=== PATIENT | female | born 1975 | race Caucasian/White ===

== ENCOUNTER → 2018-08-15 15:11 | Outpatient (CLI) | payer BC, SELFPAY | PROVIDERS: Visit Provider Obstetrics & Gynecology | DX: Z12.4 Encounter for screening for malignant neoplasm of cervix (principal) | CPT/HCPCS: 88175; G0145 ==

== ENCOUNTER → 2019-03-04 | Outpatient (CLI) | payer OTHER, SELFPAY | END | disposition home or self-care (01) | LOC: WOBLAB 11:20 | PROVIDERS: Visit Provider Obstetrics & Gynecology | DX: N75.1 Abscess of Bartholin's gland (principal) | CPT/HCPCS: 87070; 87075; 87077; 87186; 87205 ==

== ENCOUNTER → 2019-10-11 | Outpatient (CLI) | payer BC, SELFPAY ==
[2019-10-11 17:23] LABS: Thyroid Stim Hormone (TSH) 1.99 uIU/mL (0.358-3.74)
[2019-10-15 16:52] LABS: HPV Reflexed? NOT INDICATED
== END | disposition home or self-care (01) ==
LOC: LABSPEC 11:29
PROVIDERS: Visit Provider Obstetrics & Gynecology
DX: N92.6 Irregular menstruation, unspecified (principal); Z12.4 Encounter for screening for malignant neoplasm of cervix
CPT/HCPCS: 36415; 84443; 88175; G0145

== ENCOUNTER 2019-12-05 11:19 | Emergency (ER) | payer BC, SELFPAY ==
[2019-12-05 11:20] VITALS: BP 134/67; PULSE 115; RESP 22; TEMP 37.8; O2SAT 97; BMI 20.7
--- NOTE | 2019-12-05 11:43 | ED.DCSUM_ITS ---
- ER Visit Summary Date of Service: 12/05/19 Chief Complaint: Cough, fever and body aches History of Present Illness: The patient is a 44 F no significant past medical history other than C-sections and prior pneumonia. She states yesterday morning she started having fever, nonproductive cough and body aches. She had nausea and vomiting x1 today. Denies diarrhea. No abdominal pain. No dysuria. She has no obvious known exposure her son is a rickshaw driver has transported COVID-19 positive patients. Physical Examination: Middle-aged female. No acute distress. Vital signs stable she does have a low-grade temperature 100.1. She did take antipyretic prior to arrival. She looks like she does not feel well she does not look septic or toxic. HEENT exam unremarkable. Moist with membranes. Posterior pharynx normal. Neck nontender no meningismus. No lymphadenopathy. Lungs cl ear to auscultation bilaterally. No rales, rhonchi or wheezing. Dry cough. Heart tachycardic rate about 110 no murmur. Abdomen soft nontender normal bowel sounds no peritoneal signs. Extremities she moves all 4. She is neurovascular intact. Calves are nontender without edema. No rashes. Back nontender. Neurologically she is awake alert with no focal motor deficits. Test Results: Chest x-ray portable 1 view read by myself and the radiologist shows a right upper lobe pneumonia. Emergency Department Course and Treatment: History and exam are consistent with a respiratory tract infection. Differential would include influenza, viral syndrome or COVID-19. Also pneumonia is in the differential some obtaining a chest x-ray. Discussed x-ray results with patient she is doing well at 12:20 PM. She is comfortable being discharged to home. I did call the [facility] and they are deferring any copious testing which I think is reasonable now that her chest x-ray is consistent with a pneumonia. She will be started on Levaquin and be treated for 5 days. Treatment Plan: Levaquin daily. Alternate Tylenol Motrin for fever. Plenty of fluids and rest. Follow-up if not improving or return emergency department if feeling much worse. Disposition: discharge Impression: Acute fever and cough secondary to right upper lobe pneumonia This note was generated with [employer] dictation software. It may contain incorrect words, spelling, and punctuation that were not noted in review of the chart prior to signing ED Disposition - Plan for ED Patient: Referrals: Yarelis Fitzpatrick DO [Primary Care Provider] -
--- NOTE | 2019-12-05 11:45 | RAD_ITS ---
STUDY: X-RAY CHEST REASON FOR EXAM: Female, 44 years old. FEVER, COUGH, FATIGUE, BODY ACHES X24 HOURS TECHNIQUE: Single AP portable view of the chest. COMPARISON: None. FINDINGS: Ill-defined airspace opacity is seen in the right upper lobe suggesting pneumonia. There is no demonstrated pleural abnormality. Normal size heart. Normal mediastinum and shay. Normal visualized pulmonary arteries. Normal visualized aortic arch and descending thoracic aorta. Normal visualized thoracic spine. Normal visualized ribs, clavicles, and shoulders. There is no demonstrated abnormality of the visualized soft tissue structures of the upper abdomen. RAD/Chest 1 View (Portable) IMPRESSION: Right upper lobe pneumonia. Electronically Signed: Les Lynch, at 12:06 EDT Tel , Service support ,
[2019-12-05 12:03] VITALS: BP 134/67; PULSE 115; RESP 22; TEMP 37.8; O2SAT 97
--- NOTE | 2019-12-05 12:24 | ED.DEP ---
ED Disposition - Plan for ED Patient: Disposition: Home or Assisted Living Instructions: ED PNEUMONITIS Adult Prescriptions: Levofloxacin [Levaquin] 750 mg PO DAILY #4 tab Prescription Printed Referrals: Yarelis Fitzpatrick DO [Primary Care Provider] - 1 Week if not improving Additional Instructions: Plenty of fluids and rest. Alternate Tylenol Motrin for fever or body aches. Levaquin daily for a total of 5 days you were given your first dose here so he can start that tomorrow. Follow-up with your doctor if not improving return to the emergency department if you feel much worse.
[2019-12-05] MEDS: levoFLOXacin 750 MG Tablet PO (12:40)
--- NOTE | 2019-12-05 12:44 | NURSING ---
DR XIAO PAGED
== END 2019-12-05 12:45 | disposition home or self-care (01) ==
LOC: ED 12:39
PROVIDERS: Emergency Provider Emergency Medicine; PCP Internal Medicine
DX: J18.9 Pneumonia, unspecified organism (principal)
CPT/HCPCS: 71045; 87804; 99282

== ENCOUNTER → 2019-12-23 14:11 | Outpatient (CLI) | payer BC, SELFPAY ==
[2019-12-05 11:20] VITALS: BMI 20.7
--- NOTE | 2019-12-23 14:13 | CT_ITS ---
STUDY: CT CHEST WITH CONTRAST REASON FOR EXAM: Female, 44 years old. IMMUNODEFICIENCY -- PNEUMONIA X3 WKS AGO -- NEG COVED TEST RADIATION DOSAGE (If Supplied By Facility): CTDIvol = ( 9.97 ) mGy, DLP = ( 5.67 ) mGycm TECHNIQUE: Transaxial imaging was performed following intravenous administration of IV 100mL Isovue-300. Multiplanar coronal and sagittal images were reformatted. Individualized dose optimization techniques were used for this CT. COMPARISON: Comparison is made with prior study dated February 25, 2013 and prior radiograph dated December 05, 2019. FINDINGS: Infiltration in the posterior segment of the right upper lobe. This has progressed as compared to prior CT scan. Mild increased markings in the posterior aspect of the left upper lobe. There is a noncalcified 6.8 mm nodule in the medial portion of the left upper lobe. There is also evidence of a 5.3 mm nodule in the superior segment of the right upper lobe as seen on axial image #35. This also exhibit increased markings with areas of confluence in the anterior aspect of the right middle lobe. This has progressed as compared to prior study. 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 This is unchanged. There is no demonstrated pleural abnormality. Normal heart and pericardium. Normal mediastinum. Normal hilar regions. Normal enhanced pulmonary arteries. Normal aorta arch and descending thoracic aorta. Normal osseous structures. There is no demonstrated abnormality of the visualized upper abdomen. CT/Chest WITH Contrast IMPRESSION: Interval increase in infiltration in the right upper lobe as described. Stable examination otherwise. Electronically Signed: Luis Rossi, at 15:15 EDT , Service support ,
== END ==
PROVIDERS: PCP Internal Medicine; Referring Provider Nurse Practitioner; Visit Provider Nurse Practitioner
DX: D84.9 Immunodeficiency, unspecified (principal)
CPT/HCPCS: 71260; Q9967

== ENCOUNTER 2020-09-12 09:57 | Emergency (ER) | payer BC, SELFPAY ==
[2020-09-12 10:00] VITALS: BP 156/95; PULSE 106; RESP 17; TEMP 38.5; O2SAT 96; BMI 22.9
--- NOTE | 2020-09-12 10:17 | RAD_ITS ---
STUDY: X-RAY CHEST REASON FOR EXAM: Female, 45 years old. Cough and fever. Body aches. COVID 19 infection June. TECHNIQUE: Single AP portable view of the chest. COMPARISON: Chest, 12/05/2019. FINDINGS: The lungs are well-expanded. There is persistent scarring in the right lung apex unchanged from prior study. There is no new infiltrate or mass. There is no demonstrated pleural abnormality. Normal size heart. Normal mediastinum and shay. Normal visualized pulmonary arteries. Normal visualized aortic arch and descending thoracic aorta. The thoracic spine is obscured by the mediastinum. Normal visualized ribs, clavicles, and shoulders. There is no demonstrated abnormality of the visualized soft tissue structures of the upper abdomen. RAD/Chest 1 View (Portable) IMPRESSION: Stable scarring in the right lung apex. There is no acute cardiopulmonary disease. Electronically Signed: David Loyola DO at 11:24 EST Tel [phone], Service support ,
--- NOTE | 2020-09-12 10:20 | ED.DCSUM_ITS ---
- ER Visit Summary Date of Service: 09/12/20 Chief Complaint: Fever, cough and body aches. History of Present Illness: The patient is a 45 F past medical history of episodes of pneumonia in the past and prior pleural effusion from pneumonia. They states since she has had a fever as high as 103 with diffuse body aches. Cough of green sputum. Mild nausea. No diarrhea no dysuria. She actually states she had very limited symptomatic Covid in June. She went to an urgent care had a cough and was told she tested Covid positive. She denies any abdominal pain. She has chest pain with coughing. She has no history of DVT or PE. She has had no recent travel, surgery or immobilization. No leg pain or swelling. No hemoptysis. Physical Examination: Middle-aged female vital signs stable she does have a temperature 101.3. Pulse ox 96% on room air no signs of hypoxia. H EENT exam unremarkable. Neck nontender no lymphadenopathy. Lungs dry cough but no rales, rhonchi or wheezing. Equal symmetrical. Heart tachycardic rate about 110 no murmur. Abdomen soft nontender normal bowel sounds no peritoneal signs. Patient moving all 4 extremities. Calves nontender without edema or cords. Neurologically she is awake alert with no focal motor deficits. Back nontender. Skin is unremarkable. Test Results: X-ray portable 1 view interpreted by myself shows right upper lung scar tissue but I do believe there may be a right upper lobe infiltrate also. It does appear to be some unchanged from prior chest x-ray. Normal cardiac silhouette mediastinum. Radiologist also read the film he believes is scar tissue. However the patient does have a fever and a cough and symptoms consistent with pneumonia so clinically I do think this is pneumonia. CBC shows an elevated white count of 25,000 hemoglobin 14 no bands chemistries normal normal creatinine and gap. Influenza test was negative. COVID-19 was negative also. That was the rapid antigen. Repeat exam patient is feeling better after IV fluids and IV Toradol. Repeat exam at 12:15 PM she is resting more comfortably. She had I discussed all of her test results and had previously gone over the x-ray with her she also feels she has pneumonia and she has had numerous times in the past. She will be started on Levaquin in the emergency department p.o. and she is comfortable being discharged home. Her vital signs are stable and she is nonhypoxic. Emergency Department Course and Treatment: Middle-aged female with symptoms most likely consistent with pneumonia or bronchitis. She will be retested for Covid and also influenza. She will receive IV fluids and Toradol for fever and body aches. Treatment Plan: For outpatient pneumonia with Levaquin daily. Tylenol and Motrin. Plenty of fluids and rest. Follow-up if not improving. Return if feeling worse for possible admission. Disposition: Discharge Impression: Acute fever and body aches secondary to right upper lobe pneumonia Leukocytosis This note was generated with [employer] dictation software. It may contain incorrect words, spelling, and punctuation that were not noted in review of the chart prior to signing ED Disposition - Plan for ED Patient: Referrals: Yarelis Fitzpatrick DO [Primary Care Provider] -
[2020-09-12] MEDS: Ketorolac 30 MG/ML Syringe IV (10:47)
[2020-09-12] MEDS: 0.9% Normal Saline 1,000 ML 1000 ML IV (10:47)
[2020-09-12 10:48] VITALS: BP 162/83; PULSE 106; RESP 28
[2020-09-12 11:06] LABS: Absolute Lymphocyte Count 1.33 X10^3/uL (0.83-4.51); Basophil# 0.06 X10^3/uL; Basophil% 0.2 % (0-1); Eosinophil# 1.79 X10^3/uL; Eosinophils% 7.1 % (0-5); Hematocrit 42.6 % (37-47); Hemoglobin 14.1 g/dL (12.0-15.0); Lymphocyte # 1.33 X10^3/ul (4.0); Lymphocyte % 5.2 % (19-41); Mean Corp Hgb Conc 33.1 g/dL (32-36); Mean Corpuscular Hgb 27.4 pg (27.0-32.0); Mean Corpuscular Volume 82.9 fL (81-99); Mean Platelet Vol. 9.9 fl (6.2-12.0); Monocyte# 2.01 X10^3/uL; Monocyte% 7.9 % (0-10); NRBC Flagged by Analyzer 0 % (0-5); Neutrophil % 78.9 % (47-70); POSITIVE DIFFERENTIAL YES; POSITIVE MORPHOLOGY YES; Platelet Count 358 K/mm3 (150-450); RBC Distribution Width CV 13.8 % (11.6-14.6); RBC Distribution Width SD 41.9 fl (35.1-43.9); Red Blood Count 5.14 M/mm3 (4.2-5.4); White Blood Count 25.4 K/mm3 (4.4-11.0)
[2020-09-12 11:20] LABS: Anion Gap 9 (5-15); BUN 11 mg/dL (7-18); BUN/Creat Ratio 14.7 RATIO (10-20); Chloride 101 mmol/L (98-107); Creatinine, Serum 0.75 mg/dL (0.55-1.02); Differential Indicated SCAN CRITERIA MET; EST Glomerular Filtration Rate 89 mL/min (>60); Est Glom Filt Rate - Afr Amer 107 mL/min (>60); Estimated Creatinine Clearance 86.81 ml/min; Glucose 86 mg/dL (74-106); Potassium 3.8 mmol/L (3.5-5.1); Sodium Level 136 mmol/L (136-145)
[2020-09-12 11:31] LABS: Differential Comment SCANNED
[2020-09-12 12:13] VITALS: BP 144/80; PULSE 101; RESP 26
--- NOTE | 2020-09-12 12:21 | ED.DEP ---
ED Disposition - Plan for ED Patient: Disposition: Home or Assisted Living Instructions: ED Pneumonia (Adult) Prescriptions: Levofloxacin [Levaquin] 750 mg PO DAILY #6 tab Prescription Printed Referrals: Yarelis Fitzpatrick DO [Primary Care Provider] - 3-5 Days Additional Instructions: Plenty of fluids and rest. Tylenol and Motrin for fever and body aches. Follow-up your primary care physician next 3 to 5 days to ensure you are improving. Return emergency department if you are feeling a lot worse. The antibiotic Levaquin once a day till finished.
[2020-09-12] MEDS: levoFLOXacin 750 MG Tablet PO (12:31)
[2020-09-12 12:32] VITALS: BP 144/81; PULSE 96; RESP 24; O2SAT 92
== END 2020-09-12 12:36 | disposition home or self-care (01) ==
PROVIDERS: Emergency Provider Emergency Medicine; PCP Internal Medicine
DX: J18.9 Pneumonia, unspecified organism (principal); D72.829 Elevated white blood cell count, unspecified; Z87.01 Personal history of pneumonia (recurrent); Z79.899 Other long term (current) drug therapy
CPT/HCPCS: 71045; 80048; 85025; 87426; 87804; 96361; 96374; 99285; J7030

== ENCOUNTER → 2021-03-31 09:35 | Outpatient (CLI) | payer BC, SELFPAY ==
--- NOTE | 2021-03-30 16:30 | BI_ITS ---
MAMMOGRAPHY - BILATERAL SCREENING REASON FOR EXAM: Female, 45 years old. Routine annual screening examination. PERTINENT HISTORY: Non-contributory. TECHNIQUE: Digital bilateral breast pierce (3D mammographic acquisition) in the CC and MLO projections. 2-D mediolateral oblique (MLO) and craniocaudad (CC) views of both breasts were obtained. An exaggerated craniocaudad view of the right breast was obtained as well. CAD: Full Field Digital Mammography with Computer Added Detection was performed. COMPARISON: Comparison is made with prior study dated 01/05/2017 and 12/18/2014. FINDINGS: Breast Composition: The breasts are extremely dense, which lowers the sensitivity of mammography. There is a 2.9 cm x 2.5 cm well-defined nodular density in the the lateral axillary region of the right breast. Correlation with ultrasound is recommended. No other significant abnormalities are identified. BI/SCRN MAMM (CAD)W/PIERCE BILAT IMPRESSION: 2.5 cm x 2.9 cm well-defined nodular density in the axillary region of the right breast as described. Correlation with ultrasound is recommended. ASSESSMENT CATEGORY: BIRADS Category 0: Incomplete. Need additional imaging evaluation. A letter regarding these results will be sent to the patient by the facility within 30 days. Approximately 10% of breast cancers are not detected by mammography. A normal mammogram should not delay biopsy of a clinically suspicious abnormality. [id number] Electronically Signed: Luis Rossi MD at 8:20 EDT , Service support ,
== END ==
PROVIDERS: PCP Internal Medicine; Referring Provider Obstetrics & Gynecology; Visit Provider Obstetrics & Gynecology
DX: Z12.31 Encounter for screening mammogram for malignant neoplasm of breast (principal)
CPT/HCPCS: 77063; 77067

== ENCOUNTER → 2021-04-01 09:05 | Outpatient (CLI) | payer BC, SELFPAY ==
--- NOTE | 2021-04-01 09:08 | US_ITS ---
STUDY: ULTRASOUND BREAST - RIGHT REASON FOR EXAM: Female, 45 years old. Abnormal screening mammogram. TECHNIQUE: Axial and longitudinal images of the RIGHT breast were performed with a high resolution ultrasound transducer. # OF IMAGES: 23 COMPARISON: Comparison is made with prior mammogram dated 03/30/2021. FINDINGS: RIGHT Breast: The mammographic abnormality corresponds to a 2.4 cm x 2.5 cm x 1.7 cm cyst at the 9 to 10 o''clock position of the breast. This is at 6 cm from the nipple. US/Breast Limited Unilateral IMPRESSION: The mammographic abnormality corresponds to 2.4 cm x 2.5 cm x 1.7 cm cyst. ASSESSMENT CATEGORY: BIRADS Category 2: Benign. A letter regarding these results will be sent to the patient by the facility within 30 days. Electronically Signed: Luis Rossi MD at 9:40 EDT , Service support ,
== END ==
PROVIDERS: PCP Internal Medicine; Referring Provider Obstetrics & Gynecology; Visit Provider Obstetrics & Gynecology
DX: N63.10 Unspecified lump in the right breast, unspecified quadrant (principal)
CPT/HCPCS: 76642

== ENCOUNTER → 2022-04-08 | Outpatient (CLI) | payer OTHER, SELFPAY ==
--- NOTE | 2022-04-08 08:22 | BI_ITS ---
MAMMOGRAPHY - BILATERAL SCREENING REASON FOR EXAM: Female, 46 years old. Routine annual screening examination. PERTINENT HISTORY: Non-contributory. TECHNIQUE: Digital bilateral breast pierce (3D mammographic acquisition) in the CC and MLO projections. 2-D mediolateral oblique (MLO) and craniocaudad (CC) views of both breasts were obtained. CAD: Full Field Digital Mammography with Computer Added Detection was performed. COMPARISON: Comparison is made with prior study of 03/30/2021 and 01/05/2017. FINDINGS: Breast Composition: The breasts are extremely dense, which lowers the sensitivity of mammography. The previously seen nodular density in the axillary region of the right breast has decreased in size. It presently measures 1.8 cm x 1.9 cm. Prior ultrasound demonstrated this to be a cyst. No other significant abnormalities are identified. BI/SCRN MAMM (CAD)W/PIERCE BILAT IMPRESSION: Interval decrease in size of the nodular density in the axillary region of the right breast. Yearly follow-up mammogram recommended. (A) ASSESSMENT CATEGORY: BIRADS Category 2: Benign. A letter regarding these results will be sent to the patient by the facility within 30 days. Approximately 10% of breast cancers are not detected by mammography. A normal mammogram should not delay biopsy of a clinically suspicious abnormality. [id number] Electronically Signed: Luis Rossi MD at 9:29 EDT ,
== END | disposition home or self-care (01) ==
PROVIDERS: PCP Internal Medicine; Visit Provider Obstetrics & Gynecology
DX: Z12.31 Encounter for screening mammogram for malignant neoplasm of breast (principal)
CPT/HCPCS: 77063; 77067

== ENCOUNTER → 2022-04-26 | Outpatient (CLI) | payer OTHER, SELFPAY ==
--- NOTE | 2022-04-26 17:50 | RAD_ITS ---
STUDY: X-RAY CHEST REASON FOR EXAM: Female, 46 years old patient with asthmatic bronchitis. TECHNIQUE: PA and lateral views of the chest. COMPARISON: Chest radiograph dated 09/12/2020. FINDINGS: The lungs are hyperexpanded. There is prominence of bronchovascular markings. There is patchy left basilar groundglass attenuation and may represent pneumonia. There is no demonstrated pleural abnormality. Normal size heart. Normal mediastinum and shay. Normal visualized pulmonary arteries. Normal visualized aortic arch and descending thoracic aorta. There is demineralization of the osseous structures. Normal visualized ribs, clavicles, and shoulders. There is no demonstrated abnormality of the visualized soft tissue structures of the upper abdomen. RAD/Chest PA and Lateral IMPRESSION: Left basilar airspace disease suggests possible pneumonia. Electronically Signed: Mónica Werner MD at 4:43 EDT ,
== END | disposition home or self-care (01) ==
LOC: RAD 17:46
PROVIDERS: PCP Internal Medicine; Referring Provider Nurse Practitioner Family; Visit Provider Nurse Practitioner Family
DX: J45.909 Unspecified asthma, uncomplicated (principal)
CPT/HCPCS: 71046

== ENCOUNTER 2022-11-06 22:00 | Emergency (ER) | payer OTHER, SELFPAY ==
[2022-11-06 22:01] VITALS: BP 194/94; PULSE 93; RESP 16; TEMP 36.6; O2SAT 99; BMI 23.3
[2022-11-06 22:34] LABS: Bacteria 0 SEEN /hpf (None Seen); Mucous, Urine 0 SEEN /hpf (<or=2+); White Blood Cells 0 SEEN /hpf (0-5)
[2022-11-06 22:36] LABS: Absolute Lymphocyte Count 3.22 X10^3/uL (0.83-4.51); Absolute Neutrophil Count 8.5 X10^3/uL (2.0-7.7); Basophil# 0.06 X10^3/uL; Basophil% 0.5 % (0-1); Hematocrit 43.7 % (37-47); Hemoglobin 13.9 g/dL (12.0-15.0); Lymphocyte # 3.22 X10^3/ul (0.83-4.51); Lymphocyte % 25.4 % (19-41); Mean Corp Hgb Conc 31.8 g/dL (32-36); Mean Corpuscular Hgb 26.5 pg (27.0-32.0); Mean Corpuscular Volume 83.4 fL (81-99); Mean Platelet Vol. 9.2 fl (6.2-12.0); Monocyte# 0.86 X10^3/uL; Monocyte% 6.8 % (0-10); NRBC Flagged by Analyzer 0 % (0-5); Neutrophil # 8.48 X10^3/uL (2.7-7.7); Neutrophil % 66.8 % (47-70); Platelet Count 502 K/mm3 (150-450); RBC Distribution Width CV 14.6 % (11.6-14.6); Red Blood Count 5.24 M/mm3 (4.2-5.4); White Blood Count 12.7 K/mm3 (4.4-11.0)
[2022-11-06 22:42] LABS: Color, Urine Yellow (Yellow); Glucose, Dipstick 50 mg/dl (Normal); Ketone-Dipstick Negative (Negative); Leukocyte Esterase-Dipstick Negative /ul (Negative); Nitrite-Dipstick Negative (Negative); Occult Blood-Urine 10 /ul (Negative); Protein-Dipstick 30 mg/dl (Negative); Urine Bilirubin Dipstick Negative (Negative); Urine Clarity Sl. Cloudy (Clear); Urine Urobilinogen 1 mg/dl (Normal); Urine pH 6.5 (5.0 - 8.0)
[2022-11-06 22:44] LABS: Amorphous Sediment 1+ URATE; Red Blood Cells-Urine 0-5 SEEN /hpf (0-5); Squamous Epithelial Cells - UA 0-5 SEEN /hpf (5-10)
[2022-11-06 22:46] LABS: Internal QC Validated? YES +Cl - CLEAR BKGD; Pregnancy, Serum, hCG Quali. NEGATIVE Negative
[2022-11-06 22:49] LABS: Anion Gap 8 (5-15); BUN 11 mg/dL (7-18); BUN/Creat Ratio 14.5 RATIO (10-20); Calcium,Total 9.6 mg/dL (8.5-10.1); Chloride 107 mmol/L (98-107); Creatinine, Serum 0.76 mg/dL (0.55-1.02); EST Glomerular Filtration Rate 86 mL/min (>60); Est Glom Filt Rate - Afr Amer 104 mL/min (>60); Estimated Creatinine Clearance 83.82 ml/min; Glucose 177 mg/dL (74-106); Potassium 3.6 mmol/L (3.5-5.1); Sodium Level 142 mmol/L (136-145)
--- NOTE | 2022-11-06 23:07 | ED.VIS.GI ---
HPI HPI - GI History of Present Illness Chief Complaint: Abd Pain Narrative Narrative: Patient presenting with left-sided flank and abdominal pain but also states the right side is hurting. She states that it appears to radiate into both hips and down her legs. This started acutely at 1300. She is having difficulty finding a position of comfort. She has not had a fever. She denies any urinary complaints. She states he has a history of kidney stone when she was 16 has not had one since. No constipation or diarrhea. No vaginal complaints. PFSH PFSH Home Medications doxycycline hyclate 100 mg tablet 100 mg PO DAILY 11/06/22 [History Last Taken Unknown] ondansetron 4 mg disintegrating tablet 4 mg PO Q8H PRN PRN Nausea #14 tabs 11/07/22 [Rx Last Taken Unknown] oxycodone-acetaminophen 5 mg-325 mg tablet (Percocet) 1 tab PO Q6H PRN pain 3 days #12 tabs 11/07/22 [Rx Last Taken Unknown] Allergy/AdvReac Type Severity Reaction Status Date / Time No Known Allergies Allergy Verified 11/06/22 22:02 Social History Smoking Status: Never smoker ROS ROS ED Review of Systems ROS Unobtainable: Denies due to encephalopathy Constitutional Constitutional ED: Denies chills or fever(s) ENT ENT ED: Denies rhinorrhea or sore throat Cardiovascular Cardiovascular: Denies palpitations or racing heartbeat Respiratory/Chest Respiratory/Chest: Denies cough or dyspnea Gastrointestinal Gastrointestinal: Reports abdominal pain; Denies diarrhea or melena Genitourinary Genitourinary ED: Denies dysuria Musculoskeletal Musculoskeletal: Reports back pain; Denies arthralgias Integumentary Denies abscess Neurologic Neurologic: Denies headache(s) or paresthesias Psychiatric Psychiatric: Denies anxiety EXAM Physical Exam Const Vital Signs: 11/06/22 22:01 11/07/22 00:00 Temperature 97.8 F Temperature Source Temporal Pulse Rate 93 83 Respiratory Rate 16 16 Blood Pressure 194/94 H 171/88 H Blood Pressure Mean 127 115 Pulse Ox 99 97 Oxygen Delivery Method Room Air Room Air Positive well nourished General Appearance ED: NAD; Negative for pallor HEENT Reports moist mucous membranes normocephalic Eyes PERRL Resp normal respiratory effort Cardio regular rate and regular rhythm GI Palpation: tender LLQ Back/Spine General Back: CVA tenderness left Neuro CN's II-XII intact bilaterally Sensorium / Orientation: alert Motor Exam: strength 5/5 throughout Psych mental status grossly normal Skin General Skin Exam: Negative for jaundice or pallor MDM MDM MDM Narrative Medical decision making narrative: Patient presenting with abdominal pain she states is left greater than right. She has mild CVA tenderness on the left. There is some left lower quadrant tenderness to palpation. This is acute in onset. Differential diagnosis includes kidney stone, ureteral calculi, diverticulitis, colitis, ovarian torsion. Patient medicated with morphine, Zofran, Toradol and her pain did improve. She states it still about a 6 or 7 but it is very tolerable at this point. She is lying comfortably in the bed. CBC obtained to assess white blood cell count, hemoglobin, differential. BMP to assess renal function electrolytes. Serum hCG to assess for . Urinalysis for occult blood and infection. CBC shows a slight elevated white blood cell count at 12.7. Hemoglobin is stable. No left shift. White blood cell count is likely reactive. BMP shows normal renal function electrolytes. Glucose elevated at 177 without anion gap. Urinalysis negative for infection this does show 10 occult blood. At this point I believe the patient had a kidney stone the way she was moving around the room and pacing. CT of the abdomen pelvis with out contrast was obtained and it shows a 2 mm distal ureteral calculi without obstruction. No hydronephrosis. There is no evidence of diverticulitis. The patient 0.5 mg of Dilaudid she still states she was in pain. I did inform her that we do not have urology on-call today and could not get her pain under control we would need to transfer her. She states that even though her pain is still there she believes it is manageable as long as she has pain medication at home. She will be given Percocet and Zofran to go home from the hospital via meds to beds. Return precautions were discussed. Impression: 1. Left ureteral calculi 2. Left flank pain 3. Hematuria Lab Data Labs: Laboratory Results - last 24 hr 11/06/22 11/06/22 11/06/22 22:24 22:24 22:24 WBC 12.7 H RBC 5.24 Hgb 13.9 Hct 43.7 MCV 83.4 MCH 26.5 L MCHC 31.8 L RDW Std Deviation 44.0 H RDW Coeff of Mendy 14.6 Plt Count 502 H MPV 9.2 Immature Gran % (Auto) 0.500 Neut % (Auto) 66.8 Lymph % (Auto) 25.4 [place] % (Auto) 6.8 Eos % (Auto) 0.0 Baso % (Auto) 0.5 Absolute Neuts (auto) 8.5 H Absolute Lymphs (auto) 3.22 Nucleated RBC % 0 Sodium 142 Potassium 3.6 Chloride 107 Carbon Dioxide 27.0 Anion Gap 8 BUN 11 Creatinine 0.76 Estim Creat Clear Calc 83.82 Est GFR (MDRD) Af Amer 104 Est GFR (MDRD) Non-Af 86 BUN/Creatinine Ratio 14.5 Glucose 177 H Calcium 9.6 Serum , Qual NEGATIVE Urine Color Urine Clarity Urine pH Ur Specific [place] Urine Protein Urine Glucose (UA) Urine Ketones Urine Occult Blood Urine Nitrite Urine Bilirubin Urine Urobilinogen Ur Leukocyte Esterase Urine RBC Urine WBC Ur Squamous Epith Cells Amorphous Sediment Urine Bacteria Urine Mucus 11/06/22 22:27 WBC RBC Hgb Hct MCV MCH MCHC RDW Std Deviation RDW Coeff of Mendy Plt Count MPV Immature Gran % (Auto) Neut % (Auto) Lymph % (Auto) [place] % (Auto) Eos % (Auto) Baso % (Auto) Absolute Neuts (auto) Absolute Lymphs (auto) Nucleated RBC % Sodium Potassium Chloride Carbon Dioxide Anion Gap BUN Creatinine Estim Creat Clear Calc Est GFR (MDRD) Af Amer Est GFR (MDRD) Non-Af BUN/Creatinine Ratio Glucose Calcium Serum , Qual Urine Color Yellow Urine Clarity Sl. Cloudy Urine pH 6.5 Ur Specific [place] 1.020 Urine Protein 30 H Urine Glucose (UA) 50 H Urine Ketones Negative Urine Occult Blood 10 H Urine Nitrite Negative Urine Bilirubin Negative Urine Urobilinogen 1 H Ur Leukocyte Esterase Negative Urine RBC 0-5 SEEN Urine WBC 0 SEEN Ur Squamous Epith Cells 0-5 SEEN Amorphous Sediment 1+ URATE Urine Bacteria 0 SEEN Urine Mucus 0 SEEN Radiography Diagnostic Testing: Clinical Impression(s) from Imaging Studies Abdomen/Pelvis CT 11/06/22 23:09 IMPRESSION: 2 mm rounded calcification projected along the course of the mid to distal left ureter, without hydronephrosis or perirenal stranding; this small calcification could represent a nonobstructing ureteral stone, in the appropriate clinical setting, or possibly a calcified phlebolith. Small hiatal hernia. Normal appendix. No findings of small bowel obstruction or diverticulitis. Electronically Signed: Rao Carter MD at 0:01 EDT , Discharge Plan Triage Chief Complaint: Abd Pain ED Provider: Adelfo Solis Dx/Rx/DC Orders Instructions: ED Kidney Stone w/ Colic Prescriptions: New oxycodone-acetaminophen [Percocet] 5-325 mg tablet 1 tab PO Q6H PRN (Reason: pain) 3 Days Qty: 12 0RF ondansetron 4 mg tablet,disintegrating 4 mg PO Q8H PRN PRN (Reason: Nausea) Qty: 14 0RF No Action doxycycline hyclate 100 mg Tablet 100 mg PO DAILY Primary Care Provider: Yarelis Fitzpatrick Referrals: Elisabeth Patricia MD [Med Staff - Active Staff] - As soon as possible Yarelis Fitzpatrick DO [Primary Care Provider] - Disposition Disposition: Home, Self Care
--- NOTE | 2022-11-06 23:09 | CT_ITS ---
EXAM: CT ABDOMEN AND PELVIS WITHOUT INTRAVENOUS CONTRAST CLINICAL INDICATION: left flank pain TECHNIQUE: Helically acquired images were obtained of the abdomen and pelvis without intravenous contrast. This CT exam was performed using one or more of the following dose reduction techniques: automated exposure control, adjustment of the mA and/or kV according to patient size, and/or use of iterative reconstruction technique. This report was created using [employer] report generation technology. RADIATION DOSE: Total DLP: 369.52 mGy-cm. COMPARISON: Chest CT of 12/23/2019. FINDINGS: LOWER THORAX: Minimal bronchiectasis within the posterior lateral aspect of the left lower lobe. No acute basilar pulmonary infiltrates or pleural effusions. No coronary artery calcification is visualized. No significant pericardial effusion. Small hiatal hernia. ABDOMEN: LIVER: Elongated right hepatic lobe measuring 19.7 cm in cephalocaudal dimension. No focal hepatic abnormality. GALLBLADDER AND BILE DUCTS: Unremarkable. No calcified gallstones. No gallbladder distention or wall edema. No intra- or extrahepatic biliary ductal dilation. PANCREAS: Unremarkable. No focal cystic mass. SPLEEN: Unremarkable. Normal size without focal cystic or solid mass. ADRENALS: Unremarkable. No nodules. KIDNEYS AND URETERS: On images 121 and 122 of series 2, a 2 mm rounded calcification is projected along the course of the mid to distal left ureter, without associated proximal ureteral dilatation. Additional calcified phleboliths are noted within the pelvis. The kidneys are normal in size and shape. No hydronephrosis, renal calculi or perirenal stranding. STOMACH AND BOWEL: Unremarkable. No stomach or bowel distention. No focal inflammatory change. PELVIS: APPENDIX: No evidence of acute appendicitis. BLADDER: Partially distended urinary bladder is unremarkable. REPRODUCTIVE: Uterus is mildly prominent. Multiple metallic densities are seen in the right adnexa consistent with previous tubal ligation. No metallic densities are seen in the left adnexa. No adnexal mass. ABDOMEN and PELVIS: INTRAPERITONEAL SPACE: Unremarkable. No ascites or other fluid collection. No free air. BONES/JOINTS: Unremarkable. No suspicious lytic or blastic abnormality. No acute osseous abnormality. SOFT TISSUES: Small fat-filled umbilical hernia. VASCULATURE: Minimally calcific abdominal aorta which is normal in caliber. No AAA. LYMPH NODES: Scattered tiny nonspecific mesenteric lymph nodes are present. No adenopathy. CT/Abdomen/Pelvis without Cont IMPRESSION: 2 mm rounded calcification projected along the course of the mid to distal left ureter, without hydronephrosis or perirenal stranding; this small calcification could represent a nonobstructing ureteral stone, in the appropriate clinical setting, or possibly a calcified phlebolith. Small hiatal hernia. Normal appendix. No findings of small bowel obstruction or diverticulitis. Electronically Signed: Rao Carter MD at 0:01 EDT ,
[2022-11-06] MEDS: Morphine 4 MG/ML Syringe IV (23:11)
[2022-11-06] MEDS: Ketorolac 15 MG/ML Vial IV (23:11)
[2022-11-06] MEDS: Ondansetron 4 MG/2 ML Vial IV (23:11)
[2022-11-07] VITALS: BP 171/88; PULSE 83; RESP 16; O2SAT 97
[2022-11-07] MEDS: HYDROmorphone 0.5 MG/0.5 ML SYRINGE IV (00:42)
[2022-11-07 00:57] VITALS: BP 168/88; PULSE 88; RESP 16; TEMP 36.9
== END 2022-11-07 01:32 | disposition home or self-care (01) ==
PROVIDERS: Emergency Provider Student in an Organized Health Care Education/Training Program; PCP Internal Medicine; Visit Provider Student in an Organized Health Care Education/Training Program
DX: N20.1 Calculus of ureter (principal)
CPT/HCPCS: 74176; 80048; 81001; 84703; 85025; 96374; 96375; 99283; A4216; J2405

== ENCOUNTER → 2023-01-02 | Outpatient (CLI) | payer OTHER, SELFPAY ==
--- NOTE | 2023-01-02 17:46 | CT_ITS ---
INDICATION: Cough. EXAMINATION: CT CHEST WITH CONTRAST - CT Chest W/ Contrast Injection TECHNIQUE: Helically acquired images were obtained of the chest following IV contrast. A radiation dose optimization technique was used for this scan. IV Contrast dosage and agent: 100 mL [id number] COMPARISON: December 23, 2019., February 25, 2013 FINDINGS: LUNGS, PLEURA AND LARGE AIRWAYS: Mild diffuse peribronchial thickening with lateral left lower lobe endobronchial mucus or debris. Mild bilateral apical: Peripheral upper lobe scarring. Medial right middle lobe atelectasis or scarring. No other consolidation. No effusion. No pneumothorax. THYROID: No thyroid lesions within the study [id number]. HEART AND PERICARDIUM: Heart size is normal. No pericardial effusion. No densely calcified coronary atherosclerosis. VESSELS: Thoracic aorta is not dilated. No aortic dissection. No obvious central pulmonary embolism although this study was not performed with the pulmonary embolism protocol. MEDIASTINUM AND DONIS: There are a few scattered inferior mediastinal lymph nodes adjacent to the distal esophagus. No other mediastinal adenopathy. Few bilateral subcentimeter short axis hilar lymph nodes are present. Esophagus is unremarkable. Small hiatal hernia.. UPPER ABDOMEN: No acute pathology. BONES: No suspicious lytic or blastic abnormality. CT/Chest WITH Contrast IMPRESSION: Bilateral apical and upper lobe peripheral linear atelectasis or scarring. Chronic basilar bronchiectasis with new peribronchial thickening compatible with acute bronchitis/bronchiolitis. Mild associated endobronchial mucus or debris in the lateral left lower lung. No evidence of consolidative pneumonia. Small reactive inferior mediastinal and bilateral hilar lymph nodes. Small hiatal hernia. Electronically Signed: Ugo Oakes MD at 4:28 EDT ,
== END | disposition home or self-care (01) ==
PROVIDERS: PCP Internal Medicine; Referring Provider Internal Medicine; Visit Provider Internal Medicine
DX: R05.3 Chronic cough (principal)
CPT/HCPCS: 71260; Q9967

== ENCOUNTER → 2023-01-24 | Outpatient (CLI) | payer OTHER, SELFPAY | END | disposition home or self-care (01) | LOC: LABSPEC 09:28 | PROVIDERS: PCP Internal Medicine; Referring Provider Internal Medicine Critical Care Medicine; Visit Provider Internal Medicine Critical Care Medicine | DX: J47.9 Bronchiectasis, uncomplicated (principal) | CPT/HCPCS: 87070; 87205 ==

== ENCOUNTER 2023-03-13 22:33 | Emergency (ER) | payer OTHER, SELFPAY ==
[2023-03-13 22:34] VITALS: BP 162/84; PULSE 84; RESP 26; TEMP 36.5; BMI 21.4
--- NOTE | 2023-03-13 22:47 | CT_ITS ---
EXAM: CT ABDOMEN AND PELVIS WITHOUT INTRAVENOUS CONTRAST CLINICAL INDICATION: Kidney Stone -- Postmenopausal TECHNIQUE: Helically acquired images were obtained of the abdomen and pelvis without intravenous contrast. This CT exam was performed using one or more of the following dose reduction techniques: automated exposure control, adjustment of the mA and/or kV according to patient size, and/or use of iterative reconstruction technique. RADIATION DOSE: CTDIvol = 6.25 mGy, DLP = 291.79 mGy-cm COMPARISON: 01/06/2023. FINDINGS: LOWER THORAX: Moderate hiatal hernia. Lung bases are clear. No cardiomegaly. No significant pericardial effusion. ABDOMEN: LIVER: Unremarkable. Homogeneous. GALLBLADDER AND BILE DUCTS: Unremarkable. No calcified gallstones. No gallbladder distention or wall edema. No intra- or extrahepatic biliary ductal dilation. PANCREAS: Unremarkable. No focal cystic mass. SPLEEN: Unremarkable. Normal size without focal cystic or solid mass. ADRENALS: Unremarkable. No nodules. KIDNEYS AND URETERS: Unremarkable. Normal renal size and position. No hydronephrosis. STOMACH AND BOWEL: Unremarkable. No stomach or bowel distention. No focal inflammatory change. PELVIS: APPENDIX: Normal appendix. BLADDER: Unremarkable. REPRODUCTIVE: Surgical clips in the right adnexa unchanged. ABDOMEN and PELVIS: INTRAPERITONEAL SPACE: Unremarkable. No ascites or other fluid collection. No free air. BONES/JOINTS: Unremarkable. No suspicious lytic or blastic abnormality. SOFT TISSUES: Unremarkable. No discrete abdominal or pelvic wall hernia. VASCULATURE: Calcifications in the pelvis likely represent phleboliths. Abdominal aorta is non-dilated. LYMPH NODES: Unremarkable. No enlarged lymph nodes. CT/Abdomen/Pelvis without Cont IMPRESSION: 1. No acute abdominal pelvic abnormality. 2. Moderate hiatal hernia. Electronically Signed: Santos Caro MD at 23:38 EDT ,
[2023-03-13] MEDS: Ketorolac 15 MG/ML Vial IV (23:02)
[2023-03-13] MEDS: 0.9% Normal Saline 1,000 ML 250 ML IV (23:02)
[2023-03-13 23:17] LABS: Anion Gap 6 (5-15); BUN 11 mg/dL (7-18); Calcium,Total 9.2 mg/dL (8.5-10.1); Chloride 108 mmol/L (98-107); Creatinine, Serum 0.85 mg/dL (0.55-1.02); EST Glomerular Filtration Rate 76 mL/min (>60); Est Glom Filt Rate - Afr Amer 91 mL/min (>60); Estimated Creatinine Clearance 74.95 ml/min; Glucose 117 mg/dL (74-106); Potassium 3.7 mmol/L (3.5-5.1); Sodium Level 140 mmol/L (136-145)
--- NOTE | 2023-03-13 23:30 | EDS_ITS ---
HPI History of Present Illness Chief Complaint: Flank Pain Detail of Chief Complaint: Prompt onset of flank pain with urgency Informant: patient Onset/Context/Timing Onset: Today (1699) Context: Sudden Onset Timing: Continuous and Waxes and wanes Quality: Pain Location: Low left Current Severity: Severe Maximum Severity: Severe Worsened by: Nothing Relieved by: Nothing Associated Symptoms Associated Symptoms: Urgency Narrative Narrative: Patient is a 47-year-old woman who was seen earlier this year for nonobstructing left ureteral stone mid ureter. Size was 2 mm. No other abnormalities noted on the scan. She presents with abrupt onset of flank pain with urgency. She cannot find a position of comfort. She does report nausea. Denies vomiting diarrhea. She denies dysuria or hematuria. She denies fever or chills. There is no history of trauma. She states this feels like prior kidney stone. She has had 2 prior kidney stones. Prior similar symptoms: Yes Recent Illness/Hospitalization: No PFSH PFSH Medical History (Updated 03/14/23 @ 00:[address] Mike Mai MD) Immune deficiency disorder Home Medications albuterol sulfate 90 mcg/actuation aerosol inhaler 2 puff inhalation Q6H PRN 01/24/23 [History Last Taken Unknown] levofloxacin 500 mg tablet 500 mg PO DAILY x14 days 01/24/23 [History Last Taken Unknown] hydrocodone-acetaminophen 5-325mg 5mg-325mg 1 tab PO Q6H PRN PRN Pain 3 days #10 TABLETS 03/14/23 [Rx Last Taken Unknown] Allergy/AdvReac Type Severity Reaction Status Date / Time No Known Allergies Allergy Verified 03/13/23 22:38 Social History (Updated 03/13/23 @ 23:[address] Mike Mai MD) household members: spouse Smoking Status: Never smoker substance use type: does not use ROS ROS ED Constitutional Constitutional ED: Denies chills, fever(s), subjective, sweats or weight loss Cardiovascular Cardiovascular: Denies chest pain or palpitations Respiratory/Chest Respiratory/Chest: Denies cough, dyspnea or dyspnea on exertion Gastrointestinal Gastrointestinal: Reports nausea; Denies abdominal pain, diarrhea or vomiting Genitourinary Genitourinary ED: Reports urinary frequency and other Details: Postmenopausal ; Denies dysuria or hematuria Musculoskeletal Musculoskeletal: Reports back pain; Denies arthralgias or myalgias Integumentary Denies rash Neurologic Neurologic: Denies headache(s) or paresthesias Psychiatric Psychiatric: Denies anxiety or depression Endocrine Endocrinology: Denies cold intolerance or heat intolerance Hematologic/Lymphatic Hematologic/Lymphatic: Reports systems reviewed and no addt'l complaints, except as documented EXAM Physical Exam Const Vital Signs: 03/13/23 22:34 03/13/23 22:34 Temperature 97.7 F L 97.7 F L Temperature Source Temporal Temporal Pulse Rate 84 84 Respiratory Rate 26 H 26 H Blood Pressure 162/84 H 162/84 H Blood Pressure Mean 110 110 Positive well nourished and well developed Constitutional Narrative: Patient is in obvious discomfort pacing the room. General Appearance ED: well developed; Negative for cyanotic or diaphoretic HEENT Reports moist mucous membranes HEENT Narrative: Head is atraumatic normocephalic. Ears normal. Eyes PERRL and EOMs intact bilaterally General Eye ED: Negative for pale conjunctiva or scleral icterus Neck no lymphadenopathy, supple and no JVD Resp normal respiratory effort and clear to auscultation bilaterally Cardio regular rate, regular rhythm, S1 normal heart sound, S2 normal heart sound and no murmurs GI normal to inspection, nondistended, normoactive bowel sounds, non-tender, non- distended and no masses; Negative for hepatosplenomegaly Back/Spine no CVA tenderness Cervical Spine: cervical spine tenderness Thoracic Spine / Upper Back: thoracic spinal tenderness Lumbar Spine / Lower Back: lumbar spinal tenderness Extremity normal to inspection Neuro oriented x3, CN's II-XII intact bilaterally and no sensory deficits noted Sensorium / Orientation: alert Psych mental status grossly normal Skin no rashes or lesions noted and skin turgor normal MDM MDM MDM Narrative Medical decision making narrative: Prior history of renal and ureteral stone with abrupt onset of pain urgency and unable to find position of comfort suspect patient has obstructing ureteral stone. CT was obtained. UA was obtained to rule out infection. CBC and electrolyte panel was obtained. [place] panel was obtained to assess renal function since she is 47 years of age. CBC to assess white count differential. Especially in light of her having history of immunoglobulin deficiency. Lab Data Attestation: I reviewed the patient's lab results. Lab results narrative: White count and differential is unremarkable. There is a lymphocytosis. Electrolyte panel is remarkable for glucose of 117 with a normal CO2 anion gap. UA is negative. Labs: Laboratory Results - last 24 hr 03/13/23 03/13/23 23:00 23:45 WBC 10.4 RBC 5.22 Hgb 14.1 Hct 43.0 MCV 82.4 MCH 27.0 MCHC 32.8 RDW Std Deviation 41.5 RDW Coeff of Mendy 13.9 Plt Count 394 MPV 10.0 Immature Gran % (Auto) 0.900 Neut % (Auto) 45.9 L Lymph % (Auto) 43.5 H Chaves % (Auto) 8.0 Eos % (Auto) 1.0 Baso % (Auto) 0.7 Absolute Neuts (auto) 4.8 Absolute Lymphs (auto) 4.52 H Nucleated RBC % 0 Sodium 140 Potassium 3.7 Chloride 108 H Carbon Dioxide 26.0 Anion Gap 6 BUN 11 Creatinine 0.85 Estim Creat Clear Calc 74.95 Est GFR (MDRD) Af Amer 91 Est GFR (MDRD) Non-Af 76 BUN/Creatinine Ratio 13.0 Glucose 117 H Calcium 9.2 Urine Color Straw Urine Clarity Clear Urine pH 8.0 Ur Specific [place] 1.010 Urine Protein Negative Urine Glucose (UA) Normal Urine Ketones Negative Urine Occult Blood Negative Urine Nitrite Negative Urine Bilirubin Negative Urine Urobilinogen Normal Ur Leukocyte Esterase 100 H Urine RBC 0 SEEN Urine WBC 0-5 SEEN Ur Squamous Epith Cells 0-5 SEEN Urine Bacteria 0 SEEN Urine Mucus 0 SEEN Radiography Diagnostic Testing: Clinical Impression(s) from Imaging Studies Abdomen/Pelvis CT 03/13/23 22:47 IMPRESSION: 1. No acute abdominal pelvic abnormality. 2. Moderate hiatal hernia. Electronically Signed: Santos Caro MD at 23:38 EDT , Treatment and Re-Evaluation :: Was informed the cause of her pain is unknown. She does have a hiatal hernia. Discharge Plan Triage Chief Complaint: Flank Pain ED Provider: Mike Mai Dx/Rx/DC Orders Clinical Impression: Bilateral flank pain, Immunoglobulin deficiency, Hiatal hernia Instructions: ED Flank Pain, Uncertain Cause, ED Hiatal Hernia Prescriptions: New hydrocodone-acetaminophen [hydrocodone-acetaminophen] 5-325 mg tablet 1 tab PO Q6H PRN PRN (Reason: Pain) 3 Days Qty: 10 0RF No Action levofloxacin 500 mg tablet 500 mg PO DAILY albuterol sulfate 90 mcg/actuation HFA aerosol inhaler 2 puff inhalation Q6H PRN Primary Care Provider: Yarelis Fitzpatrick Referrals: Elisabeth Patricia MD [Med Staff - Active Staff] - 1-2 Days if not improving Yarelis Fitzpatrick DO [Primary Care Provider] - Disposition Disposition: Home, Self Care
[2023-03-13 23:36] LABS: Absolute Lymphocyte Count 4.52 X10^3/uL (0.83-4.51); Absolute Neutrophil Count 4.8 X10^3/uL (2.0-7.7); Basophil# 0.07 X10^3/uL; Basophil% 0.7 % (0-1); Hemoglobin 14.1 g/dL (12.0-15.0); Lymphocyte # 4.52 X10^3/ul (0.83-4.51); Lymphocyte % 43.5 % (19-41); Mean Corp Hgb Conc 32.8 g/dL (32-36); Mean Corpuscular Volume 82.4 fL (81-99); Monocyte# 0.83 X10^3/uL; NRBC Flagged by Analyzer 0 % (0-5); Neutrophil # 4.79 X10^3/uL (2.7-7.7); Neutrophil % 45.9 % (47-70); Platelet Count 394 K/mm3 (150-450); RBC Distribution Width CV 13.9 % (11.6-14.6); RBC Distribution Width SD 41.5 fl (35.1-43.9); Red Blood Count 5.22 M/mm3 (4.2-5.4); White Blood Count 10.4 K/mm3 (4.4-11.0)
[2023-03-13 23:50] LABS: Bacteria 0 SEEN /hpf (None Seen); Color, Urine Straw (Yellow); Glucose, Dipstick Normal (Normal); Ketone-Dipstick Negative (Negative); Leukocyte Esterase-Dipstick 100 /ul (Negative); Mucous, Urine 0 SEEN /hpf (<or=2+); Nitrite-Dipstick Negative (Negative); Occult Blood-Urine Negative /ul (Negative); Protein-Dipstick Negative (Negative); Red Blood Cells-Urine 0 SEEN /hpf (0-5); Urine Bilirubin Dipstick Negative (Negative); Urine Clarity Clear (Clear); Urine Urobilinogen Normal (Normal)
[2023-03-14 00:06] LABS: Squamous Epithelial Cells - UA 0-5 SEEN /hpf (5-10); White Blood Cells 0-5 SEEN /hpf (0-5)
[2023-03-14 00:23] VITALS: RESP 16
== END 2023-03-14 00:45 | disposition home or self-care (01) ==
PROVIDERS: Emergency Provider Emergency Medicine; PCP Internal Medicine; Visit Provider Emergency Medicine
DX: R10.9 Unspecified abdominal pain (principal); D80.3 Selective deficiency of immunoglobulin G [IgG] subclasses; K44.9 Diaphragmatic hernia without obstruction or gangrene
CPT/HCPCS: 74176; 80048; 81001; 85025; 96361; 96374; 99282; J7030; A4216

== ENCOUNTER → 2023-07-14 | Outpatient (CLI) | payer OTHER, SELFPAY ==
--- NOTE | 2023-07-17 08:11 | PFTCOMP ---
COMPLETE PULMONARY FUNCTION TEST INTERPRETATION Brief HPI: Patient is a 48-year-old female, currently under the care of Dr. Meeks, who presents to [facility] for complete pulmonary function tests secondary to diagnosis of bronchiectasis. Respiratory therapist reports good effort and reproducible results. Interpretation: Forced expiration spirometry shows a mild large airways obstructive ventilatory defect with an FEV1 of 78% predicted. There is no significant bronchodilator response by strict ATS criteria. Spirograms are of good quality and plateau slowly, indicating slowly emptying areas of the lungs. The respiratory flow volume loop shows decreased expiratory flow rates at all lung volumes consistent with airway obstruction. Lung volumes by body plethysmography show a normal total lung capacity at 4.98 L, 101% predicted. All other lung volumes are within normal limits. Diffusion capacity by carbon monoxide is normal at 109% predicted. The airway resistance is normal. No previous pulmonary function tests were available for review. Impression: Irreversible mild large airways obstructive ventilatory defect with preserved lung volumes and diffusion capacity
== END | disposition home or self-care (01) ==
PROVIDERS: PCP Internal Medicine; Referring Provider Internal Medicine Critical Care Medicine; Visit Provider Internal Medicine Critical Care Medicine
DX: J47.9 Bronchiectasis, uncomplicated (principal)
CPT/HCPCS: 94060; 94726; 94729

== ENCOUNTER 2023-08-17 12:20 | Outpatient (CLI) | payer OTHER, SELFPAY ==
--- OUTSIDE RECORDS SUMMARY | 2023-08-17 12:41 | XMS RPT_ITS | CCD ---
Author Name Unknown Address [address] [place] [address] Organization [facility] Care Team Providers Care Tractor Technician Name Role Phone Yarelis Xiao Unavailable Chris Villeda Unavailable Eliseo Corral Unavailable Gravius, Haydee Unavailable Unavailable Lissett Tolbert Unavailable Unavailable Slarb, Kiesha Unavailable Unavailable Unavailable Unavailable Civíctora Lu Unavailable Erasmo Huynh Unavailable Unavailable Blanca Morrow Unavailable Unavailable Yarelis Xiao DO Unavailable Dr. Eliseo Corral Unavailable Erasmo Huynh LPN Unavailable Unavailable Lissett Tolbert RN Unavailable Unavailable Blanca Morrow LPN Unavailable Unavailable Ciesabraham ORTIZ, Lu Unavailable Slarb EMBEDDED SOFTWARE MANAGER, Kiesha Unavailable Unavailable Unavailable Unavailable Gravenedelia MCEGE, Haydee Unavailable Unavailable Yarelis Xiao DO Primary Care Provider Yarelis Xiao DO Unavailable Yaa Calderon MA Unavailable Unavailable Andi SIERRA, Pam Pastor Unavailable Sylvia EMBEDDED SOFTWARE MANAGER, Ingrid Unavailable Unavailable [place] EVERARDO, Kayela Unavailable Unavailable Xochilt MCGEE, Lyubov Unavailable Unavailable Yarelis Xiao DO Primary Care Provider Fast DO, Heydi A Unavailable Dylon Vazquez MD Unavailable Yarelis Xiao DO Attending Unavailable Yarelis Xiao DO Consulting Unavailable Glynn Barillas Unavailable Giovani HENSONPatience Unavailable Unavailable No calender inspector, Md Primary Care Provider Domitila vailable DYLON VAZQUEZ Attending Unavailable REFERRED, SELF Referring Unavailable NO PRIMARY CAREMD Primary Care Unavailable WHITE DYLON Attending Unavailable NATSAHA DYLON Referring Unavailable NO PRIMARY CAREMD Primary Care Unavailable WHITE DYLON Attending Unavailable WHITE DYLON Referring Unavailable NO PRIMARY CAREMD Primary Care Unavailable WHITE DYLON Attending Unavailable YARELIS XIAO Referring Unavailable NO PRIMARY CARE, Primary Care Unavailable Medications Current Medications Medication Drug Class(es) Dates Sig (Normalized) Sig (Original) azelastine hydrochloride 0.137 mg/actuat metered dose nasal spray (1 source) Histamine-1 Receptor Antagonist Start: 02-09-2023 azelastine (ASTELIN) 0.1 % nasal spray 1-2 Sprays by Each Nare route 2 times daily 30 mL 11 02/09/2023 Active azithromycin 250 mg oral tablet (20 sources) Macrolide Antimicrobial Start: 02-09-2023 End: 02-14-2023 take 2 tablets by mouth every twenty-four hours, then take 1 tablet by mouth every twenty-four hours azithromycin (ZITHROMAX) 250 MG tablet Take 2 Tablets (500 mg) by mouth every 24 hours for 1 day, THEN 1 Tablet (250 mg) every 24 hours for 4 days. 6 Tablet 0 02/09/2023 02/14/2023 Active Completed/Discontinued Medications Medication Drug Class(es) Dates Sig (Normalized) Sig (Original) acetaminophen 500 mg / HYDROcodone bitartrate 5 mg oral tablet (20 sources) Opioid Agonist VICODIN, 5-500MG (Oral Tablet) 1 tab PRN for 0 days Refills: 0 Ordered: 30-Apr-2010 MANUEL Voss LPN Inactive Comments: given by dentist Problems Active Problems Problem Classification Problem Date Documented Da te Episodic/Chronic Acute bronchitis (20 sources) Acute bronchitis; Translations: [Bronchitis, acute] Resolved: 02-04-2009 05-26-2015 Episodic Administrative/social admission (20 sources) Patient encounter status; Translations: [School physical exam] Resolved: 02-04-2009 07-10-2015 Episodic Allergic reactions (20 sources) Urticaria, unspecified; Translations: [Urticaria] Resolved: 10-15-2021 02-04-2013 Episodic Past or Other Problems Problem Classification Problem Date Documented Da te Episodic/Chronic Pneumonia (except that caused by tuberculosis or sexually transmitted disease) (20 sources) Pneumonia (except that caused by tuberculosis or sexually transmitted disease) Unclassified (20 sources) Abnormal Lung Sounds/Rales (786.7) Unclassified (20 sources) SCHOOL PHYSICAL (V70.5) Unclassified (20 sources) Deliveries (Parity); Translations: [Deliveries (Parity)] 01-10-2020 Results Test Name Value Interpretation Reference Range Facil ity Vital Signs Date Time Vital Sign Value Performing Clinician Faci lity 01-05-2023 09:46-0400 Body height 167.64 cm Patience Matute MA [facility]; [facility] Work Phone: 01-05-2023 09:46-0400 Body mass index (BMI) [Ratio] 21.63 kg/m2 Patience Matute MA [facility]; [facility] Work Phone: 01-05-2023 09:46-0400 Body surface area Derived from formula 1.69 m2 Patience Matute MA [facility]; [facility] Work Phone: 01-05-2023 09:46-0400 Body weight 60.78 kg Patience Matute MA [facility]; [facility] Work Phone: 12-30-2022 11:59-0400 Body height 167.64 cm Lyubov Lemon CMA [facility]; [facility] Work Phone: Encounters Encounter Date Encounter Type Care Provider Facility Start: 07-07-2023 End: 07-08-2023 ambulatory [facility] Start: 02-13-2023 End: 02-14-2023 ambulatory [facility] Start: 02-13-2023 End: 02-13-2023 Subsequent hospital visit by physician Dylon Vazquez MD Work Phone: [facility] Procedures Date Procedure Procedure Detail Performing Clinician Start: 02-13-2023 HIV 1&2 AG AND AB SCREEN Dylon Mclain Work Phone: Start: 02-13-2023 IMMUNOGLOBULIN A,G,M,E Dylon Vazquez MD Work Phone: Start: 01-24-2023 End: 01-24-2023 Pulmonary Visit Report Procedure Note: See Note; NOTES: [facility] [address] [place] [address] OFFICE VISIT Date of Service: 01/24/23 MR#: [id number] Acct: [id number] Name: OFE GIMENEZ Rep #: [id number] : 1975 Provider: Dr. Rakesh Meeks DO Age/Sex: 47/F [facility] Status: Signed Assessment and Plan Assessment and Plan (1) Bronchiectasis: Status: Acute Plan: The patient presented today for the evaluation of a CT chest which demonstrated bilateral bronchiectasis and apical scarring. The patient has a history of frequent hospitalizations for pneumonia. 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 This may certainly predispose the patient to recurrent pulmonary infections. In light of the patient's bronchiectasis and green sputum production, concern would be for underlying Pseudomonas. However, the patient has never had any sputum culture results in our system. Accordingly, we will plan to obtain a sputum sample and send for culture today. The patient was instructed to continue her currently prescribed Levaquin x14 days. I would like to see her back in follow-up after she has been evaluated by the rehabilitation clerk. The patient may require a prolonged antibiotic treatment course, if she is truly identified as having Pseudomonas on culture, given the refractory nature of her symptoms. In the interim, we will also plan to obtain baseline PFTs. (2) Immunoglobulin deficiency: Status: Acute Plan: Agree with referral to immunology as ordered by PCP. Orders: Orders Culture, Sputum Today J47.9 - Bronchiectasis, uncomplicated Pulmonary Function Test (Comp) Today J47.9 - Bronchiectasis, uncomplicated Plan Details Follow Up: 4 Weeks HPI Abnormal CXR/CT Current symptoms: Denies lymphadenopathy HPI Comments Details: The patient is a 47-year-old female who presents to the clinic today in referral for the evaluation of pulmonary nodules. 22 pages of outside medical records were reviewed at today's office visit. The patient reported that as a child she was diagnosed with frequent pneumonias and upper respiratory infections. She has a history of frequent hospitalizations with pneumonia. She stated that since August 2022 she has been on and off of antibiotics quite frequently. Each time her antibiotic treatment course completes she develops fevers and a productive cough within days. The patient just recently completed a treatment course of Levaquin. She felt well for approximately 3 to 4 days and then developed subjective fevers and a productive cough once again. She has noted the sputum to be tenacious and green in appearance. The patient also has an apparent history of immunoglobulin deficiency, for which she was just recently referred to Dr. Vazquez of immunology in [place]. She is currently scheduled to see the aforementioned provider on February 09. The patient is a lifelong non-smoker, but did have some secondhand smoke exposure growing up as a child. 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 She has never completed pulmonary function studies previously. However, she is currently prescribed albuterol, which she does report provides some transient symptom relief of her cough. In response to her relapse in symptoms, her PCP restarted her on Levaquin yesterday. Recent CT chest with contrast from mid December 2022 demonstrated bilateral upper lobe scarring with chronic bibasilar bronchiectasis. Intake Vital Signs 11/06/22 22:01 01/24/23 06:02 Height 5 ft 6 in 5 ft 6 in Weight: 133 lb BMI 21.4 BP 144/88 H Blood Pressure Location Rt brachial Position Sitting Respiration 18 Pulse 107 H Pulse Source Monitor Temp 98.2 F Temperature Source Temporal Artery Pulse Oximetry (%) 96 Oxygen Delivery Method room air Intake Visit Reasons: Abnormal CT scan [employer] Flake Miller Required: No DME Vendor: n/a Accompanied by: Self Is patient in pain?: No Allergies No Known Allergies Allergy (Verified 01/24/23 06:46) Medications albuterol sulfate 90 mcg/actuation aerosol inhaler 2 puff inhalation Q6H PRN 01/24/23 [History Confirmed 01/24/23] levofloxacin 500 mg tablet 500 mg PO DAILY x14 days 01/24/23 [History Confirmed 01/24/23] PFSH Social History Smoking Status: Never smoker Review of Systems Resp Respiratory: Yes as per HPI Exam Const Constitutional: Positive conversant, cooperative, in no acute respiratory distress, well developed, well nourished and good hygiene Head Head: Yes normocephalic and Yes atraumatic Eyes Eye: Positive clear conjunctiva; Negative nystagmus or scleral abnormality Ears Ear: Positive hearing normal and external ears normal Nose Nose: Yes external nose normal Mouth Mouth: Positive oral mucosae normal Neck Neck: Positive normal visual inspection and trachea midline; Negative lymphadenopathy Chest Wall Chest: Positive symmetric chest movement Normal AP diameter. Resp lung sounds: Positive good air exchange; Negative wheezes, rhonchi or rales Cardio Cardiac: Positive regular rate, regular rhythm, S1 normal and S2 normal; Negative murmur, rub or gallop GI GI: Positive normal bowel sounds Soft without distention Genitourinary: Positive deferred Musc Musculoskeletal: Positive steady gait Skin Pulmonary Skin Exam: Positive intact; Negative lesion, rash, ulcers or dermal atrophy Extremities Extremities: No clubbing, No cyanosis and No edema Neuro Neurologic: Yes no focal neuro deficits, Yes conversant and Yes cooperative Lymph Lymphatic: No lymphadenopathy Psych Appearance: Positive grossly normal Mental Status: Positive mental status grossly normal Mood: Positive congruent mood Affect: Positive normal affect Coding Level of Care Code Off vis,new,level 4 Diagnoses Bronchiectasis J47.9 Immunoglobulin deficiency D80.9 01/24/23 0733 <Electronically signed by Rakesh Meeks DO> Date Rakesh Meeks DO Cosigner Signature: Date (if applicable) CC: Yarelis Xiao DO Work Phone: Start: 01-02-2023 End: 01-03-2023 Chest WITH Contrast Procedure Note: See Note; NOTES: [facility] Imaging Services [address] [place] [address] Chest WITH Contrast MR#: [id number] Acct: [id number] Name: OFE GIMENEZ Rep #: [id number] : 1975 F 47 From: Ugo Oakes MD PCP: Dr. Yarelis Xiao DO Status: REG CLI Study: Chest WITH Contrast Date of Exam: 01/02/23 Exam# [id number] Ordering Dr: Heydi Meier DO INDICATION: Cough. EXAMINATION: CT CHEST WITH CONTRAST - CT Chest W/ Contrast Injection TECHNIQUE: Helically acquired images were obtained of the chest following IV contrast. A radiation dose optimization technique was used for this scan. IV Contrast dosage and agent: 100 mL Isovue-300 COMPARISON: December 23, 2019., February 25, 2013 FINDINGS: LUNGS, PLEURA AND LARGE AIRWAYS: Mild diffuse peribronchial thickening with lateral left lower lobe endobronchial mucus or debris. Mild bilateral apical: Peripheral upper lobe scarring. Medial right middle lobe atelectasis or scarring. No other consolidation. No effusion. No pneumothorax. THYROID: No thyroid lesions within the study [id number]. HEART AND PERICARDIUM: Heart size is normal. No pericardial effusion. No densely calcified coronary atherosclerosis. VESSELS: Thoracic aorta is not dilated. No aortic dissection. No obvious central pulmonary embolism although this study was not performed with the pulmonary embolism protocol. MEDIASTINUM AND SHAY: There are a few scattered inferior mediastinal lymph nodes adjacent to the distal esophagus. No other mediastinal adenopathy. Few bilateral subcentimeter short axis hilar lymph nodes are present. Esophagus is unremarkable. Small hiatal hernia.. UPPER ABDOMEN: No acute pathology. BONES: No suspicious lytic or blastic abnormality. CT/Chest WITH Contrast IMPRESSION: Bilateral apical and upper lobe peripheral linear atelectasis or scarring. Chronic basilar bronchiectasis with new peribronchial thickening compatible with acute bronchitis/bronchiolitis. Mild associated endobronchial mucus or debris in the lateral left lower lung. No evidence of consolidative pneumonia. Small reactive inferior mediastinal and bilateral hilar lymph nodes. Small hiatal hernia. Electronically Signed: Ugo Oakes MD at 4:28 EDT , CC: Dr. Heydi Meier DO; Dr. Yarelis Xiao DO Lockstitch Back Maker: Signed Heydi Meier DO Work Phone: Start: 12-16-2022 End: 12-17-2022 Chest PA and Lateral Procedure Note: See Note; NOTES: [facility] [address] [place] [address] Chest PA and Lateral MR#: [id number] Acct: [id number] Name: OFE GIMENEZ Rep #: [id number] : 1975 F 47 From: Yissel Caldwell MD PCP: Dr. Yarelis Xiao DO Status: DEP AMB Study: Chest PA and Lateral Date of Exam: 12/16/22 Exam# [id number] Ordering Dr: Heydi Meier DO We are attempting to reach an attending provider to discuss findings. An addendum with communication details will be sent when the communication is complete. STUDY: X-RAY CHEST REASON FOR EXAM: Female, 47 years old. LEFT LOWER LOBE PNEUMONIA -- STAT CALL WET READ TECHNIQUE: PA and lateral views of the chest. COMPARISON: April 26, 2022 chest x-ray December 23, 2019 CT chest. FINDINGS: There is a worsening linear patchy density within the left lingula suggesting probable continued bronchiectasis with superimposed inflammatory change within the left lingula. There is persistent scarring and patchy density within the right greater than left apex with areas of emphysematous change. There are a few stable subtle smudgy nodular densities within the left apex. There is no demonstrated pleural abnormality. Normal size heart. Normal mediastinum and shay. Normal visualized pulmonary arteries. There is atherosclerotic calcification of the aortic arch with tortuosity. There are diffuse degenerative changes of the visualized thoracic spine. Normal visualized ribs, clavicles, and shoulders. There is no demonstrated abnormality of the visualized soft tissue structures of the upper abdomen. RAD/Chest PA and Lateral IMPRESSION: There is persistent slightly worsened bronchiectasis with probable peribronchial inflammatory change possible mucous plugging in the lingula. There is chronic appearing inflammatory change in the lung apices. Electronically Signed: Yissel Caldwell MD at 12:36 EDT , CC: Dr. Heydi Meier DO; Dr. Yarelis Xiao DO Lockstitch Back Maker: Signed Heydi Meier DO Work Phone: Start: 11-06-2022 End: 11-07-2022 Abdomen/Pelvis without Cont Procedure Note: See Note; NOTES: [facility] Imaging Services [address] [place] [id number] Abdomen/Pelvis without Cont MR#: [id number] Acct: [id number] Name: OFE GIMENEZ Rep #: [id number] : 1975 F 47 From: Rao pinedo MD PCP: Dr. Yarelis Xiao DO Status: REG ER Study: Abdomen/Pelvis without Cont Date of Exam: 10/19 05/13 Exam# [id number] Ordering Dr: Adelfo Solis DO EXAM: CT ABDOMEN AND PELVIS WITHOUT INTRAVENOUS CONTRAST CLINICAL INDICATION: left flank pain TECHNIQUE: Helically acquired images were obtained of the abdomen and pelvis without intravenous contrast. This CT exam was performed using one or more of the following dose reduction techniques: automated exposure control, adjustment of the mA and/or kV according to patient size, and/or use of iterative reconstruction technique. This report was created using Sh[employer] report generation technology. RADIATION DOSE: Total DLP: 369.52 mGy-cm. COMPARISON: Chest CT of 12/23/2019. FINDINGS: LOWER THORAX: Minimal bronchiectasis within the posterior lateral aspect of the left lower lobe. No acute basilar pulmonary infiltrates or pleural effusions. No coronary artery calcification is visualized. No significant pericardial effusion. Small hiatal hernia. ABDOMEN: LIVER: Elongated right hepatic lobe measuring 19.7 cm in cephalocaudal dimension. No focal hepatic abnormality. GALLBLADDER AND BILE DUCTS: Unremarkable. No calcified gallstones. No gallbladder distention or wall edema. No intra- or extrahepatic biliary ductal dilation. PANCREAS: Unremarkable. No focal cystic mass. SPLEEN: Unremarkable. Normal size without focal cystic or solid mass. ADRENALS: Unremarkable. No nodules. KIDNEYS AND URETERS: On images 121 and 122 of series 2, a 2 mm rounded calcification is projected along the course of the mid to distal left ureter, without associated proximal ureteral dilatation. Additional calcified phleboliths are noted within the pelvis. The kidneys are normal in size and shape. No hydronephrosis, renal calculi or perirenal stranding. STOMACH AND BOWEL: Unremarkable. No stomach or bowel distention. No focal inflammatory change. PELVIS: APPENDIX: No evidence of acute appendicitis. BLADDER: Partially distended urinary bladder is unremarkable. REPRODUCTIVE: Uterus is mildly prominent. Multiple metallic densities are seen in the right adnexa consistent with previous tubal ligation. No metallic densities are seen in the left adnexa. No adnexal mass. ABDOMEN and PELVIS: INTRAPERITONEAL SPACE: Unremarkable. No ascites or other fluid collection. No free air. BONES/JOINTS: Unremarkable. No suspicious lytic or blastic abnormality. No acute osseous abnormality. SOFT TISSUES: Small fat-filled umbilical hernia. VASCULATURE: Minimally calcific abdominal aorta which is normal in caliber. No AAA. LYMPH NODES: Scattered tiny nonspecific mesenteric lymph nodes are present. No adenopathy. CT/Abdomen/Pelvis without Cont IMPRESSION: 2 mm rounded calcification projected along the course of the mid to distal left ureter, without hydronephrosis or perirenal stranding; this small calcification could represent a nonobstructing ureteral stone, in the appropriate clinical setting, or possibly a calcified phlebolith. Small hiatal hernia. Normal appendix. No findings of small bowel obstruction or diverticulitis. Electronically Signed: Rao Carter MD at 0:01 EDT , CC: Dr. Adelfo Solis DO; Dr. Yarelis Xiao DO Lockstitch Back Maker: Signed Yarelis Xiao DO Work Phone: Start: 11-06-2022 End: 11-07-2022 Emergency Department Summary Procedure Note: See Note; NOTES: [facility] Medical Records Department [address] [place] [address] Emergency Department Summary 11/06/22 MR#: [id number] Acct: [id number] Name: OFE GIMENEZ Rep #: [id number] : 1975 47 From: Adelfo Solis DO PCP: Dr. Yarelis Xiao, Status:REG ER Location: ED HPI HPI - GI History of Present Illness Chief Complaint: Abd Pain Narrative Narrative: Patient presenting with left-sided flank and abdominal pain but also states the right side is hurting. She states that it appears to radiate into both hips and down her legs. This started acutely at 1300. She is having difficulty finding a position of comfort. She has not had a fever. She denies any urinary complaints. She states he has a history of kidney stone when she was 16 has not had one since. No constipation or diarrhea. No vaginal complaints. PFSH PFSH Home Medications doxycycline hyclate 100 mg tablet 100 mg PO DAILY 11/06/22 [History Last Taken Unknown] ondansetron 4 mg disintegrating tablet 4 mg PO Q8H PRN PRN Nausea #14 tabs 11/07/22 [Rx Last Taken Unknown] oxycodone-acetaminophen 5 mg-325 mg tablet (Percocet) 1 tab PO Q6H PRN pain 3 days #12 tabs 11/07/22 [Rx Last Taken Unknown] Allergy/AdvReac Type Severity Reaction Status Date / Time No Known Allergies Allergy Verified 11/06/22 22:02 Social History Smoking Status: Never smoker ROS ROS ED Review of Systems ROS Unobtainable: Denies due to encephalopathy Constitutional Constitutional ED: Denies chills or fever(s) ENT ENT ED: Denies rhinorrhea or sore throat Cardiovascular Cardiovascular: Denies palpitations or racing heartbeat Respiratory/Chest Respiratory/Chest: Denies cough or dyspnea Gastrointestinal Gastrointestinal: Reports abdominal pain; Denies diarrhea or melena Genitourinary Genitourinary ED: Denies dysuria Musculoskeletal Musculoskeletal: Reports back pain; Denies arthralgias Integumentary Denies abscess Neurologic Neurologic: Denies headache(s) or paresthesias Psychiatric Psychiatric: Denies anxiety EXAM Physical Exam Const Vital Signs: 11/06/22 22:01 11/07/22 00:00 Temperature 97.8 F Temperature Source Temporal Pulse Rate 93 83 Respiratory Rate 16 16 Blood Pressure 194/94 H 171/88 H Blood Pressure Mean 127 115 Pulse Ox 99 97 Oxygen Delivery Method Room Air Room Air Positive well nourished General Appearance ED: NAD; Negative for pallor HEENT Reports moist mucous membranes normocephalic Eyes PERRL Resp normal respiratory effort Cardio regular rate and regular rhythm GI Palpation: tender LLQ Back/Spine General Back: CVA tenderness left Neuro CN's II-XII intact bilaterally Sensorium / Orientation: alert Motor Exam: strength 5/5 throughout Psych mental status grossly normal Skin General Skin Exam: Negative for jaundice or pallor MDM MDM MDM Narrative Medical decision making narrative: Patient presenting with abdominal pain she states is left greater than right. She has mild CVA tenderness on the left. There is some left lower quadrant tenderness to palpation. This is acute in onset. Differential diagnosis includes kidney stone, ureteral calculi, diverticulitis, colitis, ovarian torsion. Patient medicated with morphine, Zofran, Toradol and her pain did improve. She states it still about a 6 or 7 but it is very tolerable at this point. She is lying comfortably in the bed. CBC obtained to assess white blood cell count, hemoglobin, differential. BMP to assess renal function electrolytes. Serum hCG to assess for . Urinalysis for occult blood and infection. CBC shows a slight elevated white blood cell count at 12.7. Hemoglobin is stable. No left shift. White blood cell count is likely reactive. BMP shows normal renal function electrolytes. Glucose elevated at 177 without anion gap. Urinalysis negative for infection this does show 10 occult blood. At this point I believe the patient had a kidney stone the way she was moving around the room and pacing. CT of the abdomen pelvis with out contrast was obtained and it shows a 2 mm distal ureteral calculi without obstruction. No hydronephrosis. There is no evidence of diverticulitis. The patient 0.5 mg of Dilaudid she still states she was in pain. I did inform her that we do not have urology on-call today and could not get her pain under control we would need to transfer her. She states that even though her pain is still there she believes it is manageable as long as she has pain medication at home. She will be given Percocet and Zofran to go home from the hospital via meds to beds. Return precautions were discussed. Impression: 1. Left ureteral calculi 2. Left flank pain 3. Hematuria Lab Data Labs: Laboratory Results - last 24 hr 11/06/22 11/06/22 11/06/22 22:24 22:24 22:24 WBC 12.7 H RBC 5.24 Hgb 13.9 Hct 43.7 MCV 83.4 MCH 26.5 L MCHC 31.8 L RDW Std Deviation 44.0 H RDW Coeff of Mendy 14.6 Plt Count 502 H MPV 9.2 Immature Gran % (Auto) 0.500 Neut % (Auto) 66.8 Lymph % (Auto) 25.4 Schuyler % (Auto) 6.8 Eos % (Auto) 0.0 Baso % (Auto) 0.5 Absolute Neuts (auto) 8.5 H Absolute Lymphs (auto) 3.22 Nucleated RBC % 0 Sodium 142 Potassium 3.6 Chloride 107 Carbon Dioxide 27.0 Anion Gap 8 BUN 11 Creatinine 0.76 Estim Creat Clear Calc 83.82 Est GFR (MDRD) Af Amer 104 Est GFR (MDRD) Non-Af 86 BUN/Creatinine Ratio 14.5 Glucose 177 H Calcium 9.6 Serum , Qual NEGATIVE Urine Color Urine Clarity Urine pH Ur Specific Graham Urine Protein Urine Glucose (UA) Urine Ketones Urine Occult Blood Urine Nitrite Urine Bilirubin Urine Urobilinogen Ur Leukocyte Esterase Urine RBC Urine WBC Ur Squamous Epith Cells Amorphous Sediment Urine Bacteria Urine Mucus 11/06/22 22:27 WBC RBC Hgb Hct MCV MCH MCHC RDW Std Deviation RDW Coeff of Mendy Plt Count MPV Immature Gran % (Auto) Neut % (Auto) Lymph % (Auto) Schuyler % (Auto) Eos % (Auto) Baso % (Auto) Absolute Neuts (auto) Absolute Lymphs (auto) Nucleated RBC % Sodium Potassium Chloride Carbon Dioxide Anion Gap BUN Creatinine Estim Creat Clear Calc Est GFR (MDRD) Af Amer Est GFR (MDRD) Non-Af BUN/Creatinine Ratio Glucose Calcium Serum , Qual Urine Color Yellow Urine Clarity Sl. Cloudy Urine pH 6.5 Ur Specific Graham 1.020 Urine Protein 30 H Urine Glucose (UA) 50 H Urine Ketones Negative Urine Occult Blood 10 H Urine Nitrite Negative Urine Bilirubin Negative Urine Urobilinogen 1 H Ur Leukocyte Esterase Negative Urine RBC 0-5 SEEN Urine WBC 0 SEEN Ur Squamous Epith Cells 0-5 SEEN Amorphous Sediment 1+ URATE Urine Bacteria 0 SEEN Urine Mucus 0 SEEN Radiography Diagnostic Testing: Clinical Impression(s) from Imaging Studies Abdomen/Pelvis CT 11/06/22 23:09 IMPRESSION: 2 mm rounded calcification projected along the course of the mid to distal left ureter, without hydronephrosis or perirenal stranding; this small calcification could represent a nonobstructing ureteral stone, in the appropriate clinical setting, or possibly a calcified phlebolith. Small hiatal hernia. Normal appendix. No findings of small bowel obstruction or diverticulitis. Electronically Signed: Rao Carter MD at 0:01 EDT , Discharge Plan Triage Chief Complaint: Abd Pain ED Provider: Adelfo Solis Dx/Rx/DC Orders Instructions: ED Kidney Stone w/ Colic Prescriptions: New oxycodone-acetaminophen [Percocet] 5-325 mg tablet 1 tab PO Q6H PRN (Reason: pain) 3 Days Qty: 12 0RF ondansetron 4 mg tablet,disintegrating 4 mg PO Q8H PRN PRN (Reason: Nausea) Qty: 14 0RF No Action doxycycline hyclate 100 mg Tablet 100 mg PO DAILY Primary Care Provider: Yarelis Xiao Referrals: Elisabeth Patricia MD [Med Staff - Active Staff] - As soon as possible Yarelis Xiao DO [Primary Care Provider] - Disposition Disposition: Home, Self Care What to do if you have Problems For any increased pain, shortness of breath, bleeding, nausea or vomiting, chest pain, or any unexpected problems, contact your Primary Care Provider. Call [facility] ([phone]) or report to the closest Emergency Room. Call 911 if necessary. 11/07/22 0041 <Electronically signed by Adelfo Solis DO> Cosigner Signature (if applicable): CC: Dr. Yarleis Xiao DO Signed Yarelis Xiao DO Work Phone: Start: 04-26-2022 End: 04-28-2022 Chest PA and Lateral Procedure Note: See Note; NOTES: [facility] Imaging Services [address] [place] [address] Chest PA and Lateral MR#: [id number] Acct: [id number] Name: OFE GIMNEEZ Rep #: [id number] : 1975 F 46 From: Mónica Werner MD PCP: Dr. Yarelis Xiao DO Status: REG CLI Study: Chest PA and Lateral Date of Exam: 04/26/22 Exam# [id number] Ordering Dr: Kimberly Jacobson STUDY: X-RAY CHEST REASON FOR EXAM: Female, 46 years old patient with asthmatic bronchitis. TECHNIQUE: PA and lateral views of the chest. COMPARISON: Chest radiograph dated 09/12/2020. FINDINGS: The lungs are hyperexpanded. There is prominence of bronchovascular markings. There is patchy left basilar groundglass attenuation and may represent pneumonia. There is no demonstrated pleural abnormality. Normal size heart. Normal mediastinum and shay. Normal visualized pulmonary arteries. Normal visualized aortic arch and descending thoracic aorta. There is demineralization of the osseous structures. Normal visualized ribs, clavicles, and shoulders. There is no demonstrated abnormality of the visualized soft tissue structures of the upper abdomen. RAD/Chest PA and Lateral IMPRESSION: Left basilar airspace disease suggests possible pneumonia. Electronically Signed: Mónica Werner MD at 4:43 EDT Reading Location ID and State: [facility] / [place] , Service support , CC: PEARL TECHNICIAN-C Kimberly Jacobson; Dr. Yarelis Xiao DO Lockstitch Back Maker: Signed Yarelis Xiao DO Work Phone: Start: 04-08-2022 End: 04-08-2022 SCRN MAMM (CAD)W/PIERCE BILAT Procedure Note: See Note; NOTES: [facility] Imaging Services [address] [place] [address] SCRN MAMM (CAD)W/PIERCE BILAT MR#: [id number] Acct: [id number] Name: OFE GIMENEZ Rep #: [id number] : 1975 F 46 From: Luis doherty MD PCP: Dr. Yarelis Xiao, DO Status: REG CLI Study: SCRN MAMM (CAD)W/PIERCE BILAT Date of Exam: 03/21 05/12 Exam# [id number] Ordering Dr: Redd Boss MD MAMMOGRAPHY - BILATERAL SCREENING REASON FOR EXAM: Female, 46 years old. Routine annual screening examination. PERTINENT HISTORY: Non-contributory. TECHNIQUE: Digital bilateral breast pierce (3D mammographic acquisition) in the CC and MLO projections. 2-D mediolateral oblique (MLO) and craniocaudad (CC) views of both breasts were obtained. CAD: Full Field Digital Mammography with Computer Added Detection was performed. COMPARISON: Comparison is made with prior study of 03/30/2021 and 01/05/2017. FINDINGS: Breast Composition: The breasts are extremely dense, which lowers the sensitivity of mammography. The previously seen nodular density in the axillary region of the right breast has decreased in size. It presently measures 1.8 cm x 1.9 cm. Prior ultrasound demonstrated this to be a cyst. No other significant abnormalities are identified. BI/SCRN MAMM (CAD)W/PIERCE BILAT IMPRESSION: Interval decrease in size of the nodular density in the axillary region of the right breast. Yearly follow-up mammogram recommended. (A) ASSESSMENT CATEGORY: BIRADS Category 2: Benign. A letter regarding these results will be sent to the patient by the facility within 30 days. Approximately 10% of breast cancers are not detected by mammography. A normal mammogram should not delay biopsy of a clinically suspicious abnormality. [id number] Electronically Signed: Luis Rossi MD at 9:29 EDT , CC: Dr. Redd Boss MD; Dr. Yarelis Xiao DO Lockstitch Back Maker: Signed Yarelis Xiao DO Work Phone: Start: 04-01-2021 End: 04-01-2021 Breast Limited Unilateral Comments: See Note; NOTES: [facility] Imaging Services [address] [place] [address] Breast Limited Unilateral MR#: [id number] Acct: [id number] Name: OFE GIMENEZ Rep #: [id number] : 1975 F 45 From: Luis doherty MD PCP: Dr. Yarelis Xiao DO Status: REG CLI Study: Breast Limited Unilateral Date of Exam: Exam# [id number] Ordering Dr: Redd Boss MD STUDY: ULTRASOUND BREAST - RIGHT REASON FOR EXAM: Female, 45 years old. Abnormal screening mammogram. TECHNIQUE: Axial and longitudinal images of the RIGHT breast were performed with a high resolution ultrasound transducer. # OF IMAGES: 23 COMPARISON: Comparison is made with prior mammogram dated 03/30/2021. FINDINGS: RIGHT Breast: The mammographic abnormality corresponds to a 2.4 cm x 2.5 cm x 1.7 cm cyst at the 9 to 10 o''clock position of the breast. This is at 6 cm from the nipple. US/Breast Limited Unilateral IMPRESSION: The mammographic abnormality corresponds to 2.4 cm x 2.5 cm x 1.7 cm cyst. ASSESSMENT CATEGORY: BIRADS Category 2: Benign. A letter regarding these results will be sent to the patient by the facility within 30 days. Electronically Signed: Luis Rossi MD at 9:40 EDT , Service support , CC: Dr. Redd Boss MD; Dr. Yarelis Xiao DO Lockstitch Back Maker: Signed Yarelis Xiao DO Work Phone: Start: 03-30-2021 End: 03-31-2021 SCRN MAMM (CAD)W/PIERCE BILAT Comments: See Note; NOTES: [facility] Imaging Services [address] [place] [address] SCRN MAMM (CAD)W/PIERCE BILAT MR#: [id number] Acct: [id number] Name: OFE GIMENEZ Rep #: [id number] : 1975 F 45 From: Luis doherty MD PCP: Dr. Yarelis Xiao DO Status: PRE CLI Study: SCRN MAMM (CAD)W/PIERCE BILAT Date of Exam: 03/21 Exam# [id number] Ordering Dr: Redd Boss MD MAMMOGRAPHY - BILATERAL SCREENING REASON FOR EXAM: Female, 45 years old. Routine annual screening examination. PERTINENT HISTORY: Non-contributory. TECHNIQUE: Digital bilateral breast pierce (3D mammographic acquisition) in the CC and MLO projections. 2-D mediolateral oblique (MLO) and craniocaudad (CC) views of both breasts were obtained. An exaggerated craniocaudad view of the right breast was obtained as well. CAD: Full Field Digital Mammography with Computer Added Detection was performed. COMPARISON: Comparison is made with prior study dated 01/05/2017 and 12/18/2014. FINDINGS: Breast Composition: The breasts are extremely dense, which lowers the sensitivity of mammography. There is a 2.9 cm x 2.5 cm well-defined nodular density in the the lateral axillary region of the right breast. Correlation with ultrasound is recommended. No other significant abnormalities are identified. BI/SCRN MAMM (CAD)W/PIERCE BILAT IMPRESSION: 2.5 cm x 2.9 cm well-defined nodular density in the axillary region of the right breast as described. Correlation with ultrasound is recommended. ASSESSMENT CATEGORY: BIRADS Category 0: Incomplete. Need additional imaging evaluation. A letter regarding these results will be sent to the patient by the facility within 30 days. Approximately 10% of breast cancers are not detected by mammography. A normal mammogram should not delay biopsy of a clinically suspicious abnormality. [id number] Electronically Signed: Luis Rossi MD at 8:20 EDT , Service support , CC: Dr. Redd Boss MD; Dr. Yarelis Xiao DO Lockstitch Back Maker: Signed Yarelis Xiao DO Work Phone: Start: 09-12-2020 End: 09-12-2020 Discharge Instruction Comments: See Note; NOTES: [facility] Medical Records Department [address] [place] [address] Discharge Instruction 09/12/20 MR#: [id number] Acct: [id number] Name: OFE GIMENEZ Rep #: [id number] : 1975 45 From: Isac Middleton MD PCP: Dr. Yarelis Xiao DO Status:DEP ER ED Disposition - Plan for ED Patient: Disposition: Home or Assisted Living Instructions: ED Pneumonia (Adult) Prescriptions: Levofloxacin [Levaquin] 750 mg PO DAILY #6 tab Prescription Printed Referrals: Yarelis Xiao DO [Primary Care Provider] - 3-5 Days Additional Instructions: Plenty of fluids and rest. Tylenol and Motrin for fever and body aches. Follow-up your primary care physician next 3 to 5 days to ensure you are improving. Return emergency department if you are feeling a lot worse. The antibiotic Levaquin once a day till finished. What to do if you have Problems For any increased pain, shortness of breath, bleeding, nausea or vomiting, chest pain, or any unexpected problems, contact your Primary Care Provider. Call [facility] ([phone]) or report to the closest Emergency Room. Call 911 if necessary. 09/12/20 1704 <Electronically signed by Iasc Middleton MD> Date Isac Middleton MD Cosigner Signature (If Indicated): Date CC: DO Yarelis Amor Start: 09-12-2020 End: 09-12-2020 Emergency Department Summary Comments: See Note; NOTES: [facility] Medical Records Department [address] [place] [address] Emergency Department Summary 09/12/20 MR#: [id number] Acct: [id number] Name: OFE GIMENEZ Rep #: [id number] : 1975 45 From: Isac Middleton MD PCP: Dr. Yarelis Xiao DO Status:DEP ER - ER Visit Summary Date of Service: 09/12/20 Chief Complaint: Fever, cough and body aches. History of Present Illness: The patient is a 45 F past medical history of episodes of pneumonia in the past and prior pleural effusion from pneumonia. They states since she has had a fever as high as 103 with diffuse body aches. Cough of green sputum. Mild nausea. No diarrhea no dysuria. She actually states she had very limited symptomatic Covid in June. She went to an urgent care had a cough and was told she tested Covid positive. She denies any abdominal pain. She has chest pain with coughing. She has no history of DVT or PE. She has had no recent travel, surgery or immobilization. No leg pain or swelling. No hemoptysis. Physical Examination: Middle-aged female vital signs stable she does have a temperature 101.3. Pulse ox 96% on room air no signs of hypoxia. H EENT exam unremarkable. Neck nontender no lymphadenopathy. Lungs dry cough but no rales, rhonchi or wheezing. Equal symmetrical. Heart tachycardic rate about 110 no murmur. Abdomen soft nontender normal bowel sounds no peritoneal signs. Patient moving all 4 extremities. Calves nontender without edema or cords. Neurologically she is awake alert with no focal motor deficits. Back nontender. Skin is unremarkable. Test Results: X-ray portable 1 view interpreted by myself shows right upper lung scar tissue but I do believe there may be a right upper lobe infiltrate also. It does appear to be some unchanged from prior chest x-ray. Normal cardiac silhouette mediastinum. Radiologist also read the film he believes is scar tissue. However the patient does have a fever and a cough and symptoms consistent with pneumonia so clinically I do think this is pneumonia. CBC shows an elevated white count of 25,000 hemoglobin 14 no bands chemistries normal normal creatinine and gap. Influenza test was negative. COVID-19 was negative also. That was the rapid antigen. Repeat exam patient is feeling better after IV fluids and IV Toradol. Repeat exam at 12:15 PM she is resting more comfortably. She had I discussed all of her test results and had previously gone over the x-ray with her she also feels she has pneumonia and she has had numerous times in the past. She will be started on Levaquin in the emergency department p.o. and she is comfortable being discharged home. Her vital signs are stable and she is nonhypoxic. Emergency Department Course and Treatment: Middle-aged female with symptoms most likely consistent with pneumonia or bronchitis. She will be retested for Covid and also influenza. She will receive IV fluids and Toradol for fever and body aches. Treatment Plan: For outpatient pneumonia with Levaquin daily. Tylenol and Motrin. Plenty of fluids and rest. Follow-up if not improving. Return if feeling worse for possible admission. Disposition: Discharge Impression: Acute fever and body aches secondary to right upper lobe pneumonia Leukocytosis This note was generated with [employer] dictation software. It may contain incorrect words, spelling, and punctuation that were not noted in review of the chart prior to signing ED Disposition - Plan for ED Patient: Referrals: Yarelis Xiao DO [Primary Care Provider] - What to do if you have Problems For any increased pain, shortness of breath, bleeding, nausea or vomiting, chest pain, or any unexpected problems, contact your Primary Care Provider. Call [facility] ([phone]) or report to the closest Emergency Room. Call 911 if necessary. 09/12/20 1704 <Electronically signed by Isac Middleton MD> Date Isac Middleton MD Cosigner Signature (If Indicated): Date CC: DO Yarelis Amor Start: 09-12-2020 End: 09-12-2020 Chest 1 View (Portable) Comments: See Note; NOTES: [facility] Imaging Services [address] [place] [address] Chest 1 View (Portable) MR#: [id number] Acct: [id number] Name: OFE GIMENEZ Rep #: [id number] : 1975 F 45 From: David Loyola DO PCP: Dr. Yarelis Xiao DO Status: PRE ER Study: Chest 1 View (Portable) Date of Exam: 09/12/20 Exam# [id number] Ordering Dr: Isac Middleton MD STUDY: X-RAY CHEST REASON FOR EXAM: Female, 45 years old. Cough and fever. Body aches. COVID 19 infection June. TECHNIQUE: Single AP portable view of the chest. COMPARISON: Chest, 12/05/2019. FINDINGS: The lungs are well-expanded. There is persistent scarring in the right lung apex unchanged from prior study. There is no new infiltrate or mass. There is no demonstrated pleural abnormality. Normal size heart. Normal mediastinum and shay. Normal visualized pulmonary arteries. Normal visualized aortic arch and descending thoracic aorta. The thoracic spine is obscured by the mediastinum. Normal visualized ribs, clavicles, and shoulders. There is no demonstrated abnormality of the visualized soft tissue structures of the upper abdomen. RAD/Chest 1 View (Portable) IMPRESSION: Stable scarring in the right lung apex. There is no acute cardiopulmonary disease. Electronically Signed: David Loyola DO at 11:24 EST Tel [phone], Service support , CC: Dr. Isac Middleton MD; Dr. Yarelis Xiao DO Lockstitch Back Maker: Signed Yarelis Xiao Start: 12-23-2019 End: 12-23-2019 Chest WITH Contrast Comments: See Note; NOTES: [facility] Imaging Services [address] [place] [address] Chest WITH Contrast MR#: [id number] Acct: [id number] Name: OFE GIMENEZ Rep #: [id number] : 1975 F 44 From: Luis doherty MD PCP: Yarelis Xiao DO Status: REG CLI Study: Chest WITH Contrast Date of Exam: 12/23/19 Exam# [id number] Ordering Dr: Katia Desai PEARL TECHNICIAN-Sly STUDY: CT CHEST WITH CONTRAST REASON FOR EXAM: Female, 44 years old. IMMUNODEFICIENCY -- PNEUMONIA X3 WKS AGO -- NEG COVED TEST RADIATION DOSAGE (If Supplied By Facility): CTDIvol = ( 9.97 ) mGy, DLP = ( 5.67 ) mGycm TECHNIQUE: Transaxial imaging was performed following intravenous administration of IV 100mL Isovue-300. Multiplanar coronal and sagittal images were reformatted. Individualized dose optimization techniques were used for this CT. COMPARISON: Comparison is made with prior study dated February 25, 2013 and prior radiograph dated December 05, 2019. FINDINGS: Infiltration in the posterior segment of the right upper lobe. This has progressed as compared to prior CT scan. Mild increased markings in the posterior aspect of the left upper lobe. There is a noncalcified 6.8 mm nodule in the medial portion of the left upper lobe. There is also evidence of a 5.3 mm nodule in the superior segment of the right upper lobe as seen on axial image #35. This also exhibit increased markings with areas of confluence in the anterior aspect of the right middle lobe. This has progressed as compared to prior study. 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 This is unchanged. There is no demonstrated pleural abnormality. Normal heart and pericardium. Normal mediastinum. Normal hilar regions. Normal enhanced pulmonary arteries. Normal aorta arch and descending thoracic aorta. Normal osseous structures. There is no demonstrated abnormality of the visualized upper abdomen. CT/Chest WITH Contrast IMPRESSION: Interval increase in infiltration in the right upper lobe as described. Stable examination otherwise. Electronically Signed: Luis Rossi, at 15:15 EDT , Service support , CC: DARRYN Desai; Yarelis Xiao DO Lockstitch Back Maker: Signed Katia Desai Work Phone: H/O: section Section As juliana Morrow LPN Plan of Treatment Date Care Activity Detail Author Start: 04-21-2023 FLU (Season Ended) FLU (Season Ended) [facility] Start: 01-05-2023 Procedure Education Eprescribed prescriptions (G8553) [facility]; [facility] Work Phone: Start: 01-05-2023 Provider Instructions for Treatment [facility]; [facility] Work Phone: Start: 12-30-2022 Procedure Education Eprescribed prescriptions (G8553) [facility]; [facility] Work Phone: Start: 12-30-2022 Provider Instructions for Treatment Reviewed Lab [facility]; [facility] Work Phone: Start: 12-16-2022 Procedure Education Eprescribed prescriptions (G8553) [facility]; [facility] Work Phone: Start: 12-16-2022 Fluorescent nonnfct agt antb titer ea antibody P-ANCA & C-ANCA (85235) [facility]; [facility] Work Phone: Start: 12-16-2022 Blood count complete auto&auto difrntl wbc CBC W/AUTO DIFF WBC (54809) [facility]; [facility] Work Phone: Start: 12-16-2022 Comprehensive metabolic panel METABOLIC PANEL, COMPREHENSIVE (31789) [facility]; [facility] Work Phone: Start: 12-16-2022 Protein total xcpt refractometry urine UPEP (44414) [facility]; [facility] Work Phone: Start: 12-16-2022 Protein electrophoretic fractj&quantj serum SPEP (20409) [facility]; [facility] Work Phone: Start: 12-16-2022 Assay of gammaglobulin ige Immunoglobulins, Quantitative, IgA,IgE, IgG, IgM (22934) [facility]; [facility] Work Phone: Start: 12-16-2022 Lactate dehydrogenase ldh LDH (LD) (LACTATE DEHYDROGENASE) (53745) [facility]; [facility] Work Phone: Start: 12-16-2022 Blood count reticulocyte automated RETICULOCYTE COUNT (61411) [facility]; [facility] Work Phone: Start: 12-16-2022 Iron binding capacity Iron Binding Capacity (TIBC) (18073) [facility]; [facility] Work Phone: Start: 12-16-2022 Assay of ferritin Ferritin (62957) [facility]; [facility] Work Phone: Start: 12-16-2022 Assay of iron Iron (64884) [facility]; [facility] Work Phone: Start: 12-16-2022 Cyanocobalamin vitamin b-12 Vitamin B-12 (cyanocobalamin) (17911) [facility]; [facility] Work Phone: Start: 12-05-2022 Assay of gammaglobulin ige Immunoglobulins Iga/Ige/Igg/Igm (GAME) (35055) [facility]; [facility] Work Phone: Start: 10-14-2022 Procedure Education Eprescribed prescriptions (G8553) [facility]; [facility] Work Phone: Start: 10-14-2022 Provider Instructions for Treatment Continue Current Prescription(s) [facility]; [facility] Work Phone: Start: 10-07-2022 Procedure Education Eprescribed prescriptions (G8553) [facility]; [facility] Work Phone: Start: 09-12-2022 Procedure Education Eprescribed prescriptions (G8553) [facility]; [facility] Work Phone: Start: 08-21-2022 DEPRESSION ASSESSMENT DEPRESSION ASSESSMENT [facility] Start: 2022 Procedure Education Eprescribed prescriptions (G8553) [facility]; [facility] Work Phone: Start: 04-26-2022 Procedure Education Eprescribed prescriptions (G8553) [facility]; [facility] Work Phone: Start: 04-21-2022 Influenza vaccination [facility] Start: 02-22-2022 Procedure Education Eprescribed prescriptions (G8553) [facility]; [facility] Work Phone: Start: 10-15-2021 Procedure Education Eprescribed prescriptions (G8553) [facility]; [facility] Work Phone: Start: 07-05-2021 Procedure Education Eprescribed prescriptions (G8553) [facility]; [facility] Work Phone: Start: 07-05-2021 Provider Instructions for Treatment Follow up if no improvement or if symptoms worsen [facility]; [facility] Work Phone: Start: 07-02-2021 Procedure Education Eprescribed prescriptions (G8553) [facility] Work Phone: Start: 02-09-2021 Procedure Education Eprescribed prescriptions (G8553) [facility] Work Phone: Start: 02-09-2021 Provider Instructions for Treatment [facility] Work Phone: Start: 01-22-2021 Procedure Education Eprescribed prescriptions (G8553) [facility] Work Phone: Start: 11-25-2020 Iaadiadoo influenza 2019 Novel Coronavirus (COVID-19), MICHELLE ([id number]) [facility] Work Phone: Start: 10-12-2020 Procedure Education Eprescribed prescriptions (G8553) [facility]; [facility] Work Phone: Start: 10-12-2020 Provider Instructions for Treatment *Antibiotic Usage Education - Female [facility]; [facility] Work Phone: Start: 09-14-2020 Procedure Education Eprescribed prescriptions (G8553) [facility]; [facility] Work Phone: Start: 09-14-2020 Provider Instructions for Treatment [facility] Work Phone: Start: 01-10-2020 Procedure Education Eprescribed prescriptions (G8553) [facility] Work Phone: Start: 01-10-2020 Provider Instructions for Treatment Solu Medrol Injection/ Education [facility] Work Phone: Start: 12-30-2019 Assay of gammaglobulin iga igd igg igm each IGA/IGD/IGG/IGM-EACH (73053) [facility] Work Phone: Immunizations Immunization Date Immunization Notes Care Provider Yolette patel 04-29-2013 pneumococcal polysaccharide vaccine, 23 valent Ramon Peterson APRN.LEAN SENSEI Work Phone: [facility] Payers Date Payer Category Payer Unknown 2022 Unknown [id number] 2021 Unknown [id number] 2020 Unknown [id number] 2019 Unknown [employer] PPO [id number] 2019-Present [phone] [id number] [place] [address] PPO [id number] 2008 Unknown [id number] 2006 Unknown [id number] 1973 Unknown [id number] 1973 Unknown [id number] 1973 Unknown [id number] 1973 Unknown [id number] 1973 Unknown [id number] Social History Date Type Detail Facility Caffeine Use Caffeine Use [facility] Work Phone: Clinical Notes 05-14-2021 to 02-09-2023 Ramon Peterson APRN.LEAN SENSEI - 11/06/2022 10:00 AM EDTRamon Peterson APRN.LEAN SENSEI - 01/23/2022 9:03 AM EDT Note Date & Type Note Facility 02-09-2023 Note Ofe is a 47 y.o . female who presents to our office today for evaluation secondary to concerns from her PCP Dr. Yarelis Xiao (see referral in [facility]). Ofe used to be followed by Dr. Tarango ([facility]) for lung nodules and she had been on Pulmicort 0.5mg/2ml twice a day. She also has a previous history of some degree of urticaria and I may have seen her for this years ago in my old office and she goes years without them and she last had these about 3 years ago and these resolved on their own and reportedly the evaluation I did was unremarkable. . Due to cough and other issues, laboratory studies were obtained and a SPEP and UPEP appeared to be okay except for low gamma globulin in the SPEP and she was found to have low iron and she has a history of increased WBC to some degree and platelet count. Also, 12/16/22 IgG-307, IgA<5, IgM-30 and IgE<[address] may have shown possible bronchiectasis and per Dr. Xiao she was to see Dr. Meeks ([facility] in [place]) and she now presents for further evaluation. -Right now, she is on antibiotics and after she is off antibiotics she has issues and she has a issue with bronchitis for a couple of times a year for several years but since August she has increased cough. Pulmicort is used Monday morning and is used as needed and albuterol is used as needed and she has not seen Dr. Tarango for 5 years. She has a PFT scheduled as well with Pulmonology. In the past, she was given Prednisone a year ago for respiratory type symptoms and this was tolerated. Right now, she has 3 Levaquin lio and I advised her to finish these. Environmental Survey/Social History: Lives with spouse and son (age 19). She was 25 years ago. Special Needs: None Preferred Language: Bolivian Pets: Yes: 1 dog. 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 Smoking/Alcohol/Drug Use or Exposure: No, never smoked. Recreational Activities/Sports: No Review of Systems/Past Medical History: Constitutional: denies fever, chills, weight loss. Eyes: denies vision changes, color blindness. Ears, nose throat and mouth: see narrative above. Nasal symptoms at time and she has drainage and congestion at times. She does not take allergy medication (Cetirizine). Respiratory: has cough at baseline/ see above narrative. Gastrointestinal: denies diarrhea, constipation, emesis. Genitourinary: denies dysuria or urine odor. Skin/integumentary: denies nail changes or other rash. Neurologic: denies seizures, weakness or speech problems. Hematologic/lymphatic: denies pallor. Allergic/Immunologic: see narrative above. No history of eczema. *Regarding bee stings, no issues (She has been stung) No past medical history on file. 2 C-sections. She most likely may be menopausal (no menses for 3 years). No past surgical history on file. Current Outpatient Medications Medication Sig Dispense Refill levoFLOXacin (LEVAQUIN) 500 MG tablet Cyanocobalamin (VITAMIN B 12 PO) Take by mouth No current facility-administered medications for this visit. No family history on file. Allergies: NKDA. PE: Nursing note and Vital signs reviewed. BP 138/82 Comment: manually taken Pulse 72 Ht 167.6 cm Wt 59 kg BMI 20.98 kg/m Constitutional: She was awake, alert and in no apparent distress. She had some cough. Conjunctivae: clear. Nasal mucosa: mildly atrophic Nasal turbinates: mildly enlarged. No polyps visualized. Tympanic membranes: clear. Throat: clear. She did not have cervical adenopathy. Lungs: clear to auscultation bilaterally. Cardio: regular rate and rhythm. Musculoskeletal: good upper extremity strength bilaterally. Neuro: oriented to time and place, good interaction. Skin: upper extremities clear at this visit. *Due to her [facility] order spirometry at [facility], I held off on spirometry at this visit. *At this time, food and environmental allergen testing does not appear to be indicated and she agreed. Rober Gimenez is a 47yo WF with a several year history of Chronic, idiopathic/spontaneous urticaria and none for 3 years and a history of Pulmonary nodules and used to see Dr. Perdomo ([facility]) but had not seen him for 5 years. She was also found to have possible bronchiectasis on chest CT and was seen by Dr. Meeks ([facility] in [place]) and is due to undergo spirometry at [facility]. She has used Pulmicort 0.5mg in the past and she was found on 12/16/22 IgG-307, IgA<5, IgM-30 and IgE<2. Most likely her low IgG is contributing to her bronchiectasis and most likely she is a candidate for Hizentra and the dosing for Hizentra is 100mg/kg per week and this comes 4g/20ml so a good dose for her could be 8g/week. At this time, I think further laboratory studies are indicated and I discussed this with her. The benefits, side effects of the treatment and treatment alternatives were discussed. P (more content not included)... [facility] 11-06-2022 History of Present illness Narrative Subjective HPI HPI Ofe Gimenez is a 47 year old female who presents today for CC of cough, congestion, bilat eye redness/drainage. This started 1 week ago. Has tried atb eye drops and otc medication for relief. Symptoms are worsened by nothing. Risk factors sick exposures at work/childcare. Hx of asthma. .Patient presents with: Chest Congestion: Cough, ST x7 days Conjunctivitis bilateral x7 days PAST MEDICAL HISTORY Diagnosis Date Environmental allergies Pneumonia hospitalized x2 PAST SURGICAL HISTORY Procedure Laterality Date SECTION HX 12/10/1995 SECTION HX 04/09/2003 ALLERGIES Patient has no known allergies. MEDICATIONS ipratropium-albuterol (DUONEB) 0.5 mg-3 mg(2.5 mg base)/3 mL nebu Inhale 3 mL as instructed every 4 hours as needed for wheezing/shortness of breath. doxycycline monohydrate 100 mg tablet Take 1 tablet by mouth twice daily for 7 days. predniSONE (DELTASONE) 20 mg tablet Take 2 tablets by mouth once daily for 5 days. ciprofloxacin HCl (CILOXAN) 0.3 % ophthalmic solution Use 1 Drop in both eyes four times daily for 7 days. famotidine (PEPCID ORAL) Take 1 tablet by mouth twice daily. albuterol sulfate (PROAIR RESPICLICK) 90 mcg/actuation aepb Inhale 2 Puffs as instructed every 4 hours as needed (wheezing/shortness of breath). Cetirizine (ZYRTEC) 10 mg cap Take 1 tablet by mouth daily at bedtime. FAMILY HISTORY Problem Relation Age of Onset Hypertension Mother Diabetes Mother Thyroid Mother Heart Mother Heart Attack Father Social History Tobacco Use Smoking status: Never Smokeless tobacco: Never Vaping Use Vaping Use: Never used Review of Systems Constitutional: Negative for chills and fever. HENT: Positive for congestion and sore throat. Negative for ear discharge, ear pain and nosebleeds. Eyes: Positive for discharge and redness. Negative for blurred vision, double vision, photophobia and pain. Respiratory: Positive for cough and sputum production. Negative for shortness of breath and wheezing. Musculoskeletal: Negative for neck pain. Skin: Negative for itching and rash. Neurological: Negative for headaches. Objective Blood pressure 142/92, pulse 107, temperature 37.4 C (99.3 F), resp. rate 18, weight 65 kg (143 lb 6.4 oz), last menstrual period 12/21/2015, SpO2 96 %. Physical Exam Constitutional: General: She is not in acute distress. Appearance: She is not toxic-appearing or diaphoretic. HENT: Head: Normocephalic and atraumatic. Right Ear: Hearing, tympanic membrane, ear canal and external ear normal. Left Ear: Hearing, tympanic membrane, ear canal and external ear normal. Nose: Nose normal. Mouth/Throat: Pharynx: Uvula midline. No pharyngeal swelling, oropharyngeal exudate, posterior oropharyngeal erythema or uvula swelling. Eyes: General: Lids are normal. No scleral icterus. Right eye: No discharge. Left eye: No discharge. Conjunctiva/sclera: Right eye: Right conjunctiva is injected. Left eye: Left conjunctiva is injected. Pupils: Pupils are equal, round, and reactive to light. Neck: Trachea: Trachea normal. Cardiovascular: Rate and Rhythm: Normal rate and regular rhythm. Heart sounds: Normal heart sounds. Pulmonary: Effort: Pulmonary effort is normal. Breath sounds: Rhonchi (scattereb bilat) present. No decreased breath sounds, wheezing or rales. Musculoskeletal: Cervical back: Normal range of motion and neck supple. Lymphadenopathy: Cervical: No cervical adenopathy. Right cervical: No superficial cervical adenopathy. Left cervical: No superficial cervical adenopathy. Skin: Findings: No rash. Neurological: Mental Status: She is alert and oriented to person, place, and time. ASSESSMENT/PLAN: 1. Sinobronchitis - ICD9: 473.9, 490, ICD10: J32.9, J40 (primary diagnosis) No xray at time of exam. - Will begin treatment with as per antibiotic as written, see orders - Supportive care with plenty of fluids, rest, and analgesia prn. - Follow up in 3-5 days if symptoms persist or worsen. -If you experience chest pain/shortness of breath go to ER - DOXYCYCLINE MONOHYDRATE 100 MG TABLET - PREDNISONE 20 MG TABLET 2. Bacterial conjunctivitis - ICD9: 372.39, 041.9, ICD10: H10.9 Bacterial - see medication orders - course and contagiousness issues discussed, including hand washing. - Instructed to call if high fever, development of periorbital redness or swelling, eye pain, visual changes, concerns or if symptoms persist. - CIPROFLOXACIN 0.3 % EYE DROPS 3. History of asthma - ICD9: V12.69, ICD10: Z87.09 Order steroid -If you experience chest pain/shortness of breath go to ER Continue inhaler use. - PREDNISONE 20 MG TABLET Ramon Peterson APRN.ANGEL documented in this encounter [facility] 01-23-2022 Note HNO ID: [id number] Author: Ramon Peterson APRN.ANGEL Service: ? Author Type: Nurse Practitioner Type: Progress Notes Filed: 01/23/2022 10:11 AM Note Text: Subjective HPI HPI Ofe Gimenez is a 46 year old female who presents today for CC of cough, st. This started cough, st. Has tried 1.5 weeks ago/worsening past few days/feverish. Symptoms are worsened by nothing. Risk factors hx of asthma like illness. Past day both eyes red/crusty. nonsmoker. .Patient presents with: Cough: cough, ST, and irritated eyes x 1.5 weeks PAST MEDICAL HISTORY Diagnosis Date - Environmental allergies - Pneumonia hospitalized x2 PAST SURGICAL HISTORY Procedure Laterality Date - SECTION HX 12/10/1995 - SECTION HX 04/09/2003 ALLERGIES Patient has no known allergies. MEDICATIONS ipratropium-albuterol (DUONEB) 0.5 mg-3 mg(2.5 mg base)/3 mL nebu Inhale 3 mL as instructed every 4 hours as needed for wheezing/shortness of breath. famotidine (PEPCID ORAL) Take 1 tablet by mouth twice daily. albuterol sulfate (PROAIR RESPICLICK) 90 mcg/actuation aepb Inhale 2 Puffs as instructed every 4 hours as needed (wheezing/shortness of breath). Cetirizine (ZYRTEC) 10 mg cap Take 1 tablet by mouth daily at bedtime. FAMILY HISTORY Problem Relation Age of Onset - Hypertension Mother - Diabetes Mother - Thyroid Mother - Heart Mother - Heart Attack Father Social History Tobacco Use - Smoking status: Never Smoker - Smokeless tobacco: Never Used Vaping Use - Vaping Use: Never used Substance Use Topics - Alcohol use: Not on file - Drug use: Not on file Review of Systems Constitutional: Positive for chills, fever and malaise/fatigue. HENT: Positive for congestion and sore throat. Negative for ear pain and nosebleeds. Respiratory: Positive for cough and sputum production. Negative for shortness of breath and wheezing. Cardiovascular: Negative for chest pain. Musculoskeletal: Negative for neck pain. Skin: Negative for itching and rash. Objective Blood pressure 146/88, pulse 89, temperature 37.4 ?C (99.4 ?F), temperature source Tympanic, resp. rate 18, weight 62.3 kg (137 lb 6.4 oz), last menstrual period 12/21/2015, SpO2 97 %. Physical Exam Constitutional: General: She is not in acute distress. Appearance: She is not toxic-appearing or diaphoretic. HENT: Head: Normocephalic and atraumatic. Right Ear: Hearing, tympanic membrane and external ear normal. Left Ear: Hearing, tympanic membrane, ear canal and external ear normal. Nose: No mucosal edema. Mouth/Throat: Pharynx: Uvula midline. Eyes: General: Right eye: No discharge. Left eye: No discharge. Conjunctiva/sclera: Right eye: Right conjunctiva is injected. Left eye: Left conjunctiva is injected. Cardiovascular: Rate and Rhythm: Normal rate and regular rhythm. Heart sounds: Normal heart sounds, S1 normal and S2 normal. Pulmonary: Effort: Pulmonary effort is normal. Breath sounds: Normal breath sounds. Comments: Harsh/loose cough during visit. Lymphadenopathy: Cervical: Right cervical: No superficial cervical adenopathy. Left cervical: No superficial cervical adenopathy. Comments: No cervical lymphadenopathy bilaterally Neurological: Mental Status: She is alert and oriented to person, place, and time. Gait: Gait is intact. ASSESSMENT/PLAN: 1. Lower resp. tract infection - ICD9: 519.8, ICD10: J22 (primary diagnosis) No xray at time of exam. - DOXYCYCLINE MONOHYDRATE 100 MG TABLET - PREDNISONE 20 MG TABLET - POLYMYXIN B SULFATE 10,000 UNIT-TRIMETHOPRIM 1 MG/ML EYE DROPS 2. Conjunctivitis of both eyes, unspecified conjunctivitis type - ICD9: 372.30, ICD10: H10.9 - see medication orders - course and contagiousness issues discussed, including hand washing. - Instructed to call if high fever, development of periorbital redness or swelling, eye pain, visual changes, concerns or if symptoms persist. Agrees to plan Declines brittny Peterson APRN.[facility] 01-23-2022 History of Present illness Narrative Subjective HPI HPI Ofe Gimenez is a 46 year old female who presents today for CC of cough, st. This started cough, st. Has tried 1.5 weeks ago/worsening past few days/feverish. Symptoms are worsened by nothing. Risk factors hx of asthma like illness. Past day both eyes red/crusty. nonsmoker. .Patient presents with: Cough: cough, ST, and irritated eyes x 1.5 weeks PAST MEDICAL HISTORY Diagnosis Date Environmental allergies Pneumonia hospitalized x2 PAST SURGICAL HISTORY Procedure Laterality Date SECTION HX 12/10/1995 SECTION HX 04/09/2003 ALLERGIES Patient has no known allergies. MEDICATIONS ipratropium-albuterol (DUONEB) 0.5 mg-3 mg(2.5 mg base)/3 mL nebu Inhale 3 mL as instructed every 4 hours as needed for wheezing/shortness of breath. famotidine (PEPCID ORAL) Take 1 tablet by mouth twice daily. albuterol sulfate (PROAIR RESPICLICK) 90 mcg/actuation aepb Inhale 2 Puffs as instructed every 4 hours as needed (wheezing/shortness of breath). Cetirizine (ZYRTEC) 10 mg cap Take 1 tablet by mouth daily at bedtime. FAMILY HISTORY Problem Relation Age of Onset Hypertension Mother Diabetes Mother Thyroid Mother Heart Mother Heart Attack Father Social History Tobacco Use Smoking status: Never Smoker Smokeless tobacco: Never Used Vaping Use Vaping Use: Never used Substance Use Topics Alcohol use: Not on file Drug use: Not on file Review of Systems Constitutional: Positive for chills, fever and malaise/fatigue. HENT: Positive for congestion and sore throat. Negative for ear pain and nosebleeds. Respiratory: Positive for cough and sputum production. Negative for shortness of breath and wheezing. Cardiovascular: Negative for chest pain. Musculoskeletal: Negative for neck pain. Skin: Negative for itching and rash. Objective Blood pressure 146/88, pulse 89, temperature 37.4 C (99.4 F), temperature source Tympanic, resp. rate 18, weight 62.3 kg (137 lb 6.4 oz), last menstrual period 12/21/2015, SpO2 97 %. Physical Exam Constitutional: General: She is not in acute distress. Appearance: She is not toxic-appearing or diaphoretic. HENT: Head: Normocephalic and atraumatic. Right Ear: Hearing, tympanic membrane and external ear normal. Left Ear: Hearing, tympanic membrane, ear canal and external ear normal. Nose: No mucosal edema. Mouth/Throat: Pharynx: Uvula midline. Eyes: General: Right eye: No discharge. Left eye: No discharge. Conjunctiva/sclera: Right eye: Right conjunctiva is injected. Left eye: Left conjunctiva is injected. Cardiovascular: Rate and Rhythm: Normal rate and regular rhythm. Heart sounds: Normal heart sounds, S1 normal and S2 normal. Pulmonary: Effort: Pulmonary effort is normal. Breath sounds: Normal breath sounds. Comments: Harsh/loose cough during visit. Lymphadenopathy: Cervical: Right cervical: No superficial cervical adenopathy. Left cervical: No superficial cervical adenopathy. Comments: No cervical lymphadenopathy bilaterally Neurological: Mental Status: She is alert and oriented to person, place, and time. Gait: Gait is intact. ASSESSMENT/PLAN: 1. Lower resp. tract infection - ICD9: 519.8, ICD10: J22 (primary diagnosis) No xray at time of exam. - DOXYCYCLINE MONOHYDRATE 100 MG TABLET - PREDNISONE 20 MG TABLET - POLYMYXIN B SULFATE 10,000 UNIT-TRIMETHOPRIM 1 MG/ML EYE DROPS 2. Conjunctivitis of both eyes, unspecified conjunctivitis type - ICD9: 372.30, ICD10: H10.9 - see medication orders - course and contagiousness issues discussed, including hand washing. - Instructed to call if high fever, development of periorbital redness or swelling, eye pain, visual changes, concerns or if symptoms persist. Agrees to plan Declines avs Ramon Peterson APRN.ANGEL documented in this encounter [facility] 08-28-2021 Note HNO ID: [id number] Author: Melva Reyna APRN.CNP Service: ? Author Type: Nurse Practitioner Type: Progress Notes Filed: 08/28/2021 9:16 AM Note Text: Subjective HPI HPI Ofe Gimenez is a 46 year old female who presents today for CC of cough, congestion, wheezing, red eyes and drainage. She states she is also wheezing Symptoms include: Fever (?100.4F): No or Chills: No Cough: Yes Shortness of breath: No or Difficulty breathing: No Fatigue: No Muscle aches: No Headache: Yes New loss of smell or taste: No Sore throat: No Nasal congestion: Yes or Rhinorrhea: Yes Nausea: No or Vomiting: No Diarrhea: No OTC meds/remedies that patient has tried: old prescription for conjunctivitis. High risk category assessment No high risk factors Exposures: Sick contacts? No Family or close contacts with confirmed/probable COVID-19 in last 14 days? No BP 142/82 Pulse 86 Temp 36.8 ?C (98.3 ?F) (Tympanic) Resp 18 Wt 66.5 kg (146 lb 9.6 oz) [facility] 12/21/2015 SpO2 98% BMI 24.21 kg/m? Social History Tobacco Use - Smoking status: Never Smoker - Smokeless tobacco: Never Used Vaping Use - Vaping Use: Never used Substance Use Topics - Alcohol use: Not on file - Drug use: Not on file PAST MEDICAL HISTORY Diagnosis Date - Environmental allergies - Pneumonia hospitalized x2 I have confirmed and edited as necessary, the [facility] Review of Systems Constitutional: Positive for malaise/fatigue. Negative for chills and fever. HENT: Positive for congestion and sinus pain. Negative for ear pain and sore throat. Eyes: Positive for discharge and redness. Respiratory: Positive for cough and wheezing. Negative for sputum production and shortness of breath. Cardiovascular: Negative for chest pain. Gastrointestinal: Negative for abdominal pain, diarrhea, nausea and vomiting. Musculoskeletal: Negative for myalgias. Neurological: Positive for headaches. Objective Physical Exam Vitals and nursing note reviewed. HENT: Head: Normocephalic and atraumatic. Right Ear: Tympanic membrane, ear canal and external ear normal. Left Ear: Tympanic membrane, ear canal and external ear normal. Nose: Mucosal edema, congestion and rhinorrhea present. Right Sinus: Maxillary sinus tenderness present. No frontal sinus tenderness. Left Sinus: Maxillary sinus tenderness present. No frontal sinus tenderness. Mouth/Throat: Mouth: Mucous membranes are moist. Pharynx: Uvula midline. Posterior oropharyngeal erythema present. No oropharyngeal exudate or uvula swelling. Eyes: General: Lids are normal. Vision grossly intact. Right eye: Discharge (clear) present. Left eye: Discharge (clear) present. Extraocular Movements: Extraocular movements intact. Conjunctiva/sclera: Right eye: Right conjunctiva is injected. Left eye: Left conjunctiva is injected. Pupils: Pupils are equal, round, and reactive to light. Funduscopic exam: Right eye: Red reflex present. Left eye: Red reflex present. Cardiovascular: Rate and Rhythm: Normal rate and regular rhythm. Heart sounds: Normal heart sounds. Pulmonary: Effort: Pulmonary effort is normal. Breath sounds: Examination of the right-lower field reveals wheezing. Examination of the left-lower field reveals wheezing. Wheezing present. Lymphadenopathy: Head: Right side of head: No submental, submandibular or tonsillar adenopathy. Left side of head: No submental, submandibular or tonsillar adenopathy. Cervical: No cervical adenopathy. Skin: General: Skin is warm and dry. Neurological: Mental Status: She is alert. Psychiatric: Mood and Affect: Affect normal. ASSESSMENT/PLAN: 1. Wheezing - ICD9: 786.07, ICD10: R06.2 (primary diagnosis) Nebulizer treatments as ordered 2. Viral illness - ICD9: 079.99, ICD10: B34.9 - Discussed viral etiology and rationale for treatment. - Symptomatic treatment with prn analgesia - Supportive care with fluids and rest 3. Suspected COVID-19 virus infection - ICD9: V01.79, ICD10: Z20.822 Home isolation Testing ordered Comfort measures discussed - see patient instructions. When to seek higher level of care Notified in 24-48 hours with results, available on [employer] - COVID WITH FLUA+B, ROUTINE 4. Acute conjunctivitis of both eyes, unspecified acute conjunctivitis type - ICD9: 372.00, ICD10: H10.33 Viral - see medication orders - course and contagiousness issues discussed, including hand washing. - Instructed to call if high fever, development of periorbital redness or swelling, eye pain, visual changes, concerns or if symptoms persist. Diagnosis and treatment plan were discussed and questions were answered to the patient's satisfaction. Pt acknowledged understanding of concepts and follow up plan. Specific signs and symptoms that would indicate the need for higher level of care were discussed in detail warranting prompt ER evaluation. Melva Reyna APRN.[facility] 08-11-2021 Note HNO ID: [id number] Author: RT Samuel(R) Service: ? Author Type: Technologist Type: Progress Notes Filed: 08/11/2021 7:04 PM Note Text: Radiology Service Progress Note PATIENT NAME: fOe Gimenez DATE OF SERVICE: August 11, 2021 TIME: 6:58 PM PATIENT IDENTITY VERIFICATION COMPLETED USING TWO (2) IDENTIFIERS: Name and Date of confirmed by patient verbally. FALL SCREENING: Has the patient had 2 falls in the last year or 1 fall with injury or currently using an Ambulatory Assistive Device (Walker, Cane, Wheelchair, Crutches, etc.)? No PATIENT GENDER DATA: Female. status: : No status: NO. PATIENT RELEVANT IMPLANT DATA REVIEWED: Not Applicable RADIOLOGY DEPARTMENT: General X-ray: Exam(s) Completed: Chest X-Ray PERIPHERAL IV DATA: Not applicable SIGNED BY: RT Samuel(R) August 11, 2021 6:58 PM [facility] 08-11-2021 Note HNO ID: [id number] Author: Lilia Walker APRN.[facility] Service: ? Author Type: Nurse Practitioner Type: Progress Notes Filed: 08/11/2021 6:57 PM Note Text: CC: Patient presents with: URI: x 4-5 days HPI: Ofe Gimenez is a 46 year old female who presents to the office with complaint of respiratory symptoms, chest congestion, cough, productive and fever for 5 days. Symptoms are worsening Associated symptoms includes fever and cough. Denies wheezing, dyspnea, fatigue, nausea, vomiting and diarrhea. Treatments tried include nothing so far. with no relief of symptoms. Sick contacts: unknown. History of asthma, frequent episodes of bronchitis, chronic bronchitis, bronchiectasis or COPD: No Smoker: No Seasonal/environmental allergies: No The ROS is otherwise negative. The patient's pmh, medications, allergies, and past visits are reviewed. PHYSICAL EXAM: BP 130/76 Pulse 87 Temp 36.7 ?C (98.1 ?F) (Left Tympanic) Resp 16 Wt 65.4 kg (144 lb 3.2 oz) LMP 12/21/2015 SpO2 97% BMI 23.81 kg/m? General appearance: alert, cooperative, pleasant, in no acute distress Head: Normocephalic Eyes: EOM's intact, conjunctiva pink and moist, no icterus, sclera white, non-injected Heart: Negative. RRR without obvious murmur, gallop, or rubs. No ectopy. Lungs: clear to auscultation, without rales or wheeze, good air exchange PAST MEDICAL HISTORY Diagnosis Date - Environmental allergies - Pneumonia hospitalized x2 PAST SURGICAL HISTORY Procedure Laterality Date - SECTION HX 12/10/1995 - SECTION HX 04/09/2003 ALLERGIES Patient has no known allergies. MEDICATIONS ipratropium-albuterol (DUONEB) 0.5 mg-3 mg(2.5 mg base)/3 mL nebu Inhale 3 mL as instructed every 4 hours as needed for wheezing/shortness of breath. doxycycline monohydrate 100 mg tablet Take 1 tablet by mouth twice daily for 10 days. predniSONE (DELTASONE) 10 mg tablet Take 4 tabs daily for 3 days, then 2 tabs daily for 3 days, then 1 tab daily for 3 days with food. famotidine (PEPCID ORAL) Take 1 tablet by mouth twice daily. albuterol sulfate (PROAIR RESPICLICK) 90 mcg/actuation aepb Inhale 2 Puffs as instructed every 4 hours as needed (wheezing/shortness of breath). Cetirizine (ZYRTEC) 10 mg cap Take 1 tablet by mouth daily at bedtime. FAMILY HISTORY Problem Relation Age of Onset - Hypertension Mother - Diabetes Mother - Thyroid Mother - Heart Mother - Heart Attack Father Social History Tobacco Use - Smoking status: Never Smoker - Smokeless tobacco: Never Used Vaping Use - Vaping Use: Never used Substance Use Topics - Alcohol use: Not on file - Drug use: Not on file ASSESSMENT/PLAN: 1. Cough - ICD9: 786.2, ICD10: R05.9 - XR CHEST 2V FRONTAL/LAT - COVID WITH FLUA+B, ROUTINE Xray will be read and patient will be called with results. Prescription instructions reviewed with patient as applicable. Doxycycline bid for 10 days and a steroid taper for 9 days. Potential red flag symptoms discussed with the patient. Reviewed appropriate action plan to take if red flag symptoms occur. Patient agreeable to treatment plan. Lilia Walker APRN.[facility] 05-14-2021 Note HNO ID: [id number] Author: Camille Hurt PA-C Service: ? Author Type: Physician Tax Representative Type: Progress Notes Filed: 05/15/2021 9:13 AM Note Text: Subjective HPI HPI Ofe Gimenez is a 45 year old female who presents today for CC of chest congestion, cough, runny nose x 1 week, but symptoms seem to have been progressive in the past1 . States her primary concern today is pneumonia, as she has had it several times in the past year. She states that she is carrying on fine, but she does feel a little short of breath when laying down at night. 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 Has had low grade fever in the past 48 hours, with Tmax 100.1. Symptoms include: Fever (?100.4F): Yes or Chills: No Cough: Yes Shortness of breath: Yes or Difficulty breathing: Yes Fatigue: Yes Muscle aches: Yes Headache: No New loss of smell or taste: No Sore throat: No Nasal congestion: Yes or Rhinorrhea: Yes Nausea: No or Vomiting: No Diarrhea: No OTC meds/remedies that patient has tried: acetaminophen. High risk category assessment Chronic lung disease Exposures: Sick contacts? No Family or close contacts with confirmed/probable COVID-19 in last 14 days? No Social History Tobacco Use - Smoking status: Never Smoker - Smokeless tobacco: Never Used Vaping Use - Vaping Use: Never used Substance Use Topics - Alcohol use: Not on file - Drug use: Not on file PAST MEDICAL HISTORY Diagnosis Date - Environmental allergies - Pneumonia hospitalized x2 I have confirmed and edited as necessary, the [facility] Review of Systems Constitutional: Positive for fever and malaise/fatigue. Negative for chills. HENT: Positive for congestion. Negative for ear pain and sore throat. Respiratory: Positive for cough and wheezing. Negative for sputum production and shortness of breath. Cardiovascular: Negative for chest pain. Gastrointestinal: Negative for diarrhea. Musculoskeletal: Positive for myalgias. Neurological: Negative for headaches. Weakness: Objective BP 160/92 Pulse 92 Temp 37.6 ?C (99.7 ?F) Resp 16 Wt 63.9 kg (140 lb 12.8 oz) LMP 12/21/2015 SpO2 98% BMI 23.25 kg/m? Physical Exam HENT: Head: Normocephalic. Right Ear: Tympanic membrane, ear canal and external ear normal. No drainage. No middle ear effusion. Tympanic membrane is not perforated, erythematous, retracted or bulging. Left Ear: Ear canal normal. No drainage. No middle ear effusion. Tympanic membrane is not perforated, erythematous, retracted or bulging. Nose: No rhinorrhea. Right Sinus: No maxillary sinus tenderness or frontal sinus tenderness. Left Sinus: No maxillary sinus tenderness or frontal sinus tenderness. Mouth/Throat: Pharynx: Uvula midline. No oropharyngeal exudate or posterior oropharyngeal erythema. Tonsils: No tonsillar abscesses. Eyes: General: Lids are normal. Conjunctiva/sclera: Conjunctivae normal. Cardiovascular: Rate and Rhythm: Normal rate and regular rhythm. Heart sounds: S1 normal and S2 normal. No friction rub. Pulmonary: Effort: Pulmonary effort is normal. Breath sounds: Wheezing (Mildy wheezing noted in bilateral apices and bases) present. No rhonchi or rales. Comments: Wet cough noted throughout duration of exam Lymphadenopathy: Head: Right side of head: No submental, submandibular, tonsillar, preauricular, posterior auricular or occipital adenopathy. Left side of head: No submental, submandibular, tonsillar, preauricular, posterior auricular or occipital adenopathy. Cervical: Right cervical: No superficial or posterior cervical adenopathy. Left cervical: No superficial or posterior cervical adenopathy. Neurological: Mental Status: She is oriented to person, place, and time. ASSESSMENT/PLAN: 1. LRTI (lower respiratory tract infection) - ICD9: 519.8, ICD10: J22 XR currently unavailable, per pt request will go ahead and empirically tx for pneumonia given her extensive history - tx w/ Doxy per above - 2019 CORONAVIRUS - DOXYCYCLINE HYCLATE 100 MG TABLET - IPRATROPIUM 0.5 MG-ALBUTEROL 3 MG (2.5 MG BASE)/3 ML NEBULIZATION SOLN Covid testing ordered; Results will be released to [facility] in 24-48 hours Discussed quarantine, social distancing, hand washing/proper hygiene. Rest, fluids, OTC medications discussed -Reviewed red flags (ie chest pain, shortness of breath) with patient and when to seek care sooner. Camille Hurt PA-C [facility] Sinobronchitis- Primary Unspecified sinusitis (chronic) Bacterial conjunctivitis Other conjunctivitis History of asthma Personal history of other diseases of respiratory system [facility] Recurrent infections Unspecified infectious and parasitic diseases Low serum IgG for age [facility] Name Dates Details How to Access Health Informa tion Online using Patient Portal and [employer] Apps Indication:Nonsmoker Start:22-Jan-2021 Instruction Type:Patient Education Patient Instructions Indication:Nonsmoker Start:22-Jan-2021 Instruction Type:Provider Instructions for Treatment Patient Instructions Indication:Nonsmoker Start:12-Oct-2020 Instruction Type:Provider Instructions for Treatment How to Access Health Informa tion Online using Patient Portal and [employer] Apps Indication:Nonsmoker Start:12-Oct-2020 Instruction Type:Patient Education Patient Instructions Indication:BMI 21.0-21.9, adult Start:14-Sep-2020 Instruction Type:Provider Instructions for Treatment How to Access Health Informa tion Online using Patient Portal and [employer] Apps Indication:BMI 21.0-21.9, adult Start:14-Sep-2020 Instruction Type:Patient Education How to access health informa tion online Indication:Nonsmoker Start:10-Jan-2020 Instruction Type:Patient Education How to access health informa tion online - Detail Indication:Nonsmoker Start:10-Jan-2020 Instruction Type:Patient Education Patient Instructions Indication:Nonsmoker Start:10-Jan-2020 Instruction Type:Provider Instructions for Treatment How to access health informa tion online Indication:BMI 20.0-20.9, adult Start:16-Dec-2019 Instruction Type:Patient Education How to access health informa tion online - Detail Indication:BMI 20.0-20.9, adult Start:16-Dec-2019 Instruction Type:Patient Education Patient Instructions Indication:Nonsmoker Start:16-Dec-2019 Instruction Type:Provider Instructions for Treatment How to access health informa tion online Indication:Nonsmoker Start:11-Dec-2019 Instruction Type:Patient Education How to access health informa tion online - Detail Indication:Nonsmoker Start:11-Dec-2019 Instruction Type:Patient Education Patient Instructions Indication:Nonsmoker Start:11-Dec-2019 Instruction Type:Provider Instructions for Treatment Patient Instructions Indication:Unspecified bacterial pneumonia Start:04-Feb-2013 Instruction Type:Provider Instructions for Treatment [facility] Work Phone: Instructions* Name Dates Details How to Access Health Informa tion Online using Patient Portal and 3rd [employer] Apps Indication:Nonsmoker Start:22-Jan-2021 Instruction Type:Patient Education Patient Instructions Indication:Nonsmoker Start:22-Jan-2021 Instruction Type:Provider Instructions for Treatment Patient Instructions Indication:Nonsmoker Start:12-Oct-2020 Instruction Type:Provider Instructions for Treatment How to Access Health Informa tion Online using Patient Portal and [employer] Apps Indication:Nonsmoker Start:12-Oct-2020 Instruction Type:Patient Education Patient Instructions Indication:BMI 21.0-21.9, adult Start:14-Sep-2020 Instruction Type:Provider Instructions for Treatment How to Access Health Informa tion Online using Patient Portal and [employer]rd [employer] Apps Indication:BMI 21.0-21.9, adult Start:14-Sep-2020 Instruction Type:Patient Education How to access health informa tion online Indication:Nonsmoker Start:10-Jan-2020 Instruction Type:Patient Education How to access health informa tion online - Detail Indication:Nonsmoker Start:10-Jan-2020 Instruction Type:Patient Education Patient Instructions Indication:Nonsmoker Start:10-Jan-2020 Instruction Type:Provider Instructions for Treatment How to access health informa tion online Indication:BMI 20.0-20.9, adult Start:16-Dec-2019 Instruction Type:Patient Education How to access health informa tion online - Detail Indication:BMI 20.0-20.9, adult Start:16-Dec-2019 Instruction Type:Patient Education Patient Instructions Indication:Nonsmoker Start:16-Dec-2019 Instruction Type:Provider Instructions for Treatment How to access health informa tion online Indication:Nonsmoker Start:11-Dec-2019 Instruction Type:Patient Education How to access health informa tion online - Detail Indication:Nonsmoker Start:11-Dec-2019 Instruction Type:Patient Education Patient Instructions Indication:Nonsmoker Start:11-Dec-2019 Instruction Type:Provider Instructions for Treatment Patient Instructions Indication:Unspecified bacterial pneumonia Start:04-Feb-2013 Instruction Type:Provider Instructions for Treatment [facility] Work Phone: Instructions* Name Dates Details Patient Instructions Indication:Nonsmoker Start:05-Jul-2021 Instruction Type:Provider Instructions for Treatment How to Access Health Informa tion Online using Patient Portal and [employer]rd [employer] Apps Indication:Nonsmoker Start:05-Jul-2021 Instruction Type:Patient Education Patient Instructions Indication:Nonsmoker Start:02-Jul-2021 Instruction Type:Provider Instructions for Treatment How to Access Health Informa tion Online using Patient Portal and [employer]rd [employer] Apps Indication:Nonsmoker Start:02-Jul-2021 Instruction Type:Patient Education Patient Instructions Indication:Nonsmoker Start:09-Feb-2021 Instruction Type:Provider Instructions for Treatment How to Access Health Informa tion Online using Patient Portal and [employer]rd [employer] Apps Indication:Nonsmoker Start:09-Feb-2021 Instruction Type:Patient Education How to Access Health Informa tion Online using Patient Portal and [employer]rd [employer] Apps Indication:Nonsmoker Start:22-Jan-2021 Instruction Type:Patient Education Patient Instructions Indication:Nonsmoker Start:22-Jan-2021 Instruction Type:Provider Instructions for Treatment Patient Instructions Indication:Nonsmoker Start:12-Oct-2020 Instruction Type:Provider Instructions for Treatment How to Access Health Informa tion Online using Patient Portal and [employer]rd [employer] Apps Indication:Nonsmoker Start:12-Oct-2020 Instruction Type:Patient Education Patient Instructions Indication:BMI 21.0-21.9, adult Start:14-Sep-2020 Instruction Type:Provider Instructions for Treatment How to Access Health Informa tion Online using Patient Portal and [employer]rd [employer] Apps Indication:BMI 21.0-21.9, adult Start:14-Sep-2020 Instruction Type:Patient Education How to access health informa tion online Indication:Nonsmoker Start:10-Jan-2020 Instruction Type:Patient Education How to access health informa tion online - Detail Indication:Nonsmoker Start:10-Jan-2020 Instruction Type:Patient Education Patient Instructions Indication:Nonsmoker Start:10-Jan-2020 Instruction Type:Provider Instructions for Treatment How to access health informa tion online Indication:BMI 20.0-20.9, adult Start:16-Dec-2019 Instruction Type:Patient Education How to access health informa tion online - Detail Indication:BMI 20.0-20.9, adult Start:16-Dec-2019 Instruction Type:Patient Education Patient Instructions Indication:Nonsmoker Start:16-Dec-2019 Instruction Type:Provider Instructions for Treatment How to access health informa tion online Indication:Nonsmoker Start:11-Dec-2019 Instruction Type:Patient Education How to access health informa tion online - Detail Indication:Nonsmoker Start:11-Dec-2019 Instruction Type:Patient Education Patient Instructions Indication:Nonsmoker Start:11-Dec-2019 Instruction Type:Provider Instructions for Treatment Patient Instructions Indication:Unspecified bacterial pneumonia Start:04-Feb-2013 Instruction Type:Provider Instructions for Treatment [facility]; [facility] Work Phone: Instructions* Name Dates Details Patient Instructions Indication:Nonsmoker Start:15-Oct-2021 Instruction Type:Provider Instructions for Treatment How to Access Health Informa tion Online using Patient Portal and [employer]rd [employer] Apps Indication:Nonsmoker Start:15-Oct-2021 Instruction Type:Patient Education Patient Instructions Indication:Nonsmoker Start:05-Jul-2021 Instruction Type:Provider Instructions for Treatment How to Access Health Informa tion Online using Patient Portal and [employer]rd [employer] Apps Indication:Nonsmoker Start:05-Jul-2021 Instruction Type:Patient Education Patient Instructions Indication:Nonsmoker Start:02-Jul-2021 Instruction Type:Provider Instructions for Treatment How to Access Health Informa tion Online using Patient Portal and [employer]rd [employer] Apps Indication:Nonsmoker Start:02-Jul-2021 Instruction Type:Patient Education Patient Instructions Indication:Nonsmoker Start:09-Feb-2021 Instruction Type:Provider Instructions for Treatment How to Access Health Informa tion Online using Patient Portal and [employer]rd [employer] Apps Indication:Nonsmoker Start:09-Feb-2021 Instruction Type:Patient Education How to Access Health Informa tion Online using Patient Portal and [employer]rd [employer] Apps Indication:Nonsmoker Start:22-Jan-2021 Instruction Type:Patient Education Patient Instructions Indication:Nonsmoker Start:22-Jan-2021 Instruction Type:Provider Instructions for Treatment Patient Instructions Indication:Nonsmoker Start:12-Oct-2020 Instruction Type:Provider Instructions for Treatment How to Access Health Informa tion Online using Patient Portal and [employer]rd [employer] Apps Indication:Nonsmoker Start:12-Oct-2020 Instruction Type:Patient Education Patient Instructions Indication:BMI 21.0-21.9, adult Start:14-Sep-2020 Instruction Type:Provider Instructions for Treatment How to Access Health Informa tion Online using Patient Portal and [employer]rd [employer] Apps Indication:BMI 21.0-21.9, adult Start:14-Sep-2020 Instruction Type:Patient Education How to access health informa tion online Indication:Nonsmoker Start:10-Jan-2020 Instruction Type:Patient Education How to access health informa tion online - Detail Indication:Nonsmoker Start:10-Jan-2020 Instruction Type:Patient Education Patient Instructions Indication:Nonsmoker Start:10-Jan-2020 Instruction Type:Provider Instructions for Treatment How to access health informa tion online Indication:BMI 20.0-20.9, adult Start:16-Dec-2019 Instruction Type:Patient Education How to access health informa tion online - Detail Indication:BMI 20.0-20.9, adult Start:16-Dec-2019 Instruction Type:Patient Education Patient Instructions Indication:Nonsmoker Start:16-Dec-2019 Instruction Type:Provider Instructions for Treatment How to access health informa tion online Indication:Nonsmoker Start:11-Dec-2019 Instruction Type:Patient Education How to access health informa tion online - Detail Indication:Nonsmoker Start:11-Dec-2019 Instruction Type:Patient Education Patient Instructions Indication:Nonsmoker Start:11-Dec-2019 Instruction Type:Provider Instructions for Treatment Patient Instructions Indication:Unspecified bacterial pneumonia Start:04-Feb-2013 Instruction Type:Provider Instructions for Treatment [facility]; [facility] Work Phone: Instructions* Name Dates Details Patient Instructions Indication:Nonsmoker Start:22-Feb-2022 Instruction Type:Provider Instructions for Treatment How to Access Health Informa tion Online using Patient Portal and [employer]rd [employer] Apps Indication:Nonsmoker Start:22-Feb-2022 Instruction Type:Patient Education Patient Instructions Indication:Nonsmoker Start:15-Oct-2021 Instruction Type:Provider Instructions for Treatment How to Access Health Informa tion Online using Patient Portal and [employer]rd [employer] Apps Indication:Nonsmoker Start:15-Oct-2021 Instruction Type:Patient Education Patient Instructions Indication:Nonsmoker Start:05-Jul-2021 Instruction Type:Provider Instructions for Treatment How to Access Health Informa tion Online using Patient Portal and [employer]rd [employer] Apps Indication:Nonsmoker Start:05-Jul-2021 Instruction Type:Patient Education Patient Instructions Indication:Nonsmoker Start:02-Jul-2021 Instruction Type:Provider Instructions for Treatment How to Access Health Informa tion Online using Patient Portal and [employer]rd [employer] Apps Indication:Nonsmoker Start:02-Jul-2021 Instruction Type:Patient Education Patient Instructions Indication:Nonsmoker Start:09-Feb-2021 Instruction Type:Provider Instructions for Treatment How to Access Health Informa tion Online using Patient Portal and [employer]rd [employer] Apps Indication:Nonsmoker Start:09-Feb-2021 Instruction Type:Patient Education How to Access Health Informa tion Online using Patient Portal and [employer] Apps Indication:Nonsmoker Start:22-Jan-2021 Instruction Type:Patient Education Patient Instructions Indication:Nonsmoker Start:22-Jan-2021 Instruction Type:Provider Instructions for Treatment Patient Instructions Indication:Nonsmoker Start:12-Oct-2020 Instruction Type:Provider Instructions for Treatment How to Access Health Informa tion Online using Patient Portal and [employer]rd [employer] Apps Indication:Nonsmoker Start:12-Oct-2020 Instruction Type:Patient Education Patient Instructions Indication:BMI 21.0-21.9, adult Start:14-Sep-2020 Instruction Type:Provider Instructions for Treatment How to Access Health Informa tion Online using Patient Portal and [employer]rd [employer] Apps Indication:BMI 21.0-21.9, adult Start:14-Sep-2020 Instruction Type:Patient Education How to access health informa tion online Indication:Nonsmoker Start:10-Jan-2020 Instruction Type:Patient Education How to access health informa tion online - Detail Indication:Nonsmoker Start:10-Jan-2020 Instruction Type:Patient Education Patient Instructions Indication:Nonsmoker Start:10-Jan-2020 Instruction Type:Provider Instructions for Treatment How to access health informa tion online Indication:BMI 20.0-20.9, adult Start:16-Dec-2019 Instruction Type:Patient Education How to access health informa tion online - Detail Indication:BMI 20.0-20.9, adult Start:16-Dec-2019 Instruction Type:Patient Education Patient Instructions Indication:Nonsmoker Start:16-Dec-2019 Instruction Type:Provider Instructions for Treatment How to access health informa tion online Indication:Nonsmoker Start:11-Dec-2019 Instruction Type:Patient Education How to access health informa tion online - Detail Indication:Nonsmoker Start:11-Dec-2019 Instruction Type:Patient Education Patient Instructions Indication:Nonsmoker Start:11-Dec-2019 Instruction Type:Provider Instructions for Treatment Patient Instructions Indication:Unspecified bacterial pneumonia Start:04-Feb-2013 Instruction Type:Provider Instructions for Treatment [facility]; [facility] Work Phone: Instructions* Name Dates Details Patient Instructions Indication:Nonsmoker Start:22-Feb-2022 Instruction Type:Provider Instructions for Treatment How to Access Health Informa tion Online using Patient Portal and [employer] Apps Indication:Nonsmoker Start:22-Feb-2022 Instruction Type:Patient Education Patient Instructions Indication:Nonsmoker Start:15-Oct-2021 Instruction Type:Provider Instructions for Treatment How to Access Health Informa tion Online using Patient Portal and [employer]rd [employer] Apps Indication:Nonsmoker Start:15-Oct-2021 Instruction Type:Patient Education Patient Instructions Indication:Nonsmoker Start:05-Jul-2021 Instruction Type:Provider Instructions for Treatment How to Access Health Informa tion Online using Patient Portal and [employer]rd [employer] Apps Indication:Nonsmoker Start:05-Jul-2021 Instruction Type:Patient Education Patient Instructions Indication:Nonsmoker Start:02-Jul-2021 Instruction Type:Provider Instructions for Treatment How to Access Health Informa tion Online using Patient Portal and [employer]rd [employer] Apps Indication:Nonsmoker Start:02-Jul-2021 Instruction Type:Patient Education Patient Instructions Indication:Nonsmoker Start:09-Feb-2021 Instruction Type:Provider Instructions for Treatment How to Access Health Informa tion Online using Patient Portal and [employer]rd [employer] Apps Indication:Nonsmoker Start:09-Feb-2021 Instruction Type:Patient Education How to Access Health Informa tion Online using Patient Portal and [employer]rd [employer] Apps Indication:Nonsmoker Start:22-Jan-2021 Instruction Type:Patient Education Patient Instructions Indication:Nonsmoker Start:22-Jan-2021 Instruction Type:Provider Instructions for Treatment Patient Instructions Indication:Nonsmoker Start:12-Oct-2020 Instruction Type:Provider Instructions for Treatment How to Access Health Informa tion Online using Patient Portal and [employer] Apps Indication:Nonsmoker Start:12-Oct-2020 Instruction Type:Patient Education Patient Instructions Indication:BMI 21.0-21.9, adult Start:14-Sep-2020 Instruction Type:Provider Instructions for Treatment How to Access Health Informa tion Online using Patient Portal and [employer]rd [employer] Apps Indication:BMI 21.0-21.9, adult Start:14-Sep-2020 Instruction Type:Patient Education How to access health informa tion online Indication:Nonsmoker Start:10-Jan-2020 Instruction Type:Patient Education How to access health informa tion online - Detail Indication:Nonsmoker Start:10-Jan-2020 Instruction Type:Patient Education Patient Instructions Indication:Nonsmoker Start:10-Jan-2020 Instruction Type:Provider Instructions for Treatment How to access health informa tion online Indication:BMI 20.0-20.9, adult Start:16-Dec-2019 Instruction Type:Patient Education How to access health informa tion online - Detail Indication:BMI 20.0-20.9, adult Start:16-Dec-2019 Instruction Type:Patient Education Patient Instructions Indication:Nonsmoker Start:16-Dec-2019 Instruction Type:Provider Instructions for Treatment How to access health informa tion online Indication:Nonsmoker Start:11-Dec-2019 Instruction Type:Patient Education How to access health informa tion online - Detail Indication:Nonsmoker Start:11-Dec-2019 Instruction Type:Patient Education Patient Instructions Indication:Nonsmoker Start:11-Dec-2019 Instruction Type:Provider Instructions for Treatment Patient Instructions Indication:Unspecified bacterial pneumonia Start:04-Feb-2013 Instruction Type:Provider Instructions for Treatment [facility]; [facility] Work Phone: Instructions* Name Dates Details Patient Instructions Indication:BMI 23.0-23.9, adult Start:10-Jun-2022 Instruction Type:Provider Instructions for Treatment How to Access Health Informa tion Online using Patient Portal and [employer]rd [employer] Apps Indication:BMI 23.0-23.9, adult Start:10-Jun-2022 Instruction Type:Patient Education Patient Instructions Indication:Nonsmoker Start:26-Apr-2022 Instruction Type:Provider Instructions for Treatment How to Access Health Informa tion Online using Patient Portal and [employer] Apps Indication:Nonsmoker Start:26-Apr-2022 Instruction Type:Patient Education Patient Instructions Indication:Nonsmoker Start:22-Feb-2022 Instruction Type:Provider Instructions for Treatment How to Access Health Informa tion Online using Patient Portal and [employer] Apps Indication:Nonsmoker Start:22-Feb-2022 Instruction Type:Patient Education Patient Instructions Indication:Nonsmoker Start:15-Oct-2021 Instruction Type:Provider Instructions for Treatment How to Access Health Informa tion Online using Patient Portal and [employer] Apps Indication:Nonsmoker Start:15-Oct-2021 Instruction Type:Patient Education Patient Instructions Indication:Nonsmoker Start:05-Jul-2021 Instruction Type:Provider Instructions for Treatment How to Access Health Informa tion Online using Patient Portal and [employer] Apps Indication:Nonsmoker Start:05-Jul-2021 Instruction Type:Patient Education Patient Instructions Indication:Nonsmoker Start:02-Jul-2021 Instruction Type:Provider Instructions for Treatment How to Access Health Informa tion Online using Patient Portal and [employer] Apps Indication:Nonsmoker Start:02-Jul-2021 Instruction Type:Patient Education Patient Instructions Indication:Nonsmoker Start:09-Feb-2021 Instruction Type:Provider Instructions for Treatment How to Access Health Informa tion Online using Patient Portal and [employer] Apps Indication:Nonsmoker Start:09-Feb-2021 Instruction Type:Patient Education How to Access Health Informa tion Online using Patient Portal and [employer] Apps Indication:Nonsmoker Start:22-Jan-2021 Instruction Type:Patient Education Patient Instructions Indication:Nonsmoker Start:22-Jan-2021 Instruction Type:Provider Instructions for Treatment Patient Instructions Indication:Nonsmoker Start:12-Oct-2020 Instruction Type:Provider Instructions for Treatment How to Access Health Informa tion Online using Patient Portal and [employer] Apps Indication:Nonsmoker Start:12-Oct-2020 Instruction Type:Patient Education Patient Instructions Indication:BMI 21.0-21.9, adult Start:14-Sep-2020 Instruction Type:Provider Instructions for Treatment How to Access Health Informa tion Online using Patient Portal and [employer] Apps Indication:BMI 21.0-21.9, adult Start:14-Sep-2020 Instruction Type:Patient Education How to access health informa tion online Indication:Nonsmoker Start:10-Jan-2020 Instruction Type:Patient Education How to access health informa tion online - Detail Indication:Nonsmoker Start:10-Jan-2020 Instruction Type:Patient Education Patient Instructions Indication:Nonsmoker Start:10-Jan-2020 Instruction Type:Provider Instructions for Treatment How to access health informa tion online Indication:BMI 20.0-20.9, adult Start:16-Dec-2019 Instruction Type:Patient Education How to access health informa tion online - Detail Indication:BMI 20.0-20.9, adult Start:16-Dec-2019 Instruction Type:Patient Education Patient Instructions Indication:Nonsmoker Start:16-Dec-2019 Instruction Type:Provider Instructions for Treatment How to access health informa tion online Indication:Nonsmoker Start:11-Dec-2019 Instruction Type:Patient Education How to access health informa tion online - Detail Indication:Nonsmoker Start:11-Dec-2019 Instruction Type:Patient Education Patient Instructions Indication:Nonsmoker Start:11-Dec-2019 Instruction Type:Provider Instructions for Treatment Patient Instructions Indication:Unspecified bacterial pneumonia Start:04-Feb-2013 Instruction Type:Provider Instructions for Treatment [facility]; [facility] Work Phone: Instructions* Name Dates Details Patient Instructions Indication:BMI 23.0-23.9, adult Start:10-Jun-2022 Instruction Type:Provider Instructions for Treatment How to Access Health Informa tion Online using Patient Portal and [employer] Apps Indication:BMI 23.0-23.9, adult Start:10-Jun-2022 Instruction Type:Patient Education Patient Instructions Indication:Nonsmoker Start:26-Apr-2022 Instruction Type:Provider Instructions for Treatment How to Access Health Informa tion Online using Patient Portal and [employer] Apps Indication:Nonsmoker Start:26-Apr-2022 Instruction Type:Patient Education Patient Instructions Indication:Nonsmoker Start:22-Feb-2022 Instruction Type:Provider Instructions for Treatment How to Access Health Informa tion Online using Patient Portal and [employer] Apps Indication:Nonsmoker Start:22-Feb-2022 Instruction Type:Patient Education Patient Instructions Indication:Nonsmoker Start:15-Oct-2021 Instruction Type:Provider Instructions for Treatment How to Access Health Informa tion Online using Patient Portal and [employer] Apps Indication:Nonsmoker Start:15-Oct-2021 Instruction Type:Patient Education Patient Instructions Indication:Nonsmoker Start:05-Jul-2021 Instruction Type:Provider Instructions for Treatment How to Access Health Informa tion Online using Patient Portal and [employer] Apps Indication:Nonsmoker Start:05-Jul-2021 Instruction Type:Patient Education Patient Instructions Indication:Nonsmoker Start:02-Jul-2021 Instruction Type:Provider Instructions for Treatment How to Access Health Informa tion Online using Patient Portal and [employer] Apps Indication:Nonsmoker Start:02-Jul-2021 Instruction Type:Patient Education Patient Instructions Indication:Nonsmoker Start:09-Feb-2021 Instruction Type:Provider Instructions for Treatment How to Access Health Informa tion Online using Patient Portal and [employer] Apps Indication:Nonsmoker Start:09-Feb-2021 Instruction Type:Patient Education How to Access Health Informa tion Online using Patient Portal and [employer] Apps Indication:Nonsmoker Start:22-Jan-2021 Instruction Type:Patient Education Patient Instructions Indication:Nonsmoker Start:22-Jan-2021 Instruction Type:Provider Instructions for Treatment Patient Instructions Indication:Nonsmoker Start:12-Oct-2020 Instruction Type:Provider Instructions for Treatment How to Access Health Informa tion Online using Patient Portal and [employer] Apps Indication:Nonsmoker Start:12-Oct-2020 Instruction Type:Patient Education Patient Instructions Indication:BMI 21.0-21.9, adult Start:14-Sep-2020 Instruction Type:Provider Instructions for Treatment How to Access Health Informa tion Online using Patient Portal and [employer] Apps Indication:BMI 21.0-21.9, adult Start:14-Sep-2020 Instruction Type:Patient Education How to access health informa tion online Indication:Nonsmoker Start:10-Jan-2020 Instruction Type:Patient Education How to access health informa tion online - Detail Indication:Nonsmoker Start:10-Jan-2020 Instruction Type:Patient Education Patient Instructions Indication:Nonsmoker Start:10-Jan-2020 Instruction Type:Provider Instructions for Treatment How to access health informa tion online Indication:BMI 20.0-20.9, adult Start:16-Dec-2019 Instruction Type:Patient Education How to access health informa tion online - Detail Indication:BMI 20.0-20.9, adult Start:16-Dec-2019 Instruction Type:Patient Education Patient Instructions Indication:Nonsmoker Start:16-Dec-2019 Instruction Type:Provider Instructions for Treatment How to access health informa tion online Indication:Nonsmoker Start:11-Dec-2019 Instruction Type:Patient Education How to access health informa tion online - Detail Indication:Nonsmoker Start:11-Dec-2019 Instruction Type:Patient Education Patient Instructions Indication:Nonsmoker Start:11-Dec-2019 Instruction Type:Provider Instructions for Treatment Patient Instructions Indication:Unspecified bacterial pneumonia Start:04-Feb-2013 Instruction Type:Provider Instructions for Treatment [facility]; [facility] Work Phone: Instructions* Name Dates Details Patient Instructions Indication:BMI 23.0-23.9, adult Start:10-Jun-2022 Instruction Type:Provider Instructions for Treatment How to Access Health Informa tion Online using Patient Portal and [employer] Apps Indication:BMI 23.0-23.9, adult Start:10-Jun-2022 Instruction Type:Patient Education Patient Instructions Indication:Nonsmoker Start:26-Apr-2022 Instruction Type:Provider Instructions for Treatment How to Access Health Informa tion Online using Patient Portal and [employer] Apps Indication:Nonsmoker Start:26-Apr-2022 Instruction Type:Patient Education Patient Instructions Indication:Nonsmoker Start:22-Feb-2022 Instruction Type:Provider Instructions for Treatment How to Access Health Informa tion Online using Patient Portal and [employer] Apps Indication:Nonsmoker Start:22-Feb-2022 Instruction Type:Patient Education Patient Instructions Indication:Nonsmoker Start:15-Oct-2021 Instruction Type:Provider Instructions for Treatment How to Access Health Informa tion Online using Patient Portal and [employer] Apps Indication:Nonsmoker Start:15-Oct-2021 Instruction Type:Patient Education Patient Instructions Indication:Nonsmoker Start:05-Jul-2021 Instruction Type:Provider Instructions for Treatment How to Access Health Informa tion Online using Patient Portal and [employer] Apps Indication:Nonsmoker Start:05-Jul-2021 Instruction Type:Patient Education Patient Instructions Indication:Nonsmoker Start:02-Jul-2021 Instruction Type:Provider Instructions for Treatment How to Access Health Informa tion Online using Patient Portal and [employer] Apps Indication:Nonsmoker Start:02-Jul-2021 Instruction Type:Patient Education Patient Instructions Indication:Nonsmoker Start:09-Feb-2021 Instruction Type:Provider Instructions for Treatment How to Access Health Informa tion Online using Patient Portal and [employer] Apps Indication:Nonsmoker Start:09-Feb-2021 Instruction Type:Patient Education How to Access Health Informa tion Online using Patient Portal and [employer] Apps Indication:Nonsmoker Start:22-Jan-2021 Instruction Type:Patient Education Patient Instructions Indication:Nonsmoker Start:22-Jan-2021 Instruction Type:Provider Instructions for Treatment Patient Instructions Indication:Nonsmoker Start:12-Oct-2020 Instruction Type:Provider Instructions for Treatment How to Access Health Informa tion Online using Patient Portal and [employer] Apps Indication:Nonsmoker Start:12-Oct-2020 Instruction Type:Patient Education Patient Instructions Indication:BMI 21.0-21.9, adult Start:14-Sep-2020 Instruction Type:Provider Instructions for Treatment How to Access Health Informa tion Online using Patient Portal and [employer] Apps Indication:BMI 21.0-21.9, adult Start:14-Sep-2020 Instruction Type:Patient Education How to access health informa tion online Indication:Nonsmoker Start:10-Jan-2020 Instruction Type:Patient Education How to access health informa tion online - Detail Indication:Nonsmoker Start:10-Jan-2020 Instruction Type:Patient Education Patient Instructions Indication:Nonsmoker Start:10-Jan-2020 Instruction Type:Provider Instructions for Treatment How to access health informa tion online Indication:BMI 20.0-20.9, adult Start:16-Dec-2019 Instruction Type:Patient Education How to access health informa tion online - Detail Indication:BMI 20.0-20.9, adult Start:16-Dec-2019 Instruction Type:Patient Education Patient Instructions Indication:Nonsmoker Start:16-Dec-2019 Instruction Type:Provider Instructions for Treatment How to access health informa tion online Indication:Nonsmoker Start:11-Dec-2019 Instruction Type:Patient Education How to access health informa tion online - Detail Indication:Nonsmoker Start:11-Dec-2019 Instruction Type:Patient Education Patient Instructions Indication:Nonsmoker Start:11-Dec-2019 Instruction Type:Provider Instructions for Treatment Patient Instructions Indication:Unspecified bacterial pneumonia Start:04-Feb-2013 Instruction Type:Provider Instructions for Treatment [facility]; [facility] Work Phone: Instructions* Name Dates Details Patient Instructions Indication:BMI 23.0-23.9, adult Start:10-Jun-2022 Instruction Type:Provider Instructions for Treatment How to Access Health Informa tion Online using Patient Portal and [employer] Apps Indication:BMI 23.0-23.9, adult Start:10-Jun-2022 Instruction Type:Patient Education Patient Instructions Indication:Nonsmoker Start:26-Apr-2022 Instruction Type:Provider Instructions for Treatment How to Access Health Informa tion Online using Patient Portal and [employer] Apps Indication:Nonsmoker Start:26-Apr-2022 Instruction Type:Patient Education Patient Instructions Indication:Nonsmoker Start:22-Feb-2022 Instruction Type:Provider Instructions for Treatment How to Access Health Informa tion Online using Patient Portal and [employer] Apps Indication:Nonsmoker Start:22-Feb-2022 Instruction Type:Patient Education Patient Instructions Indication:Nonsmoker Start:15-Oct-2021 Instruction Type:Provider Instructions for Treatment How to Access Health Informa tion Online using Patient Portal and [employer] Apps Indication:Nonsmoker Start:15-Oct-2021 Instruction Type:Patient Education Patient Instructions Indication:Nonsmoker Start:05-Jul-2021 Instruction Type:Provider Instructions for Treatment How to Access Health Informa tion Online using Patient Portal and [employer] Apps Indication:Nonsmoker Start:05-Jul-2021 Instruction Type:Patient Education Patient Instructions Indication:Nonsmoker Start:02-Jul-2021 Instruction Type:Provider Instructions for Treatment How to Access Health Informa tion Online using Patient Portal and [employer] Apps Indication:Nonsmoker Start:02-Jul-2021 Instruction Type:Patient Education Patient Instructions Indication:Nonsmoker Start:09-Feb-2021 Instruction Type:Provider Instructions for Treatment How to Access Health Informa tion Online using Patient Portal and [employer] Apps Indication:Nonsmoker Start:09-Feb-2021 Instruction Type:Patient Education How to Access Health Informa tion Online using Patient Portal and [employer] Apps Indication:Nonsmoker Start:22-Jan-2021 Instruction Type:Patient Education Patient Instructions Indication:Nonsmoker Start:22-Jan-2021 Instruction Type:Provider Instructions for Treatment Patient Instructions Indication:Nonsmoker Start:12-Oct-2020 Instruction Type:Provider Instructions for Treatment How to Access Health Informa tion Online using Patient Portal and [employer] Apps Indication:Nonsmoker Start:12-Oct-2020 Instruction Type:Patient Education Patient Instructions Indication:BMI 21.0-21.9, adult Start:14-Sep-2020 Instruction Type:Provider Instructions for Treatment How to Access Health Informa tion Online using Patient Portal and [employer] Apps Indication:BMI 21.0-21.9, adult Start:14-Sep-2020 Instruction Type:Patient Education How to access health informa tion online Indication:Nonsmoker Start:10-Jan-2020 Instruction Type:Patient Education How to access health informa tion online - Detail Indication:Nonsmoker Start:10-Jan-2020 Instruction Type:Patient Education Patient Instructions Indication:Nonsmoker Start:10-Jan-2020 Instruction Type:Provider Instructions for Treatment How to access health informa tion online Indication:BMI 20.0-20.9, adult Start:16-Dec-2019 Instruction Type:Patient Education How to access health informa tion online - Detail Indication:BMI 20.0-20.9, adult Start:16-Dec-2019 Instruction Type:Patient Education Patient Instructions Indication:Nonsmoker Start:16-Dec-2019 Instruction Type:Provider Instructions for Treatment How to access health informa tion online Indication:Nonsmoker Start:11-Dec-2019 Instruction Type:Patient Education How to access health informa tion online - Detail Indication:Nonsmoker Start:11-Dec-2019 Instruction Type:Patient Education Patient Instructions Indication:Nonsmoker Start:11-Dec-2019 Instruction Type:Provider Instructions for Treatment Patient Instructions Indication:Unspecified bacterial pneumonia Start:04-Feb-2013 Instruction Type:Provider Instructions for Treatment [facility]; [facility] Work Phone: Instructions* Name Dates Details Patient Instructions Indication:BMI 23.0-23.9, adult Start:10-Jun-2022 Instruction Type:Provider Instructions for Treatment How to Access Health Informa tion Online using Patient Portal and [employer] Apps Indication:BMI 23.0-23.9, adult Start:10-Jun-2022 Instruction Type:Patient Education Patient Instructions Indication:Nonsmoker Start:26-Apr-2022 Instruction Type:Provider Instructions for Treatment How to Access Health Informa tion Online using Patient Portal and [employer] Apps Indication:Nonsmoker Start:26-Apr-2022 Instruction Type:Patient Education Patient Instructions Indication:Nonsmoker Start:22-Feb-2022 Instruction Type:Provider Instructions for Treatment How to Access Health Informa tion Online using Patient Portal and [employer] Apps Indication:Nonsmoker Start:22-Feb-2022 Instruction Type:Patient Education Patient Instructions Indication:Nonsmoker Start:15-Oct-2021 Instruction Type:Provider Instructions for Treatment How to Access Health Informa tion Online using Patient Portal and [employer] Apps Indication:Nonsmoker Start:15-Oct-2021 Instruction Type:Patient Education Patient Instructions Indication:Nonsmoker Start:05-Jul-2021 Instruction Type:Provider Instructions for Treatment How to Access Health Informa tion Online using Patient Portal and [employer] Apps Indication:Nonsmoker Start:05-Jul-2021 Instruction Type:Patient Education Patient Instructions Indication:Nonsmoker Start:02-Jul-2021 Instruction Type:Provider Instructions for Treatment How to Access Health Informa tion Online using Patient Portal and [employer] Apps Indication:Nonsmoker Start:02-Jul-2021 Instruction Type:Patient Education Patient Instructions Indication:Nonsmoker Start:09-Feb-2021 Instruction Type:Provider Instructions for Treatment How to Access Health Informa tion Online using Patient Portal and [employer] Apps Indication:Nonsmoker Start:09-Feb-2021 Instruction Type:Patient Education How to Access Health Informa tion Online using Patient Portal and [employer] Apps Indication:Nonsmoker Start:22-Jan-2021 Instruction Type:Patient Education Patient Instructions Indication:Nonsmoker Start:22-Jan-2021 Instruction Type:Provider Instructions for Treatment Patient Instructions Indication:Nonsmoker Start:12-Oct-2020 Instruction Type:Provider Instructions for Treatment How to Access Health Informa tion Online using Patient Portal and [employer] Apps Indication:Nonsmoker Start:12-Oct-2020 Instruction Type:Patient Education Patient Instructions Indication:BMI 21.0-21.9, adult Start:14-Sep-2020 Instruction Type:Provider Instructions for Treatment How to Access Health Informa tion Online using Patient Portal and [employer] Apps Indication:BMI 21.0-21.9, adult Start:14-Sep-2020 Instruction Type:Patient Education How to access health informa tion online Indication:Nonsmoker Start:10-Jan-2020 Instruction Type:Patient Education How to access health informa tion online - Detail Indication:Nonsmoker Start:10-Jan-2020 Instruction Type:Patient Education Patient Instructions Indication:Nonsmoker Start:10-Jan-2020 Instruction Type:Provider Instructions for Treatment How to access health informa tion online Indication:BMI 20.0-20.9, adult Start:16-Dec-2019 Instruction Type:Patient Education How to access health informa tion online - Detail Indication:BMI 20.0-20.9, adult Start:16-Dec-2019 Instruction Type:Patient Education Patient Instructions Indication:Nonsmoker Start:16-Dec-2019 Instruction Type:Provider Instructions for Treatment How to access health informa tion online Indication:Nonsmoker Start:11-Dec-2019 Instruction Type:Patient Education How to access health informa tion online - Detail Indication:Nonsmoker Start:11-Dec-2019 Instruction Type:Patient Education Patient Instructions Indication:Nonsmoker Start:11-Dec-2019 Instruction Type:Provider Instructions for Treatment Patient Instructions Indication:Unspecified bacterial pneumonia Start:04-Feb-2013 Instruction Type:Provider Instructions for Treatment [facility]; [facility] Work Phone: Instructions* Name Dates Details Patient Instructions Indication:Nonsmoker Start:12-Sep-2022 Instruction Type:Provider Instructions for Treatment How to Access Health Informa tion Online using Patient Portal and [employer] Apps Indication:Nonsmoker Start:12-Sep-2022 Instruction Type:Patient Education Patient Instructions Indication:BMI 23.0-23.9, adult Start:10-Jun-2022 Instruction Type:Provider Instructions for Treatment How to Access Health Informa tion Online using Patient Portal and [employer] Indication:BMI 23.0-23.9, adult Start:10-Jun-2022 Instruction Type:Patient Education Patient Instructions Indication:Nonsmoker Start:26-Apr-2022 Instruction Type:Provider Instructions for Treatment How to Access Health Informa tion Online using Patient Portal and [employer] Apps Indication:Nonsmoker Start:26-Apr-2022 Instruction Type:Patient Education Patient Instructions Indication:Nonsmoker Start:22-Feb-2022 Instruction Type:Provider Instructions for Treatment How to Access Health Informa tion Online using Patient Portal and [employer] Apps Indication:Nonsmoker Start:22-Feb-2022 Instruction Type:Patient Education Patient Instructions Indication:Nonsmoker Start:15-Oct-2021 Instruction Type:Provider Instructions for Treatment How to Access Health Informa tion Online using Patient Portal and [employer] Apps Indication:Nonsmoker Start:15-Oct-2021 Instruction Type:Patient Education Patient Instructions Indication:Nonsmoker Start:05-Jul-2021 Instruction Type:Provider Instructions for Treatment How to Access Health Informa tion Online using Patient Portal and [employer] Apps Indication:Nonsmoker Start:05-Jul-2021 Instruction Type:Patient Education Patient Instructions Indication:Nonsmoker Start:02-Jul-2021 Instruction Type:Provider Instructions for Treatment How to Access Health Informa tion Online using Patient Portal and [employer] Apps Indication:Nonsmoker Start:02-Jul-2021 Instruction Type:Patient Education Patient Instructions Indication:Nonsmoker Start:09-Feb-2021 Instruction Type:Provider Instructions for Treatment How to Access Health Informa tion Online using Patient Portal and [employer] Apps Indication:Nonsmoker Start:09-Feb-2021 Instruction Type:Patient Education How to Access Health Informa tion Online using Patient Portal and [employer] Apps Indication:Nonsmoker Start:22-Jan-2021 Instruction Type:Patient Education Patient Instructions Indication:Nonsmoker Start:22-Jan-2021 Instruction Type:Provider Instructions for Treatment Patient Instructions Indication:Nonsmoker Start:12-Oct-2020 Instruction Type:Provider Instructions for Treatment How to Access Health Informa tion Online using Patient Portal and [employer] Apps Indication:Nonsmoker Start:12-Oct-2020 Instruction Type:Patient Education Patient Instructions Indication:BMI 21.0-21.9, adult Start:14-Sep-2020 Instruction Type:Provider Instructions for Treatment How to Access Health Informa tion Online using Patient Portal and [employer] Apps Indication:BMI 21.0-21.9, adult Start:14-Sep-2020 Instruction Type:Patient Education How to access health informa tion online Indication:Nonsmoker Start:10-Jan-2020 Instruction Type:Patient Education How to access health informa tion online - Detail Indication:Nonsmoker Start:10-Jan-2020 Instruction Type:Patient Education Patient Instructions Indication:Nonsmoker Start:10-Jan-2020 Instruction Type:Provider Instructions for Treatment How to access health informa tion online Indication:BMI 20.0-20.9, adult Start:16-Dec-2019 Instruction Type:Patient Education How to access health informa tion online - Detail Indication:BMI 20.0-20.9, adult Start:16-Dec-2019 Instruction Type:Patient Education Patient Instructions Indication:Nonsmoker Start:16-Dec-2019 Instruction Type:Provider Instructions for Treatment How to access health informa tion online Indication:Nonsmoker Start:11-Dec-2019 Instruction Type:Patient Education How to access health informa tion online - Detail Indication:Nonsmoker Start:11-Dec-2019 Instruction Type:Patient Education Patient Instructions Indication:Nonsmoker Start:11-Dec-2019 Instruction Type:Provider Instructions for Treatment Patient Instructions Indication:Unspecified bacterial pneumonia Start:04-Feb-2013 Instruction Type:Provider Instructions for Treatment [facility]; [facility] Work Phone: Instructions* Name Dates Details Patient Instructions Indication:Nonsmoker Start:12-Sep-2022 Instruction Type:Provider Instructions for Treatment How to Access Health Informa tion Online using Patient Portal and [employer] Apps Indication:Nonsmoker Start:12-Sep-2022 Instruction Type:Patient Education Patient Instructions Indication:BMI 23.0-23.9, adult Start:10-Jun-2022 Instruction Type:Provider Instructions for Treatment How to Access Health Informa tion Online using Patient Portal and [employer] Apps Indication:BMI 23.0-23.9, adult Start:10-Jun-2022 Instruction Type:Patient Education Patient Instructions Indication:Nonsmoker Start:26-Apr-2022 Instruction Type:Provider Instructions for Treatment How to Access Health Informa tion Online using Patient Portal and [employer] Apps Indication:Nonsmoker Start:26-Apr-2022 Instruction Type:Patient Education Patient Instructions Indication:Nonsmoker Start:22-Feb-2022 Instruction Type:Provider Instructions for Treatment How to Access Health Informa tion Online using Patient Portal and [employer] Apps Indication:Nonsmoker Start:22-Feb-2022 Instruction Type:Patient Education Patient Instructions Indication:Nonsmoker Start:15-Oct-2021 Instruction Type:Provider Instructions for Treatment How to Access Health Informa tion Online using Patient Portal and [employer] Apps Indication:Nonsmoker Start:15-Oct-2021 Instruction Type:Patient Education Patient Instructions Indication:Nonsmoker Start:05-Jul-2021 Instruction Type:Provider Instructions for Treatment How to Access Health Informa tion Online using Patient Portal and [employer] Apps Indication:Nonsmoker Start:05-Jul-2021 Instruction Type:Patient Education Patient Instructions Indication:Nonsmoker Start:02-Jul-2021 Instruction Type:Provider Instructions for Treatment How to Access Health Informa tion Online using Patient Portal and [employer] Apps Indication:Nonsmoker Start:02-Jul-2021 Instruction Type:Patient Education Patient Instructions Indication:Nonsmoker Start:09-Feb-2021 Instruction Type:Provider Instructions for Treatment How to Access Health Informa tion Online using Patient Portal and [employer] Apps Indication:Nonsmoker Start:09-Feb-2021 Instruction Type:Patient Education How to Access Health Informa tion Online using Patient Portal and [employer] Apps Indication:Nonsmoker Start:22-Jan-2021 Instruction Type:Patient Education Patient Instructions Indication:Nonsmoker Start:22-Jan-2021 Instruction Type:Provider Instructions for Treatment Patient Instructions Indication:Nonsmoker Start:12-Oct-2020 Instruction Type:Provider Instructions for Treatment How to Access Health Informa tion Online using Patient Portal and [employer] Apps Indication:Nonsmoker Start:12-Oct-2020 Instruction Type:Patient Education Patient Instructions Indication:BMI 21.0-21.9, adult Start:14-Sep-2020 Instruction Type:Provider Instructions for Treatment How to Access Health Informa tion Online using Patient Portal and [employer] Apps Indication:BMI 21.0-21.9, adult Start:14-Sep-2020 Instruction Type:Patient Education How to access health informa tion online Indication:Nonsmoker Start:10-Jan-2020 Instruction Type:Patient Education How to access health informa tion online - Detail Indication:Nonsmoker Start:10-Jan-2020 Instruction Type:Patient Education Patient Instructions Indication:Nonsmoker Start:10-Jan-2020 Instruction Type:Provider Instructions for Treatment How to access health informa tion online Indication:BMI 20.0-20.9, adult Start:16-Dec-2019 Instruction Type:Patient Education How to access health informa tion online - Detail Indication:BMI 20.0-20.9, adult Start:16-Dec-2019 Instruction Type:Patient Education Patient Instructions Indication:Nonsmoker Start:16-Dec-2019 Instruction Type:Provider Instructions for Treatment How to access health informa tion online Indication:Nonsmoker Start:11-Dec-2019 Instruction Type:Patient Education How to access health informa tion online - Detail Indication:Nonsmoker Start:11-Dec-2019 Instruction Type:Patient Education Patient Instructions Indication:Nonsmoker Start:11-Dec-2019 Instruction Type:Provider Instructions for Treatment Patient Instructions Indication:Unspecified bacterial pneumonia Start:04-Feb-2013 Instruction Type:Provider Instructions for Treatment [facility]; [facility] Work Phone: Instructions* Name Dates Details Patient Instructions Indication:Nonsmoker Start:12-Sep-2022 Instruction Type:Provider Instructions for Treatment How to Access Health Informa tion Online using Patient Portal and [employer] Apps Indication:Nonsmoker Start:12-Sep-2022 Instruction Type:Patient Education Patient Instructions Indication:BMI 23.0-23.9, adult Start:10-Jun-2022 Instruction Type:Provider Instructions for Treatment How to Access Health Informa tion Online using Patient Portal and [employer] Apps Indication:BMI 23.0-23.9, adult Start:10-Jun-2022 Instruction Type:Patient Education Patient Instructions Indication:Nonsmoker Start:26-Apr-2022 Instruction Type:Provider Instructions for Treatment How to Access Health Informa tion Online using Patient Portal and [employer] Apps Indication:Nonsmoker Start:26-Apr-2022 Instruction Type:Patient Education Patient Instructions Indication:Nonsmoker Start:22-Feb-2022 Instruction Type:Provider Instructions for Treatment How to Access Health Informa tion Online using Patient Portal and [employer] Apps Indication:Nonsmoker Start:22-Feb-2022 Instruction Type:Patient Education Patient Instructions Indication:Nonsmoker Start:15-Oct-2021 Instruction Type:Provider Instructions for Treatment How to Access Health Informa tion Online using Patient Portal and [employer] Apps Indication:Nonsmoker Start:15-Oct-2021 Instruction Type:Patient Education Patient Instructions Indication:Nonsmoker Start:05-Jul-2021 Instruction Type:Provider Instructions for Treatment How to Access Health Informa tion Online using Patient Portal and [employer] Apps Indication:Nonsmoker Start:05-Jul-2021 Instruction Type:Patient Education Patient Instructions Indication:Nonsmoker Start:02-Jul-2021 Instruction Type:Provider Instructions for Treatment How to Access Health Informa tion Online using Patient Portal and [employer] Apps Indication:Nonsmoker Start:02-Jul-2021 Instruction Type:Patient Education Patient Instructions Indication:Nonsmoker Start:09-Feb-2021 Instruction Type:Provider Instructions for Treatment How to Access Health Informa tion Online using Patient Portal and [employer] Apps Indication:Nonsmoker Start:09-Feb-2021 Instruction Type:Patient Education How to Access Health Informa tion Online using Patient Portal and [employer] Apps Indication:Nonsmoker Start:22-Jan-2021 Instruction Type:Patient Education Patient Instructions Indication:Nonsmoker Start:22-Jan-2021 Instruction Type:Provider Instructions for Treatment Patient Instructions Indication:Nonsmoker Start:12-Oct-2020 Instruction Type:Provider Instructions for Treatment How to Access Health Informa tion Online using Patient Portal and [employer] Apps Indication:Nonsmoker Start:12-Oct-2020 Instruction Type:Patient Education Patient Instructions Indication:BMI 21.0-21.9, adult Start:14-Sep-2020 Instruction Type:Provider Instructions for Treatment How to Access Health Informa tion Online using Patient Portal and [employer] Apps Indication:BMI 21.0-21.9, adult Start:14-Sep-2020 Instruction Type:Patient Education How to access health informa tion online Indication:Nonsmoker Start:10-Jan-2020 Instruction Type:Patient Education How to access health informa tion online - Detail Indication:Nonsmoker Start:10-Jan-2020 Instruction Type:Patient Education Patient Instructions Indication:Nonsmoker Start:10-Jan-2020 Instruction Type:Provider Instructions for Treatment How to access health informa tion online Indication:BMI 20.0-20.9, adult Start:16-Dec-2019 Instruction Type:Patient Education How to access health informa tion online - Detail Indication:BMI 20.0-20.9, adult Start:16-Dec-2019 Instruction Type:Patient Education Patient Instructions Indication:Nonsmoker Start:16-Dec-2019 Instruction Type:Provider Instructions for Treatment How to access health informa tion online Indication:Nonsmoker Start:11-Dec-2019 Instruction Type:Patient Education How to access health informa tion online - Detail Indication:Nonsmoker Start:11-Dec-2019 Instruction Type:Patient Education Patient Instructions Indication:Nonsmoker Start:11-Dec-2019 Instruction Type:Provider Instructions for Treatment Patient Instructions Indication:Unspecified bacterial pneumonia Start:04-Feb-2013 Instruction Type:Provider Instructions for Treatment [facility]; [facility] Work Phone: Instructions* Name Dates Details Patient Instructions Indication:BMI 23.0-23.9, adult Start:07-Oct-2022 Instruction Type:Provider Instructions for Treatment How to Access Health Informa tion Online using Patient Portal and [employer] Apps Indication:BMI 23.0-23.9, adult Start:07-Oct-2022 Instruction Type:Patient Education Patient Instructions Indication:Nonsmoker Start:12-Sep-2022 Instruction Type:Provider Instructions for Treatment How to Access Health Informa tion Online using Patient Portal and [employer] Apps Indication:Nonsmoker Start:12-Sep-2022 Instruction Type:Patient Education Patient Instructions Indication:BMI 23.0-23.9, adult Start:10-Jun-2022 Instruction Type:Provider Instructions for Treatment How to Access Health Informa tion Online using Patient Portal and [employer] Apps Indication:BMI 23.0-23.9, adult Start:10-Jun-2022 Instruction Type:Patient Education Patient Instructions Indication:Nonsmoker Start:26-Apr-2022 Instruction Type:Provider Instructions for Treatment How to Access Health Informa tion Online using Patient Portal and [employer] Apps Indication:Nonsmoker Start:26-Apr-2022 Instruction Type:Patient Education Patient Instructions Indication:Nonsmoker Start:22-Feb-2022 Instruction Type:Provider Instructions for Treatment How to Access Health Informa tion Online using Patient Portal and [employer] Apps Indication:Nonsmoker Start:22-Feb-2022 Instruction Type:Patient Education Patient Instructions Indication:Nonsmoker Start:15-Oct-2021 Instruction Type:Provider Instructions for Treatment How to Access Health Informa tion Online using Patient Portal and [employer] Apps Indication:Nonsmoker Start:15-Oct-2021 Instruction Type:Patient Education Patient Instructions Indication:Nonsmoker Start:05-Jul-2021 Instruction Type:Provider Instructions for Treatment How to Access Health Informa tion Online using Patient Portal and [employer]rd [employer] Apps Indication:Nonsmoker Start:05-Jul-2021 Instruction Type:Patient Education Patient Instructions Indication:Nonsmoker Start:02-Jul-2021 Instruction Type:Provider Instructions for Treatment How to Access Health Informa tion Online using Patient Portal and [employer] Apps Indication:Nonsmoker Start:02-Jul-2021 Instruction Type:Patient Education Patient Instructions Indication:Nonsmoker Start:09-Feb-2021 Instruction Type:Provider Instructions for Treatment How to Access Health Informa tion Online using Patient Portal and [employer] Apps Indication:Nonsmoker Start:09-Feb-2021 Instruction Type:Patient Education How to Access Health Informa tion Online using Patient Portal and [employer] Apps Indication:Nonsmoker Start:22-Jan-2021 Instruction Type:Patient Education Patient Instructions Indication:Nonsmoker Start:22-Jan-2021 Instruction Type:Provider Instructions for Treatment Patient Instructions Indication:Nonsmoker Start:12-Oct-2020 Instruction Type:Provider Instructions for Treatment How to Access Health Informa tion Online using Patient Portal and [employer] Apps Indication:Nonsmoker Start:12-Oct-2020 Instruction Type:Patient Education Patient Instructions Indication:BMI 21.0-21.9, adult Start:14-Sep-2020 Instruction Type:Provider Instructions for Treatment How to Access Health Informa tion Online using Patient Portal and [employer] Apps Indication:BMI 21.0-21.9, adult Start:14-Sep-2020 Instruction Type:Patient Education How to access health informa tion online Indication:Nonsmoker Start:10-Jan-2020 Instruction Type:Patient Education How to access health informa tion online - Detail Indication:Nonsmoker Start:10-Jan-2020 Instruction Type:Patient Education Patient Instructions Indication:Nonsmoker Start:10-Jan-2020 Instruction Type:Provider Instructions for Treatment How to access health informa tion online Indication:BMI 20.0-20.9, adult Start:16-Dec-2019 Instruction Type:Patient Education How to access health informa tion online - Detail Indication:BMI 20.0-20.9, adult Start:16-Dec-2019 Instruction Type:Patient Education Patient Instructions Indication:Nonsmoker Start:16-Dec-2019 Instruction Type:Provider Instructions for Treatment How to access health informa tion online Indication:Nonsmoker Start:11-Dec-2019 Instruction Type:Patient Education How to access health informa tion online - Detail Indication:Nonsmoker Start:11-Dec-2019 Instruction Type:Patient Education Patient Instructions Indication:Nonsmoker Start:11-Dec-2019 Instruction Type:Provider Instructions for Treatment Patient Instructions Indication:Unspecified bacterial pneumonia Start:04-Feb-2013 Instruction Type:Provider Instructions for Treatment [facility]; [facility] Work Phone: Instructions* Name Dates Details Patient Instructions Indication:BMI 23.0-23.9, adult Start:07-Oct-2022 Instruction Type:Provider Instructions for Treatment How to Access Health Informa tion Online using Patient Portal and [employer]rd [employer] Apps Indication:BMI 23.0-23.9, adult Start:07-Oct-2022 Instruction Type:Patient Education Patient Instructions Indication:Nonsmoker Start:12-Sep-2022 Instruction Type:Provider Instructions for Treatment How to Access Health Informa tion Online using Patient Portal and [employer] Apps Indication:Nonsmoker Start:12-Sep-2022 Instruction Type:Patient Education Patient Instructions Indication:BMI 23.0-23.9, adult Start:10-Jun-2022 Instruction Type:Provider Instructions for Treatment How to Access Health Informa tion Online using Patient Portal and [employer] Apps Indication:BMI 23.0-23.9, adult Start:10-Jun-2022 Instruction Type:Patient Education Patient Instructions Indication:Nonsmoker Start:26-Apr-2022 Instruction Type:Provider Instructions for Treatment How to Access Health Informa tion Online using Patient Portal and [employer] Apps Indication:Nonsmoker Start:26-Apr-2022 Instruction Type:Patient Education Patient Instructions Indication:Nonsmoker Start:22-Feb-2022 Instruction Type:Provider Instructions for Treatment How to Access Health Informa tion Online using Patient Portal and [employer] Apps Indication:Nonsmoker Start:22-Feb-2022 Instruction Type:Patient Education Patient Instructions Indication:Nonsmoker Start:15-Oct-2021 Instruction Type:Provider Instructions for Treatment How to Access Health Informa tion Online using Patient Portal and [employer] Apps Indication:Nonsmoker Start:15-Oct-2021 Instruction Type:Patient Education Patient Instructions Indication:Nonsmoker Start:05-Jul-2021 Instruction Type:Provider Instructions for Treatment How to Access Health Informa tion Online using Patient Portal and [employer] Apps Indication:Nonsmoker Start:05-Jul-2021 Instruction Type:Patient Education Patient Instructions Indication:Nonsmoker Start:02-Jul-2021 Instruction Type:Provider Instructions for Treatment How to Access Health Informa tion Online using Patient Portal and [employer] Apps Indication:Nonsmoker Start:02-Jul-2021 Instruction Type:Patient Education Patient Instructions Indication:Nonsmoker Start:09-Feb-2021 Instruction Type:Provider Instructions for Treatment How to Access Health Informa tion Online using Patient Portal and [employer] Apps Indication:Nonsmoker Start:09-Feb-2021 Instruction Type:Patient Education How to Access Health Informa tion Online using Patient Portal and [employer] Apps Indication:Nonsmoker Start:22-Jan-2021 Instruction Type:Patient Education Patient Instructions Indication:Nonsmoker Start:22-Jan-2021 Instruction Type:Provider Instructions for Treatment Patient Instructions Indication:Nonsmoker Start:12-Oct-2020 Instruction Type:Provider Instructions for Treatment How to Access Health Informa tion Online using Patient Portal and [employer] Apps Indication:Nonsmoker Start:12-Oct-2020 Instruction Type:Patient Education Patient Instructions Indication:BMI 21.0-21.9, adult Start:14-Sep-2020 Instruction Type:Provider Instructions for Treatment How to Access Health Informa tion Online using Patient Portal and [employer] Apps Indication:BMI 21.0-21.9, adult Start:14-Sep-2020 Instruction Type:Patient Education How to access health informa tion online Indication:Nonsmoker Start:10-Jan-2020 Instruction Type:Patient Education How to access health informa tion online - Detail Indication:Nonsmoker Start:10-Jan-2020 Instruction Type:Patient Education Patient Instructions Indication:Nonsmoker Start:10-Jan-2020 Instruction Type:Provider Instructions for Treatment How to access health informa tion online Indication:BMI 20.0-20.9, adult Start:16-Dec-2019 Instruction Type:Patient Education How to access health informa tion online - Detail Indication:BMI 20.0-20.9, adult Start:16-Dec-2019 Instruction Type:Patient Education Patient Instructions Indication:Nonsmoker Start:16-Dec-2019 Instruction Type:Provider Instructions for Treatment How to access health informa tion online Indication:Nonsmoker Start:11-Dec-2019 Instruction Type:Patient Education How to access health informa tion online - Detail Indication:Nonsmoker Start:11-Dec-2019 Instruction Type:Patient Education Patient Instructions Indication:Nonsmoker Start:11-Dec-2019 Instruction Type:Provider Instructions for Treatment Patient Instructions Indication:Unspecified bacterial pneumonia Start:04-Feb-2013 Instruction Type:Provider Instructions for Treatment [facility]; [facility] Work Phone: Instructions* Name Dates Details Patient Instructions Indication:Abnormal lung sounds Start:14-Oct-2022 Instruction Type:Provider Instructions for Treatment How to Access Health Informa tion Online using Patient Portal and [employer] Apps Indication:Abnormal lung sounds Start:14-Oct-2022 Instruction Type:Patient Education Patient Instructions Indication:BMI 23.0-23.9, adult Start:07-Oct-2022 Instruction Type:Provider Instructions for Treatment How to Access Health Informa tion Online using Patient Portal and [employer] Apps Indication:BMI 23.0-23.9, adult Start:07-Oct-2022 Instruction Type:Patient Education Patient Instructions Indication:Nonsmoker Start:12-Sep-2022 Instruction Type:Provider Instructions for Treatment How to Access Health Informa tion Online using Patient Portal and [employer] Apps Indication:Nonsmoker Start:12-Sep-2022 Instruction Type:Patient Education Patient Instructions Indication:BMI 23.0-23.9, adult Start:10-Jun-2022 Instruction Type:Provider Instructions for Treatment How to Access Health Informa tion Online using Patient Portal and [employer] Apps Indication:BMI 23.0-23.9, adult Start:10-Jun-2022 Instruction Type:Patient Education Patient Instructions Indication:Nonsmoker Start:26-Apr-2022 Instruction Type:Provider Instructions for Treatment How to Access Health Informa tion Online using Patient Portal and [employer] Apps Indication:Nonsmoker Start:26-Apr-2022 Instruction Type:Patient Education Patient Instructions Indication:Nonsmoker Start:22-Feb-2022 Instruction Type:Provider Instructions for Treatment How to Access Health Informa tion Online using Patient Portal and [employer] Apps Indication:Nonsmoker Start:22-Feb-2022 Instruction Type:Patient Education Patient Instructions Indication:Nonsmoker Start:15-Oct-2021 Instruction Type:Provider Instructions for Treatment How to Access Health Informa tion Online using Patient Portal and [employer]rd [employer] Apps Indication:Nonsmoker Start:15-Oct-2021 Instruction Type:Patient Education Patient Instructions Indication:Nonsmoker Start:05-Jul-2021 Instruction Type:Provider Instructions for Treatment How to Access Health Informa tion Online using Patient Portal and [employer]rd [employer] Apps Indication:Nonsmoker Start:05-Jul-2021 Instruction Type:Patient Education Patient Instructions Indication:Nonsmoker Start:02-Jul-2021 Instruction Type:Provider Instructions for Treatment How to Access Health Informa tion Online using Patient Portal and [employer]rd [employer] Apps Indication:Nonsmoker Start:02-Jul-2021 Instruction Type:Patient Education Patient Instructions Indication:Nonsmoker Start:09-Feb-2021 Instruction Type:Provider Instructions for Treatment How to Access Health Informa tion Online using Patient Portal and [employer]rd [employer] Apps Indication:Nonsmoker Start:09-Feb-2021 Instruction Type:Patient Education How to Access Health Informa tion Online using Patient Portal and [employer]rd [employer] Apps Indication:Nonsmoker Start:22-Jan-2021 Instruction Type:Patient Education Patient Instructions Indication:Nonsmoker Start:22-Jan-2021 Instruction Type:Provider Instructions for Treatment Patient Instructions Indication:Nonsmoker Start:12-Oct-2020 Instruction Type:Provider Instructions for Treatment How to Access Health Informa tion Online using Patient Portal and [employer] Apps Indication:Nonsmoker Start:12-Oct-2020 Instruction Type:Patient Education Patient Instructions Indication:BMI 21.0-21.9, adult Start:14-Sep-2020 Instruction Type:Provider Instructions for Treatment How to Access Health Informa tion Online using Patient Portal and [employer]rd [employer] Apps Indication:BMI 21.0-21.9, adult Start:14-Sep-2020 Instruction Type:Patient Education How to access health informa tion online Indication:Nonsmoker Start:10-Jan-2020 Instruction Type:Patient Education How to access health informa tion online - Detail Indication:Nonsmoker Start:10-Jan-2020 Instruction Type:Patient Education Patient Instructions Indication:Nonsmoker Start:10-Jan-2020 Instruction Type:Provider Instructions for Treatment How to access health informa tion online Indication:BMI 20.0-20.9, adult Start:16-Dec-2019 Instruction Type:Patient Education How to access health informa tion online - Detail Indication:BMI 20.0-20.9, adult Start:16-Dec-2019 Instruction Type:Patient Education Patient Instructions Indication:Nonsmoker Start:16-Dec-2019 Instruction Type:Provider Instructions for Treatment How to access health informa tion online Indication:Nonsmoker Start:11-Dec-2019 Instruction Type:Patient Education How to access health informa tion online - Detail Indication:Nonsmoker Start:11-Dec-2019 Instruction Type:Patient Education Patient Instructions Indication:Nonsmoker Start:11-Dec-2019 Instruction Type:Provider Instructions for Treatment Patient Instructions Indication:Unspecified bacterial pneumonia Start:04-Feb-2013 Instruction Type:Provider Instructions for Treatment [facility]; [facility] Work Phone: Instructions* Name Dates Details Patient Instructions Indication:Abnormal lung sounds Start:14-Oct-2022 Instruction Type:Provider Instructions for Treatment How to Access Health Informa tion Online using Patient Portal and [employer] Apps Indication:Abnormal lung sounds Start:14-Oct-2022 Instruction Type:Patient Education Patient Instructions Indication:BMI 23.0-23.9, adult Start:07-Oct-2022 Instruction Type:Provider Instructions for Treatment How to Access Health Informa tion Online using Patient Portal and [employer] Apps Indication:BMI 23.0-23.9, adult Start:07-Oct-2022 Instruction Type:Patient Education Patient Instructions Indication:Nonsmoker Start:12-Sep-2022 Instruction Type:Provider Instructions for Treatment How to Access Health Informa tion Online using Patient Portal and [employer] Apps Indication:Nonsmoker Start:12-Sep-2022 Instruction Type:Patient Education Patient Instructions Indication:BMI 23.0-23.9, adult Start:10-Jun-2022 Instruction Type:Provider Instructions for Treatment How to Access Health Informa tion Online using Patient Portal and [employer] Apps Indication:BMI 23.0-23.9, adult Start:10-Jun-2022 Instruction Type:Patient Education Patient Instructions Indication:Nonsmoker Start:26-Apr-2022 Instruction Type:Provider Instructions for Treatment How to Access Health Informa tion Online using Patient Portal and [employer] Apps Indication:Nonsmoker Start:26-Apr-2022 Instruction Type:Patient Education Patient Instructions Indication:Nonsmoker Start:22-Feb-2022 Instruction Type:Provider Instructions for Treatment How to Access Health Informa tion Online using Patient Portal and [employer] Apps Indication:Nonsmoker Start:22-Feb-2022 Instruction Type:Patient Education Patient Instructions Indication:Nonsmoker Start:15-Oct-2021 Instruction Type:Provider Instructions for Treatment How to Access Health Informa tion Online using Patient Portal and [employer] Apps Indication:Nonsmoker Start:15-Oct-2021 Instruction Type:Patient Education Patient Instructions Indication:Nonsmoker Start:05-Jul-2021 Instruction Type:Provider Instructions for Treatment How to Access Health Informa tion Online using Patient Portal and [employer] Apps Indication:Nonsmoker Start:05-Jul-2021 Instruction Type:Patient Education Patient Instructions Indication:Nonsmoker Start:02-Jul-2021 Instruction Type:Provider Instructions for Treatment How to Access Health Informa tion Online using Patient Portal and [employer] Apps Indication:Nonsmoker Start:02-Jul-2021 Instruction Type:Patient Education Patient Instructions Indication:Nonsmoker Start:09-Feb-2021 Instruction Type:Provider Instructions for Treatment How to Access Health Informa tion Online using Patient Portal and [employer] Apps Indication:Nonsmoker Start:09-Feb-2021 Instruction Type:Patient Education How to Access Health Informa tion Online using Patient Portal and [employer] Apps Indication:Nonsmoker Start:22-Jan-2021 Instruction Type:Patient Education Patient Instructions Indication:Nonsmoker Start:22-Jan-2021 Instruction Type:Provider Instructions for Treatment Patient Instructions Indication:Nonsmoker Start:12-Oct-2020 Instruction Type:Provider Instructions for Treatment How to Access Health Informa tion Online using Patient Portal and [employer] Apps Indication:Nonsmoker Start:12-Oct-2020 Instruction Type:Patient Education Patient Instructions Indication:BMI 21.0-21.9, adult Start:14-Sep-2020 Instruction Type:Provider Instructions for Treatment How to Access Health Informa tion Online using Patient Portal and [employer] Apps Indication:BMI 21.0-21.9, adult Start:14-Sep-2020 Instruction Type:Patient Education How to access health informa tion online Indication:Nonsmoker Start:10-Jan-2020 Instruction Type:Patient Education How to access health informa tion online - Detail Indication:Nonsmoker Start:10-Jan-2020 Instruction Type:Patient Education Patient Instructions Indication:Nonsmoker Start:10-Jan-2020 Instruction Type:Provider Instructions for Treatment How to access health informa tion online Indication:BMI 20.0-20.9, adult Start:16-Dec-2019 Instruction Type:Patient Education How to access health informa tion online - Detail Indication:BMI 20.0-20.9, adult Start:16-Dec-2019 Instruction Type:Patient Education Patient Instructions Indication:Nonsmoker Start:16-Dec-2019 Instruction Type:Provider Instructions for Treatment How to access health informa tion online Indication:Nonsmoker Start:11-Dec-2019 Instruction Type:Patient Education How to access health informa tion online - Detail Indication:Nonsmoker Start:11-Dec-2019 Instruction Type:Patient Education Patient Instructions Indication:Nonsmoker Start:11-Dec-2019 Instruction Type:Provider Instructions for Treatment Patient Instructions Indication:Unspecified bacterial pneumonia Start:04-Feb-2013 Instruction Type:Provider Instructions for Treatment [facility]; [facility] Work Phone: Instructions* Name Dates Details Patient Instructions Indication:Abnormal lung sounds Start:14-Oct-2022 Instruction Type:Provider Instructions for Treatment How to Access Health Informa tion Online using Patient Portal and [employer] Apps Indication:Abnormal lung sounds Start:14-Oct-2022 Instruction Type:Patient Education Patient Instructions Indication:BMI 23.0-23.9, adult Start:07-Oct-2022 Instruction Type:Provider Instructions for Treatment How to Access Health Informa tion Online using Patient Portal and [employer] Apps Indication:BMI 23.0-23.9, adult Start:07-Oct-2022 Instruction Type:Patient Education Patient Instructions Indication:Nonsmoker Start:12-Sep-2022 Instruction Type:Provider Instructions for Treatment How to Access Health Informa tion Online using Patient Portal and [employer] Apps Indication:Nonsmoker Start:12-Sep-2022 Instruction Type:Patient Education Patient Instructions Indication:BMI 23.0-23.9, adult Start:10-Jun-2022 Instruction Type:Provider Instructions for Treatment How to Access Health Informa tion Online using Patient Portal and [employer] Apps Indication:BMI 23.0-23.9, adult Start:10-Jun-2022 Instruction Type:Patient Education Patient Instructions Indication:Nonsmoker Start:26-Apr-2022 Instruction Type:Provider Instructions for Treatment How to Access Health Informa tion Online using Patient Portal and [employer] Apps Indication:Nonsmoker Start:26-Apr-2022 Instruction Type:Patient Education Patient Instructions Indication:Nonsmoker Start:22-Feb-2022 Instruction Type:Provider Instructions for Treatment How to Access Health Informa tion Online using Patient Portal and [employer] Apps Indication:Nonsmoker Start:22-Feb-2022 Instruction Type:Patient Education Patient Instructions Indication:Nonsmoker Start:15-Oct-2021 Instruction Type:Provider Instructions for Treatment How to Access Health Informa tion Online using Patient Portal and [employer] Apps Indication:Nonsmoker Start:15-Oct-2021 Instruction Type:Patient Education Patient Instructions Indication:Nonsmoker Start:05-Jul-2021 Instruction Type:Provider Instructions for Treatment How to Access Health Informa tion Online using Patient Portal and [employer] Apps Indication:Nonsmoker Start:05-Jul-2021 Instruction Type:Patient Education Patient Instructions Indication:Nonsmoker Start:02-Jul-2021 Instruction Type:Provider Instructions for Treatment How to Access Health Informa tion Online using Patient Portal and [employer] Apps Indication:Nonsmoker Start:02-Jul-2021 Instruction Type:Patient Education Patient Instructions Indication:Nonsmoker Start:09-Feb-2021 Instruction Type:Provider Instructions for Treatment How to Access Health Informa tion Online using Patient Portal and [employer] Apps Indication:Nonsmoker Start:09-Feb-2021 Instruction Type:Patient Education How to Access Health Informa tion Online using Patient Portal and [employer] Apps Indication:Nonsmoker Start:22-Jan-2021 Instruction Type:Patient Education Patient Instructions Indication:Nonsmoker Start:22-Jan-2021 Instruction Type:Provider Instructions for Treatment Patient Instructions Indication:Nonsmoker Start:12-Oct-2020 Instruction Type:Provider Instructions for Treatment How to Access Health Informa tion Online using Patient Portal and [employer] Apps Indication:Nonsmoker Start:12-Oct-2020 Instruction Type:Patient Education Patient Instructions Indication:BMI 21.0-21.9, adult Start:14-Sep-2020 Instruction Type:Provider Instructions for Treatment How to Access Health Informa tion Online using Patient Portal and [employer] Apps Indication:BMI 21.0-21.9, adult Start:14-Sep-2020 Instruction Type:Patient Education How to access health informa tion online Indication:Nonsmoker Start:10-Jan-2020 Instruction Type:Patient Education How to access health informa tion online - Detail Indication:Nonsmoker Start:10-Jan-2020 Instruction Type:Patient Education Patient Instructions Indication:Nonsmoker Start:10-Jan-2020 Instruction Type:Provider Instructions for Treatment How to access health informa tion online Indication:BMI 20.0-20.9, adult Start:16-Dec-2019 Instruction Type:Patient Education How to access health informa tion online - Detail Indication:BMI 20.0-20.9, adult Start:16-Dec-2019 Instruction Type:Patient Education Patient Instructions Indication:Nonsmoker Start:16-Dec-2019 Instruction Type:Provider Instructions for Treatment How to access health informa tion online Indication:Nonsmoker Start:11-Dec-2019 Instruction Type:Patient Education How to access health informa tion online - Detail Indication:Nonsmoker Start:11-Dec-2019 Instruction Type:Patient Education Patient Instructions Indication:Nonsmoker Start:11-Dec-2019 Instruction Type:Provider Instructions for Treatment Patient Instructions Indication:Unspecified bacterial pneumonia Start:04-Feb-2013 Instruction Type:Provider Instructions for Treatment [facility]; [facility] Work Phone: Instructions* Name Dates Details Patient Instructions Indication:Nonsmoker Start:16-Dec-2022 Instruction Type:Provider Instructions for Treatment How to Access Health Informa tion Online using Patient Portal and [employer] Apps Indication:Nonsmoker Start:16-Dec-2022 Instruction Type:Patient Education Patient Instructions Indication:Abnormal lung sounds Start:14-Oct-2022 Instruction Type:Provider Instructions for Treatment How to Access Health Informa tion Online using Patient Portal and [employer] Apps Indication:Abnormal lung sounds Start:14-Oct-2022 Instruction Type:Patient Education Patient Instructions Indication:BMI 23.0-23.9, adult Start:07-Oct-2022 Instruction Type:Provider Instructions for Treatment How to Access Health Informa tion Online using Patient Portal and [employer] Apps Indication:BMI 23.0-23.9, adult Start:07-Oct-2022 Instruction Type:Patient Education Patient Instructions Indication:Nonsmoker Start:12-Sep-2022 Instruction Type:Provider Instructions for Treatment How to Access Health Informa tion Online using Patient Portal and [employer] Apps Indication:Nonsmoker Start:12-Sep-2022 Instruction Type:Patient Education Patient Instructions Indication:BMI 23.0-23.9, adult Start:10-Jun-2022 Instruction Type:Provider Instructions for Treatment How to Access Health Informa tion Online using Patient Portal and [employer] Apps Indication:BMI 23.0-23.9, adult Start:10-Jun-2022 Instruction Type:Patient Education Patient Instructions Indication:Nonsmoker Start:26-Apr-2022 Instruction Type:Provider Instructions for Treatment How to Access Health Informa tion Online using Patient Portal and [employer] Apps Indication:Nonsmoker Start:26-Apr-2022 Instruction Type:Patient Education Patient Instructions Indication:Nonsmoker Start:22-Feb-2022 Instruction Type:Provider Instructions for Treatment How to Access Health Informa tion Online using Patient Portal and [employer] Apps Indication:Nonsmoker Start:22-Feb-2022 Instruction Type:Patient Education Patient Instructions Indication:Nonsmoker Start:15-Oct-2021 Instruction Type:Provider Instructions for Treatment How to Access Health Informa tion Online using Patient Portal and [employer] Apps Indication:Nonsmoker Start:15-Oct-2021 Instruction Type:Patient Education Patient Instructions Indication:Nonsmoker Start:05-Jul-2021 Instruction Type:Provider Instructions for Treatment How to Access Health Informa tion Online using Patient Portal and [employer] Apps Indication:Nonsmoker Start:05-Jul-2021 Instruction Type:Patient Education Patient Instructions Indication:Nonsmoker Start:02-Jul-2021 Instruction Type:Provider Instructions for Treatment How to Access Health Informa tion Online using Patient Portal and [employer] Apps Indication:Nonsmoker Start:02-Jul-2021 Instruction Type:Patient Education Patient Instructions Indication:Nonsmoker Start:09-Feb-2021 Instruction Type:Provider Instructions for Treatment How to Access Health Informa tion Online using Patient Portal and [employer] Apps Indication:Nonsmoker Start:09-Feb-2021 Instruction Type:Patient Education How to Access Health Informa tion Online using Patient Portal and [employer] Apps Indication:Nonsmoker Start:22-Jan-2021 Instruction Type:Patient Education Patient Instructions Indication:Nonsmoker Start:22-Jan-2021 Instruction Type:Provider Instructions for Treatment Patient Instructions Indication:Nonsmoker Start:12-Oct-2020 Instruction Type:Provider Instructions for Treatment How to Access Health Informa tion Online using Patient Portal and [employer] Apps Indication:Nonsmoker Start:12-Oct-2020 Instruction Type:Patient Education Patient Instructions Indication:BMI 21.0-21.9, adult Start:14-Sep-2020 Instruction Type:Provider Instructions for Treatment How to Access Health Informa tion Online using Patient Portal and [employer] Apps Indication:BMI 21.0-21.9, adult Start:14-Sep-2020 Instruction Type:Patient Education How to access health informa tion online Indication:Nonsmoker Start:10-Jan-2020 Instruction Type:Patient Education How to access health informa tion online - Detail Indication:Nonsmoker Start:10-Jan-2020 Instruction Type:Patient Education Patient Instructions Indication:Nonsmoker Start:10-Jan-2020 Instruction Type:Provider Instructions for Treatment How to access health informa tion online Indication:BMI 20.0-20.9, adult Start:16-Dec-2019 Instruction Type:Patient Education How to access health informa tion online - Detail Indication:BMI 20.0-20.9, adult Start:16-Dec-2019 Instruction Type:Patient Education Patient Instructions Indication:Nonsmoker Start:16-Dec-2019 Instruction Type:Provider Instructions for Treatment How to access health informa tion online Indication:Nonsmoker Start:11-Dec-2019 Instruction Type:Patient Education How to access health informa tion online - Detail Indication:Nonsmoker Start:11-Dec-2019 Instruction Type:Patient Education Patient Instructions Indication:Nonsmoker Start:11-Dec-2019 Instruction Type:Provider Instructions for Treatment Patient Instructions Indication:Unspecified bacterial pneumonia Start:04-Feb-2013 Instruction Type:Provider Instructions for Treatment [facility]; [facility] Work Phone: Instructions* Name Dates Details Patient Instructions Indication:Nonsmoker Start:16-Dec-2022 Instruction Type:Provider Instructions for Treatment How to Access Health Informa tion Online using Patient Portal and [employer] Apps Indication:Nonsmoker Start:16-Dec-2022 Instruction Type:Patient Education Patient Instructions Indication:Abnormal lung sounds Start:14-Oct-2022 Instruction Type:Provider Instructions for Treatment How to Access Health Informa tion Online using Patient Portal and [employer] Apps Indication:Abnormal lung sounds Start:14-Oct-2022 Instruction Type:Patient Education Patient Instructions Indication:BMI 23.0-23.9, adult Start:07-Oct-2022 Instruction Type:Provider Instructions for Treatment How to Access Health Informa tion Online using Patient Portal and [employer] Apps Indication:BMI 23.0-23.9, adult Start:07-Oct-2022 Instruction Type:Patient Education Patient Instructions Indication:Nonsmoker Start:12-Sep-2022 Instruction Type:Provider Instructions for Treatment How to Access Health Informa tion Online using Patient Portal and [employer] Apps Indication:Nonsmoker Start:12-Sep-2022 Instruction Type:Patient Education Patient Instructions Indication:BMI 23.0-23.9, adult Start:10-Jun-2022 Instruction Type:Provider Instructions for Treatment How to Access Health Informa tion Online using Patient Portal and [employer] Apps Indication:BMI 23.0-23.9, adult Start:10-Jun-2022 Instruction Type:Patient Education Patient Instructions Indication:Nonsmoker Start:26-Apr-2022 Instruction Type:Provider Instructions for Treatment How to Access Health Informa tion Online using Patient Portal and [employer] Apps Indication:Nonsmoker Start:26-Apr-2022 Instruction Type:Patient Education Patient Instructions Indication:Nonsmoker Start:22-Feb-2022 Instruction Type:Provider Instructions for Treatment How to Access Health Informa tion Online using Patient Portal and [employer] Apps Indication:Nonsmoker Start:22-Feb-2022 Instruction Type:Patient Education Patient Instructions Indication:Nonsmoker Start:15-Oct-2021 Instruction Type:Provider Instructions for Treatment How to Access Health Informa tion Online using Patient Portal and [employer] Apps Indication:Nonsmoker Start:15-Oct-2021 Instruction Type:Patient Education Patient Instructions Indication:Nonsmoker Start:05-Jul-2021 Instruction Type:Provider Instructions for Treatment How to Access Health Informa tion Online using Patient Portal and [employer] Apps Indication:Nonsmoker Start:05-Jul-2021 Instruction Type:Patient Education Patient Instructions Indication:Nonsmoker Start:02-Jul-2021 Instruction Type:Provider Instructions for Treatment How to Access Health Informa tion Online using Patient Portal and [employer] Apps Indication:Nonsmoker Start:02-Jul-2021 Instruction Type:Patient Education Patient Instructions Indication:Nonsmoker Start:09-Feb-2021 Instruction Type:Provider Instructions for Treatment How to Access Health Informa tion Online using Patient Portal and [employer] Apps Indication:Nonsmoker Start:09-Feb-2021 Instruction Type:Patient Education How to Access Health Informa tion Online using Patient Portal and [employer] Apps Indication:Nonsmoker Start:22-Jan-2021 Instruction Type:Patient Education Patient Instructions Indication:Nonsmoker Start:22-Jan-2021 Instruction Type:Provider Instructions for Treatment Patient Instructions Indication:Nonsmoker Start:12-Oct-2020 Instruction Type:Provider Instructions for Treatment How to Access Health Informa tion Online using Patient Portal and [employer] Apps Indication:Nonsmoker Start:12-Oct-2020 Instruction Type:Patient Education Patient Instructions Indication:BMI 21.0-21.9, adult Start:14-Sep-2020 Instruction Type:Provider Instructions for Treatment How to Access Health Informa tion Online using Patient Portal and [employer] Apps Indication:BMI 21.0-21.9, adult Start:14-Sep-2020 Instruction Type:Patient Education How to access health informa tion online Indication:Nonsmoker Start:10-Jan-2020 Instruction Type:Patient Education How to access health informa tion online - Detail Indication:Nonsmoker Start:10-Jan-2020 Instruction Type:Patient Education Patient Instructions Indication:Nonsmoker Start:10-Jan-2020 Instruction Type:Provider Instructions for Treatment How to access health informa tion online Indication:BMI 20.0-20.9, adult Start:16-Dec-2019 Instruction Type:Patient Education How to access health informa tion online - Detail Indication:BMI 20.0-20.9, adult Start:16-Dec-2019 Instruction Type:Patient Education Patient Instructions Indication:Nonsmoker Start:16-Dec-2019 Instruction Type:Provider Instructions for Treatment How to access health informa tion online Indication:Nonsmoker Start:11-Dec-2019 Instruction Type:Patient Education How to access health informa tion online - Detail Indication:Nonsmoker Start:11-Dec-2019 Instruction Type:Patient Education Patient Instructions Indication:Nonsmoker Start:11-Dec-2019 Instruction Type:Provider Instructions for Treatment Patient Instructions Indication:Unspecified bacterial pneumonia Start:04-Feb-2013 Instruction Type:Provider Instructions for Treatment [facility]; [facility] Work Phone: Instructions* Name Dates Details Patient Instructions Indication:Nonsmoker Start:16-Dec-2022 Instruction Type:Provider Instructions for Treatment How to Access Health Informa tion Online using Patient Portal and [employer] Apps Indication:Nonsmoker Start:16-Dec-2022 Instruction Type:Patient Education Patient Instructions Indication:Abnormal lung sounds Start:14-Oct-2022 Instruction Type:Provider Instructions for Treatment How to Access Health Informa tion Online using Patient Portal and [employer] Indication:Abnormal lung sounds Start:14-Oct-2022 Instruction Type:Patient Education Patient Instructions Indication:BMI 23.0-23.9, adult Start:07-Oct-2022 Instruction Type:Provider Instructions for Treatment How to Access Health Informa tion Online using Patient Portal and [employer] Indication:BMI 23.0-23.9, adult Start:07-Oct-2022 Instruction Type:Patient Education Patient Instructions Indication:Nonsmoker Start:12-Sep-2022 Instruction Type:Provider Instructions for Treatment How to Access Health Informa tion Online using Patient Portal and [employer] Indication:Nonsmoker Start:12-Sep-2022 Instruction Type:Patient Education Patient Instructions Indication:BMI 23.0-23.9, adult Start:10-Jun-2022 Instruction Type:Provider Instructions for Treatment How to Access Health Informa tion Online using Patient Portal and [employer] Apps Indication:BMI 23.0-23.9, adult Start:10-Jun-2022 Instruction Type:Patient Education Patient Instructions Indication:Nonsmoker Start:26-Apr-2022 Instruction Type:Provider Instructions for Treatment How to Access Health Informa tion Online using Patient Portal and [employer] Apps Indication:Nonsmoker Start:26-Apr-2022 Instruction Type:Patient Education Patient Instructions Indication:Nonsmoker Start:22-Feb-2022 Instruction Type:Provider Instructions for Treatment How to Access Health Informa tion Online using Patient Portal and [employer] Apps Indication:Nonsmoker Start:22-Feb-2022 Instruction Type:Patient Education Patient Instructions Indication:Nonsmoker Start:15-Oct-2021 Instruction Type:Provider Instructions for Treatment How to Access Health Informa tion Online using Patient Portal and [employer] Indication:Nonsmoker Start:15-Oct-2021 Instruction Type:Patient Education Patient Instructions Indication:Nonsmoker Start:05-Jul-2021 Instruction Type:Provider Instructions for Treatment How to Access Health Informa tion Online using Patient Portal and [employer] Indication:Nonsmoker Start:05-Jul-2021 Instruction Type:Patient Education Patient Instructions Indication:Nonsmoker Start:02-Jul-2021 Instruction Type:Provider Instructions for Treatment How to Access Health Informa tion Online using Patient Portal and [employer] Indication:Nonsmoker Start:02-Jul-2021 Instruction Type:Patient Education Patient Instructions Indication:Nonsmoker Start:09-Feb-2021 Instruction Type:Provider Instructions for Treatment How to Access Health Informa tion Online using Patient Portal and [employer] Indication:Nonsmoker Start:09-Feb-2021 Instruction Type:Patient Education How to Access Health Informa tion Online using Patient Portal and [employer] Apps Indication:Nonsmoker Start:22-Jan-2021 Instruction Type:Patient Education Patient Instructions Indication:Nonsmoker Start:22-Jan-2021 Instruction Type:Provider Instructions for Treatment Patient Instructions Indication:Nonsmoker Start:12-Oct-2020 Instruction Type:Provider Instructions for Treatment How to Access Health Informa tion Online using Patient Portal and [employer] Apps Indication:Nonsmoker Start:12-Oct-2020 Instruction Type:Patient Education Patient Instructions Indication:BMI 21.0-21.9, adult Start:14-Sep-2020 Instruction Type:Provider Instructions for Treatment How to Access Health Informa tion Online using Patient Portal and [employer] Apps Indication:BMI 21.0-21.9, adult Start:14-Sep-2020 Instruction Type:Patient Education How to access health informa tion online Indication:Nonsmoker Start:10-Jan-2020 Instruction Type:Patient Education How to access health informa tion online - Detail Indication:Nonsmoker Start:10-Jan-2020 Instruction Type:Patient Education Patient Instructions Indication:Nonsmoker Start:10-Jan-2020 Instruction Type:Provider Instructions for Treatment How to access health informa tion online Indication:BMI 20.0-20.9, adult Start:16-Dec-2019 Instruction Type:Patient Education How to access health informa tion online - Detail Indication:BMI 20.0-20.9, adult Start:16-Dec-2019 Instruction Type:Patient Education Patient Instructions Indication:Nonsmoker Start:16-Dec-2019 Instruction Type:Provider Instructions for Treatment How to access health informa tion online Indication:Nonsmoker Start:11-Dec-2019 Instruction Type:Patient Education How to access health informa tion online - Detail Indication:Nonsmoker Start:11-Dec-2019 Instruction Type:Patient Education Patient Instructions Indication:Nonsmoker Start:11-Dec-2019 Instruction Type:Provider Instructions for Treatment Patient Instructions Indication:Unspecified bacterial pneumonia Start:04-Feb-2013 Instruction Type:Provider Instructions for Treatment [facility]; [facility] Work Phone: Instructions* Name Dates Details Patient Instructions Indication:Recurrent infections Start:30-Dec-2022 Instruction Type:Provider Instructions for Treatment How to Access Health Informa tion Online using Patient Portal and [employer] Apps Indication:Recurrent infections Start:30-Dec-2022 Instruction Type:Patient Education Patient Instructions Indication:Nonsmoker Start:16-Dec-2022 Instruction Type:Provider Instructions for Treatment How to Access Health Informa tion Online using Patient Portal and [employer] Apps Indication:Nonsmoker Start:16-Dec-2022 Instruction Type:Patient Education Patient Instructions Indication:Abnormal lung sounds Start:14-Oct-2022 Instruction Type:Provider Instructions for Treatment How to Access Health Informa tion Online using Patient Portal and [employer] Apps Indication:Abnormal lung sounds Start:14-Oct-2022 Instruction Type:Patient Education Patient Instructions Indication:BMI 23.0-23.9, adult Start:07-Oct-2022 Instruction Type:Provider Instructions for Treatment How to Access Health Informa tion Online using Patient Portal and [employer] Indication:BMI 23.0-23.9, adult Start:07-Oct-2022 Instruction Type:Patient Education Patient Instructions Indication:Nonsmoker Start:12-Sep-2022 Instruction Type:Provider Instructions for Treatment How to Access Health Informa tion Online using Patient Portal and [employer] Apps Indication:Nonsmoker Start:12-Sep-2022 Instruction Type:Patient Education Patient Instructions Indication:BMI 23.0-23.9, adult Start:10-Jun-2022 Instruction Type:Provider Instructions for Treatment How to Access Health Informa tion Online using Patient Portal and [employer] Indication:BMI 23.0-23.9, adult Start:10-Jun-2022 Instruction Type:Patient Education Patient Instructions Indication:Nonsmoker Start:26-Apr-2022 Instruction Type:Provider Instructions for Treatment How to Access Health Informa tion Online using Patient Portal and [employer] Apps Indication:Nonsmoker Start:26-Apr-2022 Instruction Type:Patient Education Patient Instructions Indication:Nonsmoker Start:22-Feb-2022 Instruction Type:Provider Instructions for Treatment How to Access Health Informa tion Online using Patient Portal and [employer] Indication:Nonsmoker Start:22-Feb-2022 Instruction Type:Patient Education Patient Instructions Indication:Nonsmoker Start:15-Oct-2021 Instruction Type:Provider Instructions for Treatment How to Access Health Informa tion Online using Patient Portal and [employer] Apps Indication:Nonsmoker Start:15-Oct-2021 Instruction Type:Patient Education Patient Instructions Indication:Nonsmoker Start:05-Jul-2021 Instruction Type:Provider Instructions for Treatment How to Access Health Informa tion Online using Patient Portal and [employer] Apps Indication:Nonsmoker Start:05-Jul-2021 Instruction Type:Patient Education Patient Instructions Indication:Nonsmoker Start:02-Jul-2021 Instruction Type:Provider Instructions for Treatment How to Access Health Informa tion Online using Patient Portal and [employer] Apps Indication:Nonsmoker Start:02-Jul-2021 Instruction Type:Patient Education Patient Instructions Indication:Nonsmoker Start:09-Feb-2021 Instruction Type:Provider Instructions for Treatment How to Access Health Informa tion Online using Patient Portal and [employer] Indication:Nonsmoker Start:09-Feb-2021 Instruction Type:Patient Education How to Access Health Informa tion Online using Patient Portal and [employer] Apps Indication:Nonsmoker Start:22-Jan-2021 Instruction Type:Patient Education Patient Instructions Indication:Nonsmoker Start:22-Jan-2021 Instruction Type:Provider Instructions for Treatment Patient Instructions Indication:Nonsmoker Start:12-Oct-2020 Instruction Type:Provider Instructions for Treatment How to Access Health Informa tion Online using Patient Portal and [employer] Apps Indication:Nonsmoker Start:12-Oct-2020 Instruction Type:Patient Education Patient Instructions Indication:BMI 21.0-21.9, adult Start:14-Sep-2020 Instruction Type:Provider Instructions for Treatment How to Access Health Informa tion Online using Patient Portal and [employer] Apps Indication:BMI 21.0-21.9, adult Start:14-Sep-2020 Instruction Type:Patient Education How to access health informa tion online Indication:Nonsmoker Start:10-Jan-2020 Instruction Type:Patient Education How to access health informa tion online - Detail Indication:Nonsmoker Start:10-Jan-2020 Instruction Type:Patient Education Patient Instructions Indication:Nonsmoker Start:10-Jan-2020 Instruction Type:Provider Instructions for Treatment How to access health informa tion online Indication:BMI 20.0-20.9, adult Start:16-Dec-2019 Instruction Type:Patient Education How to access health informa tion online - Detail Indication:BMI 20.0-20.9, adult Start:16-Dec-2019 Instruction Type:Patient Education Patient Instructions Indication:Nonsmoker Start:16-Dec-2019 Instruction Type:Provider Instructions for Treatment How to access health informa tion online Indication:Nonsmoker Start:11-Dec-2019 Instruction Type:Patient Education How to access health informa tion online - Detail Indication:Nonsmoker Start:11-Dec-2019 Instruction Type:Patient Education Patient Instructions Indication:Nonsmoker Start:11-Dec-2019 Instruction Type:Provider Instructions for Treatment Patient Instructions Indication:Unspecified bacterial pneumonia Start:04-Feb-2013 Instruction Type:Provider Instructions for Treatment [facility]; [facility] Work Phone: Instructions* Name Dates Details Patient Instructions Indication:BMI 23.0-23.9, adult Start:05-Jan-2023 Instruction Type:Provider Instructions for Treatment How to Access Health Informa tion Online using Patient Portal and [employer] Apps Indication:BMI 23.0-23.9, adult Start:05-Jan-2023 Instruction Type:Patient Education Patient Instructions Indication:Recurrent infections Start:30-Dec-2022 Instruction Type:Provider Instructions for Treatment How to Access Health Informa tion Online using Patient [employer] and [employer] Apps Indication:Recurrent infections Start:30-Dec-2022 Instruction Type:Patient Education Patient Instructions Indication:Nonsmoker Start:16-Dec-2022 Instruction Type:Provider Instructions for Treatment How to Access Health Informa tion Online using Patient [employer] and [employer] Apps Indication:Nonsmoker Start:16-Dec-2022 Instruction Type:Patient Education Patient Instructions Indication:Abnormal lung sounds Start:14-Oct-2022 Instruction Type:Provider Instructions for Treatment How to Access Health Informa tion Online using Patient Portal and [employer] Indication:Abnormal lung sounds Start:14-Oct-2022 Instruction Type:Patient Education Patient Instructions Indication:BMI 23.0-23.9, adult Start:07-Oct-2022 Instruction Type:Provider Instructions for Treatment How to Access Health Informa tion Online using Patient Portal and [employer] Indication:BMI 23.0-23.9, adult Start:07-Oct-2022 Instruction Type:Patient Education Patient Instructions Indication:Nonsmoker Start:12-Sep-2022 Instruction Type:Provider Instructions for Treatment How to Access Health Informa tion Online using Patient [employer] and [employer] Apps Indication:Nonsmoker Start:12-Sep-2022 Instruction Type:Patient Education Patient Instructions Indication:BMI 23.0-23.9, adult Start:10-Jun-2022 Instruction Type:Provider Instructions for Treatment How to Access Health Informa tion Online using Patient Portal and [employer] Indication:BMI 23.0-23.9, adult Start:10-Jun-2022 Instruction Type:Patient Education Patient Instructions Indication:Nonsmoker Start:26-Apr-2022 Instruction Type:Provider Instructions for Treatment How to Access Health Informa tion Online using Patient Portal and [employer] Indication:Nonsmoker Start:26-Apr-2022 Instruction Type:Patient Education Patient Instructions Indication:Nonsmoker Start:22-Feb-2022 Instruction Type:Provider Instructions for Treatment How to Access Health Informa tion Online using Patient Portal and [employer] Indication:Nonsmoker Start:22-Feb-2022 Instruction Type:Patient Education Patient Instructions Indication:Nonsmoker Start:15-Oct-2021 Instruction Type:Provider Instructions for Treatment How to Access Health Informa tion Online using Patient Portal and [employer] Indication:Nonsmoker Start:15-Oct-2021 Instruction Type:Patient Education Patient Instructions Indication:Nonsmoker Start:05-Jul-2021 Instruction Type:Provider Instructions for Treatment How to Access Health Informa tion Online using Patient Portal and [employer] Indication:Nonsmoker Start:05-Jul-2021 Instruction Type:Patient Education Patient Instructions Indication:Nonsmoker Start:02-Jul-2021 Instruction Type:Provider Instructions for Treatment How to Access Health Informa tion Online using Patient Portal and [employer] Indication:Nonsmoker Start:02-Jul-2021 Instruction Type:Patient Education Patient Instructions Indication:Nonsmoker Start:09-Feb-2021 Instruction Type:Provider Instructions for Treatment How to Access Health Informa tion Online using Patient Portal and [employer] Indication:Nonsmoker Start:09-Feb-2021 Instruction Type:Patient Education How to Access Health Informa tion Online using Patient Portal and [employer] Apps Indication:Nonsmoker Start:22-Jan-2021 Instruction Type:Patient Education Patient Instructions Indication:Nonsmoker Start:22-Jan-2021 Instruction Type:Provider Instructions for Treatment Patient Instructions Indication:Nonsmoker Start:12-Oct-2020 Instruction Type:Provider Instructions for Treatment How to Access Health Informa tion Online using Patient Portal and [employer] Indication:Nonsmoker Start:12-Oct-2020 Instruction Type:Patient Education Patient Instructions Indication:BMI 21.0-21.9, adult Start:14-Sep-2020 Instruction Type:Provider Instructions for Treatment How to Access Health Informa tion Online using Patient Portal and [employer] Indication:BMI 21.0-21.9, adult Start:14-Sep-2020 Instruction Type:Patient Education How to access health informa tion online Indication:Nonsmoker Start:10-Jan-2020 Instruction Type:Patient Education How to access health informa tion online - Detail Indication:Nonsmoker Start:10-Jan-2020 Instruction Type:Patient Education Patient Instructions Indication:Nonsmoker Start:10-Jan-2020 Instruction Type:Provider Instructions for Treatment How to access health informa tion online Indication:BMI 20.0-20.9, adult Start:16-Dec-2019 Instruction Type:Patient Education How to access health informa tion online - Detail Indication:BMI 20.0-20.9, adult Start:16-Dec-2019 Instruction Type:Patient Education Patient Instructions Indication:Nonsmoker Start:16-Dec-2019 Instruction Type:Provider Instructions for Treatment How to access health informa tion online Indication:Nonsmoker Start:11-Dec-2019 Instruction Type:Patient Education How to access health informa tion online - Detail Indication:Nonsmoker Start:11-Dec-2019 Instruction Type:Patient Education Patient Instructions Indication:Nonsmoker Start:11-Dec-2019 Instruction Type:Provider Instructions for Treatment Patient Instructions Indication:Unspecified bacterial pneumonia Start:04-Feb-2013 Instruction Type:Provider Instructions for Treatment [facility]; [facility] Work Phone: Instructions* Name Dates Details Patient Instructions Indication:BMI 23.0-23.9, adult Start:05-Jan-2023 Instruction Type:Provider Instructions for Treatment How to Access Health Informa tion Online using Patient Portal and [employer] Indication:BMI 23.0-23.9, adult Start:05-Jan-2023 Instruction Type:Patient Education Patient Instructions Indication:Recurrent infections Start:30-Dec-2022 Instruction Type:Provider Instructions for Treatment How to Access Health Informa tion Online using Patient Portal and [employer] Indication:Recurrent infections Start:30-Dec-2022 Instruction Type:Patient Education Patient Instructions Indication:Nonsmoker Start:16-Dec-2022 Instruction Type:Provider Instructions for Treatment How to Access Health Informa tion Online using Patient Portal and [employer] Indication:Nonsmoker Start:16-Dec-2022 Instruction Type:Patient Education Patient Instructions Indication:Abnormal lung sounds Start:14-Oct-2022 Instruction Type:Provider Instructions for Treatment How to Access Health Informa tion Online using Patient Portal and [employer] Indication:Abnormal lung sounds Start:14-Oct-2022 Instruction Type:Patient Education Patient Instructions Indication:BMI 23.0-23.9, adult Start:07-Oct-2022 Instruction Type:Provider Instructions for Treatment How to Access Health Informa tion Online using Patient Portal and [employer] Indication:BMI 23.0-23.9, adult Start:07-Oct-2022 Instruction Type:Patient Education Patient Instructions Indication:Nonsmoker Start:12-Sep-2022 Instruction Type:Provider Instructions for Treatment How to Access Health Informa tion Online using Patient Portal and [employer] Indication:Nonsmoker Start:12-Sep-2022 Instruction Type:Patient Education Patient Instructions Indication:BMI 23.0-23.9, adult Start:10-Jun-2022 Instruction Type:Provider Instructions for Treatment How to Access Health Informa tion Online using Patient Portal and [employer] Indication:BMI 23.0-23.9, adult Start:10-Jun-2022 Instruction Type:Patient Education Patient Instructions Indication:Nonsmoker Start:26-Apr-2022 Instruction Type:Provider Instructions for Treatment How to Access Health Informa tion Online using Patient Portal and [employer] Indication:Nonsmoker Start:26-Apr-2022 Instruction Type:Patient Education Patient Instructions Indication:Nonsmoker Start:22-Feb-2022 Instruction Type:Provider Instructions for Treatment How to Access Health Informa tion Online using Patient Portal and [employer] Indication:Nonsmoker Start:22-Feb-2022 Instruction Type:Patient Education Patient Instructions Indication:Nonsmoker Start:15-Oct-2021 Instruction Type:Provider Instructions for Treatment How to Access Health Informa tion Online using Patient Portal and [employer] Indication:Nonsmoker Start:15-Oct-2021 Instruction Type:Patient Education Patient Instructions Indication:Nonsmoker Start:05-Jul-2021 Instruction Type:Provider Instructions for Treatment How to Access Health Informa tion Online using Patient Portal and [employer] Indication:Nonsmoker Start:05-Jul-2021 Instruction Type:Patient Education Patient Instructions Indication:Nonsmoker Start:02-Jul-2021 Instruction Type:Provider Instructions for Treatment How to Access Health Informa tion Online using Patient Portal and [employer] Indication:Nonsmoker Start:02-Jul-2021 Instruction Type:Patient Education Patient Instructions Indication:Nonsmoker Start:09-Feb-2021 Instruction Type:Provider Instructions for Treatment How to Access Health Informa tion Online using Patient Portal and [employer] Indication:Nonsmoker Start:09-Feb-2021 Instruction Type:Patient Education How to Access Health Informa tion Online using Patient Portal and [employer] Indication:Nonsmoker Start:22-Jan-2021 Instruction Type:Patient Education Patient Instructions Indication:Nonsmoker Start:22-Jan-2021 Instruction Type:Provider Instructions for Treatment Patient Instructions Indication:Nonsmoker Start:12-Oct-2020 Instruction Type:Provider Instructions for Treatment How to Access Health Informa tion Online using Patient Portal and [employer] Indication:Nonsmoker Start:12-Oct-2020 Instruction Type:Patient Education Patient Instructions Indication:BMI 21.0-21.9, adult Start:14-Sep-2020 Instruction Type:Provider Instructions for Treatment How to Access Health Informa tion Online using Patient Portal and [employer] Indication:BMI 21.0-21.9, adult Start:14-Sep-2020 Instruction Type:Patient Education How to access health informa tion online Indication:Nonsmoker Start:10-Jan-2020 Instruction Type:Patient Education How to access health informa tion online - Detail Indication:Nonsmoker Start:10-Jan-2020 Instruction Type:Patient Education Patient Instructions Indication:Nonsmoker Start:10-Jan-2020 Instruction Type:Provider Instructions for Treatment How to access health informa tion online Indication:BMI 20.0-20.9, adult Start:16-Dec-2019 Instruction Type:Patient Education How to access health informa tion online - Detail Indication:BMI 20.0-20.9, adult Start:16-Dec-2019 Instruction Type:Patient Education Patient Instructions Indication:Nonsmoker Start:16-Dec-2019 Instruction Type:Provider Instructions for Treatment How to access health informa tion online Indication:Nonsmoker Start:11-Dec-2019 Instruction Type:Patient Education How to access health informa tion online - Detail Indication:Nonsmoker Start:11-Dec-2019 Instruction Type:Patient Education Patient Instructions Indication:Nonsmoker Start:11-Dec-2019 Instruction Type:Provider Instructions for Treatment Patient Instructions Indication:Unspecified bacterial pneumonia Start:04-Feb-2013 Instruction Type:Provider Instructions for Treatment [facility]; [facility] Work Phone: Family History No Family History Records FoundUnknown Family Member Name Dates Details Diabetes Mellitus Type II Comments:Mother Status:Active Hypertension Comments:Mother Status:Active Hypothyroidism Comments:Mother Status:Active Unknown Family Member Name Dates Details Diabetes Mellitus Type II Comments:Mother Status:Active Hypertension Comments:Mother Status:Active Hypothyroidism Comments:Mother Status:Active Unknown Family Member Name Dates Details Diabetes Mellitus Type II Comments:Mother Status:Active Hypertension Comments:Mother Status:Active Hypothyroidism Comments:Mother Status:Active Unknown Family Member Name Dates Details Diabetes Mellitus Type II Comments:Mother Status:Active Hypertension Comments:Mother Status:Active Hypothyroidism Comments:Mother Status:Active Unknown Family Member Name Dates Details Diabetes Mellitus Type II Comments:Mother Status:Active Hypertension Comments:Mother Status:Active Hypothyroidism Comments:Mother Status:Active Unknown Family Member Name Dates Details Diabetes Mellitus Type II Comments:Mother Status:Active Hypertension Comments:Mother Status:Active Hypothyroidism Comments:Mother Status:Active Unknown Family Member Name Dates Details Diabetes Mellitus Type II Comments:Mother Status:Active Hypertension Comments:Mother Status:Active Hypothyroidism Comments:Mother Status:Active Unknown Family Member Name Dates Details Diabetes Mellitus Type II Comments:Mother Status:Active Hypertension Comments:Mother Status:Active Hypothyroidism Comments:Mother Status:Active Unknown Family Member Name Dates Details Diabetes Mellitus Type II Comments:Mother Status:Active Hypertension Comments:Mother Status:Active Hypothyroidism Comments:Mother Status:Active Unknown Family Member Name Dates Details Diabetes Mellitus Type II Comments:Mother Status:Active Hypertension Comments:Mother Status:Active Hypothyroidism Comments:Mother Status:Active Unknown Family Member Name Dates Details Diabetes Mellitus Type II Comments:Mother Status:Active Hypertension Comments:Mother Status:Active Hypothyroidism Comments:Mother Status:Active Unknown Family Member Name Dates Details Diabetes Mellitus Type II Comments:Mother Status:Active Hypertension Comments:Mother Status:Active Hypothyroidism Comments:Mother Status:Active Unknown Family Member Name Dates Details Diabetes Mellitus Type II Comments:Mother Status:Active Hypertension Comments:Mother Status:Active Hypothyroidism Comments:Mother Status:Active Unknown Family Member Name Dates Details Diabetes Mellitus Type II Comments:Mother Status:Active Hypertension Comments:Mother Status:Active Hypothyroidism Comments:Mother Status:Active Unknown Family Member Name Dates Details Diabetes Mellitus Type II Comments:Mother Status:Active Hypertension Comments:Mother Status:Active Hypothyroidism Comments:Mother Status:Active Unknown Family Member Name Dates Details Diabetes Mellitus Type II Comments:Mother Status:Active Hypertension Comments:Mother Status:Active Hypothyroidism Comments:Mother Status:Active Unknown Family Member Name Dates Details Diabetes Mellitus Type II Comments:Mother Status:Active Hypertension Comments:Mother Status:Active Hypothyroidism Comments:Mother Status:Active Unknown Family Member Name Dates Details Diabetes Mellitus Type II Comments:Mother Status:Active Hypertension Comments:Mother Status:Active Hypothyroidism Comments:Mother Status:Active Unknown Family Member Name Dates Details Diabetes Mellitus Type II Comments:Mother Status:Active Hypertension Comments:Mother Status:Active Hypothyroidism Comments:Mother Status:Active Unknown Family Member Name Dates Details Diabetes Mellitus Type II Comments:Mother Status:Active Hypertension Comments:Mother Status:Active Hypothyroidism Comments:Mother Status:Active Unknown Family Member Name Dates Details Diabetes Mellitus Type II Comments:Mother Status:Active Hypertension Comments:Mother Status:Active Hypothyroidism Comments:Mother Status:Active Unknown Family Member Name Dates Details Diabetes Mellitus Type II Comments:Mother Status:Active Hypertension Comments:Mother Status:Active Hypothyroidism Comments:Mother Status:Active Unknown Family Member Name Dates Details Diabetes Mellitus Type II Comments:Mother Status:Active Hypertension Comments:Mother Status:Active Hypothyroidism Comments:Mother Status:Active Unknown Family Member Name Dates Details Diabetes Mellitus Type II Comments:Mother Status:Active Hypertension Comments:Mother Status:Active Hypothyroidism Comments:Mother Status:Active Unknown Family Member Name Dates Details Diabetes Mellitus Type II Comments:Mother Status:Active Hypertension Comments:Mother Status:Active Hypothyroidism Comments:Mother Status:Active Unknown Family Member Name Dates Details Diabetes Mellitus Type II Comments:Mother Status:Active Hypertension Comments:Mother Status:Active Hypothyroidism Comments:Mother Status:Active Unknown Family Member Name Dates Details Diabetes Mellitus Type II Comments:Mother Status:Active Hypertension Comments:Mother Status:Active Hypothyroidism Comments:Mother Status:Active Unknown Family Member Name Dates Details Diabetes Mellitus Type II Comments:Mother Status:Active Hypertension Comments:Mother Status:Active Hypothyroidism Comments:Mother Status:Active Unknown Family Member Name Dates Details Diabetes Mellitus Type II Comments:Mother Status:Active Hypertension Comments:Mother Status:Active Hypothyroidism Comments:Mother Status:Active Unknown Family Member Name Dates Details Diabetes Mellitus Type II Comments:Mother Status:Active Hypertension Comments:Mother Status:Active Hypothyroidism Comments:Mother Status:Active Unknown Family Member Name Dates Details Diabetes Mellitus Type II Comments:Mother Status:Active Hypertension Comments:Mother Status:Active Hypothyroidism Comments:Mother Status:Active Instructions Name Dates Details How to access health informa tion online Indication:Nonsmoker Start:10-Jan-2020 Instruction Type:Patient Education How to access health informa tion online - Detail Indication:Nonsmoker Start:10-Jan-2020 Instruction Type:Patient Education Patient Instructions Indication:Nonsmoker Start:10-Jan-2020 Instruction Type:Provider Instructions for Treatment How to access health informa tion online Indication:BMI 20.0-20.9, adult Start:16-Dec-2019 Instruction Type:Patient Education How to access health informa tion online - Detail Indication:BMI 20.0-20.9, adult Start:16-Dec-2019 Instruction Type:Patient Education Patient Instructions Indication:Nonsmoker Start:16-Dec-2019 Instruction Type:Provider Instructions for Treatment How to access health informa tion online Indication:Nonsmoker Start:11-Dec-2019 Instruction Type:Patient Education How to access health informa tion online - Detail Indication:Nonsmoker Start:11-Dec-2019 Instruction Type:Patient Education Patient Instructions Indication:Nonsmoker Start:11-Dec-2019 Instruction Type:Provider Instructions for Treatment Patient Instructions Indication:Unspecified bacterial pneumonia Start:04-Feb-2013 Instruction Type:Provider Instructions for Treatment Name Dates Details How to access health informa tion online Indication:Nonsmoker Start:10-Jan-2020 Instruction Type:Patient Education How to access health informa tion online - Detail Indication:Nonsmoker Start:10-Jan-2020 Instruction Type:Patient Education Patient Instructions Indication:Nonsmoker Start:10-Jan-2020 Instruction Type:Provider Instructions for Treatment How to access health informa tion online Indication:BMI 20.0-20.9, adult Start:16-Dec-2019 Instruction Type:Patient Education How to access health informa tion online - Detail Indication:BMI 20.0-20.9, adult Start:16-Dec-2019 Instruction Type:Patient Education Patient Instructions Indication:Nonsmoker Start:16-Dec-2019 Instruction Type:Provider Instructions for Treatment How to access health informa tion online Indication:Nonsmoker Start:11-Dec-2019 Instruction Type:Patient Education How to access health informa tion online - Detail Indication:Nonsmoker Start:11-Dec-2019 Instruction Type:Patient Education Patient Instructions Indication:Nonsmoker Start:11-Dec-2019 Instruction Type:Provider Instructions for Treatment Patient Instructions Indication:Unspecified bacterial pneumonia Start:04-Feb-2013 Instruction Type:Provider Instructions for Treatment Name Dates Details How to access health informa tion online Indication:Nonsmoker Start:10-Jan-2020 Instruction Type:Patient Education How to access health informa tion online - Detail Indication:Nonsmoker Start:10-Jan-2020 Instruction Type:Patient Education Patient Instructions Indication:Nonsmoker Start:10-Jan-2020 Instruction Type:Provider Instructions for Treatment How to access health informa tion online Indication:BMI 20.0-20.9, adult Start:16-Dec-2019 Instruction Type:Patient Education How to access health informa tion online - Detail Indication:BMI 20.0-20.9, adult Start:16-Dec-2019 Instruction Type:Patient Education Patient Instructions Indication:Nonsmoker Start:16-Dec-2019 Instruction Type:Provider Instructions for Treatment How to access health informa tion online Indication:Nonsmoker Start:11-Dec-2019 Instruction Type:Patient Education How to access health informa tion online - Detail Indication:Nonsmoker Start:11-Dec-2019 Instruction Type:Patient Education Patient Instructions Indication:Nonsmoker Start:11-Dec-2019 Instruction Type:Provider Instructions for Treatment Patient Instructions Indication:Unspecified bacterial pneumonia Start:04-Feb-2013 Instruction Type:Provider Instructions for Treatment Name Dates Details How to access health informa tion online Indication:Nonsmoker Start:10-Jan-2020 Instruction Type:Patient Education How to access health informa tion online - Detail Indication:Nonsmoker Start:10-Jan-2020 Instruction Type:Patient Education Patient Instructions Indication:Nonsmoker Start:10-Jan-2020 Instruction Type:Provider Instructions for Treatment How to access health informa tion online Indication:BMI 20.0-20.9, adult Start:16-Dec-2019 Instruction Type:Patient Education How to access health informa tion online - Detail Indication:BMI 20.0-20.9, adult Start:16-Dec-2019 Instruction Type:Patient Education Patient Instructions Indication:Nonsmoker Start:16-Dec-2019 Instruction Type:Provider Instructions for Treatment How to access health informa tion online Indication:Nonsmoker Start:11-Dec-2019 Instruction Type:Patient Education How to access health informa tion online - Detail Indication:Nonsmoker Start:11-Dec-2019 Instruction Type:Patient Education Patient Instructions Indication:Nonsmoker Start:11-Dec-2019 Instruction Type:Provider Instructions for Treatment Patient Instructions Indication:Unspecified bacterial pneumonia Start:04-Feb-2013 Instruction Type:Provider Instructions for Treatment Name Dates Details Patient Instructions Indication:Nonsmoker Start:12-Oct-2020 Instruction Type:Provider Instructions for Treatment How to Access Health Informa tion Online using Patient Portal and 3rd [employer] Apps Indication:Nonsmoker Start:12-Oct-2020 Instruction Type:Patient Education Patient Instructions Indication:BMI 21.0-21.9, adult Start:14-Sep-2020 Instruction Type:Provider Instructions for Treatment How to Access Health Informa tion Online using Patient Portal and 3rd [employer] Apps Indication:BMI 21.0-21.9, adult Start:14-Sep-2020 Instruction Type:Patient Education How to access health informa tion online Indication:Nonsmoker Start:10-Jan-2020 Instruction Type:Patient Education How to access health informa tion online - Detail Indication:Nonsmoker Start:10-Jan-2020 Instruction Type:Patient Education Patient Instructions Indication:Nonsmoker Start:10-Jan-2020 Instruction Type:Provider Instructions for Treatment How to access health informa tion online Indication:BMI 20.0-20.9, adult Start:16-Dec-2019 Instruction Type:Patient Education How to access health informa tion online - Detail Indication:BMI 20.0-20.9, adult Start:16-Dec-2019 Instruction Type:Patient Education Patient Instructions Indication:Nonsmoker Start:16-Dec-2019 Instruction Type:Provider Instructions for Treatment How to access health informa tion online Indication:Nonsmoker Start:11-Dec-2019 Instruction Type:Patient Education How to access health informa tion online - Detail Indication:Nonsmoker Start:11-Dec-2019 Instruction Type:Patient Education Patient Instructions Indication:Nonsmoker Start:11-Dec-2019 Instruction Type:Provider Instructions for Treatment Patient Instructions Indication:Unspecified bacterial pneumonia Start:04-Feb-2013 Instruction Type:Provider Instructions for Treatment Name Dates Details Patient Instructions Indication:Nonsmoker Start:12-Oct-2020 Instruction Type:Provider Instructions for Treatment How to Access Health Informa tion Online using Patient Portal and 3rd [employer] Apps Indication:Nonsmoker Start:12-Oct-2020 Instruction Type:Patient Education Patient Instructions Indication:BMI 21.0-21.9, adult Start:14-Sep-2020 Instruction Type:Provider Instructions for Treatment How to Access Health Informa tion Online using Patient Portal and 3rd [employer] Apps Indication:BMI 21.0-21.9, adult Start:14-Sep-2020 Instruction Type:Patient Education How to access health informa tion online Indication:Nonsmoker Start:10-Jan-2020 Instruction Type:Patient Education How to access health informa tion online - Detail Indication:Nonsmoker Start:10-Jan-2020 Instruction Type:Patient Education Patient Instructions Indication:Nonsmoker Start:10-Jan-2020 Instruction Type:Provider Instructions for Treatment How to access health informa tion online Indication:BMI 20.0-20.9, adult Start:16-Dec-2019 Instruction Type:Patient Education How to access health informa tion online - Detail Indication:BMI 20.0-20.9, adult Start:16-Dec-2019 Instruction Type:Patient Education Patient Instructions Indication:Nonsmoker Start:16-Dec-2019 Instruction Type:Provider Instructions for Treatment How to access health informa tion online Indication:Nonsmoker Start:11-Dec-2019 Instruction Type:Patient Education How to access health informa tion online - Detail Indication:Nonsmoker Start:11-Dec-2019 Instruction Type:Patient Education Patient Instructions Indication:Nonsmoker Start:11-Dec-2019 Instruction Type:Provider Instructions for Treatment Patient Instructions Indication:Unspecified bacterial pneumonia Start:04-Feb-2013 Instruction Type:Provider Instructions for Treatment Summary Purpose Advance Directives No Advanced Directives Records FoundNo Advanced Directives Records FoundNo Advanced Directives Records Found Additional Source Comments INFORMATION SOURCE (unrecogn ized section and content) DATE CREATED AUTHOR AUTHOR'S ORGANIZ ATION 01/01/2023 [facility] DATE CREATED AUTHOR AUTHOR'S ORGANIZ ATION 07/15/2023 [facility] Source Comments (unrecognize d section and content) In the event this informatio n is protected by the Federal Confidentiality of Alcohol and Drug Abuse Patient Records regulations: The Federal rules restrict any use of the information to criminally investigate or prosecute any alcohol or drug abuse patient[facility] the event this information is protected by the Federal Confidentiality of Alcohol and Drug Abuse Patient Records regulations: The Federal rules restrict any use of the information to criminally investigate or prosecute any alcohol or drug abuse patient[facility] Reason for Visit (unrecogniz ed section and content) Reason Comments Chest Congestion Cough, ST x7 daysCon junctivitis bilateral x7 days Care Teams (unrecognized sec tion and content) Tractor Technician Relationship Specialty Start Date End Date Amari Yarelis DO Lizbeth PCP - General Internal Medicine 04/29/13 Tractor Technician Relationship Specialty Start Date End Date No Primary Care[place] [address] PCP - General Pediatrics 02/09/23 FOR RECORDS PERTAINING TO PATIENTS WHO ARE OR HAVE BEEN ENROLLED IN A CHEMICAL DEPENDENCY/SUBSTANCEABUSE PROGRAM, SOME INFORMATION MAY BE OMITTED. This clinical summary was aggregated from multiple sources. Caution should be exercised in using it in the provision of clinical care. This summary normalizes information from multiple sources, and as a consequence, information in this document may materially change the coding, format and clinical context of patient data. In addition, data may be omitted in some cases. CLINICAL DECISIONS SHOULD BE BASED ON THE PRIMARY CLINICAL RECORDS. [facility] [employer] [facility]. provides no warranty or guarantee of the accuracy or completeness of information in this document.
== END 2023-08-17 23:59 | disposition home or self-care (01) ==
LOC: PSN 12:21
PROVIDERS: PCP Internal Medicine; Referring Provider Nurse Practitioner Acute Care; Visit Provider Nurse Practitioner Acute Care
DX: J47.9 Bronchiectasis, uncomplicated (principal)
CPT/HCPCS: 94667

== ENCOUNTER → 2024-08-27 | Outpatient (CLI) | payer OTHER, SELFPAY ==
[2024-08-27 12:33] LABS: Erythrocyte Sedimentation Rate 4 mm/hr (0-30)
[2024-08-27 12:35] LABS: Hematocrit 41.9 % (37-47); Hemoglobin 13.9 g/dL (12.0-15.0); Mean Corp Hgb Conc 33.2 g/dL (32-36); Mean Corpuscular Hgb 27.6 pg (27.0-32.0); Mean Corpuscular Volume 83.3 fL (81-99); POSITIVE DIFFERENTIAL YES; POSITIVE MORPHOLOGY YES; Platelet Count 427 K/mm3 (150-450); RBC Distribution Width SD 42.5 fl (35.1-43.9); Red Blood Count 5.03 M/mm3 (4.2-5.4); White Blood Count 20.7 K/mm3 (4.4-11.0)
[2024-08-27 12:46] LABS: ALB/GLOB Ratio 0.8 RATIO (0.9-2.4); AST(SGOT) 74 U/L (15-37); Alanine Aminotransfer ALT/SGPT 82 U/L (13-56); Albumin, Serum 3.4 g/dL (3.2-5.0); Alkaline Phosphatase 131 U/L (45-117); Anion Gap 4 (5-15); BUN 11 mg/dL (7-18); BUN/Creat Ratio 16.1 RATIO (10-20); Calcium,Total 9.1 mg/dL (8.5-10.1); Chloride 104 mmol/L (98-107); Creatinine, Serum 0.68 mg/dL (0.55-1.02); EST Glomerular Filtration Rate 96 mL/min (>60); Est Glom Filt Rate - Afr Amer 117 mL/min (>60); Glucose 129 mg/dL (74-106); Potassium 4.1 mmol/L (3.5-5.1); Protein, Total 7.4 g/dL (6.4-8.2); Sodium Level 136 mmol/L (136-145)
[2024-08-27 13:29] LABS: Differential Indicated MANUAL DIFF
[2024-08-27 13:31] LABS: Lymphocyte 13 % (19-41); Monocyte 3 % (0-10); Neutrophil-Band 1 % (0-5); Neutrophil-Segmented 83 % (47-70); Total Cells Counted 100 (MANUAL DIFF)
[2024-08-27 13:32] LABS: Platelet Estimate ADEQUATE (ADEQ); Reactive Lymphocyte 1+; Red Cell Morphology NORM C+C NORMAL (NORM C&C); Toxic Granulation RARE
[2024-08-27 13:33] LABS: Absolute Lymphocyte Count 2.69 X10^3/uL (0.83-4.51); Absolute Neutrophil Count 17.4 X10^3/uL (2.0-7.7)
== END | disposition home or self-care (01) ==
PROVIDERS: PCP Internal Medicine; Referring Provider Nurse Practitioner Family; Visit Provider Nurse Practitioner Family
DX: J47.9 Bronchiectasis, uncomplicated (principal)
CPT/HCPCS: 80053; 85025; 85652; 86140

== ENCOUNTER → 2024-08-28 | Outpatient (CLI) | payer OTHER, SELFPAY ==
--- NOTE | 2024-08-28 11:14 | CT_ITS ---
HISTORY: Hilar mass, pleural effusion, cxr 08/27 elev. wbc, crp -- STAT. TECHNIQUE: CT of the chest was performed after the intravenous administration of 100 mL Isovue-300. Coronal and sagittal reformatted images. Individualized dose optimization techniques were used for this CT. 801 images. COMPARISON: XR prior day, CT 01/02/2023. FINDINGS: CENTRAL AIRWAYS: Mild dependent fluid in the trachea. LUNGS: Chronic biapical scarring. Soft tissue thickening along the right upper lobe airways with mild bronchiectasis and a 1 x 2.7 cm opacity with volume loss and air bronchograms medially. Adjacent 2.4 x 2.6 cm lobulated mass extending from the medial aspect of the right upper lobe into the anterior mediastinum with mild adjacent mediastinal stranding. 4 mm satellite nodule. Mild right lower lobe atelectasis. New mild left lower lobe groundglass opacities with chronic bronchiectasis and bronchial wall thickening. PLEURA: Mild right pleural effusion. HEART/PERICARDIUM: Heart within normal limits in size. No pericardial effusion. AORTA/VESSELS: No thoracic aortic aneurysm or dissection flap. No large central filling defect identified in the pulmonary arteries. MEDIASTINUM/DONIS: 1.2 x 1.3 cm right paratracheal lymph node. OSSEOUS STRUCTURES: Intact. UPPER ABDOMEN: Mild hiatal hernia. No adrenal mass. CT/Chest WITH Contrast IMPRESSION: 2.6 cm lobulated soft tissue mass in the medial aspect of the right upper lobe with extension into the anterior mediastinum, suspicious for neoplasm. Recommend correlation with PET/CT. Adjacent postobstructive pneumonitis or atelectasis with mild soft tissue thickening and bronchiectasis of the right upper lobe airways. 4 mm right upper lobe satellite nodule. Mild right mediastinal lymphadenopathy. Mild right pleural effusion. Mild left lower lobe groundglass opacities from pneumonitis or atypical pneumonia. Electronically Signed: Kalpana Jessica MD at 12:18 EST ,
== END | disposition home or self-care (01) ==
LOC: CT 11:02
PROVIDERS: PCP Internal Medicine; Referring Provider Nurse Practitioner Family; Visit Provider Nurse Practitioner Family
DX: R91.8 Other nonspecific abnormal finding of lung field (principal)
CPT/HCPCS: 71260; Q9967; A4216

== ENCOUNTER → 2024-09-03 | Outpatient (CLI) | payer OTHER, SELFPAY ==
--- NOTE | 2024-09-03 09:00 | PET_ITS ---
EXAMINATION: FDG-PET/CT ? INDICATIONS: 49-year-old female with a history of pulmonary nodularity presenting for initial evaluation. ? COMPARISON EXAMINATION: CT of the chest 08/28/2024 ? INDEX LESION SIZE SUV INTERPRETATION Right lung-right upper lobe 10.9 mm. 9.8 Fulfills quantitative criteria for viable neoplasm, histopathologic analysis recommended ? TECHNIQUE: Following the intravenous administration of 14.8 mCi of F-18 deoxyglucose via the left hand, multiplanar image acquisitions of the head, neck, chest, abdomen and pelvis to the level of the midthigh, obtained at one-hour post radiopharmaceutical administration contemporaneously interpreted with the current CT of the chest, abdomen and pelvis dated 09/03/2024 via coregistration reveal: ? SERUM GLUCOSE LEVEL:? 64 mg/dL? HEIGHT:?? 66 inches WEIGHT:?? 143 pounds ? FINDINGS: ? HEAD/NECK:? There is no evidence of abnormal increased glucose metabolism in the pharyngeal mucosal space, parapharyngeal space, oropharynx, bilateral-lateral and anterior neck, hypopharynx and distribution of the larynx. ? The visualized portion of the cerebral cortical-subcortical structures demonstrate symmetric and preserved glucose metabolism. ? CHEST: Facilitated FDG concentration is defined in the right upper anteromedial lung zone, right upper lobe generating a calculated standard uptake value of 9.8.? The maximal axial diameter of the metabolic abnormality is 10.9 mm.? ? CT of the chest demonstrates the following anatomic characteristics: ? Atherosclerotic calcification is defined in the thoracic aorta without evidence of dilatation, aneurysm formation.? Additional parenchymal changes noted in the bilateral hemithorax are nonglucose avid.? A hiatal hernia is defined.? Bilateral axillary soft tissue densities are metabolic. ? ABDOMEN/PELVIS:? Normal physiologic distribution of the radiopharmaceutical is identified in the hepatic and splenic parenchyma, both renal units, urinary bladder, and visualized intestinal tract.? Diffuse intestinal tract is identified in all four quadrants of the abdominal-pelvic mesentery. ? CT of the abdomen and pelvis is remarkable for the following: Atherosclerotic calcification is defined in the abdominal aorta without evidence of dilatation, aneurysm formation.? The retained uterus appears anteflexed.? Subcentimeter bilateral inguinal soft tissue densities are ametabolic. ? SKELETAL:? There is no evidence of quantitatively significant enhanced glucose metabolism on meticulous inspection of the appendicular and axial skeletal structures. ? Degenerative changes defined in the thoracic and lumbar spine demonstrate no evidence of increased glucose metabolism. There are no sclerotic, mixed sclerotic-lytic, or primarily lytic changes defined in the axial skeletal structures with evidence of increased FDG uptake. ? PET/PET/CT Tumor Base -Thigh Init IMPRESSION: 1. The increase in FDG concentration manifest in the right upper lung field, right upper lobe, fulfills quantitative criteria for viable neoplasm with single point technique.? Histopathologic analysis is recommended. 2.? No other quantitatively significant hypermetabolic abnormalities are noted. Electronic Signature Umberto Jones D.O. Accurate Quantification of SUVs for this report are calculated using the exclusive [employer] Technology. ([place]. Patent No. [id number] [phone] B2 [phone] [place] patent [phone]). Standardization and correction of the FDG SUV metric via [employer] technology allow for vendor non-specific objective quantitative examination comparison and optimization of the sensitivity and specificity of the FDG PET-CT examination. [email or web address] Electronically Signed: Umberto Jones DO at 21:14 EST ,
== END | disposition home or self-care (01) ==
PROVIDERS: PCP Internal Medicine; Referring Provider Nurse Practitioner Family; Visit Provider Nurse Practitioner Family
DX: R91.8 Other nonspecific abnormal finding of lung field (principal)
CPT/HCPCS: 78815; A9552

== ENCOUNTER → 2024-09-04 | Outpatient (CLI) | payer OTHER, SELFPAY ==
[2024-09-04 16:20] LABS: Absolute Lymphocyte Count 2.99 X10^3/uL (0.83-4.51); Absolute Neutrophil Count 4.1 X10^3/uL (2.0-7.7); Basophil# 0.09 X10^3/uL; Basophil% 1.2 % (0-1); Eosinophil# 0.06 X10^3/uL; Eosinophils% 0.8 % (0-5); Hematocrit 36.8 % (37-47); Hemoglobin 12.4 g/dL (12.0-15.0); Lymphocyte # 2.99 X10^3/ul (0.83-4.51); Lymphocyte % 38.3 % (19-41); Mean Corp Hgb Conc 33.7 g/dL (32-36); Mean Corpuscular Hgb 27.9 pg (27.0-32.0); Mean Corpuscular Volume 82.7 fL (81-99); Monocyte# 0.55 X10^3/uL; NRBC Flagged by Analyzer 0 % (0-5); Neutrophil % 52.4 % (47-70); Platelet Count 513 K/mm3 (150-450); RBC Distribution Width CV 13.6 % (11.6-14.6); RBC Distribution Width SD 40.9 fl (35.1-43.9); RET-HE 31.5 pg (30-35); Red Blood Count 4.45 M/mm3 (4.2-5.4); Reticulocyte Count 0.46 % (0.5-1.5); White Blood Count 7.8 K/mm3 (4.4-11.0)
[2024-09-04 17:01] LABS: AST(SGOT) 17 U/L (15-37); Alanine Aminotransfer ALT/SGPT 22 U/L (13-56); Albumin, Serum 3.6 g/dL (3.2-5.0); Alkaline Phosphatase 106 U/L (45-117); Anion Gap 6 (5-15); BUN 9 mg/dL (7-18); BUN/Creat Ratio 11.1 RATIO (10-20); Bilirubin, Direct < 0.05 mg/dL (0.00-0.30); Calcium,Total 8.8 mg/dL (8.5-10.1); Chloride 105 mmol/L (98-107); Creatinine, Serum 0.81 mg/dL (0.55-1.02); EST Glomerular Filtration Rate 79 mL/min (>60); Est Glom Filt Rate - Afr Amer 96 mL/min (>60); Globulin 3.2 g/dL (2.2-4.2); Glucose 137 mg/dL (74-106); LDH 164 U/L (84-246); Potassium 3.6 mmol/L (3.5-5.1); Protein, Total 6.8 g/dL (6.4-8.2); Sodium Level 140 mmol/L (136-145)
[2024-09-06 08:10] LABS: HCG BETA-SUBUNIT QUANT. 2 mIU/mL (.)
[2024-09-06 12:08] LABS: AFP, Tumor Marker 3.1 ng/mL (0.0-9.2); QNTFERON TB Mitogen Value > 10.00 IU/mL (.); QNTFERON TB Nil Value 0.06 IU/mL (.); QNTFERON TB1+ Ag Value 0.07 IU/mL (.); QNTFERON TB2+ Ag Value 0.06 IU/mL (.); QNTIFERON TB Positive Criteria Negative (Negative)
== END | disposition home or self-care (01) ==
PROVIDERS: PCP Internal Medicine; Referring Provider Nurse Practitioner Family; Visit Provider Internal Medicine
DX: D72.829 Elevated white blood cell count, unspecified (principal); R79.82 Elevated C-reactive protein (CRP); J98.59 Other diseases of mediastinum, not elsewhere classified
CPT/HCPCS: 36415; 80048; 80076; 82105; 83615; 84702; 85025; 85045; 86140; 86480

== ENCOUNTER → 2024-09-27 | Outpatient (CLI) | payer OTHER, SELFPAY | END | disposition home or self-care (01) | PROVIDERS: PCP Internal Medicine; Referring Provider Nurse Practitioner Family; Visit Provider Nurse Practitioner Family | DX: R05.9 Cough, unspecified (principal) | CPT/HCPCS: 87070; 87077; 87186; 87205 ==

== ENCOUNTER → 2024-10-15 | Outpatient (CLI) | payer OTHER, SELFPAY ==
--- NOTE | 2024-10-15 17:44 | CT_ITS ---
PROCEDURE: CHEST WITH CONTRAST REASON FOR EXAM: History of pneumonias. TECHNIQUE: Chest CTA with intravenous contrast and 3D reconstructions. Abdomen and pelvis CT using the same contrast dose. CONTRAST: 97 cc of Isovue-300. COMPARISON: Comparison is made with prior study dated August 28, 2024. FINDINGS: CHEST: Lines and tubes: None. Mediastinum: Stable slightly enlarged right paratracheal lymph node. Heart: Normal heart size. No pericardial effusion. Coronary artery calcification. Thoracic Aorta: No thoracic aortic aneurysm or dissection. Lungs and Airways: Hyperinflation. Stable scarring at the lung apices more prominent in the right upper lobe. Stable bronchiectasis with scarring in the anterior aspect of the right upper lobe along its medial aspect. Persistent soft tissue density most likely representing scarring rather than true mass lesion. This has decreased in size as compared to prior study. Pleura: No pleural effusion. No pneumothorax. Bones: Degenerative changes of the spine. CT/Chest WITH Contrast IMPRESSION: Essentially stable examination. Further follow-up recommended. One or more dose reduction techniques were used (e.g., Automated exposure contr ol, adjustment of the mA and/or kV according to patient size, use of iterative reconstruction technique). Reading Location: [facility]
== END | disposition home or self-care (01) ==
LOC: CT 17:44
PROVIDERS: PCP Internal Medicine; Referring Provider Nurse Practitioner Family; Visit Provider Nurse Practitioner Family
DX: R91.8 Other nonspecific abnormal finding of lung field (principal)
CPT/HCPCS: 71260; Q9967

== ENCOUNTER 2024-11-06 21:17 | Emergency (ER) | payer OTHER, SELFPAY ==
[2024-11-06 21:19] VITALS: BP 171/93; PULSE 114; RESP 18; TEMP 37.6; O2SAT 97; BMI 22.6
--- NOTE | 2024-11-06 21:41 | EKG12_ITS ---
Test Reason : GEN ILL Blood Pressure : */* mmHG Vent. Rate : 100 BPM Atrial Rate : 100 BPM P-R Int : 178 ms QRS Dur : 72 ms QT Int : 326 ms P-R-T Axes : 59 40 63 degrees QTcB Int : 420 ms Normal sinus rhythm Normal ECG When compared with ECG of 09-Oct-2003 04:02, No significant change was found Confirmed by MELONIE SIERRA, GALILEA ([id number]), supervising editor trailer KARLO DIAZ ([id number]) on 11/11/2024 7:33:43 AM Referred By: Yordan Vanegas Confirmed By: GALILEA WILHELM MD
--- NOTE | 2024-11-06 21:42 | EDS_ITS ---
HPI History of Present Illness Chief Complaint: General Illness Informant: patient and spouse/S.O. Narrative Narrative: 49-year-old female presenting to the emergency room with chest pain cough change in sputum and bodyaches. 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 In September of this year she was found to have strep pneumonia infection was started on 10 days of Augmentin and recently completed a course of Levaquin. She has been doing pulmonary toilet. She states that the end of last week when she followed up in the office she was having clear sputum but today has turned green. She notes that she had a sudden onset of bodyaches and has developed a pain in the left lower anterior chest. She states it feels similar to when she had pneumonia on her right upper chest. The patient was found to have a possible mass on chest CT in September and also had a PET scan. It was felt that this mass could possibly be scar tissue complicated with pneumonia. She denies significant rhinorrhea vomiting diarrhea or rash. She has not no history of coronary artery disease or pulmonary embolism. She felt feverish but did not take her temperature. At 1900 hrs. she took Tylenol temperature in triage is 99.6. She does not wear home oxygen. She is a lifelong non-smoker. [facility] Medical History (Updated 11/06/24 @ 23:[address] Yordan Vanegas, DO) Immunoglobulin deficiency Mass of upper lobe of right lung Bronchiectasis Immune deficiency disorder Home Medications ?Medication ?Instructions ?Recorded ?Last Taken ?Type PEP device #1 ea 08/15/23 Unknown Rx immun glob G 4 gram/20 mL (20 8 mg subcut QWEEK Unknown History %)-prol-IgA 0-50 mcg/mL subcutaneous syr (Hizentra) nebulizer kits #1 ea 08/30/24 Unknown Rx levalbuterol HCl 0.63 mg/3 mL 0.63 mg (3 mL) inhalatio n Q12H #90 10/01/24 Unknown Rx solution for nebulization mL cefdinir 300 mg capsule 300 mg PO BID #14 caps 11/06 Unknown Rx doxycycline monohydrate 100 mg 100 mg PO BID #14 CAPSU LES 11/06/24 Unknown Rx capsule Allergy/AdvReac Type Severity Reaction Status Date / Time No Known Allergies Allergy Verified 11/06/24 21:19 Surgical History Hx of section Social History household members: spouse Smoking Status: Never smoker substance use type: does not use ROS ROS ED Constitutional Constitutional ED: Reports chills, fever(s) and subjective; Denies weight loss Eyes Eyes: Denies change in vision or diplopia ENT ENT ED: Denies ear pain, rhinorrhea or sore throat Cardiovascular Cardiovascular: Reports chest pain; Denies orthopnea, palpitations or racing heartbeat Respiratory/Chest Respiratory/Chest: Reports cough and dyspnea; Denies orthopnea Gastrointestinal Gastrointestinal: Denies abdominal pain, diarrhea, nausea or vomiting Genitourinary Genitourinary ED: Denies dysuria, hematuria or urinary frequency Musculoskeletal Musculoskeletal: Reports arthralgias and myalgias Integumentary Denies abscess or rash Neurologic Neurologic: Denies headache(s) or weakness Psychiatric Psychiatric: Denies anxiety, depression, suicidal ideation or suicidal thoughts Endocrine Endocrinology: Denies polydipsia, polyphagia or polyuria Allergic/Immunologic Allergic/Immunologic ED: Denies mouth swelling, tongue swelling or urticaria EXAM Physical Exam Const Vital Signs: 11/06/24 21:19 11/06/24 21:38 11/06/24 22:55 Temperature 99.6 F H 98.5 F Temperature Source Oral Oral Pulse Rate 114 H 100 Respiratory Rate 18 18 Respiratory Effort Normal Respiratory Pattern Normal Blood Pressure 171/93 H 152/80 H Blood Pressure Mean 119 104 Pulse Ox 97 98 Oxygen Delivery Method Room Air Room Air Positive well nourished and well developed General Appearance ED: well developed and NAD HEENT Reports normocephalic, head/scalp atraumatic and moist mucous membranes Eyes PERRL and EOMs intact bilaterally Neck no lymphadenopathy, supple and no JVD Resp normal respiratory effort and clear to auscultation bilaterally Cardio regular rate, regular rhythm and no murmurs Rate: tachycardic GI normal to inspection, nondistended, normoactive bowel sounds and non-tender Palpation: soft Back/Spine no CVA tenderness and normal ROM Extremity normal to inspection General Extremety ED: Negative for edema General Extremity: Negative for edema Neuro oriented x3 and CN's II-XII intact bilaterally Sensorium / Orientation: alert Motor Exam: strength 5/5 throughout Psych mental status grossly normal Mood & Affect: Negative for depressed or tearful Skin no rashes or lesions noted and no wounds MDM MDM MDM Narrative Medical decision making narrative: Differential diagnosis includes acute coronary syndrome pulmonary embolism pneumonia pleural effusion pleurisy viral syndrome (COVID influenza RSV) sepsis. COVID influenza and RSV swab is negative. White count is elevated at 20.2. While seemingly significantly elevated. She has had these high white counts in the past as an outpatient. Most recently though her white count had normalized. CMP is within normal limits. A CTA of the chest was obtained. There appears to be a new infiltrative process in the left lower anterior lung valentino. This is where the patient is having her discomfort. Spoke with the patient and her regarding the above results. We talked about admission versus follow-up. I do think it is reasonable that she follow- up with infectious disease and she states that she was actually told that she should follow-up and was expecting a phone call from them soon. I am going to add on blood cultures Legionella antigen and strep pneumo antigen. Also write an order for her to bring up a sputum specimen. I would like for her to use her PEP device to help bring a good specimen. She is most recently been on Augmentin and Levaquin. I am going to write for her to have cefdinir and doxycycline. Patient is comfortable with return instructions and follow-up. History & Record Review Discussion w/independent historian: Patient and Significant other Additional record(s) reviewed:: Prior outpatient record and Prior labs Lab Data Attestation: I reviewed the patient's lab results. Labs: Laboratory Results - last 24 hr 11/06/24 11/06/24 21:35 22:30 WBC 20.2 H RBC 4.65 Hgb 13.1 Hct 37.9 MCV 81.5 MCH 28.2 MCHC 34.6 RDW Std Deviation 42.3 RDW Coeff of Mendy 14.4 Plt Count 536 H MPV 9.6 Immature Gran % (Auto) 0.500 Neut % (Auto) 77.6 H Lymph % (Auto) 14.8 L Towner % (Auto) 6.4 Eos % (Auto) 0.2 Baso % (Auto) 0.5 Absolute Neuts (auto) 15.7 H Absolute Lymphs (auto) 2.98 Nucleated RBC % 0 Sodium 140 Potassium 3.7 Chloride 104 Carbon Dioxide 23.7 Anion Gap 12 BUN 12 Creatinine 0.77 Estim Creat Clear Calc 80.92 Est GFR (MDRD) Non-Af 94 BUN/Creatinine Ratio 15.6 Glucose 139 H Calcium 9.4 Total Bilirubin 0.24 AST 26 ALT 21 Alkaline Phosphatase 94 Troponin T High Sens 7 Total Protein 6.9 Albumin 4.2 Globulin 2.7 Albumin/Globulin Ratio 1.5 Urine Color Yellow Urine Clarity Clear Urine pH 8.0 Ur Specific [place] 1.010 Urine Protein Negative Urine Glucose (UA) Normal Urine Ketones Negative Urine Occult Blood Negative Urine Nitrite Negative Urine Bilirubin Negative Urine Urobilinogen Normal Ur Leukocyte Esterase Negative Urine RBC 0 SEEN Urine WBC 0-5 SEEN Ur Squamous Epith Cells 0 SEEN Urine Bacteria 0 SEEN Urine Mucus 0 SEEN Radiography Diagnostic Testing: Clinical Impression(s) from Imaging Studies Chest CTA 11/06/24 21:55 IMPRESSION: No evidence of pulmonary embolism. Ground-glass and consolidative opacities left lower lobe and anterior right middle lobe, concerning for multifocal pneumonia. Reading Location: COUNTS INCLUDE 234 BEDS AT THE [facility] EKG Initial EKG: Attestation: I personally reviewed and interpreted this EKG as follows: Comments: Normal sinus rhythm ventricular rate of 100 bpm Discharge Plan Triage Chief Complaint: General Illness ED Provider: Yordan Vanegas Dx/Rx/DC Orders Clinical Impression: Pneumonia, Bronchiectasis, Chest pain, pleuritic Instructions: ED Pneumonia (Adult) Prescriptions: New cefdinir 300 mg capsule 300 mg PO BID Qty: 14 0RF doxycycline monohydrate 100 mg capsule 100 mg PO BID Qty: 14 0RF No Action (DME) PEP device See Rx Instructions .ROUTE .MEDSUPPLY Qty: 1 0RF Rx Instructions: with training Hizentra 4 gram/20 mL (20 %) syringe 8 mg subcut QWEEK (DME) nebulizer kits See Rx Instructions .ROUTE .MEDSUPPLY Qty: 1 11RF Rx Instructions: As directed levalbuterol HCl 0.63 mg/3 mL solution for nebulization 0.63 mg inhalation Q12H Qty: 90 3RF Other Ambulatory Orders: Culture, Sputum (Routine) Timeframe: 1 Day Facility: [facility] - Location: Laboratory Ordered By: Dr. Yordan Vanegas Primary Care Provider: Yarelis Fitzpatrick Referrals: Yarelis Fitzpatrick DO [Primary Care Provider] - Rajat Velázquez MD [Med Staff - Active Staff] - As soon as possible (for infectious disease) Print Language: Cambodian Disposition Disposition: Home, Self Care
[2024-11-06] MEDS: 0.9% Normal Saline (1000mL) 1,000 ML 999 ML IV (21:49)
[2024-11-06] MEDS: Ketorolac 30 MG/ML Syringe IV (21:49)
[2024-11-06 21:51] LABS: Absolute Lymphocyte Count 2.98 X10^3/uL (0.83-4.51); Absolute Neutrophil Count 15.7 X10^3/uL (2.0-7.7); Basophil# 0.11 X10^3/uL; Basophil% 0.5 % (0-1); Eosinophil# 0.05 X10^3/uL; Eosinophils% 0.2 % (0-5); Hematocrit 37.9 % (37-47); Hemoglobin 13.1 g/dL (12.0-15.0); Lymphocyte # 2.98 X10^3/ul (0.83-4.51); Lymphocyte % 14.8 % (19-41); Mean Corp Hgb Conc 34.6 g/dL (32-36); Mean Corpuscular Hgb 28.2 pg (27.0-32.0); Mean Corpuscular Volume 81.5 fL (81-99); Mean Platelet Vol. 9.6 fl (6.2-12.0); Monocyte% 6.4 % (0-10); NRBC Flagged by Analyzer 0 % (0-5); Neutrophil # 15.65 X10^3/uL (2.7-7.7); Neutrophil % 77.6 % (47-70); Platelet Count 536 K/mm3 (150-450); RBC Distribution Width CV 14.4 % (11.6-14.6); RBC Distribution Width SD 42.3 fl (35.1-43.9); Red Blood Count 4.65 M/mm3 (4.2-5.4); White Blood Count 20.2 K/mm3 (4.4-11.0)
--- NOTE | 2024-11-06 21:55 | CT_ITS ---
PROCEDURE: CTA CHEST W/WO CONTRAST 11/06/2024 REASON FOR EXAM: CHEST PAIN PULMONARY EMBOLISM TECHNIQUE: CTA axial imaging of the chest with intravenous contrast. Coronal, Sagittal and 3D with MIP reconstruction series were provided. PATIENT PREPARATION: Per protocol CONTRAST: VOLUME: 100mL Omnipaque 350 gauge IV One or more dose reduction techniques were used (e.g., Automated exposure control, adjustment of the mA and/or kV according to patient size, use of iterative reconstruction technique). COMPARISON: CT chest 10/15/2024 FINDINGS: Hardware: None Lymph nodes: Multiple prominent but nonenlarged by size criteria hilar and mediastinal lymph nodes, which are likely reactive. Heart: No cardiomegaly. Thoracic Aorta: No thoracic aortic aneurysm or dissection. Pulmonary Vessels: No large central pulmonary emboli are identified. Contrast timing is suboptimal for evaluation of more distal branches. Most Proximal Level of Embolus (if embolus present): Lungs and Airways: Central airways are patent without endobronchial lesions. Biapical scarring. Mild emphysema in the upper lobes. Scattered ground-glass and consolidative opacities, for example in the left lower lobe (series 2, image 79); and anterior right middle lobe (image 150). Findings are concerning for pneumonia. Mild bilateral bronchial wall thickening. No pneumothorax. No pleural effusion. Upper Abdomen: Small hiatal hernia. Bones: Bone windows are unremarkable. CT/CTA Chest W/WO Contrast IMPRESSION: No evidence of pulmonary embolism. Ground-glass and consolidative opacities left lower lobe and anterior right mid dle lobe, concerning for multifocal pneumonia. Reading Location: [facility]
[2024-11-06 22:28] LABS: ALB/GLOB Ratio 1.5 RATIO (0.9-2.4); AST(SGOT) 26 U/L (<=31); Alanine Aminotransfer ALT/SGPT 21 U/L (<=34); Albumin, Serum 4.2 g/dL (3.5-5.0); Alkaline Phosphatase 94 U/L (35-104); Anion Gap 12 (5-15); BUN 12 mg/dL (4-19); BUN/Creat Ratio 15.6 RATIO (10-20); Calcium,Total 9.4 mg/dL (7.6-11.0); Carbon Dioxide 23.7 mmol/L (21.0-32.0); Chloride 104 mmol/L (98-108); Creatinine, Serum 0.77 mg/dL (0.70-1.20); EST Glomerular Filtration Rate 94 (>60); Estimated Creatinine Clearance 80.92 ml/min (50-250); Globulin 2.7 g/dL (2.2-4.2); Glucose 139 mg/dL (70-99); Potassium 3.7 mmol/L (3.3-5.1); Protein, Total 6.9 g/dL (5.9-8.4); Sodium Level 140 mmol/L (133-145); Total Bilirubin 0.24 mg/dL (0.00-1.30)
[2024-11-06 22:40] LABS: Bacteria 0 SEEN /hpf (None Seen); Mucous, Urine 0 SEEN /hpf (<or=2+); Squamous Epithelial Cells - UA 0 SEEN /hpf (5-10)
[2024-11-06 22:41] LABS: Color, Urine Yellow (Yellow); Glucose, Dipstick Normal (Normal); Ketone-Dipstick Negative (Negative); Leukocyte Esterase-Dipstick Negative /ul (Negative); Nitrite-Dipstick Negative (Negative); Occult Blood-Urine Negative /ul (Negative); Protein-Dipstick Negative (Negative); Urine Bilirubin Dipstick Negative (Negative); Urine Clarity Clear (Clear); Urine Urobilinogen Normal (Normal)
[2024-11-06 22:55] VITALS: BP 152/80; PULSE 100; RESP 18; TEMP 36.9; O2SAT 98
[2024-11-06 23:00] LABS: Troponin T High Sensitivity 7 ng/L (<=14)
[2024-11-06 23:01] LABS: Red Blood Cells-Urine 0 SEEN /hpf (0-5); White Blood Cells 0-5 SEEN /hpf (0-5)
[2024-11-06] MEDS: Cefdinir 300 MG Capsule PO (23:30)
[2024-11-06 23:37] VITALS: BP 163/89; PULSE 98; RESP 18; TEMP 36.9; O2SAT 97
[2024-11-06] MEDS: Azithromycin 250 MG Tablet 500 MG PO (23:39)
== END 2024-11-06 23:41 | disposition home or self-care (01) ==
PROVIDERS: Emergency Provider Emergency Medicine; PCP Internal Medicine; Referring Provider Emergency Medicine; Visit Provider Emergency Medicine
DX: J18.9 Pneumonia, unspecified organism (principal); J47.9 Bronchiectasis, uncomplicated; R07.89 Other chest pain
CPT/HCPCS: 71275; 80053; 81001; 84484; 85025; 87040; 87070; 87077; 87186; 87205; 87449; 87631; 93005; 96361; 96374; 99284; Q9967; A4216

== ENCOUNTER → 2024-11-25 | Outpatient (CLI) | payer OTHER, SELFPAY | END | disposition home or self-care (01) | LOC: LABSPEC 06:44 | PROVIDERS: PCP Internal Medicine; Referring Provider Emergency Medicine; Visit Provider Emergency Medicine | DX: J18.9 Pneumonia, unspecified organism (principal) | CPT/HCPCS: 87070; 87077; 87186; 87205 ==

== ENCOUNTER 2024-12-08 06:49 | Emergency (ER) | payer OTHER, SELFPAY ==
[2024-12-08 06:50] VITALS: BP 182/99; PULSE 108; RESP 20; TEMP 36.8; O2SAT 97; BMI 22.6
[2024-12-08 06:54] VITALS: BP 165/83; PULSE 108; RESP 20; TEMP 36.8; O2SAT 97
--- NOTE | 2024-12-08 07:00 | EDS_ITS ---
HPI History of Present Illness Chief Complaint: Chest Other Detail of Chief Complaint: Productive cough, wheezing complicated by history of immune globulin defici Informant: patient Onset/Context/Timing Onset: Weeks Context: Sudden Onset Timing: Continuous and Waxes and wanes Quality: Upper respiratory symptoms with productive cough of colored sputum Location: Respiratory Current Severity: Mild Maximum Severity: Moderate Worsened by: Nothing specific Relieved by: Nothing Associated Symptoms Associated Symptoms: Subjective fever with chills Narrative Narrative: Patient is a 49-year-old woman. She has history of IgG immunodeficiency followed by Dr. Vazquez at [facility]. She was prescribed azithromycin. Her fifth dose will be this evening. She states she has had no improvement. She was recently seen by pulmonary. She had a PET scan and subsequent CAT scan. There is a spiculated right upper lobe 2.6 cm mass that was suspicious for malignancy. After reviewing PET scan, taking into consideration her history and consultation with several physicians it was determined this most likely represents scar tissue. Patient states she normally does not have runny nose or congestion when she gets pneumonia. Based on office note by nurse practitioner from pulmonary department patient had obstructive pneumonia recently. She denies history of VTE. She has no risk factors for VTE. She denies leg pain, swelling or discoloration. Patient states there is no one ill at home. She is never smoked. She denies headache, visual, ocular or auditory symptoms. She denies GI symptoms. She has been using her inhaler more frequently with improvement. Prior similar symptoms: Yes Recent Illness/Hospitalization: Yes [facility] Medical History Immunoglobulin deficiency Mass of upper lobe of right lung Bronchiectasis Immune deficiency disorder Home Medications ?Medication ?Instructions ?Recorded ?Last Taken ?Type PEP device #1 ea 08/15/23 Unknown Rx immun glob G 4 gram/20 mL (20 8 mg subcut QWEEK Unknown History %)-prol-IgA 0-50 mcg/mL subcutaneous syr (Hizentra) nebulizer kits #1 ea 08/30/24 Unknown Rx levalbuterol HCl 0.63 mg/3 mL 0.63 mg (3 mL) inhalatio n Q12H #90 10/01/24 Unknown Rx solution for nebulization mL azithromycin 250 mg tablet 250 mg PO DAILY #4 TABLETS 11/06/24 Unknown Rx cefdinir 300 mg capsule 300 mg PO BID #14 caps 11/06 Unknown Rx doxycycline monohydrate 100 mg 100 mg PO BID #14 CAPSU LES 12/08/24 Unknown Rx capsule prednisone 20 mg tablet 60 mg (3 x 20 mg) PO DAILY # 15 12/08/24 Unknown Rx TABLETS Allergy/AdvReac Type Severity Reaction Status Date / Time No Known Allergies Allergy Verified 12/08/24 06:51 Surgical History Hx of section Social History household members: spouse Smoking Status: Never smoker substance use type: does not use ROS ROS ED Constitutional Constitutional ED: Reports chills, fever(s), subjective and sweats; Denies weight loss Eyes Eyes: Denies blurry vision or change in vision ENT ENT ED: Reports rhinorrhea; Denies ear pain or sore throat Cardiovascular Cardiovascular: Denies chest pain, orthopnea, palpitations or paroxysmal nocturnal dyspnea Respiratory/Chest Respiratory/Chest: Reports cough, dyspnea, dyspnea on exertion and sputum; Denies orthopnea or paroxysmal nocturnal dyspnea Gastrointestinal Gastrointestinal: Denies abdominal pain, nausea or vomiting Genitourinary Genitourinary ED: Denies dysuria, hematuria or urinary frequency Musculoskeletal Musculoskeletal: Denies arthralgias or myalgias Integumentary Denies rash Neurologic Neurologic: Reports weakness Endocrine Endocrinology: Denies cold intolerance or heat intolerance Hematologic/Lymphatic Hematologic/Lymphatic: Reports systems reviewed and no addt'l complaints, except as documented Allergic/Immunologic Allergic/Immunologic ED: Denies mouth swelling EXAM Physical Exam Const Vital Signs: 12/08/24 06:50 12/08/24 06:54 12/08/24 07:10 Temperature 98.2 F 98.2 F Temperature Source Oral Oral Pulse Rate 108 H 108 H 108 H Respiratory Rate 20 H 20 H 22 H Respiratory Pattern Tachypnea Blood Pressure 182/99 H 165/83 H Blood Pressure Mean 126 110 Pulse Ox 97 97 Oxygen Delivery Method Room Air 12/08/24 07:15 Temperature Temperature Source Pulse Rate Respiratory Rate Respiratory Pattern Hyperpnea Blood Pressure Blood Pressure Mean Pulse Ox Oxygen Delivery Method Room Air Positive well nourished and well developed Constitutional Narrative: Patient looks ill but nontoxic. Vital signs are marked for an elevated blood pressure, heart rate and respiratory rate. She is not febrile nor she hypoxic. General Appearance ED: well developed; Negative for pallor HEENT HEENT Narrative: Head is atraumatic normocephalic. Ears normal. Nares patent. Eyes PERRL and EOMs intact bilaterally General Eye ED: Negative for pale conjunctiva or scleral icterus Neck no lymphadenopathy, supple and no JVD Resp normal respiratory effort and No clear to auscultation bilaterally Resp Narrative: Patient has bilateral rales and expiratory wheezing greater on the right. There is egophony with question of increased vocal fremitus right lower lobe posteriorly. Expiratory phase is slightly increased. There is no use of accessory muscles. She is tachypneic. Cardio regular rhythm, S1 normal heart sound, S2 normal heart sound and no murmurs Rate: tachycardic GI normal to inspection, nondistended, normoactive bowel sounds, non-tender, non- distended and no masses; Negative for hepatosplenomegaly Extremity normal to inspection General Extremety ED: Negative for edema General Extremity: Negative for edema Neuro oriented x3 and CN's II-XII intact bilaterally Sensorium / Orientation: alert Psych mental status grossly normal Skin no rashes or lesions noted, no wounds and skin turgor normal General Skin Exam: Negative for jaundice or pallor MDM MDM MDM Narrative Medical decision making narrative: Differential diagnosis would include upper respiratory viral infection, obstructive pneumonia, history and physical is not consistent with PE. There is no concern for pneumothorax. History is not consistent with cardiac disease either. Workup included chest x-ray appropriate blood work. Because she did n ot improve in spite of antibiotics rapid antigen for COVID, influenza and RSV was obtained. Especially since she reports that normally she does not have rhinorrhea or congestion when diagnosed with pneumonia. History & Record Review Additional record(s) reviewed:: Prior outpatient record (Pulmonary office visit authored by Ce Morin was reviewed. Office visit was November 01, 2024. 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 The soft tissue mass was located in the right upper lobe and was 2.6 cm. There was ext), Prior ED visit (Patient was seen November 06, 2024 for respiratory symptoms/bronchiectasis.) and Prior labs Lab Data Attestation: I reviewed the patient's lab results. Lab results narrative: White count is elevated. There is no shift. Patient has not been on any prednisone or steroid in the last 3 to 6 months. Labs: Laboratory Results - last 24 hr 12/08/24 12/08/24 06:57 07:24 WBC 17.8 H RBC 4.90 Hgb 13.4 Hct 39.6 MCV 80.8 L MCH 27.3 MCHC 33.8 RDW Std Deviation 45.0 H RDW Coeff of Mendy 15.3 H Plt Count 435 MPV 9.6 Immature Gran % (Auto) 0.500 Neut % (Auto) 69.1 Lymph % (Auto) 21.5 [place] % (Auto) 7.8 Eos % (Auto) 0.7 Baso % (Auto) 0.4 Absolute Neuts (auto) 12.3 H Absolute Lymphs (auto) 3.83 Nucleated RBC % 0 Sodium 140 Potassium 4.2 Chloride 102 Carbon Dioxide 25.5 Anion Gap 12 BUN 9 Creatinine 0.65 L Estim Creat Clear Calc 95.86 Est GFR (MDRD) Non-Af 107 BUN/Creatinine Ratio 14.0 Glucose 113 H Lactic Acid 1.3 Calcium 9.3 Total Bilirubin 0.29 AST 30 ALT 29 Alkaline Phosphatase 145 H Total Protein 7.2 Albumin 4.3 Globulin 2.9 Albumin/Globulin Ratio 1.5 Radiography Chest X-Ray - ED: 2 View, Read by ED Physician (There is atelectasis right upper lobe and fullness right upper lobe near the mediastinum. This is essentially unchanged from prior x-ray and area that was noted on recent CTA. There is no abnormality on the right lower lobe. Clinically she has pneumonia in the right lower lobe.), Unchanged, Heart, Bony Structures and Chronic Changes Diagnostic Testing: Clinical Impression(s) from Imaging Studies Chest X-Ray 12/08/24 07:10 IMPRESSION: COPD type changes. No change since prior examination. No new infiltrate or consolidation is seen. Reading Location: [id number] Treatment and Re-Evaluation :: Patient was reexamined at 0845. She is moving much more air. There is increased rales and rhonchi right lower lobe. There is egophony increased vocal fremitus. Since she is tachycardic slightly tachypneic and clinically she has a pneumonia even though chest x-ray shows no abnormality will change antibiotic to doxycycline and place on burst of prednisone. The rapid antigen for COVID, influenza and RSV were negative. She does have an appointment with her doctor at [facility] tomorrow, Dr. Vazquez she was instructed to discontinue the azithromycin. Discharge Plan Triage Chief Complaint: Chest Other ED Provider: Mike Mai Dx/Rx/DC Orders Clinical Impression: Pneumonia, Acute bronchospasm, Sinus tachycardia seen on property assessment monitor, Immune deficiency disorder, Elevated blood-pressure reading without diagnosis of hypertension Instructions: ED Pneumonia (Adult) Prescriptions: New prednisone 20 mg tablet 60 mg PO DAILY Qty: 15 0RF doxycycline monohydrate 100 mg capsule 100 mg PO BID Qty: 14 0RF No Action (DME) PEP device See Rx Instructions .ROUTE .MEDSUPPLY Qty: 1 0RF Rx Instructions: with training Hizentra 4 gram/20 mL (20 %) syringe 8 mg subcut QWEEK (DME) nebulizer kits See Rx Instructions .ROUTE .MEDSUPPLY Qty: 1 11RF Rx Instructions: As directed cefdinir 300 mg capsule 300 mg PO BID Qty: 14 0RF azithromycin 250 mg tablet 250 mg PO DAILY Qty: 4 0RF levalbuterol HCl 0.63 mg/3 mL solution for nebulization 0.63 mg inhalation Q12H Qty: 90 3RF Primary Care Provider: Yarelis Fitzpatrick Referrals: Yarelis Fitzpatrick, [Primary Care Provider] - 1 Week if not improving Activity Restrictions/Additional Instructions: 1. Discontinue the azithromycin 2. Start the doxycycline once you fill the prescription 3. Take prednisone until gone 4. 2 puffs of your inhaler every 2-4 hours while awake for the next 3 days. Print Language: Afghan Disposition Disposition: Home, Self Care
[2024-12-08 07:10] VITALS: PULSE 108; RESP 22
--- NOTE | 2024-12-08 07:10 | RAD_ITS ---
PROCEDURE: CHEST PA AND LATERAL 12/08/2024 REASON FOR EXAM: PRODUCTIVE COUGH, WHEEZING, EGOPHONYRLL TECHNIQUE: Frontal and lateral views of the chest. COMPARISON: Chest x-ray dated 08/27/2024. FINDINGS: The cardiac silhouette is within normal limits. The lungs are hyperlucent and hyperexpanded due to COPD type changes. No focal consolidation is seen within the lungs. No pneumothorax. Areas of scarring seen within the upper lung zones. RAD/Chest PA and Lateral IMPRESSION: COPD type changes. No change since prior examination. No new infiltrate or co nsolidation is seen. Reading Location: [id number]
[2024-12-08] MEDS: Albuterol 2.5 MG/3 ML VIAL.NEB. INHALATION ×3 (07:12→07:21)
[2024-12-08 07:15] VITALS: O2SAT 97
[2024-12-08 07:15] LABS: Absolute Lymphocyte Count 3.83 X10^3/uL (0.83-4.51); Absolute Neutrophil Count 12.3 X10^3/uL (2.0-7.7); Basophil# 0.08 X10^3/uL; Basophil% 0.4 % (0-1); Eosinophil# 0.12 X10^3/uL; Eosinophils% 0.7 % (0-5); Hematocrit 39.6 % (37-47); Hemoglobin 13.4 g/dL (12.0-15.0); Lymphocyte # 3.83 X10^3/ul (0.83-4.51); Lymphocyte % 21.5 % (19-41); Mean Corp Hgb Conc 33.8 g/dL (32-36); Mean Corpuscular Hgb 27.3 pg (27.0-32.0); Mean Corpuscular Volume 80.8 fL (81-99); Mean Platelet Vol. 9.6 fl (6.2-12.0); Monocyte# 1.39 X10^3/uL; Monocyte% 7.8 % (0-10); NRBC Flagged by Analyzer 0 % (0-5); Neutrophil # 12.29 X10^3/uL (2.7-7.7); Neutrophil % 69.1 % (47-70); Platelet Count 435 K/mm3 (150-450); RBC Distribution Width CV 15.3 % (11.6-14.6); White Blood Count 17.8 K/mm3 (4.4-11.0)
[2024-12-08 07:43] LABS: ALB/GLOB Ratio 1.5 RATIO (0.9-2.4); AST(SGOT) 30 U/L (<=31); Alanine Aminotransfer ALT/SGPT 29 U/L (<=34); Albumin, Serum 4.3 g/dL (3.5-5.0); Alkaline Phosphatase 145 U/L (35-104); Anion Gap 12 (5-15); BUN 9 mg/dL (4-19); Calcium,Total 9.3 mg/dL (7.6-11.0); Carbon Dioxide 25.5 mmol/L (21.0-32.0); Chloride 102 mmol/L (98-108); Creatinine, Serum 0.65 mg/dL (0.70-1.20); EST Glomerular Filtration Rate 107 (>60); Estimated Creatinine Clearance 95.86 ml/min (50-250); Globulin 2.9 g/dL (2.2-4.2); Glucose 113 mg/dL (70-99); Potassium 4.2 mmol/L (3.3-5.1); Protein, Total 7.2 g/dL (5.9-8.4); Sodium Level 140 mmol/L (133-145); Total Bilirubin 0.29 mg/dL (0.00-1.30)
[2024-12-08 08:11] LABS: Lactic Acid 1.3 mmol/L (0.0-2.0)
[2024-12-08 09:17] VITALS: BP 148/96; PULSE 106; RESP 22; TEMP 36.6; O2SAT 97
== END 2024-12-08 09:23 | disposition home or self-care (01) ==
PROVIDERS: Emergency Provider Emergency Medicine; PCP Internal Medicine; Visit Provider Emergency Medicine
DX: J18.9 Pneumonia, unspecified organism (principal); J98.01 Acute bronchospasm; D84.9 Immunodeficiency, unspecified; R03.0 Elevated blood-pressure reading, without diagnosis of hypertension; R00.0 Tachycardia, unspecified
CPT/HCPCS: 71046; 80053; 83605; 85025; 87631; 94640; 99285; A4216

== ENCOUNTER → 2024-12-21 | Outpatient (CLI) | payer OTHER, SELFPAY ==
[2024-12-22 07:08] LABS: Immunoglobulin G 936 mg/dL (586-1602)
== END | disposition home or self-care (01) ==
LOC: LAB 11:33
PROVIDERS: PCP Internal Medicine
DX: B99.9 Unspecified infectious disease (principal); D83.9 Common variable immunodeficiency, unspecified; R76.8 Other specified abnormal immunological findings in serum
CPT/HCPCS: 36415; 82784

== ENCOUNTER → 2025-01-11 | Outpatient (CLI) | payer OTHER, SELFPAY | END | disposition home or self-care (01) | LOC: LAB 08:33 | PROVIDERS: PCP Internal Medicine; Referring Provider Nurse Practitioner Family; Visit Provider Nurse Practitioner Family | DX: J47.9 Bronchiectasis, uncomplicated (principal) | CPT/HCPCS: 87070; 87077; 87205 ==

== ENCOUNTER → 2025-01-30 | Outpatient (CLI) | payer OTHER, SELFPAY ==
--- OUTSIDE RECORDS SUMMARY | 2025-01-30 07:07 | XMS RPT_ITS | CCD ---
Author Organization [facility] ion [facility] Care Team Providers Care Stabilizing Machine Operator Name Role Phone Yarelis Fitzpatrick Unavailable Chris Villeda Unavailable Eliseo Corral Unavailable Gravenedelia, Haydee Unavailable Unavailable Lissett Tolbert Unavailable Unavailable Slarb, Kiesha Unavailable Unavailable Unavailable Unavailable Ciesa, Lu Unavailable Erasmo Huynh Unavailable Unavailable Blanca Morrow Unavailable Unavailable Yarelis Fitzpatrick DO Unavailable Dr. Eliseo Corral Unavailable Erasmo Huynh LPN Unavailable Unavailable Lissett Tolbert RN Unavailable Unavailable Blanca Morrow LPN Unavailable Unavailable Ciesa CHILD CARE SITTER, Lu Unavailable Slarb CONTROL BOARD OPERATOR, Kiesha Unavailable Unavailable Unavailable Unavailable Edu MCGEE, Haydee Unavailable Unavailable Yarelis Fitzpatrick DO Primary Care Provider Yarelis Fitzpatrick DO Unavailable Yaa Calderon MA Unavailable Unavailable Pam Escamilla MD Unavailable Sylvia CONTROL BOARD OPERATOR, Ingrid Unavailable Unavailable Olantapapito MCGEE, Kayela Unavailable Unavailable Xochilt MCGEE Lyubov Unavailable Unavailable Yarelis Fitzpatrick DO Primary Care Provider Fast DO Heydi A Unavailable Dylon Vazquez MD Unavailable Yarelis Fitzpatrick DO Attending Unavailable Yarelis Fitzpatrick DO Consulting Unavailable Dr. Yarelis Fitzpatrick Primary Care Provider Dr. Balta Whipple Attending Provider Dr. Yarelis Fitzpatrick Referring Provider Dr. Rakesh Meeks Attending Provider Luz ElenamadelynGlynn Unavailable Patience Matute MA Unavailable Unavailable No political science instructor, Md Primary Care Provider Domitila vailable Dr. Yarelis Fitzpatrick Primary Care Provider Dr. Rakesh Meeks Referring Provider Dr. Rakesh Meeks Other Provider Dr. Adrien Millard Attending Provider Dr. Yarelis Fitzpatrick Referring Provider [place] POLICY SERVICES REPRESENTATIVE, POLICY SERVICES REPRESENTATIVE-C Yesenia Attending Provider [phone] Yarelis Fitzpatrick DO Primary Care Provider No political science instructor, Md Primary Care Provider Domitila vailable Dr. Yarelis Fitzpatrick DO Primary Care Provider Dr. Balta Whipple MD Attending Provider Kavon POLICY SERVICES REPRESENTATIVE-CKimberly Attending Provider Kavon SNEED-CKimberly Referring Provider Dr. Yarelis Fitzpatrick DO Referring Provider Patience Hopkins Attending Provider Nasima SNEED-CPatience Referring Provider Dr. Yarelis Fitzpatrick DO Attending Provider Kavon POLICY SERVICES REPRESENTATIVE-CKimberly Other Provider Dr. Yordan Vanegas DO Referring Provider [phone]. Yordan Vanegas DO Emergency Provider Dr. Yordan Vanegas DO Attending Provider Dr. Mike Mai MD Emergency Provider DYLON VAZQUEZ Referring Unavailable DYLON VAZQUEZ Attending Unavailable NO PRIMARY CARE, Primary Care Unavailable DYLON VAZQUEZ Attending Unavailable NO PRIMARY CARE, Primary Care Unavailable REFERRED, SELF Referring Unavailable DYLON VAZQUEZ Referring Unavailable DYLON VAZQUEZ Attending Unavailable NO PRIMARY CARE, Primary Care Unavailable DOC, MISC Primary Care Unavailable DYLON VAZQUEZ Attending Unavailable REFERRED, SELF Referring Unavailable Sergei SIERRA, Dr. Mckeon Attending Provider LUIS M VAZQUEZ Attending Provider LUIS M VAZQUEZ Referring Provider Dr. Yarelis Fitzpatrick DO Primary Care Provider Nasima POLICY SERVICES REPRESENTATIVE-CPatience Attending Provider Nasima POLICY SERVICES REPRESENTATIVE-CPatience Referring Provider Dr. Yarelis Fitzpatrick DO Referring Provider [phone] Dr. Rajat Tarango MD, V Other Provider [phone] CELINA GUTIERREZ Referring Unavailable CELINA GUTIERREZ Attending Unavailable Amari, Yarelis Primary Care Unavailable RunataliyaerPatience M Attending Unavailable Rufener, Patience M Referring Unavailable Rajat Tarango V Consulting Unavailable Amari, Yarelis Primary Care Unavailable Amari, Yarelis Primary Care Unavailable Kavon Kimberly Referring Unavailable Pearl Jacobsonyn Attending Unavailable Amari, Yarelis Attending Unavailable Amari, Yarelis Primary Care Unavailable Rufener, Patience M Referring Unavailable Kimberly Jacobson Consulting Unavailable Danielfener, Patience M Referring Unavailable RufenerPatience M Attending Unavailable Amari, Yarelis Primary Care Unavailable RufenerPatience M Attending Unavailable Rufener, Patience M Referring Unavailable Amari, Yarelis Primary Care Unavailable Rufener Patience M Attending Unavailable Rufener, Patience M Referring Unavailable Amari, Yarelis Primary Care Unavailable Amari, Yarelis Referring Unavailable Rufener, Patience M Attending Unavailable Amari, Yarelis Primary Care Unavailable Balta Whipple Attending Unavailable Yordan Vanegas Referring Unavailable Yordan Vanegas Attending Unavailable Amari, Yarelis Primary Care Unavailable Mike Mai Attending Unavailable Amari, Yarelis Primary Care Unavailable Yordan Vanegas Referring Unavailable Yordan Vanegas Attending Unavailable Amari, Yarelis Primary Care Unavailable Yarelis Fitzpatrick Primary Care Unavailable Kimberly Jacobson Referring Unavailable Kimberly Jacobson Attending Unavailable Yarelis Fitzpatrick Referring Unavailable Patience Del Real Attending Unavailable Yarelis Fitzpatrick Primary Care Unavailable Medications Current Medications Medication Drug Class(es) Dates Sig (Normalized) Sig (Original) albuterol 0.833 mg/ml / ipratropium bromide 0.167 mg/ml inhalation solution (4 sources) Anticholinergic, beta2-Adrenergic Agonist Start: 05-14-2021 take 3 mL by inhalation every four hours as needed for wheezing ipratropium-albut aamir (DUONEB) 0.5 mg-3 mg(2.5 mg base)/3 mL nebu Indications: LRTI (lower respiratory tract infection) Inhale 3 mL as instructed every 4 hours as needed for wheezing/shortnes s of breath. 90 mL 2 05/14/2021 Active Comment on above: Inhale 3 mL as instr ucted every 4 hours as needed for wheezing/shortness of breath. azelastine hydrochloride 0.137 mg/actuat metered dose nasal spray (2 sources) Histamine-1 Receptor Antagonist Start: 2024 azelastine (ASTELIN) 0.1 % nasal spray 1-2 Sprays by Each Nare route 2 times daily 30 mL 11 2024 Active Start: 02-09-2023 azelastine ( TELIN) 0.1 % nasal spray 1-2 Sprays by Each Nare route 2 times daily 30 mL 11 02/09/2023 Active azithromycin 250 mg oral tablet (20 sources) Macrolide Antimicrobial Start: 11-06-2024 take 1 tablet by mouth once daily Azithromycin 250 mg tablet Active 250 mg PO DAILY November 06, 2024 12:00am Start: 2024 End: 06-15-2024 take 2 tablets by mouth every twenty-four hours, then take 1 tablet by mouth every twenty-four hours azithromycin (ZITHROMAX) 250 MG tablet Take 2 Tablets (500 mg) by mouth every 24 hours for 1 day, THEN 1 Tablet (250 mg) every 24 hours for 4 days. 6 Tablet 2024 06/15/2024 Active Start: 02-09-2023 End: 02-14-2023 take 2 tablets by mouth every twenty-four hours, then take 1 tablet by mouth every twenty-four hours azithromycin (ZITHROMAX) 250 MG tablet Take 2 Tablets (500 mg) by mouth every 24 hours for 1 day, THEN 1 Tablet (250 mg) every 24 hours for 4 days. 6 Tablet 0 02/09/2023 02/14/2023 Active Start: 09-29-2022 End: 10-07-2022 Zithromax Z-Carlos 250 mg oral tablet 1 (one) Tablet TAD for 0 days Quantity: 1 {Packet} Refills: 0 Ordered: 07-Oct-2022 Akinhyun MCGEELyubov Start : 29-Sep-2022 End : 07-Oct-2022 Inactive Start: 06-14-2022 Zithromax Z-Pa k 250 MG Oral Tablet 1 (one) Tablet TAD for 0 days Quantity: 1 {Packet} Refills: 0 Ordered: 14-Jun-2022 Yarelis Fitzpatrick DO, DO, Kathleen Start : 14-Jun-2022 Active Start: 04-28-2022 End: 05-08-2022 take 1 tablet by mouth once daily Azithromycin 500 MG Oral Tablet 1 (one) Tablet daily for 10 days Quantity: 10 {Tablet} Refills: 0 Ordered: 28-Apr-2022 Ingrid Ward LPN Start : 28-Apr-2022 End : 08-May-2022 Inactive Start: 10-12-2020 End: 01-22-2021 Zithromax Z-Carlos 250 MG Oral Tablet 1 (one) Tablet TAD for 0 days Quantity: 1 {Package} Refills: 0 Ordered: 22-Jan-2021 Haydee Sorensen CMA Start : 12-Oct-2020 End : 22-Jan-2021 Inactive cefdinir 300 mg oral capsule (5 sources) Cephalosporin Antibacterial Start: 11-06-2024 take 1 capsule by mouth twice daily Cefdinir 300 mg capsule Active 300 mg PO TWICE A DAY November 06, 2024 12:00am cetirizine hydrochloride 10 mg oral tablet (6 sources) Histamine-1 Receptor Antagonist Start: 09-12-2020 take 10 mg by mouth at bedtime Cetirizine Active 10 MG PO AT BEDTIME September 12, 2020 1:00am take 1 tablet by deidre th once daily at bedtime Cetirizine (ZYRTEC) 10 mg cap Take 1 tab let by mouth daily at bedtime. Active Comment on above: Take 1 tablet by deidre th daily at bedtime. ciprofloxacin 3 mg/ml ophthalmic solution (1 source) Quinolone Antimicrobial Start: 11-07-19 End: 11-14-19 take 1 drop(s) into the eye(s) four times daily ciprofloxacin HCl (CILOXAN) 0.3 % ophthalmic solution Indications: Bacterial conjunctivitis Use 1 Drop in both eyes four times daily for 7 days. 5 mL 0 11/06/2022 11/13/2022 Active Comment on above: Use 1 Drop in both e yes four times daily for 7 days. doxycycline monohydrate 100 mg oral capsule (19 sources) Tetracycline-class Drug Start: 12-09-19 take 1 capsule by mouth twice daily Doxycycline Monohydrate 100 mg capsule Active 100 mg PO TWICE A DAY December 08, 2024 12:00am Start: 11-06-2022 End: 11-13-2022 take 1 tablet by mouth twice daily doxycycline monohydrate 100 mg tablet Indications: Sinobronchitis Take 1 tablet by mouth twice daily for 7 days. 14 tablet 0 11/06/2022 11/13/2022 Active Start: 11-06-2022 End: 01-24-2023 take 1 tablet by mouth once daily Doxycycline Hyclate 100 mg Tablet Discontinued 100 mg PO DAILY November 06, 2022 12:00am January 24, 2023 6:47am Start: 01-23-2022 End: 01-30-2022 take 1 tablet by mouth twice daily doxycycline monohydrate 100 mg tablet Indications: Lower resp. tract infection Take 1 tablet by mouth twice daily for 7 days. 14 tablet 0 01/23/2022 01/30/2022 Active Start: 08-11-2021 End: 08-21-2021 take 1 tablet by mouth twice daily doxycycline monohydrate 100 mg tablet Take 1 tablet by mouth twice daily for 10 days. 20 tablet 08/11/2021 08/21/2021 Comment on above: Take 1 tablet by deidre th twice daily for 7 days. 20 ml immunoglobulin g, human 200 mg/ml prefilled syringe (10 sources) Human Immunoglobulin G Start: 08-30-2024 Immun Glob G(Igg)-Pro-Iga 0-50 (Hizentra) 4 gram/20 mL (20 %) syringe Active 8 mg SC EVERY WEEK August 30, 2024 1:00am Start: 11-23-2023 immune globuli n, Human, 5gm (GAMMAGARD) 5 GM/50ML SOLN injection Infuse 250 mL (25 g) intravenously every 28 days 250 mL 11/23/2023 Active Start: 09-06-2023 Immune Globuli n, Human, (HIZENTRA) 4 GM/20ML SOLN subcutaneous Inject 40 mL (8 g) into the skin once a week 160 mL 11 09/06/2023 Active Start: 09-04-2023 Immune Globuli n, Human, (HIZENTRA) 4 GM/20ML SOSY Inject 40 mL (8 g) into the skin once a week 160 mL 09/04/2023 Active Start: 02-10-2023 Immune Globuli n, Human, (HIZENTRA) 4 GM/20ML SOSY Inject 40 mL (8 g) into the skin once a week 160 mL 02/10/2023 Active methylPREDNISolone 4 mg oral tablet (1 source) Corticosteroid Start: 12-18-2023 take 1 tablet by mouth once daily methylPREDNISolone (MEDROL, CARLOS,) 4 MG Dose-Carlos (21 EACH) Take 1 Tablet (4 mg) by mouth daily Follow printed directions on package. 21 Each 12/18/2023 Active nebulizer kits (6 sources) Start: 08-30-2024 nebulizer kits Active 0 .ROUTE .MEDSUPPLY August 30, 2024 1:00am As directed PEP device (7 sources) Start: 08-15-2023 PEP device Active 0 .ROUTE .MEDSUPPLY August 15, 2023 1:00am with training Start: 08-15-2023 PEP device Act titus 0 .ROUTE .MEDSUPPLY August 15, 2023 12:00am with training polymyxin b [id number] unt/ml / trimethoprim 1 mg/ml ophthalmic solution (20 sources) Dihydrofolate Reductase Inhibitor Antibacterial, Polymyxin-class Antibacterial Start: 01-23-2022 End: 01-30-2022 take 1 drop(s) into the eye(s) four times daily trimethoprim-polymyxin (POLYTRIM) 10,000 unit- 1 mg/mL ophthalmic solution Indications: Lower resp. tract infection Use 1 Drop in both eyes four times daily for 7 days. 10 mL 0 01/23/2022 01/30/2022 Active Start: 02-09-2021 End: 07-02-2021 Polymyxin B-Trimethoprim 100 00-0.1 UNIT/ML-% Ophthalmic Solution 1 (one) Metric Drop qid for 0 days Quantity: 1 {Bottle} Refills: 0 Ordered: 02-Jul-2021 Yaa Calderon MA Start : 09-Feb-2021 End : 02-Jul-2021 Inactive Comment on above: Use 1 Drop in both e yes four times daily for 7 days. predniSONE 20 mg oral tablet (20 sources) Start: 12-08-2024 take 3 tablets by mouth once daily Prednisone 20 mg tablet Active 60 mg PO DAILY December 08, 2024 12:00am Start: 11-06-2022 End: 11-11-2022 take 2 tablets by mouth once daily predniSONE (DELTASONE) 20 mg tablet Indications: Sinobronchitis , History of asthma Take 2 tablets by mouth once daily for 5 days. 10 tablet 0 11/06/2022 11/11/2022 Active Start: 10-07-2022 End: 12-16-2022 take 1 tablet by mouth at mealtime, then take 1 tablet by mouth at mealtime, then take 0.5 tablet by mouth at mealtime predniSONE 20 mg oral tablet 1 (one) Tablet use as directed for 0 days Quantity: 13 {Tablet} Refills: 0 Ordered: 16-Dec-2022 Kiesha Martinez LPN Start : 07-Oct-2022 End : 16-Dec-2022 Inactive Comments: 2 tablets in am with food x 4days then 1 tablets in am with food x 3 days then 1/2 tablet in am with food x 4days Start: 04-26-2022 End: 2022 predniSONE 10 MG Oral Tablet 1 (one) Tablet as directed for 0 days Quantity: 30 {Tablet} Refills: 0 Ordered: 10-Jun-2022 Erasmo Huynh LPN Start : 26-Apr-2022 End : 10-Jun-2022 Inactive Comments: 40mg PO x3 days, then 30mg x3 days, 20mg x3 days, 10mg x3 days Start: 02-22-2022 predniSONE 10 MG Oral Tablet 1 (one) Tablet 2bid x 3 days, 1 bid x 3 days for 0 days Quantity: 18 {Tablet} Refills: 0 Ordered: 22-Feb-2022 Pam Escamilla MD Start : 22-Feb-2022 Active Comments: with food Start: 01-23-2022 End: 01-28-2022 take 2 tablets by mouth once daily predniSONE (DELTASONE) 20 mg tablet Indications: Lower resp. tract infection Take 2 tablets by mouth once daily for 5 days. 10 tablet 0 01/23/2022 01/28/2022 Active Start: 08-11-2021 End: 08-20-2021 predniSONE (DELTASONE) 10 mg tablet Take 4 tabs daily for 3 days, then 2 tabs daily for 3 days, then 1 tab daily for 3 days with food. 21 tablet 08/11/2021 08/20/2021 Start: 02-09-2021 End: 07-02-2021 predniSONE 10 MG Oral Tablet 1 (one) Tablet 2bid x 3 days, 1 bid x 3 days 1 daily x 3 days for 0 days Quantity: 21 {Tablet} Refills: 0 Ordered: 02-Jul-2021 Yaa Calderon MA Start : 09-Feb-2021 End : 02-Jul-2021 Inactive Comments: with food Start: 02-28-2020 End: 09-14-2020 take 1 tablet by mouth at mealtime, then take 2 tablets by mouth at mealtime, then take 1 tablet by mouth at mealtime, then take 0.5 tablet by mouth at mealtime predniSONE 20 MG Oral Tablet 1 (one) Tablet use as directed for 0 days Quantity: 28 {Tablet} Refills: 0 Ordered: 14-Sep-2020 Kiesha Martinez LPN Start : 28-Feb-2020 End : 14-Sep-2020 Inactive Comments: 3 tablets in am with food x 7 days then 2 tablets in am with food x 7 days then 1 tablet in am with food x 7 days then 1/2 tablet in am with food x 7 days Start: 01-10-2020 End: 09-14-2020 predniSONE 20 MG Oral Tablet 1 (one) tablet uad for 0 days Quantity: 50 {Tablet} Refills: 0 Ordered: 14-Sep-2020 Kiesha Martinez LPN Start : 10-Jan-2020 End : 14-Sep-2020 Inactive Comments: 2-tabs bid for 4days one tab Bid x 6 days, then 1.5 tab Qd x 10daysthen 1 tab qd x 10 days1/2 tab qd for 10 days then stop Comment on above: 3 tablets in am with food x 7 days then 2 tablets in am with food x 7 days then 1 tablet in am with food x 7 days then 1/2 tablet in am with food x 7 days 2-tabs bid for 4days one tab Bid x 6 days, then 1.5 tab Qd x 10daysthen 1 tab qd x 10 days1/2 tab qd for 10 days then stop with food Take 2 tablets by [facility] once daily for 5 days. 40mg PO x3 days, the n 30mg x3 days, 20mg x3 days, 10mg x3 days 2 tablets in am with food x 4days then 1 tablets in am with food x 3 days then 1/2 tablet in am with food x 4days vitamin B12 (2 sources) Vitamin B12 Cyanocobalamin ( VITAMIN B 12 PO) Take by mouth Active Cyanocobalamin ( VITAMIN B 12 PO) Take by mouth 0 Active Completed/Discontinued Medications Medication Drug Class(es) Dates Sig (Normalized) Sig (Original) acetaminophen 325 mg / HYDROcodone bitartrate 5 mg oral tablet (20 sources) Opioid Agonist Start: 03-14-2023 End: 08-15-2023 Hydrocodone-Acetami nophen 5-325 mg tablet Discontinued 1 {tbl} PO EVERY 6 HOURS NEEDED as needed for Pain 10 March 14, 2023 August 15, 2023 3:46pm Start: 03-14-2023 End: 08-15-2023 take 1 tablet by mouth every six hours as needed Hydrocodone-Acetaminophen Discontinued 1 TABLET PO EVERY 6 HOURS NEEDED 10 March 14, 2023 August 15, 2023 2:46pm VICODIN, 5-500MG (Oral Tablet) 1 tab PRN for 0 days Refills: 0 Ordered: 30-Apr-2010 MANUEL Voss LPN Inactive Comments: given by dentist Comment on above: given by dentist acetaminophen 325 mg / oxyCODONE hydrochloride 5 mg oral tablet (10 sources) Opioid Agonist Start: 3 End: 3 Oxycodone-Acetaminop hen (Percocet) 5-325 mg tablet Discontinued 1 {tbl} PO EVERY 6 HOURS as needed for pain 12 3 November 07, 2022 January 24, 2023 6:47am [id number] 200 actuat albuterol 0.09 mg/actuat metered dose inhaler (20 sources) beta2-Adrenergic Agonist Start: take 1 puff(s) by inhalation every six hours Albuterol Sulfate Active 2 PUFF INHALATION EVERY 6 HOURS January 23, 2023 11:00pm Start: 07-04-2022 take 3 mL by inhalat ion every four hours as needed albuterol sulfate 1.25 mg/3 mL inhalation vial for nebulizer 3 (three) Milliliter q4 hr prn for 0 days Quantity: 1 Kit Refills: 0 Ordered: 04-Jul-2022 Kimberly Jacobson CNP Start : 04-Jul-2022 Active Comments: pradeep vizcaino box Start: 06-30-2022 take 1 mL by inhalat ion every four hours as needed Albuterol Sulfate 1.25 MG/3ML Inhalation Nebulization Solution 1 (one) Milliliter q4 hr prn for 0 days Quantity: 1 {Unspecified} Refills: 0 Ordered: 30-Jun-2022 Pam Escamilla MD Start : 30-Jun-2022 Active Comments: pradeep vizcaino box Start: 2022 take 1 mL by inhalat ion every four hours as needed Albuterol Sulfate 1.25 MG/3ML Inhalation Nebulization Solution 1 (one) Milliliter q4 hr prn for 0 days Quantity: 1 {Unspecified} Refills: 0 Ordered: 10-Jun-2022 Yarelis Fitzpatrick DO, DO, Kathleen Start : 10-Jun-2022 Active Comments: johnathane carrillo box Start: 03-17-2022 End: 08-30-2024 Albuterol Sulfate 90 mcg/act uation HFA aerosol inhaler Discontinued 2 NMA INHALATION EVERY 6 HOURS as needed January 24, 2023 12:00am August 30, 2024 11:43am Start: 02-22-2022 take 1-2 puff(s) by inhalation every six hours as needed ProAir HFA 108 (90 Base) MCG/ACT Inhalation Aerosol Solution 1-2 Puff every 6 hours prn wheeze for 0 days Quantity: 1 {Each} Refills: 0 Ordered: 22-Feb-2022 Pam Escamilla MD Start : 22-Feb-2022 Active Start: 08-25-2019 take 2 puff(s) by in halation every four hours as needed for wheezing albuterol sulfate (PROAIR RESPICLICK) 90 mcg/actuation aepb Indications: Viral bronchitis Inhale 2 Puffs as instructed every 4 hours as needed (wheezing/shortness of breath). 1 Inhaler 08/25/2019 Active Start: 02-04-2013 End: 02-27-2013 PROVENTIL HFA, 108 (90 Base)MCG/ACT (Inhalation Aerosol Solution) 2 (two) Aerosol Soln tid prn for 0 days Quantity: 1 {Aerosol_Soln} Refills: 0 Ordered: 27-Feb-2013 Lizbeth Rothman RN Start : 04-Feb-2013 End : 27-Feb-2013 Inactive Start: 02-04-2013 End: 02-27-2013 PROVENTIL HFA, 108 (90 Base)MCG/ACT (Inhalation Aerosol Solution) 2 (two) Aerosol Soln tid prn for 0 days Quantity: 1 {Aerosol_Soln} Refills: 0 Ordered: 27-Feb-2013 Lizbeth Rothman RN Start : 04-Feb-2013 End : 27-Feb-2013 Inactive Comment on above: Inhale 2 Puffs as in structed every 4 hours as needed (wheezing/shortness of breath). dispnse one box amoxicillin 875 mg / clavulanate 125 mg oral tablet (20 sources) Penicillin-class Antibacterial Start: 10-01-2024 End: 10-21-2024 Amoxicillin-Pot Clavulanate 875-125 mg tablet Discontinued 1 {tbl} PO TWICE A DAY October 01, 2024 1:00am October 21, 2024 10:55am Start: 09-12-2022 End: 09-22-2022 take 1 tablet by mouth twice daily amoxicillin-pot clavulanate 875-125 mg oral tablet 1 (one) Tablet twice daily for 10 days Quantity: 20 {Tablet} Refills: 0 Ordered: 12-Sep-2022 Yarelis Fitzpatrick DO, DO, Kathleen Start : 12-Sep-2022 End : 22-Sep-2022 Inactive Start: 01-22-2021 End: 02-01-2021 take 1 tablet by mouth twice daily Amoxicillin-Pot Clavulanate 875-125 MG Oral Tablet 1 (one) Tablet twice daily for 10 days Quantity: 20 {Tablet} Refills: 0 Ordered: 22-Jan-2021 Yarelis Fitzpatrick DO, DO, Kathleen Start : 22-Jan-2021 End : 01-Feb-2021 Inactive Start: 04-30-2010 End: 06-01-2010 take 1 tablet by mouth twice daily AUGMENTIN, 875-125MG (Oral Tablet) 1 (one) Tablet Twice daily for 0 days Quantity: 28 {Tablet} Refills: 0 Ordered: 01-Jun-2010 Start : 30-Apr-2010 End : 01-Jun-2010 Inactive azelaic acid 0.15 mg/mg topical gel (20 sources) Start: 11-30-2007 End: 08-27-2008 FINACEA, 15% (External Gel) apply Gel Twice daily for 0 days Quantity: 15 {Gel} Refills: 1 Ordered: 30-Nov-2007 Lizbeth Rothman RN Start : 30-Nov-2007 End : 27-Aug-2008 Inactive benzonatate 200 mg oral capsule (20 sources) Non-narcotic Antitussive Start: 10-15-2021 End: 04-26-2022 take 1 capsule by mouth three times daily Benzonatate 200 MG Oral Capsule 1 (one) Capsule tid for 0 days Quantity: 30 {Capsule} Refills: 0 Ordered: 26-Apr-2022 Kiesha Martinez LPN Start : 15-Oct-2021 End : 26-Apr-2022 Inactive budesonide 0.25 mg/ml inhalation suspension (20 sources) Corticosteroid Start: 10-04-2022 take 1 mL by inhalation every twelve hours Pulmicort 0.5 mg/2 mL inhalation Ampul For Nebulization 1 (one) Milliliter q12 hours for 0 days Quantity: 1 {Unspecified} Refills: 1 Ordered: 04-Oct-2022 Yarelis Fitzpatrick DO, DO, Kathleen Start : 04-Oct-2022 Active Comments: substitute generic dispense one box Start: 09-12-2022 take 1 mL by inhalat ion every twelve hours Pulmicort 0.5 mg/2 mL inhalation Ampul For Nebulization 1 (one) Milliliter q12 hours for 0 days Quantity: 1 {Unspecified} Refills: 1 Ordered: 12-Sep-2022 Yarelis Fitzpatrick DO, DO, Kathleen Start : 12-Sep-2022 Active Comments: substitute generic dispense one box Start: 07-22-2022 take 1 mL by inhalat ion twice daily Pulmicort 0.5 mg/2 mL inhalation Ampul For Nebulization 1 (one) Milliliter bid for 0 days Quantity: 1 {Unspecified} Refills: 0 Ordered: 22-Jul-2022 Yarelis Fitzpatrick DO, DO, Kathleen Start : 22-Jul-2022 Active Comments: substitute generic dispense one box Start: 07-05-2022 take 1 mL by inhalat ion twice daily Pulmicort 0.5 MG/2ML Inhalation Suspension 1 (one) Milliliter bid for 0 days Quantity: 1 {Unspecified} Refills: 0 Ordered: 05-Jul-2022 Yarelis Fitzpatrick DO, DO, Kathleen Start : 05-Jul-2022 Active Comments: substitute generic dispense one box Start: 2022 take 1 mL by inhalat ion twice daily Pulmicort 0.5 MG/2ML Inhalation Suspension 1 (one) Milliliter bid for 0 days Quantity: 1 {Unspecified} Refills: 0 Ordered: 10-Jun-2022 Yarelis Fitzpatrick DO, DO, Kathleen Start : 10-Jun-2022 Active Comments: substitute generic dispense one box Comment on above: substitute generic d ispense one box 24 hr clarithromycin 500 mg extended release oral tablet (20 sources) Macrolide Antimicrobial Start: 0 End: 0 take 2 tablets by mouth once daily BIAXIN XL PAC, 500MG (Oral Tablet Extended Release 24 Hour) 2 (two) Tablet ER 24HR daily for 14 days Quantity: 28 {Tablet_ER_24HR} Refills: 0 Ordered: 30-Apr-2010 Chachavíctorabraham Katia Start : 01-Dec-2009 End : 15-Dec-2009 Inactive Start: 12-01-2009 End: 12-15-2009 take 2 tablets by mouth once daily BIAXIN XL PAC, 500MG (Oral Tablet Extended Release 24 Hour) 2 (two) Tablet ER 24HR daily for 14 days Quantity: 28 {Tablet_ER_24HR} Refills: 0 Ordered: 30-Apr-2010 Katia Desai CNP Start : 01-Dec-2009 End : 15-Dec-2009 Inactive codeine phosphate 2 mg/ml / guaiFENesin 20 mg/ml oral solution (20 sources) Opioid Agonist Start: 10-02-2009 GUAIATUSSIN AC , 100-10MG/5ML (Oral Syrup) 1 Teaspoon(s) qhs prn for 0 days Quantity: 6 {Ounce(s)} Refills: 0 Ordered: 30-Apr-2010 Bipin RESTREPOMANUEL Start : 02-Oct-2009 Inactive famotidine 20 mg oral tablet (20 sources) Histamine-2 Receptor Antagonist Start: 09-12-2020 End: 07-02-2021 take 1 tablet by mouth twice daily Pepcid 20 MG Oral Tablet 1 Tablet bid for 0 days Quantity: 120 {Tablet} Refills: 2 Ordered: 02-Jul-2021 Yaa Calderon MA Start : 19-Oct-2020 End : 02-Jul-2021 Inactive Start: 07-13-2020 take 2 tablets by mo ut twice daily Pepcid 20 MG Oral Tablet 2 (two) Tablet bid for 0 days Quantity: 120 {Tablet} Refills: 2 Ordered: 13-Jul-2020 Yarelis Fitzpatrick DO, DO, Kathleen Start : 13-Jul-2020 Active Comments: new dose due to not making 40mg tabs anymore Start: 04-20-2020 take 2 tablets by mo ut twice daily Pepcid 20 MG Oral Tablet 2 (two) Tablet bid for 0 days Quantity: 120 {Tablet} Refills: 2 Ordered: 20-Apr-2020 Yarelis Fitzpatrick DO, DO, Kathleen Start : 20-Apr-2020 Active Comments: new dose due to not making 40mg tabs anymore Start: 03-12-2020 take 2 tablets by mo ut twice daily Pepcid 20 MG Oral Tablet 2 (two) Tablet bid for 0 days Quantity: 120 {Tablet} Refills: 2 Ordered: 12-Mar-2020 Yarelis Fitzpatrick DO, DO, Kathleen Start : 12-Mar-2020 Active Comments: new dose due to not making 40mg tabs anymore Start: 01-10-2020 take 1 tablet by deidre th twice daily Pepcid 40 MG Oral Tablet 1 (one) Tablet bid for 0 days Quantity: 60 {Tablet} Refills: 2 Ordered: 10-Jan-2020 Yarelis Fitzpatrick DO, DO, Kathleen Start : 10-Jan-2020 Active take 1 tablet by deidre th twice daily famotidine (PEPCID ORAL) Take 1 tablet by mouth twice daily. Active take 1 tablet by deidre th twice daily famotidine (PEPCID ORAL) Take 1 tablet by mouth twice daily. 0 Active Comment on above: new dose due to not making 40mg tabs anymore Take 1 tablet by deidre th twice daily. ferrous sulfate 325 mg oral tablet (20 sources) take 1 tablet by mouth twice daily Ferrous Sulfate 325 (65 Fe) MG Oral Tablet bid (325 (65 Fe) MG) Active 24 hr fexofenadine hydrochloride 180 mg / pseudoephedrine hydrochloride 240 mg extended release oral tablet (20 sources) alpha-Adrenergic Agonist, Histamine-1 Receptor Antagonist Start: 01-28-20 09 take 180-240 mg by mouth every twenty-four hours MIRANDA-D 24 HOUR, 180-240MG (Oral Tablet Extended Release 24 Hour) 1 (one) Tablet ER 24HR qd for 0 days Refills: 0 Ordered: 30-Apr-2010 MANUEL Voss LPN Start : 27-Jan-2009 Inactive 12 hr guaiFENesin 600 mg extended release oral tablet (20 sources) Start: 08-27-19 End: 01-01-20 09 MUCINEX, 600MG (Oral Tablet Extended Release 12 Hour) 1 (one) Tablet ER 12HR BID for 0 days Refills: 0 Ordered: 27-Aug-2008 Bethany Desai Start : 27-Aug-2008 End : 31-Dec-2008 Discontinued hydrOXYzine hydrochloride 25 mg oral tablet (20 sources) Antihistamine Start: 10-01-19 End: 10-12-19 21 hydrOXYzine HCl 25 MG Oral Tablet 1 (one) Tablet q6-8hrs prn for 0 days Quantity: 60 {Tablet} Refills: 3 Ordered: 12-Oct-2020 Erasmo Huynh LPN Start : 01-Oct-2020 End : 12-Oct-2020 Inactive Comments: for itching Start: 06-22-2020 hydrOXYzine HC l 25 MG Oral Tablet 1 (one) Tablet q6-8hrs prn for 0 days Quantity: 60 {Tablet} Refills: 2 Ordered: 22-Jun-2020 Amari DO, Yarelis Amari DO, Yarelis Start : 22-Jun-2020 Active Comments: for itching Start: 06-15-2020 hydrOXYzine HC l 25 MG Oral Tablet 1 (one) Tablet q6-8hrs prn for 0 days Quantity: 60 {Tablet} Refills: 2 Ordered: 15-Jun-2020 Amari DO, Yarelis Amari DO Yarelis Start : 15-Jun-2020 Active Comments: for itching Start: 05-14-2020 hydrOXYzine HC l 25 MG Oral Tablet 1 (one) Tablet q6-8hrs prn for 0 days Quantity: 30 {Tablet} Refills: 0 Ordered: 14-May-2020 Amari DO, Yarelis Amari DO Yarelis Start : 14-May-2020 Active Comments: for itching Start: 04-15-2020 hydrOXYzine HC l 25 MG Oral Tablet 1 (one) Tablet q6-8hrs prn for 0 days Quantity: 30 {Tablet} Refills: 0 Ordered: 15-Apr-2020 Amari DO, Yarelis Amari DO, Yarelis Start : 15-Apr-2020 Active Comments: for itching Start: 03-23-2020 hydrOXYzine HC l 25 MG Oral Tablet 1 (one) Tablet q6-8hrs prn for 0 days Quantity: 30 {Tablet} Refills: 0 Ordered: 23-Mar-2020 Amari DO, Yarelis Amari DO, Yarelis Start : 23-Mar-2020 Active Comments: for itching Start: 03-04-2020 hydrOXYzine HC l 25 MG Oral Tablet 1 (one) Tablet q6-8hrs prn for 0 days Quantity: 30 {Tablet} Refills: 0 Ordered: 04-Mar-2020 Katia Desai CNP Start : 04-Mar-2020 Active Comments: for itching Comment on above: for itching ibuprofen 200 mg oral tablet (20 sources) Nonsteroidal Anti-inflammatory Drug End: 010 take 1-2 tablets by mouth once as needed IBUPROFEN 200, 200MG (PO Tab) 1-2 tabs PRN for 0 days Refills: 0 Ordered: 30-Apr-2010 MANUEL Voss LPN End : 30-Apr-2010 Discontinued Comments: This order discontinued per [facility]. Comment on above: This order discontin ued per [facility]. ketorolac tromethamine 10 mg oral tablet (7 sources) Nonsteroidal Anti-inflammatory Drug, Cyclooxygenase Inhibitor Start: 023 End: 023 ketorolac 10 mg oral tablet 1 1/2 (one and a half) tablet q 6hrs for pain x 48 hrs for 2 days Quantity: 6 {Tablet} Refills: 0 Ordered: 08-Nov-2022 Xochilt EVERARDOLyubov Start : 08-Nov-2022 End : 10-Nov-2022 Inactive Comments: patient already had toradol IV at hospital Comment on above: patient already had toradol IV at hospital levalbuterol 0.21 mg/ml inhalation solution (20 sources) beta2-Adrenergic Agonist Start: 025 End: take 0.63 mg by inhalation every twelve hours Levalbuterol Hcl 0.63 mg/3 mL solution for nebulization Discontinued 0.63 mg INHALATION Q12H October 01, 2024 8:56am December 20, 2024 9:29am Start: 08-30-2024 End: 08-30-2024 take 0.63 mg by inhalation once Levalbuterol Hcl 0.63 mg/3 mL solution for nebulization Discontinued 0.63 mg INHALATION ONCE August 30, 2024 1:00am August 30, 2024 1:18pm levoFLOXacin 750 mg oral tablet (20 sources) Quinolone Antimicrobial Start: 10-21-2024 End: 10-31-2024 take 1 tablet by mouth every twenty-four hours Levofloxacin 750 mg tablet Discontinued 750 mg PO Q24H 05 30October 21, 2024 1:00am October 30, 2024 12:00am October 31, 2024 12:13am Start: 08-30-2024 End: 10-21-2024 Levofloxacin 500 mg tablet Discontinued 500 mg PO daily August 30, 2024 11:45am October 21, 2024 10:57am finish out 1st course and then begin this for a total of 14 days Start: 01-23-2023 End: 08-15-2023 take 1 tablet by mouth once daily Levofloxacin 500 mg tablet Discontinued 500 mg PO DAILY January 24, 2023 12:00am August 15, 2023 3:46pm Start: 02-22-2022 End: 10-12-2022 take 1 tablet by mouth once daily Levaquin 750 mg oral tablet 1 (one) Tablet daily for 0 days Quantity: 5 {Tablet} Refills: 0 Ordered: 07-Oct-2022 Amari ROBLEDO Yarelis Fitzpatrick DO Yarelis Start : 22-Feb-2022 End : 07-Oct-2022 Discontinued Comments: Discontinued by Medication vendor. Start: 09-12-2020 End: 02-16-2021 take 1 tablet by mouth once daily levoFLOXacin 750 MG Oral Tablet 1 (one) Tablet daily for 7 days Quantity: 7 {Tablet} Refills: 0 Ordered: 09-Feb-2021 Katia Desai Start : 09-Feb-2021 End : 16-Feb-2021 Inactive Start: 10-02-2009 End: 01-05-2023 take 1 tablet by mouth once daily Levaquin 500 mg oral tablet 1 Tablet daily for 10 days Quantity: 10 {Tablet} Refills: 0 Ordered: 07-Oct-2022 Amari ROBLEDO Yarelis Amari DO Yarelis Start : 15-Oct-2021 End : 07-Oct-2022 Discontinued Comments: Discontinued by Medication vendor. Comment on above: Discontinued by [facility] vendor. ondansetron 4 mg disintegrating oral tablet (10 sources) Serotonin-3 Receptor Antagonist Start: 11-08-19 End: 01-25-20 take 1 tablet by mouth every eight hours as needed for nausea Ondansetron 4 mg tablet,disintegrati ng Discontinued 4 mg PO EVERY 8 HOURS NEEDED as needed for Nausea November 07, 2022 12:00am January 24, 2023 6:46am raNITIdine 150 mg oral tablet (20 sources) Histamine-2 Receptor Antagonist Start: 02-05-20 End: 12-24-19 take 1 tablet by mouth once daily Zantac 150 Maximum Strength 150 MG Oral Tablet 1 Tablet qd for 30 days Refills: 0 Ordered: 24-Dec-2019 MANUEL Voss LPN Start : 04-Feb-2013 End : 24-Dec-2019 Inactive tamsulosin hydrochloride 0.4 mg oral capsule (7 sources) alpha-Adrenergic Gagan Start: 03-21-20 23 Flomax 0.4 mg oral capsule 1 (one) capsule at night for 0 days Quantity: 5 {Capsule} Refills: 0 Ordered: 08-Nov-2022 Kiesha Martinez LPN Start : 08-Nov-2022 Active triamcinolone acetonide 0.055 mg/actuat metered dose nasal spray (20 sources) Corticosteroid Start: 04-30-20 10 End: 02-05-20 13 NASACORT AQ, 55MCG/ACT (Nasal Aerosol Solution) 2 (two) Puff(s) daily for 0 days Quantity: 1 {Aerosol_Soln} Refills: 0 Ordered: 04-Feb-2013 Lizbeth Rothman RN Start : 30-Apr-2010 End : 04-Feb-2013 Inactive Start: 04-30-2010 End: 02-04-2013 NASACORT AQ, 55MCG/ACT (Nasa l Aerosol Solution) 2 (two) Puff(s) daily for 0 days Quantity: 1 {Aerosol_Soln} Refills: 0 Ordered: 04-Feb-2013 Lizbeth Rothman RN Start : 30-Apr-2010 End : 04-Feb-2013 Inactive Problems Active Problems Problem Classification Problem Date Documented Date Episodic/Chronic Abdominal hernia (8 sources) Hiatal hernia; Translations: [Diaphragmatic hernia without obstruction or gangrene] 03-22-2023 Episodic Abdominal pain (8 sources) Flank pain; Translations: [Unspecified abdominal pain] 03-22-2023 Episodic Acute bronchitis (20 sources) Acute bronchitis; Translations: [Bronchitis, acute] Resolved: 02-04-2009 05-26-2015 Episodic Administrative/socia l admission (20 sources) Patient encounter status; Translations: [School physical exam] Resolved: 02-04-2009 07-10-2015 Episodic Allergic reactions (20 sources) Urticaria, unspecified; Translations: [Urticaria] Resolved: 10-15-2021 02-04-2013 Episodic Comment on above: Chronic Asthma (20 sources) Asthmatic bronchitis; Translations: [Asthmatic bronchitis] 02-22-2022 Chronic Comment on above: cxr to decipher b/w bronchitis and pna. Calculus of urinary tract (20 sources) Renal colic; Translations: [Unspecified renal colic] 11-07-2022 Episodic Cardiac dysrhythmias (3 sources) ECG: sinus tachycardia; Translations: [Tachycardia, unspecified] 12-08-2024 Episodic Chronic obstructive pulmonary disease and bronchiectasis (20 sources) Bronchiectasis; Translations: [Bronchiectasis, uncomplicated] Onset: 01-14-2025 01-24-2023 Chronic Chronic obstructive pulmonary disease and bronchiectasis (20 sources) Bronchitis; Translations: [Bronchitis] Resolved: 02-04-2013 05-26-2015 Episodic Chronic obstructive pulmonary disease and bronchiectasis (20 sources) Chronic obstructive pulmonary disease and bronchiectasis Coagulation and hemorrhagic disorders (20 sources) Platelet count below reference range; Translations: [Thrombocytopenia] 01-22-2021 Chronic Deficiency and other anemia (20 sources) Iron deficiency anemia; Translations: [Iron deficiency anemia] 01-10-2020 Episodic Comment on above: must likely due to h eavy menses now not frequent. not has scope and no fmx of GI cancer. will do stool cards. check celiacs. no signs and symptoms of gluten allergies. Deficiency and other anemia (20 sources) Anemia; Translations: [Anemia] 01-10-2020 Episodic Deficiency and other anemia (20 sources) Deficiency and other anemia Diseases of white blood cells (1 source) Elevated white blood cell count, unspecified; Translations: [Elevated white blood cell count, unspecified] Onset: 09-26-2024 Chronic Fever of unknown origin (20 sources) Fever with chills; Translations: [Fever and chills] Resolved: 01-22-2021 01-10-2020 Episodic Immunity disorders (20 sources) Immunodeficiency disorder; Translations: [Immunodeficiency] Onset: 07-07-2023 01-10-2020 Chronic Comment on above: romeo Tarango 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 will gwork up again and CT chest discussed with Emelina h/o humoral immune d efic -- saw dr daniels -- see records with w/u 2019-- what came of it seems unclear? has appt with dr ruggiero te Immunizations and screening for infectious disease (20 sources) Contact with and (suspected) exposure to other viral communicable diseases; Translations: [Exposure to SARS virus] Onset: 02-09-2023 01-10-2020 Episodic Inflammation; infection of eye (except that caused by tuberculosis or sexually transmitteddisease) (20 sources) Conjunctivitis; Translations: [Conjunctivitis] Resolved: 10-15-2021 01-22-2021 Episodic Menstrual disorders (20 sources) Disorder of menstruation; Translations: [Abnormal menses] 01-10-2020 Chronic Comment on above: skkpping the heavy. Neoplasms of unspecified nature or uncertain behavior (14 sources) Thrombocytosis; Translations: [Thrombocytosis] 10-12-2020 Chronic Neoplasms of unspecified nature or uncertain behavior (20 sources) Thrombocytosis; Translations: [Neoplasm of uncertain behavior of skin] Resolved: 02-04-2009 07-06-2015 Episodic Comment on above: suspicious for basal cell vs plain telectasia Nutritional deficiencies (6 sources) Cobalamin deficiency; Translations: [Vitamin B12 deficiency] 12-30-2022 Episodic Comment on above: start orals and can come in once a month injection to get boosted Other circulatory disease (20 sources) Abnormal chest sounds; Translations: [Abnormal lung sounds] Resolved: 10-14-2022 01-10-2020 Episodic Other circulatory disease (3 sources) Elevated blood-pressure reading without diagnosis of hypertension; Translations: [Elevated blood-pressure reading, without diagnosis of hypertension] 12-08-2024 Episodic Other connective tissue disease (20 sources) Imaging of thorax abnormal; Translations: [Abnormal chest CT] 01-10-2020 Episodic Comment on above: she had noduel and a bnormal of RULlobe in 2012 seen valentina now see again but has progressed. she has had signs and symptoms with fever and chils and fatigue they treatedher like pneeumonia in ER repeat CT scan similar appearance of CT saw emelina put on breathing treatments every am when start cough script for atb to take right away if increase signs and symptoms. follow up in three months (approximately) with him abn ct chest Other infections; including parasitic (20 sources) Disorder due to infection; Translations: [Recurrent infections] Onset: 02-09-2023 12-16-2022 Episodic Other infections; including parasitic (2 sources) Recurrent infectious disease; Translations: [Unspecified infectious disease] Onset: 02-09-2023 2024 Episodic Other infections; including parasitic (1 source) Unspecified infectious disease; Translations: [Unspecified infectious disease] Onset: 12-25-2024 Episodic Other inflammatory condition of skin (20 sources) Rosacea; Translations: [Rosacea] 01-10-2020 Chronic Other inflammatory condition of skin (20 sources) Itching ; Translations: [Itch] Resolved: 09-14-2020 01-10-2020 Episodic Other inflammatory condition of skin (20 sources) Prurigo simplex ; 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] 02-28-2020 Episodic Other lower respiratory disease (20 sources) Wheezing; Translations: [Wheezing] Resolved: 02-04-2013 07-14-2015 Episodic Other lower respiratory disease (20 sources) Cough; Translations: [Cough] Resolved: 09-12-2022 02-04-2013 Episodic Other lower respiratory disease (20 sources) Dyspnea; Translations: [SOB (shortness of breath)] Resolved: 09-12-2022 10-12-2020 Episodic Other lower respiratory disease (1 source) Lower respiratory tract infection; Translations: [Unspecified acute lower respiratory infection] Episodic Other lower respiratory disease (1 source) H/O: asthma; Translations: [Personal history of other diseases of the respiratory system] Episodic Other lower respiratory disease (12 sources) Persistent cough; Translations: [Persistent cough] Resolved: 12-30-2022 12-16-2022 Episodic Other lower respiratory disease (16 sources) Lung mass; Translations: [Other nonspecific abnormal finding of lung field] 08-30-2024 Episodic Other lower respiratory disease (5 sources) Pleuritic pain; Translations: [Pleurodynia] 11-06-2024 Episodic Other lower respiratory disease (1 source) Other nonspecific abnormal finding of lung field; Translations: [Other nonspecific abnormal finding of lung field] Onset: 10-28-2024 Episodic Other nervous system disorders (20 sources) Paresthesia; Translations: [Paresthesia] Resolved: 09-12-2022 01-10-2020 Episodic Comment on above: Rt arm paresthesia o r pain noted with pneumonia now and as in past had pneumonia 16 yrs ago had transfer to [facility], had lung tapped by Emelina which relieved shoulder pain. Now mild Other screening for suspected conditions (not mental disorders or infectious disease) (20 sources) CT of chest abnormal; Translations: [Abnormal chest CT] 10-12-2020 Chronic Comment on above: she had noduel and a bnormal of RULlobe in 2012 seen valentina now see again but has progressed. she has had signs and symptoms with fever and chils and fatigue they treatedher like pneeumonia in ER repeat CT scan similar appearance of CT saw emelina put on breathing treatments every am when start cough script for atb to take right away if increase signs and symptoms. follow up in three months (approximately) with him abn ct chest encouraged pt to ret urn for regular f/u to Dr. Tarango's office, she thinks it has been well over a year since seen. was to follow up w/pulm but did not go-she will need f/w with the lung nodulesnodule RUL lobe 2013, saw S[facility] but then progressed. s/s with fever and chills and fatigue they treated her like pneumonia in ER repeat CT scan similar appearance of CT saw emelina put on breathing treatments, had script for atb to take right away if increase signs and symptoms. nodule RUL lobe 2013 , saw Siblia but then progressed. s/s with fever and chills and fatigue they treated her like pneumonia in ER repeat CT scan similar appearance of CT saw emelina put on breathing treatments, had script for atb to take right away if increase signs and symptoms. Other screening for suspected conditions (not mental disorders or infectious disease) (14 sources) Platelet count below reference range; Translations: [Thrombocytopenia] 01-10-2020 Episodic Other upper respiratory disease (20 sources) Allergic rhinitis; Translations: [Allergic rhinitis] Resolved: 02-04-2009 02-04-2013 Chronic Other upper respiratory disease (4 sources) Pain in throat Episodic Other upper respiratory disease (3 sources) Acute bronchospasm; Translations: [Acute bronchospasm] 12-08-2024 Episodic Other upper respiratory infections (20 sources) Sinusitis; Translations: [Sinusitis] 01-22-2021 Chronic Other upper respiratory infections (20 sources) Acute sinusitis; Translations: [Acute sinusitis] Resolved: 02-04-2009 02-04-2009 Episodic Otitis media and related conditions (20 sources) Dysfunction of eustachian tube; Translations: [Eustachian tube dysfunction] Resolved: 09-12-2022 05-26-2015 Episodic Pneumonia (except that caused by tuberculosis or sexually transmitted disease) (20 sources) Unspecified bacterial pneumonia; Translations: [Infective pneumonia] Onset: 12-11-2024 Resolved: 12-30-2022 01-10-2020 Episodic Comment on above: Rt upper lobe improved after 5 day s pneumonia, rt upper still with some rt shoulder pain mild RUL Residual codes; unclassified (20 sources) FH: Diabetes mellitus; Translations: [Family history of diabetes mellitus] 01-10-2020 Episodic Residual codes; unclassified (14 sources) H/O: section; Translations: [ Section] 01-10-2020 Episodic Comment on above: Residual codes; unclassified (20 sources) Family history of diabetes mellitus Episodic Residual codes; unclassified (20 sources) Body mass index 20-24 - normal; Translations: [BMI 20.0-20.9, adult] 10-12-2020 Episodic Residual codes; unclassified (20 sources) Non-smoker; Translations: [Nonsmoker] 01-22-2021 Episodic Unclassified (20 sources) Unclassified (20 sources) Body mass index 20-24 - normal; Translations: [BMI 20.0-20.9, adult] 01-10-2020 Unclassified (20 sources) Lesion-Unknown behavior (238.2) Unclassified (20 sources) WHEEZING, NOS (786.09) Unclassified (20 sources) Non-smoker; Translations: [Nonsmoker] 01-10-2020 Unclassified (20 sources) Eustachian tube dysfunction (381.81) Unclassified (20 sources) Chronic papular urticaria Unclassified (20 sources) Hives Unclassified (20 sources) Itch Unclassified (15 sources) Abnormal findings on diagnostic imaging of other specified body structures; Translations: [Abnormal chest CT] 10-12-2020 Comment on above: she had noduel and a bnormal of RULlobe in 2012 seen valentina now see again but has progressed. she has had signs and symptoms with fever and chils and fatigue they treatedher like pneeumonia in ER repeat CT scan similar appearance of CT saw emelina put on breathing treatments every am when start cough script for atb to take right away if increase signs and symptoms. follow up in three months (approximately) with him Unclassified (6 sources) Abnormal menses Unclassified (20 sources) BRONCHITIS, NOT SPECIFIED ACUTE OR CHRONIC (490.) Unclassified (5 sources) for infectious disease Unclassified (1 source) Cough, unspecified; Translations: [Cough, unspecified] Onset: 11-01-2024 Past or Other Problems Problem Classification Problem Date Documented Date Episodic/Chronic Pneumonia (except that caused by tuberculosis or sexually transmitted disease) (20 sources) Pneumonia (except that caused by tuberculosis or sexually transmitted disease) Unclassified (20 sources) Abnormal Lung Sounds/Rales (786.7) Unclassified (20 sources) SCHOOL PHYSICAL (V70.5) Unclassified (20 sources) Deliveries (Parity); Translations: [Deliveries (Parity)] 01-10-2020 Comment on above: 2 Unclassified (20 sources) Exposure to SARS virus Unclassified (20 sources) Leap sx 01-10-2020 Comment on above: 2004 Unclassified (20 sources) Pregnancies (); Translations: [Pregnancies ()] 01-10-2020 Comment on above: 2 Unclassified (20 sources) Abnormal Chest X-Ray (793.99) Unclassified (14 sources) Patient encounter status; Translations: [School physical exam] Resolved: 02-04-2009 07-10-2015 Unclassified (20 sources) Immunodeficiency Unclassified (20 sources) BMI 21.0-21.9, adult Unclassified (6 sources) Bronchitis,Acute (466.0) Unclassified (3 sources) Thrombocytopenia Unclassified (20 sources) Unspecified Diagnosis 04-28-2022 Results Test Name Value Interpretation Reference Range Facility Respiratory Cultureon 2024 RESP Copy of report sent to Infection Control Printer [id number] 01/15/25 0845 DAVID. Microorganism Spec Cult #2 Ampicillin can be used for Beta-Lactamase negative isolates. Microorganism Spec Cult Trimeth/Sulfa, Chloramphenicol, Cefotaxime, Ciprofloxacin, Amoxicillin/Clavulanic Acid, and Oral 2nd/3rd Generation Cephalosporins are effective against both Beta-Lactamase positive and Beta-Lactamase negative isolates. Microorganism Spec Cult Microorganism Spec Cult Streptococcus pneumoniae Amount Growth 2+ Haemophilus influenzae Amount Growth 2+ Beta Lactamase-Reportable Positive Streptococcus pneumoniae: REACTION Cefotaxime Islt CELENA 0.5 S Cefotaxime Islt CELENA 0.5 S cefTRIAXone Islt CELENA 0.5 S cefTRIAXone Islt CELENA 0.5 S Clindamycin Islt CELENA <=0.25 S Erythromycin Islt CELENA >=8 R levoFLOXacin Islt CELENA 0.5 S Moxifloxacin Islt CELENA 0.12 S TMP SMX Islt CELENA <=10 S Vancomycin Islt CELENA 0.5 S Penicillin Islt CELENA 1 R Penicillin Islt CELENA 1 S Penicillin Islt CELENA 1 I Normal [facility] Comment on above: Performed By: #### M 100.2400, M100.1999 #### [facility] [address] [place], [place], [address] Gram Stainon 01-11-2025 GS Acceptable Specimen? Yes (<25 Epithelial cells per/lpf) Gram Stain 2+ Gram negative rods 1+ Gram positive rods 2+ Gram positive cocci 1+ White Blood Cells Rare Epithelial cells Normal [facility] Comment on above: Performed By: #### M 100.2400, M100.1999 #### [facility] [address] [place], [place], [id number] Gram stainOrdered By: NAREN Del Real on 01-11-2025 Microscopic observation Gram stain Nom (Unsp spec) [facility] Immunoglobulin Dilip IMMUNOGLOB G QN 936 mg/dL Normal [id number] [facility] Comment on above: Result Comment: Perf ormed at: [facility] [address], [place] [id number] Oil Dispenser: Ramsey Oleary PhD, Phone: [phone] Performed By: #### L 8530.1300 #### [facility] [address] [place], [place], [id number] Serum or plasma IgG measurem ent (mass/volume)on 12-21-2024 IgG [Mass/Vol] 936 mg/dL [phone] [facility] Comment on above: Performed at: [facility] [id number] [place], [place] [id number] Director: Ramsey Oleary PhD, Phone: [phone] Progress Noteon 12-09-2024 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 female who presents to our office today for a follow up visit. She was last seen on 06/10/24 and before this on 12/18/23 and before this on 07/07/23 and she was seen initially on 02/09/23 for evaluation secondary to concerns from her PCP Dr. Yarelis Fitzpatrick (see referral in [facility]). Ofe used to be followed by Dr. Tarango (Anesthesiology Physician Assistant) for lung nodules and she had been on Pulmicort 0.5mg/2ml twice a day. She also has a previous history of some degree of urticaria and I may have seen her for this several years ago in my old office and she goes years without them and she last had hives in 2019 and these resolved on their own and reportedly the evaluation I did was unremarkable. Due to cough and other issues, laboratory [...] have shown possible bronchiectasis and per Dr. Fitzpatrick she was to see Dr. Meeks (Anesthesiology Physician Assistant in [place]) and she had done this once and she then presented for evaluation 02/09/23. -In the past she was prescribed recurrent courses of antibiotics and after she is off antibiotics she would have a recurrence of issues and she has a history of bronchitis for a couple of times a year for several years but since August 2022 she had increased cough. Pulmicort had been used as needed and albuterol is used as needed and she had not seen Dr. Tarango since 2017. In the past, she was given Prednisone at times for respiratory type symptoms and this was tolerated. -Due to her seeing a Anesthesiology Physician Assistant (Dr. Meeks), I held off on spirometry at her initial visit and food and environmental allergen testing did not appear to be indicated and this was discussed with her. 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 I did have her take Medrol and Azithromycin after her initial visit and then Doxycycline in February 2023 and then she did not need anything until the end of May 2023 and I sent in a Zpack at that time (3 months without antibiotics). I had also suggested Azelastine nasal spray and if the hives returned Cetirizine and Miranda be taken. - I also gave her Doxycycline in the summer of 2022 and she says this did not make her feel good. Azelastine was helpful and tolerated and now she prefers to use this as needed and overall 07/07/23, she felt quite improved and she does realize the high cost of her Hizentra therapy. Then on 12/18/23, since the last visit due to insurance cost issues, she went off Hizentra for a period of time and had increased issues and I sent in a course of Ceftin 11/17/23 and this was helpful and her IgG level was 1030 on 07/07/23. She says her spirometry with her Anesthesiology Physician Assistant was normal and she did not have a bronchodilator response and no inhaler was prescribed and she was given an incentive spirometer at home. She was off infusions for 4 weeks and on 12/18/23, she had been back on for 4 weeks and she slowly improved and I suggested using Azelastine. On 12/18/23, I prescribed Medrol Dosepak and she had been off Pulmicort/Budesondie and Albuterol at that time On 05/13/24, I prescribed Ceftin 500mg for 10 day and on 06/10/24, she presented for a follow up visit and was not using Budesonide and the Medrol was helpful after her 12/18/23 visit and she does not have a Zpack at home. On 06/10/24, her IgG was 1017. *I then received a phone call from her Anesthesiology Physician Assistant's office and see 11/01/24. Received a call from Patience Del Real [facility] Pulmonology [facility] (phone # [phone] and #[phone]). She wanted to discuss Ofe who was found to have a mass in her chest/lung and a PET scan was also done and Ofe has bronchiectasis and grew Strep Pneumoniae in sputum. Ofe has been prescribed a couple of courses of antibiotics this winter and still seems to be having some Pulmonary Respiratory issues and Patience wanted to discuss her with me. Apparently a recent NiOx was okay and spirometry is to be done in the near future. Also, they are going to put Ofe on a Pulmonary regimen including a vest and other measures for the Bronchiectasis and will refer her to Infectious Disease for an evaluation due to the bronchiectasis. Pulmonology wi (more content not included)... Normal [facility] Absolute lymphocyte countOrd ered By: Mikekylie Mai on 12-08-2024 Lymphocytes Auto (Unsp spec) [#/Vol] 3.83 10*3/uL 0.83-4.51 [facility] Absolute neutrophil countOrd ered By: [facility] on 12-08-2024 Neutrophils (Bld) [#/Vol] 12.3 10*3/uL High 2.0-7.7 [facility] Anion gap in Serum or Plasma Ordered By: Mike Mai on 12-08-2024 Anion gap [Moles/Vol] 12 mmol/L - [facility] Automated lymphocyte count a s percentage of total leukocytesOrdered By: [facility] on 12-08-2024 Lymphocytes/100 WBC Auto (Unsp spec) 21.5 % - [facility] BUN/creatinine ratioOrdered By: [facility] on 12-08-2024 Urea nitrogen/Creatinine [Mass ratio] 14.0 mg/mg - [facility] Basophil percentageOrdered B y: Mikekylie Mai on 12-08-2024 Basophils/100 WBC (Bld) 0.4 % 0-1 [facility] Bilirubin, totalOrdered By: [facility] on 12-08-2024 Bilirubin [Mass/Vol] 0.29 mg/dL 0.00-1.30 [facility] CBC W/Diff, Automatedon 11-20 Absolute Lymph 3.83 X10 3/uL Normal 0.83-4.51 [facility] Comment on above: Performed By: #### M 100.2400, M100.1999 #### [facility] Laboratory [address] [place], [address] Absolute Neut 12.3 X10 3/uL High 2.0-7.7 [facility] Comment on above: Performed By: #### M 100.2400, #### [facility] [address] [place], [address] Basophils/100 WBC (Bld) 0.4 % Normal 0-1 [facility] Comment on above: Performed By: #### M 100.2400, #### [facility] [address] [place], [address] Eosinophils/100 WBC (Bld) 0.7 % Normal 0-5 [facility] Comment on above: Performed By: #### M 100.2400, #### [facility] [address] [place], [address] Erythrocyte distribution width (RBC) [Ratio] 15.3 % High 11.6-14.6 [facility] Comment on above: Performed By: #### M 100.2400, #### [facility] [address] [place], [address] Hematocrit (Bld) [Volume fraction] 39.6 % Normal 37-47 [facility] Comment on above: Performed By: #### M 100.2400, #### [facility] [address] [place], [address] Hemoglobin (Bld) [Mass/Vol] 13.4 g/dL Normal 12.0-15.0 [facility] Comment on above: Performed By: #### M 100.2400, #### [facility] [address] [place], [address] IG% 0.500 Normal 0.0-0.9 [facility] Comment on above: Result Comment: IG% - Immature Granulocytes (promyelocytes, myelocytes and metamyelocytes) > 1% indicates that a LEFT SHIFT is Present. Performed By: #### M 100.2400, .1999 #### [facility] [address] [place], [address] Lymphocytes/100 WBC (Bld) 21.5 % Normal 19-41 [facility] Comment on above: Performed By: #### M 100.2400, #### [facility] [address] [place], [address] MCH (RBC) [Entitic mass] 27.3 pg Normal 27.0-32.0 [facility] Comment on above: Performed By: #### M 100.2400, #### [facility] [address] [place], [address] MCHC (RBC) [Mass/Vol] 33.8 g/dL Normal 32-36 [facility] Comment on above: Performed By: #### M 100.2400, #### [facility] [address] [place], [address] MCV (RBC) [Entitic vol] 80.8 fL Low 81-99 [facility] Comment on above: Performed By: #### M 100.2400, #### [facility] [address] [place], [address] Monocytes/100 WBC (Bld) 7.8 % Normal 0-10 [facility] Comment on above: Performed By: #### M 100.2400, #### [facility] [address] [place], [address] Neutrophils/100 WBC (Bld) 69.1 % Normal 47-70 [facility] Comment on above: Performed By: #### M 100.2400, #### [facility] [address] [place], [address] Nucleated RBC (Bld) [#/Vol] 0 10*3/uL Normal 0-5 [facility] Comment on above: Performed By: #### M 100.240, #### [facility] [address] [place], [address] Platelet mean volume (Bld) [Entitic vol] 9.6 fL Normal 6.2-12.0 [facility] Comment on above: Performed By: #### M 100.240, #### [facility] [address] [place], [address] Platelets (Bld) [#/Vol] 435 10*3/uL Normal 150-450 [facility] Comment on above: Performed By: #### M 100240, #### [facility] [address] [place], [address] RBC (Bld) [#/Vol] 4.90 10*6/uL Normal 4.2-5.4 [facility] Comment on above: Performed By: #### M 100.240, #### [facility] [address] [place], [address] RDW SD 45.0 fl High 35.1-43.9 [facility] Comment on above: Performed By: #### M 100.240, #### [facility] [address] [place], [address] WBC (Bld) [#/Vol] 17.8 10*3/uL High 4.4-11.0 [facility] Comment on above: Performed By: #### M 100.240, #### [facility] [address] [place], [address] Carbon dioxide, total [Moles /volume] in Central venous bloodOrdered By: Mike Mai on 12-08-2024 CO2 [Moles/Vol] 25.5 mmol/L 21.0-32.0 [facility] Chest PA and Lateralon 12-08 Chest PA and Lateral [facility] Imaging Services [address] [place], [place] [address] Chest PA and Lateral MR#: [id number] Acct: [id number] Name: OFE GIMENEZ Rep #: [id number] : 1975 F 49 From: Santos Arana i, MD PCP: Dr. Yarelis Fitzpatrick DO Status: PRE ER Study: Chest PA and Lateral Date of Exam: 12/08/24 Exam# [id number] Ordering Dr: Mike Mai MD PROCEDURE: CHEST PA AND LATERAL 12/08/2024 REASON FOR EXAM: PRODUCTIVE COUGH, WHEEZING, EGOPHONYRLL TECHNIQUE: Frontal and lateral views of the chest. COMPARISON: Chest x-ray dated 08/27/2024. FINDINGS: The cardiac silhouette is within normal limits. The lungs are hyperlucent and hyperexpanded due to COPD type changes. No focal consolidation is seen within the lungs. No pneumothorax. Areas of scarring seen within the upper lung zones. RAD/Chest PA and Lateral IMPRESSION: COPD type changes. No change since prior examination. No new infiltrate or consolidation is seen. Reading Location: [id number] CC: Dr. Yarelis Fitzpatrick DO; Dr. Mike Mai MD Doubler Helper: Signed Normal [facility] Chloride assayOrdered By: Magy Mai on 12-08-2024 Chloride [Moles/Vol] 102 mmol/L 98-108 [facility] Comprehensive Metabolic Prof ilon 12-08-2024 Albumin [Mass/Vol] 4.3 g/dL Normal 3.5-5.0 [facility] Comment on above: Performed By: #### M 100.2400, M100.1999 #### [facility] [address] [place], [place], [id number] Albumin/Globulin [Mass ratio] 1.5 {ratio} Normal 0.9-2.4 [facility] Comment on above: Performed By: #### M 100.240, #### [facility] [address] [place], [address] ALK PHOS 145 U/L High 35-104 [facility] Comment on above: Performed By: #### M 100.240, #### [facility] [address] [place], [address] ALT [Catalytic activity/Vol] 29 U/L Normal <=34 [facility] Comment on above: Performed By: #### M 100.240, #### [facility] [address] [place], [address] AST [Catalytic activity/Vol] 30 U/L Normal <=31 [facility] Comment on above: Performed By: #### M .2399, #### [facility] [address] [place], [address] Bilirubin [Mass/Vol] 0.29 mg/dL Normal 0.00-1.30 [facility] Comment on above: Performed By: #### M 100.240, #### [facility] [address] [place], [address] BUN/CRE 14.0 RATIO Normal 10-20 [facility] Comment on above: Performed By: #### M 100.240, #### [facility] [address] [place], [address] Calcium [Mass/Vol] 9.3 mg/dL Normal 7.6-11.0 [facility] Comment on above: Performed By: #### M 100.240, #### [facility] [address] [place], [address] Chloride [Moles/Vol] 102 mmol/L Normal 98-108 [facility] Comment on above: Performed By: #### M 100.2400, #### [facility] [address] [place], [address] CO2 [Moles/Vol] 25.5 mmol/L Normal 21.0-32.0 [facility] Comment on above: Performed By: #### M 100.240, #### [facility] [address] [place], [address] Creatinine [Mass/Vol] 0.65 mg/dL Low 0.70-1.20 [facility] Comment on above: Performed By: #### M 100.240, #### [facility] [address] [place], [address] ECRCL 95.86 ml/min Normal 50-250 [facility] Comment on above: Performed By: #### M 100.240, #### [facility] [address] [place], [address] GAP 12 Normal 5-15 [facility] Comment on above: Performed By: #### M 100.240, #### [facility] [address] [place], [address] GFR/1.73 sq M.predicted among non-blacks MDRD (S/P/Bld) [Vol rate/Area] 107 mL/min/{1.73_m2} Normal >60 [facility] Comment on above: Result Comment: mL/m in/1.73m2 CKD-EPI Creatinine Equation (2020) Performed By: #### M 100.240, #### [facility] [address] [place], [address] Globulin (S) [Mass/Vol] 2.9 g/dL Normal 2.2-4.2 [facility] Comment on above: Performed By: #### M 100.2400, M1 #### [facility] [address] [place], [address] Glucose [Mass/Vol] 113 mg/dL High 70-99 [facility] Comment on above: Performed By: #### M 100.2400, #### [facility] [address] [place], [address] Potassium [Moles/Vol] 4.2 mmol/L Normal 3.3-5.1 [facility] Comment on above: Performed By: #### M 100.2400, #### [facility] [address] [place], [address] Sodium [Moles/Vol] 140 mmol/L Normal 133-145 [facility] Comment on above: Performed By: #### M 100.2400, #### [facility] [address] [place], [address] T PROT 7.2 g/dL Normal 5.9-8.4 [facility] Comment on above: Performed By: #### M 100.2400, #### [facility] [address] [place], [address] Urea nitrogen [Mass/Vol] 9 mg/dL Normal 4-19 [facility] Comment on above: Performed By: #### M 100.2400, #### [facility] [address] [place], [address] Emergency Department Summary on 12-08-2024 Emergency Department Summary [facility] Medical Records Department [address] [place] [address] Emergency Department Summary 12/08/24 MR#: [id number] Acct: [id number] Name: OFE GIMENEZ Rep #: [id number] : 1975 49 From: Mike Mai MD PCP: Dr. Yarelis Fitzpatrick, DO Status:REG ER Location: ED HPI History of Present Illness Chief Complaint: Chest Other Detail of Chief Complaint: Productive cough, wheezing complicated by history of immune globulin defici Informant: patient Onset/Context/Timing Onset: Weeks Context: Sudden Onset Timing: Continuous and Waxes and wanes Quality: Upper respiratory symptoms with productive cough of colored sputum Location: Respiratory Current Severity: Mild Maximum Severity: Moderate Worsened by: Nothing specific Relieved by: Nothing Associated Symptoms Associated Symptoms: Subjective fever with chills Narrative Narrative: Patient is a 49-year-old woman. She has history of IgG immunodeficiency followed by Dr. Vazquez at [facility]. She was prescribed azithromycin. Her fifth dose will be this evening. She states she has had no improvement. She was recently seen by pulmonary. She had a PET scan and subsequent CAT scan. There is a spiculated right upper lobe 2.6 cm mass that was suspicious for malignancy. After reviewing PET scan, taking into consideration her history and consultation with several physicians it was determined this most likely represents scar tissue. Patient states she normally does not have runny nose or congestion when she gets pneumonia. Based on office note by nurse practitioner from pulmonary department patient had obstructive pneumonia recently. She denies history of VTE. She has no risk factors for VTE. She denies leg pain, swelling or discoloration. Patient states there is no one ill at home. She is never smoked. She denies headache, visual, ocular or auditory symptoms. She denies GI symptoms. She has been using her inhaler more frequently with improvement. 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 Bronchiectasis Immune deficiency disorder Home Medications ???Medication ???Instructions ???Recorded ???Last Taken ???Type PEP device #1 ea 08/15/23 Unknown Rx immun glob G 4 gram/20 mL (20 8 mg subcut QWEEK 08/30/24 Unknown History %)-prol-IgA 0-50 mcg/mL subcutaneous syr (Hizentra) nebulizer kits #1 ea 08/30/24 Unknown Rx levalbuterol HCl 0.63 mg/3 mL 0.63 mg (3 mL) inhalation Q12H #90 10/01/24 Unknown Rx solution for nebulization mL azithromycin 250 mg tablet 250 mg PO DAILY #4 TABLETS 5 Unknown Rx cefdinir 300 mg capsule 300 mg PO BID #14 caps 11/06/24 Un known Rx doxycycline monohydrate 100 mg 100 mg PO BID #14 CAPSULES 5 Unknown Rx capsule prednisone 20 mg tablet 60 mg (3 x 20 mg) PO DAILY #15 Unknown Rx TABLETS Allergy/AdvReac Type Severity Reaction Status Date / Time No Known Allergies Allergy Verified 12/08/24 06:51 Surgical History Hx of section Social History household members: spouse Smoking Status: Never smoker substance use type: does not use ROS ROS ED Constitutional Constitutional ED: Reports chills, fever(s), subjective and sweats; Denies weight loss Eyes Eyes: Denies blurry vision or change in vision ENT ENT ED: Reports rhinorrhea; Denies ear pain or sore throat Cardiovascular Cardiovascular: Denies chest pain, orthopnea, palpitations or paroxysmal nocturnal dyspnea Respiratory/Chest Respiratory/Chest: Reports cough, dyspnea, dyspnea on exertion and sputum; Denies orthopnea or paroxysmal nocturnal dyspnea Gastrointestinal Gastrointestinal: Denies abdominal pain, nausea or vomiting Genitourinary Genitourinary ED: Denies dysuria, hematuria or urinary frequency Musculoskeletal Musculoskeletal: Denies arthralgias or myalgias Integumentary Denies rash Neurologic Neurologic: Reports weakness Endocrine Endocrinology: Denies cold intolerance or heat intolerance Hematologic/Lymphatic Hematologic/Lymphatic: Reports systems reviewed and no addt'l complaints, except as documented Allergic/Immunologic Allergic/Immunologic ED: Denies mouth swelling EXAM Physical Exam Const Vital Signs: 12/08/24 06:50 12/08/24 06:54 12/08/24 07:10 Temperature 98.2 F 98.2 F Temperature Source Oral Oral Pulse Rate 108 H 108 H 108 H Respiratory Rate 20 H 20 H 22 H Respiratory Pattern Tachypnea Blood Pressure 182/99 H 165/83 H Blood Pressure Mean 126 110 Pulse Ox 97 97 Oxygen Delivery Method R (more content not included)... Normal [facility] Eosinophil percentageOrdered By: Mike Mai on 12-08-2024 Eosinophils/100 WBC (Bld) 0.7 % 0-5 [facility] Erythrocyte distribution wid th (RBC) [Ratio]Ordered By: Mike Mai on 12-08-2024 Erythrocyte distribution width (RBC) [Entitic vol] 45.0 fL High 35.1-43.9 [facility] Erythrocyte distribution wid th ratioOrdered By: Mike Mai on 12-08-2024 Erythrocyte distribution width (RBC) [Ratio] 15.3 % High 11.6-14.6 [facility] Erythrocyte distribution wid th standard deviationOrdered By: Mike Mai on 12-08-2024 Erythrocyte distribution width (RBC) [Ratio] 45.0 fl High 35.1-43.9 [facility] Estimation of creatinine boby aranceOrdered By: Mike Mai on 12-08-2024 Estimated Creatinine Clearance Calc 95.86 ml/min 50-250 [facility] GFR/1.73 sq M.predicted juan carlos g non-blacks MDRD (S/P/Bld) [Vol rate/Area]Ordered By: Mike Mai on 12-08-2024 Estimated GFR (MDRD) Non-Af Amer 107 >60 [facility] Comment on above: mL/min/1.73m2 CKD-EP I Creatinine Equation (2020) Glomerular filtration rate ( GFR) estimation/1.73 sq m using serum, plasma, or whole bOrdered By: Mike Mai on 12-08-2024 GFR/1.73 sq M.predicted among non-blacks MDRD (S/P/Bld) [Vol rate/Area] 107 mL/min/{1.73_m2} >60 [facility] Comment on above: mL/min/1.73m2 CKD-EP I Creatinine Equation (2020) Hematocrit Auto (Bld) [Volum e fraction]Ordered By: Mike Mai on 12-08-2024 Hematocrit (Bld) [Volume fraction] 39.6 % 37-47 [facility] Hemoglobin measurementOrdere d By: Mike Mai on 12-08-2024 Hemoglobin (Bld) [Mass/Vol] 13.4 g/dL 12.0-15.0 [facility] Immature granulocytes/100 WB C Auto (Bld)Ordered By: Mike Mai on 12-08-2024 Immature granulocytes/100 WBC (Bld) 0.500 % 0.0-0.9 [facility] Comment on above: IG% - Immature Granu locytes (promyelocytes, myelocytes and metamyelocytes) > 1% indicates that a LEFT SHIFT is Present. Influenza virus A and B and SARS-CoV-2 (COVID-19) and Respiratory syncytial virus RNAOrdered By: Mike Mai on 12-08-2024 SARS-CoV-2 (COVID-19) RNA MICHELLE+probe Ql (Unsp spec) [facility] Laboratory - Chemistry and C hemistry - challengeOrdered By: Mikekylie Mai on 12-08-2024 AST [Catalytic activity/Vol] 30 U/L <32 [facility] Lactic Acidon 12-08-2024 Lactate [Moles/Vol] 1.3 mmol/L Normal 0.0-2.0 [facility] Comment on above: Order Comment: Y Performed By: #### M 100.2400, #### [facility] Laboratory [address] [place], [place], [id number] Lactic acid measurementOrder ed By: Mike Mai on 12-08-2024 Lactate [Moles/Vol] 1.3 mmol/L 0.0-2.0 [facility] Lymphocytes Auto (Unsp spec) [#/Vol]Ordered By: Mikekylie Mai on 12-08-2024 Lymphocytes (Bld) [#/Vol] 3.83 10*3/uL 0.83-4.51 [facility] Lymphocytes/100 WBC Auto (Un sp spec)Ordered By: Mikekylie Mai on 12-08-2024 Lymphocytes/100 WBC (Bld) 21.5 % 19-41 [facility] M100.678on 12-08-2024 M100.678 SARS-CoV-2 (COVID 19 ) Negative INFLUENZA A Negative INFLUENZA B Negative RSV PCR Negative Normal [facility] Comment on above: Performed By: #### M 100.2400, M1.1999 #### [facility] [address] [place], [place], [id number] MCV (mean corpuscular volume ) determinationOrdered By: Mike Mai on 12-08-2024 MCV (RBC) [Entitic vol] 80.8 fL Low 81-99 [facility] Mean corpuscular hemoglobin (MCH) determinationOrdered By: Mike Mai on 12-08-2024 MCH (RBC) [Entitic mass] 27.3 pg 27.0-32.0 [facility] Mean corpuscular hemoglobin concentration (MCHC) determinationOrdered By: Mikekylie Mai on 12-08-2024 MCHC (RBC) [Mass/Vol] 33.8 g/dL 32-36 [facility] Mean platelet volume determi nationOrdered By: Mikekylie Mai on 12-08-2024 Platelet mean volume (Bld) [Entitic vol] 9.6 fL 6.2-12.0 [facility] Monocyte percentageOrdered B y: Mikekylie Mai on 12-08-2024 Monocytes/100 WBC (Bld) 7.8 % 0-10 [facility] Neutrophil percentageOrdered By: Mikekylie Huddlestono on 12-08-2024 Neutrophils/100 WBC (Bld) 69.1 % 47-70 [facility] Nucleated red blood cell per centageOrdered By: Mikekylie Mai on 12-08-2024 Nucleated RBC/100 WBC (Bld) [Ratio] 0 % 0-5 [facility] Platelet countOrdered By: kylie Mai on 12-08-2024 Platelets (Bld) [#/Vol] 435 10*3/uL 150-450 [facility] Potassium (Unsp spec) [Mass/ Vol]Ordered By: Mike Mai on 12-08-2024 Potassium [Moles/Vol] 4.2 mmol/L 3.3-5.1 [facility] Potassium measurement (mass/ volume)Ordered By: Mikekylie Mai on 12-08-2024 Potassium (Unsp spec) [Mass/Vol] 4.2 mmol/L 3.3-5.1 [facility] RBC Auto (Bld) [#/Vol]Ordere d By: Mike Mai on 12-08-2024 RBC (Bld) [#/Vol] 4.90 10*6/uL 4.2-5.4 [facility] Serum creatinine measurement (mass/volume)Ordered By: Mike Mai on 12-08-2024 Creatinine [Mass/Vol] 0.65 mg/dL Low 0.70-1.20 [facility] Serum globulin measurementOr dered By: Mike Mai on 12-08-2024 Globulin (S) [Mass/Vol] 2.9 g/dL 2.2-4.2 [facility] Serum glucose measurement (m ass/volume)Ordered By: Mike Mai on 12-08-2024 Glucose [Mass/Vol] 113 mg/dL High 70-99 [facility] Serum or plasma alanine ruby otransferase (ALT) measurementOrdered By: Mike Mai on 12-08-2024 ALT [Catalytic activity/Vol] 29 U/L <35 [facility] Serum or plasma albumin sanford urement (mass/volume)Ordered By: Mike Mai on 12-08-2024 Albumin [Mass/Vol] 4.3 g/dL 3.5-5.0 [facility] Serum or plasma albumin/glob ulin mass ratioOrdered By: Mike Mai on 12-08-2024 Albumin/Globulin [Mass ratio] 1.5 {ratio} 0.9-2.4 [facility] Serum or plasma alkaline neftali sphatase measurementOrdered By: Mike Mai on 12-08-2024 ALP [Catalytic activity/Vol] 145 U/L High 35-104 [facility] Serum or plasma calcium sanford urement (mass/volume)Ordered By: Mike Mai on 12-08-2024 Calcium [Mass/Vol] 9.3 mg/dL 7.6-11.0 [facility] Serum or plasma urea nitroge n measurement (mass/volume)Ordered By: Mike Mai on 12-08-2024 Urea nitrogen [Mass/Vol] 9 mg/dL 4-19 [facility] Sodium levelOrdered By: Mike Mai on 12-08-2024 Sodium [Moles/Vol] 140 mmol/L 133-145 [facility] Total proteinOrdered By: Mike Mai on 12-08-2024 Protein [Mass/Vol] 7.2 g/dL 5.9-8.4 [facility] White blood cell (WBC) count Ordered By: Mike Mai on 12-08-2024 WBC (Bld) [#/Vol] 17.8 10*3/uL High 4.4-11.0 [facility] Respiratory Cultureon 2024 RESPC Streptococcus pneumo niae Amount Growth 3+ Streptococcus pneumoniae: REACTION Cefotaxime Islt CELENA <=0.12 S Cefotaxime Islt CELENA <=0.12 S cefTRIAXone Islt CELENA 0.25 S cefTRIAXone Islt CELENA 0.25 S Clindamycin Islt CELENA >=1 R Erythromycin Islt CELENA >=8 R levoFLOXacin Islt CELENA 1 S Moxifloxacin Islt CELENA 0.12 S TMP SMX Islt CELENA <=10 S Vancomycin Islt CELENA 0.5 S Penicillin Islt CELENA 0.12 R Penicillin Islt CELENA 0.12 S Penicillin Islt CELENA 0.12 I Normal [facility] Comment on above: Performed By: #### M 100.2400, M100.1999 #### [facility] [address] [place], [place], [id number] Gram Stainon 11-25-2024 GS Acceptable Specimen? Yes (<25 Epithelial cells per/lpf) Gram Stain 4+ Gram positive cocci 2+ White Blood Cells 1+ Epithelial cells 4+ Gram positive diplococci 4+ Gram positive rods 1+ Gram negative rods Normal [facility] Comment on above: Performed By: #### M 100.2400, M100.1999 #### [facility] [address] [place], [place], [id number] Gram stainOrdered By: Yordan Vanegas on 11-25-2024 Microscopic observation Gram stain Nom (Unsp spec) [facility] Microbial respiratory cultur eOrdered By: Yordan Vanegas on 11-25-2024 Microorganism identified Cx Nom (Unsp spec) Streptococcus pneumoniae Abnormal [facility] Microorganism identified Cx Nom (Unsp spec)Ordered By: Yordan Vanegas on 11-25-2024 Respiratory Culture Streptococcus pneumoniae Abnormal [facility] Culture, Blood (WB)on 2024 CUB Blood cultures x2, f rom two different sites No growth in 5 days. Normal [facility] Comment on above: Performed By: #### M 200.1000 #### [facility] [address] [place], [address] Respiratory Cultureon 2024 RESPC List Antibiotics to be Started? doxycycline, cefdinir Streptococcus pneumoniae Amount Growth 2+ Streptococcus pneumoniae: REACTION Cefotaxime Islt CELENA <=0.12 S Cefotaxime Islt CELENA <=0.12 S cefTRIAXone Islt CELENA 0.25 S cefTRIAXone Islt CELENA 0.25 S Clindamycin Islt CELENA >=1 R Erythromycin Islt CELENA >=8 R levoFLOXacin Islt CELENA 1 S Moxifloxacin Islt CELENA 0.12 S TMP SMX Islt CELENA <=10 S Vancomycin Islt CELENA 0.5 S Penicillin Islt CELENA 0.12 R Penicillin Islt CELENA 0.12 S Penicillin Islt CELENA 0.12 I [facility] Comment on above: Performed By: #### M 100.2400, M100.1999 #### [facility] [address] [place], [address] Gram Stainon 11-07-2024 List Antibiotics to be Started? doxycycline, cefdinir Acceptable Specimen? Yes (<25 Epithelial cells per/lpf) Gram Stain Rare Gram positive rods 1+ Gram negative diplococci 2+ Gram positive cocci 1+ White Blood Cells No Epithelial cells * This is an amended result. * A prior result that was reported as final has been changed. 11/08/24 0744 by HUE [facility] Comment on above: Performed By: #### M 100.2400, M100.1999 #### [facility] [address] [place], [address] Legionella Antigen Urineon 0 11-07-2024 LEGU URINE, CLEAN CATCH Legionella Antigen result interpretation: L pneumo Ag Ur Ql Negative Presumptive negative for Legionella pneumophila serogroup 1 antigen in urine, suggesting no recent or current infection. Legionella Ag, Urine Negative (See interpretation below) Normal [facility] Comment on above: Performed By: #### M 100.2400, M100.1999 #### [facility] [address] [place], [address] Strep pneumoniae Antig(UR,CS F)on 11-07-2024 STPAG URINE INTERPRETATION Strep pneumoniae Antig(UR,CSF) Strep pneumoniae Antig(UR,CSF) Negative Urine Presumptive negative for pneumococcal pneumonia, suggesting no current or recent pneumococcal infection. Infection due to S pneumoniae cannot be ruled out since the antigen present in the sample may be below the detection limit of the test. Strep pneumo Test Negative URINE (See interpretation below) Normal [facility] Comment on above: Performed By: #### M 100.2408, M100.1999 #### [facility] [address] [place], [place], [id number] 12 Lead EKGon 11-06-2024 12 Lead EKG [facility] Cardiovascular Services [address] [address] 12 Lead EKG 11/06/24 2218 MR#: [id number] Acct: [id number] Name: OFE GIMENEZ Rep #: [id number] : 1975 49 From: Balta Whipple MD Attending Dr: Status: DEP ER Ordering Dr: Yordan Vanegas DO Date: 11/06/24 Location: ED Sex: F C Admitted: Test Reason : GEN ILL Blood Pressure : */* mmHG Vent. Rate : 100 BPM Atrial Rate : 100 BPM P-R Int : 178 ms QRS Dur : 72 ms QT Int : 326 ms P-R-T Axes : 59 40 63 degrees QTcB Int : 420 ms Normal sinus rhythm Normal ECG When compared with ECG of 09-Oct-2003 04:02, No significant change was found Confirmed by BALTA WHIPPLE MD ([id number]), news copy editor KARLO DIAZ ([id number]) on 11/11/2024 7:33:43 AM Referred By: Yordan Vanegas Confirmed By: BALTA WHIPPLE MD 11/11/24732 Date Balta Whipple MD CC: Dr. Yordan Vanegas DO; Dr. Yarelis Fitzpatrick DO Signed Normal [facility] Absolute lymphocyte countOrd ered By: Yordan Vanegas on 11-06-2024 Lymphocytes Auto (Unsp spec) [#/Vol] 2.98 10*3/uL 0.83-4.51 [facility] Absolute neutrophil countOrd ered By: Yordan Vanegas on 11-06-2024 Neutrophils (Bld) [#/Vol] 15.7 10*3/uL High 2.0-7.7 [facility] Anion gap in Serum or Plasma Ordered By: Yordan Vanegas on 11-06-2024 Anion gap [Moles/Vol] 12 mmol/L 5-15 [facility] Automated lymphocyte count a s percentage of total leukocytesOrdered By: Yordan Vanegas on 11-06-2024 Lymphocytes/100 WBC Auto (Unsp spec) 14.8 % Low 19-41 [facility] BUN/creatinine ratioOrdered By: Yordan Vanegas on 11-06-2024 Urea nitrogen/Creatinine [Mass ratio] 15.6 mg/mg 10-20 [facility] Basophil percentageOrdered B y: Yordan Vanegas on 11-06-2024 Basophils/100 WBC (Bld) 0.5 % 0-1 [facility] Bilirubin Test strip Ql (U)O rdered By: Yordan Vanegas on 11-06-2024 Bilirubin Ql (U) Negative Negative [facility] Bilirubin, totalOrdered By: Yordan Vanegas on 11-06-2024 Bilirubin [Mass/Vol] 0.24 mg/dL 0.00-1.30 [facility] Blood cultureOrdered By: Frantz Vanegas on 11-06-2024 Bacteria identified Cx Nom (Bld) No growth in 5 days. [facility] Bacteria identified Cx Nom (Bld) No growth in 5 days. [facility] CBC W/Diff, Automatedon 10-19 Absolute Lymph 2.98 X10 3/uL Normal 0.83-4.51 [facility] Comment on above: Performed By: #### M 100.2400, #### [facility] Laboratory [address] [place], [address] Absolute Neut 15.7 X10 3/uL High 2.0-7.7 [facility] Comment on above: Performed By: #### M 100.240, #### [facility] [address] [place], [address] Basophils/100 WBC (Bld) 0.5 % Normal 0-1 [facility] Comment on above: Performed By: #### M 100.240, #### [facility] [address] [place], [address] Eosinophils/100 WBC (Bld) 0.2 % Normal 0-5 [facility] Comment on above: Performed By: #### M 100.240, #### [facility] [address] [place], [address] Erythrocyte distribution width (RBC) [Ratio] 14.4 % Normal 11.6-14.6 [facility] Comment on above: Performed By: #### M 100.240, #### [facility] [address] [place], [address] Hematocrit (Bld) [Volume fraction] 37.9 % Normal 37-47 [facility] Comment on above: Performed By: #### M 100.2400, #### [facility] [address] [place], [address] Hemoglobin (Bld) [Mass/Vol] 13.1 g/dL Normal 12.0-15.0 [facility] Comment on above: Performed By: #### M 100.2400, #### [facility] [address] [place], [address] IG% 0.500 Normal 0.0-0.9 [facility] Comment on above: Result Comment: IG% - Immature Granulocytes (promyelocytes, myelocytes and metamyelocytes) > 1% indicates that a LEFT SHIFT is Present. Performed By: #### M 100.2400, #### [facility] [address] [place], [address] Lymphocytes/100 WBC (Bld) 14.8 % Low 19-41 [facility] Comment on above: Performed By: #### M 100.2400, #### [facility] [address] [place], [address] MCH (RBC) [Entitic mass] 28.2 pg Normal 27.0-32.0 [facility] Comment on above: Performed By: #### M 100.2400, #### [facility] [address] [place], [address] MCHC (RBC) [Mass/Vol] 34.6 g/dL Normal 32-36 [facility] Comment on above: Performed By: #### M 100.2400, #### [facility] [address] [place], [address] MCV (RBC) [Entitic vol] 81.5 fL Normal 81-99 [facility] Comment on above: Performed By: #### M 100.2400, #### [facility] [address] [place], [address] Monocytes/100 WBC (Bld) 6.4 % Normal 0-10 [facility] Comment on above: Performed By: #### M 100.2400, #### [facility] [address] [place], [address] Neutrophils/100 WBC (Bld) 77.6 % High 47-70 [facility] Comment on above: Performed By: #### M 100.2400, #### [facility] [address] [place], [address] Nucleated RBC (Bld) [#/Vol] 0 10*3/uL Normal 0-5 [facility] Comment on above: Performed By: #### M 100.240, #### [facility] [address] [place], [address] Platelet mean volume (Bld) [Entitic vol] 9.6 fL Normal 6.2-12.0 [facility] Comment on above: Performed By: #### M , #### [facility] [address] [place], [address] Platelets (Bld) [#/Vol] 536 10*3/uL High 150-450 [facility] Comment on above: Performed By: #### M 240, #### [facility] [address] [place], [address] RBC (Bld) [#/Vol] 4.65 10*6/uL Normal 4.2-5.4 [facility] Comment on above: Performed By: #### M .240, #### [facility] [address] [place], [address] RDW SD 42.3 fl Normal 35.1-43.9 [facility] Comment on above: Performed By: #### M 100240, #### [facility] [address] [place], [address] WBC (Bld) [#/Vol] 20.2 10*3/uL High 4.4-11.0 [facility] Comment on above: Performed By: #### M 2400, M100.1999 #### [facility] [address] [place], [address] CTA Chest W/WO Contraston CTA Chest W/WO Contrast [facility] Imaging Services [address] [place] [address] CTA Chest W/WO Contrast MR#: [id number] Acct: [id number] Name: OFE GIMENEZ Rep #: [id number] : 1975 F 49 From: Zaki landeros MD PCP: Dr. Yarelis Fitzpatrick, DO Status: REG ER Study: CTA Chest W/WO Contrast Date of Exam: 11/06/24 Exam# [id number] Ordering Dr: Yordan Vanegas DO PROCEDURE: CTA CHEST W/WO CONTRAST 11/06/2024 REASON FOR EXAM: CHEST PAIN PULMONARY EMBOLISM TECHNIQUE: CTA axial imaging of the chest with intravenous contrast. Coronal, Sagittal and 3D with MIP reconstruction series were provided. PATIENT PREPARATION: Per protocol CONTRAST: VOLUME: 100mL Omnipaque 350 gauge IV One or more dose reduction techniques were used (e.g., Automated exposure control, adjustment of the mA and/or kV according to patient size, use of iterative reconstruction technique). COMPARISON: CT chest 10/15/2024 FINDINGS: Hardware: None Lymph nodes: Multiple prominent but nonenlarged by size criteria hilar and mediastinal lymph nodes, which are likely reactive. Heart: No cardiomegaly. Thoracic Aorta: No thoracic aortic aneurysm or dissection. Pulmonary Vessels: No large central pulmonary emboli are identified. Contrast timing is suboptimal for evaluation of more distal branches. Most Proximal Level of Embolus (if embolus present): Lungs and Airways: Central airways are patent without endobronchial lesions. Biapical scarring. Mild emphysema in the upper lobes. Scattered ground-glass and consolidative opacities, for example in the left lower lobe (series 2, image 79); and anterior right middle lobe (image 150). Findings are concerning for pneumonia. Mild bilateral bronchial wall thickening. No pneumothorax. No pleural effusion. Upper Abdomen: Small hiatal hernia. Bones: Bone windows are unremarkable. CT/CTA Chest W/WO Contrast IMPRESSION: No evidence of pulmonary embolism. Ground-glass and consolidative opacities left lower lobe and anterior right middle lobe, concerning for multifocal pneumonia. Reading Location: [facility] CC: Dr. Yordan Vanegas, DO; Dr. Yarelis Fitzpatrick, DO Doubler Helper: Signed Normal [facility] Carbon dioxide, total [Moles /volume] in Central venous bloodOrdered By: Yordan Vanegas on 11-06-2024 CO2 [Moles/Vol] 23.7 mmol/L 21.0-32.0 [facility] Chloride assayOrdered By: Gregory Vanegas on 11-06-2024 Chloride [Moles/Vol] 104 mmol/L 98-108 [facility] Comprehensive Metabolic Prof ilon 11-06-2024 Albumin [Mass/Vol] 4.2 g/dL Normal 3.5-5.0 [facility] Comment on above: Performed By: #### M 100.240, #### [facility] [address] [place], [address] Albumin/Globulin [Mass ratio] 1.5 {ratio} Normal 0.9-2.4 [facility] Comment on above: Performed By: #### M 100.2400, #### [facility] [address] [place], [address] ALK PHOS 94 U/L Normal 35-104 [facility] Comment on above: Performed By: #### M 100.2400, #### [facility] [address] [place], [address] ALT [Catalytic activity/Vol] 21 U/L Normal <=34 [facility] Comment on above: Performed By: #### M 100.2400, #### [facility] [address] [place], [address] AST [Catalytic activity/Vol] 26 U/L Normal <=31 [facility] Comment on above: Performed By: #### M 100.240, #### [facility] [address] [place], [address] Bilirubin [Mass/Vol] 0.24 mg/dL Normal 0.00-1.30 [facility] Comment on above: Performed By: #### M .240, #### [facility] [address] [place], [address] BUN/CRE 15.6 RATIO Normal 10-20 [facility] Comment on above: Performed By: #### M 100240, #### [facility] [address] [place], [address] Calcium [Mass/Vol] 9.4 mg/dL Normal 7.6-11.0 [facility] Comment on above: Performed By: #### , #### [facility] [address] [place], [address] Chloride [Moles/Vol] 104 mmol/L Normal 98-108 [facility] Comment on above: Performed By: #### M , #### [facility] [address] [place], [address] CO2 [Moles/Vol] 23.7 mmol/L Normal 21.0-32.0 [facility] Comment on above: Performed By: #### M 100.240, #### [facility] [address] [place], [address] Creatinine [Mass/Vol] 0.77 mg/dL Normal 0.70-1.20 [facility] Comment on above: Performed By: #### M 100.240, #### [facility] [address] [place], [address] ECRCL 80.92 ml/min Normal 50-250 [facility] Comment on above: Performed By: #### M 100.2400, #### [facility] [address] [place], [address] GAP 12 Normal 5-15 [facility] Comment on above: Performed By: #### M 100.240, #### [facility] [address] [place], [address] GFR/1.73 sq M.predicted among non-blacks MDRD (S/P/Bld) [Vol rate/Area] 94 mL/min/{1.73_m2} Normal >60 [facility] Comment on above: Result Comment: mL/m in/1.73m2 CKD-EPI Creatinine Equation (2020) Performed By: #### M 100.240, #### [facility] [address] [place], [address] Globulin (S) [Mass/Vol] 2.7 g/dL Normal 2.2-4.2 [facility] Comment on above: Performed By: #### M 100.2399, #### [facility] [address] [place], [address] Glucose [Mass/Vol] 139 mg/dL High 70-99 [facility] Comment on above: Performed By: #### M 100.240, #### [facility] [address] [place], [address] Potassium [Moles/Vol] 3.7 mmol/L Normal 3.3-5.1 [facility] Comment on above: Performed By: #### M 100.2400, #### [facility] [address] [place], [address] Sodium [Moles/Vol] 140 mmol/L Normal 133-145 [facility] Comment on above: Performed By: #### M 100.2400, M100.1999 #### [facility] [address] [place], [address] T PROT 6.9 g/dL Normal 5.9-8.4 [facility] Comment on above: Performed By: #### M 100.2400, M100.1999 #### [facility] [address] [place], [address] Urea nitrogen [Mass/Vol] 12 mg/dL Normal 4-19 [facility] Comment on above: Performed By: #### M 100.2400, M100.1999 #### [facility] [address] [place], [address] Emergency Department Summary on 11-06-2024 Emergency Department Summary [facility] Medical Records Department [address] [place] [address] Emergency Department Summary 11/06/24 MR#: [id number] Acct: [id number] Name: OFE GIMENEZ Rep #: [id number] : 1975 49 From: Yordan Vanegas DO PCP: Dr. Yarelis Fitzpatrick DO Status:REG ER Location: ED ADDENDUM by Dr. Yordan Vanegas DO on 11/06/24 at 2330 Update: After prescriptions were sent plan discussed with patient she is concerned that doxycycline upsets her stomach. Therefore I will change her to azithromycin. 11/06/24 2330 Cosigner Signature (if applicable): cc: Dr. Yarelis Fitzpatrick DO * Signed HPI History of Present Illness Chief Complaint: General Illness Informant: patient and spouse/S.O. Narrative Narrative: 49-year-old female presenting to the emergency room with chest pain cough change in sputum and bodyaches. 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 In September of this year she was found to have strep pneumonia infection was started on 10 days of Augmentin and recently completed a course of Levaquin. She has been doing pulmonary toilet. She states that the end of last week when she followed up in the office she was having clear sputum but today has turned green. She notes that she had a sudden onset of bodyaches and has developed a pain in the left lower anterior chest. She states it feels similar to when she had pneumonia on her right upper chest. The patient was found to have a possible mass on chest CT in September and also had a PET scan. It was felt that this mass could possibly be scar tissue complicated with pneumonia. She denies significant rhinorrhea vomiting diarrhea or rash. She has not no history of coronary artery disease or pulmonary embolism. She felt feverish but did not take her temperature. At 1900 hrs. she took Tylenol temperature in triage is 99.6. She does not wear home oxygen. She is a lifelong non-smoker. [facility] Medical History (Updated 11/06/24 @ 23:[address] Yordan Vanegas DO) Immunoglobulin deficiency Mass of upper lobe of right lung Bronchiectasis Immune deficiency disorder Home Medications ???Medication ???Instructions ???Recorded ???Last Taken ???Type PEP device #1 ea 08/15/23 Unknown Rx immun glob G 4 gram/20 mL (20 8 mg subcut QWEEK 08/30/24 Unknown History %)-prol-IgA 0-50 mcg/mL subcutaneous syr (Hizentra) nebulizer kits #1 ea 08/30/24 Unknown Rx levalbuterol HCl 0.63 mg/3 mL 0.63 mg (3 mL) inhalation Q12H #90 10/01/24 Unknown Rx solution for nebulization mL cefdinir 300 mg capsule 300 mg PO BID #14 caps 11/06/24 Un known Rx doxycycline monohydrate 100 mg 100 mg PO BID #14 CAPSULES 5 Unknown Rx capsule Allergy/AdvReac Type Severity Reaction Status Date / Time No Known Allergies Allergy Verified 11/06/24 21:19 Surgical History Hx of section Social History household members: spouse Smoking Status: Never smoker substance use type: does not use ROS ROS ED Constitutional Constitutional ED: Reports chills, fever(s) and subjective; Denies weight loss Eyes Eyes: Denies change in vision or diplopia ENT ENT ED: Denies ear pain, rhinorrhea or sore throat Cardiovascular Cardiovascular: Reports chest pain; Denies orthopnea, palpitations or racing heartbeat Respiratory/Chest Respiratory/Chest: Reports cough and dyspnea; Denies orthopnea Gastrointestinal Gastrointestinal: Denies abdominal pain, diarrhea, nausea or vomiting Genitourinary Genitourinary ED: Denies dysuria, hematuria or urinary frequency Musculoskeletal Musculoskeletal: Reports arthralgias and myalgias Integumentary Denies abscess or rash Neurologic Neurologic: Denies headache(s) or weakness Psychiatric Psychiatric: Denies anxiety, depression, suicidal ideation or suicidal thoughts Endocrine Endocrinology: Denies polydipsia, polyphagia or polyuria Allergic/Immunologic Allergic/Immunologic ED: Denies mouth swelling, tongue swelling or urticaria EXAM Physical Exam Const Vital Signs: 11/06/24 21:19 11/06/24 21:38 11/06/24 22:55 Temperature 99.6 F H 98.5 F Temperature Source Oral Oral Pulse Rate 114 H 100 Respiratory Rate 18 18 Respiratory Effort Normal Respiratory Pattern Normal Blood Pressure 171/93 H 152/80 H Blood Pressure Mean 119 104 Pulse Ox 97 98 Oxygen Delivery Method Room Air Room Air Positive well nourished and well developed General Appearance ED: well developed and NAD HEENT Reports normocephalic, head/scalp atraumatic and mois (more content not included)... Normal [facility] Eosinophil percentageOrdered By: Yordan Vanegas on 11-06-2024 Eosinophils/100 WBC (Bld) 0.2 % 0-5 [facility] Epithelial cells.squamous LM Ql (Urine sed)Ordered By: Yordan Vanegas on 11-06-2024 Epithelial cells.squamous LM.HPF (Urine sed) [#/Area] 0 /[HPF] 5-10 [facility] Erythrocyte distribution wid th ratioOrdered By: Yordan Vanegas on 11-06-2024 Erythrocyte distribution width (RBC) [Ratio] 14.4 % 11.6-14.6 [facility] Erythrocyte distribution wid th standard deviationOrdered By: Yordan Vanegas on 11-06-2024 Erythrocyte distribution width (RBC) [Entitic vol] 42.3 fL 35.1-43.9 [facility] Erythrocyte distribution width (RBC) [Ratio] 42.3 fl 35.1-43.9 [facility] Estimation of creatinine boby aranceOrdered By: Yordan Vanegas on 11-06-2024 Estimated Creatinine Clearance Calc 80.92 ml/min 50-250 [facility] GFR/1.73 sq M.predicted juan carlos g non-blacks MDRD (S/P/Bld) [Vol rate/Area]Ordered By: Yordan Vanegas on 11-06-2024 Estimated GFR (MDRD) Non-Af Amer 94 >60 [facility] Comment on above: mL/min/1.73m2 CKD-EP I Creatinine Equation (2020) Glomerular filtration rate ( GFR) estimation/1.73 sq m using serum, plasma, or whole bOrdered By: Yordan Vanegas on 11-06-2024 GFR/1.73 sq M.predicted among non-blacks MDRD (S/P/Bld) [Vol rate/Area] 94 mL/min/{1.73_m2} >60 [facility] Comment on above: mL/min/1.73m2 CKD-EP I Creatinine Equation (2020) Glucose Ql (U)Ordered By: Gregory Vanegas on 11-06-2024 Urine Glucose (UA) Normal mg/dl Normal [facility] Gram stainOrdered By: Yordan Vanegas on 11-06-2024 Microscopic observation Gram stain Nom (Unsp spec) [facility] Hematocrit Auto (Bld) [Volum e fraction]Ordered By: Yordan Vanegas on 11-06-2024 Hematocrit (Bld) [Volume fraction] 37.9 % 37-47 [facility] Hemoglobin measurementOrdere d By: Yordan Vanegas on 11-06-2024 Hemoglobin (Bld) [Mass/Vol] 13.1 g/dL 12.0-15.0 [facility] Immature granulocytes/100 WB C Auto (Bld)Ordered By: Yordan Vanegas on 11-06-2024 Immature granulocytes/100 WBC (Bld) 0.500 % 0.0-0.9 [facility] Comment on above: IG% - Immature Granu locytes (promyelocytes, myelocytes and metamyelocytes) > 1% indicates that a LEFT SHIFT is Present. Influenza virus A and B and SARS-CoV-2 (COVID-19) and Respiratory syncytial virus RNAOrdered By: Yordan Vanegas on 11-06-2024 SARS-CoV-2 (COVID-19) RNA MICHELLE+probe Ql (Unsp spec) [facility] Ketones Test strip Ql (U)Ord ered By: Yordan Vanegas on 11-06-2024 Ketones Ql (U) Negative Negative [facility] L. pneumophila Ag Ql (U)Orde red By: Yordan Vanegas on 11-06-2024 Legionella Antigen [facility] [id number] 11-06-2024 Trop T High Sen 7 ng/L Normal <=14 [facility] Comment on above: Performed By: #### L 501.4021 #### [facility] [address] [place], [address] Laboratory - Chemistry and C hemistry - challengeOrdered By: Yordan Vanegas on 11-06-2024 AST [Catalytic activity/Vol] 26 U/L <32 [facility] Lymphocytes Auto (Unsp spec) [#/Vol]Ordered By: Yordan Vanegas on 11-06-2024 Lymphocytes (Bld) [#/Vol] 2.98 10*3/uL 0.83-4.51 [facility] Lymphocytes/100 WBC Auto (Un sp spec)Ordered By: Yordan Vanegas on 11-06-2024 Lymphocytes/100 WBC (Bld) 14.8 % Low 19-41 [facility] M100.678on 11-06-2024 M100.678 Pending SARS-CoV-2 (COVID 19) Negative INFLUENZA A Negative INFLUENZA B Negative RSV PCR Negative Normal [facility] Comment on above: Performed By: #### M 100.678 #### [facility] [address] [place], [address] MCV (mean corpuscular volume ) determinationOrdered By: Yordan Vanegas on 11-06-2024 MCV (RBC) [Entitic vol] 81.5 fL 81-99 [facility] Mean corpuscular hemoglobin (MCH) determinationOrdered By: Yordan Vanegas on 11-06-2024 MCH (RBC) [Entitic mass] 28.2 pg 27.0-32.0 [facility] Mean corpuscular hemoglobin concentration (MCHC) determinationOrdered By: Yordan Vanegas on 11-06-2024 MCHC (RBC) [Mass/Vol] 34.6 g/dL 32-36 [facility] Mean platelet volume determi nationOrdered By: Yordan Vanegas on 11-06-2024 Platelet mean volume (Bld) [Entitic vol] 9.6 fL 6.2-12.0 [facility] Microbial respiratory cultur eOrdered By: Yordan Vanegas on 11-06-2024 Microorganism identified Cx Nom (Unsp spec) Streptococcus pneumoniae Abnormal [facility] Microorganism identified Cx Nom (Unsp spec)Ordered By: Yordan Vanegas on 11-06-2024 Respiratory Culture Streptococcus pneumoniae Abnormal [facility] Microscopic analysis of urin e for red blood cells (RBC)Ordered By: Yordan Vanegas on 11-06-2024 Microscopic analysis of urine for red blood cells (RBC) 0 SEEN /hpf 0-5 [facility] Urine RBC 0 SEEN /hpf 0-5 [facility] Monocyte percentageOrdered B y: Yordan Vanegas on 11-06-2024 Monocytes/100 WBC (Bld) 6.4 % 0-10 [facility] Mucus LM Ql (Urine sed)Order ed By: Yordan Vanegas on 11-06-2024 Mucus Ql (Urine sed) 0 SEEN /hpf [facility] Neutrophil percentageOrdered By: Yordan Vanegas on 11-06-2024 Neutrophils/100 WBC (Bld) 77.6 % High 47-70 [facility] Nitrite Test strip Ql (U)Ord ered By: Yordan Vanegas on 11-06-2024 Nitrite Ql (U) Negative Negative [facility] No Panel InformationOrdered By: Yordan Vanegas on 11-06-2024 Troponin T High Sensitivity 7 ng/L <14 [facility] Nucleated red blood cell per centageOrdered By: Yordan Vanegas on 11-06-2024 Nucleated RBC/100 WBC (Bld) [Ratio] 0 % 0-5 [facility] Platelet countOrdered By: Gregory Vanegas on 11-06-2024 Platelets (Bld) [#/Vol] 536 10*3/uL High 150-450 [facility] Potassium (Unsp spec) [Mass/ Vol]Ordered By: Yordan Vanegas on 11-06-2024 Potassium [Moles/Vol] 3.7 mmol/L 3.3-5.1 [facility] Potassium measurement (mass/ volume)Ordered By: Yordan Vanegas on 11-06-2024 Potassium (Unsp spec) [Mass/Vol] 3.7 mmol/L 3.3-5.1 [facility] Protein Test strip Ql (U)Ord ered By: Yordan Vanegas on 11-06-2024 Protein Ql (U) Negative Negative [facility] RBC Auto (Bld) [#/Vol]Ordere d By: Yordan Vanegas on 11-06-2024 RBC (Bld) [#/Vol] 4.65 10*6/uL 4.2-5.4 [facility] Serum creatinine measurement (mass/volume)Ordered By: Yordan Vanegas on 11-06-2024 Creatinine [Mass/Vol] 0.77 mg/dL 0.70-1.20 [facility] Serum globulin measurementOr dered By: Yordan Vanegas on 11-06-2024 Globulin (S) [Mass/Vol] 2.7 g/dL 2.2-4.2 [facility] Serum glucose measurement (m ass/volume)Ordered By: Yordan Vanegas on 11-06-2024 Glucose [Mass/Vol] 139 mg/dL High 70-99 [facility] Serum or plasma alanine ruby otransferase (ALT) measurementOrdered By: Yordan Vanegas on 11-06-2024 ALT [Catalytic activity/Vol] 21 U/L <35 [facility] Serum or plasma albumin sanford urement (mass/volume)Ordered By: Yordan Vanegas on 11-06-2024 Albumin [Mass/Vol] 4.2 g/dL 3.5-5.0 [facility] Serum or plasma albumin/glob ulin mass ratioOrdered By: Yordan Vanegas on 11-06-2024 Albumin/Globulin [Mass ratio] 1.5 {ratio} 0.9-2.4 [facility] Serum or plasma alkaline neftali sphatase measurementOrdered By: Yordan Vanegas on 11-06-2024 ALP [Catalytic activity/Vol] 94 U/L 35-104 [facility] Serum or plasma calcium sanford urement (mass/volume)Ordered By: Yordan Vanegas on 11-06-2024 Calcium [Mass/Vol] 9.4 mg/dL 7.6-11.0 [facility] Serum or plasma urea nitroge n measurement (mass/volume)Ordered By: Yordan Vanegas on 11-06-2024 Urea nitrogen [Mass/Vol] 12 mg/dL 4-19 [facility] Sodium levelOrdered By: Jeferson Vanegas on 11-06-2024 Sodium [Moles/Vol] 140 mmol/L 133-145 [facility] Squamous epithelial cells de tection in urine sediment by light microscopyOrdered By: Yordan Vanegas on 11-06-2024 Epithelial cells.squamous LM Ql (Urine sed) 0 SEEN /hpf 5-10 [facility] Streptococcus pneumoniae ant igen assayOrdered By: Yordan Vanegas on 11-06-2024 Streptococcus pneumoniae Antigen (M [facility] Total proteinOrdered By: Frantz Vanegas on 11-06-2024 Protein [Mass/Vol] 6.9 g/dL 5.9-8.4 [facility] Urinalysis, Completeon 11-06 RBC 0 SEEN Normal 0-5 [facility] Comment on above: Order Comment: CLEAN CATCH Performed By: #### L 400.0001 #### [facility] [address] [place], [place], [id number] (993) WBC 0-5 SEEN Normal 0-5 [facility] Comment on above: Order Comment: CLEAN CATCH Performed By: #### L 400.0001 #### [facility] [address] [place], [address] BACTERIA 0 SEEN Normal None Seen [facility] Comment on above: Order Comment: CLEAN CATCH Performed By: #### L 400.0001 #### [facility] [address] [place], [address] EPI,SQUAMOUS 0 SEEN Normal 5-10 [facility] Comment on above: Order Comment: CLEAN CATCH Performed By: #### L 400.0001 #### [facility] [address] [place], [address] Mucus Ql (Urine sed) 0 SEEN Normal [facility] Comment on above: Order Comment: CLEAN CATCH Performed By: #### L 400.0001 #### [facility] [address] [place], [address] Urine Legionella pneumophila antigen detectionOrdered By: Yordan Vanegas on 11-06-2024 L. pneumophila Ag Ql (U) [facility] Urine blood detectionOrdered By: Yordan Vanegas on 11-06-2024 Urine Occult Blood Negative Negative [facility] Urine clarityOrdered By: Frantz Vanegas on 11-06-2024 Clarity (U) Clear Clear [facility] Urine color determinationOrd ered By: Yordan Vanegas on 11-06-2024 Color (U) Yellow Yellow [facility] Urine glucose detectionOrder ed By: Yordan Vanegas on 11-06-2024 Glucose Ql (U) Normal mg/dl Normal [facility] Urine leukocyte esterase det ection by dipstickOrdered By: Yordan Vanegas on 11-06-2024 Leukocyte esterase Test strip Ql (U) Negative Negative [facility] Urine pHOrdered By: Yordan carranza on 11-06-2024 pH (U) 8.0 [pH] 5.0 - 8.0 [facility] Urine sediment bacteria coun t by microscopy (number/high power field)Ordered By: Yordan Vanegas on 11-06-2024 Bacteria LM.HPF (Urine sed) [#/Area] 0 /[HPF] None Seen [facility] Urine specific gravity measu rementOrdered By: Yordan Vanegas on 11-06-2024 Specific gravity (U) [Rel density] 1.010 1.002-1.030 [facility] Urine urobilinogen measureme ntOrdered By: Yordan Vanegas on 11-06-2024 Urobilinogen Ql (U) Normal mg/dl Normal [facility] Urobilinogen Ql (U)Ordered B y: Yordan Vanegas on 11-06-2024 Urine Urobilinogen Normal mg/dl Normal [facility] White blood cell (WBC) count Ordered By: Yordan Vanegas on 11-06-2024 WBC (Bld) [#/Vol] 20.2 10*3/uL High 4.4-11.0 [facility] White blood cell countOrdere d By: Yordan Vanegas on 11-06-2024 Urine WBC 0-5 SEEN /hpf 0-5 [facility] White blood cell count 0-5 SEEN /hpf 0-5 [facility] Pulmonary Visit Reporton Pulmonary Visit Report [facility] [address] [place] [address] OFFICE VISIT Date of Service: 11/01/24 MR#: [id number] Acct: [id number] Name: OFE GIMENEZ Rep #: [id number] : 1975 Provider: Patience Del Real NP Age/Sex: 49/F [place] [facility] Status: Signed Assessment and Plan Assessment and Plan (1) Bronchiectasis: Status: Chronic Qualifiers: Bronchiectasis type: uncomplicated Qualified Code(s): J47.9 - Bronchiectasis, uncomplicated Plan: The patient has had multiple bronchiectasis exacerbations since the beginning of this calendar year. I was concerned that the immunoglobulin deficiency was not completely controlled so I called Dr. Vazquez to discuss. Dr. Vazquez reports that he is unable to change her regimen as she is on proper therapy. He is planning to consider use of prednisone. The NIOX is within normal limits today, oral prednisone is not warranted for me to prescribe today. I have recommended repeating the PFT. The patient does have a full pulmonary toilet regimen in place and I have recommended that she continue with nebulized levalbuterol twice daily followed by PEP therapy and use of 1200 mg of guaifenesin OTC twice daily with a full glass of water. I plan to add vest therapy twice daily to this regimen. I also plan to consult ID for consideration of prophylactic antibiotic therapy. The patient also has instruction to repeat the sputum for smear and culture 2 weeks after completing the recent antibiotic. (2) Mass of upper lobe of right lung: Status: Acute Plan: There is a decrease in size when compared to previous study on recent CT imaging. I plan to continue to follow this mass by repeating the CT of the chest in 3 months from last study. This plan was discussed with Dr. Meeks. (3) Immunoglobulin deficiency: Status: Chronic Plan: Complicates exam, plan, care and prognosis. Continue to monitor and continue to follow with specialist. Orders: Orders Chest without Contrast 10 Weeks R91.8 - Other nonspecific abnormal finding of lung field NIOX Today R05.9 - Cough, unspecified PFT Complete - DLCO, Spirometry b/a bronchodilators, lung volumes 12/09/24 J47.9 - Bronchiectasis, uncomplicated Referrals Infectious Disease J47.9 - Bronchiectasis, uncomplicated Plan Details Follow Up: 3 Months (LMR) HPI HPI Comments Details: Patient is a 49-year-old female who presents today to review recent CT imaging. She does have a history of bronchiectasis and pulmonary mass complicated by immunoglobulin deficiency. She is ambulatory and currently on room air. If you recall, CT imaging from August 28, 2024 showed a 2.6 cm lobulated soft tissue mass in the medial aspect of the right upper lobe with extension into the anterior mediastinum suspicious for neoplasm. There was adjacent postobstructive pneumonitis or atelectasis with mild soft tissue thickening and bronchiectasis in the right upper lobe airways. There is a 4 mm right upper lobe satellite nodule. Right mild mediastinal lymph and adenopathy. Mild right pleural effusion. Mild left lower lobe groundglass opacities from pneumonitis or atypical pneumonia. The patient indicates that since starting Levaquin her respiratory symptoms have improved. She continues to be treated by immune specialist for immune deficiency with Hizentra weekly injections. She felt like this did improve her respiratory symptoms initially and that her cough was nonproductive mostly and also reduced. More recently she reports that she has had a constant rattle in my chest since March. She was started on a Z-Carlos in June which helped reduce the congestion. She does have an occasional rattle in the chest. Prior to the Hizentra injections the rattling in the chest was occurring nightly, this has significantly improved. She does still have some triggers that cause a persistent cough. For example, sometimes perfumes, burning candles, or feeling overheated can elicit a persistent dry cough. Her does report that when the patient begins to become ill he notices that her left eye is bloodshot and swollen. On September 27, 2024 a sputum for smear and culture grew Streptococcus pneumoniae and she was started on Augmentin for 10 days. On October 21, 2024 she felt like her respiratory symptoms had worsened so she began Levaquin 500 mg daily for 10 days. She feels like she is normal. She is still coughing but this is her baseline. She reports that her sputum is thick and sticky. She is utilizing lev albuterol nebulized twice daily followed by flutter valve. She has increased her fluid intake. She is also utilizing Mucinex 1200 mg twice daily. She reports that he wheezes present but she denies chest pain and chest tightness. She denies shortness of breath. 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 Normal [facility] Chest WITH Contraston 2024 Chest WITH Contrast [facility] [address] [place] [address] Chest WITH Contrast MR#: [id number] Acct: [id number] Name: OFE GIMENEZ Rep #: [id number] : 1975 F 49 From: Luis doherty MD PCP: Dr. Yarelis Fitzpatrick, DO Status: REG CLI Study: Chest WITH Contrast Date of Exam: 10/15/24 Exam# [id number] Ordering Dr: Kimberly Jacobson POLICY SERVICES REPRESENTATIVE-C PROCEDURE: CHEST WITH CONTRAST REASON FOR EXAM: History of pneumonias. TECHNIQUE: Chest CTA with intravenous contrast and 3D reconstructions. Abdomen and pelvis CT using the same contrast dose. CONTRAST: 97 cc of Isovue-300. COMPARISON: Comparison is made with prior study dated August 28, 2024. FINDINGS: CHEST: Lines and tubes: None. Mediastinum: Stable slightly enlarged right paratracheal lymph node. Heart: Normal heart size. No pericardial effusion. Coronary artery calcification. Thoracic Aorta: No thoracic aortic aneurysm or dissection. Lungs and Airways: Hyperinflation. Stable scarring at the lung apices more prominent in the right upper lobe. Stable bronchiectasis with scarring in the anterior aspect of the right upper lobe along its medial aspect. Persistent soft tissue density most likely representing scarring rather than true mass lesion. This has decreased in size as compared to prior study. Pleura: No pleural effusion. No pneumothorax. Bones: Degenerative changes of the spine. CT/Chest WITH Contrast IMPRESSION: Essentially stable examination. Further follow-up recommended. One or more dose reduction techniques were used (e.g., Automated exposure control, adjustment of the mA and/or kV according to patient size, use of iterative reconstruction technique). Reading Location: [id number] CC: DARRYN Jacobson; Dr. Yarelis Fitzpatrick DO Doubler Helper: Signed Normal [facility] Respiratory Cultureon 2024 RESPC Streptococcus pneumo niae Amount Growth 2+ Streptococcus pneumoniae: REACTION Cefotaxime Islt CELENA 0.25 S Cefotaxime Islt CELENA 0.25 S cefTRIAXone Islt CELENA 0.25 S cefTRIAXone Islt CELENA 0.25 S Clindamycin Islt CELENA <=0.25 S Erythromycin Islt CELENA <=0.12 S levoFLOXacin Islt CELENA 1 S Moxifloxacin Islt CELENA 0.12 S TMP SMX Islt CELENA <=10 S Vancomycin Islt CELENA 0.5 S Penicillin Islt CELENA <=0.06 S Penicillin Islt CELENA <=0.06 S Penicillin Islt CELENA <=0.06 S Normal [facility] Comment on above: Performed By: #### M 100.2400, M1 #### [facility] [address] [place], [place], [id number] Gram Stainon 09-27-2024 GS Acceptable Specimen? Yes (<25 Epithelial cells per/lpf) Gram Stain 2+ Gram positive cocci Rare Gram positive rods 1+ White Blood Cells Normal [facility] Comment on above: Performed By: #### M 100.2400, M1 #### [facility] [address] [place], [place], [id number] Gram stainOrdered By: NAREN Viv aguiar Nasima on 09-27-2024 Microscopic observation Gram stain Nom (Unsp spec) [facility] Microbial respiratory cultur eOrdered By: NAREN Patience Nasima on 09-27-2024 Microorganism identified Cx Nom (Unsp spec) Streptococcus pneumoniae Abnormal [facility] Microorganism identified Cx Nom (Unsp spec)Ordered By: NAREN Patienceankit Del Real on 09-27-2024 Respiratory Culture Streptococcus pneumoniae Abnormal [facility] AFP, Tumor Markeron 09-06-19 25 AFP TUMOR OSVALDO 3.1 ng/mL Normal 0.0-9.2 [facility] Comment on above: Order Comment: POLICY SERVICES REPRESENTATIVE.CHAD UFCHUCKIE ORDERED QTFNALL OTHER LAB POLICY SERVICES REPRESENTATIVE.CGRAHAMN Result Comment: [employer] Electrochemiluminescence Immunoassay (ECLIA) Values obtained with different assay methods or kits cannot be used interchangeably. Results cannot be interpreted as absolute evidence of the presence or absence of malignant disease. This test is not interpretable in females. Performed at: [facility] [id number] Oil Dispenser: Ramsey Oleary PhD, Phone: [phone] Performed By: #### M 100.2400, M100.1999 #### [facility] [address] [place], [place], [address] HCG BETA-SUBUNIT QUANT.on HCG B-SUBUNIT 2 mIU/mL Normal . [facility] Comment on above: Order Comment: DX ME DIASTINAL MASSNP.CHADUFCHUCKIE ORDERED QTFNALL OTHER LAB POLICY SERVICES REPRESENTATIVE.CGRAHAM Result Comment: Fema le (Non-) 0 - 5 (Postmenopausal) 0 - 8 Female () Weeks of Gestation 3 6 - 71 4 10 - 750 5 205 - 2725 6 453 - 57035 7 1922 -357362 8 41101 -612700 9 486544 -736408 10 68483 -585542 12 31060 -324432 14 46658 - 87545 15 82758 - 39810 16 6683 - 68007 17 4330 - 34399 18 0771 - 16976 [employer] ECLIA methodology Performed at: [facility] [id number] Oil Dispenser: Ramsey Oleary PhD, Phone: [phone] Performed By: #### M 100.2400, M1.1999 #### [facility] [address] [place], [address] Quantiferon TB-Gold+on 09-06 QFT MITOGEN KINGA > 10.00 Normal . [facility] Comment on above: Order Comment: POLICY SERVICES REPRESENTATIVE.LR UFENER ORDERED QTFNALL OTHER LAB POLICY SERVICES REPRESENTATIVE.CGRAHAMN Performed By: #### M 100.2400, M1.1999 #### [facility] [address] [place], [address] QFT NIL VALUE 0.06 IU/mL Normal . [facility] Comment on above: Order Comment: POLICY SERVICES REPRESENTATIVE.LR UFENER ORDERED QTFNALL OTHER LAB POLICY SERVICES REPRESENTATIVE.CGRAHAMN Performed By: #### M 100.2400, .1999 #### [facility] [address] [place], [address] QFT TB GOLD+ Comment Normal . [facility] Comment on above: Order Comment: POLICY SERVICES REPRESENTATIVE.LR UFENER ORDERED QTFNALL OTHER LAB POLICY SERVICES REPRESENTATIVE.CGRAHAMN Result Comment: Jesus tiFERON-TB Gold Plus is a qualitative indirect test for M tuberculosis infection (including disease) and is intended for use in conjunction with risk assessment, radiography, and other medical and diagnostic evaluations. The QuantiFERON-TB Gold Plus result is determined by subtracting the Nil value from either TB antigen (Ag) value. The Mitogen tube serves as a control for the test. Performed By: #### M 100.2400, M100.1999 #### [facility] [address] [place], [address] QFT TB POS CRIT Negative Normal Negative [facility] Comment on above: Order Comment: POLICY SERVICES REPRESENTATIVE.LR UFENER ORDERED QTFNALL OTHER LAB POLICY SERVICES REPRESENTATIVE.CGRAHAMN Result Comment: No r esponse to M tuberculosis antigens detected. Infection with M tuberculosis is unlikely, but high risk individuals should be considered for additional testing (ATS/IDSA/CDC Clinical Practice Guidelines, 2017). The reference range is an Antigen minus Nil result of <0.35 IU/mL. The specimen received for QuantiFERON testing was incubated by the ordering institution. Specific procedures outlined in our Directory of Services and in the package insert for the QuantiFERON Gold (In Tube) test must be followed to enable for proper stimulation of cells for the production of interferon gamma. Chemiluminescence immunoassay methodology Performed By: #### M 100.2400, M100.1999 #### [facility] [address] [place], [address] QFT TB1+ AG KINGA 0.07 IU/mL Normal . [facility] Comment on above: Order Comment: POLICY SERVICES REPRESENTATIVE.CHAD COX ORDERED QTFNALL OTHER LAB POLICY SERVICES REPRESENTATIVE.CGRAHAMN Performed By: #### M 100.2400, M100.1999 #### [facility] [address] [place], [address] QFT TB2+ AG KINGA 0.06 IU/mL Normal . [facility] Comment on above: Order Comment: POLICY SERVICES REPRESENTATIVE.CHAD COX ORDERED QTFNALL OTHER LAB POLICY SERVICES REPRESENTATIVE.CGRAHAMN Performed By: #### M 100.2400, M1.1999 #### [facility] [address] [place], [address] Absolute lymphocyte countOrd ered By: NAREN Del Real on 09-04-2024 Lymphocytes Auto (Unsp spec) [#/Vol] 2.99 10*3/uL 0.83-4.51 [facility] Absolute neutrophil countOrd ered By: NAREN Del Real on 09-04-2024 Neutrophils (Bld) [#/Vol] 4.1 10*3/uL 2.0-7.7 [facility] Alpha fetoprotein measuremen t as tumor markerOrdered By: NAREN Del Real on 09-04-2024 Tumor Marker Alpha Fetoprotein 3.1 ng/mL 0.0-9.2 [facility] Comment on above: [employer] El ectrochemiluminescence Immunoassay(ECLIA)Values obtained with different assay methods or kits cannotbe used interchangeably. Results cannot be interpreted asabsolute evidence of the presence or absence of malignantdisease.This test is not interpretable in females.Performed at: [facility] [id number] Director: Ramsey Oleary PhD, Phone: [phone] Automated blood erythrocyte countOrdered By: NAREN Patienceankit Del Real on 09-04-2024 RBC (Bld) [#/Vol] 4.45 10*6/uL Normal 4.2-5.4 [facility] Comment on above: Order Comment: POLICY SERVICES REPRESENTATIVE.CHAD COX ORDERED QTFN ALL OTHER LAB POLICY SERVICES REPRESENTATIVE.CGRAHAM Performed By: #### L 500.2500, L100.0100, L504.2610, L3100.5140, L100.9950, L3300.0700, L501.6710, L500.3400, L3400.8000 #### [facility] [address] [place], [place], [id number] Automated blood hematocrit ( percentage)Ordered By: NAREN Del Real on 09-04-2024 Hematocrit (Bld) [Volume fraction] 36.8 % Low 37-47 [facility] Comment on above: Order Comment: POLICY SERVICES REPRESENTATIVE.CHAD UFENER ORDERED QTFN ALL OTHER LAB POLICY SERVICES REPRESENTATIVE.CGRAHAM Performed By: #### L 500.2500, L100.0100, L504.2610, L3100.5140, L100.9950, L3300.0700, L501.6710, L500.3400, L3400.8000 #### [facility] [address] [place], [place], [address] Automated lymphocyte count a s percentage of total leukocytesOrdered By: NAREN Del Real on 09-04-2024 Lymphocytes/100 WBC (Bld) 38.3 % Normal 19-41 [facility] Comment on above: Order Comment: POLICY SERVICES REPRESENTATIVE.CHAD UFENER ORDERED QTFN ALL OTHER LAB POLICY SERVICES REPRESENTATIVE.CGRAHAM Performed By: #### L 500.2500, L100.0100, L504.2610, L3100.5140, L100.9950, L3300.0700, L501.6710, L500.3400, L3400.8000 #### [facility] [address] [place], [address] Lymphocytes/100 WBC Auto (Unsp spec) 38.3 % 19-41 [facility] Basic Metabolic Profile (BMP )on 09-04-2024 BUN/CRE 11.1 RATIO Normal 10-20 [facility] Comment on above: Order Comment: POLICY SERVICES REPRESENTATIVE.LR UFENER ORDERED QTFNALL OTHER LAB POLICY SERVICES REPRESENTATIVE.CGRAHAM1 Performed By: #### M 100.2400, M100.1999 #### [facility] [address] [place], [address] CA,Total 8.8 mg/dL Normal 8.5-10.1 [facility] Comment on above: Order Comment: POLICY SERVICES REPRESENTATIVE.LR UFENER ORDERED QTFNALL OTHER LAB POLICY SERVICES REPRESENTATIVE.CGRAHAM1 Performed By: #### M 100.2400, M1.1999 #### [facility] [address] [place], [address] EST GFR - AA 96 mL/min Normal >60 [facility] Comment on above: Order Comment: POLICY SERVICES REPRESENTATIVE.LR UFENER ORDERED QTFNALL OTHER LAB POLICY SERVICES REPRESENTATIVE.CGRAHAM1 Result Comment: Afri can Mexican GFR Calc Performed By: #### M 100.2400, M100.1999 #### [facility] [address] [place], [address] GAP 6 Normal 5-15 [facility] Comment on above: Order Comment: POLICY SERVICES REPRESENTATIVE.LR UFENER ORDERED QTFNALL OTHER LAB POLICY SERVICES REPRESENTATIVE.CGRAHAM1 Performed By: #### M 100.2400, M100.1999 #### [facility] [address] [place], [address] Basophil percentageOrdered B y: POLICY SERVICES REPRESENTATIVE Patienceankit Del Real on 09-04-2024 Basophils/100 WBC (Bld) 1.2 % High 0-1 [facility] Comment on above: Order Comment: POLICY SERVICES REPRESENTATIVE.LR UFENER ORDERED QTFN ALL OTHER LAB POLICY SERVICES REPRESENTATIVE.CGRAHAM Performed By: #### L 500.2500, L100.0100, L504.2610, L3100.5140, L100.9950, L3300.0700, L501.6710, L500.3400, L3400.8000 #### [facility] [address] [place], [address] Bilirubin directOrdered By: NAREN Del Real on 09-04-2024 Bilirubin.direct [Mass/Vol] mg/dL 0.00-0.30 [facility] Bilirubin, totalOrdered By: NAREN Del Real on 09-04-2024 Bilirubin [Mass/Vol] 0.30 mg/dL Normal 0.20-1.00 [facility] Comment on above: For patients on eltr ombopag therapy, use of Dimension Dougherty TBIL is not recommended. Order Comment: POLICY SERVICES REPRESENTATIVE.CHAD COX ORDERED QTFNALL OTHER LAB POLICY SERVICES REPRESENTATIVE.CGRISHI1 Result Comment: For patients on eltrombopag therapy, use of Dimension Dougherty TBIL is not recommended. Performed By: #### M 100.2400, M100.2000 #### [facility] [address], [place], [id number] Bilirubin.direct [Mass/Vol]O rdered By: NAREN Del Real on 09-04-2024 Direct Bilirubin < 0.05 mg/dL 0.00-0.30 [facility] Blood urea nitrogen (BUN)/cr eatinine ratioOrdered By: NAREN Del Real on 09-04-2024 Urea nitrogen/Creatinine [Mass ratio] 11.1 mg/mg 10-20 [facility] C-reactive protein measureme nt by high sensitivity methodOrdered By: NAREN Del Real on 09-04-2024 C-Reactive Protein Extended Range 3.30 mg/L High 0.0-3.0 [facility] Comment on above: C-Reactive Protein ( CRP) provides useful information for thediagnosis, therapy and monitoring of inflammatory processesand associated diseases. For the evaluation of Relative Riskfor Cardiovascular Disease, a High Sensitivity CRP (HSCRP)should be ordered. C-reactive protein measurement by high sensitivity method 3.30 mg/L High 0.0-3.0 [facility] Comment on above: C-Reactive Protein ( CRP) provides useful information for thediagnosis, therapy and monitoring of inflammatory processesand associated diseases. For the evaluation of Relative Riskfor Cardiovascular Disease, a High Sensitivity CRP (HSCRP)should be ordered. CBC W/Diff, Automatedon 08-21 Absolute Lymph 2.99 X10 3/uL Normal 0.83-4.51 [facility] Comment on above: Order Comment: POLICY SERVICES REPRESENTATIVE.LR UFENER ORDERED QTFN ALL OTHER LAB POLICY SERVICES REPRESENTATIVE.CGRAHAM Performed By: #### L 500.2500, L100.0100, L504.2610, L3100.5140, L100.9950, L3300.0700, L501.6710, L500.3400, L3400.8000 #### [facility] [address] [place], [place], [id number] Absolute Neut 4.1 X10 3/uL Normal 2.0-7.7 [facility] Comment on above: Order Comment: POLICY SERVICES REPRESENTATIVE.LR UFENER ORDERED QTFN ALL OTHER LAB POLICY SERVICES REPRESENTATIVE.CGRAHAM Performed By: #### L 500.2500, L100.0100, L504.2610, L3100.5140, L100.9950, L3300.0700, L501.6710, L500.3400, L3400.8000 #### [facility] [address] [place], [address] IG% 0.300 Normal 0.0-0.9 [facility] Comment on above: Order Comment: POLICY SERVICES REPRESENTATIVE.LR UFENER ORDERED QTFN ALL OTHER LAB POLICY SERVICES REPRESENTATIVE.CGRAHAM Result Comment: IG% - Immature Granulocytes (promyelocytes, myelocytes and metamyelocytes) > 1% indicates that a LEFT SHIFT is Present. Performed By: #### L 500.2500, L100.0100, L504.2610, L3100.5140, L100.9950, L3300.0700, L501.6710, L500.3400, L3400.8000 #### [facility] [address] [place], [address] Nucleated RBC (Bld) [#/Vol] 0 10*3/uL Normal 0-5 [facility] Comment on above: Order Comment: POLICY SERVICES REPRESENTATIVE.LR UFENER ORDERED QTFN ALL OTHER LAB POLICY SERVICES REPRESENTATIVE.CGRAHAM Performed By: #### L 500.2500, L100.0100, L504.2610, L3100.5140, L100.9950, L3300.0700, L501.6710, L500.3400, L3400.8000 #### [facility] [address] [place], [address] RDW SD 40.9 fl Normal 35.1-43.9 [facility] Comment on above: Order Comment: POLICY SERVICES REPRESENTATIVE.LR UFENER ORDERED QTFN ALL OTHER LAB POLICY SERVICES REPRESENTATIVE.CGRAHAM Performed By: #### L 500.2500, L100.0100, L504.2610, L3100.5140, L100.9950, L3300.0700, L501.6710, L500.3400, L3400.8000 #### [facility] [address] [place], [address] CRPon 09-04-2024 C-REACTIVE PROT 3.30 mg/L High 0.0-3.0 [facility] Comment on above: Order Comment: POLICY SERVICES REPRESENTATIVE.LR UFENER ORDERED QTFNALL OTHER LAB POLICY SERVICES REPRESENTATIVE.CGRAHAM1 Result Comment: C-Re active Protein (CRP) provides useful information for the diagnosis, therapy and monitoring of inflammatory processes and associated diseases. For the evaluation of Relative Risk for Cardiovascular Disease, a High Sensitivity CRP (HSCRP) should be ordered. Performed By: #### M 100.2400, M100.2000 #### [facility] [address] [place], [place], [address] Carbon dioxide measurementOr dered By: NAREN Del Real on 09-04-2024 CO2 [Moles/Vol] 30.0 mmol/L Normal 21.0-32.0 [facility] Comment on above: Order Comment: POLICY SERVICES REPRESENTATIVE.LR UFENER ORDERED QTFNALL OTHER LAB POLICY SERVICES REPRESENTATIVE.CGRAHAM1 Performed By: #### M 100.2400, M100.1999 #### [facility] [address] [place], [place], [address] Chloride measurementOrdered By: NAREN Del Real on 09-04-2024 Chloride [Moles/Vol] 105 mmol/L Normal 98-107 [facility] Comment on above: Order Comment: POLICY SERVICES REPRESENTATIVE.LR UFENER ORDERED QTFNALL OTHER LAB POLICY SERVICES REPRESENTATIVE.CGRAHAM1 Performed By: #### M 100.2400, M100.1999 #### [facility] [address] [facility] [place], [place], [address] Eosinophil percentageOrdered By: NAREN Del Real on 09-04-2024 Eosinophils/100 WBC (Bld) 0.8 % Normal 0-5 [facility] Comment on above: Order Comment: POLICY SERVICES REPRESENTATIVE.LR UFENER ORDERED QTFN ALL OTHER LAB POLICY SERVICES REPRESENTATIVE.CGRAHAM Performed By: #### L 500.2500, L100.0100, L504.2610, L3100.5140, L100.9950, L3300.0700, L501.6710, L500.3400, L3400.8000 #### [facility] [address] [place], [place], [address] Erythrocyte distribution wid th ratioOrdered By: NAREN Del Real on 09-04-2024 Erythrocyte distribution width (RBC) [Ratio] 13.6 % Normal 11.6-14.6 [facility] Comment on above: Order Comment: POLICY SERVICES REPRESENTATIVE.LR UFENER ORDERED QTFN ALL OTHER LAB POLICY SERVICES REPRESENTATIVE.CGRAHAM Performed By: #### L 500.2500, L100.0100, L504.2610, L3100.5140, L100.9950, L3300.0700, L501.6710, L500.3400, L3400.8000 #### [facility] [address] [place], [place], [address] Erythrocyte distribution wid th standard deviationOrdered By: NAREN Sanchezfenmanuel on 09-04-2024 Erythrocyte distribution width (RBC) [Entitic vol] 40.9 fL 35.1-43.9 [facility] Erythrocyte distribution width (RBC) [Ratio] 40.9 fl 35.1-43.9 [facility] Estimated glomerular filtrat ion rate (GFR) AmericanOrdered By: NAREN Del Real on 09-04-2024 Estimated GFR (MDRD) Amer 96 mL/min >60 [facility] Comment on above: GFR Calc Glomerular filtration rate ( GFR) estimationOrdered By: NAREN Del Real on 09-04-2024 GFR/1.73 sq M.predicted among non-blacks MDRD (S/P/Bld) [Vol rate/Area] 79 mL/min/{1.73_m2} Normal >60 [facility] Comment on above: Non- GFR Calc Order Comment: WILLIAM UFENER ORDERED QTFNALL OTHER LAB POLICY SERVICES REPRESENTATIVE.CGRAHAM1 Result Comment: Non- GFR Calc Performed By: #### M 100.2400, M1.1999 #### [facility] [address] [place], [place], [address] Estimated GFR (MDRD) Non-Af Amer 79 mL/min >60 [facility] Comment on above: Non- GFR Calc Glucose measurementOrdered B y: NAREN Patience Nasima on 09-04-2024 Glucose [Mass/Vol] 137 mg/dL High 74-106 [facility] Comment on above: Fasting Glucose resu lt greater than or equal to 126 mg/dL suggests DIABETES MELLITUS per A.D.A. criteria. Order Comment: NAREN.LR UFENER ORDERED QTFNALL OTHER LAB POLICY SERVICES REPRESENTATIVE.CGRAHAM1 Result Comment: Fast ing Glucose result greater than or equal to 126 mg/dL suggests DIABETES MELLITUS per A.D.A. criteria. Performed By: #### M 100.2400, M100.1999 #### [facility] [address] [place], [place], [address] HCG, beta, subunitOrdered By : NAREN Patience Danielnataliyamanuel on 09-04-2024 HCG Beta Subunit 2 mIU/mL . [facility] Comment on above: Female (Non- ) 0 - 5 (Postmenopausal) 0 - 8 Female () Weeks of Gestation 3 6 - 71 4 10 - 750 5 217 - 7138 6 158 - 42123 7 3697 -771316 8 39467 -594985 9 31109 -956241 10 32184 -474955 12 90581 -866757 14 34909 - 48704 15 38964 - 59836 16 9894 - 54647 17 4688 - 64868 18 8099 - 78145Hqyer ECLIA methodologyPerformed at: [facility] [id number] Director: Ramsey Oleary PhD, Phone: [phone] HCG, beta, subunit 2 mIU/mL . [facility] Comment on above: Female (Non- ) 0 - 5 (Postmenopausal) 0 - 8 Female () Weeks of Gestation 3 6 - 71 4 10 - 750 5 217 - 7138 6 158 - 75005 7 3697 -719907 8 39804 -362476 9 31026 -558698 10 09420 -807893 12 53774 -388824 14 95347 - 75885 15 65781 - 49528 16 1697 - 03436 17 2063 - 84896 18 2275 - 74344Txvvm ECLIA methodologyPerformed at: [facility] [id number] Director: Ramsey Oleary PhD, Phone: [phone] Hemoglobin (Reticulocytes) [ Entitic mass]Ordered By: NAREN Del Real on 09-04-2024 Reticulocyte Hemoglobin Equivalent 31.5 pg 30-35 [facility] Hemoglobin measurementOrdere d By: NAREN Del Real on 09-04-2024 Hemoglobin (Bld) [Mass/Vol] 12.4 g/dL Normal 12.0-15.0 [facility] Comment on above: Order Comment: WILLIAM COX ORDERED QTFN ALL OTHER LAB POLICY SERVICES REPRESENTATIVE.KATHIE Performed By: #### L 500.2500, L100.0100, L504.2610, L3100.5140, L100.9950, L3300.0700, L501.6710, L500.3400, L3400.8000 #### [facility] [address] [place], [address] Immature granulocytes/100 WB C Auto (Bld)Ordered By: NAREN Patience DelR eal on 09-04-2024 Immature granulocytes/100 WBC (Bld) 0.300 % 0.0-0.9 [facility] Comment on above: IG% - Immature Granu locytes (promyelocytes, myelocytes and metamyelocytes) > 1% indicates that a LEFT SHIFT is Present. Immature reticulocyte fracti onOrdered By: NAREN Patience Del Real on 09-04-2024 Immature Reticulocyte Fraction 1.10 % Low 3.00-15.90 [facility] LDHon 09-04-2024 LDH 164 U/L Normal 84-246 [facility] Comment on above: Order Comment: POLICY SERVICES REPRESENTATIVE.CHAD [facility] ORDERED QTFNALL OTHER LAB POLICY SERVICES REPRESENTATIVE.CGRAHAM1 Performed By: #### M 100.2400, #### [facility] [address] [place], [address] Lactate dehydrogenase (LDH) measurementOrdered By: NAREN Patience Del Real on 09-04-2024 LDH [Catalytic activity/Vol] 164 U/L 84-246 [facility] Liver Profileon 09-04-2024 ALK P 106 U/L Normal 45-117 [facility] Comment on above: Order Comment: POLICY SERVICES REPRESENTATIVE.CHAD UFENER ORDERED QTFNALL OTHER LAB POLICY SERVICES REPRESENTATIVE.CGRAHAM1 Performed By: #### M 100.2400, #### [facility] [address] [place], [address] D BILI < 0.05 Normal 0.00-0.30 [facility] Comment on above: Order Comment: POLICY SERVICES REPRESENTATIVE.CHAD UFENER ORDERED QTFNALL OTHER LAB POLICY SERVICES REPRESENTATIVE.CGRAHAM1 Performed By: #### M 100.2400, #### [facility] [address] [place], [address] T PROT 6.8 g/dL Normal 6.4-8.2 [facility] Comment on above: Order Comment: POLICY SERVICES REPRESENTATIVE.CHAD COX ORDERED QTFNALL OTHER LAB POLICY SERVICES REPRESENTATIVE.CGRAHAM1 Performed By: #### M 100.2400, M1.1999 #### [facility] [address] [place], [address] Liver ProfileOrdered By: NAREN Del Real on 09-04-2024 AST [Catalytic activity/Vol] 17 U/L Normal 15-37 [facility] Comment on above: Order Comment: POLICY SERVICES REPRESENTATIVE.CHAD COX ORDERED QTFNALL OTHER LAB POLICY SERVICES REPRESENTATIVE.CGRAHAM1 Performed By: #### M 100.2400, #### [facility] [address] [place], [address] Lymphocytes Auto (Unsp spec) [#/Vol]Ordered By: NAREN Del Real on 09-04-2024 Lymphocytes (Bld) [#/Vol] 2.99 10*3/uL 0.83-4.51 [facility] M. tuberculosis tuberculin s gildardo IFN-g Ql (Bld)Ordered By: NAREN Del Real on 09-04-2024 TB Test (QFT) Antigen 1 0.07 IU/mL . [facility] MCV (mean corpuscular volume ) determinationOrdered By: NAREN Del Real on 09-04-2024 MCV (RBC) [Entitic vol] 82.7 fL Normal 81-99 [facility] Comment on above: Order Comment: POLICY SERVICES REPRESENTATIVE.CHAD COX ORDERED QTFN ALL OTHER LAB POLICY SERVICES REPRESENTATIVE.CGRAHAM Performed By: #### L 500.2500, L100.0100, L504.2610, L3100.5140, L100.9950, L3300.0700, L501.6710, L500.3400, L3400.8000 #### [facility] [address] [place], [address] Mean corpuscular hemoglobin (MCH) determinationOrdered By: NAREN Del Real on 09-04-2024 MCH (RBC) [Entitic mass] 27.9 pg Normal 27.0-32.0 [facility] Comment on above: Order Comment: POLICY SERVICES REPRESENTATIVE.LR UFENER ORDERED QTFN ALL OTHER LAB POLICY SERVICES REPRESENTATIVE.CGRAHAM Performed By: #### L 500.2500, L100.0100, L504.2610, L3100.5140, L100.9950, L3300.0700, L501.6710, L500.3400, L3400.8000 #### [facility] [address], [place], [phone] ([phone] Mean corpuscular hemoglobin concentration (MCHC) determinationOrdered By: POLICY SERVICES REPRESENTATIVE Patience Del Real on 09-04-2024 MCHC (RBC) [Mass/Vol] 33.7 g/dL Normal 32-36 [facility] Comment on above: Order Comment: POLICY SERVICES REPRESENTATIVE.LR UFENER ORDERED QTFN ALL OTHER LAB POLICY SERVICES REPRESENTATIVE.CGRAHAM Performed By: #### L 500.2500, L100.0100, L504.2610, L3100.5140, L100.9950, L3300.0700, L501.6710, L500.3400, L3400.8000 #### [facility] [address], [place], [phone] (288 Mean platelet volume determi nationOrdered By: NAREN Patience Del Real on 09-04-2024 Platelet mean volume (Bld) [Entitic vol] 9.0 fL Normal 6.2-12.0 [facility] Comment on above: Order Comment: POLICY SERVICES REPRESENTATIVE.LR UFENER ORDERED QTFN ALL OTHER LAB POLICY SERVICES REPRESENTATIVE.CGRAHAM Performed By: #### L 500.2500, L100.0100, L504.2610, L3100.5140, L100.9950, L3300.0700, L501.6710, L500.3400, L3400.8000 #### [facility] [address], [place], [phone] ([phone] Monocyte percentageOrdered B y: NAREN Patience Dovemanuel on 09-04-2024 Monocytes/100 WBC (Bld) 7.0 % Normal 0-10 [facility] Comment on above: Order Comment: POLICY SERVICES REPRESENTATIVE.LR UFENER ORDERED QTFN ALL OTHER LAB POLICY SERVICES REPRESENTATIVE.CGRAHAM Performed By: #### L 500.2500, L100.0100, L504.2610, L3100.5140, L100.9950, L3300.0700, L501.6710, L500.3400, L3400.8000 #### [facility] [address] [place], [place], [phone] (689) Neutrophil percentageOrdered By: NAREN Del Real on 09-04-2024 Neutrophils/100 WBC (Bld) 52.4 % Normal 47-70 [facility] Comment on above: Order Comment: POLICY SERVICES REPRESENTATIVE.CHAD UFENER ORDERED QTFN ALL OTHER LAB POLICY SERVICES REPRESENTATIVE.CGRAHAM Performed By: #### L 500.2500, L100.0100, L504.2610, L3100.5140, L100.9950, L3300.0700, L501.6710, L500.3400, L3400.8000 #### [facility] [address] [place], [place], [phone] (767) Nucleated red blood cell per centageOrdered By: NAREN Del Real on 09-04-2024 Nucleated RBC/100 WBC (Bld) [Ratio] 0 % 0-5 [facility] Platelet countOrdered By: NAREN Del Real on 09-04-2024 Platelets (Bld) [#/Vol] 513 10*3/uL High 150-450 [facility] Comment on above: Order Comment: POLICY SERVICES REPRESENTATIVE.LR UFENER ORDERED QTFN ALL OTHER LAB POLICY SERVICES REPRESENTATIVE.CGRAHAM Performed By: #### L 500.2500, L100.0100, L504.2610, L3100.5140, L100.9950, L3300.0700, L501.6710, L500.3400, L3400.8000 #### [facility] [address] [place], [place], [phone] Potassium measurementOrdered By: NAREN Del Real on 01-15-2025 Potassium [Moles/Vol] 3.6 mmol/L Normal 3.5-5.1 [facility] Comment on above: Order Comment: WILLIAM COX ORDERED QTFNALL OTHER LAB ANH Performed By: #### M 100.2400, M100.1999 #### [facility] [address] [place], [address] Qualitative QuantiFERON-TB g old in tube testOrdered By: NAREN Del Real on 09-04-2024 M. tuberculosis tuberculin stim IFN-g Ql (Bld) 0.07 IU/mL . [facility] Quantiferon-TB Gold Plus moise tOrdered By: NAREN Del Real on 09-04-2024 TB Test (QFT) Comment . [facility] Comment on above: QuantiFERON-TB Gold Plus is a qualitative indirect test forM tuberculosis infection (including disease) and isintended for use in conjunction with risk assessment,radiography, and other medical and diagnostic evaluations.The QuantiFERON-TB Gold Plus result is determined bysubtracting the Nil value from either TB antigen (Ag)value. The Mitogen tube serves as a control for the test. TB Test (QFT) Antigen 2 0.06 IU/mL . [facility] TB Test (QFT) Mitogen > 10.00 IU/mL . [facility] TB Test (QFT) Nil 0.06 IU/mL . [facility] TB Test (QFT) Positive Criteria Negative Negative [facility] Comment on above: No response to M tub erculosis antigens detected.Infection with M tuberculosis is unlikely, but high riskindividuals should be considered for additional testing(ATS/IDSA/CDC Clinical Practice Guidelines, 2017). Thereference range is an Antigen minus Nil result of <0.35IU/mL.The specimen received for QuantiFERON testing was incubatedby the ordering institution. Specific procedures outlinedin our Directory of Services and in the package insert forthe QuantiFERON Gold (In Tube) test must be followed toenable for proper stimulation of cells for the productionof interferon gamma. Chemiluminescence immunoassaymethodology Retic Panelon 09-04-2024 IM RET FRACTION 1.10 Low 3.00-15.90 [facility] Comment on above: Order Comment: POLICY SERVICES REPRESENTATIVE.LR UFENER ORDERED QTFNALL OTHER LAB POLICY SERVICES REPRESENTATIVE.CGRAHAM Performed By: #### M 100.2400, .1999 #### [facility] [address] [place], [address] RET-HE 31.5 pg Normal 30-35 [facility] Comment on above: Order Comment: POLICY SERVICES REPRESENTATIVE.LR UFENER ORDERED QTFNALL OTHER LAB POLICY SERVICES REPRESENTATIVE.CGRAHAM Performed By: #### M 100.2400, .1999 #### [facility] [address] [place], [address] Retic Count 0.46 Low 0.5-1.5 [facility] Comment on above: Order Comment: POLICY SERVICES REPRESENTATIVE.LR UFENER ORDERED QTFNALL OTHER LAB POLICY SERVICES REPRESENTATIVE.CGRAHAM Performed By: #### M 100.2400, #### [facility] [address] [place], [address] Reticulocyte hemoglobin equi valent (RET-He) measurementOrdered By: NAREN Del Real on 09-04-2024 Hemoglobin (Reticulocytes) [Entitic mass] 31.5 pg 30-35 [facility] Reticulocytes Auto (Bld) [#/ Vol]Ordered By: NAREN Del Real on 09-04-2024 Reticulocyte Count 0.46 % Low 0.5-1.5 [facility] Reticulocytes/100 RBC (Bld) 0.46 % Low 0.5-1.5 [facility] Serum anion gap measurementO rdered By: NAREN Del Real on 09-04-2024 Anion gap [Moles/Vol] 6 mmol/L 5-15 [facility] Serum globulin measurementOr dered By: NAREN Del Real on 09-04-2024 Globulin (S) [Mass/Vol] 3.2 g/dL Normal 2.2-4.2 [facility] Comment on above: Order Comment: POLICY SERVICES REPRESENTATIVE.LR UFENER ORDERED QTFNALL OTHER LAB POLICY SERVICES REPRESENTATIVE.CGRISHI1 Performed By: #### M 100.2400, #### [facility] [address], [address] Serum or plasma alanine ruby otransferase (ALT) measurementOrdered By: NAREN Patience Nasima on 09-04-2024 ALT [Catalytic activity/Vol] 22 U/L Normal 13-56 [facility] Comment on above: Order Comment: POLICY SERVICES REPRESENTATIVE.LR UFENER ORDERED QTFNALL OTHER LAB POLICY SERVICES REPRESENTATIVE.CGRAHAM1 Performed By: #### M 100.2400, M100 #### [facility] [address] [place], [address] Serum or plasma albumin sanford urement (mass/volume)Ordered By: NAREN Del Real on 09-04-2024 Albumin [Mass/Vol] 3.6 g/dL Normal 3.2-5.0 [facility] Comment on above: Order Comment: POLICY SERVICES REPRESENTATIVE.LR UFENER ORDERED QTFNALL OTHER LAB POLICY SERVICES REPRESENTATIVE.CGRAHAM1 Performed By: #### M 100.2400, M1 #### [facility] [address] [place], [place], [id number] Serum or plasma alkaline neftali sphatase measurementOrdered By: NAREN Del Real on 09-04-2024 ALP [Catalytic activity/Vol] 106 U/L 45-117 [facility] Serum or plasma calcium sanford urement (mass/volume)Ordered By: NAREN Del Real on 09-04-2024 Calcium [Mass/Vol] 8.8 mg/dL 8.5-10.1 [facility] Serum or plasma creatinine m easurement (mass/volume)Ordered By: NAREN Del Real on 09-04-2024 Creatinine [Mass/Vol] 0.81 mg/dL Normal 0.55-1.02 [facility] Comment on above: The validity of the calculated GFR & GFRAA in patients over 70 years has not been determined. Clinical correlation is essential. Order Comment: POLICY SERVICES REPRESENTATIVE.LR UFENER ORDERED QTFNALL OTHER LAB POLICY SERVICES REPRESENTATIVE.CGRAHAM1 Result Comment: The validity of the calculated GFR GFRAA in patients over 70 years has not been determined. Clinical correlation is essential. Performed By: #### M 100.2400, #### [facility] [address] [place], [place], [address] Serum or plasma urea nitroge n measurement (mass/volume)Ordered By: NAREN Patience Dovemanuel on 09-04-2024 Urea nitrogen [Mass/Vol] 9 mg/dL Normal 7-18 [facility] Comment on above: Order Comment: POLICY SERVICES REPRESENTATIVE.LR UFENER ORDERED QTFNALL OTHER LAB POLICY SERVICES REPRESENTATIVE.CGRAHAM1 Performed By: #### M 100.2400, #### [facility] [address] [place], [place], [id number] Sodium levelOrdered By: NAREN Peck rainlionel Sancheznataliyamanuel on 09-04-2024 Sodium [Moles/Vol] 140 mmol/L Normal 136-145 [facility] Comment on above: Order Comment: POLICY SERVICES REPRESENTATIVE.LR UFENER ORDERED QTFNALL OTHER LAB POLICY SERVICES REPRESENTATIVE.CGRAHAM1 Performed By: #### M 100.2400, #### [facility] [address] [place], [place], [id number] Total proteinOrdered By: NAREN Patience Dovemanuel on 09-04-2024 Protein [Mass/Vol] 6.8 g/dL 6.4-8.2 [facility] White blood cell (WBC) count Ordered By: NAREN Patience Danielnataliyamanuel on 09-04-2024 WBC (Bld) [#/Vol] 7.8 10*3/uL Normal 4.4-11.0 [facility] Comment on above: Order Comment: POLICY SERVICES REPRESENTATIVE.LR UFENER ORDERED QTFN ALL OTHER LAB POLICY SERVICES REPRESENTATIVE.CGRAHAM Performed By: #### L 500.2500, L100.0100, L504.2610, L3100.5140, L100.9950, L3300.0700, L501.6710, L500.3400, L3400.8000 #### [facility] [address] [place], [place], [id number] PET/CT Tumor Base -Thigh Ini ton 09-03-2024 PET/CT Tumor Base -Thigh Init [facility] Imaging Services [address] [place], [place] [id number] PET/CT Tumor Base -Thigh Init MR#: [id number] Acct: [id number] Name: OFE GIMENEZ Rep #: [id number] : 1975 F 49 From: Umberto Phillips PCP: Dr. Yarelis Fitzpatrick, DO Status: REG CLI Study: PET/CT Tumor Base -Thigh Init Date of Exam: Exam# [id number] Ordering Dr: Patience Del Real POLICY SERVICES REPRESENTATIVE- C [id number] EXAMINATION: FDG-PET/CT ? INDICATIONS: 49-year-old female with a history of pulmonary nodularity presenting for initial evaluation. ? COMPARISON EXAMINATION: CT of the chest 08/28/2024 ? INDEX LESION SIZE SUV INTERPRETATION Right lung-right upper lobe 10.9 mm. 9.8 Fulfills quantitative criteria for viable neoplasm, histopathologic analysis recommended ? TECHNIQUE: Following the intravenous administration of 14.8 mCi of F-18 deoxyglucose via the left hand, multiplanar image acquisitions of the head, neck, chest, abdomen and pelvis to the level of the midthigh, obtained at one-hour post radiopharmaceutical administration contemporaneously interpreted with the current CT of the chest, abdomen and pelvis dated 09/03/2024 via coregistration reveal: ? SERUM GLUCOSE LEVEL:? 64 mg/dL? HEIGHT:?? 66 inches WEIGHT:?? 143 pounds ? FINDINGS: ? HEAD/NECK:? There is no evidence of abnormal increased glucose metabolism in the pharyngeal mucosal space, parapharyngeal space, oropharynx, bilateral-lateral and anterior neck, hypopharynx and distribution of the larynx. ? The visualized portion of the cerebral cortical-subcortical structures demonstrate symmetric and preserved glucose metabolism. ? CHEST: Facilitated FDG concentration is defined in the right upper anteromedial lung zone, right upper lobe generating a calculated standard uptake value of 9.8.? The maximal axial diameter of the metabolic abnormality is 10.9 mm.? ? CT of the chest demonstrates the following anatomic characteristics: ? Atherosclerotic calcification is defined in the thoracic aorta without evidence of dilatation, aneurysm formation.? Additional parenchymal changes noted in the bilateral hemithorax are nonglucose avid.? A hiatal hernia is defined.? Bilateral axillary soft tissue densities are metabolic. ? ABDOMEN/PELVIS:? Normal physiologic distribution of the radiopharmaceutical is identified in the hepatic and splenic parenchyma, both renal units, urinary bladder, and visualized intestinal tract.? Diffuse intestinal tract is identified in all four quadrants of the abdominal-pelvic mesentery. ? CT of the abdomen and pelvis is remarkable for the following: Atherosclerotic calcification is defined in the abdominal aorta without evidence of dilatation, aneurysm formation.? The retained uterus appears anteflexed.? Subcentimeter bilateral inguinal soft tissue densities are ametabolic. ? SKELETAL:? There is no evidence of quantitatively significant enhanced glucose metabolism on meticulous inspection of the appendicular and axial skeletal structures. ? Degenerative changes defined in the thoracic and lumbar spine demonstrate no evidence of increased glucose metabolism. There are no sclerotic, mixed sclerotic-lytic, or primarily lytic changes defined in the axial skeletal structures with evidence of increased FDG uptake. ? PET/PET/CT Tumor Base -Thigh Init IMPRESSION: 1. The increase in FDG concentration manifest in the right upper lung field, right upper lobe, fulfills quantitative criteria for viable neoplasm with single point technique.? Histopathologic analysis is recommended. 2.? No other quantitatively significant hypermetabolic abnormalities are noted. Electronic Signature Umberto Jones D.O. Accurate Quantification of SUVs for this report are calculated using the exclusive [employer]. ([place]. Patent No. [phone] [place] patent [id number]). Standardization and correction of the FDG SUV metric via [employer] technology allow for vendor non-specific objective quantitative examination comparison and optimization of the sensitivity and specificity of the FDG PET-CT examination. [email or web address] Electronically Signed: Umberto Jones DO at 21:14 EST , CC: Dr. Yarelis Fitzpatrick, DO; Patience Del Real NP Doubler Helper: Signed Normal [facility] Pulmonary Visit Reporton Pulmonary Visit Report [facility] [address] [place] [address] OFFICE VISIT Date of Service: 08/30/24 MR#: [id number] Acct: [id number] Name: OFE GIMENEZ Rep #: [id number] : 1975 Provider: Patience Del Real NP Age/Sex: 49/F [place] [facility] [place] Status: Signed Assessment and Plan Assessment and Plan (1) Mass of upper lobe of right lung: Status: Acute Plan: PET/CT now as the size of the lobulated mass in the right upper lobe anterior mediastinum with associated right mediastinal lymphadenopathy and a satellite nodule is suspicious for neoplasm. The patient and her spouse understand the need for testing and are agreeable to proceed. I have explained that if this testing comes back positive that a biopsy would then be recommended and patient is agreeable to this plan. (2) Bronchiectasis: Status: Chronic Qualifiers: Bronchiectasis type: uncomplicated Qualified Code(s): J47.9 - Bronchiectasis, uncomplicated Plan: Bronchiectasis exacerbation is likely, I am recommending a full 14 days of Levaquin. This would also cover the patient for an atypical pneumonia. This could be why a mild right pleural effusion is identified but also malignancy is in the differential. Patient was cautioned about the potential side effects of this antibiotic. I am concerned that she has a suboptimal pulmonary toilet regimen. I have recommended nebulized levalbuterol twice daily followed by PEP therapy and use of 1200 mg of guaifenesin OTC twice daily with a full glass of water. I have changed from albuterol to levalbuterol due to the side effect of jitteriness with use of albuterol. (3) Immunoglobulin deficiency: Status: Chronic Plan: Complicates exam, plan, care and prognosis. Continue to monitor and continue to follow with specialist. The patient understands that if her respiratory symptoms worsen she is to report to the ER. Orders: Orders PET/CT Tumor Base -Thigh Init Today R91.8 - Other nonspecific abnormal finding of lung field Medications: New levalbuterol HCl 0.63 mg (3 mL) inhalation ONCE 90 mL 3RF [nebulizer kits] As directed 1 ea 11RF R91.8 - Other nonspecific abnormal finding of lung field levofloxacin finish out 1st course and then begin this for a total of 14 days 500 mg PO QDAY 7 tabs 0RF R91.8 - Other nonspecific abnormal finding of lung field Discontinued albuterol sulfate 90 mcg/actuation Discontinued Reason: Order Changed 2 puffs inhalation Q6H PRN Plan Details Follow Up: 2 Weeks (LMR) HPI HPI Comments Details: This patient presents to the office today for abnormal findings on CT imaging. She does have a history of bronchiectasis complicated by immunoglobulin deficiency. She is ambulatory and currently on room air. She is accompanied today with her . She has recently been seen by Kimberly Jacobson NP on August 27, 2023. She reports that she had been tired over the weekend and on Monday she was experiencing body aches and chest pain. She also experience headache and reports that the pain in her chest worsened and she went in to see Kimberly on Monday. The patient reports that she was experiencing tingling of her arms and fingertips which she had experienced previously with pneumonia. There was concern for pneumonia versus pleural effusion versus bronchiectasis exacerbation and a chest x-ray was obtained which showed a right hilar mass and the recommendation was to obtain a CT. She was placed on Levaquin 500 mg for 7 days with the consideration to extend for a 14-day course due to her immunodeficiency. Her CRP and WBC were elevated. CT imaging from August 28, 2024 showed a 2.6 cm lobulated soft tissue mass in the medial aspect of the right upper lobe with extension into the anterior mediastinum suspicious for neoplasm. There was adjacent postobstructive pneumonitis or atelectasis with mild soft tissue thickening and bronchiectasis in the right upper lobe airways. There is a 4 mm right upper lobe satellite nodule. Right mild mediastinal lymph and adenopathy. Mild right pleural effusion. Mild left lower lobe groundglass opacities from pneumonitis or atypical pneumonia. The patient indicates that since starting Levaquin her respiratory symptoms have improved. Chest pain has improved and is now only occurring with deep breaths . She continues to be treated by infectious disease/immune specialist for immune deficiency with Hizentra weekly injections. She felt like this did improve her respiratory symptoms initially and that her cough was nonproductive mostly and also reduced. More recently she reports that she has had a constant rattle in my chest since March. She was started on a Z-Carlos in June which helped reduce the congestion. She denies any difficulty with shortness of breath. She denies any wheezing, chest tigh (more content not included)... Normal [facility] Chest WITH Contraston 2024 Chest WITH Contrast [facility] Imaging Services [address] [place] [address] Chest WITH Contrast MR#: [id number] Acct: [id number] Name: OFE GIMENEZ Rep #: [id number] : 1975 F 49 From: Kalpana flowers MD PCP: Dr. Yarelis Fitzpatrick, DO Status: REG CLI Study: Chest WITH Contrast Date of Exam: 08/28/24 Exam# [id number] Ordering Dr: Kimberly Jacobson POLICY SERVICES REPRESENTATIVE-C [id number] HISTORY: Hilar mass, pleural effusion, cxr 08/27 elev. wbc, crp -- STAT. TECHNIQUE: CT of the chest was performed after the intravenous administration of 100 mL Isovue-300. Coronal and sagittal reformatted images. Individualized dose optimization techniques were used for this CT. 801 images. COMPARISON: XR prior day, CT 01/02/2023. FINDINGS: CENTRAL AIRWAYS: Mild dependent fluid in the trachea. LUNGS: Chronic biapical scarring. Soft tissue thickening along the right upper lobe airways with mild bronchiectasis and a 1 x 2.7 cm opacity with volume loss and air bronchograms medially. Adjacent 2.4 x 2.6 cm lobulated mass extending from the medial aspect of the right upper lobe into the anterior mediastinum with mild adjacent mediastinal stranding. 4 mm satellite nodule. Mild right lower lobe atelectasis. New mild left lower lobe groundglass opacities with chronic bronchiectasis and bronchial wall thickening. PLEURA: Mild right pleural effusion. HEART/PERICARDIUM: Heart within normal limits in size. No pericardial effusion. AORTA/VESSELS: No thoracic aortic aneurysm or dissection flap. No large central filling defect identified in the pulmonary arteries. MEDIASTINUM/SHAY: 1.2 x 1.3 cm right paratracheal lymph node. OSSEOUS STRUCTURES: Intact. UPPER ABDOMEN: Mild hiatal hernia. No adrenal mass. CT/Chest WITH Contrast IMPRESSION: 2.6 cm lobulated soft tissue mass in the medial aspect of the right upper lobe with extension into the anterior mediastinum, suspicious for neoplasm. Recommend correlation with PET/CT. Adjacent postobstructive pneumonitis or atelectasis with mild soft tissue thickening and bronchiectasis of the right upper lobe airways. 4 mm right upper lobe satellite nodule. Mild right mediastinal lymphadenopathy. Mild right pleural effusion. Mild left lower lobe groundglass opacities from pneumonitis or atypical pneumonia. Electronically Signed: Kalpana Jessica MD at 12:18 EST , CC: DARRYN Jacobson; Dr. Yarelis Fitzpatrick DO Doubler Helper: Signed Normal [facility] Absolute lymphocyte countOrd ered By: Kimberly Jacobson on 08-27-2024 Lymphocytes Auto (Unsp spec) [#/Vol] 2.69 10*3/uL 0.83-4.51 [facility] Absolute neutrophil countOrd ered By: Kimberly Jacobson on 08-27-2024 Neutrophils (Bld) [#/Vol] 17.4 10*3/uL High 2.0-7.7 [facility] Albumin to globulin ratioOrd ered By: Kimberly Jacobson on 08-27-2024 Albumin/Globulin [Mass ratio] 0.8 {ratio} Low 0.9-2.4 [facility] Bilirubin, totalOrdered By: Kimberly Jacobson on 08-27-2024 Bilirubin [Mass/Vol] 0.40 mg/dL 0.20-1.00 [facility] Comment on above: For patients on eltr ombopag therapy, use of Dimension Dougherty TBIL is not recommended. Blood band neutrophil count as percentage of total leukocytesOrdered By: Kimberly Jacobson on 08-27-2024 Band form neutrophils/100 WBC (Bld) 1 % 0-5 [facility] Blood lymphocytes/100 leukoc ytesOrdered By: Kimberly Jacobson on 08-27-2024 Lymphocytes/100 WBC (Bld) 13 % Low 19-41 [facility] Blood monocytes/100 leukocyt esOrdered By: Kimberly Jacobson on 08-27-2024 Monocytes/100 WBC (Bld) 3 % 0-10 [facility] Blood segmented neutrophils/ 100 leukocytesOrdered By: Kimberly Jacobson on 08-27-2024 Segmented neutrophils/100 WBC (Bld) 83 % High 47-70 [facility] Blood urea nitrogen (BUN)/cr eatinine ratioOrdered By: Kimberly Jacobson on 08-27-2024 Urea nitrogen/Creatinine [Mass ratio] 16.1 mg/mg 10-20 [facility] C-reactive protein measureme nt by high sensitivity methodOrdered By: Kimberly Jacobson on 08-27-2024 C-Reactive Protein Extended Range 52.60 mg/L High 0.0-3.0 [facility] Comment on above: C-Reactive Protein ( CRP) provides useful information for thediagnosis, therapy and monitoring of inflammatory processesand associated diseases. For the evaluation of Relative Riskfor Cardiovascular Disease, a High Sensitivity CRP (HSCRP)should be ordered. C-reactive protein measurement by high sensitivity method 52.60 mg/L High 0.0-3.0 [facility] Comment on above: C-Reactive Protein ( CRP) provides useful information for thediagnosis, therapy and monitoring of inflammatory processesand associated diseases. For the evaluation of Relative Riskfor Cardiovascular Disease, a High Sensitivity CRP (HSCRP)should be ordered. CBC W/Diff, Automatedon Absolute Lymph 2.69 X10 3/uL Normal 0.83-4.51 [facility] Comment on above: Performed By: #### M 100.2400, #### [facility] [address] [place], [place], [id number] Absolute Neut 17.4 X10 3/uL High 2.0-7.7 [facility] Comment on above: Performed By: #### M 100.2400, #### [facility] [address] [place], [place], [address] CRPon 08-27-2024 C-REACTIVE PROT 52.60 mg/L High 0.0-3.0 [facility] Comment on above: Result Comment: C-Re active Protein (CRP) provides useful information for the diagnosis, therapy and monitoring of inflammatory processes and associated diseases. For the evaluation of Relative Risk for Cardiovascular Disease, a High Sensitivity CRP (HSCRP) should be ordered. Performed By: #### M 100.2400, M100.2000 #### [facility] [address] [place], [place], [address] Carbon dioxide measurementOr dered By: Kimberly Jacobson on 08-27-2024 CO2 [Moles/Vol] 28.0 mmol/L 21.0-32.0 [facility] Cells counted Molgen (Bld/Ti ss) [#]Ordered By: Kimberly Jacobson on 08-27-2024 Differential Total Cells Counted 100 MANUAL DIFF [facility] Chest PA and Lateralon 08-27 Chest PA and Lateral [facility] [address] [place] [address] Chest PA and Lateral MR#: [id number] Acct: [id number] Name: OFE GIMENEZ Rep #: [id number] : 1975 F 49 From: Jose Lyman MD PCP: Dr. Yarelis Fitzpatrick, DO Status: DEP AMB Study: Chest PA and Lateral Date of Exam: 08/27/24 Exam# [id number] Ordering Dr: Kimberly Jacobson POLICY SERVICES REPRESENTATIVE-C [id number] EXAM: XR CHEST, 2 VIEWS CLINICAL INDICATION: FEVERS, DYSPNEA STAT -- STAT TECHNIQUE: Frontal and lateral views of the chest. COMPARISON: No relevant prior studies available. FINDINGS: Biapical scarring. Increasing mass involving the right hilar region roughly measuring about 1.8 x 3.3 cm. Increased blunting of the costophrenic angles. These may represent small pleural effusions versus worsening parenchymal scarring. Findings of emphysema / bronchitis. Bones are unchanged. RAD/Chest PA and Lateral IMPRESSION: Right hilar mass. Recommend CT for further evaluation. Question subtle right retroclavicular opacity. This can be further evaluated with CT also. Electronically Signed: Jose Lyman MD at 12:45 EST , CC: DARRYN Jacobson; Dr. Yarelis Fitzpatrick, Doubler Helper: Signed Normal [facility] Chloride measurementOrdered By: Kimberly Jacobson on 08-27-2024 Chloride [Moles/Vol] 104 mmol/L 98-107 [facility] Comprehensive Metabolic Prof ilon 08-27-2024 Albumin [Mass/Vol] 3.4 g/dL Normal 3.2-5.0 [facility] Comment on above: Performed By: #### M 100.2400, .1999 #### [facility] [address] [place], [address] Albumin/Globulin [Mass ratio] 0.8 {ratio} Low 0.9-2.4 [facility] Comment on above: Performed By: #### M 100.2400, .1999 #### [facility] [address] [place], [address] ALK P 131 U/L High 45-117 [facility] Comment on above: Performed By: #### M 100.2400, .1999 #### [facility] [address] [place], [address] ALT [Catalytic activity/Vol] 82 U/L High 13-56 [facility] Comment on above: Performed By: #### M 100.2400, M1 #### [facility] [address] [place], [address] AST [Catalytic activity/Vol] 74 U/L High 15-37 [facility] Comment on above: Performed By: #### M 100.2400, M1.2000 #### [facility] [address] [place], [address] Bilirubin [Mass/Vol] 0.40 mg/dL Normal 0.20-1.00 [facility] Comment on above: Result Comment: For patients on eltrombopag therapy, use of Dimension Dougherty TBIL is not recommended. Performed By: #### M 100.2399, #### [facility] [address] [place], [address] BUN/CRE 16.1 RATIO Normal 10-20 [facility] Comment on above: Performed By: #### M , #### [facility] [address] [place], [address] CA,Total 9.1 mg/dL Normal 8.5-10.1 [facility] Comment on above: Performed By: #### M , #### [facility] [address] [place], [address] Chloride [Moles/Vol] 104 mmol/L Normal 98-107 [facility] Comment on above: Performed By: #### M , #### [facility] [address] [place], [address] CO2 [Moles/Vol] 28.0 mmol/L Normal 21.0-32.0 [facility] Comment on above: Performed By: #### M 100.240, #### [facility] [address] [place], [address] Creatinine [Mass/Vol] 0.68 mg/dL Normal 0.55-1.02 [facility] Comment on above: Result Comment: The validity of the calculated GFR GFRAA in patients over 70 years has not been determined. Clinical correlation is essential. Performed By: #### M .240, #### [facility] [address] [place], [address] EST GFR - AA 117 mL/min Normal >60 [facility] Comment on above: Result Comment: Afri can Mexican GFR Calc Performed By: #### M 100.2400, #### [facility] [address] [place], [address] GAP 4 Low 5-15 [facility] Comment on above: Performed By: #### M 100.2400, #### [facility] [address] [place], [address] GFR/1.73 sq M.predicted among non-blacks MDRD (S/P/Bld) [Vol rate/Area] 96 mL/min/{1.73_m2} Normal >60 [facility] Comment on above: Result Comment: Non- GFR Calc Performed By: #### M 100.240, #### [facility] [address] [place], [address] Globulin (S) [Mass/Vol] 4.0 g/dL Normal 2.2-4.2 [facility] Comment on above: Performed By: #### M 100.240, #### [facility] [address] [place], [address] Glucose [Mass/Vol] 129 mg/dL High 74-106 [facility] Comment on above: Result Comment: Fast ing Glucose result greater than or equal to 126 mg/dL suggests DIABETES MELLITUS per A.D.A. criteria. Performed By: #### M 100.240, #### [facility] [address] [place], [address] Potassium [Moles/Vol] 4.1 mmol/L Normal 3.5-5.1 [facility] Comment on above: Performed By: #### M 100.240, #### [facility] [address] [place], [address] Sodium [Moles/Vol] 136 mmol/L Normal 136-145 [facility] Comment on above: Performed By: #### M 100.2400, M1 #### [facility] [address] [place], [address] T PROT 7.4 g/dL Normal 6.4-8.2 [facility] Comment on above: Performed By: #### M 100.2400, .1999 #### [facility] [address] [place], [address] Urea nitrogen [Mass/Vol] 11 mg/dL Normal 7-18 [facility] Comment on above: Performed By: #### M 100.2400, .1999 #### [facility] [address] [place], [address] Erythrocyte Sed Rateon 08-27 SED RATE 4 mm/hr Normal 0-30 [facility] Comment on above: Performed By: #### M 100.2400, M1.1999 #### [facility] [address] [place], [address] Erythrocyte distribution wid th ratioOrdered By: Kimberly Jacobson on 08-27-2024 Erythrocyte distribution width (RBC) [Ratio] 14.0 % 11.6-14.6 [facility] Erythrocyte distribution wid th standard deviationOrdered By: Kimberly Jacobson on 08-27-2024 Erythrocyte distribution width (RBC) [Entitic vol] 42.5 fL 35.1-43.9 [facility] Erythrocyte distribution width (RBC) [Ratio] 42.5 fl 35.1-43.9 [facility] Erythrocyte morphology asses smentOrdered By: Kimberly Jacobson on 08-27-2024 RBC morphology finding Nom (Bld) NORM C+C NORMAL NORM C&C [facility] Erythrocyte sedimentation ra teOrdered By: Kimberly Jacobson on 08-27-2024 ESR (Bld) [Velocity] 4 mm/h 0-30 [facility] Estimated glomerular filtrat ion rate (GFR) AmericanOrdered By: Kimberly Jacobson on 08-27-2024 Estimated GFR (MDRD) Amer 117 mL/min >60 [facility] Comment on above: GFR Calc Glomerular filtration rate ( GFR) estimationOrdered By: Kimberly Jacobson on 08-27-2024 Estimated GFR (MDRD) Non-Af Amer 96 mL/min >60 [facility] Comment on above: Non- GFR Calc GFR/1.73 sq M.predicted among non-blacks MDRD (S/P/Bld) [Vol rate/Area] 96 mL/min/{1.73_m2} >60 [facility] Comment on above: Non- GFR Calc Glucose measurementOrdered B y: Kimberly Jacobson on 08-27-2024 Glucose [Mass/Vol] 129 mg/dL High 74-106 [facility] Comment on above: Fasting Glucose resu lt greater than or equal to 126 mg/dL suggests DIABETES MELLITUS per A.D.A. criteria. Hematocrit Auto (Bld) [Volum e fraction]Ordered By: Kimberly Jacobson on 08-27-2024 Hematocrit (Bld) [Volume fraction] 41.9 % 37-47 [facility] Hemoglobin measurementOrdere d By: Kimberly Jacobson on 08-27-2024 Hemoglobin (Bld) [Mass/Vol] 13.9 g/dL 12.0-15.0 [facility] Laboratory - Chemistry and C hemistry - challengeOrdered By: Kimberly Jacobson on 08-27-2024 AST [Catalytic activity/Vol] 74 U/L High 15-37 [facility] Lymphocytes Auto (Unsp spec) [#/Vol]Ordered By: Kimberly Jacobson on 08-27-2024 Lymphocytes (Bld) [#/Vol] 2.69 10*3/uL 0.83-4.51 [facility] MCV (mean corpuscular volume ) determinationOrdered By: Kimberly Jacobson on 08-27-2024 MCV (RBC) [Entitic vol] 83.3 fL 81-99 [facility] Mean corpuscular hemoglobin (MCH) determinationOrdered By: Kimberly Jacobson on 08-27-2024 MCH (RBC) [Entitic mass] 27.6 pg 27.0-32.0 [facility] Mean corpuscular hemoglobin concentration (MCHC) determinationOrdered By: Kimberly Jacobson on 08-27-2024 MCHC (RBC) [Mass/Vol] 33.2 g/dL 32-36 [facility] Mean platelet volume determi nationOrdered By: Kimberly Jacobson on 08-27-2024 Platelet mean volume (Bld) [Entitic vol] 10.0 fL 6.2-12.0 [facility] Neutrophil percentageOrdered By: Kimberly Jacobson on 08-27-2024 Neutrophils (%) (Auto) Not Reportable [facility] Platelet countOrdered By: Therese Jacobson on 08-27-2024 Platelets (Bld) [#/Vol] 427 10*3/uL 150-450 [facility] Platelet estimateOrdered By: Kimberly Jacobson on 08-27-2024 Platelets LM Ql (Bld) ADEQUATE ADEQ [facility] Platelets LM Ql (Bld)Ordered By: Kimberly Jacobson on 08-27-2024 Platelet Estimate ADEQUATE [facility] Potassium measurementOrdered By: Kimberly Jacobson on 08-27-2024 Potassium [Moles/Vol] 4.1 mmol/L 3.5-5.1 [facility] RBC Auto (Bld) [#/Vol]Ordere d By: Kimberly Jacobson on 08-27-2024 RBC (Bld) [#/Vol] 5.03 10*6/uL 4.2-5.4 [facility] RBC morphology finding Nom ( Bld)Ordered By: Kimberly Jacobson on 08-27-2024 Red Blood Cell Morphology NORM C+C NORMAL NORM C&C [facility] Reactive lymphocyte countOrd ered By: Kimberly Jacobson on 08-27-2024 Reactive Lymphocytes 1+ [facility] Segmented neutrophils/100 WB C (Bld)Ordered By: Kimberly Jacobson on 08-27-2024 Neutrophils/100 WBC (Bld) 83 % High 47-70 [facility] Serum anion gap measurementO rdered By: Kimberly Jacobson on 08-27-2024 Anion gap [Moles/Vol] 4 mmol/L Low 5-15 [facility] Serum globulin measurementOr dered By: Kimberly Jacobson on 08-27-2024 Globulin (S) [Mass/Vol] 4.0 g/dL 2.2-4.2 [facility] Serum or plasma alanine ruby otransferase (ALT) measurementOrdered By: Kimberly Jacobson on 08-27-2024 ALT [Catalytic activity/Vol] 82 U/L High 13-56 [facility] Serum or plasma albumin sanford urement (mass/volume)Ordered By: Kimberly Jacobson on 08-27-2024 Albumin [Mass/Vol] 3.4 g/dL 3.2-5.0 [facility] Serum or plasma alkaline neftali sphatase measurementOrdered By: Kimberly Jacobson on 08-27-2024 ALP [Catalytic activity/Vol] 131 U/L High 45-117 [facility] Serum or plasma calcium sanford urement (mass/volume)Ordered By: Kimberly Jacobson on 08-27-2024 Calcium [Mass/Vol] 9.1 mg/dL 8.5-10.1 [facility] Serum or plasma creatinine m easurement (mass/volume)Ordered By: Kimberly Jacobson on 08-27-2024 Creatinine [Mass/Vol] 0.68 mg/dL 0.55-1.02 [facility] Comment on above: The validity of the calculated GFR & GFRAA in patients over 70 years has not been determined. Clinical correlation is essential. Serum or plasma urea nitroge n measurement (mass/volume)Ordered By: Kimberly Jacobson on 08-27-2024 Urea nitrogen [Mass/Vol] 11 mg/dL 7-18 [facility] Sodium levelOrdered By: Maureen Jacobson on 08-27-2024 Sodium [Moles/Vol] 136 mmol/L 136-145 [facility] Total cell countOrdered By: Kimberly Jacobson on 08-27-2024 Cells counted Molgen (Bld/Tiss) [#] 100 MANUAL DIFF [facility] Total proteinOrdered By: Shar Jacobson on 08-27-2024 Protein [Mass/Vol] 7.4 g/dL 6.4-8.2 [facility] Toxic granules LM Ql (Bld)Or dered By: Kimberly Jacobson on 08-27-2024 Toxic Granulation [facility] Toxic leukocyte granulation detectionOrdered By: Kimberly Jacobson on 08-27-2024 Toxic granules LM Ql (Bld) [facility] White blood cell (WBC) count Ordered By: Kimberly Jacobson on 08-27-2024 WBC (Bld) [#/Vol] 20.7 10*3/uL High 4.4-11.0 [facility] IMMUNOGLOBULIN Dilip Immunoglobulin G 1017 mg/dL Normal 578-1228 [facility] Comment on above: Order Comment: Relea se to patient->Automatic Performed By: #### 2 600 #### OFE Lindsay ([id number]) [facility]) [address] Immunoglobulin GOrdered By: Background Lab on 2024 IgG [Mass/Vol] 1017 mg/dL 578 - 1228 mg/dL [facility] Interpretation and review of laboratory results Normal [facility] Progress Noteon 2024 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 female who presents to our office today for a follow up visit. She was last seen on 12/18/23 and before this on 07/07/23 and she was seen initially on 02/09/23 for evaluation secondary to concerns from her PCP Dr. Yarelis Fitzpatrick (see referral in Epic). Ofe used to be followed by Dr. Tarango (Anesthesiology Physician Assistant) for lung nodules and she had been on Pulmicort 0.5mg/2ml twice a day. She also has a previous history of some degree of urticaria and I may have seen her for this several years ago in my old office and she goes years without them and she last had hives about 4 years ago (2019) and these resolved on their own and reportedly the evaluation I did was unremarkable. Due to cough and other issues, laboratory [...] have shown possible bronchiectasis and per Dr. Fitzpatrick she was to see Dr. Meeks (Anesthesiology Physician Assistant in [place]) and she has done this once and she then presented for evaluation. -In the past she was prescribed recurrent courses of antibiotics and after she is off antibiotics she would have a recurrence of issues and she has a history of bronchitis for a couple of times a year for several years but since August 2022 she had increased cough. Pulmicort is used as needed and albuterol is used as needed and she had not seen Dr. Tarango for 6 years (2018). In the past, she was given Prednisone a year ago for respiratory type symptoms and this was tolerated. -Due to her seeing a Anesthesiology Physician Assistant (Dr. Meeks), I held off on spirometry at her initial visit and food and environmental allergen testing did not appear to be indicated and this was discussed with her. 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 I did have her take Medrol and Azithromycin after her initial visit and then Doxycycline in February 2023 and then she did not need anything until the end of May 2023 and I sent in a Zpack at that time (3 months without antibiotics). I had also suggested Azelastine nasal spray and if the hives returned Cetirizine and Miranda be taken. -Overall, she feels better and is improved. I also gave her Doxycycline in the summer of 2022 and she says this did not make her feel good and she presents for a follow up visit. Azelastine was helpful and tolerated and now she prefers to use this as needed and overall 07/07/23, she felt quite improved and she does realize the high cost of her Hizentra therapy. Then on 12/18/23, since the last visit due to insurance cost issues, she went off Hizentra for a period of time and had increased issues and I sent in a course of Ceftin 11/17/23 and this was helpful and her last IgG level was 1030 on 07/07/23. She says her spirometry with her Anesthesiology Physician Assistant was normal and she did not have a bronchodilator response and no inhaler was prescribed and she was given an incentive spirometer at home and she has met her deductible this year. She was off infusions for 4 weeks and on 12/18/23, she had been back on for 4 weeks and she slowly improved and I suggested using Azelastine and now she is improved and I discussed about rechecking an IgG with her in 6 months. On 12/18/23, I prescribed Medrol Dosepak and she had been off Pulmicort/Budesondie and Albuterol at that time On 05/13/24, I prescribed Ceftin 500mg for 10 day and on 06/10/24, she presents for a follow up visit. She is improved and is still not using Budesonide and the Medrol was helpful after her 12/18/23 visit and she does not have a Zpack at home and I advised her that I will fill this. Environmental Survey/Social History: Lives with spouse and son (age 19). She was at age 23. Special Needs: None Preferred Language: Albanian Pets: Yes: 1 dog. 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 Smoking/Alcohol/Drug Use or Exposure: No, never smoked. Recreational Activities/Sports: No Review of Systems/Past Medical History: Constitutional: denies fever, chills, weight loss. Eyes: denies vision changes, color blindness. Ears, nose throat and mouth: see narrative above. Nasal symptoms at times and she has drainage and congestion at times. Azelastine nasal spray has been helpful and tolerated. Respirator (more content not included)... Normal [facility] Progress Noteon 12-18-2023 Amphibious Operations Officer Authentication Interface Message Text Ofe is a 48 y.o. female who presents to our office today for a follow up visit. She was last seen on 07/07/23 and she was seen initially on 02/09/23 for evaluation secondary to concerns from her PCP Dr. Yarelis Fitzpatrick (see referral in [facility]). Ofe used to be followed by Dr. Tarango (Anesthesiology Physician Assistant) for lung nodules and she had been on Pulmicort 0.5mg/2ml twice a day. She also has a previous history of some degree of urticaria and I may have seen her for this several years ago in my old office and she goes years without them and she last had hives about 4 years ago (2019) and these resolved on their own and reportedly the evaluation I did was unremarkable. Due to cough and other issues, laboratory studies were obtained and a SPEP and UPEP appeared to be okayexcept for low gamma globulin in the SPEP and she was found to have low iron and she has a history of increased WBC to some degree and platelet count. Also, 12/16/22 IgG-307, IgA<5, IgM-30 and IgE<[address] may have shown possible bronchiectasis and per Dr. Fitzpatrick she was to see Dr. Meeks (Anesthesiology Physician Assistant in [place]) and she has done this once and she then presented for evaluation. -In the past she was prescribed recurrent courses of antibiotics and after she is off antibiotics she would have a recurrence of issues and she has a history of bronchitis for a couple of times a year for several years but since August 2022 she had increased cough. Pulmicort is used as needed and albuterol is used as needed and she had not seen Dr. Tarango for 6 years (2017). In the past, she was given Prednisone a year ago for respiratory type symptoms and this was tolerated. -Due to her seeing a Anesthesiology Physician Assistant (Dr. Meeks), I held off on spirometry at her initial visit and food and environmental allergen testing did not appear to be indicated and this was discussed with her. 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 I did have her take Medrol and Azithromycin after her initial visit and then Doxycycline in February 2023 and then she did not need anything until the end of May 2023 and I sent in a Zpack at that time (3 months without antibiotics). I had also suggested Azelastine nasal spray and if the hives returned Cetirizine and Miranda be taken. -As yet, she has not had spirometry and she is to do this next week and she has not followed up with her yield clerk as yet and overall she feels better and is improved. I also gave her Doxycycline in the summer of 2022 and she says this did not make her feel good and she presents for a follow up visit. Azelastine was helpful and tolerated and now she prefers to use this as needed and overall 07/07/23, she felt quite improved and she does realize the high cost of her Hizentra therapy. Then on 12/18/23, since the last visit due to insurance cost issues, she went off Hizentra for a period of time and had increased issues and I sent in a course of Ceftin 11/17/23 and this was helpful and her last IgG level was 1030 on 07/07/23. She says her spirometry was normal and she did not have a bronchodilator response and no inhaler was prescribed and she was given an incentive spirometer at home and she has met her deductible this year. She was off infusions for 4 weeks and is back on for 4 weeks and she is slowly improving and I suggested using Azelastine and now she is improved and I discussed about rechecking an IgG with her in 6 months. Also, she is off Budesonide and albuterol at this time. Environmental Survey/Social History: Lives with spouse and son (age 19). She was at age 23. Special Needs: None Preferred Language: Albanian Pets: Yes: 1 dog. 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 Smoking/Alcohol/Drug Use or Exposure: No, never smoked. Recreational Activities/Sports: No Review of Systems/Past Medical History: Constitutional: denies fever, chills, weight loss. Eyes: denies vision changes, color blindness. Ears, nose throat and mouth: see narrative above. Nasal symptoms at times and she has drainage and congestion at times. Azelastine nasal spray has been helpful and tolerated. Respiratory: has cough at baseline/ see above narrative. Gastrointestinal: denies diarrhea, constipation, emesis. Genitourinary: denies dysuria or urine odor. Skin/integumentary: denies nail changes or other rash. Neurologic: denies seizures, weakness or speech problems. Hematologic/l (more content not included)... Normal [facility] HIV 1&2 Ag and Ab Screenon 0 02-13-2023 HIV 1&2 Ag and Ab Screen Non-Reactive [facility] Comment on above: Reference value: Non -reactive Non-reactive result does not rule out HIV infection. If exposure to HIV infection occurred <14 days ago, contact the laboratory to request the addition of HIV-1 RNA detection/quantification test to [facility] (HIVQN). Release to patient->Automatic Reason for preventing automatic release->Other Release to patient->Manual release only [facility] Immunoglobulin A,G,M,Marino Immunoglobulin A <5 Low 59 - 337 mg/dL [facility] Immunoglobulin E <1 [facility] Immunoglobulin G 242 mg/dL Low 578 - 1228 mg/dL [facility] Immunoglobulin M 23 mg/dL 23 - 166 mg/dL [facility] Interpretation and review of laboratory results Abnormal [facility] Release to patient->Automatic Reason for preventing automatic release->Other Release to patient->Manual release only [facility] Microbial respiratory cultur eOrdered By: Dr. Meeks on 01-26-2023 Bacteria identified Respiratory culture Nom (Unsp spec) or Staphylococcus aureus isolated. [facility] Gram stain for investigation of transfusion reactionOrdered By: Dr. Meeks on 01-24-2023 Microscopic observation Gram stain Nom (Unsp spec) [facility] CBC W/AUTO DIFF WBC (76362)O rdered By: Dial Screw Assembler on 12-16-2022 Basophils (Bld) [#/Vol] 0.1 10*3/uL Normal 0.0-0.2 [facility] Work Phone: Comment on above: PATIENT WAS FASTINGP ERFORMED BY: [facility]6370 [facility] [id number] BY: [address] [id number] Basophils/100 WBC (Bld) 0 % Normal [facility]; [facility] Work Phone: Comment on above: PATIENT WAS FASTINGP ERFORMED BY: ANGELINE [facility] Svuigl8490 [facility] [id number] BY: Lab[address] [id number] Eosinophils (Bld) [#/Vol] 0.1 10*3/uL Normal 0.0-0.4 [facility]; [facility] Work Phone: Comment on above: PATIENT WAS FASTINGP ERFORMED BY: ANGELINE [facility] Gexwue3564 [facility] [id number] BY: [address] [id number] Eosinophils/100 WBC (Bld) 1 % Normal [facility]; [facility] Work Phone: Comment on above: PATIENT WAS FASTINGP ERFORMED BY: [facility] Jpqdwt6810 [facility] [id number] BY: [address] [id number] Erythrocyte distribution width (RBC) [Ratio] 14.2 % Normal 11.7-15.4 [facility]; [facility] Work Phone: Comment on above: PATIENT WAS FASTINGP ERFORMED BY: [facility] Zxtlxz5406 [facility] [id number] BY: [address] [id number] Hematocrit (Bld) [Volume fraction] 42.6 % Normal 34.0-46.6 [facility]; [facility] Work Phone: Comment on above: PATIENT WAS FASTINGP ERFORMED BY: [facility] Wfymrl2595 [facility] [id number] BY: BN [facility] [id number] Hemoglobin (Bld) [Mass/Vol] 14.3 g/dL Normal 11.1-15.9 [facility]; [facility] Work Phone: Comment on above: PATIENT WAS FASTINGP ERFORMED BY: [facility] Wrubsy7994 [facility] [id number] BY: [address] [id number] Immature granulocytes (Bld) [#/Vol] 0.0 10*3/uL Normal 0.0-0.1 [facility]; [facility] Work Phone: Comment on above: PATIENT WAS FASTINGP ERFORMED BY: [facility] Rdkavc8013 [facility] [id number] BY: [address] [id number] Immature granulocytes/100 WBC (Bld) 0 % Normal [facility]; [facility] Work Phone: Comment on above: PATIENT WAS FASTINGP ERFORMED BY: [facility] Wiirbs1872 [facility] [id number] BY: [address] [id number] Lymphocytes (Bld) [#/Vol] 2.9 10*3/uL Normal 0.7-3.1 [facility]; [facility] Work Phone: Comment on above: PATIENT WAS FASTINGP ERFORMED BY: [facility] Mzsmar9783 [facility] [id number] BY: [address] [id number] Lymphocytes/100 WBC (Bld) 18 % Normal [facility]; [facility] Work Phone: Comment on above: PATIENT WAS FASTINGP ERFORMED BY: [facility] Xdanpl0165 [facility] [id number] BY: BN [facility] [id number] MCH (RBC) [Entitic mass] 27.1 pg Normal 26.6-33.0 [facility]; [facility] Work Phone: Comment on above: PATIENT WAS FASTINGP ERFORMED BY: [facility] Osnipz5514 [facility] [id number] BY: [address] [id number] MCHC (RBC) [Mass/Vol] 33.6 g/dL Normal 31.5-35.7 [facility] prehensive [facility]; [facility] Work Phone: Comment on above: PATIENT WAS FASTINGP ERFORMED BY: [facility]coSouthern [facility] CenterJufaxe8791 [facility] [id number] BY: [address] [id number] MCV (RBC) [Entitic vol] 81 fL Normal 79-97 [facility]; [facility] Work Phone: Comment on above: PATIENT WAS FASTINGP ERFORMED BY: [facility]coSouthern [facility] Medical CenterVgedbb8788 [facility] [id number] BY: [address] [id number] Monocytes (Bld) [#/Vol] 0.9 10*3/uL Normal 0.1-0.9 [facility]; [facility] Work Phone: Comment on above: PATIENT WAS FASTINGP ERFORMED BY: [facility] Cesyut5455 [facility] [id number] BY: [facility] [id number] Monocytes/100 WBC (Bld) 6 % Normal [facility]; [facility] Work Phone: Comment on above: PATIENT WAS FASTINGP ERFORMED BY: [facility] Fwsnfr3548 [facility] [id number] BY: [facility] [id number] Neutrophils (Bld) [#/Vol] 11.8 10*3/uL Abnormal 1.4-7.0 [facility]; [facility] Work Phone: Comment on above: PATIENT WAS FASTINGP ERFORMED BY: ANGELINE [facility] Hanykm2503 [facility] CenterDuin [place] [id number] BY: [facility] [address] [id number] Neutrophils/100 WBC (Bld) 75 % Normal [facility]; [facility] Work Phone: Comment on above: PATIENT WAS FASTINGP ERFORMED BY: ANGELINE [facility] Jbjuyg0271 [facility] [id number] BY: [facility] [address] [id number] Platelets (Bld) [#/Vol] 522 10*3/uL Abnormal 150-450 [facility]; [facility] Work Phone: Comment on above: PATIENT WAS FASTINGP ERFORMED BY: ANGELINE [facility] Jkrvlz3377 [facility] [id number] BY: [facility] [id number] RBC (Bld) [#/Vol] 5.28 10*6/uL Normal 3.77-5.28 Compr ensive [facility]; [facility] Work Phone: Comment on above: PATIENT WAS FASTINGP ERFORMED BY: CB [facility] Jpcila7754 [facility] [id number] BY: [facility] [address] [id number] WBC (Bld) [#/Vol] 15.8 10*3/uL Abnormal 3.4-10.8 Compr [facility]; [facility] Work Phone: Comment on above: PATIENT WAS FASTINGP ERFORMED BY: CB [facility] Asblhc2630 [facility] [id number] BY: [employer] Brdtuzjhsg2601 [facility] [id number] Ferritin ([id number])Ordered By: Dial Screw Assembler on 12-16-2022 Ferritin [Mass/Vol] 98 ng/mL Normal 15-150 Compr ehensive [facility]; [facility] Work Phone: Comment on above: PATIENT WAS FASTINGP ERFORMED BY: ANGELINE [employer] Ecsync1199 [facility] [id number] BY: [facility] [id number] Immunoglobulins, Quantitativ e, IgA,IgE, IgG, IgM (55837)Ordered By: Dial Screw Assembler on 12-16-2022 IgA [Mass/Vol] mg/dL Abnormal 87-352 Comprehens [facility]us [facility]; [facility] Work Phone: Comment on above: Result confirmed on concentration. PATIENT WAS FASTINGP ERFORMED BY: ANGELINE [employer]70 [facility] [id number] BY: [employer] [id number] IgE Qn [IU]/L Abnormal 6-495 [facility]; [facility] Work Phone: Comment on above: PATIENT WAS FASTINGP ERFORMED BY: ANGELINE [place] [employer]6370 [facility] [id number] BY: [employer] [id number] IgG [Mass/Vol] 307 mg/dL Abnormal 586-1602 Comprehens [facility]; [facility] Work Phone: Comment on above: PATIENT WAS FASTINGP ERFORMED BY: 1-[employer] Wofrse2340 [facility] [id number] BY: [employer] [id number] IgM [Mass/Vol] 30 mg/dL Normal 26-217 Comprehens [facility]; [facility] Work Phone: Comment on above: PATIENT WAS FASTINGP ERFORMED BY: ANGELINE [facility] Bhedws8589 Angel RoadDublin [place] [id number] BY: [address] [id number] Iron Binding Capacity (TIBC) (34530)Ordered By: Dial Screw Assembler on 12-16-2022 Iron [Mass/Vol] 19 ug/dL Abnormal 27-159 [facility]; [facility] Work Phone: Comment on above: PATIENT WAS FASTINGP ERFORMED BY: CB [facility] Wgxeom4366 [facility] RoadUNC [facility] [id number] BY: [address] [id number] Iron binding capacity [Mass/Vol] 263 ug/dL Normal 250-450 [facility]; [facility] Work Phone: Comment on above: PATIENT WAS FASTINGP ERFORMED BY: CB [facility] Skjxia7490 Angel RoadUNC [facility] [id number] BY: [address] [id number] Iron binding capacity.unsaturated [Mass/Vol] 244 ug/dL Normal 131-425 [facility]; [facility] Work Phone: Comment on above: PATIENT WAS FASTINGP ERFORMED BY: CB [facility] Elygye9491 [facility] [id number] BY: [address] [id number] Iron saturation [Mass fraction] 7 % Abnormal 15-55 [facility]; [facility] Work Phone: Comment on above: PATIENT WAS FASTINGP ERFORMED BY: CB [facility] Obwufu5882 [facility] [id number] BY: [address] [id number] LDH (LD) (LACTATE DEHYDROGEN ASE) ([id number])Ordered By: Dial Screw Assembler on 12-16-2022 LDH [Catalytic activity/Vol] 175 U/L Normal 119-226 [facility]; [facility] Work Phone: Comment on above: PATIENT WAS FASTINGP ERFORMED BY: CB [facility] Edkizj0035 [facility] [id number] BY: [facility] [id number] METABOLIC PANEL, COMPREHENSI VE ([id number])Ordered By: Dial Screw Assembler on 12-16-2022 Albumin [Mass/Vol] 4.7 g/dL Normal 3.8-4.8 [facility]; [facility] Work Phone: Comment on above: PATIENT WAS FASTINGP ERFORMED BY: CB [facility] Bhogqq7012 [facility] [id number] BY: [facility] [id number] Albumin/Globulin [Mass ratio] 2.9 {ratio} Abnormal 1.2-2.2 [facility]; [facility] Work Phone: Comment on above: PATIENT WAS FASTINGP ERFORMED BY: CB [facility] Fbxzqn4936 [facility] [id number] BY: [facility] [id number] ALP [Catalytic activity/Vol] 116 U/L Normal 44-121 [facility]; [facility] Work Phone: Comment on above: PATIENT WAS FASTINGP ERFORMED BY: CB [facility] Qxnous1833 [facility] [id number] BY: [facility] [id number] ALT [Catalytic activity/Vol] 17 U/L Normal 0-32 [facility]; [facility] Work Phone: Comment on above: PATIENT WAS FASTINGP ERFORMED BY: CB [facility] Hlcmvb8281 [facility] [id number] BY: Lab[address] [id number] AST [Catalytic activity/Vol] 19 U/L Normal 0-40 [facility]; [facility] Work Phone: Comment on above: PATIENT WAS FASTINGP ERFORMED BY: CB [facility] Fdcmts6101 [facility] [id number] BY: [facility] [address] [id number] Bilirubin [Mass/Vol] 0.5 mg/dL Normal 0.0-1.2 Comp rehensive [facility]; [facility] Work Phone: Comment on above: PATIENT WAS FASTINGP ERFORMED BY: CB [facility] Wikqkw7052 [facility] [id number] BY: [facility] [address] [id number] Calcium [Mass/Vol] 9.5 mg/dL Normal 8.7-10.2 [facility]; [facility] Work Phone: Comment on above: PATIENT WAS FASTINGP ERFORMED BY: CB [facility] Ycottj2513 [facility] [id number] BY: [facility] [id number] Chloride [Moles/Vol] 102 mmol/L Normal 96-106 Comp rehensive [facility]; [facility] Work Phone: Comment on above: PATIENT WAS FASTINGP ERFORMED BY: CB [facility] Uspkcj0849 [facility] [id number] BY: [facility] [address] [id number] CO2 [Moles/Vol] 23 mmol/L Normal 20-29 [facility]; [facility] Work Phone: Comment on above: PATIENT WAS FASTINGP ERFORMED BY: CB [facility] Ijgtqb5588 [facility] [id number] BY: [facility] [id number] Creatinine [Mass/Vol] 0.71 mg/dL Normal 0.57-1.00 [facility] prehensive Internal Medicine; [facility] Work Phone: Comment on above: PATIENT WAS FASTINGP ERFORMED BY: CB [facility] Ejysvd5176 [facility] [id number] BY: [facility] [id number] GFR/1.73 sq M.predicted among non-blacks MDRD (S/P/Bld) [Vol rate/Area] 104 mL/min/{1.73_m2} Normal Comprehensi ve [facility]; [facility] Work Phone: Comment on above: PATIENT WAS FASTINGP ERFORMED BY: CB [facility] Yiawtv5775 [facility] [id number] BY: LabFIRSTGATE Holding[address] [id number] Globulin (S) [Mass/Vol] 1.6 g/dL Normal 1.5-4.5 [facility]; [facility] Work Phone: Comment on above: PATIENT WAS FASTINGP ERFORMED BY: CB [facility] Ranydr7026 [facility] [id number] BY: Lab[address] [id number] Glucose [Mass/Vol] 89 mg/dL Normal 70-99 [facility]; [facility] Work Phone: Comment on above: PATIENT WAS FASTINGP ERFORMED BY: CB [facility] Phcpcg3385 [facility] [id number] BY: Lab[address] [id number] Potassium [Moles/Vol] 4.5 mmol/L Normal 3.5-5.2 [facility]; [facility] Work Phone: Comment on above: PATIENT WAS FASTINGP ERFORMED BY: CB [facility] Rbgrad3003 [facility] [id number] BY: Lab[address] [id number] Protein [Mass/Vol] 6.3 g/dL Normal 6.0-8.5 [facility]; [facility] Work Phone: Comment on above: PATIENT WAS FASTINGP ERFORMED BY: ANGELINE [facility] Qjzibd8650 Angel RoadDublin [place] [id number] BY: [facility] [id number] Sodium [Moles/Vol] 142 mmol/L Normal 134-144 [facility]; [facility] Work Phone: Comment on above: PATIENT WAS FASTINGP ERFORMED BY: ANGELINE [facility] Sohwvv4864 [facility] RoadUnc Health Chath[facility] [place] [id number] BY: [facility] [address] [id number] Urea nitrogen [Mass/Vol] 9 mg/dL Normal 6-24 [facility]; [facility] Work Phone: Comment on above: PATIENT WAS FASTINGP ERFORMED BY: ANGELINE [facility] Chnfav8577 [facility] [id number] BY: [facility] [id number] Urea nitrogen/Creatinine [Mass ratio] 13 mg/mg Normal 9-23 [facility]; [facility] Work Phone: Comment on above: PATIENT WAS FASTINGP ERFORMED BY: ANGELINE [facility] Wojqyp1078 [facility] [id number] BY: [facility] [id number] RETICULOCYTE COUNT ([id number])Or dered By: Dial Screw Assembler on 12-16-2022 Reticulocytes/100 RBC (Bld) 0.7 % Normal 0.6-2.6 [facility]; [facility] Work Phone: Comment on above: PATIENT WAS FASTINGP ERFORMED BY: CB [facility] Qvoczv0965 [facility] [id number] BY: Lab[address] [id number] SPEP ([id number])Ordered By: Syst em Adjuster And Inspector on 12-16-2022 Albumin [Mass/Vol] 4.1 g/dL Normal 2.9-4.4 [facility]; [facility] Work Phone: Comment on above: PATIENT WAS FASTINGP ERFORMED BY: CB [facility] Xugwde6258 [facility] [id number] BY: Lab[address] [id number] Albumin/Globulin [Mass ratio] 1.9 {ratio} Abnormal 0.7-1.7 [facility]; [facility] Work Phone: Comment on above: PATIENT WAS FASTINGP ERFORMED BY: CB [facility] Wawrcm2881 [facility] [id number] BY: [address] [id number] Alpha 1 globulin Elph [Mass/Vol] 0.3 g/dL Normal 0.0-0.4 [facility]; [facility] Work Phone: Comment on above: PATIENT WAS FASTINGP ERFORMED BY: CB [facility] Otkbpx7246 [facility] [id number] BY: Lab[address] [id number] Alpha 2 globulin Elph [Mass/Vol] 0.8 g/dL Normal 0.4-1.0 [facility]; [facility] Work Phone: Comment on above: PATIENT WAS FASTINGP ERFORMED BY: CB [facility] Byghlz7370 [facility] [id number] BY: Lab[address] [id number] Beta globulin Elph [Mass/Vol] 0.8 g/dL Normal 0.7-1.3 [facility]; [facility] Work Phone: Comment on above: PATIENT WAS FASTINGP ERFORMED BY: CB [facility] Uruugz6737 [facility] [id number] BY: [address] [id number] Gamma globulin Elph [Mass/Vol] 0.3 g/dL Abnormal 0.4-1.8 [facility]; [facility] Work Phone: Comment on above: PATIENT WAS FASTINGP ERFORMED BY: [facility] Uhkrmc5807 [facility] [id number] BY: [address] [id number] Globulin (S) [Mass/Vol] 2.2 g/dL Normal 2.2-3.9 [facility]; [facility] Work Phone: Comment on above: PATIENT WAS FASTINGP ERFORMED BY: [facility] Oruxff2966 [facility] [id number] BY: [address] [id number] Laboratory comment Dragan (Report) [facility] Normal [facility]; [facility] Work Phone: Comment on above: Protein electrophore sis scan will follow via computer, mail, orcourier delivery. PATIENT WAS FASTINGP ERFORMED BY: [facility] Iwynox1956 [facility] [id number] BY: [address] [id number] Laboratory report . Normal Compreh ensive [facility]; [facility] Work Phone: Comment on above: PATIENT WAS FASTINGP ERFORMED BY: [facility] Xlcpdn8444 [facility] [id number] BY: [address] [id number] Protein.monoclonal Elph [Mass/Vol] Not Observed Normal [facility]; [facility] Work Phone: Comment on above: PATIENT WAS FASTINGP ERFORMED BY: [facility] Klrbti5242 [facility] [id number] BY: [address] [id number] UPEP ([id number])Ordered By: Syst em Adjuster And Inspector on 12-16-2022 Albumin Elph (U) [Mass fraction] 14.5 % Normal [facility]; [facility] Work Phone: Comment on above: PATIENT WAS FASTINGP ERFORMED BY: [facility] Avouaj3093 [facility] [id number] BY: [facility] [id number] Alpha 1 globulin Elph (U) [Mass fraction] 13.0 % Normal Comprehensiv e [facility]; [facility] Work Phone: Comment on above: PATIENT WAS FASTINGP ERFORMED BY: [facility] Hwwinb9399 [facility] [id number] BY: [address] [id number] Alpha 2 globulin Elph (U) [Mass fraction] 21.8 % Normal Comprehens[facility] e [facility]; [facility] Work Phone: Comment on above: PATIENT WAS FASTINGP ERFORMED BY: [facility] monett Anaamw4778 [facility] [id number] BY: [address] [id number] Beta globulin Elph (U) [Mass fraction] 32.9 % Normal Comprehensiv e Internal Medicine; [facility] Work Phone: Comment on above: PATIENT WAS FASTINGP ERFORMED BY: [facility] Zajoat3751 [facility] [id number] BY: [address] [id number] Gamma globulin Elph (U) [Mass fraction] 17.8 % Normal Comprehensiv e Internal Medicine; [facility] Work Phone: Comment on above: PATIENT WAS FASTINGP ERFORMED BY: [facility] Iblclt2703 [facility] [id number] BY: [employer] [id number] Protein (U) [Mass/Vol] mg/dL Normal [facility]; [facility] Work Phone: Comment on above: Verified by repeat analysis PATIENT WAS FASTINGP ERFORMED BY: [place] [id number] [facility] [id number] BY: [employer] [id number] Protein.monoclonal Elph (U) [Mass fraction] Not Observed Normal [facility]; [facility] Work Phone: Comment on above: PATIENT WAS FASTINGP ERFORMED BY: 1-800-DOCTORSErin [place] [id number] [facility] [id number] BY: [employer] [id number] Vitamin B-12 (cyanocobalamin ) ([id number])Ordered By: Dial Screw Assembler on 12-16-2022 Cobalamin (Vitamin B12) [Mass/Vol] 339 pg/mL Normal [id number] [facility]; [facility] Work Phone: Comment on above: PATIENT WAS FASTINGP ERFORMED BY: [place] [id number] [facility] [id number] BY: [employer] [id number] Absolute lymphocyte countOrd ered By: ED PROVIDER on 11-06-2022 Lymphocytes Auto (Unsp spec) [#/Vol] 3.22 10*3/uL 0.83-4.51 [facility] Amorphous sediment detection in urine sediment by light microscopyOrdered By: ED PROVIDER on 11-06-2022 Amorphous sediment LM Ql (Urine sed) 1+ URATE [facility] Basophil percentageOrdered B y: ED PROVIDER on 11-06-2022 Basophil percentage 0 SEEN /hpf 0-5 [facility] Basophils/100 WBC (Bld) 0.5 % 0-1 [facility] Chloride [Moles/Vol] 107 mmol/L 98-107 [facility] Eosinophils/100 WBC (Bld) 0.0 % 0-5 [facility] Glucose [Mass/Vol] 177 mg/dL 74-106 [facility] Comment on above: Fasting Glucose resu lt greater than or equal to 126 mg/dL suggests DIABETES MELLITUS per A.D.A. criteria. Neutrophils (Bld) [#/Vol] 8.5 10*3/uL 2.0-7.7 [facility] Neutrophils/100 WBC (Bld) 66.8 % 47-70 [facility] Potassium [Moles/Vol] 3.6 mmol/L 3.5-5.1 [facility] Sodium [Moles/Vol] 142 mmol/L 136-145 [facility] WBC (Bld) [#/Vol] 12.7 10*3/uL 4.4-11.0 [facility] Beta hCG serum qualOrdered B y: ED PROVIDER on 11-06-2022 Beta HCG ( test) Ql Negative [facility] Bilirubin Test strip Ql (U)O rdered By: ED PROVIDER on 11-06-2022 Bilirubin Ql (U) Negative Negative [facility] Blood erythrocytes count (nu mber/volume)Ordered By: ED PROVIDER on 11-06-2022 RBC (Bld) [#/Vol] 5.24 10*6/uL 4.2-5.4 [facility] Blood hemoglobin measurement (mass/volume)Ordered By: ED PROVIDER on 11-06-2022 Hemoglobin (Bld) [Mass/Vol] 13.9 g/dL 12.0-15.0 [facility] Blood lymphocytes/100 leukoc ytesOrdered By: ED PROVIDER on 11-06-2022 Lymphocytes/100 WBC (Bld) 25.4 % 19-41 [facility] Blood monocytes/100 leukocyt esOrdered By: ED PROVIDER on 11-06-2022 Monocytes/100 WBC (Bld) 6.8 % 0-10 [facility] Blood platelet mean volumeOr dered By: ED PROVIDER on 11-06-2022 Platelet mean volume (Bld) [Entitic vol] 9.2 fL 6.2-12.0 [facility] Determination of erythrocyte mean corpuscular volume (MCV)Ordered By: ED PROVIDER on 11-06-2022 MCV (RBC) [Entitic vol] 83.4 fL 81-99 [facility] Hematocrit Auto (Bld) [Volum e fraction]Ordered By: ED PROVIDER on 11-06-2022 Hematocrit (Bld) [Volume fraction] 43.7 % 37-47 [facility] Ketones Test strip Ql (U)Ord ered By: ED PROVIDER on 11-06-2022 Ketones Ql (U) Negative Negative [facility] Laboratory - Chemistry and C hemistry - challengeOrdered By: ED PROVIDER on 11-06-2022 CO2 [Moles/Vol] 27.0 mmol/L 21.0-32.0 [facility] Urea nitrogen/Creatinine [Mass ratio] 14.5 mg/mg 10-20 [facility] Laboratory - Hematology and Cell countsOrdered By: ED PROVIDER on 11-06-2022 Erythrocyte distribution width (RBC) [Entitic vol] 44.0 fL 35.1-43.9 [facility] Erythrocyte distribution width (RBC) [Ratio] 14.6 % 11.6-14.6 [facility] Immature granulocytes/100 WBC (Bld) 0.500 % 0.0-0.9 [facility] Comment on above: IG% - Immature Granu locytes (promyelocytes, myelocytes and metamyelocytes) > 1% indicates that a LEFT SHIFT is Present. MCH (RBC) [Entitic mass] 26.5 pg 27.0-32.0 [facility] Nucleated RBC/100 WBC (Bld) [Ratio] 0 % 0-5 [facility] MCHC Auto (RBC) [Mass/Vol]Or dered By: ED PROVIDER on 11-06-2022 MCHC (RBC) [Mass/Vol] 31.8 g/dL 32-36 [facility] Mucus LM Ql (Urine sed)Order ed By: ED PROVIDER on 11-06-2022 Mucus Ql (Urine sed) 0 SEEN /hpf [facility] Nitrite Test strip Ql (U)Ord ered By: ED PROVIDER on 11-06-2022 Nitrite Ql (U) Negative Negative [facility] No Panel InformationOrdered By: ED PROVIDER on 11-06-2022 Estimated Creatinine Clearance Calc 83.82 ml/min [facility] Estimated GFR (MDRD) Amer 104 mL/min >60 [facility] Comment on above: GFR Calc Estimated GFR (MDRD) Non-Af Amer 86 mL/min >60 [facility] Comment on above: Non- GFR Calc Platelets bldOrdered By: ED PROVIDER on 11-06-2022 Platelets (Bld) [#/Vol] 502 10*3/uL 150-450 [facility] Protein Test strip Ql (U)Ord ered By: ED PROVIDER on 11-06-2022 Protein Ql (U) 30 mg/dl Negative [facility] Serum or plasma calcium sanford urement (mass/volume)Ordered By: ED PROVIDER on 11-06-2022 Calcium [Mass/Vol] 9.6 mg/dL 8.5-10.1 [facility] Serum or plasma creatinine m easurement (mass/volume)Ordered By: ED PROVIDER on 11-06-2022 Creatinine [Mass/Vol] 0.76 mg/dL 0.55-1.02 [facility] Comment on above: The validity of the calculated GFR & GFRAA in patients over 70 years has not been determined. Clinical correlation is essential. Serum or plasma urea nitroge n measurement (mass/volume)Ordered By: ED PROVIDER on 11-06-2022 Urea nitrogen [Mass/Vol] 11 mg/dL 7-18 [facility] Squamous epithelial cells de tection in urine sediment by light microscopyOrdered By: ED PROVIDER on 11-06-2022 Epithelial cells.squamous LM Ql (Urine sed) 0-5 SEEN /hpf 5-10 [facility] Thin prep Papanicolaou smear with manual screeningOrdered By: ED PROVIDER on 11-06-2022 Thin prep Papanicolaou smear with manual screening 8 5-15 [facility] Urine blood detectionOrdered By: ED PROVIDER on 11-06-2022 RBC Ql (U) 10 /ul Negative [facility] RBC Ql (U) 0-5 SEEN /hpf 0-5 [facility] Urine clarityOrdered By: ED PROVIDER on 11-06-2022 Clarity (U) Sl. Cloudy Clear [facility] Urine color determinationOrd ered By: ED PROVIDER on 11-06-2022 Color (U) Yellow Yellow [facility] Urine glucose detectionOrder ed By: ED PROVIDER on 11-06-2022 Glucose Ql (U) 50 mg/dl Normal [facility] Urine leukocyte esterase det ection by dipstickOrdered By: ED PROVIDER on 11-06-2022 Leukocyte esterase Test strip Ql (U) Negative Negative [facility] Urine pHOrdered By: ED PROVI NORMAN on 11-06-2022 pH (U) 6.5 [pH] 5.0 - 8.0 [facility] Urine sediment bacteria coun t by microscopy (number/high power field)Ordered By: ED PROVIDER on 11-06-2022 Bacteria LM.HPF (Urine sed) [#/Area] 0 /[HPF] None Seen [facility] Urine specific gravity measu rementOrdered By: ED PROVIDER on 11-06-2022 Specific gravity (U) [Rel density] 1.020 1.002-1.030 [facility] Urobilinogen Auto test strip Ql (U)Ordered By: ED PROVIDER on 11-06-2022 Urobilinogen Ql (U) 1 mg/dl Normal [facility] INHOUSE Rapid Covid/ Flu A/ Flu BOrdered By: Yaa Calderon on 02-22-2022 SARS-CoV-2 (COVID-19) RNA MICHELLE+probe Ql (Unsp spec) Negative Normal [facility]; [facility] Work Phone: CAMIOVelvira 01-23-2022 CNOV Office Visit (UCWSTR ) -------- OFE GIMENEZ ([id number]) 1975 F Date Time Provider Department 01/23/22 8:45 AM ABRAHAN PETERSON [facility] During your visit today, we recorded the following information about you: Temperature Pulse Respiration Blood pressure 99.4 degrees 89/minute 18/minute 146/88 Weight 62.3 kg Abrahan Peterson APRN.CNP 01/23/2022 10:11 AM Signed Subjective HPI HPI Ofe Gimenez is a [...] symptoms persist. Agrees to plan Declines avs Abrahan Peterson APRN.ANGEL Referring Provider: SELF [200] Allergies As of Date: 01/23/2022 (No Known Allergies) Date Reviewed: 01/23/2022 Reviewed by: Abrahan Peterson APRN.CHILD CARE SITTER - Fully Assessed Reason for Visit: Cough [28] Cmt: cough, ST, and irritated eyes x 1.5 weeks Primary Visit Diagnosis:Lower resp. tract infection [J22] Other Visit Diagnosis:Conjunctivitis of both eyes, unspecified conjunctivitis type [H10.9] Order(s):doxycycline monohydrate 100 mg tabletTake 1 tablet by mouth twice daily for 7 days.Disp: 14 tabletRfl: 0 predniSONE (DELTASONE) 20 mg tabletTake 2 tablets by mouth once daily for 5 days.Disp: 10 tabletRfl: 0 trimethoprim-polymyxin (NEREIDA (more content not included)... Normal [facility] CNOVon 08-28-2021 CNOV Office Visit (UCWSTR ) -------- WENAURORAOFE ([id number]) 1975 F Date Time Provider Department 08/28/21 8:30 AM MELVA REYNA [facility] During your visit today, we recorded the following information about you: Temperature Pulse Respiration Blood pressure 98.3 degrees 86/minute 18/minute 142/82 Weight 66.5 kg Melva Reyna APRN.CHILD CARE SITTER 08/28/2021 9:11 AM Addendum Albuterol nebulizer every 4-6 hours * Prednisone 40 mg (2 tablets) per day for 5 days, take in morning or early in day * Do not NSAIDs during this 5 day course (ibuprofen, naproxen, Motrin, Aleve, Advil) Tylenol only during prednisone use * Follow up with primary care provider if no improvement with treatment Mucinex DM as directed on page Advise eye redness may be viral not bacterial, prescription given if discharge is goupy green thick How to Manage Common Symptoms Associated with COVID for Adults Fever- Fever is a temperature over 100.4 F and can occur when the body is fighting an infection. To help treat a fever: - Drink plenty of fluids and stay well hydrated. - Eat small amounts of easy to digest food. - Rest. Your body needs rest to recover, but getting up and moving around the house frequently is a good idea. You should try to continue doing your normal daily activities (bathing, toileting, grooming, cooking), though you will probably feel tired, and need to rest often. - Avoid any heavy activity or exercise, as this will increase your body temperature. - Dress in light clothing and stay covered in a light sheet. Keep the room temperature cool. - Take a slightly warm (not cold or cool) bath, or apply damp washcloths to the forehead and wrists. Cough- Cough is a common symptom associated with COVID and can be bothersome. To help treat a cough: - Stay well hydrated. Try warm water or tea with lemon and/or honey to help soothe the cough. - Use a humidifier to add moisture to the air. - Try a product with menthol, like a cough drop or a rub for your chest such as Vicks, which can help reduce cough. - Try cough drops. - Avoid smoking and other strong odors or perfumes. - Try breathing exercises to keep your lungs open and clear. Take a big deep breath through your nose and hold for 5 seconds before slowly releasing. Repeat frequently, while you are awake. Congestion- Runny nose or nasal congestion can occur with COVID. Treatment can help relieve symptoms: - Try OTC nasal saline spray, or nasal saline rinse to relieve mucus congestion. - Nasal strips can help keep nasal passages open, to increase airflow. - Elevating your head with an extra pillow in bed can help reduce congestion. - Using a humidifier can increase moisture in the air, and make breathing easier. Sore Throat- Another common symptom with COVID, can be managed at home by: - Stay well hydrated. - Gargle with salt water ? mix ? teaspoon salt with 1 cup of warm water and gargle. This helps to loosen mucus in the back of the throat and may reduce discomfort. - Try ice chips, popsicles or lozenges to soothe the throat. Nausea/Vomiting/Diarrhea - These are common symptoms, and staying hydrated is most important. - If you are nauseous or vomiting, start with small sips of water every 10-15 minutes and increase as tolerated. You can try sucking an ice cube too. - If tolerating, you can try pedialyte or Gatorade, or flat sprite or guillermo-kris. Start slowly and increase as you are able to. - Instead of meals, try smaller, more frequent snacks. Try eating bland foods like crackers, toast, rice, and applesauce. Avoid spicy, greasy or fried foods and dairy containing foods. Even if you aren't feeling hungry due to lack of smell or taste, it is important to try to take in some food when you are able. - After drinking and eating, rest in an upright position for up to two hours as needed to help decrease nauseous feelings. Try closing your eyes, avoid moving and watching TV. - Avoid strong odors that can make you feel more nauseated. When to seek emergency medical attention Look for emergency warning signs for COVID-19. If having any of these symptoms, seek emergency medical care immediately: - Trouble breathing - Persistent pain or pressure in the chest - New confusion - Inability to wake or stay awake - Bluish lips or face *This list is not all possible symptoms. Please call your medical provider for any other symptoms that are severe or concerning to you. Melva Reyna, SPIRAL MACHINE OPERATOR.CHILD CARE SITTER 08/28/2021 9:16 AM Signed Subjective HPI HPI Ofe Gimenez is a 46 year old female who presents today for CC of cough, congestion, wheezing, red eyes and drainage. She states she is also wheezing Symptoms include: Fever (?100.4F): No or Chills: No Cough: Yes Shortness of breath: No or Difficulty breathing: No Fatigue: No Muscle aches: No Headache: Yes New loss of smell (more content not included)... Normal [facility] COVID w FLU A+B Routon 08-28 Influenza A PCR Negative Normal [facility] Comment on above: Performed By: #### C OVFLU #### [place] [id number] [place] [address] Influenza B PCR Negative Normal [facility] Comment on above: Performed By: #### C OVFLU #### [place] [id number] [place] [phone] SARS-CoV-2 (COVID-19) RNA MICHELLE+probe Ql (Unsp spec) UPPER RESPIRATORY TRACT SWAB Normal [facility] Comment on above: Performed By: #### C OVFLU #### [place] [address] [place] [address] SARS-CoV-2 (COVID-19) RNA MICHELLE+probe Ql (Unsp spec) Positive for COVID19 (SARS CoV2) by RT-PCR or equivalent method. Critically abnormal Negative for COVID19 (SARS CoV2) by RT-PCR or equivalent method. [facility] Comment on above: Result Comment: This test was developed and its performance characteristics determined by [facility] [place]. This test has been authorized by FDA under an Emergency Use Authorization (EUA). This test has been validated in accordance with the FDA's Guidance Document Policy for Diagnostics Testing in Laboratories Certified to Perform High Complexity Testing under CLIA prior to Emergency use Authorization for Coronavirus Disease 2019 during the Public Health Emergency issued on October 19, 2019. Test performed by [facility], [facility] [place], [address] [address]. Performed By: #### C OVFLU #### [place] [address] [place] [address] Britni 08-11-2021 CN Office Visit (UCWSTR ) -------- OFE GIMENEZ ([id number]) 1975 F Date Time Provider Department 08/11/21 6:00 PM LEN MARINELLI [facility] During your visit today, we recorded the following information about you: Temperature Pulse Respiration Blood pressure 98.1 degrees 87/minute 16/minute 130/76 Weight 65.4 kg Len Marinelli APRN.CNP 08/11/2021 6:57 PM Signed CC: Patient presents with: URI: x 4-5 [...] symptoms occur. Patient agreeable to treatment plan. Len Marinelli APRN.ANGEL Marinelli APRN.CNP 08/11/2021 6:50 PM Signed [facility] [address] [place] [address] Emergency Department Diagnosis: Assessment COUGH: Your doctor wants you to have this information about coughing. The body has a cough reflex which helps expel mucous secretions and irritants from the lung and airway passages. Cough spasms are periods of continuous coughing lasting several minutes. Most coughs is caused by virus infections which may last for up to 2-3 weeks. Coughing helps to protect the lung from pneumonia. A persistent cough lasting longer than 4-6 weeks requires medical evaluation by your primary care doctor. Treatment of cough includes measures to loosen the cough and thin the mucous. Warm liquids, cough drops, and nonprescription cough medicine may help reduce dry hacking cough. Use a humidifier if necessary as dry air can make coughs worse. Ultrasonic humidifiers are especially useful as they kill molds and many bacteria. Some cough medicines have antihistamines, decongestants, or alcohol in them; there is no proof that any of these help control cough. Prescription cough medicine or those with dextromethorphan (DM) should be reserved for dry coughs that prevent sleep or cause spasms or chest pain. Avoid any exposure to cigarette smoke as this will worsen the cough or make it last much longer. Call your doctor right away if you or your child have increased (more content not included)... Normal [facility] Raji 08-11-2021 PEPE Telephone (UCWSTR) -------- OFE GIMENEZ ([id number]) 1975 F Date Time Provider Department 08/11/21 ORA LECHUGA [facility] During your visit today, we recorded the following information about you: Ora Lechuga APRN.CNP 08/11/2021 8:18 PM Signed CXR negative for infiltrates. Makes notion of COPD, patient denies history of She is to take ATB and steroids prescribed by provider. Follow up with PCP. Andie Akhtar 08/12/2021 7:48 PM Signed Patient given results and verbalized understanding of instructions given. Andie kAhtar Allergies As of Date: 08/11/2021 (No Known Allergies) Date Reviewed: 08/11/2021 Reviewed by: Jennifer Cruz Ma - Fully Assessed Reason for Visit: Results [95] Prescriptions as of 08/12/2021 - doxycycline monohydrate 100 mg tablet Take 1 tablet by mouth twice daily for 10 days. - predniSONE (DELTASONE) 10 mg tablet Take 4 tabs daily for 3 days, then 2 tabs daily for 3 days, then 1 tab daily for 3 days with food. - ipratropium-albuterol (DUONEB) 0.5 mg-3 mg(2.5 mg base)/3 mL nebu Inhale 3 mL as instructed every 4 hours as needed for wheezing/shortness of breath. - famotidine (PEPCID ORAL) Take 1 tablet by mouth twice daily. - albuterol sulfate (PROAIR RESPICLICK) 90 mcg/actuation aepb Inhale 2 Puffs as instructed every 4 hours as needed (wheezing/shortness of breath). - Cetirizine (ZYRTEC) 10 mg cap Take 1 tablet by mouth daily at bedtime. Problem List As Of Date: 08/11/2021 (None) Encounter Status:Closed by ANDIE AKHTAR on 08/12/21 Normal [facility] COVID w FLU A+B Routon 08-11 Influenza A PCR Positive Critically abnormal [facility] Comment on above: Performed By: #### C OVFLU #### [facility] [address] [place] [address] Influenza B PCR Negative Normal [facility] Comment on above: Performed By: #### C OVFLU #### [place] [id number] SARS-CoV-2 (COVID-19) RNA MICHELLE+probe Ql (Unsp spec) UPPER RESPIRATORY TRACT SWAB Normal [facility] Comment on above: Performed By: #### C OVFLU #### [place] [address] SARS-CoV-2 (COVID-19) RNA MICHELLE+probe Ql (Unsp spec) Negative for COVID19 (SARS CoV2) by RT-PCR or equivalent method. Normal Negative for COVID19 (SARS CoV2) by RT-PCR or equivalent method. [facility] Comment on above: Result Comment: This test was developed and its performance characteristics determined by [facility] [place]. This test has been authorized by FDA under an Emergency Use Authorization (EUA). This test has been validated in accordance with the FDA's Guidance Document Policy for Diagnostics Testing in Laboratories Certified to Perform High Complexity Testing under CLIA prior to Emergency use Authorization for Coronavirus Disease 2019 during the Public Health Emergency issued on October 19, 2019. Test performed by [facility], [facility] [place], [address] [place], [place] [id number]. Performed By: #### C OVFLU #### [place] [address] XR CHEST 2V FRONTAL/LATon XR CHEST 2V FRONTAL/LAT * * *Final Report* * * DATE OF EXAM: Aug 11 2021 7:04PM WOX [id number] - XR CHEST 2V FRONTAL/LAT / PROCEDURE REASON: Cough * * * * Physician Interpretation * * * * EXAMINATION: CHEST RADIOGRAPH (2 VIEW FRONTAL and LATERAL), 08/11/2021 CLINICAL HISTORY: Cough MQ: [id number] EXAM DATE/TIME: 08/11/2021 7:04 PM COMPARISON: PA and lateral chest 09/09/2019, 06/30/2019, and 08/17/2017. RESULT: Lines, tubes, and devices: None. Lungs and pleura: Hyperaeration again seen. Chronic fibrotic changes also again seen in the apical upper lobes, right more than left, unchanged since 08/17/2017. No new infiltrates. No pleural effusion. No pneumothorax. Cardiomediastinal silhouette: Normal cardiomediastinal silhouette. Bones and soft tissues: Unremarkable. IMPRESSION: 1. No acute radiographic abnormalities. 2. Hyperaeration consistent with COPD. 3. 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 Doubler Helper: The Original [employer] Transcribe Date/Time: Aug 11 2021 7:07P Dictated by : NESTOR CRONIN MD This examination was interpreted and the report reviewed and electronically signed by: NESTOR CRONIN MD on Aug 11 2021 7:10PM EST [id number] Normal [facility] XR Chest PA and Lateralon IMPRESSION: 1. No acute radiographic abnormalities. 2. Hyperaeration consistent with COPD. 3. 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 Doubler Helper: The Original [employer] Transcribe Date/Time: Aug 11 2021 7:07P Dictated by : NESTOR CRONIN MD This examination was interpreted and the report reviewed and electronically signed by: NESTOR CRONIN MD on Aug 11 2021 7:10PM [facility] DIVISION OF RADIOLOGY * * *Final Report* * * DATE OF EXAM: Aug 11 2021 7:04PM WOX 5291 - XR CHEST 2V FRONTAL/LAT / PROCEDURE REASON: Cough * * * * Physician Interpretation * * * * EXAMINATION: CHEST RADIOGRAPH (2 VIEW FRONTAL & LATERAL), 08/11/2021 CLINICAL HISTORY: Cough MQ: XC2_6 EXAM DATE/TIME: 08/11/2021 7:04 PM COMPARISON: PA and lateral chest 09/09/2019, 06/30/2019, and 08/17/2017. RESULT: Lines, tubes, and devices: None. Lungs and pleura: Hyperaeration again seen. Chronic fibrotic changes also again seen in the apical upper lobes, right more than left, unchanged since 08/17/2017. No new infiltrates. No pleural effusion. No pneumothorax. Cardiomediastinal silhouette: Normal cardiomediastinal silhouette. Bones and soft tissues: Unremarkable. DIVISION OF RADIOLOGY Provider, [facility] - 08/11/2021 * * *Final Report* * * DATE OF EXAM: Aug 11 2021 7:04PM WOX 5291 - XR CHEST 2V FRONTAL/LAT / PROCEDURE REASON: Cough * * * * Physician Interpretation * * * * EXAMINATION: CHEST RADIOGRAPH (2 VIEW FRONTAL & LATERAL), 08/11/2021 CLINICAL HISTORY: Cough MQ: XC2_6 EXAM DATE/TIME: 08/11/2021 7:04 PM COMPARISON: PA and lateral chest 09/09/2019, 06/30/2019, and 08/17/2017. RESULT: Lines, tubes, and devices: None. Lungs and pleura: Hyperaeration again seen. Chronic fibrotic changes also again seen in the apical upper lobes, right more than left, unchanged since 08/17/2017. No new infiltrates. No pleural effusion. No pneumothorax. Cardiomediastinal silhouette: Normal cardiomediastinal silhouette. Bones and soft tissues: Unremarkable. IMPRESSION IMPRESSION: 1. No acute radiographic abnormalities. 2. Hyperaeration consistent with COPD. 3. 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 Doubler Helper: PSCB Transcribe Date/Time: Aug 11 2021 7:07P Dictated by : NESTOR CRONIN MD This examination was interpreted and the report reviewed and electronically signed by: NESTOR CRONIN MD on Aug 11 2021 7:10PM EST [facility] Radiology Study observation (narrative) [facility] XR Chest PA and LateralOrder ed By: [facility]cf Provider on 08-11-2021 [facility] CNOVon 05-14-2021 CNOV Office Visit ([facility] ) -------- OFE GIMENEZ ([id number]) 1975 F Date Time Provider Department 05/14/21 5:45 PM MARGARITO ALSTON [facility] During your visit today, we recorded the following information about you: Temperature Pulse Respiration Blood pressure 99.7 degrees 92/minute 16/minute 160/92 Weight 63.9 kg Margarito Alston PA-C 05/15/2021 9:13 AM Signed Subjective HPI HPI Ofe Gimenez is a [...] have confirmed and edited as necessary, the [facility] Review of Systems Constitutional: Positive for fever [...] testing ordered; Results will be released to [facility] in 24-48 hours Discussed quarantine, social distancing, hand washing/proper hygiene. Rest, fluids, OTC medications discussed -Reviewed red flags (ie chest pain, shortness of breath) with patient and when to seek care sooner. NELLA Hammond PA-C 05/14/2021 6:45 PM Signed How to Manage Common Symptoms Associated with COVID for Adults Fever- Fever is a tem (more content not included)... Normal [facility] Coronavirus 2019on 1 SARS-CoV-2 (COVID-19) RNA MICHELLE+probe Ql (Unsp spec) UPPER RESPIRATORY TRACT SWAB Normal [facility] Comment on above: Performed By: #### C OVFLU #### [place] [address] SARS-CoV-2 (COVID-19) RNA MICHELLE+probe Ql (Unsp spec) Negative for COVID19 (SARS CoV2) by RT-PCR or equivalent method. Normal Negative for COVID19 (SARS CoV2) by RT-PCR or equivalent method. [facility] Comment on above: Result Comment: This test was developed and its performance characteristics determined by [facility]'s [facility] [place]. This test has been authorized by FDA under an Emergency Use Authorization (EUA). This test has been validated in accordance with the FDA's Guidance Document Policy for Diagnostics Testing in Laboratories Certified to Perform High Complexity Testing under CLIA prior to Emergency use Authorization for Coronavirus Disease 2019 during the Public Health Emergency issued on October 19, 2019. Test performed by [facility], [facility] [place], [address] [place] [address]. Performed By: #### C OVFLU #### [place] [address] 2018 Novel Coronavirus (COVI D-19), MICHELLE ([id number])Ordered By: Dial Screw Assembler on 11-25-2020 2019 Novel Coronavirus (COVID-19), MICHELLE ([id number]) Not detected Normal [facility]; [facility] Work Phone: Comment on above: This nucleic acid am plification test was developed and its performancecharacteristics determined by [facility]. Nucleic acidamplification tests include RT-PCR and TMA. This test has not beenFDA cleared or approved. This test has been authorized by FDA underan Emergency Use Authorization (EUA). This test is only authorizedfor the duration of time the declaration that circumstances existjustifying the authorization of the emergency use of in vitrodiagnostic tests for detection of SARS-CoV-2 virus and/or diagnosisof COVID-19 infection under section 564(b)(1) of the Act, 21 U.S.C.360bbb-3(b) (1), unless the authorization is terminated or revokedsooner.When diagnostic testing is negative, the possibility of a falsenegative result should be considered in the context of a patient'srecent exposures and the presence of clinical signs and symptomsconsistent with COVID-19. An individual without symptoms of COVID-19and who is not shedding SARS-CoV-2 virus would expect to have anegative (not detected) result in this assay. PERFORMED BY: [employer] [place] [id number] [place] (ANTINUCLEAR ANTIBODY) ( [id number])Ordered By: Dial Screw Assembler on 12-24-2019 Nuclear Ab Ql (S) Negative Normal [facility] Work Phone: Comment on above: PATIENT NOT FASTINGP ERFORMED BY: Bond Streetblin [place] [id number] Nuclear Ab Ql (S) Negative Normal Compre[facility]; [facility] Work Phone: Comment on above: PATIENT NOT FASTINGP ERFORMED BY: [employer] [id number] FERRITIN ([id number])Ordered By: Dial Screw Assembler on 12-24-2019 Ferritin [Mass/Vol] 6 ng/mL Abnormal 15-150 Compr ehens[facility] Work Phone: Comment on above: PATIENT NOT FASTINGP ERFORMED BY: [place] [id number] Iron Binding Capacity (TIBC) ([id number])Ordered By: Dial Screw Assembler on 12-24-2019 Iron [Mass/Vol] 11 ug/dL Abnormal 27-159 Comprehen [facility] Work Phone: Comment on above: PATIENT NOT FASTINGP ERFORMED BY: CB [facility] Gwjlse[address] RoadDublin [place] [id number] Iron binding capacity [Mass/Vol] 462 ug/dL Abnormal 250-450 [facility] Work Phone: Comment on above: PATIENT NOT FASTINGP ERFORMED BY: CB [facility] Fbkehp2724 [address] RoadDublin [place] [id number] Iron binding capacity.unsaturated [Mass/Vol] 451 ug/dL Abnormal 131-425 [facility] Work Phone: Comment on above: PATIENT NOT FASTINGP ERFORMED BY: CB [facility] Xzsetm1225 [address] RoadDublin [place] [id number] Iron saturation [Mass fraction] 2 % Abnormal 15-55 [facility] Work Phone: Comment on above: PATIENT NOT FASTINGP ERFORMED BY: CB [facility] Iqwixm1428 [address] RoadDublin [place] [id number] METABOLIC PANEL, COMPREHENSI VE (15305)Ordered By: Dial Screw Assembler on 12-24-2019 Albumin [Mass/Vol] 4.8 g/dL Normal 3.8-4.8 [facility] Work Phone: Comment on above: PATIENT NOT FASTINGP ERFORMED BY: CB [facility] Uprtww8407 [address] RoadDublin [place] [id number] Albumin/Globulin [Mass ratio] 3.0 {ratio} Abnormal 1.2-2.2 [facility] Work Phone: Comment on above: PATIENT NOT FASTINGP ERFORMED BY: CB [facility] Lypkql4216 [address] RoadDublin [place] [id number] ALP [Catalytic activity/Vol] 72 [iU]/L Normal 39-117 [facility] Work Phone: Comment on above: PATIENT NOT FASTINGP ERFORMED BY: CB [facility] Xmfeer7[address]Dublin [place] [id number] ALP [Catalytic activity/Vol] 72 U/L Normal 39-117 [facility]; [facility] Work Phone: Comment on above: PATIENT NOT FASTINGP ERFORMED BY: ANGELINE [facility] Lxnlvr1751 [address] RoadDublin [place] [id number] ALT [Catalytic activity/Vol] 13 [iU]/L Normal 0-32 [facility] Work Phone: Comment on above: PATIENT NOT FASTINGP ERFORMED BY: CB [facility] Naitsa79[address] RoadDublin [place] [id number] ALT [Catalytic activity/Vol] 13 U/L Normal 0-32 [facility]; [facility] Work Phone: Comment on above: PATIENT NOT FASTINGP ERFORMED BY: CB [facility] Azrreu8304 [address] RoadD[address] [place] [id number] AST [Catalytic activity/Vol] 16 [iU]/L Normal 0-40 [facility] Work Phone: Comment on above: PATIENT NOT FASTINGP ERFORMED BY: ANGELINE [facility] Gpcqfh9612 [address] RoadDublin [place] [id number] AST [Catalytic activity/Vol] 16 U/L Normal 0-40 [facility]; [facility] Work Phone: Comment on above: PATIENT NOT FASTINGP ERFORMED BY: ANGELINE [facility] Vknosf1623 [address] RoadDublin [place] [id number] Bilirubin [Mass/Vol] 0.3 mg/dL Normal 0.0-1.2 Comp rehensive [facility] Medicine Work Phone: Comment on above: PATIENT NOT FASTINGP ERFORMED BY: CB [facility] Fqgivx1676 [address] RoadDublin [place] [id number] Calcium [Mass/Vol] 9.8 mg/dL Normal 8.7-10.2 [facility] Work Phone: Comment on above: PATIENT NOT FASTINGP ERFORMED BY: CB [facility] Zcnkty9069 [address] RoadDublin [place] [id number] Chloride [Moles/Vol] 105 mmol/L Normal 96-106 Comp [facility] Work Phone: Comment on above: PATIENT NOT FASTINGP ERFORMED BY: CB [facility] Ojopub8969 [address] RoadD[address] [place] [id number] CO2 [Moles/Vol] 23 mmol/L Normal 20-29 [facility] Internal Medicine Work Phone: Comment on above: PATIENT NOT FASTINGP ERFORMED BY: ANGELINE [facility] Raveau1357 [facility] [id number] Creatinine [Mass/Vol] 0.76 mg/dL Normal 0.57-1.00 [facility] Work Phone: Comment on above: PATIENT NOT FASTINGP ERFORMED BY: [facility]6370 [facility] [id number] GFR/1.73 sq M predicted among blacks CKD-EPI (S/P/Bld) [Vol rate/Area] 109 mL/min/1.73 Normal [facility] Work Phone: Comment on above: PATIENT NOT FASTINGP ERFORMED BY: [facility]6370 [facility] [id number] GFR/1.73 sq M predicted among non-blacks CKD-EPI (S/P/Bld) [Vol rate/Area] 94 mL/min/1.73 Normal [facility] Work Phone: Comment on above: PATIENT NOT FASTINGP ERFORMED BY: [facility]6370 [facility] [id number] Globulin (S) [Mass/Vol] 1.6 g/dL Normal 1.5-4.5 [facility] Internal Medicine Work Phone: Comment on above: PATIENT NOT FASTINGP ERFORMED BY: [facility]6370 [facility] [id number] Glucose [Mass/Vol] 87 mg/dL Normal 65-99 [facility] Work Phone: Comment on above: PATIENT NOT FASTINGP ERFORMED BY: [facility]6370 [facility] [id number] Potassium [Moles/Vol] 4.8 mmol/L Normal 3.5-5.2 [facility] Work Phone: Comment on above: PATIENT NOT FASTINGP ERFORMED BY: CB [facility] Hvebpm0387 [address] RoadDublin [place] [id number] Protein [Mass/Vol] 6.4 g/dL Normal 6.0-8.5 [facility] Work Phone: Comment on above: PATIENT NOT FASTINGP ERFORMED BY: CB [facility] Wuxrnm4708 [address] RoadDublin [place] [id number] Sodium [Moles/Vol] 143 mmol/L Normal 134-144 [facility] Work Phone: Comment on above: PATIENT NOT FASTINGP ERFORMED BY: CB [facility] Wxbjvw2651 [address] RoadDublin [place] [id number] Urea nitrogen [Mass/Vol] 9 mg/dL Normal 6-24 [facility] Internal Medicine Work Phone: Comment on above: PATIENT NOT FASTINGP ERFORMED BY: [facility] Qsyunk4935 [address] RoadDublin [place] [id number] Urea nitrogen/Creatinine [Mass ratio] 12 mg/mg Normal 9- [facility] Work Phone: Comment on above: PATIENT NOT FASTINGP ERFORMED BY: [facility] Biewoe1550 [address] RoadDublin [place] [id number] CBC & PLATELETS (AUTO) ([id number] [id number])Ordered By: Dial Screw Assembler on 12-23-2019 Erythrocyte distribution width (RBC) [Ratio] 19.9 % Abnormal 11.7-15.4 [facility] Work Phone: Comment on above: Test(s) Platelets ca lled to Dr Cuadra on 12/24/2019 at 05:54 ESTPATIENT NOT FASTINGPERFORMED BY: ANGELINE [facility] Ztvckc5248 [address] RoadDublin [place] [id number] BY: [address] [id number] Hematocrit (Bld) [Volume fraction] 26.1 % Abnormal 34.0-46.6 [facility] Work Phone: Comment on above: Test(s) Platelets ca lled to Dr Cuadra on 12/24/2019 at 05:54 ESTPATIENT NOT FASTINGPERFORMED BY: [employer]6370 [facility] [id number] BY: Bed[employer] [id number] Hemoglobin (Bld) [Mass/Vol] 6.9 g/dL Abnormal 11.1-15.9 [facility] Internal Medicine Work Phone: Comment on above: Test(s) Platelets ca lled to Dr Cuadra on 12/24/2019 at 05:54 ESTPATIENT NOT FASTINGPERFORMED BY: [employer]6370 [facility] [id number] BY: Beddit[address] [id number] MCH (RBC) [Entitic mass] 16.5 pg Abnormal 26.6-33.0 [facility] Work Phone: Comment on above: Test(s) Platelets ca lled to Dr Cuadra on 12/24/2019 at 05:54 ESTPATIENT NOT FASTINGPERFORMED BY: [employer]6370 [facility] [id number] BY: [employer] [id number] MCHC (RBC) [Mass/Vol] 26.4 g/dL Abnormal 31.5-35.7 [facility] Internal Medicine Work Phone: Comment on above: Test(s) Platelets ca lled to Dr Cuadra on 12/24/2019 at 05:54 ESTPATIENT NOT FASTINGPERFORMED BY: [facility] (SCCT)lin6370 [facility] [id number] BY: Beddit[address] [id number] MCV (RBC) [Entitic vol] 63 fL Abnormal 79-97 [facility] Work Phone: Comment on above: Test(s) Platelets ca lled to Dr Cuadra on 12/24/2019 at 05:54 ESTPATIENT NOT FASTINGPERFORMED BY: ANGELINE [employer]6370 [facility] [id number] BY: SP[employer]IT [employer] [id number] Morphology Dragan (Bld) [Interp] Note: Normal [facility] Work Phone: Comment on above: Verified by microsco pic examination. Test(s) Platelets ca lled to Dr Cuadra on 12/24/2019 at 05:54 ESTPATIENT NOT FASTINGPERFORMED BY: [employer]36070 [facility] [id number] BY: SP[employer]IT [employer] [id number] Platelets (Bld) [#/Vol] 1036 {x10E3/uL} Abnormal 150-450 [facility] Work Phone: Comment on above: Platelets vary in si ze.Large platelets were observed. Test(s) Platelets ca lled to Dr Cuadra on 12/24/2019 at 05:54 ESTPATIENT NOT FASTINGPERFORMED BY: [employer]36070 [facility] [id number] BY: SP[employer]IT [employer] [id number] Platelets (Bld) [#/Vol] 1036 10*3/uL Abnormal 150-450 [facility]; [facility] Work Phone: Comment on above: Platelets vary in si ze.Large platelets were observed. Test(s) Platelets ca lled to Dr Cuadra on 12/24/2019 at 05:54 ESTPATIENT NOT FASTINGPERFORMED BY: [employer]iz36070 [facility] [id number] BY: SP[employer]IT [employer] [id number] RBC (Bld) [#/Vol] 4.17 {x10E6/uL} Normal 3.77-5.28 [facility] Internal Medicine Work Phone: Comment on above: Polychromasia presen t Test(s) Platelets ca lled to Dr Cuadra on 12/24/2019 at 05:54 ESTPATIENT NOT FASTINGPERFORMED BY: Biz36070 [facility] [id number] BY: [employer] [address] [id number] RBC (Bld) [#/Vol] 4.17 10*6/uL Normal 3.77-5.28 [facility]; [facility] Work Phone: Comment on above: Polychromasia presen t Test(s) Platelets ca lled to Dr Cuadra on 12/24/2019 at 05:54 ESTPATIENT NOT FASTINGPERFORMED BY: [employer]6370 [facility] [id number] BY: SP[employer]IT [employer] [id number] WBC (Bld) [#/Vol] 5.8 {x10E3/uL} Normal 3.4-10.8 [facility] Internal Medicine Work Phone: Comment on above: Test(s) Platelets ca lled to Dr Cuadra on 12/24/2019 at 05:54 ESTPATIENT NOT FASTINGPERFORMED BY: [employer]6370 [facility] [id number] BY: [employer] [address] [id number] WBC (Bld) [#/Vol] 5.8 10*3/uL Normal 3.4-10.8 [facility]; [facility] Work Phone: Comment on above: Test(s) Platelets ca lled to Dr Cuadra on 12/24/2019 at 05:54 ESTPATIENT NOT FASTINGPERFORMED BY: [employer]6370 [facility] [id number] BY: [employer] [address] [id number] Immunoglobulins, Quantitativ e, IgA,IgE, IgG, IgM ([id number])Ordered By: Dial Screw Assembler on 12-23-2019 IgA [Mass/Vol] mg/dL Abnormal 87-352 [facility] Work Phone: Comment on above: Result confirmed on concentration. Test(s) Platelets ca lled to Dr Cuadra on 12/24/2019 at 05:54 ESTPATIENT NOT FASTINGPERFORMED BY: ANGELINE [facility] Llbekt7283 [facility] [id number] BY: Bed[employer] [id number] IgA [Mass/Vol] mg/dL Abnormal 87-352 [employer] [facility]; [facility] Work Phone: Comment on above: Result confirmed on concentration. Test(s) Platelets ca lled to Dr Cuadra on 12/24/2019 at 05:54 ESTPATIENT NOT FASTINGPERFORMED BY: ANGELINE [employer] Mujurb0643 [facility] [id number] BY: CEL[employer]I [address] [id number] IgE Qn [IU]/L Abnormal 6-495 [facility] Work Phone: Comment on above: Test(s) Platelets ca lled to Dr Cuadra on 12/24/2019 at 05:54 ESTPATIENT NOT FASTINGPERFORMED BY: ANGELINE [employer]6[address] [facility] [id number] BY: [employer] Tlkwzokruo[address] [id number] IgE Qn [IU]/L Abnormal 6-495 [facility]; [facility] Work Phone: Comment on above: Test(s) Platelets ca lled to Dr Cuadra on 12/24/2019 at 05:54 ESTPATIENT NOT FASTINGPERFORMED BY: ANGELINE Bedditrp Zxfvdz[address] Kodiak NetworksUNC Health [facility] [id number] BY: [employer]EL[employer]SCI [address] [id number] IgG [Mass/Vol] 381 mg/dL Abnormal 586-1602 [employer] [facility] Work Phone: Comment on above: Test(s) Platelets ca lled to Dr Cuadra on 12/24/2019 at 05:54 ESTPATIENT NOT FASTINGPERFORMED BY: [facility]6370 [facility] [id number] BY: [address] [id number] IgM [Mass/Vol] 32 mg/dL Normal 26-217 [employer] [facility] Work Phone: Comment on above: Test(s) Platelets ca lled to Dr Cuadra on 12/24/2019 at 05:54 ESTPATIENT NOT FASTINGPERFORMED BY: [facility]6370 [facility] [id number] BY: [address] [id number] 2018 Novel Coronavirus (COVI D-19), MICHELLE ([id number])Ordered By: Dial Screw Assembler on 12-12-20192018 Novel Coronavirus (COVID-19), MICHELLE ([id number]) Not Detected Normal [facility] Work Phone: Comment on above: This test was develo ped and its performance characteristics determinedby [facility]. This test has not been FDA cleared orapproved. This test has been authorized by FDA under an Emergency UseAuthorization (EUA). This test has been validated in accordance withthe FDA's Guidance Document (Policy for Diagnostics Testing inLaboratories Certified to Perform High Complexity Testing under CLIAprior to Emergency Use Authorization for Coronavirus Disease-2019during the Public Health Emergency) issued on October 19, 2019.[facility] independent review of this validation is pending. This test isonly authorized for the duration of time the declaration thatcircumstances exist justifying the authorization of the emergency useof in vitro diagnostic tests for detection of SARS-CoV-2 virus and/ordiagnosis of COVID-19 infection under section 564(b)(1) of the Act, 21U.S.C. 360bbb-3(b)(1), unless the authorization is terminated orrevoked sooner. PATIENT NOT FASTINGP ERFORMED BY: [address] [id number] Information: NASAL 2019 Novel Coronavirus (COVID-19), MICHELLE ([id number]) Not detected Normal [facility]; [facility] Work Phone: Comment on above: This test was develo ped and its performance characteristics determinedby [facility]. This test has not been FDA cleared orapproved. This test has been authorized by FDA under an Emergency UseAuthorization (EUA). This test has been validated in accordance withthe FDA's Guidance Document (Policy for Diagnostics Testing inLaboratories Certified to Perform High Complexity Testing under CLIAprior to Emergency Use Authorization for Coronavirus Disease-2019during the Public Health Emergency) issued on October 19, 2019.FDA independent review of this validation is pending. This test isonly authorized for the duration of time the declaration thatcircumstances exist justifying the authorization of the emergency useof in vitro diagnostic tests for detection of SARS-CoV-2 virus and/ordiagnosis of COVID-19 infection under section 564(b)(1) of the Act, 21U.S.C. 360bbb-3(b)(1), unless the authorization is terminated orrevoked sooner. PATIENT NOT FASTINGP ERFORMED BY: Bed[employer] [id number] Information: NASAL Vital Signs Date Time Vital Sign Value Performing Clinician Facility 12-08-2024 09:17-0400 Body temperature 98 [degF] Dr. Yarelis Fitzpatrick DO Work Phone: [facility] 12-08-2024 09:17-0400 Diastolic blood pressure 96 mm[Hg] Dr. Yarelis Fitzpatrick DO Work Phone: [facility] 12-08-2024 09:17-0400 Heart rate 106 /min Dr. Yarelis Fitzpatrick DO Work Phone: [facility] 12-08-2024 09:17-0400 Respiratory rate 22 /min Dr. Yarelis Fitzpatrick DO Work Phone: [facility] 12-08-2024 09:17-0400 SaO2% (BldA) [Mass fraction] 97 % Dr. Yarelis Fitzpatrick DO Work Phone: [facility] 12-08-2024 09:17-0400 Systolic blood pressure 148 mm[Hg] Dr. Yarelis Fitzpatrick DO Work Phone: [facility] 12-08-2024 06:50-0400 Body height 167.[address] Yarelis Fitzpatrick DO Work Phone: [facility] 12-08-2024 06:50-0400 Body mass index (BMI) [Ratio] 22.6 kg/m2 Dr. Yarelis Fitzpatrick DO Work Phone: [facility] 12-08-2024 06:50-0400 Body weight 63.[address] Yarelis Fitzpatrick DO Work Phone: [facility] 11-06-2024 23:37-0400 Body temperature 98.5 [degF] Dr. Yarelis Fitzpatrick DO Work Phone: [facility] 11-06-2024 23:37-0400 Diastolic blood pressure 89 mm[Hg] Dr. Yarelis Fitzpatrick DO Work Phone: [facility] 11-06-2024 23:37-0400 Heart rate 98 /min Dr. Yarelis Fitzpatrick DO Work Phone: [facility] 11-06-2024 23:37-0400 Respiratory rate 18 /min Dr. Yarelis Fitzpatrick DO Work Phone: [facility] 11-06-2024 23:37-0400 SaO2% (BldA) [Mass fraction] 97 % Dr. Yarelis Fitzpatrick DO Work Phone: [facility] 11-06-2024 23:37-0400 Systolic blood pressure 163 mm[Hg] Dr. Yarelis Fitzpatrick DO Work Phone: [facility] 11-06-2024 21:19-0400 Body height 167.[address] Yarelis Fitzpatrick DO Work Phone: [facility] 11-06-2024 21:19-0400 Body mass index (BMI) [Ratio] 22.6 kg/m2 Dr. Yarelis Fitzpatrick DO Work Phone: [facility] 11-06-2024 21:19-0400 Body weight 63.[address] Yarelis Fitzpatrick DO Work Phone: [facility] 11-01-2024 09:28-0400 Body mass index (BMI) [Ratio] 22.2 kg/m2 Dr. Yarelis Fitzpatrick DO Work Phone: [facility] 11-01-2024 09:28-0400 Body temperature 97.6 [degF] Dr. Yarelis Fitzpatrick DO Work Phone: [facility] 11-01-2024 09:28-0400 Body weight 62.[address] Yarelis Fitzpatrick DO Work Phone: [facility] 11-01-2024 09:28-0400 Diastolic blood pressure 90 mm[Hg] Dr. Yarelis Fitzpatrick DO Work Phone: [facility] 11-01-2024 09:28-0400 Heart rate 73 /min Dr. Yarelis Fitzpatrick DO Work Phone: [facility] 11-01-2024 09:28-0400 Respiratory rate 20 /min Dr. Yarelis Fitzpatrick DO Work Phone: [facility] 11-01-2024 09:28-0400 SaO2% (BldA) [Mass fraction] 95 % Dr. Yarelis Fitzpatrick DO Work Phone: [facility] 11-01-2024 09:28-0400 Systolic blood pressure 144 mm[Hg] Dr. Yarelis Fitzpatrick DO Work Phone: [facility] 08-30-2024 08:09-0500 Body height 167.[address] Yarelis Fitzpatrick DO Work Phone: [facility] 08-30-2024 08:09-0500 Body mass index (BMI) [Ratio] 23.1 kg/m2 Dr. Yarelis Fitzpatrick DO Work Phone: [facility] 08-30-2024 08:09-0500 Body temperature 97.7 [degF] Dr. Yarelis Fitzpatrick DO Work Phone: [facility] 08-30-2024 08:09-0500 Body weight 64.[address] Yarelis Fitzpatrick DO Work Phone: [facility] 08-30-2024 08:09-0500 Diastolic blood pressure 86 mm[Hg] Dr. Yarelis Fitzpatrick DO Work Phone: [facility] 08-30-2024 08:09-0500 Heart rate 92 /min Dr. Yarelis Fitzpatrick DO Work Phone: [facility] 08-30-2024 08:09-0500 Respiratory rate 14 /min Dr. Yarelis Fitzpatrick DO Work Phone: [facility] 08-30-2024 08:09-0500 SaO2% (BldA) [Mass fraction] 96 % Dr. Yarelis Fitzpatrick DO Work Phone: [facility] 08-30-2024 08:09-0500 Systolic blood pressure 161 mm[Hg] Dr. Yarelis Fitzpatrick DO Work Phone: [facility] 08-15-2023 08:44-0500 Body height 167.[address] Yarelis Fitzpatrick Work Phone: [facility] 08-15-2023 08:44-0500 Body mass index (BMI) [Ratio] 22.3 kg/m2 Dr. Yarelis Fitzpatrick Work Phone: [facility] 08-15-2023 08:44-0500 Body temperature 97.6 [degF] Dr. Yarelis Fitzpatrick Work Phone: [facility] 08-15-2023 08:44-0500 Body weight 62.[address] Yarelis Fitzpatrick Work Phone: [facility] 08-15-2023 08:44-0500 Diastolic blood pressure 91 mm[Hg] Dr. Yarelis Fitzpatrick Work Phone: [facility] 08-15-2023 08:44-0500 Heart rate 89 /min Dr. Yarelis Fitzpatrick Work Phone: [facility] 08-15-2023 08:44-0500 Respiratory rate 18 /min Dr. Yarelis Fitzpatrick Work Phone: [facility] 08-15-2023 08:44-0500 SaO2% (BldA) [Mass fraction] 98 % Dr. Yarelis Fitzpatrick Work Phone: [facility] 08-15-2023 08:44-0500 Systolic blood pressure 152 mm[Hg] Dr. Yarelis Fitzpatrick Work Phone: [facility] 01-24-2023 06:02-0400 Body height 167.[address] Yarelis Fitzpatrick Work Phone: [facility] 01-24-2023 06:02-0400 Body mass index (BMI) [Ratio] 21.4 kg/m2 Dr. Yarelis Fitzpatrick Work Phone: [facility] 01-24-2023 06:02-0400 Body temperature 98.2 [degF] Dr. Yarelis Fitzpatrick Work Phone: [facility] 01-24-2023 06:02-0400 Body weight 60.[address] Yarelis Fitzpatrick Work Phone: [facility] 01-24-2023 06:02-0400 Diastolic blood pressure 88 mm[Hg] Dr. Yarelis Fitzpatrick Work Phone: [facility] 01-24-2023 06:02-0400 Heart rate 107 /min Dr. Yarelis Fitzpatrick Work Phone: [facility] 01-24-2023 06:02-0400 Respiratory rate 18 /min Dr. Yarelis Fitzpatrick Work Phone: [facility] 01-24-2023 06:02-0400 SaO2% (BldA) [Mass fraction] 96 % Dr. Yarelis Fitzpatrick Work Phone: [facility] 01-24-2023 06:02-0400 Systolic blood pressure 144 mm[Hg] Dr. Yarelis Fitzpatrick Work Phone: [facility] 01-05-2023 09:46-0400 Body height 167.64 cm Patience Matute MA [facility] Work Phone: 01-05-2023 09:46-0400 Body mass index (BMI) [Ratio] 21.63 kg/m2 Patience Matute MA [facility]; [facility] Work Phone: 01-05-2023 09:46-0400 Body surface area Derived from formula 1.69 m2 Patience Matute MA [facility]; [facility] Work Phone: 01-05-2023 09:46-0400 Body weight 60.78 kg Patience Matute MA [facility]; [facility] Work Phone: 12-30-2022 11:59-0400 Body height 167.64 cm [facility] Work Phone: Comment on above: VIRTUAL 12-30-2022 11:59-0400 Body mass index (BMI) [Ratio] 23.24 kg/m2 Lyubovfely Lemon [facility] Work Phone: Comment on above: VIRTUAL 12-30-2022 11:59-0400 Body surface area Derived from formula 1.74 m2 Lyubovfely Lemon [facility] Work Phone: Comment on above: VIRTUAL 12-30-2022 11:59-0400 Body weight 65.32 kg [facility] Work Phone: Comment on above: VIRTUAL 12-16-2022 11:07-0400 Body height 167.64 cm Kiesha Martinez LPN [facility]; [facility] Work Phone: 12-16-2022 11:07-0400 Body mass index (BMI) [Ratio] 23.24 kg/m2 Kiesha Slarb CONTROL BOARD OPERATOR [facility]; [facility] Work Phone: 12-16-2022 11:07-0400 Body surface area Derived from formula 1.74 m2 Kiesha Slarb CONTROL BOARD OPERATOR [facility]; [facility] Work Phone: 12-16-2022 11:07-0400 Body temperature 97.9 [degF] Kiesha Slarb CONTROL BOARD OPERATOR [facility]; [facility] Work Phone: Comment on above: Method: Temporal 12-16-2022 [id number] Body weight 65.32 kg Kiesha Slarb CONTROL BOARD OPERATOR [facility]; [facility] Work Phone: 12-16-2022 11:07-0400 Diastolic blood pressure 78 mm[Hg] Kiesha Slarb CONTROL BOARD OPERATOR [facility]; [facility] Work Phone: Comment on above: Patient Position: Sitting; Cuff Location : Left Arm; Cuff Size: Standard 12-16-2022 11:07-0400 Heart rate 86 /min Kiesha Slarb CONTROL BOARD OPERATOR [facility]; [facility] Work Phone: Comment on above: Pattern: Regular 12-16-2022 11:07-0400 Respiratory rate 18 /min Kiesha Slarb CONTROL BOARD OPERATOR [facility]; [facility] Work Phone: Comment on above: Pattern: Unlabored 12-16-2022 11:07-0400 SaO2% (BldA) [Mass fraction] 98 % Kiesha Slarb CONTROL BOARD OPERATOR [facility]; [facility] Work Phone: Comment on above: Room air 12-16-2022 11:07-0400 Systolic blood pressure 122 mm[Hg] Kiesha Slarb CONTROL BOARD OPERATOR [facility]; [facility] Work Phone: Comment on above: Patient Position: Sitting; Cuff Location : Left Arm; Cuff Size: Standard 12-05-2022 12:10-0400 Body height 167.64 cm Yarelis Fitzpatrick DO Work Phone: [facility]; [facility] Work Phone: 12-05-2022 12:10-0400 Body mass index (BMI) [Ratio] 23.24 kg/m2 Yarelis Amari DO Work Phone: [facility]; [facility] Work Phone: 12-05-2022 12:10-0400 Body surface area Derived from formula 1.74 m2 Yarelis Amari DO Work Phone: [facility]; [facility] Work Phone: 12-05-2022 12:10-0400 Body weight 65.32 kg Yarelis Amari DO Work Phone: [facility]; [facility] Work Phone: 12-05-2022 12:10-0400 Diastolic blood pressure 80 mm[Hg] Yarelis Amari DO Work Phone: [facility]; [facility] Work Phone: Comment on above: Patient Position: Sitting 12-05-2022 12:10-0400 Heart rate 84 /min Yarelis Amari DO Work Phone: [facility]; [facility] Work Phone: Comment on above: Pattern: Regular 12-05-2022 12:10-0400 Systolic blood pressure 130 mm[Hg] Yarelis Amari DO Work Phone: [facility]; [facility] Work Phone: Comment on above: Patient Position: Sitting 11-07-2022 00:57-0400 Body temperature 98.4 [degF] [facility] 11-07-2022 00:57-0400 Diastolic blood pressure 88 mm[Hg] [facility] 11-07-2022 00:57-0400 Heart rate 88 /min [facility] 11-07-2022 00:57-0400 Respiratory rate 16 /min [facility] 11-07-2022 00:57-0400 Systolic blood pressure 168 mm[Hg] [facility] 11-07-2022 00:00-0400 SaO2% (BldA) [Mass fraction] 97 % [facility] 11-06-2022 22:01-0400 Body height 167.64 cm [facility] 11-06-2022 22:01-0400 Body mass index (BMI) [Ratio] 23.3 kg/m2 [facility] 11-06-2022 22:01-0400 Body weight 65.54 kg [facility] 11-06-2022 09:26-0400 Body temperature 99.3 [degF] Abrahan Nicholas SPIRAL MACHINE OPERATOR.CHILD CARE SITTER Work Phone: [facility] 11-06-2022 09:26-0400 Body weight 65.05 kg Abrahan Nicholas SPIRAL MACHINE OPERATOR.CHILD CARE SITTER Work Phone: [facility] 11-06-2022 09:26-0400 Diastolic blood pressure 92 mm[Hg] Abrahan Nicholas SPIRAL MACHINE OPERATOR.CHILD CARE SITTER Work Phone: [facility] 11-06-2022 09:26-0400 Heart rate 107 /min Abrahan Nicholas SPIRAL MACHINE OPERATOR.CHILD CARE SITTER Work Phone: [facility] 11-06-2022 09:26-0400 Respiratory rate 18 /min Abrahan Nicholas SPIRAL MACHINE OPERATOR.CHILD CARE SITTER Work Phone: [facility] 11-06-2022 09:26-0400 SaO2% (BldA) [Mass fraction] 96 % Abrahan Nicholas SPIRAL MACHINE OPERATOR.CHILD CARE SITTER Work Phone: [facility] 11-06-2022 09:26-0400 Systolic blood pressure 142 mm[Hg] Abrahan Nicholas SPIRAL MACHINE OPERATOR.CHILD CARE SITTER Work Phone: [facility] 10-14-2022 10:24-0500 Body height 167.64 cm Yarelis Saezon DO Work Phone: [facility]; [facility] Work Phone: 10-14-2022 10:24-0500 Body mass index (BMI) [Ratio] 23.24 kg/m2 Yarelis Amari DO Work Phone: [facility]; [facility] Work Phone: 10-14-2022 10:24-0500 Body surface area Derived from formula 1.74 m2 Yarelis Fitzpatrick DO Work Phone: [facility]; [facility] Work Phone: 10-14-2022 10:24-0500 Body weight 65.32 kg Yarelis Fitzpatrick DO Work Phone: [facility]; [facility] Work Phone: 10-14-2022 10:24-0500 Diastolic blood pressure 80 mm[Hg] Yarelis Fitzpatrick DO Work Phone: [facility]; [facility] Work Phone: Comment on above: Patient Position: Sitting 10-14-2022 10:24-0500 Heart rate 88 /min Yarelis Fitzpatrick DO Work Phone: [facility]; [facility] Work Phone: Comment on above: Pattern: Regular 10-14-2022 10:24-0500 Systolic blood pressure 130 mm[Hg] Yarelis Fitzpatrick DO Work Phone: [facility]; [facility] Work Phone: Comment on above: Patient Position: Sitting 10-07-2022 10:41-0500 Body height 167.64 cm [facility]ov [facility] Work Phone: 10-07-2022 10:41-0500 Body mass index (BMI) [Ratio] 23.34 kg/m2 [facility]ov [facility] Work Phone: 10-07-2022 10:41-0500 Body surface area Derived from formula 1.74 m2 Lyubov [facility] Work Phone: 10-07-2022 10:41-0500 Body temperature 98.5 [degF] [facility]ov [facility] Work Phone: Comment on above: Method: Thermal Scan 10-07-2022 10:41-0500 Body weight 65.59 kg Lyubov Lemon [facility] Work Phone: 10-07-2022 10:41-0500 Diastolic blood pressure 80 mm[Hg] Lyubov Lemon [facility] Work Phone: Comment on above: Patient Position: Sitting; Cuff Location : Left Arm; Cuff Size: Standard 10-07-2022 10:41-0500 Heart rate 86 /min Lyubov Lemon [facility] Work Phone: Comment on above: Pattern: Regular 10-07-2022 10:41-0500 Respiratory rate 16 /min Lyubov Lemon [facility] Work Phone: Comment on above: Pattern: Unlabored 10-07-2022 10:41-0500 SaO2% (BldA) [Mass fraction] 97 % Lyubov Lemon [facility]; [facility] Work Phone: Comment on above: Room air 10-07-2022 10:41-0500 Systolic blood pressure 130 mm[Hg] Lyubov Lemon [facility] Work Phone: Comment on above: Patient Position: Sitting; Cuff Location : Left Arm; Cuff Size: Standard 2022 07:57-0400 Body height 167.64 cm Erasmo Huynh LPN [facility]; [facility] Work Phone: 2022 07:57-0400 Body mass index (BMI) [Ratio] 23.34 kg/m2 Erasmo Huynh LPN [facility]; [facility] Work Phone: 2022 07:57-0400 Body surface area Derived from formula 1.74 m2 Erasmo Huynh LPN [facility]; [facility] Work Phone: 2022 07:57-0400 Body temperature 97 [degF] Erasmo Huynh LPN [facility]; [facility] Work Phone: Comment on above: Method: Infrared 2022 07:57-0400 Body weight 65.59 kg Erasmo Huynh LPN [facility]; [facility] Work Phone: 2022 07:57-0400 Diastolic blood pressure 80 mm[Hg] Erasmo Huynh LPN [facility]; [facility] Work Phone: Comment on above: Patient Position: Sitting; Cuff Location : Left Arm; Cuff Size: Standard 2022 07:57-0400 Heart rate 92 /min Erasmo Huynh LPN [facility]; [facility] Work Phone: Comment on above: Pattern: Regular 2022 07:57-0400 Respiratory rate 16 /min Erasmo Huynh LPN [facility]; [facility] Work Phone: Comment on above: Pattern: Unlabored 2022 07:57-0400 SaO2% (BldA) [Mass fraction] 96 % Erasmo Huynh LPN [facility]; [facility] Work Phone: Comment on above: Room air 2022 07:57-0400 Systolic blood pressure 122 mm[Hg] Erasmo Huynh LPN [facility]; [facility] Work Phone: Comment on above: Patient Position: Sitting; Cuff Location : Left Arm; Cuff Size: Standard 04-26-2022 08:41-0400 Body height 167.64 cm Kiesha Larb CONTROL BOARD OPERATOR [facility]; [facility] Work Phone: Comment on above: pt did not report-virtual 04-26-2022 08:41-0400 Body mass index (BMI) [Ratio] 21.67 kg/m2 Kiesha Slarb CONTROL BOARD OPERATOR [facility]; [facility] Work Phone: Comment on above: pt did not report-virtual 04-26-2022 08:41-0400 Body surface area Derived from formula 1.69 m2 Kiesha Slarb CONTROL BOARD OPERATOR [facility]; [facility] Work Phone: Comment on above: pt did not report-virtual 04-26-2022 08:41-0400 Body weight 60.9 kg Kiesha Slarb LAURO [facility]; [facility] Work Phone: Comment on above: pt did not report-virtual 02-22-2022 10:05-0400 Body height 167.64 cm Yaa Calderon MA [facility]; [facility] Work Phone: 02-22-2022 10:05-0400 Body mass index (BMI) [Ratio] 21.67 kg/m2 Yaa Calderon MA [facility]; [facility] Work Phone: 02-22-2022 10:05-0400 Body surface area Derived from formula 1.69 m2 Yaa Calderon MA [facility]; [facility] Work Phone: 02-22-2022 10:05-0400 Body temperature 97.1 [degF] Yaa Calderon MA [facility]; [facility] Work Phone: Comment on above: Method: Temporal 02-22-2022 [id number] Body weight 60.9 kg Yaa Calderon MA [facility]; [facility] Work Phone: 02-22-2022 10:05-0400 Diastolic blood pressure 80 mm[Hg] Yaa Calderon MA [facility]; [facility] Work Phone: Comment on above: Patient Position: Sitting; Cuff Location : Left Arm; Cuff Size: Standard 02-22-2022 10:05-0400 Heart rate 102 /min Yaa Calderon MA [facility]; [facility] Work Phone: Comment on above: Pattern: Regular 02-22-2022 10:05-0400 Respiratory rate 16 /min Yaa Calderon MA [facility]; [facility] Work Phone: Comment on above: Pattern: Unlabored 02-22-2022 10:05-0400 SaO2% (BldA) [Mass fraction] 95 % Yaa Calderon MA [facility]; [facility] Work Phone: Comment on above: Room air 02-22-2022 10:05-0400 Systolic blood pressure 130 mm[Hg] Yaa Calderon MA [facility]; [facility] Work Phone: Comment on above: Patient Position: Sitting; Cuff Location : Left Arm; Cuff Size: Standard 01-23-2022 08:48-0400 Body temperature 99.39 [degF] Abrahan Peterson SPIRAL MACHINE OPERATOR.CHILD CARE SITTER Work Phone: [facility] 01-23-2022 08:48-0400 Body weight 62.32 kg Abrahan Peterson SPIRAL MACHINE OPERATOR.CHILD CARE SITTER Work Phone: [facility] 01-23-2022 08:48-0400 Diastolic blood pressure 88 mm[Hg] Abrahan Peterson SPIRAL MACHINE OPERATOR.CHILD CARE SITTER Work Phone: [facility] 01-23-2022 08:48-0400 Heart rate 89 /min Abrahan Peterson SPIRAL MACHINE OPERATOR.CHILD CARE SITTER Work Phone: [facility] 01-23-2022 08:48-0400 Respiratory rate 18 /min Abrahan Peterson SPIRAL MACHINE OPERATOR.CHILD CARE SITTER Work Phone: [facility] 01-23-2022 08:48-0400 SaO2% (BldA) [Mass fraction] 97 % Abrahan Peterson SPIRAL MACHINE OPERATOR.CHILD CARE SITTER Work Phone: [facility] 01-23-2022 08:48-0400 Systolic blood pressure 146 mm[Hg] Abrahan Peterson SPIRAL MACHINE OPERATOR.CHILD CARE SITTER Work Phone: [facility] 10-15-2021 08:33-0500 Body height 167.64 cm [facility] Work Phone: Comment on above: no vs taken as this is phone encounter d ue to covid 10-15-2021 08:33-0500 Body mass index (BMI) [Ratio] 21.67 kg/m2 Haydee Gravius [facility] Work Phone: Comment on above: no vs taken as this is phone encounter d ue to covid 10-15-2021 08:33-0500 Body surface area Derived from formula 1.69 m2 [facility] Work Phone: Comment on above: no vs taken as this is phone encounter d ue to covid 10-15-2021 08:33-0500 Body weight 60.9 kg Haydee Sorensen [employer] [facility]; [facility] Work Phone: Comment on above: no vs taken as this is phone encounter d ue to covid 07-05-2021 13:38-0500 Body height 167.64 cm Erasmo Huynh LPN [facility]; [facility] Work Phone: 07-05-2021 13:38-0500 Body mass index (BMI) [Ratio] 21.67 kg/m2 Erasmo Huynh LPN [facility]; [facility] Work Phone: 07-05-2021 13:38-0500 Body surface area Derived from formula 1.69 m2 Erasmo Huynh LPN [facility]; [facility] Work Phone: 07-05-2021 13:38-0500 Body weight 60.9 kg Erasmo Huynh LPN [facility]; [facility] Work Phone: 07-02-2021 10:31-0500 Body height 167.64 cm Yaa Calderon MA [facility]; [facility] Work Phone: Comment on above: pt reported 07-02-2021 10:31-0500 Body mass index (BMI) [Ratio] 21.67 kg/m2 Yaa Calderon MA [facility]; [facility] Work Phone: Comment on above: pt reported 07-02-2021 10:31-0500 Body surface area Derived from formula 1.69 m2 Yaa Calderon MA [facility]; [facility] Work Phone: Comment on above: pt reported 07-02-2021 10:31-0500 Body weight 60.9 kg Yaa Calderon MA [facility]; [facility] Work Phone: Comment on above: pt reported 02-09-2021 13:15-0400 Body height 167.64 cm Erasmo Huynh LPN [facility]; [facility] Work Phone: 02-09-2021 13:15-0400 Body mass index (BMI) [Ratio] 21.67 kg/m2 Erasmo Huynh LPN [facility]; [facility] Work Phone: 02-09-2021 13:15-0400 Body surface area Derived from formula 1.69 m2 Erasmo Huynh LPN [facility]; [facility] Work Phone: 02-09-2021 13:15-0400 Body temperature 97.9 [degF] Erasmo Huynh LPN [facility]; [facility] Work Phone: Comment on above: Method: Infrared 02-09-2021 13:15-0400 Body weight 60.9 kg Erasmo Huynh LPN [facility]; [facility] Work Phone: 02-09-2021 13:15-0400 Diastolic blood pressure 82 mm[Hg] Erasmo Huynh LPN [facility]; [facility] Work Phone: Comment on above: Patient Position: Sitting; Cuff Location : Left Arm; Cuff Size: Standard 02-09-2021 13:15-0400 Heart rate 88 /min Erasmo Huynh LPN [facility]; [facility] Work Phone: Comment on above: Pattern: Regular 02-09-2021 13:15-0400 Respiratory rate 16 /min Erasmo Huynh LPN [facility]; [facility] Work Phone: Comment on above: Pattern: Unlabored 02-09-2021 13:15-0400 SaO2% (BldA) [Mass fraction] 97 % Erasmo Huynh LPN [facility]; [facility] Work Phone: Comment on above: Room air 02-09-2021 13:15-0400 Systolic blood pressure 132 mm[Hg] Erasmo Huynh LPN [facility]; [facility] Work Phone: Comment on above: Patient Position: Sitting; Cuff Location : Left Arm; Cuff Size: Standard 01-22-2021 08:56-0400 Body height 167.64 cm Blanca Morrow CONTROL BOARD OPERATOR [facility]; [facility] Work Phone: 01-22-2021 08:56-0400 Body mass index (BMI) [Ratio] 21.67 kg/m2 [facility]; [facility] Work Phone: 01-22-2021 08:56-0400 Body surface area Derived from formula 1.69 m2 [facility]; [facility] Work Phone: 01-22-2021 08:56-0400 Body weight 60.9 kg [facility]; [facility] Work Phone: 10-12-2020 09:15-0500 BMI (Body Mass Index) 21.67 kg/m2 Katia Desai CHILD CARE SITTER Work Phone: [facility]; [facility] Work Phone: 10-12-2020 09:15-0500 Body Temperature 98.8 [degF] Katia Desai CHILD CARE SITTER Work Phone: [facility]; [facility] Work Phone: 10-12-2020 09:15-0500 Body weight 60.9 kg Katia Desai CHILD CARE SITTER Work Phone: [facility]; [facility] Work Phone: 10-12-2020 09:15-0500 BSA (Body Surface Area) 1.69 m2 Katia Desai CHILD CARE SITTER Work Phone: [facility]; [facility] Work Phone: 10-12-2020 09:15-0500 Height 167.64 cm Katia Desai CHILD CARE SITTER Work Phone: [facility]; [facility] Work Phone: 10-12-2020 09:15-0500 Pulse (Heart Rate) 82 /min Katia Desai CHILD CARE SITTER Work Phone: [facility]; [facility] Work Phone: Comment on above: Pattern: Regular 09-14-2020 08:56-0500 BMI (Body Mass Index) 21.67 kg/m2 Kiesha Martinez [facility]; [facility] Work Phone: Comment on above: patient did not report 09-14-2020 08:56-0500 Body weight 60.9 kg Kiesha Slarb CONTROL BOARD OPERATOR [facility]; [facility] Work Phone: Comment on above: patient did not report 09-14-2020 08:56-0500 BSA (Body Surface Area) 1.69 m2 Kiesha Slarb CONTROL BOARD OPERATOR [facility]; [facility] Work Phone: Comment on above: patient did not report 09-14-2020 08:56-0500 Height 167.64 cm Kiesha Larb CONTROL BOARD OPERATOR [facility]; [facility] Work Phone: Comment on above: patient did not report 01-10-2020 12:16-0400 BMI (Body Mass Index) 21.67 kg/m2 Lizbeth Rothman RN [facility] Work Phone: 01-10-2020 12:16-0400 Body weight 60.9 kg Lizbeth Rothman RN [facility] Work Phone: 01-10-2020 12:16-0400 BP Diastolic 78 mm[Hg] Lizbeth Rothman RN [facility] Work Phone: Comment on above: Patient Position: Sitting; Cuff Location : Left Arm; Cuff Size: Standard 01-10-2020 12:16-0400 BP Systolic 120 mm[Hg] Lizbeth Rothman RN [facility] Work Phone: Comment on above: Patient Position: Sitting; Cuff Location : Left Arm; Cuff Size: Standard 01-10-2020 12:16-0400 BSA (Body Surface Area) 1.69 m2 Lizbeth Rothman RN [facility] Work Phone: 01-10-2020 12:16-0400 Height 167.64 cm Lizbeth Rothman RN [facility] Work Phone: 01-10-2020 12:16-0400 Pulse (Heart Rate) 83 /min Lizbeth Rothman RN [facility] Work Phone: Comment on above: Pattern: Regular 01-10-2020 12:16-0400 Pulse Oximetry 98 % Yarelis Fitzpatrick [facility] Work Phone: Comment on above: Room air 01-10-2020 12:16-0400 Respiratory Rate 18 /min Lizbeth Rothman RN [facility] Work Phone: Comment on above: Pattern: Unlabored 01-10-2020 12:16-0400 SaO2% (BldA) [Mass fraction] 98 % Lizbeth Rothman RN [facility]; [facility] Work Phone: Comment on above: Room air 12-24-2019 08:07-0400 BMI (Body Mass Index) 20.98 kg/m2 MANUEL Voss LPN [facility] Work Phone: 12-24-2019 08:07-0400 Body Temperature 98.2 [degF] MANUEL Voss LPN [facility] Work Phone: Comment on above: Method: Temporal 12-24-2019 08:07-0400 Body weight 58.97 kg MANUEL Voss LPN [facility] Work Phone: 12-24-2019 08:07-0400 BP Diastolic 84 mm[Hg] MANUEL Voss LPN [facility] Work Phone: Comment on above: Patient Position: Sitting; Cuff Location : Left Arm; Cuff Size: Standard 12-24-2019 08:07-0400 BP Systolic 120 mm[Hg] MANUEL Voss LPN [facility] Work Phone: Comment on above: Patient Position: Sitting; Cuff Location : Left Arm; Cuff Size: Standard 12-24-2019 08:07-0400 BSA (Body Surface Area) 1.67 m2 MANUEL Voss LPN [facility] Work Phone: 12-24-2019 08:07-0400 Height 167.64 cm MANUEL Voss LPN [facility] Work Phone: 12-24-2019 08:07-0400 Pulse (Heart Rate) 94 /min MANUEL Voss LPN [facility] Work Phone: Comment on above: Pattern: Regular 12-24-2019 08:07-0400 Pulse Oximetry 98 % Yarelis Fitzpatrick [facility] Work Phone: Comment on above: Room air 12-24-2019 08:07-0400 Respiratory Rate 20 /min MANUEL Voss LPN [facility] Work Phone: Comment on above: Pattern: Unlabored 12-24-2019 08:07-0400 SaO2% (BldA) [Mass fraction] 98 % MANUEL Voss LPN [facility]; [facility] Work Phone: Comment on above: Room air 12-16-2019 11:18-0400 BMI (Body Mass Index) 20.98 kg/m2 Lissett Jackson [facility] Work Phone: Comment on above: She will check what she can and have doris dy for MEC at 230pm 12-16-2019 11:18-0400 Body weight 58.97 kg Lissett Tolbert RN [facility] Work Phone: Comment on above: She will check what she can and have doris dy for MEC at 230pm 12-16-2019 11:18-0400 BSA (Body Surface Area) 1.67 m2 Lissett Tolbert RN [facility] Work Phone: Comment on above: She will check what she can and have doris dy for MEC at 230pm 12-16-2019 11:18-0400 Height 167.64 cm Lissett Tolbert RN [facility] Work Phone: Comment on above: She will check what she can and have doris dy for [facility]EC at 230pm 12-12-2019 13:43-0400 BMI (Body Mass Index) 20.98 kg/m2 Lissett Jackson [facility] Work Phone: 12-12-2019 13:43-0400 Body weight 58.97 kg Lisestt Tolbert RN [facility] Work Phone: 12-12-2019 13:43-0400 BSA (Body Surface Area) 1.67 m2 Lissett Tolbert RN [facility] Work Phone: 12-12-2019 13:43-0400 Height 167.64 cm Lissett Tolbert RN [facility] Work Phone: 12-11-2019 13:01-0400 BMI (Body Mass Index) 20.98 kg/m2 Erasmo Mason [facility] Work Phone: 12-11-2019 13:01-0400 Body Temperature 98.4 [degF] Erasmo Huynh LAURO [facility] Work Phone: Comment on above: Method: Temporal 12-11-2019 13:040 Body weight 58.97 kg Erasmo Lino [employer] [facility] Work Phone: 12-11-2019 13:040 BSA (Body Surface Area) 1.67 m2 Erasmo Lino [employer] [facility] Work Phone: 12-11-2019 13:040 Height 167.64 cm Erasmo Lino [employer] [facility] Work Phone: 02-27-2013 16:35-0400 Body weight 58.6 kg Lizbeth Rothman RN [facility] Work Phone: 02-27-2013 16:35-0400 BP Diastolic 68 mm[Hg] Lizbeth Rothman RN [facility] Work Phone: Comment on above: Patient Position: Sitting; Cuff Location : Left Arm; Cuff Size: Large 02-27-2013 16:35-0400 BP Systolic 122 mm[Hg] Lizbeth Rothman RN [facility] Work Phone: Comment on above: Patient Position: Sitting; Cuff Location : Left Arm; Cuff Size: Large 02-27-2013 16:35-0400 Pulse (Heart Rate) 60 /min Lizbeth Rothman RN [facility] Work Phone: Comment on above: Pattern: Regular 02-27-2013 16:35-0400 Respiratory Rate 16 /min Lizbeth Rothman RN [facility] Work Phone: Comment on above: Pattern: Unlabored 02-04-2013 13:01-0400 Body Temperature 98.8 [degF] Lizbeth Rothman RN [facility] Work Phone: Comment on above: Method: Oral 02-04-2013 13:0400 Body weight 57.32 kg Lizbeth Rothman RN [facility] Work Phone: 02-04-2013 13:01-0400 BP Diastolic 70 mm[Hg] Lizbeth Rothman RN [facility] Work Phone: Comment on above: Patient Position: Sitting; Cuff Location : Left Arm; Cuff Size: Large 02-04-2013 13:01-0400 BP Systolic 118 mm[Hg] Lizbeth Rothman RN [facility] Work Phone: Comment on above: Patient Position: Sitting; Cuff Location : Left Arm; Cuff Size: Large 02-04-2013 13:01-0400 Pulse (Heart Rate) 60 /min Lizbeth Rothman RN [facility] Work Phone: Comment on above: Pattern: Regular 02-04-2013 13:01-0400 Respiratory Rate 18 /min Lizbeth Rothman RN [facility] Work Phone: Comment on above: Pattern: Unlabored 06-01-2010 08:51-0400 Body Temperature 96.9 [degF] Yarelis Fitzpatrick [facility] Work Phone: Comment on above: Method: Oral 06-01-2010 08:51-0400 Body [facility] 57.32 [facility] Work [facility]: 06-01-2010 08:51-0400 BP Diastolic 70 mm[Hg] [facility] Work Phone: Comment on above: Patient Position: Sitting; Cuff Location : Left Arm; Cuff Size: Standard 06-01-2010 08:51-0400 BP Systolic 120 mm[Hg] Yarelis Fitzpatrick [facility] Work Phone: Comment on above: Patient Position: Sitting; Cuff Location : Left Arm; Cuff Size: Standard 06-01-2010 08:51-0400 Pulse (Heart Rate) 78 /min Yarelis Fitzpatrick [facility] Work Phone: Comment on above: Pattern: Regular 06-01-2010 08:51-0400 Pulse Oximetry 98 % Yarelis Fitzpatrick [facility] Work Phone: Comment on above: Room air 06-01-2010 08:51-0400 Respiratory Rate 17 /min Yarelis Fitzpatrick [facility] Work Phone: Comment on above: Pattern: Unlabored 06-01-2010 08:51-0400 SaO2% (BldA) [Mass fraction] 98 % Yarelis Fitzpatrick DO Work Phone: [facility]; [facility] Work Phone: Comment on above: Room air 04-30-2010 09:02-0400 Body Temperature 98.4 [degF] MANUEL Voss LPN [facility] Work Phone: Comment on above: Method: Oral 04-30-2010 09:02-0400 Body weight 58.97 kg MANUEL Voss CONTROL BOARD OPERATOR [facility] Work Phone: 04-30-2010 09:02-0400 BP Diastolic 74 mm[Hg] MANUEL Voss CONTROL BOARD OPERATOR [facility] Work Phone: Comment on above: Patient Position: Sitting; Cuff Location : Left Arm; Cuff Size: Standard 04-30-2010 09:02-0400 BP Systolic 116 mm[Hg] MANUEL Voss CONTROL BOARD OPERATOR [facility] Work Phone: Comment on above: Patient Position: Sitting; Cuff Location : Left Arm; Cuff Size: Standard 04-30-2010 09:02-0400 Pulse (Heart Rate) 78 /min MANUEL Voss LPN [facility] Work Phone: Comment on above: Pattern: Regular 04-30-2010 09:02-0400 Respiratory Rate 18 /min MANUEL Voss LPN [facility] Work Phone: Comment on above: Pattern: Unlabored 12-01-2009 14:23-0400 BMI (Body Mass Index) 21.21 kg/m2 Yarelis Fitzpatrick [facility] Work Phone: 12-01-2009 14:23-0400 Body Temperature 97.3 [degF] Yarelis Fitzpatrick [facility] Work Phone: Comment on above: Method: Oral 12-01-2009 14:23-0400 Body weight 59.62 kg Yarelis Fitzpatrick [facility] Work Phone: 12-01-2009 14:23-0400 BP Diastolic 74 mm[Hg] Yarelis Fitzpatrick [facility] Work Phone: Comment on above: Patient Position: Sitting; Cuff Location : Left Arm; Cuff Size: Standard 12-01-2009 14:23-0400 BP Systolic 118 mm[Hg] Yarelis Fitzpatrick [facility] Work Phone: Comment on above: Patient Position: Sitting; Cuff Location : Left Arm; Cuff Size: Standard 12-01-2009 14:23-0400 BSA (Body Surface Area) 1.67 m2 Yarelis Fitzpatrick [facility] Work Phone: 12-01-2009 14:23-0400 Height 167.64 cm Yarelis Fitzpatrick [facility] Work Phone: 12-01-2009 14:23-0400 Pulse (Heart Rate) 78 /min Yarelis Fitzpatrick [facility] Work Phone: Comment on above: Pattern: Regular 12-01-2009 14:23-0400 Respiratory Rate 17 /min Yarelis Fitzpatrick [facility] Work Phone: Comment on above: Pattern: Unlabored 10-02-2009 14:55-0500 Pulse Oximetry 99 % Yarelis Fitzpatrick [facility] Work Phone: Comment on above: Room air 10-02-2009 14:55-0500 SaO2% (BldA) [Mass fraction] 99 % Yarelis Fitzpatrick DO Work Phone: [facility]; [facility] Work Phone: Comment on above: Room air 10-02-2009 14:24-0500 Body Temperature 97 [degF] Bonnie Patel RN [facility] Work Phone: Comment on above: Method: Oral 10-02-2009 14:24-0500 BP Diastolic 78 mm[Hg] Bonnie Patel RN [facility] Work Phone: Comment on above: Patient Position: Sitting; Cuff Location : Left Arm; Cuff Size: Standard 10-02-2009 14:24-0500 BP Systolic 112 mm[Hg] Bonnie Patel RN [facility] Work Phone: Comment on above: Patient Position: Sitting; Cuff Location : Left Arm; Cuff Size: Standard 10-02-2009 14:24-0500 Pulse (Heart Rate) 80 /min Bonnie Patel RN [facility] Work Phone: Comment on above: Pattern: Regular 10-02-2009 14:24-0500 Pulse Oximetry 97 % Yarelis Fitzpatrick [facility] Work Phone: Comment on above: Room air 10-02-2009 14:24-0500 Respiratory Rate 16 /min Bonnie Patel RN [facility] Work Phone: Comment on above: Pattern: Unlabored 10-02-2009 14:24-0500 SaO2% (BldA) [Mass fraction] 97 % Bonnie Patel RN [facility]; [facility] Work Phone: Comment on above: Room air 01-27-2009 10:51-0400 BMI (Body Mass Index) 21.21 kg/m2 Lizbeth Rothman RN [facility] Work Phone: 01-27-2009 10:51-0400 Body Temperature 98 [degF] Lizbeth Rothman RN [facility] Work Phone: Comment on above: Method: Oral 01-27-2009 10:51-0400 Body weight 59.62 kg Lizbeth Rothman RN [facility] Work Phone: 01-27-2009 10:51-0400 BP Diastolic 68 mm[Hg] Lizbeth Rothman RN [facility] Work Phone: Comment on above: Patient Position: Sitting; Cuff Location : Right Arm; Cuff Size: Large 01-27-2009 10:51-0400 BP Systolic 110 mm[Hg] Lizbeth Rothman RN [facility] Work Phone: Comment on above: Patient Position: Sitting; Cuff Location : Right Arm; Cuff Size: Large 01-27-2009 10:51-0400 BSA (Body Surface Area) 1.67 m2 Lizbeth Rothman RN [facility] Work Phone: 01-27-2009 10:51-0400 Head Circumference 0 cm Yarelis Fitzpatrick [facility] Work Phone: 01-27-2009 10:51-0400 Head Occipital-frontal circumference 0 cm Lizbeth Rothman RN [facility]; [facility] Work Phone: 01-27-2009 10:51-0400 Height 167.64 cm Lizbeth Rothman RN [facility] Work Phone: 01-27-2009 10:51-0400 Pulse (Heart Rate) 80 /min Lizbeth Rothman RN [facility] Work Phone: Comment on above: Pattern: Regular 01-27-2009 10:51-0400 Respiratory Rate 20 /min Lizbeth Rothman RN [facility] Work Phone: Comment on above: Pattern: Unlabored 12-31-2008 14:31-0400 BMI (Body Mass Index) 21.21 kg/m2 Bethany Desai [facility] Work Phone: 12-31-2008 14:31-0400 Body Temperature 98.3 [degF] Bethany [facility] Work Phone: Comment on above: Method: Oral 12-31-2008 14:31-0400 Body weight 59.62 kg Bethany [facility] Work Phone: 12-31-2008 14:31-0400 BP Diastolic 66 mm[Hg] [facility] Work Phone: Comment on above: Patient Position: Sitting; Cuff Location : Left Arm; Cuff Size: Standard 12-31-2008 14:31-0400 BP Systolic 108 mm[Hg] Bethany [facility] Work Phone: Comment on above: Patient Position: Sitting; Cuff Location : Left Arm; Cuff Size: Standard 12-31-2008 14:31-0400 BSA (Body Surface Area) 1.67 m2 Bethany [facility] Work Phone: 12-31-2008 14:31-0400 Head Circumference 0 cm Yarelis Fitzpatrick [facility] Work Phone: 12-31-2008 14:31-0400 Head Occipital-frontal circumference 0 cm Bethany [facility]; [facility] Work Phone: 12-31-2008 14:31-0400 Height 167.64 cm [facility] Work Phone: 12-31-2008 14:31-0400 Pulse (Heart Rate) 68 /min [facility] Work Phone: Comment on above: Pattern: Regular 12-31-2008 14:31-0400 Respiratory Rate 18 /min [facility] Work Phone: Comment on above: Pattern: Unlabored 08-27-2008 15:28-0500 BMI (Body Mass Index) 19.85 kg/m2 Bonnie Patel RN [facility] Work Phone: 08-27-2008 15:28-0500 Body Temperature 97.2 [degF] Bonnie Patel RN [facility] Work Phone: Comment on above: Method: Oral 08-27-2008 15:28-0500 Body weight 55.79 kg Bonnie Patel RN [facility] Work Phone: 08-27-2008 15:28-0500 BP Diastolic 62 mm[Hg] Bonnie Patel RN [facility] Work Phone: Comment on above: Patient Position: Sitting; Cuff Location : Left Arm; Cuff Size: Standard 08-27-2008 15:28-0500 BP Systolic 118 mm[Hg] Bonnie Patel RN [facility] Work Phone: Comment on above: Patient Position: Sitting; Cuff Location : Left Arm; Cuff Size: Standard 08-27-2008 15:28-0500 BSA (Body Surface Area) 1.63 m2 Bonnie Patel RN [facility] Work Phone: 08-27-2008 15:28-0500 Head Circumference 0 cm Yarelis Fitzpatrick [facility] Work Phone: 08-27-2008 15:28-0500 Head Occipital-frontal circumference 0 cm Bonnie Patel RN [facility]; [facility] Work Phone: 08-27-2008 15:28-0500 Height 167.64 cm Bonnie Patel RN [facility] Work Phone: 08-27-2008 15:28-0500 Pulse (Heart Rate) 64 /min Bonnie Patel RN [facility] Work Phone: Comment on above: Pattern: Regular 08-27-2008 15:28-0500 Pulse Oximetry 99 % Yarelis Fitzpatrick [facility] Work Phone: Comment on above: Room air 08-27-2008 15:28-0500 Respiratory Rate 18 /min Bonnie Patel RN [facility] Work Phone: Comment on above: Pattern: Unlabored 08-27-2008 15:28-0500 SaO2% (BldA) [Mass fraction] 99 % Bonnie Patel RN [facility]; [facility] Work Phone: Comment on above: Room air 11-30-2007 13:00-0400 BMI (Body Mass Index) 19.92 kg/m2 Lizbeth Rothman RN [facility] Work Phone: 11-30-2007 13:00-0400 Body weight 55.99 kg Lizbeth Rothman RN [facility] Work Phone: 11-30-2007 13:00-0400 BP Diastolic 76 mm[Hg] Lizbeth Rothman RN [facility] Work Phone: Comment on above: Patient Position: Sitting; Cuff Location : Left Arm; Cuff Size: Standard 11-30-2007 13:00-0400 BP Systolic 118 mm[Hg] Lizbeth Rothman RN [facility] Work Phone: Comment on above: Patient Position: Sitting; Cuff Location : Left Arm; Cuff Size: Standard 11-30-2007 13:00-0400 BSA (Body Surface Area) 1.63 m2 Lizbeth Rothman RN [facility] Work Phone: 11-30-2007 13:00-0400 Head Circumference 0 cm Yarelissoo Fitzpatrick [facility] Work Phone: 11-30-2007 13:00-0400 Head Occipital-frontal circumference 0 cm Lizbeth Rothman RN [facility]; [facility] Work Phone: 11-30-2007 13:00-0400 Height 167.64 cm Lizbeth Rothman RN [facility] Work Phone: 11-30-2007 13:00-0400 Pulse (Heart Rate) 80 /min Lizbeth Rothman RN [facility] Work Phone: Comment on above: Pattern: Regular 11-30-2007 13:00-0400 Respiratory Rate 16 /min Lizbeth Rothman RN [facility] Work Phone: Comment on above: Pattern: Unlabored 11-19-2007 14:15-0400 BMI (Body Mass Index) 20.4 kg/m2 Lizbeth Rothman RN [facility] Work Phone: 11-19-2007 14:15-0400 Body Temperature 98.7 [degF] Lizbeth Rothman RN [facility] Work Phone: Comment on above: Method: Oral 11-19-2007 14:15-0400 Body weight 57.32 kg Lizbeth Rothman RN [facility] Work Phone: 11-19-2007 14:15-0400 BP Diastolic 64 mm[Hg] Lizbeth Rothman RN [facility] Work Phone: Comment on above: Patient Position: Sitting; Cuff Location : Right Arm; Cuff Size: Standard 11-19-2007 14:15-0400 BP Systolic 122 mm[Hg] Lizbeth Rothman RN [facility] Work Phone: Comment on above: Patient Position: Sitting; Cuff Location : Right Arm; Cuff Size: Standard 11-19-2007 14:15-0400 BSA (Body Surface Area) 1.65 m2 Lizbeth Rothman RN [facility] Work Phone: 11-19-2007 14:15-0400 Head Circumference 0 cm Yarelis Amari [facility] Work Phone: 11-19-2007 14:15-0400 Head Occipital-frontal circumference 0 cm Lizbeth Rothman RN [facility]; [facility] Work Phone: 11-19-2007 14:15-0400 Height 167.64 cm Lizbeth Rothman RN [facility] Work Phone: 11-19-2007 14:15-0400 Pulse (Heart Rate) 80 /min Lizbeth Rothman RN [facility] Work Phone: Comment on above: Pattern: Regular 11-19-2007 14:15-0400 Respiratory Rate 16 /min Lizbeht Rothman RN [facility] Work Phone: Comment on above: Pattern: Unlabored Encounters Encounter Date Encounter Type Care Provider Facility Start: 01-11-2025 End: 01-11-[address] Yarelis Fitzpatrick DO Work Phone: [facility] Work Phone: Start: 01-11-2025 End: 01-11-2025 Patient encounter procedure POLICY SERVICES REPRESENTATIVE Patience Del [facility] -Laboratory Work Phone: Start: 01-11-2025 End: 01-11-2025 ambulatory Patience Del Real Facility:[facility] Start: 12-21-2024 End: 12-21-[address] Yarelis Fitzpatirck DO Work Phone: [facility] Work Phone: Start: 12-21-2024 End: 12-21-[address] Yarelis Fitzpatrick DO Work Phone: -Laboratory Work Phone: Start: 12-21-2024 End: 12-21-2024 ambulatory CELINA GUTIERREZ Facility:[facility] Start: 12-09-2024 End: 12-09-2024 ambulatory [facility] Start: 12-08-2024 End: 12-08-2024 Emergency department patient visit Dr. Yarelis Fitzpatrick DO Work Phone: -Emergency Department Work Phone: Start: 11-25-2024 End: 11-25-[address] Yarelis Fitzpatrick DO Work Phone: [facility] Work Phone: Start: 11-25-2024 End: 11-25-[address] Yordan Vanegas DO -Laboratory, Specimen Work Phone: Start: 11-25-2024 End: 11-25-2024 ambulatory Yordan Vanegas Facility:[facility] Start: 11-06-2024 End: 11-06-2024 Emergency department patient visit Dr. Yarelis Fitzpatrick DO Work Phone: -Emergency Department Work Phone: Start: 11-01-2024 End: 11-01-2024 Patient encounter procedure NAREN Del Real -[facility] Work Phone: Start: 11-01-2024 End: 11-01-2024 ambulatory Yarelis Fitzpatrick [place] Start: 10-15-2024 End: 10-15-[address] Yarelis Fitzpatrick DO Work Phone: [facility] Work Phone: Start: 10-15-2024 End: 10-15-2024 Patient encounter procedure NAREN Del Real -Cat Che, [facility] Work Phone: Start: 10-15-2024 End: 10-15-2024 ambulatory Patience Del Real Facility:[facility] Start: 09-27-2024 End: 09-27-2024 Patient encounter procedure NAREN Del Real -Laboratory Work Phone: Start: 09-27-2024 End: 09-27-2024 ambulatory Patience Del Real Facility:[facility] Start: 09-04-2024 End: 09-04-[address] Yarelis Fitzpatrick DO -Laboratory, [facility] Start: 09-04-2024 End: 09-04-2024 ambulatory Yarelis Fitzpatrick Facility:[facility] Start: 09-03-2024 End: 09-03-2024 Patient encounter procedure NAREN Del Real -[facility] Start: 09-03-2024 End: 09-03-2024 ambulatory Patience Del Real Facility:[facility] Start: 08-30-2024 End: 08-30-2024 Patient encounter procedure NAREN Del Real -[facility] Work Phone: Start: 08-30-2024 End: 08-30-2024 ambulatory Alis Mcclain RN NURSE JEWELSMITH Comment on above: Information Start: 08-28-2024 End: 08-28-2024 Patient encounter procedure Kimberly Jacobson POLICY SERVICES REPRESENTATIVE-C -Cat Scan, [facility] Work Phone: Start: 08-27-2024 End: 08-27-[address] Balta Whipple MD -[facility] Start: 08-27-2024 End: 08-28-2024 ambulatory Yarelis Fitzpatrick Facility:[facility] Start: 08-27-2024 End: 08-27-2024 ambulatory Yarelis Fitzpatrick Facility:[facility] Start: 2024 End: 2024 Subsequent hospital visit by physician Dylon Vazquez MD Work Phone: [facility] Comment on above: Common variable immu nodeficiency; Low serum IgG for age; Recurrent infections Start: 2024 End: 2024 ambulatory DYLONMIRNA VAZQUEZ [facility] Start: 12-18-2023 End: 12-18-2023 ambulatory DYLONMIRNA VAZQUEZ [facility] Start: 08-17-2023 End: 08-17-[address] Yarelis Fitzpatrick Work Phone: [facility] Work Phone: Start: 08-17-2023 End: 08-17-[address] Yarelis Fitzpatrick Work Phone: [facility]-Pulmonary Services/Neurology Work Phone: Start: 08-15-2023 End: 08-15-[address] Yarelis Fitzpatrick Work Phone: [facility]-Pulmonary Medicine [facility] Work Phone: Start: 07-17-2023 Non-patient / Non-visit Dr. Shannon Fitzpatrick Work Phone: [facility] Start: 07-14-2023 End: 07-14-[address] Yarelis Fitzpatrick Work Phone: [facility] Work Phone: Start: 07-14-2023 End: 07-14-[address] Yarelis Fitzpatrick Work Phone: [facility]-Pulmonary Services/Neurology Work Phone: Start: 02-13-2023 End: 02-13-2023 Subsequent hospital visit by physician Dylon Vazquez MD Work Phone: [facility] [place] Comment on above: Recurrent infections ; Low serum IgG for age Start: 01-24-2023 End: 01-24-[address] Yarelis Fitzpatrick Work Phone: [facility] Work Phone: Start: 01-24-2023 End: 01-24-[address] Yarelis Fitzpatrick Work Phone: [facility]-Laboratory, Specimen Start: 01-24-2023 End: 01-24-[address] [facility] Start: 01-05-2023 End: 01-11-2023 Office outpatient visit 15 minutes Yarelismichela Fitzpatrick DO Work Phone: [facility] Start: 01-04-2023 End: 01-04-2023 Phone Encounter Yarelis Fitzpatrick DO Work Phone: [facility] Start: 01-02-2023 End: 01-02-[address] Yarelis Fitzpatrick Work Phone: [facility] Start: 12-30-2022 ambulatory Yarelis Fitzpatrick DO [facility] Start: 12-30-2022 End: 12-30-2022 Office outpatient visit 15 minutes Yarelismichela Fitzpatrick DO Work Phone: [facility] Start: 12-21-2022 End: 12-21-2022 Phone Encounter Yarelis Fitzpatrick DO Work Phone: [facility] Start: 12-16-2022 End: 12-16-[address] Yarelis Fitzpatrick Work Phone: [facility] Start: 12-16-2022 End: 12-18-2022 Office outpatient visit 25 minutes Yarelis Amari DO Work Phone: [facility] Start: 12-05-2022 End: 12-05-2022 Office outpatient visit 10 minutes Yarelis Amari DO Work Phone: [facility] Start: 11-08-2022 End: 11-08-2022 Phone Encounter Yarelis Amari DO Work Phone: [facility] Start: 11-06-2022 End: 11-07-2022 Emergency department patient visit [facility]-Emergency Department Start: 11-06-2022 End: 11-06-2022 Patient encounter procedure Abrahan Peterson APRN.CHILD CARE SITTER Work Phone: [facility] Comment on above: Sinobronchitis (Prim juliana Dx); Bacterial conjunctivitis; History of asthma Start: 10-14-2022 End: 10-14-2022 Office outpatient visit 10 minutes Yarelis Amari DO Work Phone: [facility] Start: 10-07-2022 Review Yarelis Fearo n DO Work Phone: [facility] Start: 10-07-2022 End: 10-07-2022 Office outpatient visit 15 minutes Yarelis Amari DO Work Phone: [facility] Start: 09-12-2022 End: 09-12-2022 Office outpatient visit 15 minutes Yarelis Amari DO Work Phone: [facility] Start: 2022 End: 2022 Office outpatient visit 15 minutes Yarelis Amari DO Work Phone: [facility] Start: 04-28-2022 End: 04-28-2022 Annotation/Addendum Yarelis Amari DO Work Phone: [facility] Start: 04-26-2022 End: 04-26-2022 ambulatory [facility] Work Phone: Start: 04-26-2022 End: 04-26-2022 [facility] Start: 04-26-2022 End: 05-03-2022 Office outpatient visit 15 minutes Yarelis Amari DO Work Phone: [facility] Start: 04-08-2022 End: 04-08-2022 ambulatory [facility] Work Phone: Start: 04-08-2022 End: 04-08-2022 Patient encounter procedure [facility]-Outpatient Breast Imaging Start: 02-22-2022 End: 02-22-2022 Office outpatient visit 10 minutes Yarelis Amari DO Work Phone: [facility] Start: 01-23-2022 End: 01-23-2022 Patient encounter procedure Abrahan Peterson APRN.CHILD CARE SITTER Work Phone: [facility] Comment on above: Lower resp. tract in fection (Primary Dx); Conjunctivitis of both eyes, unspecified conjunctivitis type Start: 10-15-2021 End: 10-15-2021 Office outpatient visit 15 minutes Yarelis Amari DO Work Phone: [facility] Start: 08-11-2021 End: 08-11-2021 Subsequent hospital visit by physician [facility] Work Phone: Radiology Comment on above: Cough [R05.9] Start: 07-05-2021 End: 07-05-2021 Office outpatient visit 15 minutes Yarelis Amair DO Work Phone: [facility] Start: 07-02-2021 End: 07-02-2021 Office outpatient visit 10 minutes Yarelis Amari DO Work Phone: [facility] Start: 02-09-2021 End: 02-09-2021 Office outpatient visit 15 minutes Yarelis Amari DO Work Phone: [facility] Start: 01-22-2021 End: 01-22-2021 Office outpatient visit 10 minutes Yarelis Amari DO Work Phone: [facility] Start: 01-22-2021 Review Yarelis Fearo n DO Work Phone: [facility] Start: 11-25-2020 End: 11-25-2020 Office outpatient visit 10 minutes Yarelis Fitzpatrick [facility] Start: 10-12-2020 End: 10-12-2020 Office outpatient visit 10 minutes Yarelis Fitzpatrick [facility] Start: 09-14-2020 End: 09-14-2020 Office outpatient visit 15 minutes Yarelis Fitzpatrick [facility] Start: 03-04-2020 End: 03-04-2020 Annotation/Addendum Yarelis Fitzpatrick [facility] Start: 02-28-2020 End: 02-28-2020 Annotation/Addendum Yarelis Fitzpatrick [facility] Start: 01-10-2020 End: 01-10-2020 Office outpatient visit 15 minutes Yarelis Fitzpatrick [facility] Start: 01-07-2020 End: 01-07-2020 Annotation/Addendum Yarelis Fitzpatrick [facility] Start: 12-30-2019 End: 12-30-2019 Office outpatient visit 15 minutes Yarelis Fitzpatrick [facility] Start: 12-24-2019 End: 12-24-2019 Office outpatient visit 15 minutes Yarelis Fitzpatrick [facility] Start: 12-23-2019 End: 12-23-2019 Annotation/Addendum Yarelis Fitzpatrick [facility] Start: 12-18-2019 End: 12-24-2019 Office outpatient visit 40 minutes Yarelis Fitzpatrick [facility] Start: 12-16-2019 End: 12-16-2019 Annotation/Addendum Yarelis Fitzpatrick [facility] Start: 12-16-2019 End: 12-16-2019 Office outpatient visit 15 minutes Yarelis Fitzpatrick [facility] Start: 12-12-2019 End: 12-12-2019 Office outpatient visit 5 minutes Yarelis Fitzpatrick [facility] Start: 12-11-2019 End: 12-11-2019 Office outpatient visit 25 minutes Yarelis Fitzpatrick [facility] Start: 02-27-2013 End: 02-27-2013 Patient encounter procedure Yarelis Fitzpatrick [facility] Start: 02-04-2013 End: 02-04-2013 Patient encounter procedure Yarelis Fitzpatrick [facility] Start: 06-01-2010 End: 06-01-2010 Office outpatient visit 25 minutes Yarelis Fitzpatrick [facility] Start: 04-30-2010 End: 04-30-2010 Office outpatient visit 25 minutes Yarelismichela Saezon [facility] Start: 12-01-2009 End: 12-01-2009 Office outpatient visit 25 minutes Yarelismichela Saezon [facility] Start: 10-02-2009 End: 10-02-2009 Patient encounter procedure Yarelismichela Saezon [facility] Start: 10-02-2009 End: 10-02-2009 Office outpatient visit 15 minutes Yarelis Fitzpatrick [facility] Start: 01-27-2009 End: 01-27-2009 Patient encounter procedure Yarelismichela Saezon [facility] Start: 12-31-2008 End: 12-31-2008 Office outpatient visit 15 minutes Yarelis Amari [facility] Start: 08-27-2008 End: 08-27-2008 Patient encounter procedure Yarelismichela Saezon [facility] Start: 11-30-2007 End: 11-30-2007 Patient encounter procedure Yarelismichela Saezon [facility] Start: 11-20-2007 End: 11-20-2007 Historical Summary Yarelismichela Saezon [facility] al Medicine Start: 11-19-2007 End: 11-19-2007 Patient encounter procedure Yarelismichela Saezon [facility] Procedures Date Procedure Procedure Detail Performing Clinician Start: 01-11-[address] Yarelis Fitzpatrick DO Work Phone: Start: 12-08-2024 SARS-CoV-2, Influenza & RSV (PCR) Dr. Yarelis Fitzpatrick DO Work Phone: Start: 12-08-2024 X-ray of chest, PA and lateral views Dr. Yarelis Fitzpatrick DO Work Phone: Start: 12-08-[address] Bubba Fitzpatrick DO Work Phone: Start: 11-25-[address] Yarelis Fitzpatrick DO Work Phone: Start: 11-25-[address] Dajuan Fitzpatrick DO Work Phone: Start: 11-06-2024 Urnls dip stick/tablet reagent auto microscopy Dr. Yarelis Fitzpatrick DO Work Phone: Start: 11-06-2024 CT angiography of chest with contrast Dr. Yarelis Fitzpatrick DO Work Phone: Start: 11-06-[address] Bubba Fitzpatrick DO Work Phone: Start: 11-06-[address] Yarelis Fitzpatrick DO Work Phone: Start: 11-06-[address] Yarelis Fitzpatrick DO Work Phone: Start: 11-06-2024 Legionella pneumophila antigen assay Dr. Yarelis Fitzpatrick DO Work Phone: Start: 11-06-[address] Dajuan Fitzpatrick DO Work Phone: Start: 11-06-2024 SARS-CoV-2, Influenza & RSV (PCR) Dr. Yarelis Fitzpatrick DO Work Phone: Start: 11-06-2024 End: 11-06-2024 Streptococcus pneumoniae antigen assay Dr. Yarelis Fitzpatrick DO Work Phone: Start: 10-15-2024 CT of thorax with contrast Dr. Yarelis Fitzpatrick DO Work Phone: Start: 09-27-[address] Yarelis Fitzpatrick DO Work Phone: Start: 09-27-[address] Dajuan Fitzpatrick DO Work Phone: Start: 09-04-2024 Jeoat-6-Eyymmsrornn measurement Dr. Briseida Fitzpatrick DO Work Phone: Comment on above: [facility] Electrochemiluminescen ce Immunoassay(ECLIA)Values obtained with different assay methods or kits cannotbe used interchangeably. Results cannot be interpreted asabsolute evidence of the presence or absence of malignantdisease.This test is not interpretable in females.Performed at: [address] [id number] Director: Ramsey Oleary PhD, Phone: [phone] Start: 09-04-[address] Bubba Fitzpatrick DO Work Phone: Start: 09-04-2024 In-vitro immunologic test Dr. Yarelis Fitzpatrick DO Work Phone: Comment on above: QuantiFERON-TB Gold Plus is a qualitativ e indirect test forM tuberculosis infection (including disease) and isintended for use in conjunction with risk assessment,radiography, and other medical and diagnostic evaluations.The QuantiFERON-TB Gold Plus result is determined bysubtracting the Nil value from either TB antigen (Ag)value. The Mitogen tube serves as a control for the test. No response to M tub erculosis antigens detected.Infection with M tuberculosis is unlikely, but high riskindividuals should be considered for additional testing(ATS/IDSA/CDC Clinical Practice Guidelines, 2017). Thereference range is an Antigen minus Nil result of <0.35IU/mL.The specimen received for QuantiFERON testing was incubatedby the ordering institution. Specific procedures outlinedin our Directory of Services and in the package insert forthe QuantiFERON Gold (In Tube) test must be followed toenable for proper stimulation of cells for the productionof interferon gamma. Chemiluminescence immunoassaymethodology Start: 09-04-2024 Measurement of renal function Dr. Dajuan Fitzpatrick DO Work Phone: Comment on above: GFR Calc Start: 09-03-2024 Positron emission tomography with computed tomography Dr. Yarelis Fitzpatrick DO Work Phone: Start: 08-28-2024 CT of thorax with contrast Dr. Yarelis Fitzpatrcik DO Work Phone: Start: 08-27-2024 X-ray of chest, PA and lateral views Dr. Yarelis Fitzpatrick DO Work Phone: Start: 08-27-2024 Flow cytometry cell surf marker techl only 1st Dr. Yarelis Fitzpatrick DO Work Phone: Start: 08-27-2024 Measurement of renal function Dr. Dajuan Fitzpatrick DO Work Phone: Comment on above: GFR Calc Start: 08-27-[address] Yarelis Fitzpatrick DO Work Phone: Start: 2024 Assay of gammaglobulin iga igd igg igm each Dylon Vazquez MD Work Phone: Start: 02-13-2023 HIV 1&2 AG AND AB SCREEN Dylon Mclain Work Phone: Start: 02-13-2023 IMMUNOGLOBULIN A,G,M,E Dylon Vazquez MD Work Phone: Start: 01-24-2023 End: 01-24-2023 Pulmonary Visit Report Procedure Note: See Note; NOTES: [facility] [place] [address] [place] [address] OFFICE VISIT Date of Service: 01/24/23 MR#: [id number] Acct: [id number] Name: OFE GIMENEZ Rep #: [id number] : 1975 Provider: Dr. Rakesh Meeks DO Age/Sex: 47/F [place] [facility] Status: Signed Assessment and Plan Assessment and Plan (1) Bronchiectasis: Status: Acute Plan: The patient presented today for the evaluation of a CT chest which demonstrated bilateral bronchiectasis and apical scarring. The patient has a history of frequent hospitalizations for pneumonia. Her PCP recently referred her to a local tow boat captain as she was noted to have an [...] after she has been evaluated by the process control manager. The patient may require a prolonged antibiotic [...] referred to Dr. Vazquez of immunology in [place]. 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 Yarelis Fitzpatrick, Status: REG CLI Study: Chest WITH Contrast Date of Exam: 01/02/23 Exam# [id number] Ordering Dr: Heydi Meier DO INDICATION: Cough. [...] THYROID: No thyroid lesions within the study [id number]. HEART AND PERICARDIUM: Heart size is normal. [...] with new peribronchial thickening compatible with acute bronchitis/bronchioliti s. Mild associated endobronchial mucus or debris in the lateral left lower lung. No evidence of consolidative pneumonia. Small reactive inferior mediastinal and bilateral hilar lymph nodes. Small hiatal hernia. Electronically Signed: Ugo Oakes MD at 4:28 EDT , CC: Dr. Heydi Meier DO; Dr. Yarelis Fitzpatrick DO Doubler Helper: Signed Heydi Meier DO Work Phone: Start: 01-02-2023 CT of thorax with contrast Dr. Yarelis Fitzpatrick Work Phone: Start: 12-16-2022 End: 12-17-2022 Chest PA and Lateral Procedure Note: See Note; NOTES: [facility] Radiology [address] [place] [address] Chest PA and Lateral MR#: [id number] Acct: [id number] Name: OFE GIMENEZ Rep #: [id number] : 1975 F 47 From: Yissel Caldwell MD PCP: Dr. Yarelis Fitzpatrick DO Status: DEP AMB Study: Chest PA and Lateral Date of Exam: 12/16/22 Exam# [id number] Ordering Dr: Heydi Meier DO We are [...] Signed: Yissel Caldwell MD at 12:36 EDT Reading Location ID and State: [facility] / [place] Tel , Service support , CC: Dr. Heydi Meier DO; Dr. Yarelis Fitzpatrick DO Doubler Helper: Signed Heydi Meier DO Work Phone: Start: 12-16-2022 Plain chest X-ray Dr. Yarelis Fitzpatrick Work Phone: Start: 11-06-2022 End: 11-07-2022 Abdomen/Pelvis without Cont Procedure Note: See Note; NOTES: [facility] Imaging Services [address] [place] [address] Abdomen/Pelvis without Cont MR#: [id number] Acct: [id number] Name: OFE GIMENEZ Rep #: [id number] : 1975 F 47 From: Rao pinedo MD PCP: Dr. Yarelis Fitzpatrick DO Status: REG ER Study: Abdomen/Pelvis without Cont Date of Exam: 10/19 05/13 Exam# [id number] Ordering Dr: Adelfo Solis DO EXAM: CT [...] reconstruction technique. This report was created using GOOD report generation technology. RADIATION DOSE: Total DLP: [...] CC: Dr. Adelfo Solis DO; Dr. Yarelis Fitzpatrick DO Doubler Helper: Signed Yarelis Fitzpatrick DO Work Phone: Start: 11-06-2022 CT of abdomen and pelvis without contrast Start: 11-06-2022 End: 11-07-2022 Emergency Department Summary Procedure Note: See Note; NOTES: [facility] Medical Records Department [address] [place] [address] Emergency Department Summary 11/06/22 MR#: [id number] Acct: [id number] Name: OFE GIMENEZ Rep #: [id number] : 1975 47 From: Adelfo Solis DO PCP: Dr. Yarelis Fitzpatrick DO Status:REG ER Location: ED HPI HPI - [...] % (Auto) 66.8 Lymph % (Auto) 25.4 Cooke % (Auto) 6.8 Eos % (Auto) 0.0 [...] Color Urine Clarity Urine pH Ur Specific Bella[place] Urine Protein Urine Glucose (UA) Urine Ketones Urine Occult Blood Urine Nitrite Urine Bilirubin Urine Urobilinogen Ur Leukocyte Esterase Urine RBC Urine WBC Ur Squamous Epith Cells Amorphous Sediment Urine Bacteria Urine Mucus 11/06/22 22:27 WBC RBC Hgb Hct MCV MCH MCHC RDW Std Deviation RDW Coeff of Mendy Plt Count MPV Immature Gran % (Auto) Neut % (Auto) Lymph % (Auto) Cooke % (Auto) Eos % (Auto) Baso % (Auto) Absolute Neuts (auto) Absolute Lymphs (auto) Nucleated RBC % Sodium Potassium Chloride Carbon Dioxide Anion Gap BUN Creatinine Estim Creat Clear Calc Est GFR (MDRD) Af Amer Est GFR (MDRD) Non-Af BUN/Creatinine Ratio Glucose Calcium Serum , Qual Urine Color Yellow Urine Clarity Sl. Cloudy Urine pH 6.5 Ur Specific Bella[place] 1.020 Urine Protein 30 H Urine Glucose [...] mg PO DAILY Primary Care Provider: Yarelis Fitzpatrick Referrals: Elisabeth Patricia MD [Med Staff - Active Staff] - As soon as possible Yarelis Fitzpatrick DO [Primary Care Provider] - Disposition Disposition: Home, Self Care What to do if you have Problems For any increased pain, shortness of breath, bleeding, nausea or vomiting, chest pain, or any unexpected problems, contact your Primary Care Provider. Call [facility] ([phone]) or report to the closest Emergency Room. Call 911 if necessary. 11/07/22 0041 <Electronically signed by Adelfo Solis DO> Cosigner Signature (if applicable): CC: Dr. Yarelis Fitzpatrick DO Signed Yarelis Fitzpatrick DO Work Phone: Start: 04-26-2022 End: 04-28-2022 Chest PA and Lateral Procedure Note: See Note; NOTES: [facility] Imaging Services [address] [place] [address] Chest PA and Lateral MR#: [id number] Acct: [id number] Name: OFE GIMENEZ Rep #: [id number] : 1975 F 46 From: Mónica Werner MD PCP: Dr. Yarelis Fitzpatrick DO Status: REG CLI Study: Chest PA and Lateral Date of Exam: 04/26/22 Exam# [id number] Ordering Dr: Kimberly Jacobson POLICY SERVICES REPRESENTATIVE-C STUDY: X-RAY CHEST REASON FOR EXAM: Female, [...] 4:43 EDT Reading Location ID and State: [facility] / [place] , Service support , CC: POLICY SERVICES REPRESENTATIVEDianna Jacobson; Dr. Yarelis Fitzpatrick DO Doubler Helper: Signed Yarelis Fitzpatrick DO Work Phone: Start: 04-26-2022 Plain chest X-ray Start: 04-08-2022 Screening mammography Start: 04-08-2022 End: 04-08-2022 SCRN MAMM (CAD)W/PIERCE BILAT Procedure Note: See Note; NOTES: [facility] Imaging Services [address] [place] [address] SCRN MAMM (CAD)W/PIERCE BILAT MR#: [id number] Acct: [id number] Name: OFE GIMENEZ Rep #: [id number] : 1975 F 46 From: Luis doherty MD PCP: Dr. Yarelis Fitzpatrick, Status: REG CLI Study: SCRN MAMM (CAD)W/PIERCE BILAT Date of Exam: 03/21 05/12 Exam# [id number] Ordering Dr: Redd Boss MD MAMMOGRAPHY - [...] delay biopsy of a clinically suspicious abnormality. [id number] Electronically Signed: Luis Rossi MD at 9:29 EDT , CC: Dr. Redd Boss MD; Dr. Yarelis Fitzpatrick DO Doubler Helper: Signed Yarelis Fitzpatrick DO Work Phone: Start: 08-11-2021 Radiologic exam chest 2 views Len Marinelli APRN.CHILD CARE SITTER Work Phone: Start: 04-01-2021 End: 04-01-2021 Breast Limited Unilateral Comments: See Note; NOTES: [facility] Imaging Services [address] [place] [address] Breast Limited Unilateral MR#: [id number] Acct: [id number] Name: OFE GIMENEZ Rep #: [id number] : 1975 F 45 From: Luis doherty MD PCP: Dr. Yarelis Fitzpatrick DO Status: REG CLI Study: Breast Limited Unilateral Date of Exam: Exam# [id number] Ordering Dr: Redd Boss MD STUDY: ULTRASOUND [...] CC: Dr. Redd Boss MD; Dr. Yarelis Fitzpatrick DO Doubler Helper: Signed Yarelis Fitzpatrick DO Work Phone: Start: 03-30-2021 End: 03-31-2021 SCRN MAMM (CAD)W/PIERCE BILAT Comments: See Note; NOTES: [facility] Imaging Services [address] [place] [address] SCRN MAMM (CAD)W/PIERCE BILAT MR#: [id number] Acct: [id number] Name: OFE GIMENEZN Rep #: [id number] : 1975 F 45 From: Luis doherty MD PCP: Dr. Yarelis Fitzpatrick, DO Status: PRE CLI Study: SCRN MAMM (CAD)W/PIERCE BILAT Date of Exam: 03/21 Exam# [id number] Ordering Dr: Redd Boss MD MAMMOGRAPHY - [...] delay biopsy of a clinically suspicious abnormality. [id number] Electronically Signed: Luis Rossi MD at 8:20 EDT , Service support , CC: Dr. Redd Boss MD; Dr. Yarelis Fitzpatrick DO Doubler Helper: Signed Yarelis Fitzpatrick DO Work Phone: Start: 09-12-2020 End: 09-12-2020 Discharge Instruction Comments: See Note; NOTES: [facility] Medical Records Department [address] [place] [address] Discharge Instruction 09/12/20 MR#: [id number] Acct: [id number] Name: OFE GIMENEZ Rep #: [id number] : 1975 45 From: Isac Middleton MD PCP: Dr. Yarelis Fitzpatrick DO Status:DEP ER ED Disposition - Plan for ED Patient: Disposition: Home or Assisted Living Instructions: ED Pneumonia (Adult) Prescriptions: Levofloxacin [Levaquin] 750 mg PO DAILY #6 tab Prescription Printed Referrals: Yarelis Fitzpatrick DO [Primary Care Provider] - 3-5 Days [...] your Primary Care Provider. Call [facility] ([phone]) or report to the closest Emergency Room. Call 911 if necessary. 09/12/20 1704 <Electronically signed by Isac Middleton MD> Date Isac Middleton MD Cosigner Signature (If Indicated): Date CC: Dr. Yarelis Fitzpatrick, DO Yarelis Fitzpatrick Start: 09-12-2020 End: 09-12-2020 Emergency Department Summary Comments: See Note; NOTES: [facility] Medical Records Department [address] [place] [address] Emergency Department Summary 09/12/20 MR#: [id number] Acct: [id number] Name: OFE GIMENEZ Rep #: [id number] : 1975 45 From: Isac Middleton MD PCP: Dr. Yarelis Fitzpatrick, DO Status:DEP ER - ER Visit Summary [...] pneumonia Leukocytosis This note was generated with [employer] dictation software. It may contain incorrect words, spelling, and punctuation that were not noted in review of the chart prior to signing ED Disposition - Plan for ED Patient: Referrals: Yarelis Fitzpatrick, DO [Primary Care Provider] - What to do if you have Problems For any increased pain, shortness of breath, bleeding, nausea or vomiting, chest pain, or any unexpected problems, contact your Primary Care Provider. Call [facility] ([phone]) or report to the closest Emergency Room. Call 911 if necessary. 09/12/20 5676 <Electronically signed by Isac Middleton MD> Date Isac Middleton MD Cosigner Signature (If Indicated): Date CC: DO Yarelis Amor Start: 09-12-2020 End: 09-12-2020 Chest 1 View (Portable) Comments: See Note; NOTES: [facility] Imaging Services [address] [place] [address] Chest 1 View (Portable) MR#: [id number] Acct: [id number] Name: OFE GIMENZE Rep #: [id number] : 1975 F 45 From: David Loyola DO PCP: Dr. Yarelis Fitzpatrick DO Status: PRE ER Study: Chest 1 View (Portable) Date of Exam: 09/12/20 Exam# [id number] Ordering Dr: Isac Middleton MD STUDY: X-RAY [...] abnormality. Normal size heart. Normal mediastinum and hsay. Normal visualized pulmonary arteries. Normal visualized aortic [...] David Loyola DO at 11:24 EST Tel [phone], Service support , CC: Dr. Isac Middleton MD; Dr. Yarelis Fitzpatrick DO Doubler Helper: Signed Yarelis Fitzpatrick Start: 12-23-2019 End: 12-23-2019 Chest WITH Contrast Comments: See Note; NOTES: [facility] Imaging Services [address] [place] [address] Chest WITH Contrast MR#: [id number] Acct: [id number] Name: OFE GIMENEZ Rep #: [id number] : 1975 F 44 From: Luis doherty MD PCP: Yarelis Fitzpatrick DO Status: REG CLI Study: Chest WITH Contrast Date of Exam: 12/23/19 Exam# [id number] Ordering Dr: Katia Desai POLICY SERVICES REPRESENTATIVEDianna STUDY: CT CHEST WITH CONTRAST REASON FOR [...] 15:15 EDT , Service support , CC: POLICY SERVICES REPRESENTATIVE-C Katia Desai; Yarelis Fitzpatrick DO Doubler Helper: Signed Katia Desai Work Phone: H/O: section Section As juliana Morrow LPN Comment on above: H/O: section Section Mo anna Huynh LPN Comment on above: H/O: section Section Eriberto Sorensen [facility] Comment on above: H/O: section Section Fermin Calderon MA Comment on above: H/O: section Section Mo anna Huynh LPN Comment on above: H/O: section Section Shannon Escobar [facility] Comment on above: H/O: section Section natividad Lemon ORACLE ERP ARCHITECT Comment on above: H/O: section Section natividad Lemon ORACLE ERP ARCHITECT Comment on above: H/O: section Section Jessica Martinez CONTROL BOARD OPERATOR Comment on above: H/O: section Section natividad Lemon [facility] Comment on above: H/O: section Section Radha Matute MA Comment on above: Investigation of tra nsfusion reaction Dr. Yarelis Fitzpatrick Work Phone: Respiratory microbial culture Dr. Yarelis Fitzpatrick Work Phone: Plan of Treatment Date Care Activity Detail Author Start: 01-11-2025 Respiratory microbial culture Respiratory Culture [facility] Start: 12-09-2024 End: 12-09-2024 Patient encounter procedure 12/09/2024 10:40 AM EDT Office Visit Allergy - [address] [place] [address] [place] [address] 6 month follow up Allergy - [place] Comment on above: 6 month follow up Start: 12-09-2024 Measurement of respiratory function [facility] Start: 12-08-2024 [facility] Start: 11-06-2024 End: 11-06-2024 [facility] Start: 11-06-2024 Streptococcus pneumoniae antigen assay [facility] Start: 11-06-2024 [facility] Start: 11-06-2024 Bacteria identified in Blood by Culture Blood Culture [facility] Start: 11-06-2024 Legionella Antigen Legionella Antigen [facility] Start: 11-06-2024 Microscopic observation [Identifier] in Unspecified specimen by Gram stain [facility] Start: 11-06-2024 Respiratory Culture Respiratory Culture [facility] Start: 11-06-2024 Streptococcus pneumoniae Antigen (M Streptococcus pneumoniae Antigen (M [facility] Start: 11-01-2024 Patient referral [facility] Work Phone: Start: 04-21-2024 Covid-19 Vaccine ( season) Covid-19 Vaccine ( season) [facility] Start: 04-21-2024 FLU (#1) FLU (#1) [facility] Start: 04-21-2024 Influenza vaccination Influenza Vaccine (#1) [facility] Start: 2023 Pneumococcal Vaccine: 50+ (2 of 2 - PCV) Pneumococcal Vaccine: 50+ (2 of 2 - PCV) [facility] Start: 2023 Shingrix Vaccine (1 of 2) Shingrix Vaccine (1 of 2) [facility] Start: 04-21-2023 FLU (Season Ended) FLU (Season Ended) [facility] Start: 01-05-2023 Procedure Education Eprescribed prescriptions (G8553) [...] antb titer ea antibody P-ANCA & C-ANCA (56291) [facility]; [facility] Work Phone: Start: 12-16-2022 Blood count complete auto&auto difrntl wbc CBC W/AUTO DIFF WBC (91552) [facility]; [facility] Work Phone: Start: 12-16-2022 Comprehensive metabolic panel METABOLIC PANEL, COMPREHENSIVE (09881) [facility]; [facility] Work Phone: Start: 12-16-2022 Protein total xcpt refractometry urine UPEP (55233) [facility]; [facility] Work Phone: Start: 12-16-2022 Protein electrophoretic fractj&quantj serum SPEP (79453) [facility]; [facility] Work Phone: Start: 12-16-2022 Assay of gammaglobulin ige Immunoglobulins, Quantitative, IgA,IgE, IgG, IgM (36692) [facility]; [facility] Work Phone: Start: 12-16-2022 Lactate dehydrogenase ldh LDH (LD) (LACTATE DEHYDROGENASE) (59936) [facility]; [facility] Work Phone: Start: 12-16-2022 Blood count reticulocyte automated RETICULOCYTE COUNT (16144) [facility]; [facility] Work Phone: Start: 12-16-2022 Iron binding capacity Iron Binding Capacity (TIBC) (16525) [facility]; [facility] Work Phone: Start: 12-16-2022 Assay of ferritin Ferritin (48274) [facility]; [facility] Work Phone: Start: 12-16-2022 Assay of iron Iron (72378) [facility]; [facility] Work Phone: Start: 12-16-2022 Cyanocobalamin vitamin b-12 Vitamin B-12 (cyanocobalamin) (55067) [facility]; [facility] Work Phone: Start: 12-05-2022 Assay of gammaglobulin ige Immunoglobulins Iga/Ige/Igg/Igm (GAME) (44535) [facility]; [facility] Work Phone: Start: 11-07-2022 Patient discharge [facility] Start: 10-14-2022 Procedure Education Eprescribed prescriptions (G8553) [...] Phone: Start: 08-21-2022 DEPRESSION ASSESSMENT DEPRESSION ASSESSMENT [facility] Start: 2022 Procedure Education Eprescribed prescriptions (G8553) [facility]; [facility] Work Phone: Start: 04-26-2022 Procedure Education Eprescribed prescriptions (G8553) [facility]; [facility] Work Phone: Start: 04-21-2022 Influenza vaccination [facility] Start: 02-22-2022 Procedure Education Eprescribed prescriptions [...] Iaadiadoo influenza 2019 Novel Coronavirus (COVID-19), MICHELLE (91169) [facility]; [facility] Work [...] gammaglobulin iga igd igg igm each IGA/IGD/IGG/IGM-EACH (45783) [facility] Work Phone: Comment on above: send all labs to Dr. oates Start: 12-30-2019 Fluorescent nonnfct agt antb screen ea antibody FLURESCNT ANTIB SCRN EA (11224) celiac profile [facility] Work Phone: Start: 12-30-2019 Immunoassay analyte qual/semiqual multiple step IMMUNOASSAY, ANALYTE (NON-INFECT) (77733) celiac profile [facility] Work Phone: Start: 12-24-2019 Assay of iron Iron (94894) [facility]; [facility] Work Phone: Start: 12-24-2019 Iron [Mass/Vol] Iron (32912) [facility] Work Phone: Start: 12-24-2019 Tb cell mediated antign respnse gamma interferon QuantiFERON-TB Gold Plus (QFT-Plus) (96734) [facility] Work Phone: Start: 12-16-2019 SARS-CoV-2 Antibody, IgG SARS-CoV-2 Antibody, IgG [facility] Work Phone: Start: 12-16-2019 Procedure Education Eprescribed prescriptions (G8553) [facility] Work Phone: Start: 12-11-2019 Procedure Education Eprescribed prescriptions (G8553) [facility] Work Phone: Start: 12-11-2019 Provider Instructions for Treatment [facility] Work Phone: Start: 2018 COLOGUARD (FIT-DNA) COLOGUARD (FIT-DNA) [facility] Start: 2018 Colonoscopy COLONOSCOPY [facility] Start: 2018 COLORECTAL CANCER SCREENING COLORECTAL CANCER SCREENING [facility] Start: [address] COLONOGRAPHY [facility] Start: 2018 DIABETES SCREEN DIABETES SCREEN [facility] Start: 2018 Diabetes Screening Diabetes Screening [facility] Start: 2018 FECAL OCCULT BLOOD FECAL OCCULT BLOOD [facility] Start: 2018 Lipid panel Lipid Screening [facility] Start: 2018 LIPID SCREEN LIPID SCREEN [facility] Start: 2018 Screening for malignant neoplasm of colon [facility] Start: 2018 SIGMOIDOSCOPY SIGMOIDOSCOPY [facility] Start: 2013 Mammography MAMMOGRAM [facility] Start: 2013 Screening for malignant neoplasm of breast Mammogram Screening [facility] Start: 02-04-2013 Provider Instructions for Treatment [facility] Work Phone: Start: 06-01-2010 Provider Instructions for Treatment [facility] Work Phone: Start: 06-01-2010 Cul bact xcpt urine blood/stool aerobic isol CULTURE, SPUTUM (03960) [facility] Work Phone: Start: 04-30-2010 Provider Instructions for Treatment FOLLOW UP IN 2 WEEKS [facility] Work Phone: Start: 12-01-2009 Provider Instructions for Treatment [facility] Work Phone: Start: 10-02-2009 Provider Instructions for Treatment [facility] Work Phone: Start: 01-27-2009 Provider Instructions for Treatment Antibiotic Usage Education - Female [facility] Work Phone: Start: 08-27-2008 Provider Instructions for Treatment Solu Medrol Injection/ Education [facility] Work Phone: Start: 11-30-2007 Provider Instructions for Treatment [facility] Work Phone: Start: 11-19-2007 Glucose [Mass/Vol] Glucose, PP/2 Hour (06529) [facility] Work Phone: Start: 11-19-2007 Glucose quantitative blood xcpt reagent strip Glucose, PP/2 Hour (31723) [facility]; [facility] Work Phone: Start: 11-19-2007 Lipid panel LIPID PANEL (24873) [facility] Work Phone: Start: 2003 HPV TESTING HPV TESTING [facility] Start: 1994 Microscopic observation [Identifier] in Cervix by Cyto stain Pap Smear [facility] Start: 1994 PAP TESTING PAP TESTING [facility] Start: 1994 Screening for malignant neoplasm of cervix Cervical Cancer Screening [facility] Start: 1992 Hepatitis B (1 of 3 - 19+ 3-dose series) Hepatitis B (1 of 3 - 19+ 3-dose series) [facility] Start: 1992 Hepatitis B Vaccine (1 of 3 - 19+ 3-dose series) Hepatitis B Vaccine (1 of 3 - 19+ 3-dose series) [facility] Start: 1992 Urine microalbumin profile [facility] Start: 1991 Anxiety Screening Anxiety Screening [facility] Start: 1991 Depression Screening Depression Screening [facility] Start: 1991 HEPATITIS C SCREENING HEPATITIS C SCREENING [facility] Start: 1991 Hepatitis C screening Hepatitis C Screening [facility] Start: 1991 HIV SCREENING HIV SCREENING [facility] Start: 1991 HIV screening HIV Screening [facility] Start: 1989 MenB (1 of 2 - MenB 2-Dose Series Bexsero) MenB (1 of 2 - MenB 2-Dose Series Bexsero) [facility] Start: 1986 Varicella (1 of 2 - 13+ 2-dose series) Varicella (1 of 2 - 13+ 2-dose series) [facility] Start: 1985 Adult depression screening assessment DEPRESSION SCREENING [facility] Start: 1980 Tetanus Diphtheria and Pertussis Vaccines (1 - Tdap) Tetanus Diphtheria and Pertussis Vaccines (1 - Tdap) [facility] Start: 1978 COVID-19 (#1) COVID-19 (#1) [facility] Start: 1978 COVID-19 VACCINE (#1) COVID-19 VACCINE (#1) [facility] Start: 1974 MMR (1 of 1 - Standard series) MMR (1 of 1 - Standard series) [facility] Start: 1974 Varicella (1 of 2 - 2-dose childhood series) Varicella (1 of 2 - 2-dose childhood series) [facility] Start: 1973 COVID-19 (#1) COVID-19 (#1) [facility] Start: 1973 COVID-19 VACCINE (#1) COVID-19 VACCINE (#1) [facility] Start: 1973 HEPATITIS B (1 of 3 - 3-dose series) HEPATITIS B (1 of 3 - 3-dose series) [facility] Bacteria identified in Sputum by Culture [facility] Bacteria identified in Sputum by Respiratory culture [facility] CT Chest WO contrast [facility] Legionella pneumophi la Ag [Presence] in Urine [facility] Lymphocyte Profile Lymphocyte Pr ofile Lab Routine Recurrent infections Low serum IgG for age 0602/13/2023 4:37 PM EDT [facility] Work Phone: Lymphocyte Proliferation, Mitogens Lymphocyte Proliferation, Mitogens Lab Routine Recurrent infections Low serum IgG for age 0602/13/2023 4:37 PM EDT [facility] Measurement of respiratory function [facility] Measurement of respiratory function [facility] Patient Education [facility] Work Phone: Patient referral [facility] Work Phone: S. Pneumo IGG ABS, 2 3 Serotypes S. Pneumo IGG ABS, 23 Serotypes Lab Routine Recurrent infections Low serum IgG for age 0602/13/2023 4:37 PM EDT [facility] Tetanus toxoid, IgG Abs Tetanus toxoid, IgG Abs Lab Routine Recurrent infections Low serum IgG for age 0602/13/2023 4:37 PM EDT [facility] Work Phone: [facility] Work Phone: [facility] Work Phone: [facility] Work Phone: [facility] Work Phone: [facility] Work Phone: [facility] Work Phone: [facility] Work Phone: [facility] Work Phone: [facility] Work Phone: [facility] Work Phone: [facility] Work Phone: [facility] Work Phone: [facility] Work Phone: Immunizations Immunization Date Immunization Notes Care Provider Yolette patel 04-29-2013 pneumococcal polysaccharide vaccine, 23 valent Abrahan Peterson APRN.CHILD CARE SITTER Work Phone: [facility] Payers Date Payer Category Payer Unknown [id number] 2024 Self-pay [id number] 2022 Unknown [id number] 2021 Unknown [id number] 2020 Unknown [id number] 2019 Unknown 2019 Unknown [facility] [id number] 2019-Present [phone] [facility] [id number] [place] [address] PPO [id number] 2008 Unknown [id number] 2006 Unknown [id number] 1975 Unknown [id number] 2..[id number] 1975 Unknown [id number] 2.840.1.230717.3.579.2.479 1975 Unknown [id number] 2.16.840.1.606458.3.579.2.479 1975 Unknown [id number] 2.16.840.1.922387.3.579.2.479 1975 Unknown [id number] 2.16.840.1.415782.3.579.2.479 Self-pay SELF PAY ER DEPOSIT [id number] Unknown [facility] [id number] Unknown [id number] 2.16.840.1.259519.3.579.2.462 Unknown [id number] 2.16.840.1.001276.3.579.2.462 Unknown [id number] 2.16.840.1.773409.3.579.2.462 Unknown [id number] 2.16.840.1.079854.3.579.2.462 Unknown [id number] 2.16.840.1.743782.3.579.2.462 Unknown [id number] 2.16.840.1.885259.3.579.2.462 Unknown [id number] 2.16.840.1.366279.3.579.2.462 Unknown [id number] 2.16.840.1.483021.3.579.2.462 Unknown [id number] 2.16.840.1.526914.3.579.2.462 Unknown [id number] 2.16.840.1.224364.3.579.2.462 Unknown [id number] 2.16.840.1.975890.3.579.2.462 Unknown [id number] 2.16.840.1.377134.3.579.2.462 Unknown [id number] 2.16.840.1.846818.3.579.2.462 Unknown [id number] 2.16.840.1.542673.3.579.2.462 Social History Date Type Detail Facility Start: 07-25-2020 End: 08-11-2021 Caffeine Use Caffeine Use [facility] Work Phone: Comment on above: qd Light Lives with spouse 2 [employer] Start: 11-04-2011 End: 12-08-2024 Tobacco smoking status MDIS Never smoked tobacco [facility] Start: 01-23-2022 End: 11-06-2022 Alcohol intake Not Asked [facility] Start: 1975 Sex Assigned At Not on file [facility] Start: 01-13-2022 End: 01-23-2022 Exposure to SARS-CoV-2 (event) Not sure [facility] Work Phone: Start: 09-12-2020 End: 08-15-2023 Tobacco smoking status NHIS Unknown if ever smoked [facility] Start: 1975 Sex Assigned At Female [facility] Start: 11-04-2011 End: 07-07-2023 Tobacco use and exposure Smokeless tobacco non-user [facility] Work Phone: Start: 07-25-2020 End: 08-11-2021 Gender identity Not on file [facility] National Score (1-100), lower number is lower risk Not on file [facility] Start: 10-28-2024 End: 12-08-2024 Sex Female (finding) [facility] NEGATED: Highlighted row [facility] NEGATED: Highlighted rowStart: NINF History of tobacco use Passive smoker [facility] Mental Status Date Assessment Result Facility 12-08-2024 Cognitive function Awake;Alert;A ppropriate;Follow s Commands [facility] Work Phone: 11-06-2024 Cognitive function Level Of Cons ciousness Awake;Alert;Appropriate;Follow s Commands [facility] Work Phone: Clinical Notes 05-14-2021 to 12-08-2024 Note Date & Type Note Facility 12-08-2024 Discharge summary [facility] 12-08-2024 Radiology Diagnostic study note [facility] Imaging Services [address] [place], [place] [address] Chest PA and Lateral MR#: [id number] Acct: [id number] Name: OFE GIMENEZ Rep #: [id number] : 1975 F 49 From: Celena Blake MD PCP: Dr. Yarelis Fitzpatrick, DO Status: NJ E ER Study:Chest PA and Lateral Date of Exam: 12/08/24 Exam# [id number] Ordering Dr: Magy Mai MD PROCEDURE: CHEST PA AND LATERAL 12/08/2024 REASON FOR EXAM: PRODUCTIVE COUGH, WHEEZING, EGOPHONYRLL TECHNIQUE: Frontal and lateral views of the chest. COMPARISON: Chest x-ray dated 08/27/2024. FINDINGS: The cardiac silhouette is within normal limits. The lungs are hyperlucent and hyperexpanded due to COPD type changes. No focal consolidation is seen within the lungs. No pneumothorax. Areas of scarring seen within the upper lung zones. RAD/Chest PA and Lateral IMPRESSION: COPD type changes. No change since prior examination. No new infiltrate or consolidation is seen. Reading Location: [id number] CC: Dr. Yarelis Fitzpatrick DO; Dr. Mike Mai MD ~ Doubler Helper: Signed [facility] 12-08-2024 Hospital Discharge instructions Additional Instructions 1. Discontinue the azithromycin 2. Start the doxycycline once you fill the prescription 3. Take prednisone until gone 4. 2 puffs of your inhaler every 2-4 hours while awake for the next 3 days. [facility] Work Phone: 11-06-2024 Discharge summary [facility] 11-06-2024 Radiology Diagnostic study note [facility] Imaging Services [address] [place] [address] CTA Chest W/WO Contrast MR#: [id number] Acct: [id number] Name: OFE GIMENEZ Rep #: [id number] : 1975 F 49 From: Margarette Gross MD PCP: Dr. Yarelis Fitzpatrick DO Status: RE G ER Study:CTA Chest W/WO Contrast Date of Exam: 11/06/24 Exam# [id number] Ordering Dr: Chico Vanegas DO PROCEDURE: CTA CHEST W/WO CONTRAST 11/06/2024 REASON FOR EXAM: CHEST PAIN PULMONARY EMBOLISM TECHNIQUE: CTA axial imaging of the chest with intravenous contrast. Coronal, Sagittal and3D with MIP reconstruction series were provided. PATIENT PREPARATION: Per protocol CONTRAST: VOLUME: 100mL Omnipaque 350 gauge IV One or more dose reduction techniques were used (e.g., Automated exposure control, adjustment of the mA and/or kV according to patient size, use of iterative reconstruction technique). COMPARISON: CT chest 10/15/2024 FINDINGS: Hardware: None Lymph nodes: Multiple prominent but nonenlarged by size criteria hilar and mediastinal lymph nodes, which are likely reactive. Heart: No cardiomegaly. Thoracic Aorta: No thoracic aortic aneurysm or dissection. Pulmonary Vessels: No large central pulmonary emboli are identified. Contrast timing is suboptimal for evaluation of more distal branches. Most Proximal Level of Embolus (if embolus present): Lungs and Airways: Central airways are patent without endobronchial lesions. Biapical scarring. Mild emphysema in the upper lobes. Scattered ground-glass and consolidative opacities, for example in the left lower lobe (series 2, image 79); and anterior right middle lobe (image 150). Findings are concerning for pneumonia. Mild bilateral bronchial wall thickening. No pneumothorax. No pleural effusion. Upper Abdomen: Small hiatal hernia. Bones: Bone windows are unremarkable. CT/CTA Chest W/WO Contrast IMPRESSION: No evidence of pulmonary embolism. Ground-glass and consolidative opacities left lower lobe and anterior right middle lobe, concerning for multifocal pneumonia. Reading Location: [facility] CC: Dr. Yordan Vanegas DO; Dr. Yarelis Fitzpatrick DO ~ Doubler Helper: Signed [facility] 11-06-2024 Discharge summary Note Date/Time November 06, 2024 11:30pm [facility] Medical Records Department [address] [place] [address] Emergency Department Summary 11/06/24 MR#: [id number] Acct: [id number] Name: OFE GIMENEZ Rep #:[id number] : 1975 49 From: Yordan Phillips PCP: Dr. Yarelis Fitzpatrick DO Status:RE G ER Location: ED ADDENDUM by Dr. Yordan Vanegas DO on 11/06/24 at 2330 Update: After prescriptions were sent plan discussed with patient she is concerned that doxycycline upsets her stomach. Therefore I will change her to azithromycin. 11/06/24 2330<Electronically signed by Yordan Vanegas DO> Cosigner Signature (if applicable): cc: Dr. Yarelis Fitzpatrick, ~* Signed HPI History of Present Illness Chief Complaint: General Illness Informant: patient and spouse/S.O. Narrative Narrative: 49-year-old female presenting to the emergency room with chest pain cough changein sputum and bodyaches. 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 Vazquez. In September of this year she was found to have strep pneumonia infection was started on 10 days of Augmentin and recently completed a course ofLevaquin. She has been doing pulmonary toilet. She states that the end of lastweek when she followed up in the office she was having clear sputum but today has turned green. She notes that she had a sudden onset of bodyaches and has developed a pain in the left lower anterior chest. She states it feels similar to when she had pneumonia on her right upper chest. The patient was found to have a possible mass on chest CT in September and also had a PET scan. It was felt that this mass could possibly be scar tissue complicated with pneumonia. She denies significant rhinorrhea vomiting diarrhea or rash. She has not no history of coronary artery disease or pulmonary embolism. She felt feverish butdid not take her temperature. At 1900 hrs. she took Tylenol temperature in triage is 99.6. She does not wear home oxygen. She is a lifelong non-smoker. [facility] Medical History (Updated 11/06/24 @ 23:[address] Yordan Vanegas DO) Immunoglobulin deficiency Mass of upper lobe of right lung Bronchiectasis Immune deficiency disorder Home Medications ?Medication ?Instructions ?Recorded ?Last Taken ?Type PEP device #1 ea 08/15/23 Unknown Rx immun glob G 4 gram/20 mL (20 8 mg subcut QWEEK Unknown History %)-prol-IgA 0-50 mcg/mL subcutaneous syr (Hizentra) nebulizer kits #1 ea 08/30/24 Unknown Rx levalbuterol HCl 0.63 mg/3 mL 0.63 mg (3 mL) inhalatio n Q12H #90 10/01/24 Unknown Rx solution for nebulization mL cefdinir 300 mg capsule 300 mg PO BID #14 caps 11/06 Unknown Rx doxycycline monohydrate 100 mg 100 mg PO BID #14 CAPSU LES 11/06/24 Unknown Rx capsule Allergy/AdvReac Type Severity Reaction Status Date / Time No Known Allergies Allergy Verified 11/06/24 21:19 Surgical History Hx of section Social History household members: spouse Smoking Status: Never smoker substance use type: does not use ROS ROS ED Constitutional Constitutional ED: Reports chills, fever(s) and subjective; Denies weight loss Eyes Eyes: Denies change in vision or diplopia ENT ENT ED: Denies ear pain, rhinorrhea or sore throat Cardiovascular Cardiovascular: Reports chest pain; Denies orthopnea, palpitations or racing heartbeat Respiratory/Chest Respiratory/Chest: Reports cough and dyspnea; Denies orthopnea Gastrointestinal Gastrointestinal: Denies abdominal pain, diarrhea, nausea or vomiting Genitourinary Genitourinary ED: Denies dysuria, hematuria or urinary frequency Musculoskeletal Musculoskeletal: Reports arthralgias and myalgias Integumentary Denies abscess or rash Neurologic Neurologic: Denies headache(s) or weakness Psychiatric Psychiatric: Denies anxiety, depression, suicidal ideation or suicidal thoughts Endocrine Endocrinology: Denies polydipsia, polyphagia or polyuria Allergic/Immunologic Allergic/Immunologic ED: Denies mouth swelling, tongue swelling or urticaria EXAM Physical Exam Const Vital Signs: 11/06/24 21:19 11/06/24 21:38 11/06/24 22:55 Temperature 99.6 F H 98.5 F Temperature Source Oral Oral Pulse Rate 114 H 100 Respiratory Rate 18 18 Respiratory Effort Normal Respiratory Pattern Normal Blood Pressure 171/93 H 152/80 H Blood Pressure Mean 119 104 Pulse Ox 97 98 Oxygen Delivery Method Room Air Room Air Positive well nourished and well developed General Appearance ED: well developed and NAD HEENT Reports normocephalic, head/scalp atraumatic and moist mucous membranes Eyes PERRL and EOMs intact bilaterally Neck no lymphadenopathy, supple and no JVD Resp normal respiratory effort and clear to auscultation bilaterally Cardio regular rate, regular rhythm and no murmurs Rate: tachycardic GI normal to inspection, nondistended, normoactive bowel sounds and non-tender Palpation: soft Back/Spine no CVA tenderness and normal ROM Extremity normal to inspection General Extremety ED: Negative for edema General Extremity: Negative for edema Neuro oriented x3 and CN's II-XII intact bilaterally Sensorium / Orientation: alert Motor Exam: strength 5/5 throughout Psych mental status grossly normal Mood & Affect: Negative for depressed or tearful Skin no rashes or lesions noted and no wounds MDM MDM MDM Narrative Medical decision making narrative: Differential diagnosis includes acute coronary syndrome pulmonary embolism pneumonia pleural effusion pleurisy viral syndrome (COVID influenza RSV) sepsis. COVID influenza and RSV swab is negative. White count is elevated at 20.2. While seemingly significantly elevated. She has had these high white counts in the past as an outpatient. Most recently though her white count had normalized. CMP is within normal limits. A CTA of the chest was obtained. There appears to be a new infiltrative process in the left lower anterior lung valentino. This is where the patient is having her discomfort. Spoke with the patient and her regarding the above results. We talked about admission versus follow-up. I do think it is reasonable that she follow-up with infectious disease and she states that she was actually told that she should follow-up and was expecting a phone call from them soon. I am going to add on blood cultures Legionella antigen and strep pneumo antigen. Also write an order for her to bring up a sputum specimen. I would like for her to use herPEP device to help bring a good specimen. She is most recently been on Augmentin and Levaquin. I am going to write for her to have cefdinir and doxycycline. Patient is comfortable with return instructions and follow-up. History & Record Review Discussion w/independent historian: Patient and Significant other Additional record(s) reviewed:: Prior outpatient record and Prior labs Lab Data Attestation: I reviewed the patient's lab results. Labs: Laboratory Results - last 24 hr 11/06/24 11/06/24 21:35 22:30 WBC 20.2 H RBC 4.65 Hgb 13.1 Hct 37.9 MCV 81.5 MCH 28.2 MCHC 34.6 RDW Std Deviation 42.3 RDW Coeff of Mendy 14.4 Plt Count 536 H MPV 9.6 Immature Gran % (Auto) 0.500 Neut % (Auto) 77.6 H Lymph % (Auto) 14.8 L Cooke % (Auto) 6.4 Eos % (Auto) 0.2 Baso % (Auto) 0.5 Absolute Neuts (auto) 15.7 H Absolute Lymphs (auto) 2.98 Nucleated RBC % 0 Sodium 140 Potassium 3.7 Chloride 104 Carbon Dioxide 23.7 Anion Gap 12 BUN 12 Creatinine 0.77 Estim Creat Clear Calc 80.92 Est GFR (MDRD) Non-Af 94 BUN/Creatinine Ratio 15.6 Glucose 139 H Calcium 9.4 Total Bilirubin 0.24 AST 26 ALT 21 Alkaline Phosphatase 94 Troponin T High Sens 7 Total Protein 6.9 Albumin 4.2 Globulin 2.7 Albumin/Globulin Ratio 1.5 Urine Color Yellow Urine Clarity Clear Urine pH 8.0 Ur Specific Bellaire 1.010 Urine Protein Negative Urine Glucose (UA) Normal Urine Ketones Negative Urine Occult Blood Negative Urine Nitrite Negative Urine Bilirubin Negative Urine Urobilinogen Normal Ur Leukocyte Esterase Negative Urine RBC 0 SEEN Urine WBC 0-5 SEEN Ur Squamous Epith Cells 0 SEEN Urine Bacteria 0 SEEN Urine Mucus 0 SEEN Radiography Diagnostic Testing: Clinical Impression(s) from Imaging Studies Chest CTA 11/06/24 21:55 IMPRESSION: No evidence of pulmonary embolism. Ground-glass and consolidative opacities left lower lobe and anterior right middle lobe, concerning for multifocal pneumonia. Reading Location: [facility] EKG Initial EKG: Attestation: I personally reviewed and interpreted this EKG as follows: Comments: Normal sinus rhythm ventricular rate of 100 bpm Discharge Plan Triage Chief Complaint: General Illness ED Provider: Yordan Vanegas Dx/Rx/DC Orders Clinical Impression: Pneumonia, Bronchiectasis, Chest pain, pleuritic Instructions: ED Pneumonia (Adult) Prescriptions: New cefdinir 300 mg capsule 300 mg PO BID Qty: 14 0RF doxycycline monohydrate 100 mg capsule 100 mg PO BID Qty: 14 0RF No Action (DME) PEP device See Rx Instructions .ROUTE .MEDSUPPLY Qty: 1 0RF Rx Instructions: with training Hizentra 4 gram/20 mL (20 %) syringe 8 mg subcut QWEEK (DME) nebulizer kits See Rx Instructions .ROUTE .MEDSUPPLY Qty: 1 11RF Rx Instructions: As directed levalbuterol HCl 0.63 mg/3 mL solution for nebulization 0.63 mg inhalation Q12H Qty: 90 3RF Other Ambulatory Orders: Culture, Sputum (Routine) Timeframe: 1 Day Facility: [facility] - Location: Laboratory Ordered By: Dr. Yordan Vanegas Primary Care Provider: Yarelis Fitzpatrick Referrals: Yarelis Fitzpatrick DO [Primary Care Provider] - Rajat Velázquez MD [Med Staff - Active Staff] - As soon as possible (for infectious disease) Print Language: Albanian Disposition Disposition: Home, Self Care What to do if you have Problems For any increased pain, shortness of breath, bleeding, nausea or vomiting, chestpain, or any unexpected problems, contact your Primary Care Provider. Call [facility] ([phone]) or report to the closest Emergency Room. Call 911 if necessary. 11/06/24 2049 <Electronically signed by Yordan Vanegas DO> Cosigner Signature (if applicable): CC: Dr. Yarelis Fitzpatrick DO ~ Signed [facility] Work Phone: 1(302) 134-315103-14-2025 Evaluation note* Diagnosis Onset Date Resolution Status Admit Date Bronchiectasis inactive October 10:52am Immunoglobulin deficiency inactive November 01, 2024 10:52am Mass of upper lobe of right lung shawn ctive November 01, 2024 10:52am [facility] Work Phone: 1(748) 410-771402-26-2025 Radiology Diagnostic study note [facility] Imaging Services [address] [place], [place] [address] Chest WITH Contrast MR#: [id number] Acct: [id number] Name: OFE GIMENEZ Rep #: [id number] : 1975 F 49 From: Juan Rossi MD PCP: Dr. Yarelis Fitzpatrick DO Status: RE G CLI Study:Chest WITH Contrast Date of Exam: 10/15/24 Exam# [id number] Ordering Dr: Sly Jacobson POLICY SERVICES REPRESENTATIVE-C PROCEDURE: CHEST WITH CONTRAST REASON FOR EXAM: History of pneumonias. TECHNIQUE: Chest CTA with intravenous contrast and 3D reconstructions. Abdomen and pelvis CT using the same contrast dose. CONTRAST: 97 cc of Isovue-300. COMPARISON: Comparison is made with prior study dated August 28, 2024. FINDINGS: CHEST: Lines and tubes: None. Mediastinum: Stable slightly enlarged right paratracheal lymph node. Heart: Normal heart size. No pericardial effusion. Coronary artery calcification. Thoracic Aorta: No thoracic aortic aneurysm or dissection. Lungs and Airways: Hyperinflation. Stable scarring at the lung apices more prominent in the right upper lobe. Stable bronchiectasis with scarring in the anterior aspect of the right upper lobe along its medial aspect. Persistent soft tissue density most likely representing scarring rather than true mass lesion. This has decreased in size as compared to prior study. Pleura: No pleural effusion. No pneumothorax. Bones: Degenerative changes of the spine. CT/Chest WITH Contrast IMPRESSION: Essentially stable examination. Further follow-up recommended. One or more dose reduction techniques were used (e.g., Automated exposure control, adjustment of the mA and/or kV according to patient size, use of iterative reconstruction technique). Reading Location: [id number] CC: DARRYN Jacobson; Dr. Yarelis Fitzpatrick, DO ~ Doubler Helper: Signed [facility]01-10-2025 Telephone encounter Note* Telephone Encounter - Alis Mcclain RN - 08/30/2024 1:42 PM EST Patient calling with health information: patient requesting health information about how to be seen, reviewed general nursing knowledge information. Patient verbalized understanding of information provided Patient denies any new or worsening symptoms of which a provider is not aware:Yes [facility]01-10-2025 Miscellaneous Notes* Telephone Encounter - Alis Mcclain RN - 08/30/2024 1:42 PM EST Patient calling with health information: patient requesting health information about how to be seen, reviewed general nursing knowledge information. Patient verbalized understanding of information provided Patient denies any new or worsening symptoms of which a provider is not aware:Yes [facility] Evaluation note* Diagnosis Onset Date Resolution Status Admit Date Mass of upper lobe of right lung acute August 30 8:47am Bronchiectasis chronic August 302024 8:47am Immunoglobulin deficiency chronic August 30, 2024 8:47am [facility] Work Phone: 1(525) 573-505501-10-2025 Evaluation note* Diagnosis Onset Date Resolution Status Admit Date Bronchiectasis inactive August 302024 8:47am Immunoglobulin deficiency inactive August 30, 2024 8:47am Mass of upper lobe of right lung inactive August 30 8:47am Bronchiectasis inactive October 10:52am Immunoglobulin deficiency inactive November 01, 2024 10:52am Mass of upper lobe of right lung inactive November 01, 2024 10:52am [facility] Work Phone: 1(943) 613-807911-27-2023 Procedure [facility] 11-07-[address] Solis [facility] November 07, 2022 12:41am Note Date/Time November 06, 2022 11: 09pm [facility] Medical Records Department [address] [place] [address] Emergency Department Summary 11/06/22 MR#: [id number] Acct: [id number] Name: OFE GIMENEZ Rep #:[id number] : 1975 47 From: Adelfo Solis DO PCP: Dr. Yarelis Fitzpatrick, DO Status:RE G ER Location: ED HPI HPI - GI History of Present Illness Chief Complaint: Abd Pain Narrative Narrative: Patient presenting with left-sided flank and abdominal pain but also states the right side is hurting. She states that it appears to radiate into both hips anddown her legs. This started acutely at 1300. She is having difficulty finding a position of comfort. She has not had a fever. She denies any urinary complaints. She states he has a history of kidney stone when she was 16 has nothad one since. No constipation or diarrhea. No [...] the bed. CBC obtained to assess white bloodcell count, hemoglobin, differential. BMP to assess renal [...] % (Auto) 66.8 Lymph % (Auto) 25.4 Cooke % (Auto) 6.8 Eos % (Auto) 0.0 [...] Color Urine Clarity Urine pH Ur Specific Bellaire Urine Protein Urine Glucose (UA) Urine Ketones Urine Occult Blood Urine Nitrite Urine Bilirubin Urine Urobilinogen Ur Leukocyte Esterase Urine RBC Urine WBC Ur Squamous Epith Cells Amorphous Sediment Urine Bacteria Urine Mucus 11/06/22 22:27 WBC RBC Hgb Hct MCV MCH MCHC RDW Std Deviation RDW Coeff of Mendy Plt Count MPV Immature Gran % (Auto) Neut % (Auto) Lymph % (Auto) Cooke % (Auto) Eos % (Auto) Baso % (Auto) Absolute Neuts (auto) Absolute Lymphs (auto) Nucleated RBC % Sodium Potassium Chloride Carbon Dioxide Anion Gap BUN Creatinine Estim Creat Clear Calc Est GFR (MDRD) Af Amer Est GFR (MDRD) Non-Af BUN/Creatinine Ratio Glucose Calcium Serum , Qual Urine Color Yellow Urine Clarity Sl. Cloudy Urine pH 6.5 Ur Specific Bellaire 1.020 Urine Protein 30 H Urine Glucose [...] mg PO DAILY Primary Care Provider: Yarelis Fitzpatrick Referrals: Elisabeth Patricia MD [Med Staff - Active Staff] - As soon as possible Yarelis Fitzpatrick DO [Primary Care Provider] - Disposition Disposition: Home, Self Care What to do if you have Problems For any increased pain, shortness of breath, bleeding, nausea or vomiting, chestpain, or any unexpected problems, contact your Primary Care Provider. Call [facility] ([phone]) or report to the closest Emergency Room. Call 911 if necessary. 11/07/22 0041 <Electronically signed by Adelfo Solis DO> Cosigner Signature (if applicable): CC: Dr. Yarelis Fitzpatrick DO ~ Signed [facility] Work Phone: 1(211) 606-143103-19-2023 History of Present illness Narrative* Abrahan Peterson APRN.CHILD CARE SITTER - 11/06/2022 10:00 AM EDT Subjective HPI HPI Ofe Gimenez is a 47 year old female who presents today for CC of cough, congestion, bilateye redness/drainage. This started 1 week ago. Has [...] nebu Inhale 3 mL as instructed every 4hours as needed for wheezing/shortness of breath. doxycycline [...] inhaler use. - PREDNISONE 20 MG TABLET Abrahan Peterson APRN.CNP [facility]22 NoteHNO ID: [id number] Author: Abrahan Peterson APRN.CNP Service: ? Author Type: Nurse Practitioner [...] symptoms persist. Agrees to plan Declines avs Abrahan Peterson APR[facility] History of Present illness Narrative* Abrahan Peterson APRN.ANGEL - 01/23/2022 9:03 AM EDT Subjective HPI HPI Ofe Gimenez is a [...] nebu Inhale 3 mL as instructed every 4hours as needed for wheezing/shortness of breath. famotidine [...] symptoms persist. Agrees to plan Declines avs Abrahan Peterson APRN.ANGEL documented in [facility]01-[facility]-2022 NoteHNO ID: [id number] Author: Melva Reyna APRN.ANGEL Service: ? Author Type: Nurse Practitioner [...] Wt 66.5 kg (146 lb 9.6 oz) LMP 12/21/2015 SpO2 98% BMI 24.21 kg/m? Social History Tobacco Use - Smoking status: Never Smoker - Smokeless tobacco: Never Used Vaping Use - Vaping Use: Never used Substance Use Topics - Alcohol use: Not on file - Drug use: Not on file PAST MEDICAL HISTORY Diagnosis Date - Environmental allergies - Pneumonia hospitalized x2 I have confirmed and edited as necessary, the [facility] Review of Systems Constitutional: Positive for malaise/fatigue. [...] in 24-48 hours with results, available on [employer] - COVID WITH FLUA+B, ROUTINE 4. Acute [...] detail warranting prompt ER evaluation. Melva Reyna APRN.[facility]12-22-2021 NoteHNO ID: [id number] Author: RT Samuel(R) Service: ? Author Type: Technologist Type: Progress Notes Filed: 08/11/2021 7:04 PM Note Text: Radiology Service Progress Note PATIENT NAME: Ofe Gimenez DATE OF SERVICE: August 11, 2021 [...] PERIPHERAL IV DATA: Not applicable SIGNED BY: Ruy Torres RT(R) August 11, 2021 6:58 [facility]12-22-2021 NoteHNO ID: [id number] Author: Len Marinelli APRN.CHILD CARE SITTER Service: ? Author Type: Nurse Practitioner Type: [...] symptoms occur. Patient agreeable to treatment plan. Len Marinelli APRN.[facility]12-22-2021 History of Present illness Narrative* Ruy Torres RT(R) - 08/11/2021 7:00 PM EST Radiology Service Progress Note PATIENT NAME: Ofe Gimenez DATE OF SERVICE: August 11, 2021 TIME: 6:58 PM PATIENT IDENTITY VERIFICATION COMPLETED USING TWO (2) IDENTIFIERS: Name and Date of confirmedby patient verbally. FALL SCREENING: Has the patient [...] RT Samuel(R) August 11, 2021 6:58 PM documented in [facility] encounterWestern [facility]09-24-2021 NoteHNO ID: [id number] Author: Margarito Alston PA-C Service: ? Author Type: Physician Swatcher Type: Progress Notes Filed: 05/15/2021 9:13 AM [...] have confirmed and edited as necessary, the [facility] Review of Systems Constitutional: Positive for fever [...] 3 MG (2.5 MG BASE)/3 ML NEBULIZATION SAVANA Covid testing ordered; Results will be released to [facility] in 24-48 hours Discussed quarantine, social distancing, hand washing/proper hygiene. Rest, fluids, OTC medications discussed -Reviewed red flags (ie chest pain, shortness of breath) with patient and when to seek care sooner. FERMIN [facility] summary Author Mike Mai [facility] Note Date/Time December 08, 2024 8:5 4am [facility] Medical Records Department [address] [place] [address] Emergency Department Summary 12/08/24 MR#: [id number] Acct: [id number] Name: OFE GIMENEZ Rep #:[id number] : 1975 49 From: Mike Mai MD PCP: Dr. Yarelis Fitzpatrick, DO Status:RE G ER Location: ED HPI History of Present Illness Chief Complaint: Chest Other Detail of Chief Complaint: Productive cough, wheezing complicated by history of immune globulin defici Informant: patient Onset/Context/Timing Onset: Weeks Context: Sudden Onset Timing: Continuous and Waxes and wanes Quality: Upper respiratory symptoms with productive cough of colored sputum Location: Respiratory Current Severity: Mild Maximum Severity: Moderate Worsened by: Nothing specific Relieved by: Nothing Associated Symptoms Associated Symptoms: Subjective fever with chills Narrative Narrative: Patient is a 49-year-old woman. She has history of IgG immunodeficiency followed by Dr. Vazquez at [facility]. She was prescribed azithromycin. Her fifth dose will be this evening. She states she has had no improvement. She was recently seen by pulmonary. She had a PET scan and subsequent CAT scan. There is a spiculated right upper lobe 2.6 cm mass that was suspicious for malignancy. After reviewing PET scan, taking into consideration her history and consultation with several physicians it was determined this most likely represents scar tissue. Patient states she normally does not have runny nose or congestion when she getspneumonia. Based on office note by nurse practitioner from pulmonary departmentpatient had obstructive pneumonia recently. She denies history of VTE. She has no risk factors for VTE. She denies leg pain, swelling or discoloration. Patient states there is no one ill at home. She is never smoked. She denies headache, visual, ocular or auditory symptoms. She denies GI symptoms. She has been using her inhaler more frequently with improvement. 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 Bronchiectasis Immune deficiency disorder Home Medications ?Medication ?Instructions ?Recorded ?Last Taken ?Type PEP device #1 ea 08/15/23 Unknown Rx immun glob G 4 gram/20 mL (20 8 mg subcut QWEEK Unknown History %)-prol-IgA 0-50 mcg/mL subcutaneous syr (Hizentra) nebulizer kits #1 ea 08/30/24 Unknown Rx levalbuterol HCl 0.63 mg/3 mL 0.63 mg (3 mL) inhalatio n Q12H #90 10/01/24 Unknown Rx solution for nebulization mL azithromycin 250 mg tablet 250 mg PO DAILY #4 TABLETS 11/06/24 Unknown Rx cefdinir 300 mg capsule 300 mg PO BID #14 caps 11/06 Unknown Rx doxycycline monohydrate 100 mg 100 mg PO BID #14 CAPSU LES 12/08/24 Unknown Rx capsule prednisone 20 mg tablet 60 mg (3 x 20 mg) PO DAILY # 15 12/08/24 Unknown Rx TABLETS Allergy/AdvReac Type Severity Reaction Status Date / Time No Known Allergies Allergy Verified 12/08/24 06:51 Surgical History Hx of section Social History household members: spouse Smoking Status: Never smoker substance use type: does not use ROS ROS ED Constitutional Constitutional ED: Reports chills, fever(s), subjective and sweats; Denies weight loss Eyes Eyes: Denies blurry vision or change in vision ENT ENT ED: Reports rhinorrhea; Denies ear pain or sore throat Cardiovascular Cardiovascular: Denies chest pain, orthopnea, palpitations or paroxysmal nocturnal dyspnea Respiratory/Chest Respiratory/Chest: Reports cough, dyspnea, dyspnea on exertion and sputum; Denies orthopnea or paroxysmal nocturnal dyspnea Gastrointestinal Gastrointestinal: Denies abdominal pain, nausea or vomiting Genitourinary Genitourinary ED: Denies dysuria, hematuria or urinary frequency Musculoskeletal Musculoskeletal: Denies arthralgias or myalgias Integumentary Denies rash Neurologic Neurologic: Reports weakness Endocrine Endocrinology: Denies cold intolerance or heat intolerance Hematologic/Lymphatic Hematologic/Lymphatic: Reports systems reviewed and no addt'l complaints, exceptas documented Allergic/Immunologic Allergic/Immunologic ED: Denies mouth swelling EXAM Physical Exam Const Vital Signs: 12/08/24 06:50 12/08/24 06:54 12/08/24 07:10 Temperature 98.2 F 98.2 F Temperature Source Oral Oral Pulse Rate 108 H 108 H 108 H Respiratory Rate 20 H 20 H 22 H Respiratory Pattern Tachypnea Blood Pressure 182/99 H 165/83 H Blood Pressure Mean 126 110 Pulse Ox 97 97 Oxygen Delivery Method Room Air 12/08/24 07:15 Temperature Temperature Source Pulse Rate Respiratory Rate Respiratory Pattern Hyperpnea Blood Pressure Blood Pressure Mean Pulse Ox Oxygen Delivery Method Room Air Positive well nourished and well developed Constitutional Narrative: Patient looks ill but nontoxic. Vital signs are marked for an elevated blood pressure, heart rate and respiratory rate. She is not febrile nor she hypoxic. General Appearance ED: well developed; Negative for pallor HEENT HEENT Narrative: Head is atraumatic normocephalic. Ears normal. Nares patent. Eyes PERRL and EOMs intact bilaterally General Eye ED: Negative for pale conjunctiva or scleral icterus Neck no lymphadenopathy, supple and no JVD Resp normal respiratory effort and No clear to auscultation bilaterally Resp Narrative: Patient has bilateral rales and expiratory wheezing greater on the right. Thereis egophony with question of increased vocal fremitus right lower lobe posteriorly. Expiratory phase is slightly increased. There is no use of accessory muscles. She is tachypneic. Cardio regular rhythm, S1 normal heart sound, S2 normal heart sound and no murmurs Rate: tachycardic GI normal to inspection, nondistended, normoactive bowel sounds, non-tender, non-distended and no masses; Negative for hepatosplenomegaly Extremity normal to inspection General Extremety ED: Negative for edema General Extremity: Negative for edema Neuro oriented x3 and CN's II-XII intact bilaterally Sensorium / Orientation: alert Psych mental status grossly normal Skin no rashes or lesions noted, no wounds and skin turgor normal General Skin Exam: Negative for jaundice or pallor MDM MDM MDM Narrative Medical decision making narrative: Differential diagnosis would include upper respiratory viral infection, obstructive pneumonia, history and physical is not consistent with PE. There isno concern for pneumothorax. History is not consistent with cardiac disease either. Workup included chest x-ray appropriate blood work. Because she did not improve in spite of antibiotics rapid antigen for COVID, influenza and RSV was obtained. Especially since she reports that normally she does not have rhinorrhea or congestion when diagnosed with pneumonia. History & Record Review Additional record(s) reviewed:: Prior outpatient record (Pulmonary office visit authored by Ce Morin was reviewed. Office visit was November 01, 2024. 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 The soft tissue mass was located in the right upper lobe and was 2.6 cm. There was ext), Prior ED visit (Patient was seen November 06, 2024 for respiratory symptoms/bronchiectasis.) and Prior labs Lab Data Attestation: I reviewed the patient's lab results. Lab results narrative: White count is elevated. There is no shift. Patient has not been on any prednisone or steroid in the last 3 to 6 months. Labs: Laboratory Results - last 24 hr 12/08/24 12/08/24 06:57 07:24 WBC 17.8 H RBC 4.90 Hgb 13.4 Hct 39.6 MCV 80.8 L MCH 27.3 MCHC 33.8 RDW Std Deviation 45.0 H RDW Coeff of Mendy 15.3 H Plt Count 435 MPV 9.6 Immature Gran % (Auto) 0.500 Neut % (Auto) 69.1 Lymph % (Auto) 21.5 Cooke % (Auto) 7.8 Eos % (Auto) 0.7 Baso % (Auto) 0.4 Absolute Neuts (auto) 12.3 H Absolute Lymphs (auto) 3.83 Nucleated RBC % 0 Sodium 140 Potassium 4.2 Chloride 102 Carbon Dioxide 25.5 Anion Gap 12 BUN 9 Creatinine 0.65 L Estim Creat Clear Calc 95.86 Est GFR (MDRD) Non-Af 107 BUN/Creatinine Ratio 14.0 Glucose 113 H Lactic Acid 1.3 Calcium 9.3 Total Bilirubin 0.29 AST 30 ALT 29 Alkaline Phosphatase 145 H Total Protein 7.2 Albumin 4.3 Globulin 2.9 Albumin/Globulin Ratio 1.5 Radiography Chest X-Ray - ED: 2 View, Read by ED Physician (There is atelectasis right upperlobe and fullness right upper lobe near the mediastinum. This is essentially unchanged from prior x-ray and area that was noted on recent CTA. There is no abnormality on the right lower lobe. Clinically she has pneumonia in the right lower lobe.), Unchanged, Heart, Bony Structures and Chronic Changes Diagnostic Testing: Clinical Impression(s) from Imaging Studies Chest X-Ray 12/08/24 07:10 IMPRESSION: COPD type changes. No change since prior examination. No new infiltrate or consolidation is seen. Reading Location: [id number] Treatment and Re-Evaluation :: Patient was reexamined at 0845. She is moving much more air. There is increased rales and rhonchi right lower lobe. There is egophony increased vocalfremitus. Since she is tachycardic slightly tachypneic and clinically she has apneumonia even though chest x-ray shows no abnormality will change antibiotic todoxycycline and place on burst of prednisone. The rapid antigen for COVID, influenza and RSV were negative. She does have an appointment with her doctor at [facility] tomorrow, Dr. Vazquez she was instructed to discontinue the azithromycin. Discharge Plan Triage Chief Complaint: Chest Other ED Provider: Mike Mai Dx/Rx/DC Orders Clinical Impression: Pneumonia, Acute bronchospasm, Sinus tachycardia seen on cardiac catheterization technician, Immune deficiency disorder, Elevated blood-pressure reading without diagnosis ofhypertension Instructions: ED Pneumonia (Adult) Prescriptions: New prednisone 20 mg tablet 60 mg PO DAILY Qty: 15 0RF doxycycline monohydrate 100 mg capsule 100 mg PO BID Qty: 14 0RF No Action (DME) PEP device See Rx Instructions .ROUTE .MEDSUPPLY Qty: 1 0RF Rx Instructions: with training Hizentra 4 gram/20 mL (20 %) syringe 8 mg subcut QWEEK (DME) nebulizer kits See Rx Instructions .ROUTE .MEDSUPPLY Qty: 1 11RF Rx Instructions: As directed cefdinir 300 mg capsule 300 mg PO BID Qty: 14 0RF azithromycin 250 mg tablet 250 mg PO DAILY Qty: 4 0RF levalbuterol HCl 0.63 mg/3 mL solution for nebulization 0.63 mg inhalation Q12H Qty: 90 3RF Primary Care Provider: Yarelis Fitzpatrick Referrals: Yarelis Fitzpatrick, [Primary Care Provider] - 1 Week if not improving Activity Restrictions/Additional Instructions: 1. Discontinue the azithromycin 2. Start the doxycycline once you fill the prescription 3. Take prednisone until gone 4. 2 puffs of your inhaler every 2-4 hours while awake for the next 3 days. Print Language: Albanian Disposition Disposition: Home, Self Care What to do if you have Problems For any increased pain, shortness of breath, bleeding, nausea or vomiting, chestpain, or any unexpected problems, contact your Primary Care Provider. Call [facility] ([phone]) or report to the closest Emergency Room. Call 911 if necessary. 12/08/24 0854 <Electronically signed by Mike Mai MD> Cosigner Signature (if applicable): CC: Dr. Yarelis Fitzpatrick DO ~ Signed [facility] Work Phone: Evaluation note* Diagnosis Lower resp. tract infection- Primary Other diseases of respiratory system, not elsewhere classified Conjunctivitis of both eyes, unspecified conjunctivitis type [facility] assessment information [facility] Work Phone: Evaluation note* Diagnosis Sinobronchitis- Primary Unspecified sinusitis (chronic) Bacterial conjunctivitis Other conjunctivitis History of asthma Personal history of other diseases of respiratory system [facility] Diagnosis Onset Date Resolution Status Bronchiectasis acute Immunoglobulin deficiency ac noel [facility] Work Phone: Evaluation note* Diagnosis Recurrent infections Unspecified infectious and parasitic diseases Low serum IgG for age [facility] Diagnosis Onset Date Resolution Status Bronchiectasis chronic Immunoglobulin deficiency [facility] Work Phone: Evaluation note* Diagnosis Cough [facility] Diagnosis Common variable immunodeficiency Low serum IgG for age Recurrent infections Unspecified infectious and parasitic diseases [facility] Name Dates Details How to Access Health Informa tion Online using Patient Portal and [employer] Apps Indication:Nonsmoker Start:22-Jan-2021 Instruction Type:Patient Education Patient Instructions Indication:Nonsmoker Start:22-Jan-2021 Instruction Type:Provider Instructions for Treatment Patient Instructions Indication:Nonsmoker Start:12-Oct-2020 Instruction Type:Provider Instructions for Treatment How to Access Health Informa tion Online using Patient Portal and [employer] Apps Indication:Nonsmoker Start:12-Oct-2020 Instruction Type:Patient Education Patient Instructions Indication:BMI 21.0-21.9, adult Start:14-Sep-2020 Instruction Type:Provider Instructions for Treatment How to Access Health Informa tion Online using Patient Portal and [employer] Apps Indication:BMI 21.0-21.9, adult Start:14-Sep-2020 Instruction Type:Patient [...] Informa tion Online using Patient Portal and [employer] Apps Indication:Nonsmoker Start:02-Jul-2021 Instruction Type:Patient Education Patient Instructions Indication:Nonsmoker Start:09-Feb-2021 Instruction Type:Provider Instructions for Treatment How to Access Health Informa tion Online using Patient Portal and [employer] Apps Indication:Nonsmoker Start:09-Feb-2021 Instruction Type:Patient Education How to Access Health Informa tion Online using Patient Portal and [employer] Apps Indication:Nonsmoker Start:22-Jan-2021 Instruction Type:Patient Education Patient Instructions Indication:Nonsmoker Start:22-Jan-2021 Instruction Type:Provider Instructions for Treatment Patient Instructions Indication:Nonsmoker Start:12-Oct-2020 Instruction Type:Provider Instructions for Treatment How to Access Health Informa tion Online using Patient Portal and [employer] Apps Indication:Nonsmoker Start:12-Oct-2020 Instruction Type:Patient [...] Informa tion Online using Patient Portal and [employer] Apps Indication:Nonsmoker Start:02-Jul-2021 Instruction Type:Patient Education Patient Instructions Indication:Nonsmoker Start:09-Feb-2021 Instruction Type:Provider Instructions for Treatment How to Access Health Informa tion Online using Patient Portal and [employer] Apps Indication:Nonsmoker Start:09-Feb-2021 Instruction Type:Patient Education How to Access Health Informa tion Online using Patient Portal and [employer] Apps Indication:Nonsmoker Start:22-Jan-2021 Instruction Type:Patient [...] Informa tion Online using Patient Portal and [employer] Apps Indication:Nonsmoker Start:22-Jan-2021 Instruction Type:Patient Education Patient Instructions Indication:Nonsmoker Start:22-Jan-2021 Instruction Type:Provider Instructions for Treatment Patient Instructions Indication:Nonsmoker Start:12-Oct-2020 Instruction Type:Provider Instructions for Treatment How to Access Health Informa tion Online using Patient Portal and [employer] Apps Indication:Nonsmoker Start:12-Oct-2020 Instruction Type:Patient [...] Informa tion Online using Patient Portal and [employer] Apps Indication:BMI 23.0-23.9, adult Start:10-Jun-2022 [...] Informa tion Online using Patient Portal and [employer] Apps Indication:Nonsmoker Start:15-Oct-2021 Instruction Type:Patient [...] Informa tion Online using Patient Portal and [employer] Apps Indication:Nonsmoker Start:12-Oct-2020 Instruction Type:Patient Education Patient Instructions Indication:BMI 21.0-21.9, adult Start:14-Sep-2020 Instruction Type:Provider Instructions for Treatment How to Access Health Informa tion Online using Patient Portal and [employer] Apps Indication:BMI 21.0-21.9, adult Start:14-Sep-2020 [...] Informa tion Online using Patient Portal and [employer] Apps Indication:Nonsmoker Start:12-Sep-2022 Instruction Type:Patient [...] Informa tion Online using Patient Portal and [employer] Apps Indication:Abnormal lung sounds Start:14-Oct-2022 Instruction Type:Patient Education Patient Instructions Indication:BMI 23.0-23.9, adult Start:07-Oct-2022 Instruction Type:Provider Instructions for Treatment How to Access Health Informa tion Online using Patient Portal and [employer] Apps Indication:BMI 23.0-23.9, adult Start:07-Oct-2022 Instruction Type:Patient Education Patient Instructions Indication:Nonsmoker Start:12-Sep-2022 Instruction Type:Provider Instructions for Treatment How to Access Health Informa tion Online using Patient Portal and [employer] Apps Indication:Nonsmoker Start:12-Sep-2022 Instruction Type:Patient Education Patient Instructions Indication:BMI 23.0-23.9, adult Start:10-Jun-2022 Instruction Type:Provider Instructions for Treatment How to Access Health Informa tion Online using Patient Portal and [employer] Apps Indication:BMI 23.0-23.9, adult Start:10-Jun-2022 Instruction Type:Patient Education Patient Instructions Indication:Nonsmoker Start:26-Apr-2022 Instruction Type:Provider Instructions for Treatment How to Access Health Informa tion Online using Patient Portal and [employer] Apps Indication:Nonsmoker Start:26-Apr-2022 Instruction Type:Patient [...] Informa tion Online using Patient Portal and [employer] Apps Indication:Abnormal lung sounds Start:14-Oct-2022 Instruction Type:Patient Education Patient Instructions Indication:BMI 23.0-23.9, adult Start:07-Oct-2022 Instruction Type:Provider Instructions for Treatment How to Access Health Informa tion Online using Patient Portal and [employer] Apps Indication:BMI 23.0-23.9, adult Start:07-Oct-2022 Instruction Type:Patient Education Patient Instructions Indication:Nonsmoker Start:12-Sep-2022 Instruction Type:Provider Instructions for Treatment How to Access Health Informa tion Online using Patient Portal and [employer] Apps Indication:Nonsmoker Start:12-Sep-2022 Instruction Type:Patient Education Patient [...] Informa tion Online using Patient Portal and [employer] Apps Indication:Nonsmoker Start:16-Dec-2022 Instruction Type:Patient Education Patient Instructions Indication:Abnormal lung sounds Start:14-Oct-2022 Instruction Type:Provider Instructions for Treatment How to Access Health Informa tion Online using Patient Portal and [employer] Apps Indication:Abnormal lung sounds Start:14-Oct-2022 [...] Informa tion Online using Patient Portal and [employer] Apps Indication:Nonsmoker Start:16-Dec-2022 Instruction Type:Patient Education Patient Instructions Indication:Abnormal lung sounds Start:14-Oct-2022 Instruction Type:Provider Instructions for Treatment How to Access Health Informa tion Online using Patient Portal and [employer] Apps Indication:Abnormal lung sounds Start:14-Oct-2022 [...] Informa tion Online using Patient Portal and [employer] Apps Indication:Nonsmoker Start:22-Feb-2022 Instruction Type:Patient Education Patient Instructions Indication:Nonsmoker Start:15-Oct-2021 Instruction Type:Provider Instructions for Treatment How to Access Health Informa tion Online using Patient Portal and [employer] Apps Indication:Nonsmoker Start:15-Oct-2021 Instruction Type:Patient [...] Informa tion Online using Patient Portal and [employer] Apps Indication:Recurrent infections Start:30-Dec-2022 Instruction Type:Patient Education Patient Instructions Indication:Nonsmoker Start:16-Dec-2022 Instruction Type:Provider Instructions for Treatment How to Access Health Informa tion Online using Patient Portal and [employer] Apps Indication:Nonsmoker Start:16-Dec-2022 Instruction Type:Patient Education Patient Instructions Indication:Abnormal lung sounds Start:14-Oct-2022 Instruction Type:Provider Instructions for Treatment How to Access Health Informa tion Online using Patient Portal and [employer] Apps Indication:Abnormal lung sounds Start:14-Oct-2022 Instruction Type:Patient Education Patient Instructions Indication:BMI 23.0-23.9, adult Start:07-Oct-2022 Instruction Type:Provider Instructions for Treatment How to Access Health Informa tion Online using Patient Portal and [employer] Apps Indication:BMI 23.0-23.9, adult Start:07-Oct-2022 Instruction Type:Patient Education Patient Instructions Indication:Nonsmoker Start:12-Sep-2022 Instruction Type:Provider Instructions for Treatment How to Access Health Informa tion Online using Patient [employer] and [employer] Apps Indication:Nonsmoker Start:12-Sep-2022 Instruction Type:Patient Education Patient Instructions Indication:BMI 23.0-23.9, adult Start:10-Jun-2022 Instruction Type:Provider Instructions for Treatment How to Access Health Informa tion Online using Patient Portal and [employer] Apps Indication:BMI 23.0-23.9, adult Start:10-Jun-2022 Instruction Type:Patient Education Patient Instructions Indication:Nonsmoker Start:26-Apr-2022 Instruction Type:Provider Instructions for Treatment How to Access Health Informa tion Online using Patient Portal and [employer] Apps Indication:Nonsmoker Start:26-Apr-2022 Instruction Type:Patient Education Patient [...] Informa tion Online using Patient Portal and [employer] Apps Indication:Nonsmoker Start:12-Oct-2020 Instruction Type:Patient [...] Informa tion Online using Patient Portal and [employer] Apps Indication:Recurrent infections Start:30-Dec-2022 Instruction Type:Patient Education Patient Instructions Indication:Nonsmoker Start:16-Dec-2022 Instruction Type:Provider Instructions for Treatment How to Access Health Informa tion Online using Patient Portal and [employer] Apps Indication:Nonsmoker Start:16-Dec-2022 Instruction Type:Patient Education Patient Instructions Indication:Abnormal lung sounds Start:14-Oct-2022 Instruction Type:Provider Instructions for Treatment How to Access Health Informa tion Online using Patient Portal and [employer] Apps Indication:Abnormal lung sounds Start:14-Oct-2022 Instruction Type:Patient Education Patient Instructions Indication:BMI 23.0-23.9, adult Start:07-Oct-2022 Instruction Type:Provider Instructions for Treatment How to Access Health Informa tion Online using Patient Portal and [employer] Apps Indication:BMI 23.0-23.9, adult Start:07-Oct-2022 Instruction Type:Patient Education Patient Instructions Indication:Nonsmoker Start:12-Sep-2022 Instruction Type:Provider Instructions for Treatment How to Access Health Informa tion Online using Patient Portal and [employer] Apps Indication:Nonsmoker Start:12-Sep-2022 Instruction Type:Patient Education Patient Instructions Indication:BMI 23.0-23.9, adult Start:10-Jun-2022 Instruction Type:Provider Instructions for Treatment How to Access Health Informa tion Online using Patient Portal and [employer] Apps Indication:BMI 23.0-23.9, adult Start:10-Jun-2022 Instruction Type:Patient Education Patient Instructions Indication:Nonsmoker Start:26-Apr-2022 Instruction Type:Provider Instructions for Treatment How to Access Health Informa tion Online using Patient Portal and [employer] Apps Indication:Nonsmoker Start:26-Apr-2022 Instruction Type:Patient Education Patient Instructions Indication:Nonsmoker Start:22-Feb-2022 Instruction Type:Provider Instructions for Treatment How to Access Health Informa tion Online using Patient Portal and [employer] Apps Indication:Nonsmoker Start:22-Feb-2022 Instruction Type:Patient Education Patient [...] Internal Medicine; [facility] Work Phone: reason for referral (narrative)No reason for referral information available[facility] Work Phone: Family History No Family History [...] Informa tion Online using Patient Portal and [employer] Apps Indication:BMI 21.0-21.9, adult Start:14-Sep-2020 [...] Purpose Advance Directives No Advanced Directives Records Found Advance Directive Response Recorded Date/ Time Living Will No September 12 11:11am Power of Transformation Analyst No September 12, 2020 11:11am Advance Directive Response Recorded Date/ Time Living Will No November 06, 2022 10:32pm Power of Transformation Analyst No November 06 10:32pm Advance Directive Response Recorded Date/ Time Living Will No March 13, 2023 10:04pm Power of Transformation Analyst No March 13 10:04pm Advance Directive Response Recorded Date/ Time Living Will No November 06, 2024 9:38pm Do you have a Healthcare Power of Transformation Analyst? No November 06, 2024 9:38pm Advance Directive Response Recorded Date/ Time Living Will No November 06, 2024 9:38pm Do you have a Healthcare Power of Transformation Analyst? No November 06, 2024 9:38pm Living Will No December 08, 2024 6:50am Do you have a Healthcare Power of Transformation Analyst? No December 08, 2024 6:50am Chief Complaint and Reason for Visit Chief Complaint SCREENING Chief Complaint ABD PAIN Chief Complaint ABD PAIN XRAY Cough Abnormal CT scan Reason for Visit Bronchiectasis Immunoglobulin deficiency Chief Complaint BRONCHIECTASIS BRONCHIECTASIS Chief Complaint BRONCHIECTASIS BRONCHIECTASIS Follow up CHEST PT *PEP DEVICE INSTRUCTION*(NOT ABG) Reason for Visit Bronchiectasis Immunoglobulin deficiency Chief Complaint Admit Date XRAY August 27, 2024 11 :18am STAT, hilar mass, pleural effusion, cxr 08/27 elev. August 28, 2024 11:01am Increasing right hilar mass August 8:47am LUNG September 03, 2024 8 :37am E-ORDER September 27, 2024 8 :43am RUL MASS W/ADENOPATHY October 15 5:43pm Reason for Visit Admit Date Mass of upper lobe of right lung August 30, 2024 8:47am Bronchiectasis August 30, 2024 8 :47am Immunoglobulin deficiency August 30, 2024 8:47am Chief Complaint Admit Date XRAY August 27, 2024 11 :18am STAT, hilar mass, pleural effusion, cxr 08/27 elev. August 28, 2024 11:01am Increasing right hilar mass August 8:47am LUNG September 03, 2024 8 :37am E-ORDER September 27, 2024 8 :43am RUL MASS W/ADENOPATHY October 15 5:43pm 2 WK FU November 01, 2024 10: 52am general illness November 06, 2024 9:1 7pm Reason for Visit Admit Date Bronchiectasis August 30, 2024 8 :47am Immunoglobulin deficiency August 30, 2024 8:47am Mass of upper lobe of right lung August 30, 2024 8:47am Bronchiectasis November 01, 2024 10: 52am Immunoglobulin deficiency November 01 10:52am Mass of upper lobe of right lung October 192024 10:52am Chief Complaint Admit Date XRAY August 27, 2024 11 :18am STAT, hilar mass, pleural effusion, cxr 08/27 elev. August 28, 2024 11:01am Increasing right hilar mass August 8:47am LUNG September 03, 2024 8 :37am E-ORDER September 27, 2024 8 :43am RUL MASS W/ADENOPATHY October 15 5:43pm 2 WK FU November 01, 2024 10: 52am general illness November 06, 2024 9:1 7pm E ORDER/COPY RESULTS TO PCP November 25 025 6:42am Chief Complaint Admit Date XRAY August 27, 2024 11 :18am STAT, hilar mass, pleural effusion, cxr 08/27 elev. August 28, 2024 11:01am Increasing right hilar mass August 8:47am LUNG September 03, 2024 8 :37am E-ORDER September 27, 2024 8 :43am RUL MASS W/ADENOPATHY October 15 5:43pm 2 WK FU November 01, 2024 10: 52am general illness November 06, 2024 9:1 7pm E ORDER/COPY RESULTS TO PCP November 25 6:42am chest pain December 08, 2024 6:4 9am Chief Complaint Admit Date E-ORDER September 27, 2024 8 :43am RUL MASS W/ADENOPATHY October 15 5:43pm 2 WK FU November 01, 2024 10: 52am general illness November 06, 2024 9:1 7pm E ORDER/COPY RESULTS TO PCP November 25 025 6:42am chest pain December 08, 2024 6:4 9am Cough January 11, 2025 8:33a m Reason for Visit Admit Date Bronchiectasis November 01, 2024 10: 52am Immunoglobulin deficiency November 01 10:52am Mass of upper lobe of right lung October 192024 10:52am Additional Source Comments INFORMATION SOURCE (unrecogn ized section and content) DATE CREATED AUTHOR 01/23/2022 [facility] DATE CREATED AUTHOR AUTHOR'S ORGANIZ ATION 01/01/2023 [facility] DATE CREATED AUTHOR AUTHOR'S ORGANIZ ATION 12/09/2024 [facility] DATE CREATED AUTHOR AUTHOR'S ORGANIZ ATION 01/17/2025 [facility] Source Comments (unrecognize d section and content) In the event this informatio n is protected by the Federal Confidentiality of Alcohol and Drug Abuse Patient Records regulations: The Federal rules restrict any use of the information to criminally investigate or prosecute any alcohol or drug abuse patient.[facility] the event this information is protected by the Federal Confidentiality of Alcohol and Drug Abuse Patient Records regulations: The Federal rules restrict any use of the information to criminally investigate or prosecute any alcohol or drug abuse patient.[facility] the event this information is protected by the Federal Confidentiality of Alcohol and Drug Abuse Patient Records regulations: The Federal rules restrict any use of the information to criminally investigate or prosecute any alcohol or drug abuse patient.[facility] the event this information is protected by the Federal Confidentiality of Alcohol and Drug Abuse Patient Records regulations: The Federal rules restrict any use of the information to criminally investigate or prosecute any alcohol or drug abuse patient.[facility] Reason for Visit (unrecogniz ed section and content) Reason Comments Cough cough, ST, and irrit ated eyes x 1.5 weeks Reason Comments Chest Congestion Cough, ST x7 daysCon junctivitis bilateral x7 days Reason Comments Information Care Teams (unrecognized sec tion and content) 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 Yarelis Fitzpatrick , DO Primary Care Provider Active Team Status: Inactive Member Role Status Dates Dr. Yarelis Fitzpatrick DO Primary Care Provider Active Dr. Adelfo Solis , DO Emergency Provider Active Team Status: Inactive Member Role Status Dates Dr. Yarelis Fitzpatrick DO Primary Care Provider Active Dr. Balta Whipple MD Attending Provider Active Team Status: Inactive Member Role Status Dates Dr. Yarelis Fitzpatrick , DO Primary Care Provider, Referr ing Provider Active Dr. Rakesh Meeks , DO Attending Provider Active Team Status: Inactive Member Role Status Dates Dr. Yarelis Fitzpatrick , DO Primary Care Provider Active Dr. Adelfo Solis , DO Attending Provider, Emergency Provider Active Team Status: Inactive Member Role Status Dates Dr. Yarelis Fitzpatrick DO Primary Care Provider Active Dr. Heydi Meier , DO Attending Provider, Referring Prov ider Active Team Status: Inactive Member Role Status Dates Dr. Yarelis Fitzpatrick DO Primary Care Provider Active Dr. 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 Yarelis Fitzpatrick DO Primary Care Provider Active Dr. Rakesh Meeks , DO Referring Provider, Other Provide r Active Dr. Adrien Millard MD Attending Provider Active Team Status: Inactive Member Role Status Dates Dr. Yarelis Fitzpatrick DO Primary Care Provider, Referr ing Provider Active Yesenia Hahn POLICY SERVICES REPRESENTATIVE, POLICY SERVICES REPRESENTATIVE-C Attending Provider Active Team Status: Inactive Member Role Status Dates Dr. Yarelis Fitzpatrick DO Primary Care Provider Active Yesenia Hahn POLICY SERVICES REPRESENTATIVE, POLICY SERVICES REPRESENTATIVE-C Attending Provider, Referrin g Provider Active Stabilizing Machine Operator Relationship Specialty Start Date End Date Yarelis Fitzpatrick DO PCP - General Internal Medicine 04/29/13 Stabilizing Machine Operator Relationship Specialty Start Date End Date No Primary Care, [place] [address] PCP - General Pediatrics 02/09/23 Stabilizing Machine Operator Relationship Specialty Start Date End Date Yarelis Fitzpatrick DO PCP - General Internal Medicine 04/29/13 Team Status: Active Member Role Status Dates Dr. Yarelis Fitzpatrick DO Primary Care Provider Active Team Status: Inactive Member Role Status Dates Dr. Yarelis Fitzpatrick DO Primary Care Provider Active Start: August 27, 2024 End: August 27, 2024 Dr. Balta Whipple MD Attending Provider Active S tart: August 27, 2024 End: August 27, 2024 Team Status: Inactive Member Role Status Dates Dr. Yarelis Fitzpatrick DO Primary Care Provider Active Start: August 27, 2024 End: August 27, 2024 DARRYN Somers Attending Provider Active Start: August 27, 2024 End: August 27, 2024 DARRYN Somers Referring Provider Active Start: August 27, 2024 End: August 27, 2024 Team Status: Inactive Member Role Status Dates Dr. Yarelis Fitzpatrick DO Primary Care Provider Active Start: August 28, 2024 End: August 28, 2024 MARII SomersC Attending Provider Active Start: August 28, 2024 End: August 28, 2024 MARII SomersC Referring Provider Active Start: August 28, 2024 End: August 28, 2024 Team Status: Inactive Member Role Status Dates Dr. Yarelis Fitzpatrick DO Primary Care Provider Active Start: August 30, 2024 End: August 30, 2024 Dr. Yarelis Fitzpatrick DO Referring Provider Active Start: August 30, 2024 End: August 30, 2024 Patience Del Real NP-C Attending Provider Active Start: August 30, 2024 End: August 30, 2024 Team Status: Inactive Member Role Status Dates Dr. Yarelis Fitzpatrick DO Primary Care Provider Active Start: September 03, 2024 End: September 03, 2024 Patience Del Real NP-C Attending Provider Active Start: September 03, 2024 End: September 03, 2024 Patience Del Real NP-C Referring Provider Active Start: September 03, 2024 End: September 03, 2024 Team Status: Inactive Member Role Status Dates Dr. Yarelis Fitzpatrick DO Primary Care Provider Active Start: September 04, 2024 End: September 04, 2024 Dr. Yarelis Fitzpatrick DO Attending Provider Active Start: September 04, 2024 End: September 04, 2024 Patience Del Real NP-C Referring Provider Active Start: September 04, 2024 End: September 04, 2024 MARII SomersC Other Provider Active Star t: September 04, 2024 End: September 04, 2024 Team Status: Inactive Member Role Status Dates Dr. Yarelis Fitzpatrick DO Primary Care Provider Active Start: September 27, 2024 End: September 27, 2024 Patience Del Real NP-C Attending Provider Active Start: September 27, 2024 End: September 27, 2024 Patience Del Real NP-C Referring Provider Active Start: September 27, 2024 End: September 27, 2024 Team Status: Inactive Member Role Status Dates Dr. Yarelis Fitzpatrick DO Primary Care Provider Active Start: October 15, 2024 End: October 15, 2024 DARRYN Escobar Attending Provider Active Start: October 15, 2024 End: October 15, 2024 DARRYN Escobar Referring Provider Active Start: October 15, 2024 End: October 15, 2024 Team Status: Inactive Member Role Status Dates Dr. Yarelis Fitzpatrick DO Referring Provider Active Start: November 01, 2024 End: November 01, 2024 DARRYN Escobar Attending Provider Active Start: November 01, 2024 End: November 01, 2024 Team Status: Inactive Member Role Status Dates Dr. Yordan Vanegas DO Referring Provider Active Start: November 06, 2024 End: November 06, 2024 Dr. Yordan Vanegas DO Emergency Provider Active Start: November 06, 2024 End: November 06, 2024 Dr. Yarelis Fitzpatrick DO Primary Care Provider Active Start: November 06, 2024 End: November 06, 2024 Team Status: Inactive Member Role Status Dates Dr. Yordan Vanegas DO Attending Provider Active Start: November 06, 2024 End: November 06, 2024 Dr. Yordan Vanegas DO Referring Provider Active Start: November 06, 2024 End: November 06, 2024 Dr. Yordan Vanegas DO Emergency Provider Active Start: November 06, 2024 End: November 06, 2024 Dr. Yarelis Fitzpatrick DO Primary Care Provider Active Start: November 06, 2024 End: November 06, 2024 Team Status: Inactive Member Role Status Dates Dr. Yarelis Fitzpatrick DO Primary Care Provider Active Start: November 25, 2024 End: November 25, 2024 Dr. Yordan Vanegas DO Attending Provider Active Start: November 25, 2024 End: November 25, 2024 Dr. Yordan Vanegas DO Referring Provider Active Start: November 25, 2024 End: November 25, 2024 Team Status: Inactive Member Role Status Dates Dr. Yarelis Fitzpatrick DO Primary Care Provider Active Start: December 08, 2024 End: December 08, 2024 Dr. Mike Mai MD Emergency Provider Active Sta rt: December 08, 2024 End: December 08, 2024 Team Status: Inactive Member Role Status Dates Dr. Yarelis Fitzpatrick DO Primary Care Provider Active Start: December 08, 2024 End: December 08, 2024 Dr. Mike Mai MD Attending Provider Active Sta rt: December 08, 2024 End: December 08, 2024 Dr. Mike Mai MD Emergency Provider Active Sta rt: December 08, 2024 End: December 08, 2024 Team Status: Inactive Member Role Status Dates Dr. Yarelis Fitzpatrick DO Primary Care Provider Active Start: December 21, 2024 End: December 21, 2024 NATASHA ASENCIO Attending Provider Active Start: Gopi shahida 2024 End: December 21, 2024 NATASHA ASENCIO Referring Provider Active Start: Gopi pinedo 2024 End: December 21, 2024 Team Status: Inactive Member Role Status Dates Dr. Yarelis Fitzpatrick DO Primary Care Provider Active Start: January 11, 2025 End: January 11, 2025 DARRYN Escobar Attending Provider Active Start: January 11, 2025 End: January 11, 2025 DARRYN Escobar Referring Provider Active Start: January 11, 2025 End: January 11, 2025 Dr. Rajat Tarango MD Other Provider Active Start: January 11, 2025 End: January 11, 2025 Goals (unrecognized section and content) Goals may be documented in a n alternate sectionGoals may be documented in an alternate sectionGoals may be documented in an alternate sectionGoals may be documented in an alternate sectionGoals may be documented in an alternate sectionGoals may be documented in an alternate sectionGoals may be documented in an alternate sectionGoals may be documented in an alternate sectionGoals may be documented in an alternate sectionGoals may be documented in an alternate sectionGoals may be documented in an alternate sectionGoals may be documented in an alternate section FOR RECORDS PERTAINING TO PATIENTS WHO ARE [...] BE BASED ON THE PRIMARY CLINICAL RECORDS. [facility] [employer] [facility]. provides no warranty or guarantee of the accuracy or completeness of information in this document.
== END | disposition home or self-care (01) ==
LOC: LABSPEC 07:03
PROVIDERS: PCP Internal Medicine; Referring Provider Internal Medicine Pulmonary Disease; Visit Provider Internal Medicine Pulmonary Disease
DX: J18.9 Pneumonia, unspecified organism (principal); J47.9 Bronchiectasis, uncomplicated
CPT/HCPCS: 87070; 87205

== ENCOUNTER → 2025-03-04 | Outpatient (CLI) | payer OTHER, SELFPAY ==
--- OUTSIDE RECORDS SUMMARY | 2025-03-04 07:19 | XMS RPT_ITS | CCD ---
Author Organization [facility] ion [facility] Care Team Providers Care Count Team Clerk Name Role Phone Yarelis Fitzpatrick Unavailable Chris Villeda Unavailable Eliseo Corral Unavailable [phone] Gravenedelia, Haydee Unavailable Unavailable Lissett Tolbert Unavailable Unavailable Slarb, Kiesha Unavailable Unavailable Unavailable Unavailable Ciesa, Lu Unavailable Erasmo Huynh Unavailable Unavailable Blanca Morrow Unavailable Unavailable Yarelis Fitzpatrick DO Unavailable Dr. Eliseo Corral Unavailable [phone] Erasmo Huynh LPN Unavailable Unavailable Lissett Tolbert RN Unavailable Unavailable Blanca Morrow LPN Unavailable Unavailable Ciesa PARTS CHASER, Lu Unavailable Slarb LOCK AND DAM OPERATOR, Kiesha Unavailable Unavailable Unavailable Unavailable Edu MCGEE, Haydee Unavailable Unavailable Yarelis Fitzpatrick DO Primary Care Provider Yarelis Fitzpatrick DO Unavailable Yaa Calderon MA Unavailable Unavailable Pam Escamilla MD Unavailable Sylvia LOCK AND DAM OPERATOR, Ingrid Unavailable Unavailable Odessapapito MCGEE, Kayela Unavailable Unavailable Xochilt MCGEE Lyubov [...] Unavailable Patience Matute MA Unavailable Unavailable No pvc loader, Md Primary Care Provider Domitila vailable Dr. Yarelis Fitzpatrick Primary Care Provider Dr. Rakesh Meeks Referring Provider Dr. Rakesh Meeks Other Provider Dr. Adrien Millard Attending Provider Dr. Yarelis Fitzpatrick Referring Provider [place] HEALTH NURSE, HEALTH NURSE-C Yesenia Attending Provider [phone] Yarelis Fitzpatrick DO Primary Care Provider No pvc loader, Md Primary Care Provider Domitila vailable Dr. Yarelis Fitzpatrick DO Primary Care Provider Dr. Balta Whipple MD Attending Provider Kavon HEALTH NURSE-CKimberly Attending Provider Kavon SNEED-CKimberly Referring Provider Dr. aYrelis Fitzpatrick DO Referring Provider Patience Hopkins Attending Provider Nasima SNEED-CPatience Referring Provider Dr. Yarelis Fitzpatrick DO Attending Provider Kavon HEALTH NURSE-CKimberly Other Provider Dr. Yordan Vanegas DO Referring Provider Dr. Yordan Vanegas DO Emergency Provider Dr. Yordan Vanegas DO Attending Provider Dr. Mike Mai MD Emergency Provider DYLON VAZQUEZ Referring Unavailable DYLON VAZQUEZ Attending Unavailable NO PRIMARY CARE, Primary Care Unavailable DYLON VAZQUEZ Attending Unavailable NO PRIMARY CAREMD Primary Care Unavailable REFERRED, SELF Referring Unavailable DYLON VAZQUEZ Referring Unavailable DYLON VAZQUEZ Attending Unavailable NO PRIMARY CARE, Primary Care Unavailable DOC, MISC Primary Care Unavailable DYLON VAZQUEZ Attending Unavailable REFERRED, SELF Referring Unavailable Sergei SIERRA, Dr. Mckeon Attending Provider [phone] LUIS M VAZQUEZ Attending Provider LUIS M VAZQUEZ Referring Provider Dr. Yarelis Fitzpatrick DO Primary Care Provider Nasima HEALTH NURSE-CPatience Attending Provider Nasima HEALTH NURSE-CPatience Referring Provider Dr. Yarelis Fitzpatrick DO Referring Provider Dr. aRjat Tarango MD, V Other Provider [phone] Dr. Yarelis Fitzpatrick DO Primary Care Provider Nasima HEALTH NURSE-CPatience Attending Provider Nasima HEALTH NURSE-CPatience Referring Provider Dr. Rajat Tarango MD, V Attending Provider [phone] Dr. Rajat Tarango MD, V Referring Provider Yarelis Fitzpatrick Primary Care Unavailable Rajat Tarango V Referring Unavailable Rajat Tarango V Attending Unavailable Amari, Yarelis Primary Care Unavailable Patience Del Real Attending Unavailable Amari, Yarelis Primary Care Unavailable RunataliyaerPatience M Referring Unavailable RufenerPatience Attending Unavailable Amari, Yarelis Primary Care Unavailable Kavon, Kimberly Referring Unavailable Kavon, Kimberly Attending Unavailable Kavon, Kimberly Consulting Unavailable PettyerPatience M Referring Unavailable Amari, Yarelis Primary Care Unavailable Amari, Yarelis Attending Unavailable Amari, Yarelis Primary Care Unavailable Patience Del Real M Referring Unavailable RufenerPatience Attending Unavailable Amari, Yarelis Primary Care Unavailable Yordan Vanegas Referring Unavailable Yordan Vanegas Attending Unavailable Amari, Yarelis Referring Unavailable RunataliyaerPatience Attending Unavailable [facility] Primary Care Unavailable Balta Whipple Attending Unavailable Amari, [place] Primary [facility] Unavailable Patience Del Real Referring Unavailable Patience Del Real Attending Unavailable Amari, [place] Primary Care Unavailable Yordan Vanegas Referring Unavailable Yordan Vanegas Attending Unavailable MaiMagyo Attending Unavailable Amari, Yarelis Primary Care Unavailable Amari, [place] Primary Care Unavailable Kimberly Jacobson Referring Unavailable Kimberly Jacobson Attending Unavailable Amari, [place] Primary Care Unavailable Amari, Yarelis Referring Unavailable Patience Del Real Attending Unavailable Amari, [facility] Care Unavailable Sibilia, Rajat V Referring Unavailable Sibilia Rajat V Attending Unavailable [facility] Unavailable CHITRA, ERI1 Referring Unavailable CHITRA ERI1 Attending Unavailable Sibilia, Raajt V Consulting Unavailable Amari, [facility] Unavailable Patience Del Real Referring Unavailable Patience Del Real Attending Unavailable Medications Current Medications Medication Drug Class(es) [...] times daily 30 mL 11 02/09/2023 Active cefuroxime 500 mg oral tablet (2 sources) Cephalosporin Antibacterial Start: 01-14-2025 End: 01-14-2025 take 1 tablet by mouth every twelve hours Cefuroxime Axetil 500 mg tablet Active 500 mg PO Q12H January 14, 2025 4:05pm cetirizine hydrochloride 10 mg oral tablet (6 [...] yes four times daily for 7 days. 20 ml immunoglobulin g, human 200 mg/ml prefilled syringe (11 sources) Human Immunoglobulin G Start: 08-30-19 Immun Glob G(Igg)-Pro-Iga 0-50 (Hizentra) 4 gram/20 [...] skin once a week 160 mL 11 09/04/2023 Active Start: 02-10-2023 Immune Globuli n, Human, (HIZENTRA) 4 GM/20ML SOSY Inject 40 mL (8 g) into the skin once a week 160 mL 11 02/10/2023 Active methylPREDNISolone 4 mg oral tablet (1 source) Corticosteroid Start: 12-18-2023 take 1 tablet by mouth once daily methylPREDNISolone (MEDROL, CARLOS,) 4 MG Dose-Carlos (21 EACH) Take 1 Tablet (4 mg) by mouth daily Follow printed directions on package. 21 Each 12/18/2023 Active nebulizer kits (7 sources) Start: 08-30-2024 nebulizer kits Active 0 .ROUTE .MEDSUPPLY August 30, 2024 1:00am As directed PEP device (8 sources) Start: 08-15-2023 PEP device Active 0 .ROUTE .MEDSUPPLY August 15, 2023 1:00am with training Start: 08-15-2023 PEP device Act titus 0 .ROUTE .MEDSUPPLY August 15, 2023 12:00am with training polymyxin b [id number] unt/ml / trimethoprim 1 mg/ml ophthalmic solution [...] stop with food Take 2 tablets by mo ut once daily for 5 days. 40mg PO [...] Refills: 0 Ordered: 30-Apr-2010 MANUEL Voss LPN Comments: given by dentist Comment on above: given by dentist acetaminophen 325 mg / oxyCODONE hydrochloride 5 mg oral tablet (11 sources) Opioid Agonist Start: 3 End: 3 Oxycodone-Acetaminop hen (Percocet) 5-325 mg tablet Discontinued 1 {tbl} PO EVERY 6 HOURS as needed for pain 12 November 07, 2022 January 24, 2023 6:47am [id number] 200 actuat albuterol 0.09 mg/actuat metered dose inhaler (20 sources) beta2-Adrenergic Agonist Start: 3 take 1 puff(s) by inhalation every six [...] Escamilla MD Start : 30-Jun-2022 Active Comments: kayleeespinoza vizcaino box Start: 2022 take 1 mL by inhalat ion every four hours as needed Albuterol Sulfate 1.25 MG/3ML Inhalation Nebulization Solution 1 (one) Milliliter q4 hr prn for 0 days Quantity: 1 {Unspecified} Refills: 0 Ordered: 10-Jun-2022 Yarelis Fitzpatrick DO, DO, Kathleen Start : 10-Jun-2022 Active Comments: kayleeespinoza vizcaino box Start: 03-17-2022 End: 08-30-2024 Albuterol Sulfate [...] Start : 30-Nov-2007 End : 27-Aug-2008 Inactive azithromycin 250 mg oral tablet (20 sources) Macrolide Antimicrobial Start: 11-06-2024 End: 01-14-2025 take 1 tablet by mouth once daily Azithromycin 250 mg tablet Discontinued 250 mg PO DAILY November 06, 2024 12:00am January 14, 2025 4:05pm Start: 2024 End: 06-15-2024 take 2 tablets [...] Quantity: 1 {Packet} Refills: 0 Ordered: 07-Oct-2022 Lyubov Lemon CMA Start : 29-Sep-2022 End : 07-Oct-2022 Inactive [...] Quantity: 1 {Package} Refills: 0 Ordered: 22-Jan-2021 Edu MCGEEHaydee Start : 12-Oct-2020 End : 22-Jan-2021 Inactive benzonatate 200 mg oral capsule (20 sources) Non-narcotic Antitussive Start: 10-15-2021 End: 04-26-2022 take 1 capsule by mouth three times daily Benzonatate 200 MG Oral Capsule 1 (one) Capsule tid for 0 days Quantity: 30 {Capsule} Refills: 0 Ordered: 26-Apr-2022 Slaskye RESTREPOKiesha Start : 15-Oct-2021 End : 26-Apr-2022 Inactive [...] Quantity: 1 {Unspecified} Refills: 0 Ordered: 22-Jul-2022 Amari ROBLEDO Yarelis Fitzpatrick DO Yarelis Start : 22-Jul-2022 Active Comments: substitute generic dispense one box Start: 07-05-2022 take 1 mL by inhalat ion twice daily Pulmicort 0.5 MG/2ML Inhalation Suspension 1 (one) Milliliter bid for 0 days Quantity: 1 {Unspecified} Refills: 0 Ordered: 05-Jul-2022 Amari ROBLEDO Yarelis Amari DO, Yarelis Start : 05-Jul-2022 Active Comments: substitute generic dispense one box Start: 2022 take 1 mL by inhalat ion twice daily Pulmicort 0.5 MG/2ML Inhalation Suspension 1 (one) Milliliter bid for 0 days Quantity: 1 {Unspecified} Refills: 0 Ordered: 10-Jun-2022 Amari ROBLEDO Yarelis Amari DO, Yarelis Start : 10-Jun-2022 Active Comments: substitute generic dispense one box Comment on above: substitute generic d ispense one box cefdinir 300 mg oral capsule (6 sources) Cephalosporin Antibacterial Start: 11-07-19 End: 01-15-20 take 1 capsule by mouth twice daily Cefdinir 300 mg capsule Discontinued 300 mg PO TWICE A DAY November 06, 2024 12:00am January 14, 2025 3:26pm 24 hr clarithromycin 500 mg extended release oral tablet (20 sources) Macrolide Antimicrobial Start: 12-02-19 10 End: 12-16-19 10 take 2 tablets by mouth once daily BIAXIN XL PAC, 500MG (Oral Tablet Extended Release 24 Hour) 2 (two) Tablet ER 24HR daily for 14 days Quantity: 28 {Tablet_ER_24HR} Refills: 0 Ordered: 30-Apr-2010 Katia Desai Start : 01-Dec-2009 End : 15-Dec-2009 Inactive [...] Quantity: 6 {Ounce(s)} Refills: 0 Ordered: 30-Apr-2010 MANUEL Voss LPN Start : 02-Oct-2009 Inactive doxycycline monohydrate 100 mg oral capsule (20 sources) Tetracycline-cl ass Drug Start: 12-08-2024 End: 01-14-2025 take 1 capsule by mouth twice daily Doxycycline Monohydrate 100 mg capsule Discontinued 100 mg PO TWICE A DAY December 08, 2024 12:00am January 14, 2025 4:05pm Start: 11-06-2022 End: 11-13-2022 take 1 tablet [...] deidre th twice daily for 7 days. famotidine 20 mg oral tablet (20 sources) Histamine-2 Receptor Antagonist Start: 09-12-2020 End: 07-02-2021 take 1 tablet by mouth twice daily Pepcid 20 MG Oral Tablet 1 Tablet bid for 0 days Quantity: 120 {Tablet} Refills: 2 Ordered: 02-Jul-2021 Yaa Calderon MA Start : 19-Oct-2020 End : 02-Jul-2021 Inactive Start: 07-13-2020 take 2 tablets by mo uth twice daily Pepcid 20 MG Oral Tablet 2 (two) Tablet bid for 0 days Quantity: 120 {Tablet} Refills: 2 Ordered: 13-Jul-2020 Yarelis Fitzpatrick DO, DO, Kathleen Start : 13-Jul-2020 Active Comments: new dose due to not making 40mg tabs anymore Start: 04-20-2020 take 2 tablets by mo uth twice daily Pepcid 20 MG Oral Tablet [...] Quantity: 120 {Tablet} Refills: 2 Ordered: 12-Mar-2020 Amari ROBLEDO, Yarelis Feliciano DO Start : 12-Mar-2020 Active Comments: new dose due to not making 40mg tabs anymore Start: 01-10-2020 take 1 tablet by deidre twice daily Pepcid 40 MG Oral Tablet 1 (one) Tablet bid for 0 days Quantity: 60 {Tablet} Refills: 2 Ordered: 10-Jan-2020 Amari ROBLEDO, Yarelis Feliciano DO Start : 10-Jan-2020 Active take 1 tablet by deidre th twice daily famotidine (PEPCID ORAL) Take 1 tablet by mouth twice daily. Active take 1 tablet by deidre th twice daily famotidine (PEPCID ORAL) Take 1 tablet by mouth twice daily. 0 Active Comment on above: new dose due to not making 40mg tabs anymore Take 1 tablet by deidre twice daily. ferrous sulfate 325 mg oral tablet (20 sources) take 1 tablet by mouth twice daily Ferrous Sulfate 325 (65 Fe) MG Oral Tablet bid (325 (65 Fe) MG) Active 24 hr fexofenadine hydrochloride 180 mg / pseudoephedrine hydrochloride 240 mg extended release oral tablet (20 sources) alpha-Adrenergic Agonist, Histamine-1 Receptor Antagonist Start: 01-28-20 take 180-240 mg by mouth every twenty-four [...] for 0 days Refills: 0 Ordered: 27-Aug-2008 Lloyd Marice Start : 27-Aug-2008 End : 31-Dec-2008 Discontinued [...] Quantity: 60 {Tablet} Refills: 2 Ordered: 22-Jun-2020 Yarelis Fitzpatrick DO, DO, Kathleen Start : 22-Jun-2020 Active Comments: for itching Start: 06-15-2020 hydrOXYzine HC l 25 MG Oral Tablet 1 (one) Tablet q6-8hrs prn for 0 days Quantity: 60 {Tablet} Refills: 2 Ordered: 15-Jun-2020 Yarelis Fitzpatrick DO, DO, Kathleen Start : 15-Jun-2020 Active Comments: for itching Start: 05-14-2020 hydrOXYzine HC l 25 MG Oral Tablet 1 (one) Tablet q6-8hrs prn for 0 days Quantity: 30 {Tablet} Refills: 0 Ordered: 14-May-2020 Yarelis Fitzpatrick DO, DO, Kathleen Start : 14-May-2020 Active Comments: for itching Start: 04-15-2020 hydrOXYzine HC l 25 MG Oral Tablet 1 (one) Tablet q6-8hrs prn for 0 days Quantity: 30 {Tablet} Refills: 0 Ordered: 15-Apr-2020 AmariYarelis felix DO, DO, Kathleen Start : 15-Apr-2020 Active Comments: for itching Start: 03-23-2020 hydrOXYzine HC l 25 MG Oral Tablet 1 (one) Tablet q6-8hrs prn for 0 days Quantity: 30 {Tablet} Refills: 0 Ordered: 23-Mar-2020 Amari ROBLEDOYarelis AmariYarelis felix DO Start : 23-Mar-2020 Active Comments: for itching Start: 03-04-2020 hydrOXYzine HC l 25 MG Oral Tablet 1 (one) Tablet q6-8hrs prn for 0 days Quantity: 30 {Tablet} Refills: 0 Ordered: 04-Mar-2020 Chachajohn ANGELKatia Start : 04-Mar-2020 Active Comments: for itching [...] Quantity: 6 {Tablet} Refills: 0 Ordered: 08-Nov-2022 Lyubov Lemon CMA Start : 08-Nov-2022 End : 10-Nov-2022 Inactive Comments: patient already had toradol IV at hospital Comment on above: patient already had toradol IV at hospital levalbuterol 0.21 mg/ml inhalation solution (20 sources) beta2-Adrenergic Agonist Start: 025 End: 025 take 0.63 mg by inhalation every twelve [...] Quantity: 5 {Tablet} Refills: 0 Ordered: 07-Oct-2022 Yarelis Fitzpatrick DO, DO, Kathleen Start : 22-Feb-2022 End : 07-Oct-2022 Discontinued Comments: Discontinued by Medication vendor. Start: 09-12-2020 End: 02-16-2021 take 1 tablet by mouth once daily levoFLOXacin 750 MG Oral Tablet 1 (one) Tablet daily for 7 days Quantity: 7 {Tablet} Refills: 0 Ordered: 09-Feb-2021 Chachajohn Katia Start : 09-Feb-2021 End : 16-Feb-2021 Inactive Start: 10-02-2009 End: 01-05-2023 take 1 tablet by mouth once daily Levaquin 500 mg oral tablet 1 Tablet daily for 10 days Quantity: 10 {Tablet} Refills: 0 Ordered: 07-Oct-2022 Yarelis Fitzpatrick DO, DO, Kathleen Start : 15-Oct-2021 End : 07-Oct-2022 Discontinued Comments: Discontinued by Medication vendor. Comment on above: Discontinued by [facility] vendor. ondansetron 4 mg disintegrating oral tablet (11 sources) Serotonin-3 Receptor Antagonist Start: 11-08-19 End: [...] oral capsule (7 sources) alpha-Adrenergic Gagan Start: 11-09-19 Flomax 0.4 mg oral capsule 1 (one) [...] Problem Date Documented Date Episodic/Chronic Abdominal hernia (9 sources) Hiatal hernia; Translations: [Diaphragmatic hernia without obstruction or gangrene] 03-22-2023 Episodic Abdominal pain (9 sources) Flank pain; Translations: [Unspecified abdominal pain] [...] [Unspecified renal colic] 11-07-2022 Episodic Cardiac dysrhythmias (4 sources) ECG: sinus tachycardia; Translations: [Tachycardia, unspecified] [...] 07-07-2023 01-10-2020 Chronic Comment on above: romeo Emelina 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 [...] Resolved: 10-14-2022 01-10-2020 Episodic Other circulatory disease (4 sources) Elevated blood-pressure reading without diagnosis of [...] 12-30-2022 12-16-2022 Episodic Other lower respiratory disease (18 sources) Lung mass; Translations: [Other nonspecific abnormal finding of lung field] 08-30-2024 Episodic Other lower respiratory disease (6 sources) Pleuritic pain; Translations: [Pleurodynia] 11-06-2024 Episodic Other lower respiratory disease (1 source) Other nonspecific abnormal finding of lung field; Translations: [Other nonspecific abnormal finding of lung field] Onset: 02-27-2025 Episodic Other nervous system disorders (20 sources) [...] noduel and a bnormal of RULlobe in 2013 seen valentina now see again but has [...] f/w with the lung nodulesnodule RUL lobe 2012, saw Valentina but then progressed. s/s with fever and chills and fatigue they treated her like pneumonia in ER repeat CT scan similar appearance of CT saw emelina put on breathing treatments, had script for atb to take right away if increase signs and symptoms. nodule RUL lobe 2012 , saw Edsona but then progressed. s/s with fever and [...] in throat Episodic Other upper respiratory disease (4 sources) Acute bronchospasm; Translations: [Acute bronchospasm] 12-08-2024 [...] Unspecified bacterial pneumonia; Translations: [Infective pneumonia] Onset: 01-31-2025 Resolved: 12-30-2022 01-10-2020 Episodic Comment on above: [...] noduel and a bnormal of RULlobe in 2013 seen valentina now see again but has [...] NOT SPECIFIED ACUTE OR CHRONIC (490.) Unclassified (6 sources) for infectious disease Unclassified (1 source) [...] Interpretation Reference Range Facility Respiratory Cultureon 2024 RESPC Mixed normal respira tory nanda. No Haemophilus, Streptococcus pneumoniae, beta-hemolytic Streptococcus or Staphylococcus aureus isolated. Normal [facility] Comment on above: Performed By: #### M 100.2400, M100.1999 #### [facility] [address] [place], [place], [address] Gram Stainon 01-31-2025 GS Acceptable Specimen? Yes (<25 Epithelial cells per/lpf) Gram Stain 2+ Gram positive cocci 1+ Gram positive rods 1+ Gram negative rods Rare Epithelial cells Normal [facility] Comment on above: Performed By: #### M 100.2400, M100.1999 #### [facility] [address] [place], [place], [address] Gram stainOrdered By: Rajat Tarango on 01-30-2025 Microscopic observation Gram stain Nom (Unsp spec) [facility] Respiratory Cultureon 2024 RESPC Copy of report sent to Infection Control [...] S Penicillin Islt CELENA 1 I Normal [facility] Comment on above: Performed By: #### M 100.2400, M100.1999 #### [facility] [address] [place], [place], [id number] Gram Stainon 01-11-2025 GS Acceptable Specimen? Yes (<25 Epithelial cells per/lpf) Gram Stain 2+ Gram negative rods 1+ Gram positive rods 2+ Gram positive cocci 1+ White Blood Cells Rare Epithelial cells Normal [facility] Comment on above: Performed By: #### M 100.2400, M100.1999 #### [facility] [address] [place], [place], [id number] Gram stainOrdered By: NAREN Del Real on 01-11-2025 Microscopic observation Gram stain Nom (Unsp spec) [facility] Microbial respiratory cultur eOrdered By: NAREN Del Real on 01-11-2025 Microorganism identified Cx Nom (Unsp spec) Streptococcus pneumoniae Abnormal [facility] Microorganism identified Cx Nom (Unsp spec) Haemophilus influenzae Abnormal [facility] Immunoglobulin Dilip 5 IMMUNOGLOB G QN 936 mg/dL Normal [id number] [facility] Comment on above: Result Comment: Perf ormed at: - [facility] [address] [id number] Cigar Packer And Grader: Ramsey Oleary PhD, Phone: [phone] Performed By: #### L 3200.1300 #### [facility] [address] [place], [place], [id number] Serum or plasma IgG measurem ent (mass/volume)on 12-21-2024 IgG [Mass/Vol] 936 mg/dL [phone] [facility] Comment on above: Performed at: - [facility] [address] [id number] Director: Ramsey Oleary PhD, Phone: [phone] Progress Noteon 12-09-2024 Deputy Head Authentication Interface Message Text Ofe is a [...] used to be followed by Dr. Tarango (Cow Trimmer) for lung nodules and she had been [...] Fitzpatrick she was to see Dr. Meeks (Cow Trimmer in [place]) and she had done this once and [...] was tolerated. -Due to her seeing a Cow Trimmer (Dr. Meeks), I held off on spirometry at her initial visit and food and environmental allergen testing did not appear to be indicated and this was discussed with her. At her initial visit, I ordered IgG, IgA, IgM and IgE levels, lymphocyte profile, tetanus titer, pneumococcal titers, HIV and Mitogen studies (8134) and on 02/13/23, IgG-242, IgA <5, IgM-23 [...] 07/07/23. She says her spirometry with her Cow Trimmer was normal and she did not have [...] then received a phone call from her Cow Trimmer's office and see 11/01/24. Received a call from Patience Del Real [facility] Pulmon[facility] (phone # [phone] and #[phone]). She wanted to discuss Ofe who was [...] Pulmonology wi (more content not included)... Normal [facility] Absolute lymphocyte countOrd ered By: Mikekylie Mai on 12-08-2024 Lymphocytes Auto (Unsp spec) [#/Vol] 3.83 10*3/uL 0.83-4.51 [facility] Absolute neutrophil countOrd ered By: [facility] on 12-08-2024 Neutrophils (Bld) [#/Vol] 12.3 10*3/uL High 2.0-7.7 [facility] Anion gap in Serum or Plasma Ordered By: Mike Mai on 12-08-2024 Anion gap [Moles/Vol] 12 mmol/L 5-15 [facility] Automated lymphocyte count a s percentage of total leukocytesOrdered By: Mikekylie Mai on 12-08-2024 Lymphocytes/100 WBC Auto (Unsp spec) 21.5 % - [facility] BUN/creatinine ratioOrdered By: Mike Mai on 12-08-2024 Urea nitrogen/Creatinine [Mass ratio] 14.0 mg/mg - [facility] Basophil percentageOrdered B y: Mikekylie Mai on 12-08-2024 Basophils/100 WBC (Bld) 0.4 % 0- [facility] Bilirubin, totalOrdered By: Mikekylie Mai on 12-08-2024 Bilirubin [Mass/Vol] 0.29 mg/dL 0.00-1.30 [facility] CBC W/Diff, Automatedon 11-20 Absolute Lymph 3.83 X10 3/uL Normal 0.83-4.51 [facility] Comment on above: Performed By: #### M 100.2400, #### [facility] [address] [place], [address] Absolute Neut 12.3 X10 3/uL High 2.0-7.7 [facility] Comment on above: Performed By: #### M 100.240, #### [facility] [address] [place], [address] Basophils/100 WBC (Bld) 0.4 % Normal 0-1 [facility] Comment on above: Performed By: #### M 100.240, #### [facility] [address] [place], [address] Eosinophils/100 WBC (Bld) 0.7 % Normal 0-5 [facility] Comment on above: Performed By: #### M 100.240, #### [facility] [address] [place], [address] Erythrocyte distribution width (RBC) [Ratio] 15.3 % High 11.6-14.6 [facility] Comment on above: Performed By: #### M 100.240, #### [facility] [address] [place], [address] Hematocrit (Bld) [Volume fraction] 39.6 % Normal 37-47 [facility] Comment on above: Performed By: #### M 100.240, #### [facility] [address] [place], [address] Hemoglobin (Bld) [Mass/Vol] 13.4 g/dL Normal 12.0-15.0 [facility] Comment on above: Performed By: #### M 100.240, #### [facility] [address] [place], [address] IG% 0.500 Normal 0.0-0.9 [facility] Comment on above: Result Comment: IG% - Immature Granulocytes (promyelocytes, myelocytes and metamyelocytes) > 1% indicates that a LEFT SHIFT is Present. Performed By: #### M 100.2400, #### [facility] [address] [place], [address] Lymphocytes/100 WBC (Bld) 21.5 % Normal 19-41 [facility] Comment on above: Performed By: #### M 100.2400, #### [facility] [address] [place], [address] MCH (RBC) [Entitic mass] 27.3 pg Normal 27.0-32.0 [facility] Comment on above: Performed By: #### M 100.2400, #### [facility] [address] [place], [address] MCHC (RBC) [Mass/Vol] 33.8 g/dL Normal 32-36 [facility] Comment on above: Performed By: #### M 100.2400, #### [facility] [address] [place], [address] MCV (RBC) [Entitic vol] 80.8 fL Low 81-99 [facility] Comment on above: Performed By: #### M 100.2400, #### [facility] [address] [place], [address] Monocytes/100 WBC (Bld) 7.8 % Normal 0-10 [facility] Comment on above: Performed By: #### M 100.2400, #### [facility] [address] [place], [address] Neutrophils/100 WBC (Bld) 69.1 % Normal 47-70 [facility] Comment on above: Performed By: #### M , #### [facility] [address] [place], [address] Nucleated RBC (Bld) [#/Vol] 0 10*3/uL Normal 0-5 [facility] Comment on above: Performed By: #### M , #### [facility] [address] [place], [address] Platelet mean volume (Bld) [Entitic vol] 9.6 fL Normal 6.2-12.0 [facility] Comment on above: Performed By: #### M , #### [facility] [address] [place], [address] Platelets (Bld) [#/Vol] 435 10*3/uL Normal 150-450 [facility] Comment on above: Performed By: #### M , #### [facility] [address] [place], [address] RBC (Bld) [#/Vol] 4.90 10*6/uL Normal 4.2-5.4 [facility] Comment on above: Performed By: #### M , #### [facility] [address] [place], [address] RDW SD 45.0 fl High 35.1-43.9 [facility] Comment on above: Performed By: #### M , #### [facility] [address] [place], [address] WBC (Bld) [#/Vol] 17.8 10*3/uL High 4.4-11.0 [facility] Comment on above: Performed By: #### M 100.2400, M100.1999 #### [facility] [address] [place], [place], [address] Carbon dioxide, total [Moles /volume] in Central venous bloodOrdered By: Mike Mai on 12-08-2024 CO2 [Moles/Vol] 25.5 mmol/L 21.0-32.0 [facility] Chest PA and Lateralon 12-08 Chest PA and Lateral [facility] Imaging Services [address] [place] [address] Chest PA and Lateral MR#: [id number] Acct: [id number] Name: OFE GIMENEZ Rep #: [id number] : 1975 F 49 From: Santos Arana i, MD PCP: Dr. Yarelis Fitzpatrick DO Status: PRE ER Study: Chest PA and Lateral Date of Exam: 12/08/24 Exam# [id number] Ordering Dr: Mike Mai MD PROCEDURE: CHEST [...] infiltrate or consolidation is seen. Reading Location: [id number] CC: Dr. Yarelis Fitzpatrick DO; Dr. Mike Mai MD Funds Development Director: Signed Normal [facility] Chloride assayOrdered By: Magy Mai on 12-08-2024 Chloride [Moles/Vol] 102 mmol/L 98-108 [facility] Comprehensive Metabolic Prof ilon 12-08-2024 Albumin [Mass/Vol] 4.3 g/dL Normal 3.5-5.0 [facility] Comment on above: Performed By: #### M .240, #### [facility] [address] [place], [address] Albumin/Globulin [Mass ratio] 1.5 {ratio} Normal 0.9-2.4 [facility] Comment on above: Performed By: #### M 100.240, #### [facility] [address] [place], [address] ALK PHOS 145 U/L High 35-104 [facility] Comment on above: Performed By: #### M 240, #### [facility] [address] [place], [address] ALT [Catalytic activity/Vol] 29 U/L Normal <=34 [facility] Comment on above: Performed By: #### , #### [facility] [address] [place], [address] AST [Catalytic activity/Vol] 30 U/L Normal <=31 [facility] Comment on above: Performed By: #### , #### [facility] [address] [place], [address] Bilirubin [Mass/Vol] 0.29 mg/dL Normal 0.00-1.30 [facility] Comment on above: Performed By: #### M 240, #### [facility] [address] [place], [address] BUN/CRE 14.0 RATIO Normal 10-20 [facility] Comment on above: Performed By: #### M 240, #### [facility] [address] [place], [address] Calcium [Mass/Vol] 9.3 mg/dL Normal 7.6-11.0 [facility] Comment on above: Performed By: #### M 100.2400, #### [facility] [address] [place], [address] Chloride [Moles/Vol] 102 mmol/L Normal 98-108 [facility] Comment on above: Performed By: #### M 100.240, #### [facility] [address] [place], [address] CO2 [Moles/Vol] 25.5 mmol/L Normal 21.0-32.0 [facility] Comment on above: Performed By: #### M 100.240, #### [facility] [address] [place], [address] Creatinine [Mass/Vol] 0.65 mg/dL Low 0.70-1.20 [facility] Comment on above: Performed By: #### M 100.240, #### [facility] [address] [place], [address] ECRCL 95.86 ml/min Normal 50-250 [facility] Comment on above: Performed By: #### M 100.240, #### [facility] [address] [place], [address] GAP 12 Normal 5-15 [facility] Comment on above: Performed By: #### M 100.240, #### [facility] [address] [place], [address] GFR/1.73 sq M.predicted among non-blacks MDRD (S/P/Bld) [Vol rate/Area] 107 mL/min/{1.73_m2} Normal >60 [facility] Comment on above: Result Comment: mL/m in/1.73m2 CKD-EPI Creatinine Equation (2020) Performed By: #### M 100.240, #### [facility] [address] [place], [address] Globulin (S) [Mass/Vol] 2.9 g/dL Normal 2.2-4.2 [facility] Comment on above: Performed By: #### M 100.2400, #### [facility] [address] [place], [address] Glucose [Mass/Vol] 113 mg/dL High 70-99 [facility] Comment on above: Performed By: #### M 100.240, #### [facility] [address] [place], [address] Potassium [Moles/Vol] 4.2 mmol/L Normal 3.3-5.1 [facility] Comment on above: Performed By: #### M 100.240, #### [facility] [address] [place], [address] Sodium [Moles/Vol] 140 mmol/L Normal 133-145 [facility] Comment on above: Performed By: #### M 100.240, #### [facility] [address] [place], [address] T PROT 7.2 g/dL Normal 5.9-8.4 [facility] Comment on above: Performed By: #### M 100.2400, #### [facility] [address] [place], [address] Urea nitrogen [Mass/Vol] 9 mg/dL Normal 4-19 [facility] Comment on above: Performed By: #### M 100.2400, #### [facility] [address] 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 She was prescribed azithromycin. Her fifth dose [...] Method R (more content not included)... Normal [facility] Eosinophil percentageOrdered By: Mike Mai on 12-08-2024 Eosinophils/100 WBC (Bld) 0.7 % 0-5 [facility] Erythrocyte distribution wid th (RBC) [Ratio]Ordered By: Mike Mai on 12-08-2024 Erythrocyte distribution width (RBC) [Entitic vol] 45.0 fL High 35.1-43.9 [facility] Erythrocyte distribution wid th ratioOrdered By: Mikekylie Mai on 12-08-2024 Erythrocyte distribution width (RBC) [Ratio] 15.3 % High 11.6-14.6 [facility] Erythrocyte distribution wid th standard deviationOrdered By: Mikekylie Mai on 12-08-2024 Erythrocyte distribution width (RBC) [Ratio] 45.0 fl High 35.1-43.9 [facility] Estimation of creatinine boby aranceOrdered By: Mike Mai on 12-08-2024 Estimated Creatinine Clearance Calc 95.86 ml/min 50-250 [facility] GFR/1.73 sq M.predicted juan carlos g non-blacks MDRD (S/P/Bld) [Vol rate/Area]Ordered By: Mike Mai on 12-08-2024 Estimated GFR (MDRD) Non-Af Amer 107 >60 [facility] Comment on above: mL/min/1.73m2 CKD-EP I Creatinine Equation (2020) Glomerular filtration rate ( GFR) estimation/1.73 sq m using serum, plasma, or whole bOrdered By: Mike Mai on 12-08-2024 GFR/1.73 sq M.predicted among non-blacks MDRD (S/P/Bld) [Vol rate/Area] 107 mL/min/{1.73_m2} >60 [facility] Comment on above: mL/min/1.73m2 CKD-EP I Creatinine Equation (2020) Hematocrit Auto (Bld) [Volum e fraction]Ordered By: Mike Mai on 12-08-2024 Hematocrit (Bld) [Volume fraction] 39.6 % 37-47 [facility] Hemoglobin measurementOrdere d By: Mike Mai on 12-08-2024 Hemoglobin (Bld) [Mass/Vol] 13.4 g/dL 12.0-15.0 [facility] Immature granulocytes/100 WB C Auto (Bld)Ordered By: Mkie Mai on 12-08-2024 Immature granulocytes/100 WBC (Bld) 0.500 % 0.0-0.9 [facility] Comment on above: IG% - Immature Granu locytes (promyelocytes, myelocytes and metamyelocytes) > 1% indicates that a LEFT SHIFT is Present. Influenza virus A and B and SARS-CoV-2 (COVID-19) and Respiratory syncytial virus RNAOrdered By: Mike Mai on 12-08-2024 SARS-CoV-2 (COVID-19) RNA MICHELLE+probe Ql (Unsp spec) [facility] - Chemistry and C hemistry - challengeOrdered By: Mikekylie Mai on 12-08-2024 AST [Catalytic activity/Vol] 30 U/L <32 [facility] Lactic Acidon 12-08-2024 Lactate [Moles/Vol] 1.3 mmol/L Normal 0.0-2.0 [facility] Comment on above: Order Comment: Y Performed By: #### M 100.2400, M100.1999 #### [facility] [address] [place], [address] Lactic acid measurementOrder ed By: Mike Mai on 12-08-2024 Lactate [Moles/Vol] 1.3 mmol/L 0.0-2.0 [facility] Lymphocytes Auto (Unsp spec) [#/Vol]Ordered By: Mike Mai on 12-08-2024 Lymphocytes (Bld) [#/Vol] 3.83 10*3/uL 0.83-4.51 [facility] Lymphocytes/100 WBC Auto (Un sp spec)Ordered By: Mike Mai on 12-08-2024 Lymphocytes/100 WBC (Bld) 21.5 % 19-41 [facility] M100.678on 12-08-2024 M100.678 SARS-CoV-2 (COVID 19 ) Negative INFLUENZA A Negative INFLUENZA B Negative RSV PCR Negative Normal [facility] Comment on above: Performed By: #### M 100.2400, M100.2000 #### [facility] [address] [place], [address] MCV (mean corpuscular volume ) determinationOrdered By: Mike Mai on 12-08-2024 MCV (RBC) [Entitic vol] 80.8 fL Low 81-99 [facility] Mean corpuscular hemoglobin (MCH) determinationOrdered By: Mike Mai on 12-08-2024 MCH (RBC) [Entitic mass] 27.3 pg 27.0-32.0 [facility] Mean corpuscular hemoglobin concentration (MCHC) determinationOrdered By: Mike Mai on 12-08-2024 MCHC (RBC) [Mass/Vol] 33.8 g/dL 32-36 [facility] Mean platelet volume determi nationOrdered By: Mike Mai on 12-08-2024 Platelet mean volume (Bld) [Entitic vol] 9.6 fL 6.2-12.0 [facility] Monocyte percentageOrdered B y: Mike Mai on 12-08-2024 Monocytes/100 WBC (Bld) 7.8 % 0-10 [facility] Neutrophil percentageOrdered By: Mike Mai on 12-08-2024 Neutrophils/100 WBC (Bld) 69.1 % 47-70 [facility] Nucleated red blood cell per centageOrdered By: Mike Mai on 12-08-2024 Nucleated RBC/100 WBC (Bld) [Ratio] 0 % 0-5 [facility] Platelet countOrdered By: Ug o Mai on 12-08-2024 Platelets (Bld) [#/Vol] 435 10*3/uL 150-450 [facility] Potassium (Unsp spec) [Mass/ Vol]Ordered By: Mike Mai on 12-08-2024 Potassium [Moles/Vol] 4.2 mmol/L 3.3-5.1 [facility] Potassium measurement (mass/ volume)Ordered By: Mike Mai on 12-08-2024 Potassium (Unsp spec) [Mass/Vol] 4.2 mmol/L 3.3-5.1 [facility] RBC Auto (Bld) [#/Vol]Ordere d By: Mike Mai on 12-08-2024 RBC (Bld) [#/Vol] 4.90 10*6/uL 4.2-5.4 [facility] Serum creatinine measurement (mass/volume)Ordered By: Mike Mai on 12-08-2024 Creatinine [Mass/Vol] 0.65 mg/dL Low 0.70-1.20 [facility] Serum globulin measurementOr dered By: Mike Mai on 12-08-2024 Globulin (S) [Mass/Vol] 2.9 g/dL 2.2-4.2 [facility] Serum glucose measurement (m ass/volume)Ordered By: Mike Mai on 12-08-2024 Glucose [Mass/Vol] 113 mg/dL High 70-99 [facility] Serum or plasma alanine ruby otransferase (ALT) measurementOrdered By: Mike Mai on 12-08-2024 ALT [Catalytic activity/Vol] 29 U/L <35 [facility] Serum or plasma albumin sanford urement (mass/volume)Ordered By: Mike Mai 12-08-2024 Albumin [Mass/Vol] 4.3 g/dL 3.5-5.0 [facility] Serum or plasma albumin/glob ulin mass ratioOrdered By: Mike Mai 12-08-2024 Albumin/Globulin [Mass ratio] 1.5 {ratio} 0.9-2.4 [facility] Serum or plasma alkaline neftali sphatase measurementOrdered By: Mike Mai on 12-08-2024 ALP [Catalytic activity/Vol] 145 U/L High 35-104 [facility] Serum or plasma calcium sanford urement (mass/volume)Ordered By: Mike Mai 12-08-2024 Calcium [Mass/Vol] 9.3 mg/dL 7.6-11.0 [facility] Serum or plasma urea nitroge n measurement (mass/volume)Ordered By: Mike Mai on 12-08-2024 Urea nitrogen [Mass/Vol] 9 mg/dL 4-19 [facility] Sodium levelOrdered By: Mike Mai on 12-08-2024 Sodium [Moles/Vol] 140 mmol/L 133-145 [facility] Total proteinOrdered By: Mike Mai on 12-08-2024 Protein [Mass/Vol] 7.2 g/dL 5.9-8.4 [facility] White blood cell (WBC) count Ordered By: Mike Mai on 12-08-2024 WBC (Bld) [#/Vol] 17.8 10*3/uL High 4.4-11.0 [facility] Respiratory Cultureon 2024 RESPC Streptococcus pneumo niae [...] S Penicillin Islt CELENA 0.12 I Normal [facility] Comment on above: Performed By: #### M 100.2400, M1 #### [facility] [address] [place], [place], [address] Gram Stainon 11-25-2024 GS Acceptable Specimen? Yes (<25 Epithelial cells per/lpf) Gram Stain 4+ Gram positive cocci 2+ White Blood Cells 1+ Epithelial cells 4+ Gram positive diplococci 4+ Gram positive rods 1+ Gram negative rods Normal [facility] Comment on above: Performed By: #### M 100.2400, M100.1999 #### [facility] [address] [place], [place], [address] Gram stainOrdered By: Yordan Vanegas on 11-25-2024 Microscopic observation Gram stain Nom (Unsp spec) [facility] Microbial respiratory cultur eOrdered By: Yordan Vanegas on 11-25-2024 Microorganism identified Cx Nom (Unsp spec) Streptococcus pneumoniae Abnormal [facility] Microorganism identified Cx Nom (Unsp spec)Ordered By: Yordan Vanegas on 11-25-2024 Respiratory Culture Streptococcus pneumoniae Abnormal [facility] Culture, Blood (WB)on 2024 CUB Blood cultures x2, f rom two different sites No growth in 5 days. [facility] Comment on above: Performed By: #### M 200.1000 #### [facility] [address] [place], [place], [address] Respiratory Cultureon 2024 RESPC List Antibiotics to [...] 0.12 S Penicillin Islt CELENA 0.12 I [facility] Comment on above: Performed By: #### M 100.2400, M1.1999 #### [facility] [address] [place], [place], [address] Gram Stainon 11-07-2024 List Antibiotics to be Started? doxycycline, cefdinir Acceptable Specimen? Yes (<25 Epithelial cells per/lpf) Gram Stain Rare Gram positive rods 1+ Gram negative diplococci 2+ Gram positive cocci 1+ White Blood Cells No Epithelial cells * This is an amended result. * A prior result that was reported as final has been changed. 11/08/24 0744 by HUE [facility] Comment on above: Performed By: #### M 100.2400, M1.1999 #### [facility] [address] [facility] [place], [place], [address] Legionella Antigen Urineon 0 11-07-2024 LEGU URINE, CLEAN CATCH Legionella Antigen result interpretation: L pneumo Ag Ur Ql Negative Presumptive negative for Legionella pneumophila serogroup 1 antigen in urine, suggesting no recent or current infection. Legionella Ag, Urine Negative (See interpretation below) Normal [facility] Comment on above: Performed By: #### M 100.2400, M100.1999 #### [facility] [address] [place], [address] Strep pneumoniae Antig(UR,CS F)on 11-07-2024 STPAG URINE INTERPRETATION Strep pneumoniae Antig(UR,CSF) Strep pneumoniae Antig(UR,CSF) Negative Urine Presumptive negative for pneumococcal pneumonia, suggesting no current or recent pneumococcal infection. Infection due to S pneumoniae cannot be ruled out since the antigen present in the sample may be below the detection limit of the test. Strep pneumo Test Negative URINE (See interpretation below) Normal [facility] Comment on above: Performed By: #### M 100.2400, M100.1999 #### [facility] [address] [place], [place], [id number] 12 Lead EKGon 11-06-2024 12 Lead EKG [facility] Cardiovascular Services [address] [place] [address] 12 Lead EKG 11/06/24 2218 MR#: [id number] Acct: [id number] Name: OFE GIMENEZ Rep #: [id number] : 1975 49 From: Balta Whipple MD [...] No significant change was found Confirmed by MELONIE SIERRA, BALTA ([id number]), dictionary editor KARLO DIAZ ([id number]) on 11/11/2024 7:33:43 AM Referred By: Yordan Vanegas Confirmed By: BALTA WHIPPLE MD 11/11/24 0733 Date Balta Whipple MD CC: Dr. Yordan Vanegas, ; Dr. Yarelis Fitzpatrick DO Signed Normal [facility] Absolute lymphocyte countOrd ered By: Yordan Vanegas on 11-06-2024 Lymphocytes Auto (Unsp spec) [#/Vol] 2.98 10*3/uL 0.83-4.51 [facility] Absolute neutrophil countOrd ered By: Yordan Vanegas on 11-06-2024 Neutrophils (Bld) [#/Vol] 15.7 10*3/uL High 2.0-7.7 [facility] Anion gap in Serum or Plasma Ordered By: Yordan Vanegas on 11-06-2024 Anion gap [Moles/Vol] 12 mmol/L 5-15 [facility] Automated lymphocyte count a s percentage of total leukocytesOrdered By: Yordan Vanegas on 11-06-2024 Lymphocytes/100 WBC Auto (Unsp spec) 14.8 % Low 19-41 [facility] BUN/creatinine ratioOrdered By: Yordan Vanegas on 11-06-2024 Urea nitrogen/Creatinine [Mass ratio] 15.6 mg/mg 10-20 [facility] Basophil percentageOrdered B y: Yordan Vanegas on 11-06-2024 Basophils/100 WBC (Bld) 0.5 % 0-1 [facility] Bilirubin Test strip Ql (U)O rdered By: Yordan Vanegas on 11-06-2024 Bilirubin Ql (U) Negative Negative [facility] Bilirubin, totalOrdered By: Yordan Vanegas on 11-06-2024 Bilirubin [Mass/Vol] 0.24 mg/dL 0.00-1.30 [facility] Blood cultureOrdered By: Frantz Vanegas on 11-06-2024 Bacteria identified Cx Nom (Bld) No growth in 5 days. [facility] Bacteria identified Cx Nom (Bld) No growth in 5 days. [facility] CBC W/Diff, Automatedon - Absolute Lymph 2.98 X10 3/uL Normal 0.83-4.51 [facility] Comment on above: Performed By: #### M 100.2400, .1999 #### [facility] [address] [place], [address] Absolute Neut 15.7 X10 3/uL High 2.0-7.7 [facility] Comment on above: Performed By: #### M 100.2400, #### [facility] [address] [place], [address] Basophils/100 WBC (Bld) 0.5 % Normal 0-1 [facility] Comment on above: Performed By: #### M 100.2400, .1999 #### [facility] [address] [place], [address] Eosinophils/100 WBC (Bld) 0.2 % Normal 0-5 [facility] Comment on above: Performed By: #### M 100.2400, #### [facility] [address] [place], [address] Erythrocyte distribution width (RBC) [Ratio] 14.4 % Normal 11.6-14.6 [facility] Comment on above: Performed By: #### M 100.2400, #### [facility] [address] [place], [address] Hematocrit (Bld) [Volume fraction] 37.9 % Normal 37-47 [facility] Comment on above: Performed By: #### M 100.2400, #### [facility] [address] [place], [address] Hemoglobin (Bld) [Mass/Vol] 13.1 g/dL Normal 12.0-15.0 [facility] Comment on above: Performed By: #### M .2399, #### [facility] [address] [place], [address] IG% 0.500 Normal 0.0-0.9 [facility] Comment on above: Result Comment: IG% - Immature Granulocytes (promyelocytes, myelocytes and metamyelocytes) > 1% indicates that a LEFT SHIFT is Present. Performed By: #### M .240, #### [facility] [address] [place], [address] Lymphocytes/100 WBC (Bld) 14.8 % Low 19-41 [facility] Comment on above: Performed By: #### M , #### [facility] [address] [place], [address] MCH (RBC) [Entitic mass] 28.2 pg Normal 27.0-32.0 [facility] Comment on above: Performed By: #### M , #### [facility] [address] [place], [address] MCHC (RBC) [Mass/Vol] 34.6 g/dL Normal 32-36 [facility] Comment on above: Performed By: #### M .240, #### [facility] [address] [place], [address] MCV (RBC) [Entitic vol] 81.5 fL Normal 81-99 [facility] Comment on above: Performed By: #### M .240, #### [facility] [address] [place], [address] Monocytes/100 WBC (Bld) 6.4 % Normal 0-10 [facility] Comment on above: Performed By: #### M 100.2400, #### [facility] [address] [place], [address] Neutrophils/100 WBC (Bld) 77.6 % High 47-70 [facility] Comment on above: Performed By: #### M 100.2400, #### [facility] [address] [place], [address] Nucleated RBC (Bld) [#/Vol] 0 10*3/uL Normal 0-5 [facility] Comment on above: Performed By: #### M 100.240, #### [facility] [address] [place], [address] Platelet mean volume (Bld) [Entitic vol] 9.6 fL Normal 6.2-12.0 [facility] Comment on above: Performed By: #### M 100.240, #### [facility] [address] [place], [address] Platelets (Bld) [#/Vol] 536 10*3/uL High 150-450 [facility] Comment on above: Performed By: #### M 100.240, #### [facility] [address] [place], [address] RBC (Bld) [#/Vol] 4.65 10*6/uL Normal 4.2-5.4 [facility] Comment on above: Performed By: #### M 100.2400, #### [facility] [address] [place], [address] RDW SD 42.3 fl Normal 35.1-43.9 [facility] Comment on above: Performed By: #### M 100.2400, #### [facility] [address] [place], [place], [address] WBC (Bld) [#/Vol] 20.2 10*3/uL High 4.4-11.0 [facility] Comment on above: Performed By: #### M 100.2400, M100.2000 #### [facility] [address] [place], [place], [address] CTA Chest W/WO Contraston CTA Chest W/WO Contrast [facility] Imaging Services [address] [place], [place] [address] CTA Chest W/WO Contrast MR#: [id number] Acct: [id number] Name: OFE GIMENEZ Rep #: [id number] : 1975 F 49 From: Zaki landeros MD PCP: Dr. Yarelis Fitzpatrick, Status: [facility] ER Study: CTA Chest W/WO Contrast Date of Exam: 11/06/24 Exam# [id number] Ordering Dr: Yordan Vanegas DO PROCEDURE: CTA [...] Yordan Vanegas, DO; Dr. Yarelis Fitzpatrick, DO Funds Development Director: Signed Normal [facility] Carbon dioxide, total [Moles /volume] in Central venous bloodOrdered By: Yordan Vanegas on 11-06-2024 CO2 [Moles/Vol] 23.7 mmol/L 21.0-32.0 [facility] Chloride assayOrdered By: Gregory Vanegas on 11-06-2024 Chloride [Moles/Vol] 104 mmol/L 98-108 [facility] Comprehensive Metabolic Prof ilon 11-06-2024 Albumin [Mass/Vol] 4.2 g/dL Normal 3.5-5.0 [facility] Comment on above: Performed By: #### M 100.240, #### [facility] [address] [facility] [place], [address] Albumin/Globulin [Mass ratio] 1.5 {ratio} Normal 0.9-2.4 [facility] Comment on above: Performed By: #### M 100.240, #### [facility] [address] [place], [address] ALK PHOS 94 U/L Normal 35-104 [facility] Comment on above: Performed By: #### M 100.240, #### [facility] [address] [place], [address] ALT [Catalytic activity/Vol] 21 U/L Normal <=34 [facility] Comment on above: Performed By: #### M 100.240, #### [facility] [address] [place], [address] AST [Catalytic activity/Vol] 26 U/L Normal <=31 [facility] Comment on above: Performed By: #### M .240, #### [facility] [address] [place], [address] Bilirubin [Mass/Vol] 0.24 mg/dL Normal 0.00-1.30 [facility] Comment on above: Performed By: #### M , #### [facility] [address] [place], [address] BUN/CRE 15.6 RATIO Normal 10-20 [facility] Comment on above: Performed By: #### , #### [facility] [address] [place], [address] Calcium [Mass/Vol] 9.4 mg/dL Normal 7.6-11.0 [facility] Comment on above: Performed By: #### M #### [facility] [address] [place], [address] Chloride [Moles/Vol] 104 mmol/L Normal 98-108 [facility] Comment on above: Performed By: #### M #### [facility] [address] [place], [address] CO2 [Moles/Vol] 23.7 mmol/L Normal 21.0-32.0 [facility] Comment on above: Performed By: #### M , #### [facility] [address] [place], [address] Creatinine [Mass/Vol] 0.77 mg/dL Normal 0.70-1.20 [facility] Comment on above: Performed By: #### M 100.2400, #### [facility] [address] [place], [address] ECRCL 80.92 ml/min Normal 50-250 [facility] Comment on above: Performed By: #### M 100.2400, #### [facility] [address] [place], [address] GAP 12 Normal 5-15 [facility] Comment on above: Performed By: #### M 100.240, #### [facility] [address] [place], [address] GFR/1.73 sq M.predicted among non-blacks MDRD (S/P/Bld) [Vol rate/Area] 94 mL/min/{1.73_m2} Normal >60 [facility] Comment on above: Result Comment: mL/m in/1.73m2 CKD-EPI Creatinine Equation (2020) Performed By: #### M 100.2400, #### [facility] [address] [place], [address] Globulin (S) [Mass/Vol] 2.7 g/dL Normal 2.2-4.2 [facility] Comment on above: Performed By: #### M 100.240, #### [facility] [address] [place], [address] Glucose [Mass/Vol] 139 mg/dL High 70-99 [facility] Comment on above: Performed By: #### M 100.240, #### [facility] [address] [place], [address] Potassium [Moles/Vol] 3.7 mmol/L Normal 3.3-5.1 [facility] Comment on above: Performed By: #### M 100.2400, #### [facility] [address] [place], [address] Sodium [Moles/Vol] 140 mmol/L Normal 133-145 [facility] Comment on above: Performed By: #### M 100.2400, M100.1999 #### [facility] [address] [place], [address] T PROT 6.9 g/dL Normal 5.9-8.4 [facility] Comment on above: Performed By: #### M 100.2400, M100.1999 #### [facility] [address] [place], [address] Urea nitrogen [Mass/Vol] 12 mg/dL Normal 4-19 [facility] Comment on above: Performed By: #### M 100.2400, M100.1999 #### [facility] [address] [place], [address] Emergency Department Summary on 11-06-2024 Emergency Department Summary [facility] Medical Records Department [address] [place] [address] Emergency Department Summary 11/06/24 MR#: [id number] Acct: [id number] Name: OFE GIMENEZ Rep #: [id number] : 1975 49 From: Yordan Vanegas DO [...] follows locally with pulmonology Dr. Meeks and medical science liaison at [facility] Dr. Vazquez. In September of this [...] home oxygen. She is a lifelong non-smoker. [facility] Medical History (Updated 11/06/24 @ 23:[address] Yordan Vanegas, ) Immunoglobulin deficiency Mass of upper lobe of [...] and mois (more content not included)... Normal [facility] Eosinophil percentageOrdered By: Yordan Vanegas on 11-06-2024 Eosinophils/100 WBC (Bld) 0.2 % 0-5 [facility] Epithelial cells.squamous LM Ql (Urine sed)Ordered By: Yordan Vanegas on 11-06-2024 Epithelial cells.squamous LM.HPF (Urine sed) [#/Area] 0 /[HPF] 5-10 [facility] Erythrocyte distribution wid th ratioOrdered By: Yordan Vanegas on 11-06-2024 Erythrocyte distribution width (RBC) [Ratio] 14.4 % 11.6-14.6 [facility] Erythrocyte distribution wid th standard deviationOrdered By: Yordan Vanegas on 11-06-2024 Erythrocyte distribution width (RBC) [Entitic vol] 42.3 fL 35.1-43.9 [facility] Erythrocyte distribution width (RBC) [Ratio] 42.3 fl 35.1-43.9 [facility] Estimation of creatinine boby aranceOrdered By: Yordan Vanegas on 11-06-2024 Estimated Creatinine Clearance Calc 80.92 ml/min 50-250 [facility] GFR/1.73 sq M.predicted juan carlos g non-blacks MDRD (S/P/Bld) [Vol rate/Area]Ordered By: Yordan Vanegas on 11-06-2024 Estimated GFR (MDRD) Non-Af Amer 94 >60 [facility] Comment on above: mL/min/1.73m2 CKD-EP I Creatinine Equation (2020) Glomerular filtration rate ( GFR) estimation/1.73 sq m using serum, plasma, or whole bOrdered By: Yordan Vanegas on 11-06-2024 GFR/1.73 sq M.predicted among non-blacks MDRD (S/P/Bld) [Vol rate/Area] 94 mL/min/{1.73_m2} >60 [facility] Comment on above: mL/min/1.73m2 CKD-EP I Creatinine Equation (2020) Glucose Ql (U)Ordered By: Gregory Vanegas on 11-06-2024 Urine Glucose (UA) Normal mg/dl Normal [facility] Gram stainOrdered By: Yordan Vanegas on 11-06-2024 Microscopic observation Gram stain Nom (Unsp spec) [facility] Hematocrit Auto (Bld) [Volum e fraction]Ordered By: Yordan Vanegas on 11-06-2024 Hematocrit (Bld) [Volume fraction] 37.9 % 37-47 [facility] Hemoglobin measurementOrdere d By: Yordan Vanegas on 11-06-2024 Hemoglobin (Bld) [Mass/Vol] 13.1 g/dL 12.0-15.0 [facility] Immature granulocytes/100 WB C Auto (Bld)Ordered By: Yordan Vanegas on 11-06-2024 Immature granulocytes/100 WBC (Bld) 0.500 % 0.0-0.9 [facility] Comment on above: IG% - Immature Granu locytes (promyelocytes, myelocytes and metamyelocytes) > 1% indicates that a LEFT SHIFT is Present. Influenza virus A and B and SARS-CoV-2 (COVID-19) and Respiratory syncytial virus RNAOrdered By: Yordan Vanegas on 11-06-2024 SARS-CoV-2 (COVID-19) RNA MICHELLE+probe Ql (Unsp spec) [facility] Ketones Test strip Ql (U)Ord ered By: Yordan Vanegas on 11-06-2024 Ketones Ql (U) Negative Negative [facility] L. pneumophila Ag Ql (U)Orde red By: Yordan Vanegas on 11-06-2024 Legionella Antigen [facility] L501.4021on 11-06-2024 Trop T High Sen 7 ng/L Normal <=14 [facility] Comment on above: Performed By: #### L 501.4021 #### [facility] [address] [place], [place], [address] Laboratory - Chemistry and C hemistry - challengeOrdered By: Yordan Vanegas on 11-06-2024 AST [Catalytic activity/Vol] 26 U/L <32 [facility] Lymphocytes Auto (Unsp spec) [#/Vol]Ordered By: Yordan Vanegas on 11-06-2024 Lymphocytes (Bld) [#/Vol] 2.98 10*3/uL 0.83-4.51 [facility] Lymphocytes/100 WBC Auto (Un sp spec)Ordered By: Yordan Vanegas on 11-06-2024 Lymphocytes/100 WBC (Bld) 14.8 % Low 19-41 [facility] M100.678on 11-06-2024 M100.678 Pending SARS-CoV-2 (COVID 19) Negative INFLUENZA A Negative INFLUENZA B Negative RSV PCR Negative Normal [facility] Comment on above: Performed By: #### M 100.678 #### [facility] [address] [place], [address] MCV (mean corpuscular volume ) determinationOrdered By: Yordan Vanegas on 11-06-2024 MCV (RBC) [Entitic vol] 81.5 fL 81-99 [facility] Mean corpuscular hemoglobin (MCH) determinationOrdered By: Yordan Vanegas on 11-06-2024 MCH (RBC) [Entitic mass] 28.2 pg 27.0-32.0 [facility] Mean corpuscular hemoglobin concentration (MCHC) determinationOrdered By: Yordan Vanegas on 11-06-2024 MCHC (RBC) [Mass/Vol] 34.6 g/dL 32-36 [facility] Mean platelet volume determi nationOrdered By: Yordan Vanegas on 11-06-2024 Platelet mean volume (Bld) [Entitic vol] 9.6 fL 6.2-12.0 [facility] Microbial respiratory cultur eOrdered By: Yordan Vanegas on 11-06-2024 Microorganism identified Cx Nom (Unsp spec) Streptococcus pneumoniae Abnormal [facility] Microorganism identified Cx Nom (Unsp spec)Ordered By: Yordan Vanegas on 11-06-2024 Respiratory Culture Streptococcus pneumoniae Abnormal [facility] Microscopic analysis of urin e for red blood cells (RBC)Ordered By: Yordan Vanegas on 11-06-2024 Microscopic analysis of urine for red blood cells (RBC) 0 SEEN /hpf 0-5 [facility] Urine RBC 0 SEEN /hpf 0-5 [facility] Monocyte percentageOrdered B y: Yordan Vanegas on 11-06-2024 Monocytes/100 WBC (Bld) 6.4 % 0-10 [facility] Mucus LM Ql (Urine sed)Order ed By: Yordan Vanegas on 11-06-2024 Mucus Ql (Urine sed) 0 SEEN /hpf [facility] Neutrophil percentageOrdered By: Yordan Vanegas on 11-06-2024 Neutrophils/100 WBC (Bld) 77.6 % High 47-70 [facility] Nitrite Test strip Ql (U)Ord ered By: Yordan Vanegas on 11-06-2024 Nitrite Ql (U) Negative Negative [facility] No Panel InformationOrdered By: Yordan Vanegas on 11-06-2024 Troponin T High Sensitivity 7 ng/L <14 [facility] Nucleated red blood cell per centageOrdered By: Yordan Vanegas on 11-06-2024 Nucleated RBC/100 WBC (Bld) [Ratio] 0 % 0-5 [facility] Platelet countOrdered By: Gregory Vanegas on 11-06-2024 Platelets (Bld) [#/Vol] 536 10*3/uL High 150-450 [facility] Potassium (Unsp spec) [Mass/ Vol]Ordered By: Yordan Vanegas on 11-06-2024 Potassium [Moles/Vol] 3.7 mmol/L 3.3-5.1 [facility] Potassium measurement (mass/ volume)Ordered By: Yordan Vanegas on 11-06-2024 Potassium (Unsp spec) [Mass/Vol] 3.7 mmol/L 3.3-5.1 [facility] Protein Test strip Ql (U)Ord ered By: Yordan Vanegas on 11-06-2024 Protein Ql (U) Negative Negative [facility] RBC Auto (Bld) [#/Vol]Ordere d By: Yordan Vanegas on 11-06-2024 RBC (Bld) [#/Vol] 4.65 10*6/uL 4.2-5.4 [facility] Serum creatinine measurement (mass/volume)Ordered By: Yordan Vanegas on 11-06-2024 Creatinine [Mass/Vol] 0.77 mg/dL 0.70-1.20 [facility] Serum globulin measurementOr dered By: Yordan Vanegas on 11-06-2024 Globulin (S) [Mass/Vol] 2.7 g/dL 2.2-4.2 [facility] Serum glucose measurement (m ass/volume)Ordered By: Yordan Vanegas on 11-06-2024 Glucose [Mass/Vol] 139 mg/dL High 70-99 [facility] Serum or plasma alanine ruby otransferase (ALT) measurementOrdered By: Yordan Vanegas on 11-06-2024 ALT [Catalytic activity/Vol] 21 U/L <35 [facility] Serum or plasma albumin sanford urement (mass/volume)Ordered By: Yordan Vanegas on 11-06-2024 Albumin [Mass/Vol] 4.2 g/dL 3.5-5.0 [facility] Serum or plasma albumin/glob ulin mass ratioOrdered By: Yordan Vanegas on 11-06-2024 Albumin/Globulin [Mass ratio] 1.5 {ratio} 0.9-2.4 [facility] Serum or plasma alkaline neftali sphatase measurementOrdered By: Yordan Vanegas on 11-06-2024 ALP [Catalytic activity/Vol] 94 U/L 35-104 [facility] Serum or plasma calcium sanford urement (mass/volume)Ordered By: Yordan Vanegas on 11-06-2024 Calcium [Mass/Vol] 9.4 mg/dL 7.6-11.0 [facility] Serum or plasma urea nitroge n measurement (mass/volume)Ordered By: Yordan Vanegas on 11-06-2024 Urea nitrogen [Mass/Vol] 12 mg/dL 4-19 [facility] Sodium levelOrdered By: Jeferson Vanegas on 11-06-2024 Sodium [Moles/Vol] 140 mmol/L 133-145 [facility] Squamous epithelial cells de tection in urine sediment by light microscopyOrdered By: Yordan Vanegas on 11-06-2024 Epithelial cells.squamous LM Ql (Urine sed) 0 SEEN /hpf 5-10 [facility] Streptococcus pneumoniae ant igen assayOrdered By: Yordan Vanegas on 11-06-2024 Streptococcus pneumoniae Antigen (M [facility] Total proteinOrdered By: Frantz Vanegas on 11-06-2024 Protein [Mass/Vol] 6.9 g/dL 5.9-8.4 [facility] Urinalysis, Completeon 11-06 RBC 0 SEEN Normal 0-5 [facility] Comment on above: Order Comment: CLEAN CATCH Performed By: #### L 400.0001 #### [facility] [address] [place], [address] WBC 0-5 SEEN Normal 0-5 [facility] Comment on above: Order Comment: CLEAN CATCH Performed By: #### L 400.0001 #### [facility] [address] [place], [address] BACTERIA 0 SEEN Normal None Seen [facility] Comment on above: Order Comment: CLEAN CATCH Performed By: #### L 400.0001 #### [facility] [address] [place], [address] EPI,SQUAMOUS 0 SEEN Normal 5-10 [facility] Comment on above: Order Comment: CLEAN CATCH Performed By: #### L 400.0001 #### [facility] [address] [place], [address] Mucus Ql (Urine sed) 0 SEEN Normal [facility] Comment on above: Order Comment: CLEAN CATCH Performed By: #### L 400.0001 #### [facility] [address] [place], [address] Urine Legionella pneumophila antigen detectionOrdered By: Yordan Vanegas on 11-06-2024 L. pneumophila Ag Ql (U) [facility] Urine blood detectionOrdered By: Yordan Vanegas on 11-06-2024 Urine Occult Blood Negative Negative [facility] Urine clarityOrdered By: Frantz Vanegas on 11-06-2024 Clarity (U) Clear Clear [facility] Urine color determinationOrd ered By: Yordan Vanegas on 11-06-2024 Color (U) Yellow Yellow [facility] Urine glucose detectionOrder ed By: Yordan Vanegas on 11-06-2024 Glucose Ql (U) Normal mg/dl Normal [facility] Urine leukocyte esterase det ection by dipstickOrdered By: Yordan Vanegas on 11-06-2024 Leukocyte esterase Test strip Ql (U) Negative Negative [facility] Urine pHOrdered By: Yordan carranza on 11-06-2024 pH (U) 8.0 [pH] 5.0 - 8.0 [facility] Urine sediment bacteria coun t by microscopy (number/high power field)Ordered By: Yordan Vanegas on 11-06-2024 Bacteria LM.HPF (Urine sed) [#/Area] 0 /[HPF] None Seen [facility] Urine specific gravity measu rementOrdered By: Yordan Katzehne on 11-06-2024 Specific gravity (U) [Rel density] 1.010 1.002-1.030 [facility] Urine urobilinogen measureme ntOrdered By: Yordan Guilherme on 11-06-2024 Urobilinogen Ql (U) Normal mg/dl Normal [facility] Urobilinogen Ql (U)Ordered B y: Yordan Vanegas on 11-06-2024 Urine Urobilinogen Normal mg/dl Normal [facility] White blood cell (WBC) count Ordered By: Yordan Vanegas on 11-06-2024 WBC (Bld) [#/Vol] 20.2 10*3/uL High 4.4-11.0 [facility] White blood cell countOrdere d By: Yordan Guilherme on 11-06-2024 Urine WBC 0-5 SEEN /hpf 0-5 [facility] White blood cell count 0-5 SEEN /hpf 0-5 [facility] Pulmonary Visit Reporton Pulmonary Visit Report [facility] [place] [address] [place] [address] OFFICE VISIT Date of Service: 11/01/24 MR#: [id number] Acct: [id number] Name: OFE GIMENEZ Rep #: [id number] : 1975 Provider: Patience Del Real NP Age/Sex: 49/F [facility] Status: Signed Assessment and Plan Assessment and [...] shortness of breath. Dr. Vazquez is her medical science liaison through [facility] and she (more content not included)... Normal [facility] Chest WITH Contraston 2024 Chest WITH Contrast [facility] Imaging Services [address] [place] [address] Chest WITH Contrast MR#: [id number] Acct: [id number] Name: OFE GIMENEZ Rep #: [id number] : 1975 F 49 From: Luis doherty MD PCP: Dr. Yarelis Fitzpatrick, DO Status: REG CLI Study: Chest WITH Contrast Date of Exam: 10/15/24 Exam# [id number] Ordering Dr: Kimberly Jacobson HEALTH NURSE-C PROCEDURE: CHEST WITH CONTRAST REASON FOR EXAM: [...] use of iterative reconstruction technique). Reading Location: [id number] CC: DARRYN Jacobson; Dr. Yarelis Fitzpatrick DO Funds Development Director: Signed Normal [facility] Respiratory Cultureon 2024 RESPC Streptococcus pneumo [...] S Penicillin Islt CELENA <=0.06 S Normal [facility] Comment on above: Performed By: #### M 100.4240, M100.1999 #### [facility] [address] [place], [address] Gram Stainon 09-27-2024 GS Acceptable Specimen? Yes (<25 Epithelial cells per/lpf) Gram Stain 2+ Gram positive cocci Rare Gram positive rods 1+ White Blood Cells Normal [facility] Comment on above: Performed By: #### M 100.2400, M100.1999 #### [facility] [address] [place], [place], [id number] Gram stainOrdered By: NAREN Del Real on 09-27-2024 Microscopic observation Gram stain Nom (Unsp spec) [facility] Microbial respiratory cultur eOrdered By: NAREN Del Real on 09-27-2024 Microorganism identified Cx Nom (Unsp spec) Streptococcus pneumoniae Abnormal [facility] Microorganism identified Cx Nom (Unsp spec)Ordered By: NAREN Del Real on 09-27-2024 Respiratory Culture Streptococcus pneumoniae Abnormal [facility] AFP, Tumor Markeron 09-06-19 25 AFP TUMOR OSVALDO 3.1 ng/mL Normal 0.0-9.2 [facility] Comment on above: Order Comment: WILLIAM COX ORDERED QTFNALL OTHER LAB HEALTH NURSE.CGRISHIN Result Comment: [email or web address] Electrochemiluminescence Immunoassay (ECLIA) Values obtained with different assay methods or kits cannot be used interchangeably. Results cannot be interpreted as absolute evidence of the presence or absence of malignant disease. This test is not interpretable in females. Performed at: [address] [id number] [employer]: Ramsey Oleary PhD, Phone: [phone] Performed By: #### M 100.2400, M100.1999 #### [facility] [address] [facility] [place], [address] HCG BETA-SUBUNIT QUANT.on HCG B-SUBUNIT 2 mIU/mL Normal . [facility] Comment on above: Order Comment: DX ME DIASTINAL MASSNP.LRUFENER ORDERED QTFNALL OTHER LAB HEALTH NURSE.CGRAHAM Result Comment: Fema le (Non-) 0 - 5 (Postmenopausal) 0 - 8 Female () Weeks of Gestation 3 6 - 71 4 10 - 750 5 116 - 8786 6 326 - 90363 7 [phone] -[phone] 8 [phone] -[phone] 9 00282 -289359 10 09757 -955774 12 44181 -684203 14 75631 - 34965 15 90499 - 22514 16 9586 - 56558 17 9455 - 35289 18 [phone] - [phone] Courtney ECLIA methodology Performed at: [address] [id number] [employer]: Ramsey Oleary PhD, Phone: [phone] Performed By: #### M 100.2400, #### [facility] [address] [place], [address] Quantiferon TB-Gold+on 09-06 QFT MITOGEN KINGA > 10.00 Normal . [facility] Comment on above: Order Comment: HEALTH NURSE.LR UFENER ORDERED QTFNALL OTHER LAB HEALTH NURSE.CGRAHAMN Performed By: #### M 100.2400, #### [facility] [address] [place], [address] QFT NIL VALUE 0.06 IU/mL Normal . [facility] Comment on above: Order Comment: HEALTH NURSE.LR UFENER ORDERED QTFNALL OTHER LAB HEALTH NURSE.CGRAHAMN Performed By: #### M 100.2400, #### [facility] [address] [place], [address] QFT TB GOLD+ Comment Normal . [facility] Comment on above: Order Comment: HEALTH NURSE.LR UFENER ORDERED QTFNALL OTHER LAB HEALTH NURSE.CGRAHAMN Result Comment: Jesus tiFERON-TB Gold Plus is [...] the test. Performed By: #### M 100.2400, #### [facility] [address] [place], [address] QFT TB POS CRIT Negative Normal Negative [facility] Comment on above: Order Comment: HEALTH NURSE.LR UFCHUCKIE ORDERED QTFNALL OTHER LAB HEALTH NURSE.CGRAHAMN Result Comment: No r esponse to M [...] immunoassay methodology Performed By: #### M 100.2400, M1.1999 #### [facility] [address] [place], [address] QFT TB1+ AG KINGA 0.07 IU/mL Normal . [facility] Comment on above: Order Comment: HEALTH NURSE.LR BRIDGETTECHUCKIE ORDERED QTFNALL OTHER LAB HEALTH NURSE.CGRAHAMN Performed By: #### M 100.2400, M1 #### [facility] [address] [place], [address] QFT TB2+ AG KINGA 0.06 IU/mL Normal . [facility] Comment on above: Order Comment: HEALTH NURSE.LR BIRDGETTECHUCKIE ORDERED QTFNALL OTHER LAB HEALTH NURSE.CGRAHAMN Performed By: #### M 100.2400, M1 #### [facility] [address] [place], [address] Absolute lymphocyte countOrd ered By: NAREN Del Real on 09-04-2024 Lymphocytes Auto (Unsp spec) [#/Vol] 2.99 10*3/uL 0.83-4.51 [facility] Absolute neutrophil countOrd ered By: NAREN Del Real on 09-04-2024 Neutrophils (Bld) [#/Vol] 4.1 10*3/uL 2.0-7.7 [facility] Alpha fetoprotein measuremen t as tumor markerOrdered By: NAREN Del Real on 09-04-2024 Tumor Marker Alpha Fetoprotein 3.1 ng/mL 0.0-9.2 [facility] Comment on above: [facility] El ectrochemiluminescence Immunoassay(ECLIA)Values obtained with different assay methods or kits cannotbe used interchangeably. Results cannot be interpreted asabsolute evidence of the presence or absence of malignantdisease.This test is not interpretable in females.Performed at: [address] [id number] Director: Ramsey Oleary PhD, Phone: [phone] Automated blood erythrocyte countOrdered By: NAREN Patience Nasima on 09-04-2024 RBC (Bld) [#/Vol] 4.45 10*6/uL Normal 4.2-5.4 [facility] Comment on above: Order Comment: WILLIAM COX ORDERED QTFN ALL OTHER LAB HEALTH NURSE.CGRAHAM Performed By: #### L 500.2500, L100.0100, L504.2610, L3100.5140, L100.9950, L3300.0700, L501.6710, L500.3400, L3400.8000 #### [facility] [address] [facility] [place], [place], [id number] Automated blood hematocrit ( percentage)Ordered By: NAERN Del Real on 09-04-2024 Hematocrit (Bld) [Volume fraction] 36.8 % Low 37-47 [facility] Comment on above: Order Comment: WILLIAM COX ORDERED QTFN ALL OTHER LAB HEALTH NURSE.CGRAHAM Performed By: #### L 500.2500, L100.0100, L504.2610, L3100.5140, L100.9950, L3300.0700, L501.6710, L500.3400, L3400.8000 #### [facility] [address] [facility] [place], [place], [id number] Automated lymphocyte count a s percentage of total leukocytesOrdered By: NAREN Del Real on 09-04-2024 Lymphocytes/100 WBC (Bld) 38.3 % Normal 19-41 [facility] Comment on above: Order Comment: HEALTH NURSE.LR UFENER ORDERED QTFN ALL OTHER LAB HEALTH NURSE.CGRAHAM Performed By: #### L 500.2500, L100.0100, L504.2610, L3100.5140, L100.9950, L3300.0700, L501.6710, L500.3400, L3400.8000 #### [facility] [address] [place], [address] Lymphocytes/100 WBC Auto (Unsp spec) 38.3 % - [facility] Basic Metabolic Profile (BMP )on 09-04-2024 BUN/CRE 11.1 RATIO Normal -20 [facility] Comment on above: Order Comment: HEALTH NURSE.LR UFENER ORDERED QTFNALL OTHER LAB HEALTH NURSE.CGRAHAM1 Performed By: #### M 100.2400, #### [facility] [address] [place], [address] CA,Total 8.8 mg/dL Normal 8.5-10.1 [facility] Comment on above: Order Comment: HEALTH NURSE.LR UFENER ORDERED QTFNALL OTHER LAB HEALTH NURSE.CGRAHAM1 Performed By: #### M 100.2400, .1999 #### [facility] [address] [place], [address] EST GFR - AA 96 mL/min Normal >60 [facility] Comment on above: Order Comment: HEALTH NURSE.LR UFENER ORDERED QTFNALL OTHER LAB HEALTH NURSE.CGRAHAM1 Result Comment: Afri can Nigerian GFR Calc Performed By: #### M 100.2400, M1.1999 #### [facility] [address] [place], [address] GAP 6 Normal 5-15 [facility] Comment on above: Order Comment: HEALTH NURSE.LR UFENER ORDERED QTFNALL OTHER LAB HEALTH NURSE.CGRAHAM1 Performed By: #### M 100.2400, M1.1999 #### [facility] [address] [place], [place], [address] Basophil percentageOrdered B y: NAREN Patience Del Real on 09-04-2024 Basophils/100 WBC (Bld) 1.2 % High 0-1 [facility] Comment on above: Order Comment: HEALTH NURSE.LR UFENER ORDERED QTFN ALL OTHER LAB HEALTH NURSE.CGRISHI Performed By: #### L 500.2500, L100.0100, L504.2610, L3100.5140, L100.9950, L3300.0700, L501.6710, L500.3400, L3400.8000 #### [facility] [address] [place], [place], [id number] Bilirubin directOrdered By: NAREN Del Real on 09-04-2024 Bilirubin.direct [Mass/Vol] mg/dL 0.00-0.30 [facility] Bilirubin, totalOrdered By: NAREN Del Real on 09-04-2024 Bilirubin [Mass/Vol] 0.30 mg/dL Normal 0.20-1.00 [facility] Comment on above: For patients on eltr ombopag therapy, use of Dimension Bandana TBIL is not recommended. Order Comment: HEALTH NURSE.LR UFENER ORDERED QTFNALL OTHER LAB HEALTH NURSE.KATHIE1 Result Comment: For patients on eltrombopag therapy, use of Dimension Bandana TBIL is not recommended. Performed By: #### M 100.2400, M100.2000 #### [facility] [address] [place], [place], [address] Bilirubin.direct [Mass/Vol]O rdered By: NAREN Del Real on 09-04-2024 Direct Bilirubin < 0.05 mg/dL 0.00-0.30 [facility] Blood urea nitrogen (BUN)/cr eatinine ratioOrdered By: NAREN Del Real on 09-04-2024 Urea nitrogen/Creatinine [Mass ratio] 11.1 mg/mg 10-20 [facility] C-reactive protein measureme nt by high sensitivity methodOrdered By: NAREN Del Real on 09-04-2024 C-Reactive Protein Extended Range 3.30 mg/L High 0.0-3.0 [facility] Comment on above: C-Reactive Protein ( CRP) provides useful information for thediagnosis, therapy and monitoring of inflammatory processesand associated diseases. For the evaluation of Relative Riskfor Cardiovascular Disease, a High Sensitivity CRP (HSCRP)should be ordered. C-reactive protein measurement by high sensitivity method 3.30 mg/L High 0.0-3.0 [facility] Comment on above: C-Reactive Protein ( CRP) provides useful information for thediagnosis, therapy and monitoring of inflammatory processesand associated diseases. For the evaluation of Relative Riskfor Cardiovascular Disease, a High Sensitivity CRP (HSCRP)should be ordered. CBC W/Diff, Automatedon 08-21 Absolute Lymph 2.99 X10 3/uL Normal 0.83-4.51 [facility] Comment on above: Order Comment: HEALTH NURSE.LR UFENER ORDERED QTFN ALL OTHER LAB HEALTH NURSE.CGRAHAM Performed By: #### L 500.2500, L100.0100, L504.2610, L3100.5140, L100.9950, L3300.0700, L501.6710, L500.3400, L3400.8000 #### [facility] [address] [facility] [place], [place], [id number] Absolute Neut 4.1 X10 3/uL Normal 2.0-7.7 [facility] Comment on above: Order Comment: HEALTH NURSE.LR UFENER ORDERED QTFN ALL OTHER LAB HEALTH NURSE.CGRAHAM Performed By: #### L 500.2500, L100.0100, L504.2610, L3100.5140, L100.9950, L3300.0700, L501.6710, L500.3400, L3400.8000 #### [facility] [address] [facility] [place], [place], [address] IG% 0.300 Normal 0.0-0.9 [facility] Comment on above: Order Comment: HEALTH NURSE.LR UFENER ORDERED QTFN ALL OTHER LAB HEALTH NURSE.CGRAHAM Result Comment: IG% - Immature Granulocytes (promyelocytes, myelocytes and metamyelocytes) > 1% indicates that a LEFT SHIFT is Present. Performed By: #### L 500.2500, L100.0100, L504.2610, L3100.5140, L100.9950, L3300.0700, L501.6710, L500.3400, L3400.8000 #### [facility] [address] [place], [address] Nucleated RBC (Bld) [#/Vol] 0 10*3/uL Normal 0-5 [facility] Comment on above: Order Comment: HEALTH NURSE.LR UFENER ORDERED QTFN ALL OTHER LAB HEALTH NURSE.CGRAHAM Performed By: #### L 500.2500, L100.0100, L504.2610, L3100.5140, L100.9950, L3300.0700, L501.6710, L500.3400, L3400.8000 #### [facility] [address] [place], [address] RDW SD 40.9 fl Normal 35.1-43.9 [facility] Comment on above: Order Comment: HEALTH NURSE.LR UFENER ORDERED QTFN ALL OTHER LAB HEALTH NURSE.CGRAHAM Performed By: #### L 500.2500, L100.0100, L504.2610, L3100.5140, L100.9950, L3300.0700, L501.6710, L500.3400, L3400.8000 #### [facility] [address] [place], [place], [address] CRPon 09-04-2024 C-REACTIVE PROT 3.30 mg/L High 0.0-3.0 [facility] Comment on above: Order Comment: HEALTH NURSE.LR UFENER ORDERED QTFNALL OTHER LAB HEALTH NURSE.CGRAHAM1 Result Comment: C-Re active Protein (CRP) provides useful information for the diagnosis, therapy and monitoring of inflammatory processes and associated diseases. For the evaluation of Relative Risk for Cardiovascular Disease, a High Sensitivity CRP (HSCRP) should be ordered. Performed By: #### M 100.2400, M100.2000 #### [facility] [address] [place], [place], [address] Carbon dioxide measurementOr dered By: NAREN Patience Del Real on 09-04-2024 CO2 [Moles/Vol] 30.0 mmol/L Normal 21.0-32.0 [facility] Comment on above: Order Comment: HEALTH NURSE.LR UFENER ORDERED QTFNALL OTHER LAB HEALTH NURSE.CGRAHAM1 Performed By: #### M 100.2400, M100.1999 #### [facility] [address] [place], [place], [address] Chloride measurementOrdered By: NAREN Patience Dovemanuel on 09-04-2024 Chloride [Moles/Vol] 105 mmol/L Normal 98-107 [facility] Comment on above: Order Comment: HEALTH NURSE.LR UFENER ORDERED QTFNALL OTHER LAB HEALTH NURSE.CGRAHAM1 Performed By: #### M 100.2400, M100.1999 #### [facility] [address] [place], [place], [address] Eosinophil percentageOrdered By: NAREN Patience Dovemanuel on 09-04-2024 Eosinophils/100 WBC (Bld) 0.8 % Normal 0-5 [facility] Comment on above: Order Comment: HEALTH NURSE.LR UFENER ORDERED QTFN ALL OTHER LAB HEALTH NURSE.CGRAHAM Performed By: #### L 500.2500, L100.0100, L504.2610, L3100.5140, L100.9950, L3300.0700, L501.6710, L500.3400, L3400.8000 #### [facility] [address] [place], [place], [address] Erythrocyte distribution wid th ratioOrdered By: NAREN Patience Dovemanuel on 09-04-2024 Erythrocyte distribution width (RBC) [Ratio] 13.6 % Normal 11.6-14.6 [facility] Comment on above: Order Comment: HEALTH NURSE.LR UFENER ORDERED QTFN ALL OTHER LAB HEALTH NURSE.CGRAHAM Performed By: #### L 500.2500, L100.0100, L504.2610, L3100.5140, L100.9950, L3300.0700, L501.6710, L500.3400, L3400.8000 #### [facility] [address] [place], [address] Erythrocyte distribution wid th standard deviationOrdered By: NAREN Dle Real on 09-04-2024 Erythrocyte distribution width (RBC) [Entitic vol] 40.9 fL 35.1-43.9 [facility] Erythrocyte distribution width (RBC) [Ratio] 40.9 fl 35.1-43.9 [facility] Estimated glomerular filtrat ion rate (GFR) AmericanOrdered By: NAREN Del Real on 09-04-2024 Estimated GFR (MDRD) Amer 96 mL/min >60 [facility] Comment on above: GFR Calc Glomerular filtration rate ( GFR) estimationOrdered By: NAREN Del Real on 09-04-2024 GFR/1.73 sq M.predicted among non-blacks MDRD (S/P/Bld) [Vol rate/Area] 79 mL/min/{1.73_m2} Normal >60 [facility] Comment on above: Non- GFR Calc Order Comment: HEALTH NURSE.LR UFENER ORDERED QTFNALL OTHER LAB HEALTH NURSE.CGRAHAM1 Result Comment: Non- GFR Calc Performed By: #### M 100.2400, M100.1999 #### [facility] [address] [place], [place], [address] Estimated GFR (MDRD) Non-Af Amer 79 mL/min >60 [facility] Comment on above: Non- GFR Calc Glucose measurementOrdered B y: NAREN Del Real on 09-04-2024 Glucose [Mass/Vol] 137 mg/dL High 74-106 [facility] Comment on above: Fasting Glucose resu lt greater than or equal to 126 mg/dL suggests DIABETES MELLITUS per A.D.A. criteria. Order Comment: HEALTH NURSE.LR UFENER ORDERED QTFNALL OTHER LAB HEALTH NURSE.CGRAHAM1 Result Comment: Fast ing Glucose result greater than or equal to 126 mg/dL suggests DIABETES MELLITUS per A.D.A. criteria. Performed By: #### M 100.2400, M100.2000 #### [facility] [address] [place], [place], [address] HCG, beta, subunitOrdered By : NAREN Del Real on 09-04-2024 HCG Beta Subunit 2 mIU/mL . [facility] Comment on above: Female (Non- ) 0 - 5 (Postmenopausal) 0 - 8 Female () Weeks of Gestation 3 6 - 71 4 10 - 750 5 217 - 7138 6 158 - 12700 7 7980 -613515 8 54157 -961451 9 57466 -679579 10 85146 -107697 12 37064 -530652 14 78450 - 18559 15 21231 - 93173 16 6277 - 36694 17 0342 - 44988 18 4086 - 38352Roche ECLIA methodologyPerformed at: [facility] [address] [id number] Director: Ramsey Oleary PhD, Phone: [phone] HCG, beta, subunit 2 mIU/mL . [facility] Comment on above: Female (Non- ) 0 - 5 (Postmenopausal) 0 - 8 Female () Weeks of Gestation 3 6 - 71 4 10 - 750 5 217 - 7138 6 158 - 47530 7 9467 -423143 8 14614 -547531 9 07804 -228546 10 31739 -227977 12 02810 -442562 14 41321 - 09445 15 19295 - 09971 16 6901 - 28142 17 2389 - 16051 18 4217 - 31916Roche ECLIA methodologyPerformed at: [facility] [address] [id number] Director: Ramsey Oleary PhD, Phone: [phone] Hemoglobin (Reticulocytes) [ Entitic mass]Ordered By: NAREN Del Real on 09-04-2024 Reticulocyte Hemoglobin Equivalent 31.5 pg 30-35 [facility] Hemoglobin measurementOrdere d By: NAREN Del Real on 09-04-2024 Hemoglobin (Bld) [Mass/Vol] 12.4 g/dL Normal 12.0-15.0 [facility] Comment on above: Order Comment: HEALTH NURSE.LR UFENER ORDERED QTFN ALL OTHER LAB HEALTH NURSE.CGRAHAM Performed By: #### L 500.2500, L100.0100, L504.2610, L3100.5140, L100.9950, L3300.0700, L501.6710, L500.3400, L3400.8000 #### [facility] [address] [place], [address] Immature granulocytes/100 WB C Auto (Bld)Ordered By: NAREN Del Real on 09-04-2024 Immature granulocytes/100 WBC (Bld) 0.300 % 0.0-0.9 [facility] Comment on above: IG% - Immature Granu locytes (promyelocytes, myelocytes and metamyelocytes) > 1% indicates that a LEFT SHIFT is Present. Immature reticulocyte fracti onOrdered By: NAREN Del Real on 09-04-2024 Immature Reticulocyte Fraction 1.10 % Low 3.00-15.90 [facility] LDHon 09-04-2024 LDH 164 U/L Normal 84-246 [facility] Comment on above: Order Comment: HEALTH NURSE.LR UFENER ORDERED QTFNALL OTHER LAB HEALTH NURSE.CGRAHAM1 Performed By: #### M 100.2400, M1 #### [facility] [address] [facility] [place], [address] Lactate dehydrogenase (LDH) measurementOrdered By: NAREN Del Real on 09-04-2024 LDH [Catalytic activity/Vol] 164 U/L 84-246 [facility] Liver Profileon 09-04-2024 ALK P 106 U/L Normal 45-117 [facility] Comment on above: Order Comment: HEALTH NURSE.LR UFENER ORDERED QTFNALL OTHER LAB HEALTH NURSE.CGRAHAM1 Performed By: #### M 100.2400, M1.1999 #### [facility] [address] [place], [address] D BILI < 0.05 Normal 0.00-0.30 [facility] Comment on above: Order Comment: HEALTH NURSE.LR UFENER ORDERED QTFNALL OTHER LAB HEALTH NURSE.CGRAHAM1 Performed By: #### M 100.2400, M1.1999 #### [facility] [address] [place], [address] T PROT 6.8 g/dL Normal 6.4-8.2 [facility] Comment on above: Order Comment: HEALTH NURSE.LR UFENER ORDERED QTFNALL OTHER LAB HEALTH NURSE.CGRAHAM1 Performed By: #### M 100.2400, M1.1999 #### [facility] [address] [place], [address] Liver ProfileOrdered By: NAREN Del Real on 09-04-2024 AST [Catalytic activity/Vol] 17 U/L Normal 15-37 [facility] Comment on above: Order Comment: HEALTH NURSE.CHAD COX ORDERED QTFNALL OTHER LAB HEALTH NURSE.CGRAHAM1 Performed By: #### M 100.2400, #### [facility] [address] [place], [address] Lymphocytes Auto (Unsp spec) [#/Vol]Ordered By: NAREN Del Real on 09-04-2024 Lymphocytes (Bld) [#/Vol] 2.99 10*3/uL 0.83-4.51 [facility] M. tuberculosis tuberculin s gildardo IFN-g Ql (Bld)Ordered By: NAREN Del Real on 09-04-2024 TB Test (QFT) Antigen 1 0.07 IU/mL . [facility] MCV (mean corpuscular volume ) determinationOrdered By: NAREN Del Real on 09-04-2024 MCV (RBC) [Entitic vol] 82.7 fL Normal 81-99 [facility] Comment on above: Order Comment: HEALTH NURSE.CHAD COX ORDERED QTFN ALL OTHER LAB HEALTH NURSE.CGRAHAM Performed By: #### L 500.2500, L100.0100, L504.2610, L3100.5140, L100.9950, L3300.0700, L501.6710, L500.3400, L3400.8000 #### [facility] [address] [place], [place], [address] Mean corpuscular hemoglobin (MCH) determinationOrdered By: NAREN Del Real on 09-04-2024 MCH (RBC) [Entitic mass] 27.9 pg Normal 27.0-32.0 [facility] Comment on above: Order Comment: HEALTH NURSE.LR UFENER ORDERED QTFN ALL OTHER LAB HEALTH NURSE.CGRAHAM Performed By: #### L 500.2500, L100.0100, L504.2610, L3100.5140, L100.9950, L3300.0700, L501.6710, L500.3400, L3400.8000 #### [facility] [address] [place], [place], [address] Mean corpuscular hemoglobin concentration (MCHC) determinationOrdered By: NAREN Del Real on 09-04-2024 MCHC (RBC) [Mass/Vol] 33.7 g/dL Normal 32-36 [facility] Comment on above: Order Comment: HEALTH NURSE.LR UFENER ORDERED QTFN ALL OTHER LAB HEALTH NURSE.CGRAHAM Performed By: #### L 500.2500, L100.0100, L504.2610, L3100.5140, L100.9950, L3300.0700, L501.6710, L500.3400, L3400.8000 #### [facility] [address] [place], [place], [id number] Mean platelet volume determi nationOrdered By: NAREN Del Real on 09-04-2024 Platelet mean volume (Bld) [Entitic vol] 9.0 fL Normal 6.2-12.0 [facility] Comment on above: Order Comment: HEALTH NURSE.LR UFENER ORDERED QTFN ALL OTHER LAB HEALTH NURSE.CGRAHAM Performed By: #### L 500.2500, L100.0100, L504.2610, L3100.5140, L100.9950, L3300.0700, L501.6710, L500.3400, L3400.8000 #### [facility] [address] [place], [address] Monocyte percentageOrdered B y: NAREN Patience Dovemanuel on 09-04-2024 Monocytes/100 WBC (Bld) 7.0 % Normal 0-10 [facility] Comment on above: Order Comment: HEALTH NURSE.CHAD COX ORDERED QTFN ALL OTHER LAB HEALTH NURSE.CGRAHAM Performed By: #### L 500.2500, L100.0100, L504.2610, L3100.5140, L100.9950, L3300.0700, L501.6710, L500.3400, L3400.8000 #### [facility] [address] [facility] [place], [address] Neutrophil percentageOrdered By: NAREN Del Real on 09-04-2024 Neutrophils/100 WBC (Bld) 52.4 % Normal 47-70 [facility] Comment on above: Order Comment: HEALTH NURSE.CHAD COX ORDERED QTFN ALL OTHER LAB HEALTH NURSE.CGRAHAM Performed By: #### L 500.2500, L100.0100, L504.2610, L3100.5140, L100.9950, L3300.0700, L501.6710, L500.3400, L3400.8000 #### [facility] [address] [facility] [place], [address] Nucleated red blood cell per centageOrdered By: NAREN Del Real on 09-04-2024 Nucleated RBC/100 WBC (Bld) [Ratio] 0 % 0-5 [facility] Platelet countOrdered By: NAREN Del Real on 09-04-2024 Platelets (Bld) [#/Vol] 513 10*3/uL High 150-450 [facility] Comment on above: Order Comment: HEALTH NURSE.CHAD COX ORDERED QTFN ALL OTHER LAB HEALTH NURSE.CGRAHAM Performed By: #### L 500.2500, L100.0100, L504.2610, L3100.5140, L100.9950, L3300.0700, L501.6710, L500.3400, L3400.8000 #### [facility] [address] [place], [place], [address] Potassium measurementOrdered By: NAREN Del Real on 09-04-2024 Potassium [Moles/Vol] 3.6 mmol/L Normal 3.5-5.1 [facility] Comment on above: Order Comment: WILLIAM COX ORDERED QTFNALL OTHER LAB HEALTH NURSE.CGRAHAM1 Performed By: #### M 100.2400, M100.2000 #### [facility] [address] [place], [place], [address] Qualitative QuantiFERON-TB g old in tube testOrdered By: NAREN Del Real on 09-04-2024 M. tuberculosis tuberculin stim IFN-g Ql (Bld) 0.07 IU/mL . [facility] Quantiferon-TB Gold Plus moise tOrdered By: NAREN Del Real on 09-04-2024 TB Test (QFT) Comment . [facility] Comment on above: QuantiFERON-TB Gold Plus is [...] Test (QFT) Antigen 2 0.06 IU/mL . [facility] TB Test (QFT) Mitogen > 10.00 IU/mL . [facility] TB Test (QFT) Nil 0.06 IU/mL . [facility] TB Test (QFT) Positive Criteria Negative Negative [facility] Comment on above: No response to M [...] 09-04-2024 IM RET FRACTION 1.10 Low 3.00-15.90 [facility] Comment on above: Order Comment: HEALTH NURSE.CHAD COX ORDERED QTFNALL OTHER LAB HEALTH NURSE.CGRAHAM Performed By: #### M 100.2400, M1.1999 #### [facility] [address] [place], [address] RET-HE 31.5 pg Normal 30-35 [facility] Comment on above: Order Comment: HEALTH NURSE.CHAD COX ORDERED QTFNALL OTHER LAB HEALTH NURSE.CGRISHI Performed By: #### M 100.2400, M1.1999 #### [facility] [address] [place], [address] Retic Count 0.46 Low 0.5-1.5 [facility] Comment on above: Order Comment: HEALTH NURSE.CHAD COX ORDERED QTFNALL OTHER LAB HEALTH NURSE.CGRISHI Performed By: #### M 100.2400, M1.1999 #### [facility] [address] [facility] [place], [address] Reticulocyte hemoglobin equi valent (RET-He) measurementOrdered By: NAREN Del Real on 09-04-2024 Hemoglobin (Reticulocytes) [Entitic mass] 31.5 pg 30-35 [facility] Reticulocytes Auto (Bld) [#/ Vol]Ordered By: NAREN Del Real on 09-04-2024 Reticulocyte Count 0.46 % Low 0.5-1.5 [facility] Reticulocytes/100 RBC (Bld) 0.46 % Low 0.5-1.5 [facility] Serum anion gap measurementO rdered By: NAREN Del Real on 09-04-2024 Anion gap [Moles/Vol] 6 mmol/L - [facility] Serum globulin measurementOr dered By: NAREN Del Real on 09-04-2024 Globulin (S) [Mass/Vol] 3.2 g/dL Normal 2.2-4.2 [facility] Comment on above: Order Comment: HEALTH NURSE.LR UFENER ORDERED QTFNALL OTHER LAB HEALTH NURSE.CGRAHAM1 Performed By: #### M 100.2400, M1 #### [facility] [address] [place], [address] Serum or plasma alanine ruby otransferase (ALT) measurementOrdered By: NAREN Del Real on 09-04-2024 ALT [Catalytic activity/Vol] 22 U/L Normal 13-56 [facility] Comment on above: Order Comment: HEALTH NURSE.LR UFENER ORDERED QTFNALL OTHER LAB HEALTH NURSE.CGRAHAM1 Performed By: #### M 100.2400, M1 #### [facility] [address] [place], [address] Serum or plasma albumin sanford urement (mass/volume)Ordered By: NAREN Del Real on 09-04-2024 Albumin [Mass/Vol] 3.6 g/dL Normal 3.2-5.0 [facility] Comment on above: Order Comment: HEALTH NURSE.LR UFENER ORDERED QTFNALL OTHER LAB HEALTH NURSE.CGRAHAM1 Performed By: #### M 100.2400, #### [facility] [address] [place], [place], [address] Serum or plasma alkaline neftali sphatase measurementOrdered By: NAREN Del Real on 09-04-2024 ALP [Catalytic activity/Vol] 106 U/L 45-117 [facility] Serum or plasma calcium sanford urement (mass/volume)Ordered By: NAREN Del Real on 09-04-2024 Calcium [Mass/Vol] 8.8 mg/dL 8.5-10.1 [facility] Serum or plasma creatinine m easurement (mass/volume)Ordered By: NAREN Del Real on 09-04-2024 Creatinine [Mass/Vol] 0.81 mg/dL Normal 0.55-1.02 [facility] Comment on above: The validity of the calculated GFR & GFRAA in patients over 70 years has not been determined. Clinical correlation is essential. Order Comment: HEALTH NURSE.LR UFENER ORDERED QTFNALL OTHER LAB HEALTH NURSE.CGRAHAM1 Result Comment: The validity of the calculated GFR GFRAA in patients over 70 years has not been determined. Clinical correlation is essential. Performed By: #### M 100.2400, #### [facility] [address] [place], [address] Serum or plasma urea nitroge n measurement (mass/volume)Ordered By: NAREN Del Real on 09-04-2024 Urea nitrogen [Mass/Vol] 9 mg/dL Normal 7-18 [facility] Comment on above: Order Comment: HEALTH NURSE.LR UFENER ORDERED QTFNALL OTHER LAB HEALTH NURSE.CGRAHAM1 Performed By: #### M 100.2400, #### [facility] [address] [facility] [place], [place], [id number] Sodium levelOrdered By: NAREN Del Real on 09-04-2024 Sodium [Moles/Vol] 140 mmol/L Normal 136-145 [facility] Comment on above: Order Comment: HEALTH NURSE.LR UFENER ORDERED QTFNALL OTHER LAB HEALTH NURSE.CGRAHAM1 Performed By: #### M 100.2400, #### [facility] [address] [facility] [place], [place], [id number] Total proteinOrdered By: NAREN Del Real on 09-04-2024 Protein [Mass/Vol] 6.8 g/dL 6.4-8.2 [facility] White blood cell (WBC) count Ordered By: NAREN Del Real on 09-04-2024 WBC (Bld) [#/Vol] 7.8 10*3/uL Normal 4.4-11.0 [facility] Comment on above: Order Comment: HEALTH NURSE.LR UFENER ORDERED QTFN ALL OTHER LAB HEALTH NURSE.CGRAHAM Performed By: #### L 500.2500, L100.0100, L504.2610, L3100.5140, L100.9950, L3300.0700, L501.6710, L500.3400, L3400.8000 #### [facility] [address] [place], [place], [address] PET/CT Tumor Base -Thigh Ini ton 09-03-2024 PET/CT Tumor Base -Thigh Init [facility] Imaging Services [address] [place] [address] PET/CT Tumor Base -Thigh Init MR#: [id number] Acct: [id number] Name: OFE GIMENEZ Rep #: [id number] : 1975 F 49 From: Umberto Phillips PCP: Dr. Yarelis Fitzpatrick, DO Status: REG CLI Study: PET/CT Tumor Base -Thigh Init Date of Exam: Exam# [id number] Ordering Dr: Patience Del Real HEALTH NURSE- C [id number] EXAMINATION: FDG-PET/CT ? INDICATIONS: 49-year-old female with [...] this report are calculated using the exclusive [employer]. (U.S. Patent No. [id number] [phone] 983 [phone] [phone] [place] patent [phone]). Standardization and correction of the FDG SUV metric via i[employer] technology allow for vendor non-specific objective quantitative examination comparison and optimization of the sensitivity and specificity of the FDG PET-CT examination. [email or web address]/[email or web address] Electronically Signed: Umberto Jones DO at 21:14 EST , CC: Dr. Yarelis Fitzpatrick DO; Patience Del Real NP Funds Development Director: Signed Normal [facility] Pulmonary Visit Reporton Pulmonary Visit Report [facility] [place] [address] [place] [address] OFFICE VISIT Date of Service: 08/30/24 MR#: [id number] Acct: [id number] Name: OFE GIMENEZ Rep #: [id number] : 1975 Provider: Patience Del Real NP Age/Sex: 49/F Location: [facility] [place].PMW Status: Signed Assessment and Plan Assessment and [...] she went in to see Kimberly on Monday morning. The patient reports that she was experiencing [...] chest tigh (more content not included)... Normal [facility] Chest WITH Contraston 2024 Chest WITH Contrast [facility] Imaging Services [address] [place] [address] Chest WITH Contrast MR#: [id number] Acct: [id number] Name: OFE GMIENEZ Rep #: [id number] : 1975 F 49 From: Kalpana flowers MD PCP: Dr. Yarelis Fitzpatrick, DO Status: REG CLI Study: Chest WITH Contrast Date of Exam: 08/28/24 Exam# [id number] Ordering Dr: Kimberly Jacobson HEALTH NURSE-C [id number] HISTORY: Hilar mass, pleural effusion, cxr 08/27 [...] CC: DARRYN Jacobson; Dr. Yarelis Fitzpatrick DO Funds Development Director: Signed Normal [facility] Absolute lymphocyte countOrd ered By: Kimberly Jacobson on 08-27-2024 Lymphocytes Auto (Unsp spec) [#/Vol] 2.69 10*3/uL 0.83-4.51 [facility] Absolute neutrophil countOrd ered By: Kimberly Jacobson on 08-27-2024 Neutrophils (Bld) [#/Vol] 17.4 10*3/uL High 2.0-7.7 [facility] Albumin to globulin ratioOrd ered By: Kimberly Jacobson on 08-27-2024 Albumin/Globulin [Mass ratio] 0.8 {ratio} Low 0.9-2.4 [facility] Bilirubin, totalOrdered By: Kimberly Jacobson on 08-27-2024 Bilirubin [Mass/Vol] 0.40 mg/dL 0.20-1.00 [facility] Comment on above: For patients on eltr ombopag therapy, use of Dimension Bandana TBIL is not recommended. Blood band neutrophil count as percentage of total leukocytesOrdered By: Kimberly Jacobson on 08-27-2024 Band form neutrophils/100 WBC (Bld) 1 % 0-5 [facility] Blood lymphocytes/100 leukoc ytesOrdered By: Kimberly Jacobson on 08-27-2024 Lymphocytes/100 WBC (Bld) 13 % Low 19-41 [facility] Blood monocytes/100 leukocyt esOrdered By: Kimberly Jacobson on 08-27-2024 Monocytes/100 WBC (Bld) 3 % 0-10 [facility] Blood segmented neutrophils/ 100 leukocytesOrdered By: Kimberlyzoë Jacobson on 08-27-2024 Segmented neutrophils/100 WBC (Bld) 83 % High 47-70 [facility] Blood urea nitrogen (BUN)/cr eatinine ratioOrdered By: Kimberly Jacobson on 08-27-2024 Urea nitrogen/Creatinine [Mass ratio] 16.1 mg/mg 10-20 [facility] C-reactive protein measureme nt by high sensitivity methodOrdered By: Kimberly Jacobson on 08-27-2024 C-Reactive Protein Extended Range 52.60 mg/L High 0.0-3.0 [facility] Comment on above: C-Reactive Protein ( CRP) provides useful information for thediagnosis, therapy and monitoring of inflammatory processesand associated diseases. For the evaluation of Relative Riskfor Cardiovascular Disease, a High Sensitivity CRP (HSCRP)should be ordered. C-reactive protein measurement by high sensitivity method 52.60 mg/L High 0.0-3.0 [facility] Comment on above: C-Reactive Protein ( CRP) provides useful information for thediagnosis, therapy and monitoring of inflammatory processesand associated diseases. For the evaluation of Relative Riskfor Cardiovascular Disease, a High Sensitivity CRP (HSCRP)should be ordered. CBC W/Diff, Automatedon Absolute Lymph 2.69 X10 3/uL Normal 0.83-4.51 [facility] Comment on above: Performed By: #### M 100.2400, M100.1999 #### [facility] [address] [place], [place], [address] Absolute Neut 17.4 X10 3/uL High 2.0-7.7 [facility] Comment on above: Performed By: #### M 100.2400, M1.1999 #### [facility] [address] [place], [place], [id number] CRPon 08-27-2024 C-REACTIVE PROT 52.60 mg/L High 0.0-3.0 [facility] Comment on above: Result Comment: C-Re active Protein (CRP) provides useful information for the diagnosis, therapy and monitoring of inflammatory processes and associated diseases. For the evaluation of Relative Risk for Cardiovascular Disease, a High Sensitivity CRP (HSCRP) should be ordered. Performed By: #### M 100.2400, M100.1999 #### [facility] [address] [facility] [place], [place], [id number] Carbon dioxide measurementOr dered By: Kimberly Jacobson on 08-27-2024 CO2 [Moles/Vol] 28.0 mmol/L 21.0-32.0 [facility] Cells counted Molgen (Bld/Ti ss) [#]Ordered By: Kimberly Jacobson on 08-27-2024 Differential Total Cells Counted 100 MANUAL DIFF [facility] Chest PA and Lateralon 08-27 Chest PA and Lateral [facility] [place] [facility] [address] [place] [address] Chest PA and Lateral MR#: [id number] Acct: [id number] Name: OFE GIMENEZ Rep #: [id number] : 1975 F 49 From: Jose Lyman MD PCP: Dr. Yarelis Fitzpatrick, DO Status: DEP AMB Study: Chest PA and Lateral Date of Exam: 08/27/24 Exam# [id number] Ordering Dr: Kimberly Jacobson HEALTH NURSE-C [id number] EXAM: XR CHEST, 2 VIEWS CLINICAL INDICATION: [...] , CC: DARRYN Jacobson; Dr. Yarelis Fitzpatrick, Funds Development Director: Signed Normal [facility] Chloride measurementOrdered By: Kimberly Jacobson on 08-27-2024 Chloride [Moles/Vol] 104 mmol/L 98-107 [facility] Comprehensive Metabolic Prof ilon 08-27-2024 Albumin [Mass/Vol] 3.4 g/dL Normal 3.2-5.0 [facility] Comment on above: Performed By: #### M 100.2400, #### [facility] [address] [place], [address] Albumin/Globulin [Mass ratio] 0.8 {ratio} Low 0.9-2.4 [facility] Comment on above: Performed By: #### M 100.2400, #### [facility] [address] [facility] [place], [address] ALK P 131 U/L High 45-117 [facility] Comment on above: Performed By: #### M 100.2400, #### [facility] [address] [place], [address] ALT [Catalytic activity/Vol] 82 U/L High 13-56 [facility] Comment on above: Performed By: #### M 100.2400, #### [facility] [address] [place], [address] AST [Catalytic activity/Vol] 74 U/L High 15-37 [facility] Comment on above: Performed By: #### M .2399, #### [facility] [address] [place], [address] Bilirubin [Mass/Vol] 0.40 mg/dL Normal 0.20-1.00 [facility] Comment on above: Result Comment: For patients on eltrombopag therapy, use of Dimension Bandana TBIL is not recommended. Performed By: #### M , #### [facility] [address] [place], [address] BUN/CRE 16.1 RATIO Normal 10-20 [facility] Comment on above: Performed By: #### M , #### [facility] [address] [place], [address] CA,Total 9.1 mg/dL Normal 8.5-10.1 [facility] Comment on above: Performed By: #### M , #### [facility] [address] [place], [address] Chloride [Moles/Vol] 104 mmol/L Normal 98-107 [facility] Comment on above: Performed By: #### M , #### [facility] [address] [place], [address] CO2 [Moles/Vol] 28.0 mmol/L Normal 21.0-32.0 [facility] Comment on above: Performed By: #### M 240, #### [facility] [address] [place], [address] Creatinine [Mass/Vol] 0.68 mg/dL Normal 0.55-1.02 [facility] Comment on above: Result Comment: The validity of the calculated GFR GFRAA in patients over 70 years has not been determined. Clinical correlation is essential. Performed By: #### M 100.2400, #### [facility] [address] [place], [address] EST GFR - AA 117 mL/min Normal >60 [facility] Comment on above: Result Comment: Afri can Nigerian GFR Calc Performed By: #### M 100.2400, #### [facility] [address] [place], [address] GAP 4 Low 5-15 [facility] Comment on above: Performed By: #### M 100.2400, #### [facility] [address] [place], [address] GFR/1.73 sq M.predicted among non-blacks MDRD (S/P/Bld) [Vol rate/Area] 96 mL/min/{1.73_m2} Normal >60 [facility] Comment on above: Result Comment: Non- GFR Calc Performed By: #### M 100.240, #### [facility] [address] [place], [address] Globulin (S) [Mass/Vol] 4.0 g/dL Normal 2.2-4.2 [facility] Comment on above: Performed By: #### M 100.2400, #### [facility] [address] [place], [address] Glucose [Mass/Vol] 129 mg/dL High 74-106 [facility] Comment on above: Result Comment: Fast ing Glucose result greater than or equal to 126 mg/dL suggests DIABETES MELLITUS per A.D.A. criteria. Performed By: #### M 100.2400, #### [facility] [address] [place], [address] Potassium [Moles/Vol] 4.1 mmol/L Normal 3.5-5.1 [facility] Comment on above: Performed By: #### M 100.2400, M100.1999 #### [facility] [address] [place], [address] Sodium [Moles/Vol] 136 mmol/L Normal 136-145 [facility] Comment on above: Performed By: #### M 100.2400, M1.1999 #### [facility] [address] [place], [address] T PROT 7.4 g/dL Normal 6.4-8.2 [facility] Comment on above: Performed By: #### M 100.2400, .1999 #### [facility] [address] [place], [address] Urea nitrogen [Mass/Vol] 11 mg/dL Normal 7-18 [facility] Comment on above: Performed By: #### M 100.2400, M1.1999 #### [facility] [address] [place], [address] Erythrocyte Sed Rateon 08-27 SED RATE 4 mm/hr Normal 0-30 [facility] Comment on above: Performed By: #### M 100.2400, .1999 #### [facility] [address] [place], [address] Erythrocyte distribution wid th ratioOrdered By: Kimberly Jacobson on 08-27-2024 Erythrocyte distribution width (RBC) [Ratio] 14.0 % 11.6-14.6 [facility] Erythrocyte distribution wid th standard deviationOrdered By: Kimberly Jacobson on 08-27-2024 Erythrocyte distribution width (RBC) [Entitic vol] 42.5 fL 35.1-43.9 [facility] Erythrocyte distribution width (RBC) [Ratio] 42.5 fl 35.1-43.9 [facility] Erythrocyte morphology asses smentOrdered By: Kimberly Jacobson on 08-27-2024 RBC morphology finding Nom (Bld) NORM C+C NORMAL NORM C&C [facility] Erythrocyte sedimentation ra teOrdered By: Kimberly Jacobson on 08-27-2024 ESR (Bld) [Velocity] 4 mm/h 0-30 [facility] Estimated glomerular filtrat ion rate (GFR) AmericanOrdered By: Kimberly Jacobson on 08-27-2024 Estimated GFR (MDRD) Amer 117 mL/min >60 [facility] Comment on above: GFR Calc Glomerular filtration rate ( GFR) estimationOrdered By: Kimberly Jacobson on 08-27-2024 Estimated GFR (MDRD) Non-Af Amer 96 mL/min >60 [facility] Comment on above: Non- GFR Calc GFR/1.73 sq M.predicted among non-blacks MDRD (S/P/Bld) [Vol rate/Area] 96 mL/min/{1.73_m2} >60 [facility] Comment on above: Non- GFR Calc Glucose measurementOrdered B y: Kimberly Jacobson on 08-27-2024 Glucose [Mass/Vol] 129 mg/dL High 74-106 [facility] Comment on above: Fasting Glucose resu lt greater than or equal to 126 mg/dL suggests DIABETES MELLITUS per A.D.A. criteria. Hematocrit Auto (Bld) [Volum e fraction]Ordered By: Kimberly Jacobson on 08-27-2024 Hematocrit (Bld) [Volume fraction] 41.9 % 37-47 [facility] Hemoglobin measurementOrdere d By: Kimberly Jacobson on 08-27-2024 Hemoglobin (Bld) [Mass/Vol] 13.9 g/dL 12.0-15.0 [facility] - Chemistry and C hemistry - challengeOrdered By: Kimberly Jacobson on 08-27-2024 AST [Catalytic activity/Vol] 74 U/L High 15-37 [facility] Lymphocytes Auto (Unsp spec) [#/Vol]Ordered By: Kimberly Jacobson on 08-27-2024 Lymphocytes (Bld) [#/Vol] 2.69 10*3/uL 0.83-4.51 [facility] MCV (mean corpuscular volume ) determinationOrdered By: Kimberly Jacobson on 08-27-2024 MCV (RBC) [Entitic vol] 83.3 fL 81-99 [facility] Mean corpuscular hemoglobin (MCH) determinationOrdered By: Kimberly Jacobson on 08-27-2024 MCH (RBC) [Entitic mass] 27.6 pg 27.0-32.0 [facility] Mean corpuscular hemoglobin concentration (MCHC) determinationOrdered By: Kimberly Jacobson on 08-27-2024 MCHC (RBC) [Mass/Vol] 33.2 g/dL 32-36 [facility] Mean platelet volume determi nationOrdered By: Kimberly Jacobson on 08-27-2024 Platelet mean volume (Bld) [Entitic vol] 10.0 fL 6.2-12.0 [facility] Neutrophil percentageOrdered By: Kimberly Jacobson on 08-27-2024 Neutrophils (%) (Auto) Not Reportable [facility] Platelet countOrdered By: Therese Jacobson on 08-27-2024 Platelets (Bld) [#/Vol] 427 10*3/uL 150-450 [facility] Platelet estimateOrdered By: Kimberly Jacobson on 08-27-2024 Platelets LM Ql (Bld) ADEQUATE ADEQ [facility] Platelets LM Ql (Bld)Ordered By: Kimberly Jacobson on 08-27-2024 Platelet Estimate ADEQUATE [facility] Potassium measurementOrdered By: Kimberly Jacobson on 08-27-2024 Potassium [Moles/Vol] 4.1 mmol/L 3.5-5.1 [facility] RBC Auto (Bld) [#/Vol]Ordere d By: Kimberly Jacobson on 08-27-2024 RBC (Bld) [#/Vol] 5.03 10*6/uL 4.2-5.4 [facility] RBC morphology finding Nom ( Bld)Ordered By: Kimberly Jacobson on 08-27-2024 Red Blood Cell Morphology NORM C+C NORMAL NORM C&C [facility] Reactive lymphocyte countOrd ered By: Kimberly Jacobson on 08-27-2024 Reactive Lymphocytes 1+ [facility] Segmented neutrophils/100 WB C (Bld)Ordered By: Kimberly Jacobson on 08-27-2024 Neutrophils/100 WBC (Bld) 83 % High 47-70 [facility] Serum anion gap measurementO rdered By: Kimberly Jacobson on 08-27-2024 Anion gap [Moles/Vol] 4 mmol/L Low 5-15 [facility] Serum globulin measurementOr dered By: Kimberly Jacobson on 08-27-2024 Globulin (S) [Mass/Vol] 4.0 g/dL 2.2-4.2 [facility] Serum or plasma alanine ruby otransferase (ALT) measurementOrdered By: Kimberly Jacobson on 08-27-2024 ALT [Catalytic activity/Vol] 82 U/L High 13-56 [facility] Serum or plasma albumin sanford urement (mass/volume)Ordered By: Kimberly Jacobson on 08-27-2024 Albumin [Mass/Vol] 3.4 g/dL 3.2-5.0 [facility] Serum or plasma alkaline neftali sphatase measurementOrdered By: Kimberly Jacobson on 08-27-2024 ALP [Catalytic activity/Vol] 131 U/L High 45-117 [facility] Serum or plasma calcium sanford urement (mass/volume)Ordered By: Kimberly Jacobson on 08-27-2024 Calcium [Mass/Vol] 9.1 mg/dL 8.5-10.1 [facility] Serum or plasma creatinine m easurement (mass/volume)Ordered By: Kimberly Jacobson on 08-27-2024 Creatinine [Mass/Vol] 0.68 mg/dL 0.55-1.02 [facility] Comment on above: The validity of the calculated GFR & GFRAA in patients over 70 years has not been determined. Clinical correlation is essential. Serum or plasma urea nitroge n measurement (mass/volume)Ordered By: Kimberly Jacobson on 08-27-2024 Urea nitrogen [Mass/Vol] 11 mg/dL 7-18 [facility] Sodium levelOrdered By: Maureen Jacobson on 08-27-2024 Sodium [Moles/Vol] 136 mmol/L 136-145 [facility] Total cell countOrdered By: Kimberly Jacobson on 08-27-2024 Cells counted Molgen (Bld/Tiss) [#] 100 MANUAL DIFF [facility] Total proteinOrdered By: Shar Jacobson on 08-27-2024 Protein [Mass/Vol] 7.4 g/dL 6.4-8.2 [facility] Toxic granules LM Ql (Bld)Or dered By: Kimberly Jacobson on 08-27-2024 Toxic Granulation RARE [facility] Toxic leukocyte granulation detectionOrdered By: Kimberly Jacobson on 08-27-2024 Toxic granules LM Ql (Bld) [facility] White blood cell (WBC) count Ordered By: Kimberly Jacobson on 08-27-2024 WBC (Bld) [#/Vol] 20.7 10*3/uL High 4.4-11.0 [facility] IMMUNOGLOBULIN Dilip Immunoglobulin G 1017 mg/dL Normal 578-1228 [facility] Comment on above: Order Comment: Relea se to patient->Automatic Performed By: #### 2 600 #### OFE Lindsay ([id number]) [facility] ([facility]) [address] Immunoglobulin GOrdered By: Background Lab on 2024 IgG [Mass/Vol] 1017 mg/dL 578 - 1228 mg/dL [facility] Interpretation and review of laboratory results Normal [facility] Progress Noteon 2024 Deputy Head Authentication Interface Message Text Ofe is a 49 y.o. female who presents to our office today for a follow up visit. She was last seen on 12/18/23 and before this on 07/07/23 and she was seen initially on 02/09/23 for evaluation secondary to concerns from her PCP Dr. Yarelis Fitzpatrick (see referral in Epic). Ofe used to be followed by Dr. Tarango ([facility]) for lung nodules and she had been [...] Fitzpatrick she was to see Dr. Meeks (C[facility] Trimmer in [place]) and she has done this once and [...] was tolerated. -Due to her seeing a [facility] Trimmer (Dr. Meeks), I held off on spirometry [...] 07/07/23. She says her spirometry with her Cow Trimmer was normal and she did not have [...] age 23. Special Needs: None Preferred Language: Bahraini Pets: Yes: 1 dog. School/Daycare: No, she [...] tolerated. Respirator (more content not included)... Normal [facility] Progress Noteon 12-18-2023 Deputy Head Authentication Interface Message Text Ofe is a 48 y.o. female who presents to our office today for a follow up visit. She was last seen on 07/07/23 and she was seen initially on 02/09/23 for evaluation secondary to concerns from her PCP Dr. Yarelis Fitzpatrick (see referral in Epic). Ofe used to be followed by Dr. Tarango ([facility]) for lung nodules and she had been [...] Fitzpatrick she was to see Dr. Meeks ([facility] in [place]) and she has done this once and [...] was tolerated. -Due to her seeing a Cow Trimmer (Dr. Meeks), I held off on spirometry at her initial visit and food and environmental allergen testing did not appear to be indicated and this was discussed with her. At her initial visit, I ordered IgG, IgA, IgM and IgE levels, lymphocyte profile, tetanus titer, pneumococcal titers, HIV and Mitogen studies (3778) and on 02/13/23, IgG-242, IgA <5, IgM-23 [...] she has not followed up with her communications advisor as yet and overall she feels better [...] age 23. Special Needs: None Preferred Language: Bahraini Pets: Yes: 1 dog. School/Daycare: No, she [...] problems. Hematologic/l (more content not included)... Normal [facility] HIV 1&2 Ag and Ab Screenon 0 02-13-2023 HIV 1&2 Ag and Ab Screen Non-Reactive [facility] Comment on above: Reference value: Non -reactive Non-reactive result does not rule out HIV infection. If exposure to HIV infection occurred <14 days ago, contact the laboratory to request the addition of HIV-1 RNA detection/quantification test to [facility] (HIVQN). Release to patient->Automatic Reason for preventing automatic release->Other Release to patient->Manual release only [facility] Immunoglobulin A,G,M,Marino Immunoglobulin A <5 Low 59 - 337 mg/dL [facility] Immunoglobulin E <1 [facility] Immunoglobulin G 242 mg/dL Low 578 - 1228 mg/dL [facility] Immunoglobulin M 23 mg/dL 23 - 166 mg/dL [facility] Interpretation and review of laboratory results Abnormal [facility] [facility] Release to patient->Automatic Reason for preventing automatic release->Other Release to patient->Manual release only [facility] Microbial respiratory cultur eOrdered By: Dr. Meeks on 01-26-2023 Bacteria identified Respiratory culture Nom (Unsp spec) or Staphylococcus aureus isolated. [facility] Gram stain for investigation of transfusion reactionOrdered By: Dr. Meeks on 01-24-2023 Microscopic observation Gram stain Nom (Unsp spec) [facility] CBC W/AUTO DIFF WBC (07472)O rdered By: Operations Clerk on 12-16-2022 Basophils (Bld) [#/Vol] 0.1 10*3/uL Normal 0.0-0.2 [facility] Work Phone: Comment on above: PATIENT WAS FASTINGP ERFORMED BY: CB [facility] Ilhfuj3931 [address] RoadSelect [facility] [place] [id number] BY: Lab[address] [id number] Basophils/100 WBC (Bld) 0 % Normal [facility]; [facility] Work Phone: Comment on above: PATIENT WAS FASTINGP ERFORMED BY: CB [facility] Tqowtg2042 [facility] [id number] BY: Lab[address] [id number] Eosinophils (Bld) [#/Vol] 0.1 10*3/uL Normal 0.0-0.4 [facility]; [facility] Work Phone: Comment on above: PATIENT WAS FASTINGP ERFORMED BY: CB [facility] Mjvuey8946 [facility] [id number] BY: [address] [id number] Eosinophils/100 WBC (Bld) 1 % Normal [facility]; [facility] Work Phone: Comment on above: PATIENT WAS FASTINGP ERFORMED BY: [facility] Buxspv5384 [facility] [id number] BY: [address] [id number] Erythrocyte distribution width (RBC) [Ratio] 14.2 % Normal 11.7-15.4 [facility]; [facility] Work Phone: Comment on above: PATIENT WAS FASTINGP ERFORMED BY: CB [facility] Hvttur3980 [facility] [id number] BY: [address] [id number] Hematocrit (Bld) [Volume fraction] 42.6 % Normal 34.0-46.6 [facility]; [facility] Work Phone: Comment on above: PATIENT WAS FASTINGP ERFORMED BY: [facility] Mscoom5514 [facility] [id number] BY: [address] [id number] Hemoglobin (Bld) [Mass/Vol] 14.3 g/dL Normal 11.1-15.9 [facility]; [facility] Work Phone: Comment on above: PATIENT WAS FASTINGP ERFORMED BY: ANGELINE [facility] Cdptpe3551 [facility] [id number] BY: [address] [id number] Immature granulocytes (Bld) [#/Vol] 0.0 10*3/uL Normal 0.0-0.1 [facility]; [facility] Work Phone: Comment on above: PATIENT WAS FASTINGP ERFORMED BY: [facility] Sdwhuz4207 [facility] [id number] BY: [address] [id number] Immature granulocytes/100 WBC (Bld) 0 % Normal [facility]; [facility] Work Phone: Comment on above: PATIENT WAS FASTINGP ERFORMED BY: [facility] Tuetrh1524 [facility] [id number] BY: [facility] [id number] Lymphocytes (Bld) [#/Vol] 2.9 10*3/uL Normal 0.7-3.1 [facility]; [facility] Work Phone: Comment on above: PATIENT WAS FASTINGP ERFORMED BY: [facility] Azcyos0122 [facility] [id number] BY: [address] [id number] Lymphocytes/100 WBC (Bld) 18 % Normal [facility]; [facility] Work Phone: Comment on above: PATIENT WAS FASTINGP ERFORMED BY: ANGELINE [facility] Ojsskw7755 [facility] [id number] BY: [address] [id number] MCH (RBC) [Entitic mass] 27.1 pg Normal 26.6-33.0 [facility]; [facility] Work Phone: Comment on above: PATIENT WAS FASTINGP ERFORMED BY: ANGELINE [facility] Fagtyn0976 [facility] [id number] BY: [address] [id number] MCHC (RBC) [Mass/Vol] 33.6 g/dL Normal 31.5-35.7 [facility] prehensive Internal Medicine; [facility] Work Phone: Comment on above: PATIENT WAS FASTINGP ERFORMED BY: ANGELINE [facility] Wcjzlq3972 [facility] [id number] BY: [address] [id number] MCV (RBC) [Entitic vol] 81 fL Normal 79-97 [facility]; [facility] Work Phone: Comment on above: PATIENT WAS FASTINGP ERFORMED BY: [facility] Hnyysc9295 [facility] [id number] BY: [address] [id number] Monocytes (Bld) [#/Vol] 0.9 10*3/uL Normal 0.1-0.9 [facility]; [facility] Work Phone: Comment on above: PATIENT WAS FASTINGP ERFORMED BY: [facility] Pdcyek6343 [facility] [id number] BY: [address] [id number] Monocytes/100 WBC (Bld) 6 % Normal [facility]; [facility] Work Phone: Comment on above: PATIENT WAS FASTINGP ERFORMED BY: ANGELINE [facility] Mslrfx1640 [facility] [id number] BY: [facility] [address] [id number] Neutrophils (Bld) [#/Vol] 11.8 10*3/uL Abnormal 1.4-7.0 [facility]; [facility] Work Phone: Comment on above: PATIENT WAS FASTINGP ERFORMED BY: CB [facility] Qahiyg7827 [facility] [id number] BY: [facility] [address] [id number] Neutrophils/100 WBC (Bld) 75 % Normal [facility]; [facility] Work Phone: Comment on above: PATIENT WAS FASTINGP ERFORMED BY: ANGELINE [facility] Pteeoa6705 [facility] [id number] BY: [facility] [address] [id number] Platelets (Bld) [#/Vol] 522 10*3/uL Abnormal 150-450 [facility]; [facility] Work Phone: Comment on above: PATIENT WAS FASTINGP ERFORMED BY: ANGELINE [facility] Jaywqf6139 [facility] [id number] BY: [facility] [address] [id number] RBC (Bld) [#/Vol] 5.28 10*6/uL Normal 3.77-5.28 Compr [facility] Internal [facility]; [facility] Work Phone: Comment on above: PATIENT WAS FASTINGP ERFORMED BY: CB [facility] Sugojl2651 [facility] [id number] BY: [facility] [address] [id number] WBC (Bld) [#/Vol] 15.8 10*3/uL Abnormal 3.4-10.8 Compr ensive [facility] Medicine; [facility] Work Phone: Comment on above: PATIENT WAS FASTINGP ERFORMED BY: ANGELINE [facility] Iicoig2031 [facility] [id number] BY: [employer] [id number] Ferritin (75097)Ordered By: Operations Clerk on 12-16-2022 Ferritin [Mass/Vol] 98 ng/mL Normal 15-150 [facility]; [facility] Work Phone: Comment on above: PATIENT WAS FASTINGP ERFORMED BY: ANGELINE [facility] Mgjnix1501 [facility] [id number] BY: [employer] [id number] Immunoglobulins, Quantitativ e, IgA,IgE, IgG, IgM (07121)Ordered By: Operations Clerk on 12-16-2022 IgA [Mass/Vol] mg/dL Abnormal 87-352 Comprehens tiuts Internal Medicine; [facility] Work Phone: Comment on above: Result confirmed on concentration. PATIENT WAS FASTINGP ERFORMED BY: ANGELINE [facility] Ydwtlk3096 [facility] [id number] BY: [employer] [id number] IgE Qn [IU]/L Abnormal 6-495 [facility]; [facility] Work Phone: Comment on above: PATIENT WAS FASTINGP ERFORMED BY: LabZMPrp Mhvcbj2087 [facility] [id number] BY: [employer] [id number] IgG [Mass/Vol] 307 mg/dL Abnormal 586-1602 Comprehens [facility]us [facility]; [facility] Work Phone: Comment on above: PATIENT WAS FASTINGP ERFORMED BY: [facility] Nsxrya3141 [facility] [id number] BY: [address] [place] [id number] IgM [Mass/Vol] 30 mg/dL Normal 26-217 Comprehens titus [facility]; [facility] Work Phone: Comment on above: PATIENT WAS FASTINGP ERFORMED BY: CB [facility] Avrfks0941 Angel RoadDublin [place] [id number] BY: Lab[address] [id number] Iron Binding Capacity (TIBC) (63085)Ordered By: Operations Clerk on 12-16-2022 Iron [Mass/Vol] 19 ug/dL Abnormal 27-159 Comprehen sive [facility] Medicine; [facility] Work Phone: Comment on above: PATIENT WAS FASTINGP ERFORMED BY: CB [facility] Tyzcki1948 Angel RoadDuin [place] [id number] BY: [address] [id number] Iron binding capacity [Mass/Vol] 263 ug/dL Normal 250-450 [facility]; [facility] Work Phone: Comment on above: PATIENT WAS FASTINGP ERFORMED BY: CB [facility] Ekzoaq8563 Angel RoadDublin [place] [id number] BY: [address] [id number] Iron binding capacity.unsaturated [Mass/Vol] 244 ug/dL Normal 131-425 [facility]; [facility] Work Phone: Comment on above: PATIENT WAS FASTINGP ERFORMED BY: CB [facility] Tzfbaa6744 Angel RoadDublin [place] [id number] BY: [address] [id number] Iron saturation [Mass fraction] 7 % Abnormal 15-55 [facility]; [facility] Work Phone: Comment on above: PATIENT WAS FASTINGP ERFORMED BY: CB [facility] Sqmnvj8378 Angel RoadDublin [place] [id number] BY: Lab[address] [id number] LDH (LD) (LACTATE DEHYDROGEN ASE) (26222)Ordered By: Operations Clerk on 12-16-2022 LDH [Catalytic activity/Vol] 175 U/L Normal 119-226 [facility]; [facility] Work Phone: Comment on above: PATIENT WAS FASTINGP ERFORMED BY: [facility] Uikpgj0593 [facility] [id number] BY: [employer] [id number] METABOLIC PANEL, COMPREHENSI VE (64082)Ordered By: Operations Clerk on 12-16-2022 Albumin [Mass/Vol] 4.7 g/dL Normal 3.8-4.8 [facility]; [facility] Work Phone: Comment on above: PATIENT WAS FASTINGP ERFORMED BY: [facility] Vnicfw5720 [facility] [id number] BY: [employer] [id number] Albumin/Globulin [Mass ratio] 2.9 {ratio} Abnormal 1.2-2.2 [facility]; [facility] Work Phone: Comment on above: PATIENT WAS FASTINGP ERFORMED BY: LabZMPrp Gsgjsb9016 [facility] [id number] BY: [employer] [id number] ALP [Catalytic activity/Vol] 116 U/L Normal 44-121 [facility]; [facility] Work Phone: Comment on above: PATIENT WAS FASTINGP ERFORMED BY: [employer] [facility] Ayxcvc0125 [facility] [id number] BY: Lab[address] [id number] ALT [Catalytic activity/Vol] 17 U/L Normal 0-32 [facility]; [facility] Work Phone: Comment on above: PATIENT WAS FASTINGP ERFORMED BY: ANGELINE [facility] Pagxpc9120 Angel RoadDublin [place] [id number] BY: [address] [id number] AST [Catalytic activity/Vol] 19 U/L Normal 0-40 [facility]; [facility] Work Phone: Comment on above: PATIENT WAS FASTINGP ERFORMED BY: ANGELINE [facility] Smiomy4900 Angel Roadblin [place] [id number] BY: Lab[address] [id number] Bilirubin [Mass/Vol] 0.5 mg/dL Normal 0.0-1.2 Comp rehensive [facility] Medicine; [facility] Work Phone: Comment on above: PATIENT WAS FASTINGP ERFORMED BY: ANGELINE [facility] Pssnzt6239 Angel RoadUNC Health [id number] BY: [address] [id number] Calcium [Mass/Vol] 9.5 mg/dL Normal 8.7-10.2 [facility]; [facility] Work Phone: Comment on above: PATIENT WAS FASTINGP ERFORMED BY: ANGELINE [facility] Camifh9763 Angel RoadDublin [place] [id number] BY: [address] [id number] Chloride [Moles/Vol] 102 mmol/L Normal 96-106 Comp rehensive [facility] Medicine; [facility] Work Phone: Comment on above: PATIENT WAS FASTINGP ERFORMED BY: ANGELINE [facility] Vmfuoz5936 Angel RoadDuin [place] [id number] BY: [address] [id number] CO2 [Moles/Vol] 23 mmol/L Normal 20-29 [facility] Internal Medicine; [facility] Work Phone: Comment on above: PATIENT WAS FASTINGP ERFORMED BY: [facility] Ktjfgj5539 Angel RoadDuSentara Albemarle Medical Center [id number] BY: [employer] [id number] Creatinine [Mass/Vol] 0.71 mg/dL Normal 0.57-1.00 [facility] prehensive Internal Medicine; [facility] Work Phone: Comment on above: PATIENT WAS FASTINGP ERFORMED BY: ActuatedMedicalJersey Shore University Medical CenterBdacqh1966 [facility] [id number] BY: [employer] [id number] GFR/1.73 sq M.predicted among non-blacks MDRD (S/P/Bld) [Vol rate/Area] 104 mL/min/{1.73_m2} Normal Comprehensi Internal Medicine; [facility] Work Phone: Comment on above: PATIENT WAS FASTINGP ERFORMED BY: [employer] Vbytgn0603 [facility] [id number] BY: [employer] [id number] Globulin (S) [Mass/Vol] 1.6 g/dL Normal 1.5-4.5 [facility]; [facility] Work Phone: Comment on above: PATIENT WAS FASTINGP ERFORMED BY: [employer] Knygnr8750 [facility] [id number] BY: [employer] [id number] Glucose [Mass/Vol] 89 mg/dL Normal 70-99 [facility]; [facility] Work Phone: Comment on above: PATIENT WAS FASTINGP ERFORMED BY: ActuatedMedicalJersey Shore University Medical CenterBytxcd5192 [facility] [id number] BY: [employer] [id number] Potassium [Moles/Vol] 4.5 mmol/L Normal 3.5-5.2 [facility]; [facility] Work Phone: Comment on above: PATIENT WAS FASTINGP ERFORMED BY: CB [facility] Nzyaxe7980 [facility] [id number] BY: Lab[address] [id number] Protein [Mass/Vol] 6.3 g/dL Normal 6.0-8.5 [facility]; [facility] Work Phone: Comment on above: PATIENT WAS FASTINGP ERFORMED BY: CB [facility] Hmeesb7924 [facility] [id number] BY: Lab[address] [id number] Sodium [Moles/Vol] 142 mmol/L Normal 134-144 [facility]; [facility] Work Phone: Comment on above: PATIENT WAS FASTINGP ERFORMED BY: CB [facility] Uaigni0345 [facility] [id number] BY: Labco[address] [id number] Urea nitrogen [Mass/Vol] 9 mg/dL Normal 6-24 [facility]; [facility] Work Phone: Comment on above: PATIENT WAS FASTINGP ERFORMED BY: CB [facility] Ybbniy2639 [facility] [id number] BY: Lab[address] [id number] Urea nitrogen/Creatinine [Mass ratio] 13 mg/mg Normal 9-23 [facility]; [facility] Work Phone: Comment on above: PATIENT WAS FASTINGP ERFORMED BY: CB [facility] Rnqemv1505 [facility] [id number] BY: Lab[address] [id number] RETICULOCYTE COUNT (70899)Or dered By: Operations Clerk on 12-16-2022 Reticulocytes/100 RBC (Bld) 0.7 % Normal 0.6-2.6 [facility]; [facility] Work Phone: Comment on above: PATIENT WAS FASTINGP ERFORMED BY: CB [facility] Ppnhmh1471 [facility] [id number] BY: [facility] [id number] SPEP (39498)Ordered By: Sy[employer] Engine Lathe Tender on 12-16-2022 Albumin [Mass/Vol] 4.1 g/dL Normal 2.9-4.4 [facility]; [facility] Work Phone: Comment on above: PATIENT WAS FASTINGP ERFORMED BY: CB [facility] Hjcbyf6161 [facility] [id number] BY: [facility] [id number] Albumin/Globulin [Mass ratio] 1.9 {ratio} Abnormal 0.7-1.7 [facility]; [facility] Work Phone: Comment on above: PATIENT WAS FASTINGP ERFORMED BY: CB [facility] Diapnn9817 [facility] [id number] BY: [facility] [address] [id number] Alpha 1 globulin Elph [Mass/Vol] 0.3 g/dL Normal 0.0-0.4 [facility]; [facility] Work Phone: Comment on above: PATIENT WAS FASTINGP ERFORMED BY: CB [facility] Vgdjkh9100 [facility] [id number] BY: [facility] [address] [id number] Alpha 2 globulin Elph [Mass/Vol] 0.8 g/dL Normal 0.4-1.0 [facility]; [facility] Work Phone: Comment on above: PATIENT WAS FASTINGP ERFORMED BY: CB [facility] Ubqfoc4416 [facility] [id number] BY: Labco[address] [id number] Beta globulin Elph [Mass/Vol] 0.8 g/dL Normal 0.7-1.3 [facility]; [facility] Work Phone: Comment on above: PATIENT WAS FASTINGP ERFORMED BY: CB [facility] Yyxyhj2576 [facility] [id number] BY: [address] [id number] Gamma globulin Elph [Mass/Vol] 0.3 g/dL Abnormal 0.4-1.8 [facility]; [facility] Work Phone: Comment on above: PATIENT WAS FASTINGP ERFORMED BY: CB [facility] Eesrdw1464 [facility] [id number] BY: [address] [id number] Globulin (S) [Mass/Vol] 2.2 g/dL Normal 2.2-3.9 [facility]; [facility] Work Phone: Comment on above: PATIENT WAS FASTINGP ERFORMED BY: [facility] Cctpnr6105 [facility] [id number] BY: [employer] [id number] Laboratory comment Dragan (Report) [facility] Normal [facility]; [facility] Work Phone: Comment on above: Protein electrophore sis scan will follow via computer, mail, orcourier delivery. PATIENT WAS FASTINGP ERFORMED BY: CB [facility] Nnblrh0199 [facility] [id number] BY: [address] [id number] Laboratory report . Normal Compreh ensive Internal Medicine; [facility] Work Phone: Comment on above: PATIENT WAS FASTINGP ERFORMED BY: CB [facility] Qofayp7307 [facility] [id number] BY: [address] [id number] Protein.monoclonal Elph [Mass/Vol] Not Observed Normal [facility]; [facility] Work Phone: Comment on above: PATIENT WAS FASTINGP ERFORMED BY: ANGELINE [facility] Nopfhc2317 [facility] [id number] BY: [address] [id number] UPEP (35118)Ordered By: Syst em Engine Lathe Tender on 12-16-2022 Albumin Elph (U) [Mass fraction] 14.5 % Normal [facility]; [facility] Work Phone: Comment on above: PATIENT WAS FASTINGP ERFORMED BY: [facility] Edikxn7677 [facility] [id number] BY: [address] [id number] Alpha 1 globulin Elph (U) [Mass fraction] 13.0 % Normal Comprehensiv e Internal Medicine; [facility] Work Phone: Comment on above: PATIENT WAS FASTINGP ERFORMED BY: [facility] Bpdlaz0670 [facility] [id number] BY: [address] [id number] Alpha 2 globulin Elph (U) [Mass fraction] 21.8 % Normal Comprehensiv e Internal Medicine; [facility] Work Phone: Comment on above: PATIENT WAS FASTINGP ERFORMED BY: [facility] Sbzzxf7136 [facility] [id number] BY: [address] [id number] Beta globulin Elph (U) [Mass fraction] 32.9 % Normal Comprehensiv e Internal Medicine; [facility] Work Phone: Comment on above: PATIENT WAS FASTINGP ERFORMED BY: [facility] Xancqv7553 [facility] [id number] BY: [address] [id number] Gamma globulin Elph (U) [Mass fraction] 17.8 % Normal Comprehensiv e Internal Medicine; [facility] Work Phone: Comment on above: PATIENT WAS FASTINGP ERFORMED BY: [employer]70 [facility] [id number] BY: [employer] [id number] Protein (U) [Mass/Vol] mg/dL Normal [facility]; [facility] Work Phone: Comment on above: Verified by repeat analysis PATIENT WAS FASTINGP ERFORMED BY: [employer]70 [facility] [id number] BY: [employer] [id number] Protein.monoclonal Elph (U) [Mass fraction] Not Observed Normal [facility]; [facility] Work Phone: Comment on above: PATIENT WAS FASTINGP ERFORMED BY: [employer] LabZMPrp Aerhtf7845 [facility] [id number] BY: [employer] [id number] Vitamin B-12 (cyanocobalamin ) (33534)Ordered By: Operations Clerk on 12-16-2022 Cobalamin (Vitamin B12) [Mass/Vol] 339 pg/mL Normal 232-1245 [facility]; [facility] Work Phone: Comment on above: PATIENT WAS FASTINGP ERFORMED BY: [employer] LabZMPrp Wnixhn0051 [facility] [id number] BY: [employer] [id number] Absolute lymphocyte countOrd ered By: ED PROVIDER on 11-06-2022 Lymphocytes Auto (Unsp spec) [#/Vol] 3.22 10*3/uL 0.83-4.51 [facility] Amorphous sediment detection in urine sediment by light microscopyOrdered By: ED PROVIDER on 11-06-2022 Amorphous sediment LM Ql (Urine sed) 1+ URATE [facility] Basophil percentageOrdered B y: ED PROVIDER on 11-06-2022 Basophil percentage 0 SEEN /hpf 0-5 [facility] Basophils/100 WBC (Bld) 0.5 % 0-1 [facility] Chloride [Moles/Vol] 107 mmol/L 98-107 [facility] Eosinophils/100 WBC (Bld) 0.0 % 0-5 [facility] Glucose [Mass/Vol] 177 mg/dL 74-106 [facility] [place] [facility] Comment on above: Fasting Glucose resu lt greater than or equal to 126 mg/dL suggests DIABETES MELLITUS per A.D.A. criteria. Neutrophils (Bld) [#/Vol] 8.5 10*3/uL 2.0-7.7 [facility] Neutrophils/100 WBC (Bld) 66.8 % 47-70 [facility] Potassium [Moles/Vol] 3.6 mmol/L 3.5-5.1 [facility] Sodium [Moles/Vol] 142 mmol/L 136-145 [facility] [place] [facility] WBC (Bld) [#/Vol] 12.7 10*3/uL 4.4-11.0 [facility] Beta hCG serum qualOrdered B y: ED PROVIDER on 11-06-2022 Beta HCG ( test) Ql Negative [facility] Bilirubin Test strip Ql (U)O rdered By: ED PROVIDER on 11-06-2022 Bilirubin Ql (U) Negative Negative [facility] Blood erythrocytes count (nu mber/volume)Ordered By: ED PROVIDER on 11-06-2022 RBC (Bld) [#/Vol] 5.24 10*6/uL 4.2-5.4 [facility] Blood hemoglobin measurement (mass/volume)Ordered By: ED PROVIDER on 11-06-2022 Hemoglobin (Bld) [Mass/Vol] 13.9 g/dL 12.0-15.0 [facility] Blood lymphocytes/100 leukoc ytesOrdered By: ED PROVIDER on 11-06-2022 Lymphocytes/100 WBC (Bld) 25.4 % 19-41 [facility] Blood monocytes/100 leukocyt esOrdered By: ED PROVIDER on 11-06-2022 Monocytes/100 WBC (Bld) 6.8 % 0-10 [facility] Blood platelet mean volumeOr dered By: ED PROVIDER on 11-06-2022 Platelet mean volume (Bld) [Entitic vol] 9.2 fL 6.2-12.0 [facility] Determination of erythrocyte mean corpuscular volume (MCV)Ordered By: ED PROVIDER on 11-06-2022 MCV (RBC) [Entitic vol] 83.4 fL 81-99 [facility] Hematocrit Auto (Bld) [Volum e fraction]Ordered By: ED PROVIDER on 11-06-2022 Hematocrit (Bld) [Volume fraction] 43.7 % 37-47 [facility] Ketones Test strip Ql (U)Ord ered By: ED PROVIDER on 11-06-2022 Ketones Ql (U) Negative Negative [facility] Laboratory - Chemistry and C hemistry - challengeOrdered By: ED PROVIDER on 11-06-2022 CO2 [Moles/Vol] 27.0 mmol/L 21.0-32.0 [facility] Urea nitrogen/Creatinine [Mass ratio] 14.5 mg/mg 10-20 [facility] Laboratory - Hematology and Cell countsOrdered By: ED PROVIDER on 11-06-2022 Erythrocyte distribution width (RBC) [Entitic vol] 44.0 fL 35.1-43.9 [facility] Erythrocyte distribution width (RBC) [Ratio] 14.6 % 11.6-14.6 [facility] Immature granulocytes/100 WBC (Bld) 0.500 % 0.0-0.9 [facility] Comment on above: IG% - Immature Granu locytes (promyelocytes, myelocytes and metamyelocytes) > 1% indicates that a LEFT SHIFT is Present. MCH (RBC) [Entitic mass] 26.5 pg 27.0-32.0 [facility] Nucleated RBC/100 WBC (Bld) [Ratio] 0 % 0-5 [facility] MCHC Auto (RBC) [Mass/Vol]Or dered By: ED PROVIDER on 11-06-2022 MCHC (RBC) [Mass/Vol] 31.8 g/dL 32-36 [facility] Mucus LM Ql (Urine sed)Order ed By: ED PROVIDER on 11-06-2022 Mucus Ql (Urine sed) 0 SEEN /hpf [facility] Nitrite Test strip Ql (U)Ord ered By: ED PROVIDER on 11-06-2022 Nitrite Ql (U) Negative Negative [facility] No Panel InformationOrdered By: ED PROVIDER on 11-06-2022 Estimated Creatinine Clearance Calc 83.82 ml/min [facility] Estimated GFR (MDRD) Amer 104 mL/min >60 [facility] Comment on above: GFR Calc Estimated GFR (MDRD) Non-Af Amer 86 mL/min >60 [facility] Comment on above: Non- GFR Calc Platelets bldOrdered By: ED PROVIDER on 11-06-2022 Platelets (Bld) [#/Vol] 502 10*3/uL 150-450 [facility] Protein Test strip Ql (U)Ord ered By: ED PROVIDER on 11-06-2022 Protein Ql (U) 30 mg/dl Negative [facility] Serum or plasma calcium sanford urement (mass/volume)Ordered By: ED PROVIDER on 11-06-2022 Calcium [Mass/Vol] 9.6 mg/dL 8.5-10.1 [facility] Serum or plasma creatinine m easurement (mass/volume)Ordered By: ED PROVIDER on 11-06-2022 Creatinine [Mass/Vol] 0.76 mg/dL 0.55-1.02 [facility] Comment on above: The validity of the calculated GFR & GFRAA in patients over 70 years has not been determined. Clinical correlation is essential. Serum or plasma urea nitroge n measurement (mass/volume)Ordered By: ED PROVIDER on 11-06-2022 Urea nitrogen [Mass/Vol] 11 mg/dL 7-18 [facility] Squamous epithelial cells de tection in urine sediment by light microscopyOrdered By: ED PROVIDER on 11-06-2022 Epithelial cells.squamous LM Ql (Urine sed) 0-5 SEEN /hpf 5-10 [facility] Thin prep Papanicolaou smear with manual screeningOrdered By: ED PROVIDER on 11-06-2022 Thin prep Papanicolaou smear with manual screening 8 5-15 [facility] Urine blood detectionOrdered By: ED PROVIDER on 11-06-2022 RBC Ql (U) 10 /ul Negative [facility] RBC Ql (U) 0-5 SEEN /hpf 0-5 [facility] Urine clarityOrdered By: ED PROVIDER on 11-06-2022 Clarity (U) Sl. Cloudy Clear [facility] Urine color determinationOrd ered By: ED PROVIDER on 11-06-2022 Color (U) Yellow Yellow [facility] Urine glucose detectionOrder ed By: ED PROVIDER on 11-06-2022 Glucose Ql (U) 50 mg/dl Normal [facility] Urine leukocyte esterase det ection by dipstickOrdered By: ED PROVIDER on 11-06-2022 Leukocyte esterase Test strip Ql (U) Negative Negative [facility] Urine pHOrdered By: ED PROVI NORMAN on 11-06-2022 pH (U) 6.5 [pH] 5.0 - 8.0 [facility] Urine sediment bacteria coun t by microscopy (number/high power field)Ordered By: ED PROVIDER on 11-06-2022 Bacteria LM.HPF (Urine sed) [#/Area] 0 /[HPF] None Seen [facility] Urine specific gravity measu rementOrdered By: ED PROVIDER on 11-06-2022 Specific gravity (U) [Rel density] 1.020 1.002-1.030 [facility] Urobilinogen Auto test strip Ql (U)Ordered By: ED PROVIDER on 11-06-2022 Urobilinogen Ql (U) 1 mg/dl Normal [facility] INHOUSE Rapid Covid/ Flu A/ Flu BOrdered By: Yaa Calderon on 02-22-2022 SARS-CoV-2 (COVID-19) RNA MICHELLE+probe Ql (Unsp spec) Negative Normal [facility] Work Phone: CAMIOVon 01-23-2022 CNOV Office Visit ([facility] ) -------- OFE GIMENEZ ([id number]) 1975 F Date Time Provider Department 01/23/22 8:45 AM ABRAHAN PETERSON [facility] During your visit today, we recorded the following information about you: Temperature Pulse Respiration Blood pressure 99.4 degrees 89/minute 18/minute 146/88 Weight 62.3 kg Abrahan PetersonREINALDO.PARTS CHASER 01/23/2022 10:11 AM Signed Subjective HPI HPI [...] Agrees to plan Declines avs Abrahan Peterson APRN.PARTS CHASER Referring Provider: SELF [200] Allergies As of Date: 01/23/2022 (No Known Allergies) Date Reviewed: 01/23/2022 Reviewed by: Abrahan Peterson APRN.PARTS CHASER - Fully Assessed Reason for Visit: Cough [...] trimethoprim-polymyxin (NEREIDA (more content not included)... Normal [facility] CNOVon 08-28-2021 CNOV Office Visit ([facility] ) -------- OFE GIMENEZ ([id number]) 1975 F Date Time Provider Department 08/28/21 8:30 AM MELVA REYNA [facility] During your visit today, we recorded the following information about you: Temperature Pulse Respiration Blood pressure 98.3 degrees 86/minute 18/minute 142/82 Weight 66.5 kg Melva Reyna APRN.PARTS CHASER 08/28/2021 9:11 AM Addendum Albuterol nebulizer every [...] severe or concerning to you. Melva Reyna, REINALDO.PARTS CHASER 08/28/2021 9:16 AM Signed Subjective HPI HPI [...] of smell (more content not included)... Normal [facility] COVID w FLU A+B Routon 08-28 Influenza A PCR Negative Normal [facility] Comment on above: Performed By: #### C OVFLU #### [facility] [address] [place] [address] Influenza B PCR Negative Normal [facility] Comment on above: Performed By: #### C OVFLU #### [facility] [address] [place], [place] [address] SARS-CoV-2 (COVID-19) RNA MICHELLE+probe Ql (Unsp spec) UPPER RESPIRATORY TRACT SWAB Normal [facility] Comment on above: Performed By: #### C OVFLU #### [facility] [address] [place], [place] [address] SARS-CoV-2 (COVID-19) RNA MICHELLE+probe Ql (Unsp spec) Positive for COVID19 (SARS CoV2) by RT-PCR or equivalent method. Critically abnormal Negative for COVID19 (SARS CoV2) by RT-PCR or equivalent method. [facility] Comment on above: Result Comment: This test was developed and its performance characteristics determined by [facility]ology and [facility] [place]. This test has been authorized by FDA under an Emergency Use Authorization (EUA). This test has been validated in accordance with the FDA's Guidance Document Policy for Diagnostics Testing in Laboratories Certified to Perform High Complexity Testing under CLIA prior to Emergency use Authorization for Coronavirus Disease 2019 during the Public Health Emergency issued on October 19, 2019. Test performed by [facility], [facility] and [facility] [place], [address] [place] [address]. Performed By: #### C OVFLU #### [place] [address] OV 08-11-2021 [facility] -------- OFE GIMENEZ ([id number]) 1975 F Date Time Provider Department 08/11/21 6:00 PM LEN MARINELLI [facility] During your visit today, we recorded the [...] Marinelli APRN.CNP 08/11/2021 6:50 PM Signed [facility] [place] [address] [place] [address] Emergency Department Diagnosis: Assessment COUGH: Your doctor [...] have increased (more content not included)... Normal [facility] Raji 08-11-2021 PEPE Telephone ([facility]) -------- OFE GIMENEZ ([id number]) 1975 F Date Time Provider Department 08/11/21 [...] and verbalized understanding of instructions given. Andie Akhtar Allergies As of Date: 08/11/2021 (No Known [...] Status:Closed by ANDIE AKHTAR on 08/12/21 Normal [facility] COVID w FLU A+B Routon 08-11 Influenza A PCR Positive Critically abnormal [facility] Comment on above: Performed By: #### C OVFLU #### [place] [address] [place], [place] [address] Influenza B PCR Negative Normal [facility] Comment on above: Performed By: #### C OVFLU #### [place] [address] [place], [place] [address] SARS-CoV-2 (COVID-19) RNA MICHELLE+probe Ql (Unsp spec) UPPER RESPIRATORY TRACT SWAB Normal [facility] Comment on above: Performed By: #### C OVFLU #### [place] [address] [place], [place] [address] SARS-CoV-2 (COVID-19) RNA MICHELLE+probe Ql (Unsp spec) Negative for COVID19 (SARS CoV2) by RT-PCR or equivalent method. Normal Negative for COVID19 (SARS CoV2) by RT-PCR or equivalent method. [facility] Comment on above: Result Comment: This test was developed and its performance characteristics determined by [facility] [place]. This test has been authorized by FDA under an Emergency Use Authorization (EUA). This test has been validated in accordance with the FDA's Guidance Document Policy for Diagnostics Testing in Laboratories Certified to Perform High Complexity Testing under CLIA prior to Emergency use Authorization for Coronavirus Disease 2019 during the Public Health Emergency issued on October 19, 2019. Test performed by [facility], [facility]ology and [facility] [place], [address] [place] [id number]. Performed By: #### C OVFLU #### [place] [address] [place] [id number] XR CHEST 2V FRONTAL/LATon XR CHEST 2V [...] apices, right upper lobe more than left. Funds Development Director: YURI Transcribe Date/Time: Aug 11 2021 7:07P Dictated by : NESTOR CRONIN MD This examination was interpreted and the report reviewed and electronically signed by: NESTOR CRONIN MD on Aug 11 2021 7:10PM EST [id number] Normal [facility] XR Chest PA and Lateralon IMPRESSION: 1. No acute radiographic abnormalities. 2. Hyperaeration consistent with COPD. 3. 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 Funds Development Director: [facility] Transcribe Date/Time: Aug 11 2021 7:07P Dictated by : NESTOR CRONIN MD This examination was interpreted and the report reviewed and electronically signed by: NESTOR CRONIN MD on Aug 11 2021 7:10PM [facility] DIVISION OF RADIOLOGY * * *Final Report* [...] soft tissues: Unremarkable. DIVISION OF RADIOLOGY Provider, Rafael Natarajan - 08/11/2021 * * *Final Report* * [...] apices, right upper lobe more than left. Funds Development Director: PSCNetta Transcribe Date/Time: Aug 11 2021 7:07P Dictated by : NESTOR CRONIN MD This examination was interpreted and the report reviewed and electronically signed by: NESTOR CRONIN MD on Aug 11 2021 7:10PM [facility] Radiology Study observation (narrative) [facility] XR Chest PA and LateralOrder ed By: Ccf Provider on 08-11-2021 [facility] CNOVon 05-14-2021 CNOV Office Visit ([facility] ) -------- OFE GIMENEZ ([id number]) 1975 F Date Time Provider Department 05/14/21 5:45 PM MARGARITO ALSTON During your visit today, we recorded the [...] have confirmed and edited as necessary, the [facility] Review of Systems Constitutional: Positive for [...] testing ordered; Results will be released to [facility] in 24-48 hours Discussed quarantine, social distancing, hand washing/proper hygiene. Rest, fluids, OTC medications discussed -Reviewed red flags (ie chest pain, shortness of breath) with patient and when to seek care sooner. NELLA Hammond PA-C 05/14/2021 6:45 PM Signed How to Manage Common Symptoms Associated with COVID for Adults Fever- Fever is a tem (more content not included)... Normal [facility] Coronavirus 2019on SARS-CoV-2 (COVID-19) RNA MICHELLE+probe Ql (Unsp spec) UPPER RESPIRATORY TRACT SWAB Normal [facility] Comment on above: Performed By: #### C OVFLU #### [place] [id number] SARS-CoV-2 (COVID-19) RNA MICHELLE+probe Ql (Unsp spec) Negative for COVID19 (SARS CoV2) by RT-PCR or equivalent method. Normal Negative for COVID19 (SARS CoV2) by RT-PCR or equivalent method. [facility] Comment on above: Result Comment: This test was developed and its performance characteristics determined by [facility] and [facility] [place]. This test has been authorized by FDA under an Emergency Use Authorization (EUA). This test has been validated in accordance with the FDA's Guidance Document Policy for Diagnostics Testing in Laboratories Certified to Perform High Complexity Testing under CLIA prior to Emergency use Authorization for Coronavirus Disease 2019 during the Public Health Emergency issued on October 19, 2019. Test performed by [facility], [facility] and [facility] [place], [address] [place] [address]. Performed By: #### C OVFLU #### [place] [id number] 2018 Novel Coronavirus (COVI D-19), MICHELLE ([id number])Ordered By: Operations Clerk on 11-25-20202018 Novel Coronavirus (COVID-19), MICHELLE ([id number]) Not detected Normal [facility]; [facility] Work Phone: Comment on above: This nucleic acid am plification test was developed and its performancecharacteristics determined by [employer]. Nucleic acidamplification tests include RT-PCR and TMA. [...] detected) result in this assay. PERFORMED BY: [id number] [place] [id number] [place] (ANTINUCLEAR ANTIBODY) ( [id number])Ordered By: Operations Clerk on 12-24-2019 Nuclear Ab Ql (S) Negative Normal [facility] Work Phone: Comment on above: PATIENT NOT FASTINGP ERFORMED BY: [address] [id number] Nuclear Ab Ql (S) Negative Normal [facility]; [facility] Work Phone: Comment on above: PATIENT NOT FASTINGP ERFORMED BY: [employer] [place] [id number] FERRITIN ([id number])Ordered By: Operations Clerk on 12-24-2019 Ferritin [Mass/Vol] 6 ng/mL Abnormal 15-150 [facility] Work Phone: Comment on above: PATIENT NOT FASTINGP ERFORMED BY: [employer] [place] [id number] Iron Binding Capacity (TIBC) ([id number])Ordered By: Operations Clerk on 12-24-2019 Iron [Mass/Vol] 11 ug/dL Abnormal 27-159 [facility] Internal Medicine Work Phone: Comment on above: PATIENT NOT FASTINGP ERFORMED BY: CB [facility] [id number] [place] [id number] Iron binding capacity [Mass/Vol] 462 ug/dL Abnormal 250-450 [facility] Work Phone: Comment on above: PATIENT NOT FASTINGP ERFORMED BY: CB [facility] [id number] [place] [id number] Iron binding capacity.unsaturated [Mass/Vol] 451 ug/dL Abnormal 131-425 [facility] Work Phone: Comment on above: PATIENT NOT FASTINGP ERFORMED BY: CB [facility] [id number] [address] [place] [id number] Iron saturation [Mass fraction] 2 % Abnormal 15-55 [facility] Work Phone: Comment on above: PATIENT NOT FASTINGP ERFORMED BY: CB [facility] [id number] [place] [id number] METABOLIC PANEL, COMPREHENSI VE ([id number])Ordered By: Operations Clerk on 12-24-2019 Albumin [Mass/Vol] 4.8 g/dL Normal 3.8-4.8 [facility] Internal Medicine Work Phone: Comment on above: PATIENT NOT FASTINGP ERFORMED BY: CB [facility] [id number] [place] [id number] Albumin/Globulin [Mass ratio] 3.0 {ratio} Abnormal 1.2-2.2 [facility] Work Phone: Comment on above: PATIENT NOT FASTINGP ERFORMED BY: CB [facility] [id number] [place] [id number] ALP [Catalytic activity/Vol] 72 [iU]/L Normal 39-117 [facility] Work Phone: Comment on above: PATIENT NOT FASTINGP ERFORMED BY: CB [facility] [id number] [place] [id number] ALP [Catalytic activity/Vol] 72 U/L Normal 39-117 [facility]; [facility] Work Phone: Comment on above: PATIENT NOT FASTINGP ERFORMED BY: CB [facility] [id number] [place] [id number] ALT [Catalytic activity/Vol] 13 [iU]/L Normal 0-32 [facility] Work Phone: Comment on above: PATIENT NOT FASTINGP ERFORMED BY: CB [facility] [id number] [place] [id number] ALT [Catalytic activity/Vol] 13 U/L Normal 0-32 [facility]; [facility] Work Phone: Comment on above: PATIENT NOT FASTINGP ERFORMED BY: ANGELINE [facility] [id number] [place] [id number] AST [Catalytic activity/Vol] 16 [iU]/L Normal 0-40 [facility] Work Phone: Comment on above: PATIENT NOT FASTINGP ERFORMED BY: CB [facility] [id number] [place] [id number] AST [Catalytic activity/Vol] 16 U/L Normal 0-40 [facility]; [facility] Work Phone: Comment on above: PATIENT NOT FASTINGP ERFORMED BY: CB [facility] [id number] [place] [id number] Bilirubin [Mass/Vol] 0.3 mg/dL Normal 0.0-1.2 [facility] Internal Medicine Work Phone: Comment on above: PATIENT NOT FASTINGP ERFORMED BY: CB [facility] [id number] [place] [id number] Calcium [Mass/Vol] 9.8 mg/dL Normal 8.7-10.2 [facility] Work Phone: Comment on above: PATIENT NOT FASTINGP ERFORMED BY: CB [facility] [id number] [place] [id number] Chloride [Moles/Vol] 105 mmol/L Normal 96-106 [facility] Work Phone: Comment on above: PATIENT NOT FASTINGP ERFORMED BY: ANGELINE [facility] [id number] [facility] [place] [id number] CO2 [Moles/Vol] 23 mmol/L Normal 20-29 Comprehen [facility] Internal Medicine Work Phone: Comment on above: PATIENT NOT FASTINGP ERFORMED BY: CB [facility] [id number] [facility] [id number] Creatinine [Mass/Vol] 0.76 mg/dL Normal 0.57-1.00 [facility] Internal Medicine Work Phone: Comment on above: PATIENT NOT FASTINGP ERFORMED BY: ANGELINE [facility] [id number] [facility] [id number] GFR/1.73 sq M predicted among blacks CKD-EPI (S/P/Bld) [Vol rate/Area] 109 mL/min/1.73 Normal [facility] Work Phone: Comment on above: PATIENT NOT FASTINGP ERFORMED BY: ANGELINE [facility] [id number] [facility] [id number] GFR/1.73 sq M predicted among non-blacks CKD-EPI (S/P/Bld) [Vol rate/Area] 94 mL/min/1.73 Normal [facility] Work Phone: Comment on above: PATIENT NOT FASTINGP ERFORMED BY: ANGELINE [facility] [id number] [facility] [id number] Globulin (S) [Mass/Vol] 1.6 g/dL Normal 1.5-4.5 [facility] Work Phone: Comment on above: PATIENT NOT FASTINGP ERFORMED BY: ANGELINE [facility] [id number] [facility] [id number] Glucose [Mass/Vol] 87 mg/dL Normal 65-99 [facility] Internal Medicine Work Phone: Comment on above: PATIENT NOT FASTINGP ERFORMED BY: ANGELINE [facility] [id number] [place] [id number] Potassium [Moles/Vol] 4.8 mmol/L Normal 3.5-5.2 [facility] Internal Medicine Work Phone: Comment on above: PATIENT NOT FASTINGP ERFORMED BY: ANGELINE [facility] [id number] [place] [id number] Protein [Mass/Vol] 6.4 g/dL Normal 6.0-8.5 [facility] Medicine Work Phone: Comment on above: PATIENT NOT FASTINGP ERFORMED BY: ANGELINE [facility] [id number] [address] [place] [id number] Sodium [Moles/Vol] 143 mmol/L Normal 134-144 [facility] Internal Medicine Work Phone: Comment on above: PATIENT NOT FASTINGP ERFORMED BY: ANGELINE [facility] [id number] [address] [place] [id number] Urea nitrogen [Mass/Vol] 9 mg/dL Normal 6-24 [facility] Internal Medicine Work Phone: Comment on above: PATIENT NOT FASTINGP ERFORMED BY: ANGELINE [facility] [id number] [place] [id number] Urea nitrogen/Creatinine [Mass ratio] 12 mg/mg Normal 9-23 [facility] Internal Medicine Work Phone: Comment on above: PATIENT NOT FASTINGP ERFORMED BY: [facility] [id number] [place] [id number] CBC & PLATELETS (AUTO) ([id number])Ordered By: Operations Clerk on 12-23-2019 Erythrocyte distribution width (RBC) [Ratio] 19.9 % Abnormal 11.7-15.4 [facility] Internal Medicine Work Phone: Comment on above: Test(s) Platelets ca lled to Dr Cuadra on 12/24/2019 at 05:54 ESTPATIENT NOT FASTINGPERFORMED BY: ANGELINE [facility] [id number] [address] RoadD[address] [place] [id number] BY: [address] [id number] Hematocrit (Bld) [Volume fraction] 26.1 % Abnormal 34.0-46.6 [facility] Work Phone: Comment on above: Test(s) Platelets ca lled to Dr Cuadra on 12/24/2019 at 05:54 ESTPATIENT NOT FASTINGPERFORMED BY: Stamped70 [facility] [id number] BY: [employer] [address] [id number] Hemoglobin (Bld) [Mass/Vol] 6.9 g/dL Abnormal 11.1-15.9 [facility] Internal Medicine Work Phone: Comment on above: Test(s) Platelets ca lled to Dr Cuadra on 12/24/2019 at 05:54 ESTPATIENT NOT FASTINGPERFORMED BY: Stamped70 [facility] [id number] BY: Chroma [address] [id number] MCH (RBC) [Entitic mass] 16.5 pg Abnormal 26.6-33.0 [facility] Internal Medicine Work Phone: Comment on above: Test(s) Platelets ca lled to Dr Cuadra on 12/24/2019 at 05:54 ESTPATIENT NOT FASTINGPERFORMED BY: Stamped70 [facility] [id number] BY: [employer] [id number] MCHC (RBC) [Mass/Vol] 26.4 g/dL Abnormal 31.5-35.7 [facility] Internal Medicine Work Phone: Comment on above: Test(s) Platelets ca lled to Dr Cuadra on 12/24/2019 at 05:54 ESTPATIENT NOT FASTINGPERFORMED BY: ANGELINE [employer]70 [facility] [id number] BY: [employer] [address] [id number] MCV (RBC) [Entitic vol] 63 fL Abnormal 79-97 [facility] Work Phone: Comment on above: Test(s) Platelets ca lled to Dr Cuadra on 12/24/2019 at 05:54 ESTPATIENT NOT FASTINGPERFORMED BY: Stamped70 [facility] [id number] BY: [employer] F[address]ursuyro[address] [id number] Morphology Dragan (Bld) [Interp] Note: Normal [facility] Work Phone: Comment on above: Verified by microsco pic examination. Test(s) Platelets ca lled to Dr Cuadra on 12/24/2019 at 05:54 ESTPATIENT NOT FASTINGPERFORMED BY: Stamped70 [facility] [id number] BY: [employer] R[address] [id number] Platelets (Bld) [#/Vol] 1036 {x10E3/uL} Abnormal 150-450 [facility] Work Phone: Comment on above: Platelets vary in si ze.Large platelets were observed. Test(s) Platelets ca lled to Dr Cuadra on 12/24/2019 at 05:54 ESTPATIENT NOT FASTINGPERFORMED BY: [employer] Pnthsu3223 [facility] [id number] BY: [employer] [id number] Platelets (Bld) [#/Vol] 1036 10*3/uL Abnormal 150-450 [facility]; [facility] Work Phone: Comment on above: Platelets vary in si ze.Large platelets were observed. Test(s) Platelets ca lled to Dr Cuadra on 12/24/2019 at 05:54 ESTPATIENT NOT FASTINGPERFORMED BY: [id number] [facility] [id number] BY: [employer] [id number] RBC (Bld) [#/Vol] 4.17 {x10E6/uL} Normal 3.77-5.28 [facility] Work Phone: Comment on above: Polychromasia presen t Test(s) Platelets ca lled to Dr Cuadra on 12/24/2019 at 05:54 ESTPATIENT NOT FASTINGPERFORMED BY: ANGELINE LabContourrp Fimmmh4233 [facility] [id number] BY: Zoe Majeste[address] [id number] RBC (Bld) [#/Vol] 4.17 10*6/uL Normal 3.77-5.28 [facility] Internal Medicine; [facility] Work Phone: Comment on above: Polychromasia presen t Test(s) Platelets ca lled to Dr Cuadra on 12/24/2019 at 05:54 ESTPATIENT NOT FASTINGPERFORMED BY: This Week In [id number] [facility] [id number] BY: [employer] Sefshteskn4000[address] [id number] WBC (Bld) [#/Vol] 5.8 {x10E3/uL} Normal 3.4-10.8 [facility] Internal Medicine Work Phone: Comment on above: Test(s) Platelets ca lled to Dr Cuadra on 12/24/2019 at 05:54 ESTPATIENT NOT FASTINGPERFORMED BY: [id number] [facility] [id number] BY: [employer] Mjoeaynuwu906[address] [id number] WBC (Bld) [#/Vol] 5.8 10*3/uL Normal 3.4-10.8 [facility] Internal Medicine; [facility] Work Phone: Comment on above: Test(s) Platelets ca lled to Dr Cuadra on 12/24/2019 at 05:54 ESTPATIENT NOT FASTINGPERFORMED BY: This Week In [id number] [facility] [id number] BY: [employer] Vdsurwonir16[address] [id number] Immunoglobulins, Quantitativ e, IgA,IgE, IgG, IgM (21990)Ordered By: Operations Clerk on 12-23-2019 IgA [Mass/Vol] mg/dL Abnormal 87-352 [facility] Internal Medicine Work Phone: Comment on above: Result confirmed on concentration. Test(s) Platelets ca lled to Dr Cuadra on 12/24/2019 at 05:54 ESTPATIENT NOT FASTINGPERFORMED BY: Stamped70 [facility]UNC [facility] [id number] BY: Chroma [address] [id number] IgA [Mass/Vol] mg/dL Abnormal 87-352 [facility]; [facility] Work Phone: Comment on above: Result confirmed on concentration. Test(s) Platelets ca lled to Dr Cuadra on 12/24/2019 at 05:54 ESTPATIENT NOT FASTINGPERFORMED BY: Stamped70 [facility]eliCap[facility] NetworkUNC Health [id number] BY: [employer] [id number] IgE Qn [IU]/L Abnormal 6-495 [facility] Work Phone: Comment on above: Test(s) Platelets ca lled to Dr Cuadra on 12/24/2019 at 05:54 ESTPATIENT NOT FASTINGPERFORMED BY: [id number] [facility] [id number] BY: [employer] [id number] IgE Qn [IU]/L Abnormal 6-495 [facility]; [facility] Work Phone: Comment on above: Test(s) Platelets ca lled to Dr Cuadra on 12/24/2019 at 05:54 ESTPATIENT NOT FASTINGPERFORMED BY: Inaaya6370 [facility]omarkersSent[facility] [id number] BY: [employer] [id number] IgG [Mass/Vol] 381 mg/dL Abnormal 586-1602 [employer] Internal Medicine Work Phone: Comment on above: Test(s) Platelets ca lled to Dr Cuadra on 12/24/2019 at 05:54 ESTPATIENT NOT FASTINGPERFORMED BY: [facility]6370 [facility] [id number] BY: [address] [id number] IgM [Mass/Vol] 32 mg/dL Normal 26-217 [employer] Internal Medicine Work Phone: Comment on above: Test(s) Platelets ca lled to Dr Cuadra on 12/24/2019 at 05:54 ESTPATIENT NOT FASTINGPERFORMED BY: ANGELINE [facility] Oeyngr1900 [facility] [id number] BY: [address] [id number] 2019 Novel Coronavirus (COVI D-19), MICHELLE ([id number])Ordered By: Operations Clerk on 12-12-20192018 Novel Coronavirus (COVID-19), MICHELLE ([id number]) Not Detected Normal [facility] Work Phone: Comment on above: This test was develo ped and its performance characteristics determinedby [employer]. This test has not been FDA cleared [...] orrevoked sooner. PATIENT NOT FASTINGP ERFORMED BY: Zoe Majeste[address] [id number] Information: NASAL 2019 Novel Coronavirus (COVID-19), MICHELLE ([id number]) Not detected Normal [facility]; [facility] Work Phone: Comment on above: This test was develo ped and its performance characteristics determinedby [employer]. This test has not been FDA cleared [...] orrevoked sooner. PATIENT NOT FASTINGP ERFORMED BY: Zoe Majeste[address] [id number] Information: NASAL Vital Signs Date Time Vital Sign Value Performing Clinician Facility 12-08-2024 09:17-0400 Body temperature 98 [degF] Dr. Yarelis Fitzpatrick DO Work Phone: [facility] 12-08-2024 09:17-0400 Diastolic blood pressure 96 mm[Hg] Dr. Yarelis Fitzpatrick DO Work Phone: [facility] 12-08-2024 09:17-0400 Heart rate 106 /min Dr. Yarelis Fitzpatrick DO Work Phone: [facility] 12-08-2024 09:17-0400 Respiratory rate 22 /min Dr. Yarelis Fitzpatrick DO Work Phone: [facility] 12-08-2024 09:17-0400 SaO2% (BldA) [Mass fraction] 97 % Dr. Yarelis Fitzpatrick DO Work Phone: [facility] 12-08-2024 09:17-0400 Systolic blood pressure 148 mm[Hg] Dr. Yarelis Fitzpatrick DO Work Phone: [facility] 12-08-2024 06:50-0400 Body height 167.[address] Yarelis Fitzpatrick DO Work Phone: [facility] 12-08-2024 06:50-0400 Body mass index (BMI) [Ratio] 22.6 kg/m2 Dr. Yarelis Fitzpatrick DO Work Phone: [facility] 12-08-2024 06:50-0400 Body weight 63.[address] Yarelis Fitzpatrick DO Work Phone: [facility] 11-06-2024 23:37-0400 Body temperature 98.5 [degF] Dr. Yarelis Fitzpatrick DO Work Phone: [facility] 11-06-2024 23:37-0400 Diastolic blood pressure 89 mm[Hg] Dr. Yarelis Fitzpatrick DO Work Phone: [facility] 11-06-2024 23:37-0400 Heart rate 98 /min Dr. Yarelis Fitzpatrick DO Work Phone: [facility] 11-06-2024 23:37-0400 Respiratory rate 18 /min Dr. Yarelis Fitzpatrick DO Work Phone: [facility] 11-06-2024 23:37-0400 SaO2% (BldA) [Mass fraction] 97 % Dr. Yarelis Fitzpatrick DO Work Phone: [facility] 11-06-2024 23:37-0400 Systolic blood pressure 163 mm[Hg] Dr. Yarelis Fitzpatrick DO Work Phone: [facility] 11-06-2024 21:19-0400 Body height 167.[address] Yarelis Fitzpatrick DO Work Phone: [facility] 11-06-2024 21:19-0400 Body mass index (BMI) [Ratio] 22.6 kg/m2 Dr. Yarelis Fitzpatrick DO Work Phone: [facility] 11-06-2024 21:19-0400 Body weight 63.[address] Yarelis Fitzpatrick DO Work Phone: [facility] 11-01-2024 09:28-0400 Body mass index (BMI) [Ratio] 22.2 kg/m2 Dr. Yarelis Fitzpatrick DO Work Phone: [facility] 11-01-2024 09:28-0400 Body temperature 97.6 [degF] Dr. Yarelis Fitzpatrick DO Work Phone: [facility] 11-01-2024 09:28-0400 Body weight 62.[address] Yarelis Fitzpatrick DO Work Phone: [facility] 11-01-2024 09:28-0400 Diastolic blood pressure 90 mm[Hg] Dr. Yarelis Fitzpatrick DO Work Phone: [facility] 11-01-2024 09:28-0400 Heart rate 73 /min Dr. Yarelis Fitzpatrick DO Work Phone: [facility] 11-01-2024 09:28-0400 Respiratory rate 20 /min Dr. Yarelis Fitzpatrick DO Work Phone: [facility] 11-01-2024 09:28-0400 SaO2% (BldA) [Mass fraction] 95 % Dr. Yarelis Fitzpatrick DO Work Phone: [facility] 11-01-2024 09:28-0400 Systolic blood pressure 144 mm[Hg] Dr. Yarelis Fitzpatrick DO Work Phone: [facility] 08-30-2024 08:09-0500 Body height 167.[address] Yarelis Fitzpatrick DO Work Phone: [facility] 08-30-2024 08:09-0500 Body mass index (BMI) [Ratio] 23.1 kg/m2 Dr. Yarelis Fitzpatrick DO Work Phone: [facility] 08-30-2024 08:09-0500 Body temperature 97.7 [degF] Dr. Yarelis Fitzpatrick DO Work Phone: [facility] 08-30-2024 08:09-0500 Body weight 64.[address] Yarelis Fitzpatrick DO Work Phone: [facility] 08-30-2024 08:09-0500 Diastolic blood pressure 86 mm[Hg] Dr. Yarelis Fitzpatrick DO Work Phone: [facility] 08-30-2024 08:09-0500 Heart rate 92 /min Dr. Yarelis Fitzpatrick DO Work Phone: [facility] 08-30-2024 08:09-0500 Respiratory rate 14 /min Dr. Yarelis Fitzpatrick DO Work Phone: [facility] 08-30-2024 08:09-0500 SaO2% (BldA) [Mass fraction] 96 % Dr. Yarelis Fitzpatrick DO Work Phone: [facility] 08-30-2024 08:09-0500 Systolic blood pressure 161 mm[Hg] Dr. Yarelis Fitzpatrick DO Work Phone: [facility] 08-15-2023 08:44-0500 Body height 167.[address] Yarelis Fitzpatrick Work Phone: [facility] 08-15-2023 08:44-0500 Body mass index (BMI) [Ratio] 22.3 kg/m2 Dr. Yarelis Fitzpatrick Work Phone: [facility] 08-15-2023 08:44-0500 Body temperature 97.6 [degF] Dr. Yarelis Fitzpatrick Work Phone: [facility] 08-15-2023 08:44-0500 Body weight 62.[address] Yarelis Fitzpatrick Work Phone: [facility] 08-15-2023 08:44-0500 Diastolic blood pressure 91 mm[Hg] Dr. Yarelis Fitzpatrick Work Phone: [facility] 08-15-2023 08:44-0500 Heart rate 89 /min Dr. Yarelis Fitzpatrick Work Phone: [facility] 08-15-2023 08:44-0500 Respiratory rate 18 /min Dr. Yarelis Fitzpatrick Work Phone: [facility] 08-15-2023 08:44-0500 SaO2% (BldA) [Mass fraction] 98 % Dr. Yarelis Fitzpatrick Work Phone: [facility] 08-15-2023 08:44-0500 Systolic blood pressure 152 mm[Hg] Dr. Yarelis Fitzpatrick Work Phone: [facility] 01-24-2023 06:02-0400 Body height 167.[address] Yarelis Fitzpatrick Work Phone: [facility] 01-24-2023 06:02-0400 Body mass index (BMI) [Ratio] 21.4 kg/m2 Dr. Yarelis Fitzpatrick Work Phone: [facility] 01-24-2023 06:02-0400 Body temperature 98.2 [degF] Dr. Yarelis Fitzpatrick Work Phone: [facility] 01-24-2023 06:02-0400 Body weight 60.[address] Yarelis Fitzpatrick Work Phone: [facility] 01-24-2023 06:02-0400 Diastolic blood pressure 88 mm[Hg] Dr. Yarelis Fitzpatrick Work Phone: [facility] 01-24-2023 06:02-0400 Heart rate 107 /min Dr. Yarelis Fitzpatrick Work Phone: [facility] 01-24-2023 06:02-0400 Respiratory rate 18 /min Dr. Yarelis Fitzpatrick Work Phone: [facility] 01-24-2023 06:02-0400 SaO2% (BldA) [Mass fraction] 96 % Dr. Yarelis Fitzpatrick Work Phone: [facility] 01-24-2023 06:02-0400 Systolic blood pressure 144 mm[Hg] Dr. Yarelis Fitzpatrick Work Phone: [facility] 01-05-2023 09:46-0400 Body height 167.64 cm Patience [...] Phone: 01-05-2023 09:46-0400 Body weight 60.78 kg Patienec Matute MA [facility]; [facility] Work Phone: 12-30-2022 11:59-0400 Body height 167.64 cm [facility]; [facility] Work Phone: Comment on above: VIRTUAL 12-30-2022 11:59-0400 Body mass index (BMI) [Ratio] 23.24 kg/m2 [facility]; [facility] Work Phone: Comment on above: VIRTUAL 12-30-2022 11:59-0400 Body surface area Derived from formula 1.74 m2 [facility]; [facility] Work Phone: Comment on above: VIRTUAL 12-30-2022 11:59-0400 Body weight 65.32 kg [facility]; [facility] Work Phone: Comment on above: VIRTUAL 12-16-2022 11:07-0400 Body height 167.64 cm Kiesha Slarb [employer] AND [employer] OPERATOR [facility]; [facility] Work Phone: 12-16-2022 11:07-0400 Body mass index (BMI) [Ratio] 23.24 kg/m2 Kiesha Slarb [employer] AND [employer] OPERATOR [facility]; [facility] Work Phone: 12-16-2022 11:07-0400 Body surface area Derived from formula 1.74 m2 Kiesha Slarb [employer] AND [employer] OPERATOR [facility]; [facility] Work Phone: 12-16-2022 11:07-0400 Body temperature 97.9 [degF] Kiesha Slarb [employer] AND [employer] OPERATOR [facility]; [facility] Work Phone: Comment on above: Method: Temporal 12-16-2022 11:07-0400 Body weight 65.32 kg Kiesha Slarb [employer] AND [employer] OPERATOR [facility]; [facility] Work Phone: 12-16-2022 11:07-0400 Diastolic blood pressure 78 mm[Hg] Kiesha Slarb [employer] AND [employer] OPERATOR [facility]; [facility] Work Phone: Comment on above: Patient Position: Sitting; Cuff Location : Left Arm; Cuff Size: Standard 12-16-2022 11:07-0400 Heart rate 86 /min Kiesha Slarb [employer] OPERATOR [facility]; [facility] Work Phone: Comment on above: Pattern: Regular 12-16-2022 11:07-0400 Respiratory rate 18 /min Kiesha Slarb [employer] OPERATOR [facility]; [facility] Work Phone: Comment on above: Pattern: Unlabored 12-16-2022 11:07-0400 SaO2% (BldA) [Mass fraction] 98 % Kiesha Slarb [employer] AND [employer] OPERATOR [facility]; [facility] Work Phone: Comment on above: Room air 12-16-2022 11:07-0400 Systolic blood pressure 122 mm[Hg] Kiesha Slarb [employer] AND [employer] OPERATOR [facility]; [facility] Work Phone: Comment on above: Patient Position: Sitting; Cuff Location : Left Arm; Cuff Size: Standard 12-05-2022 12:10-0400 Body height 167.64 cm Yarelis Amari DO Work Phone: [facility] [...] Sitting 11-07-2022 00:57-0400 Body temperature 98.4 [degF] [facility] 11-07-2022 00:57-0400 Diastolic blood pressure 88 mm[Hg] [facility] 11-07-2022 00:57-0400 Heart rate 88 /min [facility] 11-07-2022 00:57-0400 Respiratory rate 16 /min [facility] 11-07-2022 00:57-0400 Systolic blood pressure 168 mm[Hg] [facility] 11-07-2022 00:00-0400 SaO2% (BldA) [Mass fraction] 97 % [facility] 11-06-2022 22:01-0400 Body height 167.64 cm [facility] 11-06-2022 22:01-0400 Body mass index (BMI) [Ratio] 23.3 kg/m2 [facility] 11-06-2022 22:01-0400 Body weight 65.54 kg [facility] 11-06-2022 09:26-0400 Body temperature 99.3 [degF] Abrahan Nicholas AUTO SERVICE INSTRUCTOR.PARTS CHASER Work Phone: [facility] 11-06-2022 09:26-0400 Body weight 65.05 kg Abrahan Nicholas AUTO SERVICE INSTRUCTOR.PARTS CHASER Work Phone: [facility] 11-06-2022 09:26-0400 Diastolic blood pressure 92 mm[Hg] Abrahan Nicholas AUTO SERVICE INSTRUCTOR.PARTS CHASER Work Phone: [facility] 11-06-2022 09:26-0400 Heart rate 107 /min Abrahan Nicholas AUTO SERVICE INSTRUCTOR.PARTS CHASER Work Phone: [facility] 11-06-2022 09:26-0400 Respiratory rate 18 /min Abrahan Nicholas AUTO SERVICE INSTRUCTOR.PARTS CHASER Work Phone: [facility] 11-06-2022 09:26-0400 SaO2% (BldA) [Mass fraction] 96 % Abrahan Nicholas AUTO SERVICE INSTRUCTOR.PARTS CHASER Work Phone: [facility] 11-06-2022 09:26-0400 Systolic blood pressure 142 mm[Hg] Abrahan Nicholas AUTO SERVICE INSTRUCTOR.PARTS CHASER Work Phone: [facility] 10-14-2022 10:24-0500 Body height 167.64 cm Yarelis Fitzpatrick DO Work Phone: [facility]; [facility] Work Phone: 10-14-2022 10:24-0500 Body mass index (BMI) [Ratio] 23.24 kg/m2 Yarelis Amari DO Work Phone: [facility]; [facility] Work Phone: 10-14-2022 10:24-0500 Body surface area Derived from formula 1.74 m2 Yarelis Saezon DO Work Phone: [facility]; [facility] Work Phone: 10-14-2022 10:24-0500 Body weight 65.32 kg Yarelis Amari DO Work Phone: [facility]; [facility] Work Phone: 10-14-2022 10:24-0500 Diastolic blood pressure 80 mm[Hg] Yarelis Saezon DO Work Phone: [facility]; [facility] Work Phone: Comment on above: Patient Position: Sitting 10-14-2022 10:24-0500 Heart rate 88 /min Yarelis Amari DO Work Phone: [facility]; [facility] Work Phone: Comment on above: Pattern: Regular 10-14-2022 10:24-0500 Systolic blood pressure 130 mm[Hg] Yarelis Fitzpatrick DO Work Phone: [facility]; [facility] Work Phone: Comment on above: Patient Position: Sitting 10-07-2022 10:41-0500 Body height 167.64 cm Lyubov Lemon [facility]; [facility] Work Phone: 10-07-2022 10:41-0500 Body mass index (BMI) [Ratio] 23.34 kg/m2 Lyubov Lemon [facility]; [facility] Work Phone: 10-07-2022 10:41-0500 Body surface area Derived from formula 1.74 m2 [facility]; [facility] Work Phone: 10-07-2022 10:41-0500 Body temperature 98.5 [degF] Lyubov Lemon [facility]; [facility] Work Phone: Comment on above: Method: Thermal Scan 10-07-2022 10:41-0500 Body weight 65.59 kg Lyubov Lemon [facility]; [facility] Work Phone: 10-07-2022 10:41-0500 Diastolic blood pressure 80 mm[Hg] Lyubov Lemon [facility]; [facility] Work Phone: Comment on above: Patient Position: Sitting; Cuff Location : Left Arm; Cuff Size: Standard 10-07-2022 10:41-0500 Heart rate 86 /min Lyubov Lemon [facility]; [facility] Work Phone: Comment on above: Pattern: Regular 10-07-2022 10:41-0500 Respiratory rate 16 /min Lyubov Lemon [facility]; [facility] Work Phone: Comment on above: Pattern: Unlabored 10-07-2022 10:41-0500 SaO2% (BldA) [Mass fraction] 97 % Lyubov Lemon [facility]; [facility] Work Phone: Comment on above: Room air 10-07-2022 10:41-0500 Systolic blood pressure 130 mm[Hg] Lyubov Lemon [facility]; [facility] Work [...] 04-26-2022 08:41-0400 Body height 167.64 cm Kiesha Michelle [facility]; [facility] Work Phone: Comment on above: pt did not report-virtual 04-26-2022 08:41-0400 Body mass index (BMI) [Ratio] 21.67 kg/m2 Kiesha Martinez [employer] OPERATOR [facility]; [facility] Work Phone: Comment on above: pt did not report-virtual 04-26-2022 08:41-0400 Body surface area Derived from formula 1.69 m2 Kiesha Martinez LPN [facility]; [facility] Work Phone: Comment on above: pt did not report-virtual 04-26-2022 08:41-0400 Body weight 60.9 kg Kiesha Martinez LPN [facility]; [facility] [...] 01-23-2022 08:48-0400 Body temperature 99.39 [degF] Abrahan Nicholas AUTO SERVICE INSTRUCTOR.[employer]S CHASER Work Phone: [facility] 01-23-2022 08:48-0400 Body weight 62.32 kg Abrahan King AUTO SERVICE INSTRUCTOR.PARTS CHASER Work Phone: [facility] 01-23-2022 08:48-0400 Diastolic blood pressure 88 mm[Hg] Abrahan Nicholas AUTO SERVICE INSTRUCTOR.PARTS CHASER Work Phone: [facility] 01-23-2022 08:48-0400 Heart rate 89 /min Abrahanrudy Peterson AUTO SERVICE INSTRUCTOR.PARTS CHASER Work Phone: [facility] 01-23-2022 08:48-0400 Respiratory rate 18 /min Abrahan Nicholas AUTO SERVICE INSTRUCTOR.PARTS CHASER Work Phone: [facility] 01-23-2022 08:48-0400 SaO2% (BldA) [Mass fraction] 97 % Abrahan King AUTO SERVICE INSTRUCTOR.PARTS CHASER Work Phone: [facility] 01-23-2022 08:48-0400 Systolic blood pressure 146 mm[Hg] Abrahan Nicholas AUTO SERVICE INSTRUCTOR.PARTS CHASER Work Phone: [facility] 10-15-2021 08:33-0500 Body height 167.64 cm Haydee Sorensen [facility]; [facility] Work Phone: Comment on above: no vs taken as this is phone encounter d ue to covid 10-15-2021 08:33-0500 Body mass index (BMI) [Ratio] 21.67 kg/m2 Haydee Sorensen CMA [facility]; [facility] Work Phone: Comment on above: no vs taken as this is phone encounter d ue to covid 10-15-2021 08:33-0500 Body surface area Derived from formula 1.69 m2 Haydee Alinaius [facility]; [facility] Work Phone: Comment on above: no vs taken as this is phone encounter d ue to covid 10-15-2021 08:33-0500 Body weight 60.9 kg Haydee Sorensen [facility]; [facility] Work [...] Standard 01-22-2021 08:56-0400 Body height 167.64 cm [facility]; [facility] Work Phone: 01-22-2021 08:56-0400 Body mass index (BMI) [Ratio] 21.67 kg/m2 [facility]; [facility] Work Phone: 01-22-2021 08:56-0400 Body surface area Derived from formula 1.69 m2 [facility]; [facility] Work Phone: 01-22-2021 08:56-0400 Body weight 60.9 kg [facility]; [facility] Work Phone: 10-12-2020 09:15-0500 BMI (Body Mass Index) 21.67 kg/m2 Katia Desai PARTS CHASER Work Phone: [facility]; [facility] Work Phone: 10-12-2020 09:15-0500 Body Temperature 98.8 [degF] Katia Desai CNP Work Phone: [facility]; [facility] Work Phone: 10-12-2020 09:15-0500 Body weight 60.9 kg Katia Desai CNP Work Phone: [facility]; [facility] Work Phone: 10-12-2020 09:15-0500 BSA (Body Surface Area) 1.69 m2 Katia Desai PARTS CHASER Work Phone: [facility]; [facility] Work Phone: 10-12-2020 09:15-0500 Height 167.64 cm Katia Desai PARTS CHASER Work Phone: [facility]; [facility] Work Phone: 10-12-2020 09:15-0500 Pulse (Heart Rate) 82 /min Katia Desai PARTS CHASER Work Phone: [facility]; [facility] Work Phone: Comment on above: Pattern: Regular 09-14-2020 08:56-0500 BMI (Body Mass Index) 21.67 kg/m2 Kiesha Slarb LOCK AND DAM OPERATOR [facility] Internal Medicine; [facility] Work Phone: Comment on above: patient did not report 09-14-2020 08:56-0500 Body weight 60.9 kg Kiesha Slarb LOCK AND DAM OPERATOR [facility]; [facility] Work Phone: Comment on above: patient did not report 09-14-2020 08:56-0500 BSA (Body Surface Area) 1.69 m2 Kiesha Slarb LOCK AND DAM OPERATOR [facility]; [facility] Work Phone: Comment on above: patient did not report 09-14-2020 08:56-0500 Height 167.64 cm Kiesha Slarb LOCK AND DAM OPERATOR [facility]; [facility] [...] BP Diastolic 84 mm[Hg] MANUEL Voss LPN [facility] Internal Medicine Work Phone: Comment on above: Patient Position: Sitting; Cuff Location : Left Arm; Cuff Size: Standard 12-24-2019 08:07-0400 BP Systolic 120 mm[Hg] MANUEL Voss LPN [facility] Internal Medicine Work Phone: Comment on above: Patient Position: Sitting; Cuff Location : Left Arm; Cuff Size: Standard 12-24-2019 08:07-0400 BSA (Body Surface Area) 1.67 m2 MANUEL Voss LPN [facility] Work Phone: 12-24-2019 08:07-0400 Height 167.64 cm MANUEL Voss LPN [facility] Internal Medicine Work Phone: 12-24-2019 08:07-0400 Pulse [...] Phone: 12-12-2019 13:43-0400 Body weight 58.97 kg Lissett Tolbert RN [facility] Work Phone: 12-12-2019 13:43-0400 BSA (Body Surface Area) 1.67 m2 Lissett Tolbert RN [facility] Work Phone: 12-12-2019 13:43-0400 Height 167.64 cm Lissett Tolbert RN [facility] Work Phone: 12-11-2019 13:01-0400 BMI (Body Mass Index) 20.98 kg/m2 Erasmo Huynh LPN [facility] Internal Medicine Work Phone: 12-11-2019 13:01-0400 Body Temperature 98.4 [degF] Erasmo Huynh LPN [facility] Work Phone: Comment on above: Method: Temporal 12-11-2019 13:0400 Body weight 58.97 kg Erasmo Huynh LPN [facility] Work Phone: 12-11-2019 13:0400 BSA (Body Surface Area) 1.67 m2 Erasmo Huynh LPN [facility] Work Phone: 12-11-2019 13:0400 Height 167.64 cm Erasmo Huynh LPN [facility] Work Phone: 02-27-2013 16:35-0400 [...] Phone: Comment on above: Method: Oral 02-04-2013 13:01-0400 Body weight 57.32 kg Lizbeth Rothman RN [...] 08:51-0400 Body Temperature 96.9 [degF] Yarelis Fitzpatrick [facility] Internal Medicine Work Phone: Comment on above: Method: Oral 06-01-2010 08:51-0400 Body weight 57.32 kg Yarelis Fitzpatrick [facility] Internal Medicine Work Phone: 06-01-2010 08:51-0400 BP Diastolic 70 mm[Hg] Yarelis Fitzpatrick [facility] Internal Medicine Work Phone: Comment on above: Patient Position: Sitting; Cuff Location : Left Arm; Cuff Size: Standard 06-01-2010 08:51-0400 BP Systolic 120 mm[Hg] Yarelis Fitzpatrick [facility] Internal Medicine Work Phone: Comment on above: Patient Position: Sitting; Cuff Location : Left Arm; Cuff Size: Standard 06-01-2010 08:51-0400 Pulse (Heart Rate) 78 /min Yarelis Fitzpatrick [facility] Internal Medicine Work Phone: Comment on above: Pattern: Regular 06-01-2010 08:51-0400 Pulse Oximetry 98 % Yarelismichela Fitzpatrick [facility] Internal Medicine Work Phone: Comment on above: Room air 06-01-2010 08:51-0400 Respiratory Rate 17 /min Yarelis Fitzpatrick [facility] Internal Medicine Work Phone: Comment on above: Pattern: Unlabored 06-01-2010 08:51-0400 SaO2% (BldA) [Mass fraction] 98 % Yarelis Fitzpatrick DO Work Phone: [facility]; [facility] Internal Medicine Work Phone: Comment on above: Room air 04-30-2010 09:02-0400 Body Temperature 98.4 [degF] MANUEL Voss LOCK AND DAM OPERATOR [facility] Internal Medicine Work Phone: Comment on above: Method: Oral 04-30-2010 09:02-0400 Body weight 58.97 kg MANUEL Voss LOCK AND DAM OPERATOR [facility] Internal Medicine Work Phone: 04-30-2010 09:02-0400 BP Diastolic 74 mm[Hg] MANUEL Voss [facility] Internal Medicine Work Phone: Comment on above: Patient Position: Sitting; Cuff Location : Left Arm; Cuff Size: Standard 04-30-2010 09:02-0400 BP Systolic 116 mm[Hg] MANUEL Voss [facility] Internal Medicine Work Phone: Comment on above: Patient Position: Sitting; Cuff Location : Left Arm; Cuff Size: Standard 04-30-2010 09:02-0400 Pulse (Heart Rate) 78 /min MANUEL Voss [facility] Internal Medicine Work Phone: Comment on above: Pattern: Regular 04-30-2010 09:02-0400 Respiratory Rate 18 /min MANUEL Voss [facility] Internal Medicine Work Phone: Comment on above: Pattern: Unlabored 12-01-2009 14:23-0400 BMI (Body Mass Index) 21.21 kg/m2 Yarelis Fitzpatrick [facility] Internal Medicine Work Phone: 12-01-2009 14:23-0400 Body Temperature 97.3 [degF] Yarelis Fitzpatrick [facility] Internal Medicine Work Phone: Comment on above: Method: Oral 12-01-2009 14:23-0400 Body weight 59.62 kg Yarelis Fitzpatrick [facility] Work Phone: 12-01-2009 14:23-0400 BP Diastolic 74 mm[Hg] Yarelis Fitzpatrick [facility] Work Phone: Comment on above: Patient Position: Sitting; Cuff Location : Left Arm; Cuff Size: Standard 12-01-2009 14:23-0400 BP Systolic 118 mm[Hg] Yarleis Fitzpatrick [facility] Work Phone: Comment [...] 10:51-0400 Head Circumference 0 cm Yarelis Fitzpatrick [facility] Internal Medicine Work Phone: 01-27-2009 10:51-0400 Head Occipital-frontal circumference 0 cm Lizbeth Rothman RN [facility] Internal Medicine; [facility] Work Phone: 01-27-2009 10:51-0400 Height 167.64 cm Lizbeth Rothman RN [facility] Work Phone: 01-27-2009 10:51-0400 Pulse (Heart Rate) 80 /min Lizbeth Rothman RN [facility] Internal Medicine Work Phone: Comment on above: Pattern: Regular 01-27-2009 10:51-0400 Respiratory Rate 20 /min Lizbeth Rothman RN [facility] Internal Medicine Work Phone: Comment on above: Pattern: Unlabored 12-31-2008 14:31-0400 BMI (Body Mass Index) 21.21 kg/m2 [facility] Internal Medicine Work Phone: 12-31-2008 14:31-0400 Body Temperature 98.3 [degF] [facility] Internal Medicine Work Phone: Comment on above: Method: Oral 12-31-2008 14:31-0400 Body weight 59.62 kg [facility] Internal Medicine Work Phone: 12-31-2008 14:31-0400 BP Diastolic 66 mm[Hg] [facility] Internal Medicine Work Phone: Comment on above: Patient Position: Sitting; Cuff Location : Left Arm; Cuff Size: Standard 12-31-2008 14:31-0400 BP Systolic 108 mm[Hg] [facility] Internal Medicine Work Phone: Comment on above: Patient Position: Sitting; Cuff Location : Left Arm; Cuff Size: Standard 12-31-2008 14:31-0400 BSA (Body Surface Area) 1.67 m2 [facility] Internal Medicine Work Phone: 12-31-2008 14:31-0400 Head Circumference 0 cm Yarelis Fitzpatrick [facility] Internal Medicine Work Phone: 12-31-2008 14:31-0400 Head Occipital-frontal circumference 0 cm [facility] Internal Medicine; [facility] Work Phone: 12-31-2008 14:31-0400 Height 167.64 cm [facility] Internal Medicine Work Phone: 12-31-2008 14:31-0400 Pulse (Heart Rate) 68 /min [facility] Internal Medicine Work Phone: Comment on above: Pattern: Regular 12-31-2008 14:31-0400 Respiratory Rate 18 /min [facility] Internal Medicine Work Phone: Comment on above: Pattern: Unlabored 08-27-2008 15:28-0500 BMI (Body Mass Index) 19.85 kg/m2 Bonnie Patel RN [facility] Internal Medicine Work Phone: 08-27-2008 15:28-0500 Body Temperature 97.2 [degF] Bonnie Patel RN [facility] Internal Medicine Work Phone: Comment on above: Method: Oral 08-27-2008 15:28-0500 Body weight 55.79 kg Bonnie Patel RN [facility] Work Phone: 08-27-2008 15:28-0500 BP Diastolic 62 mm[Hg] Bonnie Patel RN [facility] Work Phone: Comment on above: Patient Position: Sitting; Cuff Location : Left Arm; Cuff Size: Standard 08-27-2008 15:28-0500 BP Systolic 118 mm[Hg] Bonnie Patel RN [facility] [...] 08-27-2008 15:28-0500 Pulse Oximetry 99 % Yarelis Amari [facility] Work Phone: Comment on [...] Phone: 11-30-2007 13:00-0400 Head Circumference 0 cm Yarelis Fitzpatrick [facility] Work Phone: 11-30-2007 [...] 11-19-2007 14:15-0400 Head Circumference 0 cm Yarelis Fitzpatrick [facility] Work Phone: 11-19-2007 14:15-0400 Head Occipital-frontal circumference 0 cm Lizbeth Rothman RN [facility]; [facility] Work Phone: 11-19-2007 14:15-0400 Height 167.64 cm Lizbeth Rothman RN [facility] Work Phone: 11-19-2007 14:15-0400 Pulse (Heart Rate) 80 /min Lizbeth Rothman RN [facility] Work Phone: Comment on above: Pattern: Regular 11-19-2007 14:15-0400 Respiratory Rate 16 /min Lizbeth Rothman RN [facility] Work Phone: Comment on above: Pattern: Unlabored Encounters Encounter Date Encounter Type Care Provider Facility Start: 03-04-2025 ambulatory Yarelis Fitzpatrick Facilit y:[facility] Start: 02-07-2025 ambulatory Yarelis Fitzpatrick Facilit y:[facility] Start: 01-30-2025 End: 01-30-[address] Yarelis Fitzpatrick DO Work Phone: [facility] Work Phone: Start: 01-30-2025 End: 01-30-[address] Rajat Tarango MD -Laboratory Specimen Work Phone: Start: 01-30-2025 End: 01-30-2025 ambulatory Yarelis Fitzpatrick Facility:[facility] Start: 01-11-2025 End: 01-11-[address] Yarelis Fitzpatrick DO Work Phone: [facility] Work Phone: Start: 01-11-2025 End: 01-11-2025 Patient encounter procedure NAREN Del Real -Laboratory Work Phone: Start: 01-11-2025 End: 01-11-2025 ambulatory Rajat Tarango Facility:[facility] Start: 12-21-2024 End: 12-21-[address] Yarelis Fitzpatrick DO Work Phone: [facility] Work Phone: Start: 12-21-2024 End: 12-21-[address] Yarelis Fitzpatrick DO Work Phone: -Laboratory Work Phone: Start: 12-21-2024 End: 12-21-2024 ambulatory Yarelis Fitzpatrick Facility:[facility] Start: 12-09-2024 End: 12-09-2024 ambulatory MISC DOC [facility] Start: 12-08-2024 End: 12-08-2024 Emergency department patient visit Dr. Yarelis Fitzpatrick DO Work Phone: -Emergency Department Work Phone: Start: 11-25-2024 End: 11-25-[address] Yarelis Fitzpatrick DO Work Phone: [facility] Work Phone: Start: 11-25-2024 End: 11-25-[address] Yordan Vanegas DO -Laboratory, Specimen Work Phone: Start: 11-25-2024 End: 11-25-2024 ambulatory Yarelis Fitzpatrick Facility:[facility] Start: 11-06-2024 End: 11-06-2024 Emergency department patient visit Dr. Yarelis Fitzpatrick DO Work Phone: -Emergency Department Work Phone: Start: 11-01-2024 End: 11-01-2024 Patient encounter procedure NAREN Del Real -[place] [facility] Work Phone: Start: 11-01-2024 End: 11-01-2024 ambulatory Yarelis Fitzpatrick Facility:[facility] Start: 10-15-2024 End: 10-15-[address] Yarelis Fitzpatrick DO Work Phone: [facility] Work Phone: Start: 10-15-2024 End: 10-15-2024 Patient encounter procedure NAREN Del Real -Cat Che, [facility] Work Phone: Start: 10-15-2024 End: 10-15-2024 ambulatory Yarelis Fitzpatrick Facility:[facility] Start: 09-27-2024 End: 09-27-2024 Patient encounter procedure NAREN Del Real -Laboratory Work Phone: Start: 09-27-2024 End: 09-27-2024 ambulatory Yarelis Saezon Facility:[facility] Start: 09-04-2024 End: 09-04-[address] Yarelis Fitzpatrick DO -Laboratory, [facility] Start: 09-04-2024 End: 09-04-2024 ambulatory Kimberly Jacobson Facility:[facility] Start: 09-03-2024 End: 09-03-2024 Patient encounter procedure HEALTH NURSE Patience Del Real [facility] Oncology Start: 09-03-2024 End: 09-03-2024 ambulatory Yarelis Fitzpatrick Facility:[facility] Start: 08-30-2024 End: 08-30-2024 Patient encounter procedure HEALTH NURSE Patience Del Real [facility] Pulmonary Medicine Work Phone: Start: 08-30-2024 End: 08-30-2024 ambulatory Alis Mcclain RN NURSE SIGNAL OPERATOR Comment on above: Information Start: 08-28-2024 End: 08-28-2024 Patient encounter procedure Kimberly Jacobson HEALTH NURSE-C -Cat Scan, [facility] Work Phone: Start: 08-27-2024 End: 08-27-[address] Balta Whipple MD -[facility] Start: 08-27-2024 End: 08-28-2024 ambulatory Yarelis Fitzpatrick Facility:[facility] Start: 08-27-2024 End: 08-27-2024 ambulatory Yarelis Fitzpatrick Facility:[facility] Start: 2024 End: 2024 Subsequent hospital visit by physician Dylon Vazquez MD Work Phone: [facility] Comment on above: Common variable immu nodeficiency; Low serum IgG for age; Recurrent infections Start: 2024 End: 2024 ambulatory DYLON VAZQUEZ [facility] Start: 12-18-2023 End: 12-18-2023 ambulatory DYLON VAZQUEZ [facility] Start: 08-17-2023 End: 08-17-[address] Yarelis Fitzpatrick Work Phone: [facility] Work Phone: Start: 08-17-2023 End: 08-17-[address] [facility] Work [facility]: Start: 08-15-2023 End: 08-15-[address] [facility] Work Phone: Start: 07-17-2023 Non-patient / Non-visit Dr. Shannon Fitzpatrick Work Phone: [facility] Start: 07-14-2023 End: 07-14-[address] Yarelis Fitzpatrick Work Phone: [facility] Work Phone: Start: 07-14-2023 End: 07-14-[address] [facility]arelis Fitzpatrick [facility] Work Phone: Start: 02-13-2023 End: 02-13-2023 Subsequent hospital visit by physician Dylon Vazquez MD Work Phone: [facility] Comment on above: Recurrent infections ; Low serum IgG for age Start: 01-24-2023 End: 01-24-[address] Yarelis Fitzpatrick Work Phone: [facility] Work Phone: Start: 01-24-2023 End: 01-24-[address] Yarelis Fitzpatrick Work Phone: [facility]-Laboratory, Specimen Start: 01-24-2023 End: 01-24-[address] [facility]arelis Fitzpatrick [facility] Start: 01-05-2023 End: 01-11-2023 Office outpatient visit 15 minutes Yarelis Fitzpatrick DO Work Phone: [facility] Start: 01-04-2023 End: 01-04-2023 Phone Encounter Yarelis Amari DO Work Phone: [facility] Start: 01-02-2023 End: 01-02-[address] Yarelis Fitzpatrick Work Phone: [facility] Start: 12-30-2022 ambulatory Yarelis Amari DO Comp re[facility]ive Internal Med Start: 12-30-2022 End: 12-30-2022 Office outpatient visit 15 minutes Yarelis Amari DO Work Phone: [facility] Start: 12-21-2022 End: 12-21-2022 Phone Encounter Yarelis Amari DO Work Phone: [facility] Start: 12-16-2022 End: 12-16-[address] Yarelis Fitzpatrick Work Phone: [facility] Radiology Start: 12-16-2022 End: 12-18-2022 Office outpatient visit 25 minutes Yarelis Amari DO Work Phone: [facility] Start: 12-05-2022 End: 12-05-2022 Office outpatient visit 10 minutes Yarelis Amari DO Work Phone: [facility] Start: 11-08-2022 End: 11-08-2022 Phone Encounter Yarelis Amari DO Work Phone: [facility] Start: 11-06-2022 End: 11-07-2022 Emergency department patient visit [facility]-Emergency Department Start: 11-06-2022 End: 11-06-2022 Patient encounter procedure Abrahan Peterson APRN.CNP Work Phone: [facility] Comment on above: Sinobronchitis (Prim juliana Dx); [...] Internal Medicine Start: 04-26-2022 End: 04-26-2022 ambulatory [facility] Work Phone: Start: 04-26-2022 End: 04-26-2022 Patient encounter procedure [facility]-Radiology, [facility] Start: 04-26-2022 End: 05-03-2022 Office outpatient visit 15 minutes Yarelis Amari DO Work Phone: [facility] Start: 04-08-2022 End: 04-08-2022 ambulatory [facility] Work Phone: Start: 04-08-2022 End: 04-08-2022 Patient encounter procedure [facility]-Outpatient Breast Imaging Start: 02-22-2022 End: 02-22-2022 Office outpatient visit 10 minutes Yarelis Amari DO Work Phone: [facility] Start: 01-23-2022 End: 01-23-2022 Patient encounter procedure Abrahan Peterson APRN.PARTS CHASER Work Phone: [facility] Comment on above: Lower resp. tract in fection (Primary Dx); Conjunctivitis of both eyes, unspecified conjunctivitis type Start: 10-15-2021 End: 10-15-2021 Office outpatient visit 15 minutes Yarelis Amari DO Work Phone: [facility] Start: 08-11-2021 End: 08-11-2021 Subsequent hospital visit by physician Xr [facility] Work Phone: Radiology Comment on above: Cough [R05.9] Start: 07-05-2021 End: 07-05-2021 Office outpatient visit 15 minutes Yarelis Amari [...] [facility] Start: 01-22-2021 Review Yarelis Saezo n DO Work Phone: [facility] Start: 11-25-2020 End: 11-25-2020 Office outpatient visit 10 minutes Yarelis Amari [facility] Start: 10-12-2020 End: 10-12-2020 Office outpatient visit 10 minutes Yarelis Amari [facility] Start: 09-14-2020 End: 09-14-2020 Office outpatient visit 15 minutes Yarelis Amari [facility] Start: 03-04-2020 End: 03-04-2020 Annotation/Addendum Yarelis Amari [facility] Start: 02-28-2020 End: 02-28-2020 Annotation/Addendum Yarelis Amari [facility] Start: 01-10-2020 End: 01-10-2020 Office outpatient visit 15 minutes Yarelis Amari [facility] Start: 01-07-2020 End: 01-07-2020 Annotation/Addendum Yarelis Amari [facility] Start: 12-30-2019 End: 12-30-2019 Office outpatient visit 15 minutes Yarelis Amari [facility] Start: 12-24-2019 End: 12-24-2019 Office outpatient visit 15 minutes Yarelis Amari [facility] Start: 12-23-2019 End: 12-23-2019 Annotation/Addendum Yarelis Amari [facility] Start: 12-18-2019 End: 12-24-2019 Office outpatient visit 40 minutes Yarelis Morrison Internal Medicine Start: 12-16-2019 End: 12-16-2019 Annotation/Addendum Yarelis Morrison [facility] Start: 12-16-2019 End: 12-16-2019 Office outpatient visit 15 minutes Yarelis Morrison Internal Medicine Start: 12-12-2019 End: 12-12-2019 Office outpatient visit 5 minutes Yarelis Morrison Internal Medicine Start: 12-11-2019 End: 12-11-2019 Office outpatient visit 25 minutes Yarelis Morrison Internal Medicine Start: 02-27-2013 End: 02-27-2013 Patient encounter procedure Yarelis Morrison Internal Medicine Start: 02-04-2013 End: 02-04-2013 Patient encounter procedure Yarelis Morrison Internal Medicine Start: 06-01-2010 End: 06-01-2010 Office outpatient visit 25 minutes Yarelis Morrison Internal Medicine Start: 04-30-2010 End: 04-30-2010 Office outpatient visit 25 minutes Yarelis Morrison Internal Medicine Start: 12-01-2009 End: 12-01-2009 Office outpatient visit 25 minutes Yarelis Morriosn Internal Medicine Start: 10-02-2009 End: 10-02-2009 Patient encounter procedure Yarelis Morrison Internal Medicine Start: 10-02-2009 End: 10-02-2009 Office outpatient visit 15 minutes Yarelis Morrison [facility] Start: 01-27-2009 End: 01-27-2009 Patient encounter procedure Yarelis Morrison Internal Medicine Start: 12-31-2008 End: 12-31-2008 Office outpatient visit 15 minutes Yarelis Morrison [facility] Start: 08-27-2008 End: 08-27-2008 Patient encounter procedure Yarelis Morrison [facility] Start: 11-30-2007 End: 11-30-2007 Patient encounter procedure Yarelis Morrison Internal [facility] Start: 11-20-2007 End: 11-20-2007 Historical Summary Yarelis Morrison [facility] Start: 11-19-2007 End: 11-19-2007 Patient encounter procedure Yarelis Morrison Internal [facility] Procedures Date Procedure Procedure Detail Performing Clinician Start: 01-30-[address] Yarelis Fitzpatrick DO Work Phone: Start: 01-11-[address] Yarelis Fitzpatrick DO Work Phone: Start: 01-11-[address] Dajuan Fitzpatrick DO Work Phone: Start: 12-08-2024 SARS-CoV-2, [...] Dajuan Fitzpatrick DO Work Phone: Start: 09-04-2024 Vixmu-[id number] measurement Dr. Briseida Fitzpatrick DO Work Phone: Comment on above: Synthorx Electrochemiluminescen ce Immunoassay(ECLIA)Values obtained with different assay methods or kits cannotbe used interchangeably. Results cannot be interpreted asabsolute evidence of the presence or absence of malignantdisease.This test is not interpretable in females.Performed at: [facility] [address] [id number] Director: Ramsey Oleary PhD, Phone: [phone] Start: 09-04-[address] Bubba [...] Yarelis Fitzpatrick DO Work Phone: Start: 08-27-2024 X-ray of [...] Visit Report Procedure Note: See Note; NOTES: [facility] [place] [address] [place] [address] OFFICE VISIT Date of Service: 01/24/23 MR#: [id number] Acct: [id number] Name: OFE GIMENEZ Rep #: [id number] : 1975 Provider: Dr. Rakesh Meeks DO Age/Sex: 47/F Location: [facility] Status: Signed Assessment and Plan Assessment and Plan (1) Bronchiectasis: Status: Acute Plan: The patient presented today for the evaluation of a CT chest which demonstrated bilateral bronchiectasis and apical scarring. The patient has a history of frequent hospitalizations for pneumonia. Her PCP recently referred her to a local meter tester polyphase as she was noted to have an [...] after she has been evaluated by the medical science liaison. The patient may require a prolonged antibiotic [...] referred to Dr. Vazquez of immunology in [place]. She is currently scheduled to see the [...] air Intake Visit Reasons: Abnormal CT scan Cosmetology Professor Required: No DME Vendor: n/a Accompanied by: [...] WITH Contrast Procedure Note: See Note; NOTES: [facility] Imaging Services [address] [place] [address] Chest WITH Contrast MR#: [id number] Acct: [id number] Name: OFE GIMENEZ Rep #: [id number] : 1975 F 47 From: Ugo Oakes MD PCP: Dr. Yarelis Fitzpatrick DO Status: REG CLI Study: Chest WITH Contrast Date of Exam: 01/02/23 Exam# [id number] Ordering Dr: Heydi Meier DO INDICATION: Cough. [...] THYROID: No thyroid lesions within the study [id number]. HEART AND PERICARDIUM: Heart size is normal. [...] Signed: Ugo Oakes MD at 4:28 EDT Reading Location ID and State: [facility] / [place] Tel , Service support , CC: Dr. Heydi Meier DO; Dr. Yarelis Fitzpatrick DO Funds Development Director: Signed Heydi Meier DO Work Phone: Start: 01-02-2023 CT of thorax with contrast Dr. Yarelis Fitzpatrick Work Phone: Start: 12-16-2022 End: 12-17-2022 Chest PA and Lateral Procedure Note: See Note; NOTES: [facility] Radiology [address] [place] [address] Chest PA and Lateral MR#: [id number] Acct: [id number] Name: OFE GIMENEZ Rep #: [id number] : 1975 F 47 From: Yissel Caldwell MD PCP: Dr. Yarelis Fitzpatrick DO Status: DEP AMB Study: Chest PA and Lateral Date of Exam: 12/16/22 Exam# [id number] Ordering Dr: Heydi Meier DO We are [...] Heydi Meier DO; Dr. Yarelis Fitzpatrick DO Funds Development Director: Signed Heydi Meier DO Work Phone: Start: 12-16-2022 Plain chest X-ray Dr. Yarelis Fitzpatrick Work Phone: Start: 11-06-2022 End: 11-07-2022 Abdomen/Pelvis without Cont Procedure Note: See Note; NOTES: [facility] Imaging Services [address] [place] [address] Abdomen/Pelvis without Cont MR#: [id number] Acct: [id number] Name: OFE GIMENEZ Rep #: [id number] : 1975 F 47 From: Rao pinedo MD PCP: Dr. Yarelis Fitzpatrick DO Status: REG ER Study: Abdomen/Pelvis without Cont Date of Exam: 10/19 05/13 Exam# [id number] Ordering Dr: Adelfo Solis DO EXAM: CT [...] reconstruction technique. This report was created using [employer] report generation technology. RADIATION DOSE: Total DLP: [...] Signed: Rao Carter MD at 0:01 EDT Reading Location ID and State: [facility] / [place] Tel , Service support , CC: Dr. Adelfo Solis DO; Dr. Yarelis Fitzpatrick DO Funds Development Director: Signed Yarelis Fitzpatrick DO Work Phone: Start: 11-06-2022 CT of abdomen and pelvis without contrast Start: 11-06-2022 End: 11-07-2022 Emergency Department Summary Procedure Note: See Note; NOTES: [facility] Medical Records Department [address] [place] [address] Emergency Department Summary 11/06/22 MR#: [id number] Acct: [id number] Name: OFE GIMENEZ Rep #: [id number] : 1975 47 From: Adelfo Solis DO [...] % (Auto) 66.8 Lymph % (Auto) 25.4 Mcculloch % (Auto) 6.8 Eos % (Auto) 0.0 [...] Color Urine Clarity Urine pH Ur Specific [place] Urine Protein Urine Glucose (UA) Urine Ketones Urine Occult Blood Urine Nitrite Urine Bilirubin Urine Urobilinogen Ur Leukocyte Esterase Urine RBC Urine WBC Ur Squamous Epith Cells Amorphous Sediment Urine Bacteria Urine Mucus 11/06/22 22:27 WBC RBC Hgb Hct MCV MCH MCHC RDW Std Deviation RDW Coeff of Mendy Plt Count MPV Immature Gran % (Auto) Neut % (Auto) Lymph % (Auto) Mcculloch % (Auto) Eos % (Auto) Baso % (Auto) Absolute Neuts (auto) Absolute Lymphs (auto) Nucleated RBC % Sodium Potassium Chloride Carbon Dioxide Anion Gap BUN Creatinine Estim Creat Clear Calc Est GFR (MDRD) Af Amer Est GFR (MDRD) Non-Af BUN/Creatinine Ratio Glucose Calcium Serum , Qual Urine Color Yellow Urine Clarity Sl. Cloudy Urine pH 6.5 Ur Specific [place] 1.020 Urine Protein 30 H Urine Glucose [...] your Primary Care Provider. Call [facility] ([phone]) or report to the closest Emergency Room. Call 911 if necessary. 11/07/22 0041 <Electronically signed by Adelfo Solis DO> Cosigner Signature (if applicable): CC: Dr. Yarelis Fitzpatrick DO Signed Yarelis Fitzpatrick DO Work Phone: Start: 04-26-2022 End: 04-28-2022 Chest PA and Lateral Procedure Note: See Note; NOTES: [facility] Imaging Services [address] [place] [address] Chest PA and Lateral MR#: [id number] Acct: [id number] Name: OFE GIMENEZ Rep #: [id number] : 1975 F 46 From: Mónica Werner MD PCP: Dr. Yarelis Fitzpatrick DO Status: REG CLI Study: Chest PA and Lateral Date of Exam: 04/26/22 Exam# [id number] Ordering Dr: Kimberly Jacobson HEALTH NURSE-C STUDY: X-RAY CHEST REASON FOR EXAM: Female, [...] 4:43 EDT Reading Location ID and State: [address] [place] [address] , Service support , CC: HEALTH NURSE-C Kimberly Jacobson; Dr. Yarelis Fitzpatrick DO Funds Development Director: Signed Yarelis Fitzpatrick DO Work Phone: Start: 04-26-2022 Plain chest X-ray Start: 04-08-2022 Screening mammography Start: 04-08-2022 End: 04-08-2022 SCRN MAMM (CAD)W/PIERCE BILAT Procedure Note: See Note; NOTES: [facility] Imaging Services [address] [place] [address] SCRN MAMM (CAD)W/PIERCE BILAT MR#: [id number] Acct: [id number] Name: OFE GIMENEZ Rep #: [id number] : 1975 F 46 From: Luis doherty MD PCP: Dr. Yarelis Fitzpatrick, DO Status: REG CLI Study: SCRN MAMM (CAD)W/PIERCE BILAT Date of Exam: 03/21 05/12 Exam# [id number] Ordering Dr: Redd Boss MD MAMMOGRAPHY - [...] delay biopsy of a clinically suspicious abnormality. [id number] Electronically Signed: Luis Rossi MD at 9:29 EDT , CC: Dr. Redd Boss MD; Dr. Yarelis Fitzpatrick DO Funds Development Director: Signed Yarelis Fitzpatrick DO Work Phone: Start: 08-11-2021 Radiologic exam chest 2 views Len Aaron NAJERA.PARTS CHASER Work Phone: Start: 04-01-2021 End: 04-01-2021 Breast Limited Unilateral Comments: See Note; NOTES: [facility] Imaging Services [address] [place] [address] Breast Limited Unilateral MR#: [id number] Acct: [id number] Name: OFE GIMENEZ Rep #: [id number] : 1975 F 45 From: Luis doherty MD PCP: Dr. Yarelis Fitzpatrick DO Status: REG CLI Study: Breast Limited Unilateral Date of Exam: Exam# [id number] Ordering Dr: Redd Boss MD STUDY: ULTRASOUND [...] Redd Boss MD; Dr. Yarelis Fitzpatrick DO Funds Development Director: Signed Yarelis Fitzpatrick DO Work Phone: Start: 03-30-2021 End: 03-31-2021 SCRN MAMM (CAD)W/PIERCE BILAT Comments: See Note; NOTES: [facility] Imaging Services [address] [place] [address] SCRN MAMM (CAD)W/PIERCE BILAT MR#: [id number] Acct: [id number] Name: OFE GIMENEZ Rep #: [id number] : 1975 F 45 From: Luis doherty MD PCP: Dr. Yarelis Fitzpatrick DO Status: PRE CLI Study: SCRN MAMM (CAD)W/PIERCE BILAT Date of Exam: 03/21 Exam# [id number] Ordering Dr: Redd Boss MD MAMMOGRAPHY - [...] delay biopsy of a clinically suspicious abnormality. [id number] Electronically Signed: Luis Rossi MD at 8:20 EDT , Service support , CC: Dr. Redd Boss MD; Dr. Yarelis Fitzpatrick DO Funds Development Director: Signed Yarelis Fitzpatrick DO Work Phone: Start: 09-12-2020 End: 09-12-2020 Discharge Instruction Comments: See Note; NOTES: [facility] Medical Records Department [address] [place] [address] Discharge Instruction 09/12/20 MR#: [id number] Acct: [id number] Name: OFE GIMENEZ Rep #: [id number] : 1975 45 From: Isac Middleton MD [...] your Primary Care Provider. Call [facility] ([phone]) or report to the closest Emergency Room. Call 911 if necessary. 09/12/20 1704 <Electronically signed by Isac Middleton MD> Date Isac Middleton MD Cosigner Signature (If Indicated): Date CC: DO Yarelis Amor Start: 09-12-2020 End: 09-12-2020 Emergency Department Summary Comments: See Note; NOTES: [facility] Medical Records Department [address] [place] [address] Emergency Department Summary 09/12/20 MR#: [id number] Acct: [id number] Name: OFE GIMENEZ Rep #: [id number] : 1975 45 From: Isac Middleton MD PCP: Dr. Yarelis Fitzpatrick DO Status:DEP ER - ER Visit Summary [...] pneumonia Leukocytosis This note was generated with [employer] dictation software. It may contain incorrect words, spelling, and punctuation that were not noted in review of the chart prior to signing ED Disposition - Plan for ED Patient: Referrals: Yarelis Fitzpatrick DO [Primary Care Provider] - What to do if you have Problems For any increased pain, shortness of breath, bleeding, nausea or vomiting, chest pain, or any unexpected problems, contact your Primary Care Provider. Call [facility] ([phone]) or report to the closest Emergency Room. Call 911 if necessary. 09/12/20 1704 <Electronically signed by Isac Middleton MD> Date Isac Middleton MD Cosigner Signature (If Indicated): Date CC: DO Yarelis Amor Start: 09-12-2020 End: 09-12-2020 Chest 1 View (Portable) Comments: See Note; NOTES: [facility] Imaging Services [address] [place] [address] Chest 1 View (Portable) MR#: [id number] Acct: [id number] Name: OFE GIMENEZ Rep #: [id number] : 1975 F 45 From: David Loyola DO PCP: Dr. Yarelis Fitzpatrick DO Status: PRE ER Study: Chest 1 View (Portable) Date of Exam: 09/12/20 Exam# [id number] Ordering Dr: Isac Middleton MD STUDY: X-RAY [...] David Loyola DO at 11:24 EST Tel [phone], Service support , CC: Dr. Isac Middleton MD; Dr. Yarelis Fitzpatrick DO Funds Development Director: Signed Yarelis Fitzpatrick Start: 12-23-2019 End: 12-23-2019 Chest WITH Contrast Comments: See Note; NOTES: [facility] Imaging Services [address] [place] [address] Chest WITH Contrast MR#: [id number] Acct: [id number] Name: OFE GIMENEZ Rep #: [id number] : 1975 F 44 From: Luis doherty MD PCP: Yarelis Fitzpatrick DO Status: REG CLI Study: Chest WITH Contrast Date of Exam: 12/23/19 Exam# [id number] Ordering Dr: Katia Desai HEALTH NURSEDianna STUDY: CT CHEST WITH CONTRAST REASON FOR [...] Service support , CC: DARRYN Desai; Yarelis Fitzpatrick DO Funds Development Director: Signed Katia Desai Work Phone: H/O: section Section As juliana Morrow LOCK AND DAM OPERATOR Comment on above: H/O: section Section Mo anna Huynh LPN Comment on above: H/O: section Section Ja rosa Sorensen OUTSIDE PLANT CABLE ENGINEER Comment on above: H/O: section Section Fermin Calderon MA Comment on above: H/O: section Section Mo anna Lino LOCK AND DAM OPERATOR Comment on above: H/O: section Section Shannon thakkar Shawn OUTSIDE PLANT CABLE ENGINEER Comment on above: H/O: section Section Ch natividad Gerardohyun OUTSIDE PLANT CABLE ENGINEER Comment on above: H/O: section Section Ch natividad Xochilt OUTSIDE PLANT CABLE ENGINEER Comment on above: H/O: section Section An martina Michelle LOCK AND DAM OPERATOR Comment on above: H/O: section Section Ch natividad Gerardohyun OUTSIDE PLANT CABLE ENGINEER Comment on above: H/O: section Section Radha Matute MA Comment on above: Investigation of tra nsfusion reaction Dr. Yarelis Fitzpatrick Work Phone: Respiratory microbial culture Dr. Yarelis Fitzpatrick Work Phone: Plan of Treatment Date Care Activity Detail Author Start: 01-30-2025 Respiratory microbial culture Respiratory Culture [facility] Start: 01-11-2025 Respiratory microbial culture Respiratory Culture [facility] Start: 12-09-2024 End: 12-09-2024 Patient encounter procedure 12/09/2024 10:40 AM EDT Office Visit [facility] [address] [place] [address] [place] [address] 6 month follow up [facility] Comment on above: 6 month follow up Start: 12-09-2024 Measurement of respiratory function [facility] Start: 12-08-2024 [facility] Start: 11-06-2024 End: 11-06-2024 [facility] Start: 11-06-2024 Streptococcus pneumoniae antigen assay [facility] Start: 11-06-2024 [facility] Start: 11-06-2024 Bacteria identified in Blood by Culture Blood Culture [facility] Start: 11-06-2024 Legionella Antigen Legionella Antigen [facility] Start: 11-06-2024 Microscopic observation [Identifier] in Unspecified specimen by Gram stain [facility] Start: 11-06-2024 Respiratory Culture Respiratory Culture [facility] Start: 11-06-2024 Streptococcus pneumoniae Antigen (M Streptococcus pneumoniae Antigen (M [facility] Start: 11-01-2024 Patient referral [facility] Work Phone: Start: 04-21-2024 Covid-19 Vaccine ( season) Covid-19 Vaccine ( season) [facility] Start: 04-21-2024 FLU (#1) FLU (#1) [facility] Start: 04-21-2024 Influenza vaccination Influenza Vaccine (#1) [facility] Start: 2023 Pneumococcal Vaccine: 50+ (2 of 2 - PCV) Pneumococcal Vaccine: 50+ (2 of 2 - PCV) [facility] Start: 2023 Shingrix Vaccine (1 of 2) Shingrix Vaccine (1 of 2) [facility] Start: 04-21-2023 FLU (Season Ended) FLU (Season Ended) [facility] Start: 01-05-2023 Procedure Education Eprescribed prescriptions (G8553) [...] antb titer ea antibody P-ANCA & C-ANCA (09435) [facility]; [facility] Work Phone: Start: 12-16-2022 Blood count complete auto&auto difrntl wbc CBC W/AUTO DIFF WBC (11879) [facility]; [facility] Work Phone: Start: 12-16-2022 Comprehensive metabolic panel METABOLIC PANEL, COMPREHENSIVE (55167) [facility]; [facility] Work Phone: Start: 12-16-2022 Protein total xcpt refractometry urine UPEP (19317) [facility]; [facility] Work Phone: Start: 12-16-2022 Protein electrophoretic fractj&quantj serum SPEP (38256) [facility]; [facility] Work Phone: Start: 12-16-2022 Assay of gammaglobulin ige Immunoglobulins, Quantitative, IgA,IgE, IgG, IgM (07029) [facility]; [facility] Work Phone: Start: 12-16-2022 Lactate dehydrogenase ldh LDH (LD) (LACTATE DEHYDROGENASE) (95251) [facility]; [facility] Work Phone: Start: 12-16-2022 Blood count reticulocyte automated RETICULOCYTE COUNT (23253) [facility]; [facility] Work Phone: Start: 12-16-2022 Iron binding capacity Iron Binding Capacity (TIBC) (09613) [facility]; [facility] Work Phone: Start: 12-16-2022 Assay of ferritin Ferritin (77924) [facility]; [facility] Work Phone: Start: 12-16-2022 Assay of iron Iron (56968) [facility]; [facility] Work Phone: Start: 12-16-2022 Cyanocobalamin vitamin b-12 Vitamin B-12 (cyanocobalamin) (24893) [facility]; [facility] Work Phone: Start: 12-05-2022 Assay of gammaglobulin ige Immunoglobulins Iga/Ige/Igg/Igm (GAME) (48652) [facility]; [facility] Work Phone: Start: 11-07-2022 Patient discharge [facility] Start: 10-14-2022 Procedure Education Eprescribed prescriptions (G8553) [...] Phone: Start: 08-21-2022 DEPRESSION ASSESSMENT DEPRESSION ASSESSMENT [facility] Start: 2022 Procedure Education Eprescribed prescriptions (G8553) [facility]; [facility] Work Phone: Start: 04-26-2022 Procedure Education Eprescribed prescriptions (G8553) [facility]; [facility] Work Phone: Start: 04-21-2022 Influenza vaccination [facility] Start: 02-22-2022 Procedure Education Eprescribed prescriptions [...] Iaadiadoo influenza 2019 Novel Coronavirus (COVID-19), MICHELLE (05493) [facility]; [facility] Work [...] gammaglobulin iga igd igg igm each IGA/IGD/IGG/IGM-EACH (23188) [facility] Work Phone: Comment on above: send all labs to Dr. villeda and emelina Start: 12-30-2019 Fluorescent nonnfct agt antb screen ea antibody FLURESCNT ANTIB SCRN EA (46339) celiac profile [facility] Work Phone: Start: 12-30-2019 Immunoassay analyte qual/semiqual multiple step IMMUNOASSAY, ANALYTE (NON-INFECT) (27272) celiac profile [facility] Work Phone: Start: 12-24-2019 Assay of iron Iron (80562) [facility]; [facility] Work Phone: Start: 12-24-2019 Iron [Mass/Vol] Iron (17081) [facility] Work Phone: Start: 12-24-2019 Tb cell mediated antign respnse gamma interferon QuantiFERON-TB Gold Plus (QFT-Plus) (81841) [facility] Work Phone: Start: 12-16-2019 SARS-CoV-2 Antibody, IgG SARS-CoV-2 Antibody, IgG [facility] Work Phone: Start: 12-16-2019 Procedure Education Eprescribed prescriptions (G8553) [facility] Work Phone: Start: 12-11-2019 Procedure Education Eprescribed prescriptions (G8553) [facility] Work Phone: Start: 12-11-2019 Provider Instructions for Treatment [facility] Work Phone: Start: 2018 COLOGUARD (FIT-DNA) COLOGUARD (FIT-DNA) [facility] Start: 2018 Colonoscopy COLONOSCOPY [facility] Start: 2018 COLORECTAL CANCER SCREENING COLORECTAL CANCER SCREENING [facility] Start: [address] COLONOGRAPHY [facility] Start: 2018 DIABETES SCREEN DIABETES SCREEN [facility] Start: 2018 Diabetes Screening Diabetes Screening [facility] Start: 2018 FECAL OCCULT BLOOD FECAL OCCULT BLOOD [facility] Start: 2018 Lipid panel Lipid Screening [facility] Start: 2018 LIPID SCREEN LIPID SCREEN [facility] Start: 2018 Screening for malignant neoplasm of colon [facility] Start: 2018 SIGMOIDOSCOPY SIGMOIDOSCOPY [facility] Start: 2013 Mammography MAMMOGRAM [facility] Start: 2013 Screening for malignant neoplasm of breast Mammogram Screening [facility] Start: 02-04-2013 Provider Instructions for Treatment [facility] Work Phone: Start: 06-01-2010 Provider Instructions for Treatment [facility] Work Phone: Start: 06-01-2010 Cul bact xcpt urine blood/stool aerobic isol CULTURE, SPUTUM (31107) [facility] Work Phone: Start: 04-30-2010 [...] Start: 11-19-2007 Glucose [Mass/Vol] Glucose, PP/2 Hour (93552) [facility] Work Phone: Start: 11-19-2007 Glucose quantitative blood xcpt reagent strip Glucose, PP/2 Hour (54947) [facility]; [facility] Work Phone: Start: 11-19-2007 Lipid panel LIPID PANEL (98272) [facility] Work Phone: Start: 2003 HPV TESTING HPV TESTING [facility] Start: 1994 Microscopic observation [Identifier] in Cervix by Cyto stain Pap Smear [facility] Start: 1994 PAP TESTING PAP TESTING [facility] Start: 1994 Screening for malignant neoplasm of cervix Cervical Cancer Screening [facility] Start: 1992 Hepatitis B (1 of 3 - 19+ 3-dose series) Hepatitis B (1 of 3 - 19+ 3-dose series) [facility] Start: 1992 Hepatitis B Vaccine (1 of 3 - 19+ 3-dose series) Hepatitis B Vaccine (1 of 3 - 19+ 3-dose series) [facility] Start: 1992 Urine microalbumin profile [facility] Start: 1991 Anxiety Screening Anxiety Screening [facility] Start: 1991 Depression Screening Depression Screening [facility] Start: 1991 HEPATITIS C SCREENING HEPATITIS C SCREENING [facility] Start: 1991 Hepatitis C screening Hepatitis C Screening [facility] Start: 1991 HIV SCREENING HIV SCREENING [facility] Start: 1991 HIV screening HIV Screening [facility] Start: 1989 MenB (1 of 2 - MenB 2-Dose Series Bexsero) MenB (1 of 2 - MenB 2-Dose Series Bexsero) [facility] Start: 1986 Varicella (1 of 2 - 13+ 2-dose series) Varicella (1 of 2 - 13+ 2-dose series) [facility] Start: 1985 Adult depression screening assessment DEPRESSION SCREENING [facility] Start: 1980 Tetanus Diphtheria and Pertussis Vaccines (1 - Tdap) Tetanus Diphtheria and Pertussis Vaccines (1 - Tdap) [facility] Start: 1978 COVID-19 (#1) COVID-19 (#1) [facility] Start: 1978 COVID-19 VACCINE (#1) COVID-19 VACCINE (#1) [facility] Start: 1974 MMR (1 of 1 - Standard series) MMR (1 of 1 - Standard series) [facility] Start: 1974 Varicella (1 of 2 - 2-dose childhood series) Varicella (1 of 2 - 2-dose childhood series) [facility] Start: 1973 COVID-19 (#1) COVID-19 (#1) [facility] Start: 1973 COVID-19 VACCINE (#1) COVID-19 VACCINE (#1) [facility] Start: 1973 HEPATITIS B (1 of 3 - 3-dose series) HEPATITIS B (1 of 3 - 3-dose series) [facility] Bacteria identified in Sputum by Culture [facility] Bacteria identified in Sputum by Respiratory culture [facility] CT Chest WO contrast [facility] Legionella pneumophi la Ag [Presence] in Urine [facility] Lymphocyte Profile Lymphocyte Pr ofile Lab Routine Recurrent infections Low serum IgG for age 0602/13/2023 4:37 PM EDT [facility] Work Phone: Lymphocyte Proliferation, Mitogens Lymphocyte Proliferation, Mitogens Lab Routine Recurrent infections Low serum IgG for age 0602/13/2023 4:37 PM EDT [facility] Measurement of respiratory function [facility] Measurement of respiratory function [facility] Patient Education [facility] Work Phone: Patient referral [facility] Work Phone: S. Pneumo IGG ABS, 2 3 Serotypes S. Pneumo IGG ABS, 23 Serotypes Lab Routine Recurrent infections Low serum IgG for age 0602/13/2023 4:37 PM EDT [facility] Tetanus toxoid, IgG Abs Tetanus toxoid, IgG Abs Lab Routine Recurrent infections Low serum IgG for age 0602/13/2023 4:37 PM EDT [facility] Work Phone: [facility] [...] pneumococcal polysaccharide vaccine, 23 valent Abrahan Peterson APRN.CNP Work Phone: [facility] Payers Date Payer Category Payer Self-pay [id number] 2022 Unknown [id number] 2021 Unknown [id number] 2020 Unknown [id number] 2019 Unknown 2019 Unknown [employer] PPO [id number] 2019-Present [phone] [address] [place] [address] PPO [id number] 2008 Unknown [id number] 2006 Unknown [id number] 1973 Unknown [id number] 2.16.840.1.827083.3.579.2.716 1973 Unknown [id number] 2.840.1.034915.3.579.2.479 1973 Unknown [id number] 2.840.1.649897.3.579.2.479 1973 Unknown [id number] 2.840.1.474746.3.579.2.479 1973 Unknown [id number] 2.840.1.488486.3.579.2.479 Self-pay SELF PAY ER DEPOSIT [id number] Unknown [facility] [id number] Unknown [id number] 2.16840.1.847886.3.579.2.462 Unknown [id number] 2.16840.1.533857.3.579.2.462 Unknown [id number] 2.16840.1.348672.3.579.2.462 Unknown [id number] 2.16840.1.277702.3.579.2.462 Unknown [id number] 2.16840.1.977222.3.579.2.462 Unknown [id number] 2.16840.1.098166.3.579.2.462 Unknown [id number] 2.16840.1.480430.3.579.2.462 Unknown [id number] 2.16.840.1.222759.3.579.2.462 Unknown [id number] 2.16.840.1.827840.3.579.2.462 Unknown [id number] 2.16.840.1.049517.3.579.2.462 Unknown [id number] 2.16.840.1.583513.3.579.2.462 Unknown [id number] 2.16.840.1.478162.3.579.2.462 Unknown [id number] 2.16.840.1.076082.3.579.2.462 Unknown [id number] 2.16.840.1.520849.3.579.2.462 Unknown [id number] 2.16.840.1.319677.3.579.2.462 Unknown [id number] 2.16.840.1.470412.3.579.2.462 Unknown [id number] 2.16.840.1.822876.3.579.2.462 Social History Date Type Detail Facility Start: 07-25-2020 End: 08-11-2021 Caffeine Use Caffeine Use [facility] Work Phone: Comment on above: qd Light Lives with spouse 2 [employer] Start: 11-04-2011 End: 12-08-2024 Tobacco smoking status NHIS Never smoked tobacco [facility] Start: 01-23-2022 End: 11-06-2022 Alcohol intake Not Asked [facility] Start: 1975 Sex Assigned At Not on file [facility] Start: 01-13-2022 End: 01-23-2022 Exposure to SARS-CoV-2 (event) Not sure [facility] Work Phone: Start: 09-12-2020 End: 08-15-2023 Tobacco smoking status NHIS Unknown if ever smoked [facility] Start: 1975 Sex Assigned At Female [facility] Start: 11-04-2011 End: 11-17-2023 Tobacco use and exposure Smokeless tobacco non-user [facility] Work Phone: Start: 07-25-2020 End: 08-11-2021 Gender identity Not on file [facility] National Score (1-100), lower number is lower risk Not on file [facility] Start: 10-28-2024 End: 12-08-2024 Sex Female (finding) [facility] NEGATED: Highlighted row [facility] NEGATED: Highlighted rowStart: NINF History of tobacco use Passive smoker [facility] Mental Status Date Assessment Result Facility 12-08-2024 Cognitive function Awake;Alert;A ppropriate;Follow s Commands [facility] Work Phone: 11-06-2024 Cognitive function Level Of Cons ciousness Awake;Alert;Appropriate;Follow s Commands [facility] Work Phone: Clinical Notes 05-14-2021 to 12-08-2024 Note Date & Type Note Facility 12-08-2024 Discharge summary [facility] 12-08-2024 Radiology Diagnostic study note [facility] Imaging Services [address] [place], [place] [id number] Chest PA and Lateral MR#: [id number] Acct: [id number] Name: OFE GIMENEZ Rep #: [id number] : 1975 F 49 From: Celena Blake MD PCP: Dr. Yarelis Fitzpatrick, DO Status: TN E ER Study:Chest PA and Lateral Date of Exam: 12/08/24 Exam# [id number] Ordering Dr: Magy Mai MD PROCEDURE: CHEST [...] infiltrate or consolidation is seen. Reading Location: [id number] CC: Dr. Yarelis Fitzpatrick DO; Dr. Mike Mai MD ~ Funds Development Director: Signed [facility] 12-08-2024 Hospital Discharge instructions Additional Instructions 1. Discontinue the azithromycin 2. Start the doxycycline once you fill the prescription 3. Take prednisone until gone 4. 2 puffs of your inhaler every 2-4 hours while awake for the next 3 days. [facility] Work Phone: 11-06-2024 Discharge summary [facility] 11-06-2024 Radiology Diagnostic study note [facility] Imaging Services [address] [place] [address] CTA Chest W/WO Contrast MR#: [id number] Acct: [id number] Name: OFE GIMENEZ Rep #: [id number] : 1975 F 49 From: Margarette Gross MD PCP: Dr. Yarelis Fitzpatrick DO Status: RE G ER Study:CTA Chest W/WO Contrast Date of Exam: 11/06/24 Exam# [id number] Ordering Dr: Chico Vanegas DO PROCEDURE: CTA [...] Vanegas DO; Dr. Yarelis Fitzpatrick DO ~ Funds Development Director: Signed [facility] 11-06-2024 Discharge summary Note Date/Time November 06, 2024 11:30pm [facility] Medical Records Department [address] [place] [address] Emergency Department Summary 11/06/24 MR#: [id number] Acct: [id number] Name: OFE GIMENEZ Rep #:[id number] : 1975 49 From: Yordan Phillips PCP: [...] (if applicable): cc: Dr. Yarelis Fitzpatrick DO ~* Signed HPI History of Present Illness Chief Complaint: General Illness Informant: patient and spouse/S.O. Narrative Narrative: 49-year-old female presenting to the emergency room with chest pain cough changein sputum and bodyaches. 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 Meeks and medical science liaison at [facility] Dr. Vazquez. In September of this [...] home oxygen. She is a lifelong non-smoker. [facility] Medical History (Updated 11/06/24 @ 23:10 by [...] 77.6 H Lymph % (Auto) 14.8 L Mcculloch % (Auto) 6.4 Eos % (Auto) 0.2 [...] Clarity Clear Urine pH 8.0 Ur Specific [place] 1.010 Urine Protein Negative Urine Glucose (UA) [...] lobe, concerning for multifocal pneumonia. Reading Location: [facility] Initial EKG: Attestation: I personally reviewed and [...] Culture, Sputum (Routine) Timeframe: 1 Day Facility: [facility] - Location: Laboratory Ordered By: Dr. Yordan Vanegas Primary Care Provider: Yarelis Fitzpatrick Referrals: Yarelis Fitzpatrick DO [Primary Care Provider] - Rajat Velázquez MD [Med Staff - Active Staff] - As soon as possible (for infectious disease) Print Language: Bahraini Disposition Disposition: Home, Self Care What to do if you have Problems For any increased pain, shortness of breath, bleeding, nausea or vomiting, chestpain, or any unexpected problems, contact your Primary Care Provider. Call [facility] ([phone]) or report to the closest Emergency Room. Call 911 if necessary. 11/06/24 2317 <Electronically signed by Yordan Vanegas DO> Cosigner Signature (if applicable): CC: Dr. Yarelis Fitzpatrick, ~ Signed [facility] Work Phone: 1(880) 732-262003-14-2025 Evaluation note* Diagnosis Onset Date Resolution Status Admit Date Bronchiectasis inactive October 10:52am Immunoglobulin deficiency inactive November 01, 2024 10:52am Mass of upper lobe of right lung shawn ctive November 01, 2024 10:52am [facility] Work Phone: 1(344) 531-376202-26-2025 Radiology Diagnostic study note [facility] Imaging Services [address] [place] [id number] Chest WITH Contrast MR#: [id number] Acct: [id number] Name: OFE GIMENEZ Rep #: [id number] : 1975 F 49 From: Juan Rossi MD PCP: Dr. Yarelis Fitzpatrick DO Status: RE G CLI Study:Chest WITH Contrast Date of Exam: 10/15/24 Exam# [id number] Ordering Dr: Sly Jacobson HEALTH NURSE-C PROCEDURE: CHEST WITH CONTRAST REASON FOR EXAM: [...] use of iterative reconstruction technique). Reading Location: [id number] CC: HEALTH NURSEDianna Jacobson; Dr. Yarelis Fitzpatrick, DO ~ Funds Development Director: Signed [facility]01-10-2025 Telephone encounter Note* Telephone Encounter - Alis Mcclain RN - 08/30/2024 1:42 PM EST Patient calling with health information: patient requesting health information about how to be seen, reviewed general nursing knowledge information. Patient verbalized understanding of information provided Patient denies any new or worsening symptoms of which a provider is not aware:Yes [facility]01-10-2025 Miscellaneous Notes* Telephone Encounter - Alis Mcclain RN - 08/30/2024 1:42 PM EST Patient calling with health information: patient requesting health information about how to be seen, reviewed general nursing knowledge information. Patient verbalized understanding of information provided Patient denies any new or worsening symptoms of which a provider is not aware:Yes [facility] Evaluation note* Diagnosis Onset Date Resolution Status Admit Date Mass of upper lobe of right lung acute August 30 8:47am Bronchiectasis chronic August 302024 8:47am Immunoglobulin deficiency chronic August 30, 2024 8:47am [facility] Work Phone: 1(339) 698-626801-10-2025 Evaluation note* Diagnosis Onset Date Resolution Status Admit Date Bronchiectasis inactive August 302024 8:47am Immunoglobulin deficiency inactive August 30, 2024 8:47am Mass of upper lobe of right lung inactive August 30 8:47am Bronchiectasis inactive October 10:52am Immunoglobulin deficiency inactive November 01, 2024 10:52am Mass of upper lobe of right lung inactive November 01, 2024 10:52am [facility] Work Phone: 1(910) 889-845411-27-2023 Procedure [facility] 11-07-[address] Solis [facility] November 07, 2022 12:41am Note Date/Time November 06, 2022 11: 09pm [facility] Medical Records Department [address] [place] [address] Emergency Department Summary 11/06/22 MR#: [id number] Acct: [id number] Name: OFE GIMENEZ Rep #:[id number] : 1975 47 From: Adelfo Solis DO [...] % (Auto) 66.8 Lymph % (Auto) 25.4 Mcculloch % (Auto) 6.8 Eos % (Auto) 0.0 [...] Color Urine Clarity Urine pH Ur Specific [place] Urine Protein Urine Glucose (UA) Urine Ketones Urine Occult Blood Urine Nitrite Urine Bilirubin Urine Urobilinogen Ur Leukocyte Esterase Urine RBC Urine WBC Ur Squamous Epith Cells Amorphous Sediment Urine Bacteria Urine Mucus 11/06/22 22:27 WBC RBC Hgb Hct MCV MCH MCHC RDW Std Deviation RDW Coeff of Mendy Plt Count MPV Immature Gran % (Auto) Neut % (Auto) Lymph % (Auto) Mcculloch % (Auto) Eos % (Auto) Baso % (Auto) Absolute Neuts (auto) Absolute Lymphs (auto) Nucleated RBC % Sodium Potassium Chloride Carbon Dioxide Anion Gap BUN Creatinine Estim Creat Clear Calc Est GFR (MDRD) Af Amer Est GFR (MDRD) Non-Af BUN/Creatinine Ratio Glucose Calcium Serum , Qual Urine Color Yellow Urine Clarity Sl. Cloudy Urine pH 6.5 Ur Specific [place] 1.020 Urine Protein 30 H Urine Glucose [...] Signed: Rao Carter MD at 0:01 EDT Reading Location ID and State: [facility]8 / [place] Tel , Service support , Discharge Plan Triage Chief Complaint: Abd [...] your Primary Care Provider. Call [facility] ([phone]) or report to the closest Emergency Room. Call 911 if necessary. 11/07/22 0041 <Electronically signed by Adelfo Solis DO> Cosigner Signature (if applicable): CC: Dr. Yarelis Fitzpatrick DO ~ Signed [facility] Work Phone: 1(167) 871-676003-19-2023 History of Present illness Narrative* Abrahan Peterson APRN.PARTS CHASER - 11/06/2022 10:00 AM EDT Subjective HPI [...] - PREDNISONE 20 MG TABLET Abrahan Peterson APRN.ANGEL [facility] NoteHNO ID: [id number] Author: Abrahan Peterson APRN.CNP Service: ? Author [...] Agrees to plan Declines avs Abrahan Peterson [facility] History of Present illness Narrative* Abrahan Peterson APRN.PARTS CHASER - 01/23/2022 9:03 AM EDT Subjective HPI [...] Agrees to plan Declines avs Abrahan Peterson APRN.CNP [facility]22 NoteHNO ID: [id number] Author: Melva Reyna APRN.CNP Service: ? Author [...] have confirmed and edited as necessary, the [facility] Review of Systems Constitutional: Positive for [...] in 24-48 hours with results, available on [employer] - COVID WITH FLUA+B, ROUTINE 4. Acute [...] detail warranting prompt ER evaluation. Melva Reyna APRN.[facility]EL[facility]12-22-2021 NoteHNO ID: [id number] Author: RT Samuel(R) Service: ? Author Type: [...] BY: RT Samuel(R) August 11, 2021 6:58 [facility]12-22-2021 NoteHNO ID: [id number] Author: Len Marinelli APRN.PARTS CHASER Service: ? Author Type: Nurse Practitioner Type: [...] Patient agreeable to treatment plan. Len Marinelli APRN.[facility]12-22-2021 History of Present illness Narrative* Ruy Torres [...] 11, 2021 6:58 PM [facility]2021 NoteHNO ID: [id number] Author: Margarito Alston PA-C Service: ? Author Type: Physician Wheel Blocker Type: Progress Notes Filed: 05/15/2021 9:13 AM [...] have confirmed and edited as necessary, the [facility] Review of Systems Constitutional: Positive for [...] testing ordered; Results will be released to [facility] in 24-48 hours Discussed quarantine, social distancing, hand washing/proper hygiene. Rest, fluids, OTC medications discussed -Reviewed red flags (ie chest pain, shortness of breath) with patient and when to seek care sooner. 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 She was prescribed azithromycin. Her fifth dose [...] similar symptoms: Yes Recent Illness/Hospitalization: Yes [facility] Medical History Immunoglobulin deficiency Mass of upper [...] % (Auto) 69.1 Lymph % (Auto) 21.5 Mcculloch % (Auto) 7.8 Eos % (Auto) 0.7 [...] infiltrate or consolidation is seen. Reading Location: [id number] Treatment and Re-Evaluation :: Patient was reexamined [...] have an appointment with her doctor at [facility] tomorrow, Dr. Vazquez she was instructed to discontinue the azithromycin. Discharge Plan Triage Chief Complaint: Chest Other ED Provider: Mike Mai Dx/Rx/DC Orders Clinical Impression: Pneumonia, Acute bronchospasm, Sinus tachycardia seen on compliance monitor, Immune deficiency disorder, Elevated blood-pressure reading without [...] for the next 3 days. Print Language: Bahraini Disposition Disposition: Home, Self Care What to do if you have Problems For any increased pain, shortness of breath, bleeding, nausea or vomiting, chestpain, or any unexpected problems, contact your Primary Care Provider. Call [facility] ([phone]) or report to the closest Emergency Room. Call 911 if necessary. 12/08/24 0854 <Electronically signed by Mike Mai MD> Cosigner Signature (if applicable): CC: Dr. Yarelis Fitzpatrick, DO ~ Signed [facility] Work Phone: Evaluation note* Diagnosis Lower resp. tract infection- Primary Other diseases of respiratory system, not elsewhere classified Conjunctivitis of both eyes, unspecified conjunctivitis type documented in this encounter [facility] noteNo assessment information availableWDiley [facility] Work Phone: Evaluation note* Diagnosis Sinobronchitis- Primary Unspecified sinusitis (chronic) Bacterial conjunctivitis Other conjunctivitis History of asthma Personal history of other diseases of respiratory system documented in this encounter [facility] note* Diagnosis Onset Date Resolution Status Bronchiectasis acute Immunoglobulin deficiency ac [facility] Work Phone: Evaluation note* Diagnosis Recurrent infections Unspecified infectious and parasitic diseases Low serum IgG for age [facility] Diagnosis Onset Date Resolution Status Bronchiectasis chronic Immunoglobulin deficiency [facility] Work Phone: Evaluation note* Diagnosis Cough documented in this encounter [facility] note* Diagnosis Common variable immunodeficiency Low serum IgG for age Recurrent infections Unspecified infectious and parasitic diseases [facility] Name Dates Details How to Access [employer]ion Online using Patient [employer] and [employer] Apps Indication:Nonsmoker Start:22-Jan-2021 Instruction Type:Patient Education Patient Instructions Indication:Nonsmoker Start:22-Jan-2021 Instruction Type:Provider Instructions for Treatment Patient Instructions Indication:Nonsmoker Start:12-Oct-2020 Instruction Type:Provider Instructions for Treatment How to Access Health Informa tion Online using Patient Portal and [employer] Apps Indication:Nonsmoker Start:12-Oct-2020 Instruction Type:Patient Education Patient Instructions Indication:BMI 21.0-21.9, adult Start:14-Sep-2020 Instruction Type:Provider Instructions for Treatment How to Access Health Informa tion Online using Patient Portal and [employer] Apps Indication:BMI 21.0-21.9, adult Start:14-Sep-2020 Instruction Type:Patient [...] Informa tion Online using Patient Portal and [employer] Apps Indication:Nonsmoker Start:22-Jan-2021 Instruction Type:Patient Education Patient Instructions Indication:Nonsmoker Start:22-Jan-2021 Instruction Type:Provider Instructions for Treatment Patient Instructions Indication:Nonsmoker Start:12-Oct-2020 Instruction Type:Provider Instructions for Treatment How to Access Health Informa tion Online using Patient Portal and [employer] Apps Indication:Nonsmoker Start:12-Oct-2020 Instruction Type:Patient Education Patient Instructions Indication:BMI 21.0-21.9, adult Start:14-Sep-2020 Instruction Type:Provider Instructions for Treatment How to Access Health Informa tion Online using Patient Portal and [employer] Apps Indication:BMI 21.0-21.9, adult Start:14-Sep-2020 Instruction Type:Patient [...] tion Online using Patient Portal and [employer] Apps Indication:Nonsmoker Start:05-Jul-2021 Instruction Type:Patient Education Patient Instructions Indication:Nonsmoker Start:02-Jul-2021 Instruction Type:Provider Instructions for Treatment How to Access Health Informa tion Online using Patient Portal and [employer] Apps Indication:Nonsmoker Start:02-Jul-2021 Instruction Type:Patient Education Patient Instructions Indication:Nonsmoker Start:09-Feb-2021 Instruction Type:Provider Instructions for Treatment How to Access Health Informa tion Online using Patient Portal and [employer] Apps Indication:Nonsmoker Start:09-Feb-2021 Instruction Type:Patient Education How to Access Health Informa tion Online using Patient Portal and [employer] Apps Indication:Nonsmoker Start:22-Jan-2021 Instruction Type:Patient Education Patient Instructions Indication:Nonsmoker Start:22-Jan-2021 Instruction Type:Provider Instructions for Treatment Patient Instructions Indication:Nonsmoker Start:12-Oct-2020 Instruction Type:Provider Instructions for Treatment How to Access Health Informa tion Online using Patient Portal and [employer] Apps Indication:Nonsmoker Start:12-Oct-2020 Instruction Type:Patient Education Patient Instructions Indication:BMI 21.0-21.9, adult Start:14-Sep-2020 Instruction Type:Provider Instructions for Treatment How to Access Health Informa tion Online using Patient Portal and [employer] Apps Indication:BMI 21.0-21.9, adult Start:14-Sep-2020 Instruction Type:Patient [...] tion Online using Patient Portal and [employer] Apps Indication:Nonsmoker Start:15-Oct-2021 Instruction Type:Patient Education Patient Instructions Indication:Nonsmoker Start:05-Jul-2021 Instruction Type:Provider Instructions for Treatment How to Access Health Informa tion Online using Patient Portal and [employer] Apps Indication:Nonsmoker Start:05-Jul-2021 Instruction Type:Patient Education Patient Instructions Indication:Nonsmoker Start:02-Jul-2021 Instruction Type:Provider Instructions for Treatment How to Access Health Informa tion Online using Patient Portal and [employer] Apps Indication:Nonsmoker Start:02-Jul-2021 Instruction Type:Patient Education Patient Instructions Indication:Nonsmoker Start:09-Feb-2021 Instruction Type:Provider Instructions for Treatment How to Access Health Informa tion Online using Patient Portal and [employer] Apps Indication:Nonsmoker Start:09-Feb-2021 Instruction Type:Patient Education How to Access Health Informa tion Online using Patient Portal and [employer] Apps Indication:Nonsmoker Start:22-Jan-2021 Instruction Type:Patient Education Patient Instructions Indication:Nonsmoker Start:22-Jan-2021 Instruction Type:Provider Instructions for Treatment Patient Instructions Indication:Nonsmoker Start:12-Oct-2020 Instruction Type:Provider Instructions for Treatment How to Access Health Informa tion Online using Patient Portal and [employer] Apps Indication:Nonsmoker Start:12-Oct-2020 Instruction Type:Patient Education Patient Instructions Indication:BMI 21.0-21.9, adult Start:14-Sep-2020 Instruction Type:Provider Instructions for Treatment How to Access Health Informa tion Online using Patient Portal and [employer] Apps Indication:BMI 21.0-21.9, adult Start:14-Sep-2020 Instruction Type:Patient [...] tion Online using Patient Portal and [employer] Apps Indication:Nonsmoker Start:22-Feb-2022 Instruction Type:Patient Education Patient Instructions Indication:Nonsmoker Start:15-Oct-2021 Instruction Type:Provider Instructions for Treatment How to Access Health Informa tion Online using Patient Portal and [employer] Apps Indication:Nonsmoker Start:15-Oct-2021 Instruction Type:Patient Education Patient Instructions Indication:Nonsmoker Start:05-Jul-2021 Instruction Type:Provider Instructions for Treatment How to Access Health Informa tion Online using Patient Portal and [employer] Apps Indication:Nonsmoker Start:05-Jul-2021 Instruction Type:Patient Education Patient Instructions Indication:Nonsmoker Start:02-Jul-2021 Instruction Type:Provider Instructions for Treatment How to Access Health Informa tion Online using Patient Portal and [employer] Apps Indication:Nonsmoker Start:02-Jul-2021 Instruction Type:Patient Education Patient Instructions Indication:Nonsmoker Start:09-Feb-2021 Instruction Type:Provider Instructions for Treatment How to Access Health Informa tion Online using Patient Portal and [employer] Apps Indication:Nonsmoker Start:09-Feb-2021 Instruction Type:Patient Education How to Access Health Informa tion Online using Patient Portal and [employer] Apps Indication:Nonsmoker Start:22-Jan-2021 Instruction Type:Patient Education Patient Instructions Indication:Nonsmoker Start:22-Jan-2021 Instruction Type:Provider Instructions for Treatment Patient Instructions Indication:Nonsmoker Start:12-Oct-2020 Instruction Type:Provider Instructions for Treatment How to Access Health Informa tion Online using Patient Portal and [employer] Indication:Nonsmoker Start:12-Oct-2020 Instruction Type:Patient Education Patient Instructions Indication:BMI 21.0-21.9, adult Start:14-Sep-2020 Instruction Type:Provider Instructions for Treatment How to Access Health Informa tion Online using Patient Portal and [employer] Apps Indication:BMI 21.0-21.9, adult Start:14-Sep-2020 Instruction Type:Patient [...] Informa tion Online using Patient Portal and [employer] Apps Indication:Nonsmoker Start:22-Feb-2022 Instruction Type:Patient Education Patient Instructions Indication:Nonsmoker Start:15-Oct-2021 Instruction Type:Provider Instructions for Treatment How to Access Health Informa tion Online using Patient Portal and [employer] Apps Indication:Nonsmoker Start:15-Oct-2021 Instruction Type:Patient Education Patient Instructions Indication:Nonsmoker Start:05-Jul-2021 Instruction Type:Provider Instructions for Treatment How to Access Health Informa tion Online using Patient Portal and [employer] Indication:Nonsmoker Start:05-Jul-2021 Instruction Type:Patient Education Patient Instructions Indication:Nonsmoker Start:02-Jul-2021 Instruction Type:Provider Instructions for Treatment How to Access Health Informa tion Online using Patient Portal and [employer] Apps Indication:Nonsmoker Start:02-Jul-2021 Instruction Type:Patient Education Patient Instructions Indication:Nonsmoker Start:09-Feb-2021 Instruction Type:Provider Instructions for Treatment How to Access Health Informa tion Online using Patient Portal and [employer] Apps Indication:Nonsmoker Start:09-Feb-2021 Instruction Type:Patient Education How to Access Health Informa tion Online using Patient Portal and [employer] Apps Indication:Nonsmoker Start:22-Jan-2021 Instruction Type:Patient Education Patient Instructions Indication:Nonsmoker Start:22-Jan-2021 Instruction Type:Provider Instructions for Treatment Patient Instructions Indication:Nonsmoker Start:12-Oct-2020 Instruction Type:Provider Instructions for Treatment How to Access Health Informa tion Online using Patient Portal and [employer] Apps Indication:Nonsmoker Start:12-Oct-2020 Instruction Type:Patient Education Patient Instructions Indication:BMI 21.0-21.9, adult Start:14-Sep-2020 Instruction Type:Provider Instructions for Treatment How to Access Health Informa tion Online using Patient Portal and [employer] Apps Indication:BMI 21.0-21.9, adult Start:14-Sep-2020 Instruction Type:Patient [...] tion Online using Patient Portal and [employer] Apps Indication:BMI 23.0-23.9, adult Start:10-Jun-2022 Instruction Type:Patient Education Patient Instructions Indication:Nonsmoker Start:26-Apr-2022 Instruction Type:Provider Instructions for Treatment How to Access Health Informa tion Online using Patient Portal and [employer] Apps Indication:Nonsmoker Start:26-Apr-2022 Instruction Type:Patient Education Patient Instructions Indication:Nonsmoker Start:22-Feb-2022 Instruction Type:Provider Instructions for Treatment How to Access Health Informa tion Online using Patient Portal and [employer] Apps Indication:Nonsmoker Start:22-Feb-2022 Instruction Type:Patient Education Patient Instructions Indication:Nonsmoker Start:15-Oct-2021 Instruction Type:Provider Instructions for Treatment How to Access Health Informa tion Online using Patient Portal and [employer] Apps Indication:Nonsmoker Start:15-Oct-2021 Instruction Type:Patient Education Patient Instructions Indication:Nonsmoker Start:05-Jul-2021 Instruction Type:Provider Instructions for Treatment How to Access Health Informa tion Online using Patient Portal and [employer] Apps Indication:Nonsmoker Start:05-Jul-2021 Instruction Type:Patient Education Patient Instructions Indication:Nonsmoker Start:02-Jul-2021 Instruction Type:Provider Instructions for Treatment How to Access Health Informa tion Online using Patient Portal and [employer] Apps Indication:Nonsmoker Start:02-Jul-2021 Instruction Type:Patient Education Patient Instructions Indication:Nonsmoker Start:09-Feb-2021 Instruction Type:Provider Instructions for Treatment How to Access Health Informa tion Online using Patient Portal and [employer] Apps Indication:Nonsmoker Start:09-Feb-2021 Instruction Type:Patient Education How to Access Health Informa tion Online using Patient Portal and [employer] Apps Indication:Nonsmoker Start:22-Jan-2021 Instruction Type:Patient Education Patient Instructions Indication:Nonsmoker Start:22-Jan-2021 Instruction Type:Provider Instructions for Treatment Patient Instructions Indication:Nonsmoker Start:12-Oct-2020 Instruction Type:Provider Instructions for Treatment How to Access Health Informa tion Online using Patient Portal and [employer] Apps Indication:Nonsmoker Start:12-Oct-2020 Instruction Type:Patient Education Patient Instructions Indication:BMI 21.0-21.9, adult Start:14-Sep-2020 Instruction Type:Provider Instructions for Treatment How to Access Health Informa tion Online using Patient Portal and [employer] Apps Indication:BMI 21.0-21.9, adult Start:14-Sep-2020 Instruction Type:Patient [...] tion Online using Patient Portal and [employer] Apps Indication:BMI 23.0-23.9, adult Start:10-Jun-2022 Instruction Type:Patient Education Patient Instructions Indication:Nonsmoker Start:26-Apr-2022 Instruction Type:Provider Instructions for Treatment How to Access Health Informa tion Online using Patient Portal and [employer] Apps Indication:Nonsmoker Start:26-Apr-2022 Instruction Type:Patient Education Patient Instructions Indication:Nonsmoker Start:22-Feb-2022 Instruction Type:Provider Instructions for Treatment How to Access Health Informa tion Online using Patient Portal and [employer] Apps Indication:Nonsmoker Start:22-Feb-2022 Instruction Type:Patient Education Patient Instructions Indication:Nonsmoker Start:15-Oct-2021 Instruction Type:Provider Instructions for Treatment How to Access Health Informa tion Online using Patient Portal and [employer] Apps Indication:Nonsmoker Start:15-Oct-2021 Instruction Type:Patient Education Patient Instructions Indication:Nonsmoker Start:05-Jul-2021 Instruction Type:Provider Instructions for Treatment How to Access Health Informa tion Online using Patient Portal and [employer] Apps Indication:Nonsmoker Start:05-Jul-2021 Instruction Type:Patient Education Patient Instructions Indication:Nonsmoker Start:02-Jul-2021 Instruction Type:Provider Instructions for Treatment How to Access Health Informa tion Online using Patient Portal and [employer] Apps Indication:Nonsmoker Start:02-Jul-2021 Instruction Type:Patient Education Patient Instructions Indication:Nonsmoker Start:09-Feb-2021 Instruction Type:Provider Instructions for Treatment How to Access Health Informa tion Online using Patient Portal and [employer] Apps Indication:Nonsmoker Start:09-Feb-2021 Instruction Type:Patient Education How to Access Health Informa tion Online using Patient Portal and [employer] Apps Indication:Nonsmoker Start:22-Jan-2021 Instruction Type:Patient Education Patient Instructions Indication:Nonsmoker Start:22-Jan-2021 Instruction Type:Provider Instructions for Treatment Patient Instructions Indication:Nonsmoker Start:12-Oct-2020 Instruction Type:Provider Instructions for Treatment How to Access Health Informa tion Online using Patient Portal and [employer] Apps Indication:Nonsmoker Start:12-Oct-2020 Instruction Type:Patient Education Patient Instructions Indication:BMI 21.0-21.9, adult Start:14-Sep-2020 Instruction Type:Provider Instructions for Treatment How to Access Health Informa tion Online using Patient Portal and [employer] Apps Indication:BMI 21.0-21.9, adult Start:14-Sep-2020 Instruction Type:Patient [...] tion Online using Patient Portal and [employer] Apps Indication:BMI 23.0-23.9, adult Start:10-Jun-2022 Instruction Type:Patient Education Patient Instructions Indication:Nonsmoker Start:26-Apr-2022 Instruction Type:Provider Instructions for Treatment How to Access Health Informa tion Online using Patient Portal and [employer] Apps Indication:Nonsmoker Start:26-Apr-2022 Instruction Type:Patient Education Patient Instructions Indication:Nonsmoker Start:22-Feb-2022 Instruction Type:Provider Instructions for Treatment How to Access Health Informa tion Online using Patient Portal and [employer] Apps Indication:Nonsmoker Start:22-Feb-2022 Instruction Type:Patient Education Patient Instructions Indication:Nonsmoker Start:15-Oct-2021 Instruction Type:Provider Instructions for Treatment How to Access Health Informa tion Online using Patient Portal and [employer] Apps Indication:Nonsmoker Start:15-Oct-2021 Instruction Type:Patient Education Patient Instructions Indication:Nonsmoker Start:05-Jul-2021 Instruction Type:Provider Instructions for Treatment How to Access Health Informa tion Online using Patient Portal and [employer] Apps Indication:Nonsmoker Start:05-Jul-2021 Instruction Type:Patient Education Patient Instructions Indication:Nonsmoker Start:02-Jul-2021 Instruction Type:Provider Instructions for Treatment How to Access Health Informa tion Online using Patient Portal and [employer] Apps Indication:Nonsmoker Start:02-Jul-2021 Instruction Type:Patient Education Patient Instructions Indication:Nonsmoker Start:09-Feb-2021 Instruction Type:Provider Instructions for Treatment How to Access Health Informa tion Online using Patient Portal and [employer] Apps Indication:Nonsmoker Start:09-Feb-2021 Instruction Type:Patient Education How to Access Health Informa tion Online using Patient Portal and [employer] Apps Indication:Nonsmoker Start:22-Jan-2021 Instruction Type:Patient Education Patient Instructions Indication:Nonsmoker Start:22-Jan-2021 Instruction Type:Provider Instructions for Treatment Patient Instructions Indication:Nonsmoker Start:12-Oct-2020 Instruction Type:Provider Instructions for Treatment How to Access Health Informa tion Online using Patient Portal and [employer] Apps Indication:Nonsmoker Start:12-Oct-2020 Instruction Type:Patient Education Patient Instructions Indication:BMI 21.0-21.9, adult Start:14-Sep-2020 Instruction Type:Provider Instructions for Treatment How to Access Health Informa tion Online using Patient Portal and [employer] Apps Indication:BMI 21.0-21.9, adult Start:14-Sep-2020 Instruction Type:Patient [...] tion Online using Patient Portal and [employer] Apps Indication:BMI 23.0-23.9, adult Start:10-Jun-2022 Instruction Type:Patient Education Patient Instructions Indication:Nonsmoker Start:26-Apr-2022 Instruction Type:Provider Instructions for Treatment How to Access Health Informa tion Online using Patient Portal and [employer] Apps Indication:Nonsmoker Start:26-Apr-2022 Instruction Type:Patient Education Patient Instructions Indication:Nonsmoker Start:22-Feb-2022 Instruction Type:Provider Instructions for Treatment How to Access Health Informa tion Online using Patient Portal and [employer] Apps Indication:Nonsmoker Start:22-Feb-2022 Instruction Type:Patient Education Patient Instructions Indication:Nonsmoker Start:15-Oct-2021 Instruction Type:Provider Instructions for Treatment How to Access Health Informa tion Online using Patient Portal and [employer] Apps Indication:Nonsmoker Start:15-Oct-2021 Instruction Type:Patient Education Patient Instructions Indication:Nonsmoker Start:05-Jul-2021 Instruction Type:Provider Instructions for Treatment How to Access Health Informa tion Online using Patient Portal and [employer] Apps Indication:Nonsmoker Start:05-Jul-2021 Instruction Type:Patient Education Patient Instructions Indication:Nonsmoker Start:02-Jul-2021 Instruction Type:Provider Instructions for Treatment How to Access Health Informa tion Online using Patient Portal and [employer] Apps Indication:Nonsmoker Start:02-Jul-2021 Instruction Type:Patient Education Patient Instructions Indication:Nonsmoker Start:09-Feb-2021 Instruction Type:Provider Instructions for Treatment How to Access Health Informa tion Online using Patient Portal and [employer] Apps Indication:Nonsmoker Start:09-Feb-2021 Instruction Type:Patient Education How to Access Health Informa tion Online using Patient Portal and [employer] Apps Indication:Nonsmoker Start:22-Jan-2021 Instruction Type:Patient Education Patient Instructions Indication:Nonsmoker Start:22-Jan-2021 Instruction Type:Provider Instructions for Treatment Patient Instructions Indication:Nonsmoker Start:12-Oct-2020 Instruction Type:Provider Instructions for Treatment How to Access Health Informa tion Online using Patient Portal and [employer] Apps Indication:Nonsmoker Start:12-Oct-2020 Instruction Type:Patient Education Patient Instructions Indication:BMI 21.0-21.9, adult Start:14-Sep-2020 Instruction Type:Provider Instructions for Treatment How to Access Health Informa tion Online using Patient Portal and [employer] Apps Indication:BMI 21.0-21.9, adult Start:14-Sep-2020 Instruction Type:Patient [...] tion Online using Patient Portal and [employer] Apps Indication:BMI 23.0-23.9, adult Start:10-Jun-2022 Instruction Type:Patient Education Patient Instructions Indication:Nonsmoker Start:26-Apr-2022 Instruction Type:Provider Instructions for Treatment How to Access Health Informa tion Online using Patient Portal and [employer] Apps Indication:Nonsmoker Start:26-Apr-2022 Instruction Type:Patient Education Patient Instructions Indication:Nonsmoker Start:22-Feb-2022 Instruction Type:Provider Instructions for Treatment How to Access Health Informa tion Online using Patient Portal and [employer] Apps Indication:Nonsmoker Start:22-Feb-2022 Instruction Type:Patient Education Patient Instructions Indication:Nonsmoker Start:15-Oct-2021 Instruction Type:Provider Instructions for Treatment How to Access Health Informa tion Online using Patient Portal and [employer] Apps Indication:Nonsmoker Start:15-Oct-2021 Instruction Type:Patient Education Patient Instructions Indication:Nonsmoker Start:05-Jul-2021 Instruction Type:Provider Instructions for Treatment How to Access Health Informa tion Online using Patient Portal and [employer] Apps Indication:Nonsmoker Start:05-Jul-2021 Instruction Type:Patient Education Patient Instructions Indication:Nonsmoker Start:02-Jul-2021 Instruction Type:Provider Instructions for Treatment How to Access Health Informa tion Online using Patient Portal and [employer] Apps Indication:Nonsmoker Start:02-Jul-2021 Instruction Type:Patient Education Patient Instructions Indication:Nonsmoker Start:09-Feb-2021 Instruction Type:Provider Instructions for Treatment How to Access Health Informa tion Online using Patient Portal and [employer] Apps Indication:Nonsmoker Start:09-Feb-2021 Instruction Type:Patient Education How to Access Health Informa tion Online using Patient Portal and [employer] Apps Indication:Nonsmoker Start:22-Jan-2021 Instruction Type:Patient Education Patient Instructions Indication:Nonsmoker Start:22-Jan-2021 Instruction Type:Provider Instructions for Treatment Patient Instructions Indication:Nonsmoker Start:12-Oct-2020 Instruction Type:Provider Instructions for Treatment How to Access Health Informa tion Online using Patient Portal and [employer] Apps Indication:Nonsmoker Start:12-Oct-2020 Instruction Type:Patient Education Patient Instructions Indication:BMI 21.0-21.9, adult Start:14-Sep-2020 Instruction Type:Provider Instructions for Treatment How to Access Health Informa tion Online using Patient Portal and [employer] Apps Indication:BMI 21.0-21.9, adult Start:14-Sep-2020 Instruction Type:Patient [...] tion Online using Patient Portal and [employer] Apps Indication:Nonsmoker Start:12-Sep-2022 Instruction Type:Patient Education Patient Instructions Indication:BMI 23.0-23.9, adult Start:10-Jun-2022 Instruction Type:Provider Instructions for Treatment How to Access Health Informa tion Online using Patient Portal and [employer] Apps Indication:BMI 23.0-23.9, adult Start:10-Jun-2022 Instruction Type:Patient Education Patient Instructions Indication:Nonsmoker Start:26-Apr-2022 Instruction Type:Provider Instructions for Treatment How to Access Health Informa tion Online using Patient Portal and [employer] Apps Indication:Nonsmoker Start:26-Apr-2022 Instruction Type:Patient Education Patient Instructions Indication:Nonsmoker Start:22-Feb-2022 Instruction Type:Provider Instructions for Treatment How to Access Health Informa tion Online using Patient Portal and [employer] Apps Indication:Nonsmoker Start:22-Feb-2022 Instruction Type:Patient Education Patient Instructions Indication:Nonsmoker Start:15-Oct-2021 Instruction Type:Provider Instructions for Treatment How to Access Health Informa tion Online using Patient Portal and [employer] Apps Indication:Nonsmoker Start:15-Oct-2021 Instruction Type:Patient Education Patient Instructions Indication:Nonsmoker Start:05-Jul-2021 Instruction Type:Provider Instructions for Treatment How to Access Health Informa tion Online using Patient Portal and [employer] Apps Indication:Nonsmoker Start:05-Jul-2021 Instruction Type:Patient Education Patient Instructions Indication:Nonsmoker Start:02-Jul-2021 Instruction Type:Provider Instructions for Treatment How to Access Health Informa tion Online using Patient Portal and [employer] Apps Indication:Nonsmoker Start:02-Jul-2021 Instruction Type:Patient Education Patient Instructions Indication:Nonsmoker Start:09-Feb-2021 Instruction Type:Provider Instructions for Treatment How to Access Health Informa tion Online using Patient Portal and [employer] Apps Indication:Nonsmoker Start:09-Feb-2021 Instruction Type:Patient Education How to Access Health Informa tion Online using Patient Portal and [employer] Apps Indication:Nonsmoker Start:22-Jan-2021 Instruction Type:Patient Education Patient Instructions Indication:Nonsmoker Start:22-Jan-2021 Instruction Type:Provider Instructions for Treatment Patient Instructions Indication:Nonsmoker Start:12-Oct-2020 Instruction Type:Provider Instructions for Treatment How to Access Health Informa tion Online using Patient Portal and [employer] Apps Indication:Nonsmoker Start:12-Oct-2020 Instruction Type:Patient Education Patient Instructions Indication:BMI 21.0-21.9, adult Start:14-Sep-2020 Instruction Type:Provider Instructions for Treatment How to Access Health Informa tion Online using Patient Portal and [employer] Apps Indication:BMI 21.0-21.9, adult Start:14-Sep-2020 Instruction Type:Patient [...] Informa tion Online using Patient Portal and [employer] Apps Indication:Nonsmoker Start:12-Sep-2022 Instruction Type:Patient Education Patient Instructions Indication:BMI 23.0-23.9, adult Start:10-Jun-2022 Instruction Type:Provider Instructions for Treatment How to Access Health Informa tion Online using Patient Portal and [employer] Apps Indication:BMI 23.0-23.9, adult Start:10-Jun-2022 Instruction Type:Patient Education Patient Instructions Indication:Nonsmoker Start:26-Apr-2022 Instruction Type:Provider Instructions for Treatment How to Access Health Informa tion Online using Patient Portal and [employer] Apps Indication:Nonsmoker Start:26-Apr-2022 Instruction Type:Patient Education Patient Instructions Indication:Nonsmoker Start:22-Feb-2022 Instruction Type:Provider Instructions for Treatment How to Access Health Informa tion Online using Patient Portal and [employer] Apps Indication:Nonsmoker Start:22-Feb-2022 Instruction Type:Patient Education Patient Instructions Indication:Nonsmoker Start:15-Oct-2021 Instruction Type:Provider Instructions for Treatment How to Access Health Informa tion Online using Patient Portal and [employer] Apps Indication:Nonsmoker Start:15-Oct-2021 Instruction Type:Patient Education Patient Instructions Indication:Nonsmoker Start:05-Jul-2021 Instruction Type:Provider Instructions for Treatment How to Access Health Informa tion Online using Patient Portal and [employer] Apps Indication:Nonsmoker Start:05-Jul-2021 Instruction Type:Patient Education Patient Instructions Indication:Nonsmoker Start:02-Jul-2021 Instruction Type:Provider Instructions for Treatment How to Access Health Informa tion Online using Patient Portal and [employer] Apps Indication:Nonsmoker Start:02-Jul-2021 Instruction Type:Patient Education Patient Instructions Indication:Nonsmoker Start:09-Feb-2021 Instruction Type:Provider Instructions for Treatment How to Access Health Informa tion Online using Patient Portal and [employer] Apps Indication:Nonsmoker Start:09-Feb-2021 Instruction Type:Patient Education How to Access Health Informa tion Online using Patient Portal and [employer] Apps Indication:Nonsmoker Start:22-Jan-2021 Instruction Type:Patient Education Patient Instructions Indication:Nonsmoker Start:22-Jan-2021 Instruction Type:Provider Instructions for Treatment Patient Instructions Indication:Nonsmoker Start:12-Oct-2020 Instruction Type:Provider Instructions for Treatment How to Access Health Informa tion Online using Patient Portal and [employer] Indication:Nonsmoker Start:12-Oct-2020 Instruction Type:Patient Education Patient Instructions Indication:BMI 21.0-21.9, adult Start:14-Sep-2020 Instruction Type:Provider Instructions for Treatment How to Access Health Informa tion Online using Patient Portal and [employer] Indication:BMI 21.0-21.9, adult Start:14-Sep-2020 Instruction Type:Patient [...] tion Online using Patient Portal and [employer] Apps Indication:Nonsmoker Start:12-Sep-2022 Instruction Type:Patient Education Patient Instructions Indication:BMI 23.0-23.9, adult Start:10-Jun-2022 Instruction Type:Provider Instructions for Treatment How to Access Health Informa tion Online using Patient Portal and [employer] Indication:BMI 23.0-23.9, adult Start:10-Jun-2022 Instruction Type:Patient Education Patient Instructions Indication:Nonsmoker Start:26-Apr-2022 Instruction Type:Provider Instructions for Treatment How to Access Health Informa tion Online using Patient Portal and [employer] Indication:Nonsmoker Start:26-Apr-2022 Instruction Type:Patient Education Patient Instructions Indication:Nonsmoker Start:22-Feb-2022 Instruction Type:Provider Instructions for Treatment How to Access Health Informa tion Online using Patient Portal and [employer] Indication:Nonsmoker Start:22-Feb-2022 Instruction Type:Patient Education Patient Instructions Indication:Nonsmoker Start:15-Oct-2021 Instruction Type:Provider Instructions for Treatment How to Access Health Informa tion Online using Patient Portal and [employer] Indication:Nonsmoker Start:15-Oct-2021 Instruction Type:Patient Education Patient Instructions Indication:Nonsmoker Start:05-Jul-2021 Instruction Type:Provider Instructions for Treatment How to Access Health Informa tion Online using Patient Portal and [employer] Indication:Nonsmoker Start:05-Jul-2021 Instruction Type:Patient Education Patient Instructions Indication:Nonsmoker Start:02-Jul-2021 Instruction Type:Provider Instructions for Treatment How to Access Health Informa tion Online using Patient Portal and [employer] Apps Indication:Nonsmoker Start:02-Jul-2021 Instruction Type:Patient Education Patient Instructions Indication:Nonsmoker Start:09-Feb-2021 Instruction Type:Provider Instructions for Treatment How to Access Health Informa tion Online using Patient Portal and [employer] Indication:Nonsmoker Start:09-Feb-2021 Instruction Type:Patient Education How to Access Health Informa tion Online using Patient Portal and [employer] Apps Indication:Nonsmoker Start:22-Jan-2021 Instruction Type:Patient Education Patient Instructions Indication:Nonsmoker Start:22-Jan-2021 Instruction Type:Provider Instructions for Treatment Patient Instructions Indication:Nonsmoker Start:12-Oct-2020 Instruction Type:Provider Instructions for Treatment How to Access Health Informa tion Online using Patient Portal and [employer] Apps Indication:Nonsmoker Start:12-Oct-2020 Instruction Type:Patient Education Patient Instructions Indication:BMI 21.0-21.9, adult Start:14-Sep-2020 Instruction Type:Provider Instructions for Treatment How to Access Health Informa tion Online using Patient Portal and [employer] Indication:BMI 21.0-21.9, adult Start:14-Sep-2020 Instruction Type:Patient [...] tion Online using Patient Portal and [employer] Indication:BMI 23.0-23.9, adult Start:07-Oct-2022 Instruction Type:Patient Education Patient Instructions Indication:Nonsmoker Start:12-Sep-2022 Instruction Type:Provider Instructions for Treatment How to Access Health Informa tion Online using Patient Portal and [employer] Indication:Nonsmoker Start:12-Sep-2022 Instruction Type:Patient Education Patient Instructions Indication:BMI 23.0-23.9, adult Start:10-Jun-2022 Instruction Type:Provider Instructions for Treatment How to Access Health Informa tion Online using Patient Portal and [employer] Indication:BMI 23.0-23.9, adult Start:10-Jun-2022 Instruction Type:Patient Education Patient Instructions Indication:Nonsmoker Start:26-Apr-2022 Instruction Type:Provider Instructions for Treatment How to Access Health Informa tion Online using Patient Portal and [employer] Indication:Nonsmoker Start:26-Apr-2022 Instruction Type:Patient Education Patient Instructions Indication:Nonsmoker Start:22-Feb-2022 Instruction Type:Provider Instructions for Treatment How to Access Health Informa tion Online using Patient Portal and [employer] Apps Indication:Nonsmoker Start:22-Feb-2022 Instruction Type:Patient Education Patient Instructions Indication:Nonsmoker Start:15-Oct-2021 Instruction Type:Provider Instructions for Treatment How to Access Health Informa tion Online using Patient Portal and [employer] Apps Indication:Nonsmoker Start:15-Oct-2021 Instruction Type:Patient Education Patient Instructions Indication:Nonsmoker Start:05-Jul-2021 Instruction Type:Provider Instructions for Treatment How to Access Health Informa tion Online using Patient Portal and [employer] Apps Indication:Nonsmoker Start:05-Jul-2021 Instruction Type:Patient Education Patient Instructions Indication:Nonsmoker Start:02-Jul-2021 Instruction Type:Provider Instructions for Treatment How to Access Health Informa tion Online using Patient Portal and [employer] Apps Indication:Nonsmoker Start:02-Jul-2021 Instruction Type:Patient Education Patient Instructions Indication:Nonsmoker Start:09-Feb-2021 Instruction Type:Provider Instructions for Treatment How to Access Health Informa tion Online using Patient Portal and [employer] Apps Indication:Nonsmoker Start:09-Feb-2021 Instruction Type:Patient Education How to Access Health Informa tion Online using Patient Portal and [employer] Apps Indication:Nonsmoker Start:22-Jan-2021 Instruction Type:Patient Education Patient Instructions Indication:Nonsmoker Start:22-Jan-2021 Instruction Type:Provider Instructions for Treatment Patient Instructions Indication:Nonsmoker Start:12-Oct-2020 Instruction Type:Provider Instructions for Treatment How to Access Health Informa tion Online using Patient Portal and [employer] Apps Indication:Nonsmoker Start:12-Oct-2020 Instruction Type:Patient Education Patient Instructions Indication:BMI 21.0-21.9, adult Start:14-Sep-2020 Instruction Type:Provider Instructions for Treatment How to Access Health Informa tion Online using Patient Portal and [employer] Apps Indication:BMI 21.0-21.9, adult Start:14-Sep-2020 Instruction Type:Patient [...] tion Online using Patient Portal and [employer] Apps Indication:BMI 23.0-23.9, adult Start:07-Oct-2022 Instruction Type:Patient Education Patient Instructions Indication:Nonsmoker Start:12-Sep-2022 Instruction Type:Provider Instructions for Treatment How to Access Health Informa tion Online using Patient Portal and [employer] Apps Indication:Nonsmoker Start:12-Sep-2022 Instruction Type:Patient Education Patient Instructions Indication:BMI 23.0-23.9, adult Start:10-Jun-2022 Instruction Type:Provider Instructions for Treatment How to Access Health Informa tion Online using Patient Portal and [employer] Apps Indication:BMI 23.0-23.9, adult Start:10-Jun-2022 Instruction Type:Patient Education Patient Instructions Indication:Nonsmoker Start:26-Apr-2022 Instruction Type:Provider Instructions for Treatment How to Access Health Informa tion Online using Patient Portal and [employer] Apps Indication:Nonsmoker Start:26-Apr-2022 Instruction Type:Patient Education Patient Instructions Indication:Nonsmoker Start:22-Feb-2022 Instruction Type:Provider Instructions for Treatment How to Access Health Informa tion Online using Patient Portal and [employer] Apps Indication:Nonsmoker Start:22-Feb-2022 Instruction Type:Patient Education Patient Instructions Indication:Nonsmoker Start:15-Oct-2021 Instruction Type:Provider Instructions for Treatment How to Access Health Informa tion Online using Patient Portal and [employer] Apps Indication:Nonsmoker Start:15-Oct-2021 Instruction Type:Patient Education Patient Instructions Indication:Nonsmoker Start:05-Jul-2021 Instruction Type:Provider Instructions for Treatment How to Access Health Informa tion Online using Patient Portal and [employer] Apps Indication:Nonsmoker Start:05-Jul-2021 Instruction Type:Patient Education Patient Instructions Indication:Nonsmoker Start:02-Jul-2021 Instruction Type:Provider Instructions for Treatment How to Access Health Informa tion Online using Patient Portal and [employer] Apps Indication:Nonsmoker Start:02-Jul-2021 Instruction Type:Patient Education Patient Instructions Indication:Nonsmoker Start:09-Feb-2021 Instruction Type:Provider Instructions for Treatment How to Access Health Informa tion Online using Patient Portal and [employer] Apps Indication:Nonsmoker Start:09-Feb-2021 Instruction Type:Patient Education How to Access Health Informa tion Online using Patient Portal and [employer] Apps Indication:Nonsmoker Start:22-Jan-2021 Instruction Type:Patient Education Patient Instructions Indication:Nonsmoker Start:22-Jan-2021 Instruction Type:Provider Instructions for Treatment Patient Instructions Indication:Nonsmoker Start:12-Oct-2020 Instruction Type:Provider Instructions for Treatment How to Access Health Informa tion Online using Patient Portal and [employer] Apps Indication:Nonsmoker Start:12-Oct-2020 Instruction Type:Patient Education Patient Instructions Indication:BMI 21.0-21.9, adult Start:14-Sep-2020 Instruction Type:Provider Instructions for Treatment How to Access Health Informa tion Online using Patient Portal and [employer] Apps Indication:BMI 21.0-21.9, adult Start:14-Sep-2020 Instruction Type:Patient [...] tion Online using Patient Portal and [employer] Apps Indication:Abnormal lung sounds Start:14-Oct-2022 Instruction Type:Patient Education Patient Instructions Indication:BMI 23.0-23.9, adult Start:07-Oct-2022 Instruction Type:Provider Instructions for Treatment How to Access Health Informa tion Online using Patient Portal and [employer] Apps Indication:BMI 23.0-23.9, adult Start:07-Oct-2022 Instruction Type:Patient Education Patient Instructions Indication:Nonsmoker Start:12-Sep-2022 Instruction Type:Provider Instructions for Treatment How to Access Health Informa tion Online using Patient Portal and [employer] Apps Indication:Nonsmoker Start:12-Sep-2022 Instruction Type:Patient Education Patient Instructions Indication:BMI 23.0-23.9, adult Start:10-Jun-2022 Instruction Type:Provider Instructions for Treatment How to Access Health Informa tion Online using Patient Portal and [employer] Apps Indication:BMI 23.0-23.9, adult Start:10-Jun-2022 Instruction Type:Patient Education Patient Instructions Indication:Nonsmoker Start:26-Apr-2022 Instruction Type:Provider Instructions for Treatment How to Access Health Informa tion Online using Patient Portal and [employer] Apps Indication:Nonsmoker Start:26-Apr-2022 Instruction Type:Patient Education Patient Instructions Indication:Nonsmoker Start:22-Feb-2022 Instruction Type:Provider Instructions for Treatment How to Access Health Informa tion Online using Patient Portal and [employer] Apps Indication:Nonsmoker Start:22-Feb-2022 Instruction Type:Patient Education Patient Instructions Indication:Nonsmoker Start:15-Oct-2021 Instruction Type:Provider Instructions for Treatment How to Access Health Informa tion Online using Patient Portal and [employer] Apps Indication:Nonsmoker Start:15-Oct-2021 Instruction Type:Patient Education Patient Instructions Indication:Nonsmoker Start:05-Jul-2021 Instruction Type:Provider Instructions for Treatment How to Access Health Informa tion Online using Patient Portal and [employer] Apps Indication:Nonsmoker Start:05-Jul-2021 Instruction Type:Patient Education Patient Instructions Indication:Nonsmoker Start:02-Jul-2021 Instruction Type:Provider Instructions for Treatment How to Access Health Informa tion Online using Patient Portal and [employer] Apps Indication:Nonsmoker Start:02-Jul-2021 Instruction Type:Patient Education Patient Instructions Indication:Nonsmoker Start:09-Feb-2021 Instruction Type:Provider Instructions for Treatment How to Access Health Informa tion Online using Patient Portal and [employer] Apps Indication:Nonsmoker Start:09-Feb-2021 Instruction Type:Patient Education How to Access Health Informa tion Online using Patient Portal and [employer] Apps Indication:Nonsmoker Start:22-Jan-2021 Instruction Type:Patient Education Patient Instructions Indication:Nonsmoker Start:22-Jan-2021 Instruction Type:Provider Instructions for Treatment Patient Instructions Indication:Nonsmoker Start:12-Oct-2020 Instruction Type:Provider Instructions for Treatment How to Access Health Informa tion Online using Patient Portal and [employer] Apps Indication:Nonsmoker Start:12-Oct-2020 Instruction Type:Patient Education Patient Instructions Indication:BMI 21.0-21.9, adult Start:14-Sep-2020 Instruction Type:Provider Instructions for Treatment How to Access Health Informa tion Online using Patient Portal and [employer] Apps Indication:BMI 21.0-21.9, adult Start:14-Sep-2020 Instruction Type:Patient [...] tion Online using Patient Portal and [employer] Apps Indication:Abnormal lung sounds Start:14-Oct-2022 Instruction Type:Patient Education Patient Instructions Indication:BMI 23.0-23.9, adult Start:07-Oct-2022 Instruction Type:Provider Instructions for Treatment How to Access Health Informa tion Online using Patient Portal and [employer] Apps Indication:BMI 23.0-23.9, adult Start:07-Oct-2022 Instruction Type:Patient Education Patient Instructions Indication:Nonsmoker Start:12-Sep-2022 Instruction Type:Provider Instructions for Treatment How to Access Health Informa tion Online using Patient Portal and [employer] Apps Indication:Nonsmoker Start:12-Sep-2022 Instruction Type:Patient Education Patient Instructions Indication:BMI 23.0-23.9, adult Start:10-Jun-2022 Instruction Type:Provider Instructions for Treatment How to Access Health Informa tion Online using Patient Portal and [employer] Apps Indication:BMI 23.0-23.9, adult Start:10-Jun-2022 Instruction Type:Patient Education Patient Instructions Indication:Nonsmoker Start:26-Apr-2022 Instruction Type:Provider Instructions for Treatment How to Access Health Informa tion Online using Patient Portal and [employer] Apps Indication:Nonsmoker Start:26-Apr-2022 Instruction Type:Patient Education Patient Instructions Indication:Nonsmoker Start:22-Feb-2022 Instruction Type:Provider Instructions for Treatment How to Access Health Informa tion Online using Patient Portal and [employer] Apps Indication:Nonsmoker Start:22-Feb-2022 Instruction Type:Patient Education Patient Instructions Indication:Nonsmoker Start:15-Oct-2021 Instruction Type:Provider Instructions for Treatment How to Access Health Informa tion Online using Patient Portal and [employer] Apps Indication:Nonsmoker Start:15-Oct-2021 Instruction Type:Patient Education Patient Instructions Indication:Nonsmoker Start:05-Jul-2021 Instruction Type:Provider Instructions for Treatment How to Access Health Informa tion Online using Patient Portal and [employer] Apps Indication:Nonsmoker Start:05-Jul-2021 Instruction Type:Patient Education Patient Instructions Indication:Nonsmoker Start:02-Jul-2021 Instruction Type:Provider Instructions for Treatment How to Access Health Informa tion Online using Patient Portal and [employer] Apps Indication:Nonsmoker Start:02-Jul-2021 Instruction Type:Patient Education Patient Instructions Indication:Nonsmoker Start:09-Feb-2021 Instruction Type:Provider Instructions for Treatment How to Access Health Informa tion Online using Patient Portal and [employer] Apps Indication:Nonsmoker Start:09-Feb-2021 Instruction Type:Patient Education How to Access Health Informa tion Online using Patient Portal and [employer] Apps Indication:Nonsmoker Start:22-Jan-2021 Instruction Type:Patient Education Patient Instructions Indication:Nonsmoker Start:22-Jan-2021 Instruction Type:Provider Instructions for Treatment Patient Instructions Indication:Nonsmoker Start:12-Oct-2020 Instruction Type:Provider Instructions for Treatment How to Access Health Informa tion Online using Patient Portal and [employer] Apps Indication:Nonsmoker Start:12-Oct-2020 Instruction Type:Patient Education Patient Instructions Indication:BMI 21.0-21.9, adult Start:14-Sep-2020 Instruction Type:Provider Instructions for Treatment How to Access Health Informa tion Online using Patient Portal and [employer] Apps Indication:BMI 21.0-21.9, adult Start:14-Sep-2020 Instruction Type:Patient [...] Informa tion Online using Patient Portal and [employer] Apps Indication:Abnormal lung sounds Start:14-Oct-2022 Instruction Type:Patient Education Patient Instructions Indication:BMI 23.0-23.9, adult Start:07-Oct-2022 Instruction Type:Provider Instructions for Treatment How to Access Health Informa tion Online using Patient Portal and [employer] Apps Indication:BMI 23.0-23.9, adult Start:07-Oct-2022 Instruction Type:Patient Education Patient Instructions Indication:Nonsmoker Start:12-Sep-2022 Instruction Type:Provider Instructions for Treatment How to Access Health Informa tion Online using Patient Portal and [employer] Apps Indication:Nonsmoker Start:12-Sep-2022 Instruction Type:Patient Education Patient Instructions Indication:BMI 23.0-23.9, adult Start:10-Jun-2022 Instruction Type:Provider Instructions for Treatment How to Access Health Informa tion Online using Patient Portal and [employer] Apps Indication:BMI 23.0-23.9, adult Start:10-Jun-2022 Instruction Type:Patient Education Patient Instructions Indication:Nonsmoker Start:26-Apr-2022 Instruction Type:Provider Instructions for Treatment How to Access Health Informa tion Online using Patient Portal and [employer] Apps Indication:Nonsmoker Start:26-Apr-2022 Instruction Type:Patient Education Patient Instructions Indication:Nonsmoker Start:22-Feb-2022 Instruction Type:Provider Instructions for Treatment How to Access Health Informa tion Online using Patient Portal and [employer] Apps Indication:Nonsmoker Start:22-Feb-2022 Instruction Type:Patient Education Patient Instructions Indication:Nonsmoker Start:15-Oct-2021 Instruction Type:Provider Instructions for Treatment How to Access Health Informa tion Online using Patient Portal and [employer] Apps Indication:Nonsmoker Start:15-Oct-2021 Instruction Type:Patient Education Patient Instructions Indication:Nonsmoker Start:05-Jul-2021 Instruction Type:Provider Instructions for Treatment How to Access Health Informa tion Online using Patient Portal and [employer] Apps Indication:Nonsmoker Start:05-Jul-2021 Instruction Type:Patient Education Patient Instructions Indication:Nonsmoker Start:02-Jul-2021 Instruction Type:Provider Instructions for Treatment How to Access Health Informa tion Online using Patient Portal and [employer] Apps Indication:Nonsmoker Start:02-Jul-2021 Instruction Type:Patient Education Patient Instructions Indication:Nonsmoker Start:09-Feb-2021 Instruction Type:Provider Instructions for Treatment How to Access Health Informa tion Online using Patient Portal and [employer] Apps Indication:Nonsmoker Start:09-Feb-2021 Instruction Type:Patient Education How to Access Health Informa tion Online using Patient Portal and [employer] Apps Indication:Nonsmoker Start:22-Jan-2021 Instruction Type:Patient Education Patient Instructions Indication:Nonsmoker Start:22-Jan-2021 Instruction Type:Provider Instructions for Treatment Patient Instructions Indication:Nonsmoker Start:12-Oct-2020 Instruction Type:Provider Instructions for Treatment How to Access Health Informa tion Online using Patient Portal and [employer] Apps Indication:Nonsmoker Start:12-Oct-2020 Instruction Type:Patient Education Patient Instructions Indication:BMI 21.0-21.9, adult Start:14-Sep-2020 Instruction Type:Provider Instructions for Treatment How to Access Health Informa tion Online using Patient Portal and [employer] Apps Indication:BMI 21.0-21.9, adult Start:14-Sep-2020 Instruction Type:Patient [...] tion Online using Patient Portal and [employer] Apps Indication:Nonsmoker Start:16-Dec-2022 Instruction Type:Patient Education Patient Instructions Indication:Abnormal lung sounds Start:14-Oct-2022 Instruction Type:Provider Instructions for Treatment How to Access Health Informa tion Online using Patient Portal and [employer] Apps Indication:Abnormal lung sounds Start:14-Oct-2022 Instruction Type:Patient Education Patient Instructions Indication:BMI 23.0-23.9, adult Start:07-Oct-2022 Instruction Type:Provider Instructions for Treatment How to Access Health Informa tion Online using Patient Portal and [employer] Apps Indication:BMI 23.0-23.9, adult Start:07-Oct-2022 Instruction Type:Patient Education Patient Instructions Indication:Nonsmoker Start:12-Sep-2022 Instruction Type:Provider Instructions for Treatment How to Access Health Informa tion Online using Patient Portal and [employer] Apps Indication:Nonsmoker Start:12-Sep-2022 Instruction Type:Patient Education Patient Instructions Indication:BMI 23.0-23.9, adult Start:10-Jun-2022 Instruction Type:Provider Instructions for Treatment How to Access Health Informa tion Online using Patient Portal and [employer] Apps Indication:BMI 23.0-23.9, adult Start:10-Jun-2022 Instruction Type:Patient Education Patient Instructions Indication:Nonsmoker Start:26-Apr-2022 Instruction Type:Provider Instructions for Treatment How to Access Health Informa tion Online using Patient Portal and [employer] Apps Indication:Nonsmoker Start:26-Apr-2022 Instruction Type:Patient Education Patient Instructions Indication:Nonsmoker Start:22-Feb-2022 Instruction Type:Provider Instructions for Treatment How to Access Health Informa tion Online using Patient Portal and [employer] Apps Indication:Nonsmoker Start:22-Feb-2022 Instruction Type:Patient Education Patient Instructions Indication:Nonsmoker Start:15-Oct-2021 Instruction Type:Provider Instructions for Treatment How to Access Health Informa tion Online using Patient Portal and [employer] Apps Indication:Nonsmoker Start:15-Oct-2021 Instruction Type:Patient Education Patient Instructions Indication:Nonsmoker Start:05-Jul-2021 Instruction Type:Provider Instructions for Treatment How to Access Health Informa tion Online using Patient Portal and [employer] Apps Indication:Nonsmoker Start:05-Jul-2021 Instruction Type:Patient Education Patient Instructions Indication:Nonsmoker Start:02-Jul-2021 Instruction Type:Provider Instructions for Treatment How to Access Health Informa tion Online using Patient Portal and [employer] Apps Indication:Nonsmoker Start:02-Jul-2021 Instruction Type:Patient Education Patient Instructions Indication:Nonsmoker Start:09-Feb-2021 Instruction Type:Provider Instructions for Treatment How to Access Health Informa tion Online using Patient Portal and [employer] Apps Indication:Nonsmoker Start:09-Feb-2021 Instruction Type:Patient Education How to Access Health Informa tion Online using Patient Portal and [employer] Apps Indication:Nonsmoker Start:22-Jan-2021 Instruction Type:Patient Education Patient Instructions Indication:Nonsmoker Start:22-Jan-2021 Instruction Type:Provider Instructions for Treatment Patient Instructions Indication:Nonsmoker Start:12-Oct-2020 Instruction Type:Provider Instructions for Treatment How to Access Health Informa tion Online using Patient Portal and [employer] Apps Indication:Nonsmoker Start:12-Oct-2020 Instruction Type:Patient Education Patient Instructions Indication:BMI 21.0-21.9, adult Start:14-Sep-2020 Instruction Type:Provider Instructions for Treatment How to Access Health Informa tion Online using Patient Portal and [employer] Indication:BMI 21.0-21.9, adult Start:14-Sep-2020 Instruction Type:Patient [...] Informa tion Online using Patient Portal and [employer] Apps Indication:Nonsmoker Start:16-Dec-2022 Instruction Type:Patient Education Patient Instructions Indication:Abnormal lung sounds Start:14-Oct-2022 Instruction Type:Provider Instructions for Treatment How to Access Health Informa tion Online using Patient Portal and [employer] Apps Indication:Abnormal lung sounds Start:14-Oct-2022 Instruction Type:Patient Education Patient Instructions Indication:BMI 23.0-23.9, adult Start:07-Oct-2022 Instruction Type:Provider Instructions for Treatment How to Access Health Informa tion Online using Patient Portal and [employer] Apps Indication:BMI 23.0-23.9, adult Start:07-Oct-2022 Instruction Type:Patient Education Patient Instructions Indication:Nonsmoker Start:12-Sep-2022 Instruction Type:Provider Instructions for Treatment How to Access Health Informa tion Online using Patient Portal and [employer] Apps Indication:Nonsmoker Start:12-Sep-2022 Instruction Type:Patient Education Patient Instructions Indication:BMI 23.0-23.9, adult Start:10-Jun-2022 Instruction Type:Provider Instructions for Treatment How to Access Health Informa tion Online using Patient Portal and [employer] Indication:BMI 23.0-23.9, adult Start:10-Jun-2022 Instruction Type:Patient Education Patient Instructions Indication:Nonsmoker Start:26-Apr-2022 Instruction Type:Provider Instructions for Treatment How to Access Health Informa tion Online using Patient Portal and [employer] Indication:Nonsmoker Start:26-Apr-2022 Instruction Type:Patient Education Patient Instructions Indication:Nonsmoker Start:22-Feb-2022 Instruction Type:Provider Instructions for Treatment How to Access Health Informa tion Online using Patient Portal and [employer] Indication:Nonsmoker Start:22-Feb-2022 Instruction Type:Patient Education Patient Instructions Indication:Nonsmoker Start:15-Oct-2021 Instruction Type:Provider Instructions for Treatment How to Access Health Informa tion Online using Patient Portal and [employer] Indication:Nonsmoker Start:15-Oct-2021 Instruction Type:Patient Education Patient Instructions Indication:Nonsmoker Start:05-Jul-2021 Instruction Type:Provider Instructions for Treatment How to Access Health Informa tion Online using Patient Portal and [employer] Indication:Nonsmoker Start:05-Jul-2021 Instruction Type:Patient Education Patient Instructions Indication:Nonsmoker Start:02-Jul-2021 Instruction Type:Provider Instructions for Treatment How to Access Health Informa tion Online using Patient Portal and [employer] Apps Indication:Nonsmoker Start:02-Jul-2021 Instruction Type:Patient Education Patient Instructions Indication:Nonsmoker Start:09-Feb-2021 Instruction Type:Provider Instructions for Treatment How to Access Health Informa tion Online using Patient Portal and [employer] Indication:Nonsmoker Start:09-Feb-2021 Instruction Type:Patient Education How to Access Health Informa tion Online using Patient Portal and [employer] Indication:Nonsmoker Start:22-Jan-2021 Instruction Type:Patient Education Patient Instructions Indication:Nonsmoker Start:22-Jan-2021 Instruction Type:Provider Instructions for Treatment Patient Instructions Indication:Nonsmoker Start:12-Oct-2020 Instruction Type:Provider Instructions for Treatment How to Access Health Informa tion Online using Patient Portal and [employer] Indication:Nonsmoker Start:12-Oct-2020 Instruction Type:Patient Education Patient Instructions Indication:BMI 21.0-21.9, adult Start:14-Sep-2020 Instruction Type:Provider Instructions for Treatment How to Access Health Informa tion Online using Patient Portal and [employer] Indication:BMI 21.0-21.9, adult Start:14-Sep-2020 Instruction Type:Patient [...] tion Online using Patient Portal and [employer] Indication:Nonsmoker Start:16-Dec-2022 Instruction Type:Patient Education Patient Instructions Indication:Abnormal lung sounds Start:14-Oct-2022 Instruction Type:Provider Instructions for Treatment How to Access Health Informa tion Online using Patient Portal and [employer] Indication:Abnormal lung sounds Start:14-Oct-2022 Instruction Type:Patient Education Patient Instructions Indication:BMI 23.0-23.9, adult Start:07-Oct-2022 Instruction Type:Provider Instructions for Treatment How to Access Health Informa tion Online using Patient Portal and [employer] Apps Indication:BMI 23.0-23.9, adult Start:07-Oct-2022 Instruction Type:Patient Education Patient Instructions Indication:Nonsmoker Start:12-Sep-2022 Instruction Type:Provider Instructions for Treatment How to Access Health Informa tion Online using Patient Portal and [employer] Apps Indication:Nonsmoker Start:12-Sep-2022 Instruction Type:Patient Education Patient Instructions Indication:BMI 23.0-23.9, adult Start:10-Jun-2022 Instruction Type:Provider Instructions for Treatment How to Access Health Informa tion Online using Patient Portal and [employer] Apps Indication:BMI 23.0-23.9, adult Start:10-Jun-2022 Instruction Type:Patient Education Patient Instructions Indication:Nonsmoker Start:26-Apr-2022 Instruction Type:Provider Instructions for Treatment How to Access Health Informa tion Online using Patient Portal and [employer] Apps Indication:Nonsmoker Start:26-Apr-2022 Instruction Type:Patient Education Patient Instructions Indication:Nonsmoker Start:22-Feb-2022 Instruction Type:Provider Instructions for Treatment How to Access Health Informa tion Online using Patient Portal and [employer] Apps Indication:Nonsmoker Start:22-Feb-2022 Instruction Type:Patient Education Patient Instructions Indication:Nonsmoker Start:15-Oct-2021 Instruction Type:Provider Instructions for Treatment How to Access Health Informa tion Online using Patient Portal and [employer] Apps Indication:Nonsmoker Start:15-Oct-2021 Instruction Type:Patient Education Patient Instructions Indication:Nonsmoker Start:05-Jul-2021 Instruction Type:Provider Instructions for Treatment How to Access Health Informa tion Online using Patient Portal and [employer] Apps Indication:Nonsmoker Start:05-Jul-2021 Instruction Type:Patient Education Patient Instructions Indication:Nonsmoker Start:02-Jul-2021 Instruction Type:Provider Instructions for Treatment How to Access Health Informa tion Online using Patient Portal and [employer] Apps Indication:Nonsmoker Start:02-Jul-2021 Instruction Type:Patient Education Patient Instructions Indication:Nonsmoker Start:09-Feb-2021 Instruction Type:Provider Instructions for Treatment How to Access Health Informa tion Online using Patient Portal and [employer] Apps Indication:Nonsmoker Start:09-Feb-2021 Instruction Type:Patient Education How to Access Health Informa tion Online using Patient Portal and [employer] Apps Indication:Nonsmoker Start:22-Jan-2021 Instruction Type:Patient Education Patient Instructions Indication:Nonsmoker Start:22-Jan-2021 Instruction Type:Provider Instructions for Treatment Patient Instructions Indication:Nonsmoker Start:12-Oct-2020 Instruction Type:Provider Instructions for Treatment How to Access Health Informa tion Online using Patient Portal and [employer] Apps Indication:Nonsmoker Start:12-Oct-2020 Instruction Type:Patient Education Patient Instructions Indication:BMI 21.0-21.9, adult Start:14-Sep-2020 Instruction Type:Provider Instructions for Treatment How to Access Health Informa tion Online using Patient Portal and [employer] Apps Indication:BMI 21.0-21.9, adult Start:14-Sep-2020 Instruction Type:Patient [...] Informa tion Online using Patient Portal and [employer] Apps Indication:Recurrent infections Start:30-Dec-2022 Instruction Type:Patient Education Patient Instructions Indication:Nonsmoker Start:16-Dec-2022 Instruction Type:Provider Instructions for Treatment How to Access Health Informa tion Online using Patient Portal and [employer] Apps Indication:Nonsmoker Start:16-Dec-2022 Instruction Type:Patient Education Patient Instructions Indication:Abnormal lung sounds Start:14-Oct-2022 Instruction Type:Provider Instructions for Treatment How to Access Health Informa tion Online using Patient Portal and [employer] Apps Indication:Abnormal lung sounds Start:14-Oct-2022 Instruction Type:Patient Education Patient Instructions Indication:BMI 23.0-23.9, adult Start:07-Oct-2022 Instruction Type:Provider Instructions for Treatment How to Access Health Informa tion Online using Patient Portal and [employer] Apps Indication:BMI 23.0-23.9, adult Start:07-Oct-2022 Instruction Type:Patient Education Patient Instructions Indication:Nonsmoker Start:12-Sep-2022 Instruction Type:Provider Instructions for Treatment How to Access Health Informa tion Online using Patient Portal and [employer] Apps Indication:Nonsmoker Start:12-Sep-2022 Instruction Type:Patient Education Patient Instructions Indication:BMI 23.0-23.9, adult Start:10-Jun-2022 Instruction Type:Provider Instructions for Treatment How to Access Health Informa tion Online using Patient Portal and [employer] Apps Indication:BMI 23.0-23.9, adult Start:10-Jun-2022 Instruction Type:Patient Education Patient Instructions Indication:Nonsmoker Start:26-Apr-2022 Instruction Type:Provider Instructions for Treatment How to Access Health Informa tion Online using Patient Portal and [employer] Apps Indication:Nonsmoker Start:26-Apr-2022 Instruction Type:Patient Education Patient Instructions Indication:Nonsmoker Start:22-Feb-2022 Instruction Type:Provider Instructions for Treatment How to Access Health Informa tion Online using Patient Portal and [employer] Apps Indication:Nonsmoker Start:22-Feb-2022 Instruction Type:Patient Education Patient Instructions Indication:Nonsmoker Start:15-Oct-2021 Instruction Type:Provider Instructions for Treatment How to Access Health Informa tion Online using Patient Portal and [employer] Apps Indication:Nonsmoker Start:15-Oct-2021 Instruction Type:Patient Education Patient Instructions Indication:Nonsmoker Start:05-Jul-2021 Instruction Type:Provider Instructions for Treatment How to Access Health Informa tion Online using Patient Portal and [employer] Apps Indication:Nonsmoker Start:05-Jul-2021 Instruction Type:Patient Education Patient Instructions Indication:Nonsmoker Start:02-Jul-2021 Instruction Type:Provider Instructions for Treatment How to Access Health Informa tion Online using Patient Portal and [employer] Apps Indication:Nonsmoker Start:02-Jul-2021 Instruction Type:Patient Education Patient Instructions Indication:Nonsmoker Start:09-Feb-2021 Instruction Type:Provider Instructions for Treatment How to Access Health Informa tion Online using Patient Portal and [employer] Apps Indication:Nonsmoker Start:09-Feb-2021 Instruction Type:Patient Education How to Access Health Informa tion Online using Patient Portal and [employer] Apps Indication:Nonsmoker Start:22-Jan-2021 Instruction Type:Patient Education Patient Instructions Indication:Nonsmoker Start:22-Jan-2021 Instruction Type:Provider Instructions for Treatment Patient Instructions Indication:Nonsmoker Start:12-Oct-2020 Instruction Type:Provider Instructions for Treatment How to Access Health Informa tion Online using Patient Portal and [employer] Apps Indication:Nonsmoker Start:12-Oct-2020 Instruction Type:Patient Education Patient Instructions Indication:BMI 21.0-21.9, adult Start:14-Sep-2020 Instruction Type:Provider Instructions for Treatment How to Access Health Informa tion Online using Patient Portal and [employer] Apps Indication:BMI 21.0-21.9, adult Start:14-Sep-2020 Instruction Type:Patient [...] tion Online using Patient Portal and [employer] Apps Indication:BMI 23.0-23.9, adult Start:05-Jan-2023 Instruction Type:Patient Education Patient Instructions Indication:Recurrent infections Start:30-Dec-2022 Instruction Type:Provider Instructions for Treatment How to Access Health Informa tion Online using Patient Portal and [employer] Apps Indication:Recurrent infections Start:30-Dec-2022 Instruction Type:Patient Education Patient Instructions Indication:Nonsmoker Start:16-Dec-2022 Instruction Type:Provider Instructions for Treatment How to Access Health Informa tion Online using Patient Portal and [employer] Apps Indication:Nonsmoker Start:16-Dec-2022 Instruction Type:Patient Education Patient Instructions Indication:Abnormal lung sounds Start:14-Oct-2022 Instruction Type:Provider Instructions for Treatment How to Access Health Informa tion Online using Patient Portal and [employer] Apps Indication:Abnormal lung sounds Start:14-Oct-2022 Instruction Type:Patient Education Patient Instructions Indication:BMI 23.0-23.9, adult Start:07-Oct-2022 Instruction Type:Provider Instructions for Treatment How to Access Health Informa tion Online using Patient Portal and [employer] Apps Indication:BMI 23.0-23.9, adult Start:07-Oct-2022 Instruction Type:Patient Education Patient Instructions Indication:Nonsmoker Start:12-Sep-2022 Instruction Type:Provider Instructions for Treatment How to Access Health Informa tion Online using Patient Portal and [employer] Apps Indication:Nonsmoker Start:12-Sep-2022 Instruction Type:Patient Education Patient Instructions Indication:BMI 23.0-23.9, adult Start:10-Jun-2022 Instruction Type:Provider Instructions for Treatment How to Access Health Informa tion Online using Patient Portal and [employer] Apps Indication:BMI 23.0-23.9, adult Start:10-Jun-2022 Instruction Type:Patient Education Patient Instructions Indication:Nonsmoker Start:26-Apr-2022 Instruction Type:Provider Instructions for Treatment How to Access Health Informa tion Online using Patient Portal and [employer] Apps Indication:Nonsmoker Start:26-Apr-2022 Instruction Type:Patient Education Patient Instructions Indication:Nonsmoker Start:22-Feb-2022 Instruction Type:Provider Instructions for Treatment How to Access Health Informa tion Online using Patient Portal and [employer] Apps Indication:Nonsmoker Start:22-Feb-2022 Instruction Type:Patient Education Patient Instructions Indication:Nonsmoker Start:15-Oct-2021 Instruction Type:Provider Instructions for Treatment How to Access Health Informa tion Online using Patient Portal and [employer] Apps Indication:Nonsmoker Start:15-Oct-2021 Instruction Type:Patient Education Patient Instructions Indication:Nonsmoker Start:05-Jul-2021 Instruction Type:Provider Instructions for Treatment How to Access Health Informa tion Online using Patient Portal and [employer] Apps Indication:Nonsmoker Start:05-Jul-2021 Instruction Type:Patient Education Patient Instructions Indication:Nonsmoker Start:02-Jul-2021 Instruction Type:Provider Instructions for Treatment How to Access Health Informa tion Online using Patient Portal and [employer] Apps Indication:Nonsmoker Start:02-Jul-2021 Instruction Type:Patient Education Patient Instructions Indication:Nonsmoker Start:09-Feb-2021 Instruction Type:Provider Instructions for Treatment How to Access Health Informa tion Online using Patient Portal and [employer] Apps Indication:Nonsmoker Start:09-Feb-2021 Instruction Type:Patient Education How to Access Health Informa tion Online using Patient Portal and [employer] Apps Indication:Nonsmoker Start:22-Jan-2021 Instruction Type:Patient Education Patient Instructions Indication:Nonsmoker Start:22-Jan-2021 Instruction Type:Provider Instructions for Treatment Patient Instructions Indication:Nonsmoker Start:12-Oct-2020 Instruction Type:Provider Instructions for Treatment How to Access Health Informa tion Online using Patient Portal and [employer] Apps Indication:Nonsmoker Start:12-Oct-2020 Instruction Type:Patient Education Patient Instructions Indication:BMI 21.0-21.9, adult Start:14-Sep-2020 Instruction Type:Provider Instructions for Treatment How to Access Health Informa tion Online using Patient Portal and [employer] Apps Indication:BMI 21.0-21.9, adult Start:14-Sep-2020 Instruction Type:Patient [...] Informa tion Online using Patient Portal and [employer] Apps Indication:BMI 23.0-23.9, adult Start:05-Jan-2023 Instruction Type:Patient Education Patient Instructions Indication:Recurrent infections Start:30-Dec-2022 Instruction Type:Provider Instructions for Treatment How to Access Health Informa tion Online using Patient Portal and [employer] Apps Indication:Recurrent infections Start:30-Dec-2022 Instruction Type:Patient Education Patient Instructions Indication:Nonsmoker Start:16-Dec-2022 Instruction Type:Provider Instructions for Treatment How to Access Health Informa tion Online using Patient Portal and [employer] Apps Indication:Nonsmoker Start:16-Dec-2022 Instruction Type:Patient Education Patient Instructions Indication:Abnormal lung sounds Start:14-Oct-2022 Instruction Type:Provider Instructions for Treatment How to Access Health Informa tion Online using Patient Portal and [employer] Apps Indication:Abnormal lung sounds Start:14-Oct-2022 Instruction Type:Patient Education Patient Instructions Indication:BMI 23.0-23.9, adult Start:07-Oct-2022 Instruction Type:Provider Instructions for Treatment How to Access Health Informa tion Online using Patient Portal and [employer] Apps Indication:BMI 23.0-23.9, adult Start:07-Oct-2022 Instruction Type:Patient Education Patient Instructions Indication:Nonsmoker Start:12-Sep-2022 Instruction Type:Provider Instructions for Treatment How to Access Health Informa tion Online using Patient Portal and [employer] Apps Indication:Nonsmoker Start:12-Sep-2022 Instruction Type:Patient Education Patient Instructions Indication:BMI 23.0-23.9, adult Start:10-Jun-2022 Instruction Type:Provider Instructions for Treatment How to Access Health Informa tion Online using Patient Portal and [employer] Apps Indication:BMI 23.0-23.9, adult Start:10-Jun-2022 Instruction Type:Patient Education Patient Instructions Indication:Nonsmoker Start:26-Apr-2022 Instruction Type:Provider Instructions for Treatment How to Access Health Informa tion Online using Patient Portal and [employer] Apps Indication:Nonsmoker Start:26-Apr-2022 Instruction Type:Patient Education Patient Instructions Indication:Nonsmoker Start:22-Feb-2022 Instruction Type:Provider Instructions for Treatment How to Access Health Informa tion Online using Patient Portal and [employer] Apps Indication:Nonsmoker Start:22-Feb-2022 Instruction Type:Patient Education Patient Instructions Indication:Nonsmoker Start:15-Oct-2021 Instruction Type:Provider Instructions for Treatment How to Access Health Informa tion Online using Patient Portal and [employer] Apps Indication:Nonsmoker Start:15-Oct-2021 Instruction Type:Patient Education Patient Instructions Indication:Nonsmoker Start:05-Jul-2021 Instruction Type:Provider Instructions for Treatment How to Access Health Informa tion Online using Patient Portal and [employer] Apps Indication:Nonsmoker Start:05-Jul-2021 Instruction Type:Patient Education Patient Instructions Indication:Nonsmoker Start:02-Jul-2021 Instruction Type:Provider Instructions for Treatment How to Access Health Informa tion Online using Patient Portal and [employer] Apps Indication:Nonsmoker Start:02-Jul-2021 Instruction Type:Patient Education Patient Instructions Indication:Nonsmoker Start:09-Feb-2021 Instruction Type:Provider Instructions for Treatment How to Access Health Informa tion Online using Patient Portal and [employer] Apps Indication:Nonsmoker Start:09-Feb-2021 Instruction Type:Patient Education How to Access Health Informa tion Online using Patient Portal and [employer] Apps Indication:Nonsmoker Start:22-Jan-2021 Instruction Type:Patient Education Patient Instructions Indication:Nonsmoker Start:22-Jan-2021 Instruction Type:Provider Instructions for Treatment Patient Instructions Indication:Nonsmoker Start:12-Oct-2020 Instruction Type:Provider Instructions for Treatment How to Access Health Informa tion Online using Patient Portal and [employer] Apps Indication:Nonsmoker Start:12-Oct-2020 Instruction Type:Patient Education Patient Instructions Indication:BMI 21.0-21.9, adult Start:14-Sep-2020 Instruction Type:Provider Instructions for Treatment How to Access Health Informa tion Online using Patient Portal and [employer] Apps Indication:BMI 21.0-21.9, adult Start:14-Sep-2020 Instruction Type:Patient [...] for referral (narrative)No reason for [facility]: Family History No Family History [...] Informa tion Online using Patient Portal and [employer] Apps Indication:Nonsmoker Start:12-Oct-2020 Instruction Type:Patient Education Patient Instructions Indication:BMI 21.0-21.9, adult Start:14-Sep-2020 Instruction Type:Provider Instructions for Treatment How to Access Health Informa tion Online using Patient Portal and [employer] Apps Indication:BMI 21.0-21.9, adult Start:14-Sep-2020 Instruction Type:Patient [...] Informa tion Online using Patient Portal and [employer] Apps Indication:Nonsmoker Start:12-Oct-2020 Instruction Type:Patient Education Patient Instructions Indication:BMI 21.0-21.9, adult Start:14-Sep-2020 Instruction Type:Provider Instructions for Treatment How to Access Health Informa tion Online using Patient Portal and [employer] Apps Indication:BMI 21.0-21.9, adult Start:14-Sep-2020 Instruction Type:Patient [...] Will No September 12 11:11am Power of Beam Press Operator No September 12, 2020 11:11am Advance Directive Response Recorded Date/ Time Living Will No November 06, 2022 10:32pm Power of Beam Press Operator No November 06 10:32pm Advance Directive Response Recorded Date/ Time Living Will No March 13, 2023 10:04pm Power of Beam Press Operator No March 13 10:04pm Advance Directive Response Recorded Date/ Time Living Will No November 06, 2024 9:38pm Do you have a Healthcare Power of Beam Press Operator? No November 06, 2024 9:38pm Advance Directive Response Recorded Date/ Time Living Will No November 06, 2024 9:38pm Do you have a Healthcare Power of Beam Press Operator? No November 06, 2024 9:38pm Living Will No December 08, 2024 6:50am Do you have a Healthcare Power of Beam Press Operator? No December 08, 2024 6:50am Chief Complaint [...] :18am STAT, hilar mass, pleural effusion, cxr 1/7 elev. August 28, 2024 11:01am Increasing right [...] :18am STAT, hilar mass, pleural effusion, cxr 1/7 elev. August 28, 2024 11:01am Increasing right [...] :18am STAT, hilar mass, pleural effusion, cxr /7 elev. August 28, 2024 11:01am Increasing right hilar mass August 8:47am LUNG September 03, 2024 8 :37am E-ORDER September 27, 2024 8 :43am RUL MASS W/ADENOPATHY October 15 5:43pm 2 WK FU November 01, 2024 10: 52am general illness November 06, 2024 9:1 7pm E ORDER/COPY RESULTS TO PCP November 25 6:42am Chief Complaint Admit Date XRAY August [...] October 192024 10:52am Chief Complaint Admit Date RUL MASS W/ADENOPATHY October 15 5:43pm 2 WK FU November 01, 2024 10: 52am general illness November 06, 2024 9:1 7pm E ORDER/COPY RESULTS TO PCP November 25 6:42am chest pain December 08, 2024 6:4 9am Cough January 11, 2025 8:33a m Additional Source Comments INFORMATION SOURCE (unrecogn ized section and content) DATE CREATED AUTHOR 01/23/2022 [facility] DATE CREATED AUTHOR AUTHOR'S ORGANIZ ATBRIAN 01/01/[address] [facility] DATE CREATED AUTHOR AUTHOR'S ORGANIZ ATION 12/09/2024 [facility] DATE CREATED AUTHOR AUTHOR'S ORGANIZ ATION 03/03/2025 [facility] Source Comments (unrecognize d section and content) In the event this informatio n is protected by the Federal Confidentiality of Alcohol and Drug Abuse Patient Records regulations: The Federal rules restrict any use of the information to criminally investigate or prosecute any alcohol or drug abuse patient.[facility] the event this information is protected by the Federal Confidentiality of Alcohol and Drug Abuse Patient Records regulations: The Federal rules restrict any use of the information to criminally investigate or prosecute any alcohol or drug abuse patient.[facility] HospitalIn the event this information is protected by the Federal Confidentiality of Alcohol and Drug Abuse Patient Records regulations: The Federal rules restrict any use of the information to criminally investigate or prosecute any alcohol or drug abuse patient.[facility] the event this information is protected by the Federal Confidentiality of Alcohol and Drug Abuse Patient Records regulations: The Federal rules restrict any use of the information to criminally investigate or prosecute any alcohol or drug abuse patient.[facility] Reason for Visit (unrecogniz ed section and content) Reason Comments Cough cough, ST, and irrit ated eyes x 1.5 weeks Reason Comments Chest Congestion Cough, ST x7 daysCon junctivitis bilateral x7 days Reason Comments Information Care Teams (unrecognized sec tion and content) Count Team Clerk Relationship Specialty Start Date End Date Yarelis Fitzpatrick DO PCP - General Internal Medicine 04/29/13 Count Team Clerk Relationship Specialty Start Date End Date Yarelis [...] Active Dr. Rakesh Meeks , DO Attending Provider, Referring Pro vider Active Count Team Clerk Relationship Specialty Start Date End Date No Primary Care[place] [address] PCP - General Pediatrics 02/09/23 Team Status: Active Member Role Status Dates Dr. Yarelis Fitzpatrick DO Primary Care Provider Active Dr. Rakesh Meeks DO Referring Provider, Other Provide r Active Dr. Adrien Millard MD Attending Provider Active Team Status: Inactive Member Role Status Dates Dr. Yarelis Fitzpatrick DO Primary Care Provider, Referr ing Provider Active Yesenia Hahn HEALTH NURSE, HEALTH NURSE-C Attending Provider Active Team Status: Inactive Member Role Status Dates Dr. Yarelis Fitzpatrick DO Primary Care Provider Active Yesenia Hahn HEALTH NURSE, HEALTH NURSE-C Attending Provider, Referrin g Provider Active Count Team Clerk Relationship Specialty Start Date End Date Yarelis Fitzpatrick DO PCP - General Internal Medicine 04/29/13 Count Team Clerk Relationship Specialty Start Date End Date No Primary Care, , [place] [address] PCP - General Pediatrics 02/09/23 Count Team Clerk Relationship Specialty Start Date End Date Yarelis [...] August 28, 2024 End: August 28, 2024 DARRYN Somers Attending Provider Active Start: August 28, 2024 End: August 28, 2024 Kimberly Jacobson NP-C Referring Provider Active Start: August 28, 2024 [...] October 15, 2024 End: October 15, 2024 Patience Del Real NP-C Attending Provider Active Start: October 15, 2024 End: October 15, 2024 Patience Del Real NP-C Referring Provider Active Start: October 15, 2024 End: October 15, 2024 Team Status: Inactive Member Role Status Dates Dr. Yarelis Fitzpatrick DO Referring Provider Active Start: November 01, 2024 End: November 01, 2024 Patience Del Real NP-C Attending Provider Active Start: November 01, 2024 [...] Inactive Member Role Status Dates Dr. Yordan Vanegsa DO Attending Provider Active Start: November 06, [...] 25, 2024 End: November 25, 2024 Dr. oYrdan Vanegas DO Referring Provider Active Start: November [...] NATASHA ASENCIO Attending Provider Active Start: Gopi pinedo 2024 End: December 21, 2024 NATASHA ASENCIO [...] January 11, 2025 End: January 11, 2025 Team Status: Inactive Member Role Status Dates Dr. Yarelis Fitzpatrick DO Primary Care Provider Active Start: January 30, 2025 End: January 30, 2025 Dr. Rajat Tarango MD Attending Provider Active Start: January 30, 2025 End: January 30, 2025 Dr. Rajat Tarango MD Referring Provider Active Start: January 30, 2025 End: January 30, 2025 Goals (unrecognized section and content) Goals [...] BE BASED ON THE PRIMARY CLINICAL RECORDS. [facility]. provides no warranty or guarantee of the accuracy or completeness of information in this document.
--- OUTSIDE RECORDS SUMMARY | 2025-03-04 07:19 | XMS RPT_ITS | CCD ---
Author Organization [facility] ion [facility] Care Team Providers Care Toolroom Attendant Name Role Phone Yarelis Fitzpatrick Unavailable Chris Villeda Unavailable Eliseo Corral Unavailable [phone] Gravenedelia, Haydee Unavailable Unavailable Lissett Tolbert Unavailable Unavailable Slarb, Kiesha Unavailable Unavailable Unavailable Unavailable Ciesa, Lu Unavailable Erasmo Huynh Unavailable Unavailable Blanca Morrow Unavailable Unavailable Yarelis Fitzpatrick DO Unavailable Dr. Eliseo Corral Unavailable Erasmo Huynh LPN Unavailable Unavailable Lissett Tolbert RN Unavailable Unavailable Blanca Morrow LPN Unavailable Unavailable Ciesa SENIOR BENEFITS SPECIALIST, Lu Unavailable Slarb TRIAGE ASSISTANT, Kiesha Unavailable Unavailable Unavailable Unavailable Edu MCGEE, Haydee Unavailable Unavailable Yarelis Fitzpatrick DO Primary Care Provider Yarelis Fitzpatrick DO Unavailable Yaa Calderon MA Unavailable Unavailable Pam Escamilla MD Unavailable Sylvia TRIAGE ASSISTANT, Ingrid Unavailable Unavailable [place] MCGEE, Kayela Unavailable Unavailable Xochilt MCGEE Lyubov Unavailable Unavailable Yarelis Fitzpatrick DO Primary Care Provider Fast DO Heydi A Unavailable Dylon Vazquez MD Unavailable Yarelis Fitzpatrick DO Attending Unavailable Yarelis Fitzpatrick DO Consulting Unavailable Dr. Yarelis Fitzpatrick Primary Care Provider Dr. Balta Whipple Attending Provider Dr. Yarelis Fitzpatrick Referring Provider Dr. Rakesh Meeks Attending Provider Luz ElenamdaelynGlynn Unavailable Patience Matute MA Unavailable Unavailable No airplane rental clerk, Md Primary Care Provider Domitila vailable Dr. Yarelis Fitzpatrick Primary Care Provider Dr. Rakesh Meeks Referring Provider Dr. Rakesh Meeks Other Provider Dr. Adrien Millard Attending Provider Dr. Yarelis Fitzpatrick Referring Provider Selma ROVER TENDER, ROVER TENDER-C Yesenia Attending Provider [phone] Yarelis Fitzpatrick DO Primary Care Provider No airplane rental clerk, Md Primary Care Provider Domitila vailable Dr. Yarelis Fitzpatrick DO Primary Care Provider [phone] Dr. Balta Whipple MD Attending Provider Kavon ROVER TENDER-CKimberly Attending Provider Kavon SNEED-CKimberly Referring Provider Dr. Yarelis Fitzpatrick DO Referring Provider Patience Hopknis Attending Provider Nasima SNEED-CPatience Referring Provider Dr. Yarelis Fitzpatrick DO Attending Provider Kavon ROVER TENDER-CKimberly Other Provider Dr. Yordan Vanegas DO Referring [...] Attending Provider LUIS M VAZQUEZ Attending Provider [phone] LUIS M VAZQUEZ Referring Provider [phone] Yarelis Fitzpatrick DO Primary Care Provider [phone] Nasima ROVER TENDER-CPatience Attending Provider Nasima ROVER TENDER-CPatience Referring Provider Dr. Yarelis Fitzpatrick DO Referring Provider [phone] Dr. Rajat Tarango MD, V Other Provider [phone] Dr. Yarelis Fitzpatrick DO Primary Care Provider Nasima ROVER TENDER-CPatience Attending Provider Nasima ROVER TENDER-CPatience Referring Provider Dr. Rajat Tarango MD, V Attending Provider Dr. Rajat Tarango MD, V Referring Provider [...] Amari, Yarelis Referring Unavailable RunataliyaerPatience Attending Unavailable [facility] Center[facility] Primary [facility] Unavailable Balta Whipple Attending Unavailable Amari, [place] [facility] Unavailable Patience Del Real Referring Unavailable Patience Del Real Attending Unavailable Amari, [place] [facility] Unavailable Yordan Vanegas Referring Unavailable Yordan Vanegas Attending Unavailable MaiMagyo Attending Unavailable Amari, Yarelis Primary Care Unavailable Amari, [place] [facility] Unavailable Kimberly Jacobson Referring Unavailable Kimberly Jacobson Attending Unavailable Amari, [place] Primary [facility] Unavailable Amari, Yarelis Referring Unavailable Patience Del Real Attending Unavailable Amari, [facility] Unavailable Sibilia, Rajat V Referring Unavailable Sibilia Rajat V Attending Unavailable [facility] Unavailable CHITRA, ERI1 Referring Unavailable CHITRA ERI1 Attending Unavailable Sibilia, Rajat V Consulting Unavailable Amari, [facility] Unavailable Patience Del Real Referring Unavailable [...] 15, 2023 12:00am with training polymyxin b 65903 unt/ml / trimethoprim 1 mg/ml ophthalmic solution [...] November 07, 2022 January 24, 2023 6:47am [id number] 200 actuat albuterol 0.09 mg/actuat metered dose [...] 6 {Ounce(s)} Refills: 0 Ordered: 30-Apr-2010 MANUEL Vsos LPN Start : 02-Oct-2009 Inactive doxycycline monohydrate [...] 0 days Refills: 0 Ordered: 27-Aug-2008 Lloyd Marcie Start : 27-Aug-2008 End : 31-Dec-2008 Discontinued [...] Medication vendor. Comment on above: Discontinued by [facility] vendor. ondansetron 4 mg disintegrating oral tablet [...] beta-hemolytic Streptococcus or Staphylococcus aureus isolated. Normal [facility] Comment on above: Performed By: #### M 100.2400, M100.1999 #### [facility] [address] [place], [place], [address] Gram Stainon 01-31-2025 GS Acceptable Specimen? Yes (<25 Epithelial cells per/lpf) Gram Stain 2+ Gram positive cocci 1+ Gram positive rods 1+ Gram negative rods Rare Epithelial cells Normal [facility] Comment on above: Performed By: #### M 100.2400, M100.1999 #### [facility] [address] [place], [place], [address] Gram stainOrdered By: Rajat Tarango on 01-30-2025 Microscopic observation Gram stain Nom (Unsp spec) [facility] Respiratory Cultureon 2024 RESPC Copy of report [...] S Penicillin Islt CELENA 1 I Normal [facility] Comment on above: Performed By: #### M 100.2400, M100.1999 #### [facility] [address] [place], [place], [id number] Gram Stainon 01-11-2025 GS Acceptable Specimen? Yes (<25 Epithelial cells per/lpf) Gram Stain 2+ Gram negative rods 1+ Gram positive rods 2+ Gram positive cocci 1+ White Blood Cells Rare Epithelial cells Normal [facility] Comment on above: Performed By: #### M 100.2400, M100.1999 #### [facility] [address] [place], [place], [id number] Gram stainOrdered By: NAREN Del Real on 01-11-2025 Microscopic observation Gram stain Nom (Unsp spec) [facility] Microbial respiratory cultur eOrdered By: NAREN Del Real on 01-11-2025 Microorganism identified Cx Nom (Unsp spec) Streptococcus pneumoniae Abnormal [facility] Microorganism identified Cx Nom (Unsp spec) Haemophilus influenzae Abnormal [facility] Immunoglobulin Dilip 5 IMMUNOGLOB G QN 936 mg/dL Normal 586-1602 [facility] Comment on above: Result Comment: Perf ormed at: - [facility] [address] [id number] Lobsterman: Ramsey Oleary PhD, Phone: [phone] Performed By: #### L 3200.1300 #### [facility] [address] [place], [place], [id number] Serum or plasma IgG measurem ent (mass/volume)on 12-21-2024 IgG [Mass/Vol] 936 mg/dL 586-1602 [facility] Comment on above: Performed at: - [facility] [address] [id number] Director: Ramsey Oleary PhD, Phone: [phone] Progress Noteon 12-09-2024 Financial Aid Manager Authentication Interface Message Text Ofe is a [...] used to be followed by Dr. Tarango (Ict Account Manager) for lung nodules and she had been [...] Fitzpatrick she was to see Dr. Meeks (Ict Account Manager in [place]) and she had done this once and [...] was tolerated. -Due to her seeing a Ict Account Manager (Dr. Meeks), I held off on spirometry at her initial visit and food and environmental allergen testing did not appear to be indicated and this was discussed with her. At her initial visit, I ordered IgG, IgA, IgM and IgE levels, lymphocyte profile, tetanus titer, pneumococcal titers, HIV and Mitogen studies (2806) and on 02/13/23, IgG-242, IgA <5, IgM-23 [...] 07/07/23. She says her spirometry with her Ict Account Manager was normal and she did not have [...] then received a phone call from her Ict Account Manager's office and see 11/01/24. Received a call from Patience Del Real [facility] (phone # [phone] and #[phone]). She wanted to discuss Ofe who was [...] Pulmonology wi (more content not included)... Normal [facility] Absolute lymphocyte countOrd ered By: Mikekylie Mai on 12-08-2024 Lymphocytes Auto (Unsp spec) [#/Vol] 3.83 10*3/uL 0.83-4.51 [facility] Absolute neutrophil countOrd ered By: [facility]-2024 Neutrophils (Bld) [#/Vol] 12.3 10*3/uL High 2.0-7.7 [facility] Anion gap in Serum or Plasma Ordered By: Mike Mai on 12-08-2024 Anion gap [Moles/Vol] 12 mmol/L 5-15 [facility] Automated lymphocyte count a s percentage of total leukocytesOrdered By: Mikekylie Mai on 12-08-2024 Lymphocytes/100 WBC Auto (Unsp spec) 21.5 % - [facility] BUN/creatinine ratioOrdered By: Mike Mai on 12-08-2024 Urea nitrogen/Creatinine [Mass ratio] 14.0 mg/mg - [facility] Basophil percentageOrdered B y: Mikekylie Mai on 12-08-2024 Basophils/100 WBC (Bld) 0.4 % 0- [facility] Bilirubin, totalOrdered By: Mikekylie Mai on 12-08-2024 Bilirubin [Mass/Vol] 0.29 mg/dL 0.00-1.30 [facility] CBC W/Diff, Automatedon 11-20 Absolute Lymph 3.83 X10 3/uL Normal 0.83-4.51 [facility] Comment on above: Performed By: #### M 100.2400, #### [facility] [address] [place], [address] Absolute Neut 12.3 X10 3/uL High 2.0-7.7 [facility] Comment on above: Performed By: #### M 100.240, #### [facility] [address] [place], [address] Basophils/100 WBC (Bld) 0.4 % Normal 0-1 [facility] Comment on above: Performed By: #### M 100.240, #### [facility] [address] [place], [address] Eosinophils/100 WBC (Bld) 0.7 % Normal 0-5 [facility] Comment on above: Performed By: #### M 100.240, #### [facility] [address] [place], [address] Erythrocyte distribution width (RBC) [Ratio] 15.3 % High 11.6-14.6 [facility] Comment on above: Performed By: #### M 100.240, #### [facility] [address] [place], [address] Hematocrit (Bld) [Volume fraction] 39.6 % Normal 37-47 [facility] Comment on above: Performed By: #### M 100.240, #### [facility] [address] [place], [address] Hemoglobin (Bld) [Mass/Vol] 13.4 g/dL Normal 12.0-15.0 [facility] Comment on above: Performed By: #### M 100.240, #### [facility] [address] [place], [address] IG% 0.500 Normal 0.0-0.9 [facility] Comment on above: Result Comment: IG% - Immature Granulocytes (promyelocytes, myelocytes and metamyelocytes) > 1% indicates that a LEFT SHIFT is Present. Performed By: #### M 100.2400, #### [facility] [address] [place], [address] Lymphocytes/100 WBC (Bld) 21.5 % Normal 19-41 [facility] Comment on above: Performed By: #### M 100.2400, #### [facility] [address] [place], [address] MCH (RBC) [Entitic mass] 27.3 pg Normal 27.0-32.0 [facility] Comment on above: Performed By: #### M 100.2400, #### [facility] [address] [place], [address] MCHC (RBC) [Mass/Vol] 33.8 g/dL Normal 32-36 [facility] Comment on above: Performed By: #### M 100.2400, #### [facility] [address] [place], [address] MCV (RBC) [Entitic vol] 80.8 fL Low 81-99 [facility] Comment on above: Performed By: #### M 100.2400, #### [facility] [address] [place], [address] Monocytes/100 WBC (Bld) 7.8 % Normal 0-10 [facility] Comment on above: Performed By: #### M 100.2400, #### [facility] [address] [place], [address] Neutrophils/100 WBC (Bld) 69.1 % Normal 47-70 [facility] Comment on above: Performed By: #### M , #### [facility] [address] [place], [address] Nucleated RBC (Bld) [#/Vol] 0 10*3/uL Normal 0-5 [facility] Comment on above: Performed By: #### M , #### [facility] [address] [place], [address] Platelet mean volume (Bld) [Entitic vol] 9.6 fL Normal 6.2-12.0 [facility] Comment on above: Performed By: #### M , #### [facility] [address] [place], [address] Platelets (Bld) [#/Vol] 435 10*3/uL Normal 150-450 [facility] Comment on above: Performed By: #### M , #### [facility] [address] [place], [address] RBC (Bld) [#/Vol] 4.90 10*6/uL Normal 4.2-5.4 [facility] Comment on above: Performed By: #### M , #### [facility] [address] [place], [address] RDW SD 45.0 fl High 35.1-43.9 [facility] Comment on above: Performed By: #### M , #### [facility] [address] [place], [address] WBC (Bld) [#/Vol] 17.8 10*3/uL High 4.4-11.0 [facility] Comment on above: Performed By: #### M 100.2400, M100.1999 #### [facility] [address] [place], [place], [address] Carbon dioxide, total [Moles /volume] in Central venous bloodOrdered By: Mike Mai on 12-08-2024 CO2 [Moles/Vol] 25.5 mmol/L 21.0-32.0 [facility] Chest PA and Lateralon 12-08 Chest PA and Lateral [facility] [address] [place] [address] Chest PA and Lateral MR#: [id number] Acct: [id number] Name: OFE GIMENEZ Rep #: [id number] : 1975 F 49 From: Santos Arana i, MD PCP: Dr. Yarelis Fitzpatrick DO Status: PRE ER Study: Chest PA and Lateral Date of Exam: 12/08/24 Exam# [id number] Ordering Dr: Mike Mai MD PROCEDURE: CHEST [...] infiltrate or consolidation is seen. Reading Location: [id number] CC: Dr. Yarelis Fitzpatrick DO; Dr. Mike Mai MD Veneer Marker: Signed Normal [facility] Chloride assayOrdered By: Magy Mai on 12-08-2024 Chloride [Moles/Vol] 102 mmol/L 98-108 [facility] Comprehensive Metabolic Prof ilon 12-08-2024 Albumin [Mass/Vol] 4.3 g/dL Normal 3.5-5.0 [facility] Comment on above: Performed By: #### M .240, #### [facility] [address] [place], [address] Albumin/Globulin [Mass ratio] 1.5 {ratio} Normal 0.9-2.4 [facility] Comment on above: Performed By: #### M 100.240, #### [facility] [address] [place], [address] ALK PHOS 145 U/L High 35-104 [facility] Comment on above: Performed By: #### M 240, #### [facility] [address] [place], [address] ALT [Catalytic activity/Vol] 29 U/L Normal <=34 [facility] Comment on above: Performed By: #### , #### [facility] [address] [place], [address] AST [Catalytic activity/Vol] 30 U/L Normal <=31 [facility] Comment on above: Performed By: #### , #### [facility] [address] [place], [address] Bilirubin [Mass/Vol] 0.29 mg/dL Normal 0.00-1.30 [facility] Comment on above: Performed By: #### M 240, #### [facility] [address] [place], [address] BUN/CRE 14.0 RATIO Normal 10-20 [facility] Comment on above: Performed By: #### M 240, #### [facility] [address] [place], [address] Calcium [Mass/Vol] 9.3 mg/dL Normal 7.6-11.0 [facility] Comment on above: Performed By: #### M 100.2400, #### [facility] [address] [place], [address] Chloride [Moles/Vol] 102 mmol/L Normal 98-108 [facility] Comment on above: Performed By: #### M 100.240, #### [facility] [address] [place], [address] CO2 [Moles/Vol] 25.5 mmol/L Normal 21.0-32.0 [facility] Comment on above: Performed By: #### M 100.240, #### [facility] [address] [place], [address] Creatinine [Mass/Vol] 0.65 mg/dL Low 0.70-1.20 [facility] Comment on above: Performed By: #### M 100.240, #### [facility] [address] [place], [address] ECRCL 95.86 ml/min Normal 50-250 [facility] Comment on above: Performed By: #### M 100.240, #### [facility] [address] [place], [address] GAP 12 Normal 5-15 [facility] Comment on above: Performed By: #### M 100.240, #### [facility] [address] [place], [address] GFR/1.73 sq M.predicted among non-blacks MDRD (S/P/Bld) [Vol rate/Area] 107 mL/min/{1.73_m2} Normal >60 [facility] Comment on above: Result Comment: mL/m in/1.73m2 CKD-EPI Creatinine Equation (2020) Performed By: #### M 100.240, #### [facility] [address] [place], [address] Globulin (S) [Mass/Vol] 2.9 g/dL Normal 2.2-4.2 [facility] Comment on above: Performed By: #### M 100.2400, #### [facility] [address] [place], [address] Glucose [Mass/Vol] 113 mg/dL High 70-99 [facility] Comment on above: Performed By: #### M 100.240, #### [facility] [address] [place], [address] Potassium [Moles/Vol] 4.2 mmol/L Normal 3.3-5.1 [facility] Comment on above: Performed By: #### M 100.240, #### [facility] [address] [place], [address] Sodium [Moles/Vol] 140 mmol/L Normal 133-145 [facility] Comment on above: Performed By: #### M 100.240, #### [facility] [address] [place], [address] T PROT 7.2 g/dL Normal 5.9-8.4 [facility] Comment on above: Performed By: #### M 100.2400, #### [facility] [address] [place], [address] Urea nitrogen [Mass/Vol] 9 mg/dL Normal 4-19 [facility] Comment on above: Performed By: #### M 100.2400, #### [facility] [address] 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 She was prescribed azithromycin. Her fifth dose [...] Method R (more content not included)... Normal [facility] Eosinophil percentageOrdered By: Mike Mai on 12-08-2024 Eosinophils/100 WBC (Bld) 0.7 % 0-5 [facility] Erythrocyte distribution wid th (RBC) [Ratio]Ordered By: Mike Mai on 12-08-2024 Erythrocyte distribution width (RBC) [Entitic vol] 45.0 fL High 35.1-43.9 [facility] Erythrocyte distribution wid th ratioOrdered By: Mikekylie Mai on 12-08-2024 Erythrocyte distribution width (RBC) [Ratio] 15.3 % High 11.6-14.6 [facility] Erythrocyte distribution wid th standard deviationOrdered By: Mikekyile Mai on 12-08-2024 Erythrocyte distribution width (RBC) [Ratio] 45.0 fl High 35.1-43.9 [facility] Estimation of creatinine boby aranceOrdered By: Mike Mai on 12-08-2024 Estimated Creatinine Clearance Calc 95.86 ml/min 50-250 [facility] GFR/1.73 sq M.predicted juan carlos g non-blacks MDRD (S/P/Bld) [Vol rate/Area]Ordered By: Mike Mai on 12-08-2024 Estimated GFR (MDRD) Non-Af Amer 107 >60 [facility] Comment on above: mL/min/1.73m2 CKD-EP I Creatinine Equation (2020) Glomerular filtration rate ( GFR) estimation/1.73 sq m using serum, plasma, or whole bOrdered By: Mike Mai on 12-08-2024 GFR/1.73 sq M.predicted among non-blacks MDRD (S/P/Bld) [Vol rate/Area] 107 mL/min/{1.73_m2} >60 [facility] Comment on above: mL/min/1.73m2 CKD-EP I Creatinine Equation (2020) Hematocrit Auto (Bld) [Volum e fraction]Ordered By: Mike Mai on 12-08-2024 Hematocrit (Bld) [Volume fraction] 39.6 % 37-47 [facility] Hemoglobin measurementOrdere d By: Mike Mai on 12-08-2024 Hemoglobin (Bld) [Mass/Vol] 13.4 g/dL 12.0-15.0 [facility] Immature granulocytes/100 WB C Auto (Bld)Ordered By: Mike Mai on 12-08-2024 Immature granulocytes/100 WBC (Bld) 0.500 % 0.0-0.9 [facility] Comment on above: IG% - Immature Granu locytes (promyelocytes, myelocytes and metamyelocytes) > 1% indicates that a LEFT SHIFT is Present. Influenza virus A and B and SARS-CoV-2 (COVID-19) and Respiratory syncytial virus RNAOrdered By: Mike Mai on 12-08-2024 SARS-CoV-2 (COVID-19) RNA MICHELLE+probe Ql (Unsp spec) [facility] - Chemistry and C hemistry - challengeOrdered By: Mikekylie Mai on 12-08-2024 AST [Catalytic activity/Vol] 30 U/L <32 [facility] Lactic Acidon 12-08-2024 Lactate [Moles/Vol] 1.3 mmol/L Normal 0.0-2.0 [facility] Comment on above: Order Comment: Y Performed By: #### M 100.2400, M100.1999 #### [facility] [address] [place], [address] Lactic acid measurementOrder ed By: Mike Mai on 12-08-2024 Lactate [Moles/Vol] 1.3 mmol/L 0.0-2.0 [facility] Lymphocytes Auto (Unsp spec) [#/Vol]Ordered By: Mike Mai on 12-08-2024 Lymphocytes (Bld) [#/Vol] 3.83 10*3/uL 0.83-4.51 [facility] Lymphocytes/100 WBC Auto (Un sp spec)Ordered By: Mike Mai on 12-08-2024 Lymphocytes/100 WBC (Bld) 21.5 % 19-41 [facility] M100.678on 12-08-2024 M100.678 SARS-CoV-2 (COVID 19 ) Negative INFLUENZA A Negative INFLUENZA B Negative RSV PCR Negative Normal [facility] Comment on above: Performed By: #### M 100.2400, M100.2000 #### [facility] [address] [place], [address] MCV (mean corpuscular volume ) determinationOrdered By: Mike Mai on 12-08-2024 MCV (RBC) [Entitic vol] 80.8 fL Low 81-99 [facility] Mean corpuscular hemoglobin (MCH) determinationOrdered By: Mike Mai on 12-08-2024 MCH (RBC) [Entitic mass] 27.3 pg 27.0-32.0 [facility] Mean corpuscular hemoglobin concentration (MCHC) determinationOrdered By: Mike Mai on 12-08-2024 MCHC (RBC) [Mass/Vol] 33.8 g/dL 32-36 [facility] Mean platelet volume determi nationOrdered By: Mike Mai on 12-08-2024 Platelet mean volume (Bld) [Entitic vol] 9.6 fL 6.2-12.0 [facility] Monocyte percentageOrdered B y: Mike Mai on 12-08-2024 Monocytes/100 WBC (Bld) 7.8 % 0-10 [facility] Neutrophil percentageOrdered By: Mike Mai on 12-08-2024 Neutrophils/100 WBC (Bld) 69.1 % 47-70 [facility] Nucleated red blood cell per centageOrdered By: Mike Mai on 12-08-2024 Nucleated RBC/100 WBC (Bld) [Ratio] 0 % 0-5 [facility] Platelet countOrdered By: Ug o Mai on 12-08-2024 Platelets (Bld) [#/Vol] 435 10*3/uL 150-450 [facility] Potassium (Unsp spec) [Mass/ Vol]Ordered By: Mike Mai on 12-08-2024 Potassium [Moles/Vol] 4.2 mmol/L 3.3-5.1 [facility] Potassium measurement (mass/ volume)Ordered By: Mike Mai on 12-08-2024 Potassium (Unsp spec) [Mass/Vol] 4.2 mmol/L 3.3-5.1 [facility] RBC Auto (Bld) [#/Vol]Ordere d By: Mike Mai on 12-08-2024 RBC (Bld) [#/Vol] 4.90 10*6/uL 4.2-5.4 [facility] Serum creatinine measurement (mass/volume)Ordered By: Mike Mai on 12-08-2024 Creatinine [Mass/Vol] 0.65 mg/dL Low 0.70-1.20 [facility] Serum globulin measurementOr dered By: Mike Mai on 12-08-2024 Globulin (S) [Mass/Vol] 2.9 g/dL 2.2-4.2 [facility] Serum glucose measurement (m ass/volume)Ordered By: Mike Mai on 12-08-2024 Glucose [Mass/Vol] 113 mg/dL High 70-99 [facility] Serum or plasma alanine ruby otransferase (ALT) measurementOrdered By: Mike Mai on 12-08-2024 ALT [Catalytic activity/Vol] 29 U/L <35 [facility] Serum or plasma albumin sanford urement (mass/volume)Ordered By: Mike Mai 12-08-2024 Albumin [Mass/Vol] 4.3 g/dL 3.5-5.0 [facility] Serum or plasma albumin/glob ulin mass ratioOrdered By: Mike Mai 12-08-2024 Albumin/Globulin [Mass ratio] 1.5 {ratio} 0.9-2.4 [facility] Serum or plasma alkaline neftali sphatase measurementOrdered By: Mike Mai on 12-08-2024 ALP [Catalytic activity/Vol] 145 U/L High 35-104 [facility] Serum or plasma calcium sanford urement (mass/volume)Ordered By: Mike Mai 12-08-2024 Calcium [Mass/Vol] 9.3 mg/dL 7.6-11.0 [facility] Serum or plasma urea nitroge n measurement (mass/volume)Ordered By: Mike Mai on 12-08-2024 Urea nitrogen [Mass/Vol] 9 mg/dL 4-19 [facility] Sodium levelOrdered By: Mike Mai on 12-08-2024 Sodium [Moles/Vol] 140 mmol/L 133-145 [facility] Total proteinOrdered By: Mike Mai on 12-08-2024 Protein [Mass/Vol] 7.2 g/dL 5.9-8.4 [facility] White blood cell (WBC) count Ordered By: Mike Mai on 12-08-2024 WBC (Bld) [#/Vol] 17.8 10*3/uL High 4.4-11.0 [facility] Respiratory Cultureon 2024 RESPC Streptococcus pneumo [...] S Penicillin Islt CELENA 0.12 I Normal [facility] Comment on above: Performed By: #### M 100.2400, M1 #### [facility] [address] [place], [place], [id number] Gram Stainon 11-25-2024 GS Acceptable Specimen? Yes (<25 Epithelial cells per/lpf) Gram Stain 4+ Gram positive cocci 2+ White Blood Cells 1+ Epithelial cells 4+ Gram positive diplococci 4+ Gram positive rods 1+ Gram negative rods Normal [facility] Comment on above: Performed By: #### M 100.2400, M100.1999 #### [facility] [address] [place], [place], [id number] Gram stainOrdered By: Yordan Vanegas on 11-25-2024 Microscopic observation Gram stain Nom (Unsp spec) [facility] Microbial respiratory cultur eOrdered By: Yordan Vanegas on 11-25-2024 Microorganism identified Cx Nom (Unsp spec) Streptococcus pneumoniae Abnormal [facility] Microorganism identified Cx Nom (Unsp spec)Ordered By: Yordan Vanegas on 11-25-2024 Respiratory Culture Streptococcus pneumoniae Abnormal [facility] Culture, Blood (WB)on 2024 CUB Blood cultures x2, f rom two different sites No growth in 5 days. [facility] Comment on above: Performed By: #### M 200.1000 #### [facility] [address] [place], [place], [address] Respiratory Cultureon 2024 RESPC List Antibiotics to [...] 0.12 S Penicillin Islt CELENA 0.12 I [facility] Comment on above: Performed By: #### M 100.2400, M1.1999 #### [facility] [address] [place], [place], [address] Gram Stainon 11-07-2024 List Antibiotics to be Started? doxycycline, cefdinir Acceptable Specimen? Yes (<25 Epithelial cells per/lpf) Gram Stain Rare Gram positive rods 1+ Gram negative diplococci 2+ Gram positive cocci 1+ White Blood Cells No Epithelial cells * This is an amended result. * A prior result that was reported as final has been changed. 11/08/24 0744 by HUE [facility] Comment on above: Performed By: #### M 100.2400, M1.1999 #### [facility] [address] [facility] [place], [place], [address] Legionella Antigen Urineon 0 11-07-2024 LEGU URINE, CLEAN CATCH Legionella Antigen result interpretation: L pneumo Ag Ur Ql Negative Presumptive negative for Legionella pneumophila serogroup 1 antigen in urine, suggesting no recent or current infection. Legionella Ag, Urine Negative (See interpretation below) Normal [facility] Comment on above: Performed By: #### M 100.2400, M100.1999 #### [facility] [address] [place], [address] Strep pneumoniae Antig(UR,CS F)on 11-07-2024 STPAG URINE INTERPRETATION Strep pneumoniae Antig(UR,CSF) Strep pneumoniae Antig(UR,CSF) Negative Urine Presumptive negative for pneumococcal pneumonia, suggesting no current or recent pneumococcal infection. Infection due to S pneumoniae cannot be ruled out since the antigen present in the sample may be below the detection limit of the test. Strep pneumo Test Negative URINE (See interpretation below) Normal [facility] Comment on above: Performed By: #### M 100.2400, M100.1999 #### [facility] [address] [facility] [place], [place], [id number] 12 Lead EKGon 11-06-2024 12 Lead EKG [facility] Cardiovascular Services [address] [place] [address] 12 Lead EKG 11/06/24 2218 MR#: [id number] Acct: [id number] Name: OFE GIMENEZ Rep #: [id number] : 1975 49 From: Balta Whipple MD [...] found Confirmed by MELONIE SIERRA, BALTA ([id number]), web content editor KARLO DIAZ ([id number]) on 11/11/2024 7:33:43 AM Referred By: Yordan Vanegas Confirmed By: BALTA WHIPPLE MD 11/11/24 0733 Date Balta Whipple MD CC: Dr. Yordan Vanegas, ; Dr. Yarelis Fitzpatrick DO Signed Normal [facility] Absolute lymphocyte countOrd ered By: Yordan Vanegas on 11-06-2024 Lymphocytes Auto (Unsp spec) [#/Vol] 2.98 10*3/uL 0.83-4.51 [facility] Absolute neutrophil countOrd ered By: Yordan Vanegas on 11-06-2024 Neutrophils (Bld) [#/Vol] 15.7 10*3/uL High 2.0-7.7 [facility] Anion gap in Serum or Plasma Ordered By: Yordan Vanegas on 11-06-2024 Anion gap [Moles/Vol] 12 mmol/L 5-15 [facility] Automated lymphocyte count a s percentage of total leukocytesOrdered By: Yordan Vanegas on 11-06-2024 Lymphocytes/100 WBC Auto (Unsp spec) 14.8 % Low 19-41 [facility] BUN/creatinine ratioOrdered By: Yordan Vanegas on 11-06-2024 Urea nitrogen/Creatinine [Mass ratio] 15.6 mg/mg 10-20 [facility] Basophil percentageOrdered B y: Yordan Vanegas on 11-06-2024 Basophils/100 WBC (Bld) 0.5 % 0-1 [facility] Bilirubin Test strip Ql (U)O rdered By: Yordan Vanegas on 11-06-2024 Bilirubin Ql (U) Negative Negative [facility] Bilirubin, totalOrdered By: Yordan Vanegas on 11-06-2024 Bilirubin [Mass/Vol] 0.24 mg/dL 0.00-1.30 [facility] Blood cultureOrdered By: Frantz Vanegas on 11-06-2024 Bacteria identified Cx Nom (Bld) No growth in 5 days. [facility] Bacteria identified Cx Nom (Bld) No growth in 5 days. [facility] CBC W/Diff, Automatedon - Absolute Lymph 2.98 X10 3/uL Normal 0.83-4.51 [facility] Comment on above: Performed By: #### M 100.2400, .1999 #### [facility] [address] [place], [address] Absolute Neut 15.7 X10 3/uL High 2.0-7.7 [facility] Comment on above: Performed By: #### M 100.2400, #### [facility] [address] [place], [address] Basophils/100 WBC (Bld) 0.5 % Normal 0-1 [facility] Comment on above: Performed By: #### M 100.2400, .1999 #### [facility] [address] [place], [address] Eosinophils/100 WBC (Bld) 0.2 % Normal 0-5 [facility] Comment on above: Performed By: #### M 100.2400, #### [facility] [address] [place], [address] Erythrocyte distribution width (RBC) [Ratio] 14.4 % Normal 11.6-14.6 [facility] Comment on above: Performed By: #### M 100.2400, #### [facility] [address] [place], [address] Hematocrit (Bld) [Volume fraction] 37.9 % Normal 37-47 [facility] Comment on above: Performed By: #### M 100.2400, #### [facility] [address] [place], [address] Hemoglobin (Bld) [Mass/Vol] 13.1 g/dL Normal 12.0-15.0 [facility] Comment on above: Performed By: #### M .2399, #### [facility] [address] [place], [address] IG% 0.500 Normal 0.0-0.9 [facility] Comment on above: Result Comment: IG% - Immature Granulocytes (promyelocytes, myelocytes and metamyelocytes) > 1% indicates that a LEFT SHIFT is Present. Performed By: #### M .240, #### [facility] [address] [place], [address] Lymphocytes/100 WBC (Bld) 14.8 % Low 19-41 [facility] Comment on above: Performed By: #### M , #### [facility] [address] [place], [address] MCH (RBC) [Entitic mass] 28.2 pg Normal 27.0-32.0 [facility] Comment on above: Performed By: #### M , #### [facility] [address] [place], [address] MCHC (RBC) [Mass/Vol] 34.6 g/dL Normal 32-36 [facility] Comment on above: Performed By: #### M .240, #### [facility] [address] [place], [address] MCV (RBC) [Entitic vol] 81.5 fL Normal 81-99 [facility] Comment on above: Performed By: #### M .240, #### [facility] [address] [place], [address] Monocytes/100 WBC (Bld) 6.4 % Normal 0-10 [facility] Comment on above: Performed By: #### M 100.2400, #### [facility] [address] [place], [address] Neutrophils/100 WBC (Bld) 77.6 % High 47-70 [facility] Comment on above: Performed By: #### M 100.2400, #### [facility] [address] [place], [address] Nucleated RBC (Bld) [#/Vol] 0 10*3/uL Normal 0-5 [facility] Comment on above: Performed By: #### M 100.240, #### [facility] [address] [place], [address] Platelet mean volume (Bld) [Entitic vol] 9.6 fL Normal 6.2-12.0 [facility] Comment on above: Performed By: #### M 100.240, #### [facility] [address] [place], [address] Platelets (Bld) [#/Vol] 536 10*3/uL High 150-450 [facility] Comment on above: Performed By: #### M 100.240, #### [facility] [address] [place], [address] RBC (Bld) [#/Vol] 4.65 10*6/uL Normal 4.2-5.4 [facility] Comment on above: Performed By: #### M 100.2400, #### [facility] [address] [place], [address] RDW SD 42.3 fl Normal 35.1-43.9 [facility] Comment on above: Performed By: #### M 100.2400, #### [facility] [address] [place], [place], [address] WBC (Bld) [#/Vol] 20.2 10*3/uL High 4.4-11.0 [facility] Comment on above: Performed By: #### M 100.2400, M100.2000 #### [facility] [address] [place], [place], [address] CTA Chest W/WO Contraston CTA Chest W/WO Contrast [facility] Imaging Services [address] [place], [place] [address] CTA Chest W/WO Contrast MR#: [id number] Acct: [id number] Name: OFE GIMENEZ Rep #: [id number] : 1975 F 49 From: Zaki landeros MD PCP: Dr. Yarelis Fitzpatrick, Status: [facility] ER Study: CTA Chest W/WO Contrast Date of Exam: 11/06/24 Exam# [id number] Ordering Dr: Yordan Vanegas DO PROCEDURE: CTA [...] Yordan Vanegas, DO; Dr. Yarelis Fitzpatrick, DO Veneer Marker: Signed Normal [facility] Carbon dioxide, total [Moles /volume] in Central venous bloodOrdered By: Yordan Vanegas on 11-06-2024 CO2 [Moles/Vol] 23.7 mmol/L 21.0-32.0 [facility] Chloride assayOrdered By: Gregory Vanegas on 11-06-2024 Chloride [Moles/Vol] 104 mmol/L 98-108 [facility] Comprehensive Metabolic Prof ilon 11-06-2024 Albumin [Mass/Vol] 4.2 g/dL Normal 3.5-5.0 [facility] Comment on above: Performed By: #### M 100.240, #### [facility] [address] [place], [address] Albumin/Globulin [Mass ratio] 1.5 {ratio} Normal 0.9-2.4 [facility] Comment on above: Performed By: #### M 100.240, #### [facility] [address] [place], [address] ALK PHOS 94 U/L Normal 35-104 [facility] Comment on above: Performed By: #### M 100.240, #### [facility] [address] [place], [address] ALT [Catalytic activity/Vol] 21 U/L Normal <=34 [facility] Comment on above: Performed By: #### M 100.240, #### [facility] [address] [place], [address] AST [Catalytic activity/Vol] 26 U/L Normal <=31 [facility] Comment on above: Performed By: #### M .240, #### [facility] [address] [place], [address] Bilirubin [Mass/Vol] 0.24 mg/dL Normal 0.00-1.30 [facility] Comment on above: Performed By: #### M , #### [facility] [address] [place], [address] BUN/CRE 15.6 RATIO Normal 10-20 [facility] Comment on above: Performed By: #### , #### [facility] [address] [place], [address] Calcium [Mass/Vol] 9.4 mg/dL Normal 7.6-11.0 [facility] Comment on above: Performed By: #### M #### [facility] [address] [place], [address] Chloride [Moles/Vol] 104 mmol/L Normal 98-108 [facility] Comment on above: Performed By: #### M #### [facility] [address] [place], [address] CO2 [Moles/Vol] 23.7 mmol/L Normal 21.0-32.0 [facility] Comment on above: Performed By: #### M , #### [facility] [address] [place], [address] Creatinine [Mass/Vol] 0.77 mg/dL Normal 0.70-1.20 [facility] Comment on above: Performed By: #### M 100.2400, #### [facility] [address] [place], [address] ECRCL 80.92 ml/min Normal 50-250 [facility] Comment on above: Performed By: #### M 100.2400, #### [facility] [address] [place], [address] GAP 12 Normal 5-15 [facility] Comment on above: Performed By: #### M 100.240, #### [facility] [address] [place], [address] GFR/1.73 sq M.predicted among non-blacks MDRD (S/P/Bld) [Vol rate/Area] 94 mL/min/{1.73_m2} Normal >60 [facility] Comment on above: Result Comment: mL/m in/1.73m2 CKD-EPI Creatinine Equation (2020) Performed By: #### M 100.2400, #### [facility] [address] [place], [address] Globulin (S) [Mass/Vol] 2.7 g/dL Normal 2.2-4.2 [facility] Comment on above: Performed By: #### M 100.240, #### [facility] [address] [place], [address] Glucose [Mass/Vol] 139 mg/dL High 70-99 [facility] Comment on above: Performed By: #### M 100.240, #### [facility] [address] [place], [address] Potassium [Moles/Vol] 3.7 mmol/L Normal 3.3-5.1 [facility] Comment on above: Performed By: #### M 100.2400, #### [facility] [address] [place], [address] Sodium [Moles/Vol] 140 mmol/L Normal 133-145 [facility] Comment on above: Performed By: #### M 100.2400, M100.1999 #### [facility] [address] [place], [address] T PROT 6.9 g/dL Normal 5.9-8.4 [facility] Comment on above: Performed By: #### M 100.2400, M100.1999 #### [facility] [address] [place], [address] Urea nitrogen [Mass/Vol] 12 mg/dL Normal 4-19 [facility] Comment on above: Performed By: #### M 100.2400, M100.1999 #### [facility] [address] [place], [address] Emergency Department Summary on 11-06-2024 Emergency Department Summary [facility] Medical Records Department [address] [place] [address] Emergency Department Summary 11/06/24 MR#: [id number] Acct: [id number] Name: OFE GIMENEZ Rep #: [id number] : 1975 49 From: Yordan Vanegas DO [...] follows locally with pulmonology Dr. 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 Vazquez. In September of this year [...] home oxygen. She is a lifelong non-smoker. [facility] Medical History (Updated 11/06/24 @ 23:10 by [...] and mois (more content not included)... Normal [facility] Eosinophil percentageOrdered By: Yordan Vanegas on 11-06-2024 Eosinophils/100 WBC (Bld) 0.2 % 0-5 [facility] Epithelial cells.squamous LM Ql (Urine sed)Ordered By: Yordan Vanegas on 11-06-2024 Epithelial cells.squamous LM.HPF (Urine sed) [#/Area] 0 /[HPF] 5-10 [facility] Erythrocyte distribution wid th ratioOrdered By: Yordan Vanegas on 11-06-2024 Erythrocyte distribution width (RBC) [Ratio] 14.4 % 11.6-14.6 [facility] Erythrocyte distribution wid th standard deviationOrdered By: Yordan Vanegas on 11-06-2024 Erythrocyte distribution width (RBC) [Entitic vol] 42.3 fL 35.1-43.9 [facility] Erythrocyte distribution width (RBC) [Ratio] 42.3 fl 35.1-43.9 [facility] Estimation of creatinine boby aranceOrdered By: Yordan Vanegas on 11-06-2024 Estimated Creatinine Clearance Calc 80.92 ml/min 50-250 [facility] GFR/1.73 sq M.predicted juan carlos g non-blacks MDRD (S/P/Bld) [Vol rate/Area]Ordered By: Yordan Vanegas on 11-06-2024 Estimated GFR (MDRD) Non-Af Amer 94 >60 [facility] Comment on above: mL/min/1.73m2 CKD-EP I Creatinine Equation (2020) Glomerular filtration rate ( GFR) estimation/1.73 sq m using serum, plasma, or whole bOrdered By: Yordan Vanegas on 11-06-2024 GFR/1.73 sq M.predicted among non-blacks MDRD (S/P/Bld) [Vol rate/Area] 94 mL/min/{1.73_m2} >60 [facility] Comment on above: mL/min/1.73m2 CKD-EP I Creatinine Equation (2020) Glucose Ql (U)Ordered By: Gregory Vanegas on 11-06-2024 Urine Glucose (UA) Normal mg/dl Normal [facility] Gram stainOrdered By: Yordan Vanegas on 11-06-2024 Microscopic observation Gram stain Nom (Unsp spec) [facility] Hematocrit Auto (Bld) [Volum e fraction]Ordered By: Yordan Vanegas on 11-06-2024 Hematocrit (Bld) [Volume fraction] 37.9 % 37-47 [facility] Hemoglobin measurementOrdere d By: Yordan Vanegas on 11-06-2024 Hemoglobin (Bld) [Mass/Vol] 13.1 g/dL 12.0-15.0 [facility] Immature granulocytes/100 WB C Auto (Bld)Ordered By: Yordan Vanegas on 11-06-2024 Immature granulocytes/100 WBC (Bld) 0.500 % 0.0-0.9 [facility] Comment on above: IG% - Immature Granu locytes (promyelocytes, myelocytes and metamyelocytes) > 1% indicates that a LEFT SHIFT is Present. Influenza virus A and B and SARS-CoV-2 (COVID-19) and Respiratory syncytial virus RNAOrdered By: Yordan Vanegas on 11-06-2024 SARS-CoV-2 (COVID-19) RNA MICHELLE+probe Ql (Unsp spec) [facility] Ketones Test strip Ql (U)Ord ered By: Yordan Vanegas on 11-06-2024 Ketones Ql (U) Negative Negative [facility] L. pneumophila Ag Ql (U)Orde red By: Yordan Vanegas on 11-06-2024 Legionella Antigen [facility] L501.4021on 11-06-2024 Trop T High Sen 7 ng/L Normal <=14 [facility] Comment on above: Performed By: #### L 501.4021 #### [facility] [address] [place], [place], [id number] Laboratory - Chemistry and C hemistry - challengeOrdered By: Yordan Vanegas on 11-06-2024 AST [Catalytic activity/Vol] 26 U/L <32 [facility] Lymphocytes Auto (Unsp spec) [#/Vol]Ordered By: Yordan Vanegas on 11-06-2024 Lymphocytes (Bld) [#/Vol] 2.98 10*3/uL 0.83-4.51 [facility] Lymphocytes/100 WBC Auto (Un sp spec)Ordered By: Yordan Vanegas on 11-06-2024 Lymphocytes/100 WBC (Bld) 14.8 % Low 19-41 [facility] M100.678on 11-06-2024 M100.678 Pending SARS-CoV-2 (COVID 19) Negative INFLUENZA A Negative INFLUENZA B Negative RSV PCR Negative Normal [facility] Comment on above: Performed By: #### M 100.678 #### [facility] [address] [place], [address] MCV (mean corpuscular volume ) determinationOrdered By: Yordan Vanegas on 11-06-2024 MCV (RBC) [Entitic vol] 81.5 fL 81-99 [facility] Mean corpuscular hemoglobin (MCH) determinationOrdered By: Yordan Vanegas on 11-06-2024 MCH (RBC) [Entitic mass] 28.2 pg 27.0-32.0 [facility] Mean corpuscular hemoglobin concentration (MCHC) determinationOrdered By: Yordan Vanegas on 11-06-2024 MCHC (RBC) [Mass/Vol] 34.6 g/dL 32-36 [facility] Mean platelet volume determi nationOrdered By: Yordan Vanegas on 11-06-2024 Platelet mean volume (Bld) [Entitic vol] 9.6 fL 6.2-12.0 [facility] Microbial respiratory cultur eOrdered By: Yordan Vanegas on 11-06-2024 Microorganism identified Cx Nom (Unsp spec) Streptococcus pneumoniae Abnormal [facility] Microorganism identified Cx Nom (Unsp spec)Ordered By: Yordan Vanegas on 11-06-2024 Respiratory Culture Streptococcus pneumoniae Abnormal [facility] Microscopic analysis of urin e for red blood cells (RBC)Ordered By: Yordan Vanegas on 11-06-2024 Microscopic analysis of urine for red blood cells (RBC) 0 SEEN /hpf 0-5 [facility] Urine RBC 0 SEEN /hpf 0-5 [facility] Monocyte percentageOrdered B y: Yordan Vanegas on 11-06-2024 Monocytes/100 WBC (Bld) 6.4 % 0-10 [facility] Mucus LM Ql (Urine sed)Order ed By: Yordan Vanegas on 11-06-2024 Mucus Ql (Urine sed) 0 SEEN /hpf [facility] Neutrophil percentageOrdered By: Yordan Vanegas on 11-06-2024 Neutrophils/100 WBC (Bld) 77.6 % High 47-70 [facility] Nitrite Test strip Ql (U)Ord ered By: Yordan Vanegas on 11-06-2024 Nitrite Ql (U) Negative Negative [facility] No Panel InformationOrdered By: Yordan Vanegas on 11-06-2024 Troponin T High Sensitivity 7 ng/L <14 [facility] Nucleated red blood cell per centageOrdered By: Yordan Vanegas on 11-06-2024 Nucleated RBC/100 WBC (Bld) [Ratio] 0 % 0-5 [facility] Platelet countOrdered By: Gregory Vanegas on 11-06-2024 Platelets (Bld) [#/Vol] 536 10*3/uL High 150-450 [facility] Potassium (Unsp spec) [Mass/ Vol]Ordered By: Yordan Vanegas on 11-06-2024 Potassium [Moles/Vol] 3.7 mmol/L 3.3-5.1 [facility] Potassium measurement (mass/ volume)Ordered By: Yordan Vanegas on 11-06-2024 Potassium (Unsp spec) [Mass/Vol] 3.7 mmol/L 3.3-5.1 [facility] Protein Test strip Ql (U)Ord ered By: Yordan Vanegas on 11-06-2024 Protein Ql (U) Negative Negative [facility] RBC Auto (Bld) [#/Vol]Ordere d By: Yordan Vanegas on 11-06-2024 RBC (Bld) [#/Vol] 4.65 10*6/uL 4.2-5.4 [facility] Serum creatinine measurement (mass/volume)Ordered By: Yordan Vanegas on 11-06-2024 Creatinine [Mass/Vol] 0.77 mg/dL 0.70-1.20 [facility] Serum globulin measurementOr dered By: Yordan Vanegas on 11-06-2024 Globulin (S) [Mass/Vol] 2.7 g/dL 2.2-4.2 [facility] Serum glucose measurement (m ass/volume)Ordered By: Yordan Vanegas on 11-06-2024 Glucose [Mass/Vol] 139 mg/dL High 70-99 [facility] Serum or plasma alanine ruby otransferase (ALT) measurementOrdered By: Yordan Vanegas on 11-06-2024 ALT [Catalytic activity/Vol] 21 U/L <35 [facility] Serum or plasma albumin sanford urement (mass/volume)Ordered By: Yordan Vanegas on 11-06-2024 Albumin [Mass/Vol] 4.2 g/dL 3.5-5.0 [facility] Serum or plasma albumin/glob ulin mass ratioOrdered By: Yordan Vanegas on 11-06-2024 Albumin/Globulin [Mass ratio] 1.5 {ratio} 0.9-2.4 [facility] Serum or plasma alkaline neftali sphatase measurementOrdered By: Yordan Vanegas on 11-06-2024 ALP [Catalytic activity/Vol] 94 U/L 35-104 [facility] Serum or plasma calcium sanford urement (mass/volume)Ordered By: Yordan Vanegas on 11-06-2024 Calcium [Mass/Vol] 9.4 mg/dL 7.6-11.0 [facility] Serum or plasma urea nitroge n measurement (mass/volume)Ordered By: Yordan Vanegas on 11-06-2024 Urea nitrogen [Mass/Vol] 12 mg/dL 4-19 [facility] Sodium levelOrdered By: Jeferson Vanegas on 11-06-2024 Sodium [Moles/Vol] 140 mmol/L 133-145 [facility] Squamous epithelial cells de tection in urine sediment by light microscopyOrdered By: Yordan Vanegas on 11-06-2024 Epithelial cells.squamous LM Ql (Urine sed) 0 SEEN /hpf 5-10 [facility] Streptococcus pneumoniae ant igen assayOrdered By: Yordan Vanegas on 11-06-2024 Streptococcus pneumoniae Antigen (M [facility] Total proteinOrdered By: Frantz Vanegas on 11-06-2024 Protein [Mass/Vol] 6.9 g/dL 5.9-8.4 [facility] Urinalysis, Completeon 11-06 RBC 0 SEEN Normal 0-5 [facility] Comment on above: Order Comment: CLEAN CATCH Performed By: #### L 400.0001 #### [facility] [address] [place], [address] WBC 0-5 SEEN Normal 0-5 [facility] Comment on above: Order Comment: CLEAN CATCH Performed By: #### L 400.0001 #### [facility] [address] [place], [address] BACTERIA 0 SEEN Normal None Seen [facility] Comment on above: Order Comment: CLEAN CATCH Performed By: #### L 400.0001 #### [facility] [address] [place], [address] EPI,SQUAMOUS 0 SEEN Normal 5-10 [facility] Comment on above: Order Comment: CLEAN CATCH Performed By: #### L 400.0001 #### [facility] [address] [place], [address] Mucus Ql (Urine sed) 0 SEEN Normal [facility] Comment on above: Order Comment: CLEAN CATCH Performed By: #### L 400.0001 #### [facility] [address] [place], [address] Urine Legionella pneumophila antigen detectionOrdered By: Yordan Vanegas on 11-06-2024 L. pneumophila Ag Ql (U) [facility] Urine blood detectionOrdered By: Yordan Vanegas on 11-06-2024 Urine Occult Blood Negative Negative [facility] Urine clarityOrdered By: Frantz Vanegas on 11-06-2024 Clarity (U) Clear Clear [facility] Urine color determinationOrd ered By: Yordan Vanegas on 11-06-2024 Color (U) Yellow Yellow [facility] Urine glucose detectionOrder ed By: Yordan Vanegas on 11-06-2024 Glucose Ql (U) Normal mg/dl Normal [facility] Urine leukocyte esterase det ection by dipstickOrdered By: Yordan Vanegas on 11-06-2024 Leukocyte esterase Test strip Ql (U) Negative Negative [facility] Urine pHOrdered By: Yordan carranza on 11-06-2024 pH (U) 8.0 [pH] 5.0 - 8.0 [facility] Urine sediment bacteria coun t by microscopy (number/high power field)Ordered By: Yordan Vanegas on 11-06-2024 Bacteria LM.HPF (Urine sed) [#/Area] 0 /[HPF] None Seen [facility] Urine specific gravity measu rementOrdered By: Yordan Katzehne on 11-06-2024 Specific gravity (U) [Rel density] 1.010 1.002-1.030 [facility] Urine urobilinogen measureme ntOrdered By: Yordan Guilherme on 11-06-2024 Urobilinogen Ql (U) Normal mg/dl Normal [facility] Urobilinogen Ql (U)Ordered B y: Yordan Vanegas on 11-06-2024 Urine Urobilinogen Normal mg/dl Normal [facility] White blood cell (WBC) count Ordered By: Yordan Vanegas on 11-06-2024 WBC (Bld) [#/Vol] 20.2 10*3/uL High 4.4-11.0 [facility] White blood cell countOrdere d By: Yordan Guilherme on 11-06-2024 Urine WBC 0-5 SEEN /hpf 0-5 [facility] White blood cell count 0-5 SEEN /hpf 0-5 [facility] Pulmonary Visit Reporton Pulmonary Visit Report [facility] [address] [place] [address] OFFICE VISIT Date of Service: 11/01/24 MR#: [id number] Acct: [id number] Name: OFE GIMENEZ Rep #: [id number] : 1975 Provider: Patience Del Real NP Age/Sex: 49/F [facility] Status: Signed Assessment and Plan Assessment and [...] shortness of breath. Dr. 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 Normal [facility] Chest WITH Contraston 2024 Chest WITH Contrast [facility] [address] [place] [address] Chest WITH Contrast MR#: [id number] Acct: [id number] Name: OFE GIMENEZ Rep #: [id number] : 1975 F 49 From: Luis doherty MD PCP: Dr. Yarelis Fitzpatrick, DO Status: REG CLI Study: Chest WITH Contrast Date of Exam: 10/15/24 Exam# [id number] Ordering Dr: Kimberly Jacobson ROVER TENDER-C PROCEDURE: CHEST WITH CONTRAST REASON FOR EXAM: [...] use of iterative reconstruction technique). Reading Location: [id number] CC: DARRYN Jacobson; Dr. Yarelis Fitzpatrick DO Veneer Marker: Signed Normal [facility] Respiratory Cultureon 2024 RESPC Streptococcus pneumo niae [...] S Penicillin Islt CELENA <=0.06 S Normal [facility] Comment on above: Performed By: #### M 100.6040, M100.1999 #### [facility] [address] [place], [address] Gram Stainon 09-27-2024 GS Acceptable Specimen? Yes (<25 Epithelial cells per/lpf) Gram Stain 2+ Gram positive cocci Rare Gram positive rods 1+ White Blood Cells Normal [facility] Comment on above: Performed By: #### M 100.2400, M100.1999 #### [facility] [address] [facility] [place], [place], [id number] Gram stainOrdered By: NAREN Del Real on 09-27-2024 Microscopic observation Gram stain Nom (Unsp spec) [facility] Microbial respiratory cultur eOrdered By: NAREN Del Real on 09-27-2024 Microorganism identified Cx Nom (Unsp spec) Streptococcus pneumoniae Abnormal [facility] Microorganism identified Cx Nom (Unsp spec)Ordered By: NAREN Del Real on 09-27-2024 Respiratory Culture Streptococcus pneumoniae Abnormal [facility] AFP, Tumor Markeron 09-06-19 25 AFP TUMOR OSVALDO 3.1 ng/mL Normal 0.0-9.2 [facility] Comment on above: Order Comment: WILLIAM COX ORDERED QTFNALL OTHER LAB ROVER TENDER.CGRISHIN Result Comment: [employer] Electrochemiluminescence Immunoassay (ECLIA) Values obtained with different assay methods or kits cannot be used interchangeably. Results cannot be interpreted as absolute evidence of the presence or absence of malignant disease. This test is not interpretable in females. Performed at: [address] [id number] Lobsterman: Ramsey Oleary PhD, Phone: [phone] Performed By: #### M 100.2400, M100.1999 #### [facility] [address] [facility] [place], [address] HCG BETA-SUBUNIT QUANT.on HCG B-SUBUNIT 2 mIU/mL Normal . [facility] Comment on above: Order Comment: DX ME DIASTINAL MASSNP.LRUFENER ORDERED QTFNALL OTHER LAB ROVER TENDER.CGRAHAM Result Comment: Fema le (Non-) 0 - 5 (Postmenopausal) 0 - 8 Female () Weeks of Gestation 3 6 - 71 4 10 - 750 5 375 - 7233 6 857 - 12300 7 0099 -[id number] 8 66159 -406062 9 05380 -197196 10 43909 -727440 12 34768 -733629 14 26944 - 31541 15 63804 - 34833 16 1932 - 51702 17 4227 - 84864 18 0210 - 33439 Courtney ECLIA methodology Performed at: [address] [id number] Lobsterman: Ramsey Oleary PhD, Phone: [phone] Performed By: #### M 100.2400, #### [facility] [address] [place], [address] Quantiferon TB-Gold+on 09-06 QFT MITOGEN KINGA > 10.00 Normal . [facility] Comment on above: Order Comment: ROVER TENDER.LR UFENER ORDERED QTFNALL OTHER LAB ROVER TENDER.CGRAHAMN Performed By: #### M 100.2400, #### [facility] [address] [place], [address] QFT NIL VALUE 0.06 IU/mL Normal . [facility] Comment on above: Order Comment: ROVER TENDER.LR UFENER ORDERED QTFNALL OTHER LAB ROVER TENDER.CGRAHAMN Performed By: #### M 100.2400, #### [facility] [address] [place], [address] QFT TB GOLD+ Comment Normal . [facility] Comment on above: Order Comment: ROVER TENDER.LR UFENER ORDERED QTFNALL OTHER LAB ROVER TENDER.CGRAHAMN Result Comment: Jesus tiFERON-TB Gold Plus is [...] test. Performed By: #### M 100.2400, #### [facility] [address] [place], [address] QFT TB POS CRIT Negative Normal Negative [facility] Comment on above: Order Comment: ROVER TENDER.LR UFCHUCKIE ORDERED QTFNALL OTHER LAB ROVER TENDER.CGRAHAMN Result Comment: No r esponse to M [...] Performed By: #### M 100.2400, M1.1999 #### [facility] [address] [place], [address] QFT TB1+ AG KINGA 0.07 IU/mL Normal . [facility] Comment on above: Order Comment: ROVER TENDER.LR BRIDGETTECHUCKIE ORDERED QTFNALL OTHER LAB ROVER TENDER.CGRAHAMN Performed By: #### M 100.2400, M1 #### [facility] [address] [place], [address] QFT TB2+ AG KINGA 0.06 IU/mL Normal . [facility] Comment on above: Order Comment: ROVER TENDER.LR BRIDGETTECHUCKIE ORDERED QTFNALL OTHER LAB ROVER TENDER.CGRAHAMN Performed By: #### M 100.2400, M1 #### [facility] [address] [place], [address] Absolute lymphocyte countOrd ered By: NAREN Del Real on 09-04-2024 Lymphocytes Auto (Unsp spec) [#/Vol] 2.99 10*3/uL 0.83-4.51 [facility] Absolute neutrophil countOrd ered By: NAREN Del Real on 09-04-2024 Neutrophils (Bld) [#/Vol] 4.1 10*3/uL 2.0-7.7 [facility] Alpha fetoprotein measuremen t as tumor markerOrdered By: NAREN Del Real on 09-04-2024 Tumor Marker Alpha Fetoprotein 3.1 ng/mL 0.0-9.2 [facility] Comment on above: [employer] El ectrochemiluminescence Immunoassay(ECLIA)Values obtained with different assay methods or kits cannotbe used interchangeably. Results cannot be interpreted asabsolute evidence of the presence or absence of malignantdisease.This test is not interpretable in females.Performed at: [address] [id number] Director: Ramsey Oleary PhD, Phone: [phone] Automated blood erythrocyte countOrdered By: NAREN Patience Nasima on 09-04-2024 RBC (Bld) [#/Vol] 4.45 10*6/uL Normal 4.2-5.4 [facility] Comment on above: Order Comment: WILLIAM COX ORDERED QTFN ALL OTHER LAB ROVER TENDER.CGRAHAM Performed By: #### L 500.2500, L100.0100, L504.2610, L3100.5140, L100.9950, L3300.0700, L501.6710, L500.3400, L3400.8000 #### [facility] [address] [facility] [place], [place], [address] Automated blood hematocrit ( percentage)Ordered By: NAREN Del Real on 09-04-2024 Hematocrit (Bld) [Volume fraction] 36.8 % Low 37-47 [facility] Comment on above: Order Comment: WILLIAM COX ORDERED QTFN ALL OTHER LAB ROVER TENDER.CGRAHAM Performed By: #### L 500.2500, L100.0100, L504.2610, L3100.5140, L100.9950, L3300.0700, L501.6710, L500.3400, L3400.8000 #### [facility] [address] [facility] [place], [place], [id number] Automated lymphocyte count a s percentage of total leukocytesOrdered By: NAREN Del Real on 09-04-2024 Lymphocytes/100 WBC (Bld) 38.3 % Normal 19-41 [facility] Comment on above: Order Comment: ROVER TENDER.LR UFENER ORDERED QTFN ALL OTHER LAB ROVER TENDER.CGRAHAM Performed By: #### L 500.2500, L100.0100, L504.2610, L3100.5140, L100.9950, L3300.0700, L501.6710, L500.3400, L3400.8000 #### [facility] [address] [place], [address] Lymphocytes/100 WBC Auto (Unsp spec) 38.3 % - [facility] Basic Metabolic Profile (BMP )on 09-04-2024 BUN/CRE 11.1 RATIO Normal -20 [facility] Comment on above: Order Comment: ROVER TENDER.LR UFENER ORDERED QTFNALL OTHER LAB ROVER TENDER.CGRAHAM1 Performed By: #### M 100.2400, #### [facility] [address] [place], [address] CA,Total 8.8 mg/dL Normal 8.5-10.1 [facility] Comment on above: Order Comment: ROVER TENDER.LR UFENER ORDERED QTFNALL OTHER LAB ROVER TENDER.CGRAHAM1 Performed By: #### M 100.2400, .1999 #### [facility] [address] [place], [address] EST GFR - AA 96 mL/min Normal >60 [facility] Comment on above: Order Comment: ROVER TENDER.LR UFENER ORDERED QTFNALL OTHER LAB ROVER TENDER.CGRAHAM1 Result Comment: Afri can Cymraes GFR Calc Performed By: #### M 100.2400, M1.1999 #### [facility] [address] [place], [address] GAP 6 Normal 5-15 [facility] Comment on above: Order Comment: ROVER TENDER.LR UFENER ORDERED QTFNALL OTHER LAB ROVER TENDER.CGRAHAM1 Performed By: #### M 100.2400, M1.1999 #### [facility] [address] [place], [place], [address] Basophil percentageOrdered B y: NAREN Patience Del Real on 09-04-2024 Basophils/100 WBC (Bld) 1.2 % High 0-1 [facility] Comment on above: Order Comment: ROVER TENDER.LR UFENER ORDERED QTFN ALL OTHER LAB ROVER TENDER.CGRISHI Performed By: #### L 500.2500, L100.0100, L504.2610, L3100.5140, L100.9950, L3300.0700, L501.6710, L500.3400, L3400.8000 #### [facility] [address] [place], [place], [address] Bilirubin directOrdered By: NAREN Del Real on 09-04-2024 Bilirubin.direct [Mass/Vol] mg/dL 0.00-0.30 [facility] Bilirubin, totalOrdered By: NAREN Del Real on 09-04-2024 Bilirubin [Mass/Vol] 0.30 mg/dL Normal 0.20-1.00 [facility] Comment on above: For patients on eltr ombopag therapy, use of Dimension [place] TBIL is not recommended. Order Comment: ROVER TENDER.LR UFENER ORDERED QTFNALL OTHER LAB ROVER TENDER.KATHIE1 Result Comment: For patients on eltrombopag therapy, use of Dimension [place] TBIL is not recommended. Performed By: #### M 100.2400, M100.2000 #### [facility] [address] [place], [place], [address] Bilirubin.direct [Mass/Vol]O rdered By: NAREN Del Real on 09-04-2024 Direct Bilirubin < 0.05 mg/dL 0.00-0.30 [facility] Blood urea nitrogen (BUN)/cr eatinine ratioOrdered By: NAREN Del Real on 09-04-2024 Urea nitrogen/Creatinine [Mass ratio] 11.1 mg/mg 10-20 [facility] C-reactive protein measureme nt by high sensitivity methodOrdered By: NAREN Del Real on 09-04-2024 C-Reactive Protein Extended Range 3.30 mg/L High 0.0-3.0 [facility] Comment on above: C-Reactive Protein ( CRP) provides useful information for thediagnosis, therapy and monitoring of inflammatory processesand associated diseases. For the evaluation of Relative Riskfor Cardiovascular Disease, a High Sensitivity CRP (HSCRP)should be ordered. C-reactive protein measurement by high sensitivity method 3.30 mg/L High 0.0-3.0 [facility] Comment on above: C-Reactive Protein ( CRP) provides useful information for thediagnosis, therapy and monitoring of inflammatory processesand associated diseases. For the evaluation of Relative Riskfor Cardiovascular Disease, a High Sensitivity CRP (HSCRP)should be ordered. CBC W/Diff, Automatedon 08-21 Absolute Lymph 2.99 X10 3/uL Normal 0.83-4.51 [facility] Comment on above: Order Comment: ROVER TENDER.LR UFENER ORDERED QTFN ALL OTHER LAB ROVER TENDER.CGRAHAM Performed By: #### L 500.2500, L100.0100, L504.2610, L3100.5140, L100.9950, L3300.0700, L501.6710, L500.3400, L3400.8000 #### [facility] [address] [facility] [place], [place], [address] Absolute Neut 4.1 X10 3/uL Normal 2.0-7.7 [facility] Comment on above: Order Comment: ROVER TENDER.LR UFENER ORDERED QTFN ALL OTHER LAB ROVER TENDER.CGRAHAM Performed By: #### L 500.2500, L100.0100, L504.2610, L3100.5140, L100.9950, L3300.0700, L501.6710, L500.3400, L3400.8000 #### [facility] [address] [facility] [place], [place], [address] IG% 0.300 Normal 0.0-0.9 [facility] Comment on above: Order Comment: ROVER TENDER.LR UFENER ORDERED QTFN ALL OTHER LAB ROVER TENDER.CGRAHAM Result Comment: IG% - Immature Granulocytes (promyelocytes, myelocytes and metamyelocytes) > 1% indicates that a LEFT SHIFT is Present. Performed By: #### L 500.2500, L100.0100, L504.2610, L3100.5140, L100.9950, L3300.0700, L501.6710, L500.3400, L3400.8000 #### [facility] [address] [place], [address] Nucleated RBC (Bld) [#/Vol] 0 10*3/uL Normal 0-5 [facility] Comment on above: Order Comment: ROVER TENDER.LR UFENER ORDERED QTFN ALL OTHER LAB ROVER TENDER.CGRAHAM Performed By: #### L 500.2500, L100.0100, L504.2610, L3100.5140, L100.9950, L3300.0700, L501.6710, L500.3400, L3400.8000 #### [facility] [address] [place], [address] RDW SD 40.9 fl Normal 35.1-43.9 [facility] Comment on above: Order Comment: ROVER TENDER.LR UFENER ORDERED QTFN ALL OTHER LAB ROVER TENDER.CGRAHAM Performed By: #### L 500.2500, L100.0100, L504.2610, L3100.5140, L100.9950, L3300.0700, L501.6710, L500.3400, L3400.8000 #### [facility] [address] [place], [place], [address] CRPon 09-04-2024 C-REACTIVE PROT 3.30 mg/L High 0.0-3.0 [facility] Comment on above: Order Comment: ROVER TENDER.LR UFENER ORDERED QTFNALL OTHER LAB ROVER TENDER.CGRAHAM1 Result Comment: C-Re active Protein (CRP) provides useful information for the diagnosis, therapy and monitoring of inflammatory processes and associated diseases. For the evaluation of Relative Risk for Cardiovascular Disease, a High Sensitivity CRP (HSCRP) should be ordered. Performed By: #### M 100.2400, M100.2000 #### [facility] [address] [place], [place], [address] Carbon dioxide measurementOr dered By: NAREN Patience Del Real on 09-04-2024 CO2 [Moles/Vol] 30.0 mmol/L Normal 21.0-32.0 [facility] Comment on above: Order Comment: ROVER TENDER.LR UFENER ORDERED QTFNALL OTHER LAB ROVER TENDER.CGRAHAM1 Performed By: #### M 100.2400, M100.1999 #### [facility] [address] [place], [place], [address] Chloride measurementOrdered By: NAREN Patience Dovemanuel on 09-04-2024 Chloride [Moles/Vol] 105 mmol/L Normal 98-107 [facility] Comment on above: Order Comment: ROVER TENDER.LR UFENER ORDERED QTFNALL OTHER LAB ROVER TENDER.CGRAHAM1 Performed By: #### M 100.2400, M100.1999 #### [facility] [address] [place], [place], [address] Eosinophil percentageOrdered By: NAREN Patience Dovemanuel on 09-04-2024 Eosinophils/100 WBC (Bld) 0.8 % Normal 0-5 [facility] Comment on above: Order Comment: ROVER TENDER.LR UFENER ORDERED QTFN ALL OTHER LAB ROVER TENDER.CGRAHAM Performed By: #### L 500.2500, L100.0100, L504.2610, L3100.5140, L100.9950, L3300.0700, L501.6710, L500.3400, L3400.8000 #### [facility] [address] [place], [place], [address] Erythrocyte distribution wid th ratioOrdered By: NAREN Patience Dovemanuel on 09-04-2024 Erythrocyte distribution width (RBC) [Ratio] 13.6 % Normal 11.6-14.6 [facility] Comment on above: Order Comment: ROVER TENDER.LR UFENER ORDERED QTFN ALL OTHER LAB ROVER TENDER.CGRAHAM Performed By: #### L 500.2500, L100.0100, L504.2610, L3100.5140, L100.9950, L3300.0700, L501.6710, L500.3400, L3400.8000 #### [facility] [address] [place], [address] Erythrocyte distribution wid th standard deviationOrdered By: NAREN Del Real on 09-04-2024 Erythrocyte distribution width (RBC) [Entitic vol] 40.9 fL 35.1-43.9 [facility] Erythrocyte distribution width (RBC) [Ratio] 40.9 fl 35.1-43.9 [facility] Estimated glomerular filtrat ion rate (GFR) AmericanOrdered By: NAREN Del Real on 09-04-2024 Estimated GFR (MDRD) Amer 96 mL/min >60 [facility] Comment on above: GFR Calc Glomerular filtration rate ( GFR) estimationOrdered By: NAREN Del Real on 09-04-2024 GFR/1.73 sq M.predicted among non-blacks MDRD (S/P/Bld) [Vol rate/Area] 79 mL/min/{1.73_m2} Normal >60 [facility] Comment on above: Non- GFR Calc Order Comment: ROVER TENDER.LR UFENER ORDERED QTFNALL OTHER LAB ROVER TENDER.CGRAHAM1 Result Comment: Non- GFR Calc Performed By: #### M 100.2400, M100.1999 #### [facility] [address] [place], [place], [id number] Estimated GFR (MDRD) Non-Af Amer 79 mL/min >60 [facility] Comment on above: Non- GFR Calc Glucose measurementOrdered B y: NAREN Del Real on 09-04-2024 Glucose [Mass/Vol] 137 mg/dL High 74-106 [facility] Comment on above: Fasting Glucose resu lt greater than or equal to 126 mg/dL suggests DIABETES MELLITUS per A.D.A. criteria. Order Comment: ROVER TENDER.LR UFENER ORDERED QTFNALL OTHER LAB ROVER TENDER.CGRAHAM1 Result Comment: Fast ing Glucose result greater than or equal to 126 mg/dL suggests DIABETES MELLITUS per A.D.A. criteria. Performed By: #### M 100.2400, M100.2000 #### [facility] [address] [place], [place], [id number] HCG, beta, subunitOrdered By : NAREN Del Real on 09-04-2024 HCG Beta Subunit 2 mIU/mL . [facility] Comment on above: Female (Non- ) 0 - 5 (Postmenopausal) 0 - 8 Female () Weeks of Gestation 3 6 - 71 4 10 - 750 5 217 - 7138 6 158 - 12820 7 6467 -264632 8 75358 -235521 9 69523 -628527 10 67666 -494631 12 72780 -669561 14 92438 - 75312 15 14489 - 23418 16 9608 - 92351 17 7052 - 86003 18 2168 - 88631Roche ECLIA methodologyPerformed at: [employer] [address] [id number] Director: Ramsey Oleary PhD, Phone: [phone] HCG, beta, subunit 2 mIU/mL . [facility] Comment on above: Female (Non- ) 0 - 5 (Postmenopausal) 0 - 8 Female () Weeks of Gestation 3 6 - 71 4 10 - 750 5 217 - 7138 6 158 - 93062 7 4318 -967773 8 77546 -913981 9 79219 -351139 10 56621 -524977 12 54620 -067842 14 45183 - 60530 15 45084 - 38971 16 2517 - 68843 17 9255 - 51357 18 4715 - 63442Roche ECLIA methodologyPerformed at: [employer] [address] [id number] Director: Ramsey Oleary PhD, Phone: [phone] Hemoglobin (Reticulocytes) [ Entitic mass]Ordered By: NAREN Del Real on 09-04-2024 Reticulocyte Hemoglobin Equivalent 31.5 pg 30-35 [facility] Hemoglobin measurementOrdere d By: NAREN Del Real on 09-04-2024 Hemoglobin (Bld) [Mass/Vol] 12.4 g/dL Normal 12.0-15.0 [facility] Comment on above: Order Comment: ROVER TENDER.LR UFENER ORDERED QTFN ALL OTHER LAB ROVER TENDER.CGRAHAM Performed By: #### L 500.2500, L100.0100, L504.2610, L3100.5140, L100.9950, L3300.0700, L501.6710, L500.3400, L3400.8000 #### [facility] [address] [place], [address] Immature granulocytes/100 WB C Auto (Bld)Ordered By: NAREN Del Real on 09-04-2024 Immature granulocytes/100 WBC (Bld) 0.300 % 0.0-0.9 [facility] Comment on above: IG% - Immature Granu locytes (promyelocytes, myelocytes and metamyelocytes) > 1% indicates that a LEFT SHIFT is Present. Immature reticulocyte fracti onOrdered By: NAREN Del Real on 09-04-2024 Immature Reticulocyte Fraction 1.10 % Low 3.00-15.90 [facility] LDHon 09-04-2024 LDH 164 U/L Normal 84-246 [facility] Comment on above: Order Comment: ROVER TENDER.LR UFENER ORDERED QTFNALL OTHER LAB ROVER TENDER.CGRAHAM1 Performed By: #### M 100.2400, M1 #### [facility] [address], [address] Lactate dehydrogenase (LDH) measurementOrdered By: NAREN Del Real on 09-04-2024 LDH [Catalytic activity/Vol] 164 U/L 84-246 [facility] Liver Profileon 09-04-2024 ALK P 106 U/L Normal 45-117 [facility] Comment on above: Order Comment: ROVER TENDER.LR UFENER ORDERED QTFNALL OTHER LAB ROVER TENDER.CGRAHAM1 Performed By: #### M 100.2400, M1.1999 #### [facility] [address] [place], [address] D BILI < 0.05 Normal 0.00-0.30 [facility] Comment on above: Order Comment: ROVER TENDER.LR UFENER ORDERED QTFNALL OTHER LAB ROVER TENDER.CGRAHAM1 Performed By: #### M 100.2400, M1.1999 #### [facility] [address] [place], [address] T PROT 6.8 g/dL Normal 6.4-8.2 [facility] Comment on above: Order Comment: ROVER TENDER.LR UFENER ORDERED QTFNALL OTHER LAB ROVER TENDER.CGRAHAM1 Performed By: #### M 100.2400, M1.1999 #### [facility] [address] [place], [address] Liver ProfileOrdered By: NAREN Del Real on 09-04-2024 AST [Catalytic activity/Vol] 17 U/L Normal 15-37 [facility] Comment on above: Order Comment: ROVER TENDER.CHAD COX ORDERED QTFNALL OTHER LAB ROVER TENDER.CGRAHAM1 Performed By: #### M 100.2400, #### [facility] [address] [place], [address] Lymphocytes Auto (Unsp spec) [#/Vol]Ordered By: NAREN Del Real on 09-04-2024 Lymphocytes (Bld) [#/Vol] 2.99 10*3/uL 0.83-4.51 [facility] M. tuberculosis tuberculin s gildardo IFN-g Ql (Bld)Ordered By: NAREN Del Real on 09-04-2024 TB Test (QFT) Antigen 1 0.07 IU/mL . [facility] MCV (mean corpuscular volume ) determinationOrdered By: NAREN Del Real on 09-04-2024 MCV (RBC) [Entitic vol] 82.7 fL Normal 81-99 [facility] Comment on above: Order Comment: ROVER TENDER.CHAD COX ORDERED QTFN ALL OTHER LAB ROVER TENDER.CGRAHAM Performed By: #### L 500.2500, L100.0100, L504.2610, L3100.5140, L100.9950, L3300.0700, L501.6710, L500.3400, L3400.8000 #### [facility] [address], [place], [id number] Mean corpuscular hemoglobin (MCH) determinationOrdered By: NAREN Del Real on 09-04-2024 MCH (RBC) [Entitic mass] 27.9 pg Normal 27.0-32.0 [facility] Comment on above: Order Comment: ROVER TENDER.LR UFENER ORDERED QTFN ALL OTHER LAB ROVER TENDER.CGRAHAM Performed By: #### L 500.2500, L100.0100, L504.2610, L3100.5140, L100.9950, L3300.0700, L501.6710, L500.3400, L3400.8000 #### [facility] [address], [place], [id number] Mean corpuscular hemoglobin concentration (MCHC) determinationOrdered By: NAREN Del Real on 09-04-2024 MCHC (RBC) [Mass/Vol] 33.7 g/dL Normal 32-36 [facility] Comment on above: Order Comment: ROVER TENDER.LR UFENER ORDERED QTFN ALL OTHER LAB ROVER TENDER.CGRAHAM Performed By: #### L 500.2500, L100.0100, L504.2610, L3100.5140, L100.9950, L3300.0700, L501.6710, L500.3400, L3400.8000 #### [facility] [address], [place], [address] Mean platelet volume determi nationOrdered By: NAREN Del Real on 09-04-2024 Platelet mean volume (Bld) [Entitic vol] 9.0 fL Normal 6.2-12.0 [facility] Comment on above: Order Comment: ROVER TENDER.LR UFENER ORDERED QTFN ALL OTHER LAB ROVER TENDER.CGRAHAM Performed By: #### L 500.2500, L100.0100, L504.2610, L3100.5140, L100.9950, L3300.0700, L501.6710, L500.3400, L3400.8000 #### [facility] [address] [place], [address] Monocyte percentageOrdered B y: NAREN Patience Dovemanuel on 09-04-2024 Monocytes/100 WBC (Bld) 7.0 % Normal 0-10 [facility] Comment on above: Order Comment: ROVER TENDER.CHAD COX ORDERED QTFN ALL OTHER LAB ROVER TENDER.CGRAHAM Performed By: #### L 500.2500, L100.0100, L504.2610, L3100.5140, L100.9950, L3300.0700, L501.6710, L500.3400, L3400.8000 #### [facility] [address] [facility] [place], [address] Neutrophil percentageOrdered By: NAREN Del Real on 09-04-2024 Neutrophils/100 WBC (Bld) 52.4 % Normal 47-70 [facility] Comment on above: Order Comment: ROVER TENDER.CHAD COX ORDERED QTFN ALL OTHER LAB ROVER TENDER.CGRAHAM Performed By: #### L 500.2500, L100.0100, L504.2610, L3100.5140, L100.9950, L3300.0700, L501.6710, L500.3400, L3400.8000 #### [facility] [address] [facility] [place], [address] Nucleated red blood cell per centageOrdered By: NAREN Del Real on 09-04-2024 Nucleated RBC/100 WBC (Bld) [Ratio] 0 % 0-5 [facility] Platelet countOrdered By: NAREN Del Real on 09-04-2024 Platelets (Bld) [#/Vol] 513 10*3/uL High 150-450 [facility] Comment on above: Order Comment: ROVER TENDER.CHAD COX ORDERED QTFN ALL OTHER LAB ROVER TENDER.CGRAHAM Performed By: #### L 500.2500, L100.0100, L504.2610, L3100.5140, L100.9950, L3300.0700, L501.6710, L500.3400, L3400.8000 #### [facility] [address] [place], [place], [address] Potassium measurementOrdered By: NAREN Del Real on 09-04-2024 Potassium [Moles/Vol] 3.6 mmol/L Normal 3.5-5.1 [facility] Comment on above: Order Comment: WILLIAM COX ORDERED QTFNALL OTHER LAB ROVER TENDER.CGRAHAM1 Performed By: #### M 100.2400, M100.2000 #### [facility] [address] [place], [place], [address] Qualitative QuantiFERON-TB g old in tube testOrdered By: NAREN Del Real on 09-04-2024 M. tuberculosis tuberculin stim IFN-g Ql (Bld) 0.07 IU/mL . [facility] Quantiferon-TB Gold Plus moise tOrdered By: NAREN Del Real on 09-04-2024 TB Test (QFT) Comment . [facility] Comment on above: QuantiFERON-TB Gold Plus is [...] Test (QFT) Antigen 2 0.06 IU/mL . [facility] TB Test (QFT) Mitogen > 10.00 IU/mL . [facility] TB Test (QFT) Nil 0.06 IU/mL . [facility] TB Test (QFT) Positive Criteria Negative Negative [facility] Comment on above: No response to M [...] 09-04-2024 IM RET FRACTION 1.10 Low 3.00-15.90 [facility] Comment on above: Order Comment: ROVER TENDER.CHAD COX ORDERED QTFNALL OTHER LAB ROVER TENDER.CGRAHAM Performed By: #### M 100.2400, M1.1999 #### [facility] [address] [place], [address] RET-HE 31.5 pg Normal 30-35 [facility] Comment on above: Order Comment: ROVER TENDER.CHAD COX ORDERED QTFNALL OTHER LAB ROVER TENDER.CGRISHI Performed By: #### M 100.2400, M1.1999 #### [facility] [address] [place], [address] Retic Count 0.46 Low 0.5-1.5 [facility] Comment on above: Order Comment: ROVER TENDER.CHAD COX ORDERED QTFNALL OTHER LAB ROVER TENDER.CGRISHI Performed By: #### M 100.2400, M1.1999 #### [facility] [address] [facility] [place], [address] Reticulocyte hemoglobin equi valent (RET-He) measurementOrdered By: NAREN Del Real on 09-04-2024 Hemoglobin (Reticulocytes) [Entitic mass] 31.5 pg 30-35 [facility] Reticulocytes Auto (Bld) [#/ Vol]Ordered By: NAREN Del Real on 09-04-2024 Reticulocyte Count 0.46 % Low 0.5-1.5 [facility] Reticulocytes/100 RBC (Bld) 0.46 % Low 0.5-1.5 [facility] Serum anion gap measurementO rdered By: NAREN Del Real on 09-04-2024 Anion gap [Moles/Vol] 6 mmol/L - [facility] Serum globulin measurementOr dered By: NAREN Del Real on 09-04-2024 Globulin (S) [Mass/Vol] 3.2 g/dL Normal 2.2-4.2 [facility] Comment on above: Order Comment: ROVER TENDER.LR UFENER ORDERED QTFNALL OTHER LAB ROVER TENDER.CGRAHAM1 Performed By: #### M 100.2400, M1 #### [facility] [address] [place], [address] Serum or plasma alanine ruby otransferase (ALT) measurementOrdered By: NAREN Del Real on 09-04-2024 ALT [Catalytic activity/Vol] 22 U/L Normal 13-56 [facility] Comment on above: Order Comment: ROVER TENDER.LR UFENER ORDERED QTFNALL OTHER LAB ROVER TENDER.CGRAHAM1 Performed By: #### M 100.2400, M1 #### [facility] [address] [place], [address] Serum or plasma albumin sanford urement (mass/volume)Ordered By: NAREN Del Real on 09-04-2024 Albumin [Mass/Vol] 3.6 g/dL Normal 3.2-5.0 [facility] Comment on above: Order Comment: ROVER TENDER.LR UFENER ORDERED QTFNALL OTHER LAB ROVER TENDER.CGRAHAM1 Performed By: #### M 100.2400, #### [facility] [address], [place], [address] Serum or plasma alkaline neftali sphatase measurementOrdered By: NAREN Del Real on 09-04-2024 ALP [Catalytic activity/Vol] 106 U/L 45-117 [facility] Serum or plasma calcium sanford urement (mass/volume)Ordered By: NAREN Del Real on 09-04-2024 Calcium [Mass/Vol] 8.8 mg/dL 8.5-10.1 [facility] Serum or plasma creatinine m easurement (mass/volume)Ordered By: NAREN Del Real on 09-04-2024 Creatinine [Mass/Vol] 0.81 mg/dL Normal 0.55-1.02 [facility] Comment on above: The validity of the calculated GFR & GFRAA in patients over 70 years has not been determined. Clinical correlation is essential. Order Comment: ROVER TENDER.LR UFENER ORDERED QTFNALL OTHER LAB ROVER TENDER.CGRAHAM1 Result Comment: The validity of the calculated GFR GFRAA in patients over 70 years has not been determined. Clinical correlation is essential. Performed By: #### M 100.2400, #### [facility] [address] [place], [address] Serum or plasma urea nitroge n measurement (mass/volume)Ordered By: NAREN Del Real on 09-04-2024 Urea nitrogen [Mass/Vol] 9 mg/dL Normal 7-18 [facility] Comment on above: Order Comment: ROVER TENDER.LR UFENER ORDERED QTFNALL OTHER LAB ROVER TENDER.CGRAHAM1 Performed By: #### M 100.2400, #### [facility] [address] [facility] [place], [place], [address] Sodium levelOrdered By: NAREN eDl Real on 09-04-2024 Sodium [Moles/Vol] 140 mmol/L Normal 136-145 [facility] Comment on above: Order Comment: ROVER TENDER.LR UFENER ORDERED QTFNALL OTHER LAB ROVER TENDER.CGRAHAM1 Performed By: #### M 100.2400, #### [facility] [address] [facility] [place], [place], [address] Total proteinOrdered By: NAREN Del Real on 09-04-2024 Protein [Mass/Vol] 6.8 g/dL 6.4-8.2 [facility] White blood cell (WBC) count Ordered By: NAREN Del Real on 09-04-2024 WBC (Bld) [#/Vol] 7.8 10*3/uL Normal 4.4-11.0 [facility] Comment on above: Order Comment: ROVER TENDER.LR UFENER ORDERED QTFN ALL OTHER LAB ROVER TENDER.CGRAHAM Performed By: #### L 500.2500, L100.0100, L504.2610, L3100.5140, L100.9950, L3300.0700, L501.6710, L500.3400, L3400.8000 #### [facility] [address] [place], [place], [address] PET/CT Tumor Base -Thigh Ini ton 09-03-2024 PET/CT Tumor Base -Thigh Init [facility] [address] [place] [address] PET/CT Tumor Base -Thigh Init MR#: [id number] Acct: [id number] Name: OFE GIMENEZ Rep #: [id number] : 1975 F 49 From: Umberto Phillips PCP: Dr. Yarelis Fitzpatrick, DO Status: REG CLI Study: PET/CT Tumor Base -Thigh Init Date of Exam: Exam# [id number] Ordering Dr: Patience Del Real ROVER TENDER- C [id number] EXAMINATION: FDG-PET/CT ? INDICATIONS: 49-year-old female with [...] this report are calculated using the exclusive [employer]. (U.S. Patent No. [phone] [place] patent [phone]). Standardization and correction of the FDG SUV metric via [employer] technology allow for vendor non-specific objective quantitative examination comparison and optimization of the sensitivity and specificity of the FDG PET-CT examination. [email or web address] Electronically Signed: Umberto Jones DO at 21:14 EST , CC: Dr. Yarelis Fitzpatrick DO; Patience Del Real NP Veneer Marker: Signed Normal [facility] Pulmonary Visit Reporton Pulmonary Visit Report [facility] [address] [place] [address] OFFICE VISIT Date of Service: 08/30/24 MR#: [id number] Acct: [id number] Name: OFE GIMENEZ Rep #: [id number] : 1975 Provider: Patience Del Real NP Age/Sex: 49/F Location: [facility].PMW Status: Signed Assessment and [...] chest tigh (more content not included)... Normal [facility] Chest WITH Contraston 2024 Chest WITH Contrast [facility] [address] [place] [address] Chest WITH Contrast MR#: [id number] Acct: [id number] Name: OFE GIMENEZ Rep #: [id number] : 1975 F 49 From: Kalpana flowers MD PCP: Dr. Yarelis Fitzpatrick, DO Status: REG CLI Study: Chest WITH Contrast Date of Exam: 08/28/24 Exam# [id number] Ordering Dr: Kimberly Jacobson ROVER TENDER-C [id number] HISTORY: Hilar mass, pleural effusion, cxr 08/27 [...] CC: DARRYN Jacobson; Dr. Yarelis Fitzpatrick DO Veneer Marker: Signed Normal [facility] Absolute lymphocyte countOrd ered By: Kimberly Jacobson on 08-27-2024 Lymphocytes Auto (Unsp spec) [#/Vol] 2.69 10*3/uL 0.83-4.51 [facility] Absolute neutrophil countOrd ered By: Kimberly Jacobson on 08-27-2024 Neutrophils (Bld) [#/Vol] 17.4 10*3/uL High 2.0-7.7 [facility] Albumin to globulin ratioOrd ered By: Kimberly Jacobson on 08-27-2024 Albumin/Globulin [Mass ratio] 0.8 {ratio} Low 0.9-2.4 [facility] Bilirubin, totalOrdered By: Kimberly Jacobson on 08-27-2024 Bilirubin [Mass/Vol] 0.40 mg/dL 0.20-1.00 [facility] Comment on above: For patients on eltr ombopag therapy, use of Dimension [place] TBIL is not recommended. Blood band neutrophil count as percentage of total leukocytesOrdered By: Kimberly Jacobson on 08-27-2024 Band form neutrophils/100 WBC (Bld) 1 % 0-5 [facility] Blood lymphocytes/100 leukoc ytesOrdered By: Kimberly Jacobson on 08-27-2024 Lymphocytes/100 WBC (Bld) 13 % Low 19-41 [facility] Blood monocytes/100 leukocyt esOrdered By: Kimberly Jacobson on 08-27-2024 Monocytes/100 WBC (Bld) 3 % 0-10 [facility] Blood segmented neutrophils/ 100 leukocytesOrdered By: Kimberlyzoë Jacobson on 08-27-2024 Segmented neutrophils/100 WBC (Bld) 83 % High 47-70 [facility] Blood urea nitrogen (BUN)/cr eatinine ratioOrdered By: Kimberyl Jacobson on 08-27-2024 Urea nitrogen/Creatinine [Mass ratio] 16.1 mg/mg 10-20 [facility] C-reactive protein measureme nt by high sensitivity methodOrdered By: Kimberly Jacobson on 08-27-2024 C-Reactive Protein Extended Range 52.60 mg/L High 0.0-3.0 [facility] Comment on above: C-Reactive Protein ( CRP) provides useful information for thediagnosis, therapy and monitoring of inflammatory processesand associated diseases. For the evaluation of Relative Riskfor Cardiovascular Disease, a High Sensitivity CRP (HSCRP)should be ordered. C-reactive protein measurement by high sensitivity method 52.60 mg/L High 0.0-3.0 [facility] Comment on above: C-Reactive Protein ( CRP) provides useful information for thediagnosis, therapy and monitoring of inflammatory processesand associated diseases. For the evaluation of Relative Riskfor Cardiovascular Disease, a High Sensitivity CRP (HSCRP)should be ordered. CBC W/Diff, Automatedon Absolute Lymph 2.69 X10 3/uL Normal 0.83-4.51 [facility] Comment on above: Performed By: #### M 100.2400, M100.1999 #### [facility] [address] [place], [place], [address] Absolute Neut 17.4 X10 3/uL High 2.0-7.7 [facility] Comment on above: Performed By: #### M 100.2400, M1.1999 #### [facility] [address] [place], [place], [address] CRPon 08-27-2024 C-REACTIVE PROT 52.60 mg/L High 0.0-3.0 [facility] Comment on above: Result Comment: C-Re active Protein (CRP) provides useful information for the diagnosis, therapy and monitoring of inflammatory processes and associated diseases. For the evaluation of Relative Risk for Cardiovascular Disease, a High Sensitivity CRP (HSCRP) should be ordered. Performed By: #### M 100.2400, M100.1999 #### [facility] [address] [facility] [place], [place], [address] Carbon dioxide measurementOr dered By: Kimberly Jacobson on 08-27-2024 CO2 [Moles/Vol] 28.0 mmol/L 21.0-32.0 [facility] Cells counted Molgen (Bld/Ti ss) [#]Ordered By: Kimberly Jacobson on 08-27-2024 Differential Total Cells Counted 100 MANUAL DIFF [facility] Chest PA and Lateralon 08-27 Chest PA and Lateral [facility] [address] [place] [address] Chest PA and Lateral MR#: [id number] Acct: [id number] Name: OFE GIMENEZ Rep #: [id number] : 1975 F 49 From: Jose Lyman MD PCP: Dr. Yarelis Fitzpatrick, DO Status: DEP AMB Study: Chest PA and Lateral Date of Exam: 08/27/24 Exam# [id number] Ordering Dr: Kimberly Jacobson ROVER TENDER-C [id number] EXAM: XR CHEST, 2 VIEWS CLINICAL INDICATION: [...] , CC: DARRYN Jacobson; Dr. Yarelis Fitzpatrick, Veneer Marker: Signed Normal [facility] Chloride measurementOrdered By: Kimberly Jacobson on 08-27-2024 Chloride [Moles/Vol] 104 mmol/L 98-107 [facility] Comprehensive Metabolic Prof ilon 08-27-2024 Albumin [Mass/Vol] 3.4 g/dL Normal 3.2-5.0 [facility] Comment on above: Performed By: #### M 100.2400, #### [facility] [address] [facility] [place], [address] Albumin/Globulin [Mass ratio] 0.8 {ratio} Low 0.9-2.4 [facility] Comment on above: Performed By: #### M 100.2400, #### [facility] [address] [facility] [place], [address] ALK P 131 U/L High 45-117 [facility] Comment on above: Performed By: #### M 100.2400, #### [facility] [address] [facility] [place], [address] ALT [Catalytic activity/Vol] 82 U/L High 13-56 [facility] Comment on above: Performed By: #### M 100.2400, #### [facility] [address] [place], [address] AST [Catalytic activity/Vol] 74 U/L High 15-37 [facility] Comment on above: Performed By: #### M .2399, #### [facility] [address] [place], [address] Bilirubin [Mass/Vol] 0.40 mg/dL Normal 0.20-1.00 [facility] Comment on above: Result Comment: For patients on eltrombopag therapy, use of Dimension [place] TBIL is not recommended. Performed By: #### M , #### [facility] [address] [place], [address] BUN/CRE 16.1 RATIO Normal 10-20 [facility] Comment on above: Performed By: #### M , #### [facility] [address] [place], [address] CA,Total 9.1 mg/dL Normal 8.5-10.1 [facility] Comment on above: Performed By: #### M , #### [facility] [address] [place], [address] Chloride [Moles/Vol] 104 mmol/L Normal 98-107 [facility] Comment on above: Performed By: #### M , #### [facility] [address] [place], [address] CO2 [Moles/Vol] 28.0 mmol/L Normal 21.0-32.0 [facility] Comment on above: Performed By: #### M 240, #### [facility] [address] [place], [address] Creatinine [Mass/Vol] 0.68 mg/dL Normal 0.55-1.02 [facility] Comment on above: Result Comment: The validity of the calculated GFR GFRAA in patients over 70 years has not been determined. Clinical correlation is essential. Performed By: #### M 100.2400, #### [facility] [address] [place], [address] EST GFR - AA 117 mL/min Normal >60 [facility] Comment on above: Result Comment: Afri can Cymraes GFR Calc Performed By: #### M 100.2400, #### [facility] [address] [place], [address] GAP 4 Low 5-15 [facility] Comment on above: Performed By: #### M 100.2400, #### [facility] [address] [place], [address] GFR/1.73 sq M.predicted among non-blacks MDRD (S/P/Bld) [Vol rate/Area] 96 mL/min/{1.73_m2} Normal >60 [facility] Comment on above: Result Comment: Non- GFR Calc Performed By: #### M 100.240, #### [facility] [address] [place], [address] Globulin (S) [Mass/Vol] 4.0 g/dL Normal 2.2-4.2 [facility] Comment on above: Performed By: #### M 100.2400, #### [facility] [address] [place], [address] Glucose [Mass/Vol] 129 mg/dL High 74-106 [facility] Comment on above: Result Comment: Fast ing Glucose result greater than or equal to 126 mg/dL suggests DIABETES MELLITUS per A.D.A. criteria. Performed By: #### M 100.2400, #### [facility] [address] [place], [address] Potassium [Moles/Vol] 4.1 mmol/L Normal 3.5-5.1 [facility] Comment on above: Performed By: #### M 100.2400, M100.1999 #### [facility] [address] [place], [address] Sodium [Moles/Vol] 136 mmol/L Normal 136-145 [facility] Comment on above: Performed By: #### M 100.2400, M1.1999 #### [facility] [address] [place], [address] T PROT 7.4 g/dL Normal 6.4-8.2 [facility] Comment on above: Performed By: #### M 100.2400, .1999 #### [facility] [address] [place], [address] Urea nitrogen [Mass/Vol] 11 mg/dL Normal 7-18 [facility] Comment on above: Performed By: #### M 100.2400, M1.1999 #### [facility] [address] [place], [address] Erythrocyte Sed Rateon 08-27 SED RATE 4 mm/hr Normal 0-30 [facility] Comment on above: Performed By: #### M 100.2400, .1999 #### [facility] [address] [place], [address] Erythrocyte distribution wid th ratioOrdered By: Kimberly Jacobson on 08-27-2024 Erythrocyte distribution width (RBC) [Ratio] 14.0 % 11.6-14.6 [facility] Erythrocyte distribution wid th standard deviationOrdered By: Kimberly Jacobson on 08-27-2024 Erythrocyte distribution width (RBC) [Entitic vol] 42.5 fL 35.1-43.9 [facility] Erythrocyte distribution width (RBC) [Ratio] 42.5 fl 35.1-43.9 [facility] Erythrocyte morphology asses smentOrdered By: Kimberly Jacobson on 08-27-2024 RBC morphology finding Nom (Bld) NORM C+C NORMAL NORM C&C [facility] Erythrocyte sedimentation ra teOrdered By: Kimberly Jacobson on 08-27-2024 ESR (Bld) [Velocity] 4 mm/h 0-30 [facility] Estimated glomerular filtrat ion rate (GFR) AmericanOrdered By: Kimberly Jacobson on 08-27-2024 Estimated GFR (MDRD) Amer 117 mL/min >60 [facility] Comment on above: GFR Calc Glomerular filtration rate ( GFR) estimationOrdered By: Kimberly Jacobson on 08-27-2024 Estimated GFR (MDRD) Non-Af Amer 96 mL/min >60 [facility] Comment on above: Non- GFR Calc GFR/1.73 sq M.predicted among non-blacks MDRD (S/P/Bld) [Vol rate/Area] 96 mL/min/{1.73_m2} >60 [facility] Comment on above: Non- GFR Calc Glucose measurementOrdered B y: Kimberly Jacobson on 08-27-2024 Glucose [Mass/Vol] 129 mg/dL High 74-106 [facility] Comment on above: Fasting Glucose resu lt greater than or equal to 126 mg/dL suggests DIABETES MELLITUS per A.D.A. criteria. Hematocrit Auto (Bld) [Volum e fraction]Ordered By: Kimberly Jacobson on 08-27-2024 Hematocrit (Bld) [Volume fraction] 41.9 % 37-47 [facility] Hemoglobin measurementOrdere d By: Kimberly Jacobson on 08-27-2024 Hemoglobin (Bld) [Mass/Vol] 13.9 g/dL 12.0-15.0 [facility] - Chemistry and C hemistry - challengeOrdered By: Kimberly Jacobson on 08-27-2024 AST [Catalytic activity/Vol] 74 U/L High 15-37 [facility] Lymphocytes Auto (Unsp spec) [#/Vol]Ordered By: Kimberly Jacobson on 08-27-2024 Lymphocytes (Bld) [#/Vol] 2.69 10*3/uL 0.83-4.51 [facility] MCV (mean corpuscular volume ) determinationOrdered By: Kimberly Jacobson on 08-27-2024 MCV (RBC) [Entitic vol] 83.3 fL 81-99 [facility] Mean corpuscular hemoglobin (MCH) determinationOrdered By: Kimberly Jacobson on 08-27-2024 MCH (RBC) [Entitic mass] 27.6 pg 27.0-32.0 [facility] Mean corpuscular hemoglobin concentration (MCHC) determinationOrdered By: Kimberly Jacobson on 08-27-2024 MCHC (RBC) [Mass/Vol] 33.2 g/dL 32-36 [facility] Mean platelet volume determi nationOrdered By: Kimberly Jacobson on 08-27-2024 Platelet mean volume (Bld) [Entitic vol] 10.0 fL 6.2-12.0 [facility] Neutrophil percentageOrdered By: Kimberly Jacobson on 08-27-2024 Neutrophils (%) (Auto) Not Reportable [facility] Platelet countOrdered By: Therese Jacobson on 08-27-2024 Platelets (Bld) [#/Vol] 427 10*3/uL 150-450 [facility] Platelet estimateOrdered By: Kimberly Jacobson on 08-27-2024 Platelets LM Ql (Bld) ADEQUATE ADEQ [facility] Platelets LM Ql (Bld)Ordered By: Kimberly Jacobson on 08-27-2024 Platelet Estimate ADEQUATE [facility] Potassium measurementOrdered By: Kimberly Jacobson on 08-27-2024 Potassium [Moles/Vol] 4.1 mmol/L 3.5-5.1 [facility] RBC Auto (Bld) [#/Vol]Ordere d By: Kimberly Jacobson on 08-27-2024 RBC (Bld) [#/Vol] 5.03 10*6/uL 4.2-5.4 [facility] RBC morphology finding Nom ( Bld)Ordered By: Kimberly Jacobson on 08-27-2024 Red Blood Cell Morphology NORM C+C NORMAL NORM C&C [facility] Reactive lymphocyte countOrd ered By: Kimberly Jacobson on 08-27-2024 Reactive Lymphocytes 1+ [facility] Segmented neutrophils/100 WB C (Bld)Ordered By: Kimberly Jacobson on 08-27-2024 Neutrophils/100 WBC (Bld) 83 % High 47-70 [facility] Serum anion gap measurementO rdered By: Kimberly Jacobson on 08-27-2024 Anion gap [Moles/Vol] 4 mmol/L Low 5-15 [facility] Serum globulin measurementOr dered By: Kimberly Jacobson on 08-27-2024 Globulin (S) [Mass/Vol] 4.0 g/dL 2.2-4.2 [facility] Serum or plasma alanine ruby otransferase (ALT) measurementOrdered By: Kimberly Jacobson on 08-27-2024 ALT [Catalytic activity/Vol] 82 U/L High 13-56 [facility] Serum or plasma albumin sanford urement (mass/volume)Ordered By: Kimberly Jacobson on 08-27-2024 Albumin [Mass/Vol] 3.4 g/dL 3.2-5.0 [facility] Serum or plasma alkaline neftali sphatase measurementOrdered By: Kimberly Jacobson on 08-27-2024 ALP [Catalytic activity/Vol] 131 U/L High 45-117 [facility] Serum or plasma calcium sanford urement (mass/volume)Ordered By: Kimberly Jacobson on 08-27-2024 Calcium [Mass/Vol] 9.1 mg/dL 8.5-10.1 [facility] Serum or plasma creatinine m easurement (mass/volume)Ordered By: Kimberly Jacobson on 08-27-2024 Creatinine [Mass/Vol] 0.68 mg/dL 0.55-1.02 [facility] Comment on above: The validity of the calculated GFR & GFRAA in patients over 70 years has not been determined. Clinical correlation is essential. Serum or plasma urea nitroge n measurement (mass/volume)Ordered By: Kimberly Jacobson on 08-27-2024 Urea nitrogen [Mass/Vol] 11 mg/dL 7-18 [facility] Sodium levelOrdered By: Maureen Jacobson on 08-27-2024 Sodium [Moles/Vol] 136 mmol/L 136-145 [facility] Total cell countOrdered By: Kimberly Jacobson on 08-27-2024 Cells counted Molgen (Bld/Tiss) [#] 100 MANUAL DIFF [facility] Total proteinOrdered By: Shar Jacobson on 08-27-2024 Protein [Mass/Vol] 7.4 g/dL 6.4-8.2 [facility] Toxic granules LM Ql (Bld)Or dered By: Kimberly Jacobson on 08-27-2024 Toxic Granulation RARE [facility] Toxic leukocyte granulation detectionOrdered By: Kimberly Jacobson on 08-27-2024 Toxic granules LM Ql (Bld) [facility] White blood cell (WBC) count Ordered By: Kimberly Jacobson on 08-27-2024 WBC (Bld) [#/Vol] 20.7 10*3/uL High 4.4-11.0 [facility] IMMUNOGLOBULIN Dilip Immunoglobulin G 1017 mg/dL Normal 578-1228 [facility] Comment on above: Order Comment: Relea se to patient->Automatic Performed By: #### 2 600 #### OFE Lindsay ([id number]) [facility] ([facility]) [address] Immunoglobulin GOrdered By: Background Lab on 2024 IgG [Mass/Vol] 1017 mg/dL 578 - 1228 mg/dL [facility] Interpretation and review of laboratory results Normal [facility] Progress Noteon 2024 Financial Aid Manager Authentication Interface Message Text Ofe is a 49 y.o. female who presents to our office today for a follow up visit. She was last seen on 12/18/23 and before this on 07/07/23 and she was seen initially on 02/09/23 for evaluation secondary to concerns from her PCP Dr. Yarelis Fitzpatrick (see referral in Epic). Ofe used to be followed by Dr. Tarango (Ict Account Manager) for lung nodules and she had been [...] Fitzpatrick she was to see Dr. Meeks (Ict Account Manager in [place]) and she has done this once and [...] was tolerated. -Due to her seeing a Ict Account Manager (Dr. Meeks), I held off on spirometry [...] 07/07/23. She says her spirometry with her Ict Account Manager was normal and she did not have [...] age 23. Special Needs: None Preferred Language: Botswanan Pets: Yes: 1 dog. School/Daycare: No, she [...] tolerated. Respirator (more content not included)... Normal [facility] Progress Noteon 12-18-2023 Financial Aid Manager Authentication Interface Message Text Ofe is a 48 y.o. female who presents to our office today for a follow up visit. She was last seen on 07/07/23 and she was seen initially on 02/09/23 for evaluation secondary to concerns from her PCP Dr. Yarelis Fitzpatrick (see referral in Epic). Ofe used to be followed by Dr. Tarango (Ict Account Manager) for lung nodules and she had been [...] Fitzpatrick she was to see Dr. Meeks (Ict Account Manager in [place]) and she has done this once and [...] was tolerated. -Due to her seeing a Ict Account Manager (Dr. Meeks), I held off on spirometry at her initial visit and food and environmental allergen testing did not appear to be indicated and this was discussed with her. At her initial visit, I ordered IgG, IgA, IgM and IgE levels, lymphocyte profile, tetanus titer, pneumococcal titers, HIV and Mitogen studies (3460) and on 02/13/23, IgG-242, IgA <5, IgM-23 [...] she has not followed up with her python web developer as yet and overall she feels better [...] age 23. Special Needs: None Preferred Language: Botswanan Pets: Yes: 1 dog. School/Daycare: No, she [...] problems. Hematologic/l (more content not included)... Normal [facility] HIV 1&2 Ag and Ab Screenon 0 02-13-2023 HIV 1&2 Ag and Ab Screen Non-Reactive [facility] Comment on above: Reference value: Non -reactive Non-reactive result does not rule out HIV infection. If exposure to HIV infection occurred <14 days ago, contact the laboratory to request the addition of HIV-1 RNA detection/quantification test to [facility] (HIVQN). Release to patient->Automatic Reason for preventing automatic release->Other Release to patient->Manual release only [facility] Immunoglobulin A,G,M,Marino Immunoglobulin A <5 Low 59 - 337 mg/dL [facility] Immunoglobulin E <1 [facility] Immunoglobulin G 242 mg/dL Low 578 - 1228 mg/dL [facility] Immunoglobulin M 23 mg/dL 23 - 166 mg/dL [facility] Interpretation and review of laboratory results Abnormal [facility] Release to patient->Automatic Reason for preventing automatic release->Other Release to patient->Manual release only [facility] Microbial respiratory cultur eOrdered By: Dr. Meeks on 01-26-2023 Bacteria identified Respiratory culture Nom (Unsp spec) or Staphylococcus aureus isolated. [facility] Gram stain for investigation of transfusion reactionOrdered By: Dr. Meeks on 01-24-2023 Microscopic observation Gram stain Nom (Unsp spec) [facility] CBC W/AUTO DIFF WBC (23526)O rdered By: Title I Assistant on 12-16-2022 Basophils (Bld) [#/Vol] 0.1 10*3/uL Normal 0.0-0.2 [facility] Work Phone: Comment on above: PATIENT WAS FASTINGP ERFORMED BY: CB [facility] Ryffhf6192 Angel RoadCape Fear [facility] Hospitalin [place] [id number] BY: [address] [id number] Basophils/100 WBC (Bld) 0 % Normal [facility]; [facility] Work Phone: Comment on above: PATIENT WAS FASTINGP ERFORMED BY: CB [facility] [id number] [facility] [id number] BY: [address] [id number] Eosinophils (Bld) [#/Vol] 0.1 10*3/uL Normal 0.0-0.4 [facility]; [facility] Work Phone: Comment on above: PATIENT WAS FASTINGP ERFORMED BY: CB [facility] [id number] [facility] [id number] BY: [address] [id number] Eosinophils/100 WBC (Bld) 1 % Normal [facility]; [facility] Work Phone: Comment on above: PATIENT WAS FASTINGP ERFORMED BY: [facility] [id number] [facility] [id number] BY: [address] [id number] Erythrocyte distribution width (RBC) [Ratio] 14.2 % Normal 11.7-15.4 [facility]; [facility] Work Phone: Comment on above: PATIENT WAS FASTINGP ERFORMED BY: CB [facility] [id number] [facility] [id number] BY: [address] [id number] Hematocrit (Bld) [Volume fraction] 42.6 % Normal 34.0-46.6 [facility]; [facility] Work Phone: Comment on above: PATIENT WAS FASTINGP ERFORMED BY: [facility] [id number] [facility] [id number] BY: [address] [id number] Hemoglobin (Bld) [Mass/Vol] 14.3 g/dL Normal 11.1-15.9 [facility] Work Phone: Comment on above: PATIENT WAS FASTINGP ERFORMED BY: ANGELINE [facility] Ammafy2123 [facility] [id number] BY: [address] [id number] Immature granulocytes (Bld) [#/Vol] 0.0 10*3/uL Normal 0.0-0.1 [facility] Work Phone: Comment on above: PATIENT WAS FASTINGP ERFORMED BY: [facility] Kzckyy8150 [facility] [id number] BY: [address] [id number] Immature granulocytes/100 WBC (Bld) 0 % Normal [facility]; [facility] Work Phone: Comment on above: PATIENT WAS FASTINGP ERFORMED BY: [facility] Lkhgpi1210 [facility] [id number] BY: [facility] [id number] Lymphocytes (Bld) [#/Vol] 2.9 10*3/uL Normal 0.7-3.1 [facility]; [facility] Work Phone: Comment on above: PATIENT WAS FASTINGP ERFORMED BY: [facility] Kybfyf4913 [facility] [id number] BY: [address] [id number] Lymphocytes/100 WBC (Bld) 18 % Normal [facility]; [facility] Work Phone: Comment on above: PATIENT WAS FASTINGP ERFORMED BY: ANGELINE [facility] [id number] [facility] [id number] BY: [address] [id number] MCH (RBC) [Entitic mass] 27.1 pg Normal 26.6-33.0 [facility]; [facility] Work Phone: Comment on above: PATIENT WAS FASTINGP ERFORMED BY: ANGELINE [facility] Wucmbh3985 [facility] [id number] BY: [address] [id number] MCHC (RBC) [Mass/Vol] 33.6 g/dL Normal 31.5-35.7 [facility] prehensive [facility]; [facility] Work Phone: Comment on above: PATIENT WAS FASTINGP ERFORMED BY: ANGELINE [facility] [id number] [facility] [id number] BY: [address] [id number] MCV (RBC) [Entitic vol] 81 fL Normal 79-97 [facility]; [facility] Work Phone: Comment on above: PATIENT WAS FASTINGP ERFORMED BY: [facility] Fweqhl7482 [facility] [id number] BY: [address] [id number] Monocytes (Bld) [#/Vol] 0.9 10*3/uL Normal 0.1-0.9 [facility]; [facility] Work Phone: Comment on above: PATIENT WAS FASTINGP ERFORMED BY: [facility] Najyfu9470 [facility] [id number] BY: [address] [id number] Monocytes/100 WBC (Bld) 6 % Normal [facility]; [facility] Work Phone: Comment on above: PATIENT WAS FASTINGP ERFORMED BY: ANGELINE [facility] [id number] [facility] [id number] BY: [facility] [address] [id number] Neutrophils (Bld) [#/Vol] 11.8 10*3/uL Abnormal 1.4-7.0 [facility]; [facility] Work Phone: Comment on above: PATIENT WAS FASTINGP ERFORMED BY: CB [facility] Pemgti3728 [facility] [id number] BY: [facility] [address] [id number] Neutrophils/100 WBC (Bld) 75 % Normal [facility]; [facility] Work Phone: Comment on above: PATIENT WAS FASTINGP ERFORMED BY: ANGELINE [facility] [id number] [facility] [id number] BY: [facility] [address] [id number] Platelets (Bld) [#/Vol] 522 10*3/uL Abnormal 150-450 [facility]; [facility] Work Phone: Comment on above: PATIENT WAS FASTINGP ERFORMED BY: ANGELINE [facility] Rnbwbt2465 [facility] [id number] BY: [facility] [address] [id number] RBC (Bld) [#/Vol] 5.28 10*6/uL Normal 3.77-5.28 [facility]pr [facility]; [facility] Work Phone: Comment on above: PATIENT WAS FASTINGP ERFORMED BY: CB [facility] Ctrfdv3615 [facility] [id number] BY: [facility] [address] [id number] WBC (Bld) [#/Vol] 15.8 10*3/uL Abnormal 3.4-10.8 [facility]pr [facility]; [facility] Work Phone: Comment on above: PATIENT WAS FASTINGP ERFORMED BY: ANGELINE [facility] Asxrie2453 [facility] [id number] BY: [employer] [id number] Ferritin ([id number])Ordered By: Title I Assistant on 12-16-2022 Ferritin [Mass/Vol] 98 ng/mL Normal 15-150 [facility] Work Phone: Comment on above: PATIENT WAS FASTINGP ERFORMED BY: ANGELINE [facility] [id number] [facility] [id number] BY: [employer] [id number] Immunoglobulins, Quantitativ e, IgA,IgE, IgG, IgM (93280)Ordered By: Title I Assistant on 12-16-2022 IgA [Mass/Vol] mg/dL Abnormal 87-352 [facility]; [facility] Work Phone: Comment on above: Result confirmed on concentration. PATIENT WAS FASTINGP ERFORMED BY: ANGELINE [facility] Plrhrx9082 [facility] [id number] BY: [employer] [id number] IgE Qn [IU]/L Abnormal 6-495 [facility]; [facility] Work Phone: Comment on above: PATIENT WAS FASTINGP ERFORMED BY: LabCorent Technologyrp Eazlaa8753 [facility] [id number] BY: [employer] [address] [id number] IgG [Mass/Vol] 307 mg/dL Abnormal 586-1602 [facility]; [facility] Work Phone: Comment on above: PATIENT WAS FASTINGP ERFORMED BY: [facility] Aysrsv8082 [facility] [id number] BY: [address] [place] [id number] IgM [Mass/Vol] 30 mg/dL Normal 26-217 [facility]; [facility] Work Phone: Comment on above: PATIENT WAS FASTINGP ERFORMED BY: CB [facility] Upaoqv6064 Angel RoadDublin [place] [id number] BY: [address] [id number] Iron Binding Capacity (TIBC) (62532)Ordered By: Title I Assistant on 12-16-2022 Iron [Mass/Vol] 19 ug/dL Abnormal 27-159 Comprehen sive [facility]; [facility] Work Phone: Comment on above: PATIENT WAS FASTINGP ERFORMED BY: CB [facility] Kjuzxg3277 Angel RoadDuin [place] [id number] BY: [address] [id number] Iron binding capacity [Mass/Vol] 263 ug/dL Normal 250-450 [facility]; [facility] Work Phone: Comment on above: PATIENT WAS FASTINGP ERFORMED BY: CB [facility] Qrkkvz0373 Angel RoadDublin [place] [id number] BY: [address] [id number] Iron binding capacity.unsaturated [Mass/Vol] 244 ug/dL Normal 131-425 [facility]; [facility] Work Phone: Comment on above: PATIENT WAS FASTINGP ERFORMED BY: CB [facility] Esjopf0401 Angel RoadDublin [place] [id number] BY: [address] [id number] Iron saturation [Mass fraction] 7 % Abnormal 15-55 [facility]; [facility] Work Phone: Comment on above: PATIENT WAS FASTINGP ERFORMED BY: CB [facility] Qdyveq3550 Angel RoadDublin [place] [id number] BY: [address] [id number] LDH (LD) (LACTATE DEHYDROGEN ASE) ([id number])Ordered By: Title I Assistant on 12-16-2022 LDH [Catalytic activity/Vol] 175 U/L Normal 119-226 [facility]; [facility] Work Phone: Comment on above: PATIENT WAS FASTINGP ERFORMED BY: [facility] Tmbitz2317 [facility] [id number] BY: Interviu [address] [id number] METABOLIC PANEL, COMPREHENSI VE ([id number])Ordered By: Title I Assistant on 12-16-2022 Albumin [Mass/Vol] 4.7 g/dL Normal 3.8-4.8 [facility]; [facility] Work Phone: Comment on above: PATIENT WAS FASTINGP ERFORMED BY: [facility] Gollbb2461 [facility] [id number] BY: Intervi[address] [id number] Albumin/Globulin [Mass ratio] 2.9 {ratio} Abnormal 1.2-2.2 [facility]; [facility] Work Phone: Comment on above: PATIENT WAS FASTINGP ERFORMED BY: LabCorent Technologyrp Snyvta5795 [facility] [id number] BY: PowerPractical[address] [id number] ALP [Catalytic activity/Vol] 116 U/L Normal 44-121 [facility]; [facility] Work Phone: Comment on above: PATIENT WAS FASTINGP ERFORMED BY: [employer] [facility] Bjtjpe1934 [facility] [id number] BY: [address] [id number] ALT [Catalytic activity/Vol] 17 U/L Normal 0-32 [facility]; [facility] Work Phone: Comment on above: PATIENT WAS FASTINGP ERFORMED BY: ANGELINE [facility] Jemgxg1277 Angel RoadDublin [place] [id number] BY: [address] [id number] AST [Catalytic activity/Vol] 19 U/L Normal 0-40 [facility]; [facility] Work Phone: Comment on above: PATIENT WAS FASTINGP ERFORMED BY: ANGELINE [facility] Sehduv5035 Angel Roadblin [place] [id number] BY: [address] [id number] Bilirubin [Mass/Vol] 0.5 mg/dL Normal 0.0-1.2 Comp rehensive [facility]; [facility] Work Phone: Comment on above: PATIENT WAS FASTINGP ERFORMED BY: ANGELINE [facility] Ufksaf9901 [facility] RoadAt[facility] [id number] BY: [address] [id number] Calcium [Mass/Vol] 9.5 mg/dL Normal 8.7-10.2 [facility]; [facility] Work Phone: Comment on above: PATIENT WAS FASTINGP ERFORMED BY: ANGELINE [facility] Epvcrj5871 Angel RoadDublin [place] [id number] BY: [address] [id number] Chloride [Moles/Vol] 102 mmol/L Normal 96-106 Comp rehensive [facility]; [facility] Work Phone: Comment on above: PATIENT WAS FASTINGP ERFORMED BY: ANGELINE [facility] Gnlciv1761 Angel RoadDuin [place] [id number] BY: [address] [id number] CO2 [Moles/Vol] 23 mmol/L Normal 20-29 [facility]; [facility] Work Phone: Comment on above: PATIENT WAS FASTINGP ERFORMED BY: [facility] Cgzsoe0996 Angel RoadDuAmerican Healthcare Systems [id number] BY: PowerPractical[address] [id number] Creatinine [Mass/Vol] 0.71 mg/dL Normal 0.57-1.00 [facility] prehensive Internal Medicine; [facility] Work Phone: Comment on above: PATIENT WAS FASTINGP ERFORMED BY: PowerPracticalDeborah Heart and Lung CenterWapzcn6641 [facility] [id number] BY: PowerPractical[address] [id number] GFR/1.73 sq M.predicted among non-blacks MDRD (S/P/Bld) [Vol rate/Area] 104 mL/min/{1.73_m2} Normal Comprehensi [facility]; [facility] Work Phone: Comment on above: PATIENT WAS FASTINGP ERFORMED BY: [employer] Wmbmds9021 [facility] [id number] BY: PowerPractical[address] [id number] Globulin (S) [Mass/Vol] 1.6 g/dL Normal 1.5-4.5 [facility]; [facility] Work Phone: Comment on above: PATIENT WAS FASTINGP ERFORMED BY: [employer] Xuzmwo7902 [facility] [id number] BY: PowerPractical[address] [id number] Glucose [Mass/Vol] 89 mg/dL Normal 70-99 [facility] Internal [facility]; [facility] Work Phone: Comment on above: PATIENT WAS FASTINGP ERFORMED BY: PowerPracticalDeborah Heart and Lung CenterJrjxgj6157 [facility] [id number] BY: PowerPractical[address] [id number] Potassium [Moles/Vol] 4.5 mmol/L Normal 3.5-5.2 [facility]; [facility] Work Phone: Comment on above: PATIENT WAS FASTINGP ERFORMED BY: CB [facility] Qotyss0240 [address] [facility] [id number] BY: [address] [id number] Protein [Mass/Vol] 6.3 g/dL Normal 6.0-8.5 [facility]; [facility] Work Phone: Comment on above: PATIENT WAS FASTINGP ERFORMED BY: CB [facility] Dsmmvh7903 [address] [facility] [id number] BY: [address] [id number] Sodium [Moles/Vol] 142 mmol/L Normal 134-144 [facility]; [facility] Work Phone: Comment on above: PATIENT WAS FASTINGP ERFORMED BY: CB [facility] Rsoglq6554 [address] [facility] [id number] BY: Labco[address] [id number] Urea nitrogen [Mass/Vol] 9 mg/dL Normal 6-24 [facility]; [facility] Work Phone: Comment on above: PATIENT WAS FASTINGP ERFORMED BY: CB [facility] Fyamjp0485 [address] [facility] [id number] BY: [address] [id number] Urea nitrogen/Creatinine [Mass ratio] 13 mg/mg Normal 9-23 [facility]; [facility] Work Phone: Comment on above: PATIENT WAS FASTINGP ERFORMED BY: CB [facility] Qpdyns0808 [address] [facility] [id number] BY: [address] [id number] RETICULOCYTE COUNT ([id number])Or dered By: Title I Assistant on 12-16-2022 Reticulocytes/100 RBC (Bld) 0.7 % Normal 0.6-2.6 [facility]; [facility] Work Phone: Comment on above: PATIENT WAS FASTINGP ERFORMED BY: CB [facility] Rihneb6048 [address] [facility] [id number] BY: Labco[address] [id number] SPEP ([id number])Ordered By: Syst em Crew Supervisor on 12-16-2022 Albumin [Mass/Vol] 4.1 g/dL Normal 2.9-4.4 [facility]; [facility] Work Phone: Comment on above: PATIENT WAS FASTINGP ERFORMED BY: CB [facility] Cjrjpc5856 [facility] [id number] BY: Labco[address] [id number] Albumin/Globulin [Mass ratio] 1.9 {ratio} Abnormal 0.7-1.7 [facility]; [facility] Work Phone: Comment on above: PATIENT WAS FASTINGP ERFORMED BY: CB [facility] Suolot9332 [facility] [id number] BY: [facility] [address] [id number] Alpha 1 globulin Elph [Mass/Vol] 0.3 g/dL Normal 0.0-0.4 [facility]; [facility] Work Phone: Comment on above: PATIENT WAS FASTINGP ERFORMED BY: CB [facility] Rjguen1133 [facility] [id number] BY: [facility] [address] [id number] Alpha 2 globulin Elph [Mass/Vol] 0.8 g/dL Normal 0.4-1.0 [facility]; [facility] Work Phone: Comment on above: PATIENT WAS FASTINGP ERFORMED BY: CB [facility] Dubmmf6635 [address] [facility] [id number] BY: Labco[address] [id number] Beta globulin Elph [Mass/Vol] 0.8 g/dL Normal 0.7-1.3 [facility]; [facility] Work Phone: Comment on above: PATIENT WAS FASTINGP ERFORMED BY: CB [facility] Gthfid9175 [facility] [id number] BY: [address] [id number] Gamma globulin Elph [Mass/Vol] 0.3 g/dL Abnormal 0.4-1.8 [facility]; [facility] Work Phone: Comment on above: PATIENT WAS FASTINGP ERFORMED BY: CB [facility] Dmbaoj6932 [facility] [id number] BY: [address] [id number] Globulin (S) [Mass/Vol] 2.2 g/dL Normal 2.2-3.9 [facility]; [facility] Work Phone: Comment on above: PATIENT WAS FASTINGP ERFORMED BY: [facility] Zalnvp9461 [facility] [id number] BY: PowerPractical[address] [id number] Laboratory comment Dragan (Report) [facility] Normal [facility]; [facility] Work Phone: Comment on above: Protein electrophore sis scan will follow via computer, mail, orcourier delivery. PATIENT WAS FASTINGP ERFORMED BY: CB [facility] Ronzko9955 [facility] [id number] BY: [address] [id number] Laboratory report . Normal Compreh ensive Internal Medicine; [facility] Work Phone: Comment on above: PATIENT WAS FASTINGP ERFORMED BY: CB [facility] Iyiczl1021 [facility] [id number] BY: [address] [id number] Protein.monoclonal Elph [Mass/Vol] Not Observed Normal [facility]; [facility] Work Phone: Comment on above: PATIENT WAS FASTINGP ERFORMED BY: ANGELINE [facility] Urxobc1445 [facility] [id number] BY: [address] [id number] UPEP ([id number])Ordered By: Syst em Crew Supervisor on 12-16-2022 Albumin Elph (U) [Mass fraction] 14.5 % Normal [facility]; [facility] Work Phone: Comment on above: PATIENT WAS FASTINGP ERFORMED BY: [facility] Lgofvh7010 [facility] [id number] BY: [address] [id number] Alpha 1 globulin Elph (U) [Mass fraction] 13.0 % Normal Comprehensiv e [facility]; [facility] Work Phone: Comment on above: PATIENT WAS FASTINGP ERFORMED BY: [facility] Wgbzcw1235 [facility] [id number] BY: [address] [id number] Alpha 2 globulin Elph (U) [Mass fraction] 21.8 % Normal Comprehensiv e [facility]; [facility] Work Phone: Comment on above: PATIENT WAS FASTINGP ERFORMED BY: [facility] Uuppga0963 [facility] [id number] BY: [address] [id number] Beta globulin Elph (U) [Mass fraction] 32.9 % Normal Comprehensiv e [facility]; [facility] Work Phone: Comment on above: PATIENT WAS FASTINGP ERFORMED BY: [facility] Pbbpmw9212 [facility] [id number] BY: [address] [id number] Gamma globulin Elph (U) [Mass fraction] 17.8 % Normal Comprehensiv e [facility]; [facility] Work Phone: Comment on above: PATIENT WAS FASTINGP ERFORMED BY: [facility]70 [facility] [id number] BY: PowerPractical[address] [id number] Protein (U) [Mass/Vol] mg/dL Normal [facility]; [facility] Work Phone: Comment on above: Verified by repeat analysis PATIENT WAS FASTINGP ERFORMED BY: [facility]70 [facility] [id number] BY: PowerPractical[address] [id number] Protein.monoclonal Elph (U) [Mass fraction] Not Observed Normal [facility]; [facility] Work Phone: Comment on above: PATIENT WAS FASTINGP ERFORMED BY: Gig[employer] LabCorent Technologyrp Xpqjsz3890 [facility] [id number] BY: PowerPractical[address] [id number] Vitamin B-12 (cyanocobalamin ) ([id number])Ordered By: Title I Assistant on 12-16-2022 Cobalamin (Vitamin B12) [Mass/Vol] 339 pg/mL Normal 232-1245 [facility]; [facility] Work Phone: Comment on above: PATIENT WAS FASTINGP ERFORMED BY: [employer] LabCorent Technologyrp Qdgmvr0010 [facility] [id number] BY: Interviu [address] [id number] Absolute lymphocyte countOrd ered By: ED PROVIDER on 11-06-2022 Lymphocytes Auto (Unsp spec) [#/Vol] 3.22 10*3/uL 0.83-4.51 [facility] [place] Amorphous sediment detection in urine sediment by light microscopyOrdered By: ED PROVIDER on 11-06-2022 Amorphous sediment LM Ql (Urine sed) 1+ URATE [facility] Basophil percentageOrdered B y: ED PROVIDER on 11-06-2022 Basophil percentage 0 SEEN /hpf 0-5 [facility] Basophils/100 WBC (Bld) 0.5 % 0-1 [facility] Chloride [Moles/Vol] 107 mmol/L 98-107 [facility] Eosinophils/100 WBC (Bld) 0.0 % 0-5 [facility] Glucose [Mass/Vol] 177 mg/dL 74-106 [facility] Comment on above: Fasting Glucose resu lt greater than or equal to 126 mg/dL suggests DIABETES MELLITUS per A.D.A. criteria. Neutrophils (Bld) [#/Vol] 8.5 10*3/uL 2.0-7.7 [facility] [place] Neutrophils/100 WBC (Bld) 66.8 % 47-70 [facility] Potassium [Moles/Vol] 3.6 mmol/L 3.5-5.1 [facility] Sodium [Moles/Vol] 142 mmol/L 136-145 [facility] WBC (Bld) [#/Vol] 12.7 10*3/uL 4.4-11.0 [facility] Beta hCG serum qualOrdered B y: ED PROVIDER on 11-06-2022 Beta HCG ( test) Ql Negative [facility] Bilirubin Test strip Ql (U)O rdered By: ED PROVIDER on 11-06-2022 Bilirubin Ql (U) Negative Negative [facility] Blood erythrocytes count (nu mber/volume)Ordered By: ED PROVIDER on 11-06-2022 RBC (Bld) [#/Vol] 5.24 10*6/uL 4.2-5.4 [facility] Blood hemoglobin measurement (mass/volume)Ordered By: ED PROVIDER on 11-06-2022 Hemoglobin (Bld) [Mass/Vol] 13.9 g/dL 12.0-15.0 [facility] Blood lymphocytes/100 leukoc ytesOrdered By: ED PROVIDER on 11-06-2022 Lymphocytes/100 WBC (Bld) 25.4 % 19-41 [facility] Blood monocytes/100 leukocyt esOrdered By: ED PROVIDER on 11-06-2022 Monocytes/100 WBC (Bld) 6.8 % 0-10 [facility] Blood platelet mean volumeOr dered By: ED PROVIDER on 11-06-2022 Platelet mean volume (Bld) [Entitic vol] 9.2 fL 6.2-12.0 [facility] Determination of erythrocyte mean corpuscular volume (MCV)Ordered By: ED PROVIDER on 11-06-2022 MCV (RBC) [Entitic vol] 83.4 fL 81-99 [facility] [place] Hematocrit Auto (Bld) [Volum e fraction]Ordered By: ED PROVIDER on 11-06-2022 Hematocrit (Bld) [Volume fraction] 43.7 % 37-47 [facility] [place] Ketones Test strip Ql (U)Ord ered By: ED PROVIDER on 11-06-2022 Ketones Ql (U) Negative Negative [facility] [place] Laboratory - Chemistry and C hemistry - challengeOrdered By: ED PROVIDER on 11-06-2022 CO2 [Moles/Vol] 27.0 mmol/L 21.0-32.0 [facility] Urea nitrogen/Creatinine [Mass ratio] 14.5 mg/mg 10-20 [facility] [place] Laboratory - Hematology and Cell countsOrdered By: ED PROVIDER on 11-06-2022 Erythrocyte distribution width (RBC) [Entitic vol] 44.0 fL 35.1-43.9 [facility] [place] Erythrocyte distribution width (RBC) [Ratio] 14.6 % 11.6-14.6 [facility] Immature granulocytes/100 WBC (Bld) 0.500 % 0.0-0.9 [facility] Comment on above: IG% - Immature Granu locytes (promyelocytes, myelocytes and metamyelocytes) > 1% indicates that a LEFT SHIFT is Present. MCH (RBC) [Entitic mass] 26.5 pg 27.0-32.0 [facility] [place] Nucleated RBC/100 WBC (Bld) [Ratio] 0 % 0-5 [facility] MCHC Auto (RBC) [Mass/Vol]Or dered By: ED PROVIDER on 11-06-2022 MCHC (RBC) [Mass/Vol] 31.8 g/dL 32-36 [facility] Mucus LM Ql (Urine sed)Order ed By: ED PROVIDER on 11-06-2022 Mucus Ql (Urine sed) 0 SEEN /hpf [facility] Nitrite Test strip Ql (U)Ord ered By: ED PROVIDER on 11-06-2022 Nitrite Ql (U) Negative Negative [facility] No Panel InformationOrdered By: ED PROVIDER on 11-06-2022 Estimated Creatinine Clearance Calc 83.82 ml/min [facility] [place] Estimated GFR (MDRD) Amer 104 mL/min >60 [facility] [place] Comment on above: GFR Calc Estimated GFR (MDRD) Non-Af Amer 86 mL/min >60 [facility] [place] Comment on above: Non- GFR Calc Platelets bldOrdered By: ED PROVIDER on 11-06-2022 Platelets (Bld) [#/Vol] 502 10*3/uL 150-450 [facility] Protein Test strip Ql (U)Ord ered By: ED PROVIDER on 11-06-2022 Protein Ql (U) 30 mg/dl Negative [facility] Serum or plasma calcium sanford urement (mass/volume)Ordered By: ED PROVIDER on 11-06-2022 Calcium [Mass/Vol] 9.6 mg/dL 8.5-10.1 [facility] Serum or plasma creatinine m easurement (mass/volume)Ordered By: ED PROVIDER on 11-06-2022 Creatinine [Mass/Vol] 0.76 mg/dL 0.55-1.02 [facility] Comment on above: The validity of the calculated GFR & GFRAA in patients over 70 years has not been determined. Clinical correlation is essential. Serum or plasma urea nitroge n measurement (mass/volume)Ordered By: ED PROVIDER on 11-06-2022 Urea nitrogen [Mass/Vol] 11 mg/dL 7-18 [facility] Squamous epithelial cells de tection in urine sediment by light microscopyOrdered By: ED PROVIDER on 11-06-2022 Epithelial cells.squamous LM Ql (Urine sed) 0-5 SEEN /hpf 5-10 [facility] Thin prep Papanicolaou smear with manual screeningOrdered By: ED PROVIDER on 11-06-2022 Thin prep Papanicolaou smear with manual screening 8 5-15 [facility] Urine blood detectionOrdered By: ED PROVIDER on 11-06-2022 RBC Ql (U) 10 /ul Negative [facility] RBC Ql (U) 0-5 SEEN /hpf 0-5 [facility] Urine clarityOrdered By: ED PROVIDER on 11-06-2022 Clarity (U) Sl. Cloudy Clear [facility] Urine color determinationOrd ered By: ED PROVIDER on 11-06-2022 Color (U) Yellow Yellow [facility] Urine glucose detectionOrder ed By: ED PROVIDER on 11-06-2022 Glucose Ql (U) 50 mg/dl Normal [facility] Urine leukocyte esterase det ection by dipstickOrdered By: ED PROVIDER on 11-06-2022 Leukocyte esterase Test strip Ql (U) Negative Negative [facility] Urine pHOrdered By: ED PROVI NORMAN on 11-06-2022 pH (U) 6.5 [pH] 5.0 - 8.0 [facility] [place] Urine sediment bacteria coun t by microscopy (number/high power field)Ordered By: ED PROVIDER on 11-06-2022 Bacteria LM.HPF (Urine sed) [#/Area] 0 /[HPF] None Seen [facility] Urine specific gravity measu rementOrdered By: ED PROVIDER on 11-06-2022 Specific gravity (U) [Rel density] 1.020 1.002-1.030 [facility] Urobilinogen Auto test strip Ql (U)Ordered By: ED PROVIDER on 11-06-2022 Urobilinogen Ql (U) 1 mg/dl Normal [facility] INHOUSE Rapid Covid/ Flu A/ Flu BOrdered By: Yaa Calderon on 02-22-2022 SARS-CoV-2 (COVID-19) RNA MICHELLE+probe Ql (Unsp spec) Negative Normal [facility]; [facility] Work Phone: CAMIOVon 01-23-2022 CNOV Office Visit ([facility] ) -------- OFE GIMENEZ ([id number]) 1975 F Date Time Provider Department 01/23/22 8:45 AM ABRAHAN PETERSON WSTR During your visit today, we recorded the following information about you: Temperature Pulse Respiration Blood pressure 99.4 degrees 89/minute 18/minute 146/88 Weight 62.3 kg Abrahan PteersonREINALDO.SENIOR BENEFITS SPECIALIST 01/23/2022 10:11 AM Signed Subjective HPI HPI [...] Agrees to plan Declines avs Abrahan Peterson APRN.SENIOR BENEFITS SPECIALIST Referring Provider: SELF [200] Allergies As of Date: 01/23/2022 (No Known Allergies) Date Reviewed: 01/23/2022 Reviewed by: Abrahan Peterson APRN.SENIOR BENEFITS SPECIALIST - Fully Assessed Reason for Visit: Cough [...] trimethoprim-polymyxin (NEREIDA (more content not included)... Normal [facility] CNOVon 08-28-2021 CNOV Office Visit ([facility] ) -------- OFE GIMENEZ ([id number]) 1975 F Date Time Provider Department 08/28/21 8:30 AM MELVA REYNA RUST During your visit today, we recorded the following information about you: Temperature Pulse Respiration Blood pressure 98.3 degrees 86/minute 18/minute 142/82 Weight 66.5 kg Melva Reyna APRN.SENIOR BENEFITS SPECIALIST 08/28/2021 9:11 AM Addendum Albuterol nebulizer every [...] are severe or concerning to you. Melva Ryena, REINALDO.SENIOR BENEFITS SPECIALIST 08/28/2021 9:16 AM Signed Subjective HPI HPI [...] of smell (more content not included)... Normal [facility] COVID w FLU A+B Routon 08-28 Influenza A PCR Negative Normal [facility] Comment on above: Performed By: #### C OVFLU #### [facility] [employer] [address] [address] Influenza B PCR Negative Normal [facility] Comment on above: Performed By: #### C OVFLU #### [facility] [employer] [address], [place] [address] SARS-CoV-2 (COVID-19) RNA MICHELLE+probe Ql (Unsp spec) UPPER RESPIRATORY TRACT SWAB Normal [facility] Comment on above: Performed By: #### C OVFLU #### [facility] [employer] [address], [place] [address] SARS-CoV-2 (COVID-19) RNA MICHELLE+probe Ql (Unsp spec) Positive for COVID19 (SARS CoV2) by RT-PCR or equivalent method. Critically abnormal Negative for COVID19 (SARS CoV2) by RT-PCR or equivalent method. [facility] Comment on above: Result Comment: This test was developed and its performance characteristics determined by [facility] [place]. This test has been authorized by FDA under an Emergency Use Authorization (EUA). This test has been validated in accordance with the FDA's Guidance Document Policy for Diagnostics Testing in Laboratories Certified to Perform High Complexity Testing under CLIA prior to Emergency use Authorization for Coronavirus Disease 2019 during the Public Health Emergency issued on October 19, 2019. Test performed by [facility], [facility] [place], [address] [place] [address]. Performed By: #### C OVFLU #### [place] [address] OV 08-11-2021 [facility] -------- OFE GIMENEZ ([id number]) 1975 F Date Time Provider Department 08/11/21 6:00 PM LEN MARINELLI RUST During your visit today, we recorded the [...] Marinelli APRN.CNP 08/11/2021 6:50 PM Signed [facility] [address] [place] [address] Emergency Department Diagnosis: Assessment COUGH: Your doctor [...] have increased (more content not included)... Normal [facility] Raji 08-11-2021 PEPE Telephone ([facility]) -------- OFE GIMENEZ ([id number]) 1975 F Date Time Provider Department 08/11/21 [...] Status:Closed by ANDIE AKHTAR on 08/12/21 Normal [facility] COVID w FLU A+B Routon 08-11 Influenza A PCR Positive Critically abnormal [facility] Comment on above: Performed By: #### C OVFLU #### [facility] [address], [place] [address] Influenza B PCR Negative Normal [facility] Comment on above: Performed By: #### C OVFLU #### [facility] [address], [place] [address] SARS-CoV-2 (COVID-19) RNA MICHELLE+probe Ql (Unsp spec) UPPER RESPIRATORY TRACT SWAB Normal [facility] Comment on above: Performed By: #### C OVFLU #### [place] [id number] [place], [place] [address] SARS-CoV-2 (COVID-19) RNA MICHELLE+probe Ql (Unsp spec) Negative for COVID19 (SARS CoV2) by RT-PCR or equivalent method. Normal Negative for COVID19 (SARS CoV2) by RT-PCR or equivalent method. [facility] Comment on above: Result Comment: This test was developed and its performance characteristics determined by [facility] [place]. This test has been authorized by FDA under an Emergency Use Authorization (EUA). This test has been validated in accordance with the FDA's Guidance Document Policy for Diagnostics Testing in Laboratories Certified to Perform High Complexity Testing under CLIA prior to Emergency use Authorization for Coronavirus Disease 2019 during the Public Health Emergency issued on October 19, 2019. Test performed by [facility], [facility] Pathology and Laboratory Medicine [place], [address] [place] [id number]. Performed By: #### C OVFLU #### [place] [id number] [place] [id number] XR CHEST 2V FRONTAL/LATon XR CHEST 2V [...] apices, right upper lobe more than left. Veneer Marker: YURI Transcribe Date/Time: Aug 11 2021 7:07P Dictated by : NESTOR CRONIN MD This examination was interpreted and the report reviewed and electronically signed by: NESTOR CRONIN MD on Aug 11 2021 7:10PM EST [id number] Normal [facility] XR Chest PA and Lateralon IMPRESSION: 1. No acute radiographic abnormalities. 2. Hyperaeration consistent with COPD. 3. 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 Veneer Marker: [facility]ways Transcribe Date/Time: Aug 11 2021 7:07P Dictated by : NESTOR CRONIN MD This examination was interpreted and the report reviewed and electronically signed by: NESTOR CRONIN MD on Aug 11 2021 7:10PM [facility] DIV[facility] OF RADIOLOGY * * *Final Report* [...] apices, right upper lobe more than left. Veneer Marker: PSCNetta Transcribe Date/Time: Aug 11 2021 7:07P Dictated by : NESTOR CRONIN MD This examination was interpreted and the report reviewed and electronically signed by: NESTOR CRONIN MD on Aug 11 2021 7:10PM [facility] Radiology Study observation (narrative) [facility] XR Chest PA and LateralOrder ed By: Ccf Provider on 08-11-2021 [facility] CNOVon 05-14-2021 CNOV Office Visit (UCWSTR ) -------- OFE GIMENEZ ([id number]) 1975 F Date Time Provider Department 05/14/21 [...] have confirmed and edited as necessary, the [facility] Review of Systems Constitutional: Positive [...] testing ordered; Results will be released to [facility] in 24-48 hours Discussed quarantine, social distancing, hand washing/proper hygiene. Rest, fluids, OTC medications discussed -Reviewed red flags (ie chest pain, shortness of breath) with patient and when to seek care sooner. NELLA Hammond PA-C 05/14/2021 6:45 PM Signed How to Manage Common Symptoms Associated with COVID for Adults Fever- Fever is a tem (more content not included)... Normal [facility] Coronavirus 2019on SARS-CoV-2 (COVID-19) RNA MICHELLE+probe Ql (Unsp spec) UPPER RESPIRATORY TRACT SWAB Normal [facility] Comment on above: Performed By: #### C OVFLU #### [place] [id number] SARS-CoV-2 (COVID-19) RNA MICHELLE+probe Ql (Unsp spec) Negative for COVID19 (SARS CoV2) by RT-PCR or equivalent method. Normal Negative for COVID19 (SARS CoV2) by RT-PCR or equivalent method. [facility] Comment on above: Result Comment: This test was developed and its performance characteristics determined by [facility] Pathology and Laboratory Medicine [place]. This test has been authorized by FDA under an Emergency Use Authorization (EUA). This test has been validated in accordance with the FDA's Guidance Document Policy for Diagnostics Testing in Laboratories Certified to Perform High Complexity Testing under CLIA prior to Emergency use Authorization for Coronavirus Disease 2019 during the Public Health Emergency issued on October 19, 2019. Test performed by [facility], [facility] Pathology and Laboratory Medicine [place], [address] [place] [address]. Performed By: #### C OVFLU #### [place] [id number] 2018 Novel Coronavirus (COVI D-19), MICHELLE ([id number])Ordered By: Title I Assistant on 11-25-20202018 Novel Coronavirus (COVID-19), MICHELLE ([id number]) Not detected Normal [facility]; [facility] Work Phone: Comment on above: This nucleic acid am plification test was developed and its performancecharacteristics determined by [employer]. Nucleic acidamplification tests include RT-PCR and TMA. [...] detected) result in this assay. PERFORMED BY: [employer] [employer] [place] [id number] [place] (ANTINUCLEAR ANTIBODY) ( [address])Ordered By: Title I Assistant on 12-24-2019 Nuclear Ab Ql (S) Negative Normal [facility] Work Phone: Comment on above: PATIENT NOT FASTINGP ERFORMED BY: [employer] [place] [id number] Nuclear Ab Ql (S) Negative Normal [facility]; [facility] Work Phone: Comment on above: PATIENT NOT FASTINGP ERFORMED BY: [employer] [place] [id number] FERRITIN (21980)Ordered By: Title I Assistant on 12-24-2019 Ferritin [Mass/Vol] 6 ng/mL Abnormal 15-150 Compr ehens[facility] Work Phone: Comment on above: PATIENT NOT FASTINGP ERFORMED BY: [employer] [place] [id number] Iron Binding Capacity (TIBC) (03191)Ordered By: Title I Assistant on 12-24-2019 Iron [Mass/Vol] 11 ug/dL Abnormal 27-159 [facility] Work Phone: Comment on above: PATIENT NOT FASTINGP ERFORMED BY: CB [facility] Ituzbi4787 [address] RoadDublin [place] [id number] Iron binding capacity [Mass/Vol] 462 ug/dL Abnormal 250-450 [facility] Work Phone: Comment on above: PATIENT NOT FASTINGP ERFORMED BY: CB [facility] Gthrgs2322 [address] RoadDublin [place] [id number] Iron binding capacity.unsaturated [Mass/Vol] 451 ug/dL Abnormal 131-425 [facility] Work Phone: Comment on above: PATIENT NOT FASTINGP ERFORMED BY: CB [facility] Dyczdy7[address] RoadDublin [place] [id number] Iron saturation [Mass fraction] 2 % Abnormal 15-55 [facility] Work Phone: Comment on above: PATIENT NOT FASTINGP ERFORMED BY: CB [facility] Khsulf2823 [address] RoadDublin [place] [id number] METABOLIC PANEL, COMPREHENSI VE ([id number])Ordered By: Title I Assistant on 12-24-2019 Albumin [Mass/Vol] 4.8 g/dL Normal 3.8-4.8 [facility] Internal Medicine Work Phone: Comment on above: PATIENT NOT FASTINGP ERFORMED BY: CB [facility] Wxmdxk8597 [address] RoadDublin [place] [id number] Albumin/Globulin [Mass ratio] 3.0 {ratio} Abnormal 1.2-2.2 [facility] Work Phone: Comment on above: PATIENT NOT FASTINGP ERFORMED BY: CB [facility] Tjbiaj4095 [address] RoadDublin [place] [id number] ALP [Catalytic activity/Vol] 72 [iU]/L Normal 39-117 [facility] Work Phone: Comment on above: PATIENT NOT FASTINGP ERFORMED BY: CB [facility] Qfsfzy4777 [address] RoadDublin [place] [id number] ALP [Catalytic activity/Vol] 72 U/L Normal 39-117 [facility]; [facility] Work Phone: Comment on above: PATIENT NOT FASTINGP ERFORMED BY: CB [facility] Nuwnpu0481 [address] RoadDublin [place] [id number] ALT [Catalytic activity/Vol] 13 [iU]/L Normal 0-32 [facility] Work Phone: Comment on above: PATIENT NOT FASTINGP ERFORMED BY: CB [facility] Kajsib3992 [address] RoadDublin [place] [id number] ALT [Catalytic activity/Vol] 13 U/L Normal 0-32 [facility]; [facility] Work Phone: Comment on above: PATIENT NOT FASTINGP ERFORMED BY: ANGELINE [facility] Xrwcle5175 [address] RoadDublin [place] [id number] AST [Catalytic activity/Vol] 16 [iU]/L Normal 0-40 [facility] Work Phone: Comment on above: PATIENT NOT FASTINGP ERFORMED BY: CB [facility] Ppjijq7302 [address] RoadDublin [place] [id number] AST [Catalytic activity/Vol] 16 U/L Normal 0-40 [facility]; [facility] Work Phone: Comment on above: PATIENT NOT FASTINGP ERFORMED BY: CB [facility] Qogrrl5538 [address] RoadDublin [place] [id number] Bilirubin [Mass/Vol] 0.3 mg/dL Normal 0.0-1.2 [facility] Internal Medicine Work Phone: Comment on above: PATIENT NOT FASTINGP ERFORMED BY: CB [facility] Sonlip3112 [address] RoadDublin [place] [id number] Calcium [Mass/Vol] 9.8 mg/dL Normal 8.7-10.2 [facility] Internal Medicine Work Phone: Comment on above: PATIENT NOT FASTINGP ERFORMED BY: CB [facility] Tgukvk2661 [address] RoadDublin [place] [id number] Chloride [Moles/Vol] 105 mmol/L Normal 96-106 [facility] Work Phone: Comment on above: PATIENT NOT FASTINGP ERFORMED BY: ANGELINE [facility] Zjkfsi7787 Anegl [facility]in [place] [id number] CO2 [Moles/Vol] 23 mmol/L Normal 20-29 Comprehen [facility] Internal Medicine Work Phone: Comment on above: PATIENT NOT FASTINGP ERFORMED BY: CB [facility] Sozjkn8915 [address] [facility] [id number] Creatinine [Mass/Vol] 0.76 mg/dL Normal 0.57-1.[address] [facility] Internal Medicine Work Phone: Comment on above: PATIENT NOT FASTINGP ERFORMED BY: ANGELINE [facility] Pzengr8075 [address] [facility] [id number] GFR/1.73 sq M predicted among blacks CKD-EPI (S/P/Bld) [Vol rate/Area] 109 mL/min/1.73 Normal [facility] Work Phone: Comment on above: PATIENT NOT FASTINGP ERFORMED BY: ANGELINE [facility] Updqck2522 [address] [facility] [id number] GFR/1.73 sq M predicted among non-blacks CKD-EPI (S/P/Bld) [Vol rate/Area] 94 mL/min/1.73 Normal [facility] Work Phone: Comment on above: PATIENT NOT FASTINGP ERFORMED BY: ANGELINE [facility] Dlgcyw6964 [facility] [id number] Globulin (S) [Mass/Vol] 1.6 g/dL Normal 1.5-4.5 [facility] Work Phone: Comment on above: PATIENT NOT FASTINGP ERFORMED BY: ANGELINE [facility] Ndtrrg8850 [facility] [id number] Glucose [Mass/Vol] 87 mg/dL Normal 65-99 [facility] Internal Medicine Work Phone: Comment on above: PATIENT NOT FASTINGP ERFORMED BY: ANGELINE [facility] Rfphhf1761 [address] RoadDublin [place] [id number] Potassium [Moles/Vol] 4.8 mmol/L Normal 3.5-5.[address] [facility] Internal Medicine Work Phone: Comment on above: PATIENT NOT FASTINGP ERFORMED BY: ANGELINE [facility] Wlgzcm5351 [address] RoadDublin [place] [id number] Protein [Mass/Vol] 6.4 g/dL Normal 6.0-8.5 [facility] Internal Medicine Work Phone: Comment on above: PATIENT NOT FASTINGP ERFORMED BY: ANGELINE [facility] Sgrnzx1023 [address] RoadDublin [place] [id number] Sodium [Moles/Vol] 143 mmol/L Normal 134-144 [facility] Internal Medicine Work Phone: Comment on above: PATIENT NOT FASTINGP ERFORMED BY: ANGELINE [facility] Pkvowt1971 [address] RoadDublin [place] [id number] Urea nitrogen [Mass/Vol] 9 mg/dL Normal 6-24 [facility] Internal Medicine Work Phone: Comment on above: PATIENT NOT FASTINGP ERFORMED BY: ANGELINE [facility] Uhtpvh7382 [address] RoadDublin [place] [id number] Urea nitrogen/Creatinine [Mass ratio] 12 mg/mg Normal 9-23 [facility] Internal Medicine Work Phone: Comment on above: PATIENT NOT FASTINGP ERFORMED BY: [facility] Zwcojb7535 [address] RoadDublin [place] [id number] CBC & PLATELETS (AUTO) ([id number] [id number])Ordered By: Title I Assistant on 12-23-2019 Erythrocyte distribution width (RBC) [Ratio] 19.9 % Abnormal 11.7-15.4 [facility] Internal Medicine Work Phone: Comment on above: Test(s) Platelets ca lled to Dr Cuadra on 12/24/2019 at 05:54 ESTPATIENT NOT FASTINGPERFORMED BY: ANGELINE [facility] Jcnirj1645 Angel RoadDublin [place] [id number] BY: [address] [id number] Hematocrit (Bld) [Volume fraction] 26.1 % Abnormal 34.0-46.6 [facility] Work Phone: Comment on above: Test(s) Platelets ca lled to Dr Cuadra on 12/24/2019 at 05:54 ESTPATIENT NOT FASTINGPERFORMED BY: [employer]70 [facility] [id number] BY: [employer] [address] [id number] Hemoglobin (Bld) [Mass/Vol] 6.9 g/dL Abnormal 11.1-15.9 [facility] Internal Medicine Work Phone: Comment on above: Test(s) Platelets ca lled to Dr Cuadra on 12/24/2019 at 05:54 ESTPATIENT NOT FASTINGPERFORMED BY: [employer]70 [facility] [id number] BY: [employer] [address] [id number] MCH (RBC) [Entitic mass] 16.5 pg Abnormal 26.6-33.0 [facility] Internal Medicine Work Phone: Comment on above: Test(s) Platelets ca lled to Dr Cuadra on 12/24/2019 at 05:54 ESTPATIENT NOT FASTINGPERFORMED BY: [employer] [facility] [id number] BY: [employer] [id number] MCHC (RBC) [Mass/Vol] 26.4 g/dL Abnormal 31.5-35.[address] [facility] Internal Medicine Work Phone: Comment on above: Test(s) Platelets ca lled to Dr Cuadra on 12/24/2019 at 05:54 ESTPATIENT NOT FASTINGPERFORMED BY: ANGELINE [employer]70 [facility] [id number] BY: [facility] [address] [id number] MCV (RBC) [Entitic vol] 63 fL Abnormal 79-97 [facility] Work Phone: Comment on above: Test(s) Platelets ca lled to Dr Cuadra on 12/24/2019 at 05:54 ESTPATIENT NOT FASTINGPERFORMED BY: [employer] [facility] [id number] BY: [facility] Cxswxngfqn[address] [id number] Morphology Dragan (Bld) [Interp] Note: Normal [facility] Work Phone: Comment on above: Verified by microsco pic examination. Test(s) Platelets ca lled to Dr Cuadra on 12/24/2019 at 05:54 ESTPATIENT NOT FASTINGPERFORMED BY: [employer]70 [facility] [id number] BY: [facility] Nmncnkpzjh[address] [id number] Platelets (Bld) [#/Vol] 1036 {x10E3/uL} Abnormal 150-450 [facility] Work Phone: Comment on above: Platelets vary in si ze.Large platelets were observed. Test(s) Platelets ca lled to Dr Cuadra on 12/24/2019 at 05:54 ESTPATIENT NOT FASTINGPERFORMED BY: [employer] Cwrdfq2545 [facility] [id number] BY: [facility] [id number] Platelets (Bld) [#/Vol] 1036 10*3/uL Abnormal 150-450 [facility]; [facility] Work Phone: Comment on above: Platelets vary in si ze.Large platelets were observed. Test(s) Platelets ca lled to Dr Cuadra on 12/24/2019 at 05:54 ESTPATIENT NOT FASTINGPERFORMED BY: Keeps[employer]6370 [facility] [id number] BY: [facility] [id number] RBC (Bld) [#/Vol] 4.17 {x10E6/uL} Normal 3.77-5.28 Co m[facility] Work Phone: Comment on above: Polychromasia presen t Test(s) Platelets ca lled to Dr Cuadra on 12/24/2019 at 05:54 ESTPATIENT NOT FASTINGPERFORMED BY: ANGELINE LabRhone Apparelrp Yjhpau6965 [facility] [id number] BY: digitalbox[address] [id number] RBC (Bld) [#/Vol] 4.17 10*6/uL Normal 3.77-5.[address] [facility] Internal Medicine; [facility] Work Phone: Comment on above: Polychromasia presen t Test(s) Platelets ca lled to Dr Cuadra on 12/24/2019 at 05:54 ESTPATIENT NOT FASTINGPERFORMED BY: [employer] Tpggad1917 [facility] [id number] BY: [facility] Nzoqdrhfjp[address] [id number] WBC (Bld) [#/Vol] 5.8 {x10E3/uL} Normal 3.4-10.[address] [facility] Internal Medicine Work Phone: Comment on above: Test(s) Platelets ca lled to Dr Cuadra on 12/24/2019 at 05:54 ESTPATIENT NOT FASTINGPERFORMED BY: [employer]eps[employer]6370 [facility] [id number] BY: [facility] Muqfuvievn[address] [id number] WBC (Bld) [#/Vol] 5.8 10*3/uL Normal 3.4-10.8 [facility] Medicine; [facility] Work Phone: Comment on above: Test(s) Platelets ca lled to Dr Cuadra on 12/24/2019 at 05:54 ESTPATIENT NOT FASTINGPERFORMED BY: [employer] Tfaxpm4148 [facility] [id number] BY: [facility] Njzbbudajr[address] [id number] Immunoglobulins, Quantitativ e, IgA,IgE, IgG, IgM (86364)Ordered By: Title I Assistant on 12-23-2019 IgA [Mass/Vol] mg/dL Abnormal 87-352 [facility] Internal Medicine Work Phone: Comment on above: Result confirmed on concentration. Test(s) Platelets ca lled to Dr Cuadra on 12/24/2019 at 05:54 ESTPATIENT NOT FASTINGPERFORMED BY: Make[employer]70 [facility] [id number] BY: [employer] [address] [id number] IgA [Mass/Vol] mg/dL Abnormal 87-352 [facility]; [facility] Work Phone: Comment on above: Result confirmed on concentration. Test(s) Platelets ca lled to Dr Cuadra on 12/24/2019 at 05:54 ESTPATIENT NOT FASTINGPERFORMED BY: Make[employer]70 AngelCollision HubAt[facility] [id number] BY: Ava[employer] [id number] IgE Qn [IU]/L Abnormal 6-495 [facility] Work Phone: Comment on above: Test(s) Platelets ca lled to Dr Cuadra on 12/24/2019 at 05:54 ESTPATIENT NOT FASTINGPERFORMED BY: Keeps[employer]6370 [facility] [id number] BY: Ava[employer] [id number] IgE Qn [IU]/L Abnormal 6-495 [facility]; [facility] Work Phone: Comment on above: Test(s) Platelets ca lled to Dr Cuadra on 12/24/2019 at 05:54 ESTPATIENT NOT FASTINGPERFORMED BY: [employer]6370 [facility] [id number] BY: A[address]amo[address] [id number] IgG [Mass/Vol] 381 mg/dL Abnormal 586-1602 [facility] Internal Medicine Work Phone: Comment on above: Test(s) Platelets ca lled to Dr Cuadra on 12/24/2019 at 05:54 ESTPATIENT NOT FASTINGPERFORMED BY: [facility]6370 [facility] [id number] BY: [address] [id number] IgM [Mass/Vol] 32 mg/dL Normal 26-217 [facility] Internal Medicine Work Phone: Comment on above: Test(s) Platelets ca lled to Dr Cuadra on 12/24/2019 at 05:54 ESTPATIENT NOT FASTINGPERFORMED BY: ANGELINE [facility] Nabfqe4428 [facility] [id number] BY: [address] [id number] 2019 Novel Coronavirus (COVI D-19), MICHELLE ([id number])Ordered By: Title I Assistant on 12-12-20192018 Novel Coronavirus (COVID-19), MICHELLE ([id number]) Not Detected Normal [facility] Work Phone: Comment on above: This test was develo ped and its performance characteristics determinedby [employer]. This test has not been FDA cleared [...] orrevoked sooner. PATIENT NOT FASTINGP ERFORMED BY: digitalbox[address] [id number] Information: NASAL 2019 Novel Coronavirus (COVID-19), MICHELLE ([id number]) Not detected Normal [facility]; [facility] Work Phone: Comment on above: This test was develo ped and its performance characteristics determinedby [employer]. This test has not been FDA cleared [...] orrevoked sooner. PATIENT NOT FASTINGP ERFORMED BY: digitalbox[address] [id number] Information: NASAL Vital Signs Date Time Vital Sign Value Performing Clinician Facility 12-08-2024 09:17-0400 Body temperature 98 [degF] Dr. Yarelis Fitzpatrick DO Work Phone: [facility] [place] 12-08-2024 09:17-0400 Diastolic blood pressure 96 mm[Hg] Dr. Yarelis Fitzpatrick DO Work Phone: [facility] [place] 12-08-2024 09:17-0400 Heart rate 106 /min Dr. Yarelis Fitzpatrick DO Work Phone: [facility] [place] 12-08-2024 09:17-0400 Respiratory rate 22 /min Dr. Yarelis Fitzpatrick DO Work Phone: [facility] [place] 12-08-2024 09:17-0400 SaO2% (BldA) [Mass fraction] 97 % Dr. Yarelis Fitzpatrick DO Work Phone: [facility] [place] 12-08-2024 09:17-0400 Systolic blood pressure 148 mm[Hg] Dr. Yarelis Fitzpatrick DO Work Phone: [facility] [place] 12-08-2024 06:50-0400 Body height 167.[address] Yarelis Fitzpatrick DO Work Phone: [facility] [place] 12-08-2024 06:50-0400 Body mass index (BMI) [Ratio] 22.6 kg/m2 Dr. Yarelis Fitzpatrick DO Work Phone: [facility] [place] 12-08-2024 06:50-0400 Body weight 63.[address] Yarelis Fitzpatrick DO Work Phone: [facility] [place] 11-06-2024 23:37-0400 Body temperature 98.5 [degF] Dr. Yarelis Fitzpatrick DO Work Phone: [facility] [place] 11-06-2024 23:37-0400 Diastolic blood pressure 89 mm[Hg] Dr. Yarelis Fitzpatrick DO Work Phone: [facility] [place] 11-06-2024 23:37-0400 Heart rate 98 /min Dr. Yarelis Fitzpatrick DO Work Phone: [facility] [place] 11-06-2024 23:37-0400 Respiratory rate 18 /min Dr. Yarelis Fitzpatrick DO Work Phone: [facility] [place] 11-06-2024 23:37-0400 SaO2% (BldA) [Mass fraction] 97 % Dr. Yarelis Fitzpatrick DO Work Phone: [facility] [place] 11-06-2024 23:37-0400 Systolic blood pressure 163 mm[Hg] Dr. Yarelis Fitzpatrick DO Work Phone: [facility] [place] 11-06-2024 21:19-0400 Body height 167.[address] Yarelis Fitzpatrick DO Work Phone: [facility] [place] 11-06-2024 21:19-0400 Body mass index (BMI) [Ratio] 22.6 kg/m2 Dr. Yarelis Fitzpatrick DO Work Phone: [facility] [place] 11-06-2024 21:19-0400 Body weight 63.[address] Yarelis Fitzpatrick DO Work Phone: [facility] [place] 11-01-2024 09:28-0400 Body mass index (BMI) [Ratio] 22.2 kg/m2 Dr. Yarelis Fitzpatrick DO Work Phone: [facility] [place] 11-01-2024 09:28-0400 Body temperature 97.6 [degF] Dr. Yarelis Fitzpatrick DO Work Phone: [facility] [place] 11-01-2024 09:28-0400 Body weight 62.[address] Yarelis Fitzpatrick DO Work Phone: [facility] [place] 11-01-2024 09:28-0400 Diastolic blood pressure 90 mm[Hg] Dr. Yarelis Fitzpatrick DO Work Phone: [facility] [place] 11-01-2024 09:28-0400 Heart rate 73 /min Dr. Yarelis Fitzpatrick DO Work Phone: [facility] [place] 11-01-2024 09:28-0400 Respiratory rate 20 /min Dr. Yarelis Fitzpatrick DO Work Phone: [facility] [place] 11-01-2024 09:28-0400 SaO2% (BldA) [Mass fraction] 95 % Dr. Yarelis Fitzpatrick DO Work Phone: [facility] [place] 11-01-2024 09:28-0400 Systolic blood pressure 144 mm[Hg] Dr. Yarelis Fitzpatrick DO Work Phone: [facility] [place] 08-30-2024 08:09-0500 Body height 167.[address] Yarelis Fitzpatrick DO Work Phone: [facility] [place] 08-30-2024 08:09-0500 Body mass index (BMI) [Ratio] 23.1 kg/m2 Dr. Yarelis Fitzpatrick DO Work Phone: [facility] [place] 08-30-2024 08:09-0500 Body temperature 97.7 [degF] Dr. Yarelis Fitzpatrick DO Work Phone: [facility] 08-30-2024 08:09-0500 Body weight 64.[address] Yarelis Fitzpatrick DO Work Phone: [facility] 08-30-2024 08:09-0500 Diastolic blood pressure 86 mm[Hg] Dr. Yarelis Fitzpatrick DO Work Phone: [facility] 08-30-2024 08:09-0500 Heart rate 92 /min Dr. Yarelis Fitzpatrick DO Work Phone: [facility] 08-30-2024 08:09-0500 Respiratory rate 14 /min Dr. Yarelis Fitzpatrick DO Work Phone: [facility] 08-30-2024 08:09-0500 SaO2% (BldA) [Mass fraction] 96 % Dr. Yaerlis Fitzpatrick DO Work Phone: [facility] 08-30-2024 08:09-0500 Systolic blood pressure 161 mm[Hg] Dr. Yarelis Fitzpatrick DO Work Phone: [facility] 08-15-2023 08:44-0500 Body height 167.[address] Yarelis Fitzpatrick Work Phone: [facility] 08-15-2023 08:44-0500 Body mass index (BMI) [Ratio] 22.3 kg/m2 Dr. Yarelis Fitzpatrick Work Phone: [facility] 08-15-2023 08:44-0500 Body temperature 97.6 [degF] Dr. Yarelis Fitzpatrick Work Phone: [facility] 08-15-2023 08:44-0500 Body weight 62.[address] Yarelis Fitzpatrick Work Phone: [facility] 08-15-2023 08:44-0500 Diastolic blood pressure 91 mm[Hg] Dr. Yarelis Fitzpatrick Work Phone: [facility] 08-15-2023 08:44-0500 Heart rate 89 /min Dr. Yarelis Fitzpatrick Work Phone: [facility] 08-15-2023 08:44-0500 Respiratory rate 18 /min Dr. Yarelis Fitzpatrick Work Phone: [facility] 08-15-2023 08:44-0500 SaO2% (BldA) [Mass fraction] 98 % Dr. Yarelis Fitzpatrick Work Phone: [facility] 08-15-2023 08:44-0500 Systolic blood pressure 152 mm[Hg] Dr. Yarelis Fitzpatrick Work Phone: [facility] 01-24-2023 06:02-0400 Body height 167.[address] Yarelis Fitzpatrick Work Phone: [facility] 01-24-2023 06:02-0400 Body mass index (BMI) [Ratio] 21.4 kg/m2 Dr. Yarelis Fitzpatrick Work Phone: [facility] 01-24-2023 06:02-0400 Body temperature 98.2 [degF] Dr. Yarelis Fitzpatrick Work Phone: [facility] 01-24-2023 06:02-0400 Body weight 60.[address] Yarelis Fitzpatrick Work Phone: [facility] 01-24-2023 06:02-0400 Diastolic blood pressure 88 mm[Hg] Dr. Yarelis Fitzpatrick Work Phone: [facility] 01-24-2023 06:02-0400 Heart rate 107 /min Dr. Yarelis Fitzpatrick Work Phone: [facility] 01-24-2023 06:02-0400 Respiratory rate 18 /min Dr. Yarelis Fitzpatrick Work Phone: [facility] 01-24-2023 06:02-0400 SaO2% (BldA) [Mass fraction] 96 % Dr. Yarelis Fitzpatrick Work Phone: [facility] 01-24-2023 06:02-0400 Systolic blood pressure 144 mm[Hg] Dr. Yarelis Fitzpatrick Work Phone: [facility] 01-05-2023 09:46-0400 Body height 167.64 cm Patience [...] Phone: 12-30-2022 11:59-0400 Body height 167.64 cm [facility]; [facility] Work Phone: Comment on above: VIRTUAL 12-30-2022 11:59-0400 Body mass index (BMI) [Ratio] 23.24 kg/m2 [facility]; [facility] Work Phone: Comment on above: VIRTUAL 12-30-2022 11:59-0400 Body surface area Derived from formula 1.74 m2 [facility]; [facility] Work Phone: Comment on above: VIRTUAL 12-30-2022 11:59-0400 Body weight 65.32 kg [facility]; [facility] Work Phone: Comment on above: VIRTUAL 12-16-2022 11:07-0400 Body height 167.64 cm Kiesha Slarb TRIAGE ASSISTANT [facility]; [facility] Work Phone: 12-16-2022 11:07-0400 Body mass index (BMI) [Ratio] 23.24 kg/m2 Kiesha Slarb TRIAGE ASSISTANT [facility]; [facility] Work Phone: 12-16-2022 11:07-0400 Body surface area Derived from formula 1.74 m2 Kiesha Slarb TRIAGE ASSISTANT [facility]; [facility] Work Phone: 12-16-2022 11:07-0400 Body temperature 97.9 [degF] Kiesha Slarb TRIAGE ASSISTANT [facility]; [facility] Work Phone: Comment on above: Method: Temporal 12-16-2022 11:07-0400 Body weight 65.32 kg Kiesha Slarb TRIAGE ASSISTANT [facility]; [facility] Work Phone: 12-16-2022 11:07-0400 Diastolic blood pressure 78 mm[Hg] Kiesha Slarb TRIAGE ASSISTANT [facility]; [facility] Work Phone: Comment on above: Patient Position: Sitting; Cuff Location : Left Arm; Cuff Size: Standard 12-16-2022 11:07-0400 Heart rate 86 /min Kiesha Slarb TRIAGE ASSISTANT [facility]; [facility] Work Phone: Comment on above: Pattern: Regular 12-16-2022 11:07-0400 Respiratory rate 18 /min Kiesha Slarb TRIAGE ASSISTANT [facility]; [facility] Work Phone: Comment on above: Pattern: Unlabored 12-16-2022 11:07-0400 SaO2% (BldA) [Mass fraction] 98 % Kiesha Slarb TRIAGE ASSISTANT [facility]; [facility] Work Phone: Comment on above: Room air 12-16-2022 11:07-0400 Systolic blood pressure 122 mm[Hg] Kiesha Slarb TRIAGE ASSISTANT [facility]; [facility] Work [...] Sitting 11-07-2022 00:57-0400 Body temperature 98.4 [degF] [facility] 11-07-2022 00:57-0400 Diastolic blood pressure 88 mm[Hg] [facility] 11-07-2022 00:57-0400 Heart rate 88 /min [facility] 11-07-2022 00:57-0400 Respiratory rate 16 /min [facility] 11-07-2022 00:57-0400 Systolic blood pressure 168 mm[Hg] [facility] 11-07-2022 00:00-0400 SaO2% (BldA) [Mass fraction] 97 % [facility] 11-06-2022 22:01-0400 Body height 167.64 cm [facility] 11-06-2022 22:01-0400 Body mass index (BMI) [Ratio] 23.3 kg/m2 [facility] 11-06-2022 22:01-0400 Body weight 65.54 kg [facility] 11-06-2022 09:26-0400 Body temperature 99.3 [degF] Abrahan Nicholas VENTILATING EQUIPMENT INSTALLER.SENIOR BENEFITS SPECIALIST Work Phone: [facility] 11-06-2022 09:26-0400 Body weight 65.05 kg Abrahan Nicholas VENTILATING EQUIPMENT INSTALLER.SENIOR BENEFITS SPECIALIST Work Phone: [facility] 11-06-2022 09:26-0400 Diastolic blood pressure 92 mm[Hg] Abrahan Nicholas VENTILATING EQUIPMENT INSTALLER.SENIOR BENEFITS SPECIALIST Work Phone: [facility] 11-06-2022 09:26-0400 Heart rate 107 /min Abrahan Nicholas VENTILATING EQUIPMENT INSTALLER.SENIOR BENEFITS SPECIALIST Work Phone: [facility] 11-06-2022 09:26-0400 Respiratory rate 18 /min Abrahan Nicholas VENTILATING EQUIPMENT INSTALLER.SENIOR BENEFITS SPECIALIST Work Phone: [facility] 11-06-2022 09:26-0400 SaO2% (BldA) [Mass fraction] 96 % Abrahan Nicholas VENTILATING EQUIPMENT INSTALLER.SENIOR BENEFITS SPECIALIST Work Phone: [facility] 11-06-2022 09:26-0400 Systolic blood pressure 142 mm[Hg] Abrahan Nicholas VENTILATING EQUIPMENT INSTALLER.SENIOR BENEFITS SPECIALIST Work Phone: [facility] 10-14-2022 10:24-0500 Body height 167.64 cm Yarelis [...] 10-14-2022 10:24-0500 Body weight 65.32 kg Yarelis Aamri DO Work Phone: [facility]; [facility] [...] 10:41-0500 Body height 167.64 cm Lyubov Lemon [facility]; [facility] Work Phone: 10-07-2022 10:41-0500 Body mass index (BMI) [Ratio] 23.34 kg/m2 Lyubov Lemon [facility]; [facility] Work Phone: 10-07-2022 10:41-0500 Body surface area Derived from formula 1.74 m2 [facility]; [facility] Work Phone: 10-07-2022 10:41-0500 Body temperature 98.5 [degF] Lyubov Lemon [facility]; [facility] Work Phone: Comment on above: Method: Thermal Scan 10-07-2022 10:41-0500 Body weight 65.59 kg Lyubov Lemon [facility]; [facility] Work Phone: 10-07-2022 10:41-0500 Diastolic blood pressure 80 mm[Hg] Lyubov Lemon [facility]; [facility] Work Phone: Comment on above: Patient Position: Sitting; Cuff Location : Left Arm; Cuff Size: Standard 10-07-2022 10:41-0500 Heart rate 86 /min Lyubov Lemon [facility]; [facility] Work Phone: Comment on above: Pattern: Regular 10-07-2022 10:41-0500 Respiratory rate 16 /min Lyubov Lemon [facility]; [facility] Work Phone: Comment on above: Pattern: Unlabored 10-07-2022 10:41-0500 SaO2% (BldA) [Mass fraction] 97 % Lyubov Lemon [facility]; [facility] Work Phone: Comment on above: Room air 10-07-2022 10:41-0500 Systolic blood pressure 130 mm[Hg] Lyubov Lemon [facility]; [facility] [...] 08:41-0400 Body height 167.64 cm Kiesha Michelle [facility]; [facility] Work Phone: Comment on above: pt did not report-virtual 04-26-2022 08:41-0400 Body mass index (BMI) [Ratio] 21.67 kg/m2 Kiesha Martinez TRIAGE ASSISTANT [facility]; [facility] Work [...] 08:48-0400 Body temperature 99.39 [degF] Abrahan Nicholas VENTILATING EQUIPMENT INSTALLER.SENIOR BENEFITS SPECIALIST Work Phone: [facility] 01-23-2022 08:48-0400 Body weight 62.32 kg Abrahan King VENTILATING EQUIPMENT INSTALLER.SENIOR BENEFITS SPECIALIST Work Phone: [facility] 01-23-2022 08:48-0400 Diastolic blood pressure 88 mm[Hg] Abrahan Nicholas VENTILATING EQUIPMENT INSTALLER.SENIOR BENEFITS SPECIALIST Work Phone: [facility] 01-23-2022 08:48-0400 Heart rate 89 /min Abrahanrudy Peterson VENTILATING EQUIPMENT INSTALLER.SENIOR BENEFITS SPECIALIST Work Phone: [facility] 01-23-2022 08:48-0400 Respiratory rate 18 /min Abrahan Nicholas VENTILATING EQUIPMENT INSTALLER.SENIOR BENEFITS SPECIALIST Work Phone: [facility] 01-23-2022 08:48-0400 SaO2% (BldA) [Mass fraction] 97 % Abrahan King VENTILATING EQUIPMENT INSTALLER.SENIOR BENEFITS SPECIALIST Work Phone: [facility] 01-23-2022 08:48-0400 Systolic blood pressure 146 mm[Hg] Abrahan Nicholas VENTILATING EQUIPMENT INSTALLER.SENIOR BENEFITS SPECIALIST Work Phone: [facility] 10-15-2021 08:33-0500 Body height 167.64 cm Haydee Sorensen [facility]; [facility] [...] Derived from formula 1.69 m2 Haydee Alinaius [facility]; [facility] Work Phone: Comment on above: no vs taken as this is phone encounter d ue to covid 10-15-2021 08:33-0500 Body weight 60.9 kg Haydee Sorensen [facility]; [facility] [...] Standard 01-22-2021 08:56-0400 Body height 167.64 cm [facility]; [facility] Work Phone: 01-22-2021 08:56-0400 Body mass index (BMI) [Ratio] 21.67 kg/m2 [facility]; [facility] Work Phone: 01-22-2021 08:56-0400 Body surface area Derived from formula 1.69 m2 [facility]; [facility] Work Phone: 01-22-2021 08:56-0400 Body weight 60.9 kg [facility]; [facility] Work Phone: 10-12-2020 09:15-0500 BMI (Body Mass Index) 21.67 kg/m2 Katia Desai SENIOR BENEFITS SPECIALIST Work Phone: [facility]; [facility] Work Phone: 10-12-2020 09:15-0500 Body Temperature 98.8 [degF] Katia Desai CNP Work Phone: [facility]; [facility] Work Phone: 10-12-2020 09:15-0500 Body weight 60.9 kg Katia Desai CNP Work Phone: [facility]; [facility] Work Phone: 10-12-2020 09:15-0500 BSA (Body Surface Area) 1.69 m2 Katia Desai SENIOR BENEFITS SPECIALIST Work Phone: [facility]; [facility] Work Phone: 10-12-2020 09:15-0500 Height 167.64 cm Katia Desai SENIOR BENEFITS SPECIALIST Work Phone: [facility]; [facility] Work Phone: 10-12-2020 09:15-0500 Pulse (Heart Rate) 82 /min Katia Desai SENIOR BENEFITS SPECIALIST Work Phone: [facility]; [facility] Work Phone: Comment on above: Pattern: Regular 09-14-2020 08:56-0500 BMI (Body Mass Index) 21.67 kg/m2 Kiesha Slarb TRIAGE ASSISTANT [facility]; [facility] Work Phone: Comment on above: patient did not report 09-14-2020 08:56-0500 Body weight 60.9 kg Kiesha Slarb TRIAGE ASSISTANT [facility]; [facility] Work Phone: Comment on above: patient did not report 09-14-2020 08:56-0500 BSA (Body Surface Area) 1.69 m2 Kiesha Slarb TRIAGE ASSISTANT [facility]; [facility] Work Phone: Comment on above: patient did not report 09-14-2020 08:56-0500 Height 167.64 cm Kiesha Slarb TRIAGE ASSISTANT [facility]; [facility] Work [...] Regular 01-10-2020 12:16-0400 Pulse Oximetry 98 % Yraelis Fitzpatrick [facility] Work Phone: Comment [...] BP Diastolic 84 mm[Hg] MANUEL Voss LPN [facility] Work Phone: Comment on above: Patient Position: Sitting; Cuff Location : Left Arm; Cuff Size: Standard 12-24-2019 08:07-0400 BP Systolic 120 mm[Hg] MANUEL Voss LPN [facility] Work Phone: Comment on above: Patient Position: Sitting; Cuff Location : Left Arm; Cuff Size: Standard 12-24-2019 08:07-0400 BSA (Body Surface Area) 1.67 m2 MAUNEL Voss LPN [facility] Work Phone: 12-24-2019 08:07-0400 Height 167.64 cm MANUEL Voss LPN [facility] Work Phone: 12-24-2019 08:07-0400 Pulse [...] 08:07-0400 SaO2% (BldA) [Mass fraction] 98 % MAUNEL Voss LPN [facility]; [facility] [...] Mass Index) 20.98 kg/m2 Erasmo Huynh LPN [facility] Work Phone: 12-11-2019 13:01-0400 Body [...] 08:51-0400 Body weight 57.32 kg Yarelis Fitzpatrick [facility] Work Phone: 06-01-2010 08:51-0400 BP Diastolic 70 mm[Hg] Yarelis Fitzpatrick [facility] [...] 08:51-0400 Pulse Oximetry 98 % Yarelismichela Fitzpatrick [facility] Work [...] 09:02-0400 Body Temperature 98.4 [degF] MANUEL Voss TRIAGE ASSISTANT [facility] Work Phone: Comment on above: Method: Oral 04-30-2010 09:02-0400 Body weight 58.97 kg MANUEL Voss TRIAGE ASSISTANT [facility] Work Phone: 04-30-2010 09:02-0400 BP Diastolic 74 mm[Hg] MANUEL Voss [facility] Work Phone: Comment on above: Patient Position: Sitting; Cuff Location : Left Arm; Cuff Size: Standard 04-30-2010 09:02-0400 BP Systolic 116 mm[Hg] MANUEL Voss [facility] Work Phone: Comment on above: Patient Position: Sitting; Cuff Location : Left Arm; Cuff Size: Standard 04-30-2010 09:02-0400 Pulse (Heart Rate) 78 /min MANUEL Voss [facility] Work Phone: Comment on above: Pattern: Regular 04-30-2010 09:02-0400 Respiratory Rate 18 /min MANUEL Voss [facility] Work Phone: Comment on above: Pattern: Unlabored 12-01-2009 14:23-0400 BMI (Body Mass Index) 21.21 kg/m2 Yarelis Fitzpatrick [facility] Work Phone: 12-01-2009 [...] SaO2% (BldA) [Mass fraction] 97 % Bonnie Ptael RN [facility]; [facility] [...] 10:51-0400 Head Circumference 0 cm Yarelis Fitzpatrick [facility] Work Phone: 01-27-2009 10:51-0400 Head Occipital-frontal circumference 0 cm Lizbeth Rothman RN [facility]; [facility] Work Phone: 01-27-2009 10:51-0400 Height 167.64 cm Lizbeth Rothman RN [facility] Work Phone: 01-27-2009 10:51-0400 Pulse (Heart Rate) 80 /min Lizbeth Rothman RN [facility] Work Phone: Comment on above: Pattern: Regular 01-27-2009 10:51-0400 Respiratory Rate 20 /min Lizbeth Rothman RN [facility] Work Phone: Comment on above: Pattern: Unlabored 12-31-2008 14:31-0400 BMI (Body Mass Index) 21.21 kg/m2 [facility] Work Phone: 12-31-2008 14:31-0400 Body Temperature 98.3 [degF] [facility] Work Phone: Comment on above: Method: Oral 12-31-2008 14:31-0400 Body weight 59.62 kg [facility] Work Phone: 12-31-2008 14:31-0400 BP Diastolic 66 mm[Hg] [facility] Work Phone: Comment on above: Patient Position: Sitting; Cuff Location : Left Arm; Cuff Size: Standard 12-31-2008 14:31-0400 BP Systolic 108 mm[Hg] [facility] Work Phone: Comment on above: Patient Position: Sitting; Cuff Location : Left Arm; Cuff Size: Standard 12-31-2008 14:31-0400 BSA (Body Surface Area) 1.67 m2 [facility] Work Phone: 12-31-2008 14:31-0400 Head Circumference 0 cm Yarelis Fitzpatrick [facility] Work Phone: 12-31-2008 14:31-0400 Head Occipital-frontal circumference 0 cm [facility]; [facility] Work Phone: 12-31-2008 14:31-0400 Height 167.64 cm Bethany [facility] Work Phone: 12-31-2008 14:31-0400 Pulse (Heart Rate) 68 /min Bethany [facility] Work Phone: Comment on above: Pattern: Regular 12-31-2008 14:31-0400 Respiratory Rate 18 /min [facility] Work Phone: Comment on above: Pattern: Unlabored 08-27-2008 15:28-0500 BMI (Body Mass Index) 19.85 kg/m2 Bonnie Patel RN [facility] Work Phone: 08-27-2008 [...] BSA (Body Surface Area) 1.63 m2 Lizbeth Rothamn RN [facility] Work Phone: 11-30-2007 [...] Work Phone: 11-19-2007 14:15-0400 Height 167.64 cm Lizebth Rothman RN [facility] Work Phone: 11-19-2007 14:15-0400 Pulse (Heart Rate) 80 /min Lizbeth Rothman RN [facility] Work Phone: Comment on above: Pattern: Regular 11-19-2007 14:15-0400 Respiratory Rate 16 /min Lizbeth Rothman RN [facility] Work Phone: Comment on above: Pattern: Unlabored Encounters Encounter Date Encounter Type Care Provider Facility Start: 03-04-2025 ambulatory Yarelis Fitzpatrick Facilit y:[facility] Start: 02-07-2025 ambulatory Yarelis Fitzpatrick Facilit y:[facility] Start: 01-30-2025 End: 01-30-[address] Yarelis Fitzpatrick DO Work Phone: [facility] Work Phone: Start: 01-30-2025 End: 01-30-[address] Rajat Tarango MD -Laboratory Specimen Work Phone: Start: 01-30-2025 End: 01-30-2025 ambulatory Yarelis Fitzpatrick Facility:[facility] Start: 01-11-2025 End: 01-11-[address] Yarelis Fitzpatrick DO Work Phone: [facility] Work Phone: Start: 01-11-2025 End: 01-11-2025 Patient encounter procedure NAREN Del Real -Laboratory Work Phone: Start: 01-11-2025 End: 01-11-2025 ambulatory Rajat Tarango Facility:[facility] Start: 12-21-2024 End: 12-21-[address] Yarelis Fitzpatrick DO Work Phone: [facility] Work Phone: Start: 12-21-2024 End: 12-21-[address] Yarelis Fitzpatrick DO Work Phone: -Laboratory Work Phone: Start: 12-21-2024 End: 12-21-2024 ambulatory Yarelis Fitzpatrick Facility:[facility] Start: 12-09-2024 End: 12-09-2024 ambulatory MISC DOC [facility] Start: 12-08-2024 End: 12-08-2024 Emergency department patient visit Dr. Yarelis Fitzpatrick DO Work Phone: -Emergency Department Work Phone: Start: 11-25-2024 End: 11-25-[address] Yarelis Fitzpatrick DO Work Phone: [facility] Work Phone: Start: 11-25-2024 End: 11-25-[address] Yordan Vanegas DO -Laboratory, Specimen Work Phone: Start: 11-25-2024 End: 11-25-2024 ambulatory Yarelis Fitzpatrick Facility:[facility] Start: 11-06-2024 End: 11-06-2024 Emergency department patient visit Dr. Yarelis Fitzpatrick DO Work Phone: -Emergency Department Work Phone: Start: 11-01-2024 End: 11-01-2024 Patient encounter procedure NAREN Del Real -[facility] Work Phone: Start: 11-01-2024 End: 11-01-2024 ambulatory Yarelis Fitzpatrick Facility:[facility] Start: 10-15-2024 End: 10-15-[address] Yarelis Fitzpatrick DO Work Phone: [facility] Work Phone: Start: 10-15-2024 End: 10-15-2024 Patient encounter procedure NAREN Del Real -Cat Che, [facility] Work Phone: Start: 10-15-2024 End: 10-15-2024 ambulatory Yarelis Fitzpatrick Facility:[facility] Start: 09-27-2024 End: 09-27-2024 Patient encounter procedure NAREN Del Real -Laboratory Work Phone: Start: 09-27-2024 End: 09-27-2024 ambulatory Yarelis Saezon Facility:[facility] Start: 09-04-2024 End: 09-04-[address] Yarelis Fitzpatrick DO -Laboratory, [facility] [place] Start: 09-04-2024 End: 09-04-2024 ambulatory Kimberly Jacobson Facility:[facility] Start: 09-03-2024 End: 09-03-2024 Patient encounter procedure ROVER TENDER Patience Del Real [facility] Start: 09-03-2024 End: 09-03-2024 ambulatory Yarelis Fitzpatrick Facility:[facility] Start: 08-30-2024 End: 08-30-2024 Patient encounter procedure ROVER TENDER Patience Del Real [facility] Work Phone: Start: 08-30-2024 End: 08-30-2024 ambulatory Alis Mcclain RN NURSE SUPERVISOR C[employer]ER COMPLAINT SERVICE Comment on above: Information Start: 08-28-2024 End: 08-28-2024 Patient encounter procedure Kimberyl Jacobson ROVER TENDER-C -Cat Scan, [facility] Work Phone: Start: 08-27-2024 End: 08-27-[address] Balta Whipple MD -[facility] Start: 08-27-2024 End: 08-28-2024 ambulatory Yarelis Fitzpatrick Facility:[facility] Start: 08-27-2024 End: 08-27-2024 ambulatory Yarelis Fitzpatrick Facility:[facility] Start: 2024 End: 2024 Subsequent hospital visit by physician Dylon Vazquez MD Work Phone: [facility] Comment on above: Common variable immu nodeficiency; Low serum IgG for age; Recurrent infections Start: 2024 End: 2024 ambulatory DYLON VAZQUEZ [facility] Start: 12-18-2023 End: 12-18-2023 ambulatory DYLON VAZQUEZ [facility] Start: 08-17-2023 End: 08-17-[address] Yarelis Fitzpatrick Work Phone: [facility] Work Phone: Start: 08-17-2023 End: 08-17-[address] Yarelis Fitzpatrick [facility] Work Phone: Start: 08-15-2023 End: 08-15-[address] [facility] Fitz[facility] Work Phone: Start: 07-17-2023 Non-patient / Non-visit Dr. Shannon Fitzpatrick Work Phone: [facility] Start: 07-14-2023 End: 07-14-[address] Yarelis Fitzpatrick Work Phone: [facility] Work Phone: Start: 07-14-2023 End: 07-14-[address] Yarelis Fitzpatrick [facility] Phone[facility] Work Phone: Start: 02-13-2023 End: 02-13-2023 Subsequent hospital visit by physician Dylon Vazquez MD Work Phone: [facility] Comment on above: Recurrent infections ; Low serum IgG for age Start: 01-24-2023 End: 01-24-[address] Yarelis Fitzpatrick Work Phone: [facility] Work Phone: Start: 01-24-2023 End: 01-24-[address] Yarelis Fitzpatrick Work Phone: [facility]-Laboratory, Specimen Start: 01-24-2023 End: 01-24-[address] Yarelis Fitzpatrick [facility] Phone: [facility] Start: 01-05-2023 End: 01-11-2023 Office outpatient visit 15 minutes Yarelis Fitzpatrick DO Work Phone: [facility] Start: 01-04-2023 End: 01-04-2023 Phone Encounter Yarelis Amari DO Work Phone: [facility] Start: 01-02-2023 End: 01-02-[address] Yarelis Fitzpatrick Work Phone: [facility] Start: 12-30-2022 ambulatory Yarelis Amari DO [facility] Start: 12-30-2022 End: 12-30-2022 Office outpatient visit 15 minutes Yarelis Amari DO Work Phone: [facility] Start: 12-21-2022 End: 12-21-2022 Phone Encounter Yarelis Amari DO Work Phone: [facility] Start: 12-16-2022 End: 12-16-[address] Yarelis Fitzpatrick Work Phone: [facility] Radiology Start: 12-16-2022 End: 12-18-2022 Office outpatient visit 25 minutes Yarelis Amari DO Work Phone: [facility] Start: 12-05-2022 End: 12-05-2022 Office outpatient visit 10 minutes Yarelis Amari DO Work Phone: [facility] Start: 11-08-2022 End: 11-08-2022 Phone Encounter Yarelis Amari DO Work Phone: [facility] Start: 11-06-2022 End: 11-07-2022 Emergency department patient visit [facility] Start: 11-06-2022 End: 11-06-2022 Patient encounter procedure Abrahan Peterson APRN.CNP Work Phone: [facility] Comment on above: Sinobronchitis (Prim juliana [...] Internal Medicine Start: 04-26-2022 End: 04-26-2022 ambulatory [facility] Work Phone: Start: 04-26-2022 End: 04-26-2022 Patient encounter procedure [facility]Rad[facility], [facility] Start: 04-26-2022 End: 05-03-2022 Office outpatient visit 15 minutes Yarelis Amari DO Work Phone: [facility] Start: 04-08-2022 End: 04-08-2022 ambulatory [facility] Work Phone: Start: 04-08-2022 End: 04-08-2022 Patient encounter procedure [facility]Outpatient Breast Imaging Start: 02-22-2022 End: 02-22-2022 Office outpatient visit 10 minutes Yarelis Amari DO Work Phone: [facility] Start: 01-23-2022 End: 01-23-2022 Patient encounter procedure Abrahan Peterson APRN.SENIOR BENEFITS SPECIALIST Work Phone: [facility] Comment on above: Lower resp. tract in fection (Primary Dx); Conjunctivitis of both eyes, unspecified conjunctivitis type Start: 10-15-2021 End: 10-15-2021 Office outpatient visit 15 minutes Yarelis Amari DO Work Phone: [facility] Start: 08-11-2021 End: 08-11-2021 Subsequent hospital visit by physician Xr [facility] Work Phone: Radiology Comment on above: Cough [...] 03-04-2020 End: 03-04-2020 Annotation/Addendum Yarelis Amari [facility] Start: 02-28-2020 End: 02-28-2020 Annotation/Addendum Yarelis Amari [facility] Start: 01-10-2020 End: 01-10-2020 Office outpatient visit 15 minutes Yarelis Amari [facility] Start: 01-07-2020 End: 01-07-2020 Annotation/Addendum Yarelis Amari [facility] Start: 12-30-2019 End: 12-30-2019 Office outpatient visit 15 minutes Yarelis Amari [facility] Start: 12-24-2019 End: 12-24-2019 Office outpatient visit 15 minutes Yarelis Amari [facility] Start: 12-23-2019 End: 12-23-2019 Annotation/Addendum Yarelis Amari [facility] Start: 12-18-2019 End: 12-24-2019 Office outpatient visit 40 minutes Yarelis Morrison [facility] Start: 12-16-2019 End: 12-16-2019 Annotation/Addendum Yarelis Morrison [facility] Start: 12-16-2019 End: 12-16-2019 Office [...] 12-01-2009 Office outpatient visit 25 minutes Yarelis Morrison [facility] Start: 10-02-2009 End: 10-02-2009 Patient [...] 11-20-2007 End: 11-20-2007 Historical Summary Yarelis Morrison [facility] Start: 11-19-2007 End: 11-19-2007 Patient [...] Dajuan Fitzpatrick DO Work Phone: Start: 09-04-2024 Wolid-2-Lcqpholaixt measurement Dr. Briseida Fitzpatrick DO Work Phone: Comment on above: [employer] Electrochemiluminescen ce Immunoassay(ECLIA)Values obtained with different assay methods or kits cannotbe used interchangeably. Results cannot be interpreted asabsolute evidence of the presence or absence of malignantdisease.This test is not interpretable in females.Performed at: [employer] [address] [id number] Director: Ramsey Oleary PhD, Phone: [phone] Start: 09-04-[address] Bubba [...] Visit Report Procedure Note: See Note; NOTES: [facility] [place] [address] [place] [address] OFFICE VISIT Date of Service: 01/24/23 MR#: [id number] Acct: [id number] Name: OFE GIMENEZ Rep #: [id number] : 1975 Provider: Dr. Rakesh Meeks DO Age/Sex: 47/F Location: [facility] Status: Signed Assessment and Plan Assessment and Plan (1) Bronchiectasis: Status: Acute Plan: The patient presented today for the evaluation of a CT chest which demonstrated bilateral bronchiectasis and apical scarring. The patient has a history of frequent hospitalizations for pneumonia. Her PCP recently referred her to a local medical reviewer as she was noted to have an [...] after she has been evaluated by the plate keeper. The patient may require a prolonged antibiotic [...] referred to Dr. Vazquez of immunology in [place]. She is currently scheduled to see the [...] air Intake Visit Reasons: Abnormal CT scan Public Works Technician Required: No DME Vendor: n/a Accompanied by: [...] WITH Contrast Procedure Note: See Note; NOTES: [facility] Imaging Services [address] [place] [address] Chest WITH Contrast MR#: [id number] Acct: [id number] Name: OFE GIMENEZ Rep #: [id number] : 1975 F 47 From: Ugo Oakes MD PCP: Dr. Yarelis Fitzpatrick DO Status: REG CLI Study: Chest WITH Contrast Date of Exam: 01/02/23 Exam# [id number] Ordering Dr: Heydi Meier DO INDICATION: Cough. [...] THYROID: No thyroid lesions within the study [id number]. HEART AND PERICARDIUM: Heart size is normal. [...] 4:28 EDT Reading Location ID and State: [facility] / [place] Tel , Service support , CC: Dr. Heydi Meier DO; Dr. Yarelis Fitzpatrick DO Veneer Marker: Signed Heydi Meier DO Work Phone: Start: 01-02-2023 CT of thorax with contrast Dr. Yarelis Fitzpatrick Work Phone: Start: 12-16-2022 End: 12-17-2022 Chest PA and Lateral Procedure Note: See Note; NOTES: [facility] Radiology [address] [place] [address] Chest PA and Lateral MR#: [id number] Acct: [id number] Name: OFE GIMENEZ Rep #: [id number] : 1975 F 47 From: Yissel Caldwell MD PCP: Dr. Yarelis Fitzpatrick DO Status: DEP AMB Study: Chest PA and Lateral Date of Exam: 12/16/22 Exam# [id number] Ordering Dr: Heydi Meier DO We are [...] Heydi Meier DO; Dr. Yarelis Fitzpatrick DO Veneer Marker: Signed Heydi Meier DO Work Phone: Start: 12-16-2022 Plain chest X-ray Dr. Yarelis Fitzpatrick Work Phone: Start: 11-06-2022 End: 11-07-2022 Abdomen/Pelvis without Cont Procedure Note: See Note; NOTES: [facility] Imaging Services [address] [place] [address] Abdomen/Pelvis without Cont MR#: [id number] Acct: [id number] Name: OFE GIMENEZ Rep #: [id number] : 1975 F 47 From: Rao pinedo MD PCP: Dr. Yarelis Fitzpatrick DO Status: REG ER Study: Abdomen/Pelvis without Cont Date of Exam: 10/19 05/13 Exam# [id number] Ordering Dr: Adelfo Solis DO EXAM: CT [...] reconstruction technique. This report was created using [employer] report generation technology. RADIATION DOSE: Total DLP: [...] bowel obstruction or diverticulitis. Electronically Signed: Rao Crater MD at 0:01 EDT Reading Location ID and State: [facility] / [place] Tel , Service support , CC: Dr. Adelfo Solis DO; Dr. Yarelis Fitzpatrick DO Veneer Marker: Signed Yarelis Fitzpatrick DO Work Phone: Start: 11-06-2022 CT of abdomen and pelvis without contrast Start: 11-06-2022 End: 11-07-2022 Emergency Department Summary Procedure Note: See Note; NOTES: [facility] Medical Records Department [address] [place] [address] Emergency Department Summary 11/06/22 MR#: [id number] Acct: [id number] Name: OFE GIMENEZ Rep #: [id number] : 1975 47 From: Adelfo Solis DO [...] % (Auto) 66.8 Lymph % (Auto) 25.4 Miller % (Auto) 6.8 Eos % (Auto) 0.0 [...] Color Urine Clarity Urine pH Ur Specific Misenheimer Urine Protein Urine Glucose (UA) Urine Ketones Urine Occult Blood Urine Nitrite Urine Bilirubin Urine Urobilinogen Ur Leukocyte Esterase Urine RBC Urine WBC Ur Squamous Epith Cells Amorphous Sediment Urine Bacteria Urine Mucus 11/06/22 22:27 WBC RBC Hgb Hct MCV MCH MCHC RDW Std Deviation RDW Coeff of Mendy Plt Count MPV Immature Gran % (Auto) Neut % (Auto) Lymph % (Auto) Miller % (Auto) Eos % (Auto) Baso % (Auto) Absolute Neuts (auto) Absolute Lymphs (auto) Nucleated RBC % Sodium Potassium Chloride Carbon Dioxide Anion Gap BUN Creatinine Estim Creat Clear Calc Est GFR (MDRD) Af Amer Est GFR (MDRD) Non-Af BUN/Creatinine Ratio Glucose Calcium Serum , Qual Urine Color Yellow Urine Clarity Sl. Cloudy Urine pH 6.5 Ur Specific Misenheimer 1.020 Urine Protein 30 H Urine Glucose [...] your Primary Care Provider. Call [facility] ([phone]) or report to the closest Emergency Room. Call 911 if necessary. 11/07/22 0041 <Electronically signed by Adelfo Solis DO> Cosigner Signature (if applicable): CC: Dr. Yarelis Fitzpatrick DO Signed Yarelis Fitzpatrick DO Work Phone: Start: 04-26-2022 End: 04-28-2022 Chest PA and Lateral Procedure Note: See Note; NOTES: [facility] Imaging Services [address] [place] [address] Chest PA and Lateral MR#: [id number] Acct: [id number] Name: OFE GIMENEZ Rep #: [id number] : 1975 F 46 From: Mónica Werner MD PCP: Dr. Yarelis Fitzpatrick DO Status: REG CLI Study: Chest PA and Lateral Date of Exam: 04/26/22 Exam# [id number] Ordering Dr: Kimberly Jacobson ROVER TENDER-C STUDY: X-RAY CHEST REASON FOR EXAM: Female, [...] 4:43 EDT Reading Location ID and State: [address] [place] [address] , Service support , CC: ROVER TENDER-C Kimberly Jacobson; Dr. Yarelis Fitzpatrick DO Veneer Marker: Signed Yarelis Fitzpatrick DO Work Phone: Start: 04-26-2022 Plain chest X-ray Start: 04-08-2022 Screening mammography Start: 04-08-2022 End: 04-08-2022 SCRN MAMM (CAD)W/PIERCE BILAT Procedure Note: See Note; NOTES: [facility] Imaging Services [address] [place] [address] SCRN MAMM (CAD)W/PIERCE BILAT MR#: [id number] Acct: [id number] Name: OFE GIMENEZ Rep #: [id number] : 1975 F 46 From: Luis doherty MD PCP: Dr. Yarelis Fitzpatrick, DO Status: REG CLI Study: SCRN MAMM (CAD)W/PIERCE BILAT Date of Exam: 03/21 05/12 Exam# [id number] Ordering Dr: Redd Boss MD MAMMOGRAPHY - [...] delay biopsy of a clinically suspicious abnormality. [id number] Electronically Signed: Luis Rossi MD at 9:29 EDT , CC: Dr. Redd Boss MD; Dr. Yarelis Fitzpatrick DO Veneer Marker: Signed Yarelis Fitzpatrick DO Work Phone: Start: 08-11-2021 Radiologic exam chest 2 views Len Aaron NAJERA.SENIOR BENEFITS SPECIALIST Work Phone: Start: 04-01-2021 End: 04-01-2021 Breast Limited Unilateral Comments: See Note; NOTES: [facility] Imaging Services [address] [place] [address] Breast Limited Unilateral MR#: [id number] Acct: [id number] Name: OFE GIMENEZ Rep #: [id number] : 1975 F 45 From: Luis doherty MD PCP: Dr. Yarelis Fitzpatrick DO Status: REG CLI Study: Breast Limited Unilateral Date of Exam: Exam# [id number] Ordering Dr: Redd Boss MD STUDY: ULTRASOUND [...] Redd Boss MD; Dr. Yarelis Fitzpatrick DO Veneer Marker: Signed Yarelis Fitzpatrick DO Work Phone: Start: 03-30-2021 End: 03-31-2021 SCRN MAMM (CAD)W/PIERCE BILAT Comments: See Note; NOTES: [facility] Imaging Services [address] [place] [address] SCRN MAMM (CAD)W/PIERCE BILAT MR#: [id number] Acct: [id number] Name: OFE GIMENEZ Rep #: [id number] : 1975 F 45 From: Luis doherty MD PCP: Dr. Yarelis Fitzpatrick DO Status: PRE CLI Study: SCRN MAMM (CAD)W/PIERCE BILAT Date of Exam: 03/21 Exam# [id number] Ordering Dr: Redd Boss MD MAMMOGRAPHY - [...] delay biopsy of a clinically suspicious abnormality. [id number] Electronically Signed: Luis Rossi MD at 8:20 EDT , Service support , CC: Dr. Redd Boss MD; Dr. Yarelis Fitzpatrick DO Veneer Marker: Signed Yarelis Fitzpatrick DO Work Phone: Start: 09-12-2020 End: 09-12-2020 Discharge Instruction Comments: See Note; NOTES: [facility] Medical Records Department [address] [place] [address] Discharge Instruction 09/12/20 MR#: [id number] Acct: [id number] Name: OFE GIMENEZ Rep #: [id number] : 1975 45 From: Isac Middleton MD [...] your Primary Care Provider. Call Doctors [facility] ([phone]) or report to the closest Emergency Room. Call 911 if necessary. 09/12/20 1704 <Electronically signed by Isac Middleton MD> Date Isac Middleton MD Cosigner Signature (If Indicated): Date CC: DO Yarelis Amor Start: 09-12-2020 End: 09-12-2020 Emergency Department Summary Comments: See Note; NOTES: [facility] Medical Records Department [address] [place] [address] Emergency Department Summary 09/12/20 MR#: [id number] Acct: [id number] Name: OFE GIMENEZ Rep #: [id number] : 1975 45 From: Isac Middleton MD [...] pneumonia Leukocytosis This note was generated with [employer]en[employer]k dictation software. It may contain incorrect words, [...] your Primary Care Provider. Call [facility] ([phone]) or report to the closest Emergency Room. Call 911 if necessary. 09/12/20 1704 <Electronically signed by Isac Middleton MD> Date Isac Middleton MD Cosigner Signature (If Indicated): Date CC: DO Yarelis Amor Start: 09-12-2020 End: 09-12-2020 Chest 1 View (Portable) Comments: See Note; NOTES: [facility] Imaging Services [address] [place] [address] Chest 1 View (Portable) MR#: [id number] Acct: [id number] Name: OFE GIMENEZ Rep #: [id number] : 1975 F 45 From: David Loyola DO PCP: Dr. Yarelis Fitzpatrick DO Status: PRE ER Study: Chest 1 View (Portable) Date of Exam: 09/12/20 Exam# [id number] Ordering Dr: Isac Middleton MD STUDY: X-RAY [...] David Loyola DO at 11:24 EST Tel [phone], Service support , CC: Dr. Isac Middleton MD; Dr. Yarelis Fitzpatrick DO Veneer Marker: Signed Yarelis Fitzpatrick Start: 12-23-2019 End: 12-23-2019 Chest WITH Contrast Comments: See Note; NOTES: [facility] Imaging Services [address] [place] [address] Chest WITH Contrast MR#: [id number] Acct: [id number] Name: OFE GIMENEZ Rep #: [id number] : 1975 F 44 From: Luis doherty MD PCP: Yarelis Fitzpatrick DO Status: REG CLI Study: Chest WITH Contrast Date of Exam: 12/23/19 Exam# [id number] Ordering Dr: Katia Desai ROVER TENDERDianna STUDY: CT CHEST WITH CONTRAST REASON FOR [...] , CC: DARRYN Desai; Yarelis Fitzpatrick DO Veneer Marker: Signed Katia Desai Work Phone: H/O: section Section As juliana Morrow TRIAGE ASSISTANT Comment on above: H/O: section Section Mo anna Huynh LPN Comment on above: H/O: section Section Ja rosa Sorensen SQL SERVER BI DEVELOPER Comment on above: H/O: section Section Fermin Calderon MA Comment on above: H/O: section Section Mo anna Lino TRIAGE ASSISTANT Comment on above: H/O: section Section Shannon thakkar Shawn SQL SERVER BI DEVELOPER Comment on above: H/O: section Section Ch natividad Gerardohyun SQL SERVER BI DEVELOPER Comment on above: H/O: section Section Ch natividad Xochilt SQL SERVER BI DEVELOPER Comment on above: H/O: section Section An martina Michelle TRIAGE ASSISTANT Comment on above: H/O: section Section Ch natividad Gerardohyun SQL SERVER BI DEVELOPER Comment on above: H/O: section Section Radha Matute MA Comment on above: Investigation of tra nsfusion reaction Dr. Yarelis Fitzpatrick Work Phone: Respiratory microbial culture Dr. Yarelis Fitzpatrick Work Phone: Plan of Treatment Date Care Activity Detail Author Start: 01-30-2025 Respiratory microbial culture Respiratory Culture [facility] Start: 01-11-2025 Respiratory microbial culture Respiratory Culture [facility] Start: 12-09-2024 End: 12-09-2024 Patient encounter procedure 12/09/2024 10:40 AM EDT Office Visit [facility] [place] [address] [place] [address] [place] [address] 6 month follow up [facility] Comment on above: 6 month follow up Start: 12-09-2024 Measurement of respiratory function [facility] Start: 12-08-2024 [facility] Start: 11-06-2024 End: 11-06-2024 [facility] Start: 11-06-2024 Streptococcus pneumoniae antigen assay [facility] Start: 11-06-2024 [facility] Start: 11-06-2024 Bacteria identified in Blood by Culture Blood Culture [facility] Start: 11-06-2024 Legionella Antigen Legionella Antigen [facility] Start: 11-06-2024 Microscopic observation [Identifier] in Unspecified specimen by Gram stain [facility] Start: 11-06-2024 Respiratory Culture Respiratory Culture [facility] Start: 11-06-2024 Streptococcus pneumoniae Antigen (M Streptococcus pneumoniae Antigen (M [facility] Start: 11-01-2024 Patient referral [facility] Work Phone: Start: 04-21-2024 Covid-19 Vaccine ( season) Covid-19 Vaccine ( season) [facility] Start: 04-21-2024 FLU (#1) FLU (#1) [facility] Start: 04-21-2024 Influenza vaccination Influenza Vaccine (#1) [facility] Start: 2023 Pneumococcal Vaccine: 50+ (2 of 2 - PCV) Pneumococcal Vaccine: 50+ (2 of 2 - PCV) [facility] Start: 2023 Shingrix Vaccine (1 of 2) Shingrix Vaccine (1 of 2) [facility] Start: 04-21-2023 FLU (Season Ended) FLU (Season Ended) [facility] Start: 01-05-2023 Procedure Education Eprescribed prescriptions [...] antb titer ea antibody P-ANCA & C-ANCA (54107) [facility]; [facility] Work Phone: Start: 12-16-2022 Blood count complete auto&auto difrntl wbc CBC W/AUTO DIFF WBC (19060) [facility]; [facility] Work Phone: Start: 12-16-2022 Comprehensive metabolic panel METABOLIC PANEL, COMPREHENSIVE (85967) [facility]; [facility] Work Phone: Start: 12-16-2022 Protein total xcpt refractometry urine UPEP (09882) [facility]; [facility] Work Phone: Start: 12-16-2022 Protein electrophoretic fractj&quantj serum SPEP (53832) [facility]; [facility] Work Phone: Start: 12-16-2022 Assay of gammaglobulin ige Immunoglobulins, Quantitative, IgA,IgE, IgG, IgM (36474) [facility]; [facility] Work Phone: Start: 12-16-2022 Lactate dehydrogenase ldh LDH (LD) (LACTATE DEHYDROGENASE) (74244) [facility]; [facility] Work Phone: Start: 12-16-2022 Blood count reticulocyte automated RETICULOCYTE COUNT (67854) [facility]; [facility] Work Phone: Start: 12-16-2022 Iron binding capacity Iron Binding Capacity (TIBC) (27450) [facility]; [facility] Work Phone: Start: 12-16-2022 Assay of ferritin Ferritin (06971) [facility]; [facility] Work Phone: Start: 12-16-2022 Assay of iron Iron (17634) [facility]; [facility] Work Phone: Start: 12-16-2022 Cyanocobalamin vitamin b-12 Vitamin B-12 (cyanocobalamin) (34046) [facility]; [facility] Work Phone: Start: 12-05-2022 Assay of gammaglobulin ige Immunoglobulins Iga/Ige/Igg/Igm (GAME) (48484) [facility]; [facility] Work Phone: Start: 11-07-2022 Patient discharge [facility] Start: 10-14-2022 Procedure Education Eprescribed prescriptions (G8553) [...] Phone: Start: 08-21-2022 DEPRESSION ASSESSMENT DEPRESSION ASSESSMENT [facility] Start: 2022 Procedure Education Eprescribed prescriptions (G8553) [facility]; [facility] Work Phone: Start: 04-26-2022 Procedure Education Eprescribed prescriptions (G8553) [facility]; [facility] Work Phone: Start: 04-21-2022 Influenza vaccination [facility] Start: 02-22-2022 Procedure Education Eprescribed prescriptions (G8553) [...] Iaadiadoo influenza 2019 Novel Coronavirus (COVID-19), MICHELLE (32206) [facility]; [facility] Work [...] gammaglobulin iga igd igg igm each IGA/IGD/IGG/IGM-EACH (83181) [facility] Work Phone: Comment on above: send all labs to Dr. villeda and emelina Start: 12-30-2019 Fluorescent nonnfct agt antb screen ea antibody FLURESCNT ANTIB SCRN EA (24320) celiac profile [facility] Work Phone: Start: 12-30-2019 Immunoassay analyte qual/semiqual multiple step IMMUNOASSAY, ANALYTE (NON-INFECT) (79541) celiac profile [facility] Work Phone: Start: 12-24-2019 Assay of iron Iron (67177) [facility]; [facility] Work Phone: Start: 12-24-2019 Iron [Mass/Vol] Iron (98057) [facility] Work Phone: Start: 12-24-2019 Tb cell mediated antign respnse gamma interferon QuantiFERON-TB Gold Plus (QFT-Plus) (91148) [facility] Work Phone: Start: 12-16-2019 SARS-CoV-2 Antibody, IgG SARS-CoV-2 Antibody, IgG [facility] Work Phone: Start: 12-16-2019 Procedure Education Eprescribed prescriptions (G8553) [facility] Work Phone: Start: 12-11-2019 Procedure Education Eprescribed prescriptions (G8553) [facility] Work Phone: Start: 12-11-2019 Provider Instructions for Treatment [facility] Work Phone: Start: 2018 COLOGUARD (FIT-DNA) COLOGUARD (FIT-DNA) [facility] Start: 2018 Colonoscopy COLONOSCOPY [facility] Start: 2018 COLORECTAL CANCER SCREENING COLORECTAL CANCER SCREENING [facility] Start: [address] COLONOGRAPHY [facility] Start: 2018 DIABETES SCREEN DIABETES SCREEN [facility] Start: 2018 Diabetes Screening Diabetes Screening [facility] Start: 2018 FECAL OCCULT BLOOD FECAL OCCULT BLOOD [facility] Start: 2018 Lipid panel Lipid Screening [facility] Start: 2018 LIPID SCREEN LIPID SCREEN [facility] Start: 2018 Screening for malignant neoplasm of colon [facility] Start: 2018 SIGMOIDOSCOPY SIGMOIDOSCOPY [facility] Start: 2013 Mammography MAMMOGRAM [facility] Start: 2013 Screening for malignant neoplasm of breast Mammogram Screening [facility] Start: 02-04-2013 Provider Instructions for Treatment [facility] Work Phone: Start: 06-01-2010 Provider Instructions for Treatment [facility] Work Phone: Start: 06-01-2010 Cul bact xcpt urine blood/stool aerobic isol CULTURE, SPUTUM (61616) [facility] Work Phone: Start: 04-30-2010 [...] Start: 11-19-2007 Glucose [Mass/Vol] Glucose, PP/2 Hour (76485) [facility] Work Phone: Start: 11-19-2007 Glucose quantitative blood xcpt reagent strip Glucose, PP/2 Hour (97374) [facility]; [facility] Work Phone: Start: 11-19-2007 Lipid panel LIPID PANEL (93557) [facility] Work Phone: Start: 2003 HPV TESTING HPV TESTING [facility] Start: 1994 Microscopic observation [Identifier] in Cervix by Cyto stain Pap Smear [facility] Start: 1994 PAP TESTING PAP TESTING [facility] Start: 1994 Screening for malignant neoplasm of cervix Cervical Cancer Screening [facility] Start: 1992 Hepatitis B (1 of 3 - 19+ 3-dose series) Hepatitis B (1 of 3 - 19+ 3-dose series) [facility] Start: 1992 Hepatitis B Vaccine (1 of 3 - 19+ 3-dose series) Hepatitis B Vaccine (1 of 3 - 19+ 3-dose series) [facility] Start: 1992 Urine microalbumin profile [facility] Start: 1991 Anxiety Screening Anxiety Screening [facility] Start: 1991 Depression Screening Depression Screening [facility] Start: 1991 HEPATITIS C SCREENING HEPATITIS C SCREENING [facility] Start: 1991 Hepatitis C screening Hepatitis C Screening [facility] Start: 1991 HIV SCREENING HIV SCREENING [facility] Start: 1991 HIV screening HIV Screening [facility] Start: 1989 MenB (1 of 2 - MenB 2-Dose Series Bexsero) MenB (1 of 2 - MenB 2-Dose Series Bexsero) [facility] Start: 1986 Varicella (1 of 2 - 13+ 2-dose series) Varicella (1 of 2 - 13+ 2-dose series) [facility] Start: 1985 Adult depression screening assessment DEPRESSION SCREENING [facility] Start: 1980 Tetanus Diphtheria and Pertussis Vaccines (1 - Tdap) Tetanus Diphtheria and Pertussis Vaccines (1 - Tdap) [facility] Start: 1978 COVID-19 (#1) COVID-19 (#1) [facility] Start: 1978 COVID-19 VACCINE (#1) COVID-19 VACCINE (#1) [facility] Start: 1974 MMR (1 of 1 - Standard series) MMR (1 of 1 - Standard series) [facility] Start: 1974 Varicella (1 of 2 - 2-dose childhood series) Varicella (1 of 2 - 2-dose childhood series) [facility] Start: 1973 COVID-19 (#1) COVID-19 (#1) [facility] Start: 1973 COVID-19 VACCINE (#1) COVID-19 VACCINE (#1) [facility] Start: 1973 HEPATITIS B (1 of 3 - 3-dose series) HEPATITIS B (1 of 3 - 3-dose series) [facility] Bacteria identified in Sputum by Culture [facility] Bacteria identified in Sputum by Respiratory culture [facility] CT Chest WO contrast [facility] Legionella pneumophi la Ag [Presence] in Urine [facility] Lymphocyte Profile Lymphocyte Pr ofile Lab Routine Recurrent infections Low serum IgG for age 0602/13/2023 4:37 PM EDT [facility] Work Phone: Lymphocyte Proliferation, Mitogens Lymphocyte Proliferation, Mitogens Lab Routine Recurrent infections Low serum IgG for age 0602/13/2023 4:37 PM EDT [facility] Measurement of respiratory function [facility] Measurement of respiratory function [facility] Patient Education [facility] Work Phone: Patient referral [facility] Work Phone: S. Pneumo IGG ABS, 2 3 Serotypes S. Pneumo IGG ABS, 23 Serotypes Lab Routine Recurrent infections Low serum IgG for age 0602/13/2023 4:37 PM EDT [facility] Tetanus toxoid, IgG Abs Tetanus toxoid, IgG Abs Lab Routine Recurrent infections Low serum IgG for age 0602/13/2023 4:37 PM EDT [facility] Work Phone: [facility] [...] 23 valent Abrahan Peterson APRN.CNP Work Phone: [facility] Payers Date Payer Category Payer Self-pay [id number] 2022 Unknown [id number] 2021 Unknown [id number] 2020 Unknown [id number] 2019 Unknown 2019 Unknown [employer] PPO [id number] 2019-Present [phone] [address] [place] [address] PPO [id number] 2008 Unknown [id number] 2006 Unknown [id number] 1973 Unknown [id number] [id number] 1973 Unknown [id number] 2.840.1.401161.3.579.2.479 1973 Unknown [id number] 2.840.1.611540.3.579.2.479 1973 Unknown [id number] 2.840.1.995222.3.579.2.479 1973 Unknown [id number] 2.840.1.673388.3.579.2.479 Self-pay SELF PAY ER DEPOSIT [id number] Unknown [facility] [id number] Unknown [id number] [id number] Unknown [id number] 2.16840.1.492924.3.579.2.462 Unknown [id number] 2.16840.1.475718.3.579.2.462 Unknown [id number] 2.16840.1.551693.3.579.2.462 Unknown [id number] 2.16840.1.223743.3.579.2.462 Unknown [id number] 2.16840.1.662545.3.579.2.462 Unknown [id number] 2.16840.1.537342.3.579.2.462 Unknown [id number] 2.16.840.1.369857.3.579.2.462 Unknown [id number] 2.16.840.1.059709.3.579.2.462 Unknown [id number] 2.16.840.1.708189.3.579.2.462 Unknown [id number] 2.16.840.1.641691.3.579.2.462 Unknown [id number] 2.16.840.1.765601.3.579.2.462 Unknown [id number] 2.16.840.1.748658.3.579.2.462 Unknown [id number] 2.16.840.1.286052.3.579.2.462 Unknown [id number] 2.16.840.1.279209.3.579.2.462 Unknown [id number] 2.16.840.1.765793.3.579.2.462 Unknown [id number] 2.16.840.1.444864.3.579.2.462 Social History Date Type Detail Facility Start: 07-25-2020 End: 08-11-2021 Caffeine Use Caffeine Use [facility] Work Phone: Comment on above: qd Light Lives with spouse 2 Dog[employer] Start: 11-04-2011 End: 12-08-2024 Tobacco smoking status NHIS Never smoked tobacco [facility] Start: 01-23-2022 End: 11-06-2022 Alcohol intake Not Asked [facility] Start: 1975 Sex Assigned At Not on file [facility] Start: 01-13-2022 End: 01-23-2022 Exposure to SARS-CoV-2 (event) Not sure [facility] Work Phone: Start: 09-12-2020 End: 08-15-2023 Tobacco smoking status NHIS Unknown if ever smoked [facility] Start: 1975 Sex Assigned At Female [facility] Start: 11-04-2011 End: 11-17-2023 Tobacco use and exposure Smokeless tobacco non-user [facility] Work Phone: Start: 07-25-2020 End: 08-11-2021 Gender identity Not on file [facility] National Score (1-100), lower number is lower risk Not on file [facility] Start: 10-28-2024 End: 12-08-2024 Sex Female (finding) [facility] NEGATED: Highlighted row [facility] NEGATED: Highlighted rowStart: NINF History of tobacco use Passive smoker [facility] Mental Status Date Assessment Result Facility 12-08-2024 Cognitive function Awake;Alert;A ppropriate;Follow s Commands [facility] Work Phone: 11-06-2024 Cognitive function Level Of Cons ciousness Awake;Alert;Appropriate;Follow s Commands [facility] Work Phone: Clinical Notes 05-14-2021 to 12-08-2024 Note Date & Type Note Facility 12-08-2024 Discharge summary [facility] 12-08-2024 Radiology Diagnostic study note [facility] Imaging Services [address] [place], [place] [address] Chest PA and Lateral MR#: [id number] Acct: [id number] Name: OFE GIMENEZ Rep #: [id number] : 1975 F 49 From: Celena Blake MD PCP: Dr. Yarelis Fitzpatrick, DO Status: [place] E ER Study:Chest PA and Lateral Date of Exam: 12/08/24 Exam# [id number] Ordering Dr: Magy Mai MD PROCEDURE: CHEST [...] infiltrate or consolidation is seen. Reading Location: [id number] CC: Dr. Yarelis Fitzpatrick DO; Dr. Mike Mai MD ~ Veneer Marker: Signed [facility] 12-08-2024 Hospital Discharge instructions Additional Instructions 1. Discontinue the azithromycin 2. Start the doxycycline once you fill the prescription 3. Take prednisone until gone 4. 2 puffs of your inhaler every 2-4 hours while awake for the next 3 days. [facility] Work Phone: 11-06-2024 Discharge summary [facility] 11-06-2024 Radiology Diagnostic study note [facility] Services [address] [place] [address] CTA Chest W/WO Contrast MR#: [id number] Acct: [id number] Name: OFE GIMENEZ Rep #: [id number] : 1975 F 49 From: Margarette Gross MD PCP: Dr. Yarelis Fitzpatrick DO Status: RE G ER Study:CTA Chest W/WO Contrast Date of Exam: 11/06/24 Exam# [id number] Ordering Dr: Chico Vanegas DO PROCEDURE: CTA [...] MICHAELROSA CC: Dr. Yordan Vanegas DO; Dr. Yaerlis Fitzpatrick DO ~ Veneer Marker: Signed [facility] 11-06-2024 Discharge summary Note Date/Time November 06, 2024 11:30pm [facility] Medical Records Department [address] [place] [address] Emergency Department Summary 11/06/24 MR#: [id number] Acct: [id number] Name: OFE GIMENEZ Rep #:[id number] : 1975 49 From: Yordan Phillips PCP: [...] follows locally with pulmonology Dr. 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 Vazquez. In September of this year [...] home oxygen. She is a lifelong non-smoker. [facility] Medical History (Updated 11/06/24 @ 23:10 by [...] 77.6 H Lymph % (Auto) 14.8 L Miller % (Auto) 6.4 Eos % (Auto) 0.2 [...] Clarity Clear Urine pH 8.0 Ur Specific Misenheimer 1.010 Urine Protein Negative Urine Glucose (UA) [...] lobe, concerning for multifocal pneumonia. Reading Location: [facility] Initial EKG: Attestation: I personally reviewed [...] Culture, Sputum (Routine) Timeframe: 1 Day Facility: [facility] - Location: Laboratory Ordered By: Dr. Yordan Vanegas Primary Care Provider: Yarelis Fitzpatrick Referrals: Yarelis Fitzpatrick DO [Primary Care Provider] - Rajat Velázquez MD [Med Staff - Active Staff] - As soon as possible (for infectious disease) Print Language: Botswanan Disposition Disposition: Home, Self Care What to do if you have Problems For any increased pain, shortness of breath, bleeding, nausea or vomiting, chestpain, or any unexpected problems, contact your Primary Care Provider. Call [facility] ([phone]) or report to the closest Emergency Room. Call 911 if necessary. 11/06/24 2317 <Electronically signed by Yordan Vanegas DO> Cosigner Signature (if applicable): CC: Dr. Yarelis Fitzpatrick, ~ Signed [facility] Work Phone: 1(834) 100-791903-14-2025 Evaluation note* Diagnosis Onset Date Resolution Status Admit Date Bronchiectasis inactive October 10:52am Immunoglobulin deficiency inactive November 01, 2024 10:52am Mass of upper lobe of right lung shawn ctive November 01, 2024 10:52am [facility] Work Phone: 1(365) 640-731302-26-2025 Radiology Diagnostic study note [facility] Imaging Services [address] [place] [address] [id number] Chest WITH Contrast MR#: [id number] Acct: [id number] Name: OFE GIMENEZ Rep #: [id number] : 1975 F 49 From: Juan Rossi MD PCP: Dr. Yarelis Fitzpatrick DO Status: RE G CLI Study:Chest WITH Contrast Date of Exam: 10/15/24 Exam# [id number] Ordering Dr: Sly Jacobson ROVER TENDER-C PROCEDURE: CHEST WITH CONTRAST REASON FOR EXAM: [...] use of iterative reconstruction technique). Reading Location: [id number] CC: ROVER TENDERDianna Jacobson; Dr. Yarelis Fitzpatrick, DO ~ Veneer Marker: Signed [facility]01-10-2025 Telephone encounter Note* Telephone Encounter - Alis Mcclain RN - 08/30/2024 1:42 PM EST Patient calling with health information: patient requesting health information about how to be seen, reviewed general nursing knowledge information. Patient verbalized understanding of information provided Patient denies any new or worsening symptoms of which a provider is not aware:Yes [facility]01-10-2025 Miscellaneous Notes* Telephone Encounter - Alis Mcclain RN - 08/30/2024 1:42 PM EST Patient calling with health information: patient requesting health information about how to be seen, reviewed general nursing knowledge information. Patient verbalized understanding of information provided Patient denies any new or worsening symptoms of which a provider is not aware:Yes [facility] Evaluation note* Diagnosis Onset Date Resolution Status Admit Date Mass of upper lobe of right lung acute August 30 8:47am Bronchiectasis chronic August 302024 8:47am Immunoglobulin deficiency chronic August 30, 2024 8:47am [facility] Work Phone: 1(225) 948-488601-10-2025 Evaluation note* Diagnosis Onset Date Resolution Status Admit Date Bronchiectasis inactive August 302024 8:47am Immunoglobulin deficiency inactive August 30, 2024 8:47am Mass of upper lobe of right lung inactive August 30 8:47am Bronchiectasis inactive October 10:52am Immunoglobulin deficiency inactive November 01, 2024 10:52am Mass of upper lobe of right lung inactive November 01, 2024 10:52am [facility] Work Phone: 1(187) 890-490211-27-2023 Procedure [facility] 11-07-[address] Solis [facility] November 07, 2022 12:41am Note Date/Time November 06, 2022 11: 09pm [facility] Medical Records Department [address] [place] [address] Emergency Department Summary 11/06/22 MR#: [id number] Acct: [id number] Name: OFE GIMENEZ Rep #:[id number] : 1975 47 From: Adelfo Solis DO [...] % (Auto) 66.8 Lymph % (Auto) 25.4 Miller % (Auto) 6.8 Eos % (Auto) 0.0 [...] Color Urine Clarity Urine pH Ur Specific Misenheimer Urine Protein Urine Glucose (UA) Urine Ketones Urine Occult Blood Urine Nitrite Urine Bilirubin Urine Urobilinogen Ur Leukocyte Esterase Urine RBC Urine WBC Ur Squamous Epith Cells Amorphous Sediment Urine Bacteria Urine Mucus 11/06/22 22:27 WBC RBC Hgb Hct MCV MCH MCHC RDW Std Deviation RDW Coeff of Mendy Plt Count MPV Immature Gran % (Auto) Neut % (Auto) Lymph % (Auto) Miller % (Auto) Eos % (Auto) Baso % (Auto) Absolute Neuts (auto) Absolute Lymphs (auto) Nucleated RBC % Sodium Potassium Chloride Carbon Dioxide Anion Gap BUN Creatinine Estim Creat Clear Calc Est GFR (MDRD) Af Amer Est GFR (MDRD) Non-Af BUN/Creatinine Ratio Glucose Calcium Serum , Qual Urine Color Yellow Urine Clarity Sl. Cloudy Urine pH 6.5 Ur Specific Misenheimer 1.020 Urine Protein 30 H Urine Glucose [...] 0:01 EDT Reading Location ID and State: [facility] / [place] Tel , Service support , Discharge Plan [...] your Primary Care Provider. Call [facility] ([phone]) or report to the closest Emergency Room. Call 911 if necessary. 11/07/22 0041 <Electronically signed by Adelfo Solis DO> Cosigner Signature (if applicable): CC: Dr. Yarelis Fitzpatrick DO ~ Signed [facility] Work Phone: 1(434) 778-580703-19-2023 History of Present illness Narrative* Abrahan Peterson APRN.SENIOR BENEFITS SPECIALIST - 11/06/2022 10:00 AM EDT Subjective HPI [...] TABLET Abrahan Peterson APRN.ANGEL [facility]-2022 NoteHNO ID: [id number] Author: Abrahan Peterson APRN.CNP Service: ? Author Type: Nurse Practitioner Type: Progress Notes Filed: 01/23/2022 10:11 AM Note Text: Subjective HPI HPI Oef Gimenez is a 46 year old female [...] Agrees to plan Declines avs Abrahan Peterson [facility] History of Present illness Narrative* Abrahan Peterson APRN.SENIOR BENEFITS SPECIALIST - 01/23/2022 9:03 AM EDT Subjective HPI [...] avs Abrahan Peterson APRN.CNP [facility]01-08-2022 NoteHNO ID: [id number] Author: Melva Reyna APRN.CNP Service: ? Author [...] have confirmed and edited as necessary, the [facility] Review of Systems Constitutional: Positive [...] in 24-48 hours with results, available on Picwing[employer] - COVID WITH FLUA+B, ROUTINE 4. Acute [...] detail warranting prompt ER evaluation. Melva Reyna APRN.[facility]12-22-2021 NoteHNO ID: [id number] Author: RT Samuel(R) Service: ? Author Type: [...] BY: RT Samuel(R) August 11, 2021 6:58 [facility]12-22-2021 NoteHNO ID: [id number] Author: Len Marinelli APRN.SENIOR BENEFITS SPECIALIST Service: ? Author Type: Nurse Practitioner Type: [...] Patient agreeable to treatment plan. Len Marinelli APRN.[facility]12-22-2021 History of Present illness Narrative* Ruy Torres [...] 11, 2021 6:58 PM documented in this encounterMad[facility]09-24-2021 NoteHNO ID: [id number] Author: Margarito Alston PA-C Service: ? Author Type: Physician Scale Installer Type: Progress Notes Filed: 05/15/2021 9:13 AM [...] have confirmed and edited as necessary, the [facility] Review of Systems Constitutional: Positive [...] testing ordered; Results will be released to [facility] in 24-48 hours Discussed quarantine, social distancing, hand washing/proper hygiene. Rest, fluids, OTC medications discussed -Reviewed red flags (ie chest pain, shortness of breath) with patient and when to seek care sooner. 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 She was prescribed azithromycin. Her fifth dose [...] similar symptoms: Yes Recent Illness/Hospitalization: Yes [facility] Medical History Immunoglobulin deficiency Mass of upper [...] % (Auto) 69.1 Lymph % (Auto) 21.5 Miller % (Auto) 7.8 Eos % (Auto) 0.7 [...] infiltrate or consolidation is seen. Reading Location: [id number] Treatment and Re-Evaluation :: Patient was reexamined [...] have an appointment with her doctor at [facility] tomorrow, Dr. Vazquez she was instructed to discontinue the azithromycin. Discharge Plan Triage Chief Complaint: Chest Other ED Provider: Mike Mai Dx/Rx/DC Orders Clinical Impression: Pneumonia, Acute bronchospasm, Sinus tachycardia seen on corporate controller, Immune deficiency disorder, Elevated blood-pressure reading without [...] for the next 3 days. Print Language: Botswanan Disposition Disposition: Home, Self Care What to do if you have Problems For any increased pain, shortness of breath, bleeding, nausea or vomiting, chestpain, or any unexpected problems, contact your Primary Care Provider. Call [facility] ([phone]) or report to the closest Emergency Room. Call 911 if necessary. 12/08/24 0854 <Electronically signed by Mike Mai MD> Cosigner Signature (if applicable): CC: Dr. Yarelis Fitzpatrick, DO ~ Signed [facility] Work Phone: Evaluation note* Diagnosis Lower resp. tract infection- Primary Other diseases of respiratory system, not elsewhere classified Conjunctivitis of both eyes, unspecified conjunctivitis type documented in this encounter [facility] noteNo assessment information availableWEast [facility] Work Phone: Evaluation note* Diagnosis Sinobronchitis- Primary Unspecified sinusitis (chronic) Bacterial conjunctivitis Other conjunctivitis History of asthma Personal history of other diseases of respiratory system documented in this encounter [facility] note* Diagnosis Onset Date Resolution Status Bronchiectasis acute Immunoglobulin deficiency ac [facility] Work Phone: Evaluation note* Diagnosis Recurrent infections Unspecified infectious and parasitic diseases Low serum IgG for age documented in this encounter [facility]* Diagnosis Onset Date Resolution Status Bronchiectasis chronic Immunoglobulin deficiency [facility] Work Phone: Evaluation note* Diagnosis Cough documented in this encounter [facility] note* Diagnosis Common variable immunodeficiency Low serum IgG for age Recurrent infections Unspecified infectious and parasitic diseases [facility] Name Dates Details How to Access UNXa tion Online using Patient [employer] and [email or web address] Apps Indication:Nonsmoker Start:22-Jan-2021 Instruction Type:Patient Education Patient Instructions Indication:Nonsmoker Start:22-Jan-2021 Instruction Type:Provider Instructions for Treatment Patient Instructions Indication:Nonsmoker Start:12-Oct-2020 Instruction Type:Provider Instructions for Treatment How to Access Health Informa tion Online using Patient Portal and [email or web address] Apps Indication:Nonsmoker Start:12-Oct-2020 Instruction Type:Patient Education Patient Instructions Indication:BMI 21.0-21.9, adult Start:14-Sep-2020 Instruction Type:Provider Instructions for Treatment How to Access Health Informa tion Online using Patient Portal and [employer] Apps Indication:BMI 21.0-21.9, adult Start:14-Sep-2020 Instruction Type:Patient [...] Informa tion Online using Patient Portal and [employer] Apps Indication:Nonsmoker Start:22-Jan-2021 Instruction Type:Patient Education Patient Instructions Indication:Nonsmoker Start:22-Jan-2021 Instruction Type:Provider Instructions for Treatment Patient Instructions Indication:Nonsmoker Start:12-Oct-2020 Instruction Type:Provider Instructions for Treatment How to Access Health Informa tion Online using Patient Portal and [employer] Apps Indication:Nonsmoker Start:12-Oct-2020 Instruction Type:Patient Education Patient Instructions Indication:BMI 21.0-21.9, adult Start:14-Sep-2020 Instruction Type:Provider Instructions for Treatment How to Access Health Informa tion Online using Patient Portal and [employer] Apps Indication:BMI 21.0-21.9, adult Start:14-Sep-2020 Instruction Type:Patient [...] tion Online using Patient Portal and [employer] Apps Indication:Nonsmoker Start:05-Jul-2021 Instruction Type:Patient Education Patient Instructions Indication:Nonsmoker Start:02-Jul-2021 Instruction Type:Provider Instructions for Treatment How to Access Health Informa tion Online using Patient Portal and [employer] Apps Indication:Nonsmoker Start:02-Jul-2021 Instruction Type:Patient Education Patient Instructions Indication:Nonsmoker Start:09-Feb-2021 Instruction Type:Provider Instructions for Treatment How to Access Health Informa tion Online using Patient Portal and [employer] Apps Indication:Nonsmoker Start:09-Feb-2021 Instruction Type:Patient Education How to Access Health Informa tion Online using Patient Portal and [employer] Indication:Nonsmoker Start:22-Jan-2021 Instruction Type:Patient Education Patient Instructions Indication:Nonsmoker Start:22-Jan-2021 Instruction Type:Provider Instructions for Treatment Patient Instructions Indication:Nonsmoker Start:12-Oct-2020 Instruction Type:Provider Instructions for Treatment How to Access Health Informa tion Online using Patient Portal and [employer] Apps Indication:Nonsmoker Start:12-Oct-2020 Instruction Type:Patient Education Patient Instructions Indication:BMI 21.0-21.9, adult Start:14-Sep-2020 Instruction Type:Provider Instructions for Treatment How to Access Health Informa tion Online using Patient Portal and [employer] Apps Indication:BMI 21.0-21.9, adult Start:14-Sep-2020 Instruction Type:Patient [...] tion Online using Patient Portal and [employer] Apps Indication:Nonsmoker Start:15-Oct-2021 Instruction Type:Patient Education Patient Instructions Indication:Nonsmoker Start:05-Jul-2021 Instruction Type:Provider Instructions for Treatment How to Access Health Informa tion Online using Patient Portal and [employer] Apps Indication:Nonsmoker Start:05-Jul-2021 Instruction Type:Patient Education Patient Instructions Indication:Nonsmoker Start:02-Jul-2021 Instruction Type:Provider Instructions for Treatment How to Access Health Informa tion Online using Patient Portal and [employer] Apps Indication:Nonsmoker Start:02-Jul-2021 Instruction Type:Patient Education Patient Instructions Indication:Nonsmoker Start:09-Feb-2021 Instruction Type:Provider Instructions for Treatment How to Access Health Informa tion Online using Patient Portal and [employer] Apps Indication:Nonsmoker Start:09-Feb-2021 Instruction Type:Patient Education How to Access Health Informa tion Online using Patient Portal and [employer] Apps Indication:Nonsmoker Start:22-Jan-2021 Instruction Type:Patient Education Patient Instructions Indication:Nonsmoker Start:22-Jan-2021 Instruction Type:Provider Instructions for Treatment Patient Instructions Indication:Nonsmoker Start:12-Oct-2020 Instruction Type:Provider Instructions for Treatment How to Access Health Informa tion Online using Patient Portal and [employer] Apps Indication:Nonsmoker Start:12-Oct-2020 Instruction Type:Patient Education Patient Instructions Indication:BMI 21.0-21.9, adult Start:14-Sep-2020 Instruction Type:Provider Instructions for Treatment How to Access Health Informa tion Online using Patient Portal and [employer] Apps Indication:BMI 21.0-21.9, adult Start:14-Sep-2020 Instruction Type:Patient [...] tion Online using Patient Portal and [employer] Apps Indication:Nonsmoker Start:22-Feb-2022 Instruction Type:Patient Education Patient Instructions Indication:Nonsmoker Start:15-Oct-2021 Instruction Type:Provider Instructions for Treatment How to Access Health Informa tion Online using Patient Portal and [employer] Apps Indication:Nonsmoker Start:15-Oct-2021 Instruction Type:Patient Education Patient Instructions Indication:Nonsmoker Start:05-Jul-2021 Instruction Type:Provider Instructions for Treatment How to Access Health Informa tion Online using Patient Portal and [employer] Apps Indication:Nonsmoker Start:05-Jul-2021 Instruction Type:Patient Education Patient Instructions Indication:Nonsmoker Start:02-Jul-2021 Instruction Type:Provider Instructions for Treatment How to Access Health Informa tion Online using Patient Portal and [employer] Apps Indication:Nonsmoker Start:02-Jul-2021 Instruction Type:Patient Education Patient Instructions Indication:Nonsmoker Start:09-Feb-2021 Instruction Type:Provider Instructions for Treatment How to Access Health Informa tion Online using Patient Portal and [employer] Apps Indication:Nonsmoker Start:09-Feb-2021 Instruction Type:Patient Education How to Access Health Informa tion Online using Patient Portal and [employer] Apps Indication:Nonsmoker Start:22-Jan-2021 Instruction Type:Patient Education Patient Instructions Indication:Nonsmoker Start:22-Jan-2021 Instruction Type:Provider Instructions for Treatment Patient Instructions Indication:Nonsmoker Start:12-Oct-2020 Instruction Type:Provider Instructions for Treatment How to Access Health Informa tion Online using Patient Portal and [employer] Apps Indication:Nonsmoker Start:12-Oct-2020 Instruction Type:Patient Education Patient Instructions Indication:BMI 21.0-21.9, adult Start:14-Sep-2020 Instruction Type:Provider Instructions for Treatment How to Access Health Informa tion Online using Patient Portal and [employer] Apps Indication:BMI 21.0-21.9, adult Start:14-Sep-2020 Instruction Type:Patient [...] Informa tion Online using Patient Portal and [employer] Apps Indication:Nonsmoker Start:22-Feb-2022 Instruction Type:Patient Education Patient Instructions Indication:Nonsmoker Start:15-Oct-2021 Instruction Type:Provider Instructions for Treatment How to Access Health Informa tion Online using Patient Portal and [employer] Apps Indication:Nonsmoker Start:15-Oct-2021 Instruction Type:Patient Education Patient Instructions Indication:Nonsmoker Start:05-Jul-2021 Instruction Type:Provider Instructions for Treatment How to Access Health Informa tion Online using Patient Portal and [employer] Apps Indication:Nonsmoker Start:05-Jul-2021 Instruction Type:Patient Education Patient Instructions Indication:Nonsmoker Start:02-Jul-2021 Instruction Type:Provider Instructions for Treatment How to Access Health Informa tion Online using Patient Portal and [employer] Apps Indication:Nonsmoker Start:02-Jul-2021 Instruction Type:Patient Education Patient Instructions Indication:Nonsmoker Start:09-Feb-2021 Instruction Type:Provider Instructions for Treatment How to Access Health Informa tion Online using Patient Portal and [employer] Apps Indication:Nonsmoker Start:09-Feb-2021 Instruction Type:Patient Education How to Access Health Informa tion Online using Patient Portal and [employer] Apps Indication:Nonsmoker Start:22-Jan-2021 Instruction Type:Patient Education Patient Instructions Indication:Nonsmoker Start:22-Jan-2021 Instruction Type:Provider Instructions for Treatment Patient Instructions Indication:Nonsmoker Start:12-Oct-2020 Instruction Type:Provider Instructions for Treatment How to Access Health Informa tion Online using Patient Portal and [employer] Apps Indication:Nonsmoker Start:12-Oct-2020 Instruction Type:Patient Education Patient Instructions Indication:BMI 21.0-21.9, adult Start:14-Sep-2020 Instruction Type:Provider Instructions for Treatment How to Access Health Informa tion Online using Patient Portal and [employer] Apps Indication:BMI 21.0-21.9, adult Start:14-Sep-2020 Instruction Type:Patient [...] tion Online using Patient Portal and [employer] Apps Indication:BMI 23.0-23.9, adult Start:10-Jun-2022 Instruction Type:Patient Education Patient Instructions Indication:Nonsmoker Start:26-Apr-2022 Instruction Type:Provider Instructions for Treatment How to Access Health Informa tion Online using Patient Portal and [employer] Apps Indication:Nonsmoker Start:26-Apr-2022 Instruction Type:Patient Education Patient Instructions Indication:Nonsmoker Start:22-Feb-2022 Instruction Type:Provider Instructions for Treatment How to Access Health Informa tion Online using Patient Portal and [employer] Apps Indication:Nonsmoker Start:22-Feb-2022 Instruction Type:Patient Education Patient Instructions Indication:Nonsmoker Start:15-Oct-2021 Instruction Type:Provider Instructions for Treatment How to Access Health Informa tion Online using Patient Portal and [employer] Apps Indication:Nonsmoker Start:15-Oct-2021 Instruction Type:Patient Education Patient Instructions Indication:Nonsmoker Start:05-Jul-2021 Instruction Type:Provider Instructions for Treatment How to Access Health Informa tion Online using Patient Portal and [employer] Apps Indication:Nonsmoker Start:05-Jul-2021 Instruction Type:Patient Education Patient Instructions Indication:Nonsmoker Start:02-Jul-2021 Instruction Type:Provider Instructions for Treatment How to Access Health Informa tion Online using Patient Portal and [employer] Apps Indication:Nonsmoker Start:02-Jul-2021 Instruction Type:Patient Education Patient Instructions Indication:Nonsmoker Start:09-Feb-2021 Instruction Type:Provider Instructions for Treatment How to Access Health Informa tion Online using Patient Portal and [employer] Apps Indication:Nonsmoker Start:09-Feb-2021 Instruction Type:Patient Education How to Access Health Informa tion Online using Patient Portal and [employer] Apps Indication:Nonsmoker Start:22-Jan-2021 Instruction Type:Patient Education Patient Instructions Indication:Nonsmoker Start:22-Jan-2021 Instruction Type:Provider Instructions for Treatment Patient Instructions Indication:Nonsmoker Start:12-Oct-2020 Instruction Type:Provider Instructions for Treatment How to Access Health Informa tion Online using Patient Portal and [employer] Apps Indication:Nonsmoker Start:12-Oct-2020 Instruction Type:Patient Education Patient Instructions Indication:BMI 21.0-21.9, adult Start:14-Sep-2020 Instruction Type:Provider Instructions for Treatment How to Access Health Informa tion Online using Patient Portal and [employer] Apps Indication:BMI 21.0-21.9, adult Start:14-Sep-2020 Instruction Type:Patient [...] tion Online using Patient Portal and [employer] Apps Indication:BMI 23.0-23.9, adult Start:10-Jun-2022 Instruction Type:Patient Education Patient Instructions Indication:Nonsmoker Start:26-Apr-2022 Instruction Type:Provider Instructions for Treatment How to Access Health Informa tion Online using Patient Portal and [employer] Apps Indication:Nonsmoker Start:26-Apr-2022 Instruction Type:Patient Education Patient Instructions Indication:Nonsmoker Start:22-Feb-2022 Instruction Type:Provider Instructions for Treatment How to Access Health Informa tion Online using Patient Portal and [employer] Apps Indication:Nonsmoker Start:22-Feb-2022 Instruction Type:Patient Education Patient Instructions Indication:Nonsmoker Start:15-Oct-2021 Instruction Type:Provider Instructions for Treatment How to Access Health Informa tion Online using Patient Portal and [employer] Apps Indication:Nonsmoker Start:15-Oct-2021 Instruction Type:Patient Education Patient Instructions Indication:Nonsmoker Start:05-Jul-2021 Instruction Type:Provider Instructions for Treatment How to Access Health Informa tion Online using Patient Portal and [employer] Apps Indication:Nonsmoker Start:05-Jul-2021 Instruction Type:Patient Education Patient Instructions Indication:Nonsmoker Start:02-Jul-2021 Instruction Type:Provider Instructions for Treatment How to Access Health Informa tion Online using Patient Portal and [employer] Apps Indication:Nonsmoker Start:02-Jul-2021 Instruction Type:Patient Education Patient Instructions Indication:Nonsmoker Start:09-Feb-2021 Instruction Type:Provider Instructions for Treatment How to Access Health Informa tion Online using Patient Portal and [employer] Apps Indication:Nonsmoker Start:09-Feb-2021 Instruction Type:Patient Education How to Access Health Informa tion Online using Patient Portal and [employer] Apps Indication:Nonsmoker Start:22-Jan-2021 Instruction Type:Patient Education Patient Instructions Indication:Nonsmoker Start:22-Jan-2021 Instruction Type:Provider Instructions for Treatment Patient Instructions Indication:Nonsmoker Start:12-Oct-2020 Instruction Type:Provider Instructions for Treatment How to Access Health Informa tion Online using Patient Portal and [employer] Apps Indication:Nonsmoker Start:12-Oct-2020 Instruction Type:Patient Education Patient Instructions Indication:BMI 21.0-21.9, adult Start:14-Sep-2020 Instruction Type:Provider Instructions for Treatment How to Access Health Informa tion Online using Patient Portal and [employer] Apps Indication:BMI 21.0-21.9, adult Start:14-Sep-2020 Instruction Type:Patient [...] tion Online using Patient Portal and [employer] Apps Indication:BMI 23.0-23.9, adult Start:10-Jun-2022 Instruction Type:Patient Education Patient Instructions Indication:Nonsmoker Start:26-Apr-2022 Instruction Type:Provider Instructions for Treatment How to Access Health Informa tion Online using Patient Portal and [employer] Apps Indication:Nonsmoker Start:26-Apr-2022 Instruction Type:Patient Education Patient Instructions Indication:Nonsmoker Start:22-Feb-2022 Instruction Type:Provider Instructions for Treatment How to Access Health Informa tion Online using Patient Portal and [employer] Apps Indication:Nonsmoker Start:22-Feb-2022 Instruction Type:Patient Education Patient Instructions Indication:Nonsmoker Start:15-Oct-2021 Instruction Type:Provider Instructions for Treatment How to Access Health Informa tion Online using Patient Portal and [employer] Apps Indication:Nonsmoker Start:15-Oct-2021 Instruction Type:Patient Education Patient Instructions Indication:Nonsmoker Start:05-Jul-2021 Instruction Type:Provider Instructions for Treatment How to Access Health Informa tion Online using Patient Portal and [employer] Apps Indication:Nonsmoker Start:05-Jul-2021 Instruction Type:Patient Education Patient Instructions Indication:Nonsmoker Start:02-Jul-2021 Instruction Type:Provider Instructions for Treatment How to Access Health Informa tion Online using Patient Portal and [employer] Apps Indication:Nonsmoker Start:02-Jul-2021 Instruction Type:Patient Education Patient Instructions Indication:Nonsmoker Start:09-Feb-2021 Instruction Type:Provider Instructions for Treatment How to Access Health Informa tion Online using Patient Portal and [employer] Apps Indication:Nonsmoker Start:09-Feb-2021 Instruction Type:Patient Education How to Access Health Informa tion Online using Patient Portal and [employer] Apps Indication:Nonsmoker Start:22-Jan-2021 Instruction Type:Patient Education Patient Instructions Indication:Nonsmoker Start:22-Jan-2021 Instruction Type:Provider Instructions for Treatment Patient Instructions Indication:Nonsmoker Start:12-Oct-2020 Instruction Type:Provider Instructions for Treatment How to Access Health Informa tion Online using Patient Portal and [employer] Apps Indication:Nonsmoker Start:12-Oct-2020 Instruction Type:Patient Education Patient Instructions Indication:BMI 21.0-21.9, adult Start:14-Sep-2020 Instruction Type:Provider Instructions for Treatment How to Access Health Informa tion Online using Patient Portal and [employer] Apps Indication:BMI 21.0-21.9, adult Start:14-Sep-2020 Instruction Type:Patient [...] tion Online using Patient Portal and [employer] Apps Indication:BMI 23.0-23.9, adult Start:10-Jun-2022 Instruction Type:Patient Education Patient Instructions Indication:Nonsmoker Start:26-Apr-2022 Instruction Type:Provider Instructions for Treatment How to Access Health Informa tion Online using Patient Portal and [employer] Apps Indication:Nonsmoker Start:26-Apr-2022 Instruction Type:Patient Education Patient Instructions Indication:Nonsmoker Start:22-Feb-2022 Instruction Type:Provider Instructions for Treatment How to Access Health Informa tion Online using Patient Portal and [employer] Apps Indication:Nonsmoker Start:22-Feb-2022 Instruction Type:Patient Education Patient Instructions Indication:Nonsmoker Start:15-Oct-2021 Instruction Type:Provider Instructions for Treatment How to Access Health Informa tion Online using Patient Portal and [employer] Apps Indication:Nonsmoker Start:15-Oct-2021 Instruction Type:Patient Education Patient Instructions Indication:Nonsmoker Start:05-Jul-2021 Instruction Type:Provider Instructions for Treatment How to Access Health Informa tion Online using Patient Portal and [employer] Apps Indication:Nonsmoker Start:05-Jul-2021 Instruction Type:Patient Education Patient Instructions Indication:Nonsmoker Start:02-Jul-2021 Instruction Type:Provider Instructions for Treatment How to Access Health Informa tion Online using Patient Portal and [employer] Apps Indication:Nonsmoker Start:02-Jul-2021 Instruction Type:Patient Education Patient Instructions Indication:Nonsmoker Start:09-Feb-2021 Instruction Type:Provider Instructions for Treatment How to Access Health Informa tion Online using Patient Portal and [employer] Apps Indication:Nonsmoker Start:09-Feb-2021 Instruction Type:Patient Education How to Access Health Informa tion Online using Patient Portal and [employer] Apps Indication:Nonsmoker Start:22-Jan-2021 Instruction Type:Patient Education Patient Instructions Indication:Nonsmoker Start:22-Jan-2021 Instruction Type:Provider Instructions for Treatment Patient Instructions Indication:Nonsmoker Start:12-Oct-2020 Instruction Type:Provider Instructions for Treatment How to Access Health Informa tion Online using Patient Portal and [employer] Apps Indication:Nonsmoker Start:12-Oct-2020 Instruction Type:Patient Education Patient Instructions Indication:BMI 21.0-21.9, adult Start:14-Sep-2020 Instruction Type:Provider Instructions for Treatment How to Access Health Informa tion Online using Patient Portal and [employer] Indication:BMI 21.0-21.9, adult Start:14-Sep-2020 Instruction Type:Patient [...] tion Online using Patient Portal and [employer] Apps Indication:BMI 23.0-23.9, adult Start:10-Jun-2022 Instruction Type:Patient Education Patient Instructions Indication:Nonsmoker Start:26-Apr-2022 Instruction Type:Provider Instructions for Treatment How to Access Health Informa tion Online using Patient Portal and [employer] Apps Indication:Nonsmoker Start:26-Apr-2022 Instruction Type:Patient Education Patient Instructions Indication:Nonsmoker Start:22-Feb-2022 Instruction Type:Provider Instructions for Treatment How to Access Health Informa tion Online using Patient Portal and [employer] Apps Indication:Nonsmoker Start:22-Feb-2022 Instruction Type:Patient Education Patient Instructions Indication:Nonsmoker Start:15-Oct-2021 Instruction Type:Provider Instructions for Treatment How to Access Health Informa tion Online using Patient Portal and [employer] Apps Indication:Nonsmoker Start:15-Oct-2021 Instruction Type:Patient Education Patient Instructions Indication:Nonsmoker Start:05-Jul-2021 Instruction Type:Provider Instructions for Treatment How to Access Health Informa tion Online using Patient Portal and [employer] Apps Indication:Nonsmoker Start:05-Jul-2021 Instruction Type:Patient Education Patient Instructions Indication:Nonsmoker Start:02-Jul-2021 Instruction Type:Provider Instructions for Treatment How to Access Health Informa tion Online using Patient Portal and [employer] Apps Indication:Nonsmoker Start:02-Jul-2021 Instruction Type:Patient Education Patient Instructions Indication:Nonsmoker Start:09-Feb-2021 Instruction Type:Provider Instructions for Treatment How to Access Health Informa tion Online using Patient Portal and [employer] Apps Indication:Nonsmoker Start:09-Feb-2021 Instruction Type:Patient Education How to Access Health Informa tion Online using Patient Portal and [employer] Apps Indication:Nonsmoker Start:22-Jan-2021 Instruction Type:Patient Education Patient Instructions Indication:Nonsmoker Start:22-Jan-2021 Instruction Type:Provider Instructions for Treatment Patient Instructions Indication:Nonsmoker Start:12-Oct-2020 Instruction Type:Provider Instructions for Treatment How to Access Health Informa tion Online using Patient Portal and [employer] Apps Indication:Nonsmoker Start:12-Oct-2020 Instruction Type:Patient Education Patient Instructions Indication:BMI 21.0-21.9, adult Start:14-Sep-2020 Instruction Type:Provider Instructions for Treatment How to Access Health Informa tion Online using Patient Portal and [employer] Indication:BMI 21.0-21.9, adult Start:14-Sep-2020 Instruction Type:Patient [...] tion Online using Patient Portal and [employer] Apps Indication:Nonsmoker Start:12-Sep-2022 Instruction Type:Patient Education Patient Instructions Indication:BMI 23.0-23.9, adult Start:10-Jun-2022 Instruction Type:Provider Instructions for Treatment How to Access Health Informa tion Online using Patient Portal and [employer] Indication:BMI 23.0-23.9, adult Start:10-Jun-2022 Instruction Type:Patient Education Patient Instructions Indication:Nonsmoker Start:26-Apr-2022 Instruction Type:Provider Instructions for Treatment How to Access Health Informa tion Online using Patient Portal and [employer] Apps Indication:Nonsmoker Start:26-Apr-2022 Instruction Type:Patient Education Patient Instructions Indication:Nonsmoker Start:22-Feb-2022 Instruction Type:Provider Instructions for Treatment How to Access Health Informa tion Online using Patient Portal and [employer] Apps Indication:Nonsmoker Start:22-Feb-2022 Instruction Type:Patient Education Patient Instructions Indication:Nonsmoker Start:15-Oct-2021 Instruction Type:Provider Instructions for Treatment How to Access Health Informa tion Online using Patient Portal and [employer] Apps Indication:Nonsmoker Start:15-Oct-2021 Instruction Type:Patient Education Patient Instructions Indication:Nonsmoker Start:05-Jul-2021 Instruction Type:Provider Instructions for Treatment How to Access Health Informa tion Online using Patient Portal and [employer] Apps Indication:Nonsmoker Start:05-Jul-2021 Instruction Type:Patient Education Patient Instructions Indication:Nonsmoker Start:02-Jul-2021 Instruction Type:Provider Instructions for Treatment How to Access Health Informa tion Online using Patient Portal and [employer] Apps Indication:Nonsmoker Start:02-Jul-2021 Instruction Type:Patient Education Patient Instructions Indication:Nonsmoker Start:09-Feb-2021 Instruction Type:Provider Instructions for Treatment How to Access Health Informa tion Online using Patient Portal and [employer] Apps Indication:Nonsmoker Start:09-Feb-2021 Instruction Type:Patient Education How to Access Health Informa tion Online using Patient Portal and [employer] Apps Indication:Nonsmoker Start:22-Jan-2021 Instruction Type:Patient Education Patient Instructions Indication:Nonsmoker Start:22-Jan-2021 Instruction Type:Provider Instructions for Treatment Patient Instructions Indication:Nonsmoker Start:12-Oct-2020 Instruction Type:Provider Instructions for Treatment How to Access Health Informa tion Online using Patient Portal and [employer] Indication:Nonsmoker Start:12-Oct-2020 Instruction Type:Patient Education Patient Instructions Indication:BMI 21.0-21.9, adult Start:14-Sep-2020 Instruction Type:Provider Instructions for Treatment How to Access Health Informa tion Online using Patient Portal and [employer] Indication:BMI 21.0-21.9, adult Start:14-Sep-2020 Instruction Type:Patient [...] Informa tion Online using Patient Portal and [email or web address] Apps Indication:Nonsmoker Start:12-Sep-2022 Instruction Type:Patient Education Patient Instructions Indication:BMI 23.0-23.9, adult Start:10-Jun-2022 Instruction Type:Provider Instructions for Treatment How to Access Health Informa tion Online using Patient Portal and [employer] Apps Indication:BMI 23.0-23.9, adult Start:10-Jun-2022 Instruction Type:Patient Education Patient Instructions Indication:Nonsmoker Start:26-Apr-2022 Instruction Type:Provider Instructions for Treatment How to Access Health Informa tion Online using Patient Portal and [email or web address] Apps Indication:Nonsmoker Start:26-Apr-2022 Instruction Type:Patient Education Patient Instructions Indication:Nonsmoker Start:22-Feb-2022 Instruction Type:Provider Instructions for Treatment How to Access Health Informa tion Online using Patient Portal and [email or web address] Apps Indication:Nonsmoker Start:22-Feb-2022 Instruction Type:Patient Education Patient Instructions Indication:Nonsmoker Start:15-Oct-2021 Instruction Type:Provider Instructions for Treatment How to Access Health Informa tion Online using Patient Portal and [employer] Apps Indication:Nonsmoker Start:15-Oct-2021 Instruction Type:Patient Education Patient Instructions Indication:Nonsmoker Start:05-Jul-2021 Instruction Type:Provider Instructions for Treatment How to Access Health Informa tion Online using Patient Portal and [employer] Indication:Nonsmoker Start:05-Jul-2021 Instruction Type:Patient Education Patient Instructions Indication:Nonsmoker Start:02-Jul-2021 Instruction Type:Provider Instructions for Treatment How to Access Health Informa tion Online using Patient Portal and [employer] Apps Indication:Nonsmoker Start:02-Jul-2021 Instruction Type:Patient Education Patient Instructions Indication:Nonsmoker Start:09-Feb-2021 Instruction Type:Provider Instructions for Treatment How to Access Health Informa tion Online using Patient Portal and [employer] Apps Indication:Nonsmoker Start:09-Feb-2021 Instruction Type:Patient Education How to Access Health Informa tion Online using Patient Portal and [employer] Apps Indication:Nonsmoker Start:22-Jan-2021 Instruction Type:Patient Education Patient Instructions Indication:Nonsmoker Start:22-Jan-2021 Instruction Type:Provider Instructions for Treatment Patient Instructions Indication:Nonsmoker Start:12-Oct-2020 Instruction Type:Provider Instructions for Treatment How to Access Health Informa tion Online using Patient Portal and [employer] Apps Indication:Nonsmoker Start:12-Oct-2020 Instruction Type:Patient Education Patient Instructions Indication:BMI 21.0-21.9, adult Start:14-Sep-2020 Instruction Type:Provider Instructions for Treatment How to Access Health Informa tion Online using Patient Portal and [employer] Apps Indication:BMI 21.0-21.9, adult Start:14-Sep-2020 Instruction Type:Patient [...] tion Online using Patient Portal and [employer] Apps Indication:Nonsmoker Start:12-Sep-2022 Instruction Type:Patient Education Patient Instructions Indication:BMI 23.0-23.9, adult Start:10-Jun-2022 Instruction Type:Provider Instructions for Treatment How to Access Health Informa tion Online using Patient Portal and [employer] Apps Indication:BMI 23.0-23.9, adult Start:10-Jun-2022 Instruction Type:Patient Education Patient Instructions Indication:Nonsmoker Start:26-Apr-2022 Instruction Type:Provider Instructions for Treatment How to Access Health Informa tion Online using Patient Portal and [employer] Apps Indication:Nonsmoker Start:26-Apr-2022 Instruction Type:Patient Education Patient Instructions Indication:Nonsmoker Start:22-Feb-2022 Instruction Type:Provider Instructions for Treatment How to Access Health Informa tion Online using Patient Portal and [employer] Apps Indication:Nonsmoker Start:22-Feb-2022 Instruction Type:Patient Education Patient Instructions Indication:Nonsmoker Start:15-Oct-2021 Instruction Type:Provider Instructions for Treatment How to Access Health Informa tion Online using Patient Portal and [employer] Apps Indication:Nonsmoker Start:15-Oct-2021 Instruction Type:Patient Education Patient Instructions Indication:Nonsmoker Start:05-Jul-2021 Instruction Type:Provider Instructions for Treatment How to Access Health Informa tion Online using Patient Portal and [employer] Apps Indication:Nonsmoker Start:05-Jul-2021 Instruction Type:Patient Education Patient Instructions Indication:Nonsmoker Start:02-Jul-2021 Instruction Type:Provider Instructions for Treatment How to Access Health Informa tion Online using Patient Portal and [employer] Apps Indication:Nonsmoker Start:02-Jul-2021 Instruction Type:Patient Education Patient Instructions Indication:Nonsmoker Start:09-Feb-2021 Instruction Type:Provider Instructions for Treatment How to Access Health Informa tion Online using Patient Portal and [employer] Apps Indication:Nonsmoker Start:09-Feb-2021 Instruction Type:Patient Education How to Access Health Informa tion Online using Patient Portal and [employer] Apps Indication:Nonsmoker Start:22-Jan-2021 Instruction Type:Patient Education Patient Instructions Indication:Nonsmoker Start:22-Jan-2021 Instruction Type:Provider Instructions for Treatment Patient Instructions Indication:Nonsmoker Start:12-Oct-2020 Instruction Type:Provider Instructions for Treatment How to Access Health Informa tion Online using Patient Portal and [employer] Apps Indication:Nonsmoker Start:12-Oct-2020 Instruction Type:Patient Education Patient Instructions Indication:BMI 21.0-21.9, adult Start:14-Sep-2020 Instruction Type:Provider Instructions for Treatment How to Access Health Informa tion Online using Patient Portal and [employer] Apps Indication:BMI 21.0-21.9, adult Start:14-Sep-2020 Instruction Type:Patient [...] tion Online using Patient Portal and [employer] Apps Indication:BMI 23.0-23.9, adult Start:07-Oct-2022 Instruction Type:Patient Education Patient Instructions Indication:Nonsmoker Start:12-Sep-2022 Instruction Type:Provider Instructions for Treatment How to Access Health Informa tion Online using Patient Portal and [employer] Apps Indication:Nonsmoker Start:12-Sep-2022 Instruction Type:Patient Education Patient Instructions Indication:BMI 23.0-23.9, adult Start:10-Jun-2022 Instruction Type:Provider Instructions for Treatment How to Access Health Informa tion Online using Patient Portal and [employer] Apps Indication:BMI 23.0-23.9, adult Start:10-Jun-2022 Instruction Type:Patient Education Patient Instructions Indication:Nonsmoker Start:26-Apr-2022 Instruction Type:Provider Instructions for Treatment How to Access Health Informa tion Online using Patient Portal and [employer] Apps Indication:Nonsmoker Start:26-Apr-2022 Instruction Type:Patient Education Patient Instructions Indication:Nonsmoker Start:22-Feb-2022 Instruction Type:Provider Instructions for Treatment How to Access Health Informa tion Online using Patient Portal and [employer] Apps Indication:Nonsmoker Start:22-Feb-2022 Instruction Type:Patient Education Patient Instructions Indication:Nonsmoker Start:15-Oct-2021 Instruction Type:Provider Instructions for Treatment How to Access Health Informa tion Online using Patient Portal and [employer] Apps Indication:Nonsmoker Start:15-Oct-2021 Instruction Type:Patient Education Patient Instructions Indication:Nonsmoker Start:05-Jul-2021 Instruction Type:Provider Instructions for Treatment How to Access Health Informa tion Online using Patient Portal and [employer] Apps Indication:Nonsmoker Start:05-Jul-2021 Instruction Type:Patient Education Patient Instructions Indication:Nonsmoker Start:02-Jul-2021 Instruction Type:Provider Instructions for Treatment How to Access Health Informa tion Online using Patient Portal and [employer] Apps Indication:Nonsmoker Start:02-Jul-2021 Instruction Type:Patient Education Patient Instructions Indication:Nonsmoker Start:09-Feb-2021 Instruction Type:Provider Instructions for Treatment How to Access Health Informa tion Online using Patient Portal and [employer] Apps Indication:Nonsmoker Start:09-Feb-2021 Instruction Type:Patient Education How to Access Health Informa tion Online using Patient Portal and [employer] Apps Indication:Nonsmoker Start:22-Jan-2021 Instruction Type:Patient Education Patient Instructions Indication:Nonsmoker Start:22-Jan-2021 Instruction Type:Provider Instructions for Treatment Patient Instructions Indication:Nonsmoker Start:12-Oct-2020 Instruction Type:Provider Instructions for Treatment How to Access Health Informa tion Online using Patient Portal and [employer] Apps Indication:Nonsmoker Start:12-Oct-2020 Instruction Type:Patient Education Patient Instructions Indication:BMI 21.0-21.9, adult Start:14-Sep-2020 Instruction Type:Provider Instructions for Treatment How to Access Health Informa tion Online using Patient Portal and [employer] Indication:BMI 21.0-21.9, adult Start:14-Sep-2020 Instruction Type:Patient [...] tion Online using Patient Portal and [employer] Apps Indication:BMI 23.0-23.9, adult Start:07-Oct-2022 Instruction Type:Patient Education Patient Instructions Indication:Nonsmoker Start:12-Sep-2022 Instruction Type:Provider Instructions for Treatment How to Access Health Informa tion Online using Patient Portal and [employer] Apps Indication:Nonsmoker Start:12-Sep-2022 Instruction Type:Patient Education Patient Instructions Indication:BMI 23.0-23.9, adult Start:10-Jun-2022 Instruction Type:Provider Instructions for Treatment How to Access Health Informa tion Online using Patient Portal and [employer] Apps Indication:BMI 23.0-23.9, adult Start:10-Jun-2022 Instruction Type:Patient Education Patient Instructions Indication:Nonsmoker Start:26-Apr-2022 Instruction Type:Provider Instructions for Treatment How to Access Health Informa tion Online using Patient Portal and [employer] Apps Indication:Nonsmoker Start:26-Apr-2022 Instruction Type:Patient Education Patient Instructions Indication:Nonsmoker Start:22-Feb-2022 Instruction Type:Provider Instructions for Treatment How to Access Health Informa tion Online using Patient Portal and [employer] Apps Indication:Nonsmoker Start:22-Feb-2022 Instruction Type:Patient Education Patient Instructions Indication:Nonsmoker Start:15-Oct-2021 Instruction Type:Provider Instructions for Treatment How to Access Health Informa tion Online using Patient Portal and [employer] Apps Indication:Nonsmoker Start:15-Oct-2021 Instruction Type:Patient Education Patient Instructions Indication:Nonsmoker Start:05-Jul-2021 Instruction Type:Provider Instructions for Treatment How to Access Health Informa tion Online using Patient Portal and [employer] Apps Indication:Nonsmoker Start:05-Jul-2021 Instruction Type:Patient Education Patient Instructions Indication:Nonsmoker Start:02-Jul-2021 Instruction Type:Provider Instructions for Treatment How to Access Health Informa tion Online using Patient Portal and [employer] Apps Indication:Nonsmoker Start:02-Jul-2021 Instruction Type:Patient Education Patient Instructions Indication:Nonsmoker Start:09-Feb-2021 Instruction Type:Provider Instructions for Treatment How to Access Health Informa tion Online using Patient Portal and [employer] Apps Indication:Nonsmoker Start:09-Feb-2021 Instruction Type:Patient Education How to Access Health Informa tion Online using Patient Portal and [employer] Apps Indication:Nonsmoker Start:22-Jan-2021 Instruction Type:Patient Education Patient Instructions Indication:Nonsmoker Start:22-Jan-2021 Instruction Type:Provider Instructions for Treatment Patient Instructions Indication:Nonsmoker Start:12-Oct-2020 Instruction Type:Provider Instructions for Treatment How to Access Health Informa tion Online using Patient Portal and [employer] Apps Indication:Nonsmoker Start:12-Oct-2020 Instruction Type:Patient Education Patient Instructions Indication:BMI 21.0-21.9, adult Start:14-Sep-2020 Instruction Type:Provider Instructions for Treatment How to Access Health Informa tion Online using Patient Portal and [employer] Apps Indication:BMI 21.0-21.9, adult Start:14-Sep-2020 Instruction Type:Patient [...] tion Online using Patient Portal and [employer] Apps Indication:Abnormal lung sounds Start:14-Oct-2022 Instruction Type:Patient Education Patient Instructions Indication:BMI 23.0-23.9, adult Start:07-Oct-2022 Instruction Type:Provider Instructions for Treatment How to Access Health Informa tion Online using Patient Portal and [employer] Apps Indication:BMI 23.0-23.9, adult Start:07-Oct-2022 Instruction Type:Patient Education Patient Instructions Indication:Nonsmoker Start:12-Sep-2022 Instruction Type:Provider Instructions for Treatment How to Access Health Informa tion Online using Patient Portal and [employer] Apps Indication:Nonsmoker Start:12-Sep-2022 Instruction Type:Patient Education Patient Instructions Indication:BMI 23.0-23.9, adult Start:10-Jun-2022 Instruction Type:Provider Instructions for Treatment How to Access Health Informa tion Online using Patient Portal and [employer] Apps Indication:BMI 23.0-23.9, adult Start:10-Jun-2022 Instruction Type:Patient Education Patient Instructions Indication:Nonsmoker Start:26-Apr-2022 Instruction Type:Provider Instructions for Treatment How to Access Health Informa tion Online using Patient Portal and [employer] Apps Indication:Nonsmoker Start:26-Apr-2022 Instruction Type:Patient Education Patient Instructions Indication:Nonsmoker Start:22-Feb-2022 Instruction Type:Provider Instructions for Treatment How to Access Health Informa tion Online using Patient Portal and [employer] Apps Indication:Nonsmoker Start:22-Feb-2022 Instruction Type:Patient Education Patient Instructions Indication:Nonsmoker Start:15-Oct-2021 Instruction Type:Provider Instructions for Treatment How to Access Health Informa tion Online using Patient Portal and [employer] Apps Indication:Nonsmoker Start:15-Oct-2021 Instruction Type:Patient Education Patient Instructions Indication:Nonsmoker Start:05-Jul-2021 Instruction Type:Provider Instructions for Treatment How to Access Health Informa tion Online using Patient Portal and [employer] Apps Indication:Nonsmoker Start:05-Jul-2021 Instruction Type:Patient Education Patient Instructions Indication:Nonsmoker Start:02-Jul-2021 Instruction Type:Provider Instructions for Treatment How to Access Health Informa tion Online using Patient Portal and [employer] Apps Indication:Nonsmoker Start:02-Jul-2021 Instruction Type:Patient Education Patient Instructions Indication:Nonsmoker Start:09-Feb-2021 Instruction Type:Provider Instructions for Treatment How to Access Health Informa tion Online using Patient Portal and [employer] Apps Indication:Nonsmoker Start:09-Feb-2021 Instruction Type:Patient Education How to Access Health Informa tion Online using Patient Portal and [employer] Apps Indication:Nonsmoker Start:22-Jan-2021 Instruction Type:Patient Education Patient Instructions Indication:Nonsmoker Start:22-Jan-2021 Instruction Type:Provider Instructions for Treatment Patient Instructions Indication:Nonsmoker Start:12-Oct-2020 Instruction Type:Provider Instructions for Treatment How to Access Health Informa tion Online using Patient Portal and [employer] Republican Apps Indication:Nonsmoker Start:12-Oct-2020 Instruction Type:Patient Education Patient Instructions Indication:BMI 21.0-21.9, adult Start:14-Sep-2020 Instruction Type:Provider Instructions for Treatment How to Access Health Informa tion Online using Patient Portal and [employer] Indication:BMI 21.0-21.9, adult Start:14-Sep-2020 Instruction Type:Patient [...] tion Online using Patient Portal and [employer] Apps Indication:Abnormal lung sounds Start:14-Oct-2022 Instruction Type:Patient Education Patient Instructions Indication:BMI 23.0-23.9, adult Start:07-Oct-2022 Instruction Type:Provider Instructions for Treatment How to Access Health Informa tion Online using Patient Portal and [employer] Apps Indication:BMI 23.0-23.9, adult Start:07-Oct-2022 Instruction Type:Patient Education Patient Instructions Indication:Nonsmoker Start:12-Sep-2022 Instruction Type:Provider Instructions for Treatment How to Access Health Informa tion Online using Patient Portal and [employer] Apps Indication:Nonsmoker Start:12-Sep-2022 Instruction Type:Patient Education Patient Instructions Indication:BMI 23.0-23.9, adult Start:10-Jun-2022 Instruction Type:Provider Instructions for Treatment How to Access Health Informa tion Online using Patient Portal and [employer] Apps Indication:BMI 23.0-23.9, adult Start:10-Jun-2022 Instruction Type:Patient Education Patient Instructions Indication:Nonsmoker Start:26-Apr-2022 Instruction Type:Provider Instructions for Treatment How to Access Health Informa tion Online using Patient Portal and [employer] Apps Indication:Nonsmoker Start:26-Apr-2022 Instruction Type:Patient Education Patient Instructions Indication:Nonsmoker Start:22-Feb-2022 Instruction Type:Provider Instructions for Treatment How to Access Health Informa tion Online using Patient Portal and [employer] Apps Indication:Nonsmoker Start:22-Feb-2022 Instruction Type:Patient Education Patient Instructions Indication:Nonsmoker Start:15-Oct-2021 Instruction Type:Provider Instructions for Treatment How to Access Health Informa tion Online using Patient Portal and [employer] Apps Indication:Nonsmoker Start:15-Oct-2021 Instruction Type:Patient Education Patient Instructions Indication:Nonsmoker Start:05-Jul-2021 Instruction Type:Provider Instructions for Treatment How to Access Health Informa tion Online using Patient Portal and [employer] Apps Indication:Nonsmoker Start:05-Jul-2021 Instruction Type:Patient Education Patient Instructions Indication:Nonsmoker Start:02-Jul-2021 Instruction Type:Provider Instructions for Treatment How to Access Health Informa tion Online using Patient Portal and [employer] Apps Indication:Nonsmoker Start:02-Jul-2021 Instruction Type:Patient Education Patient Instructions Indication:Nonsmoker Start:09-Feb-2021 Instruction Type:Provider Instructions for Treatment How to Access Health Informa tion Online using Patient Portal and [employer] Apps Indication:Nonsmoker Start:09-Feb-2021 Instruction Type:Patient Education How to Access Health Informa tion Online using Patient Portal and [employer] Apps Indication:Nonsmoker Start:22-Jan-2021 Instruction Type:Patient Education Patient Instructions Indication:Nonsmoker Start:22-Jan-2021 Instruction Type:Provider Instructions for Treatment Patient Instructions Indication:Nonsmoker Start:12-Oct-2020 Instruction Type:Provider Instructions for Treatment How to Access Health Informa tion Online using Patient Portal and [employer] Apps Indication:Nonsmoker Start:12-Oct-2020 Instruction Type:Patient Education Patient Instructions Indication:BMI 21.0-21.9, adult Start:14-Sep-2020 Instruction Type:Provider Instructions for Treatment How to Access Health Informa tion Online using Patient Portal and [employer] Apps Indication:BMI 21.0-21.9, adult Start:14-Sep-2020 Instruction Type:Patient [...] Informa tion Online using Patient Portal and [email or web address] Apps Indication:Abnormal lung sounds Start:14-Oct-2022 Instruction Type:Patient Education Patient Instructions Indication:BMI 23.0-23.9, adult Start:07-Oct-2022 Instruction Type:Provider Instructions for Treatment How to Access Health Informa tion Online using Patient Portal and [email or web address] Apps Indication:BMI 23.0-23.9, adult Start:07-Oct-2022 Instruction Type:Patient Education Patient Instructions Indication:Nonsmoker Start:12-Sep-2022 Instruction Type:Provider Instructions for Treatment How to Access Health Informa tion Online using Patient Portal and [email or web address] Apps Indication:Nonsmoker Start:12-Sep-2022 Instruction Type:Patient Education Patient Instructions Indication:BMI 23.0-23.9, adult Start:10-Jun-2022 Instruction Type:Provider Instructions for Treatment How to Access Health Informa tion Online using Patient Portal and [email or web address] Apps Indication:BMI 23.0-23.9, adult Start:10-Jun-2022 Instruction Type:Patient Education Patient Instructions Indication:Nonsmoker Start:26-Apr-2022 Instruction Type:Provider Instructions for Treatment How to Access Health Informa tion Online using Patient Portal and [email or web address] Apps Indication:Nonsmoker Start:26-Apr-2022 Instruction Type:Patient Education Patient Instructions Indication:Nonsmoker Start:22-Feb-2022 Instruction Type:Provider Instructions for Treatment How to Access Health Informa tion Online using Patient Portal and [email or web address] Apps Indication:Nonsmoker Start:22-Feb-2022 Instruction Type:Patient Education Patient Instructions Indication:Nonsmoker Start:15-Oct-2021 Instruction Type:Provider Instructions for Treatment How to Access Health Informa tion Online using Patient Portal and [employer] Indication:Nonsmoker Start:15-Oct-2021 Instruction Type:Patient Education Patient Instructions Indication:Nonsmoker Start:05-Jul-2021 Instruction Type:Provider Instructions for Treatment How to Access Health Informa tion Online using Patient Portal and [employer] Apps Indication:Nonsmoker Start:05-Jul-2021 Instruction Type:Patient Education Patient Instructions Indication:Nonsmoker Start:02-Jul-2021 Instruction Type:Provider Instructions for Treatment How to Access Health Informa tion Online using Patient Portal and [employer] Apps Indication:Nonsmoker Start:02-Jul-2021 Instruction Type:Patient Education Patient Instructions Indication:Nonsmoker Start:09-Feb-2021 Instruction Type:Provider Instructions for Treatment How to Access Health Informa tion Online using Patient Portal and [employer] Apps Indication:Nonsmoker Start:09-Feb-2021 Instruction Type:Patient Education How to Access Health Informa tion Online using Patient Portal and [employer] Apps Indication:Nonsmoker Start:22-Jan-2021 Instruction Type:Patient Education Patient Instructions Indication:Nonsmoker Start:22-Jan-2021 Instruction Type:Provider Instructions for Treatment Patient Instructions Indication:Nonsmoker Start:12-Oct-2020 Instruction Type:Provider Instructions for Treatment How to Access Health Informa tion Online using Patient Portal and [employer] Indication:Nonsmoker Start:12-Oct-2020 Instruction Type:Patient Education Patient Instructions Indication:BMI 21.0-21.9, adult Start:14-Sep-2020 Instruction Type:Provider Instructions for Treatment How to Access Health Informa tion Online using Patient Portal and [employer] Indication:BMI 21.0-21.9, adult Start:14-Sep-2020 Instruction Type:Patient [...] tion Online using Patient Portal and [employer] Indication:Nonsmoker Start:16-Dec-2022 Instruction Type:Patient Education Patient Instructions Indication:Abnormal lung sounds Start:14-Oct-2022 Instruction Type:Provider Instructions for Treatment How to Access Health Informa tion Online using Patient Portal and [employer] Indication:Abnormal lung sounds Start:14-Oct-2022 Instruction Type:Patient Education Patient Instructions Indication:BMI 23.0-23.9, adult Start:07-Oct-2022 Instruction Type:Provider Instructions for Treatment How to Access Health Informa tion Online using Patient Portal and [employer] Indication:BMI 23.0-23.9, adult Start:07-Oct-2022 Instruction Type:Patient Education Patient Instructions Indication:Nonsmoker Start:12-Sep-2022 Instruction Type:Provider Instructions for Treatment How to Access Health Informa tion Online using Patient Portal and [employer] Indication:Nonsmoker Start:12-Sep-2022 Instruction Type:Patient Education Patient Instructions Indication:BMI 23.0-23.9, adult Start:10-Jun-2022 Instruction Type:Provider Instructions for Treatment How to Access Health Informa tion Online using Patient Portal and [employer] Indication:BMI 23.0-23.9, adult Start:10-Jun-2022 Instruction Type:Patient Education Patient Instructions Indication:Nonsmoker Start:26-Apr-2022 Instruction Type:Provider Instructions for Treatment How to Access Health Informa tion Online using Patient Portal and [employer] Indication:Nonsmoker Start:26-Apr-2022 Instruction Type:Patient Education Patient Instructions Indication:Nonsmoker Start:22-Feb-2022 Instruction Type:Provider Instructions for Treatment How to Access Health Informa tion Online using Patient Portal and [employer] Indication:Nonsmoker Start:22-Feb-2022 Instruction Type:Patient Education Patient Instructions Indication:Nonsmoker Start:15-Oct-2021 Instruction Type:Provider Instructions for Treatment How to Access Health Informa tion Online using Patient Portal and [employer] Indication:Nonsmoker Start:15-Oct-2021 Instruction Type:Patient Education Patient Instructions Indication:Nonsmoker Start:05-Jul-2021 Instruction Type:Provider Instructions for Treatment How to Access Health Informa tion Online using Patient Portal and [employer] Indication:Nonsmoker Start:05-Jul-2021 Instruction Type:Patient Education Patient Instructions Indication:Nonsmoker Start:02-Jul-2021 Instruction Type:Provider Instructions for Treatment How to Access Health Informa tion Online using Patient Portal and [employer] Apps Indication:Nonsmoker Start:02-Jul-2021 Instruction Type:Patient Education Patient Instructions Indication:Nonsmoker Start:09-Feb-2021 Instruction Type:Provider Instructions for Treatment How to Access Health Informa tion Online using Patient Portal and [employer] Apps Indication:Nonsmoker Start:09-Feb-2021 Instruction Type:Patient Education How to Access Health Informa tion Online using Patient Portal and [employer] Apps Indication:Nonsmoker Start:22-Jan-2021 Instruction Type:Patient Education Patient Instructions Indication:Nonsmoker Start:22-Jan-2021 Instruction Type:Provider Instructions for Treatment Patient Instructions Indication:Nonsmoker Start:12-Oct-2020 Instruction Type:Provider Instructions for Treatment How to Access Health Informa tion Online using Patient Portal and [employer] Apps Indication:Nonsmoker Start:12-Oct-2020 Instruction Type:Patient Education Patient Instructions Indication:BMI 21.0-21.9, adult Start:14-Sep-2020 Instruction Type:Provider Instructions for Treatment How to Access Health Informa tion Online using Patient Portal and [employer] Apps Indication:BMI 21.0-21.9, adult Start:14-Sep-2020 Instruction Type:Patient [...] Informa tion Online using Patient Portal and [email or web address] Apps Indication:Nonsmoker Start:16-Dec-2022 Instruction Type:Patient Education Patient Instructions Indication:Abnormal lung sounds Start:14-Oct-2022 Instruction Type:Provider Instructions for Treatment How to Access Health Informa tion Online using Patient Portal and [email or web address] Apps Indication:Abnormal lung sounds Start:14-Oct-2022 Instruction Type:Patient Education Patient Instructions Indication:BMI 23.0-23.9, adult Start:07-Oct-2022 Instruction Type:Provider Instructions for Treatment How to Access Health Informa tion Online using Patient Portal and [email or web address] Apps Indication:BMI 23.0-23.9, adult Start:07-Oct-2022 Instruction Type:Patient Education Patient Instructions Indication:Nonsmoker Start:12-Sep-2022 Instruction Type:Provider Instructions for Treatment How to Access Health Informa tion Online using Patient Portal and [email or web address] Apps Indication:Nonsmoker Start:12-Sep-2022 Instruction Type:Patient Education Patient Instructions Indication:BMI 23.0-23.9, adult Start:10-Jun-2022 Instruction Type:Provider Instructions for Treatment How to Access Health Informa tion Online using Patient Portal and [employer] Apps Indication:BMI 23.0-23.9, adult Start:10-Jun-2022 Instruction Type:Patient Education Patient Instructions Indication:Nonsmoker Start:26-Apr-2022 Instruction Type:Provider Instructions for Treatment How to Access Health Informa tion Online using Patient Portal and [employer] Apps Indication:Nonsmoker Start:26-Apr-2022 Instruction Type:Patient Education Patient Instructions Indication:Nonsmoker Start:22-Feb-2022 Instruction Type:Provider Instructions for Treatment How to Access Health Informa tion Online using Patient Portal and [employer] Apps Indication:Nonsmoker Start:22-Feb-2022 Instruction Type:Patient Education Patient Instructions Indication:Nonsmoker Start:15-Oct-2021 Instruction Type:Provider Instructions for Treatment How to Access Health Informa tion Online using Patient Portal and [employer] Apps Indication:Nonsmoker Start:15-Oct-2021 Instruction Type:Patient Education Patient Instructions Indication:Nonsmoker Start:05-Jul-2021 Instruction Type:Provider Instructions for Treatment How to Access Health Informa tion Online using Patient Portal and [employer] Apps Indication:Nonsmoker Start:05-Jul-2021 Instruction Type:Patient Education Patient Instructions Indication:Nonsmoker Start:02-Jul-2021 Instruction Type:Provider Instructions for Treatment How to Access Health Informa tion Online using Patient Portal and [employer] Apps Indication:Nonsmoker Start:02-Jul-2021 Instruction Type:Patient Education Patient Instructions Indication:Nonsmoker Start:09-Feb-2021 Instruction Type:Provider Instructions for Treatment How to Access Health Informa tion Online using Patient Portal and [employer] Apps Indication:Nonsmoker Start:09-Feb-2021 Instruction Type:Patient Education How to Access Health Informa tion Online using Patient Portal and [employer] Apps Indication:Nonsmoker Start:22-Jan-2021 Instruction Type:Patient Education Patient Instructions Indication:Nonsmoker Start:22-Jan-2021 Instruction Type:Provider Instructions for Treatment Patient Instructions Indication:Nonsmoker Start:12-Oct-2020 Instruction Type:Provider Instructions for Treatment How to Access Health Informa tion Online using Patient Portal and [employer] Apps Indication:Nonsmoker Start:12-Oct-2020 Instruction Type:Patient Education Patient Instructions Indication:BMI 21.0-21.9, adult Start:14-Sep-2020 Instruction Type:Provider Instructions for Treatment How to Access Health Informa tion Online using Patient Portal and [employer] Apps Indication:BMI 21.0-21.9, adult Start:14-Sep-2020 Instruction Type:Patient [...] tion Online using Patient Portal and [employer] Apps Indication:Nonsmoker Start:16-Dec-2022 Instruction Type:Patient Education Patient Instructions Indication:Abnormal lung sounds Start:14-Oct-2022 Instruction Type:Provider Instructions for Treatment How to Access Health Informa tion Online using Patient Portal and [employer] Apps Indication:Abnormal lung sounds Start:14-Oct-2022 Instruction Type:Patient Education Patient Instructions Indication:BMI 23.0-23.9, adult Start:07-Oct-2022 Instruction Type:Provider Instructions for Treatment How to Access Health Informa tion Online using Patient Portal and [employer] Apps Indication:BMI 23.0-23.9, adult Start:07-Oct-2022 Instruction Type:Patient Education Patient Instructions Indication:Nonsmoker Start:12-Sep-2022 Instruction Type:Provider Instructions for Treatment How to Access Health Informa tion Online using Patient Portal and [employer] Apps Indication:Nonsmoker Start:12-Sep-2022 Instruction Type:Patient Education Patient Instructions Indication:BMI 23.0-23.9, adult Start:10-Jun-2022 Instruction Type:Provider Instructions for Treatment How to Access Health Informa tion Online using Patient Portal and [employer] Apps Indication:BMI 23.0-23.9, adult Start:10-Jun-2022 Instruction Type:Patient Education Patient Instructions Indication:Nonsmoker Start:26-Apr-2022 Instruction Type:Provider Instructions for Treatment How to Access Health Informa tion Online using Patient Portal and [employer] Apps Indication:Nonsmoker Start:26-Apr-2022 Instruction Type:Patient Education Patient Instructions Indication:Nonsmoker Start:22-Feb-2022 Instruction Type:Provider Instructions for Treatment How to Access Health Informa tion Online using Patient Portal and [employer] Apps Indication:Nonsmoker Start:22-Feb-2022 Instruction Type:Patient Education Patient Instructions Indication:Nonsmoker Start:15-Oct-2021 Instruction Type:Provider Instructions for Treatment How to Access Health Informa tion Online using Patient Portal and [employer] Apps Indication:Nonsmoker Start:15-Oct-2021 Instruction Type:Patient Education Patient Instructions Indication:Nonsmoker Start:05-Jul-2021 Instruction Type:Provider Instructions for Treatment How to Access Health Informa tion Online using Patient Portal and [employer] Apps Indication:Nonsmoker Start:05-Jul-2021 Instruction Type:Patient Education Patient Instructions Indication:Nonsmoker Start:02-Jul-2021 Instruction Type:Provider Instructions for Treatment How to Access Health Informa tion Online using Patient Portal and [employer] Apps Indication:Nonsmoker Start:02-Jul-2021 Instruction Type:Patient Education Patient Instructions Indication:Nonsmoker Start:09-Feb-2021 Instruction Type:Provider Instructions for Treatment How to Access Health Informa tion Online using Patient Portal and [employer] Apps Indication:Nonsmoker Start:09-Feb-2021 Instruction Type:Patient Education How to Access Health Informa tion Online using Patient Portal and [employer] Republican Apps Indication:Nonsmoker Start:22-Jan-2021 Instruction Type:Patient Education Patient Instructions Indication:Nonsmoker Start:22-Jan-2021 Instruction Type:Provider Instructions for Treatment Patient Instructions Indication:Nonsmoker Start:12-Oct-2020 Instruction Type:Provider Instructions for Treatment How to Access Health Informa tion Online using Patient Portal and [employer] Republican Apps Indication:Nonsmoker Start:12-Oct-2020 Instruction Type:Patient Education Patient Instructions Indication:BMI 21.0-21.9, adult Start:14-Sep-2020 Instruction Type:Provider Instructions for Treatment How to Access Health Informa tion Online using Patient Portal and [employer] Apps Indication:BMI 21.0-21.9, adult Start:14-Sep-2020 Instruction Type:Patient [...] Informa tion Online using Patient Portal and [employer] Apps Indication:Recurrent infections Start:30-Dec-2022 Instruction Type:Patient Education Patient Instructions Indication:Nonsmoker Start:16-Dec-2022 Instruction Type:Provider Instructions for Treatment How to Access Health Informa tion Online using Patient Portal and [employer] Apps Indication:Nonsmoker Start:16-Dec-2022 Instruction Type:Patient Education Patient Instructions Indication:Abnormal lung sounds Start:14-Oct-2022 Instruction Type:Provider Instructions for Treatment How to Access Health Informa tion Online using Patient Portal and [employer] Apps Indication:Abnormal lung sounds Start:14-Oct-2022 Instruction Type:Patient Education Patient Instructions Indication:BMI 23.0-23.9, adult Start:07-Oct-2022 Instruction Type:Provider Instructions for Treatment How to Access Health Informa tion Online using Patient Portal and [employer] Apps Indication:BMI 23.0-23.9, adult Start:07-Oct-2022 Instruction Type:Patient Education Patient Instructions Indication:Nonsmoker Start:12-Sep-2022 Instruction Type:Provider Instructions for Treatment How to Access Health Informa tion Online using Patient Portal and [employer] Apps Indication:Nonsmoker Start:12-Sep-2022 Instruction Type:Patient Education Patient Instructions Indication:BMI 23.0-23.9, adult Start:10-Jun-2022 Instruction Type:Provider Instructions for Treatment How to Access Health Informa tion Online using Patient Portal and [employer] Apps Indication:BMI 23.0-23.9, adult Start:10-Jun-2022 Instruction Type:Patient Education Patient Instructions Indication:Nonsmoker Start:26-Apr-2022 Instruction Type:Provider Instructions for Treatment How to Access Health Informa tion Online using Patient Portal and [employer] Apps Indication:Nonsmoker Start:26-Apr-2022 Instruction Type:Patient Education Patient Instructions Indication:Nonsmoker Start:22-Feb-2022 Instruction Type:Provider Instructions for Treatment How to Access Health Informa tion Online using Patient Portal and [employer] Apps Indication:Nonsmoker Start:22-Feb-2022 Instruction Type:Patient Education Patient Instructions Indication:Nonsmoker Start:15-Oct-2021 Instruction Type:Provider Instructions for Treatment How to Access Health Informa tion Online using Patient Portal and [employer] Apps Indication:Nonsmoker Start:15-Oct-2021 Instruction Type:Patient Education Patient Instructions Indication:Nonsmoker Start:05-Jul-2021 Instruction Type:Provider Instructions for Treatment How to Access Health Informa tion Online using Patient Portal and [employer] Apps Indication:Nonsmoker Start:05-Jul-2021 Instruction Type:Patient Education Patient Instructions Indication:Nonsmoker Start:02-Jul-2021 Instruction Type:Provider Instructions for Treatment How to Access Health Informa tion Online using Patient Portal and [employer] Apps Indication:Nonsmoker Start:02-Jul-2021 Instruction Type:Patient Education Patient Instructions Indication:Nonsmoker Start:09-Feb-2021 Instruction Type:Provider Instructions for Treatment How to Access Health Informa tion Online using Patient Portal and [employer] Apps Indication:Nonsmoker Start:09-Feb-2021 Instruction Type:Patient Education How to Access Health Informa tion Online using Patient Portal and [employer] Apps Indication:Nonsmoker Start:22-Jan-2021 Instruction Type:Patient Education Patient Instructions Indication:Nonsmoker Start:22-Jan-2021 Instruction Type:Provider Instructions for Treatment Patient Instructions Indication:Nonsmoker Start:12-Oct-2020 Instruction Type:Provider Instructions for Treatment How to Access Health Informa tion Online using Patient Portal and [employer] Apps Indication:Nonsmoker Start:12-Oct-2020 Instruction Type:Patient Education Patient Instructions Indication:BMI 21.0-21.9, adult Start:14-Sep-2020 Instruction Type:Provider Instructions for Treatment How to Access Health Informa tion Online using Patient Portal and [employer] Apps Indication:BMI 21.0-21.9, adult Start:14-Sep-2020 Instruction Type:Patient [...] tion Online using Patient Portal and [employer] Apps Indication:BMI 23.0-23.9, adult Start:05-Jan-2023 Instruction Type:Patient Education Patient Instructions Indication:Recurrent infections Start:30-Dec-2022 Instruction Type:Provider Instructions for Treatment How to Access Health Informa tion Online using Patient Portal and [employer] Apps Indication:Recurrent infections Start:30-Dec-2022 Instruction Type:Patient Education Patient Instructions Indication:Nonsmoker Start:16-Dec-2022 Instruction Type:Provider Instructions for Treatment How to Access Health Informa tion Online using Patient Portal and [employer] Apps Indication:Nonsmoker Start:16-Dec-2022 Instruction Type:Patient Education Patient Instructions Indication:Abnormal lung sounds Start:14-Oct-2022 Instruction Type:Provider Instructions for Treatment How to Access Health Informa tion Online using Patient Portal and [email or web address] Apps Indication:Abnormal lung sounds Start:14-Oct-2022 Instruction Type:Patient Education Patient Instructions Indication:BMI 23.0-23.9, adult Start:07-Oct-2022 Instruction Type:Provider Instructions for Treatment How to Access Health Informa tion Online using Patient Portal and [employer] Apps Indication:BMI 23.0-23.9, adult Start:07-Oct-2022 Instruction Type:Patient Education Patient Instructions Indication:Nonsmoker Start:12-Sep-2022 Instruction Type:Provider Instructions for Treatment How to Access Health Informa tion Online using Patient Portal and [employer] Apps Indication:Nonsmoker Start:12-Sep-2022 Instruction Type:Patient Education Patient Instructions Indication:BMI 23.0-23.9, adult Start:10-Jun-2022 Instruction Type:Provider Instructions for Treatment How to Access Health Informa tion Online using Patient Portal and [employer] Apps Indication:BMI 23.0-23.9, adult Start:10-Jun-2022 Instruction Type:Patient Education Patient Instructions Indication:Nonsmoker Start:26-Apr-2022 Instruction Type:Provider Instructions for Treatment How to Access Health Informa tion Online using Patient Portal and [employer] Apps Indication:Nonsmoker Start:26-Apr-2022 Instruction Type:Patient Education Patient Instructions Indication:Nonsmoker Start:22-Feb-2022 Instruction Type:Provider Instructions for Treatment How to Access Health Informa tion Online using Patient Portal and [employer] Apps Indication:Nonsmoker Start:22-Feb-2022 Instruction Type:Patient Education Patient Instructions Indication:Nonsmoker Start:15-Oct-2021 Instruction Type:Provider Instructions for Treatment How to Access Health Informa tion Online using Patient Portal and [employer] Apps Indication:Nonsmoker Start:15-Oct-2021 Instruction Type:Patient Education Patient Instructions Indication:Nonsmoker Start:05-Jul-2021 Instruction Type:Provider Instructions for Treatment How to Access Health Informa tion Online using Patient Portal and [employer] Apps Indication:Nonsmoker Start:05-Jul-2021 Instruction Type:Patient Education Patient Instructions Indication:Nonsmoker Start:02-Jul-2021 Instruction Type:Provider Instructions for Treatment How to Access Health Informa tion Online using Patient Portal and [employer] Apps Indication:Nonsmoker Start:02-Jul-2021 Instruction Type:Patient Education Patient Instructions Indication:Nonsmoker Start:09-Feb-2021 Instruction Type:Provider Instructions for Treatment How to Access Health Informa tion Online using Patient Portal and [employer] Apps Indication:Nonsmoker Start:09-Feb-2021 Instruction Type:Patient Education How to Access Health Informa tion Online using Patient Portal and [employer] Apps Indication:Nonsmoker Start:22-Jan-2021 Instruction Type:Patient Education Patient Instructions Indication:Nonsmoker Start:22-Jan-2021 Instruction Type:Provider Instructions for Treatment Patient Instructions Indication:Nonsmoker Start:12-Oct-2020 Instruction Type:Provider Instructions for Treatment How to Access Health Informa tion Online using Patient Portal and [employer] Apps Indication:Nonsmoker Start:12-Oct-2020 Instruction Type:Patient Education Patient Instructions Indication:BMI 21.0-21.9, adult Start:14-Sep-2020 Instruction Type:Provider Instructions for Treatment How to Access Health Informa tion Online using Patient Portal and [employer] Apps Indication:BMI 21.0-21.9, adult Start:14-Sep-2020 Instruction Type:Patient [...] Informa tion Online using Patient Portal and [employer] Apps Indication:BMI 23.0-23.9, adult Start:05-Jan-2023 Instruction Type:Patient Education Patient Instructions Indication:Recurrent infections Start:30-Dec-2022 Instruction Type:Provider Instructions for Treatment How to Access Health Informa tion Online using Patient Portal and [employer] Apps Indication:Recurrent infections Start:30-Dec-2022 Instruction Type:Patient Education Patient Instructions Indication:Nonsmoker Start:16-Dec-2022 Instruction Type:Provider Instructions for Treatment How to Access Health Informa tion Online using Patient Portal and [employer] Apps Indication:Nonsmoker Start:16-Dec-2022 Instruction Type:Patient Education Patient Instructions Indication:Abnormal lung sounds Start:14-Oct-2022 Instruction Type:Provider Instructions for Treatment How to Access Health Informa tion Online using Patient Portal and [employer] Apps Indication:Abnormal lung sounds Start:14-Oct-2022 Instruction Type:Patient Education Patient Instructions Indication:BMI 23.0-23.9, adult Start:07-Oct-2022 Instruction Type:Provider Instructions for Treatment How to Access Health Informa tion Online using Patient Portal and [employer] Apps Indication:BMI 23.0-23.9, adult Start:07-Oct-2022 Instruction Type:Patient Education Patient Instructions Indication:Nonsmoker Start:12-Sep-2022 Instruction Type:Provider Instructions for Treatment How to Access Health Informa tion Online using Patient Portal and [employer] Apps Indication:Nonsmoker Start:12-Sep-2022 Instruction Type:Patient Education Patient Instructions Indication:BMI 23.0-23.9, adult Start:10-Jun-2022 Instruction Type:Provider Instructions for Treatment How to Access Health Informa tion Online using Patient Portal and [employer] Apps Indication:BMI 23.0-23.9, adult Start:10-Jun-2022 Instruction Type:Patient Education Patient Instructions Indication:Nonsmoker Start:26-Apr-2022 Instruction Type:Provider Instructions for Treatment How to Access Health Informa tion Online using Patient Portal and [employer] Apps Indication:Nonsmoker Start:26-Apr-2022 Instruction Type:Patient Education Patient Instructions Indication:Nonsmoker Start:22-Feb-2022 Instruction Type:Provider Instructions for Treatment How to Access Health Informa tion Online using Patient Portal and [employer] Apps Indication:Nonsmoker Start:22-Feb-2022 Instruction Type:Patient Education Patient Instructions Indication:Nonsmoker Start:15-Oct-2021 Instruction Type:Provider Instructions for Treatment How to Access Health Informa tion Online using Patient Portal and [employer] Apps Indication:Nonsmoker Start:15-Oct-2021 Instruction Type:Patient Education Patient Instructions Indication:Nonsmoker Start:05-Jul-2021 Instruction Type:Provider Instructions for Treatment How to Access Health Informa tion Online using Patient Portal and [employer] Apps Indication:Nonsmoker Start:05-Jul-2021 Instruction Type:Patient Education Patient Instructions Indication:Nonsmoker Start:02-Jul-2021 Instruction Type:Provider Instructions for Treatment How to Access Health Informa tion Online using Patient Portal and [employer] Apps Indication:Nonsmoker Start:02-Jul-2021 Instruction Type:Patient Education Patient Instructions Indication:Nonsmoker Start:09-Feb-2021 Instruction Type:Provider Instructions for Treatment How to Access Health Informa tion Online using Patient Portal and [email or web address] Apps Indication:Nonsmoker Start:09-Feb-2021 Instruction Type:Patient Education How to Access Health Informa tion Online using Patient Portal and [email or web address] Apps Indication:Nonsmoker Start:22-Jan-2021 Instruction Type:Patient Education Patient Instructions Indication:Nonsmoker Start:22-Jan-2021 Instruction Type:Provider Instructions for Treatment Patient Instructions Indication:Nonsmoker Start:12-Oct-2020 Instruction Type:Provider Instructions for Treatment How to Access Health Informa tion Online using Patient Portal and [email or web address] Apps Indication:Nonsmoker Start:12-Oct-2020 Instruction Type:Patient Education Patient Instructions Indication:BMI 21.0-21.9, adult Start:14-Sep-2020 Instruction Type:Provider Instructions for Treatment How to Access Health Informa tion Online using Patient Portal and [email or web address] Apps Indication:BMI 21.0-21.9, adult Start:14-Sep-2020 Instruction Type:Patient [...] for referral (narrative)No [facility] [place] [facility]: Family History No Family History [...] Informa tion Online using Patient Portal and [email or web address] Apps Indication:Nonsmoker Start:12-Oct-2020 Instruction Type:Patient Education Patient Instructions Indication:BMI 21.0-21.9, adult Start:14-Sep-2020 Instruction Type:Provider Instructions for Treatment How to Access Health Informa tion Online using Patient Portal and [email or web address] Apps Indication:BMI 21.0-21.9, adult Start:14-Sep-2020 Instruction Type:Patient [...] Informa tion Online using Patient Portal and [email or web address] Apps Indication:Nonsmoker Start:12-Oct-2020 Instruction Type:Patient Education Patient Instructions Indication:BMI 21.0-21.9, adult Start:14-Sep-2020 Instruction Type:Provider Instructions for Treatment How to Access Health Informa tion Online using Patient Portal and [employer] Indication:BMI 21.0-21.9, adult Start:14-Sep-2020 Instruction Type:Patient [...] Will No September 12 11:11am Power of Graduate Assistant Athletic Trainer No September 12, 2020 11:11am Advance Directive Response Recorded Date/ Time Living Will No November 06, 2022 10:32pm Power of Graduate Assistant Athletic Trainer No November 06 10:32pm Advance Directive Response Recorded Date/ Time Living Will No March 13, 2023 10:04pm Power of Graduate Assistant Athletic Trainer No March 13 10:04pm Advance Directive Response Recorded Date/ Time Living Will No November 06, 2024 9:38pm Do you have a Healthcare Power of Graduate Assistant Athletic Trainer? No November 06, 2024 9:38pm Advance Directive Response Recorded Date/ Time Living Will No November 06, 2024 9:38pm Do you have a Healthcare Power of Graduate Assistant Athletic Trainer? No November 06, 2024 9:38pm Living Will No December 08, 2024 6:50am Do you have a Healthcare Power of Graduate Assistant Athletic Trainer? No December 08, 2024 6:50am Chief Complaint [...] section and content) DATE CREATED AUTHOR 01/23/2022 [facility] DATE CREATED AUTHOR AUTHOR'S ORGANIZ ATBRIAN 01/01/2023 [facility] DATE CREATED AUTHOR AUTHOR'S ORGANIZ ATION 12/09/2024 [facility] DATE CREATED AUTHOR AUTHOR'S ORGANIZ ATION 03/03/2025 [facility] Source Comments (unrecognize d section and content) In the event this informatio n is protected by the Federal Confidentiality of Alcohol and Drug Abuse Patient Records regulations: The Federal rules restrict any use of the information to criminally investigate or prosecute any alcohol or drug abuse patient.[facility] HealthIn the event this information is protected by the Federal Confidentiality of Alcohol and Drug Abuse Patient Records regulations: The Federal rules restrict any use of the information to criminally investigate or prosecute any alcohol or drug abuse patient.[facility] HealthIn the event this information is protected by the Federal Confidentiality of Alcohol and Drug Abuse Patient Records regulations: The Federal rules restrict any use of the information to criminally investigate or prosecute any alcohol or drug abuse patient.[facility] HealthIn the event this information is protected by the Federal Confidentiality of Alcohol and Drug Abuse Patient Records regulations: The Federal rules restrict any use of the information to criminally investigate or prosecute any alcohol or drug abuse patient.[facility] Reason for Visit (unrecogniz ed section and content) Reason Comments Cough cough, ST, and irrit ated eyes x 1.5 weeks Reason Comments Chest Congestion Cough, ST x7 daysCon junctivitis bilateral x7 days Reason Comments Information Care Teams (unrecognized sec tion and content) Toolroom Attendant Relationship Specialty Start Date End Date Yarelis Fitzpatrick DO PCP - General Internal Medicine 04/29/13 Toolroom Attendant Relationship Specialty Start Date End Date Yarelis [...] DO Attending Provider, Referring Pro vider Active Toolroom Attendant Relationship Specialty Start Date End Date No Primary Care[place] [address] PCP - General Pediatrics 02/09/23 Team Status: Active Member Role Status Dates Dr. Yarelis Fitzpatrick DO Primary Care Provider Active Dr. Rakesh Meeks DO Referring Provider, Other Provide r Active Dr. Adrien Millard MD Attending Provider Active Team Status: Inactive Member Role Status Dates Dr. Yarelis Fitzpatrick DO Primary Care Provider, Referr ing Provider Active Yesenia Hahn ROVER TENDER, ROVER TENDER-C Attending Provider Active Team Status: Inactive Member Role Status Dates Dr. Yarelis Fitzpatrick DO Primary Care Provider Active Yesenia Hahn ROVER TENDER, ROVER TENDER-C Attending Provider, Referrin g Provider Active Toolroom Attendant Relationship Specialty Start Date End Date Yarelis Fitzpatrick DO PCP - General Internal Medicine 04/29/13 Toolroom Attendant Relationship Specialty Start Date End Date No Primary Care, , [place] [address] PCP - General Pediatrics 02/09/23 Toolroom Attendant Relationship Specialty Start Date End Date Yarelis [...] BE BASED ON THE PRIMARY CLINICAL RECORDS. [facility]. provides no warranty or guarantee of the accuracy or completeness of information in this document.
--- NOTE | 2025-03-04 07:30 | PET_ITS ---
PROCEDURE: PET/CT TUMOR BASE -THIGH INIT 03/04/2025 REASON FOR EXAM: 49 y/o F with ABNORMAL FINDINGS IN LUNG FIELD Gallbladder is at rectal last not comfortable reading TECHNIQUE: Following the intravenous administration of radionucleotide, image acquisition on a dedicated PET/CT unit was performed at one hour post injection. A preliminary CT study encompassing the Skull base, neck, chest, abdomen, pelvis, and proximal thighs was performed for purposes of attenuation correction and anatomic localization. The proximal thighs were also included. The patient's blood glucose level was 85 mg/dL (allowable range: 50-180 mg/dL). RADIOPHARMACEUTICAL: 14.375 mCi 18F-FDG (Fluorodeoxyglucose F18) IV was injected into he patient. RADIATION DOSE SUMMARY: Effective Dose: Approximately 7 mSv for a standard whole-body PET scan Organ Doses: Varies by organ, with higher doses typically to the bladder, liver, and brain COMPARISON: COMPARISON FROM CT, PET OR OTHER PERTINENT EXAMS: . FINDINGS: Physiologic uptake: There may be expected metabolic uptake within the brain, tongue and floor of the mouth and larynx/vocal cords, heart, shay (many normal individuals have hilar uptake in less than 3 nodes with mildly avid hilar nodes less than 2.7 SUV), liver and spleen, system, and GI tract and symmetric muscle uptake. FDG AVID AND NON-AVID LESIONS. Reported avid SUV values (g/mL*) are maximum SUV. NECK: Physiologic uptake in the tonsillar pillars and Waldeyer's ring. no significant neck abnormalities. CHEST: Chest wall- There are no significant chest wall abnormalities. Axilla- There are no significant axillary abnormalities. Lung parenchyma- There are no significant lung parenchyma abnormalities. Mediastinum- There are no significant hilar or mediastinal adenopathy. Pleura- There are no significant pleural abnormalities. ABDOMEN: Stomach- No significant abnormalities. Liver- No significant abnormalities. Spleen- No significant abnormalities. Pancrease- No significant abnormalities. Kidneys- No significant abnormalities. Bowel- Normal bowel activity. Spine- No significant abnormalities. PELVIS: Bowel- Normal physiologic bowel activity is identified. Masses- There are no pelvic masses. LOWER EXTREMITIES: Bones- With the use of bone window settings, there are no osteolytic or osteoblastic lesions. There are no FDG avid lesions within the visualized portion of the axial skeleton. PET/PET/CT Tumor Base -Thigh Init IMPRESSION: FDG avid- No significant avid lesions. Especially noted, no abnormal lung acti vity. Suspicious- No significant suspicious abnormalities. Non-FDG avid- No non-FDG avid cysts. Other: No additional comments. Please note the low-dose CT scan was performed to facilitate PET image reconstr uction and anatomic localization and does not replace a diagnostic CT. Any diagnostic CT requested and performed at the time of the PET will be reported separately. Reading Location: [facility]
== END | disposition home or self-care (01) ==
LOC: ONC 07:13
PROVIDERS: PCP Internal Medicine; Referring Provider Internal Medicine Pulmonary Disease; Visit Provider Internal Medicine Pulmonary Disease
DX: R91.1 Solitary pulmonary nodule (principal)
CPT/HCPCS: 78815; A9552

== ENCOUNTER → 2025-04-28 | Outpatient (CLI) | payer OTHER, SELFPAY ==
--- OUTSIDE RECORDS SUMMARY | 2025-04-28 07:26 | XMS RPT_ITS | CCD ---
Author Organization [facility] [employer]ini[employer]ks Care Team Providers Care Manager Of School Name Role Phone Yarelis Fitzpatrick Unavailable Chris Villeda Unavailable Eliseo Corral Unavailable Gravius, Haydee Unavailable Unavailable Lissett Tolbert Unavailable Unavailable Slarb, Kiesha Unavailable Unavailable Unavailable Unavailable Ciesa, Lu Unavailable Erasmo Huynh Unavailable Unavailable Blanca Morrow Unavailable Unavailable Yarelis Fitzpatrick DO Unavailable Dr. Eliseo Corral Unavailable Erasmo Huynh LPN Unavailable Unavailable Lissett Tolbert RN Unavailable Unavailable Blanca Morrow LPN Unavailable Unavailable Ciesa ENGRAVER MACHINE, Lu Unavailable Slarb CYTOMETRY TECHNOLOGIST, Kiesha Unavailable Unavailable Unavailable Unavailable Gravenedelia MCGEE, Haydee Unavailable Unavailable Yarelis Fitzpatrick DO Primary Care Provider Yarelis Fitzpatrick DO Unavailable Yaa Calderon MA Unavailable Unavailable Pam Escamilla MD Unavailable Sylvia SHELLEYN, Ingrid Unavailable Unavailable [place] ANALYSIS ENGINEER, Kayela Unavailable Unavailable Manchak EVERARDO, Lyubov Unavailable Unavailable Yarelis Fitzpatrick DO Primary Care Provider Fast DO, Heydi A Unavailable Dylon Vazquez MD Unavailable Yarelis Fitzpatrick DO Attending Unavailable Yarelis Fitzpatrick DO Consulting Unavailable Dr. Yarelis Fitzpatrick Primary Care Provider Dr. Balta Whipple Attending Provider Dr. Yarelis Fitzpatrick Referring Provider Dr. Rakesh Meeks Attending Provider Glynn Barillas Ann Unavailable Patience Mtaute MA Unavailable Unavailable No toe lining closer, Md Primary Care Provider Domitila vailable Dr. Yarelis Fitzpatrick Primary Care Provider Dr. Rakesh Meeks Referring Provider Dr. Rakesh Meeks Other Provider Dr. Adrien Millard Attending Provider Dr. Yarelis Fitzpatrick Referring Provider Selma EXTRUDER, EXTRUDER-C Yesenia Attending Provider [phone] Yarelis Fitzpatrick DO Primary Care Provider No toe lining closer, Md Primary Care Provider Domitila vailable Dr. Yarelis Fitzpatrick DO Primary Care Provider Dr. Balta Whipple MD Attending Provider Kavon EXTRUDER-CKimberly Attending Provider Kavon EXTRUDER-CKimberly Referring Provider Dr. Yarelis Fitzpatrick DO Referring Provider Nasima EXTRUDER-CPatience Attending Provider Nasima SNEED-CPatience Referring Provider Dr. Yarelis Fitzpatrick DO Attending Provider Kavon EXTRUDER-CKimberly Other Provider Dr. Yordan Vanegas DO Referring Provider Dr. Yordan Vanegas DO Emergency Provider [phone] Yordan Vanegas DO Attending Provider [phone] Mike Mai MD Emergency Provider DYLON VAZQUEZ Referring Unavailable DYLON VAZQUEZ Attending Unavailable NO PRIMARY MD REAL Primary Care Unavailable DYLON VAZQUEZ Attending Unavailable NO PRIMARY CAREMD Primary Care Unavailable REFERRED, SELF Referring Unavailable DYLON VAZQUEZ Referring Unavailable DYLON VAZQUEZ Attending Unavailable NO PRIMARY CAREMD Primary Care Unavailable DOC, MISC Primary Care Unavailable DYLON VAZQUEZ Attending Unavailable REFERRED, SELF Referring Unavailable Seregi SIERRA, Dr. Mckeon Attending Provider LUIS M VAZQUEZ Attending Provider [phone] LUIS M VAZQUEZ Referring Provider [phone] Dr. Yarelis Fitzpatrick DO Primary Care Provider Nasima EXTRUDER-CPatience Attending Provider Nasima EXTRUDER-CPatience Referring Provider Dr. Yarelis Fitzpatrick DO Referring Provider Dr. Rajat Tarango MD, V Other Provider Dr. Yarelis Fitzpatrick DO Primary Care Provider Nasima EXTRUDER-CPatience Attending Provider Nasima EXTRUDER-CPatience Referring Provider Dr. Rajat Tarango MD, V Attending Provider Dr. Rajat Tarango MD, V Referring Provider Dr. Yarelis Fitzpatrick DO Primary Care Provider Dr. Yordan Vanegas DO Attending Provider Dr. Yordan Vanegas DO Referring Provider [phone] Nasima EXTRUDER-CPatience Attending Provider Nasima EXTRUDER-CPatience Referring Provider Yarelis Fitzpatrick Primary Care Unavailable Rajat Tarango V Attending Unavailable Rajat Tarango V Referring Unavailable Amari Ayrelis Primary Care Unavailable Patience Del Real Attending Unavailable Patience Del Real Attending Unavailable Patience Del Real Referring Unavailable AmariYarelis felix Primary Care Unavailable Amari, Yarelis Primary Care Unavailable Kimberly Jacobson Referring Unavailable Kimberly Jacobson Attending Unavailable AmariMagnoliaYarelis Attending Unavailable Amari, Yarelis Primary Care Unavailable Patience Del Real Referring Unavailable Kimberly Jacobson Consulting Unavailable Patience Del Real Attending Unavailable Patience Del Real Referring Unavailable Amari, Yarelis Primary Care Unavailable Amari, Yarelis Primary Care Unavailable [place]ordan Referring Unavailable [place] Attending Unavailable Amari, Yarelis Primary Care Unavailable Sarabjit, [place] Attending Unavailable Amari, Yarelis Referring Unavailable Patience Del Real Attending Unavailable Patience Del Real Referring Unavailable Patience Del Real Attending Unavailable Amari, Yarelis Primary Care Unavailable [place]Yordan Referring Unavailable [place], Yordan Attending Unavailable Amari, Yarelis Primary Care Unavailable Amari, [place] Primary Care Unavailable Mai, Mike Attending Unavailable Amari, [place] Primary Care Unavailable KavonKimberly crawford Referring Unavailable Kimberly Jacobson Attending Unavailable Amari, Yarelis Referring Unavailable RuPatience castaneda Attending Unavailable Amari, [place] Primary Care Unavailable Amari, [place] Primary Care Unavailable JERONIMO DOVE Referring Unavailable JERONIMO DOVE Attending Unavailable Amari, [place] Primary Care Unavailable Patience Del Real Attending Unavailable Patience Del Real Referring Unavailable SibiliaRajat V Consulting Unavailable Amari, [place] Primary Care Unavailable SibiliaRajat V Attending Unavailable SibiliaRajat V Referring Unavailable Medications Current Medications Medication Drug Class(es) [...] Nare route 2 times daily 30 mL 02/09/2023 Active cefuroxime 500 mg oral tablet (4 sources) Cephalosporin Antibacterial Start: 01-14-2025 End: 01-14-2025 [...] immunoglobulin g, human 200 mg/ml prefilled syringe (12 sources) Human Immunoglobulin G Start: 08-30-19 Immun Glob G(Igg)-Pro-Iga 0-50 (Hizentra) 4 gram/20 mL (20 %) syringe Active 8 mg SC EVERY WEEK August 30, 2024 1:00am Start: 11-23-2023 immune globuli n, Human, 5gm (GAMMAGARD) 5 GM/50ML SOLN injection Infuse 250 mL (25 g) intravenously every 28 days 250 mL 11 11/23/2023 Active Start: 09-06-2023 Immune Globuli n, [...] package. 21 Each 12/18/2023 Active nebulizer kits (8 sources) Start: 08-30-2024 nebulizer kits Active 0 .ROUTE .MEDSUPPLY 1 August 30, 2024 1:00am Mass of upper lobe of right lung Other nonspecific abnormal finding of lung field As directed Start: 08-30-2024 nebulizer kits Active 0 .ROUTE .MEDSUPPLY August 30, 2024 1:00am As directed PEP device (9 sources) Start: 08-15-2023 PEP device Act titus 0 .ROUTE .MEDSUPPLY 1 August 15, 2023 1:00am Bronchiectasis Bronchiectasis, uncomplicated with training Start: 08-15-2023 PEP device Act titus 0 .ROUTE .MEDSUPPLY August 15, 2023 1:00am with training Start: 08-15-2023 PEP device Act titus 0 .ROUTE .MEDSUPPLY August 15, 2023 12:00am with training polymyxin b [id number] unt/ml / trimethoprim 1 mg/ml ophthalmic solution [...] mg tablet Active 60 mg PO DAILY 15 December 08, 2024 12:00am Start: 11-06-2022 End: [...] stop with food Take 2 tablets by [facility] once daily for 5 days. 40mg PO [...] sources) Opioid Agonist Start: 03-14-2023 End: 08-15-2023 Hydrocodone-Acetamin ophen 5-325 mg tablet Discontinued 1 {tbl} PO EVERY 6 HOURS NEEDED as needed for Pain 10 3 0 March 14, 2023 August 15, 2023 3:46pm Bilateral flank pain Renal colic Hiatal hernia Unspecified abdominal pain Unspecified renal colic Diaphragmatic hernia without obstruction or gangrene Start: 03-14-2023 End: 08-15-2023 take 1 tablet by mouth every six hours as needed Hydrocodone-Acetaminophen Discontinued 1 TABLET PO EVERY 6 HOURS NEEDED 10 3 March 14, 2023 August 15, 2023 2:46pm VICODIN, 5-500MG (Oral Tablet) 1 tab PRN for 0 days Refills: 0 Ordered: 30-Apr-2010 MANUEL Voss LPN Inactive Comments: given by dentist Comment on above: given by dentist acetaminophen 325 mg / oxyCODONE hydrochloride 5 mg oral tablet (12 sources) Opioid Agonist Start: 3 End: 3 Oxycodone-Acetaminop hen (Percocet) 5-325 mg tablet Discontinued 1 {tbl} PO EVERY 6 HOURS as needed for pain 12 3 0 November 07, 2022 January 24, 2023 6:47am Renal colic Unspecified renal colic [id number] 200 actuat albuterol 0.09 mg/actuat metered dose [...] DO, Kathleen Start : 10-Jun-2022 Active Comments: pradeep vizcaino box Start: 03-17-2022 End: 08-30-2024 Albuterol [...] Quantity: 20 {Tablet} Refills: 0 Ordered: 22-Jan-2021 Amari ROBLEDO Yarelis Feliciano DO Start : 22-Jan-2021 End : 01-Feb-2021 Inactive [...] mg tablet Discontinued 250 mg PO DAILY 4 0 November 06, 2024 12:00am January 14, 2025 [...] Quantity: 1 {Packet} Refills: 0 Ordered: 07-Oct-2022 Amadoushira MCGEE Lyubov Start : 29-Sep-2022 End : 07-Oct-2022 Inactive [...] Quantity: 30 {Capsule} Refills: 0 Ordered: 26-Apr-2022 SlaKiesha cheung LPN Start : 15-Oct-2021 End : 26-Apr-2022 [...] one box cefdinir 300 mg oral capsule (7 sources) Cephalosporin Antibacterial Start: 11-07-19 End: 01-15-20 [...] Quantity: 28 {Tablet_ER_24HR} Refills: 0 Ordered: 30-Apr-2010 ChachaKatia lopez Start : 01-Dec-2009 End : 15-Dec-2009 Inactive [...] Discontinued 100 mg PO TWICE A DAY 14 0 December 08, 2024 12:00am January 14, 2025 [...] Comment on above: Take 1 tablet by [facility] twice daily for 7 days. famotidine 20 mg oral tablet (20 sources) Histamine-2 Receptor Antagonist Start: 09-12-2020 End: 07-02-2021 take 1 tablet by mouth twice daily Pepcid 20 MG Oral Tablet 1 Tablet bid for 0 days Quantity: 120 {Tablet} Refills: 2 Ordered: 02-Jul-2021 Yaa Calderon MA Start : 19-Oct-2020 End : 02-Jul-2021 Inactive Start: 07-13-2020 take 2 tablets by mo [facility] twice daily Pepcid 20 MG Oral Tablet [...] {Tablet} Refills: 2 Ordered: 10-Jan-2020 Yarelis Fitzpatrick DOelvira ROBLEDO Yarelis Start : 10-Jan-2020 Active take 1 tablet [...] release oral tablet (20 sources) Start: 08-27-19 09 End: 01-01-20 09 MUCINEX, 600MG (Oral Tablet [...] 60 {Tablet} Refills: 2 Ordered: 22-Jun-2020 Amari DOYarelis DO, Kathleen Start : 22-Jun-2020 Active Comments: for itching Start: 06-15-2020 hydrOXYzine HC l 25 MG Oral Tablet 1 (one) Tablet q6-8hrs prn for 0 days Quantity: 60 {Tablet} Refills: 2 Ordered: 15-Jun-2020 Amari DO, Yarelis Fitzpatrick DOBubbaYarelis Start : 15-Jun-2020 Active Comments: for itching Start: 05-14-2020 hydrOXYzine HC l 25 MG Oral Tablet 1 (one) Tablet q6-8hrs prn for 0 days Quantity: 30 {Tablet} Refills: 0 Ordered: 14-May-2020 Amari DOYarelis DO, Kathleen Start : 14-May-2020 Active Comments: for itching Start: 04-15-2020 hydrOXYzine HC l 25 MG Oral Tablet 1 (one) Tablet q6-8hrs prn for 0 days Quantity: 30 {Tablet} Refills: 0 Ordered: 15-Apr-2020 Amari DO, Yarelis Fitzpatrick DOBubbaYarelis Start : 15-Apr-2020 Active Comments: for itching Start: 03-23-2020 hydrOXYzine HC l 25 MG Oral Tablet 1 (one) Tablet q6-8hrs prn for 0 days Quantity: 30 {Tablet} Refills: 0 Ordered: 23-Mar-2020 Amari DOYarelis DO, Kathleen Start : 23-Mar-2020 Active Comments: for itching [...] for nebulization Discontinued 0.63 mg INHALATION Q12H 90 October 01, 2024 8:56am December 20, 2024 9:29am Start: 08-30-2024 End: 08-30-2024 take 0.63 mg by inhalation once Levalbuterol Hcl 0.63 mg/3 mL solution for nebulization Discontinued 0.63 mg INHALATION ONCE 90 August 30, 2024 1:00am August 30, 2024 1:18pm levoFLOXacin 750 mg oral tablet (20 sources) Quinolone Antimicrobial Start: 10-21-2024 End: 10-31-2024 take 1 tablet by mouth every twenty-four hours Levofloxacin 750 mg tablet Discontinued 750 mg PO Q24H 10 10 October 21, 2024 1:00am October 30, 2024 12:00am October 31, 2024 12:13am Start: 08-30-2024 End: 10-21-2024 Levofloxacin 500 mg tablet Discontinued 500 mg PO daily 7 August 30, 2024 11:45am October 21, 2024 10:57am Mass of upper lobe of right lung Other nonspecific abnormal finding of lung field finish out 1st course and then begin this for a total of 14 days Start: 01-23-2023 End: 08-15-2023 take 1 tablet by mouth once daily Levofloxacin 500 mg tablet Discontinued 500 mg PO DAILY January 24, 2023 12:00am August 15, 2023 3:46pm x14 days Start: 02-22-2022 End: 10-12-2022 take 1 tablet [...] Medication vendor. Comment on above: Discontinued by [facility] vendor. ondansetron 4 mg disintegrating oral tablet (12 sources) Serotonin-3 Receptor Antagonist Start: 11-08-19 End: 01-25-20 take 1 tablet by mouth every eight hours as needed for nausea Ondansetron 4 mg tablet,disintegrati ng Discontinued 4 mg PO EVERY 8 HOURS NEEDED as needed for Nausea 14 0 November 07, 2022 12:00am January 24, 2023 6:46am raNITIdine 150 mg oral tablet (20 sources) Histamine-2 Receptor Antagonist Start: 02-05-20 13 End: 12-24-19 take 1 tablet by mouth [...] nasal spray (20 sources) Corticosteroid Start: 04-30-20 End: 02-05-20 13 NASACORT AQ, 55MCG/ACT (Nasal [...] Problem Date Documented Date Episodic/Chronic Abdominal hernia (10 sources) Hiatal hernia; Translations: [Diaphragmatic hernia without obstruction or gangrene] 03-22-2023 Episodic Abdominal pain (10 sources) Flank pain; Translations: [Unspecified abdominal pain] [...] [Unspecified renal colic] 11-07-2022 Episodic Cardiac dysrhythmias (5 sources) ECG: sinus tachycardia; Translations: [Tachycardia, unspecified] [...] Resolved: 10-14-2022 01-10-2020 Episodic Other circulatory disease (5 sources) Elevated blood-pressure reading without diagnosis of [...] 12-30-2022 12-16-2022 Episodic Other lower respiratory disease (19 sources) Lung mass; Translations: [Other nonspecific abnormal finding of lung field] 08-30-2024 Episodic Other lower respiratory disease (7 sources) Pleuritic pain; Translations: [Pleurodynia] 11-06-2024 Episodic Other lower respiratory disease (1 source) Solitary pulmonary nodule; Translations: [Solitary pulmonary nodule] Onset: 03-10-2025 Episodic Other lower respiratory disease (1 source) [...] transfer to [facility], had lung tapped by Sibilia which relieved shoulder pain. Now mild Other [...] symptoms. nodule RUL lobe 2012 , saw Valentina but then progressed. s/s with [...] in throat Episodic Other upper respiratory disease (5 sources) Acute bronchospasm; Translations: [Acute bronchospasm] 12-08-2024 [...] Test Name Value Interpretation Reference Range Facility Positron emission tomography scan reportOrdered By: Kayden Pelayo on 03-06-2025 PT Unspecified body region [facility] [address] [place] [address] PET/CT Tumor Base -Thigh Init MR#: [id number] Acct: [id number] Name: OFE GIMENEZ Rep #: [id number] : 1975 F 49 From: Pet er Peer DO PCP: Dr. Yarelis Fitzpatrick, DO Status: RE G CLI Study:PET/CT Tumor Base -Thigh Init Date of E xam: 03/04/25 Exam# [id number] Ordering Dr: Rajat Tarango MD PROCEDURE: PET/CT TUMOR BASE -THIGH INIT 03/04/2025 REASON FOR EXAM: 49 y/o F with ABNORMAL FINDINGS IN LUNG FIELD Gallbladder is at rectal last not comfortable reading TECHNIQUE: Following the intravenous administration of radionucleotide, image acquisition on a dedicated PET/CT unit was performed at one hour post injection. A preliminary CT study encompassing the Skull base, neck, chest, abdomen, pelvis, and proximal thighs was performed for purposes of attenuation correction and anatomic localization. The proximal thighs were also included. The patient's blood glucose level was 85 mg/dL (allowable range: 50-180 mg/dL). RADIOPHARMACEUTICAL: 14.375 mCi 18F-FDG (Fluorodeoxyglucose F18) IV was injectedinto he patient. RADIATION DOSE SUMMARY: Effective Dose: Approximately 7 mSv for a standard whole-body PET scan Organ Doses: Varies by organ, with higher doses typically to the bladder, liver,and brain COMPARISON: COMPARISON FROM CT, PET OR OTHER PERTINENT EXAMS: . FINDINGS: Physiologic uptake: There may be expected metabolic uptake within the brain, tongue and floor of the mouth and larynx/vocal cords, heart, shay (many normal individuals have hilar uptake in less than 3 nodes with mildly avid hilar nodes less than 2.7 SUV), liver and spleen, system, and GI tract and symmetric muscle uptake. FDG AVID AND NON-AVID LESIONS. Reported avid SUV values (g/mL*) are maximum SUV. NECK: Physiologic uptake in the tonsillar pillars and Waldeyer's ring. no significant neck abnormalities. CHEST: Chest wall- There are no significant chest wall abnormalities. Axilla- There are no significant axillary abnormalities. Lung parenchyma- There are no significant lung parenchyma abnormalities. Mediastinum- There are no significant hilar or mediastinal adenopathy. Pleura- There are no significant pleural abnormalities. ABDOMEN: Stomach- No significant abnormalities. Liver- No significant abnormalities. Spleen- No significant abnormalities. Pancrease- No significant abnormalities. Kidneys- No significant abnormalities. Bowel- Normal bowel activity. Spine- No significant abnormalities. PELVIS: Bowel- Normal physiologic bowel activity is identified. Masses- There are no pelvic masses. LOWER EXTREMITIES: Bones- With the use of bone window settings, there are no osteolytic or osteoblastic lesions. There are no FDG avid lesions within the visualized portion of the axial skeleton. PET/PET/CT Tumor Base -Thigh Init IMPRESSION: FDG avid- No significant avid lesions. Especially noted, no abnormal lung activity. Suspicious- No significant suspicious abnormalities. Non-FDG avid- No non-FDG avid cysts. Other: No additional comments. Please note the low-dose CT scan was performed to facilitate PET image reconstruction and anatomic localization and does not replace a diagnostic CT. Any diagnostic CT requested and performed at the time of the PET will be reported separately. Reading Location: [facility] CC: Dr. Yarelis Fitzpatrick DO; Dr. Rajat Tarango MD ~ City Controller: Signed [facility] PET/CT Tumor Base -Thigh Ini ton 03-04-2025 PET/CT Tumor Base -Thigh Init [facility] [address] [place] [id number] PET/CT Tumor Base -Thigh Init MR#: [id number] Acct: [id number] Name: OFE GIMENEZ Rep #: [id number] : 1975 F 49 From: Kayden Pelayo DO PCP: Dr. Yarelis Fitzpatrick DO Status: REG CLI Study: PET/CT Tumor Base -Thigh Init Date of Exam: Exam# [id number] Ordering Dr: Rajat Tarango MD PROCEDURE: PET/CT TUMOR BASE -THIGH INIT 03/04/2025 REASON FOR EXAM: 49 y/o F with ABNORMAL FINDINGS IN LUNG FIELD Gallbladder is at rectal last not comfortable reading TECHNIQUE: Following the intravenous administration of radionucleotide, image acquisition on a dedicated PET/CT unit was performed at one hour post injection. A preliminary CT study encompassing the Skull base, neck, chest, abdomen, pelvis, and proximal thighs was performed for purposes of attenuation correction and anatomic localization. The proximal thighs were also included. The patient's blood glucose level was 85 mg/dL (allowable range: 50-180 mg/dL). RADIOPHARMACEUTICAL: 14.375 mCi 18F-FDG (Fluorodeoxyglucose F18) IV was injected into he patient. RADIATION DOSE SUMMARY: Effective Dose: Approximately 7 mSv for a standard whole-body PET scan Organ Doses: Varies by organ, with higher doses typically to the bladder, liver, and brain COMPARISON: COMPARISON FROM CT, PET OR OTHER PERTINENT EXAMS: . FINDINGS: Physiologic uptake: There may be expected metabolic uptake within the brain, tongue and floor of the mouth and larynx/vocal cords, heart, shay (many normal individuals have hilar uptake in less than 3 nodes with mildly avid hilar nodes less than 2.7 SUV), liver and spleen, system, and GI tract and symmetric muscle uptake. FDG AVID AND NON-AVID LESIONS. Reported avid SUV values (g/mL*) are maximum SUV. NECK: Physiologic uptake in the tonsillar pillars and Waldeyer's ring. no significant neck abnormalities. CHEST: Chest wall- There are no significant chest wall abnormalities. Axilla- There are no significant axillary abnormalities. Lung parenchyma- There are no significant lung parenchyma abnormalities. Mediastinum- There are no significant hilar or mediastinal adenopathy. Pleura- There are no significant pleural abnormalities. ABDOMEN: Stomach- No significant abnormalities. Liver- No significant abnormalities. Spleen- No significant abnormalities. Pancrease- No significant abnormalities. Kidneys- No significant abnormalities. Bowel- Normal bowel activity. Spine- No significant abnormalities. PELVIS: Bowel- Normal physiologic bowel activity is identified. Masses- There are no pelvic masses. LOWER EXTREMITIES: Bones- With the use of bone window settings, there are no osteolytic or osteoblastic lesions. There are no FDG avid lesions within the visualized portion of the axial skeleton. PET/PET/CT Tumor Base -Thigh Init IMPRESSION: FDG avid- No significant avid lesions. Especially noted, no abnormal lung activity. Suspicious- No significant suspicious abnormalities. Non-FDG avid- No non-FDG avid cysts. Other: No additional comments. Please note the low-dose CT scan was performed to facilitate PET image reconstruction and anatomic localization and does not replace a diagnostic CT. Any diagnostic CT requested and performed at the time of the PET will be reported separately. Reading Location[facility] CC: Dr. Yarelis Fitzpatrick DO; Dr. Rajat Tarango MD City Controller: Signed Normal [facility] Respiratory Cultureon 2024 RESPC Mixed normal respira tory nanda. No Haemophilus, Streptococcus pneumoniae, beta-hemolytic Streptococcus or Staphylococcus aureus isolated. Normal [facility] Comment on above: Performed By: #### M 100.2400, #### [facility] [address] [place], [place], [id number] Gram Stainon 01-31-2025 GS Acceptable Specimen? Yes (<25 Epithelial cells per/lpf) Gram Stain 2+ Gram positive cocci 1+ Gram positive rods 1+ Gram negative rods Rare Epithelial cells Normal [facility] Comment on above: Performed By: #### M 100.2400, #### [facility] [address] [place], [place], [id number] Gram stainOrdered By: Rajat Tarango on 01-30-2025 Microscopic observation Gram stain Nom (Unsp spec) [facility] Microbial respiratory cultur eOrdered By: Rajat Tarango on 01-30-2025 Microorganism identified Cx Nom (Unsp spec) [facility] Respiratory Cultureon 2024 RESPC Copy of report [...] S Penicillin Islt CELENA 1 I Normal [facility] Comment on above: Performed By: #### M 100.2400, #### [facility] [address] [place], [place], [address] Gram Stainon 01-11-2025 GS Acceptable Specimen? Yes (<25 Epithelial cells per/lpf) Gram Stain 2+ Gram negative rods 1+ Gram positive rods 2+ Gram positive cocci 1+ White Blood Cells Rare Epithelial cells Normal [facility] Comment on above: Performed By: #### M 100.2400, M100.1999 #### [facility] [address] [place], [place], [address] Gram stainOrdered By: NAREN Del Real on 01-11-2025 Microscopic observation Gram stain Nom (Unsp spec) [facility] Microbial respiratory cultur eOrdered By: NAREN Del Real on 01-11-2025 Microorganism identified Cx Nom (Unsp spec) Streptococcus pneumoniae Abnormal [facility] Microorganism identified Cx Nom (Unsp spec) Haemophilus influenzae Abnormal [facility] Immunoglobulin Dilip 5 IMMUNOGLOB G QN 936 mg/dL Normal [phone] [facility] Comment on above: Result Comment: Perf ormed at: [facility] [address] [place], [place] [id number] Movement Assembly Final Inspector: Ramsey Oleary PhD, Phone: [phone] Performed By: #### L [id number] #### [facility] [address] [place], [place], [address] Serum or plasma IgG measurem ent (mass/volume)on 12-21-2024 IgG [Mass/Vol] 936 mg/dL [phone] [facility] Comment on above: Performed at: [facility] [address] [place] [id number] Director: Ramsey Oleary PhD, Phone: [phone] Progress Noteon 12-09-2024 Mail Messenger Contractor Authentication Interface Message Text Ofe is a 49 y.o. female who presents to our office today for a follow up visit. She was last seen on 06/10/24 and before this on 12/18/23 and before this on 07/07/23 and she was seen initially on 02/09/23 for evaluation secondary to concerns from her PCP Dr. Yarelis Fitzpatrick (see referral in [facility]). 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 Meeks (Animal Care Taker in [place]) and she had done this once and [...] was tolerated. -Due to her seeing a Animal Care Taker (Dr. Meeks), I held off on spirometry at her initial visit and food and environmental allergen testing did not appear to be indicated and this was discussed with her. At her initial visit, I ordered IgG, IgA, IgM and IgE levels, lymphocyte profile, tetanus titer, pneumococcal titers, HIV and Mitogen studies (9563) and on 02/13/23, IgG-242, IgA <5, IgM-23 [...] 07/07/23. She says her spirometry with her Animal Care Taker was normal and she did not have [...] then received a phone call from her Animal Care Taker's office and see 11/01/24. Received a call from Patience Del Real ENGRAVER MACHINE Pulmonology [facility] (phone # [phone] and #[phone]). She wanted to discuss Ofe who was [...] Pulmonology wi (more content not included)... Normal [facility] Absolute lymphocyte countOrd ered By: Mikekylie Mai on 12-08-2024 Lymphocytes Auto (Unsp spec) [#/Vol] 3.83 10*3/uL 0.83-4.51 [facility] Absolute neutrophil countOrd ered By: [facility] on 12-08-2024 Neutrophils (Bld) [#/Vol] 12.3 10*3/uL High 2.0-7.7 [facility] Anion gap in Serum or Plasma Ordered By: Mikekylie Mai on 12-08-2024 Anion gap [Moles/Vol] 12 mmol/L 5-15 [facility] Automated lymphocyte count a s percentage of total leukocytesOrdered By: [facility] on 12-08-2024 Lymphocytes/100 WBC Auto (Unsp spec) 21.5 % - [facility] BUN/creatinine ratioOrdered By: [facility] on 12-08-2024 Urea nitrogen/Creatinine [Mass ratio] 14.0 mg/mg - [facility] Basophil percentageOrdered B y: [facility] on 12-08-2024 Basophils/100 WBC (Bld) 0.4 % 0-1 [facility] Bilirubin, totalOrdered By: [facility] on 12-08-2024 Bilirubin [Mass/Vol] 0.29 mg/dL 0.00-1.30 [facility] CBC W/Diff, Automatedon 11-20 Absolute Lymph 3.83 X10 3/uL Normal 0.83-4.51 [facility] Comment on above: Performed By: #### M 100.2400, M100.1999 #### [facility] [address] [place], [address] Absolute Neut 12.3 X10 3/uL High 2.0-7.7 [facility] Comment on above: Performed By: #### M 100.2400, #### [facility] [address] [place], [address] Basophils/100 WBC (Bld) 0.4 % Normal 0-1 [facility] Comment on above: Performed By: #### M 100.2400, #### [facility] [address] [place], [address] Eosinophils/100 WBC (Bld) 0.7 % Normal 0-5 [facility] Comment on above: Performed By: #### M 100.2400, #### [facility] [address] [place], [address] Erythrocyte distribution width (RBC) [Ratio] 15.3 % High 11.6-14.6 [facility] Comment on above: Performed By: #### M 100.2400, #### [facility] [address] [place], [address] Hematocrit (Bld) [Volume fraction] 39.6 % Normal 37-47 [facility] Comment on above: Performed By: #### M 100.2400, #### [facility] [address] [place], [address] Hemoglobin (Bld) [Mass/Vol] 13.4 g/dL Normal 12.0-15.0 [facility] Comment on above: Performed By: #### M 100.2400, #### [facility] [address] [place], [address] IG% 0.500 Normal 0.0-0.9 [facility] Comment on above: Result Comment: IG% - Immature Granulocytes (promyelocytes, myelocytes and metamyelocytes) > 1% indicates that a LEFT SHIFT is Present. Performed By: #### M 100.2400, #### [facility] [address] [place], [address] Lymphocytes/100 WBC (Bld) 21.5 % Normal 19-41 [facility] Comment on above: Performed By: #### M 100.2400, #### [facility] [address] [place], [address] MCH (RBC) [Entitic mass] 27.3 pg Normal 27.0-32.0 [facility] Comment on above: Performed By: #### M 100.2400, #### [facility] [address] [place], [address] MCHC (RBC) [Mass/Vol] 33.8 g/dL Normal 32-36 [facility] Comment on above: Performed By: #### M 100.2400, #### [facility] [address] [place], [address] MCV (RBC) [Entitic vol] 80.8 fL Low 81-99 [facility] Comment on above: Performed By: #### M 100.2400, #### [facility] [address] [place], [address] Monocytes/100 WBC (Bld) 7.8 % Normal 0-10 [facility] Comment on above: Performed By: #### M 100.2400, #### [facility] [address] [place], [address] Neutrophils/100 WBC (Bld) 69.1 % Normal 47-70 [facility] Comment on above: Performed By: #### M 100.2400, #### [facility] [address] [place], [address] Nucleated RBC (Bld) [#/Vol] 0 10*3/uL Normal 0-5 [facility] Comment on above: Performed By: #### M , #### [facility] [address] [place], [address] Platelet mean volume (Bld) [Entitic vol] 9.6 fL Normal 6.2-12.0 [facility] Comment on above: Performed By: #### M , #### [facility] [address] [place], [address] Platelets (Bld) [#/Vol] 435 10*3/uL Normal 150-450 [facility] Comment on above: Performed By: #### M , #### [facility] [address] [place], [address] RBC (Bld) [#/Vol] 4.90 10*6/uL Normal 4.2-5.4 [facility] Comment on above: Performed By: #### M , #### [facility] [address] [place], [address] RDW SD 45.0 fl High 35.1-43.9 [facility] Comment on above: Performed By: #### M , #### [facility] [address] [place], [address] WBC (Bld) [#/Vol] 17.8 10*3/uL High 4.4-11.0 [facility] Comment on above: Performed By: #### M , #### [facility] [address] [place], [address] Carbon dioxide, total [Moles /volume] in Central venous bloodOrdered By: Mike Mai on 12-08-2024 CO2 [Moles/Vol] 25.5 mmol/L 21.0-32.0 [facility] Chest PA and Lateralon 12-08 Chest PA and Lateral [facility] Services [address] [place], [place] [address] Chest PA and Lateral MR#: [id number] Acct: [id number] Name: OFE GIMENEZ Rep #: [id number] : 1975 F 49 From: Santos Arana i, MD PCP: Dr. Yarelis Fitzpatrick DO Status: PRE ER Study: Chest PA and Lateral Date of Exam: 12/08/24 Exam# [id number] Ordering Dr: Mike Mai MD PROCEDURE: CHEST [...] infiltrate or consolidation is seen. Reading Location: [id number] CC: Dr. Yarelis Fitzpatrick DO; Dr. Mike Mai MD City Controller: Signed Normal [facility] Chloride assayOrdered By: Magy Mai on 12-08-2024 Chloride [Moles/Vol] 102 mmol/L 98-108 [facility] Comprehensive Metabolic Prof ilon 12-08-2024 Albumin [Mass/Vol] 4.3 g/dL Normal 3.5-5.0 [facility] Comment on above: Performed By: #### M 100.2400, M100.1999 #### [facility] [address] [place], [place], [address] Albumin/Globulin [Mass ratio] 1.5 {ratio} Normal 0.9-2.4 [facility] Comment on above: Performed By: #### M 100.2400, #### [facility] [address] [place], [address] ALK PHOS 145 U/L High 35-104 [facility] Comment on above: Performed By: #### M 100.240, #### [facility] [address] [place], [address] ALT [Catalytic activity/Vol] 29 U/L Normal <=34 [facility] Comment on above: Performed By: #### M 100.240, #### [facility] [address] [place], [address] AST [Catalytic activity/Vol] 30 U/L Normal <=31 [facility] Comment on above: Performed By: #### M 100.240, #### [facility] [address] [place], [address] Bilirubin [Mass/Vol] 0.29 mg/dL Normal 0.00-1.30 [facility] Comment on above: Performed By: #### M 100.2400, #### [facility] [address] [place], [address] BUN/CRE 14.0 RATIO Normal 10-20 [facility] Comment on above: Performed By: #### M 100.2400, #### [facility] [address] [place], [address] Calcium [Mass/Vol] 9.3 mg/dL Normal 7.6-11.0 [facility] Comment on above: Performed By: #### M 100.2400, #### [facility] [address] [place], [address] Chloride [Moles/Vol] 102 mmol/L Normal 98-108 [facility] Comment on above: Performed By: #### M 100.2400, #### [facility] [address] [place], [address] CO2 [Moles/Vol] 25.5 mmol/L Normal 21.0-32.0 [facility] Comment on above: Performed By: #### M 100.240, #### [facility] [address] [place], [address] Creatinine [Mass/Vol] 0.65 mg/dL Low 0.70-1.20 [facility] Comment on above: Performed By: #### M 100.2400, #### [facility] [address] [place], [address] ECRCL 95.86 ml/min Normal 50-250 [facility] Comment on above: Performed By: #### M 100.240, #### [facility] [address] [place], [address] GAP 12 Normal 5-15 [facility] Comment on above: Performed By: #### M 100.2400, #### [facility] [address] [place], [address] GFR/1.73 sq M.predicted among non-blacks MDRD (S/P/Bld) [Vol rate/Area] 107 mL/min/{1.73_m2} Normal >60 [facility] Comment on above: Result Comment: mL/m in/1.73m2 CKD-EPI Creatinine Equation (2020) Performed By: #### M 100.2400, #### [facility] [address] [place], [address] Globulin (S) [Mass/Vol] 2.9 g/dL Normal 2.2-4.2 [facility] Comment on above: Performed By: #### M 100.2400, M100.1999 #### [facility] [address] [place], [address] Glucose [Mass/Vol] 113 mg/dL High 70-99 [facility] Comment on above: Performed By: #### M 100.2400, .1999 #### [facility] [address] [place], [address] Potassium [Moles/Vol] 4.2 mmol/L Normal 3.3-5.1 [facility] Comment on above: Performed By: #### M 100.2400, .1999 #### [facility] [address] [place], [address] Sodium [Moles/Vol] 140 mmol/L Normal 133-145 [facility] Comment on above: Performed By: #### M 100.2400, .1999 #### [facility] [address] [place], [address] T PROT 7.2 g/dL Normal 5.9-8.4 [facility] Comment on above: Performed By: #### M 100.2400, #### [facility] [address] [place], [address] Urea nitrogen [Mass/Vol] 9 mg/dL Normal 4-19 [facility] Comment on above: Performed By: #### M 100.2400, #### [facility] [address] 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. She was prescribed azithromycin. Her fifth [...] Prior similar symptoms: Yes Recent Illness/Hospitalization: [facility] Medical History Immunoglobulin deficiency Mass of upper [...] Method R (more content not included)... Normal [facility] Eosinophil percentageOrdered By: Mike Mai on 12-08-2024 Eosinophils/100 WBC (Bld) 0.7 % 0-5 [facility] Erythrocyte distribution wid th (RBC) [Ratio]Ordered By: Mike Mai on 12-08-2024 Erythrocyte distribution width (RBC) [Entitic vol] 45.0 fL High 35.1-43.9 [facility] Erythrocyte distribution wid th ratioOrdered By: Mike Mai on 12-08-2024 Erythrocyte distribution width (RBC) [Ratio] 15.3 % High 11.6-14.6 [facility] Erythrocyte distribution wid th standard deviationOrdered By: Mikekylie Mai on 12-08-2024 Erythrocyte distribution width (RBC) [Ratio] 45.0 fl High 35.1-43.9 [facility] Estimation of creatinine boby aranceOrdered By: Mike Mai on 12-08-2024 Estimated Creatinine Clearance Calc 95.86 ml/min 50-250 [facility] GFR/1.73 sq M.predicted juan carlos g non-blacks MDRD (S/P/Bld) [Vol rate/Area]Ordered By: Mike Mai on 12-08-2024 Estimated GFR (MDRD) Non-Af Amer 107 >60 [facility] Comment on above: mL/min/1.73m2 CKD-EP I Creatinine Equation (2020) Glomerular filtration rate ( GFR) estimation/1.73 sq m using serum, plasma, or whole bOrdered By: Mike Mai on 12-08-2024 GFR/1.73 sq M.predicted among non-blacks MDRD (S/P/Bld) [Vol rate/Area] 107 mL/min/{1.73_m2} >60 [facility] Comment on above: mL/min/1.73m2 CKD-EP I Creatinine Equation (2020) Hematocrit Auto (Bld) [Volum e fraction]Ordered By: Mike Mai on 12-08-2024 Hematocrit (Bld) [Volume fraction] 39.6 % 37-47 [facility] Hemoglobin measurementOrdere d By: Mike Mai on 12-08-2024 Hemoglobin (Bld) [Mass/Vol] 13.4 g/dL 12.0-15.0 [facility] Immature granulocytes/100 WB C Auto (Bld)Ordered By: Mike Mai on 12-08-2024 Immature granulocytes/100 WBC (Bld) 0.500 % 0.0-0.9 [facility] Comment on above: IG% - Immature Granu locytes (promyelocytes, myelocytes and metamyelocytes) > 1% indicates that a LEFT SHIFT is Present. Influenza virus A and B and SARS-CoV-2 (COVID-19) and Respiratory syncytial virus RNAOrdered By: Mike Mai on 12-08-2024 SARS-CoV-2 (COVID-19) RNA MICHELLE+probe Ql (Unsp spec) [facility] - Chemistry and C hemistry - challengeOrdered By: Mike Mai on 12-08-2024 AST [Catalytic activity/Vol] 30 U/L <32 [facility] Lactic Acidon 12-08-2024 Lactate [Moles/Vol] 1.3 mmol/L Normal 0.0-2.0 [facility] Comment on above: Order Comment: Y Performed By: #### M 100.2400, #### [facility] [address] [place], [place], [id number] Lactic acid measurementOrder ed By: Mike Mai on 12-08-2024 Lactate [Moles/Vol] 1.3 mmol/L 0.0-2.0 [facility] Lymphocytes Auto (Unsp spec) [#/Vol]Ordered By: Mike Mai on 12-08-2024 Lymphocytes (Bld) [#/Vol] 3.83 10*3/uL 0.83-4.51 [facility] Lymphocytes/100 WBC Auto (Un sp spec)Ordered By: Mike Mai on 12-08-2024 Lymphocytes/100 WBC (Bld) 21.5 % 19-41 [facility] M100.678on 12-08-2024 M100.678 SARS-CoV-2 (COVID 19 ) Negative INFLUENZA A Negative INFLUENZA B Negative RSV PCR Negative Normal [facility] Comment on above: Performed By: #### M 100.2400, M1 #### [facility] [address] [place], [address] MCV (mean corpuscular volume ) determinationOrdered By: Mike Mai on 12-08-2024 MCV (RBC) [Entitic vol] 80.8 fL Low 81-99 [facility] Mean corpuscular hemoglobin (MCH) determinationOrdered By: Mike Mai on 12-08-2024 MCH (RBC) [Entitic mass] 27.3 pg 27.0-32.0 [facility] Mean corpuscular hemoglobin concentration (MCHC) determinationOrdered By: Mike Mai on 12-08-2024 MCHC (RBC) [Mass/Vol] 33.8 g/dL 32-36 [facility] Mean platelet volume determi nationOrdered By: Mike Mai on 12-08-2024 Platelet mean volume (Bld) [Entitic vol] 9.6 fL 6.2-12.0 [facility] Monocyte percentageOrdered B y: Mike Mai on 12-08-2024 Monocytes/100 WBC (Bld) 7.8 % 0-10 [facility] Neutrophil percentageOrdered By: Mike Mai on 12-08-2024 Neutrophils/100 WBC (Bld) 69.1 % 47-70 [facility] Nucleated red blood cell per centageOrdered By: Mike Mai on 12-08-2024 Nucleated RBC/100 WBC (Bld) [Ratio] 0 % 0-5 [facility] Platelet countOrdered By: [facility] Mai on 12-08-2024 Platelets (Bld) [#/Vol] 435 10*3/uL 150-450 [facility] Potassium (Unsp spec) [Mass/ Vol]Ordered By: Mikekylie Mai on 12-08-2024 Potassium [Moles/Vol] 4.2 mmol/L 3.3-5.1 [facility] Potassium measurement (mass/ volume)Ordered By: Mikekylie Mai on 12-08-2024 Potassium (Unsp spec) [Mass/Vol] 4.2 mmol/L 3.3-5.1 [facility] RBC Auto (Bld) [#/Vol]Ordere d By: Mike Mai on 12-08-2024 RBC (Bld) [#/Vol] 4.90 10*6/uL 4.2-5.4 [facility] Serum creatinine measurement (mass/volume)Ordered By: Mike Mai on 12-08-2024 Creatinine [Mass/Vol] 0.65 mg/dL Low 0.70-1.20 [facility] Serum globulin measurementOr dered By: Mike Mai on 12-08-2024 Globulin (S) [Mass/Vol] 2.9 g/dL 2.2-4.2 [facility] Serum glucose measurement (m ass/volume)Ordered By: Mike Mai on 12-08-2024 Glucose [Mass/Vol] 113 mg/dL High 70-99 [facility] Serum or plasma alanine ruby otransferase (ALT) measurementOrdered By: Mike Mai on 12-08-2024 ALT [Catalytic activity/Vol] 29 U/L <35 [facility] Serum or plasma albumin sanford urement (mass/volume)Ordered By: Mike Mai on 12-08-2024 Albumin [Mass/Vol] 4.3 g/dL 3.5-5.0 [facility] Serum or plasma albumin/glob ulin mass ratioOrdered By: Mike Mai on 12-08-2024 Albumin/Globulin [Mass ratio] 1.5 {ratio} 0.9-2.4 [facility] Serum or plasma alkaline neftali sphatase measurementOrdered By: Mike Mai 12-08-2024 ALP [Catalytic activity/Vol] 145 U/L High 35-104 [facility] Serum or plasma calcium sanford urement (mass/volume)Ordered By: Mike Mai on 12-08-2024 Calcium [Mass/Vol] 9.3 mg/dL 7.6-11.0 [facility] Serum or plasma urea nitroge n measurement (mass/volume)Ordered By: Mike Mai 12-08-2024 Urea nitrogen [Mass/Vol] 9 mg/dL 4-19 [facility] Sodium levelOrdered By: Mike Mai on 12-08-2024 Sodium [Moles/Vol] 140 mmol/L 133-145 [facility] Total proteinOrdered By: Mike Mai 12-08-2024 Protein [Mass/Vol] 7.2 g/dL 5.9-8.4 [facility] White blood cell (WBC) count Ordered By: Mike Mai on 12-08-2024 WBC (Bld) [#/Vol] 17.8 10*3/uL High 4.4-11.0 [facility] Respiratory Cultureon 2024 RESPC Streptococcus pneumo [...] S Penicillin Islt CELENA 0.12 I Normal [facility] Comment on above: Performed By: #### M 100.2400, M1.1999 #### [facility] [address] [place], [place], [id number] Gram Stainon 11-25-2024 GS Acceptable Specimen? Yes (<25 Epithelial cells per/lpf) Gram Stain 4+ Gram positive cocci 2+ White Blood Cells 1+ Epithelial cells 4+ Gram positive diplococci 4+ Gram positive rods 1+ Gram negative rods Normal [facility] Comment on above: Performed By: #### M 100.2400, M100.1999 #### [facility] [address] [place], [place], [id number] Gram stainOrdered By: Yordan Vanegas on 11-25-2024 Microscopic observation Gram stain Nom (Unsp spec) [facility] Microbial respiratory cultur eOrdered By: Yordan Vanegas on 11-25-2024 Microorganism identified Cx Nom (Unsp spec) Streptococcus pneumoniae Abnormal [facility] Microorganism identified Cx Nom (Unsp spec)Ordered By: Yordan Vanegas on 11-25-2024 Respiratory Culture Streptococcus pneumoniae Abnormal [facility] Culture, Blood (WB)on 2024 CUB Blood cultures x2, f rom two different sites No growth in 5 days. Normal [place] [facility] Comment on above: Performed By: #### M 200.1000 #### [facility] [address] [place], [place], [address] Respiratory Cultureon 2024 RESPC List Antibiotics to [...] Penicillin Islt CELENA 0.12 I [facility] Comment on above: Performed By: #### M 100.2400, M1.1999 #### [facility] [address] [place], [place], [address] Gram Stainon 11-07-2024 List Antibiotics to be Started? doxycycline, cefdinir Acceptable Specimen? Yes (<25 Epithelial cells per/lpf) Gram Stain Rare Gram positive rods 1+ Gram negative diplococci 2+ Gram positive cocci 1+ White Blood Cells No Epithelial cells * This is an amended result. * A prior result that was reported as final has been changed. 11/08/24 0744 by HUE [facility] Comment on above: Performed By: #### M 100.2400, M100.1999 #### [facility] [address] [place], [place], [address] Legionella Antigen Urineon 0 11-07-2024 LEGU URINE, CLEAN CATCH Legionella Antigen result interpretation: L pneumo Ag Ur Ql Negative Presumptive negative for Legionella pneumophila serogroup 1 antigen in urine, suggesting no recent or current infection. Legionella Ag, Urine Negative (See interpretation below) Normal [facility] Comment on above: Performed By: #### M 100.2400, M100.1999 #### [facility] [address] [place], [address] Strep pneumoniae Antig(UR,CS F)on 11-07-2024 STPAG URINE INTERPRETATION Strep pneumoniae Antig(UR,CSF) Strep pneumoniae Antig(UR,CSF) Negative Urine Presumptive negative for pneumococcal pneumonia, suggesting no current or recent pneumococcal infection. Infection due to S pneumoniae cannot be ruled out since the antigen present in the sample may be below the detection limit of the test. Strep pneumo Test Negative URINE (See interpretation below) Normal [facility] Comment on above: Performed By: #### M 100.2400, M100.1999 #### [facility] [address] [place], [place], [id number] 12 Lead EKGon 11-06-2024 12 Lead EKG [facility] Cardiovascular Services [address] [place] [id number] 12 Lead EKG 11/06/24 2218 MR#: [id number] Acct: [id number] Name: OFE GIMENEZ Rep #: [id number] : 1975 49 From: Balta Whipple MD [...] No significant change was found Confirmed by SARABJIT SIERRA, BALTA ([id number]), city editor KARLO DIAZ ([id number]) on 11/11/2024 7:33:43 AM Referred By: Yordan Vanegas Confirmed By: BALTA WHIPPLE MD 11/11/24 0733 Date Balta Whipple MD CC: Dr. Yordan Vanegas DO; Dr. Yarelis Fitzpatrick DO Signed Normal [facility] Absolute lymphocyte countOrd ered By: Yordan Vanegas on 11-06-2024 Lymphocytes Auto (Unsp spec) [#/Vol] 2.98 10*3/uL 0.83-4.51 [facility] Absolute neutrophil countOrd ered By: Yordan Vanegas on 11-06-2024 Neutrophils (Bld) [#/Vol] 15.7 10*3/uL High 2.0-7.7 [facility] Anion gap in Serum or Plasma Ordered By: Yordan Vanegas on 11-06-2024 Anion gap [Moles/Vol] 12 mmol/L 5-15 [facility] Automated lymphocyte count a s percentage of total leukocytesOrdered By: Yordan Vanegas on 11-06-2024 Lymphocytes/100 WBC Auto (Unsp spec) 14.8 % Low 19-41 [facility] BUN/creatinine ratioOrdered By: Yordan Vanegas on 11-06-2024 Urea nitrogen/Creatinine [Mass ratio] 15.6 mg/mg 10-20 [facility] Basophil percentageOrdered B y: Yordan Vanegas on 11-06-2024 Basophils/100 WBC (Bld) 0.5 % 0-1 [facility] Bilirubin Test strip Ql (U)O rdered By: Yordan Vanegas on 11-06-2024 Bilirubin Ql (U) Negative Negative [facility] Bilirubin, totalOrdered By: Yordan Vanegas on 11-06-2024 Bilirubin [Mass/Vol] 0.24 mg/dL 0.00-1.30 [facility] Blood cultureOrdered By: Frantz Vanegas on 11-06-2024 Bacteria identified Cx Nom (Bld) No growth in 5 days. [facility] Bacteria identified Cx Nom (Bld) No growth in 5 days. [facility] CBC W/Diff, Automatedon 10-19 Absolute Lymph 2.98 X10 3/uL Normal 0.83-4.51 [facility] Comment on above: Performed By: #### M 100.2400, #### [facility] [address] [place], [address] Absolute Neut 15.7 X10 3/uL High 2.0-7.7 [facility] Comment on above: Performed By: #### M 100.240, #### [facility] [address] [place], [address] Basophils/100 WBC (Bld) 0.5 % Normal 0-1 [facility] Comment on above: Performed By: #### M 100.240, #### [facility] [address] [place], [address] Eosinophils/100 WBC (Bld) 0.2 % Normal 0-5 [facility] Comment on above: Performed By: #### M 100.240, #### [facility] [address] [place], [address] Erythrocyte distribution width (RBC) [Ratio] 14.4 % Normal 11.6-14.6 [facility] Comment on above: Performed By: #### M 100.2400, #### [facility] [address] [place], [address] Hematocrit (Bld) [Volume fraction] 37.9 % Normal 37-47 [facility] Comment on above: Performed By: #### M 100.2400, #### [facility] [address] [place], [address] Hemoglobin (Bld) [Mass/Vol] 13.1 g/dL Normal 12.0-15.0 [facility] Comment on above: Performed By: #### M 100.240, #### [facility] [address] [place], [address] IG% 0.500 Normal 0.0-0.9 [facility] Comment on above: Result Comment: IG% - Immature Granulocytes (promyelocytes, myelocytes and metamyelocytes) > 1% indicates that a LEFT SHIFT is Present. Performed By: #### M 100.2400, #### [facility] [address] [place], [address] Lymphocytes/100 WBC (Bld) 14.8 % Low 19-41 [facility] Comment on above: Performed By: #### M 100.240, #### [facility] [address] [place], [address] MCH (RBC) [Entitic mass] 28.2 pg Normal 27.0-32.0 [facility] Comment on above: Performed By: #### M 100.240, #### [facility] [address] [place], [address] MCHC (RBC) [Mass/Vol] 34.6 g/dL Normal 32-36 [facility] Comment on above: Performed By: #### M 100.2400, #### [facility] [address] [place], [address] MCV (RBC) [Entitic vol] 81.5 fL Normal 81-99 [facility] Comment on above: Performed By: #### M 100.2400, #### [facility] [address] [place], [address] Monocytes/100 WBC (Bld) 6.4 % Normal 0-10 [facility] Comment on above: Performed By: #### M 100.2400, #### [facility] [address] [place], [address] Neutrophils/100 WBC (Bld) 77.6 % High 47-70 [facility] Comment on above: Performed By: #### M 100.240, #### [facility] [address] [place], [address] Nucleated RBC (Bld) [#/Vol] 0 10*3/uL Normal 0-5 [facility] Comment on above: Performed By: #### M .2399, #### [facility] [address] [place], [address] Platelet mean volume (Bld) [Entitic vol] 9.6 fL Normal 6.2-12.0 [facility] Comment on above: Performed By: #### M .240, #### [facility] [address] [place], [address] Platelets (Bld) [#/Vol] 536 10*3/uL High 150-450 [facility] Comment on above: Performed By: #### M , #### [facility] [address] [place], [address] RBC (Bld) [#/Vol] 4.65 10*6/uL Normal 4.2-5.4 [facility] Comment on above: Performed By: #### M .2399, #### [facility] [address] [place], [address] RDW SD 42.3 fl Normal 35.1-43.9 [facility] Comment on above: Performed By: #### M .2399, #### [facility] [address] [place], [address] WBC (Bld) [#/Vol] 20.2 10*3/uL High 4.4-11.0 [facility] Comment on above: Performed By: #### M 100.2400, M100.1999 #### [facility] [address] [place], [address] CTA Chest W/WO Contraston CTA Chest W/WO Contrast [facility] Imaging Services [address] [place] [address] CTA Chest W/WO Contrast MR#: [id number] Acct: [id number] Name: OFE GIMENEZ Rep #: [id number] : 1975 F 49 From: Zaki landeros MD PCP: Dr. Yarelis Fitzpatrick, DO Status: REG ER Study: CTA Chest W/WO Contrast Date of Exam: 11/06/24 Exam# [id number] Ordering Dr: Yordan Vanegas DO PROCEDURE: CTA [...] lobe, concerning for multifocal pneumonia. Reading Location: [place] CC: Dr. Yordan Vanegas, DO; Dr. Yarelis Fitzpatrick, DO City Controller: Signed Normal [facility] Carbon dioxide, total [Moles /volume] in Central venous bloodOrdered By: Yordan Vanegas on 11-06-2024 CO2 [Moles/Vol] 23.7 mmol/L 21.0-32.0 [facility] Chloride assayOrdered By: Gregory Vanegas on 11-06-2024 Chloride [Moles/Vol] 104 mmol/L 98-108 [facility] Comprehensive Metabolic Prof ilon 11-06-2024 Albumin [Mass/Vol] 4.2 g/dL Normal 3.5-5.0 [facility] Comment on above: Performed By: #### M 100.2400, #### [facility] [address] [place], [address] Albumin/Globulin [Mass ratio] 1.5 {ratio} Normal 0.9-2.4 [facility] Comment on above: Performed By: #### M 100.2400, #### [facility] [address] [place], [address] ALK PHOS 94 U/L Normal 35-104 [facility] Comment on above: Performed By: #### M 100.2400, #### [facility] [address] [place], [address] ALT [Catalytic activity/Vol] 21 U/L Normal <=34 [facility] Comment on above: Performed By: #### M 100.2400, #### [facility] [address] [place], [address] AST [Catalytic activity/Vol] 26 U/L Normal <=31 [facility] Comment on above: Performed By: #### M 100.2400, #### [facility] [address] [place], [address] Bilirubin [Mass/Vol] 0.24 mg/dL Normal 0.00-1.30 [facility] Comment on above: Performed By: #### M 100.240, #### [facility] [address] [place], [address] BUN/CRE 15.6 RATIO Normal 10-20 [facility] Comment on above: Performed By: #### M 100.240, #### [facility] [address] [place], [address] Calcium [Mass/Vol] 9.4 mg/dL Normal 7.6-11.0 [facility] Comment on above: Performed By: #### M .240, #### [facility] [address] [place], [address] Chloride [Moles/Vol] 104 mmol/L Normal 98-108 [facility] Comment on above: Performed By: #### M 100.240, #### [facility] [address] [place], [address] CO2 [Moles/Vol] 23.7 mmol/L Normal 21.0-32.0 [facility] Comment on above: Performed By: #### M 100.2400, #### [facility] [address] [place], [address] Creatinine [Mass/Vol] 0.77 mg/dL Normal 0.70-1.20 [facility] Comment on above: Performed By: #### M 100.2400, #### [facility] [address] [place], [address] ECRCL 80.92 ml/min Normal 50-250 [facility] Comment on above: Performed By: #### M 100.2400, #### [facility] [address] [place], [address] GAP 12 Normal 5-15 [facility] Comment on above: Performed By: #### M 100.2400, #### [facility] [address] [place], [address] GFR/1.73 sq M.predicted among non-blacks MDRD (S/P/Bld) [Vol rate/Area] 94 mL/min/{1.73_m2} Normal >60 [facility] Comment on above: Result Comment: mL/m in/1.73m2 CKD-EPI Creatinine Equation (2020) Performed By: #### M 100.240, #### [facility] [address] [place], [address] Globulin (S) [Mass/Vol] 2.7 g/dL Normal 2.2-4.2 [facility] Comment on above: Performed By: #### M 100.240, #### [facility] [address] [place], [address] Glucose [Mass/Vol] 139 mg/dL High 70-99 [facility] Comment on above: Performed By: #### M 100.240, #### [facility] [address] [place], [address] Potassium [Moles/Vol] 3.7 mmol/L Normal 3.3-5.1 [facility] Comment on above: Performed By: #### M 100.2400, #### [facility] [address] [place], [address] Sodium [Moles/Vol] 140 mmol/L Normal 133-145 [facility] Comment on above: Performed By: #### M 100.2400, M100.1999 #### [facility] [address] [place], [address] T PROT 6.9 g/dL Normal 5.9-8.4 [facility] Comment on above: Performed By: #### M 100.2400, M100.1999 #### [facility] [address] [place], [address] Urea nitrogen [Mass/Vol] 12 mg/dL Normal 4-19 [facility] Comment on above: Performed By: #### M 100.2400, M100.2000 #### [facility] [address] [place], [address] Emergency Department Summary on 11-06-2024 Emergency Department Summary [facility] Medical Records Department [address] [place] [address] Emergency Department Summary 11/06/24 MR#: [id number] Acct: [id number] Name: OFE GIMENEZ Rep #: [id number] : 1975 49 From: Yordan [place]ags DO PCP: Dr. Yarelis Fitzpatrick DO Status:REG [...] follows locally with pulmonology Dr. 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 Vazquez. In September of this [...] home oxygen. She is a lifelong non-smoker. [facility] Medical History (Updated 11/06/24 @ 23:10 by [...] and mois (more content not included)... Normal [facility] Eosinophil percentageOrdered By: Yordan Vanegas on 11-06-2024 Eosinophils/100 WBC (Bld) 0.2 % 0-5 [facility] Epithelial cells.squamous LM Ql (Urine sed)Ordered By: Yordan Vanegas on 11-06-2024 Epithelial cells.squamous LM.HPF (Urine sed) [#/Area] 0 /[HPF] 5-10 [facility] Erythrocyte distribution wid th ratioOrdered By: Yordan Vanegas on 11-06-2024 Erythrocyte distribution width (RBC) [Ratio] 14.4 % 11.6-14.6 [facility] Erythrocyte distribution wid th standard deviationOrdered By: Yordan Vanegas on 11-06-2024 Erythrocyte distribution width (RBC) [Entitic vol] 42.3 fL 35.1-43.9 [facility] Erythrocyte distribution width (RBC) [Ratio] 42.3 fl 35.1-43.9 [facility] Estimation of creatinine boby aranceOrdered By: Yordan Vanegas on 11-06-2024 Estimated Creatinine Clearance Calc 80.92 ml/min 50-250 [facility] GFR/1.73 sq M.predicted juan carlos g non-blacks MDRD (S/P/Bld) [Vol rate/Area]Ordered By: Yordan Vanegas on 11-06-2024 Estimated GFR (MDRD) Non-Af Amer 94 >60 [facility] Comment on above: mL/min/1.73m2 CKD-EP I Creatinine Equation (2020) Glomerular filtration rate ( GFR) estimation/1.73 sq m using serum, plasma, or whole bOrdered By: Yordan Vanegas on 11-06-2024 GFR/1.73 sq M.predicted among non-blacks MDRD (S/P/Bld) [Vol rate/Area] 94 mL/min/{1.73_m2} >60 [facility] Comment on above: mL/min/1.73m2 CKD-EP I Creatinine Equation (2020) Glucose Ql (U)Ordered By: Gregory Vanegas on 11-06-2024 Urine Glucose (UA) Normal mg/dl Normal [facility] Gram stainOrdered By: Yordan Vanegas on 11-06-2024 Microscopic observation Gram stain Nom (Unsp spec) [facility] Hematocrit Auto (Bld) [Volum e fraction]Ordered By: Yordan Vanegas on 11-06-2024 Hematocrit (Bld) [Volume fraction] 37.9 % 37-47 [facility] Hemoglobin measurementOrdere d By: Yordan Vanegas on 11-06-2024 Hemoglobin (Bld) [Mass/Vol] 13.1 g/dL 12.0-15.0 [facility] Immature granulocytes/100 WB C Auto (Bld)Ordered By: Yordan Vanegas on 11-06-2024 Immature granulocytes/100 WBC (Bld) 0.500 % 0.0-0.9 [facility] Comment on above: IG% - Immature Granu locytes (promyelocytes, myelocytes and metamyelocytes) > 1% indicates that a LEFT SHIFT is Present. Influenza virus A and B and SARS-CoV-2 (COVID-19) and Respiratory syncytial virus RNAOrdered By: Yordan Vanegas on 11-06-2024 SARS-CoV-2 (COVID-19) RNA MICHELLE+probe Ql (Unsp spec) [facility] Ketones Test strip Ql (U)Ord ered By: Yordan Vanegas on 11-06-2024 Ketones Ql (U) Negative Negative [facility] L. pneumophila Ag Ql (U)Orde red By: Yordan Vanegas on 11-06-2024 Legionella Antigen [facility] L501.4021on 11-06-2024 Trop T High Sen 7 ng/L Normal <=14 [facility] Comment on above: Performed By: #### L 501.4021 #### [facility] [address] [place], [address] Laboratory - Chemistry and C hemistry - challengeOrdered By: Yordan Vanegas on 11-06-2024 AST [Catalytic activity/Vol] 26 U/L <32 [facility] Lymphocytes Auto (Unsp spec) [#/Vol]Ordered By: Yordan Vanegas on 11-06-2024 Lymphocytes (Bld) [#/Vol] 2.98 10*3/uL 0.83-4.51 [facility] Lymphocytes/100 WBC Auto (Un sp spec)Ordered By: Yordan Vanegas on 11-06-2024 Lymphocytes/100 WBC (Bld) 14.8 % Low 19-41 [facility] M100.678on 11-06-2024 M100.678 Pending SARS-CoV-2 (COVID 19) Negative INFLUENZA A Negative INFLUENZA B Negative RSV PCR Negative Normal [facility] Comment on above: Performed By: #### M 100.678 #### [facility] [address] [place], [place], [address] MCV (mean corpuscular volume ) determinationOrdered By: Yordan Vanegas on 11-06-2024 MCV (RBC) [Entitic vol] 81.5 fL 81-99 [facility] Mean corpuscular hemoglobin (MCH) determinationOrdered By: Yordan Vanegas on 11-06-2024 MCH (RBC) [Entitic mass] 28.2 pg 27.0-32.0 [facility] Mean corpuscular hemoglobin concentration (MCHC) determinationOrdered By: Yordan Vanegas on 11-06-2024 MCHC (RBC) [Mass/Vol] 34.6 g/dL 32-36 [facility] Mean platelet volume determi nationOrdered By: Yordan Vanegas on 11-06-2024 Platelet mean volume (Bld) [Entitic vol] 9.6 fL 6.2-12.0 [facility] Microbial respiratory cultur eOrdered By: Yordan Vanegas on 11-06-2024 Microorganism identified Cx Nom (Unsp spec) Streptococcus pneumoniae Abnormal [facility] Microorganism identified Cx Nom (Unsp spec)Ordered By: Yordan Vanegas on 11-06-2024 Respiratory Culture Streptococcus pneumoniae Abnormal [facility] Microscopic analysis of urin e for red blood cells (RBC)Ordered By: Yordan Vanegas on 11-06-2024 Microscopic analysis of urine for red blood cells (RBC) 0 SEEN /hpf 0-5 [facility] Urine RBC 0 SEEN /hpf 0-5 [facility] Monocyte percentageOrdered B y: Yordan Vanegas on 11-06-2024 Monocytes/100 WBC (Bld) 6.4 % 0-10 [facility] Mucus LM Ql (Urine sed)Order ed By: Yordan Vanegas on 11-06-2024 Mucus Ql (Urine sed) 0 SEEN /hpf [facility] Neutrophil percentageOrdered By: Yordan Vanegas on 11-06-2024 Neutrophils/100 WBC (Bld) 77.6 % High 47-70 [facility] Nitrite Test strip Ql (U)Ord ered By: Yordan Vanegas on 11-06-2024 Nitrite Ql (U) Negative Negative [facility] No Panel InformationOrdered By: Yordan Vanegas on 11-06-2024 Troponin T High Sensitivity 7 ng/L <14 [facility] Nucleated red blood cell per centageOrdered By: Yordan Vanegas on 11-06-2024 Nucleated RBC/100 WBC (Bld) [Ratio] 0 % 0-5 [facility] Platelet countOrdered By: Gregory Vanegas on 11-06-2024 Platelets (Bld) [#/Vol] 536 10*3/uL High 150-450 [facility] Potassium (Unsp spec) [Mass/ Vol]Ordered By: Yordan Vanegas on 11-06-2024 Potassium [Moles/Vol] 3.7 mmol/L 3.3-5.1 [facility] Potassium measurement (mass/ volume)Ordered By: Yordan Vanegas on 11-06-2024 Potassium (Unsp spec) [Mass/Vol] 3.7 mmol/L 3.3-5.1 [facility] Protein Test strip Ql (U)Ord ered By: Yordan Vanegas on 11-06-2024 Protein Ql (U) Negative Negative [facility] RBC Auto (Bld) [#/Vol]Ordere d By: Yordan Vanegas on 11-06-2024 RBC (Bld) [#/Vol] 4.65 10*6/uL 4.2-5.4 [facility] Serum creatinine measurement (mass/volume)Ordered By: Yordan Vanegas on 11-06-2024 Creatinine [Mass/Vol] 0.77 mg/dL 0.70-1.20 [facility] Serum globulin measurementOr dered By: Yordan Vanegas on 11-06-2024 Globulin (S) [Mass/Vol] 2.7 g/dL 2.2-4.2 [facility] Serum glucose measurement (m ass/volume)Ordered By: Yordan Vanegas on 11-06-2024 Glucose [Mass/Vol] 139 mg/dL High 70-99 [facility] Serum or plasma alanine ruby otransferase (ALT) measurementOrdered By: Yordan Vanegas on 11-06-2024 ALT [Catalytic activity/Vol] 21 U/L <35 [facility] Serum or plasma albumin sanford urement (mass/volume)Ordered By: Yordan Vanegas on 11-06-2024 Albumin [Mass/Vol] 4.2 g/dL 3.5-5.0 [facility] Serum or plasma albumin/glob ulin mass ratioOrdered By: Yordan Vanegas on 11-06-2024 Albumin/Globulin [Mass ratio] 1.5 {ratio} 0.9-2.4 [facility] Serum or plasma alkaline neftali sphatase measurementOrdered By: Yordna Vanegas on 11-06-2024 ALP [Catalytic activity/Vol] 94 U/L 35-104 [facility] Serum or plasma calcium sanford urement (mass/volume)Ordered By: Yordan Vanegas on 11-06-2024 Calcium [Mass/Vol] 9.4 mg/dL 7.6-11.0 [facility] Serum or plasma urea nitroge n measurement (mass/volume)Ordered By: Yordan Vanegas on 11-06-2024 Urea nitrogen [Mass/Vol] 12 mg/dL 4-19 [facility] Sodium levelOrdered By: Jeferson Vanegas on 11-06-2024 Sodium [Moles/Vol] 140 mmol/L 133-145 [facility] Squamous epithelial cells de tection in urine sediment by light microscopyOrdered By: Yordan Vanegas on 11-06-2024 Epithelial cells.squamous LM Ql (Urine sed) 0 SEEN /hpf 5-10 [facility] Streptococcus pneumoniae ant igen assayOrdered By: Yordan Vanegas on 11-06-2024 Streptococcus pneumoniae Antigen (M [facility] Total proteinOrdered By: Frantz Vanegas on 11-06-2024 Protein [Mass/Vol] 6.9 g/dL 5.9-8.4 [facility] Urinalysis, Completeon 11-06 RBC 0 SEEN Normal 0-5 [facility] Comment on above: Order Comment: CLEAN CATCH Performed By: #### L 400.0001 #### [facility] [address] [place], [place], [id number] WBC 0-5 SEEN Normal 0-5 [facility] Comment on above: Order Comment: CLEAN CATCH Performed By: #### L 400.0001 #### [facility] [address] [place], [address] BACTERIA 0 SEEN Normal None Seen [facility] Comment on above: Order Comment: CLEAN CATCH Performed By: #### L 400.0001 #### [facility] [address] [place], [address] EPI,SQUAMOUS 0 SEEN Normal 5-10 [facility] Comment on above: Order Comment: CLEAN CATCH Performed By: #### L 400.0001 #### [facility] [address] [place], [address] Mucus Ql (Urine sed) 0 SEEN Normal [facility] Comment on above: Order Comment: CLEAN CATCH Performed By: #### L 400.0001 #### [facility] [address] [place], [address] Urine Legionella pneumophila antigen detectionOrdered By: Yordan Vanegas on 11-06-2024 L. pneumophila Ag Ql (U) [facility] Urine blood detectionOrdered By: Yordan Vanegas on 11-06-2024 Urine Occult Blood Negative Negative [facility] Urine clarityOrdered By: Frantz Vanegas on 11-06-2024 Clarity (U) Clear Clear [facility] Urine color determinationOrd ered By: Yordan Vanegas on 11-06-2024 Color (U) Yellow Yellow [facility] Urine glucose detectionOrder ed By: Yordan Vanegas on 11-06-2024 Glucose Ql (U) Normal mg/dl Normal [facility] Urine leukocyte esterase det ection by dipstickOrdered By: Yordan Vanegas on 11-06-2024 Leukocyte esterase Test strip Ql (U) Negative Negative [facility] Urine pHOrdered By: Yordan carranza on 11-06-2024 pH (U) 8.0 [pH] 5.0 - 8.0 [facility] Urine sediment bacteria coun t by microscopy (number/high power field)Ordered By: Yordan Vanegas on 11-06-2024 Bacteria LM.HPF (Urine sed) [#/Area] 0 /[HPF] None Seen [facility] Urine specific gravity measu rementOrdered By: Yordan Vanegas on 11-06-2024 Specific gravity (U) [Rel density] 1.010 1.002-1.030 [facility] Urine urobilinogen measureme ntOrdered By: Yordan Vanegas on 11-06-2024 Urobilinogen Ql (U) Normal mg/dl Normal [facility] Urobilinogen Ql (U)Ordered B y: Yordan Vanegas on 11-06-2024 Urine Urobilinogen Normal mg/dl Normal [facility] White blood cell (WBC) count Ordered By: Yordan Vanegas on 11-06-2024 WBC (Bld) [#/Vol] 20.2 10*3/uL High 4.4-11.0 [facility] White blood cell countOrdere d By: Yordan Vanegas on 11-06-2024 Urine WBC 0-5 SEEN /hpf 0-5 [facility] White blood cell count 0-5 SEEN /hpf 0-5 [facility] Pulmonary Visit Reporton Pulmonary Visit Report [facility] [address] [place] [address] OFFICE VISIT Date of Service: 11/01/24 MR#: [id number] Acct: [id number] Name: OFE GIMENEZ Rep #: [id number] : 1975 Provider: Patience Del Real NP Age/Sex: 49/F Location: [facility] Status: Signed Assessment and Plan Assessment [...] shortness of breath. Dr. 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 Normal [facility] Chest WITH Contraston 2024 Chest WITH Contrast [facility] [address] [place], [place] [address] Chest WITH Contrast MR#: [id number] Acct: [id number] Name: OFE GIMENEZ Rep #: [id number] : 1975 F 49 From: Luis doherty MD PCP: Dr. Yarelis Fitzpatrick, DO Status: REG CLI Study: Chest WITH Contrast Date of Exam: 10/15/24 Exam# [id number] Ordering Dr: Kimberly Jacobson EXTRUDER-C PROCEDURE: CHEST WITH CONTRAST REASON FOR EXAM: [...] use of iterative reconstruction technique). Reading Location: [id number] CC: DARRYN Jacobson; Dr. Yarelis Fitzpatrick DO City Controller: Signed Normal [facility] Respiratory Cultureon 2024 RESPC Streptococcus pneumo [...] S Penicillin Islt CELENA <=0.06 S Normal [facility] Comment on above: Performed By: #### M 100.2400, M1 #### [facility] [address] [place], [place], [id number] Gram Stainon 09-27-2024 GS Acceptable Specimen? Yes (<25 Epithelial cells per/lpf) Gram Stain 2+ Gram positive cocci Rare Gram positive rods 1+ White Blood Cells Normal [facility] Comment on above: Performed By: #### M 100.2400, M1 #### [facility] [address] [place], [place], [address] Gram stainOrdered By: NAREN Del Real on 09-27-2024 Microscopic observation Gram stain Nom (Unsp spec) [facility] Microbial respiratory cultur eOrdered By: NAREN Patience Nasima on 09-27-2024 Microorganism identified Cx Nom (Unsp spec) Streptococcus pneumoniae Abnormal [facility] Microorganism identified Cx Nom (Unsp spec)Ordered By: NAREN Del Real on 09-27-2024 Respiratory Culture Streptococcus pneumoniae Abnormal [facility] AFP, Tumor Markeron 09-06-19 25 AFP TUMOR OSVALDO 3.1 ng/mL Normal 0.0-9.2 [facility] Comment on above: Order Comment: EXTRUDER.CHAD COX ORDERED QTFNALL OTHER LAB EXTRUDER.CGRAHAMN Result Comment: [facility] [employer] Electrochemiluminescence Immunoassay (ECLIA) Values obtained with different assay methods or kits cannot be used interchangeably. Results cannot be interpreted as absolute evidence of the presence or absence of malignant disease. This test is not interpretable in females. Performed at: [address] [id number] Movement Assembly Final Inspector: Ramsey Oleary PhD, Phone: [phone] Performed By: #### M 037.1240, M100.1999 #### [facility] [address] [place], [place], [address] HCG BETA-SUBUNIT QUANT.on HCG B-SUBUNIT 2 mIU/mL Normal . [facility] Comment on above: Order Comment: DX ME DIASTINAL MASSNP.CHADUFCHUCKIE ORDERED QTFNALL OTHER LAB EXTRUDER.CGRAHAM Result Comment: Fema le (Non-) 0 - 5 (Postmenopausal) 0 - 8 Female () Weeks of Gestation 3 6 - 71 4 10 - 750 5 239 - 8073 6 141 - 50628 7 4163 -052403 8 34465 -666009 9 87827 -506164 10 24241 -558560 12 72469 -586302 14 99583 - 04624 15 77390 - 08468 16 0032 - 01819 17 5324 - 69946 18 7248 - 40550 Courtney ECLIA methodology Performed at: [facility] [address] [place], [place] [id number] Movement Assembly Final Inspector: Rasmey Oleary PhD, Phone: [phone] Performed By: #### M 100.2400, M1.1999 #### [facility] [address] [place], [address] Quantiferon TB-Gold+on 09-06 QFT MITOGEN KINGA > 10.00 Normal . [facility] Comment on above: Order Comment: EXTRUDER.LR UFENER ORDERED QTFNALL OTHER LAB EXTRUDER.CGRAHAMN Performed By: #### M 100.2400, M100.1999 #### [facility] [address] [place], [address] QFT NIL VALUE 0.06 IU/mL Normal . [facility] Comment on above: Order Comment: EXTRUDER.LR UFENER ORDERED QTFNALL OTHER LAB EXTRUDER.CGRAHAMN Performed By: #### M 100.2400, .1999 #### [facility] [address] [place], [address] QFT TB GOLD+ Comment Normal . [facility] Comment on above: Order Comment: EXTRUDER.LR UFENER ORDERED QTFNALL OTHER LAB EXTRUDER.CGRAHAMN Result Comment: Jesus tiFERON-TB Gold Plus is [...] Performed By: #### M 100.2400, M100.1999 #### [facility] [address] [place], [address] QFT TB POS CRIT Negative Normal Negative [facility] Comment on above: Order Comment: EXTRUDER.LR UFENER ORDERED QTFNALL OTHER LAB EXTRUDER.CGRAHAMN Result Comment: No r esponse to M [...] Performed By: #### M 100.2400, M100.1999 #### [facility] [address] [place], [address] QFT TB1+ AG KINGA 0.07 IU/mL Normal . [facility] Comment on above: Order Comment: EXTRUDERMILEY COX ORDERED QTFNALL OTHER LAB EXTRUDER.CGRAHAMN Performed By: #### M 100.2400, M100.1999 #### [facility] [address] [place], [address] QFT TB2+ AG KINGA 0.06 IU/mL Normal . [facility] Comment on above: Order Comment: EXTRUDER.CHAD COX ORDERED QTFNALL OTHER LAB EXTRUDER.CGRAHAMN Performed By: #### M 100.2400, M1.1999 #### [facility] [address] [place], [address] Absolute lymphocyte countOrd ered By: NAREN Del Real on 09-04-2024 Lymphocytes Auto (Unsp spec) [#/Vol] 2.99 10*3/uL 0.83-4.51 [facility] Absolute neutrophil countOrd ered By: NAREN Del Real on 09-04-2024 Neutrophils (Bld) [#/Vol] 4.1 10*3/uL 2.0-7.7 [facility] Alpha fetoprotein measuremen t as tumor markerOrdered By: NAREN Del Real on 09-04-2024 Tumor Marker Alpha Fetoprotein 3.1 ng/mL 0.0-9.2 [facility] Comment on above: [facility] ectrochemiluminescence Immunoassay(ECLIA)Values obtained with different assay methods or kits cannotbe used interchangeably. Results cannot be interpreted asabsolute evidence of the presence or absence of malignantdisease.This test is not interpretable in females.Performed at: [address] [id number] Director: Ramsey Oleary PhD, Phone: [phone] Automated blood erythrocyte countOrdered By: NAREN Del Real on 09-04-2024 RBC (Bld) [#/Vol] 4.45 10*6/uL Normal 4.2-5.4 [facility] Comment on above: Order Comment: EXTRUDER.CHAD COX ORDERED QTFN ALL OTHER LAB EXTRUDER.CGRAHAM Performed By: #### L 500.2500, L100.0100, L504.2610, L3100.5140, L100.9950, L3300.0700, L501.6710, L500.3400, L3400.8000 #### [facility] [address] [place], [place], [id number] Automated blood hematocrit ( percentage)Ordered By: NAREN Del Real on 09-04-2024 Hematocrit (Bld) [Volume fraction] 36.8 % Low 37-47 [facility] Comment on above: Order Comment: EXTRUDER.CHAD COX ORDERED QTFN ALL OTHER LAB EXTRUDER.CGRAHAM Performed By: #### L 500.2500, L100.0100, L504.2610, L3100.5140, L100.9950, L3300.0700, L501.6710, L500.3400, L3400.8000 #### [facility] [address] [place], [place], [address] Automated lymphocyte count a s percentage of total leukocytesOrdered By: NAREN Del Real on 09-04-2024 Lymphocytes/100 WBC (Bld) 38.3 % Normal 19-41 [facility] Comment on above: Order Comment: EXTRUDER.CHAD UFCHUCKIE ORDERED QTFN ALL OTHER LAB EXTRUDER.CGRAHAM Performed By: #### L 500.2500, L100.0100, L504.2610, L3100.5140, L100.9950, L3300.0700, L501.6710, L500.3400, L3400.8000 #### [facility] [address] [place], [address] Lymphocytes/100 WBC Auto (Unsp spec) 38.3 % 19-41 [facility] Basic Metabolic Profile (BMP )on 09-04-2024 BUN/CRE 11.1 RATIO Normal 10-20 [facility] Comment on above: Order Comment: EXTRUDER.LR UFENER ORDERED QTFNALL OTHER LAB EXTRUDER.CGRAHAM1 Performed By: #### M 100.2400, M1.1999 #### [facility] [address] [place], [address] CA,Total 8.8 mg/dL Normal 8.5-10.1 [facility] Comment on above: Order Comment: EXTRUDER.LR UFENER ORDERED QTFNALL OTHER LAB EXTRUDER.CGRAHAM1 Performed By: #### M 100.2400, M1.1999 #### [facility] [address] [place], [address] EST GFR - AA 96 mL/min Normal >60 [facility] Comment on above: Order Comment: EXTRUDER.LR UFENER ORDERED QTFNALL OTHER LAB EXTRUDER.CGRAHAM1 Result Comment: Afri can Yemeni GFR Calc Performed By: #### M 100.2400, M1.1999 #### [facility] [address] [place], [address] GAP 6 Normal 5-15 [facility] Comment on above: Order Comment: EXTRUDER.LR UFENER ORDERED QTFNALL OTHER LAB EXTRUDER.CGRAHAM1 Performed By: #### M 100.2400, M100.1999 #### [facility] [address] [place], [address] Basophil percentageOrdered B y: EXTRUDER Patience Del Real on 09-04-2024 Basophils/100 WBC (Bld) 1.2 % High 0-1 [facility] Comment on above: Order Comment: EXTRUDERMILEY COX ORDERED QTFN ALL OTHER LAB EXTRUDER.CGRAHAM Performed By: #### L 500.2500, L100.0100, L504.2610, L3100.5140, L100.9950, L3300.0700, L501.6710, L500.3400, L3400.8000 #### [facility] [address] [place], [place], [address] Bilirubin directOrdered By: NAREN Del Real on 09-04-2024 Bilirubin.direct [Mass/Vol] mg/dL 0.00-0.30 [facility] Bilirubin, totalOrdered By: NAREN Del Real on 09-04-2024 Bilirubin [Mass/Vol] 0.30 mg/dL Normal 0.20-1.00 [facility] Comment on above: For patients on eltr ombopag therapy, use of Dimension [place] TBIL is not recommended. Order Comment: WILLIAM COX ORDERED QTFNALL OTHER LAB EXTRUDER.KATHIE1 Result Comment: For patients on eltrombopag therapy, use of Dimension [place] TBIL is not recommended. Performed By: #### M 100.2400, M100.2000 #### [facility] [address] [place], [place], [address] Bilirubin.direct [Mass/Vol]O rdered By: NAREN Del Real on 09-04-2024 Direct Bilirubin < 0.05 mg/dL 0.00-0.30 [facility] Blood urea nitrogen (BUN)/cr eatinine ratioOrdered By: NAREN Del Real on 09-04-2024 Urea nitrogen/Creatinine [Mass ratio] 11.1 mg/mg 10-20 [facility] C-reactive protein measureme nt by high sensitivity methodOrdered By: NAREN Del Real on 09-04-2024 C-Reactive Protein Extended Range 3.30 mg/L High 0.0-3.0 [facility] Comment on above: C-Reactive Protein ( CRP) provides useful information for thediagnosis, therapy and monitoring of inflammatory processesand associated diseases. For the evaluation of Relative Riskfor Cardiovascular Disease, a High Sensitivity CRP (HSCRP)should be ordered. C-reactive protein measurement by high sensitivity method 3.30 mg/L High 0.0-3.0 [facility] Comment on above: C-Reactive Protein ( CRP) provides useful information for thediagnosis, therapy and monitoring of inflammatory processesand associated diseases. For the evaluation of Relative Riskfor Cardiovascular Disease, a High Sensitivity CRP (HSCRP)should be ordered. CBC W/Diff, Automatedon 08-21 Absolute Lymph 2.99 X10 3/uL Normal 0.83-4.51 [facility] Comment on above: Order Comment: EXTRUDER.LR UFENER ORDERED QTFN ALL OTHER LAB EXTRUDER.CGRAHAM Performed By: #### L 500.2500, L100.0100, L504.2610, L3100.5140, L100.9950, L3300.0700, L501.6710, L500.3400, L3400.8000 #### [facility] [address] [place], [place], [id number] Absolute Neut 4.1 X10 3/uL Normal 2.0-7.7 [facility] Comment on above: Order Comment: EXTRUDER.LR UFENER ORDERED QTFN ALL OTHER LAB EXTRUDER.CGRAHAM Performed By: #### L 500.2500, L100.0100, L504.2610, L3100.5140, L100.9950, L3300.0700, L501.6710, L500.3400, L3400.8000 #### [facility] [address] [place], [place], [address] IG% 0.300 Normal 0.0-0.9 [facility] Comment on above: Order Comment: EXTRUDER.LR UFENER ORDERED QTFN ALL OTHER LAB EXTRUDER.CGRAHAM Result Comment: IG% - Immature Granulocytes (promyelocytes, myelocytes and metamyelocytes) > 1% indicates that a LEFT SHIFT is Present. Performed By: #### L 500.2500, L100.0100, L504.2610, L3100.5140, L100.9950, L3300.0700, L501.6710, L500.3400, L3400.8000 #### [facility] [address] [place], [address] Nucleated RBC (Bld) [#/Vol] 0 10*3/uL Normal 0-5 [facility] Comment on above: Order Comment: EXTRUDER.LR UFENER ORDERED QTFN ALL OTHER LAB EXTRUDER.CGRAHAM Performed By: #### L 500.2500, L100.0100, L504.2610, L3100.5140, L100.9950, L3300.0700, L501.6710, L500.3400, L3400.8000 #### [facility] [address] [place], [address] RDW SD 40.9 fl Normal 35.1-43.9 [facility] Comment on above: Order Comment: EXTRUDER.LR UFENER ORDERED QTFN ALL OTHER LAB EXTRUDER.CGRAHAM Performed By: #### L 500.2500, L100.0100, L504.2610, L3100.5140, L100.9950, L3300.0700, L501.6710, L500.3400, L3400.8000 #### [facility] [address] [place], [address] CRPon 09-04-2024 C-REACTIVE PROT 3.30 mg/L High 0.0-3.0 [facility] Comment on above: Order Comment: EXTRUDER.LR UFENER ORDERED QTFNALL OTHER LAB EXTRUDER.CGRAHAM1 Result Comment: C-Re active Protein (CRP) provides useful information for the diagnosis, therapy and monitoring of inflammatory processes and associated diseases. For the evaluation of Relative Risk for Cardiovascular Disease, a High Sensitivity CRP (HSCRP) should be ordered. Performed By: #### M 100.2400, M100.2000 #### [facility] [address] [place], [address] Carbon dioxide measurementOr dered By: NAREN Del Real on 09-04-2024 CO2 [Moles/Vol] 30.0 mmol/L Normal 21.0-32.0 [facility] Comment on above: Order Comment: EXTRUDER.LR UFENER ORDERED QTFNALL OTHER LAB EXTRUDER.CGRAHAM1 Performed By: #### M 100.2400, M100.1999 #### [facility] [address] [place], [address] Chloride measurementOrdered By: NAREN Del Real on 09-04-2024 Chloride [Moles/Vol] 105 mmol/L Normal 98-107 [facility] Comment on above: Order Comment: EXTRUDER.LR UFENER ORDERED QTFNALL OTHER LAB EXTRUDER.CGRAHAM1 Performed By: #### M 100.2400, M100.1999 #### [facility] [address] [place], [address] Eosinophil percentageOrdered By: NAREN Del Real on 09-04-2024 Eosinophils/100 WBC (Bld) 0.8 % Normal 0-5 [facility] Comment on above: Order Comment: EXTRUDER.LR UFENER ORDERED QTFN ALL OTHER LAB EXTRUDER.CGRAHAM Performed By: #### L 500.2500, L100.0100, L504.2610, L3100.5140, L100.9950, L3300.0700, L501.6710, L500.3400, L3400.8000 #### [facility] [address], [place], [id number] (270) Erythrocyte distribution wid th ratioOrdered By: NAREN Del Real on 09-04-2024 Erythrocyte distribution width (RBC) [Ratio] 13.6 % Normal 11.6-14.6 [facility] Comment on above: Order Comment: EXTRUDER.LR UFENER ORDERED QTFN ALL OTHER LAB EXTRUDER.CGRAHAM Performed By: #### L 500.2500, L100.0100, L504.2610, L3100.5140, L100.9950, L3300.0700, L501.6710, L500.3400, L3400.8000 #### [facility] [address] [place], [address] Erythrocyte distribution wid th standard deviationOrdered By: NAREN Del Real on 09-04-2024 Erythrocyte distribution width (RBC) [Entitic vol] 40.9 fL 35.1-43.9 [facility] Erythrocyte distribution width (RBC) [Ratio] 40.9 fl 35.1-43.9 [facility] Estimated glomerular filtrat ion rate (GFR) AmericanOrdered By: NAREN Del Real on 09-04-2024 Estimated GFR (MDRD) Amer 96 mL/min >60 [facility] Comment on above: GFR Calc Glomerular filtration rate ( GFR) estimationOrdered By: NAREN Del Real on 09-04-2024 GFR/1.73 sq M.predicted among non-blacks MDRD (S/P/Bld) [Vol rate/Area] 79 mL/min/{1.73_m2} Normal >60 [facility] Comment on above: Non- GFR Calc Order Comment: WILLIAM UFENER ORDERED QTFNALL OTHER LAB EXTRUDER.CGRAHAM1 Result Comment: Non- GFR Calc Performed By: #### M 100.2400, M1 #### [facility] [address] [place], [place], [address] Estimated GFR (MDRD) Non-Af Amer 79 mL/min >60 [facility] Comment on above: Non- GFR Calc Glucose measurementOrdered B y: NAREN Del Real on 09-04-2024 Glucose [Mass/Vol] 137 mg/dL High 74-106 [facility] Comment on above: Fasting Glucose resu lt greater than or equal to 126 mg/dL suggests DIABETES MELLITUS per A.D.A. criteria. Order Comment: WILLIAM UFENER ORDERED QTFNALL OTHER LAB EXTRUDER.CGRAHAM1 Result Comment: Fast ing Glucose result greater than or equal to 126 mg/dL suggests DIABETES MELLITUS per A.D.A. criteria. Performed By: #### M 100.2400, M100 #### [facility] [address] [place], [place], [address] HCG, beta, subunitOrdered By : NAREN Del Real on 09-04-2024 HCG Beta Subunit 2 mIU/mL . [facility] Comment on above: Female (Non- ) 0 - 5 (Postmenopausal) 0 - 8 Female () Weeks of Gestation 3 6 - 71 4 10 - 750 5 217 - 7138 6 158 - 30328 7 3697 -769126 8 63399 -207105 9 70310 -964156 10 04080 -469268 12 83330 -929324 14 56514 - 12674 15 25113 - 57047 16 0740 - 61451 17 7093 - 04868 18 8099 - [address]Ceqvy ECLIA methodologyPerformed at: [facility] [id number] Director: Ramsey Oleary PhD, Phone: [phone] HCG, beta, subunit 2 mIU/mL . [facility] Comment on above: Female (Non- ) 0 - 5 (Postmenopausal) 0 - 8 Female () Weeks of Gestation 3 6 - 71 4 10 - 750 5 217 - 7138 6 158 - 90219 7 3697 -092178 8 42172 -332149 9 83600 -513052330 10 60391 -765878 12 85436 -082177 14 53095 - 08200 15 48564 - 77971 16 3313 - 50623 17 6338 - 83950 18 8059 - 82967Ormnm ECLIA methodologyPerformed at: [facility] [address] [id number] Director: Ramsey Oleary PhD, Phone: [phone] Hemoglobin (Reticulocytes) [ Entitic mass]Ordered By: NAREN Del Real on 09-04-2024 Reticulocyte Hemoglobin Equivalent 31.5 pg 30-35 [facility] Hemoglobin measurementOrdere d By: NAREN Del Real on 09-04-2024 Hemoglobin (Bld) [Mass/Vol] 12.4 g/dL Normal 12.0-15.0 [facility] Comment on above: Order Comment: WILLIAM COX ORDERED QTFN ALL OTHER LAB EXTRUDER.KATHIE Performed By: #### L 500.2500, L100.0100, L504.2610, L3100.5140, L100.9950, L3300.0700, L501.6710, L500.3400, L3400.8000 #### [facility] [address] [place], [address] Immature granulocytes/100 WB C Auto (Bld)Ordered By: NAREN Del Real on 09-04-2024 Immature granulocytes/100 WBC (Bld) 0.300 % 0.0-0.9 [facility] Comment on above: IG% - Immature Granu locytes (promyelocytes, myelocytes and metamyelocytes) > 1% indicates that a LEFT SHIFT is Present. Immature reticulocyte fracti onOrdered By: NAREN Del Real on 09-04-2024 Immature Reticulocyte Fraction 1.10 % Low 3.00-15.90 [facility] LDHon 09-04-2024 LDH 164 U/L Normal 84-246 [facility] Comment on above: Order Comment: EXTRUDER.LR UFENER ORDERED QTFNALL OTHER LAB EXTRUDER.CGRAHAM1 Performed By: #### M 100.2400, #### [facility] [address] [place], [address] Lactate dehydrogenase (LDH) measurementOrdered By: NAREN Del Real on 09-04-2024 LDH [Catalytic activity/Vol] 164 U/L 84-246 [facility] Liver Profileon 09-04-2024 ALK P 106 U/L Normal 45-117 [facility] Comment on above: Order Comment: EXTRUDER.LR UFENER ORDERED QTFNALL OTHER LAB EXTRUDER.CGRAHAM1 Performed By: #### M 100.2400, #### [facility] [address] [place], [address] D BILI < 0.05 Normal 0.00-0.30 [facility] Comment on above: Order Comment: EXTRUDER.LR UFENER ORDERED QTFNALL OTHER LAB EXTRUDER.CGRAHAM1 Performed By: #### M 100.2400, #### [facility] [address] [place], [address] T PROT 6.8 g/dL Normal 6.4-8.2 [facility] Comment on above: Order Comment: EXTRUDER.CHAD COX ORDERED QTFNALL OTHER LAB EXTRUDER.CGRISHI1 Performed By: #### M 100.2400, M1.1999 #### [facility] [address] [place], [address] Liver ProfileOrdered By: NAREN Del Real on 09-04-2024 AST [Catalytic activity/Vol] 17 U/L Normal 15-37 [facility] Comment on above: Order Comment: EXTRUDER.CHAD COX ORDERED QTFNALL OTHER LAB EXTRUDER.CGRISHI1 Performed By: #### M 100.2400, M1 #### [facility] [address] [place], [address] Lymphocytes Auto (Unsp spec) [#/Vol]Ordered By: NAREN Del Real on 09-04-2024 Lymphocytes (Bld) [#/Vol] 2.99 10*3/uL 0.83-4.51 [facility] M. tuberculosis tuberculin s gildardo IFN-g Ql (Bld)Ordered By: NAREN Del Real on 09-04-2024 TB Test (QFT) Antigen 1 0.07 IU/mL . [facility] MCV (mean corpuscular volume ) determinationOrdered By: NAREN Del Real on 09-04-2024 MCV (RBC) [Entitic vol] 82.7 fL Normal 81-99 [facility] Comment on above: Order Comment: EXTRUDER.CHAD COX ORDERED QTFN ALL OTHER LAB EXTRUDER.CGRAHAM Performed By: #### L 500.2500, L100.0100, L504.2610, L3100.5140, L100.9950, L3300.0700, L501.6710, L500.3400, L3400.8000 #### [facility] [address] [place], [address] Mean corpuscular hemoglobin (MCH) determinationOrdered By: NAREN Del Real on 09-04-2024 MCH (RBC) [Entitic mass] 27.9 pg Normal 27.0-32.0 [facility] Comment on above: Order Comment: EXTRUDER.LR UFENER ORDERED QTFN ALL OTHER LAB EXTRUDER.CGRAHAM Performed By: #### L 500.2500, L100.0100, L504.2610, L3100.5140, L100.9950, L3300.0700, L501.6710, L500.3400, L3400.8000 #### [facility] [address] [place], [address] Mean corpuscular hemoglobin concentration (MCHC) determinationOrdered By: NAREN Patience Del Real on 09-04-2024 MCHC (RBC) [Mass/Vol] 33.7 g/dL Normal 32-36 [facility] Comment on above: Order Comment: EXTRUDER.LR UFENER ORDERED QTFN ALL OTHER LAB EXTRUDER.CGRAHAM Performed By: #### L 500.2500, L100.0100, L504.2610, L3100.5140, L100.9950, L3300.0700, L501.6710, L500.3400, L3400.8000 #### [facility] [address] [place], [address] Mean platelet volume determi nationOrdered By: NAREN Patience Del Real on 09-04-2024 Platelet mean volume (Bld) [Entitic vol] 9.0 fL Normal 6.2-12.0 [facility] Comment on above: Order Comment: EXTRUDER.LR UFENER ORDERED QTFN ALL OTHER LAB EXTRUDER.CGRAHAM Performed By: #### L 500.2500, L100.0100, L504.2610, L3100.5140, L100.9950, L3300.0700, L501.6710, L500.3400, L3400.8000 #### [facility] [address], [place], [phone] ([phone] Monocyte percentageOrdered B y: NAREN Patience Del Real on 09-04-2024 Monocytes/100 WBC (Bld) 7.0 % Normal 0-10 [facility] Comment on above: Order Comment: EXTRUDER.LR UFENER ORDERED QTFN ALL OTHER LAB EXTRUDER.CGRAHAM Performed By: #### L 500.2500, L100.0100, L504.2610, L3100.5140, L100.9950, L3300.0700, L501.6710, L500.3400, L3400.8000 #### [facility] [address] [place], [place], [phone] ([phone]) Neutrophil percentageOrdered By: NAREN Del Real on 09-04-2024 Neutrophils/100 WBC (Bld) 52.4 % Normal 47-70 [facility] Comment on above: Order Comment: EXTRUDER.LR UFENER ORDERED QTFN ALL OTHER LAB EXTRUDER.CGRAHAM Performed By: #### L 500.2500, L100.0100, L504.2610, L3100.5140, L100.9950, L3300.0700, L501.6710, L500.3400, L3400.8000 #### [facility] [address] [place], [place], [phone] Nucleated red blood cell per centageOrdered By: NAREN Del Real on 09-04-2024 Nucleated RBC/100 WBC (Bld) [Ratio] 0 % 0-5 [facility] Platelet countOrdered By: NAREN Del Real on 09-04-2024 Platelets (Bld) [#/Vol] 513 10*3/uL High 150-450 [facility] Comment on above: Order Comment: EXTRUDER.LR UFENER ORDERED QTFN ALL OTHER LAB EXTRUDER.CGRAHAM Performed By: #### L 500.2500, L100.0100, L504.2610, L3100.5140, L100.9950, L3300.0700, L501.6710, L500.3400, L3400.8000 #### [facility] [address] [place], [place], [id number] Potassium measurementOrdered By: NAREN Del Real on 09-04-2024 Potassium [Moles/Vol] 3.6 mmol/L Normal 3.5-5.1 [facility] Comment on above: Order Comment: WILLIAM COX ORDERED QTFNALL OTHER LAB MIKE1 Performed By: #### M 100.2400, M100.1999 #### [facility] [address] [place], [address] Qualitative QuantiFERON-TB g old in tube testOrdered By: NAREN Del Real on 09-04-2024 M. tuberculosis tuberculin stim IFN-g Ql (Bld) 0.07 IU/mL . [facility] Quantiferon-TB Gold Plus moise tOrdered By: NAREN Del Real on 09-04-2024 TB Test (QFT) Comment . [facility] Comment on above: QuantiFERON-TB Gold Plus is [...] Test (QFT) Antigen 2 0.06 IU/mL . [facility] TB Test (QFT) Mitogen > 10.00 IU/mL . [facility] TB Test (QFT) Nil 0.06 IU/mL . [facility] TB Test (QFT) Positive Criteria Negative Negative [facility] Comment on above: No response to M [...] 09-04-2024 IM RET FRACTION 1.10 Low 3.00-15.90 [facility] Comment on above: Order Comment: EXTRUDER.LR UFENER ORDERED QTFNALL OTHER LAB EXTRUDER.CGRAHAM Performed By: #### M 100.2400, M1.1999 #### [facility] [address] [place], [address] RET-HE 31.5 pg Normal 30-35 [facility] Comment on above: Order Comment: EXTRUDER.LR UFENER ORDERED QTFNALL OTHER LAB EXTRUDER.CGRAHAM Performed By: #### M 100.2400, M1.1999 #### [facility] [address] [place], [address] Retic Count 0.46 Low 0.5-1.5 [facility] Comment on above: Order Comment: EXTRUDER.LR UFENER ORDERED QTFNALL OTHER LAB EXTRUDER.CGRAHAM Performed By: #### M 100.2400, .1999 #### [facility] [address] [place], [address] Reticulocyte hemoglobin equi valent (RET-He) measurementOrdered By: NAREN Del Real on 09-04-2024 Hemoglobin (Reticulocytes) [Entitic mass] 31.5 pg 30-35 [facility] Reticulocytes Auto (Bld) [#/ Vol]Ordered By: NAREN Del Real on 09-04-2024 Reticulocyte Count 0.46 % Low 0.5-1.5 [facility] Reticulocytes/100 RBC (Bld) 0.46 % Low 0.5-1.5 [facility] Serum anion gap measurementO rdered By: NAREN Del Real on 09-04-2024 Anion gap [Moles/Vol] 6 mmol/L 01-02 [facility] Serum globulin measurementOr dered By: NAREN Del Real on 09-04-2024 Globulin (S) [Mass/Vol] 3.2 g/dL Normal 2.2-4.2 [facility] Comment on above: Order Comment: EXTRUDER.LR UFENER ORDERED QTFNALL OTHER LAB EXTRUDER.CGRAHAM1 Performed By: #### M 100.2400, M100 #### [facility] [address] [place], [address] Serum or plasma alanine ruby otransferase (ALT) measurementOrdered By: NAREN Del Real on 09-04-2024 ALT [Catalytic activity/Vol] 22 U/L Normal 13-56 [facility] Comment on above: Order Comment: EXTRUDER.LR UFENER ORDERED QTFNALL OTHER LAB EXTRUDER.CGRAHAM1 Performed By: #### M 100.2400, M100 #### [facility] [address] [place], [address] Serum or plasma albumin sanford urement (mass/volume)Ordered By: NAREN Del Real on 09-04-2024 Albumin [Mass/Vol] 3.6 g/dL Normal 3.2-5.0 [facility] Comment on above: Order Comment: EXTRUDER.CHAD UFENER ORDERED QTFNALL OTHER LAB EXTRUDER.CGRAHAM1 Performed By: #### M 100.2400, M1 #### [facility] [address] [place], [place], [id number] Serum or plasma alkaline neftali sphatase measurementOrdered By: NAREN Del Real on 09-04-2024 ALP [Catalytic activity/Vol] 106 U/L 45-117 [facility] Serum or plasma calcium sanford urement (mass/volume)Ordered By: NAREN Del Real on 09-04-2024 Calcium [Mass/Vol] 8.8 mg/dL 8.5-10.1 [facility] Serum or plasma creatinine m easurement (mass/volume)Ordered By: NAREN Del Real on 09-04-2024 Creatinine [Mass/Vol] 0.81 mg/dL Normal 0.55-1.02 [facility] Comment on above: The validity of the calculated GFR & GFRAA in patients over 70 years has not been determined. Clinical correlation is essential. Order Comment: EXTRUDER.CHAD UFENER ORDERED QTFNALL OTHER LAB EXTRUDER.CGRAHAM1 Result Comment: The validity of the calculated GFR GFRAA in patients over 70 years has not been determined. Clinical correlation is essential. Performed By: #### M 100.2400, M1 #### [facility] [address], [place], [phone] Serum or plasma urea nitroge n measurement (mass/volume)Ordered By: NAREN Del Real on 09-04-2024 Urea nitrogen [Mass/Vol] 9 mg/dL Normal 7-18 [facility] Comment on above: Order Comment: EXTRUDER.LR UFENER ORDERED QTFNALL OTHER LAB EXTRUDER.CGRAHAM1 Performed By: #### M 100.2400, M1 #### [facility] [address], [place], [id number] Sodium levelOrdered By: NAREN Del Real on 09-04-2024 Sodium [Moles/Vol] 140 mmol/L Normal 136-145 [facility] Comment on above: Order Comment: EXTRUDER.LR UFENER ORDERED QTFNALL OTHER LAB EXTRUDER.CGRAHAM1 Performed By: #### M 100.2400, #### [facility] [address], [place], [id number] Total proteinOrdered By: NAREN Del Real on 09-04-2024 Protein [Mass/Vol] 6.8 g/dL 6.4-8.2 [facility] White blood cell (WBC) count Ordered By: NAREN Del Real on 09-04-2024 WBC (Bld) [#/Vol] 7.8 10*3/uL Normal 4.4-11.0 [facility] Comment on above: Order Comment: EXTRUDER.LR UFENER ORDERED QTFN ALL OTHER LAB EXTRUDER.CGRAHAM Performed By: #### L 500.2500, L100.0100, L504.2610, L3100.5140, L100.9950, L3300.0700, L501.6710, L500.3400, L3400.8000 #### [facility] [address] [place], [place], [phone] PET/CT Tumor Base -Thigh Ini ton 09-03-2024 PET/CT Tumor Base -Thigh Init [facility] [address] [place], [place] [id number] PET/CT Tumor Base -Thigh Init MR#: [id number] Acct: [id number] Name: OFE GIMENEZ Rep #: [id number] : 1975 F 49 From: Umberto Phillips PCP: Dr. Yarelis Fitzpatrick, DO Status: REG CLI Study: PET/CT Tumor Base -Thigh Init Date of Exam: Exam# [id number] Ordering Dr: Patience Del Real EXTRUDER- C [id number] EXAMINATION: FDG-PET/CT ? INDICATIONS: 49-year-old female with [...] this report are calculated using the exclusive [employer] Technology. (U.S. Patent No. [phone] patent [phone]). Standardization and correction of the FDG SUV metric via [employer] technology allow for vendor non-specific objective quantitative examination comparison and optimization of the sensitivity and specificity of the FDG PET-CT examination. [email or web address] Electronically Signed: Umberto Jones DO at 21:14 EST , CC: Dr. Yarelis Fitzpatrick, DO; Patience Del Real NP City Controller: Signed Normal [facility] Pulmonary Visit Reporton Pulmonary Visit Report [facility] [place] [address] [place] [address] OFFICE VISIT Date of Service: 08/30/24 MR#: [id number] Acct: [id number] Name: OFE GIMENEZ Rep #: [id number] : 1975 Provider: Patience Del Real NP Age/Sex: 49/F Location: [facility].PM[facility] Status: Signed Assessment and Plan Assessment and [...] chest tigh (more content not included)... Normal [facility] Chest WITH Contraston 2024 Chest WITH Contrast [facility] [address] [place] [address] Chest WITH Contrast MR#: [id number] Acct: [id number] Name: OFE GIMENEZ Rep #: [id number] : 1975 F 49 From: Kalpana flowers MD PCP: Dr. Yarelis Fitzpatrick, DO Status: REG CLI Study: Chest WITH Contrast Date of Exam: 08/28/24 Exam# [id number] Ordering Dr: Kimberly Jacobson EXTRUDER-C [id number] HISTORY: Hilar mass, pleural effusion, cxr 08/27 [...] Signed: Kalpana Jessica MD at 12:18 EST Reading Location ID and State: [facility] / [place] Tel , Service support , CC: DARRYN Jacobson; Dr. Yarelis Fitzpatrick DO City Controller: Signed Normal [facility] Absolute lymphocyte countOrd ered By: Kimberly Jacobson on 08-27-2024 Lymphocytes Auto (Unsp spec) [#/Vol] 2.69 10*3/uL 0.83-4.51 [facility] Absolute neutrophil countOrd ered By: Kimberly Jacobson on 08-27-2024 Neutrophils (Bld) [#/Vol] 17.4 10*3/uL High 2.0-7.7 [facility] Albumin to globulin ratioOrd ered By: Kimberly Jacobson on 08-27-2024 Albumin/Globulin [Mass ratio] 0.8 {ratio} Low 0.9-2.4 [facility] Bilirubin, totalOrdered By: Kimberly Jacobson on 08-27-2024 Bilirubin [Mass/Vol] 0.40 mg/dL 0.20-1.00 [facility] Comment on above: For patients on eltr ombopag therapy, use of Dimension [place] TBIL is not recommended. Blood band neutrophil count as percentage of total leukocytesOrdered By: Kimberly Jacobson on 08-27-2024 Band form neutrophils/100 WBC (Bld) 1 % 0-5 [facility] Blood lymphocytes/100 leukoc ytesOrdered By: Kimberlyzoë Jacobson on 08-27-2024 Lymphocytes/100 WBC (Bld) 13 % Low 19-41 [facility] Blood monocytes/100 leukocyt esOrdered By: Kimberly Jacobson on 08-27-2024 Monocytes/100 WBC (Bld) 3 % 0-10 [facility] Blood segmented neutrophils/ 100 leukocytesOrdered By: Kimberly Jacobson on 08-27-2024 Segmented neutrophils/100 WBC (Bld) 83 % High 47-70 [facility] Blood urea nitrogen (BUN)/cr eatinine ratioOrdered By: Kimberly Jacobson on 08-27-2024 Urea nitrogen/Creatinine [Mass ratio] 16.1 mg/mg 10-20 [facility] C-reactive protein measureme nt by high sensitivity methodOrdered By: Kimberly Jacobson on 08-27-2024 C-Reactive Protein Extended Range 52.60 mg/L High 0.0-3.0 [facility] Comment on above: C-Reactive Protein ( CRP) provides useful information for thediagnosis, therapy and monitoring of inflammatory processesand associated diseases. For the evaluation of Relative Riskfor Cardiovascular Disease, a High Sensitivity CRP (HSCRP)should be ordered. C-reactive protein measurement by high sensitivity method 52.60 mg/L High 0.0-3.0 [facility] Comment on above: C-Reactive Protein ( CRP) provides useful information for thediagnosis, therapy and monitoring of inflammatory processesand associated diseases. For the evaluation of Relative Riskfor Cardiovascular Disease, a High Sensitivity CRP (HSCRP)should be ordered. CBC W/Diff, Automatedon Absolute Lymph 2.69 X10 3/uL Normal 0.83-4.51 [facility] Comment on above: Performed By: #### M 100.2400, #### [facility] [address] [place], [address] Absolute Neut 17.4 X10 3/uL High 2.0-7.7 [facility] Comment on above: Performed By: #### M 100.2400, #### [facility] [address] [place], [place], [address] CRPon 08-27-2024 C-REACTIVE PROT 52.60 mg/L High 0.0-3.0 [facility] Comment on above: Result Comment: C-Re active Protein (CRP) provides useful information for the diagnosis, therapy and monitoring of inflammatory processes and associated diseases. For the evaluation of Relative Risk for Cardiovascular Disease, a High Sensitivity CRP (HSCRP) should be ordered. Performed By: #### M 100.2400, M100.1999 #### [facility] [address] [place], [place], [id number] Carbon dioxide measurementOr dered By: Kimberly Jacobson on 08-27-2024 CO2 [Moles/Vol] 28.0 mmol/L 21.0-32.0 [facility] Cells counted Molgen (Bld/Ti ss) [#]Ordered By: Kimberly Jacobson on 08-27-2024 Differential Total Cells Counted 100 MANUAL DIFF [facility] Chest PA and Lateralon 08-27 Chest PA and Lateral [facility] [address] [place] [address] Chest PA and Lateral MR#: [id number] Acct: [id number] Name: OFE GIMENEZ Rep #: [id number] : 1975 F 49 From: Jose Lyman MD PCP: Dr. Yarelis Fitzpatrick, DO Status: DEP AMB Study: Chest PA and Lateral Date of Exam: 08/27/24 Exam# [id number] Ordering Dr: Kimberly Jacobson EXTRUDER-C [id number] EXAM: XR CHEST, 2 VIEWS CLINICAL INDICATION: [...] CC: DARRYN Jacobson; Dr. Yarelis Fitzpatrick DO City Controller: Signed Normal [facility] Chloride measurementOrdered By: Kimberly Jacobson on 08-27-2024 Chloride [Moles/Vol] 104 mmol/L 98-107 [facility] Comprehensive Metabolic Prof ilon 08-27-2024 Albumin [Mass/Vol] 3.4 g/dL Normal 3.2-5.0 [facility] Comment on above: Performed By: #### M 100.2400, .1999 #### [facility] [address] [place], [address] Albumin/Globulin [Mass ratio] 0.8 {ratio} Low 0.9-2.4 [facility] Comment on above: Performed By: #### M 100.2400, .1999 #### [facility] [address] [place], [address] ALK P 131 U/L High 45-117 [facility] Comment on above: Performed By: #### M 100.2400, #### [facility] [address] [place], [address] ALT [Catalytic activity/Vol] 82 U/L High 13-56 [facility] Comment on above: Performed By: #### M 100.2400, #### [facility] [address] [place], [address] AST [Catalytic activity/Vol] 74 U/L High 15-37 [facility] Comment on above: Performed By: #### M 100.2400, M1 #### [facility] [address] [place], [address] Bilirubin [Mass/Vol] 0.40 mg/dL Normal 0.20-1.00 [facility] Comment on above: Result Comment: For patients on eltrombopag therapy, use of Dimension [place] TBIL is not recommended. Performed By: #### M 100.2400, #### [facility] [address] [place], [address] BUN/CRE 16.1 RATIO Normal 10-20 [facility] Comment on above: Performed By: #### M 100.240, #### [facility] [address] [place], [address] CA,Total 9.1 mg/dL Normal 8.5-10.1 [facility] Comment on above: Performed By: #### M 100.2400, #### [facility] [address] [place], [address] Chloride [Moles/Vol] 104 mmol/L Normal 98-107 [facility] Comment on above: Performed By: #### M 100.2400, #### [facility] [address] [place], [address] CO2 [Moles/Vol] 28.0 mmol/L Normal 21.0-32.0 [facility] Comment on above: Performed By: #### M 100.2400, M1 #### [facility] [address] [place], [address] Creatinine [Mass/Vol] 0.68 mg/dL Normal 0.55-1.02 [facility] Comment on above: Result Comment: The validity of the calculated GFR GFRAA in patients over 70 years has not been determined. Clinical correlation is essential. Performed By: #### M 100.2400, #### [facility] [address] [place], [address] EST GFR - AA 117 mL/min Normal >60 [facility] Comment on above: Result Comment: Afri can Yemeni GFR Calc Performed By: #### M 100.2400, #### [facility] [address] [place], [address] GAP 4 Low 5-15 [facility] Comment on above: Performed By: #### M 100.2400, #### [facility] [address] [place], [address] GFR/1.73 sq M.predicted among non-blacks MDRD (S/P/Bld) [Vol rate/Area] 96 mL/min/{1.73_m2} Normal >60 [facility] Comment on above: Result Comment: Non- GFR Calc Performed By: #### M 100.2400, #### [facility] [address] [place], [address] Globulin (S) [Mass/Vol] 4.0 g/dL Normal 2.2-4.2 [facility] Comment on above: Performed By: #### M 100.2400, #### [facility] [address] [place], [address] Glucose [Mass/Vol] 129 mg/dL High 74-106 [facility] Comment on above: Result Comment: Fast ing Glucose result greater than or equal to 126 mg/dL suggests DIABETES MELLITUS per A.D.A. criteria. Performed By: #### M 100.2400, #### [facility] [address] [place], [address] Potassium [Moles/Vol] 4.1 mmol/L Normal 3.5-5.1 [facility] Comment on above: Performed By: #### M 100.2400, M100.1999 #### [facility] [address] [place], [address] Sodium [Moles/Vol] 136 mmol/L Normal 136-145 [facility] Comment on above: Performed By: #### M 100.2400, M100.1999 #### [facility] [address] [place], [address] T PROT 7.4 g/dL Normal 6.4-8.2 [facility] Comment on above: Performed By: #### M 100.2400, M100.1999 #### [facility] [address] [place], [address] Urea nitrogen [Mass/Vol] 11 mg/dL Normal 7-18 [facility] Comment on above: Performed By: #### M 100.2400, .1999 #### [facility] [address] [place], [address] Erythrocyte Sed Rateon 08-27 SED RATE 4 mm/hr Normal 0-30 [facility] Comment on above: Performed By: #### M 100.2400, M100.1999 #### [facility] [address] [place], [address] Erythrocyte distribution wid th ratioOrdered By: Kimberly Jacobson on 08-27-2024 Erythrocyte distribution width (RBC) [Ratio] 14.0 % 11.6-14.6 [facility] Erythrocyte distribution wid th standard deviationOrdered By: Kimberly Jacobson on 08-27-2024 Erythrocyte distribution width (RBC) [Entitic vol] 42.5 fL 35.1-43.9 [facility] Erythrocyte distribution width (RBC) [Ratio] 42.5 fl 35.1-43.9 [facility] Erythrocyte morphology asses smentOrdered By: Kimberly Jacobson on 08-27-2024 RBC morphology finding Nom (Bld) NORM C+C NORMAL NORM C&C [facility] Erythrocyte sedimentation ra teOrdered By: Kimberly Jacobson on 08-27-2024 ESR (Bld) [Velocity] 4 mm/h 0-30 [facility] Estimated glomerular filtrat ion rate (GFR) AmericanOrdered By: Kimberly Jacobson on 08-27-2024 Estimated GFR (MDRD) Amer 117 mL/min >60 [facility] Comment on above: GFR Calc Glomerular filtration rate ( GFR) estimationOrdered By: Kimberly Jacobson on 08-27-2024 Estimated GFR (MDRD) Non-Af Amer 96 mL/min >60 [facility] Comment on above: Non- GFR Calc GFR/1.73 sq M.predicted among non-blacks MDRD (S/P/Bld) [Vol rate/Area] 96 mL/min/{1.73_m2} >60 [facility] Comment on above: Non- GFR Calc Glucose measurementOrdered B y: Kimberly Jacobson on 08-27-2024 Glucose [Mass/Vol] 129 mg/dL High 74-106 [facility] Comment on above: Fasting Glucose resu lt greater than or equal to 126 mg/dL suggests DIABETES MELLITUS per A.D.A. criteria. Hematocrit Auto (Bld) [Volum e fraction]Ordered By: Kimberly Jacobson on 08-27-2024 Hematocrit (Bld) [Volume fraction] 41.9 % 37-47 [facility] Hemoglobin measurementOrdere d By: Kimberly Jacobson on 08-27-2024 Hemoglobin (Bld) [Mass/Vol] 13.9 g/dL 12.0-15.0 [facility] Laboratory - Chemistry and C hemistry - challengeOrdered By: Kimberly Jacobson on 08-27-2024 AST [Catalytic activity/Vol] 74 U/L High 15-37 [facility] Lymphocytes Auto (Unsp spec) [#/Vol]Ordered By: Kimberly Jacobson on 08-27-2024 Lymphocytes (Bld) [#/Vol] 2.69 10*3/uL 0.83-4.51 [facility] MCV (mean corpuscular volume ) determinationOrdered By: Kimberly Jacobson on 08-27-2024 MCV (RBC) [Entitic vol] 83.3 fL 81-99 [facility] Mean corpuscular hemoglobin (MCH) determinationOrdered By: Kimberly Jacobson on 08-27-2024 MCH (RBC) [Entitic mass] 27.6 pg 27.0-32.0 [facility] Mean corpuscular hemoglobin concentration (MCHC) determinationOrdered By: Kimberly Jacobson on 08-27-2024 MCHC (RBC) [Mass/Vol] 33.2 g/dL 32-36 [facility] Mean platelet volume determi nationOrdered By: Kimberly Jacobson on 08-27-2024 Platelet mean volume (Bld) [Entitic vol] 10.0 fL 6.2-12.0 [facility] Neutrophil percentageOrdered By: Kimberly Jacobson on 08-27-2024 Neutrophils (%) (Auto) Not Reportable [facility] Platelet countOrdered By: Therese Jacobson on 08-27-2024 Platelets (Bld) [#/Vol] 427 10*3/uL 150-450 [facility] Platelet estimateOrdered By: Kimberly Jacobson on 08-27-2024 Platelets LM Ql (Bld) [facility] Platelets LM Ql (Bld)Ordered By: Kimberly Jacobson on 08-27-2024 Platelet Estimate [facility] Potassium measurementOrdered By: Kimberly Jacobson on 08-27-2024 Potassium [Moles/Vol] 4.1 mmol/L 3.5-5.1 [facility] RBC Auto (Bld) [#/Vol]Ordere d By: iKmberly Jacobson on 08-27-2024 RBC (Bld) [#/Vol] 5.03 10*6/uL 4.2-5.4 [facility] RBC morphology finding Nom ( Bld)Ordered By: Kimberly Jacobson on 08-27-2024 Red Blood Cell Morphology NORM C+C NORMAL NORM C&C [facility] Reactive lymphocyte countOrd ered By: Kimberly Jacobson on 08-27-2024 Reactive Lymphocytes 1+ [place] [facility] Segmented neutrophils/100 WB C (Bld)Ordered By: Kimberly Jacobson on 08-27-2024 Neutrophils/100 WBC (Bld) 83 % High 47-70 [facility] Serum anion gap measurementO rdered By: Kimberly Jacobson on 08-27-2024 Anion gap [Moles/Vol] 4 mmol/L Low 5-15 [facility] Serum globulin measurementOr dered By: Kimberly Jacobson on 08-27-2024 Globulin (S) [Mass/Vol] 4.0 g/dL 2.2-4.2 [facility] Serum or plasma alanine ruby otransferase (ALT) measurementOrdered By: Kimberly Jacobson on 08-27-2024 ALT [Catalytic activity/Vol] 82 U/L High 13-56 [facility] Serum or plasma albumin sanford urement (mass/volume)Ordered By: Kimberly Jacobson on 08-27-2024 Albumin [Mass/Vol] 3.4 g/dL 3.2-5.0 [facility] Serum or plasma alkaline neftali sphatase measurementOrdered By: Kimberly Jacobson on 08-27-2024 ALP [Catalytic activity/Vol] 131 U/L High 45-117 [facility] Serum or plasma calcium sanford urement (mass/volume)Ordered By: Kimberly Jacobson on 08-27-2024 Calcium [Mass/Vol] 9.1 mg/dL 8.5-10.1 [facility] Serum or plasma creatinine m easurement (mass/volume)Ordered By: Kmiberly Jacobson on 08-27-2024 Creatinine [Mass/Vol] 0.68 mg/dL 0.55-1.02 [facility] Comment on above: The validity of the calculated GFR & GFRAA in patients over 70 years has not been determined. Clinical correlation is essential. Serum or plasma urea nitroge n measurement (mass/volume)Ordered By: Kimberly Jacobson on 08-27-2024 Urea nitrogen [Mass/Vol] 11 mg/dL 7-18 [facility] Sodium levelOrdered By: Maureen Jacobson on 08-27-2024 Sodium [Moles/Vol] 136 mmol/L 136-145 [facility] Total cell countOrdered By: Kimberly Jacobson on 08-27-2024 Cells counted Molgen (Bld/Tiss) [#] 100 MANUAL DIFF [facility] Total proteinOrdered By: Shar Jacobson on 08-27-2024 Protein [Mass/Vol] 7.4 g/dL 6.4-8.2 [facility] Toxic granules LM Ql (Bld)Or dered By: Kimberly Jacobson on 08-27-2024 Toxic Granulation RARE [facility] Toxic leukocyte granulation detectionOrdered By: Kimberly Jacobson on 08-27-2024 Toxic granules LM Ql (Bld) RARE [facility] White blood cell (WBC) count Ordered By: Kimberly Jacobson on 08-27-2024 WBC (Bld) [#/Vol] 20.7 10*3/uL High 4.4-11.0 [facility] IMMUNOGLOBULIN Dilip Immunoglobulin G 1017 mg/dL Normal 578-1228 [facility] Comment on above: Order Comment: Relea se to patient->Automatic Performed By: #### 2 600 #### OFE Lindsay ([id number]) [facility] ([facility]) [address] Immunoglobulin GOrdered By: Background Lab on 2024 IgG [Mass/Vol] 1017 mg/dL 578 - 1228 mg/dL [facility] Interpretation and review of laboratory results Normal [facility] Progress Noteon 2024 Mail Messenger Contractor Authentication Interface Message Text Ofe is a 49 y.o. female who presents to our office today for a follow up visit. She was last seen on 12/18/23 and before this on 07/07/23 and she was seen initially on 02/09/23 for evaluation secondary to concerns from her PCP Dr. Yarelis Fitzpatrick (see referral in Epic). 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 Meeks (Animal Care Taker in [place]) and she has done this once and [...] was tolerated. -Due to her seeing a Animal Care Taker (Dr. Meeks), I held off on spirometry [...] 07/07/23. She says her spirometry with her Animal Care Taker was normal and she did not have [...] age 23. Special Needs: None Preferred Language: Italian Pets: Yes: 1 dog. School/Daycare: No, she [...] tolerated. Respirator (more content not included)... Normal [facility] Progress Noteon 12-18-2023 Mail Messenger Contractor Authentication Interface Message Text Ofe is a 48 y.o. female who presents to our office today for a follow up visit. She was last seen on 07/07/23 and she was seen initially on 02/09/23 for evaluation secondary to concerns from her PCP Dr. Yarelis Fitzpatrick (see referral in [facility]). 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 Meeks (Animal Care Taker in [place]) and she has done this once and [...] was tolerated. -Due to her seeing a Animal Care Taker (Dr. Meeks), I held off on spirometry at her initial visit and food and environmental allergen testing did not appear to be indicated and this was discussed with her. At her initial visit, I ordered IgG, IgA, IgM and IgE levels, lymphocyte profile, tetanus titer, pneumococcal titers, HIV and Mitogen studies (9081) and on 02/13/23, IgG-242, IgA <5, IgM-23 [...] she has not followed up with her director skills as yet and overall she feels better [...] age 23. Special Needs: None Preferred Language: Italian Pets: Yes: 1 dog. School/Daycare: No, she [...] problems. Hematologic/l (more content not included)... Normal [facility] HIV 1&2 Ag and Ab Screenon 0 02-13-2023 HIV 1&2 Ag and Ab Screen Non-Reactive [facility] Comment on above: Reference value: Non -reactive Non-reactive result does not rule out HIV infection. If exposure to HIV infection occurred <14 days ago, contact the laboratory to request the addition of HIV-1 RNA detection/quantification test to [facility] (HIVQN). Release to patient->Automatic Reason for preventing automatic release->Other Release to patient->Manual release only [facility] Immunoglobulin A,G,M,Marino Immunoglobulin A <5 Low 59 - 337 mg/dL [facility] Immunoglobulin E <1 [facility] Immunoglobulin G 242 mg/dL Low 578 - 1228 mg/dL [facility] Immunoglobulin M 23 mg/dL 23 - 166 mg/dL [facility] Interpretation and review of laboratory results Abnormal [facility] Release to patient->Automatic Reason for preventing automatic release->Other Release to patient->Manual release only [facility] Microbial respiratory cultur eOrdered By: Dr. Meeks on 01-26-2023 Bacteria identified Respiratory culture Nom (Unsp spec) or Staphylococcus aureus isolated. [facility] Gram stain for investigation of transfusion reactionOrdered By: Dr. Meeks on 01-24-2023 Microscopic observation Gram stain Nom (Unsp spec) [facility] CBC W/AUTO DIFF WBC (42571)O rdered By: Produce Inspector on 12-16-2022 Basophils (Bld) [#/Vol] 0.1 10*3/uL Normal 0.0-0.2 [facility] Work Phone: Comment on above: PATIENT WAS FASTINGP ERFORMED BY: ANGELINE [facility] Fgucjn9444 [facility] [id number] BY: [address] [id number] Basophils/100 WBC (Bld) 0 % Normal [facility]; [facility] Work Phone: Comment on above: PATIENT WAS FASTINGP ERFORMED BY: ANGELINE [facility] Sokxep3076 [facility] [id number] BY: [address] [id number] Eosinophils (Bld) [#/Vol] 0.1 10*3/uL Normal 0.0-0.4 [facility]; [facility] Work Phone: Comment on above: PATIENT WAS FASTINGP ERFORMED BY: ANGELINE [facility] Lgcvbn5265 [facility] [id number] BY: [address] [id number] Eosinophils/100 WBC (Bld) 1 % Normal [facility]; [facility] Work Phone: Comment on above: PATIENT WAS FASTINGP ERFORMED BY: ANGELINE Labcokaleigh SantiagoNtugst8992 [facility] [id number] BY: [address] [id number] Erythrocyte distribution width (RBC) [Ratio] 14.2 % Normal 11.7-15.4 [facility]; [facility] Work Phone: Comment on above: PATIENT WAS FASTINGP ERFORMED BY: ANGELINE [facility] Zeuhtb4008 [facility] [id number] BY: [address] [id number] Hematocrit (Bld) [Volume fraction] 42.6 % Normal 34.0-46.6 [facility]; [facility] Work Phone: Comment on above: PATIENT WAS FASTINGP ERFORMED BY: ANGELINE [facility] Aqwkdz3680 [facility] [id number] BY: [address] [id number] Hemoglobin (Bld) [Mass/Vol] 14.3 g/dL Normal 11.1-15.9 [facility]; [facility] Work Phone: Comment on above: PATIENT WAS FASTINGP ERFORMED BY: [facility] Ivqmse7016 [facility] [id number] BY: [address] [id number] Immature granulocytes (Bld) [#/Vol] 0.0 10*3/uL Normal 0.0-0.1 [facility]; [facility] Work Phone: Comment on above: PATIENT WAS FASTINGP ERFORMED BY: [facility] Ptrybf9731 [facility] [id number] BY: [address] [id number] Immature granulocytes/100 WBC (Bld) 0 % Normal [facility]; [facility] Work Phone: Comment on above: PATIENT WAS FASTINGP ERFORMED BY: [facility] Zgdzkj1150 [facility] [id number] BY: [address] [id number] Lymphocytes (Bld) [#/Vol] 2.9 10*3/uL Normal 0.7-3.1 [facility]; [facility] Work Phone: Comment on above: PATIENT WAS FASTINGP ERFORMED BY: [facility] Yeyslo7342 [facility] [id number] BY: [address] [id number] Lymphocytes/100 WBC (Bld) 18 % Normal [facility]; [facility] Work Phone: Comment on above: PATIENT WAS FASTINGP ERFORMED BY: [facility] Kkmenv3336 [facility] [id number] BY: [facility] [id number] MCH (RBC) [Entitic mass] 27.1 pg Normal 26.6-33.0 [facility]; [facility] Work Phone: Comment on above: PATIENT WAS FASTINGP ERFORMED BY: ANGELINE [facility] Zuiuod6194 [facility] [id number] BY: [facility] [id number] MCHC (RBC) [Mass/Vol] 33.6 g/dL Normal 31.5-35.7 [facility] prehensive Internal Medicine; [facility] Work Phone: Comment on above: PATIENT WAS FASTINGP ERFORMED BY: ANGELINE [facility] Wshkhj6620 [facility] [id number] BY: [facility]villeEchoFirst[address] [id number] MCV (RBC) [Entitic vol] 81 fL Normal 79-97 [facility]; [facility] Work Phone: Comment on above: PATIENT WAS FASTINGP ERFORMED BY: ANGELINE [facility] Rpxohm0399 [facility] [id number] BY: [address] [id number] Monocytes (Bld) [#/Vol] 0.9 10*3/uL Normal 0.1-0.9 [facility]; [facility] Work Phone: Comment on above: PATIENT WAS FASTINGP ERFORMED BY: ANGELINE [facility] Ubiznm0241 [facility] [id number] BY: [address] [id number] Monocytes/100 WBC (Bld) 6 % Normal [facility]; [facility] Work Phone: Comment on above: PATIENT WAS FASTINGP ERFORMED BY: ANGELINE [facility] Hgtzqt9678 [facility] [id number] BY: BN [facility] [id number] Neutrophils (Bld) [#/Vol] 11.8 10*3/uL Abnormal 1.4-7.0 [facility]; [facility] Work Phone: Comment on above: PATIENT WAS FASTINGP ERFORMED BY: ANGELINE [facility] Zbnilr6419 Angel RoadDublin [place] [id number] BY: [facility] [address] [id number] Neutrophils/100 WBC (Bld) 75 % Normal [facility]; [facility] Work Phone: Comment on above: PATIENT WAS FASTINGP ERFORMED BY: ANGELINE [facility] Ozlesg7288 [address] RoadDuAtrium Health [facility] [id number] BY: [facility] [id number] Platelets (Bld) [#/Vol] 522 10*3/uL Abnormal 150-450 [facility]; [facility] Work Phone: Comment on above: PATIENT WAS FASTINGP ERFORMED BY: ANGELINE [facility] Qnqelb4490 [facility] [id number] BY: [facility] [id number] RBC (Bld) [#/Vol] 5.28 10*6/uL Normal 3.77-5.28 Compr ensive [facility]; [facility] Work Phone: Comment on above: PATIENT WAS FASTINGP ERFORMED BY: ANGELINE [facility] Mzthge0378 Angel RoadDublin [place] [id number] BY: Lab[address] [id number] WBC (Bld) [#/Vol] 15.8 10*3/uL Abnormal 3.4-10.8 Compr ehensive [facility]; [facility] Work Phone: Comment on above: PATIENT WAS FASTINGP ERFORMED BY: CB [facility] Euerqz0618 Angel RoadDublin [place] [id number] BY: iCrumz[address] [id number] Ferritin (09069)Ordered By: Produce Inspector on 12-16-2022 Ferritin [Mass/Vol] 98 ng/mL Normal 15-150 Compr ehens[facility]; [facility] Work Phone: Comment on above: PATIENT WAS FASTINGP ERFORMED BY: [employer] Uikhmx8542 [facility] [id number] BY: iCrumz[address] [id number] Immunoglobulins, Quantitativ e, IgA,IgE, IgG, IgM (16047)Ordered By: Produce Inspector on 12-16-2022 IgA [Mass/Vol] mg/dL Abnormal 87-352 Comprehens titus [facility]; [facility] Work Phone: Comment on above: Result confirmed on concentration. PATIENT WAS FASTINGP ERFORMED BY: Dog[employer]oin Jghkod8648 [facility] [id number] BY: iCrumz[address] [id number] IgE Qn [IU]/L Abnormal 6-495 [facility]; [facility] Work Phone: Comment on above: PATIENT WAS FASTINGP ERFORMED BY: Score The Board70 [facility] [id number] BY: iCrumz[address] [id number] IgG [Mass/Vol] 307 mg/dL Abnormal 586-1602 Comprehens titus [facility]; [facility] Work Phone: Comment on above: PATIENT WAS FASTINGP ERFORMED BY: Kitchonlin6370 [facility] [id number] BY: MyCoop[address] [id number] IgM [Mass/Vol] 30 mg/dL Normal 26-217 Comprehens titus [facility]; [facility] Work Phone: Comment on above: PATIENT WAS FASTINGP ERFORMED BY: CB [facility] Qsihzi7162 [address] RoadDublin [place] [id number] BY: [address] [id number] Iron Binding Capacity (TIBC) (71178)Ordered By: Produce Inspector on 12-16-2022 Iron [Mass/Vol] 19 ug/dL Abnormal 27-159 [facility]; [facility] Work Phone: Comment on above: PATIENT WAS FASTINGP ERFORMED BY: CB [facility] Lxiwmi4005 [address] RoadDublin [place] [id number] BY: [address] [id number] Iron binding capacity [Mass/Vol] 263 ug/dL Normal 250-450 [facility]; [facility] Work Phone: Comment on above: PATIENT WAS FASTINGP ERFORMED BY: CB [facility] Lvwsqm7214 [address] RoadDublin [place] [id number] BY: Lab[address] [id number] Iron binding capacity.unsaturated [Mass/Vol] 244 ug/dL Normal 131-425 [facility]; [facility] Work Phone: Comment on above: PATIENT WAS FASTINGP ERFORMED BY: CB [facility] Qbunqw2413 [facility] RoadCone Health [id number] BY: [address] [id number] Iron saturation [Mass fraction] 7 % Abnormal 15-55 [facility]; [facility] Work Phone: Comment on above: PATIENT WAS FASTINGP ERFORMED BY: CB [facility] Ydhttf0966 [facility]bl[facility] [place] [id number] BY: Lab[address] [id number] LDH (LD) (LACTATE DEHYDROGEN ASE) (06984)Ordered By: Produce Inspector on 12-16-2022 LDH [Catalytic activity/Vol] 175 U/L Normal 119-226 [facility]; [facility] Work Phone: Comment on above: PATIENT WAS FASTINGP ERFORMED BY: CB [facility] Mjiwql5674 [facility] [id number] BY: [facility] [address] [id number] METABOLIC PANEL, COMPREHENSI VE (33061)Ordered By: Produce Inspector on 12-16-2022 Albumin [Mass/Vol] 4.7 g/dL Normal 3.8-4.8 [facility]; [facility] Work Phone: Comment on above: PATIENT WAS FASTINGP ERFORMED BY: CB [facility] Bvrxhd3185 [facility] [id number] BY: Lab[address] [id number] Albumin/Globulin [Mass ratio] 2.9 {ratio} Abnormal 1.2-2.2 [facility]; [facility] Work Phone: Comment on above: PATIENT WAS FASTINGP ERFORMED BY: CB [facility] Anltjp8101 [facility] [id number] BY: [facility] [id number] ALP [Catalytic activity/Vol] 116 U/L Normal 44-121 [facility]; [facility] Work Phone: Comment on above: PATIENT WAS FASTINGP ERFORMED BY: CB [facility] Acrjjf6589 [facility] [id number] BY: [facility] [address] [id number] ALT [Catalytic activity/Vol] 17 U/L Normal 0-32 [facility]; [facility] Work Phone: Comment on above: PATIENT WAS FASTINGP ERFORMED BY: CB [facility] Lqyyos2015 [facility] [id number] BY: [facility] [address] [id number] AST [Catalytic activity/Vol] 19 U/L Normal 0-40 [facility]; [facility] Work Phone: Comment on above: PATIENT WAS FASTINGP ERFORMED BY: ANGELINE [facility] Kzocib4689 [facility] [place] [id number] BY: Lab[address] [id number] Bilirubin [Mass/Vol] 0.5 mg/dL Normal 0.0-1.2 Comp rehensive [facility]; [facility] Work Phone: Comment on above: PATIENT WAS FASTINGP ERFORMED BY: ANGELINE [facility] Rpeikc3379 [facility] [id number] BY: Lab[address] [id number] Calcium [Mass/Vol] 9.5 mg/dL Normal 8.7-10.2 [facility]; [facility] Work Phone: Comment on above: PATIENT WAS FASTINGP ERFORMED BY: [facility] Qmaely8256 [facility] [id number] BY: Lab[address] [id number] Chloride [Moles/Vol] 102 mmol/L Normal 96-106 [facility]; [facility] Work Phone: Comment on above: PATIENT WAS FASTINGP ERFORMED BY: [facility] Mfhlsz7554 [facility] [id number] BY: Lab[address] [id number] CO2 [Moles/Vol] 23 mmol/L Normal 20-29 [facility]; [facility] Work Phone: Comment on above: PATIENT WAS FASTINGP ERFORMED BY: CB [facility] Tdqvif8468 [facility] [id number] BY: [facility] [id number] Creatinine [Mass/Vol] 0.71 mg/dL Normal 0.57-1.00 Com prehensive [facility]; [facility] Work Phone: Comment on above: PATIENT WAS FASTINGP ERFORMED BY: ANGELINE [facility] Xbfoqk3914 [facility] [id number] BY: iCrumz[address] [id number] GFR/1.73 sq M.predicted among non-blacks MDRD (S/P/Bld) [Vol rate/Area] 104 mL/min/{1.73_m2} Normal Comprehensi [facility]; [facility] Work Phone: Comment on above: PATIENT WAS FASTINGP ERFORMED BY: ANGELINE [facility] Hbcmjr9417 [facility] [id number] BY: iCrumz[address] [id number] Globulin (S) [Mass/Vol] 1.6 g/dL Normal 1.5-4.5 [facility]; [facility] Work Phone: Comment on above: PATIENT WAS FASTINGP ERFORMED BY: CB [facility] Cfydox8972 [facility] [id number] BY: iCrumz[address] [id number] Glucose [Mass/Vol] 89 mg/dL Normal 70-99 [facility]; [facility] Work Phone: Comment on above: PATIENT WAS FASTINGP ERFORMED BY: CB [facility] Gsmfdg4148 [facility] [id number] BY: LabEchoFirst[address] [id number] Potassium [Moles/Vol] 4.5 mmol/L Normal 3.5-5.2 [facility]; [facility] Work Phone: Comment on above: PATIENT WAS FASTINGP ERFORMED BY: CB [facility] Abnbbs7329 [facility] [id number] BY: [facility] [id number] Protein [Mass/Vol] 6.3 g/dL Normal 6.0-8.5 [facility]; [facility] Work Phone: Comment on above: PATIENT WAS FASTINGP ERFORMED BY: CB [facility] Qrpyvg8214 [address] RoadDublin [place] [id number] BY: [facility] [id number] Sodium [Moles/Vol] 142 mmol/L Normal 134-144 [facility]; [facility] Work Phone: Comment on above: PATIENT WAS FASTINGP ERFORMED BY: CB [facility] Lbzjdt8774 [address] RoadDuin [place] [id number] BY: [facility] [id number] Urea nitrogen [Mass/Vol] 9 mg/dL Normal 6-24 [facility]; [facility] Work Phone: Comment on above: PATIENT WAS FASTINGP ERFORMED BY: CB [facility] Xwmnpj9138 [address] RoadDublin [place] [id number] BY: [facility] [id number] Urea nitrogen/Creatinine [Mass ratio] 13 mg/mg Normal 9-23 [facility]; [facility] Work Phone: Comment on above: PATIENT WAS FASTINGP ERFORMED BY: CB [facility] Mnkfxq7601 [facility] [id number] BY: [facility] [id number] RETICULOCYTE COUNT ([id number])Or dered By: Produce Inspector on 12-16-2022 Reticulocytes/100 RBC (Bld) 0.7 % Normal 0.6-2.6 [facility]; [facility] Work Phone: Comment on above: PATIENT WAS FASTINGP ERFORMED BY: CB [facility] Qsncxx9660 [address] RoadDublin [place] [id number] BY: Lab[address] [id number] SPEP ([id number])Ordered By: Syst em Senior Director Finance on 12-16-2022 Albumin [Mass/Vol] 4.1 g/dL Normal 2.9-4.4 [facility]; [facility] Work Phone: Comment on above: PATIENT WAS FASTINGP ERFORMED BY: [facility] Emvnde1037 [facility] [id number] BY: Lab[address] [id number] Albumin/Globulin [Mass ratio] 1.9 {ratio} Abnormal 0.7-1.7 [facility]; [facility] Work Phone: Comment on above: PATIENT WAS FASTINGP ERFORMED BY: [facility] Cbdayz9149 [facility] [id number] BY: iCrumz[address] [id number] Alpha 1 globulin Elph [Mass/Vol] 0.3 g/dL Normal 0.0-0.4 [facility]; [facility] Work Phone: Comment on above: PATIENT WAS FASTINGP ERFORMED BY: [facility] Yfkwgq8937 [facility] [id number] BY: LabEchoFirst[address] [id number] Alpha 2 globulin Elph [Mass/Vol] 0.8 g/dL Normal 0.4-1.0 [facility]; [facility] Work Phone: Comment on above: PATIENT WAS FASTINGP ERFORMED BY: [facility] Xefeyu9803 [facility] [id number] BY: [address] [address] [id number] Beta globulin Elph [Mass/Vol] 0.8 g/dL Normal 0.7-1.3 [facility] Work Phone: Comment on above: PATIENT WAS FASTINGP ERFORMED BY: [facility] Sriheq4644 [facility] [id number] BY: [address] [id number] Gamma globulin Elph [Mass/Vol] 0.3 g/dL Abnormal 0.4-1.8 [facility] Work Phone: Comment on above: PATIENT WAS FASTINGP ERFORMED BY: [facility] Nnslvg0252 [facility] [id number] BY: [address] [id number] Globulin (S) [Mass/Vol] 2.2 g/dL Normal 2.2-3.9 [facility]; [facility] Work Phone: Comment on above: PATIENT WAS FASTINGP ERFORMED BY: [facility] Erqfxg8531 [facility] [id number] BY: [address] [id number] Laboratory comment Dragan (Report) SPRCS Normal [facility]; [facility] Work Phone: Comment on above: Protein electrophore sis scan will follow via computer, mail, orcourier delivery. PATIENT WAS FASTINGP ERFORMED BY: [facility] Rvnteq4423 [facility] [id number] BY: [address] [id number] Laboratory report . Normal Compreh [facility]; [facility] Work Phone: Comment on above: PATIENT WAS FASTINGP ERFORMED BY: [facility] [id number] [facility] [id number] BY: [address] [id number] Protein.monoclonal Elph [Mass/Vol] Not Observed Normal [facility]; [facility] Work Phone: Comment on above: PATIENT WAS FASTINGP ERFORMED BY: [facility] Dxtibo0476 [facility] [id number] BY: [address] [id number] UPEP ([id number])Ordered By: Syst em Senior Director Finance on 12-16-2022 Albumin Elph (U) [Mass fraction] 14.5 % Normal [facility]; [facility] Work Phone: Comment on above: PATIENT WAS FASTINGP ERFORMED BY: ANGELINE [facility] [id number] [facility] [id number] BY: [address] [id number] Alpha 1 globulin Elph (U) [Mass fraction] 13.0 % Normal Com[facility]; [facility] Work Phone: Comment on above: PATIENT WAS FASTINGP ERFORMED BY: ANGELINE [facility] Nkyscc9354 [facility] [id number] BY: [address] [id number] Alpha 2 globulin Elph (U) [Mass fraction] 21.8 % Normal [facility]; [facility] Work Phone: Comment on above: PATIENT WAS FASTINGP ERFORMED BY: ANGELINE [facility] Pjydsb3495 [facility] [id number] BY: [address] [id number] Beta globulin Elph (U) [Mass fraction] 32.9 % Normal [facility]; [facility] Work Phone: Comment on above: PATIENT WAS FASTINGP ERFORMED BY: [facility] Xuiehh4455 [facility] [id number] BY: [address] [id number] Gamma globulin Elph (U) [Mass fraction] 17.8 % Normal [facility]; [facility] Work Phone: Comment on above: PATIENT WAS FASTINGP ERFORMED BY: [facility] Dvhmql1649 [facility] [id number] BY: [address]Co[address] [id number] Protein (U) [Mass/Vol] mg/dL Normal [facility]; [facility] Work Phone: Comment on above: Verified by repeat analysis PATIENT WAS FASTINGP ERFORMED BY: [place] [id number] [facility] [id number] BY: [address] [id number] Protein.monoclonal Elph (U) [Mass fraction] Not Observed Normal [facility]; [facility] Work Phone: Comment on above: PATIENT WAS FASTINGP ERFORMED BY: [facility]zSh[facility] Memorial HospitalFdevzm2331 [facility] [id number] BY: i[address] [id number] Vitamin B-12 (cyanocobalamin ) ([id number])Ordered By: Produce Inspector on 12-16-2022 Cobalamin (Vitamin B12) [Mass/Vol] 339 pg/mL Normal 232-1245 [facility]; [facility] Work Phone: Comment on above: PATIENT WAS FASTINGP ERFORMED BY: [facility]CrumzSh[facility] Memorial HospitalJrstig3782 [facility] [id number] BY: [address] [id number] Absolute lymphocyte countOrd ered By: ED PROVIDER on 11-06-2022 Lymphocytes Auto (Unsp spec) [#/Vol] 3.22 10*3/uL 0.83-4.51 [facility] Amorphous sediment detection in urine sediment by light microscopyOrdered By: ED PROVIDER on 11-06-2022 Amorphous sediment LM Ql (Urine sed) 1+ URATE [facility] Basophil percentageOrdered B y: ED PROVIDER on 11-06-2022 Basophil percentage 0 SEEN /hpf 0-5 [facility] Basophils/100 WBC (Bld) 0.5 % 0-1 [facility] Chloride [Moles/Vol] 107 mmol/L 98-107 [facility] Eosinophils/100 WBC (Bld) 0.0 % 0-5 [facility] Glucose [Mass/Vol] 177 mg/dL 74-106 [facility] Comment on above: Fasting Glucose resu lt greater than or equal to 126 mg/dL suggests DIABETES MELLITUS per A.D.A. criteria. Neutrophils (Bld) [#/Vol] 8.5 10*3/uL 2.0-7.7 [facility] Neutrophils/100 WBC (Bld) 66.8 % 47-70 [facility] Potassium [Moles/Vol] 3.6 mmol/L 3.5-5.1 [facility] Sodium [Moles/Vol] 142 mmol/L 136-145 [facility] WBC (Bld) [#/Vol] 12.7 10*3/uL 4.4-11.0 [facility] Beta hCG serum qualOrdered B y: ED PROVIDER on 11-06-2022 Beta HCG ( test) Ql Negative [facility] Bilirubin Test strip Ql (U)O rdered By: ED PROVIDER on 11-06-2022 Bilirubin Ql (U) Negative Negative [facility] Blood erythrocytes count (nu mber/volume)Ordered By: ED PROVIDER on 11-06-2022 RBC (Bld) [#/Vol] 5.24 10*6/uL 4.2-5.4 [facility] Blood hemoglobin measurement (mass/volume)Ordered By: ED PROVIDER on 11-06-2022 Hemoglobin (Bld) [Mass/Vol] 13.9 g/dL 12.0-15.0 [facility] Blood lymphocytes/100 leukoc ytesOrdered By: ED PROVIDER on 11-06-2022 Lymphocytes/100 WBC (Bld) 25.4 % 19-41 [facility] Blood monocytes/100 leukocyt esOrdered By: ED PROVIDER on 11-06-2022 Monocytes/100 WBC (Bld) 6.8 % 0-10 [facility] Blood platelet mean volumeOr dered By: ED PROVIDER on 11-06-2022 Platelet mean volume (Bld) [Entitic vol] 9.2 fL 6.2-12.0 [facility] Determination of erythrocyte mean corpuscular volume (MCV)Ordered By: ED PROVIDER on 11-06-2022 MCV (RBC) [Entitic vol] 83.4 fL 81-99 [facility] Hematocrit Auto (Bld) [Volum e fraction]Ordered By: ED PROVIDER on 11-06-2022 Hematocrit (Bld) [Volume fraction] 43.7 % 37-47 [facility] Ketones Test strip Ql (U)Ord ered By: ED PROVIDER on 11-06-2022 Ketones Ql (U) Negative Negative [facility] Laboratory - Chemistry and C hemistry - challengeOrdered By: ED PROVIDER on 11-06-2022 CO2 [Moles/Vol] 27.0 mmol/L 21.0-32.0 [facility] Urea nitrogen/Creatinine [Mass ratio] 14.5 mg/mg 10-20 [facility] Laboratory - Hematology and Cell countsOrdered By: ED PROVIDER on 11-06-2022 Erythrocyte distribution width (RBC) [Entitic vol] 44.0 fL 35.1-43.9 [facility] Erythrocyte distribution width (RBC) [Ratio] 14.6 % 11.6-14.6 [facility] Immature granulocytes/100 WBC (Bld) 0.500 % 0.0-0.9 [facility] Comment on above: IG% - Immature Granu locytes (promyelocytes, myelocytes and metamyelocytes) > 1% indicates that a LEFT SHIFT is Present. MCH (RBC) [Entitic mass] 26.5 pg 27.0-32.0 [facility] Nucleated RBC/100 WBC (Bld) [Ratio] 0 % 0-5 [facility] MCHC Auto (RBC) [Mass/Vol]Or dered By: ED PROVIDER on 11-06-2022 MCHC (RBC) [Mass/Vol] 31.8 g/dL 32-36 [facility] Mucus LM Ql (Urine sed)Order ed By: ED PROVIDER on 11-06-2022 Mucus Ql (Urine sed) 0 SEEN /hpf [facility] Nitrite Test strip Ql (U)Ord ered By: ED PROVIDER on 11-06-2022 Nitrite Ql (U) Negative Negative [facility] No Panel InformationOrdered By: ED PROVIDER on 11-06-2022 Estimated Creatinine Clearance Calc 83.82 ml/min [facility] Estimated GFR (MDRD) Amer 104 mL/min >60 [facility] Comment on above: GFR Calc Estimated GFR (MDRD) Non-Af Amer 86 mL/min >60 [facility] Comment on above: Non- GFR Calc Platelets bldOrdered By: ED PROVIDER on 11-06-2022 Platelets (Bld) [#/Vol] 502 10*3/uL 150-450 [facility] Protein Test strip Ql (U)Ord ered By: ED PROVIDER on 11-06-2022 Protein Ql (U) 30 mg/dl Negative [facility] Serum or plasma calcium sanford urement (mass/volume)Ordered By: ED PROVIDER on 11-06-2022 Calcium [Mass/Vol] 9.6 mg/dL 8.5-10.1 [facility] Serum or plasma creatinine m easurement (mass/volume)Ordered By: ED PROVIDER on 11-06-2022 Creatinine [Mass/Vol] 0.76 mg/dL 0.55-1.02 [facility] Comment on above: The validity of the calculated GFR & GFRAA in patients over 70 years has not been determined. Clinical correlation is essential. Serum or plasma urea nitroge n measurement (mass/volume)Ordered By: ED PROVIDER on 11-06-2022 Urea nitrogen [Mass/Vol] 11 mg/dL 7-18 [facility] Squamous epithelial cells de tection in urine sediment by light microscopyOrdered By: ED PROVIDER on 11-06-2022 Epithelial cells.squamous LM Ql (Urine sed) 0-5 SEEN /hpf 5-10 [facility] Thin prep Papanicolaou smear with manual screeningOrdered By: ED PROVIDER on 11-06-2022 Thin prep Papanicolaou smear with manual screening 8 5-15 [facility] Urine blood detectionOrdered By: ED PROVIDER on 11-06-2022 RBC Ql (U) 10 /ul Negative [facility] RBC Ql (U) 0-5 SEEN /hpf 0-5 [facility] Urine clarityOrdered By: ED PROVIDER on 11-06-2022 Clarity (U) Sl. Cloudy Clear [facility] Urine color determinationOrd ered By: ED PROVIDER on 11-06-2022 Color (U) Yellow Yellow [facility] Urine glucose detectionOrder ed By: ED PROVIDER on 11-06-2022 Glucose Ql (U) 50 mg/dl Normal [facility] Urine leukocyte esterase det ection by dipstickOrdered By: ED PROVIDER on 11-06-2022 Leukocyte esterase Test strip Ql (U) Negative Negative [facility] Urine pHOrdered By: ED PROVI NORMAN on 11-06-2022 pH (U) 6.5 [pH] 5.0 - 8.0 [facility] Urine sediment bacteria coun t by microscopy (number/high power field)Ordered By: ED PROVIDER on 11-06-2022 Bacteria LM.HPF (Urine sed) [#/Area] 0 /[HPF] None Seen [facility] Urine specific gravity measu rementOrdered By: ED PROVIDER on 11-06-2022 Specific gravity (U) [Rel density] 1.020 1.002-1.030 [facility] Urobilinogen Auto test strip Ql (U)Ordered By: ED PROVIDER on 11-06-2022 Urobilinogen Ql (U) 1 mg/dl Normal [facility] INHOUSE Rapid Covid/ Flu A/ Flu BOrdered By: Yaa Calderon on 02-22-2022 SARS-CoV-2 (COVID-19) RNA MICHELLE+probe Ql (Unsp spec) Negative Normal [facility]; [facility] Work Phone: Britni 01-23-2022 CNOV Office Visit (UCWSTR ) -------- OFE GIMENEZ ([id number]) 1975 F Date Time Provider Department 01/23/22 8:45 AM ABRAHAN PETERSON [facility] During your visit today, we recorded the [...] Date Reviewed: 01/23/2022 Reviewed by: Abrahan Peterson APRN.ENGRAVER MACHINE - Fully Assessed Reason for Visit: Cough [...] trimethoprim-polymyxin (NEREIDA (more content not included)... Normal [facility] CNOVon 08-28-2021 CNOV Office Visit (UCWSTR ) -------- OFE GIMENEZ ([id number]) 1975 F Date Time Provider Department 08/28/21 8:30 AM MELVA REYNA [facility] During your visit today, we recorded the following information about you: Temperature Pulse Respiration Blood pressure 98.3 degrees 86/minute 18/minute 142/82 Weight 66.5 kg Melva Reyna APRN.ENGRAVER MACHINE 08/28/2021 9:11 AM Addendum Albuterol nebulizer every [...] severe or concerning to you. Melva Reyna, CASINO DEALER.ENGRAVER MACHINE 08/28/2021 9:16 AM Signed Subjective HPI HPI [...] of smell (more content not included)... Normal [facility] COVID w FLU A+B Routon 08-28 Influenza A PCR Negative Normal [facility] Comment on above: Performed By: #### C OVFLU #### [place] [address] Influenza B PCR Negative Normal [facility] Comment on above: Performed By: #### C OVFLU #### [place] [id number] [place] [address] SARS-CoV-2 (COVID-19) RNA MICHELLE+probe Ql (Unsp spec) UPPER RESPIRATORY TRACT SWAB Normal [facility] Comment on above: Performed By: #### C OVFLU #### [place] [id number] [place] [address] SARS-CoV-2 (COVID-19) RNA MICHELLE+probe Ql (Unsp spec) Positive for COVID19 (SARS CoV2) by RT-PCR or equivalent method. Critically abnormal Negative for COVID19 (SARS CoV2) by RT-PCR or equivalent method. [facility] Comment on above: Result Comment: This test was developed and its performance characteristics determined by [facility]'s [facility] [place]. This test has been authorized by FDA under an Emergency Use Authorization (EUA). This test has been validated in accordance with the FDA's Guidance Document Policy for Diagnostics Testing in Laboratories Certified to Perform High Complexity Testing under CLIA prior to Emergency use Authorization for Coronavirus Disease 2019 during the Public Health Emergency issued on October 19, 2019. Test performed by [facility], [facility] [place], [address] [address]. Performed By: #### C OVFLU #### [place] [address] CNOVon 08-11-2021 CNOV Office Visit (UCWSTR ) -------- OFE GIMENEZ ([id number]) 1975 F Date Time Provider Department 08/11/21 6:00 PM LEN MARINELLI [facility] During your visit today, we recorded the [...] Marinelli APRN.CNP 08/11/2021 6:50 PM Signed [facility] [address] [place], [place] [address] Emergency Department Diagnosis: Assessment COUGH: Your doctor [...] have increased (more content not included)... Normal [facility] Raji 08-11-2021 PEPE Telephone (UCWSTR) -------- OFE GIMENEZ ([id number]) 1975 F Date Time Provider Department 08/11/21 ORA LECHUGA WSTR During your visit today, we recorded [...] Status:Closed by ANDIE AKHTAR on 08/12/21 Normal [facility] COVID w FLU A+B Routon 08-11 Influenza A PCR Positive Critically abnormal [facility] Comment on above: Performed By: #### C OVFLU #### [facility] [address] [place], [place] [address] Influenza B PCR Negative Normal [facility] Comment on above: Performed By: #### C OVFLU #### [place] [address] SARS-CoV-2 (COVID-19) RNA MICHELLE+probe Ql (Unsp spec) UPPER RESPIRATORY TRACT SWAB Normal [facility] Comment on above: Performed By: #### C OVFLU #### [place] [address] SARS-CoV-2 (COVID-19) RNA MICHELLE+probe Ql (Unsp spec) Negative for COVID19 (SARS CoV2) by RT-PCR or equivalent method. Normal Negative for COVID19 (SARS CoV2) by RT-PCR or equivalent method. [facility] Comment on above: Result Comment: This test was developed and its performance characteristics determined by [facility] [place]. This test has been authorized by FDA under an Emergency Use Authorization (EUA). This test has been validated in accordance with the FDA's Guidance Document Policy for Diagnostics Testing in Laboratories Certified to Perform High Complexity Testing under CLIA prior to Emergency use Authorization for Coronavirus Disease 2019 during the Public Health Emergency issued on October 19, 2019. Test performed by [facility], [facility] [place], [address] [place], [place] [address]. Performed By: #### C OVFLU #### [place] [address] XR CHEST 2V FRONTAL/LATon XR CHEST 2V [...] apices, right upper lobe more than left. City Controller: [employer] Transcribe Date/Time: Aug 11 2021 7:07P Dictated by : NESTOR CRONIN MD This examination was interpreted and the report reviewed and electronically signed by: NESTOR CRONIN MD on Aug 11 2021 7:10PM EST [id number] Normal [facility] XR Chest PA and Lateralon IMPRESSION: 1. No acute radiographic abnormalities. 2. Hyperaeration consistent with COPD. 3. 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 City Controller: [employer] Transcribe Date/Time: Aug 11 2021 7:07P Dictated by : NESTOR CRONIN MD This examination was interpreted and the report reviewed and electronically signed by: NESTOR CRONIN MD on Aug 11 2021 7:10PM [facility] DIVISION OF RADIOLOGY * * *Final [...] soft tissues: Unremarkable. DIVISION OF RADIOLOGY Provider, [facility] [place] - 08/11/2021 * * *Final Report* * [...] apices, right upper lobe more than left. City Controller: [employer] Transcribe Date/Time: Aug 11 2021 7:07P Dictated by : NESTOR CRONIN MD This examination was interpreted and the report reviewed and electronically signed by: NESTOR CRONIN MD on Aug 11 2021 7:10PM EST [facility] Radiology Study observation (narrative) [facility] XR Chest PA and LateralOrder ed By: [facility] Provider on 08-11-[address] [facility] CNOVon 05-14-2021 CNOV Office Visit (UCWSTR ) -------- OFE GIMENEZ ([id number]) 1975 F Date Time Provider Department 05/14/21 [...] have confirmed and edited as necessary, the [facility] Review of Systems Constitutional: Positive for fever [...] testing ordered; Results will be released to [facility] in 24-48 hours Discussed quarantine, social distancing, hand washing/proper hygiene. Rest, fluids, OTC medications discussed -Reviewed red flags (ie chest pain, shortness of breath) with patient and when to seek care sooner. NELLA Hammond PA-C 05/14/2021 6:45 PM Signed How to Manage Common Symptoms Associated with COVID for Adults Fever- Fever is a tem (more content not included)... Normal [facility] Coronavirus 2019on 1 SARS-CoV-2 (COVID-19) RNA MICHELLE+probe Ql (Unsp spec) UPPER RESPIRATORY TRACT SWAB Normal [facility] Comment on above: Performed By: #### C OVFLU #### [facility] [address] [place] [address] SARS-CoV-2 (COVID-19) RNA MICHELLE+probe Ql (Unsp spec) Negative for COVID19 (SARS CoV2) by RT-PCR or equivalent method. Normal Negative for COVID19 (SARS CoV2) by RT-PCR or equivalent method. [facility] Comment on above: Result Comment: This test was developed and its performance characteristics determined by [facility] [place]. This test has been authorized by FDA under an Emergency Use Authorization (EUA). This test has been validated in accordance with the FDA's Guidance Document Policy for Diagnostics Testing in Laboratories Certified to Perform High Complexity Testing under CLIA prior to Emergency use Authorization for Coronavirus Disease 2019 during the Public Health Emergency issued on October 19, 2019. Test performed by [facility], [facility] [place], [address] [place] [address]. Performed By: #### C OVFLU #### [facility] [address] [place] [address] 2018 Novel Coronavirus (COVI D-19), MICHELLE ([id number])Ordered By: Produce Inspector on 11-25-20202018 Novel Coronavirus (COVID-19), MICHELLE ([id number]) Not detected Normal [facility]; [facility] Work Phone: Comment on above: This nucleic acid am plification test was developed and its performancecharacteristics determined by [facility]. Nucleic acidamplification tests include RT-PCR and TMA. [...] detected) result in this assay. PERFORMED BY: [facility] [place] [id number] [place] (ANTINUCLEAR ANTIBODY) ( [id number])Ordered By: Produce Inspector on 12-24-2019 Nuclear Ab Ql (S) Negative Normal [facility] Work Phone: Comment on above: PATIENT NOT FASTINGP ERFORMED BY: [facility] [place] [id number] Nuclear Ab Ql (S) Negative Normal [facility]; [facility] Work Phone: Comment on above: PATIENT NOT FASTINGP ERFORMED BY: [facility] [place] [id number] FERRITIN ([id number])Ordered By: Produce Inspector on 12-24-2019 Ferritin [Mass/Vol] 6 ng/mL Abnormal 15-150 Compr [facility]hens[facility] Work Phone: Comment on above: PATIENT NOT FASTINGP ERFORMED BY: [employer] [place] [id number] Iron Binding Capacity (TIBC) ([id number])Ordered By: Produce Inspector on 12-24-2019 Iron [Mass/Vol] 11 ug/dL Abnormal 27-159 Comprehen s[facility] Work Phone: Comment on above: PATIENT NOT FASTINGP ERFORMED BY: CB [facility] Birudh00[address] [place] [id number] Iron binding capacity [Mass/Vol] 462 ug/dL Abnormal 250-450 [facility] Work Phone: Comment on above: PATIENT NOT FASTINGP ERFORMED BY: CB [facility] Mogccv9024 [address] [place] [id number] Iron binding capacity.unsaturated [Mass/Vol] 451 ug/dL Abnormal 131-425 [facility] Work Phone: Comment on above: PATIENT NOT FASTINGP ERFORMED BY: CB [facility] Cwcknf9798 [address] RoadDublin [place] [id number] Iron saturation [Mass fraction] 2 % Abnormal 15-55 [facility] Work Phone: Comment on above: PATIENT NOT FASTINGP ERFORMED BY: CB [facility] Goazfw3204 [address] [place] [id number] METABOLIC PANEL, COMPREHENSI VE ([id number])Ordered By: Produce Inspector on 12-24-2019 Albumin [Mass/Vol] 4.8 g/dL Normal 3.8-4.8 [facility] Work Phone: Comment on above: PATIENT NOT FASTINGP ERFORMED BY: CB [facility] Mussgp0286 [address] [place] [id number] Albumin/Globulin [Mass ratio] 3.0 {ratio} Abnormal 1.2-2.2 [facility] Work Phone: Comment on above: PATIENT NOT FASTINGP ERFORMED BY: CB [facility] Fheypr5311 [address] [place] [id number] ALP [Catalytic activity/Vol] 72 [iU]/L Normal 39-117 [facility] Work Phone: Comment on above: PATIENT NOT FASTINGP ERFORMED BY: CB [facility] Pdrqjw2136 [address] [place] [id number] ALP [Catalytic activity/Vol] 72 U/L Normal 39-117 [facility]; [facility] Work Phone: Comment on above: PATIENT NOT FASTINGP ERFORMED BY: ANGELINE [facility] Ygjhyl[address] [place] [id number] ALT [Catalytic activity/Vol] 13 [iU]/L Normal 0-32 [facility] Work Phone: Comment on above: PATIENT NOT FASTINGP ERFORMED BY: ANGELINE [facility] Enwkbj4479 [address] [place] [id number] ALT [Catalytic activity/Vol] 13 U/L Normal 0-32 [facility]; [facility] Internal Medicine Work Phone: Comment on above: PATIENT NOT FASTINGP ERFORMED BY: ANGELINE [facility] [id number] Angel RoadDublin [place] [id number] AST [Catalytic activity/Vol] 16 [iU]/L Normal 0-40 [facility] Work Phone: Comment on above: PATIENT NOT FASTINGP ERFORMED BY: ANGELINE Briankaleigh SantiagoTnowyf2592 Angel RoadDublin [place] [id number] AST [Catalytic activity/Vol] 16 U/L Normal 0-40 [facility]; [facility] Work Phone: Comment on above: PATIENT NOT FASTINGP ERFORMED BY: ANGELINE WallaceCokaleigh SantiagoKsgefu5978 Angel RoadDublin [place] [id number] Bilirubin [Mass/Vol] 0.3 mg/dL Normal 0.0-1.2 Comp rehensive Internal Medicine Work Phone: Comment on above: PATIENT NOT FASTINGP ERFORMED BY: ANGELINE [facility] Shgywo9062 Angel RoadDublin [place] [id number] Calcium [Mass/Vol] 9.8 mg/dL Normal 8.7-10.2 [facility] Internal Medicine Work Phone: Comment on above: PATIENT NOT FASTINGP ERFORMED BY: ANGELINE [facility] Nmzkzh0544 [address] RoadDublin [place] [id number] Chloride [Moles/Vol] 105 mmol/L Normal 96-106 Comp re[facility]ive Internal Medicine Work Phone: Comment on above: PATIENT NOT FASTINGP ERFORMED BY: ANGELINE [facility] Pzpelf8898 [address] RoadDublin [place] [id number] CO2 [Moles/Vol] 23 mmol/L Normal 20-29 [facility] Internal Medicine Work Phone: Comment on above: PATIENT NOT FASTINGP ERFORMED BY: CB [facility] Nekxkv7373 [address] RoadDublin [place] [id number] Creatinine [Mass/Vol] 0.76 mg/dL Normal 0.57-1.00 [facility] Internal Medicine Work Phone: Comment on above: PATIENT NOT FASTINGP ERFORMED BY: CB [facility] Qrggil9546 [address] RoadDublin [place] [id number] GFR/1.73 sq M predicted among blacks CKD-EPI (S/P/Bld) [Vol rate/Area] 109 mL/min/1.73 Normal [facility] Work Phone: Comment on above: PATIENT NOT FASTINGP ERFORMED BY: CB [facility] [id number] [address] RoadDublin [place] [id number] GFR/1.73 sq M predicted among non-blacks CKD-EPI (S/P/Bld) [Vol rate/Area] 94 mL/min/1.73 Normal [facility] Work Phone: Comment on above: PATIENT NOT FASTINGP ERFORMED BY: CB [facility] Xmqypb2972 [address] RoadDublin [place] [id number] Globulin (S) [Mass/Vol] 1.6 g/dL Normal 1.5-4.5 [facility] Internal Medicine Work Phone: Comment on above: PATIENT NOT FASTINGP ERFORMED BY: CB [facility] Ifjyho6748 Angel RoadDublin [place] [id number] Glucose [Mass/Vol] 87 mg/dL Normal 65-99 [facility] Internal Medicine Work Phone: Comment on above: PATIENT NOT FASTINGP ERFORMED BY: CB [facility] Pthszl0642 [address] RoadDublin [place] [id number] Potassium [Moles/Vol] 4.8 mmol/L Normal 3.5-5.2 [facility] Internal Medicine Work Phone: Comment on above: PATIENT NOT FASTINGP ERFORMED BY: ANGELINE [facility] Rfgauj8376 [address] RoadDublin [place] [id number] Protein [Mass/Vol] 6.4 g/dL Normal 6.0-8.5 [facility] Internal Medicine Work Phone: Comment on above: PATIENT NOT FASTINGP ERFORMED BY: CB [facility] Magifi7422 [address] RoadDublin [place] [id number] Sodium [Moles/Vol] 143 mmol/L Normal 134-144 [facility] Internal Medicine Work Phone: Comment on above: PATIENT NOT FASTINGP ERFORMED BY: ANGELINE [facility] Edivyj0080 [address] RoadDublin [place] [id number] Urea nitrogen [Mass/Vol] 9 mg/dL Normal 6-24 [facility] Work Phone: Comment on above: PATIENT NOT FASTINGP ERFORMED BY: ANGELINE [facility] Xfvwth2983 [address] RoadDublin [place] [id number] Urea nitrogen/Creatinine [Mass ratio] 12 mg/mg Normal 9-23 [facility] Work Phone: Comment on above: PATIENT NOT FASTINGP ERFORMED BY: ANGELINE [facility] Rkjbje2628 [address] RoadDublin [place] [id number] CBC & PLATELETS (AUTO) ([id number])Ordered By: Produce Inspector on 12-23-2019 Erythrocyte distribution width (RBC) [Ratio] 19.9 % Abnormal 11.7-15.4 [facility] Work Phone: Comment on above: Test(s) Platelets ca lled to Dr Cuadra on 12/24/2019 at 05:54 ESTPATIENT NOT FASTINGPERFORMED BY: ANGELINE [facility] Jebtep5014 [address] RoadDublin [place] [id number] BY: LabUniversity [facility] Care1447 [facility] [id number] Hematocrit (Bld) [Volume fraction] 26.1 % Abnormal 34.0-46.6 [facility] Work Phone: Comment on above: Test(s) Platelets ca lled to Dr Cuadra on 12/24/2019 at 05:54 ESTPATIENT NOT FASTINGPERFORMED BY: [employer]6370 [facility] [id number] BY: [email or web address] [id number] Hemoglobin (Bld) [Mass/Vol] 6.9 g/dL Abnormal 11.1-15.9 [facility] Work Phone: Comment on above: Test(s) Platelets ca lled to Dr Cuadra on 12/24/2019 at 05:54 ESTPATIENT NOT FASTINGPERFORMED BY: [employer]6370 [facility] [id number] BY: One[employer] [id number] MCH (RBC) [Entitic mass] 16.5 pg Abnormal 26.6-33.0 [facility] Work Phone: Comment on above: Test(s) Platelets ca lled to Dr Cuadra on 12/24/2019 at 05:54 ESTPATIENT NOT FASTINGPERFORMED BY: [employer]6370 [facility] [id number] BY: [email or web address] [id number] MCHC (RBC) [Mass/Vol] 26.4 g/dL Abnormal 31.5-35.7 [facility] Internal Medicine Work Phone: Comment on above: Test(s) Platelets ca lled to Dr Cuadra on 12/24/2019 at 05:54 ESTPATIENT NOT FASTINGPERFORMED BY: [employer]6370 [facility] [id number] BY: [employer] [id number] MCV (RBC) [Entitic vol] 63 fL Abnormal 79-97 [facility] Work Phone: Comment on above: Test(s) Platelets ca lled to Dr Cuadra on 12/24/2019 at 05:54 ESTPATIENT NOT FASTINGPERFORMED BY: ANGELINE enosiX Rzjhic8058 [facility] [id number] BY: [employer] Wsdcrynzga[address] [id number] Morphology Dragan (Bld) [Interp] Note: Normal [facility] Work Phone: Comment on above: Verified by microsco pic examination. Test(s) Platelets ca lled to Dr Cuadra on 12/24/2019 at 05:54 ESTPATIENT NOT FASTINGPERFORMED BY: [employer]70 [facility] [id number] BY: GuidesMob[address] [id number] Platelets (Bld) [#/Vol] 1036 {x10E3/uL} Abnormal 150-450 [facility] Work Phone: Comment on above: Platelets vary in si ze.Large platelets were observed. Test(s) Platelets ca lled to Dr Cuadra on 12/24/2019 at 05:54 ESTPATIENT NOT FASTINGPERFORMED BY: [employer]6370 [facility] [id number] BY: [employer] Wuuusxspyn[address] [id number] Platelets (Bld) [#/Vol] 1036 10*3/uL Abnormal 150-450 [facility]; [facility] Work Phone: Comment on above: Platelets vary in si ze.Large platelets were observed. Test(s) Platelets ca lled to Dr Cuadra on 12/24/2019 at 05:54 ESTPATIENT NOT FASTINGPERFORMED BY: [employer]6370 [facility] [id number] BY: One[employer] [id number] RBC (Bld) [#/Vol] 4.17 {x10E6/uL} Normal 3.77-5.28 [facility] Internal Medicine Work Phone: Comment on above: Polychromasia presen t Test(s) Platelets ca lled to Dr Cuadra on 12/24/2019 at 05:54 ESTPATIENT NOT FASTINGPERFORMED BY: [employer]6370 [facility] [id number] BY: J[employer] [address] [id number] RBC (Bld) [#/Vol] 4.17 10*6/uL Normal 3.77-5.28 [facility]; [facility] Work Phone: Comment on above: Polychromasia presen t Test(s) Platelets ca lled to Dr Cuadra on 12/24/2019 at 05:54 ESTPATIENT NOT FASTINGPERFORMED BY: [employer]6370 [facility] [id number] BY: GuidesMob[address] [id number] WBC (Bld) [#/Vol] 5.8 {x10E3/uL} Normal 3.4-10.8 [facility] Internal Medicine Work Phone: Comment on above: Test(s) Platelets ca lled to Dr Cuadra on 12/24/2019 at 05:54 ESTPATIENT NOT FASTINGPERFORMED BY: [employer]6370 [facility] [id number] BY: GuidesMob[address] [id number] WBC (Bld) [#/Vol] 5.8 10*3/uL Normal 3.4-10.8 [facility] Internal Medicine; [facility] Work Phone: Comment on above: Test(s) Platelets ca lled to Dr Cuadra on 12/24/2019 at 05:54 ESTPATIENT NOT FASTINGPERFORMED BY: [employer]6370 [facility] [id number] BY: Globe[employer] [id number] Immunoglobulins, Quantitativ e, IgA,IgE, IgG, IgM ([id number])Ordered By: Produce Inspector on 12-23-2019 IgA [Mass/Vol] mg/dL Abnormal 87-352 [facility] Work Phone: Comment on above: Result confirmed on concentration. Test(s) Platelets ca lled to Dr Cuadra on 12/24/2019 at 05:54 ESTPATIENT NOT FASTINGPERFORMED BY: Srd Industriesrp Eqatgn[address] Invoice2goAtrium Health Southparkin [place] [id number] BY: GuidesMob[address] [id number] IgA [Mass/Vol] mg/dL Abnormal 87-352 [facility] Internal Medicine; [facility] Work Phone: Comment on above: Result confirmed on concentration. Test(s) Platelets ca lled to Dr Cuadra on 12/24/2019 at 05:54 ESTPATIENT NOT FASTINGPERFORMED BY: [employer]6370 AngelD'Shane ServicesCone Health [id number] BY: GuidesMob[address] [id number] IgE Qn [IU]/L Abnormal 6-495 [facility] Work Phone: Comment on above: Test(s) Platelets ca lled to Dr Cuadra on 12/24/2019 at 05:54 ESTPATIENT NOT FASTINGPERFORMED BY: [employer]6370 [facility] [id number] BY: GuidesMob[address] [id number] IgE Qn [IU]/L Abnormal 6-495 [facility]; [facility] Work Phone: Comment on above: Test(s) Platelets ca lled to Dr Cuadra on 12/24/2019 at 05:54 ESTPATIENT NOT FASTINGPERFORMED BY: [employer]6370 [facility] [id number] BY: J[employer] [address] [id number] IgG [Mass/Vol] 381 mg/dL Abnormal 586-1602 [facility] Internal Medicine Work Phone: Comment on above: Test(s) Platelets ca lled to Dr Cuadra on 12/24/2019 at 05:54 ESTPATIENT NOT FASTINGPERFORMED BY: [facility] Ooynnq9552 [facility] [id number] BY: [place] 478517 [facility] [id number] IgM [Mass/Vol] 32 mg/dL Normal 26-217 [facility] Internal Medicine Work Phone: Comment on above: Test(s) Platelets ca lled to Dr Cuadra on 12/24/2019 at 05:54 ESTPATIENT NOT FASTINGPERFORMED BY: [employer] Ignfbk2791 [facility] [id number] BY: [address] [id number] 2019 Novel Coronavirus (COVI D-19), MICHELLE ([id number])Ordered By: Produce Inspector on 12-12-20192018 Novel Coronavirus (COVID-19), MICHELLE ([id number]) Not Detected Normal [facility] Work Phone: Comment on above: This test was develo ped and its performance characteristics determinedby [facility]. This test has not been FDA cleared orapproved. This test has been authorized by FDA under an Emergency UseAuthorization (EUA). This test has been validated in accordance withthe FDA's Guidance Document (Policy for Diagnostics Testing inLaboratories Certified to Perform High Complexity Testing under CLIAprior to Emergency Use Authorization for Coronavirus Disease-2019during the Public Health Emergency) issued on October 19, 2019.[facility] independent review of this validation is pending. This test isonly authorized for the duration of time the declaration thatcircumstances exist justifying the authorization of the emergency useof in vitro diagnostic tests for detection of SARS-CoV-2 virus and/ordiagnosis of COVID-19 infection under section 564(b)(1) of the Act, 21U.S.C. 360bbb-3(b)(1), unless the authorization is terminated orrevoked sooner. PATIENT NOT FASTINGP ERFORMED BY: [address] [id number] Information: NASAL 2019 Novel Coronavirus (COVID-19), MICHELLE ([id number]) Not detected Normal [facility]; [facility] Work Phone: Comment on above: This test was develo ped and its performance characteristics determinedby [facility]. This test has not been FDA cleared [...] orrevoked sooner. PATIENT NOT FASTINGP ERFORMED BY: [email or web address]com[address] [id number] Information: NASAL Vital Signs Date Time Vital Sign Value Performing Clinician Facility 12-08-2024 09:17-0400 Body temperature 98 [degF] Dr. Yarelis Fitzpatrick DO Work Phone: [facility] 12-08-2024 09:17-0400 Diastolic blood pressure 96 mm[Hg] Dr. Yarelis Fitzpatrick DO Work Phone: [facility] 12-08-2024 09:17-0400 Heart rate 106 /min Dr. Yarelis Fitzpatrick DO Work Phone: [facility] 12-08-2024 09:17-0400 Respiratory rate 22 /min Dr. Yarelis Fitzpatrick DO Work Phone: [facility] 12-08-2024 09:17-0400 SaO2% (BldA) [Mass fraction] 97 % Dr. Yarelis Fitzpatrick DO Work Phone: [facility] 12-08-2024 09:17-0400 Systolic blood pressure 148 mm[Hg] Dr. Yarelis Fitzpatrick DO Work Phone: [facility] 12-08-2024 06:50-0400 Body height 167.[address] Yarelis Fitzpatrick DO Work Phone: [facility] 12-08-2024 06:50-0400 Body mass index (BMI) [Ratio] 22.6 kg/m2 Dr. Yarelis Fitzpatrick DO Work Phone: [facility] 12-08-2024 06:50-0400 Body weight 63.[address] Yarelis Fitzpatrick DO Work Phone: [facility] 11-06-2024 23:37-0400 Body temperature 98.5 [degF] Dr. Yarelis Fitzpatrick DO Work Phone: [facility] 11-06-2024 23:37-0400 Diastolic blood pressure 89 mm[Hg] Dr. Yarelis Fitzpatrick DO Work Phone: [facility] 11-06-2024 23:37-0400 Heart rate 98 /min Dr. Yarelis Fitzpatrick DO Work Phone: [facility] 11-06-2024 23:37-0400 Respiratory rate 18 /min Dr. Yarelis Fitzpatrick DO Work Phone: [facility] 11-06-2024 23:37-0400 SaO2% (BldA) [Mass fraction] 97 % Dr. Yarelis Fitzpatrick DO Work Phone: [facility] 11-06-2024 23:37-0400 Systolic blood pressure 163 mm[Hg] Dr. Yarelis Fitzpatrick DO Work Phone: [facility] 11-06-2024 21:19-0400 Body height 167.[address] Yarelis Fitzpatrick DO Work Phone: [facility] 11-06-2024 21:19-0400 Body mass index (BMI) [Ratio] 22.6 kg/m2 Dr. Yarelis Fitzpatrick DO Work Phone: [facility] 11-06-2024 21:19-0400 Body weight 63.[address] Yarelis Fitzpatrick DO Work Phone: [facility] 11-01-2024 09:28-0400 Body mass index (BMI) [Ratio] 22.2 kg/m2 Dr. Yarelis Fitzpatrick DO Work Phone: [facility] 11-01-2024 09:28-0400 Body temperature 97.6 [degF] Dr. Yarelis Fitzpatrick DO Work Phone: [facility] 11-01-2024 09:28-0400 Body weight 62.[address] Yarelis Fitzpatrick DO Work Phone: [facility] 11-01-2024 09:28-0400 Diastolic blood pressure 90 mm[Hg] Dr. Yarelis Fitzpatrick DO Work Phone: [facility] 11-01-2024 09:28-0400 Heart rate 73 /min Dr. Yarelis Fitzpatrick DO Work Phone: [facility] 11-01-2024 09:28-0400 Respiratory rate 20 /min Dr. Yarelis Fitzpatrick DO Work Phone: [facility] 11-01-2024 09:28-0400 SaO2% (BldA) [Mass fraction] 95 % Dr. Yarelis Fitzpatrick DO Work Phone: [facility] 11-01-2024 09:28-0400 Systolic blood pressure 144 mm[Hg] Dr. Yarelis Fitzpatrick DO Work Phone: [facility] 08-30-2024 08:09-0500 Body height 167.[address] Yarelis Fitzpatrick DO Work Phone: [facility] 08-30-2024 08:09-0500 Body mass index (BMI) [Ratio] 23.1 kg/m2 Dr. Yarelis Fitzpatrick DO Work Phone: [facility] 08-30-2024 08:09-0500 Body temperature 97.7 [degF] Dr. Yarelis Fitzpatrick DO Work Phone: [facility] 08-30-2024 08:09-0500 Body weight 64.[address] Yarelis Fitzpatrick DO Work Phone: [facility] 08-30-2024 08:09-0500 Diastolic blood pressure 86 mm[Hg] Dr. Yarelis Fitzpatrick DO Work Phone: [facility] 08-30-2024 08:09-0500 Heart rate 92 /min Dr. Yarelis Fitzpatrick DO Work Phone: [facility] 08-30-2024 08:09-0500 Respiratory rate 14 /min Dr. Yarelis Fitzpatrick DO Work Phone: [facility] 08-30-2024 08:09-0500 SaO2% (BldA) [Mass fraction] 96 % Dr. Yarelis Fitzpatrick DO Work Phone: [facility] 08-30-2024 08:09-0500 Systolic blood pressure 161 mm[Hg] Dr. Yarelis Fitzpatrick DO Work Phone: [facility] 08-15-2023 08:44-0500 Body height 167.[address] Yarelis Fitzpatrick Work Phone: [facility] 08-15-2023 08:44-0500 Body mass index (BMI) [Ratio] 22.3 kg/m2 Dr. Yarelis Fitzpatrick Work Phone: [facility] 08-15-2023 08:44-0500 Body temperature 97.6 [degF] Dr. Yarelis Fitzpatrick Work Phone: [facility] 08-15-2023 08:44-0500 Body weight 62.[address] Yarelis Fitzpatrick Work Phone: [facility] 08-15-2023 08:44-0500 Diastolic blood pressure 91 mm[Hg] Dr. Yarelis Fitzpatrick Work Phone: [facility] 08-15-2023 08:44-0500 Heart rate 89 /min Dr. Yarelis Fitzpatrick Work Phone: [facility] 08-15-2023 08:44-0500 Respiratory rate 18 /min Dr. Yarelis Fitzpatrick Work Phone: [facility] 08-15-2023 08:44-0500 SaO2% (BldA) [Mass fraction] 98 % Dr. Yarelis Fitzpatrick Work Phone: [facility] 08-15-2023 08:44-0500 Systolic blood pressure 152 mm[Hg] Dr. Yarelis Fitzpatrick Work Phone: [facility] 01-24-2023 06:02-0400 Body height 167.[address] Yarelis Fitzpatrick Work Phone: [facility] 01-24-2023 06:02-0400 Body mass index (BMI) [Ratio] 21.4 kg/m2 Dr. Yarelis Fitzpatrick Work Phone: [facility] 01-24-2023 06:02-0400 Body temperature 98.2 [degF] Dr. Yarelis Fitzpatrick Work Phone: [facility] 01-24-2023 06:02-0400 Body weight 60.[address] Yarelis Fitzpatrick Work Phone: [facility] 01-24-2023 06:02-0400 Diastolic blood pressure 88 mm[Hg] Dr. Yarelis Fitzpatrick Work Phone: [facility] 01-24-2023 06:02-0400 Heart rate 107 /min Dr. Yarelis Fitzpatrick Work Phone: [facility] 01-24-2023 06:02-0400 Respiratory rate 18 /min Dr. Yarelis Fitzpatrick Work Phone: [facility] 01-24-2023 06:02-0400 SaO2% (BldA) [Mass fraction] 96 % Dr. Yarelis Fitzpatrick Work Phone: [facility] 01-24-2023 06:02-0400 Systolic blood pressure 144 mm[Hg] Dr. Yarelis Fitzpatrick Work Phone: [facility] 01-05-2023 09:46-0400 Body height 167.64 cm Patience [...] 11:59-0400 Body height 167.64 cm Lyubov Lemon [facility]; [facility] Work Phone: Comment on above: VIRTUAL 12-30-2022 11:59-0400 Body mass index (BMI) [Ratio] 23.24 kg/m2 [facility]; [facility] Work Phone: Comment on above: VIRTUAL 12-30-2022 11:59-0400 Body surface area Derived from formula 1.74 m2 Lyubovfely Lemon [facility]; [facility] Work Phone: Comment on above: VIRTUAL 12-30-2022 11:59-0400 Body weight 65.32 kg Lyubov Lemon [facility]; [facility] Work Phone: Comment on above: VIRTUAL 12-16-2022 11:07-0400 Body height 167.64 cm Kiesha Martinez LPN [facility]; [facility] Work Phone: 12-16-2022 11:07-0400 Body mass index (BMI) [Ratio] 23.24 kg/m2 Kiesha Slarb CYTOMETRY TECHNOLOGIST [facility]; [facility] Work Phone: 12-16-2022 11:07-0400 Body surface area Derived from formula 1.74 m2 Kiesha Slarb CYTOMETRY TECHNOLOGIST [facility]; [facility] Work Phone: 12-16-2022 11:07-0400 Body temperature 97.9 [degF] Kiesha Slarb CYTOMETRY TECHNOLOGIST [facility]; [facility] Work Phone: Comment on above: Method: Temporal 12-16-2022 11:07-0400 Body weight 65.32 kg Kiesha Slarb CYTOMETRY TECHNOLOGIST [facility]; [facility] Work Phone: 12-16-2022 11:07-0400 Diastolic blood pressure 78 mm[Hg] Kiesha Slarb CYTOMETRY TECHNOLOGIST [facility]; [facility] Work Phone: Comment on above: Patient Position: Sitting; Cuff Location : Left Arm; Cuff Size: Standard 12-16-2022 11:07-0400 Heart rate 86 /min Kiesha Slarb CYTOMETRY TECHNOLOGIST [facility]; [facility] Work Phone: Comment on above: Pattern: Regular 12-16-2022 11:07-0400 Respiratory rate 18 /min Kiesha Slarb CYTOMETRY TECHNOLOGIST [facility]; [facility] Work Phone: Comment on above: Pattern: Unlabored 12-16-2022 11:07-0400 SaO2% (BldA) [Mass fraction] 98 % Kiesha Slarb CYTOMETRY TECHNOLOGIST [facility]; [facility] Work Phone: Comment on above: Room air 12-16-2022 11:07-0400 Systolic blood pressure 122 mm[Hg] Kiesha Slarb CYTOMETRY TECHNOLOGIST [facility]; [facility] Work Phone: Comment on above: Patient Position: Sitting; Cuff Location : Left Arm; Cuff Size: Standard 12-05-2022 12:10-0400 Body height 167.64 cm Yarelis Saezon DO Work Phone: [facility]; [facility] Work Phone: 12-05-2022 12:10-0400 Body mass index (BMI) [Ratio] 23.24 kg/m2 Yarelis Saezon DO Work Phone: [facility]; [facility] Work Phone: 12-05-2022 12:10-0400 Body surface area Derived from formula 1.74 m2 Yarelis Fitzpatrick DO Work Phone: [facility]; [facility] Work Phone: 12-05-2022 12:10-0400 Body weight 65.32 kg Yarelis Saezon DO Work Phone: [facility]; [facility] Work Phone: 12-05-2022 12:10-0400 Diastolic blood pressure 80 mm[Hg] Yarelis Saezon DO Work Phone: [facility]; [facility] Work Phone: Comment on above: Patient Position: Sitting 12-05-2022 12:10-0400 Heart rate 84 /min Yarelis Fitzpatrick DO Work Phone: [facility]; [facility] Work Phone: Comment on above: Pattern: Regular 12-05-2022 12:10-0400 Systolic blood pressure 130 mm[Hg] Yarelis Fitzpatrick DO Work Phone: [facility]; [facility] Work Phone: Comment on above: Patient Position: Sitting 11-07-2022 00:57-0400 Body temperature 98.4 [degF] [facility] 11-07-2022 00:57-0400 Diastolic blood pressure 88 mm[Hg] [facility] 11-07-2022 00:57-0400 Heart rate 88 /min [facility] 11-07-2022 00:57-0400 Respiratory rate 16 /min [facility] 11-07-2022 00:57-0400 Systolic blood pressure 168 mm[Hg] [facility] 11-07-2022 00:00-0400 SaO2% (BldA) [Mass fraction] 97 % [facility] 11-06-2022 22:01-0400 Body height 167.64 cm [facility] 11-06-2022 22:01-0400 Body mass index (BMI) [Ratio] 23.3 kg/m2 [facility] 11-06-2022 22:01-0400 Body weight 65.54 kg [facility] 11-06-2022 09:26-0400 Body temperature 99.3 [degF] Abrahan Nicholas CASINO DEALER.ENGRAVER MACHINE Work Phone: [facility] 11-06-2022 09:26-0400 Body weight 65.05 kg Abrahan Nicholas CASINO DEALER.ENGRAVER MACHINE Work Phone: [facility] 11-06-2022 09:26-0400 Diastolic blood pressure 92 mm[Hg] Abrahan Nicholas CASINO DEALER.ENGRAVER MACHINE Work Phone: [facility] 11-06-2022 09:26-0400 Heart rate 107 /min Abrahan Nicholas CASINO DEALER.ENGRAVER MACHINE Work Phone: [facility] 11-06-2022 09:26-0400 Respiratory rate 18 /min Abrahan Nicholas CASINO DEALER.ENGRAVER MACHINE Work Phone: [facility] 11-06-2022 09:26-0400 SaO2% (BldA) [Mass fraction] 96 % Abrahan Nicholas CASINO DEALER.ENGRAVER MACHINE Work Phone: [facility] 11-06-2022 09:26-0400 Systolic blood pressure 142 mm[Hg] Abrahan Nicholas CASINO DEALER.ENGRAVER MACHINE Work Phone: [facility] 10-14-2022 10:24-0500 Body height 167.64 cm Yarelis Amari DO [...] 10:24-0500 Diastolic blood pressure 80 mm[Hg] Yarelis Amari DO Work Phone: [facility]; [facility] Work Phone: Comment on above: Patient Position: Sitting 10-14-2022 10:24-0500 Heart rate 88 /min Yarelis Saezon DO Work Phone: [facility]; [facility] Work Phone: Comment on above: Pattern: Regular 10-14-2022 10:24-0500 Systolic blood pressure 130 mm[Hg] Yarelis Saezon DO Work Phone: [facility]; [facility] Work Phone: Comment on above: Patient Position: Sitting 10-07-2022 10:41-0500 Body height 167.64 cm Lyubov AkinTurbocoating [facility]; [facility] Work Phone: 10-07-2022 10:41-0500 Body mass index (BMI) [Ratio] 23.34 kg/m2 Lyubov GerardoTurbocoating [facility]; [facility] Work Phone: 10-07-2022 10:41-0500 Body surface area Derived from formula 1.74 m2 Lyubov Lemon [facility]; [facility] Work Phone: 10-07-2022 10:41-0500 Body temperature 98.5 [degF] Lyubov GerardomerlinPublishThis [facility]; [facility] Work Phone: Comment on above: Method: Thermal Scan 10-07-2022 10:41-0500 Body weight 65.59 kg Lyubov Lemon [facility]; [facility] Work Phone: 10-07-2022 10:41-0500 Diastolic blood pressure 80 mm[Hg] Lyubov Lemon [facility]; [facility] Work Phone: Comment on above: Patient Position: Sitting; Cuff Location : Left Arm; Cuff Size: Standard 10-07-2022 10:41-0500 Heart rate 86 /min Lyubov Lemon [facility]; [facility] Work Phone: Comment on above: Pattern: Regular 10-07-2022 10:41-0500 Respiratory rate 16 /min Lyubov Lemon [facility]; [facility] Work Phone: Comment on above: Pattern: Unlabored 10-07-2022 10:41-0500 SaO2% (BldA) [Mass fraction] 97 % Lyubov Lemon [facility]; [facility] Work Phone: Comment on above: Room air 10-07-2022 10:41-0500 Systolic blood pressure 130 mm[Hg] Lyubov Lemon [facility]; [facility] Work [...] 04-26-2022 08:41-0400 Body height 167.64 cm Kiesha Martinez CYTOMETRY TECHNOLOGIST [facility]; [facility] Work Phone: Comment on above: pt did not report-virtual 04-26-2022 08:41-0400 Body mass index (BMI) [Ratio] 21.67 kg/m2 Kiesha Martinez [facility]; [facility] Work Phone: Comment on above: pt did not report-virtual 04-26-2022 08:41-0400 Body surface area Derived from formula 1.69 m2 Kiesha Martinez [facility]; [facility] [...] Phone: Comment on above: Method: Temporal 02-22-2022 10:05-0400 Body weight 60.9 kg Yaa Calderon MA [...] 08:48-0400 Body temperature 99.39 [degF] Abrahan Peterson CASINO DEALER.ENGRAVER MACHINE Work Phone: [facility] 01-23-2022 08:48-0400 Body weight 62.32 kg Abrahan Peterson CASINO DEALER.ENGRAVER MACHINE Work Phone: [facility] 01-23-2022 08:48-0400 Diastolic blood pressure 88 mm[Hg] Abrahan Peterson CASINO DEALER.ENGRAVER MACHINE Work Phone: [facility] 01-23-2022 08:48-0400 Heart rate 89 /min Abrahan Peterson CASINO DEALER.ENGRAVER MACHINE Work Phone: [facility] 01-23-2022 08:48-0400 Respiratory rate 18 /min Abrahan Peterson CASINO DEALER.ENGRAVER MACHINE Work Phone: [facility] 01-23-2022 08:48-0400 SaO2% (BldA) [Mass fraction] 97 % Abrahan Peterson CASINO DEALER.ENGRAVER MACHINE Work Phone: [facility] 01-23-2022 08:48-0400 Systolic blood pressure 146 mm[Hg] Abrahan Peterson CASINO DEALER.ENGRAVER MACHINE Work Phone: [facility] 10-15-2021 08:33-0500 Body height 167.64 cm Haydee Sorensen [facility]; [facility] Work Phone: Comment on above: no vs taken as this is phone encounter d ue to covid 10-15-2021 08:33-0500 Body mass index (BMI) [Ratio] 21.67 kg/m2 Haydee Sorensen [facility]; [facility] Work Phone: Comment on above: no vs taken as this is phone encounter d ue to covid 10-15-2021 08:33-0500 Body surface area Derived from formula 1.69 m2 Haydee Sorensen [facility]; [facility] Work Phone: Comment on above: no vs taken as this is phone encounter d ue to covid 10-15-2021 08:33-0500 Body weight 60.9 kg Haydee Sorensen CMA [facility]; [facility] [...] 07-02-2021 10:31-0500 Body weight 60.9 kg Yaa Caldreon MA [facility]; [facility] [...] 08:56-0400 Body height 167.64 cm Blanca Morrow LPN [facility]; [facility] Work Phone: 01-22-2021 08:56-0400 Body mass index (BMI) [Ratio] 21.67 kg/m2 [facility]; [facility] Work Phone: 01-22-2021 08:56-0400 Body surface area Derived from formula 1.69 m2 [facility]; [facility] Work Phone: 01-22-2021 08:56-0400 Body weight 60.9 kg [facility]; [facility] Work Phone: 10-12-2020 09:15-0500 BMI (Body Mass Index) 21.67 kg/m2 Katia Desai CNP Work Phone: [facility]; [facility] Work Phone: 10-12-2020 09:15-0500 Body Temperature 98.8 [degF] Katia Desai CNP Work Phone: [facility]; [facility] Work Phone: 10-12-2020 09:15-0500 Body weight 60.9 kg Katia Desai CNP Work Phone: [facility]; [facility] Work Phone: 10-12-2020 09:15-0500 BSA (Body Surface Area) 1.69 m2 Katia Desai CNP Work Phone: [facility]; [facility] Work Phone: 10-12-2020 09:15-0500 Height 167.64 cm Katia Desai CNP Work Phone: [facility]; [facility] Work Phone: 10-12-2020 09:15-0500 Pulse (Heart Rate) 82 /min Katia Desai CNP Work Phone: [facility]; [facility] Work Phone: Comment on above: Pattern: Regular 09-14-2020 08:56-0500 BMI (Body Mass Index) 21.67 kg/m2 Kiesha Martinez [facility]; [facility] Work Phone: Comment on above: patient did not report 09-14-2020 08:56-0500 Body weight 60.9 kg Kiesha Slarb CYTOMETRY TECHNOLOGIST [facility]; [facility] Work Phone: Comment on above: patient did not report 09-14-2020 08:56-0500 BSA (Body Surface Area) 1.69 m2 Kiesha Slarb CYTOMETRY TECHNOLOGIST [facility]; [facility] Work Phone: Comment on above: patient did not report 09-14-2020 08:56-0500 Height 167.64 cm Kiesha Slarb CYTOMETRY TECHNOLOGIST [facility]; [facility] Work [...] Work Phone: Comment on above: Room air 05-22-2020 12:16-0400 Respiratory Rate 18 /min Lizbeth Rothman [...] Phone: 12-24-2019 08:07-0400 BP Diastolic 84 mm[Hg] AMNUEL Voss LPN [facility] Work Phone: [...] (Heart Rate) 94 /min MANUEL Voss LPN [facility] Medicine Work Phone: Comment on above: Pattern: Regular 12-24-2019 08:07-0400 Pulse Oximetry 98 % Yarelis Fitzpatrick [facility] Work Phone: Comment on above: Room air 12-24-2019 08:07-0400 Respiratory Rate 20 /min MANUELLEIGH ANN Voss LAURO [facility] Work Phone: Comment on above: Pattern: Unlabored 12-24-2019 08:07-0400 SaO2% (BldA) [Mass fraction] 98 % MANUEL Voss LAURO [facility]; [facility] [...] (Body Mass Index) 20.98 kg/m2 Lissett Jackson ive Internal Medicine Work Phone: 12-12-2019 13:43-0400 Body weight 58.97 kg Lissett Tolbert RN [facility] Work Phone: 12-12-2019 13:43-0400 BSA (Body Surface Area) 1.67 m2 Lissett Tolbert RN [facility] Work Phone: 12-12-2019 13:43-0400 Height 167.64 cm Lissett Tolbert RN [facility] Work Phone: 12-11-2019 13:01-0400 BMI (Body Mass Index) 20.98 kg/m2 Erasmo Lino CYTOMETRY TECHNOLOGIST [facility] Internal Medicine Work Phone: 12-11-2019 13:01-0400 Body Temperature 98.4 [degF] Erasmo Lino CYTOMETRY TECHNOLOGIST [facility] Work Phone: Comment on above: Method: Temporal 12-11-2019 13:0400 Body weight 58.97 kg Erasmo Lino CYTOMETRY TECHNOLOGIST [facility] Work Phone: 12-11-2019 13:-0400 BSA (Body Surface Area) 1.67 m2 Erasmo Lino CYTOMETRY TECHNOLOGIST [facility] Work Phone: 12-11-2019 13:0400 Height 167.64 cm Erasmo Lino CYTOMETRY TECHNOLOGIST [facility] Work Phone: 02-27-2013 16:35-0400 Body [...] 08:51-0400 Body Temperature 96.9 [degF] Yarelis Fitzpatrick [facility] Work Phone: Comment on above: Method: Oral 06-01-2010 08:51-0400 Body weight 57.32 kg Yarelis Fitzpatrick [facility] Work Phone: 06-01-2010 08:51-0400 BP Diastolic 70 mm[Hg] Yarelis Fitzpatrick [facility] Work Phone: Comment on above: Patient Position: Sitting; Cuff Location : Left Arm; Cuff Size: Standard 06-01-2010 08:51-0400 BP Systolic 120 mm[Hg] Yarelis Fitzpatrick [facility] Work Phone: Comment on above: Patient Position: Sitting; Cuff Location : Left Arm; Cuff Size: Standard 06-01-2010 08:51-0400 Pulse (Heart Rate) 78 /min Yarelis Fitzpatrick [facility] Work Phone: Comment on above: Pattern: Regular 06-01-2010 08:51-0400 Pulse Oximetry 98 % Yarelis Fitzpatrick [facility] Work Phone: Comment on above: Room air 06-01-2010 08:51-0400 Respiratory Rate 17 /min Yarelis Fitzpatrick [facility] Work Phone: Comment on above: Pattern: Unlabored 06-01-2010 08:51-0400 SaO2% (BldA) [Mass fraction] 98 % Yarelis Fitzpatrick DO Work Phone: [facility]; [facility] Work Phone: Comment on above: Room air 04-30-2010 09:02-0400 Body Temperature 98.4 [degF] MANUEL Voss LPN [facility] Work Phone: Comment on above: Method: Oral 04-30-2010 09:02-0400 Body weight 58.97 kg MANUEL Voss CYTOMETRY TECHNOLOGIST [facility] Medicine Work Phone: 04-30-2010 09:02-0400 BP Diastolic 74 mm[Hg] MANUEL Voss CYTOMETRY TECHNOLOGIST [facility] Work Phone: Comment on above: Patient Position: Sitting; Cuff Location : Left Arm; Cuff Size: Standard 04-30-2010 09:02-0400 BP Systolic 116 mm[Hg] MANUEL Voss LPN [facility] Work Phone: Comment on above: Patient Position: Sitting; Cuff Location : Left Arm; Cuff Size: Standard 04-30-2010 09:02-0400 Pulse (Heart Rate) 78 /min MANUEL Voss LPN [facility] Internal Medicine Work Phone: Comment on above: Pattern: Regular 04-30-2010 09:02-0400 Respiratory Rate 18 /min MANUEL Voss LPN [facility] Work Phone: Comment on above: Pattern: Unlabored 12-01-2009 14:23-0400 BMI (Body Mass Index) 21.21 kg/m2 Yarelis Fitzpatrick [facility] Internal Medicine Work Phone: 12-01-2009 14:23-0400 Body Temperature 97.3 [degF] Yarelis Fitzpatrick [facility] Work Phone: Comment on above: Method: Oral 12-01-2009 14:23-0400 Body weight 59.62 kg Yarelis Fitzpatrick [facility] Work Phone: 12-01-2009 14:23-0400 BP Diastolic 74 mm[Hg] Yarelis Fitzpatrick [facility] Work Phone: Comment [...] (Heart Rate) 80 /min Lizbeth Rothman RN [facility] Work Phone: Comment on above: Pattern: Regular 01-27-2009 10:51-0400 Respiratory Rate 20 /min Lizbeth Rothman RN [facility] Work Phone: Comment on above: Pattern: Unlabored 12-31-2008 14:31-0400 BMI (Body Mass Index) 21.21 kg/m2 [facility] Work Phone: 12-31-2008 14:31-0400 Body Temperature 98.3 [degF] [facility] Work Phone: Comment on above: Method: Oral 12-31-2008 14:31-0400 Body weight 59.62 kg [facility] Work Phone: 12-31-2008 14:31-0400 BP Diastolic 66 mm[Hg] [facility] Work Phone: Comment on above: Patient Position: Sitting; Cuff Location : Left Arm; Cuff Size: Standard 12-31-2008 14:31-0400 BP Systolic 108 mm[Hg] [facility] Work Phone: Comment on above: Patient Position: Sitting; Cuff Location : Left Arm; Cuff Size: Standard 12-31-2008 14:31-0400 BSA (Body Surface Area) 1.67 m2 Bethany [facility] Medicine Work Phone: 12-31-2008 14:31-0400 Head Circumference 0 cm Yarelis Fitzpatrick [facility] Work Phone: 12-31-2008 14:31-0400 Head Occipital-frontal circumference 0 cm [facility]; [facility] Work Phone: 12-31-2008 14:31-0400 Height 167.64 cm [facility] Work Phone: 12-31-2008 14:31-0400 Pulse (Heart Rate) 68 /min Bethany [facility] Work Phone: Comment on above: Pattern: Regular 12-31-2008 14:31-0400 Respiratory Rate 18 /min Bethany [facility] Work Phone: Comment on above: Pattern: Unlabored 08-27-2008 15:28-0500 BMI (Body Mass Index) 19.85 kg/m2 Bonnie Patel RN [facility] Medicine Work Phone: 08-27-2008 15:28-0500 Body Temperature 97.2 [degF] Bonnie Patel RN [facility] Work Phone: Comment on above: Method: Oral 08-27-2008 15:28-0500 Body weight 55.79 kg Bonnie Patel RN [facility] Work Phone: 08-27-2008 15:28-0500 BP Diastolic 62 mm[Hg] Bonnie Patel RN [facility] Work Phone: Comment on above: Patient Position: Sitting; Cuff Location : Left Arm; Cuff Size: Standard 08-27-2008 15:28-0500 BP Systolic 118 mm[Hg] Bonnie Patel RN [facility] Work Phone: Comment on above: Patient Position: Sitting; Cuff Location : Left Arm; Cuff Size: Standard 08-27-2008 15:28-0500 BSA (Body Surface Area) 1.63 m2 Bonnie Patel RN [facility] Work Phone: 08-27-2008 15:28-0500 Head Circumference 0 cm Yarelis Fitzpatrick [facility] Work Phone: 08-27-2008 15:28-0500 Head Occipital-frontal circumference 0 cm Bonnie Patel RN [facility]; [facility] Work Phone: 08-27-2008 15:28-0500 Height 167.64 cm Bonnie Patel RN [facility] Work Phone: 08-27-2008 15:28-0500 Pulse [...] 11-30-2007 13:00-0400 Head Circumference 0 cm Yarelis Amari [facility] Work Phone: 11-30-2007 13:00-0400 [...] Encounter Type Care Provider Facility Start: 03-04-2025 End: 03-04-[address] Yarelis Fitzpatrick DO Work Phone: -[facility] Start: 03-04-2025 End: 03-04-[address] aRjat Tarango MD -[facility] Start: 03-04-2025 End: 03-04-2025 ambulatory Yarelis Fitzpatrick Facility:[facility] Start: 02-07-2025 ambulatory Yarelis Fitzpatrick Facilit y:[facility] Start: 01-30-2025 End: 01-30-[address] Yarelis Fitzpatrick DO Work Phone: [facility] Work Phone: Start: 01-30-2025 End: 01-30-[address] Rajat Tarango MD -Laboratory Specimen Work Phone: Start: 01-30-2025 End: 01-30-2025 ambulatory Yarelis Fitzpatrick Facility:[facility] Start: 01-11-2025 End: 01-11-[address] Yarelis Fitzpatrick DO Work Phone: [facility] Work Phone: Start: 01-11-2025 End: 01-11-2025 Patient encounter procedure NAREN Del Real -Laboratory Work Phone: Start: 01-11-2025 End: 01-11-2025 ambulatory Yarelis Fitzpatrick Facility:[facility] Start: 12-21-2024 End: 12-21-[address] Yarelis Fitzpatrick DO Work Phone: [facility] Work Phone: Start: 12-21-2024 End: 12-21-[address] Yarelis Fitzpatrick DO Work Phone: -Laboratory Work Phone: Start: 12-21-2024 End: 12-21-2024 ambulatory Yarelis Fitzpatrick Facility:[facility] Start: 12-09-2024 End: 12-09-2024 ambulatory [facility] Start: 12-08-2024 End: 12-08-2024 Emergency department patient visit Dr. Yarelis Fitzpatrick DO Work Phone: -Emergency Department Work Phone: Start: 11-25-2024 End: 11-25-[address] Yarelis Fitzpatrick DO Work Phone: [facility] Work Phone: Start: 11-25-2024 End: 11-25-[address] Yordan Vanegas DO -Laboratory, Specimen Work Phone: Start: 11-25-2024 End: 11-25-2024 ambulatory Yarelis Fitzpatrick Facility:[facility] Start: 11-06-2024 End: 11-06-2024 Emergency department patient visit Dr. Yarelis Fitzpatrick DO Work Phone: -Emergency Department Work Phone: Start: 11-01-2024 End: 11-01-2024 Patient encounter procedure NAREN Del Real -[facility] Work Phone: Start: 11-01-2024 End: 11-01-2024 ambulatory Yarelis Fitzpatrick Facility:[facility] Start: 10-15-2024 End: 10-15-[address] Yarelis Fitzpatrick DO Work Phone: [facility] Work Phone: Start: 10-15-2024 End: 10-15-2024 [facility] Start: 10-15-2024 End: 10-15-2024 ambulatory Patience Del Real Facility:[facility] Start: 09-27-2024 End: 09-27-2024 Patient encounter procedure NAREN Del Real -Laboratory Work Phone: Start: 09-27-2024 End: 09-27-2024 ambulatory Patience Del Real Facility:[facility] Start: 09-04-2024 End: 09-04-[address] Yarelis Fitzpatrick DO -Laboratory, [place] Start: 09-04-2024 End: 09-04-2024 ambulatory Yarelis Fitzpatrick Facility:[facility] Start: 09-03-2024 End: 09-03-2024 Patient encounter procedure EXTRUDER Patience Del Real -[facility] Start: 09-03-2024 End: 09-03-2024 ambulatory Patience Del Real Facility:[facility] Start: 08-30-2024 End: 08-30-2024 Patient encounter procedure NAREN Del Real -[facility] Work Phone: Start: 08-30-2024 End: 08-30-2024 ambulatory Alis Mcclain RN NURSE FINISHED STOCK INSPECTOR Comment on above: Information Start: 08-28-2024 End: 08-28-2024 Patient encounter procedure Kimberly Jacobson EXTRUDER-C -Cat Scan, [facility] Work Phone: Start: 08-27-2024 End: 08-27-[address] Balta Whipple MD -[facility] Start: 08-27-2024 End: 08-28-2024 ambulatory Yarelis Fitzpatrick Facility:[facility] Start: 08-27-2024 End: 08-27-2024 ambulatory Yarelis Fitzpatrick Facility:[facility] Start: 2024 End: 2024 Subsequent hospital visit by physician Dylon Vazquez MD Work Phone: [facility] Comment on above: Common variable immu nodeficiency; Low serum IgG for age; Recurrent infections Start: 2024 End: [address] [facility] Start: 12-18-2023 End: 12-18-[address] [facility] Start: 08-17-2023 End: 08-17-[address] Yarelis Fitzpatrick Work Phone: [facility] Work Phone: Start: 08-17-2023 End: 08-17-[address] [facility] Work Phone: Start: 08-15-2023 End: 08-15-[address] [facility] Work Phone: Start: 07-17-2023 Non-patient / Non-visit Dr. Shannon Fitzpatrick Work Phone: [facility] Start: 07-14-2023 End: 07-14-[address] Yarelis Fitzpatrick Work Phone: [facility] Work Phone: Start: 07-14-2023 End: 07-14-[address] Yarelis Fitzpatrick Work [facility]: [facility] Work Phone: Start: 02-13-2023 End: 02-13-2023 Subsequent hospital visit by physician Dylon Vazquez MD Work Phone: [facility] Comment on above: Recurrent infections ; Low serum IgG for age Start: 01-24-2023 End: 01-24-[address] Yarelis Fitzpatrick Work Phone: [facility] Work Phone: Start: 01-24-2023 End: 01-24-[address] Yarelis Fitzpatrick Work Phone: [facility]-Laboratory, Specimen Start: 01-24-2023 End: 01-24-[address] Yarelis Fitzpatrick Work [facility]: [facility] Start: 01-05-2023 End: 01-11-2023 Office outpatient visit 15 minutes Yarelis Amari DO Work Phone: [facility] Start: 01-04-2023 End: 01-04-2023 Phone Encounter Yarelis Amari DO Work Phone: [facility] Start: 01-02-2023 End: 01-02-[address] Yarelis Fitzpatrick Work Phone: [facility] Start: 12-30-2022 ambulatory Yarelis Amari DO [facility] Start: 12-30-2022 End: 12-30-2022 Office outpatient visit 15 minutes Yarelis Amari DO Work Phone: [facility] Start: 12-21-2022 End: 12-21-2022 Phone Encounter Yarelis Amari DO Work Phone: [facility] Start: 12-16-2022 End: 12-16-[address] Yarelis Fitzpatrick Work Phone: [facility] Radiology Start: 12-16-2022 End: 12-18-2022 Office outpatient visit 25 minutes Yarelis Amari DO Work Phone: [facility] Start: 12-05-2022 End: 12-05-2022 Office outpatient visit 10 minutes Yarelis Amari DO Work Phone: [facility] Start: 11-08-2022 End: 11-08-2022 Phone Encounter Yarelis Amari DO Work Phone: [facility] Start: 11-06-2022 End: 11-07-2022 Emergency department patient visit [facility]-Emergency Department Start: 11-06-2022 End: 11-06-2022 Patient encounter procedure Abrahan Peterson APRN.CNP Work Phone: [facility] Comment on above: Sinobronchitis (Prim juliana Dx); Bacterial conjunctivitis; History of asthma Start: 10-14-2022 End: 10-14-2022 Office outpatient visit 10 minutes Yarelis Amari DO Work Phone: [facility] Start: 10-07-2022 Review Yarelismichela Saezo n DO Work Phone: [facility] [...] Internal Medicine Start: 04-26-2022 End: 04-26-2022 ambulatory [facility] Work Phone: Start: 04-26-2022 End: 04-26-2022 Patient encounter procedure [facility]-Radiology, [facility] Start: 04-26-2022 End: 05-03-2022 Office outpatient visit 15 minutes Yarelis Amari DO Work Phone: [facility] Start: 04-08-2022 End: 04-08-2022 ambulatory [facility] Work Phone: Start: 04-08-2022 End: 04-08-2022 Patient encounter procedure [facility]-Outpatient Breast Imaging Start: 02-22-2022 End: 02-22-2022 Office outpatient visit 10 minutes Yarelis Amari DO Work Phone: [facility] Start: 01-23-2022 End: 01-23-2022 Patient encounter procedure Abrahan Peterson APRN.ENGRAVER MACHINE Work Phone: [facility] Comment on above: Lower resp. tract in fection (Primary Dx); Conjunctivitis of both eyes, unspecified conjunctivitis type Start: 10-15-2021 End: 10-15-2021 Office outpatient visit 15 minutes Yarelis Amari DO Work Phone: [facility] Start: 08-11-2021 End: 08-11-2021 Subsequent hospital visit by physician Xr [facility] Work Phone: Radiology Comment on above: [...] 03-04-2020 End: 03-04-2020 Annotation/Addendum Yarelis Amari [facility] al Medicine Start: 02-28-2020 End: 02-28-2020 Annotation/Addendum Yarelis Amari [facility] Start: 01-10-2020 End: 01-10-2020 Office outpatient visit 15 minutes Yarelis Amari [facility] Start: 01-07-2020 End: 01-07-2020 Annotation/Addendum Yarelis Amari [facility] Start: 12-30-2019 End: 12-30-2019 Office outpatient visit 15 minutes Yarelis Amari [facility] Start: 12-24-2019 End: 12-24-2019 Office outpatient visit 15 minutes Yarelis Amari [facility] Start: 12-23-2019 End: 12-23-2019 Annotation/Addendum Yarelis Fitzpatrick [facility] Metallurgical [facility] Teacher al Medicine Start: 12-18-2019 End: 12-24-2019 Office outpatient visit 40 minutes Yarelis Morrison Internal Medicine Start: 12-16-2019 End: 12-16-2019 Annotation/Addendum Yarelis Fitzpatrick [facility] Teacher al Medicine Start: 12-16-2019 End: 12-16-2019 Office [...] 12-01-2009 Office outpatient visit 25 minutes Yarelis Fitzpatrick [facility] Internal Medicine Start: 10-02-2009 End: 10-02-2009 Patient [...] 11-30-2007 End: 11-30-2007 Patient encounter procedure Yarelis Fitzpatrick [facility] Start: 11-20-2007 End: 11-20-2007 Historical Summary Yarelis Morrison [employer] Teacher al Medicine Start: 11-19-2007 End: 11-19-2007 Patient encounter procedure Yarelis Fitzpatrick [facility] Internal Medicine Procedures Date Procedure Procedure Detail Performing Clinician Start: 03-04-2025 Positron emission tomography with computed tomography Dr. Yarelis Fitzpatrick DO Work Phone: Start: 01-30-[address] Yarelis Fitzpatrick DO Work Phone: Start: 01-30-[address] Dajuan Fitzpatrick DO Work Phone: Start: 01-11-2025 Gram [...] Dajuan Fitzpatrick DO Work Phone: Start: 09-04-2024 Pugjk-3-Kjlgwvgunya measurement Dr. Briseida Fitzpatrick DO Work Phone: Comment on above: [facility] Electrochemiluminescen ce Immunoassay(ECLIA)Values obtained with different assay methods or kits cannotbe used interchangeably. Results cannot be interpreted asabsolute evidence of the presence or absence of malignantdisease.This test is not interpretable in females.Performed at: [place] [id number] Director: Ramsey Oleary PhD, Phone: [phone] Start: 09-04-[address] Bubba [...] Visit Report Procedure Note: See Note; NOTES: [facility] [address] [place] [address] OFFICE VISIT Date of Service: 01/24/23 MR#: [id number] Acct: [id number] Name: OFE GIMENEZ Rep #: [id number] : 1975 Provider: Dr. Rakesh Meeks DO Age/Sex: 47/F Location: [facility] Status: Signed Assessment and Plan Assessment and Plan (1) Bronchiectasis: Status: Acute Plan: The patient presented today for the evaluation of a CT chest which demonstrated bilateral bronchiectasis and apical scarring. The patient has a history of frequent hospitalizations for pneumonia. Her PCP recently referred her to a local rail operator as she was noted to have an [...] after she has been evaluated by the head up operator helper. The patient may require a prolonged antibiotic [...] referred to Dr. Vazquez of immunology in [place]. She is currently scheduled to see the [...] air Intake Visit Reasons: Abnormal CT scan Principal Technical Specialist Required: No DME Vendor: n/a Accompanied [...] WITH Contrast Procedure Note: See Note; NOTES: [facility] Imaging Services [address] [place] [address] Chest WITH Contrast MR#: [id number] Acct: [id number] Name: OFE GIMENEZ Rep #: [id number] : 1975 F 47 From: Ugo Oakes MD PCP: Dr. Yarelis Fitzpatrick, DO Status: REG CLI Study: Chest WITH Contrast Date of Exam: 01/02/23 Exam# [id number] Ordering Dr: Heydi Meier DO INDICATION: Cough. [...] THYROID: No thyroid lesions within the study fzldx-sy-mrwu. HEART AND PERICARDIUM: Heart size is normal. [...] Heydi Meier DO; Dr. Yarelis Fitzpatrick DO City Controller: Signed Heydi Meier DO Work Phone: Start: 01-02-2023 CT of thorax with contrast Dr. Yarelis Fitzpatrick Work Phone: Start: 12-16-2022 End: 12-17-2022 Chest PA and Lateral Procedure Note: See Note; NOTES: [facility] Radiology [address] [place] [address] Chest PA and Lateral MR#: [id number] Acct: [id number] Name: OFE GIMENEZ Rep #: [id number] : 1975 F 47 From: Yissel Caldwell MD PCP: Dr. Yarelis Fitzpatrick, DO Status: DEP AMB Study: Chest PA and Lateral Date of Exam: 12/16/22 Exam# [id number] Ordering Dr: Heydi Meier DO We are [...] Heydi Meier DO; Dr. Yarelis Fitzpatrick DO City Controller: Signed Heydi Meier DO Work Phone: Start: 12-16-2022 Plain chest X-ray Dr. Yarelis Fitzpatrick Work Phone: Start: 11-06-2022 End: 11-07-2022 Abdomen/Pelvis without Cont Procedure Note: See Note; NOTES: [facility] Imaging Services [address] [place] [address] Abdomen/Pelvis without Cont MR#: [id number] Acct: [id number] Name: OFE GIMENEZ Rep #: [id number] : 1975 F 47 From: Rao pinedo MD PCP: Dr. Yarelis Fitzpatrick DO Status: REG ER Study: Abdomen/Pelvis without Cont Date of Exam: 10/19 05/13 Exam# [id number] Ordering Dr: Adelfo Solis DO EXAM: CT [...] reconstruction technique. This report was created using [employer] report generation technology. RADIATION DOSE: Total DLP: [...] Adelfo Solis DO; Dr. Yarelis Fitzpatrick DO City Controller: Signed Yarelis Fitzpatrick DO Work Phone: Start: 11-06-2022 CT of abdomen and pelvis without contrast Start: 11-06-2022 End: 11-07-2022 Emergency Department Summary Procedure Note: See Note; NOTES: [facility] Medical Records Department [address] [place] [address] Emergency Department Summary 11/06/22 MR#: [id number] Acct: [id number] Name: OFE GIMENEZ Rep #: [id number] : 1975 47 From: Adelfo Solis DO PCP: Dr. Yarelis Fitzpatrick, DO Status:REG ER Location: ED HPI HPI [...] % (Auto) 66.8 Lymph % (Auto) 25.4 [place] % (Auto) 6.8 Eos % (Auto) 0.0 [...] Color Urine Clarity Urine pH Ur Specific [place] Urine Protein Urine Glucose (UA) Urine Ketones Urine Occult Blood Urine Nitrite Urine Bilirubin Urine Urobilinogen Ur Leukocyte Esterase Urine RBC Urine WBC Ur Squamous Epith Cells Amorphous Sediment Urine Bacteria Urine Mucus 11/06/22 22:27 WBC RBC Hgb Hct MCV MCH MCHC RDW Std Deviation RDW Coeff of Mendy Plt Count MPV Immature Gran % (Auto) Neut % (Auto) Lymph % (Auto) [place] % (Auto) Eos % (Auto) Baso % (Auto) Absolute Neuts (auto) Absolute Lymphs (auto) Nucleated RBC % Sodium Potassium Chloride Carbon Dioxide Anion Gap BUN Creatinine Estim Creat Clear Calc Est GFR (MDRD) Af Amer Est GFR (MDRD) Non-Af BUN/Creatinine Ratio Glucose Calcium Serum , Qual Urine Color Yellow Urine Clarity Sl. Cloudy Urine pH 6.5 Ur Specific [place] 1.020 Urine Protein 30 H Urine Glucose [...] problems, contact your Primary Care Provider. Call [employer] [facility] ([phone]) or report to the closest Emergency Room. Call 911 if necessary. 11/07/22 0041 <Electronically signed by Adelfo Solis DO> Cosigner Signature (if applicable): CC: Dr. Yarelis Fitzpatrick, DO Signed Yarelis Fitzpatrick DO Work Phone: Start: 04-26-2022 End: 04-28-2022 Chest PA and Lateral Procedure Note: See Note; NOTES: [facility] Imaging Services [address] [place] [address] Chest PA and Lateral MR#: [id number] Acct: [id number] Name: OFE GIMENEZ Rep #: [id number] : 1975 F 46 From: Mónica Werner MD PCP: Dr. Yarelis Fitzpatrick, Status: REG CLI Study: Chest PA and Lateral Date of Exam: 04/26/22 Exam# [id number] Ordering Dr: Kimberly Jacobson STUDY: X-RAY CHEST [...] 4:43 EDT Reading Location ID and State: [facility] / [place] , Service support , CC: EXTRUDER-Sly Jacobson; Dr. Yarelis Fitzpatrick DO City Controller: Signed Yarelis Fitzpatrick DO Work Phone: Start: 04-26-2022 Plain chest X-ray Start: 04-08-2022 Screening mammography Start: 04-08-2022 End: 04-08-2022 SCRN MAMM (CAD)W/PIERCE BILAT Procedure Note: See Note; NOTES: [facility] Imaging Services [address] [place] [address] SCRN MAMM (CAD)W/PIERCE BILAT MR#: [id number] Acct: [id number] Name: OFE GIMENEZ Rep #: [id number] : 1975 F 46 From: Luis doherty MD PCP: Dr. Yarelis Fitzpatrick DO Status: REG CLI Study: SCRN MAMM (CAD)W/PIERCE BILAT Date of Exam: 03/21 05/12 Exam# [id number] Ordering Dr: Redd Boss MD MAMMOGRAPHY - [...] delay biopsy of a clinically suspicious abnormality. [id number] Electronically Signed: Luis Rossi MD at 9:29 EDT , CC: Dr. Redd Boss MD; Dr. Yarelis Fitzpatrick DO City Controller: Signed Yarelis Fitzpatrick DO Work Phone: Start: 08-11-2021 Radiologic exam chest 2 views Len Marinelli APRN.ENGRAVER MACHINE Work Phone: Start: 04-01-2021 End: 04-01-2021 Breast Limited Unilateral Comments: See Note; NOTES: [facility] Imaging Services [address] [place] [address] Breast Limited Unilateral MR#: [id number] Acct: [id number] Name: OFE GIMENEZ Rep #: [id number] : 1975 F 45 From: Luis doherty MD PCP: Dr. Yarelis Fitzpatrick DO Status: REG CLI Study: Breast Limited Unilateral Date of Exam: Exam# [id number] Ordering Dr: Redd Boss MD STUDY: ULTRASOUND [...] Redd Boss MD; Dr. Yarelis Fitzpatrick DO City Controller: Signed Yarelis Fitzpatrick DO Work Phone: Start: 03-30-2021 End: 03-31-2021 SCRN MAMM (CAD)W/PIERCE BILAT Comments: See Note; NOTES: [facility] Imaging Services [address] [place] [address] SCRN MAMM (CAD)W/PIERCE BILAT MR#: [id number] Acct: [id number] Name: OFE GIMENEZ Rep #: [id number] : 1975 F 45 From: Luis doherty MD PCP: Dr. Yarelis Fitzpatrick, Status: PRE CLI Study: SCRN MAMM (CAD)W/PIERCE BILAT Date of Exam: 03/21 Exam# [id number] Ordering Dr: Redd Boss MD MAMMOGRAPHY - [...] other significant abnormalities are identified. BI/SCRN MAMM (CAD)W/PIECRE BILAT IMPRESSION: 2.5 cm x 2.9 cm [...] delay biopsy of a clinically suspicious abnormality. [id number] Electronically Signed: Luis Rossi MD at 8:20 EDT , Service support , CC: Dr. Redd Boss MD; Dr. Yarelis Fitzpatrick DO City Controller: Signed Yarelis Fitzpatrick DO Work Phone: Start: 09-12-2020 End: 09-12-2020 Discharge Instruction Comments: See Note; NOTES: [facility] Medical Records Department [address] [place] [address] Discharge Instruction 09/12/20 MR#: [id number] Acct: [id number] Name: OFE GIMENEZ Rep #: [id number] : 1975 45 From: Isac Middelton MD PCP: Dr. Yarelis Fitzpatrick DO Status:[facility] ER ED Disposition - Plan for ED [...] problems, contact your Primary Care Provider. Call [employer] [facility] ([phone]) or report to the closest Emergency Room. Call 911 if necessary. 09/12/20 1704 <Electronically signed by Isac Middleton MD> Date Isac Middleton MD Cosigner Signature (If Indicated): Date CC: DO Yarelis Amor Start: 09-12-2020 End: 09-12-2020 Emergency Department Summary Comments: See Note; NOTES: [facility] Medical Records Department [address] [place] [address] Emergency Department Summary 09/12/20 MR#: [id number] Acct: [id number] Name: OFE GIMENEZ Rep #: [id number] : 1975 45 From: Isac Middleton MD PCP: Dr. Yarelis Amari, DO Status:DEP ER - ER Visit Summary [...] pneumonia Leukocytosis This note was generated with [employer] software. It may contain incorrect words, spelling, [...] problems, contact your Primary Care Provider. Call [employer] [facility] ([phone]) or report to the closest Emergency Room. Call 911 if necessary. 09/12/20 1704 <Electronically signed by Isac Middleton MD> Date Isca Middleton MD Cosigner Signature (If Indicated): Date CC: DO Yarelis Amor Start: 09-12-2020 End: 09-12-2020 Chest 1 View (Portable) Comments: See Note; NOTES: [facility] Imaging Services [address] [place] [address] Chest 1 View (Portable) MR#: [id number] Acct: [id number] Name: OFE GIMENEZ Rep #: [id number] : 1975 F 45 From: David Loyola DO PCP: Dr. Yarelis Fitzpatrick DO Status: PRE ER Study: Chest 1 View (Portable) Date of Exam: 09/12/20 Exam# [id number] Ordering Dr: Isac Middleton MD STUDY: X-RAY [...] David Loyola DO at 11:24 EST Tel [phone], Service support , CC: Dr. Isac Middleton MD; Dr. Yarelis Fitzpatrick DO City Controller: Signed Yarelis Fitzpatrick Start: 12-23-2019 End: 12-23-2019 Chest WITH Contrast Comments: See Note; NOTES: [facility] Imaging Services [address] [place] [address] Chest WITH Contrast MR#: [id number] Acct: [id number] Name: OFE GIMENEZ Rep #: [id number] : 1975 F 44 From: Luis doherty MD PCP: Yarelis Fitzpatrick DO Status: REG CLI Study: Chest WITH Contrast Date of Exam: 12/23/19 Exam# [id number] Ordering Dr: Katia Desai STUDY: CT CHEST WITH CONTRAST REASON FOR [...] , CC: DARRYN Desai; Yarelis Fitzpatrick DO City Controller: Signed Katia Desai Work Phone: H/O: section Section As scottdavon Cristhian CYTOMETRY TECHNOLOGIST Comment on above: H/O: section Section Mo eliazarmonika Lino CYTOMETRY TECHNOLOGIST Comment on above: H/O: section Section Eriberto Sorensen ANALYSIS ENGINEER Comment on above: H/O: section Section Fermin Calderon MA Comment on above: H/O: section Section Mo anna Huynh CYTOMETRY TECHNOLOGIST Comment on above: H/O: section Section Ka bijan Escobar ANALYSIS ENGINEER Comment on above: H/O: section Section Ch natividad Lemon ANALYSIS ENGINEER Comment on above: H/O: section Section Ch natividad Lemon ANALYSIS ENGINEER Comment on above: H/O: section Section An martina Michelle CYTOMETRY TECHNOLOGIST Comment on above: H/O: section Section Ch natividad Lemon [facility] Comment on above: H/O: section Section Radha Matute MA Comment on above: Investigation of tra nsfusion reaction Dr. Yarelis Fitzpatrick Work Phone: Respiratory microbial culture Dr. Yarelis Fitzpatrick Work Phone: Plan of Treatment Date Care Activity Detail Author Start: 01-30-2025 Respiratory microbial culture Respiratory Culture [facility] Start: 01-11-2025 Respiratory microbial culture Respiratory Culture [facility] Start: 12-09-2024 End: 12-09-2024 Patient encounter procedure 12/09/2024 10:40 AM EDT Office Visit [facility] [address] [place] [address] [place] [address] 6 month follow up [facility] Comment on above: 6 month follow up Start: 12-09-2024 Measurement of respiratory function [facility] Start: 12-08-2024 [facility] Start: 11-06-2024 End: 11-06-2024 [facility] Start: 11-06-2024 Streptococcus pneumoniae antigen assay [facility] Start: 11-06-2024 [facility] Start: 11-06-2024 Bacteria identified in Blood by Culture Blood Culture [facility] Start: 11-06-2024 Legionella Antigen Legionella Antigen [facility] Start: 11-06-2024 Microscopic observation [Identifier] in Unspecified specimen by Gram stain [facility] Start: 11-06-2024 Respiratory Culture Respiratory Culture [facility] Start: 11-06-2024 Streptococcus pneumoniae Antigen (M Streptococcus pneumoniae Antigen (M [facility] Start: 11-01-2024 Patient referral [facility] Work Phone: Start: 04-21-2024 Covid-19 Vaccine ( season) Covid-19 Vaccine ( season) [facility] Start: 04-21-2024 FLU (#1) FLU (#1) [facility] Start: 04-21-2024 Influenza vaccination Influenza Vaccine (#1) [facility] Start: 2023 Pneumococcal Vaccine: 50+ (2 of 2 - PCV) Pneumococcal Vaccine: 50+ (2 of 2 - PCV) [facility] Start: 2023 Shingrix Vaccine (1 of 2) Shingrix Vaccine (1 of 2) [facility] Start: 04-21-2023 FLU (Season Ended) FLU (Season Ended) [facility] Start: 01-05-2023 Procedure Education Eprescribed prescriptions [...] antb titer ea antibody P-ANCA & C-ANCA (03163) [facility]; [facility] Work Phone: Start: 12-16-2022 Blood count complete auto&auto difrntl wbc CBC W/AUTO DIFF WBC (18692) [facility]; [facility] Work Phone: Start: 12-16-2022 Comprehensive metabolic panel METABOLIC PANEL, COMPREHENSIVE (99416) [facility]; [facility] Work Phone: Start: 12-16-2022 Protein total xcpt refractometry urine UPEP (54433) [facility]; [facility] Work Phone: Start: 12-16-2022 Protein electrophoretic fractj&quantj serum SPEP (39931) [facility]; [facility] Work Phone: Start: 12-16-2022 Assay of gammaglobulin ige Immunoglobulins, Quantitative, IgA,IgE, IgG, IgM (82293) [facility]; [facility] Work Phone: Start: 12-16-2022 Lactate dehydrogenase ldh LDH (LD) (LACTATE DEHYDROGENASE) (70291) [facility]; [facility] Work Phone: Start: 12-16-2022 Blood count reticulocyte automated RETICULOCYTE COUNT (34505) [facility]; [facility] Work Phone: Start: 12-16-2022 Iron binding capacity Iron Binding Capacity (TIBC) (65188) [facility]; [facility] Work Phone: Start: 12-16-2022 Assay of ferritin Ferritin (36507) [facility]; [facility] Work Phone: Start: 12-16-2022 Assay of iron Iron (24189) [facility]; [facility] Work Phone: Start: 12-16-2022 Cyanocobalamin vitamin b-12 Vitamin B-12 (cyanocobalamin) (67312) [facility]; [facility] Work Phone: Start: 12-05-2022 Assay of gammaglobulin ige Immunoglobulins Iga/Ige/Igg/Igm (GAME) (76898) [facility]; [facility] Work Phone: Start: 11-07-2022 Patient discharge [facility] Start: 10-14-2022 Procedure Education Eprescribed prescriptions (G8553) [...] Phone: Start: 08-21-2022 DEPRESSION ASSESSMENT DEPRESSION ASSESSMENT [facility] Start: 2022 Procedure Education Eprescribed prescriptions (G8553) [facility]; [facility] Work Phone: Start: 04-26-2022 Procedure Education Eprescribed prescriptions (G8553) [facility]; [facility] Work Phone: Start: 04-21-2022 Influenza vaccination [facility] Start: 02-22-2022 Procedure Education Eprescribed prescriptions [...] Iaadiadoo influenza 2019 Novel Coronavirus (COVID-19), MICHELLE (83928) [facility]; [facility] Work [...] gammaglobulin iga igd igg igm each IGA/IGD/IGG/IGM-EACH (29547) [facility] Work Phone: Comment on above: send all labs to Dr. villeda and emelina Start: 12-30-2019 Fluorescent nonnfct agt antb screen ea antibody FLURESCNT ANTIB SCRN EA (39730) celiac profile [facility] Work Phone: Start: 12-30-2019 Immunoassay analyte qual/semiqual multiple step IMMUNOASSAY, ANALYTE (NON-INFECT) (59239) celiac profile [facility] Work Phone: Start: 12-24-2019 Assay of iron Iron (46846) [facility]; [facility] Work Phone: Start: 12-24-2019 Iron [Mass/Vol] Iron (95622) [facility] Work Phone: Start: 12-24-2019 Tb cell mediated antign respnse gamma interferon QuantiFERON-TB Gold Plus (QFT-Plus) (79287) [facility] Work Phone: Start: 12-16-2019 SARS-CoV-2 Antibody, IgG SARS-CoV-2 Antibody, IgG [facility] Work Phone: Start: 12-16-2019 Procedure Education Eprescribed prescriptions (G8553) [facility] Work Phone: Start: 12-11-2019 Procedure Education Eprescribed prescriptions (G8553) [facility] Work Phone: Start: 12-11-2019 Provider Instructions for Treatment [facility] Work Phone: Start: 2018 COLOGUARD (FIT-DNA) COLOGUARD (FIT-DNA) [facility] Start: 2018 Colonoscopy COLONOSCOPY [facility] Start: 2018 COLORECTAL CANCER SCREENING COLORECTAL CANCER SCREENING [facility] Start: [address] COLONOGRAPHY [facility] Start: 2018 DIABETES SCREEN DIABETES SCREEN [facility] Start: 2018 Diabetes Screening Diabetes Screening [facility] Start: 2018 FECAL OCCULT BLOOD FECAL OCCULT BLOOD [facility] Start: 2018 Lipid panel Lipid Screening [facility] Start: 2018 LIPID SCREEN LIPID SCREEN [facility] Start: 2018 Screening for malignant neoplasm of colon [facility] [facility] Start: 2018 SIGMOIDOSCOPY SIGMOIDOSCOPY [facility] Start: 2013 Mammography MAMMOGRAM [facility] Start: 2013 Screening for malignant neoplasm of breast Mammogram Screening [facility] Start: 02-04-2013 Provider Instructions for Treatment [facility] Work Phone: Start: 06-01-2010 Provider Instructions for Treatment [facility] Work Phone: Start: 06-01-2010 Cul bact xcpt urine blood/stool aerobic isol CULTURE, SPUTUM (13315) [facility] Work Phone: Start: 04-30-2010 [...] Start: 11-19-2007 Glucose [Mass/Vol] Glucose, PP/2 Hour (93996) [facility] Work Phone: Start: 11-19-2007 Glucose quantitative blood xcpt reagent strip Glucose, PP/2 Hour (56397) [facility]; [facility] Work Phone: Start: 11-19-2007 Lipid panel LIPID PANEL (95760) [facility] Work Phone: Start: 2003 HPV TESTING HPV TESTING [facility] Start: 1994 Microscopic observation [Identifier] in Cervix by Cyto stain Pap Smear [facility] Start: 1994 PAP TESTING PAP TESTING [facility] Start: 1994 Screening for malignant neoplasm of cervix Cervical Cancer Screening [facility] Start: 1992 Hepatitis B (1 of 3 - 19+ 3-dose series) Hepatitis B (1 of 3 - 19+ 3-dose series) [facility] Start: 1992 Hepatitis B Vaccine (1 of 3 - 19+ 3-dose series) Hepatitis B Vaccine (1 of 3 - 19+ 3-dose series) [facility] Start: 1992 Urine microalbumin profile [facility] Start: 1991 Anxiety Screening Anxiety Screening [facility] Start: 1991 Depression Screening Depression Screening [facility] Start: 1991 HEPATITIS C SCREENING HEPATITIS C SCREENING [facility] Start: 1991 Hepatitis C screening Hepatitis C Screening [facility] Start: 1991 HIV SCREENING HIV SCREENING [facility] Start: 1991 HIV screening HIV Screening [facility] Start: 1989 MenB (1 of 2 - MenB 2-Dose Series Bexsero) MenB (1 of 2 - MenB 2-Dose Series Bexsero) [facility] Start: 1986 Varicella (1 of 2 - 13+ 2-dose series) Varicella (1 of 2 - 13+ 2-dose series) [facility] Start: 1985 Adult depression screening assessment DEPRESSION SCREENING [facility] Start: 1980 Tetanus Diphtheria and Pertussis Vaccines (1 - Tdap) Tetanus Diphtheria and Pertussis Vaccines (1 - Tdap) [facility] Start: 1978 COVID-19 (#1) COVID-19 (#1) [facility] Start: 1978 COVID-19 VACCINE (#1) COVID-19 VACCINE (#1) [facility] Start: 1974 MMR (1 of 1 - Standard series) MMR (1 of 1 - Standard series) [facility] Start: 1974 Varicella (1 of 2 - 2-dose childhood series) Varicella (1 of 2 - 2-dose childhood series) [facility] Start: 1973 COVID-19 (#1) COVID-19 (#1) [facility] Start: 1973 COVID-19 VACCINE (#1) COVID-19 VACCINE (#1) [facility] Start: 1973 HEPATITIS B (1 of 3 - 3-dose series) HEPATITIS B (1 of 3 - 3-dose series) [facility] Bacteria identified in Sputum by Culture [facility] Bacteria identified in Sputum by Respiratory culture [facility] CT Chest WO contrast [facility] Legionella pneumophi la Ag [Presence] in Urine [facility] Lymphocyte Profile Lymphocyte Pr ofile Lab Routine Recurrent infections Low serum IgG for age 0602/13/2023 4:37 PM EDT [facility] Work Phone: Lymphocyte Proliferation, Mitogens Lymphocyte Proliferation, Mitogens Lab Routine Recurrent infections Low serum IgG for age 0602/13/2023 4:[address] [facility] Measurement of respiratory function [facility] Measurement of respiratory function [facility] Patient Education [facility] Work Phone: Patient referral [facility] Work Phone: S. Pneumo IGG ABS, 2 3 Serotypes S. Pneumo IGG ABS, 23 Serotypes Lab Routine Recurrent infections Low serum IgG for age 0602/13/2023 4:[address] [facility] Tetanus toxoid, IgG Abs Tetanus toxoid, IgG Abs Lab Routine Recurrent infections Low serum IgG for age 0602/13/2023 4:[address] [facility] Work Phone: Comprehensive [...] 23 valent Abrahan Peterson APRN.CNP Work Phone: [facility] Payers Date Payer Category Payer Self-pay [id number] [facility] 2022 Unknown [id number] 2021 Unknown [id number] 2020 Unknown [id number] 2019 Unknown 2019 Unknown [employer] PPO [id number] 2019-Present [phone] [address] [place] [address] PPO [id number] 2008 Unknown [id number] 2006 Unknown [id number] 1973 Unknown [id number] 2.840.1.445459.3.579.2.716 1973 Unknown [id number] 2.840.1.230400.3.579.2.479 1973 Unknown [id number] 2.840.1.749173.3.579.2.479 1973 Unknown [id number] 2.840.1.265479.3.579.2.479 1973 Unknown [id number] 2.840.1.523047.3.579.2.479 Self-pay SELF PAY ER DEPOSIT [id number] Unknown [facility] [id number] Unknown [id number] [id number] Unknown [id number] 2.16840.1.385471.3.579.2.462 Unknown [id number] 2.16840.1.330391.3.579.2.462 Unknown [id number] 2.16.840.1.816374.3.579.2.462 Unknown [id number] 2.16.840.1.390319.3.579.2.462 Unknown [id number] 2.16.840.1.697718.3.579.2.462 Unknown [id number] 2.16.840.1.690507.3.579.2.462 Unknown [id number] 2.16.840.1.821063.3.579.2.462 Unknown [id number] 2.16.840.1.070697.3.579.2.462 Unknown [id number] 2.16.840.1.508635.3.579.2.462 Unknown [id number] 2.16.840.1.713675.3.579.2.462 Unknown [id number] 2.16.840.1.468288.3.579.2.462 Unknown [id number] 2.16.840.1.873782.3.579.2.462 Unknown [id number] 2.16.840.1.666388.3.579.2.462 Unknown [id number] 2.16.840.1.889289.3.579.2.462 Unknown [id number] 2.16.840.1.379116.3.579.2.462 Unknown [id number] 2.16.840.1.801637.3.579.2.462 Social History Date Type Detail Facility Start: 07-25-2020 End: 08-11-2021 Caffeine Use Caffeine Use [facility] [employer]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 Start: 01-23-2022 End: 11-06-2022 Alcohol intake Not Asked [facility] Start: 1975 Sex Assigned At Not on file [facility] Start: 01-13-2022 End: 01-23-2022 Exposure to SARS-CoV-2 (event) Not sure [facility] Work Phone: Start: 09-12-2020 End: 08-15-2023 Tobacco smoking status NHIS Unknown if ever smoked [facility] Start: 1975 Sex Assigned At Female [facility] Start: 11-04-2011 End: 07-07-2023 Tobacco use and exposure Smokeless tobacco non-user [facility] Work Phone: Start: 07-25-2020 End: 08-11-2021 Gender identity Not on file [facility] National Score (1-100), lower number is lower risk Not on file [facility] Start: 10-28-2024 End: 12-08-2024 Sex Female (finding) [facility] NEGATED: Highlighted row [facility] NEGATED: Highlighted rowStart: NINF History of tobacco use Passive smoker [facility] Mental Status Date Assessment Result Facility 12-08-2024 Cognitive function Awake;Alert;A ppropriate;Follow s Commands [facility] Work Phone: 11-06-2024 Cognitive function Level Of Cons ciousness Awake;Alert;Appropriate;Follow s Commands [facility] Work Phone: Clinical Notes 05-14-2021 to 12-08-2024 Note Date & Type Note Facility 12-08-2024 Discharge summary [facility] 12-08-2024 Radiology Diagnostic study note [facility] Imaging Services [address] [place] [address] Chest PA and Lateral MR#: [id number] Acct: [id number] Name: OFE GIMENEZ Rep #: [id number] : 1975 F 49 From: Celena Blake MD PCP: Dr. Yarelis Fitzpatrick, DO Status: CO E ER Study:Chest PA and Lateral Date of Exam: 12/08/24 Exam# [id number] Ordering Dr: Magy Mai MD PROCEDURE: CHEST [...] infiltrate or consolidation is seen. Reading Location: [id number] CC: Dr. Yarelis Fitzpatrick DO; Dr. Mike Mai MD ~ City Controller: Signed [facility] 12-08-2024 Hospital Discharge instructions Additional Instructions 1. Discontinue the azithromycin 2. Start the doxycycline once you fill the prescription 3. Take prednisone until gone 4. 2 puffs of your inhaler every 2-4 hours while awake for the next 3 days. [facility] Work Phone: 11-06-2024 Discharge summary [facility] 11-06-2024 Radiology Diagnostic study note [facility] Imaging Services [address] [place] [id number] CTA Chest W/WO Contrast MR#: [id number] Acct: [id number] Name: OFE GIMENEZ Rep #: [id number] : 1975 F 49 From: Margarette Gross MD PCP: Dr. Yarelis Fitzpatrick DO Status: RE G ER Study:CTA Chest W/WO Contrast Date of Exam: 11/06/24 Exam# [id number] Ordering Dr: Chico Vanegas DO PROCEDURE: CTA [...] lobe, concerning for multifocal pneumonia. [facility] CC: Dr. Yordan Vanegas DO; Dr. Yarelis Fitzpatrick DO ~ City Controller: Signed [facility] 11-06-2024 Discharge summary Note Date/Time November 06, 2024 11:30pm [facility] Medical Records Department [address] [place] [address] Emergency Department Summary 11/06/24 MR#: [id number] Acct: [id number] Name: OFE GIMENEZ Rep #:[id number] : 1975 49 From: Yordan Phillips PCP: [...] follows locally with pulmonology Dr. 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 Vazquez. In September of this [...] home oxygen. She is a lifelong non-smoker. [facility] Medical History (Updated 11/06/24 @ 23:[address] Yordan Vanegas, DO) Immunoglobulin deficiency Mass of upper lobe [...] 77.6 H Lymph % (Auto) 14.8 L [place] % (Auto) 6.4 Eos % (Auto) 0.2 [...] Clarity Clear Urine pH 8.0 Ur Specific [place] 1.010 Urine Protein Negative Urine Glucose (UA) [...] lobe, concerning for multifocal pneumonia. Reading Location: [facility] EKG Initial EKG: Attestation: I personally [...] Culture, Sputum (Routine) Timeframe: 1 Day Facility: [facility] - Location: Laboratory Ordered By: Dr. Yordan Vanegas Primary Care Provider: Yarelis Fitzpatrick Referrals: Yarelis Fitzpatrick DO [Primary Care Provider] - Rajat Velázquez MD [Med Staff - Active Staff] - As soon as possible (for infectious disease) Print Language: Italian Disposition Disposition: Home, Self Care What to do if you have Problems For any increased pain, shortness of breath, bleeding, nausea or vomiting, chestpain, or any unexpected problems, contact your Primary Care Provider. Call [facility] ([phone]) or report to the closest Emergency Room. Call 911 if necessary. 11/06/242316 <Electronically signed by Yordan Vanegas DO> Cosigner Signature (if applicable): CC: Dr. Yarelis Fitzpatrick DO ~ Signed [facility] Work Phone: 1(662) 801-251303-14-2025 Evaluation note* Diagnosis Onset Date Resolution Status Admit Date Bronchiectasis inactive October 10:52am Immunoglobulin deficiency inactive November 01, 2024 10:52am Mass of upper lobe of right lung shawn ctive November 01, 2024 10:52am [facility] Work Phone: 1(131) 444-445702-26-2025 Radiology Diagnostic study note [facility] Imaging Services [address] [place], [place] [id number] Chest WITH Contrast MR#: [id number] Acct: [id number] Name: OFE GIMENEZ Rep #: [id number] : 1975 F 49 From: Juan Rossi MD PCP: Dr. Yarelis Fitzpatrick DO Status: RE G CLI Study:Chest WITH Contrast Date of Exam: 10/15/24 Exam# [id number] Ordering Dr: Sly Jacobson EXTRUDER-C PROCEDURE: CHEST WITH CONTRAST REASON FOR EXAM: [...] use of iterative reconstruction technique). Reading Location: [id number] CC: DARRYN Jacobson; Dr. Yarelis Fitzpatrick, DO ~ City Controller: Signed [facility]01-10-2025 Telephone encounter Note* Telephone Encounter - Alis Mcclain RN - 08/30/2024 1:42 PM EST Patient calling with health information: patient requesting health information about how to be seen, reviewed general nursing knowledge information. Patient verbalized understanding of information provided Patient denies any new or worsening symptoms of which a provider is not aware:Yes [facility]01-10-2025 Miscellaneous Notes* Telephone Encounter - Alis Mcclain RN - 08/30/2024 1:42 PM EST Patient calling with health information: patient requesting health information about how to be seen, reviewed general nursing knowledge information. Patient verbalized understanding of information provided Patient denies any new or worsening symptoms of which a provider is not aware:Yes documented in this encounterCleveland [id number] Evaluation note* Diagnosis Onset Date Resolution Status Admit Date Mass of upper lobe of right lung acute August 30 8:47am Bronchiectasis chronic August 302024 8:47am Immunoglobulin deficiency chronic August 30, 2024 8:47am [facility] Work Phone: 1(315) 982-425801-10-2025 Evaluation note* Diagnosis Onset Date Resolution Status Admit Date Bronchiectasis inactive August 302024 8:47am Immunoglobulin deficiency inactive August 30, 2024 8:47am Mass of upper lobe of right lung inactive August 30 8:47am Bronchiectasis inactive October 10:52am Immunoglobulin deficiency inactive November 01, 2024 10:52am Mass of upper lobe of right lung inactive November 01, 2024 10:52am [facility] Work Phone: 1(218) 265-559211-27-2023 Procedure [facility] 11-07-[address] Solis [facility] November 07, 2022 12:41am Note Date/Time November 06, 2022 11: 09pm [facility] Medical Records Department [address] [place] [address] Emergency Department Summary 11/06/22 MR#: [id number] Acct: [id number] Name: OFE GIMENEZ Rep #:[id number] : 1975 47 From: Adelfo Solis DO PCP: Dr. Yarelis Fitzpatrick DO Status:RE G ER Location: ED HPI [...] % (Auto) 66.8 Lymph % (Auto) 25.4 [place] % (Auto) 6.8 Eos % (Auto) 0.0 [...] Color Urine Clarity Urine pH Ur Specific [place] Urine Protein Urine Glucose (UA) Urine Ketones Urine Occult Blood Urine Nitrite Urine Bilirubin Urine Urobilinogen Ur Leukocyte Esterase Urine RBC Urine WBC Ur Squamous Epith Cells Amorphous Sediment Urine Bacteria Urine Mucus 11/06/22 22:27 WBC RBC Hgb Hct MCV MCH MCHC RDW Std Deviation RDW Coeff of Mendy Plt Count MPV Immature Gran % (Auto) Neut % (Auto) Lymph % (Auto) [place] % (Auto) Eos % (Auto) Baso % (Auto) Absolute Neuts (auto) Absolute Lymphs (auto) Nucleated RBC % Sodium Potassium Chloride Carbon Dioxide Anion Gap BUN Creatinine Estim Creat Clear Calc Est GFR (MDRD) Af Amer Est GFR (MDRD) Non-Af BUN/Creatinine Ratio Glucose Calcium Serum , Qual Urine Color Yellow Urine Clarity Sl. Cloudy Urine pH 6.5 Ur Specific [place] 1.020 Urine Protein 30 H Urine Glucose [...] your Primary Care Provider. Call [facility] ([phone]) or report to the closest Emergency Room. Call 911 if necessary. 11/07/22 0041 <Electronically signed by Adelfo Solis DO> Cosigner Signature (if applicable): CC: Dr. Yarelis Fitzpatrick DO ~ Signed [facility] Work Phone: 1(895) 429-343803-19-2023 History of Present illness Narrative* Abrahan Peterson, REINALDO.ENGRAVER MACHINE - 11/06/2022 10:00 AM EDT Subjective HPI [...] TABLET Abrahan Peterson APRN.CNP documented [facility]22 NoteHNO ID: [id number] Author: Abrahan Peterson APRN.CNP Service: ? Author [...] Agrees to plan Declines avs Abrahan Peterson APRN.[facility]EL[facility] History of Present illness Narrative* Abrahan Peterson APRN.ENGRAVER MACHINE - 01/23/2022 9:03 AM EDT Subjective HPI [...] Agrees to plan Declines avs Abrahan Peterson APRN.ENGRAVER MACHINE documented [facility]2022 NoteHNO ID: [id number] Author: Melva Reyna APRN.ANGEL Service: ? Author [...] have confirmed and edited as necessary, the [facility] Review of Systems Constitutional: Positive for malaise/fatigue. [...] in 24-48 hours with results, available on [employer] - COVID WITH FLUA+B, ROUTINE 4. Acute [...] detail warranting prompt ER evaluation. Melva Reyna APRN.[facility]12-22-2021 NoteHNO ID: [id number] Author: RT Samuel(R) Service: ? Author Type: [...] BY: RT Samuel(R) August 11, 2021 6:58 [facility]12-22-2021 NoteHNO ID: [id number] Author: Len Marinelli APRN.ENGRAVER MACHINE Service: ? Author Type: Nurse Practitioner Type: [...] Patient agreeable to treatment plan. Len Marinelli APRN.[facility]12-22-2021 History of Present illness Narrative* Ruy Torres, RT(R) - 08/11/2021 7:00 PM EST Radiology [...] 11, 2021 6:58 PM documented in [facility]21 NoteHNO ID: [id number] Author: Margarito Alston PA-C Service: ? Author Type: Physician Watch Assembly Inspector Type: Progress Notes Filed: 05/15/2021 9:13 AM [...] have confirmed and edited as necessary, the [facility] Review of Systems Constitutional: Positive for fever [...] testing ordered; Results will be released to [facility] in 24-48 hours Discussed quarantine, social distancing, hand washing/proper hygiene. Rest, fluids, OTC medications discussed -Reviewed red flags (ie chest pain, shortness of breath) with patient and when to seek care sooner. 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. She was prescribed azithromycin. Her fifth [...] Prior similar symptoms: Yes [facility] Medical History Immunoglobulin deficiency Mass of upper [...] % (Auto) 69.1 Lymph % (Auto) 21.5 [place] % (Auto) 7.8 Eos % (Auto) 0.7 [...] infiltrate or consolidation is seen. Reading Location: [facility] Treatment and Re-Evaluation :: Patient was reexamined [...] an appointment with her doctor at [facility] tomorrow, Dr. Vazquez she was instructed to discontinue the azithromycin. Discharge Plan Triage Chief Complaint: Chest Other ED Provider: Mike Mai Dx/Rx/DC Orders Clinical Impression: Pneumonia, Acute bronchospasm, Sinus tachycardia seen on emery grinder, Immune deficiency disorder, Elevated blood-pressure reading without [...] for the next 3 days. Print Language: Italian Disposition Disposition: Home, Self Care What to do if you have Problems For any increased pain, shortness of breath, bleeding, nausea or vomiting, chestpain, or any unexpected problems, contact your Primary Care Provider. Call [facility] ([phone]) or report to the closest Emergency Room. Call 911 if necessary. 12/08/24 0854 <Electronically signed by Mike Mai MD> Cosigner Signature (if applicable): CC: Dr. Yarelis Fitzpatrick DO ~ Signed [facility] Work Phone: Evaluation note* Diagnosis Lower resp. tract infection- Primary Other diseases of respiratory system, not elsewhere classified Conjunctivitis of both eyes, unspecified conjunctivitis type documented in this encounter [facility] noteNo assessment information availableWClermont [facility] Work Phone: Evaluation note* Diagnosis Sinobronchitis- Primary Unspecified sinusitis (chronic) Bacterial conjunctivitis Other conjunctivitis History of asthma Personal history of other diseases of respiratory system documented in this encounter [facility] note* Diagnosis Onset Date Resolution Status Bronchiectasis acute Immunoglobulin deficiency ac [facility] Work Phone: Evaluation note* Diagnosis Recurrent infections Unspecified infectious and parasitic diseases Low serum IgG for age documented in this encounter [facility] note* Diagnosis Onset Date Resolution Status Bronchiectasis chronic Immunoglobulin deficiency [facility] Work Phone: Evaluation note* Diagnosis Cough documented in this encounter [facility] note* Diagnosis Common variable immunodeficiency Low serum IgG for age Recurrent infections Unspecified infectious and parasitic diseases [facility] Name Dates Details How to Access Health Informa tion Online using Patient Portal and [employer] Apps Indication:Nonsmoker Start:22-Jan-2021 Instruction Type:Patient Education [...] Informa tion Online using Patient Portal and [employer] Indication:BMI 21.0-21.9, adult Start:14-Sep-2020 Instruction [...] Internal Medicine; [facility] Work Phone: [facility] Name Dates Details How to Access Health Informa tion Online using Patient Portal and [employer] Indication:Nonsmoker Start:22-Jan-2021 Instruction Type:Patient Education [...] Informa tion Online using Patient Portal and [employer] Indication:Nonsmoker Start:22-Jan-2021 Instruction Type:Patient Education Patient Instructions Indication:Nonsmoker Start:22-Jan-2021 Instruction Type:Provider Instructions for Treatment Patient Instructions Indication:Nonsmoker Start:12-Oct-2020 Instruction Type:Provider Instructions for Treatment How to Access Health Informa tion Online using Patient Portal and [employer] Apps Indication:Nonsmoker Start:12-Oct-2020 Instruction Type:Patient Education Patient Instructions Indication:BMI 21.0-21.9, adult Start:14-Sep-2020 Instruction Type:Provider Instructions for Treatment How to Access Health Informa tion Online using Patient Portal and [employer] Apps Indication:BMI 21.0-21.9, adult Start:14-Sep-2020 Instruction Type:Patient [...] Informa tion Online using Patient Portal and [employer] Indication:Nonsmoker Start:12-Sep-2022 Instruction Type:Patient Education Patient Instructions Indication:BMI 23.0-23.9, adult Start:10-Jun-2022 Instruction Type:Provider Instructions for Treatment How to Access Health Informa tion Online using Patient Portal and [employer] Indication:BMI 23.0-23.9, adult Start:10-Jun-2022 Instruction Type:Patient Education Patient Instructions Indication:Nonsmoker Start:26-Apr-2022 Instruction Type:Provider Instructions for Treatment How to Access Health Informa tion Online using Patient Portal and [employer] Apps Indication:Nonsmoker Start:26-Apr-2022 Instruction Type:Patient Education Patient Instructions Indication:Nonsmoker Start:22-Feb-2022 Instruction Type:Provider Instructions for Treatment How to Access Health Informa tion Online using Patient Portal and [employer] Indication:Nonsmoker Start:22-Feb-2022 Instruction Type:Patient Education [...] Informa tion Online using Patient Portal and [employer] Apps Indication:Abnormal lung sounds Start:14-Oct-2022 Instruction Type:Patient Education Patient Instructions Indication:BMI 23.0-23.9, adult Start:07-Oct-2022 Instruction Type:Provider Instructions for Treatment How to Access Health Informa tion Online using Patient Portal and [employer] Apps Indication:BMI 23.0-23.9, adult Start:07-Oct-2022 Instruction Type:Patient Education Patient Instructions Indication:Nonsmoker Start:12-Sep-2022 Instruction Type:Provider Instructions for Treatment How to Access Health Informa tion Online using Patient Portal and [employer] Apps Indication:Nonsmoker Start:12-Sep-2022 Instruction Type:Patient Education Patient Instructions Indication:BMI 23.0-23.9, adult Start:10-Jun-2022 Instruction Type:Provider Instructions for Treatment How to Access Health Informa tion Online using Patient Portal and [employer] Apps Indication:BMI 23.0-23.9, adult Start:10-Jun-2022 Instruction Type:Patient Education Patient Instructions Indication:Nonsmoker Start:26-Apr-2022 Instruction Type:Provider Instructions for Treatment How to Access Health Informa tion Online using Patient Portal and [employer] Apps Indication:Nonsmoker Start:26-Apr-2022 Instruction Type:Patient Education Patient Instructions Indication:Nonsmoker Start:22-Feb-2022 Instruction Type:Provider Instructions for Treatment How to Access Health Informa tion Online using Patient Portal and [employer] Apps Indication:Nonsmoker Start:22-Feb-2022 Instruction Type:Patient Education Patient [...] Informa tion Online using Patient Portal and [employer] Apps Indication:Abnormal lung sounds Start:14-Oct-2022 Instruction Type:Patient Education Patient Instructions Indication:BMI 23.0-23.9, adult Start:07-Oct-2022 Instruction Type:Provider Instructions for Treatment How to Access Health Informa tion Online using Patient Portal and [employer] Indication:BMI 23.0-23.9, adult Start:07-Oct-2022 Instruction Type:Patient Education Patient Instructions Indication:Nonsmoker Start:12-Sep-2022 Instruction Type:Provider Instructions for Treatment How to Access Health Informa tion Online using Patient Portal and [employer] Apps Indication:Nonsmoker Start:12-Sep-2022 Instruction Type:Patient Education Patient [...] Informa tion Online using Patient Portal and [employer] Apps Indication:Nonsmoker Start:16-Dec-2022 Instruction Type:Patient Education Patient Instructions Indication:Abnormal lung sounds Start:14-Oct-2022 Instruction Type:Provider Instructions for Treatment How to Access Health Informa tion Online using Patient Portal and [employer] Apps Indication:Abnormal lung sounds Start:14-Oct-2022 Instruction Type:Patient Education Patient Instructions Indication:BMI 23.0-23.9, adult Start:07-Oct-2022 Instruction Type:Provider Instructions for Treatment How to Access Health Informa tion Online using Patient Portal and [employer] Apps Indication:BMI 23.0-23.9, adult Start:07-Oct-2022 Instruction Type:Patient Education Patient Instructions Indication:Nonsmoker Start:12-Sep-2022 Instruction Type:Provider Instructions for Treatment How to Access Health Informa tion Online using Patient Portal and [employer] Apps Indication:Nonsmoker Start:12-Sep-2022 Instruction Type:Patient Education Patient [...] Informa tion Online using Patient Portal and [employer] Indication:BMI 23.0-23.9, adult Start:10-Jun-2022 Instruction [...] using Patient Portal and [employer] Apps Indication:Recurrent infections Start:30-Dec-2022 Instruction Type:Patient Education Patient Instructions Indication:Nonsmoker Start:16-Dec-2022 Instruction Type:Provider Instructions for Treatment How to Access Health Informa tion Online using Patient Portal and [employer] Apps Indication:Nonsmoker Start:16-Dec-2022 Instruction Type:Patient Education Patient Instructions Indication:Abnormal lung sounds Start:14-Oct-2022 Instruction Type:Provider Instructions for Treatment How to Access Health Informa tion Online using Patient Portal and [employer] Apps Indication:Abnormal lung sounds Start:14-Oct-2022 Instruction Type:Patient Education Patient Instructions Indication:BMI 23.0-23.9, adult Start:07-Oct-2022 Instruction Type:Provider Instructions for Treatment How to Access Health Informa tion Online using Patient Portal and [employer] Apps Indication:BMI 23.0-23.9, adult Start:07-Oct-2022 Instruction Type:Patient Education Patient Instructions Indication:Nonsmoker Start:12-Sep-2022 Instruction Type:Provider Instructions for Treatment How to Access Health Informa tion Online using Patient Portal and [employer] Apps Indication:Nonsmoker Start:12-Sep-2022 Instruction Type:Patient Education Patient Instructions Indication:BMI 23.0-23.9, adult Start:10-Jun-2022 Instruction Type:Provider Instructions for Treatment How to Access Health Informa tion Online using Patient Portal and [employer] Apps Indication:BMI 23.0-23.9, adult Start:10-Jun-2022 Instruction Type:Patient Education Patient Instructions Indication:Nonsmoker Start:26-Apr-2022 Instruction Type:Provider Instructions for Treatment How to Access Health Informa tion Online using Patient Portal and [employer] Apps Indication:Nonsmoker Start:26-Apr-2022 Instruction Type:Patient Education Patient [...] Informa tion Online using Patient Portal and [employer] Indication:Nonsmoker Start:22-Jan-2021 Instruction Type:Patient Education [...] Informa tion Online using Patient Portal and [employer] Apps Indication:BMI 23.0-23.9, adult Start:05-Jan-2023 Instruction Type:Patient Education Patient Instructions Indication:Recurrent infections Start:30-Dec-2022 Instruction Type:Provider Instructions for Treatment How to Access Health Informa tion Online using Patient Portal and [employer] Apps Indication:Recurrent infections Start:30-Dec-2022 Instruction Type:Patient Education Patient Instructions Indication:Nonsmoker Start:16-Dec-2022 Instruction Type:Provider Instructions for Treatment How to Access Health Informa tion Online using Patient Portal and [employer] Apps Indication:Nonsmoker Start:16-Dec-2022 Instruction Type:Patient Education Patient [...] using Patient Portal and [employer] Indication:Recurrent infections Start:30-Dec-2022 Instruction Type:Patient Education Patient Instructions Indication:Nonsmoker Start:16-Dec-2022 Instruction Type:Provider Instructions for Treatment How to Access Health Informa tion Online using Patient Portal and [employer] Apps Indication:Nonsmoker Start:16-Dec-2022 Instruction Type:Patient Education Patient Instructions Indication:Abnormal lung sounds Start:14-Oct-2022 Instruction Type:Provider Instructions for Treatment How to Access Health Informa tion Online using Patient Portal and [employer] Apps Indication:Abnormal lung sounds Start:14-Oct-2022 Instruction Type:Patient Education Patient Instructions Indication:BMI 23.0-23.9, adult Start:07-Oct-2022 Instruction Type:Provider Instructions for Treatment How to Access Health Informa tion Online using Patient Portal and [employer] Apps Indication:BMI 23.0-23.9, adult Start:07-Oct-2022 Instruction Type:Patient Education Patient Instructions Indication:Nonsmoker Start:12-Sep-2022 Instruction Type:Provider Instructions for Treatment How to Access Health Informa tion Online using Patient Portal and [employer] Apps Indication:Nonsmoker Start:12-Sep-2022 Instruction Type:Patient Education Patient Instructions Indication:BMI 23.0-23.9, adult Start:10-Jun-2022 Instruction Type:Provider Instructions for Treatment How to Access Health Informa tion Online using Patient Portal and [employer] Apps Indication:BMI 23.0-23.9, adult Start:10-Jun-2022 Instruction Type:Patient Education Patient Instructions Indication:Nonsmoker Start:26-Apr-2022 Instruction Type:Provider Instructions for Treatment How to Access Health Informa tion Online using Patient Portal and [employer] Apps Indication:Nonsmoker Start:26-Apr-2022 Instruction Type:Patient Education Patient Instructions Indication:Nonsmoker Start:22-Feb-2022 Instruction Type:Provider Instructions for Treatment How to Access Health Informa tion Online using Patient Portal and [employer] Apps Indication:Nonsmoker Start:22-Feb-2022 Instruction Type:Patient Education Patient Instructions Indication:Nonsmoker Start:15-Oct-2021 Instruction Type:Provider Instructions for Treatment How to Access Health Informa tion Online using Patient Portal and [employer] Apps Indication:Nonsmoker Start:15-Oct-2021 Instruction Type:Patient Education [...] for referral (narrative)No reason for referral information availableWClermont [facility] Work Phone: Family History No Family History [...] Informa tion Online using Patient Portal and [employer] Apps Indication:BMI 21.0-21.9, adult Start:14-Sep-2020 Instruction [...] Will No September 12 11:11am Power of Automotive Buyer No September 12, 2020 11:11am Advance Directive Response Recorded Date/ Time Living Will No November 06, 2022 10:32pm Power of Automotive Buyer No November 06 10:32pm Advance Directive Response Recorded Date/ Time Living Will No March 13, 2023 10:04pm Power of Automotive Buyer No March 13 10:04pm Advance Directive Response Recorded Date/ Time Living Will No November 06, 2024 9:38pm Do you have a Healthcare Power of Automotive Buyer? No November 06, 2024 9:38pm Advance Directive Response Recorded Date/ Time Living Will No November 06, 2024 9:38pm Do you have a Healthcare Power of Automotive Buyer? No November 06, 2024 9:38pm Living Will No December 08, 2024 6:50am Do you have a Healthcare Power of Automotive Buyer? No December 08, 2024 6:50am Advance Directive Response Recorded Date/ Time Living Will No December 08, 2024 6:50am Do you have a Healthcare Power of Automotive Buyer? No December 08, 2024 6:50am Chief Complaint [...] 9am Cough January 11, 2025 8:33a m Chief Complaint Admit Date E ORDER/COPY RESULTS TO PCP November 25 6:42am chest pain December 08, 2024 6:4 9am Cough January 11, 2025 8:33a m LUNG March 04, 2025 7:13 am Additional Source Comments INFORMATION SOURCE (unrecogn ized section and content) DATE CREATED AUTHOR 01/23/2022 [facility] DATE CREATED AUTHOR AUTHOR'S ORGANIZ ATION 01/01/2023 [facility] DATE CREATED AUTHOR AUTHOR'S ORGANIZ ATION 12/09/2024 [facility] DATE CREATED AUTHOR AUTHOR'S ORGANIZ ATION 03/11/2025 [facility] Source Comments (unrecognize d section and content) In the event this informatio n is protected by the Federal Confidentiality of Alcohol and Drug Abuse Patient Records regulations: The Federal rules restrict any use of the information to criminally investigate or prosecute any alcohol or drug abuse patient.[facility] the event this information is protected by the Federal Confidentiality of Alcohol and Drug Abuse Patient Records regulations: The Federal rules restrict any use of the information to criminally investigate or prosecute any alcohol or drug abuse patient.[facility]In the event this information is protected by the Federal Confidentiality of Alcohol and Drug Abuse Patient Records regulations: The Federal rules restrict any use of the information to criminally investigate or prosecute any alcohol or drug abuse patient.[facility] Hospital[facility] the event this information is protected by the Federal Confidentiality of Alcohol and Drug Abuse Patient Records regulations: The Federal rules restrict any use of the information to criminally investigate or prosecute any alcohol or drug abuse patient.[facility] Reason for Visit (unrecogniz ed section and content) Reason Comments Cough cough, ST, and irrit ated eyes x 1.5 weeks Reason Comments Chest Congestion Cough, ST x7 daysCon junctivitis bilateral x7 days Reason Comments Information Care Teams (unrecognized sec tion and content) Manager Of School Relationship Specialty Start Date End Date Yarelis Fitzpatrick DO PCP - General Internal Medicine 04/29/13 Manager Of School Relationship Specialty Start Date End Date Yarelis [...] , DO Primary Care Provider Active Dr. Balta [...] , DO Primary Care Provider Active Dr. Heydi Meier , DO Attending Provider, Referring Prov ider Active Team Status: Inactive Member Role Status Dates Dr. Yarelis Fitzpatrick , DO Primary Care Provider Active Dr. Rakesh Meeks , DO Attending Provider, Referring Pro vider Active Manager Of School Relationship Specialty Start Date End Date No Primary Care[place] [address] PCP - General Pediatrics 02/09/23 Team Status: Active Member Role Status Dates Dr. Yarelis Fitzpatrick , Primary Care Provider Active Dr. Rakesh Meeks , DO Referring Provider, Other Provide r Active Dr. Adrien Millard MD Attending Provider Active Team Status: Inactive Member Role Status Dates Dr. Yarelis Fitzpatrick , DO Primary Care Provider, Referr ing Provider Active Yesenia Hahn EXTRUDER, EXTRUDER-C Attending Provider Active Team Status: Inactive Member Role Status Dates Dr. Yarelis Fitzpatrick , DO Primary Care Provider Active Yesenia Hahn EXTRUDER, EXTRUDER-C Attending Provider, Referrin g Provider Active Manager Of School Relationship Specialty Start Date End Date Yarelis Fitzpatrick DO PCP - General Internal Medicine 04/29/13 Manager Of School Relationship Specialty Start Date End Date No Primary [place] [address] PCP - General Pediatrics 02/09/23 Manager Of School Relationship Specialty Start Date End Date Yarelis [...] August 27, 2024 End: August 27, 2024 Kimberly Jacobson NP-C Attending Provider Active Start: August 27, 2024 End: August 27, 2024 MARII SomersC Referring Provider Active Start: August 27, 2024 End: August 27, 2024 Team Status: Inactive Member Role Status Dates Dr. Yarelis Fitzpatrick DO Primary Care Provider Active Start: August 28, 2024 End: August 28, 2024 MARII SomersC Attending Provider Active Start: August 28, 2024 End: August 28, 2024 DARRYN Somers Referring Provider Active Start: August 28, 2024 End: August 28, 2024 Team Status: Inactive Member Role Status Dates Dr. Yarelis Fitzpatrick DO Primary Care Provider Active Start: August 30, 2024 End: August 30, 2024 Dr. Yarelis Fitzpatrick DO Referring Provider Active Start: August 30, 2024 End: August 30, 2024 DARRYN Escobar Attending Provider Active Start: August 30, 2024 End: August 30, 2024 Team Status: Inactive Member Role Status Dates Dr. Yarelis Fitzpatrick DO Primary Care Provider Active Start: September 03, 2024 End: September 03, 2024 DARRYN Escobar Attending Provider Active Start: September 03, 2024 End: September 03, 2024 DARRYN Escoabr Referring Provider Active Start: September 03, 2024 End: September 03, 2024 Team Status: Inactive Member Role Status Dates Dr. Yarelis Fitzpatrick DO Primary Care Provider Active Start: September 04, 2024 End: September 04, 2024 Dr. Yarelis Fitzpatrick DO Attending Provider Active Start: September 04, 2024 End: September 04, 2024 DARRYN Escobar Referring Provider Active Start: September 04, 2024 End: September 04, 2024 Kimberly Kavon , EXTRUDER-C Other Provider Active Star t: September 04, 2024 End: September 04, 2024 Team Status: Inactive Member Role Status Dates Dr. Yarelis Fitzpatrick DO Primary Care Provider Active Start: September 27, 2024 End: September 27, 2024 Patience Del Real EXTRUDER-C Attending Provider Active Start: September 27, 2024 End: September 27, 2024 Patience Del Real EXTRUDER-C Referring Provider Active Start: September 27, 2024 End: September 27, 2024 Team Status: Inactive Member Role Status Dates Dr. Yarelis Fitzpatrick DO Primary Care Provider Active Start: October 15, 2024 End: October 15, 2024 Patience Del Real EXTRUDER-C Attending Provider Active Start: October 15, 2024 End: October 15, 2024 Patience Del Real EXTRUDER-C Referring Provider Active Start: October 15, 2024 [...] 2024 NATASHA ASENCIO Attending Provider Active Start: Ma y 2024 End: December 21, 2024 NATASHA ASENCIO Referring Provider Active Start: Ma y 2024 End: December 21, 2024 Team Status: [...] January 30, 2025 End: January 30, 2025 Team Status: Active Member Role/Relationship Status Dates Dr. Yarelis Fitzpatrick DO Primary Care Provider Active Team Status: Inactive Member Role/Relationship Status Dates Dr. Yarelis Fitzpatrick DO Primary Care Provider Active Start: November 25, 2024 End: November 25, 2024 Dr. Yordan Vanegas DO Attending Provider Active Start: November 25, 2024 End: November 25, 2024 Dr. Yordan Vanegas DO Referring Provider Active Start: November 25, 2024 End: November 25, 2024 Team Status: Inactive Member Role/Relationship Status Dates Dr. Yarelis Fitzpatrick DO Primary Care Provider Active Start: December 08, 2024 End: December 08, 2024 Dr. Mike Mai MD Attending Provider Active Sta rt: December 08, 2024 End: December 08, 2024 Dr. Mike Mai MD Emergency Provider Active Sta rt: December 08, 2024 End: December 08, 2024 Team Status: Inactive Member Role/Relationship Status Dates Dr. Yarelis Fitzpatrick DO Primary Care Provider Active Start: December 21, 2024 End: December 21, 2024 NATASHA ASENCIO Attending Provider Active Start: 2024 End: December 21, 2024 NATASHA ASENCIO Referring Provider Active Start: Gopi pinedo 2024 End: December 21, 2024 Team Status: Inactive Member Role/Relationship Status Dates Dr. Yarelis Fitzpatrick DO Primary Care Provider Active Start: January 11, 2025 End: January 11, 2025 DARRYN Escobar Attending Provider Active Start: January 11, 2025 End: January 11, 2025 DARRYN Escobar Referring Provider Active Start: January 11, 2025 End: January 11, 2025 Dr. Rajat Tarango MD Other Provider Active Start: January 11, 2025 End: January 11, 2025 Team Status: Inactive Member Role/Relationship Status Dates Dr. Yarelis Fitzpatrick DO Primary Care Provider Active Start: January 30, 2025 End: January 30, 2025 Dr. Rajat Tarango MD Attending Provider Active Start: January 30, 2025 End: January 30, 2025 Dr. Rajat Tarango MD Referring Provider Active Start: January 30, 2025 End: January 30, 2025 Team Status: Inactive Member Role/Relationship Status Dates Dr. Yarelis Fitzpatrick DO Primary Care Provider Active Start: March 04, 2025 End: March 04, 2025 Dr. Rajat Tarango MD Attending Provider Active Start: March 04, 2025 End: March 04, 2025 Dr. Rajat Tarango MD Referring Provider Active Start: March 04, 2025 End: March 04, 2025 Goals (unrecognized section and content) Goals [...] BE BASED ON THE PRIMARY CLINICAL RECORDS. [facility]. provides no warranty or guarantee of the accuracy or completeness of information in this document.
[2025-04-28 09:23] LABS: AST(SGOT) 43 U/L (<=31); Alanine Aminotransfer ALT/SGPT 41 U/L (<=34); Albumin, Serum 4.1 g/dL (3.5-5.0); Alkaline Phosphatase 140 U/L (35-104); Anion Gap 12 (5-15); BUN 9 mg/dL (4-19); BUN/Creat Ratio 15.3 RATIO (10-20); Calcium,Total 9.3 mg/dL (7.6-11.0); Carbon Dioxide 24.8 mmol/L (21.0-32.0); Chloride 103 mmol/L (98-108); Cholesterol 198 mg/dL (<=200); Globulin 2.8 g/dL (2.2-4.2); Glucose 100 mg/dL (70-99); Low Density Lipoprotein Calc. 112 mg/dL; Potassium 3.9 mmol/L (3.3-5.1); Triglycerides 76 mg/dL; Very Low Density Lipoprotein 15 mg/dL (5-40); cholesterol:hdl ratio screen 2.81
== END | disposition home or self-care (01) ==
LOC: LAB 07:22
PROVIDERS: PCP Internal Medicine; Referring Provider Internal Medicine; Visit Provider Internal Medicine
DX: E11.9 Type 2 diabetes mellitus without complications (principal)
CPT/HCPCS: 36415; 80053; 80061; 83036; 83695; 84443

== ENCOUNTER → 2025-06-09 | Outpatient (CLI) | payer OTHER, SELFPAY ==
--- NOTE | 2025-06-09 08:16 | US_ITS ---
PROCEDURE: ABDOMEN LIMITED 06/09/2025 REASON FOR EXAM: ELEVATED LIVER ENZYMES TECHNIQUE: Procedure Code: USABDL Modality: US Procedure: ABDOMEN LIMITED COMPARISON: None FINDINGS: Liver: Grossly normal size and echotexture. Gallbladder: 4 mm x 3 mm x 3 mm gallbladder polyp. Common bile duct: Normal measuring 2.8 mm. Pancreas: Visualized portions are unremarkable. The distal body and tail are obscured by bowel gas. Other: Visualized portions of the right kidney are unremarkable. No right upper quadrant ascites. US/Abdomen Limited IMPRESSION: 4 mm x 3 mm x 3 mm gallbladder polyp. Reading Location: [facility]
--- NOTE | 2025-06-09 08:16 | US_ITS ---
PROCEDURE: ABDOMEN LIMITED 06/09/2025 REASON FOR EXAM: ELEVATED LIVER ENZYMES TECHNIQUE: Procedure Code: USABDL Modality: US Procedure: ABDOMEN LIMITED COMPARISON: None FINDINGS: Liver: Grossly normal size and echotexture. Gallbladder: 4 mm x 3 mm x 3 mm gallbladder polyp. Common bile duct: Normal measuring 2.8 mm. Pancreas: Visualized portions are unremarkable. The distal body and tail are obscured by bowel gas. Other: Visualized portions of the right kidney are unremarkable. No right upper quadrant ascites. US/Abdomen Limited IMPRESSION: 4 mm x 3 mm x 3 mm gallbladder polyp. Reading Location: [facility]
[2025-06-09 10:25] LABS: AST(SGOT) 29 U/L (<=31); Alanine Aminotransfer ALT/SGPT 26 U/L (<=34); Albumin, Serum 4.2 g/dL (3.5-5.0); Alkaline Phosphatase 118 U/L (35-104); Bilirubin, Direct 0.10 mg/dL (0.00-0.30); Ferritin 113 ng/mL (22-378); Globulin 2.6 g/dL (2.2-4.2); Iron 58 ug/dL (50-170); Iron Binding Capacity,Total 265 ug/dL (250-450); Iron Binding Capacity,Unsat 207 ug/dL (228-428); Vitamin B12 640 pg/mL (180-914)
[2025-06-09 14:02] LABS: Hematocrit 42.0 % (37-47); Hemoglobin 13.5 g/dL (12.0-15.0); Immature Granulocytes Count 0.030 X10^3/uL (0.0-0.0); Mean Corp Hgb Conc 32.1 g/dL (32-36); Mean Corpuscular Volume 85.2 fL (81-99); Mean Platelet Vol. 10.1 fl (6.2-12.0); NRBC Flagged by Analyzer 0 % (0-5); POSITIVE MORPHOLOGY YES; Platelet Count 336 K/mm3 (150-450); RBC Distribution Width CV 14.6 % (11.6-14.6); RBC Distribution Width SD 44.5 fl (35.1-43.9); Red Blood Count 4.93 M/mm3 (4.2-5.4); White Blood Count 11.6 K/mm3 (4.4-11.0)
[2025-06-09 14:39] LABS: Differential Indicated SCAN CRITERIA MET
[2025-06-10 08:09] LABS: Immunoglobulin G 963 mg/dL (586-1602)
[2025-06-14 04:07] LABS: Bluegrass, Kentucky <0.10 kU/L (Class 0); Cat Hair/Dander, Standard <0.10 kU/L (Class 0); Dog Epithelia <0.10 kU/L (Class 0); Elm, American White <0.10 kU/L (Class 0); Oak, White <0.10 kU/L (Class 0); Plantain, English <0.10 kU/L (Class 0); Ragweed, Short/Common <0.10 kU/L (Class 0)
== END | disposition home or self-care (01) ==
PROVIDERS: PCP Internal Medicine
DX: D83.9 Common variable immunodeficiency, unspecified (principal); J47.9 Bronchiectasis, uncomplicated; R76.89 Other specified abnormal immunological findings in serum; B99.9 Unspecified infectious disease; D50.9 Iron deficiency anemia, unspecified; E53.8 Deficiency of other specified B group vitamins; R74.8 Abnormal levels of other serum enzymes
CPT/HCPCS: 36415; 76705; 80076; 82607; 82728; 82784; 83540; 83550; 85025; 86003; 87070; 87077; 87186; 87205

== ENCOUNTER → 2025-08-05 | Outpatient (CLI) | payer OTHER, SELFPAY ==
--- NOTE | 2025-08-05 18:47 | CT_ITS ---
PROCEDURE: SINUS/FACIAL BONE 08/06/2025 REASON FOR EXAM: CHRONIC SINUSITIS TECHNIQUE: Procedure Code: CTSI Modality: CT Procedure: SINUS/FACIAL BONE Coronal and Sagittal reconstruction series were provided. One or more dose reduction techniques were used (e.g., Automated exposure control, adjustment of the mA and/or kV according to patient size, use of iterative reconstruction technique). RADIATION DOSE SUMMARY: CTDI Vol 22.63 mGy DLP :515.6mGycm COMPARISON: none FINDINGS: Clear sphenoid and frontal sinuses as well as the maxillary antra and ethmoidal air cells. Uncinate Processes: No deviation or bulla formation O-M UNIT: patent. Sphenoethmoidal recesses. Patent Fovea Ethmoidalis: Normal position. Fovea ethmoidalis and cribriform plate are not low lying Nasal Septum: minimally bowed convex to the right side. Turbinates: Thickening of the mucosa covering the left inferior turbinate. Nasopharynx: no obvious abnormalities. Mastoid air cells and middle ear clefts: Unremarkable Facial Bones and mandible: Unremarkable. CT/Sinus/Facial Bone IMPRESSION: Unremarkable study. No obvious sinusitis. Reading [facility]
== END | disposition home or self-care (01) ==
LOC: CT 18:46
PROVIDERS: PCP Internal Medicine; Referring Provider Internal Medicine Pulmonary Disease; Visit Provider Internal Medicine Pulmonary Disease
DX: J32.9 Chronic sinusitis, unspecified (principal)
CPT/HCPCS: 70486

== ENCOUNTER → 2025-08-09 | Outpatient (CLI) | payer OTHER, SELFPAY ==
--- OUTSIDE RECORDS SUMMARY | 2025-08-09 11:13 | XMS RPT_ITS | CCD ---
Author Organization [facility] Inform ion Partnership [facility] Care Team Providers Care Dress Operator Name Role Phone Yarelis Fitzpatrick Unavailable Chris Villeda Unavailable Eliseo Corral Unavailable Gravenedelia, Haydee Unavailable Unavailable Lissett Tolbert Unavailable Unavailable Slarb, Kiesha Unavailable Unavailable Unavailable Unavailable Ciesa, Lu Unavailable Erasmo Huynh Unavailable Unavailable Blanca Morrow Unavailable Unavailable Yarelis Fitzpatrick DO Unavailable Dr. Eliseo Corral Unavailable Erasmo Huynh LPN Unavailable Unavailable Lissett Tolbert RN Unavailable Unavailable Blanca Morrow LPN Unavailable Unavailable Ciesabraham SSIS ETL DEVELOPER, Lu Unavailable Slarb PLATEN DRIER OPERATOR, Kiesha Unavailable Unavailable Unavailable Unavailable Edu MCGEE Haydee Unavailable Unavailable Yarelis Fitzpatrick DO Primary Care Provider Yarelis Fitzpatrick DO Unavailable Yaa Calderon MA Unavailable Unavailable Pam Escamilla MD Unavailable Sylvia PLATEN DRIER OPERATOR, Ingrid Unavailable Unavailable Shawn MCGEE Kayela Unavailable Unavailable Xochilt MCGEE Lyubov Unavailable Unavailable Yarelis Fitzpatrick DO Primary Care Provider Fast DO Heydi A Unavailable Dylon Vazquez MD Unavailable Yarelis Fitzpatrick DO Attending Unavailable Yarelis Fitzpatrick DO Consulting Unavailable Dr. Yarelis Fitzpatrick Primary Care Provider Dr. Balta Whipple Attending Provider Dr. Yarelis Fitzpatrick Referring Provider Dr. Rakesh Meeks Attending Provider Glynn Barillas Unavailable Giovani HENSON, Patience Unavailable Unavailable No handle attacher, Md Primary Care Provider Domitila vailable Dr. Yarelis Fitzpatrick Primary Care Provider Dr. Rakesh Meeks Referring Provider Dr. Rakesh Meeks Other Provider Dr. Adrien Millard Attending Provider Dr. Yarelis Fitzpatrick Referring Provider Selma FIGURE CLERK, FIGURE CLERK-C Yesenia Attending Provider Yarelis Fitzpatrick DO Primary Care Provider No handle attacher, Md Primary Care Provider Domitila vailable Dr. Yarelis Fitzpatrick DO Primary Care Provider Sarabjit SIERRA, Dr. Gifford Attending Provider Kavon FIGURE CLERK-CKimberly Attending Provider Kavon SNEED-CKimberly Referring Provider Dr. Yarelis Fitzpatrick DO Referring Provider Patience Hopkins Attending Provider Patience Hopkins Referring Provider Dr. Yarelis Fitzpatrick DO Attending Provider Kavon FIGURE CLERK-CKimberly Other Provider Dr. Yordan Vanegas DO Referring Provider Dr. Yordan Vanegas DO Emergency Provider Dr. Yordan Vanegas DO Attending Provider [phone] Mike Mai MD Emergency Provider Dr. Mike Mai MD Attending Provider LUIS M VAZQUEZ Attending Provider LUIS M VAZQUEZ Referring Provider [phone] Dr. Yarelis Fitzpatrick DO Primary Care Provider Nasima FIGURE CLERK-CPatience Attending Provider Nasima FIGURE CLERK-C, Patience Pastor Referring Provider Dr. Yarelis Fitzpatrick DO Referring Provider Dr. Rajat Tarango MD, V Other Provider Dr. Yarelis Fitzpatrick DO Primary Care Provider [phone] Nasima FIGURE CLERK-CPatience Attending Provider Nasima FIGURE CLERK-C, Patience Pastor Referring Provider Emelina SIERRA, Dr. Rajat Menard Attending Provider Dr. Rajat Tarango MD, V Referring Provider [phone] Dr. Yarelis Fitzpatrick DO Primary Care Provider Dr. Yordan Vanegas DO Attending Provider Dr. Yordan Vanegas DO Referring Provider Nasima FIGURE CLERK-C, Patience Pastor Attending Provider Nasima FIGURE CLERK-CPatience Referring Provider DYLON VAZQUEZ Referring Unavailable NO PRIMARY CARE, Primary Care Unavailable DYLON VAZQUEZ Attending Unavailable DOC, MISC Primary Care Unavailable REFERRED, SELF Referring Unavailable DYLON VAZQUEZ Attending Unavailable DYLON VAZQUEZ Referring Unavailable NO PRIMARY CARE, Primary Care Unavailable DYLON VAZQUEZ Attending Unavailable DOC, MISC Primary Care Unavailable REFERRED, SELF Referring Unavailable DYLON VAZQUEZ Attending Unavailable Dr. Yarelis Fitzpatrick DO Primary Care Physician Dr. Rajat Tarango MD, V Attending Physician Dr. Yarelis Fitzpatrick DO Attending Physician Dr. Yarelis Fitzpatrick DO Referring Provider [phone] Amari, Yarelis Primary Care Unavailable Sibilia, Rajat V Attending Unavailable Amari, Yarelis Primary Care Unavailable Sibilia, Rajat V Referring Unavailable Sibilia, Rajat V Attending Unavailable Patience Del Real Referring Unavailable Amari, Yarelis Primary Care Unavailable Sibilia, Rajat V Consulting Unavailable Patience Del Real Attending Unavailable Amari, Yarelis Referring Unavailable Patience Del Real Attending Unavailable Amari, Yarelis Primary Care Unavailable Mike Mai Attending Unavailable Yordan Vanegas Referring Unavailable ThornhillYordan martínez Attending Unavailable Amari, Yarelis Primary Care Unavailable Amari, Yarelis Primary Care Unavailable Amari, Yarelis Attending Unavailable Kimberly Jacobson Consulting Unavailable Patience Del Real Referring Unavailable Amari, Yarelis Primary Care Unavailable Kimberly Jacobson Referring Unavailable Kimberly Jacobson Attending Unavailable Yordan Vanegas Referring Unavailable ThornhillYordan martínez Attending Unavailable Amari, Yarelis Primary Care Unavailable Amari, Yarelis Primary Care Unavailable GOMEZ, B Referring Unavailable GOMEZ, B Attending Unavailable Amari, Yarelis Primary Care Unavailable Amari, Yarelis Referring Unavailable Amari, Yarelis Attending Unavailable Patience Del Real Attending Unavailable Amari, Yarelis Primary Care Unavailable Amari, Yarelis Referring Unavailable Amari, Yarelis Primary Care Unavailable Pateince Del Real Attending Unavailable Amari, Yarelis Primary Care Unavailable Amari, Yarelis Consulting Unavailable GOMEZ, B Referring Unavailable GOMEZ, B Attending Unavailable Sibilia, Rajat V Consulting Unavailable Amari, Yarelis Primary Care Unavailable Sibilia, Rajat V Referring Unavailable Sibilia, Rajat V Attending Unavailable Patience Del Real Referring Unavailable Amari, Yarelis Primary Care Unavailable Patience Del Real Attending Unavailable Patience Del Real Referring Unavailable Amari, Yarelis Primary Care Unavailable Patience Del Real Attending Unavailable Patience Del Real Referring Unavailable Patience Del Real Attending Unavailable Amari, Yarelis Primary Care Unavailable Amari, Yarelis Primary Care Unavailable Kimberly Jacobson Referring Unavailable Kimberly Jacobson Attending Unavailable Amari, Yarelis Primary Care Unavailable SarabjitHanIrving Attending Unavailable Medications Current Medications Medication Drug [...] 02/09/2023 Active cefuroxime 500 mg oral tablet (6 sources) Cephalosporin Antibacterial Start: 01-14-2025 End: 01-14-2025 take 1 tablet by mouth every twelve hours cetirizine hydrochloride 10 mg oral tablet (6 [...] immunoglobulin g, human 200 mg/ml prefilled syringe (13 sources) Human Immunoglobulin G Start: 08-30-19 Start: 11-23-2023 immune globuli n, Human, 5gm [...] package. 21 Each 12/18/2023 Active nebulizer kits (9 sources) Start: 08-30-2024 nebulizer kits Active 0 .ROUTE .MEDSUPPLY 1 August 30, 2024 1:00am Mass of upper lobe of right lung Other nonspecific abnormal finding of lung field As directed Start: 08-30-2024 nebulizer kits Active 0 .ROUTE .MEDSUPPLY August 30, 2024 1:00am As directed PEP device (10 sources) Start: 08-15-2023 PEP device Act titus 0 .ROUTE .MEDSUPPLY 1 0 August 15, 2023 1:00am Bronchiectasis Bronchiectasis, uncomplicated with training Start: 08-15-2023 PEP device Act titus 0 .ROUTE .MEDSUPPLY August 15, 2023 1:00am with training Start: 08-15-2023 PEP device Act titus 0 .ROUTE .MEDSUPPLY August 15, 2023 12:00am with training polymyxin b [id number] unt/ml / trimethoprim 1 mg/ml ophthalmic solution [...] take 3 tablets by mouth once daily Start: 11-06-2022 End: 11-11-2022 take 2 tablets [...] stop with food Take 2 tablets by [facility] once daily for 5 days. 40mg [...] / oxyCODONE hydrochloride 5 mg oral tablet (13 sources) Opioid Agonist Start: 3 End: 3 Oxycodone-Acetaminop hen (Percocet) 5-325 mg tablet Discontinued 1 {tbl} PO EVERY 6 HOURS as needed for pain 12 3 0 November 07, 2022 January 24, 2023 6:47am Renal colic Unspecified renal colic [id number] 200 actuat albuterol 0.09 mg/actuat metered dose [...] DO, Kathleen Start : 10-Jun-2022 Active Comments: kayleense one box Start: 03-17-2022 End: 08-30-2024 Albuterol Sulfate [...] 4 hours as needed (wheezing/shortness of breath). kayleense one box amoxicillin 875 mg / clavulanate [...] Quantity: 20 {Tablet} Refills: 0 Ordered: 12-Sep-2022 AmariYarelis felix DO AmariYarelis felix DO Start : 12-Sep-2022 End : 22-Sep-2022 Inactive [...] one box cefdinir 300 mg oral capsule (8 sources) Cephalosporin Antibacterial Start: 11-07-19 End: 01-15-20 take 1 capsule by mouth twice daily Cefdinir 300 mg capsule Discontinued 300 mg PO TWICE A DAY 14 November 06, 2024 12:00am January 14, 2025 3:26pm 24 hr clarithromycin 500 mg extended release oral tablet (20 sources) Macrolide Antimicrobial Start: 12-02-19 10 End: 12-16-19 take 2 tablets by mouth once daily [...] 100 mg PO TWICE A DAY 14 December 08, 2024 12:00am January 14, 2025 4:05pm Start: 11-06-2022 End: 03-26-2023 take 1 tablet by mouth twice daily [...] Comment on above: Take 1 tablet by [facility] twice daily for 7 days. famotidine 20 mg oral tablet (20 sources) Histamine-2 Receptor Antagonist Start: 09-12-2020 End: 07-02-2021 take 1 tablet by mouth twice daily Pepcid 20 MG Oral Tablet 1 Tablet bid for 0 days Quantity: 120 {Tablet} Refills: 2 Ordered: 02-Jul-2021 Yaa Calderon MA Start : 19-Oct-2020 End : 02-Jul-2021 Inactive Start: 07-13-2020 take 2 tablets by [facility] twice daily Pepcid 20 MG Oral Tablet 2 (two) Tablet bid for 0 days Quantity: 120 {Tablet} Refills: 2 Ordered: 13-Jul-2020 Yarelis Fitzpatrick DO, DO, Kathleen Start : 13-Jul-2020 Active Comments: new dose due to not making 40mg tabs anymore Start: 04-20-2020 take 2 tablets by mo [facility] twice daily Pepcid 20 MG Oral Tablet 2 (two) Tablet bid for 0 days Quantity: 120 {Tablet} Refills: 2 Ordered: 20-Apr-2020 Yarelis Fitzpatrick DO, DO, Kathleen Start : 20-Apr-2020 Active Comments: new dose due to not making 40mg tabs anymore Start: 03-12-2020 take 2 tablets by mo [facility] twice daily Pepcid 20 MG Oral Tablet 2 (two) Tablet bid for 0 days Quantity: 120 {Tablet} Refills: 2 Ordered: 12-Mar-2020 Amair ROBLEDO Yarelis Fitzpatrick DO Yarelis Start : 12-Mar-2020 Active Comments: new dose due to not making 40mg tabs anymore Start: 01-10-2020 take 1 tablet by deidre th twice daily Pepcid 40 MG Oral Tablet 1 (one) Tablet bid for 0 days Quantity: 60 {Tablet} Refills: 2 Ordered: 10-Jan-2020 Amari ROBLEDO Yarelis Amari DO, Yarelis Start : 10-Jan-2020 Active take 1 [...] tablet (20 sources) Antihistamine Start: 10-01-19 End: 02-22-20 21 hydrOXYzine HCl 25 MG Oral Tablet [...] 2 Ordered: 15-Jun-2020 Amari DO, Yarelis Amari DO, Yarelis Start : 15-Jun-2020 Active Comments: for itching Start: 05-14-2020 hydrOXYzine HC l 25 MG Oral Tablet 1 (one) Tablet q6-8hrs prn for 0 days Quantity: 30 {Tablet} Refills: 0 Ordered: 14-May-2020 Amari DO, Yarelis Amari DO, Yarelis Start : 14-May-2020 Active Comments: for itching Start: 04-15-2020 hydrOXYzine HC l 25 MG Oral Tablet 1 (one) Tablet q6-8hrs prn for 0 days Quantity: 30 {Tablet} Refills: 0 Ordered: 15-Apr-2020 Amari DO, Yarelis Amari DO Yarelis Start : 15-Apr-2020 Active Comments: for itching Start: 03-23-2020 hydrOXYzine HC l 25 MG Oral Tablet 1 (one) Tablet q6-8hrs prn for 0 days Quantity: 30 {Tablet} Refills: 0 Ordered: 23-Mar-2020 Amari DO, Yarelis Amari DO Yarelis Start : 23-Mar-2020 Active Comments: for [...] 30-Apr-2010 Discontinued Comments: This order discontinued per -[facility]. Comment on above: This order discontin ued per -. ketorolac tromethamine 10 mg oral tablet (7 sources) Nonsteroidal Anti-inflammatory Drug, Cyclooxygenase Inhibitor Start: 023 End: ketorolac 10 mg oral tablet 1 1/2 [...] nebulization Discontinued 0.63 mg INHALATION Q12H 90 3 October 01, 2024 8:56am December 20, 2024 9:29am Start: 08-30-2024 End: 08-30-2024 take 0.63 mg by inhalation once Levalbuterol Hcl 0.63 mg/3 mL solution for nebulization Discontinued 0.63 mg INHALATION ONCE 90 3 August 30, 2024 1:00am August 30, 2024 1:18pm levoFLOXacin 750 mg oral tablet (20 sources) Quinolone Antimicrobial Start: 10-21-2024 End: 10-31-2024 take 1 tablet by mouth every twenty-four hours Levofloxacin 750 mg tablet Discontinued 750 mg PO Q24H 10 10 0 October 21, 2024 1:00am October 30, 2024 12:00am October 31, 2024 12:13am Start: 08-30-2024 End: 10-21-2024 Levofloxacin 500 mg tablet Discontinued 500 mg PO daily 7 0 August 30, 2024 11:45am October 21, 2024 [...] Medication vendor. Comment on above: Discontinued by [facility] vendor. ondansetron 4 mg disintegrating oral tablet (13 sources) Serotonin-3 Receptor Antagonist Start: 11-08-19 End: [...] for 30 days Refills: 0 Ordered: 24-Dec-2019 Bipin RESTREPO MANUEL Start : 04-Feb-2013 End : 24-Dec-2019 Inactive tamsulosin hydrochloride 0.4 mg oral capsule (7 sources) alpha-Adrenergic Gagan Start: 11-09-19 23 Flomax 0.4 mg oral capsule 1 [...] Problem Date Documented Date Episodic/Chronic Abdominal hernia (11 sources) Hiatal hernia; Translations: [Diaphragmatic hernia without obstruction or gangrene] 03-22-2023 Episodic Abdominal pain (11 sources) Flank pain; Translations: [Unspecified abdominal pain] [...] [Unspecified renal colic] 11-07-2022 Episodic Cardiac dysrhythmias (6 sources) ECG: sinus tachycardia; Translations: [Tachycardia, unspecified] [...] anemia (20 sources) Deficiency and other anemia Diabetes mellitus without complication (1 source) Type 2 diabetes mellitus without complications; Translations: [Type 2 diabetes mellitus without complications] Onset: 05-13-2025 Chronic Diseases of white blood cells (1 source) Elevated white blood cell count, unspecified; Translations: [Elevated white blood cell count, unspecified] Onset: 09-26-2024 Chronic Fever of unknown origin (20 sources) Fever with chills; Translations: [Fever and chills] Resolved: 01-22-2021 01-10-2020 Episodic Immunity disorders (20 sources) Immunodeficiency disorder; Translations: [Immunodeficiency] Onset: 07-07-2023 01-10-2020 Chronic Comment on above: per Sibilia 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 will gwork up again and CT chest discussed with Emelina h/o humoral immune d efic -- saw dr daniels -- see records with w/u 2019-- what came of it seems unclear? has appt with dr monik clarke Immunizations and screening for infectious disease (20 [...] Resolved: 10-14-2022 01-10-2020 Episodic Other circulatory disease (6 sources) Elevated blood-pressure reading without diagnosis of [...] CT scan similar appearance of CT saw sibilia put on breathing treatments every am when [...] infectious disease] Onset: 02-09-2023 2024 Episodic Other inflammatory condition of skin (20 [...] 12-30-2022 12-16-2022 Episodic Other lower respiratory disease (20 sources) Lung mass; Translations: [Other nonspecific abnormal finding of lung field] 08-30-2024 Episodic Other lower respiratory disease (8 sources) Pleuritic pain; Translations: [Pleurodynia] 11-06-2024 Episodic Other nervous system disorders (20 sources) [...] in throat Episodic Other upper respiratory disease (6 sources) Acute bronchospasm; Translations: [Acute bronchospasm] 12-08-2024 Episodic Other upper respiratory infections (20 sources) Sinusitis; Translations: [Sinusitis] 01-22-2021 Chronic Other upper respiratory infections (20 sources) Acute sinusitis; Translations: [Acute sinusitis] Resolved: 02-04-2009 02-04-2009 Episodic Otitis media and related conditions (20 sources) Dysfunction of eustachian tube; Translations: [Eustachian tube dysfunction] Resolved: 09-12-2022 05-26-2015 Episodic Residual codes; unclassified (20 sources) FH: Diabetes [...] Problem Classification Problem Date Documented Date Episodic/Chronic Other infections; including parasitic (1 source) Unspecified infectious disease; Translations: [Unspecified infectious disease] Onset: 12-25-2024 Episodic Other lower respiratory disease (1 source) Solitary pulmonary nodule; Translations: [Solitary pulmonary nodule] Onset: 03-10-2025 Episodic Other lower respiratory disease (1 source) Other nonspecific abnormal finding of lung field; Translations: [Other nonspecific abnormal finding of lung field] Onset: 02-27-2025 Episodic Pneumonia (except that caused by tuberculosis or sexually transmitted disease) (20 sources) Unspecified bacterial pneumonia; Translations: [Infective pneumonia] Onset: 01-31-2025 Resolved: 12-30-2022 01-10-2020 Episodic Comment on above: Rt upper lobe improved after 5 day s pneumonia, rt upper still with some rt shoulder pain mild RUL Pneumonia (except that caused by tuberculosis or [...] Test Name Value Interpretation Reference Range [facility] A. ALTERNATA <0.10 Normal Class 0 [facility] Comment on above: Performed By: #### L 500.4100, L3410.9994, L501.9520, L3400.4600, L501.9985, L3410.9992, L500.4050 #### [facility] [address] [place], [place], [id number] BERMUDA GRASS <0.10 Normal Class 0 [facility] Comment on above: Performed By: #### L 500.4100, L3410.9994, L501.9520, L3400.4600, L501.9985, L3410.9992, L500.4050 #### [facility] [address] [place], [place], [id number] [place], [place] <0.10 Normal Class 0 [facility] Comment on above: Performed By: #### L 500.4100, L3410.9994, L501.9520, L3400.4600, L501.9985, L3410.9992, L500.4050 #### [facility] [address] [place], [place], [id number] CAT HAIR/DANDER <0.10 Normal Class 0 [facility] Comment on above: Performed By: #### L 500.4100, L3410.9994, L501.9520, L3400.4600, L501.9985, L3410.9992, L500.4050 #### [facility] [address] [place], [place], [id number] COMMENT Comment Normal . [facility] Comment on above: Result Comment: Federico hinson of Specific IgE Class Description of Class ----- < 0.10 0 Negative 0.10 - 0.31 0/I Equivocal/Low 0.32 - 0.55 I Low 0.56 - 1.40 II Moderate 1.41 - 3.90 III High 3.91 - 19.00 IV Very High 19.01 - 100.00 V Very High >100.00 Very High Performed By: #### L 500.4100, L3410.9994, L501.9520, L3400.4600, L501.9985, L3410.9992, L500.4050 #### [facility] [address] [place], [address] D FARINAE MITE <0.10 Normal Class 0 [facility] Comment on above: Performed By: #### L 500.4100, L3410.9994, L501.9520, L3400.4600, L501.9985, L3410.9992, L500.4050 #### [facility] [address] [place], [address] D PTERONYSSINUS <0.10 Normal Class 0 [facility] Comment on above: Performed By: #### L 500.4100, L3410.9994, L501.9520, L3400.4600, L501.9985, L3410.9992, L500.4050 #### [facility] [address] [place], [address] DOG EPITHELIA <0.10 Normal Class 0 [facility] Comment on above: Performed By: #### L 500.4100, L3410.9994, L501.9520, L3400.4600, L501.9985, L3410.9992, L500.4050 #### [facility] [address] [place], [address] ELM,AMER WHITE <0.10 Normal Class 0 [facility] Comment on above: Performed By: #### L 500.4100, L3410.9994, L501.9520, L3400.4600, L501.9985, L3410.9992, L500.4050 #### [facility] [address] [place], [address] Mouse Urine <0.10 Normal Class 0 [facility] Comment on above: Result Comment: Perf ormed at: [address] [id number] Non Clinical Advisor: Kenney Andersen MD, Phone: [phone] Performed By: #### L 500.4100, L3410.9994, L501.9520, L3400.4600, L501.9985, L3410.9992, L500.4050 #### [facility] [address] [place], [place], [id number] OAK, WHITE <0.10 Normal Class 0 [facility] Comment on above: Performed By: #### L 500.4100, L3410.9994, L501.9520, L3400.4600, L501.9985, L3410.9992, L500.4050 #### [facility] [address] [place], [place], [id number] PLANTHUMA,JACQUELINEH <0.10 Normal Class 0 [facility] Comment on above: Performed By: #### L 500.4100, L3410.9994, L501.9520, L3400.4600, L501.9985, L3410.9992, L500.4050 #### [facility] [address] [place], [place], [id number] RAGWEED SH/COM <0.10 Normal Class 0 [facility] Comment on above: Performed By: #### L 500.4100, L3410.9994, L501.9520, L3400.4600, L501.9985, L3410.9992, L500.4050 #### [facility] [address] [place], [place], [id number] Respiratory Cultureon 2024 RESPC #2 Ampicillin can be used for Beta-Lactamase negative isolates. Trimeth/Sulfa, Chloramphenicol, Cefotaxime, Ciprofloxacin, Amoxicillin/Clavulanic Acid, and Oral 2nd/3rd Generation Cephalosporins are effective against both Beta-Lactamase positive and Beta-Lactamase negative isolates. Streptococcus pneumoniae Amount Growth 3+ Haemophilus influenzae Amount Growth 3+ Beta Lactamase-Reportable Negative Streptococcus pneumoniae: REACTION Cefotaxime Islt CELENA 0.5 [...] S Penicillin Islt CELENA 1 I Normal [facility] Comment on above: Performed By: #### L 500.4100, L3410.9994, L501.9520, L3400.4600, L501.9985, L3410.9992, L500.4050 #### [facility] [address] [place], [place], [address] Gram Stainon 2025 GS Acceptable Specimen? Yes (<25 Epithelial cells per/lpf) Gram Stain 2+ Gram positive cocci 1+ White Blood Cells Rare Epithelial cells Normal [facility] Comment on above: Performed By: #### L 500.4100, L3410.9994, L501.9520, L3400.4600, L501.9985, L3410.9992, L500.4050 #### [facility] [address] [place], [place], [address] Immunoglobulin Dilip 5 IMMUNOGLOB G QN 963 mg/dL Normal 586-1602 [facility] Comment on above: Result Comment: Perf ormed at: - [facility] [address] [id number] Non Clinical Advisor: Ramsey Oleary PhD, Phone: [phone] Performed By: #### L 3200.1300 #### [facility] [address] [place], [place], [address] Abdomen Limitedon 06-09-2025 Abdomen Limited [facility] [address] [place], [place] [address] Abdomen Limited MR#: [id number] Acct: [id number] Name: OFE GIMENEZ Rep #: [id number] : 1975 F 49 From: Luis doherty MD PCP: Dr. Yarelis Fitzpatrick DO Status: REG CLI Study: Abdomen Limited Date of Exam: 06/09/25 Exam# [id number] Ordering Dr: Yarelis Fitzpatrick DO PROCEDURE: ABDOMEN LIMITED 06/09/2025 REASON FOR EXAM: ELEVATED LIVER ENZYMES TECHNIQUE: Procedure Code: USABDL Modality: US Procedure: ABDOMEN LIMITED COMPARISON: None FINDINGS: Liver: Grossly normal size and echotexture. Gallbladder: 4 mm x 3 mm x 3 mm gallbladder polyp. Common bile duct: Normal measuring 2.8 mm. Pancreas: Visualized portions are unremarkable. The distal body and tail are obscured by bowel gas. Other: Visualized portions of the right kidney are unremarkable. No right upper quadrant ascites. US/Abdomen Limited IMPRESSION: 4 mm x 3 mm x 3 mm gallbladder polyp. Reading Location: [place] [address] CC: Dr. Yarelis Fitzpatrick DO Account Liaison: Signed Normal [facility] CBC W/Diff, Automatedon 10-2 Absolute Lymph 3.12 X10 3/uL Normal 0.83-4.51 [facility] Comment on above: Performed By: #### L 500.4100, L3410.9994, L501.9520, L3400.4600, L501.9985, L3410.9992, L500.4050 #### [facility] [address] [place], [place], [id number] Absolute Neut 7.6 X10 3/uL Normal 2.0-7.7 [facility] Comment on above: Performed By: #### L 500.4100, L3410.9994, L501.9520, L3400.4600, L501.9985, L3410.9992, L500.4050 #### [facility] [address] [place], [address] Basophils/100 WBC (Bld) 0.9 % Normal 0-1 [facility] Comment on above: Performed By: #### L 500.4100, L3410.9994, L501.9520, L3400.4600, L501.9985, L3410.9992, L500.4050 #### [facility] [address] [place], [address] Eosinophils/100 WBC (Bld) 0.9 % Normal 0-5 [facility] Comment on above: Performed By: #### L 500.4100, L3410.9994, L501.9520, L3400.4600, L501.9985, L3410.9992, L500.4050 #### [facility] [address] [place], [address] Erythrocyte distribution width (RBC) [Ratio] 14.6 % Normal 11.6-14.6 [facility] Comment on above: Performed By: #### L 500.4100, L3410.9994, L501.9520, L3400.4600, L501.9985, L3410.9992, L500.4050 #### [facility] [address] [place], [address] Hematocrit (Bld) [Volume fraction] 42.0 % Normal 37-47 [facility] Comment on above: Performed By: #### L 500.4100, L3410.9994, L501.9520, L3400.4600, L501.9985, L3410.9992, L500.4050 #### [facility] [address] [place], [address] Hemoglobin (Bld) [Mass/Vol] 13.5 g/dL Normal 12.0-15.0 [facility] Comment on above: Performed By: #### L 500.4100, L3410.9994, L501.9520, L3400.4600, L501.9985, L3410.9992, L500.4050 #### [facility] [address] [place], [address] IG% 0.300 Normal 0.0-0.9 [facility] Comment on above: Result Comment: IG% - Immature Granulocytes (promyelocytes, myelocytes and metamyelocytes) > 1% indicates that a LEFT SHIFT is Present. Performed By: #### L 500.4100, L3410.9994, L501.9520, L3400.4600, L501.9985, L3410.9992, L500.4050 #### [facility] [address] [place], [address] Lymphocytes/100 WBC (Bld) 26.9 % Normal 19-41 [facility] Comment on above: Performed By: #### L 500.4100, L3410.9994, L501.9520, L3400.4600, L501.9985, L3410.9992, L500.4050 #### [facility] [address] [place], [address] MCH (RBC) [Entitic mass] 27.4 pg Normal 27.0-32.0 [facility] Comment on above: Performed By: #### L 500.4100, L3410.9994, L501.9520, L3400.4600, L501.9985, L3410.9992, L500.4050 #### [facility] [address] [place], [address] MCHC (RBC) [Mass/Vol] 32.1 g/dL Normal 32-36 [facility] Comment on above: Performed By: #### L 500.4100, L3410.9994, L501.9520, L3400.4600, L501.9985, L3410.9992, L500.4050 #### [facility] [address] [place], [address] MCV (RBC) [Entitic vol] 85.2 fL Normal 81-99 [facility] Comment on above: Performed By: #### L 500.4100, L3410.9994, L501.9520, L3400.4600, L501.9985, L3410.9992, L500.4050 #### [facility] [address], [address] Monocytes/100 WBC (Bld) 5.3 % Normal 0-10 [facility] Comment on above: Performed By: #### L 500.4100, L3410.9994, L501.9520, L3400.4600, L501.9985, L3410.9992, L500.4050 #### [facility] [address], [address] Neutrophils/100 WBC (Bld) 65.7 % Normal 47-70 [facility] Comment on above: Performed By: #### L 500.4100, L3410.9994, L501.9520, L3400.4600, L501.9985, L3410.9992, L500.4050 #### [facility] [address], [address] Nucleated RBC (Bld) [#/Vol] 0 10*3/uL Normal 0-5 [facility] Comment on above: Performed By: #### L 500.4100, L3410.9994, L501.9520, L3400.4600, L501.9985, L3410.9992, L500.4050 #### [facility] [address] [place], [address] Platelet mean volume (Bld) [Entitic vol] 10.1 fL Normal 6.2-12.0 [facility] Comment on above: Performed By: #### L 500.4100, L3410.9994, L501.9520, L3400.4600, L501.9985, L3410.9992, L500.4050 #### [facility] [address] [place], [address] Platelets (Bld) [#/Vol] 336 10*3/uL Normal 150-450 [facility] Comment on above: Performed By: #### L 500.4100, L3410.9994, L501.9520, L3400.4600, L501.9985, L3410.9992, L500.4050 #### [facility] [address] [place], [address] RBC (Bld) [#/Vol] 4.93 10*6/uL Normal 4.2-5.4 [facility] Comment on above: Performed By: #### L 500.4100, L3410.9994, L501.9520, L3400.4600, L501.9985, L3410.9992, L500.4050 #### [facility] [address] [place], [address] RDW SD 44.5 fl High 35.1-43.9 [facility] Comment on above: Performed By: #### L 500.4100, L3410.9994, L501.9520, L3400.4600, L501.9985, L3410.9992, L500.4050 #### [facility] [address] [place], [address] WBC (Bld) [#/Vol] 11.6 10*3/uL High 4.4-11.0 [facility] Comment on above: Performed By: #### L 500.4100, L3410.9994, L501.9520, L3400.4600, L501.9985, L3410.9992, L500.4050 #### [facility] [address] [place], [address] Ferritinon 06-09-2025 Ferritin [Mass/Vol] 113 ng/mL Normal 22-378 [facility] Comment on above: Performed By: #### L 500.4100, L3410.9994, L501.9520, L3400.4600, L501.9985, L3410.9992, L500.4050 #### [facility] [address] [place], [address] Iron+Iron Binding Capacityon 06-09-2025 Iron [Mass/Vol] 58 ug/dL Normal 50-170 [facility] Comment on above: Performed By: #### L 500.4100, L3410.9994, L501.9520, L3400.4600, L501.9985, L3410.9992, L500.4050 #### [facility] [address] [place], [address] IRON SATURATION 21.9 Normal 13-59 [facility] Comment on above: Performed By: #### L 500.4100, L3410.9994, L501.9520, L3400.4600, L501.9985, L3410.9992, L500.4050 #### [facility] [address], [address] TIBC 265 ug/dL Normal 250-450 [facility] Comment on above: Performed By: #### L 500.4100, L3410.9994, L501.9520, L3400.4600, L501.9985, L3410.9992, L500.4050 #### [facility] [address] [place], [address] UIBC 207 ug/dL Low 228-428 [facility] Comment on above: Performed By: #### L 500.4100, L3410.9994, L501.9520, L3400.4600, L501.9985, L3410.9992, L500.4050 #### [facility] [address] [place], [address] Liver Profileon 06-09-2025 Albumin [Mass/Vol] 4.2 g/dL Normal 3.5-5.0 [facility] Comment on above: Performed By: #### L 500.4100, L3410.9994, L501.9520, L3400.4600, L501.9985, L3410.9992, L500.4050 #### [facility] [address] [place], [address] ALK PHOS 118 U/L High 35-104 [facility] Comment on above: Performed By: #### L 500.4100, L3410.9994, L501.9520, L3400.4600, L501.9985, L3410.9992, L500.4050 #### [facility] [address] [place], [address] ALT [Catalytic activity/Vol] 26 U/L Normal <=34 [facility] Comment on above: Performed By: #### L 500.4100, L3410.9994, L501.9520, L3400.4600, L501.9985, L3410.9992, L500.4050 #### [facility] [address] [place], [address] AST [Catalytic activity/Vol] 29 U/L Normal <=31 [facility] Comment on above: Performed By: #### L 500.4100, L3410.9994, L501.9520, L3400.4600, L501.9985, L3410.9992, L500.4050 #### [facility] [address] [place], [address] Bilirubin [Mass/Vol] 0.27 mg/dL Normal 0.00-1.30 [facility] Comment on above: Performed By: #### L 500.4100, L3410.9994, L501.9520, L3400.4600, L501.9985, L3410.9992, L500.4050 #### [facility] [address] [place], [address] Bilirubin.direct [Mass/Vol] 0.10 mg/dL Normal 0.00-0.30 [facility] Comment on above: Performed By: #### L 500.4100, L3410.9994, L501.9520, L3400.4600, L501.9985, L3410.9992, L500.4050 #### [facility] [address], [address] Globulin (S) [Mass/Vol] 2.6 g/dL Normal 2.2-4.2 [facility] Comment on above: Performed By: #### L 500.4100, L3410.9994, L501.9520, L3400.4600, L501.9985, L3410.9992, L500.4050 #### [facility] [address] [place], [address] T PROT 6.8 g/dL Normal 5.9-8.4 [facility] Comment on above: Performed By: #### L 500.4100, L3410.9994, L501.9520, L3400.4600, L501.9985, L3410.9992, L500.4050 #### [facility] [address] [place], [address] Vitamin B12on 06-09-2025 Cobalamin (Vitamin B12) [Mass/Vol] 640 pg/mL Normal 180-914 [facility] Comment on above: Performed By: #### L 500.4100, L3410.9994, L501.9520, L3400.4600, L501.9985, L3410.9992, L500.4050 #### [facility] [address] [place], [address] Progress Noteon 05-12-2025 [employer] Authentication Interface Message Text Ofe is a 49 y.o. female who presents to our office today for a follow up visit. She was last seen on 12/09/24 and before this on 06/10/24 and before this on 12/18/23 and before this on 07/07/23 and she was seen initially on 02/09/23 for evaluation secondary to concerns from her PCP Dr. Yarelis Fitzpatrick (see referral in Epic). Ofe used to be followed by Dr. Tarango (Fire Equipment Inspector) for lung nodules and she had been [...] 12/16/22 IgG-307, IgA<5, IgM-30 and IgE<[address] may have shown possible bronchiectasis and per Dr. Fitzpatrick she was to see Dr. Meeks (Fire Equipment Inspector in [place]) and she had done this once and [...] and albuterol is used as needed and prior to her initial visit, she had not seen Dr. Tarango since 2017. In the past, she was given Prednisone at times for respiratory type symptoms and this was tolerated. -Due to her seeing a Fire Equipment Inspector (Dr. Meesk), I held off on spirometry at her initial visit and food and environmental allergen testing did not appear to be indicated and this was discussed with her. At her initial visit, I ordered IgG, IgA, IgM and IgE levels, lymphocyte profile, tetanus titer, pneumococcal titers, HIV and Mitogen studies (8401) and on 02/13/23, IgG-242, IgA <5, IgM-23 [...] Hizentra therapy. Then on 12/18/23, since the prior visit due to insurance cost issues, she went off Hizentra for a period of time and had increased issues and I sent in a course of Ceftin 11/17/23 and this was helpful and while on Hizentra, her IgG level was 1030 on 07/07/23. She says her spirometry with her Fire Equipment Inspector was normal and she did not have [...] then received a phone call from her Fire Equipment Inspector's office and see 11/01/24. Received a call from Patience Del Real [facility] Pulmonology [facility] (phone # [phone] and #[phone]). She wanted to discuss Ofe who was [...] Bronchiectasis and will refer her to Infectious D (more content not included)... Normal [facility] L3410.9992on 04-30-2025 [facility]. COMMENT Normal . [facility] Comment on above: Order Comment: SERUM OR EDTA PLASMA RMT [id number] APOLIO B Result Comment: Test Ordered: [id number] Apolipoprotein B Apolipoprotein B 83 mg/dL BN Reference Range: <90 Desirable < 90 Borderline High 90 - 99 High 100 - 130 Very High >130 ASCVD RISK THERAPEUTIC TARGET CATEGORY APO B (mg/dL) Very High Risk <80 (if extreme risk <70) High Risk <90 Moderate Risk <90 Performed at: - [address] [id number] Non Clinical Advisor: Kenney Andersen MD, Phone: [phone] Performed at: [facility] [address] [id number] Non Clinical Advisor: Ramsey Oleary PhD, Phone: [phone] Performed By: #### L 126.0226, L3410.9994, L501.9520, L3400.4600, L501.9985, L3410.9992, L500.4050 #### [facility] [address] [place], [place], [address] L3410.9994on 04-30-2025 [facility] Misc. 2 COMMENT Normal . [facility] Comment on above: Order Comment: SERUM RMT [id number] ANTI-MPO AB Result Comment: Test Ordered: [id number] Anti-MPO Antibodies Anti-MPO Antibodies <0.2 units Reference Range: 0.0-0.9 Performed at: [address] [id number] Non Clinical Advisor: Kenney Andersen MD, Phone: [phone] Performed at: [address] [id number] Non Clinical Advisor: Ramsey Oleary PhD, Phone: [phone] Performed By: #### L 500.4100, L3410.9994, L501.9520, L3400.4600, L501.9985, L3410.9992, L500.4050 #### [facility] [address] [place], [place], [address] Lipoprotein Aon 04-29-2025 Lipoprotein a [Mass/Vol] mg/dL Normal <75.0 [facility] Comment on above: Order Comment: Test( s) 253280-Uzwbumjdcob (a) was developed and its performance characteristics determined by [facility]. It has not been cleared or approved by the Food and Drug Administration. Result Comment: Re sults verified by repeat testing Note: Values greater than or equal to 75.0 nmol/L may indicate an independent risk factor for CHD, but must be evaluated with caution when applied to non- populations due to the influence of genetic factors on Lp(a) across ethnicities. Performed at: [address] [id number] Non Clinical Advisor: Ramsey Oleary PhD, Phone: [phone] Performed By: #### L 500.4100, L3410.9994, L501.9520, L3400.4600, L501.9985, L3410.9992, L500.4050 #### [facility] [address] [place], [address] Anion gap in Serum or Plasma Ordered By: Yarelis Fitzpatrick on 04-28-2025 Anion gap [Moles/Vol] 12 mmol/L 5-15 [facility] BUN/creatinine ratioOrdered By: Yarelis Fitzpatrick on 04-28-2025 Urea nitrogen/Creatinine [Mass ratio] 15.3 mg/mg 10- [facility] Bilirubin, totalOrdered By: Yarelis Fitzpatrick on 04-28-2025 Bilirubin [Mass/Vol] 0.31 mg/dL 0.00-1.30 [facility] Calculated very low density lipoprotein (VLDL) cholesterol measurementOrdered By: Yarelis Fitzpatrick on 04-28-2025 Calculated very low density lipoprotein (VLDL) cholesterol measurement 15 mg/dL - [facility] Carbon dioxide, total [Moles /volume] in Central venous bloodOrdered By: Yarelis Fitzpatrick on 04-28-2025 CO2 [Moles/Vol] 24.8 mmol/L 21.0-32.0 [facility] Chloride assayOrdered By: Shannon Fitzpatrick on 04-28-2025 Chloride [Moles/Vol] 103 mmol/L 98-108 [facility] Comprehensive Metabolic Prof ilon 04-28-2025 Albumin [Mass/Vol] 4.1 g/dL Normal 3.5-5.0 [facility] Comment on above: Performed By: #### L 500.4100, L3410.9994, L501.9520, L3400.4600, L501.9985, L3410.9992, L500.4050 #### [facility] [address] [place], [address] Albumin/Globulin [Mass ratio] 1.5 {ratio} Normal 0.9-2.4 [facility] Comment on above: Performed By: #### L 500.4100, L3410.9994, L501.9520, L3400.4600, L501.9985, L3410.9992, L500.4050 #### [facility] [address] [place], [address] ALK PHOS 140 U/L High 35-104 [facility] Comment on above: Performed By: #### L 500.4100, L3410.9994, L501.9520, L3400.4600, L501.9985, L3410.9992, L500.4050 #### [facility] [address] [place], [address] ALT [Catalytic activity/Vol] 41 U/L High <=34 [facility] Comment on above: Performed By: #### L 500.4100, L3410.9994, L501.9520, L3400.4600, L501.9985, L3410.9992, L500.4050 #### [facility] [address] [place], [address] AST [Catalytic activity/Vol] 43 U/L High <=31 [facility] Comment on above: Performed By: #### L 500.4100, L3410.9994, L501.9520, L3400.4600, L501.9985, L3410.9992, L500.4050 #### [facility] [address] [place], [address] Bilirubin [Mass/Vol] 0.31 mg/dL Normal 0.00-1.30 [facility] Comment on above: Performed By: #### L 500.4100, L3410.9994, L501.9520, L3400.4600, L501.9985, L3410.9992, L500.4050 #### [facility] [address] [place], [address] BUN/CRE 15.3 RATIO Normal 10-20 [facility] Comment on above: Performed By: #### L 500.4100, L3410.9994, L501.9520, L3400.4600, L501.9985, L3410.9992, L500.4050 #### [facility] [address] [place], [address] Calcium [Mass/Vol] 9.3 mg/dL Normal 7.6-11.0 [facility] Comment on above: Performed By: #### L 500.4100, L3410.9994, L501.9520, L3400.4600, L501.9985, L3410.9992, L500.4050 #### [facility] [address] [place], [address] Chloride [Moles/Vol] 103 mmol/L Normal 98-108 [facility] Comment on above: Performed By: #### L 500.4100, L3410.9994, L501.9520, L3400.4600, L501.9985, L3410.9992, L500.4050 #### [facility] [address] [place], [address] CO2 [Moles/Vol] 24.8 mmol/L Normal 21.0-32.0 [facility] Comment on above: Performed By: #### L 500.4100, L3410.9994, L501.9520, L3400.4600, L501.9985, L3410.9992, L500.4050 #### [facility] [address] [place], [address] Creatinine [Mass/Vol] 0.60 mg/dL Low 0.70-1.20 [facility] Comment on above: Performed By: #### L 500.4100, L3410.9994, L501.9520, L3400.4600, L501.9985, L3410.9992, L500.4050 #### [facility] [address] [place], [address] GAP 12 Normal 5-15 [facility] Comment on above: Performed By: #### L 500.4100, L3410.9994, L501.9520, L3400.4600, L501.9985, L3410.9992, L500.4050 #### [facility] [address] [place], [address] GFR/1.73 sq M.predicted among non-blacks MDRD (S/P/Bld) [Vol rate/Area] 109 mL/min/{1.73_m2} Normal >60 [facility] Comment on above: Result Comment: mL/m in/1.73m2 CKD-EPI Creatinine Equation (2020) Performed By: #### L 500.4100, L3410.9994, L501.9520, L3400.4600, L501.9985, L3410.9992, L500.4050 #### [facility] [address] [place], [address] Globulin (S) [Mass/Vol] 2.8 g/dL Normal 2.2-4.2 [facility] Comment on above: Performed By: #### L 500.4100, L3410.9994, L501.9520, L3400.4600, L501.9985, L3410.9992, L500.4050 #### [facility] [address] [place], [address] Glucose [Mass/Vol] 100 mg/dL High 70-99 [facility] Comment on above: Performed By: #### L 500.4100, L3410.9994, L501.9520, L3400.4600, L501.9985, L3410.9992, L500.4050 #### [facility] [address] [place], [address] Potassium [Moles/Vol] 3.9 mmol/L Normal 3.3-5.1 [facility] Comment on above: Performed By: #### L 500.4100, L3410.9994, L501.9520, L3400.4600, L501.9985, L3410.9992, L500.4050 #### [facility] [address] [place], [address] Sodium [Moles/Vol] 140 mmol/L Normal 133-145 [facility] Comment on above: Performed By: #### L 500.4100, L3410.9994, L501.9520, L3400.4600, L501.9985, L3410.9992, L500.4050 #### [facility] [address] [place], [address] T PROT 6.9 g/dL Normal 5.9-8.4 [facility] Comment on above: Performed By: #### L 500.4100, L3410.9994, L501.9520, L3400.4600, L501.9985, L3410.9992, L500.4050 #### [facility] [address] [place], [address] Urea nitrogen [Mass/Vol] 9 mg/dL Normal 4-19 [facility] Comment on above: Performed By: #### L 500.4100, L3410.9994, L501.9520, L3400.4600, L501.9985, L3410.9992, L500.4050 #### [facility] [address] [place], [address] Glomerular filtration rate ( GFR) estimation/1.73 sq m using serum, plasma, or whole bOrdered By: Yarelis Fitzpatrick on 04-28-2025 GFR/1.73 sq M.predicted among non-blacks MDRD (S/P/Bld) [Vol rate/Area] 109 mL/min/{1.73_m2} >60 [facility] Comment on above: mL/min/1.73m2 CKD-EP I Creatinine Equation (2020) Hemoglobin A1con 04-28-2025 HbA1c (Bld) [Mass fraction] 6.0 % High <=5.6 [facility] Comment on above: Result Comment: Norm al < 5.7 % Prediabetic 5.7 - 6.4 % Diabetic >or= 6.5 % Please note range changes. Performed By: #### L 500.4100, L3410.9994, L501.9520, L3400.4600, L501.9985, L3410.9992, L500.4050 #### [facility] [address] [place], [address] Hemoglobin A1c percentageOrd ered By: Yarelis Fitzpatrick on 04-28-2025 HbA1c (Bld) [Mass fraction] 6.0 % High <5.7 [facility] Comment on above: Normal < 5.7 % Predi abetic 5.7 - 6.4 % Diabetic >or= 6.5 % Please note range changes. LDL calc ser/plasOrdered By: Yarelis Fitzpatrick on 04-28-2025 Cholesterol in LDL [Mass/Vol] 112 mg/dL [facility] Comment on above: Imxurijrph=993-269 m g/dL & Higher Sedp=385 mg/dL or greaterFriedwald Equation for LDL-C Laboratory - Chemistry and C hemistry - challengeOrdered By: Yarelis Fitzpatrick on 04-28-2025 AST [Catalytic activity/Vol] 43 U/L High <32 [facility] Lipid Profileon 04-28-2025 CHOL:HDL 2.81 Normal [facility] Comment on above: Performed By: #### L 500.4100, L3410.9994, L501.9520, L3400.4600, L501.9985, L3410.9992, L500.4050 #### [facility] [address] [place], [address] Cholesterol [Mass/Vol] 198 mg/dL Normal <=200 [facility] Comment on above: Result Comment: Chol esterol level, Desirable <200 mg/dL Borderline high cholesterol 200-239 mg/dL High cholesterol >=240 mg/dL Recommendations of the NCEP Adult Treatment Panel for the following risk-cutoff thresholds for the [place] population. Performed By: #### L 500.4100, L3410.9994, L501.9520, L3400.4600, L501.9985, L3410.9992, L500.4050 #### [facility] [address] [place], [address] Cholesterol in HDL [Mass/Vol] 71 mg/dL Normal [facility] Comment on above: Result Comment: Candice onal Cholesterol Education Program (NCEP) guidelines: <40 mg/dL: Low HDL-cholesterol (major risk factor for CHD) >= 60 mg/dL: High HDL-cholesterol (negative risk factor for CHD) HDL-cholesterol is affected by a number of factors, e.g. smoking, exercise, hormones, sex and age. Performed By: #### L 500.4100, L3410.9994, L501.9520, L3400.4600, L501.9985, L3410.9992, L500.4050 #### [facility] [address] [place], [address] Cholesterol in LDL [Mass/Vol] 112 mg/dL Normal [facility] Comment on above: Result Comment: Bord tspjwb=160-850 mg/dL Higher Rbmx=842 mg/dL or greater Friedwald Equation for LDL-C Performed By: #### L 500.4100, L3410.9994, L501.9520, L3400.4600, L501.9985, L3410.9992, L500.4050 #### [facility] [address] [place], [address] Cholesterol in VLDL [Mass/Vol] 15 mg/dL Normal 5-40 [facility] Comment on above: Performed By: #### L 500.4100, L3410.9994, L501.9520, L3400.4600, L501.9985, L3410.9992, L500.4050 #### [facility] [address] [place], [place], [address] Triglyceride [Mass/Vol] 76 mg/dL Normal [facility] Comment on above: Result Comment: The drugs N-Acetylcysteine and Metamizole may falsely depress this assay. Normal range: <150 mg/dL Borderline High: 150-199 mg/dL High: 200-499 mg/dL Very High: >500 mg/dL Performed By: #### L 500.4100, L3410.9994, L501.9520, L3400.4600, L501.9985, L3410.9992, L500.4050 #### [facility] [address] [place], [place], [id number] Potassium measurement (mass/ volume)Ordered By: Yarelis Fitzpatrick on 04-28-2025 Potassium (Unsp spec) [Mass/Vol] 3.9 mmol/L 3.3-5.1 [facility] Screening total cholesterol/ high density lipoprotein (HDL) cholesterol ratioOrdered By: Yarelis Fitzpatrick on 04-28-2025 Cholesterol.total/Cho lesterol in HDL [Mass ratio] 2.81 {ratio} [facility] Serum creatinine measurement (mass/volume)Ordered By: Yarelis Fitzpatrick on 04-28-2025 Creatinine [Mass/Vol] 0.60 mg/dL Low 0.70-1.20 [facility] Serum globulin measurementOr dered By: Yarelis Fitzpatrick on 04-28-2025 Globulin (S) [Mass/Vol] 2.8 g/dL 2.2-4.2 [facility] Serum glucose measurement (m ass/volume)Ordered By: Yarelis Fitzpatrick on 04-28-2025 Glucose [Mass/Vol] 100 mg/dL High 70-99 [facility] Serum or plasma alanine ruby otransferase (ALT) measurementOrdered By: Yarelis Fitzpatrick on 04-28-2025 ALT [Catalytic activity/Vol] 41 U/L High <35 [facility] Serum or plasma albumin sanford urement (mass/volume)Ordered By: Yarelis Fitzpatrick on 04-28-2025 Albumin [Mass/Vol] 4.1 g/dL 3.5-5.0 [facility] Serum or plasma albumin/glob ulin mass ratioOrdered By: Yarelis Fitzpatrick on 04-28-2025 Albumin/Globulin [Mass ratio] 1.5 {ratio} 0.9-2.4 [facility] Serum or plasma alkaline neftali sphatase measurementOrdered By: Yarelis Fitzpatrick on 04-28-2025 ALP [Catalytic activity/Vol] 140 U/L High 35-104 [facility] Serum or plasma calcium sanford urement (mass/volume)Ordered By: Yarelis Fitzpatrick on 04-28-2025 Calcium [Mass/Vol] 9.3 mg/dL 7.6-11.0 [facility] Serum or plasma cholesterol in HDL measurement (mass/volume)Ordered By: Yarelis Fitzpatrick on 04-28-2025 Cholesterol in HDL [Mass/Vol] 71 mg/dL >40 [facility] Comment on above: National Cholesterol Education Program (NCEP) guidelines:<40 mg/dL: Low HDL-cholesterol (major risk factor for CHD)>= 60 mg/dL: High HDL-cholesterol (negative risk factor for CHD)HDL-cholesterol is affected by a number of factors, e.g. smoking, exercise, hormones, sex and age. Serum or plasma cholesterol measurement (mass/volume)Ordered By: Yarelis Fitzpatrick on 04-28-2025 Cholesterol [Mass/Vol] 198 mg/dL <201 [facility] Comment on above: Cholesterol level, D esirable <200 mg/dLBorderline high cholesterol 200-239 mg/dLHigh cholesterol >=240 mg/dLRecommendations of the NCEP Adult Treatment Panel for the following risk-cutoff thresholds for the [place] population. Serum or plasma lipoprotein a measurement (mass/volume)Ordered By: Yarelis Fitzpatrick on 04-28-2025 Lipoprotein a [Mass/Vol] <8.4 nmol/L <75.0 [facility] Comment on above: Results verified b y repeat testingNote: Values greater than or equal to 75.0 nmol/L may indicate an independent risk factor for CHD, but must be evaluated with caution when applied to non- populations due to the influence of genetic factors on Lp(a) across ethnicities.Performed at: [place] [id number] Director: Ramsey Oleary PhD, Phone: [phone] Serum or plasma urea nitroge n measurement (mass/volume)Ordered By: Yarelis Fitzpatrick on 04-28-2025 Urea nitrogen [Mass/Vol] 9 mg/dL 4-19 [facility] Sodium levelOrdered By: Briseida amor Amari on 04-28-2025 Sodium [Moles/Vol] 140 mmol/L 133-145 [facility] TSH DL <= 0.005 mIU/L QnOrde red By: Yarelis Fitzpatrick on 04-28-2025 TSH Qn 2.400 uIU/mL 0.300-4.200 [facility] Thyroid Stim Hormone (TSH)on 04-28-2025 TSH 2.400 uIU/mL Normal 0.300-4.200 [facility] Comment on above: Performed By: #### L 500.4100, L3410.9994, L501.9520, L3400.4600, L501.9985, L3410.9992, L500.4050 #### [facility] [address] [place], [address] Total proteinOrdered By: Magnolia Fitzpatrick on 04-28-2025 Protein [Mass/Vol] 6.9 g/dL 5.9-8.4 [facility] Triglycerides measurementOrd ered By: Yarelis Fitzpatrick on 04-28-2025 Triglyceride [Mass/Vol] 76 mg/dL <199 [facility] Comment on above: The drugs N-Acetylcy steine and Metamizole may falsely depress this assay. Normal range: <150 mg/dLBorderline High: 150-199 mg/dLHigh: 200-499 mg/dLVery High: >500 mg/dL Positron emission tomography scan reportOrdered By: Kayden Pelayo on 03-06-2025 PT Unspecified body region [facility] Imaging Services [address] [place] [address] PET/CT Tumor Base -Thigh Init MR#: [id number] Acct: [id number] Name: OFE GIMENEZ Rep #: [id number] : 1975 F 49 From: Pet er Peer DO PCP: Dr. Yarelis Fitzpatrick, DO Status: RE G CLI Study:PET/CT Tumor Base -Thigh Init Date of E alida: 03/04/25 Exam# [id number] Ordering Dr: Rajat Tarango MD PROCEDURE: PET/CT [...] PET will be reported separately. Reading Location: [facility] CC: Dr. Yarelis Fitzpatrick DO; Dr. Rajat Tarango MD ~ Account Liaison: Signed [facility] PET/CT Tumor Base -Thigh Ini ton 03-04-2025 PET/CT Tumor Base -Thigh Init [facility] Imaging Services [address] [place] [address] PET/CT Tumor Base -Thigh Init MR#: [id number] Acct: [id number] Name: OFE GIMENEZ Rep #: [id number] : 1975 F 49 From: Kayden Pelayo DO PCP: Dr. Yarelis Fitzpatrick DO Status: REG CLI Study: PET/CT Tumor Base -Thigh Init Date of Exam: Exam# [id number] Ordering Dr: Rajat Tarango MD PROCEDURE: PET/CT [...] PET will be reported separately. Reading Location: [facility]- CC: Dr. Yarelis Fitzpatrick DO; Dr. Rajat Tarango MD Account Liaison: Signed Normal [facility] Respiratory Cultureon 2024 RESPC Mixed normal respira tory nanda. No Haemophilus, Streptococcus pneumoniae, beta-hemolytic Streptococcus or Staphylococcus aureus isolated. Normal [facility] Comment on above: Performed By: #### L 500.4100, L3410.9994, L501.9520, L3400.4600, L501.9985, L3410.9992, L500.4050 #### [facility] [address] [place], [place], [address] Gram Stainon 01-31-2025 GS Acceptable Specimen? Yes (<25 Epithelial cells per/lpf) Gram Stain 2+ Gram positive cocci 1+ Gram positive rods 1+ Gram negative rods Rare Epithelial cells Normal [facility] Comment on above: Performed By: #### L 500.4100, L3410.9994, L501.9520, L3400.4600, L501.9985, L3410.9992, L500.4050 #### [facility] [address] [place], [place], [address] Gram stainOrdered By: Rajat Tarango on 01-30-2025 Microscopic observation Gram stain Nom (Unsp spec) [facility] Microbial respiratory cultur eOrdered By: Rajat Tarango on 01-30-2025 Microorganism identified Cx Nom (Unsp spec) [facility] Respiratory Cultureon 2024 RESPC Copy of [...] S Penicillin Islt CELENA 1 I Normal [facility] Comment on above: Performed By: #### L 500.4100, L3410.9994, L501.9520, L3400.4600, L501.9985, L3410.9992, L500.4050 #### [facility] [address] [place], [address] Gram Stainon 01-11-2025 GS Acceptable Specimen? Yes (<25 Epithelial cells per/lpf) Gram Stain 2+ Gram negative rods 1+ Gram positive rods 2+ Gram positive cocci 1+ White Blood Cells Rare Epithelial cells Normal [facility] Comment on above: Performed By: #### L 500.4100, L3410.9994, L501.9520, L3400.4600, L501.9985, L3410.9992, L500.4050 #### [facility] [address] [place], [address] Gram stainOrdered By: NAREN Del Real on 01-11-2025 Microscopic observation Gram stain Nom (Unsp spec) [facility] Microbial respiratory cultur eOrdered By: NAREN [place] on 01-11-2025 Microorganism identified Cx Nom (Unsp spec) Streptococcus pneumoniae Abnormal [facility] Microorganism identified Cx Nom (Unsp spec) Haemophilus influenzae Abnormal [facility] Immunoglobulin Dilip 5 IMMUNOGLOB G QN 936 mg/dL Normal 586-1602 [facility] Comment on above: Result Comment: Perf ormed at: - [facility] [address] [id number] Non Clinical Advisor: Ramsey Oleary PhD, Phone: [phone] Performed By: #### L 3200.1300 #### [facility] [place], [address] Serum or plasma IgG measurem ent (mass/volume)on 12-21-2024 IgG [Mass/Vol] 936 mg/dL 026-4420 [facility] Comment on above: Performed at: [address] [id number] Director: Ramsey Oleary PhD, Phone: [phone] Progress Noteon 12-09-2024 [employer] Authentication Interface Message Text Ofe is a 49 y.o. female who presents to our office today for a follow up visit. She was last seen on 06/10/24 and before this on 12/18/23 and before this on 07/07/23 and she was seen initially on 02/09/23 for evaluation secondary to concerns from her PCP Dr. Yarelis Fitzpatrick (see referral in [facility]). Ofe used to be followed by Dr. Tarango (Fire Equipment Inspector) for lung nodules and she had been [...] Fitzpatrick she was to see Dr. Meeks (Fire Equipment Inspector in [place]) and she had done this once and [...] she had not seen Dr. Tarango since 2018. In the past, she was given Prednisone at times for respiratory type symptoms and this was tolerated. -Due to her seeing a Fire Equipment Inspector (Dr. Meeks), I held off on spirometry [...] 07/07/23. She says her spirometry with her Fire Equipment Inspector was normal and she did not have [...] then received a phone call from her Fire Equipment Inspector's office and see 11/01/24. Received a call from Patience Del Real [facility] Pulmonology [facility] (phone # [phone] and #[phone]). She wanted to discuss Ofe who was [...] Pulmonology wi (more content not included)... Normal [facility] Absolute lymphocyte countOrd ered By: Mike Mai on 12-08-2024 Lymphocytes Auto (Unsp spec) [#/Vol] 3.83 10*3/uL 0.83-4.51 [facility] Absolute neutrophil countOrd ered By: Mike Mai on 12-08-2024 Neutrophils (Bld) [#/Vol] 12.3 10*3/uL High 2.0-7.7 [facility] Anion gap in Serum or Plasma Ordered By: Mike Mia on 12-08-2024 Anion gap [Moles/Vol] 12 mmol/L 5-15 [facility] Automated lymphocyte count a s percentage of total leukocytesOrdered By: Mike Mai on 12-08-2024 Lymphocytes/100 WBC Auto (Unsp spec) 21.5 % - [facility] BUN/creatinine ratioOrdered By: Mike Mai on 12-08-2024 Urea nitrogen/Creatinine [Mass ratio] 14.0 mg/mg - [facility] Basophil percentageOrdered B y: Mike Mai on 12-08-2024 Basophils/100 WBC (Bld) 0.4 % 0-1 [facility] Bilirubin, totalOrdered By: Mike Mai on 12-08-2024 Bilirubin [Mass/Vol] 0.29 mg/dL 0.00-1.30 [facility] CBC W/Diff, Automatedon 11-20 Absolute Lymph 3.83 X10 3/uL Normal 0.83-4.51 [facility] Comment on above: Performed By: #### L 500.4100, L3410.9994, L501.9520, L3400.4600, L501.9985, L3410.9992, L500.4050 #### [facility] [address] [place], [address] Absolute Neut 12.3 X10 3/uL High 2.0-7.7 [facility] Comment on above: Performed By: #### L 500.4100, L3410.9994, L501.9520, L3400.4600, L501.9985, L3410.9992, L500.4050 #### [facility] [address] [place], [address] Basophils/100 WBC (Bld) 0.4 % Normal 0-1 [facility] Comment on above: Performed By: #### L 500.4100, L3410.9994, L501.9520, L3400.4600, L501.9985, L3410.9992, L500.4050 #### [facility] [address] [place], [address] Eosinophils/100 WBC (Bld) 0.7 % Normal 0-5 [facility] Comment on above: Performed By: #### L 500.4100, L3410.9994, L501.9520, L3400.4600, L501.9985, L3410.9992, L500.4050 #### [facility] [address] [place], [address] Erythrocyte distribution width (RBC) [Ratio] 15.3 % High 11.6-14.6 [facility] Comment on above: Performed By: #### L 500.4100, L3410.9994, L501.9520, L3400.4600, L501.9985, L3410.9992, L500.4050 #### [facility] [address] [place], [address] Hematocrit (Bld) [Volume fraction] 39.6 % Normal 37-47 [facility] Comment on above: Performed By: #### L 500.4100, L3410.9994, L501.9520, L3400.4600, L501.9985, L3410.9992, L500.4050 #### [facility] [address], [address] Hemoglobin (Bld) [Mass/Vol] 13.4 g/dL Normal 12.0-15.0 [facility] Comment on above: Performed By: #### L 500.4100, L3410.9994, L501.9520, L3400.4600, L501.9985, L3410.9992, L500.4050 #### [facility] [address] [place], [address] IG% 0.500 Normal 0.0-0.9 [facility] Comment on above: Result Comment: IG% - Immature Granulocytes (promyelocytes, myelocytes and metamyelocytes) > 1% indicates that a LEFT SHIFT is Present. Performed By: #### L 500.4100, L3410.9994, L501.9520, L3400.4600, L501.9985, L3410.9992, L500.4050 #### [facility] [address] [place], [address] Lymphocytes/100 WBC (Bld) 21.5 % Normal 19-41 [facility] Comment on above: Performed By: #### L 500.4100, L3410.9994, L501.9520, L3400.4600, L501.9985, L3410.9992, L500.4050 #### [facility] [address] [place], [address] MCH (RBC) [Entitic mass] 27.3 pg Normal 27.0-32.0 [facility] Comment on above: Performed By: #### L 500.4100, L3410.9994, L501.9520, L3400.4600, L501.9985, L3410.9992, L500.4050 #### [facility] [address] [place], [address] MCHC (RBC) [Mass/Vol] 33.8 g/dL Normal 32-36 [facility] Comment on above: Performed By: #### L 500.4100, L3410.9994, L501.9520, L3400.4600, L501.9985, L3410.9992, L500.4050 #### [facility] [address] [place], [address] MCV (RBC) [Entitic vol] 80.8 fL Low 81-99 [facility] Comment on above: Performed By: #### L 500.4100, L3410.9994, L501.9520, L3400.4600, L501.9985, L3410.9992, L500.4050 #### [facility] [address] [place], [address] Monocytes/100 WBC (Bld) 7.8 % Normal 0-10 [facility] Comment on above: Performed By: #### L 500.4100, L3410.9994, L501.9520, L3400.4600, L501.9985, L3410.9992, L500.4050 #### [facility] [address] [place], [address] Neutrophils/100 WBC (Bld) 69.1 % Normal 47-70 [facility] Comment on above: Performed By: #### L 500.4100, L3410.9994, L501.9520, L3400.4600, L501.9985, L3410.9992, L500.4050 #### [facility] [address] [place], [address] Nucleated RBC (Bld) [#/Vol] 0 10*3/uL Normal 0-5 [facility] Comment on above: Performed By: #### L 500.4100, L3410.9994, L501.9520, L3400.4600, L501.9985, L3410.9992, L500.4050 #### [facility] [address] [place], [address] Platelet mean volume (Bld) [Entitic vol] 9.6 fL Normal 6.2-12.0 [facility] Comment on above: Performed By: #### L 500.4100, L3410.9994, L501.9520, L3400.4600, L501.9985, L3410.9992, L500.4050 #### [facility] [address] [place], [address] Platelets (Bld) [#/Vol] 435 10*3/uL Normal 150-450 [facility] Comment on above: Performed By: #### L 500.4100, L3410.9994, L501.9520, L3400.4600, L501.9985, L3410.9992, L500.4050 #### [facility] [address] [place], [address] RBC (Bld) [#/Vol] 4.90 10*6/uL Normal 4.2-5.4 [facility] Comment on above: Performed By: #### L 500.4100, L3410.9994, L501.9520, L3400.4600, L501.9985, L3410.9992, L500.4050 #### [facility] [address] [place], [address] RDW SD 45.0 fl High 35.1-43.9 [facility] Comment on above: Performed By: #### L 500.4100, L3410.9994, L501.9520, L3400.4600, L501.9985, L3410.9992, L500.4050 #### [facility] [address] [place], [address] WBC (Bld) [#/Vol] 17.8 10*3/uL High 4.4-11.0 [facility] Comment on above: Performed By: #### L 500.4100, L3410.9994, L501.9520, L3400.4600, L501.9985, L3410.9992, L500.4050 #### [facility] [address] [place], [address] Carbon dioxide, total [Moles /volume] in Central venous bloodOrdered By: Mike Mai on 12-08-2024 CO2 [Moles/Vol] 25.5 mmol/L 21.0-32.0 [facility] Chest PA and Lateralon 12-08 Chest PA and Lateral [facility] Imaging Services [address] [place] [address] Chest PA and Lateral MR#: [id number] Acct: [id number] Name: OFE GIMENEZ Rep #: [id number] : 1975 F 49 From: Santos Arana i, MD PCP: Dr. Yarelis Fitzpatrick, Status: PRE ER Study: Chest PA and Lateral Date of Exam: 12/08/24 Exam# [id number] Ordering Dr: Mike Mai MD PROCEDURE: CHEST [...] infiltrate or consolidation is seen. Reading Location: [id number] CC: Dr. Yarelis Fitzpatrick DO; Dr. Mike Mai MD Account Liaison: Signed Normal [facility] Chloride assayOrdered By: Magy Mai on 12-08-2024 Chloride [Moles/Vol] 102 mmol/L 98-108 [facility] Comprehensive Metabolic Prof ilon 12-08-2024 Albumin [Mass/Vol] 4.3 g/dL Normal 3.5-5.0 [facility] Comment on above: Performed By: #### L 500.4100, L3410.9994, L501.9520, L3400.4600, L501.9985, L3410.9992, L500.4050 #### [facility] [address] [place], [address] Albumin/Globulin [Mass ratio] 1.5 {ratio} Normal 0.9-2.4 [facility] Comment on above: Performed By: #### L 500.4100, L3410.9994, L501.9520, L3400.4600, L501.9985, L3410.9992, L500.4050 #### [facility] [address] [place], [place], [address] ALK PHOS 145 U/L High 35-104 [facility] Comment on above: Performed By: #### L 500.4100, L3410.9994, L501.9520, L3400.4600, L501.9985, L3410.9992, L500.4050 #### [facility] [address] [place], [place], [address] ALT [Catalytic activity/Vol] 29 U/L Normal <=34 [facility] Comment on above: Performed By: #### L 500.4100, L3410.9994, L501.9520, L3400.4600, L501.9985, L3410.9992, L500.4050 #### [facility] [address] [place], [address] AST [Catalytic activity/Vol] 30 U/L Normal <=31 [facility] Comment on above: Performed By: #### L 500.4100, L3410.9994, L501.9520, L3400.4600, L501.9985, L3410.9992, L500.4050 #### [facility] [address] [place], [place], [address] Bilirubin [Mass/Vol] 0.29 mg/dL Normal 0.00-1.30 [facility] Comment on above: Performed By: #### L 500.4100, L3410.9994, L501.9520, L3400.4600, L501.9985, L3410.9992, L500.4050 #### [facility] [address] [place], [address] (865) BUN/CRE 14.0 RATIO Normal 10-20 [facility] Comment on above: Performed By: #### L 500.4100, L3410.9994, L501.9520, L3400.4600, L501.9985, L3410.9992, L500.4050 #### [facility] [address] [place], [address] Calcium [Mass/Vol] 9.3 mg/dL Normal 7.6-11.0 [facility] Comment on above: Performed By: #### L 500.4100, L3410.9994, L501.9520, L3400.4600, L501.9985, L3410.9992, L500.4050 #### [facility] [address] [place], [address] Chloride [Moles/Vol] 102 mmol/L Normal 98-108 [facility] Comment on above: Performed By: #### L 500.4100, L3410.9994, L501.9520, L3400.4600, L501.9985, L3410.9992, L500.4050 #### [facility] [address] [place], [address] CO2 [Moles/Vol] 25.5 mmol/L Normal 21.0-32.0 [facility] Comment on above: Performed By: #### L 500.4100, L3410.9994, L501.9520, L3400.4600, L501.9985, L3410.9992, L500.4050 #### [facility] [address] [place], [address] Creatinine [Mass/Vol] 0.65 mg/dL Low 0.70-1.20 [facility] Comment on above: Performed By: #### L 500.4100, L3410.9994, L501.9520, L3400.4600, L501.9985, L3410.9992, L500.4050 #### [facility] [address] [place], [address] ECRCL 95.86 ml/min Normal 50-250 [facility] Comment on above: Performed By: #### L 500.4100, L3410.9994, L501.9520, L3400.4600, L501.9985, L3410.9992, L500.4050 #### [facility] [address], [address] GAP 12 Normal 5-15 [facility] Comment on above: Performed By: #### L 500.4100, L3410.9994, L501.9520, L3400.4600, L501.9985, L3410.9992, L500.4050 #### [facility] [address] [place], [address] GFR/1.73 sq M.predicted among non-blacks MDRD (S/P/Bld) [Vol rate/Area] 107 mL/min/{1.73_m2} Normal >60 [facility] Comment on above: Result Comment: mL/m in/1.73m2 CKD-EPI Creatinine Equation (2020) Performed By: #### L 500.4100, L3410.9994, L501.9520, L3400.4600, L501.9985, L3410.9992, L500.4050 #### [facility] [address], [address] Globulin (S) [Mass/Vol] 2.9 g/dL Normal 2.2-4.2 [facility] Comment on above: Performed By: #### L 500.4100, L3410.9994, L501.9520, L3400.4600, L501.9985, L3410.9992, L500.4050 #### [facility] [address] [place], [address] Glucose [Mass/Vol] 113 mg/dL High 70-99 [facility] Comment on above: Performed By: #### L 500.4100, L3410.9994, L501.9520, L3400.4600, L501.9985, L3410.9992, L500.4050 #### [facility] [address] [place], [address] Potassium [Moles/Vol] 4.2 mmol/L Normal 3.3-5.1 [facility] Comment on above: Performed By: #### L 500.4100, L3410.9994, L501.9520, L3400.4600, L501.9985, L3410.9992, L500.4050 #### [facility] [address] [place], [address] Sodium [Moles/Vol] 140 mmol/L Normal 133-145 [facility] Comment on above: Performed By: #### L 500.4100, L3410.9994, L501.9520, L3400.4600, L501.9985, L3410.9992, L500.4050 #### [facility] [address], [address] T PROT 7.2 g/dL Normal 5.9-8.4 [facility] Comment on above: Performed By: #### L 500.4100, L3410.9994, L501.9520, L3400.4600, L501.9985, L3410.9992, L500.4050 #### [facility] [address] [place], [address] Urea nitrogen [Mass/Vol] 9 mg/dL Normal 4-19 [facility] Comment on above: Performed By: #### L 500.4100, L3410.9994, L501.9520, L3400.4600, L501.9985, L3410.9992, L500.4050 #### [facility] [address] 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 She was prescribed azithromycin. Her fifth [...] similar symptoms: Yes Recent Illness/Hospitalization: Yes PFSH [facility] Medical History Immunoglobulin deficiency Mass of [...] Method R (more content not included)... Normal [facility] Eosinophil percentageOrdered By: Mike Mai on 12-08-2024 Eosinophils/100 WBC (Bld) 0.7 % 0-5 [facility] Erythrocyte distribution wid th (RBC) [Ratio]Ordered By: Mike Mai on 12-08-2024 Erythrocyte distribution width (RBC) [Entitic vol] 45.0 fL High 35.1-43.9 [facility] Erythrocyte distribution wid th ratioOrdered By: Mike Mai on 12-08-2024 Erythrocyte distribution width (RBC) [Ratio] 15.3 % High 11.6-14.6 [facility] Erythrocyte distribution wid th standard deviationOrdered By: Mike Mai on 12-08-2024 Erythrocyte distribution width (RBC) [Ratio] 45.0 fl High 35.1-43.9 [facility] Estimation of creatinine boby aranceOrdered By: Mike Mai on 12-08-2024 Estimated Creatinine Clearance Calc 95.86 ml/min 50-250 [facility] GFR/1.73 sq M.predicted juan carlos g non-blacks MDRD (S/P/Bld) [Vol rate/Area]Ordered By: Mike Mai on 12-08-2024 Estimated GFR (MDRD) Non-Af Amer 107 >60 [facility] Comment on above: mL/min/1.73m2 CKD-EP I Creatinine Equation (2020) Glomerular filtration rate ( GFR) estimation/1.73 sq m using serum, plasma, or whole bOrdered By: Mike Mai on 12-08-2024 GFR/1.73 sq M.predicted among non-blacks MDRD (S/P/Bld) [Vol rate/Area] 107 mL/min/{1.73_m2} >60 [facility] [facility] Comment on above: mL/min/1.73m2 CKD-EP I Creatinine Equation (2020) Hematocrit Auto (Bld) [Volum e fraction]Ordered By: Mike Mai on 12-08-2024 Hematocrit (Bld) [Volume fraction] 39.6 % 37-47 [facility] Hemoglobin measurementOrdere d By: Mike Mai on 12-08-2024 Hemoglobin (Bld) [Mass/Vol] 13.4 g/dL 12.0-15.0 [facility] Immature granulocytes/100 WB C Auto (Bld)Ordered By: Mike Mai on 12-08-2024 Immature granulocytes/100 WBC (Bld) 0.500 % 0.0-0.9 [facility] Comment on above: IG% - Immature Granu locytes (promyelocytes, myelocytes and metamyelocytes) > 1% indicates that a LEFT SHIFT is Present. Influenza virus A and B and SARS-CoV-2 (COVID-19) and Respiratory syncytial virus RNAOrdered By: Mike Mai on 12-08-2024 SARS-CoV-2 (COVID-19) RNA MICHELLE+probe Ql (Unsp spec) [facility] - Chemistry and C hemistry - challengeOrdered By: Mike Mai on 12-08-2024 AST [Catalytic activity/Vol] 30 U/L <32 [facility] Lactic Acidon 12-08-2024 Lactate [Moles/Vol] 1.3 mmol/L Normal 0.0-2.0 [facility] Comment on above: Order Comment: Y Performed By: #### L 500.4100, L3410.9994, L501.9520, L3400.4600, L501.9985, L3410.9992, L500.4050 #### [facility] [address] [place], [address] Lactic acid measurementOrder ed By: Mike Mai on 12-08-2024 Lactate [Moles/Vol] 1.3 mmol/L 0.0-2.0 [facility] Lymphocytes Auto (Unsp spec) [#/Vol]Ordered By: Mike Mai on 12-08-2024 Lymphocytes (Bld) [#/Vol] 3.83 10*3/uL 0.83-4.51 [facility] Lymphocytes/100 WBC Auto (Un sp spec)Ordered By: Mike Mai on 12-08-2024 Lymphocytes/100 WBC (Bld) 21.5 % 19-41 [facility] M100.678on 12-08-2024 M100.678 SARS-CoV-2 (COVID 19 ) Negative INFLUENZA A Negative INFLUENZA B Negative RSV PCR Negative Normal [facility] Comment on above: Performed By: #### L 500.4100, L3410.9994, L501.9520, L3400.4600, L501.9985, L3410.9992, L500.4050 #### [facility] [address] [place], [address] MCV (mean corpuscular volume ) determinationOrdered By: Mike Mai on 12-08-2024 MCV (RBC) [Entitic vol] 80.8 fL Low 81-99 [facility] Mean corpuscular hemoglobin (MCH) determinationOrdered By: Mike Mai on 12-08-2024 MCH (RBC) [Entitic mass] 27.3 pg 27.0-32.0 [facility] Mean corpuscular hemoglobin concentration (MCHC) determinationOrdered By: Mike Mai on 12-08-2024 MCHC (RBC) [Mass/Vol] 33.8 g/dL 32-36 [facility] Mean platelet volume determi nationOrdered By: Mike Mai on 12-08-2024 Platelet mean volume (Bld) [Entitic vol] 9.6 fL 6.2-12.0 [facility] Monocyte percentageOrdered B y: Mike Mai on 12-08-2024 Monocytes/100 WBC (Bld) 7.8 % 0-10 [facility] Neutrophil percentageOrdered By: Mike Mai on 12-08-2024 Neutrophils/100 WBC (Bld) 69.1 % 47-70 [facility] Nucleated red blood cell per centageOrdered By: Mike Mai on 12-08-2024 Nucleated RBC/100 WBC (Bld) [Ratio] 0 % 0-5 [facility] Platelet countOrdered By: o Mai on 12-08-2024 Platelets (Bld) [#/Vol] 435 10*3/uL 150-450 [facility] Potassium (Unsp spec) [Mass/ Vol]Ordered By: Mike Mai on 12-08-2024 Potassium [Moles/Vol] 4.2 mmol/L 3.3-5.1 [facility] Potassium measurement (mass/ volume)Ordered By: Mike Mai on 12-08-2024 Potassium (Unsp spec) [Mass/Vol] 4.2 mmol/L 3.3-5.1 [facility] RBC Auto (Bld) [#/Vol]Ordere d By: Mike Mai on 12-08-2024 RBC (Bld) [#/Vol] 4.90 10*6/uL 4.2-5.4 [facility] Serum creatinine measurement (mass/volume)Ordered By: Mike Mai on 12-08-2024 Creatinine [Mass/Vol] 0.65 mg/dL Low 0.70-1.20 [facility] Serum globulin measurementOr dered By: Mike Mai on 12-08-2024 Globulin (S) [Mass/Vol] 2.9 g/dL 2.2-4.2 [facility] Serum glucose measurement (m ass/volume)Ordered By: Mike Mai on 12-08-2024 Glucose [Mass/Vol] 113 mg/dL High 70-99 [facility] Serum or plasma alanine ruby otransferase (ALT) measurementOrdered By: Mike Mai 12-08-2024 ALT [Catalytic activity/Vol] 29 U/L <35 [facility] Serum or plasma albumin sanford urement (mass/volume)Ordered By: Mike Mai on 12-08-2024 Albumin [Mass/Vol] 4.3 g/dL 3.5-5.0 [facility] Serum or plasma albumin/glob ulin mass ratioOrdered By: Mike Mai 12-08-2024 Albumin/Globulin [Mass ratio] 1.5 {ratio} 0.9-2.4 [facility] Serum or plasma alkaline neftali sphatase measurementOrdered By: Mike Mai 12-08-2024 ALP [Catalytic activity/Vol] 145 U/L High 35-104 [facility] Serum or plasma calcium sanford urement (mass/volume)Ordered By: Mike Mai on 12-08-2024 Calcium [Mass/Vol] 9.3 mg/dL 7.6-11.0 [facility] Serum or plasma urea nitroge n measurement (mass/volume)Ordered By: Mike Mai on 12-08-2024 Urea nitrogen [Mass/Vol] 9 mg/dL 4-19 [facility] Sodium levelOrdered By: Mikekylie Mai on 12-08-2024 Sodium [Moles/Vol] 140 mmol/L 133-145 [facility] Total proteinOrdered By: Mikekylie Mai on 12-08-2024 Protein [Mass/Vol] 7.2 g/dL 5.9-8.4 [facility] White blood cell (WBC) count Ordered By: Mikekylie Mai on 12-08-2024 WBC (Bld) [#/Vol] 17.8 10*3/uL High 4.4-11.0 [facility] Respiratory Cultureon 2024 RESPC Streptococcus pneumo niae [...] S Penicillin Islt CELENA 0.12 I Normal [facility] Comment on above: Performed By: #### L 500.4100, L3410.9994, L501.9520, L3400.4600, L501.9985, L3410.9992, L500.4050 #### [facility] [address] [place] [address]. [place], [place], [id number] Gram Stainon 11-25-2024 GS Acceptable Specimen? Yes (<25 Epithelial cells per/lpf) Gram Stain 4+ Gram positive cocci 2+ White Blood Cells 1+ Epithelial cells 4+ Gram positive diplococci 4+ Gram positive rods 1+ Gram negative rods Normal [facility] Comment on above: Performed By: #### L 500.4100, L3410.9994, L501.9520, L3400.4600, L501.9985, L3410.9992, L500.4050 #### [facility] [address] [place], [place], [address] Gram stainOrdered By: Yordan Vanegas on 11-25-2024 Microscopic observation Gram stain Nom (Unsp spec) [facility] Microbial respiratory cultur eOrdered By: Yordan Vanegas on 11-25-2024 Microorganism identified Cx Nom (Unsp spec) Streptococcus pneumoniae Abnormal [facility] Microorganism identified Cx Nom (Unsp spec)Ordered By: Yordan Vanegas on 11-25-2024 Respiratory Culture Streptococcus pneumoniae Abnormal [facility] Culture, Blood (WB)on 2024 CUB Blood cultures x2, f rom two different sites No growth in 5 days. Normal [facility] Comment on above: Performed By: #### L 500.4100, L3410.9994, L501.9520, L3400.4600, L501.9985, L3410.9992, L500.4050 #### [facility] [address] [place], [place], [address] Respiratory Cultureon 2024 RESPC List Antibiotics to [...] S Penicillin Islt CELENA 0.12 I Normal [facility] Comment on above: Performed By: #### L 500.4100, L3410.9994, L501.9520, L3400.4600, L501.9985, L3410.9992, L500.4050 #### [facility] [address] [place], [address] Gram Stainon 11-07-2024 GS List Antibiotics to be Started? doxycycline, cefdinir Acceptable Specimen? Yes (<25 Epithelial cells per/lpf) Gram Stain Rare Gram positive rods 1+ Gram negative diplococci 2+ Gram positive cocci 1+ White Blood Cells No Epithelial cells * This is an amended result. * A prior result that was reported as final has been changed. 11/08/24 0744 by HUE [facility] Comment on above: Performed By: #### L 500.4100, L3410.9994, L501.9520, L3400.4600, L501.9985, L3410.9992, L500.4050 #### [facility] [address] [place], [place], [id number] Legionella Antigen Urineon 0 11-07-2024 LEGU URINE, CLEAN CATCH Legionella Antigen result interpretation: L pneumo Ag Ur Ql Negative Presumptive negative for Legionella pneumophila serogroup 1 antigen in urine, suggesting no recent or current infection. Legionella Ag, Urine Negative (See interpretation below) [facility] Comment on above: Performed By: #### L 500.4100, L3410.9994, L501.9520, L3400.4600, L501.9985, L3410.9992, L500.4050 #### [facility] [address] [place], [place], [id number] Strep pneumoniae Antig(UR,CS F)on 11-07-2024 STPAG URINE INTERPRETATION Strep pneumoniae Antig(UR,CSF) Strep pneumoniae Antig(UR,CSF) Negative Urine Presumptive negative for pneumococcal pneumonia, suggesting no current or recent pneumococcal infection. Infection due to S pneumoniae cannot be ruled out since the antigen present in the sample may be below the detection limit of the test. Strep pneumo Test Negative URINE (See interpretation below) [facility] Comment on above: Performed By: #### L 500.4100, L3410.9994, L501.9520, L3400.4600, L501.9985, L3410.9992, L500.4050 #### [facility] [address] [place], [address] 12 Lead EKGon 11-06-2024 12 Lead EKG [facility] Cardiovascular Services [address] [place] [address] 12 Lead EKG 11/06/24 2218 MR#: [id number] Acct: [id number] Name: OFE GIMENEZ Rep #: [id number] : 1975 49 From: Balta Whipple MD [...] was found Confirmed by BALTA WHIPPLE MD ([id number]), image editor KARLO DIAZ ([id number]) on 11/11/2024 7:33:43 AM Referred By: Yordan Vanegas Confirmed By: BALTA WHIPPLE MD 11/11/24 0733 Date Balta Whipple MD CC: Dr. Yordan Vanegas DO; Dr. Yarelis Fitzpatrick DO Signed Normal [facility] Absolute lymphocyte countOrd ered By: Yordan Vanegas on 11-06-2024 Lymphocytes Auto (Unsp spec) [#/Vol] 2.98 10*3/uL 0.83-4.51 [facility] Absolute neutrophil countOrd ered By: Yordan Vanegas on 11-06-2024 Neutrophils (Bld) [#/Vol] 15.7 10*3/uL High 2.0-7.7 [facility] Anion gap in Serum or Plasma Ordered By: Yordan Vanegas on 11-06-2024 Anion gap [Moles/Vol] 12 mmol/L 5- [facility] Automated lymphocyte count a s percentage of total leukocytesOrdered By: Yordan Vanegas on 11-06-2024 Lymphocytes/100 WBC Auto (Unsp spec) 14.8 % Low [facility] BUN/creatinine ratioOrdered By: Yordan Vanegas on 11-06-2024 Urea nitrogen/Creatinine [Mass ratio] 15.6 mg/mg - [facility] Basophil percentageOrdered B y: Yordan Vanegas on 11-06-2024 Basophils/100 WBC (Bld) 0.5 % 0- [facility] Bilirubin Test strip Ql (U)O rdered By: Yordan Vanegas on 11-06-2024 Bilirubin Ql (U) Negative Negative [facility] Bilirubin, totalOrdered By: Yordan Vanegas on 11-06-2024 Bilirubin [Mass/Vol] 0.24 mg/dL 0.00-1.30 [facility] Blood cultureOrdered By: Frantz Vanegas on 11-06-2024 Bacteria identified Cx Nom (Bld) No growth in 5 days. [facility] Bacteria identified Cx Nom (Bld) No growth in 5 days. [facility] CBC W/Diff, Automatedon 10-19 Absolute Lymph 2.98 X10 3/uL Normal 0.83-4.51 [facility] Comment on above: Performed By: #### L 500.4100, L3410.9994, L501.9520, L3400.4600, L501.9985, L3410.9992, L500.4050 #### [facility] [address] [place], [place], [id number] Absolute Neut 15.7 X10 3/uL High 2.0-7.7 [facility] Comment on above: Performed By: #### L 500.4100, L3410.9994, L501.9520, L3400.4600, L501.9985, L3410.9992, L500.4050 #### [facility] [address] [place], [address] Basophils/100 WBC (Bld) 0.5 % Normal 0-1 [facility] Comment on above: Performed By: #### L 500.4100, L3410.9994, L501.9520, L3400.4600, L501.9985, L3410.9992, L500.4050 #### [facility] [address] [place], [address] Eosinophils/100 WBC (Bld) 0.2 % Normal 0-5 [facility] Comment on above: Performed By: #### L 500.4100, L3410.9994, L501.9520, L3400.4600, L501.9985, L3410.9992, L500.4050 #### [facility] [address] [place], [address] Erythrocyte distribution width (RBC) [Ratio] 14.4 % Normal 11.6-14.6 [facility] Comment on above: Performed By: #### L 500.4100, L3410.9994, L501.9520, L3400.4600, L501.9985, L3410.9992, L500.4050 #### [facility] [address] [place], [address] Hematocrit (Bld) [Volume fraction] 37.9 % Normal 37-47 [facility] Comment on above: Performed By: #### L 500.4100, L3410.9994, L501.9520, L3400.4600, L501.9985, L3410.9992, L500.4050 #### [facility] [address] [place], [address] Hemoglobin (Bld) [Mass/Vol] 13.1 g/dL Normal 12.0-15.0 [facility] Comment on above: Performed By: #### L 500.4100, L3410.9994, L501.9520, L3400.4600, L501.9985, L3410.9992, L500.4050 #### [facility] [address] [place], [address] IG% 0.500 Normal 0.0-0.9 [facility] Comment on above: Result Comment: IG% - Immature Granulocytes (promyelocytes, myelocytes and metamyelocytes) > 1% indicates that a LEFT SHIFT is Present. Performed By: #### L 500.4100, L3410.9994, L501.9520, L3400.4600, L501.9985, L3410.9992, L500.4050 #### [facility] [address] [place], [address] Lymphocytes/100 WBC (Bld) 14.8 % Low 19-41 [facility] Comment on above: Performed By: #### L 500.4100, L3410.9994, L501.9520, L3400.4600, L501.9985, L3410.9992, L500.4050 #### [facility] [address] [place], [address] MCH (RBC) [Entitic mass] 28.2 pg Normal 27.0-32.0 [facility] Comment on above: Performed By: #### L 500.4100, L3410.9994, L501.9520, L3400.4600, L501.9985, L3410.9992, L500.4050 #### [facility] [address] [place], [address] MCHC (RBC) [Mass/Vol] 34.6 g/dL Normal 32-36 [facility] Comment on above: Performed By: #### L 500.4100, L3410.9994, L501.9520, L3400.4600, L501.9985, L3410.9992, L500.4050 #### [facility] [address] [place], [address] MCV (RBC) [Entitic vol] 81.5 fL Normal 81-99 [facility] Comment on above: Performed By: #### L 500.4100, L3410.9994, L501.9520, L3400.4600, L501.9985, L3410.9992, L500.4050 #### [facility] [address] [place], [address] Monocytes/100 WBC (Bld) 6.4 % Normal 0-10 [facility] Comment on above: Performed By: #### L 500.4100, L3410.9994, L501.9520, L3400.4600, L501.9985, L3410.9992, L500.4050 #### [facility] [address] [place], [address] Neutrophils/100 WBC (Bld) 77.6 % High 47-70 [facility] Comment on above: Performed By: #### L 500.4100, L3410.9994, L501.9520, L3400.4600, L501.9985, L3410.9992, L500.4050 #### [facility] [address] [place], [address] Nucleated RBC (Bld) [#/Vol] 0 10*3/uL Normal 0-5 [facility] Comment on above: Performed By: #### L 500.4100, L3410.9994, L501.9520, L3400.4600, L501.9985, L3410.9992, L500.4050 #### [facility] [address] [place], [address] Platelet mean volume (Bld) [Entitic vol] 9.6 fL Normal 6.2-12.0 [facility] Comment on above: Performed By: #### L 500.4100, L3410.9994, L501.9520, L3400.4600, L501.9985, L3410.9992, L500.4050 #### [facility] [address] [place], [address] Platelets (Bld) [#/Vol] 536 10*3/uL High 150-450 [facility] Comment on above: Performed By: #### L 500.4100, L3410.9994, L501.9520, L3400.4600, L501.9985, L3410.9992, L500.4050 #### [facility] [address] [place], [address] RBC (Bld) [#/Vol] 4.65 10*6/uL Normal 4.2-5.4 [facility] Comment on above: Performed By: #### L 500.4100, L3410.9994, L501.9520, L3400.4600, L501.9985, L3410.9992, L500.4050 #### [facility] [address] [place], [address] RDW SD 42.3 fl Normal 35.1-43.9 [facility] Comment on above: Performed By: #### L 500.4100, L3410.9994, L501.9520, L3400.4600, L501.9985, L3410.9992, L500.4050 #### [facility] [address] [place], [address] WBC (Bld) [#/Vol] 20.2 10*3/uL High 4.4-11.0 [facility] Comment on above: Performed By: #### L 500.4100, L3410.9994, L501.9520, L3400.4600, L501.9985, L3410.9992, L500.4050 #### [facility] [address] [place], [address] CTA Chest W/WO Contraston CTA Chest W/WO Contrast [facility] Imaging Services [address] [place] [address] CTA Chest W/WO Contrast MR#: [id number] Acct: [id number] Name: OFE GIMENEZ Rep #: [id number] : 1975 F 49 From: Zaki landeros MD PCP: Dr. Yarelis Fitzpatrick, DO Status: REG ER Study: CTA Chest W/WO Contrast Date of Exam: 11/06/24 Exam# [id number] Ordering Dr: Yordan Vanegas DO PROCEDURE: CTA [...] multifocal pneumonia. Reading Location: [facility] CC: Dr. oYrdan Vanegas, DO; Dr. Yarelis Fitzpatrick DO Account Liaison: Signed Normal [facility] Carbon dioxide, total [Moles /volume] in Central venous bloodOrdered By: Yordan Vanegas on 11-06-2024 CO2 [Moles/Vol] 23.7 mmol/L 21.0-32.0 [facility] Chloride assayOrdered By: Gregory Vanegas on 11-06-2024 Chloride [Moles/Vol] 104 mmol/L 98-108 [facility] Comprehensive Metabolic Prof ilon 11-06-2024 Albumin [Mass/Vol] 4.2 g/dL Normal 3.5-5.0 [facility] Comment on above: Performed By: #### L 500.4100, L3410.9994, L501.9520, L3400.4600, L501.9985, L3410.9992, L500.4050 #### [facility] [address] [place], [address] Albumin/Globulin [Mass ratio] 1.5 {ratio} Normal 0.9-2.4 [facility] Comment on above: Performed By: #### L 500.4100, L3410.9994, L501.9520, L3400.4600, L501.9985, L3410.9992, L500.4050 #### [facility] [address] [place], [address] ALK PHOS 94 U/L Normal 35-104 [facility] Comment on above: Performed By: #### L 500.4100, L3410.9994, L501.9520, L3400.4600, L501.9985, L3410.9992, L500.4050 #### [facility] [address] [place], [address] ALT [Catalytic activity/Vol] 21 U/L Normal <=34 [facility] Comment on above: Performed By: #### L 500.4100, L3410.9994, L501.9520, L3400.4600, L501.9985, L3410.9992, L500.4050 #### [facility] [address] [place], [address] AST [Catalytic activity/Vol] 26 U/L Normal <=31 [facility] Comment on above: Performed By: #### L 500.4100, L3410.9994, L501.9520, L3400.4600, L501.9985, L3410.9992, L500.4050 #### [facility] [address] [place], [address] Bilirubin [Mass/Vol] 0.24 mg/dL Normal 0.00-1.30 [facility] Comment on above: Performed By: #### L 500.4100, L3410.9994, L501.9520, L3400.4600, L501.9985, L3410.9992, L500.4050 #### [facility] [address] [place], [address] BUN/CRE 15.6 RATIO Normal 10-20 [facility] Comment on above: Performed By: #### L 500.4100, L3410.9994, L501.9520, L3400.4600, L501.9985, L3410.9992, L500.4050 #### [facility] [address] [place], [address] Calcium [Mass/Vol] 9.4 mg/dL Normal 7.6-11.0 [facility] Comment on above: Performed By: #### L 500.4100, L3410.9994, L501.9520, L3400.4600, L501.9985, L3410.9992, L500.4050 #### [facility] [address] [place], [address] Chloride [Moles/Vol] 104 mmol/L Normal 98-108 [facility] Comment on above: Performed By: #### L 500.4100, L3410.9994, L501.9520, L3400.4600, L501.9985, L3410.9992, L500.4050 #### [facility] [address] [place], [address] CO2 [Moles/Vol] 23.7 mmol/L Normal 21.0-32.0 [facility] Comment on above: Performed By: #### L 500.4100, L3410.9994, L501.9520, L3400.4600, L501.9985, L3410.9992, L500.4050 #### [facility] [address] [place], [address] Creatinine [Mass/Vol] 0.77 mg/dL Normal 0.70-1.20 [facility] Comment on above: Performed By: #### L 500.4100, L3410.9994, L501.9520, L3400.4600, L501.9985, L3410.9992, L500.4050 #### [facility] [address] [place], [address] ECRCL 80.92 ml/min Normal 50-250 [facility] Comment on above: Performed By: #### L 500.4100, L3410.9994, L501.9520, L3400.4600, L501.9985, L3410.9992, L500.4050 #### [facility] [address] [place], [address] GAP 12 Normal 5-15 [facility] Comment on above: Performed By: #### L 500.4100, L3410.9994, L501.9520, L3400.4600, L501.9985, L3410.9992, L500.4050 #### [facility] [address] [place], [address] GFR/1.73 sq M.predicted among non-blacks MDRD (S/P/Bld) [Vol rate/Area] 94 mL/min/{1.73_m2} Normal >60 [facility] Comment on above: Result Comment: mL/m in/1.73m2 CKD-EPI Creatinine Equation (2020) Performed By: #### L 500.4100, L3410.9994, L501.9520, L3400.4600, L501.9985, L3410.9992, L500.4050 #### [facility] [address] [place], [address] Globulin (S) [Mass/Vol] 2.7 g/dL Normal 2.2-4.2 [facility] Comment on above: Performed By: #### L 500.4100, L3410.9994, L501.9520, L3400.4600, L501.9985, L3410.9992, L500.4050 #### [facility] [address] [place], [address] Glucose [Mass/Vol] 139 mg/dL High 70-99 [facility] Comment on above: Performed By: #### L 500.4100, L3410.9994, L501.9520, L3400.4600, L501.9985, L3410.9992, L500.4050 #### [facility] [address] [place], [address] Potassium [Moles/Vol] 3.7 mmol/L Normal 3.3-5.1 [facility] Comment on above: Performed By: #### L 500.4100, L3410.9994, L501.9520, L3400.4600, L501.9985, L3410.9992, L500.4050 #### [facility] [address] [place], [address] Sodium [Moles/Vol] 140 mmol/L Normal 133-145 [facility] Comment on above: Performed By: #### L 500.4100, L3410.9994, L501.9520, L3400.4600, L501.9985, L3410.9992, L500.4050 #### [facility] [address] [place], [address] T PROT 6.9 g/dL Normal 5.9-8.4 [facility] Comment on above: Performed By: #### L 500.4100, L3410.9994, L501.9520, L3400.4600, L501.9985, L3410.9992, L500.4050 #### [facility] [address] [place], [address] Urea nitrogen [Mass/Vol] 12 mg/dL Normal 4-19 [facility] Comment on above: Performed By: #### L 500.4100, L3410.9994, L501.9520, L3400.4600, L501.9985, L3410.9992, L500.4050 #### [facility] [address] [place], [address] Emergency Department Summary on 11-06-2024 Emergency Department Summary [facility] Medical Records Department [address] [place] [address] Emergency Department Summary 11/06/24 MR#: [id number] Acct: [id number] Name: OFE GIMENEZ Rep #: [id number] : 1975 49 From: Yordan Vanegas DO PCP: Dr. Yarelis Fitzpatrick DO Status:REG ER Location: ED ADDENDUM by Dr. Yordan Vanegas DO on 11/06/24 at 2330 Update: After prescriptions were sent plan discussed with patient she is concerned that doxycycline upsets her stomach. Therefore I will change her to azithromycin. 11/06/24 4160 Cosigner Signature (if applicable): cc: Dr. Yarelis Fitzpatrick, * Signed HPI History of Present Illness Chief Complaint: General Illness Informant: patient and spouse/S.O. Narrative Narrative: 49-year-old female presenting to the emergency room with chest pain cough change in sputum and bodyaches. 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 In September of this [...] home oxygen. She is a lifelong non-smoker. [facility] Medical History (Updated 11/06/24 @ 23:10 [...] and mois (more content not included)... Normal [facility] Eosinophil percentageOrdered By: Yordan Vanegas on 11-06-2024 Eosinophils/100 WBC (Bld) 0.2 % 0-5 [facility] Epithelial cells.squamous LM Ql (Urine sed)Ordered By: Yordan Vanegas on 11-06-2024 Epithelial cells.squamous LM.HPF (Urine sed) [#/Area] 0 /[HPF] 5-10 [facility] Erythrocyte distribution wid th ratioOrdered By: Yordan Vanegas on 11-06-2024 Erythrocyte distribution width (RBC) [Ratio] 14.4 % 11.6-14.6 [facility] Erythrocyte distribution wid th standard deviationOrdered By: Yordan Vanegas on 11-06-2024 Erythrocyte distribution width (RBC) [Entitic vol] 42.3 fL 35.1-43.9 [facility] Erythrocyte distribution width (RBC) [Ratio] 42.3 fl 35.1-43.9 [facility] Estimation of creatinine boby aranceOrdered By: Yordan Vanegas on 11-06-2024 Estimated Creatinine Clearance Calc 80.92 ml/min 50-250 [facility] GFR/1.73 sq M.predicted juan carlos g non-blacks MDRD (S/P/Bld) [Vol rate/Area]Ordered By: Yordan Vaengas on 11-06-2024 Estimated GFR (MDRD) Non-Af Amer 94 >60 [facility] Comment on above: mL/min/1.73m2 CKD-EP I Creatinine Equation (2020) Glomerular filtration rate ( GFR) estimation/1.73 sq m using serum, plasma, or whole bOrdered By: Yordan Vanegas on 11-06-2024 GFR/1.73 sq M.predicted among non-blacks MDRD (S/P/Bld) [Vol rate/Area] 94 mL/min/{1.73_m2} >60 [facility] Comment on above: mL/min/1.73m2 CKD-EP I Creatinine Equation (2020) Glucose Ql (U)Ordered By: Gregory Vanegas on 11-06-2024 Urine Glucose (UA) Normal mg/dl Normal [facility] Gram stainOrdered By: Yordan Vanegas on 11-06-2024 Microscopic observation Gram stain Nom (Unsp spec) [facility] Hematocrit Auto (Bld) [Volum e fraction]Ordered By: Yordan Vanegas on 11-06-2024 Hematocrit (Bld) [Volume fraction] 37.9 % 37-47 [facility] Hemoglobin measurementOrdere d By: Yordan Vanegas on 11-06-2024 Hemoglobin (Bld) [Mass/Vol] 13.1 g/dL 12.0-15.0 [facility] Immature granulocytes/100 WB C Auto (Bld)Ordered By: Yordan Vanegas on 11-06-2024 Immature granulocytes/100 WBC (Bld) 0.500 % 0.0-0.9 [facility] Comment on above: IG% - Immature Granu locytes (promyelocytes, myelocytes and metamyelocytes) > 1% indicates that a LEFT SHIFT is Present. Influenza virus A and B and SARS-CoV-2 (COVID-19) and Respiratory syncytial virus RNAOrdered By: Yordan Vanegas on 11-06-2024 SARS-CoV-2 (COVID-19) RNA MICHELLE+probe Ql (Unsp spec) [facility] Ketones Test strip Ql (U)Ord ered By: Yordan Vanegas on 11-06-2024 Ketones Ql (U) Negative Negative [facility] L. pneumophila Ag Ql (U)Orde red By: Yordan Vanegas on 11-06-2024 Legionella Antigen [facility] L501.4021on 11-06-2024 Trop T High Sen 7 ng/L Normal <=14 [facility] Comment on above: Performed By: #### L 501.4021 #### [facility] [address] [place], [place] [address], [address] Laboratory - Chemistry and C hemistry - challengeOrdered By: Yordan Vanegas on 11-06-2024 AST [Catalytic activity/Vol] 26 U/L <32 [facility] Lymphocytes Auto (Unsp spec) [#/Vol]Ordered By: Yordan Vanegas on 11-06-2024 Lymphocytes (Bld) [#/Vol] 2.98 10*3/uL 0.83-4.51 [facility] Lymphocytes/100 WBC Auto (Un sp spec)Ordered By: Yordan Vanegas on 11-06-2024 Lymphocytes/100 WBC (Bld) 14.8 % Low 19-41 [facility] M100.678on 11-06-2024 M100.678 Pending SARS-CoV-2 (COVID 19) Negative INFLUENZA A Negative INFLUENZA B Negative RSV PCR Negative Normal [facility] Comment on above: Performed By: #### L 500.4100, L3410.9994, L501.9520, L3400.4600, L501.9985, L3410.9992, L500.4050 #### [facility] [address] [place], [address] MCV (mean corpuscular volume ) determinationOrdered By: Yordan Vanegas on 11-06-2024 MCV (RBC) [Entitic vol] 81.5 fL 81-99 [facility] Mean corpuscular hemoglobin (MCH) determinationOrdered By: Yordan Vanegas on 11-06-2024 MCH (RBC) [Entitic mass] 28.2 pg 27.0-32.0 [facility] Mean corpuscular hemoglobin concentration (MCHC) determinationOrdered By: Yordan Vanegas on 11-06-2024 MCHC (RBC) [Mass/Vol] 34.6 g/dL 32-36 [facility] Mean platelet volume determi nationOrdered By: Yordan Vanegas on 11-06-2024 Platelet mean volume (Bld) [Entitic vol] 9.6 fL 6.2-12.0 [facility] Microbial respiratory cultur eOrdered By: Yordan Vanegas on 11-06-2024 Microorganism identified Cx Nom (Unsp spec) Streptococcus pneumoniae Abnormal [facility] Microorganism identified Cx Nom (Unsp spec)Ordered By: Yordan Vanegas on 11-06-2024 Respiratory Culture Streptococcus pneumoniae Abnormal [facility] Microscopic analysis of urin e for red blood cells (RBC)Ordered By: Yordan Vanegas on 11-06-2024 Microscopic analysis of urine for red blood cells (RBC) 0 SEEN /hpf 0-5 [facility] Urine RBC 0 SEEN /hpf 0-5 [facility] Monocyte percentageOrdered B y: Yordan Vanegas on 11-06-2024 Monocytes/100 WBC (Bld) 6.4 % 0-10 [facility] Mucus LM Ql (Urine sed)Order ed By: Yordan Vanegas on 11-06-2024 Mucus Ql (Urine sed) 0 SEEN /hpf [facility] Neutrophil percentageOrdered By: Yordan Vanegas on 11-06-2024 Neutrophils/100 WBC (Bld) 77.6 % High 47-70 [facility] Nitrite Test strip Ql (U)Ord ered By: Yordan Vanegas on 11-06-2024 Nitrite Ql (U) Negative Negative [facility] No Panel InformationOrdered By: Yordan Vanegas on 11-06-2024 Troponin T High Sensitivity 7 ng/L <14 [facility] Nucleated red blood cell per centageOrdered By: Yordan Vanegas on 11-06-2024 Nucleated RBC/100 WBC (Bld) [Ratio] 0 % 0-5 [facility] Platelet countOrdered By: Gregory Vanegas on 11-06-2024 Platelets (Bld) [#/Vol] 536 10*3/uL High 150-450 [facility] Potassium (Unsp spec) [Mass/ Vol]Ordered By: Yordan Vanegas on 11-06-2024 Potassium [Moles/Vol] 3.7 mmol/L 3.3-5.1 [facility] Potassium measurement (mass/ volume)Ordered By: Yordan Vanegas on 11-06-2024 Potassium (Unsp spec) [Mass/Vol] 3.7 mmol/L 3.3-5.1 [facility] Protein Test strip Ql (U)Ord ered By: Yordan Vanegas on 11-06-2024 Protein Ql (U) Negative Negative [facility] RBC Auto (Bld) [#/Vol]Ordere d By: Yordan Vanegas on 11-06-2024 RBC (Bld) [#/Vol] 4.65 10*6/uL 4.2-5.4 [facility] Serum creatinine measurement (mass/volume)Ordered By: Yordan Vanegas on 11-06-2024 Creatinine [Mass/Vol] 0.77 mg/dL 0.70-1.20 [facility] Serum globulin measurementOr dered By: Yordan Vanegas on 11-06-2024 Globulin (S) [Mass/Vol] 2.7 g/dL 2.2-4.2 [facility] Serum glucose measurement (m ass/volume)Ordered By: Yordan Vanegas on 11-06-2024 Glucose [Mass/Vol] 139 mg/dL High 70-99 [facility] Serum or plasma alanine ruby otransferase (ALT) measurementOrdered By: Yordan Vanegas on 11-06-2024 ALT [Catalytic activity/Vol] 21 U/L <35 [facility] Serum or plasma albumin sanford urement (mass/volume)Ordered By: Yordan Vanegas on 11-06-2024 Albumin [Mass/Vol] 4.2 g/dL 3.5-5.0 [facility] Serum or plasma albumin/glob ulin mass ratioOrdered By: Yordan Vanegas on 11-06-2024 Albumin/Globulin [Mass ratio] 1.5 {ratio} 0.9-2.4 [facility] Serum or plasma alkaline neftali sphatase measurementOrdered By: Yordan Vanegas on 11-06-2024 ALP [Catalytic activity/Vol] 94 U/L 35-104 [facility] Serum or plasma calcium sanford urement (mass/volume)Ordered By: Yordan Vanegas on 11-06-2024 Calcium [Mass/Vol] 9.4 mg/dL 7.6-11.0 [facility] Serum or plasma urea nitroge n measurement (mass/volume)Ordered By: Yordan Vanegas on 11-06-2024 Urea nitrogen [Mass/Vol] 12 mg/dL 4-19 [facility] Sodium levelOrdered By: Jeferson Vanegas on 11-06-2024 Sodium [Moles/Vol] 140 mmol/L 133-145 [facility] Squamous epithelial cells de tection in urine sediment by light microscopyOrdered By: Yordan Vanegas on 11-06-2024 Epithelial cells.squamous LM Ql (Urine sed) 0 SEEN /hpf 5-10 [facility] Streptococcus pneumoniae ant igen assayOrdered By: Yordan Vanegas on 11-06-2024 Streptococcus pneumoniae Antigen (M [facility] Total proteinOrdered By: Frantz Vanegas on 11-06-2024 Protein [Mass/Vol] 6.9 g/dL 5.9-8.4 [facility] Urinalysis, Completeon 11-06 RBC 0 SEEN Normal 0-5 [facility] Comment on above: Order Comment: CLEAN CATCH Performed By: #### L 500.4100, L3410.9994, L501.9520, L3400.4600, L501.9985, L3410.9992, L500.4050 #### [facility] [address] [place], [address] WBC 0-5 SEEN Normal 0-5 [facility] Comment on above: Order Comment: CLEAN CATCH Performed By: #### L 500.4100, L3410.9994, L501.9520, L3400.4600, L501.9985, L3410.9992, L500.4050 #### [facility] [address] [place], [address] BACTERIA 0 SEEN Normal None Seen [facility] Comment on above: Order Comment: CLEAN CATCH Performed By: #### L 500.4100, L3410.9994, L501.9520, L3400.4600, L501.9985, L3410.9992, L500.4050 #### [facility] [address] [place], [address] EPI,SQUAMOUS 0 SEEN Normal 5-10 [facility] Comment on above: Order Comment: CLEAN CATCH Performed By: #### L 500.4100, L3410.9994, L501.9520, L3400.4600, L501.9985, L3410.9992, L500.4050 #### [facility] [address] [place], [address] Mucus Ql (Urine sed) 0 SEEN Normal [facility] Comment on above: Order Comment: CLEAN CATCH Performed By: #### L 500.4100, L3410.9994, L501.9520, L3400.4600, L501.9985, L3410.9992, L500.4050 #### [facility] [place], [address] Urine Legionella pneumophila antigen detectionOrdered By: Yordan Vanegas on 11-06-2024 L. pneumophila Ag Ql (U) [facility] Urine blood detectionOrdered By: Yordan Vanegas on 11-06-2024 Urine Occult Blood Negative Negative [facility] Urine clarityOrdered By: Frantz Vanegas on 11-06-2024 Clarity (U) Clear Clear [facility] Urine color determinationOrd ered By: Yordan Vanegas on 11-06-2024 Color (U) Yellow Yellow [facility] Urine glucose detectionOrder ed By: Yordan Vanegas on 11-06-2024 Glucose Ql (U) Normal mg/dl Normal [facility] Urine leukocyte esterase det ection by dipstickOrdered By: Yordan Vanegas on 11-06-2024 Leukocyte esterase Test strip Ql (U) Negative Negative [facility] Urine pHOrdered By: Yordan carranza on 11-06-2024 pH (U) 8.0 [pH] 5.0 - 8.0 [facility] Urine sediment bacteria coun t by microscopy (number/high power field)Ordered By: Yordan Vanegas on 11-06-2024 Bacteria LM.HPF (Urine sed) [#/Area] 0 /[HPF] None Seen [facility] Urine specific gravity measu rementOrdered By: Yordan Vanegas on 11-06-2024 Specific gravity (U) [Rel density] 1.010 1.002-1.030 [facility] Urine urobilinogen measureme ntOrdered By: Yordan Vanegas on 11-06-2024 Urobilinogen Ql (U) Normal mg/dl Normal [facility] Urobilinogen Ql (U)Ordered B y: Yordan Vanegas on 11-06-2024 Urine Urobilinogen Normal mg/dl Normal [facility] White blood cell (WBC) count Ordered By: Yordan Vanegas on 11-06-2024 WBC (Bld) [#/Vol] 20.2 10*3/uL High 4.4-11.0 [facility] White blood cell countOrdere d By: Yordan Vanegas on 11-06-2024 Urine WBC 0-5 SEEN /hpf 0-5 [facility] White blood cell count 0-5 SEEN /hpf 0-5 [facility] Pulmonary Visit Reporton Pulmonary Visit Report [facility] [address] [place] [address] OFFICE VISIT Date of Service: 11/01/24 MR#: [id number] Acct: [id number] Name: OFE GIMENEZ Rep #: [id number] : 1975 Provider: Patience Del Real NP Age/Sex: 49/F Location: [facility] Status: Signed Assessment and Plan Assessment and [...] shortness of breath. 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 Normal [facility] Chest WITH Contraston 2024 Chest WITH Contrast [facility] [address], [place] [id number] Chest WITH Contrast MR#: [id number] Acct: [id number] Name: OFE GIMENEZ Rep #: [id number] : 1975 F 49 From: Luis doherty MD PCP: Dr. Yarelis Fitzpatrick, DO Status: REG CLI Study: Chest WITH Contrast Date of Exam: 10/15/24 Exam# [id number] Ordering Dr: Kimberly Jacobson FIGURE CLERK-C PROCEDURE: CHEST WITH CONTRAST REASON FOR EXAM: [...] use of iterative reconstruction technique). Reading Location: [id number] CC: DARRYN Jacobson; Dr. Yarelis Fitzpatrick DO Account Liaison: Signed Normal [facility] Respiratory Cultureon 2024 RESPC Streptococcus pneumo [...] S Penicillin Islt CELENA <=0.06 S Normal [facility] Comment on above: Performed By: #### L 500.4100, L3410.9994, L501.9520, L3400.4600, L501.9985, L3410.9992, L500.4050 #### [facility] [address] [place], [place], [id number] Gram Stainon 09-27-2024 GS Acceptable Specimen? Yes (<25 Epithelial cells per/lpf) Gram Stain 2+ Gram positive cocci Rare Gram positive rods 1+ White Blood Cells Normal [facility] Comment on above: Performed By: #### L 500.4100, L3410.9994, L501.9520, L3400.4600, L501.9985, L3410.9992, L500.4050 #### [facility] [address] [place], [place], [id number] Gram stainOrdered By: NAREN Del Real on 09-27-2024 Microscopic observation Gram stain Nom (Unsp spec) [facility] Microbial respiratory cultur eOrdered By: NAREN Del Real on 09-27-2024 Microorganism identified Cx Nom (Unsp spec) Streptococcus pneumoniae Abnormal [facility] Microorganism identified Cx Nom (Unsp spec)Ordered By: NAREN Del Real on 09-27-2024 Respiratory Culture Streptococcus pneumoniae Abnormal [facility] AFP, Tumor Markeron 09-06-19 25 AFP TUMOR OSVALDO 3.1 ng/mL Normal 0.0-9.2 [facility] Comment on above: Order Comment: FIGURE CLERK.CHAD COX ORDERED QTFNALL OTHER LAB FIGURE CLERK.CGRAPROSHAN Result Comment: [employer] Electrochemiluminescence Immunoassay (ECLIA) Values obtained with different assay methods or kits cannot be used interchangeably. Results cannot be interpreted as absolute evidence of the presence or absence of malignant disease. This test is not interpretable in females. Performed at: [address] [id number] Non Clinical Advisor: Ramsey Oleary PhD, Phone: [phone] Performed By: #### L 500.4100, L3410.9994, L501.9520, L3400.4600, L501.9985, L3410.9992, L500.4050 #### [facility] [address] [place], [address] HCG BETA-SUBUNIT QUANT.on HCG B-SUBUNIT 2 mIU/mL Normal . [facility] Comment on above: Order Comment: DX ME DIASTINAL MASSNP.JESSIE ORDERED QTFNALL OTHER LAB FIGURE CLERK.CGRAPORSHA Result Comment: Fema le (Non-) 0 - 5 (Postmenopausal) 0 - 8 Female () Weeks of Gestation 3 6 - 71 4 10 - 750 5 438 - 4009 6 233 - 23930 7 6622 -[phone] 8 03403 -345004 9 80765 -034515 10 16057 -603396 12 81656 -351073 14 15474 - 55488 15 39678 - 94353 16 1015 - 35383 17 3383 - 20751 18 7907 - 56802 Courtney ECLIA methodology Performed at: [address] [id number] Non Clinical Advisor: Ramsey Oleary PhD, Phone: [phone] Performed By: #### L 500.4100, L3410.9994, L501.9520, L3400.4600, L501.9985, L3410.9992, L500.4050 #### [facility] [address] [place], [place], [id number] Quantiferon TB-Gold+on 09-06 QFT MITOGEN KINGA > 10.00 Normal . [facility] Comment on above: Order Comment: FIGURE CLERK.LR UFENER ORDERED QTFNALL OTHER LAB FIGURE CLERK.CGRAHAMN Performed By: #### L 500.4100, L3410.9994, L501.9520, L3400.4600, L501.9985, L3410.9992, L500.4050 #### [facility] [address] [place], [place], [id number] (265) QFT NIL VALUE 0.06 IU/mL Normal . [facility] Comment on above: Order Comment: FIGURE CLERK.LR UFENER ORDERED QTFNALL OTHER LAB FIGURE CLERK.CGRAHAMN Performed By: #### L 500.4100, L3410.9994, L501.9520, L3400.4600, L501.9985, L3410.9992, L500.4050 #### [facility] [address] [place], [place], [address] QFT TB GOLD+ Comment Normal . [facility] Comment on above: Order Comment: FIGURE CLERK.LR UFENER ORDERED QTFNALL OTHER LAB FIGURE CLERK.CGRAHAMN Result Comment: Jesus tiFERON-TB Gold Plus is [...] control for the test. Performed By: #### L 500.4100, L3410.9994, L501.9520, L3400.4600, L501.9985, L3410.9992, L500.4050 #### [facility] [address] [place], [place], [id number] QFT TB POS CRIT Negative Normal Negative [facility] Comment on above: Order Comment: FIGURE CLERK.LR UFENER ORDERED QTFNALL OTHER LAB FIGURE CLERK.CGRAHAMN Result Comment: No r esponse to M [...] gamma. Chemiluminescence immunoassay methodology Performed By: #### L 500.4100, L3410.9994, L501.9520, L3400.4600, L501.9985, L3410.9992, L500.4050 #### [facility] [address] [place], [address] QFT TB1+ AG KINGA 0.07 IU/mL Normal . [facility] Comment on above: Order Comment: FIGURE CLERK.LR UFENER ORDERED QTFNALL OTHER LAB FIGURE CLERK.CGRAHAMN Performed By: #### L 500.4100, L3410.9994, L501.9520, L3400.4600, L501.9985, L3410.9992, L500.4050 #### [facility] [address] [place], [place], [address] QFT TB2+ AG KINGA 0.06 IU/mL Normal . [facility] Comment on above: Order Comment: FIGURE CLERK.LR UFENER ORDERED QTFNALL OTHER LAB FIGURE CLERK.CGRAHAMN Performed By: #### L 500.4100, L3410.9994, L501.9520, L3400.4600, L501.9985, L3410.9992, L500.4050 #### [facility] [address] [place], [address] Absolute lymphocyte countOrd ered By: NAREN Patience Del Real on 09-04-2024 Lymphocytes Auto (Unsp spec) [#/Vol] 2.99 10*3/uL 0.83-4.51 [facility] Absolute neutrophil countOrd ered By: NAREN Patience Dovemanuel on 09-04-2024 Neutrophils (Bld) [#/Vol] 4.1 10*3/uL 2.0-7.7 [facility] Alpha fetoprotein measuremen t as tumor markerOrdered By: NAREN Patience Dovemanuel on 09-04-2024 Tumor Marker Alpha Fetoprotein 3.1 ng/mL 0.0-9.2 [facility] Comment on above: [employer] El ectrochemiluminescence Immunoassay(ECLIA)Values obtained with different assay methods or kits cannotbe used interchangeably. Results cannot be interpreted asabsolute evidence of the presence or absence of malignantdisease.This test is not interpretable in females.Performed at: [facility] [id number] Director: Ramsey Oleary PhD, Phone: [phone] Automated blood erythrocyte countOrdered By: NAREN Patienceankit Del Real on 09-04-2024 RBC (Bld) [#/Vol] 4.45 10*6/uL Normal 4.2-5.4 [facility] Comment on above: Order Comment: WILLIAM COX ORDERED QTFNALL OTHER LAB MIKE Performed By: #### L 500.4100, L3410.9994, L501.9520, L3400.4600, L501.9985, L3410.9992, L500.4050 #### [facility] [address] [place], [place], [address] Automated blood hematocrit ( percentage)Ordered By: NAREN Del Real on 09-04-2024 Hematocrit (Bld) [Volume fraction] 36.8 % Low 37-47 [facility] Comment on above: Order Comment: FIGURE CLERK.LR UFENER ORDERED QTFNALL OTHER LAB FIGURE CLERK.CGRAHAM Performed By: #### L 500.4100, L3410.9994, L501.9520, L3400.4600, L501.9985, L3410.9992, L500.4050 #### [facility] [address] [place], [address] Automated lymphocyte count a s percentage of total leukocytesOrdered By: FIGURE CLERK Patience Del Real on 09-04-2024 Lymphocytes/100 WBC (Bld) 38.3 % Normal - [facility] Comment on above: Order Comment: FIGURE CLERK.LR UFENER ORDERED QTFNALL OTHER LAB FIGURE CLERK.CGRAHAM Performed By: #### L 500.4100, L3410.9994, L501.9520, L3400.4600, L501.9985, L3410.9992, L500.4050 #### [facility] [address] [place], [address] Lymphocytes/100 WBC Auto (Unsp spec) 38.3 % - [facility] Basic Metabolic Profile (BMP )on 09-04-2024 BUN/CRE 11.1 RATIO Normal 10-20 [facility] Comment on above: Order Comment: FIGURE CLERK.LR UFENER ORDERED QTFNALL OTHER LAB FIGURE CLERK.CGRAHAM1 Performed By: #### L 500.4100, L3410.9994, L501.9520, L3400.4600, L501.9985, L3410.9992, L500.4050 #### [facility] [address] [place], [address] CA,Total 8.8 mg/dL Normal 8.5-10.1 [facility] Comment on above: Order Comment: FIGURE CLERK.LR UFENER ORDERED QTFNALL OTHER LAB FIGURE CLERK.CGRAHAM1 Performed By: #### L 500.4100, L3410.9994, L501.9520, L3400.4600, L501.9985, L3410.9992, L500.4050 #### [facility] [address] [place], [address] EST GFR - AA 96 mL/min Normal >60 [facility] Comment on above: Order Comment: FIGURE CLERK.LR UFENER ORDERED QTFNALL OTHER LAB FIGURE CLERK.CGRAHAM1 Result Comment: Afri can Guyanese GFR Calc Performed By: #### L 500.4100, L3410.9994, L501.9520, L3400.4600, L501.9985, L3410.9992, L500.4050 #### [facility] [address] [place], [address] GAP 6 Normal 5-15 [facility] Comment on above: Order Comment: FIGURE CLERK.LR UFENER ORDERED QTFNALL OTHER LAB FIGURE CLERK.CGRAHAM1 Performed By: #### L 500.4100, L3410.9994, L501.9520, L3400.4600, L501.9985, L3410.9992, L500.4050 #### [facility] [address] [place], [address] Basophil percentageOrdered B y: NAREN Sancheznataliyamanuel on 09-04-2024 Basophils/100 WBC (Bld) 1.2 % High 0-1 [facility] Comment on above: Order Comment: FIGURE CLERK.LR UFENER ORDERED QTFNALL OTHER LAB FIGURE CLERK.CGRAHAM Performed By: #### L 500.4100, L3410.9994, L501.9520, L3400.4600, L501.9985, L3410.9992, L500.4050 #### [facility] [address] [place], [address] Bilirubin directOrdered By: NAREN Del Real on 09-04-2024 Bilirubin.direct [Mass/Vol] mg/dL 0.00-0.30 [facility] Bilirubin, totalOrdered By: NAREN Del Real on 09-04-2024 Bilirubin [Mass/Vol] 0.30 mg/dL Normal 0.20-1.00 [facility] Comment on above: For patients on eltr ombopag therapy, use of Dimension [place] TBIL is not recommended. Order Comment: WILLIAM COX ORDERED QTFNALL OTHER LAB MIKE1 Result Comment: For patients on eltrombopag therapy, use of Dimension [place] TBIL is not recommended. Performed By: #### L 500.4100, L3410.9994, L501.9520, L3400.4600, L501.9985, L3410.9992, L500.4050 #### [facility] [address] [place], [place], [id number] Bilirubin.direct [Mass/Vol]O rdered By: NAREN Del Real on 09-04-2024 Direct Bilirubin < 0.05 mg/dL 0.00-0.30 [facility] Blood urea nitrogen (BUN)/cr eatinine ratioOrdered By: NAREN Del Real on 09-04-2024 Urea nitrogen/Creatinine [Mass ratio] 11.1 mg/mg 10- [facility] C-reactive protein measureme nt by high sensitivity methodOrdered By: NAREN Del Real on 09-04-2024 C-Reactive Protein Extended Range 3.30 mg/L High 0.0-3.0 [facility] Comment on above: C-Reactive Protein ( CRP) provides useful information for thediagnosis, therapy and monitoring of inflammatory processesand associated diseases. For the evaluation of Relative Riskfor Cardiovascular Disease, a High Sensitivity CRP (HSCRP)should be ordered. C-reactive protein measurement by high sensitivity method 3.30 mg/L High 0.0-3.0 [facility] Comment on above: C-Reactive Protein ( CRP) provides useful information for thediagnosis, therapy and monitoring of inflammatory processesand associated diseases. For the evaluation of Relative Riskfor Cardiovascular Disease, a High Sensitivity CRP (HSCRP)should be ordered. CBC W/Diff, Automatedon 08-21 Absolute Lymph 2.99 X10 3/uL Normal 0.83-4.51 [facility] Comment on above: Order Comment: WILLIAM COX ORDERED QTFNALL OTHER LAB FIGURE CLERK.CGRAHAM Performed By: #### L 500.4100, L3410.9994, L501.9520, L3400.4600, L501.9985, L3410.9992, L500.4050 #### [facility] [address] [place], [address] Absolute Neut 4.1 X10 3/uL Normal 2.0-7.7 [facility] Comment on above: Order Comment: FIGURE CLERK.LR UFENER ORDERED QTFNALL OTHER LAB FIGURE CLERK.CGRAHAM Performed By: #### L 500.4100, L3410.9994, L501.9520, L3400.4600, L501.9985, L3410.9992, L500.4050 #### [facility] [address] [place], [address] IG% 0.300 Normal 0.0-0.9 [facility] Comment on above: Order Comment: FIGURE CLERK.LR UFENER ORDERED QTFNALL OTHER LAB FIGURE CLERK.CGRAHAM Result Comment: IG% - Immature Granulocytes (promyelocytes, myelocytes and metamyelocytes) > 1% indicates that a LEFT SHIFT is Present. Performed By: #### L 500.4100, L3410.9994, L501.9520, L3400.4600, L501.9985, L3410.9992, L500.4050 #### [facility] [address] [place], [address] Nucleated RBC (Bld) [#/Vol] 0 10*3/uL Normal 0-5 [facility] Comment on above: Order Comment: FIGURE CLERK.LR UFENER ORDERED QTFNALL OTHER LAB FIGURE CLERK.CGRAHAM Performed By: #### L 500.4100, L3410.9994, L501.9520, L3400.4600, L501.9985, L3410.9992, L500.4050 #### [facility] [address] [place], [address] RDW SD 40.9 fl Normal 35.1-43.9 [facility] Comment on above: Order Comment: FIGURE CLERK.LR UFENER ORDERED QTFNALL OTHER LAB FIGURE CLERK.CGRAHAM Performed By: #### L 500.4100, L3410.9994, L501.9520, L3400.4600, L501.9985, L3410.9992, L500.4050 #### [facility] [address] [place], [address] CRPon 09-04-2024 C-REACTIVE PROT 3.30 mg/L High 0.0-3.0 [facility] Comment on above: Order Comment: FIGURE CLERK.LR UFENER ORDERED QTFNALL OTHER LAB FIGURE CLERK.CGRAHAM1 Result Comment: C-Re active Protein (CRP) provides useful information for the diagnosis, therapy and monitoring of inflammatory processes and associated diseases. For the evaluation of Relative Risk for Cardiovascular Disease, a High Sensitivity CRP (HSCRP) should be ordered. Performed By: #### L 500.4100, L3410.9994, L501.9520, L3400.4600, L501.9985, L3410.9992, L500.4050 #### [facility] [address] [place], [place], [phone] Carbon dioxide measurementOr dered By: NAREN Del Real on 09-04-2024 CO2 [Moles/Vol] 30.0 mmol/L Normal 21.0-32.0 [facility] Comment on above: Order Comment: FIGURE CLERK.LR UFENER ORDERED QTFNALL OTHER LAB FIGURE CLERK.CGRAHAM1 Performed By: #### L 500.4100, L3410.9994, L501.9520, L3400.4600, L501.9985, L3410.9992, L500.4050 #### [facility] [address] [place], [address] Chloride measurementOrdered By: NAREN Del Real on 09-04-2024 Chloride [Moles/Vol] 105 mmol/L Normal 98-107 [facility] Comment on above: Order Comment: FIGURE CLERK.LR UFENER ORDERED QTFNALL OTHER LAB FIGURE CLERK.CGRAHAM1 Performed By: #### L 500.4100, L3410.9994, L501.9520, L3400.4600, L501.9985, L3410.9992, L500.4050 #### [facility] [address] [place], [address] Eosinophil percentageOrdered By: NAREN Del Real on 09-04-2024 Eosinophils/100 WBC (Bld) 0.8 % Normal 0-5 [facility] Comment on above: Order Comment: FIGURE CLERK.LR UFENER ORDERED QTFNALL OTHER LAB FIGURE CLERK.CGRAHAM Performed By: #### L 500.4100, L3410.9994, L501.9520, L3400.4600, L501.9985, L3410.9992, L500.4050 #### [facility] [address] [place], [place], [phone] ([phone] Erythrocyte distribution wid th ratioOrdered By: NAREN Del Real on 09-04-2024 Erythrocyte distribution width (RBC) [Ratio] 13.6 % Normal 11.6-14.6 [facility] Comment on above: Order Comment: FIGURE CLERK.LR UFENER ORDERED QTFNALL OTHER LAB FIGURE CLERK.CGRAHAM Performed By: #### L 500.4100, L3410.9994, L501.9520, L3400.4600, L501.9985, L3410.9992, L500.4050 #### [facility] [address] [place], [place], [phone] Erythrocyte distribution wid th standard deviationOrdered By: NAREN Del Real on 09-04-2024 Erythrocyte distribution width (RBC) [Entitic vol] 40.9 fL 35.1-43.9 [facility] Erythrocyte distribution width (RBC) [Ratio] 40.9 fl 35.1-43.9 [facility] Estimated glomerular filtrat ion rate (GFR) AmericanOrdered By: NAREN Del Real on 01-15-2025 Estimated GFR (MDRD) Amer 96 mL/min >60 [facility] Comment on above: GFR Calc Glomerular filtration rate ( GFR) estimationOrdered By: NAREN Patience Del Real on 09-04-2024 GFR/1.73 sq M.predicted among non-blacks MDRD (S/P/Bld) [Vol rate/Area] 79 mL/min/{1.73_m2} Normal >60 [facility] Comment on above: Non- GFR Calc Order Comment: FIGURE CLERK.LR UFENER ORDERED QTFNALL OTHER LAB FIGURE CLERK.CGRAHAM1 Result Comment: Non- GFR Calc Performed By: #### L 500.4100, L3410.9994, L501.9520, L3400.4600, L501.9985, L3410.9992, L500.4050 #### [facility] [address] [place], [address] Estimated GFR (MDRD) Non-Af Amer 79 mL/min >60 [facility] Comment on above: Non- GFR Calc Glucose measurementOrdered B y: NAREN Patience Dovemanuel on 09-04-2024 Glucose [Mass/Vol] 137 mg/dL High 74-106 [facility] Comment on above: Fasting Glucose resu lt greater than or equal to 126 mg/dL suggests DIABETES MELLITUS per A.D.A. criteria. Order Comment: FIGURE CLERK.CHAD UFENER ORDERED QTFNALL OTHER LAB FIGURE CLERK.CGRAHAM1 Result Comment: Fast ing Glucose result greater than or equal to 126 mg/dL suggests DIABETES MELLITUS per A.D.A. criteria. Performed By: #### L 500.4100, L3410.9994, L501.9520, L3400.4600, L501.9985, L3410.9992, L500.4050 #### [facility] [address] [place], [place], [phone] HCG, beta, subunitOrdered By : NAREN Patience Nasima on 09-04-2024 HCG Beta Subunit 2 mIU/mL . [facility] Comment on above: Female (Non- ) 0 - 5 (Postmenopausal) 0 - 8 Female () Weeks of Gestation 3 6 - 71 4 10 - 750 5 217 - 7138 6 158 - 87990 7 3697 -720331 8 77965 -366735 9 51793 -447020 10 06560 -553530 12 86811 -556304 14 03006 - 74878 15 20673 - 28104 16 5814 - 02430 17 8175 - 08179 18 8099 - 89472Jnzfg ECLIA methodologyPerformed at: [facility] [id number] [place], [place] [id number] Director: Ramsey Oleary PhD, Phone: [phone] HCG, beta, subunit 2 mIU/mL . [facility] Comment on above: Female (Non- ) 0 - 5 (Postmenopausal) 0 - 8 Female () Weeks of Gestation 3 6 - 71 4 10 - 750 5 217 - 7138 6 158 - 70039 7 5297 -126737 8 94949 -822121 9 65297 -741951 10 46123 -237103 12 56435 -095052 14 27033 - 64373 15 47021 - 74148 16 9465 - 24881 17 6892 - 38868 18 8099 - 51176Bqouy ECLIA methodologyPerformed at: [facility] [id number] [place], [place] [id number] Director: Ramsey Oleary PhD, Phone: [phone] Hemoglobin (Reticulocytes) [ Entitic mass]Ordered By: NAREN Del Real on 09-04-2024 Reticulocyte Hemoglobin Equivalent 31.5 pg 30-35 [facility] Hemoglobin measurementOrdere d By: NAREN Del Real on 09-04-2024 Hemoglobin (Bld) [Mass/Vol] 12.4 g/dL Normal 12.0-15.0 [facility] Comment on above: Order Comment: WILLIAM COX ORDERED QTFNALL OTHER LAB MIKE Performed By: #### L 500.4100, L3410.9994, L501.9520, L3400.4600, L501.9985, L3410.9992, L500.4050 #### [facility] [address] [place], [place], [phone] Immature granulocytes/100 WB C Auto (Bld)Ordered By: NAREN Del Real on 09-04-2024 Immature granulocytes/100 WBC (Bld) 0.300 % 0.0-0.9 [facility] Comment on above: IG% - Immature Granu locytes (promyelocytes, myelocytes and metamyelocytes) > 1% indicates that a LEFT SHIFT is Present. Immature reticulocyte fracti onOrdered By: NAREN Del Real on 09-04-2024 Immature Reticulocyte Fraction 1.10 % Low 3.00-15.90 [facility] LDHon 09-04-2024 LDH 164 U/L Normal 84-246 [facility] Comment on above: Order Comment: FIGURE CLERK.LR UFENER ORDERED QTFNALL OTHER LAB FIGURE CLERK.CGRAHAM1 Performed By: #### L 500.4100, L3410.9994, L501.9520, L3400.4600, L501.9985, L3410.9992, L500.4050 #### [facility] [address] [place], [place], [id number] Lactate dehydrogenase (LDH) measurementOrdered By: NAREN Del Real on 09-04-2024 LDH [Catalytic activity/Vol] 164 U/L 84-246 [facility] Liver Profileon 09-04-2024 ALK P 106 U/L Normal 45-117 [facility] Comment on above: Order Comment: FIGURE CLERK.LR UFENER ORDERED QTFNALL OTHER LAB FIGURE CLERK.CGRAHAM1 Performed By: #### L 500.4100, L3410.9994, L501.9520, L3400.4600, L501.9985, L3410.9992, L500.4050 #### [facility] [address] [place], [address] D BILI < 0.05 Normal 0.00-0.30 [facility] Comment on above: Order Comment: FIGURE CLERK.LR UFENER ORDERED QTFNALL OTHER LAB FIGURE CLERK.CGRAHAM1 Performed By: #### L 500.4100, L3410.9994, L501.9520, L3400.4600, L501.9985, L3410.9992, L500.4050 #### [facility] [address] [place], [address] T PROT 6.8 g/dL Normal 6.4-8.2 [facility] Comment on above: Order Comment: FIGURE CLERK.CHAD COX ORDERED QTFNALL OTHER LAB FIGURE CLERK.CGRAHAM1 Performed By: #### L 500.4100, L3410.9994, L501.9520, L3400.4600, L501.9985, L3410.9992, L500.4050 #### [facility] [address] [place] [place], [place], [id number] Liver ProfileOrdered By: NAREN Del Real on 09-04-2024 AST [Catalytic activity/Vol] 17 U/L Normal 15-37 [facility] Comment on above: Order Comment: WILLIAM COX ORDERED QTFNALL OTHER LAB FIGURE CLERK.CGRAHAM1 Performed By: #### L 500.4100, L3410.9994, L501.9520, L3400.4600, L501.9985, L3410.9992, L500.4050 #### [facility] [address] [place], [place], [id number] Lymphocytes Auto (Unsp spec) [#/Vol]Ordered By: NAREN Del Real on 09-04-2024 Lymphocytes (Bld) [#/Vol] 2.99 10*3/uL 0.83-4.51 [facility] M. tuberculosis tuberculin s gildardo IFN-g Ql (Bld)Ordered By: NAREN Del Real on 09-04-2024 TB Test (QFT) Antigen 1 0.07 IU/mL . [facility] MCV (mean corpuscular volume ) determinationOrdered By: NAREN Del Real on 09-04-2024 MCV (RBC) [Entitic vol] 82.7 fL Normal 81-99 [facility] Comment on above: Order Comment: FIGURE CLERK.LR UFENER ORDERED QTFNALL OTHER LAB FIGURE CLERK.CGRAHAM Performed By: #### L 500.4100, L3410.9994, L501.9520, L3400.4600, L501.9985, L3410.9992, L500.4050 #### [facility] [address] [place], [address] Mean corpuscular hemoglobin (MCH) determinationOrdered By: NAREN Patience Sanchezleonel on 09-04-2024 MCH (RBC) [Entitic mass] 27.9 pg Normal 27.0-32.0 [facility] Comment on above: Order Comment: FIGURE CLERK.LR UFENER ORDERED QTFNALL OTHER LAB FIGURE CLERK.CGRAHAM Performed By: #### L 500.4100, L3410.9994, L501.9520, L3400.4600, L501.9985, L3410.9992, L500.4050 #### [facility] [address] [place], [address] Mean corpuscular hemoglobin concentration (MCHC) determinationOrdered By: NAREN Patience Sanchezleonel on 09-04-2024 MCHC (RBC) [Mass/Vol] 33.7 g/dL Normal 32-36 [facility] Comment on above: Order Comment: FIGURE CLERK.LR UFENER ORDERED QTFNALL OTHER LAB FIGURE CLERK.CGRAHAM Performed By: #### L 500.4100, L3410.9994, L501.9520, L3400.4600, L501.9985, L3410.9992, L500.4050 #### [facility] [address] [place], [address] Mean platelet volume determi nationOrdered By: NAREN Patience Sanchezleonel on 09-04-2024 Platelet mean volume (Bld) [Entitic vol] 9.0 fL Normal 6.2-12.0 [facility] Comment on above: Order Comment: FIGURE CLERK.LR UFENER ORDERED QTFNALL OTHER LAB FIGURE CLERK.CGRAHAM Performed By: #### L 500.4100, L3410.9994, L501.9520, L3400.4600, L501.9985, L3410.9992, L500.4050 #### [facility] [address] [facility] [place], [address] Monocyte percentageOrdered B y: NAREN Del Real on 09-04-2024 Monocytes/100 WBC (Bld) 7.0 % Normal 0-10 [facility] Comment on above: Order Comment: FIGURE CLERK.LR UFENER ORDERED QTFNALL OTHER LAB FIGURE CLERK.CGRAHAM Performed By: #### L 500.4100, L3410.9994, L501.9520, L3400.4600, L501.9985, L3410.9992, L500.4050 #### [facility] [address] [place], [address] Neutrophil percentageOrdered By: NAREN Del Real on 09-04-2024 Neutrophils/100 WBC (Bld) 52.4 % Normal 47-70 [facility] Comment on above: Order Comment: FIGURE CLERK.LR UFENER ORDERED QTFNALL OTHER LAB FIGURE CLERK.CGRAHAM Performed By: #### L 500.4100, L3410.9994, L501.9520, L3400.4600, L501.9985, L3410.9992, L500.4050 #### [facility] [address] [place], [place], [phone] Nucleated red blood cell per centageOrdered By: NAREN Del Real on 09-04-2024 Nucleated RBC/100 WBC (Bld) [Ratio] 0 % 0-5 [facility] Platelet countOrdered By: NAREN Del Real on 09-04-2024 Platelets (Bld) [#/Vol] 513 10*3/uL High 150-450 [facility] Comment on above: Order Comment: FIGURE CLERK.LR UFENER ORDERED QTFNALL OTHER LAB FIGURE CLERK.CGRAHAM Performed By: #### L 500.4100, L3410.9994, L501.9520, L3400.4600, L501.9985, L3410.9992, L500.4050 #### [facility] [address] [place], [place], [phone] Potassium measurementOrdered By: NAREN Del Real on 09-04-2024 Potassium [Moles/Vol] 3.6 mmol/L Normal 3.5-5.1 [facility] Comment on above: Order Comment: WILLIAM COX ORDERED QTFNALL OTHER LAB FIGURE CLERK.CGRAHAM1 Performed By: #### L 500.4100, L3410.9994, L501.9520, L3400.4600, L501.9985, L3410.9992, L500.4050 #### [facility] [address] [place], [place], [phone] Qualitative QuantiFERON-TB g old in tube testOrdered By: NAREN Del Real on 09-04-2024 M. tuberculosis tuberculin stim IFN-g Ql (Bld) 0.07 IU/mL . [facility] Quantiferon-TB Gold Plus moise tOrdered By: NAREN Del Real on 09-04-2024 TB Test (QFT) Comment . [facility] Comment on above: QuantiFERON-TB Gold Plus [...] Test (QFT) Antigen 2 0.06 IU/mL . [facility] TB Test (QFT) Mitogen > 10.00 IU/mL . [facility] TB Test (QFT) Nil 0.06 IU/mL . [facility] TB Test (QFT) Positive Criteria Negative Negative [facility] Comment on above: No response to [...] 09-04-2024 IM RET FRACTION 1.10 Low 3.00-15.90 [facility] Comment on above: Order Comment: FIGURE CLERK.CHAD COX ORDERED QTFNALL OTHER LAB FIGURE CLERK.CGRAHAM Performed By: #### L 500.4100, L3410.9994, L501.9520, L3400.4600, L501.9985, L3410.9992, L500.4050 #### [facility] [address] [facility] [place], [address] RET-HE 31.5 pg Normal - [facility] Comment on above: Order Comment: FIGURE CLERK.CHAD COX ORDERED QTFNALL OTHER LAB FIGURE CLERK.CGRAHAM Performed By: #### L 500.4100, L3410.9994, L501.9520, L3400.4600, L501.9985, L3410.9992, L500.4050 #### [facility] [address] [place], [address] Retic Count 0.46 Low 0.5-1.5 [facility] Comment on above: Order Comment: FIGURE CLERK.CHAD COX ORDERED QTFNALL OTHER LAB FIGURE CLERK.CGRAPORSHA Performed By: #### L 500.4100, L3410.9994, L501.9520, L3400.4600, L501.9985, L3410.9992, L500.4050 #### [facility] [address] [facility] [place], [address] Reticulocyte hemoglobin equi valent (RET-He) measurementOrdered By: NAREN Del Real on 09-04-2024 Hemoglobin (Reticulocytes) [Entitic mass] 31.5 pg -35 [facility] Reticulocytes Auto (Bld) [#/ Vol]Ordered By: NAREN Del Real on 09-04-2024 Reticulocyte Count 0.46 % Low 0.5-1.5 [facility] Reticulocytes/100 RBC (Bld) 0.46 % Low 0.5-1.5 [facility] Serum anion gap measurementO rdered By: NAREN Del Real on 09-04-2024 Anion gap [Moles/Vol] 6 mmol/L 5-15 [facility] Serum globulin measurementOr dered By: NAREN Del Real on 09-04-2024 Globulin (S) [Mass/Vol] 3.2 g/dL Normal 2.2-4.2 [facility] Comment on above: Order Comment: WILLIAM COX ORDERED QTFNALL OTHER LAB FIGURE CLERK.CGRAHAM1 Performed By: #### L 500.4100, L3410.9994, L501.9520, L3400.4600, L501.9985, L3410.9992, L500.4050 #### [facility] [address] [place], [address] Serum or plasma alanine ruby otransferase (ALT) measurementOrdered By: NAREN Del Real on 09-04-2024 ALT [Catalytic activity/Vol] 22 U/L Normal 13-56 [facility] Comment on above: Order Comment: WILLIAM COX ORDERED QTFNALL OTHER LAB FIGURE CLERK.CGRAHAM1 Performed By: #### L 500.4100, L3410.9994, L501.9520, L3400.4600, L501.9985, L3410.9992, L500.4050 #### [facility] [address] [place], [address] Serum or plasma albumin sanford urement (mass/volume)Ordered By: NAREN Del Real on 09-04-2024 Albumin [Mass/Vol] 3.6 g/dL Normal 3.2-5.0 [facility] Comment on above: Order Comment: WILLIAM COX ORDERED QTFNALL OTHER LAB FIGURE CLERK.CGRAHAM1 Performed By: #### L 500.4100, L3410.9994, L501.9520, L3400.4600, L501.9985, L3410.9992, L500.4050 #### [facility] [address] [facility] [facility] [place], [place], [phone] Serum or plasma alkaline neftali sphatase measurementOrdered By: NAREN Del Real on 09-04-2024 ALP [Catalytic activity/Vol] 106 U/L 45-117 [facility] Serum or plasma calcium sanford urement (mass/volume)Ordered By: NAREN Del Real on 09-04-2024 Calcium [Mass/Vol] 8.8 mg/dL 8.5-10.1 [facility] Serum or plasma creatinine m easurement (mass/volume)Ordered By: NAREN Del Real on 09-04-2024 Creatinine [Mass/Vol] 0.81 mg/dL Normal 0.55-1.02 [facility] Comment on above: The validity of the calculated GFR & GFRAA in patients over 70 years has not been determined. Clinical correlation is essential. Order Comment: FIGURE CLERK.LR UFENER ORDERED QTFNALL OTHER LAB FIGURE CLERK.CGRAHAM1 Result Comment: The validity of the calculated GFR GFRAA in patients over 70 years has not been determined. Clinical correlation is essential. Performed By: #### L 500.4100, L3410.9994, L501.9520, L3400.4600, L501.9985, L3410.9992, L500.4050 #### [facility] [address] [facility] [place], [place], [id number] Serum or plasma urea nitroge n measurement (mass/volume)Ordered By: NAREN Del Real on 09-04-2024 Urea nitrogen [Mass/Vol] 9 mg/dL Normal 7-18 [facility] Comment on above: Order Comment: FIGURE CLERK.LR UFENER ORDERED QTFNALL OTHER LAB FIGURE CLERK.CGRAHAM1 Performed By: #### L 500.4100, L3410.9994, L501.9520, L3400.4600, L501.9985, L3410.9992, L500.4050 #### [facility] [address] [place], [address] Sodium levelOrdered By: NAREN Del Real on 09-04-2024 Sodium [Moles/Vol] 140 mmol/L Normal 136-145 [facility] Comment on above: Order Comment: FIGURE CLERK.LR UFENER ORDERED QTFNALL OTHER LAB FIGURE CLERK.CGRISHI1 Performed By: #### L 500.4100, L3410.9994, L501.9520, L3400.4600, L501.9985, L3410.9992, L500.4050 #### [facility] [address] [place], [address] Total proteinOrdered By: NAREN Del Real on 09-04-2024 Protein [Mass/Vol] 6.8 g/dL 6.4-8.2 [facility] White blood cell (WBC) count Ordered By: NAREN Del Real on 09-04-2024 WBC (Bld) [#/Vol] 7.8 10*3/uL Normal 4.4-11.0 [facility] Comment on above: Order Comment: FIGURE CLERK.LR UFENER ORDERED QTFNALL OTHER LAB FIGURE CLERK.CGRISHI Performed By: #### L 500.4100, L3410.9994, L501.9520, L3400.4600, L501.9985, L3410.9992, L500.4050 #### [facility] [address] [place], [address] PET/CT Tumor Base -Thigh Ini ton 09-03-2024 PET/CT Tumor Base -Thigh Init [facility] [address] [place] [address] PET/CT Tumor Base -Thigh Init MR#: [id number] Acct: [id number] Name: OFE GIMENEZ Rep #: [id number] : 1975 F 49 From: Umberto Phillips PCP: Dr. Yarelis Fitzpatrick, DO Status: REG CLI Study: PET/CT Tumor Base -Thigh Init Date of Exam: Exam# [id number] Ordering Dr: Patience Del Real FIGURE CLERK- C [id number] EXAMINATION: FDG-PET/CT ? INDICATIONS: 49-year-old female with [...] this report are calculated using the exclusive [employer]. ([place].S. Patent No. [phone] [place] patent [phone]). Standardization and correction of the FDG SUV metric via [employer] technology allow for vendor non-specific objective quantitative examination comparison and optimization of the sensitivity and specificity of the FDG PET-CT examination. [email or web address] Electronically Signed: Umberto Jones DO at 21:14 EST Reading Location ID and State: [facility] / [place] Tel , Service support , CC: Dr. Yarelis Fitzpatrick DO; Patience Del Real NP Account Liaison: Signed Normal [facility] Pulmonary Visit Reporton Pulmonary Visit Report [facility] [address] [facility] [place] [address] OFFICE VISIT Date of Service: 08/30/24 MR#: [id number] Acct: [id number] Name: OFE GIMENEZ Rep #: [id number] : 1975 Provider: Patience Del Real NP Age/Sex: 49/F Location: [facility] Status: Signed Assessment and Plan Assessment and [...] chest tigh (more content not included)... Normal [facility] Chest WITH Contraston 2024 Chest WITH Contrast [facility] [address] [place] [address] Chest WITH Contrast MR#: [id number] Acct: [id number] Name: OFE GIMENEZ Rep #: [id number] : 1975 F 49 From: Kalpana flowers MD PCP: Dr. Yarelis Fitzpatrick, DO Status: REG CLI Study: Chest WITH Contrast Date of Exam: 08/28/24 Exam# [id number] Ordering Dr: Kimberly Jacobson FIGURE CLERK-C [id number] HISTORY: Hilar mass, pleural effusion, cxr 08/27 [...] CC: DARRYN Jacobson; Dr. Yarelis Fitzpatrick DO Account Liaison: Signed Normal [facility] Absolute lymphocyte countOrd ered By: Kimberly Jacobson on 08-27-2024 Lymphocytes Auto (Unsp spec) [#/Vol] 2.69 10*3/uL 0.83-4.51 [facility] Absolute neutrophil countOrd ered By: Kimberly Jacobson on 08-27-2024 Neutrophils (Bld) [#/Vol] 17.4 10*3/uL High 2.0-7.7 [facility] Albumin to globulin ratioOrd ered By: Kimberly Jacobson on 08-27-2024 Albumin/Globulin [Mass ratio] 0.8 {ratio} Low 0.9-2.4 [facility] Bilirubin, totalOrdered By: Kimberly Jacobson on 08-27-2024 Bilirubin [Mass/Vol] 0.40 mg/dL 0.20-1.00 [facility] Comment on above: For patients on eltr ombopag therapy, use of Dimension [place] TBIL is not recommended. Blood band neutrophil count as percentage of total leukocytesOrdered By: Kimberly Jacobson on 08-27-2024 Band form neutrophils/100 WBC (Bld) 1 % 0-5 [facility] Blood lymphocytes/100 leukoc ytesOrdered By: Kimberly Jacobson on 08-27-2024 Lymphocytes/100 WBC (Bld) 13 % Low 19-41 [facility] Blood monocytes/100 leukocyt esOrdered By: Kimberly Jacobson on 08-27-2024 Monocytes/100 WBC (Bld) 3 % 0-10 [facility] Blood segmented neutrophils/ 100 leukocytesOrdered By: Kimberly Jacobson on 08-27-2024 Segmented neutrophils/100 WBC (Bld) 83 % High 47-70 [facility] Blood urea nitrogen (BUN)/cr eatinine ratioOrdered By: Kimberly Jacobson on 08-27-2024 Urea nitrogen/Creatinine [Mass ratio] 16.1 mg/mg 10-20 [facility] C-reactive protein measureme nt by high sensitivity methodOrdered By: Kimberly Jacobson on 08-27-2024 C-Reactive Protein Extended Range 52.60 mg/L High 0.0-3.0 [facility] Comment on above: C-Reactive Protein ( CRP) provides useful information for thediagnosis, therapy and monitoring of inflammatory processesand associated diseases. For the evaluation of Relative Riskfor Cardiovascular Disease, a High Sensitivity CRP (HSCRP)should be ordered. C-reactive protein measurement by high sensitivity method 52.60 mg/L High 0.0-3.0 [facility] Comment on above: C-Reactive Protein ( CRP) provides useful information for thediagnosis, therapy and monitoring of inflammatory processesand associated diseases. For the evaluation of Relative Riskfor Cardiovascular Disease, a High Sensitivity CRP (HSCRP)should be ordered. CBC W/Diff, Automatedon Absolute Lymph 2.69 X10 3/uL Normal 0.83-4.51 [facility] Comment on above: Performed By: #### L 500.4100, L3410.9994, L501.9520, L3400.4600, L501.9985, L3410.9992, L500.4050 #### [facility] [address] [place], [address] Absolute Neut 17.4 X10 3/uL High 2.0-7.7 [facility] Comment on above: Performed By: #### L 500.4100, L3410.9994, L501.9520, L3400.4600, L501.9985, L3410.9992, L500.4050 #### [facility] [address] [place], [address] CRPon 08-27-2024 C-REACTIVE PROT 52.60 mg/L High 0.0-3.0 [facility] Comment on above: Result Comment: C-Re active Protein (CRP) provides useful information for the diagnosis, therapy and monitoring of inflammatory processes and associated diseases. For the evaluation of Relative Risk for Cardiovascular Disease, a High Sensitivity CRP (HSCRP) should be ordered. Performed By: #### L 500.4100, L3410.9994, L501.9520, L3400.4600, L501.9985, L3410.9992, L500.4050 #### [facility] [address] [place], [address] Carbon dioxide measurementOr dered By: Kimberly Jacobson on 08-27-2024 CO2 [Moles/Vol] 28.0 mmol/L 21.0-32.0 [facility] Cells counted Molgen (Bld/Ti ss) [#]Ordered By: Kimberly Jacobson on 08-27-2024 Differential Total Cells Counted 100 MANUAL DIFF [facility] Chest PA and Lateralon 08-27 Chest PA and Lateral [facility] [address] [place] [address] Chest PA and Lateral MR#: [id number] Acct: [id number] Name: OFE GIMENEZ Rep #: [id number] : 1975 F 49 From: Jose Lyman MD PCP: Dr. Yarelis Fitzpatrick, DO Status: DEP AMB Study: Chest PA and Lateral Date of Exam: 08/27/24 Exam# [id number] Ordering Dr: Kimberly Jacobson FIGURE CLERK-C [id number] EXAM: XR CHEST, 2 VIEWS CLINICAL INDICATION: [...] , CC: DARRYN Jacobson; Dr. Yarelis Fitzpatrick, Account Liaison: Signed Normal [facility] Chloride measurementOrdered By: Kimberly Jacobson on 08-27-2024 Chloride [Moles/Vol] 104 mmol/L 98-107 [facility] Comprehensive Metabolic Prof ilon 08-27-2024 Albumin [Mass/Vol] 3.4 g/dL Normal 3.2-5.0 [facility] Comment on above: Performed By: #### L 500.4100, L3410.9994, L501.9520, L3400.4600, L501.9985, L3410.9992, L500.4050 #### [facility] [address] [place], [address] Albumin/Globulin [Mass ratio] 0.8 {ratio} Low 0.9-2.4 [facility] Comment on above: Performed By: #### L 500.4100, L3410.9994, L501.9520, L3400.4600, L501.9985, L3410.9992, L500.4050 #### [facility] [address] [place], [address] ALK P 131 U/L High 45-117 [facility] Comment on above: Performed By: #### L 500.4100, L3410.9994, L501.9520, L3400.4600, L501.9985, L3410.9992, L500.4050 #### [facility] [address] [place], [address] ALT [Catalytic activity/Vol] 82 U/L High 13-56 [facility] Comment on above: Performed By: #### L 500.4100, L3410.9994, L501.9520, L3400.4600, L501.9985, L3410.9992, L500.4050 #### [facility] [address] [place], [address] AST [Catalytic activity/Vol] 74 U/L High 15-37 [facility] Comment on above: Performed By: #### L 500.4100, L3410.9994, L501.9520, L3400.4600, L501.9985, L3410.9992, L500.4050 #### [facility] [address] [place], [address] Bilirubin [Mass/Vol] 0.40 mg/dL Normal 0.20-1.00 [facility] Comment on above: Result Comment: For patients on eltrombopag therapy, use of Dimension [place] TBIL is not recommended. Performed By: #### L 500.4100, L3410.9994, L501.9520, L3400.4600, L501.9985, L3410.9992, L500.4050 #### [facility] [address] [place], [address] BUN/CRE 16.1 RATIO Normal 10-20 [facility] Comment on above: Performed By: #### L 500.4100, L3410.9994, L501.9520, L3400.4600, L501.9985, L3410.9992, L500.4050 #### [facility] [address] [place], [address] CA,Total 9.1 mg/dL Normal 8.5-10.1 [facility] Comment on above: Performed By: #### L 500.4100, L3410.9994, L501.9520, L3400.4600, L501.9985, L3410.9992, L500.4050 #### [facility] [address] [place], [address] Chloride [Moles/Vol] 104 mmol/L Normal 98-107 [facility] Comment on above: Performed By: #### L 500.4100, L3410.9994, L501.9520, L3400.4600, L501.9985, L3410.9992, L500.4050 #### [facility] [address] [place], [address] CO2 [Moles/Vol] 28.0 mmol/L Normal 21.0-32.0 [facility] Comment on above: Performed By: #### L 500.4100, L3410.9994, L501.9520, L3400.4600, L501.9985, L3410.9992, L500.4050 #### [facility] [address] [place], [address] Creatinine [Mass/Vol] 0.68 mg/dL Normal 0.55-1.02 [facility] Comment on above: Result Comment: The validity of the calculated GFR GFRAA in patients over 70 years has not been determined. Clinical correlation is essential. Performed By: #### L 500.4100, L3410.9994, L501.9520, L3400.4600, L501.9985, L3410.9992, L500.4050 #### [facility] [address] [place], [address] EST GFR - AA 117 mL/min Normal >60 [facility] Comment on above: Result Comment: Afri can Guyanese GFR Calc Performed By: #### L 500.4100, L3410.9994, L501.9520, L3400.4600, L501.9985, L3410.9992, L500.4050 #### [facility] [address] [place], [address] GAP 4 Low 5-15 [facility] Comment on above: Performed By: #### L 500.4100, L3410.9994, L501.9520, L3400.4600, L501.9985, L3410.9992, L500.4050 #### [facility] [address] [place], [address] GFR/1.73 sq M.predicted among non-blacks MDRD (S/P/Bld) [Vol rate/Area] 96 mL/min/{1.73_m2} Normal >60 [facility] Comment on above: Result Comment: Non- GFR Calc Performed By: #### L 500.4100, L3410.9994, L501.9520, L3400.4600, L501.9985, L3410.9992, L500.4050 #### [facility] [address] [place], [address] Globulin (S) [Mass/Vol] 4.0 g/dL Normal 2.2-4.2 [facility] Comment on above: Performed By: #### L 500.4100, L3410.9994, L501.9520, L3400.4600, L501.9985, L3410.9992, L500.4050 #### [facility] [address] [place], [address] Glucose [Mass/Vol] 129 mg/dL High 74-106 [facility] Comment on above: Result Comment: Fast ing Glucose result greater than or equal to 126 mg/dL suggests DIABETES MELLITUS per A.D.A. criteria. Performed By: #### L 500.4100, L3410.9994, L501.9520, L3400.4600, L501.9985, L3410.9992, L500.4050 #### [facility] [address] [place], [address] Potassium [Moles/Vol] 4.1 mmol/L Normal 3.5-5.1 [facility] Comment on above: Performed By: #### L 500.4100, L3410.9994, L501.9520, L3400.4600, L501.9985, L3410.9992, L500.4050 #### [facility] [address] [place], [address] Sodium [Moles/Vol] 136 mmol/L Normal 136-145 [facility] Comment on above: Performed By: #### L 500.4100, L3410.9994, L501.9520, L3400.4600, L501.9985, L3410.9992, L500.4050 #### [facility] [address] [place], [address] T PROT 7.4 g/dL Normal 6.4-8.2 [facility] Comment on above: Performed By: #### L 500.4100, L3410.9994, L501.9520, L3400.4600, L501.9985, L3410.9992, L500.4050 #### [facility] [address] [place], [address] Urea nitrogen [Mass/Vol] 11 mg/dL Normal 7-18 [facility] Comment on above: Performed By: #### L 500.4100, L3410.9994, L501.9520, L3400.4600, L501.9985, L3410.9992, L500.4050 #### [facility] [address] [place], [address] Erythrocyte Sed Rateon 08-27 SED RATE 4 mm/hr Normal 0-30 [facility] Comment on above: Performed By: #### L 500.4100, L3410.9994, L501.9520, L3400.4600, L501.9985, L3410.9992, L500.4050 #### [facility] [address] [place], [address] Erythrocyte distribution wid th ratioOrdered By: iKmberly Jacobson on 08-27-2024 Erythrocyte distribution width (RBC) [Ratio] 14.0 % 11.6-14.6 [facility] Erythrocyte distribution wid th standard deviationOrdered By: Kimberly Jacobson on 08-27-2024 Erythrocyte distribution width (RBC) [Entitic vol] 42.5 fL 35.1-43.9 [facility] Erythrocyte distribution width (RBC) [Ratio] 42.5 fl 35.1-43.9 [facility] Erythrocyte morphology asses smentOrdered By: Kimberly Jacobson on 08-27-2024 RBC morphology finding Nom (Bld) NORM C+C NORMAL NORM C&C [facility] Erythrocyte sedimentation ra teOrdered By: Kimberly Jacobson on 08-27-2024 ESR (Bld) [Velocity] 4 mm/h 0-30 [facility] Estimated glomerular filtrat ion rate (GFR) AmericanOrdered By: Kimberly Jacobson on 08-27-2024 Estimated GFR (MDRD) Amer 117 mL/min >60 [facility] Comment on above: GFR Calc Glomerular filtration rate ( GFR) estimationOrdered By: Kimberly Jacobson on 08-27-2024 Estimated GFR (MDRD) Non-Af Amer 96 mL/min >60 [facility] Comment on above: Non- GFR Calc GFR/1.73 sq M.predicted among non-blacks MDRD (S/P/Bld) [Vol rate/Area] 96 mL/min/{1.73_m2} >60 [facility] Comment on above: Non- GFR Calc Glucose measurementOrdered B y: Kimberly Jacobson on 08-27-2024 Glucose [Mass/Vol] 129 mg/dL High 74-106 [facility] Comment on above: Fasting Glucose resu lt greater than or equal to 126 mg/dL suggests DIABETES MELLITUS per A.D.A. criteria. Hematocrit Auto (Bld) [Volum e fraction]Ordered By: Kimberly Jacobson on 08-27-2024 Hematocrit (Bld) [Volume fraction] 41.9 % 37-47 [facility] Hemoglobin measurementOrdere d By: Kimberly Jacobson on 08-27-2024 Hemoglobin (Bld) [Mass/Vol] 13.9 g/dL 12.0-15.0 [facility] - Chemistry and C hemistry - challengeOrdered By: Kimberly Jacobson on 08-27-2024 AST [Catalytic activity/Vol] 74 U/L High 15-37 [facility] Lymphocytes Auto (Unsp spec) [#/Vol]Ordered By: Kimberly Jacobson on 08-27-2024 Lymphocytes (Bld) [#/Vol] 2.69 10*3/uL 0.83-4.51 [facility] MCV (mean corpuscular volume ) determinationOrdered By: Kimberly Jacobson on 08-27-2024 MCV (RBC) [Entitic vol] 83.3 fL 81-99 [facility] Mean corpuscular hemoglobin (MCH) determinationOrdered By: Kimberly Jacobson on 08-27-2024 MCH (RBC) [Entitic mass] 27.6 pg 27.0-32.0 [facility] Mean corpuscular hemoglobin concentration (MCHC) determinationOrdered By: Kimberly Jacobson on 08-27-2024 MCHC (RBC) [Mass/Vol] 33.2 g/dL 32-36 [facility] Mean platelet volume determi nationOrdered By: Kimberly Jacobson on 08-27-2024 Platelet mean volume (Bld) [Entitic vol] 10.0 fL 6.2-12.0 [facility] Neutrophil percentageOrdered By: Kimberly Jacobson on 08-27-2024 Neutrophils (%) (Auto) Not Reportable [facility] Platelet countOrdered By: Therese Jacobson on 08-27-2024 Platelets (Bld) [#/Vol] 427 10*3/uL 150-450 [facility] Platelet estimateOrdered By: Kimberly Jacobson on 08-27-2024 Platelets LM Ql (Bld) ADEQUATE ADEQ [facility] Platelets LM Ql (Bld)Ordered By: Kimberly Jacobson on 08-27-2024 Platelet Estimate A[facility]QUATE [facility] Potassium measurementOrdered By: Kimberly Jacobson on 08-27-2024 Potassium [Moles/Vol] 4.1 mmol/L 3.5-5.1 [facility] RBC Auto (Bld) [#/Vol]Ordere d By: Kimberly Jacobson on 08-27-2024 RBC (Bld) [#/Vol] 5.03 10*6/uL 4.2-5.4 [facility] RBC morphology finding Nom ( Bld)Ordered By: Kimberly Jacobson on 08-27-2024 Red Blood Cell Morphology NORM C+C NORMAL NORM C&C [facility] Reactive lymphocyte countOrd ered By: Kibmerly Jacobson on 08-27-2024 Reactive Lymphocytes 1+ [facility] Segmented neutrophils/100 WB C (Bld)Ordered By: Kimberly Jacobson on 08-27-2024 Neutrophils/100 WBC (Bld) 83 % High 47-70 [facility] Serum anion gap measurementO rdered By: Kimberly Jacobson on 08-27-2024 Anion gap [Moles/Vol] 4 mmol/L Low 5-15 [facility] Serum globulin measurementOr dered By: Kimberly Jacobson on 08-27-2024 Globulin (S) [Mass/Vol] 4.0 g/dL 2.2-4.2 [facility] Serum or plasma alanine ruby otransferase (ALT) measurementOrdered By: Kimberly Jacobson on 08-27-2024 ALT [Catalytic activity/Vol] 82 U/L High 13-56 [facility] Serum or plasma albumin sanford urement (mass/volume)Ordered By: Kimberly Jacobson on 08-27-2024 Albumin [Mass/Vol] 3.4 g/dL 3.2-5.0 [facility] Serum or plasma alkaline neftali sphatase measurementOrdered By: Kimberly Jacobson on 08-27-2024 ALP [Catalytic activity/Vol] 131 U/L High 45-117 [facility] Serum or plasma calcium sanford urement (mass/volume)Ordered By: Kimberly Jacobson on 08-27-2024 Calcium [Mass/Vol] 9.1 mg/dL 8.5-10.1 [facility] Serum or plasma creatinine m easurement (mass/volume)Ordered By: Kimberly Jacobson on 08-27-2024 Creatinine [Mass/Vol] 0.68 mg/dL 0.55-1.02 [facility] Comment on above: The validity of the calculated GFR & GFRAA in patients over 70 years has not been determined. Clinical correlation is essential. Serum or plasma urea nitroge n measurement (mass/volume)Ordered By: Kimberly Jacobson on 08-27-2024 Urea nitrogen [Mass/Vol] 11 mg/dL 7-18 [facility] Sodium levelOrdered By: Maureen Jacobson on 08-27-2024 Sodium [Moles/Vol] 136 mmol/L 136-145 [facility] Total cell countOrdered By: Kimberly Jacobson on 08-27-2024 Cells counted Molgen (Bld/Tiss) [#] 100 MANUAL DIFF [facility] Total proteinOrdered By: Shar Jacobson on 08-27-2024 Protein [Mass/Vol] 7.4 g/dL 6.4-8.2 [facility] Toxic granules LM Ql (Bld)Or dered By: Kimberly Jacobson on 08-27-2024 Toxic Granulation RARE [facility] Toxic leukocyte granulation detectionOrdered By: Kimberly Jacobson on 08-27-2024 Toxic granules LM Ql (Bld) [facility] White blood cell (WBC) count Ordered By: Kimberly Jacobson on 08-27-2024 WBC (Bld) [#/Vol] 20.7 10*3/uL High 4.4-11.0 [facility] IMMUNOGLOBULIN Dilip Immunoglobulin G 1017 mg/dL Normal 578-1228 [facility] Comment on above: Order Comment: Relea se to patient->Automatic Performed By: #### 2 600 #### OFE Lindsay ([id number]) [facility] ([facility] Immunoglobulin GOrdered By: Background Lab on 2024 IgG [Mass/Vol] 1017 mg/dL 578 - 1228 mg/dL [facility] Interpretation and review of laboratory results Normal [facility] Progress Noteon 2024 [employer] Authentication Interface Message Text Ofe is a 49 y.o. female who presents to our office today for a follow up visit. She was last seen on 12/18/23 and before this on 07/07/23 and she was seen initially on 02/09/23 for evaluation secondary to concerns from her PCP Dr. Yarelis Fitzpatrick (see referral in [facility]). Ofe used to be followed by Dr. Tarango (Fire Equipment Inspector) for lung nodules and she had been [...] Fitzpatrick she was to see Dr. Meeks (Fire Equipment Inspector in [place]) and she has done this once and [...] was tolerated. -Due to her seeing a Fire Equipment Inspector (Dr. Meeks), I held off on spirometry at her initial visit and food and environmental allergen testing did not appear to be indicated and this was discussed with her. At her initial visit, I ordered IgG, IgA, IgM and IgE levels, lymphocyte profile, tetanus titer, pneumococcal titers, HIV and Mitogen studies (9875) and on 02/13/23, IgG-242, IgA <5, IgM-23 [...] 07/07/23. She says her spirometry with her Fire Equipment Inspector was normal and she did not have [...] age 23. Special Needs: None Preferred Language: Turkish Pets: Yes: 1 dog. School/Daycare: No, she [...] tolerated. Respirator (more content not included)... Normal [facility] HIV 1&2 Ag and Ab Screenon 0 02-13-2023 HIV 1&2 Ag and Ab Screen Non-Reactive [facility] Comment on above: Reference value: Non -reactive Non-reactive result does not rule out HIV infection. If exposure to HIV infection occurred <14 days ago, contact the laboratory to request the addition of HIV-1 RNA detection/quantification test to [facility] (HIVQN). Release to patient->Automatic Reason for preventing automatic release->Other Release to patient->Manual release only [facility] Immunoglobulin A,G,M,Marino Immunoglobulin A <5 Low 59 - 337 mg/dL [facility] Immunoglobulin E <1 [facility] Immunoglobulin G 242 mg/dL Low 578 - 1228 mg/dL [facility] Immunoglobulin M 23 mg/dL 23 - 166 mg/dL [facility] Interpretation and review of laboratory results Abnormal [facility] Release to patient->Automatic Reason for preventing automatic release->Other Release to patient->Manual release only [facility] Microbial respiratory cultur eOrdered By: Dr. Meeks on 01-26-2023 Bacteria identified Respiratory culture Nom (Unsp spec) or Staphylococcus aureus isolated. [facility] Gram stain for investigation of transfusion reactionOrdered By: Dr. Meeks on 01-24-2023 Microscopic observation Gram stain Nom (Unsp spec) [facility] CBC W/AUTO DIFF WBC (70944)O rdered By: Photovoltaic Testing Technician on 12-16-2022 Basophils (Bld) [#/Vol] 0.1 10*3/uL Normal 0.0-0.2 [facility] Work Phone: Comment on above: PATIENT WAS FASTINGP ERFORMED BY: ANGELINE [facility] Nacetx[address] [facility] [id number] BY: [facility] [address] [id number] Basophils/100 WBC (Bld) 0 % Normal [facility]; [facility] Work Phone: Comment on above: PATIENT WAS FASTINGP ERFORMED BY: ANGELINE [facility] [id number] [facility] [id number] BY: [facility] [address] [id number] Eosinophils (Bld) [#/Vol] 0.1 10*3/uL Normal 0.0-0.4 [facility]; [facility] Work Phone: Comment on above: PATIENT WAS FASTINGP ERFORMED BY: ANGELINE [facility] [id number] [facility] [id number] BY: [facility] [id number] Eosinophils/100 WBC (Bld) 1 % Normal [facility]; [facility] Work Phone: Comment on above: PATIENT WAS FASTINGP ERFORMED BY: ANGELINE [facility] SantiagoGdhjbf[address] [facility] [id number] BY: [facility] [id number] Erythrocyte distribution width (RBC) [Ratio] 14.2 % Normal 11.7-15.4 [facility]; [facility] Work Phone: Comment on above: PATIENT WAS FASTINGP ERFORMED BY: ANGELINE [facility] [id number] [facility] [id number] BY: [facility] [id number] Hematocrit (Bld) [Volume fraction] 42.6 % Normal 34.0-46.6 [facility]; [facility] Work Phone: Comment on above: PATIENT WAS FASTINGP ERFORMED BY: ANGELINE [facility] Virwwe1441 Angel RoadDublin [place] [id number] BY: [address] [id number] Hemoglobin (Bld) [Mass/Vol] 14.3 g/dL Normal 11.1-15.9 [facility]; [facility] Work Phone: Comment on above: PATIENT WAS FASTINGP ERFORMED BY: ANGELINE [facility] [id number] [facility] [id number] BY: [facility] [id number] Immature granulocytes (Bld) [#/Vol] 0.0 10*3/uL Normal 0.0-0.1 [facility]; [facility] Work Phone: Comment on above: PATIENT WAS FASTINGP ERFORMED BY: ANGELINE [facility] [id number] [facility] [id number] BY: [facility] [id number] Immature granulocytes/100 WBC (Bld) 0 % Normal [facility]; [facility] Work Phone: Comment on above: PATIENT WAS FASTINGP ERFORMED BY: ANGELINE Lab[facility]ok[facility] SantiagoQyhtug7383 [facility] [id number] BY: [address] [id number] Lymphocytes (Bld) [#/Vol] 2.9 10*3/uL Normal 0.7-3.1 [facility]; [facility] Work Phone: Comment on above: PATIENT WAS FASTINGP ERFORMED BY: ANGELINE [facility] Mueyws5443 [facility] [id number] BY: [address] [id number] Lymphocytes/100 WBC (Bld) 18 % Normal [facility]; [facility] Work Phone: Comment on above: PATIENT WAS FASTINGP ERFORMED BY: ANGELINE [facility] Lojrfb4654 [facility] [id number] BY: [address] [id number] MCH (RBC) [Entitic mass] 27.1 pg Normal 26.6-33.0 [facility]; [facility] Work Phone: Comment on above: PATIENT WAS FASTINGP ERFORMED BY: ANGELINE [facility] Sabprv4899 [facility] [id number] BY: [facility] [id number] MCHC (RBC) [Mass/Vol] 33.6 g/dL Normal 31.5-35.7 [facility]; [facility] Work Phone: Comment on above: PATIENT WAS FASTINGP ERFORMED BY: ANGELINE [facility] HospitalRgzkxq2778 [facility] [id number] BY: [address] [id number] MCV (RBC) [Entitic vol] 81 fL Normal 79-97 [facility]; [facility] Work Phone: Comment on above: PATIENT WAS FASTINGP ERFORMED BY: ANGELINE [facility] HospitalRvoaqz1654 [facility] [id number] BY: [address] [id number] Monocytes (Bld) [#/Vol] 0.9 10*3/uL Normal 0.1-0.9 [facility]; [facility] Work Phone: Comment on above: PATIENT WAS FASTINGP ERFORMED BY: [facility] Hovqks4775 [facility] [id number] BY: [address] [id number] Monocytes/100 WBC (Bld) 6 % Normal [facility]; [facility] Work Phone: Comment on above: PATIENT WAS FASTINGP ERFORMED BY: [facility] Fmnvuw4195 [facility] [id number] BY: [facility] [id number] Neutrophils (Bld) [#/Vol] 11.8 10*3/uL Abnormal 1.4-7.0 [facility]; [facility] Work Phone: Comment on above: PATIENT WAS FASTINGP ERFORMED BY: ANGELINE [facility] Mpivtt0181 [facility] [id number] BY: [facility] [address] [id number] Neutrophils/100 WBC (Bld) 75 % Normal [facility]; [facility] Work Phone: Comment on above: PATIENT WAS FASTINGP ERFORMED BY: ANGELINE [facility] Gngjwo5047 [facility] [id number] BY: [facility] [id number] Platelets (Bld) [#/Vol] 522 10*3/uL Abnormal 150-450 [facility]; [facility] Work Phone: Comment on above: PATIENT WAS FASTINGP ERFORMED BY: ANGELINE [facility] Fuzkoi6084 [facility] [id number] BY: [facility]co[address] [id number] RBC (Bld) [#/Vol] 5.28 10*6/uL Normal 3.77-5.28 Compr ensive [facility] Medicine; [facility] Work Phone: Comment on above: PATIENT WAS FASTINGP ERFORMED BY: ANGELINE [facility] Oxvsyk0577 [facility] [id number] BY: Lab[address] [id number] WBC (Bld) [#/Vol] 15.8 10*3/uL Abnormal 3.4-10.8 Compr ehensive [facility]; [facility] Work Phone: Comment on above: PATIENT WAS FASTINGP ERFORMED BY: ANGELINE [facility] Mqlked2652 [facility] [id number] BY: [employer] [id number] Ferritin ([id number])Ordered By: Photovoltaic Testing Technician on 12-16-2022 Ferritin [Mass/Vol] 98 ng/mL Normal 15-150 Compr ehensive [facility]; [facility] Work Phone: Comment on above: PATIENT WAS FASTINGP ERFORMED BY: [employer] Orymqg6567 [facility] [id number] BY: Drik[address] [id number] Immunoglobulins, Quantitativ e, IgA,IgE, IgG, IgM ([id number])Ordered By: Photovoltaic Testing Technician on 12-16-2022 IgA [Mass/Vol] mg/dL Abnormal 87-352 Comprehens titus [facility]; [facility] Work Phone: Comment on above: Result confirmed on concentration. PATIENT WAS FASTINGP ERFORMED BY: [employer] HospitalWfqmuy9410 [facility] [id number] BY: [employer] [id number] IgE Qn [IU]/L Abnormal 6-495 [facility]; [facility] Work Phone: Comment on above: PATIENT WAS FASTINGP ERFORMED BY: [employer] Hplhmd3284 [facility] [id number] BY: [employer] [id number] IgG [Mass/Vol] 307 mg/dL Abnormal 586-1602 Comprehens [facility]; [facility] Work Phone: Comment on above: PATIENT WAS FASTINGP ERFORMED BY: [employer]6370 [facility] [id number] BY: [employer] [id number] IgM [Mass/Vol] 30 mg/dL Normal 26-217 Comprehens titus [facility]; [facility] Work Phone: Comment on above: PATIENT WAS FASTINGP ERFORMED BY: CB [facility] Bcczma8577 [address] Road[address] [id number] BY: Lab[address] [id number] Iron Binding Capacity (TIBC) ([id number])Ordered By: Photovoltaic Testing Technician on 12-16-2022 Iron [Mass/Vol] 19 ug/dL Abnormal 27-159 [facility]; [facility] Work Phone: Comment on above: PATIENT WAS FASTINGP ERFORMED BY: CB [facility] Wygqzr4765 [facility] RoadWashington [facility] [id number] BY: [address] [id number] Iron binding capacity [Mass/Vol] 263 ug/dL Normal 250-450 [facility]; [facility] Work Phone: Comment on above: PATIENT WAS FASTINGP ERFORMED BY: CB [facility] Wxdwvv[address] [facility] [id number] BY: [address] [id number] Iron binding capacity.unsaturated [Mass/Vol] 244 ug/dL Normal 131-425 [facility]; [facility] Work Phone: Comment on above: PATIENT WAS FASTINGP ERFORMED BY: CB [facility] Pfitjy[address] [facility] [id number] BY: Lab[address] [id number] Iron saturation [Mass fraction] 7 % Abnormal 15-55 [facility]; [facility] Work Phone: Comment on above: PATIENT WAS FASTINGP ERFORMED BY: CB [facility] Qzqvhz98[address] [facility] [id number] BY: [address] [id number] LDH (LD) (LACTATE DEHYDROGEN ASE) ([id number])Ordered By: Photovoltaic Testing Technician on 12-16-2022 LDH [Catalytic activity/Vol] 175 U/L Normal 119-226 [facility]; [facility] Work Phone: Comment on above: PATIENT WAS FASTINGP ERFORMED BY: CB [facility] Adgihs[address] [facility] [id number] BY: [facility] [address] [id number] METABOLIC PANEL, COMPREHENSI VE ([id number])Ordered By: Photovoltaic Testing Technician on 12-16-2022 Albumin [Mass/Vol] 4.7 g/dL Normal 3.8-4.8 [facility]; [facility] Work Phone: Comment on above: PATIENT WAS FASTINGP ERFORMED BY: CB [facility] Ztbljj8777 [facility] [id number] BY: [facility] [address] [id number] Albumin/Globulin [Mass ratio] 2.9 {ratio} Abnormal 1.2-2.2 [facility]; [facility] Work Phone: Comment on above: PATIENT WAS FASTINGP ERFORMED BY: CB [facility] Ysbghc06[address] [facility] [id number] BY: [facility] [address] [id number] ALP [Catalytic activity/Vol] 116 U/L Normal 44-121 [facility]; [facility] Work Phone: Comment on above: PATIENT WAS FASTINGP ERFORMED BY: CB [facility] Adpnfo[address] [facility] [id number] BY: [facility] [address] [id number] ALT [Catalytic activity/Vol] 17 U/L Normal 0-32 [facility]; [facility] Work Phone: Comment on above: PATIENT WAS FASTINGP ERFORMED BY: CB [facility] Xoxitd49[address] [facility] [id number] BY: Lab[address] [id number] AST [Catalytic activity/Vol] 19 U/L Normal 0-40 [facility]; [facility] Work Phone: Comment on above: PATIENT WAS FASTINGP ERFORMED BY: ANGELINE [facility] Rlajdn[address] [facility] [id number] BY: [facility] [id number] Bilirubin [Mass/Vol] 0.5 mg/dL Normal 0.0-1.2 Comp rehensive Internal Medicine; [facility] Work Phone: Comment on above: PATIENT WAS FASTINGP ERFORMED BY: ANGELINE [facility] Erzrry[address] [facility] [id number] BY: [facility] [address] [id number] Calcium [Mass/Vol] 9.5 mg/dL Normal 8.7-10.2 [facility]; [facility] Work Phone: Comment on above: PATIENT WAS FASTINGP ERFORMED BY: ANGELINE [facility] Puqckc6871 [facility] [id number] BY: [facility] [id number] Chloride [Moles/Vol] 102 mmol/L Normal 96-106 [facility]; [facility] Work Phone: Comment on above: PATIENT WAS FASTINGP ERFORMED BY: CB [facility] Twgzwo7145 [facility] [id number] BY: [facility] [address] [id number] CO2 [Moles/Vol] 23 mmol/L Normal 20-29 [facility]; [facility] Work Phone: Comment on above: PATIENT WAS FASTINGP ERFORMED BY: CB [facility] Fygnec[address] [facility] [id number] BY: [facility] [id number] Creatinine [Mass/Vol] 0.71 mg/dL Normal 0.57-1.00 [facility] prehensive Internal Medicine; [facility] Work Phone: Comment on above: PATIENT WAS FASTINGP ERFORMED BY: ANGELINE [facility] Zfnbfo4952 [facility] [id number] BY: [employer] [id number] GFR/1.73 sq M.predicted among non-blacks MDRD (S/P/Bld) [Vol rate/Area] 104 mL/min/{1.73_m2} Normal Comprehensi ve Internal Medicine; [facility] Work Phone: Comment on above: PATIENT WAS FASTINGP ERFORMED BY: ANGELINE [facility] Ediblj9920 [facility] [id number] BY: [employer] [id number] Globulin (S) [Mass/Vol] 1.6 g/dL Normal 1.5-4.5 [facility]; [facility] Work Phone: Comment on above: PATIENT WAS FASTINGP ERFORMED BY: ANGELINE [facility] Mkgxts6086 [facility] [id number] BY: [employer] [id number] Glucose [Mass/Vol] 89 mg/dL Normal 70-99 [facility]; [facility] Work Phone: Comment on above: PATIENT WAS FASTINGP ERFORMED BY: Krillion [facility] Hwmvas5911 [facility] [id number] BY: [employer] [id number] Potassium [Moles/Vol] 4.5 mmol/L Normal 3.5-5.2 [facility]; [facility] Work Phone: Comment on above: PATIENT WAS FASTINGP ERFORMED BY: ANGELINE [facility] Lphizd2541 [facility] [id number] BY: [facility] [id number] Protein [Mass/Vol] 6.3 g/dL Normal 6.0-8.5 [facility]; [facility] Work Phone: Comment on above: PATIENT WAS FASTINGP ERFORMED BY: ANGELINE [facility] Zpzglz6334 Angel RoadDublin [place] [id number] BY: [facility] [id number] Sodium [Moles/Vol] 142 mmol/L Normal 134-144 [facility]; [facility] Work Phone: Comment on above: PATIENT WAS FASTINGP ERFORMED BY: ANGELINE [facility] Kcjvfk1618 [address] RoadDublin [place] [id number] BY: [facility] [id number] Urea nitrogen [Mass/Vol] 9 mg/dL Normal 6-24 [facility]; [facility] Work Phone: Comment on above: PATIENT WAS FASTINGP ERFORMED BY: ANGELINE [facility] Azwjrx0079 Angel RoadDublin [place] [id number] BY: [facility] [id number] Urea nitrogen/Creatinine [Mass ratio] 13 mg/mg Normal 9-23 [facility]; [facility] Work Phone: Comment on above: PATIENT WAS FASTINGP ERFORMED BY: CB [facility] Hzzijx4853 [address] RoadDublin [place] [id number] BY: Lab[address] [id number] RETICULOCYTE COUNT ([id number])Or dered By: Photovoltaic Testing Technician on 12-16-2022 Reticulocytes/100 RBC (Bld) 0.7 % Normal 0.6-2.6 [facility]; [facility] Work Phone: Comment on above: PATIENT WAS FASTINGP ERFORMED BY: CB [facility] Nlnhww0512 Angel RoadDublin [place] [id number] BY: [address] [id number] SPEP ([id number])Ordered By: Syst em Accounts Adjustable Clerk on 12-16-2022 Albumin [Mass/Vol] 4.1 g/dL Normal 2.9-4.4 [facility]; [facility] Work Phone: Comment on above: PATIENT WAS FASTINGP ERFORMED BY: [place]co[place] 4613470 [facility] [id number] BY: Lab[address] [id number] Albumin/Globulin [Mass ratio] 1.9 {ratio} Abnormal 0.7-1.7 [facility]; [facility] Work Phone: Comment on above: PATIENT WAS FASTINGP ERFORMED BY: [facility]coEs[facility] HospitalItogzp3206 [facility] [id number] BY: [address] [id number] Alpha 1 globulin Elph [Mass/Vol] 0.3 g/dL Normal 0.0-0.4 [facility]; [facility] Work Phone: Comment on above: PATIENT WAS FASTINGP ERFORMED BY: [facility] Raqesp8102 [facility] [id number] BY: Lab[address] [id number] Alpha 2 globulin Elph [Mass/Vol] 0.8 g/dL Normal 0.4-1.0 [facility]; [facility] Work Phone: Comment on above: PATIENT WAS FASTINGP ERFORMED BY: [facility] Clkizx7227 [facility] [id number] BY: [address] [id number] Beta globulin Elph [Mass/Vol] 0.8 g/dL Normal 0.7-1.3 [facility]; [facility] Work Phone: Comment on above: PATIENT WAS FASTINGP ERFORMED BY: [facility] Ofvezb3814 [facility] [id number] BY: [address] [id number] Gamma globulin Elph [Mass/Vol] 0.3 g/dL Abnormal 0.4-1.8 [facility]; [facility] Work Phone: Comment on above: PATIENT WAS FASTINGP ERFORMED BY: [facility] Qwxvzu5797 [facility] [id number] BY: [address] [id number] Globulin (S) [Mass/Vol] 2.2 g/dL Normal 2.2-3.9 [facility]; [facility] Work Phone: Comment on above: PATIENT WAS FASTINGP ERFORMED BY: [facility] Gofnsf8420 [facility] [id number] BY: [address] [id number] Laboratory comment Dragan (Report) SPRCS Normal [facility]; [facility] Work Phone: Comment on above: Protein electrophore sis scan will follow via computer, mail, orcourier delivery. PATIENT WAS FASTINGP ERFORMED BY: [facility] Pepjgl9546 [facility] [id number] BY: [address] [id number] Laboratory report . Normal Compreh ensive Internal Medicine; [facility] Work Phone: Comment on above: PATIENT WAS FASTINGP ERFORMED BY: [facility] Xxenjj8609 [facility] [id number] BY: [address] [id number] Protein.monoclonal Elph [Mass/Vol] Not Observed Normal [facility]; [facility] Work Phone: Comment on above: PATIENT WAS FASTINGP ERFORMED BY: [facility]6370 [facility] [id number] BY: [address] [id number] UPEP ([id number])Ordered By: Syst em Accounts Adjustable Clerk on 12-16-2022 Albumin Elph (U) [Mass fraction] 14.5 % Normal [facility]; [facility] Work Phone: Comment on above: PATIENT WAS FASTINGP ERFORMED BY: [facility] Kugjxu0350 [facility] [id number] BY: [address] [id number] Alpha 1 globulin Elph (U) [Mass fraction] 13.0 % Normal Comprehensiv e Internal Medicine; [facility] Work Phone: Comment on above: PATIENT WAS FASTINGP ERFORMED BY: ANGELINE [facility] Witxah5644 [facility] [id number] BY: [address] [id number] Alpha 2 globulin Elph (U) [Mass fraction] 21.8 % Normal Comprehensiv e Internal Medicine; [facility] Work Phone: Comment on above: PATIENT WAS FASTINGP ERFORMED BY: ANGELINE [facility] Dhnnyd0108 [facility] [id number] BY: [address] [id number] Beta globulin Elph (U) [Mass fraction] 32.9 % Normal Comprehensiv e [facility]; [facility] Work Phone: Comment on above: PATIENT WAS FASTINGP ERFORMED BY: [facility]6370 [facility] [id number] BY: [address] [id number] Gamma globulin Elph (U) [Mass fraction] 17.8 % Normal Comprehensiv e Internal Medicine; [facility] Work Phone: Comment on above: PATIENT WAS FASTINGP ERFORMED BY: [employer] Gnrhbi1318 [facility] [id number] BY: Drik[address] [id number] Protein (U) [Mass/Vol] mg/dL Normal [facility]; [facility] Work Phone: Comment on above: Verified by repeat analysis PATIENT WAS FASTINGP ERFORMED BY: [facility] SurgicalVictor Ville 4613470 [facility] [id number] BY: [address] [id number] Protein.monoclonal Elph (U) [Mass fraction] Not Observed Normal [facility]; [facility] Work Phone: Comment on above: PATIENT WAS FASTINGP ERFORMED BY: [employer] Wzoxwg1366 [facility] [id number] BY: [address] [id number] Vitamin B-12 (cyanocobalamin ) ([id number])Ordered By: Photovoltaic Testing Technician on 12-16-2022 Cobalamin (Vitamin B12) [Mass/Vol] 339 pg/mL Normal 232-1245 [facility]; [facility] Work Phone: Comment on above: PATIENT WAS FASTINGP ERFORMED BY: [employer] HospitalOfsjew0697 [facility] [id number] BY: [address] [id number] Absolute lymphocyte countOrd ered By: ED PROVIDER on 11-06-2022 Lymphocytes Auto (Unsp spec) [#/Vol] 3.22 10*3/uL 0.83-4.51 [facility] Amorphous sediment detection in urine sediment by light microscopyOrdered By: ED PROVIDER on 11-06-2022 Amorphous sediment LM Ql (Urine sed) 1+ URATE [facility] Basophil percentageOrdered B y: ED PROVIDER on 11-06-2022 Basophil percentage 0 SEEN /hpf 0-5 [facility] Basophils/100 WBC (Bld) 0.5 % 0-1 [facility] Chloride [Moles/Vol] 107 mmol/L 98-107 [facility] Eosinophils/100 WBC (Bld) 0.0 % 0-5 [facility] Glucose [Mass/Vol] 177 mg/dL 74-106 [facility] Comment on above: Fasting Glucose resu lt greater than or equal to 126 mg/dL suggests DIABETES MELLITUS per A.D.A. criteria. Neutrophils (Bld) [#/Vol] 8.5 10*3/uL 2.0-7.7 [facility] Neutrophils/100 WBC (Bld) 66.8 % 47-70 [facility] Potassium [Moles/Vol] 3.6 mmol/L 3.5-5.1 [facility] Sodium [Moles/Vol] 142 mmol/L 136-145 [facility] WBC (Bld) [#/Vol] 12.7 10*3/uL 4.4-11.0 [facility] Beta hCG serum qualOrdered B y: ED PROVIDER on 11-06-2022 Beta HCG ( test) Ql Negative [facility] Bilirubin Test strip Ql (U)O rdered By: ED PROVIDER on 11-06-2022 Bilirubin Ql (U) Negative Negative [facility] Blood erythrocytes count (nu mber/volume)Ordered By: ED PROVIDER on 11-06-2022 RBC (Bld) [#/Vol] 5.24 10*6/uL 4.2-5.4 [facility] Blood hemoglobin measurement (mass/volume)Ordered By: ED PROVIDER on 11-06-2022 Hemoglobin (Bld) [Mass/Vol] 13.9 g/dL 12.0-15.0 [facility] Blood lymphocytes/100 leukoc ytesOrdered By: ED PROVIDER on 11-06-2022 Lymphocytes/100 WBC (Bld) 25.4 % 19-41 [facility] Blood monocytes/100 leukocyt esOrdered By: ED PROVIDER on 11-06-2022 Monocytes/100 WBC (Bld) 6.8 % 0-10 [facility] Blood platelet mean volumeOr dered By: ED PROVIDER on 11-06-2022 Platelet mean volume (Bld) [Entitic vol] 9.2 fL 6.2-12.0 [facility] Determination of erythrocyte mean corpuscular volume (MCV)Ordered By: ED PROVIDER on 11-06-2022 MCV (RBC) [Entitic vol] 83.4 fL 81-99 [facility] Hematocrit Auto (Bld) [Volum e fraction]Ordered By: ED PROVIDER on 11-06-2022 Hematocrit (Bld) [Volume fraction] 43.7 % 37-47 [facility] Ketones Test strip Ql (U)Ord ered By: ED PROVIDER on 11-06-2022 Ketones Ql (U) Negative Negative [facility] Laboratory - Chemistry and C hemistry - challengeOrdered By: ED PROVIDER on 11-06-2022 CO2 [Moles/Vol] 27.0 mmol/L 21.0-32.0 [facility] Urea nitrogen/Creatinine [Mass ratio] 14.5 mg/mg 10-20 [facility] Laboratory - Hematology and Cell countsOrdered By: ED PROVIDER on 11-06-2022 Erythrocyte distribution width (RBC) [Entitic vol] 44.0 fL 35.1-43.9 [facility] Erythrocyte distribution width (RBC) [Ratio] 14.6 % 11.6-14.6 [facility] Immature granulocytes/100 WBC (Bld) 0.500 % 0.0-0.9 [facility] Comment on above: IG% - Immature Granu locytes (promyelocytes, myelocytes and metamyelocytes) > 1% indicates that a LEFT SHIFT is Present. MCH (RBC) [Entitic mass] 26.5 pg 27.0-32.0 [facility] Nucleated RBC/100 WBC (Bld) [Ratio] 0 % 0-5 [facility] MCHC Auto (RBC) [Mass/Vol]Or dered By: ED PROVIDER on 11-06-2022 MCHC (RBC) [Mass/Vol] 31.8 g/dL 32-36 [facility] Mucus LM Ql (Urine sed)Order ed By: ED PROVIDER on 11-06-2022 Mucus Ql (Urine sed) 0 SEEN /hpf [facility] Nitrite Test strip Ql (U)Ord ered By: ED PROVIDER on 11-06-2022 Nitrite Ql (U) Negative Negative [facility] No Panel InformationOrdered By: ED PROVIDER on 03-19-2023 Estimated Creatinine Clearance Calc 83.82 ml/min [facility] Estimated GFR (MDRD) Amer 104 mL/min >60 [facility] Comment on above: GFR Calc Estimated GFR (MDRD) Non-Af Amer 86 mL/min >60 [facility] Comment on above: Non- GFR Calc Platelets bldOrdered By: ED PROVIDER on 11-06-2022 Platelets (Bld) [#/Vol] 502 10*3/uL 150-450 [facility] Protein Test strip Ql (U)Ord ered By: ED PROVIDER on 11-06-2022 Protein Ql (U) 30 mg/dl Negative [facility] Serum or plasma calcium [place] urement (mass/volume)Ordered By: ED PROVIDER on 11-06-2022 Calcium [Mass/Vol] 9.6 mg/dL 8.5-10.1 [facility] Serum or plasma creatinine m easurement (mass/volume)Ordered By: ED PROVIDER on 11-06-2022 Creatinine [Mass/Vol] 0.76 mg/dL 0.55-1.02 [facility] Comment on above: The validity of the calculated GFR & GFRAA in patients over 70 years has not been determined. Clinical correlation is essential. Serum or plasma urea nitroge n measurement (mass/volume)Ordered By: ED PROVIDER on 11-06-2022 Urea nitrogen [Mass/Vol] 11 mg/dL 7-18 [facility] Squamous epithelial cells de tection in urine sediment by light microscopyOrdered By: ED PROVIDER on 11-06-2022 Epithelial cells.squamous LM Ql (Urine sed) 0-5 SEEN /hpf 5-10 [facility] Thin prep Papanicolaou smear with manual screeningOrdered By: ED PROVIDER on 11-06-2022 Thin prep Papanicolaou smear with manual screening 8 5-15 [facility] Urine blood detectionOrdered By: ED PROVIDER on 11-06-2022 RBC Ql (U) 10 /ul Negative [facility] RBC Ql (U) 0-5 SEEN /hpf 0-5 [facility] Urine clarityOrdered By: ED PROVIDER on 11-06-2022 Clarity (U) Sl. Cloudy Clear [facility] Urine color determinationOrd ered By: ED PROVIDER on 11-06-2022 Color (U) Yellow Yellow [facility] Urine glucose detectionOrder ed By: ED PROVIDER on 11-06-2022 Glucose Ql (U) 50 mg/dl Normal [facility] Urine leukocyte esterase det ection by dipstickOrdered By: ED PROVIDER on 11-06-2022 Leukocyte esterase Test strip Ql (U) Negative Negative [facility] Urine pHOrdered By: ED PROVI NORMAN on 11-06-2022 pH (U) 6.5 [pH] 5.0 - 8.0 [facility] Urine sediment bacteria coun t by microscopy (number/high power field)Ordered By: ED PROVIDER on 11-06-2022 Bacteria LM.HPF (Urine sed) [#/Area] 0 /[HPF] None Seen [facility] Urine specific gravity measu rementOrdered By: ED PROVIDER on 11-06-2022 Specific gravity (U) [Rel density] 1.020 1.002-1.030 [facility] Urobilinogen Auto test strip Ql (U)Ordered By: ED PROVIDER on 11-06-2022 Urobilinogen Ql (U) 1 mg/dl Normal [facility] INHOUSE Rapid Covid/ Flu A/ Flu BOrdered By: Yaa Calderon on 02-22-2022 SARS-CoV-2 (COVID-19) RNA MICHELLE+probe Ql (Unsp spec) Negative Normal [facility]; [facility] Work Phone: Britni 01-23-2022 CNOV Office Visit (UCWSTR ) -------- OEF GIMENEZ ([id number]) 1975 F Date Time Provider Department 01/23/22 8:45 AM ABRAHAN PETERSON [facility] During your visit today, we recorded [...] Agrees to plan Declines avs Abrahan Peterson APRN.SSIS ETL DEVELOPER Referring Provider: SELF [200] Allergies As of Date: 01/23/2022 (No Known Allergies) Date Reviewed: 01/23/2022 Reviewed by: Abrahan Peterson APRN.SSIS ETL DEVELOPER - Fully Assessed Reason for Visit: Cough [...] trimethoprim-polymyxin (NEREIDA (more content not included)... Normal [facility] CNOVon 08-28-2021 CNOV Office Visit (UCWSTR ) -------- OFE GIMENEZ ([id number]) 1975 F Date Time Provider Department 08/28/21 8:30 AM MELVA REYNA [facility] During your visit today, we recorded the following information about you: Temperature Pulse Respiration Blood pressure 98.3 degrees 86/minute 18/minute 142/82 Weight 66.5 kg Melva Reyna APRN.SSIS ETL DEVELOPER 08/28/2021 9:11 AM Addendum Albuterol nebulizer every [...] severe or concerning to you. Melva Reyna, FURS SALESPERSON.SSIS ETL DEVELOPER 08/28/2021 9:16 AM Signed Subjective HPI HPI [...] of smell (more content not included)... [facility] COVID w FLU A+B Routon 08-28 Influenza A PCR Negative [facility] Comment on above: Performed By: #### C OVFLU #### [facility] Idea Shower [facility] [address] Influenza B PCR Negative [facility] Comment on above: Performed By: #### C OVFLU #### [place] [address] [address] [place] [address] SARS-CoV-2 (COVID-19) RNA MICHELLE+probe Ql (Unsp spec) UPPER RESPIRATORY TRACT SWAB [facility] Comment on above: Performed By: #### C OVFLU #### [address] [place] [address] SARS-CoV-2 (COVID-19) RNA MICHELLE+probe Ql (Unsp spec) Positive for COVID19 (SARS CoV2) by RT-PCR or equivalent method. Critically abnormal Negative for COVID19 (SARS CoV2) by RT-PCR or equivalent method. [facility] Comment on above: Result Comment: This test was developed and its performance characteristics determined by [facility]'s [facility] [place]. This test has been authorized by FDA under an Emergency Use Authorization (EUA). This test has been validated in accordance with the FDA's Guidance Document Policy for Diagnostics Testing in Laboratories Certified to Perform High Complexity Testing under CLIA prior to Emergency use Authorization for Coronavirus Disease 2019 during the Public Health Emergency issued on October 19, 2019. Test performed by [facility], [facility] [place], [address] [address]. Performed By: #### C OVFLU #### [facility] [address] [address] CNOVon 08-11-2021 CNOV Office Visit (UCTR ) -------- OFE GIMENEZ ([id number]) 1975 F Date Time Provider Department 08/11/21 6:00 PM LEN MARINELLI [facility] During your visit today, we recorded [...] Marinelli APRN.CNP 08/11/2021 6:50 PM Signed [facility] [address] [place], [place] [address] Emergency Department Diagnosis: Assessment COUGH: Your doctor [...] have increased (more content not included)... [facility] Raji 08-11-2021 PEPE Telephone (UCWSTR) -------- OFE GIMENEZ ([id number]) 1975 F Date Time Provider Department 08/11/21 ORA LECHUGATR During your visit today, we recorded the [...] Of Date: 08/11/2021 (None) Encounter Status:Closed by ANIDE AKHTAR on 08/12/21 [facility] COVID w FLU A+B Routon 08-11 Influenza A PCR Positive Critically abnormal [facility] Comment on above: Performed By: #### C OVFLU #### [facility] [address] [place], [place] [id number] Influenza B PCR Negative [facility] Comment on above: Performed By: #### C OVFLU #### [place] [address] SARS-CoV-2 (COVID-19) RNA MICHELLE+probe Ql (Unsp spec) UPPER RESPIRATORY TRACT SWAB [facility] Comment on above: Performed By: #### C OVFLU #### [place] [address] SARS-CoV-2 (COVID-19) RNA MICHELLE+probe Ql (Unsp spec) Negative for COVID19 (SARS CoV2) by RT-PCR or equivalent method. Normal Negative for COVID19 (SARS CoV2) by RT-PCR or equivalent method. [facility] Comment on above: Result Comment: This test was developed and its performance characteristics determined by [facility]'s [facility] [place]. This test has been authorized by FDA under an Emergency Use Authorization (EUA). This test has been validated in accordance with the FDA's Guidance Document Policy for Diagnostics Testing in Laboratories Certified to Perform High Complexity Testing under CLIA prior to Emergency use Authorization for Coronavirus Disease 2019 during the Public Health Emergency issued on October 19, 2019. Test performed by [facility], [facility] [place], [address] [place] [address]. Performed By: #### C OVFLU #### [place] [address] XR CHEST 2V FRONTAL/LATon XR CHEST 2V [...] apices, right upper lobe more than left. Account Liaison: [employer] Transcribe Date/Time: Aug 11 2021 7:07P Dictated by : NESTOR CRONIN MD This examination was interpreted and the report reviewed and electronically signed by: NESTOR CRONIN MD on Aug 11 2021 7:10PM EST [id number] [facility] XR Chest PA and Lateralon IMPRESSION: 1. No acute radiographic abnormalities. 2. Hyperaeration consistent with COPD. 3. 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 Account Liaison: [employer] Trans[employer] Date/Time: Aug 11 2021 7:07P Dictated by : NESTOR CRONIN MD This examination was interpreted and the report reviewed and electronically signed by: NESTOR CRONIN MD on Aug 11 2021 7:10PM [facility] DIV[facility] OF RADIOLOGY * * *Final [...] apices, right upper lobe more than left. Account Liaison: PSCB Transcribe Date/Time: Aug 11 2021 7:07P Dictated by : NESTOR CRONIN MD This examination was interpreted and the report reviewed and electronically signed by: NESTOR CRONIN MD on Aug 11 2021 7:10PM [facility] Radiology Study observation (narrative) [facility] XR Chest PA and LateralOrder ed By: Ccf Provider on 08-11-2021 [facility] CNOVon 05-14-2021 CNOV Office Visit (UCWSTR ) -------- OFE GIMENEZ ([id number]) 1975 F Date Time Provider Department 05/14/21 [...] have confirmed and edited as necessary, the [facility] Review of Systems Constitutional: Positive for fever [...] testing ordered; Results will be released to [facility] in 24-48 hours Discussed quarantine, social distancing, hand washing/proper hygiene. Rest, fluids, OTC medications discussed -Reviewed red flags (ie chest pain, shortness of breath) with patient and when to seek care sooner. NELLA Hammond PA-C 05/14/2021 6:45 PM Signed How to Manage Common Symptoms Associated with COVID for Adults Fever- Fever is a tem (more content not included)... [facility] Coronavirus 2019on SARS-CoV-2 (COVID-19) RNA MICHELLE+probe Ql (Unsp spec) UPPER RESPIRATORY TRACT SWAB [facility] Comment on above: Performed By: #### C OVFLU #### [place] [id number] SARS-CoV-2 (COVID-19) RNA MICHELLE+probe Ql (Unsp spec) Negative for COVID19 (SARS CoV2) by RT-PCR or equivalent method. Normal Negative for COVID19 (SARS CoV2) by RT-PCR or equivalent method. [facility] Comment on above: Result Comment: This test was developed and its performance characteristics determined by [facility]'s [facility] [place]. This test has been authorized by FDA under an Emergency Use Authorization (EUA). This test has been validated in accordance with the FDA's Guidance Document Policy for Diagnostics Testing in Laboratories Certified to Perform High Complexity Testing under CLIA prior to Emergency use Authorization for Coronavirus Disease 2019 during the Public Health Emergency issued on October 19, 2019. Test performed by [facility], [facility] [place], [address] [place] [id number]. Performed By: #### C OVFLU #### [address] [place], [place] [address] 2018 Novel Coronavirus (COVI D-19), MICHELLE ([id number])Ordered By: Photovoltaic Testing Technician on 11-25-20202018 Novel Coronavirus (COVID-19), MICHELLE ([id number]) Not detected Normal [facility]; [facility] Work Phone: Comment on above: This nucleic acid am plification test was developed and its performancecharacteristics determined by [facility]. Nucleic acidamplification tests include RT-PCR and TMA. [...] detected) result in this assay. PERFORMED BY: Vidavee6[address] [employer] [id number] [place] (ANTINUCLEAR ANTIBODY) ( [id number])Ordered By: Photovoltaic Testing Technician on 12-24-2019 Nuclear Ab Ql (S) Negative Normal [facility] Work Phone: Comment on above: PATIENT NOT FASTINGP ERFORMED BY: [employer] [place] [id number] Nuclear Ab Ql (S) Negative Normal [facility]; [facility] Work Phone: Comment on above: PATIENT NOT FASTINGP ERFORMED BY: Twibingo70 [employer] [id number] FERRITIN ([id number])Ordered By: Photovoltaic Testing Technician on 12-24-2019 Ferritin [Mass/Vol] 6 ng/mL Abnormal 15-150 Compr ehens[facility] Work Phone: Comment on above: PATIENT NOT FASTINGP ERFORMED BY: [employer] [place] [id number] Iron Binding Capacity (TIBC) ([id number])Ordered By: Photovoltaic Testing Technician on 12-24-2019 Iron [Mass/Vol] 11 ug/dL Abnormal 27-159 [facility] Internal Medicine Work Phone: Comment on above: PATIENT NOT FASTINGP ERFORMED BY: CB [facility] Flgscu7261 [address] RoadDublin [place] [id number] Iron binding capacity [Mass/Vol] 462 ug/dL Abnormal 250-450 [facility] Work Phone: Comment on above: PATIENT NOT FASTINGP ERFORMED BY: CB [facility] Vehuwt1602 [address] RoadDublin [place] [id number] Iron binding capacity.unsaturated [Mass/Vol] 451 ug/dL Abnormal 131-425 [facility] Work Phone: Comment on above: PATIENT NOT FASTINGP ERFORMED BY: CB [facility] Frrgct4628 [address] RoadDublin [place] [id number] Iron saturation [Mass fraction] 2 % Abnormal 15-55 [facility] Work Phone: Comment on above: PATIENT NOT FASTINGP ERFORMED BY: CB [facility] Fxgafj2596 [address] RoadDublin [place] [id number] METABOLIC PANEL, COMPREHENSI VE ([id number])Ordered By: Photovoltaic Testing Technician on 12-24-2019 Albumin [Mass/Vol] 4.8 g/dL Normal 3.8-4.8 [facility] Internal Medicine Work Phone: Comment on above: PATIENT NOT FASTINGP ERFORMED BY: CB [facility] Hucrij1699 [address] RoadDublin [place] [id number] Albumin/Globulin [Mass ratio] 3.0 {ratio} Abnormal 1.2-2.2 [facility] Work Phone: Comment on above: PATIENT NOT FASTINGP ERFORMED BY: CB [facility] Tbhost4485 [address] RoadDublin [place] [id number] ALP [Catalytic activity/Vol] 72 [iU]/L Normal 39-117 [facility] Work Phone: Comment on above: PATIENT NOT FASTINGP ERFORMED BY: CB [facility] Hkttun9443 [address] RoadDublin [place] [id number] ALP [Catalytic activity/Vol] 72 U/L Normal 39-117 [facility]; [facility] Work Phone: Comment on above: PATIENT NOT FASTINGP ERFORMED BY: ANGELINE Long6370 [address] RoadDublin [place] [id number] ALT [Catalytic activity/Vol] 13 [iU]/L Normal 0-32 [facility] Work Phone: Comment on above: PATIENT NOT FASTINGP ERFORMED BY: ANGELINE Santiagolin6[address] RoadDublin [place] [id number] ALT [Catalytic activity/Vol] 13 U/L Normal 0-32 [facility]; [facility] Work Phone: Comment on above: PATIENT NOT FASTINGP ERFORMED BY: ANGELINE Santiagolin6[address] RoadDublin [place] [id number] AST [Catalytic activity/Vol] 16 [iU]/L Normal 0-40 [facility] Work Phone: Comment on above: PATIENT NOT FASTINGP ERFORMED BY: ANGELINE Santiagolin6[address]Dublin [place] [id number] AST [Catalytic activity/Vol] 16 U/L Normal 0-40 [facility]; [facility] Work Phone: Comment on above: PATIENT NOT FASTINGP ERFORMED BY: ANGELINE Santiagolin6[address]Dublin [place] [id number] Bilirubin [Mass/Vol] 0.3 mg/dL Normal 0.0-1.2 [facility] Work Phone: Comment on above: PATIENT NOT FASTINGP ERFORMED BY: ANGELINE LabMayra Hsyqxa5217 [address] RoadDublin [place] [id number] Calcium [Mass/Vol] 9.8 mg/dL Normal 8.7-10.2 [facility] Work Phone: Comment on above: PATIENT NOT FASTINGP ERFORMED BY: ANGELINE LabMayra SantiagoCptdnl1281 [address] RoadDublin [place] [id number] Chloride [Moles/Vol] 105 mmol/L Normal 96-106 [facility] Work Phone: Comment on above: PATIENT NOT FASTINGP ERFORMED BY: CB [facility] Gpnera2429 [address] RoadDublin [place] [id number] CO2 [Moles/Vol] 23 mmol/L Normal 20-29 [facility] Internal Medicine Work Phone: Comment on above: PATIENT NOT FASTINGP ERFORMED BY: CB [facility] Nfvwdw6142 [address] RoadDublin [place] [id number] Creatinine [Mass/Vol] 0.76 mg/dL Normal 0.57-1.00 [facility] Work Phone: Comment on above: PATIENT NOT FASTINGP ERFORMED BY: CB [facility] Gmkkta8155 [address] RoadDublin [place] [id number] GFR/1.73 sq M predicted among blacks CKD-EPI (S/P/Bld) [Vol rate/Area] 109 mL/min/1.73 Normal [facility] Work Phone: Comment on above: PATIENT NOT FASTINGP ERFORMED BY: CB [facility] Vixioh9703 [address] RoadDublin [place] [id number] GFR/1.73 sq M predicted among non-blacks CKD-EPI (S/P/Bld) [Vol rate/Area] 94 mL/min/1.73 Normal [facility] Work Phone: Comment on above: PATIENT NOT FASTINGP ERFORMED BY: CB [facility] Oawjnx9820 [address] RoadDublin [place] [id number] Globulin (S) [Mass/Vol] 1.6 g/dL Normal 1.5-4.5 [facility] Internal Medicine Work Phone: Comment on above: PATIENT NOT FASTINGP ERFORMED BY: CB [facility] Qsaqno1361 [address] RoadDublin [place] [id number] Glucose [Mass/Vol] 87 mg/dL Normal 65-99 [facility] Internal Medicine Work Phone: Comment on above: PATIENT NOT FASTINGP ERFORMED BY: CB [facility] Spionl5467 [address] RoadDublin [place] [id number] Potassium [Moles/Vol] 4.8 mmol/L Normal 3.5-5.2 [facility] Internal Medicine Work Phone: Comment on above: PATIENT NOT FASTINGP ERFORMED BY: CB [facility] Fxgysa[address] CurTranin [place] [id number] Protein [Mass/Vol] 6.4 g/dL Normal 6.0-8.5 [facility] Work Phone: Comment on above: PATIENT NOT FASTINGP ERFORMED BY: CB [facility] Eejxmy1844 [address] RoadDuin [place] [id number] Sodium [Moles/Vol] 143 mmol/L Normal 134-144 [facility] Medicine Work Phone: Comment on above: PATIENT NOT FASTINGP ERFORMED BY: CB [facility] Obvibk9383 [address] SANDOWWashington [facility] [id number] Urea nitrogen [Mass/Vol] 9 mg/dL Normal 6-24 [facility] Internal Medicine Work Phone: Comment on above: PATIENT NOT FASTINGP ERFORMED BY: ANGELINE [facility] Dmikqn6739 [address] SANDOWWashington [facility] Medical Center [id number] Urea nitrogen/Creatinine [Mass ratio] 12 mg/mg Normal 9-23 [facility] Internal Medicine Work Phone: Comment on above: PATIENT NOT FASTINGP ERFORMED BY: ANGELINE [facility] Wzqhrh3034 [address] [facility] Centerin [place] [id number] CBC & PLATELETS (AUTO) ([id number])Ordered By: Photovoltaic Testing Technician on 12-23-2019 Erythrocyte distribution width (RBC) [Ratio] 19.9 % Abnormal 11.7-15.4 [facility] Internal Medicine Work Phone: Comment on above: Test(s) Platelets ca lled to Dr Cuadra on 12/24/2019 at 05:54 ESTPATIENT NOT FASTINGPERFORMED BY: [facility] Zzzxng[address] [facility] [id number] BY: Lab[address] [id number] Hematocrit (Bld) [Volume fraction] 26.1 % Abnormal 34.0-46.6 [facility] Work Phone: Comment on above: Test(s) Platelets ca lled to Dr Cuadra on 12/24/2019 at 05:54 ESTPATIENT NOT FASTINGPERFORMED BY: [employer] Jbaxyu4815 [facility] [id number] BY: [employer] [id number] Hemoglobin (Bld) [Mass/Vol] 6.9 g/dL Abnormal 11.1-15.9 [facility] Internal Medicine Work Phone: Comment on above: Test(s) Platelets ca lled to Dr Cuadra on 12/24/2019 at 05:54 ESTPATIENT NOT FASTINGPERFORMED BY: Twibingo70 [facility] [id number] BY: HItviews [address] [id number] MCH (RBC) [Entitic mass] 16.5 pg Abnormal 26.6-33.0 [facility] Work Phone: Comment on above: Test(s) Platelets ca lled to Dr Cuadra on 12/24/2019 at 05:54 ESTPATIENT NOT FASTINGPERFORMED BY: [employer] Qgfcyi0470 [facility] [id number] BY: Close.io[address] [id number] MCHC (RBC) [Mass/Vol] 26.4 g/dL Abnormal 31.5-35.7 [facility] Internal Medicine Work Phone: Comment on above: Test(s) Platelets ca lled to Dr Cuadra on 12/24/2019 at 05:54 ESTPATIENT NOT FASTINGPERFORMED BY: As It Islin6370 [facility] [id number] BY: [employer] [id number] MCV (RBC) [Entitic vol] 63 fL Abnormal 79-97 [facility] Work Phone: Comment on above: Test(s) Platelets ca lled to Dr Cuadra on 12/24/2019 at 05:54 ESTPATIENT NOT FASTINGPERFORMED BY: [employer] Okbhwd0829 [facility] [id number] BY: [employer] Sfrxbohiol[address] [id number] Morphology Dragan (Bld) [Interp] Note: Normal [facility] Work Phone: Comment on above: Verified by microsco pic examination. Test(s) Platelets ca lled to Dr Cuadra on 12/24/2019 at 05:54 ESTPATIENT NOT FASTINGPERFORMED BY: [employer] Fkgtgg1225 [facility] [id number] BY: [employer] Qaddorjcpm[address] [id number] Platelets (Bld) [#/Vol] 1036 {x10E3/uL} Abnormal 150-450 [facility] Work Phone: Comment on above: Platelets vary in si ze.Large platelets were observed. Test(s) Platelets ca lled to Dr Cuadra on 12/24/2019 at 05:54 ESTPATIENT NOT FASTINGPERFORMED BY: Kickplay6370 [facility] [id number] BY: [employer] Feufrkkapa4[address] [id number] Platelets (Bld) [#/Vol] 1036 10*3/uL Abnormal 150-450 [facility]; [facility] Work Phone: Comment on above: Platelets vary in si ze.Large platelets were observed. Test(s) Platelets ca lled to Dr Cuadra on 12/24/2019 at 05:54 ESTPATIENT NOT FASTINGPERFORMED BY: Kickplay6370 [facility] [id number] BY: Close.io[address] [id number] RBC (Bld) [#/Vol] 4.17 {x10E6/uL} Normal 3.77-5.28 [facility] Internal Medicine Work Phone: Comment on above: Polychromasia presen t Test(s) Platelets ca lled to Dr Cuadra on 12/24/2019 at 05:54 ESTPATIENT NOT FASTINGPERFORMED BY: Kickplay[address] [facility] [id number] BY: H[employer]views [address] [id number] RBC (Bld) [#/Vol] 4.17 10*6/uL Normal 3.77-5.28 [facility]; [facility] Work Phone: Comment on above: Polychromasia presen t Test(s) Platelets ca lled to Dr Cuadra on 12/24/2019 at 05:54 ESTPATIENT NOT FASTINGPERFORMED BY: Twibingo[address] [facility] [id number] BY: HIt[employer] [address] [id number] WBC (Bld) [#/Vol] 5.8 {x10E3/uL} Normal 3.4-10.8 [facility] Internal Medicine Work Phone: Comment on above: Test(s) Platelets ca lled to Dr Cuadra on 12/24/2019 at 05:54 ESTPATIENT NOT FASTINGPERFORMED BY: Kickplay[address] [facility] [id number] BY: HIt[employer] [address] [id number] WBC (Bld) [#/Vol] 5.8 10*3/uL Normal 3.4-10.8 [facility]; [facility] Work Phone: Comment on above: Test(s) Platelets ca lled to Dr Cuadra on 12/24/2019 at 05:54 ESTPATIENT NOT FASTINGPERFORMED BY: Kickplay6370 [facility] [id number] BY: Close.io[address] [id number] Immunoglobulins, Quantitativ e, IgA,IgE, IgG, IgM ([id number])Ordered By: Photovoltaic Testing Technician on 12-23-2019 IgA [Mass/Vol] mg/dL Abnormal 87-352 [facility] Internal Medicine Work Phone: Comment on above: Result confirmed on concentration. Test(s) Platelets ca lled to Dr Cuarda on 12/24/2019 at 05:54 ESTPATIENT NOT FASTINGPERFORMED BY: Meteor Solutionsrp Lbdixt6766 [address] S[facility]OWWashington [facility] Center [id number] BY: [employer] [id number] IgA [Mass/Vol] mg/dL Abnormal 87-352 [facility]; [facility] Work Phone: Comment on above: Result confirmed on concentration. Test(s) Platelets ca lled to Dr Cuadra on 12/24/2019 at 05:54 ESTPATIENT NOT FASTINGPERFORMED BY: Kickplay[address] [facility] [id number] BY: WeStore[address] [id number] IgE Qn [IU]/L Abnormal 6-495 [facility] Work Phone: Comment on above: Test(s) Platelets ca lled to Dr Cuadra on 12/24/2019 at 05:54 ESTPATIENT NOT FASTINGPERFORMED BY: ANGELINE A.B Productionsrp Clvwhc3551 AngelFlorida BiomedWashington Regional Medical Center [id number] BY: WeStore[address] [id number] IgE Qn [IU]/L Abnormal 6-495 [facility]; [facility] Work Phone: Comment on above: Test(s) Platelets ca lled to Dr Cuadra on 12/24/2019 at 05:54 ESTPATIENT NOT FASTINGPERFORMED BY: Meteor Solutionsrp Grrtyh4870 [facility] [id number] BY: [employer]B [employer] [id number] IgG [Mass/Vol] 381 mg/dL Abnormal 586-1602 [facility] Internal Medicine Work Phone: Comment on above: Test(s) Platelets ca lled to Dr Cuadra on 12/24/2019 at 05:54 ESTPATIENT NOT FASTINGPERFORMED BY: [facility]6370 [facility] [id number] BY: [address] [id number] IgM [Mass/Vol] 32 mg/dL Normal 26-217 [employer] Internal Medicine Work Phone: Comment on above: Test(s) Platelets ca lled to Dr Cuadra on 12/24/2019 at 05:54 ESTPATIENT NOT FASTINGPERFORMED BY: ANGELINE [facility] Zqvjla0482 [facility] [id number] BY: [address] [id number] 2019 Novel Coronavirus (COVI D-19), MICHELLE ([id number])Ordered By: Photovoltaic Testing Technician on 12-12-20192018 Novel Coronavirus (COVID-19), MICHELLE ([id number]) Not Detected Normal [facility] Work Phone: Comment on above: This test was develo ped and its performance characteristics determinedby [facility]. This test has not been FDA cleared orapproved. This test has been authorized by FDA under an Emergency UseAuthorization (EUA). This test has been validated in accordance withthe FDA's Guidance Document (Policy for Diagnostics Testing inLaboratories Certified to Perform High Complexity Testing under CLIAprior to Emergency Use Authorization for Coronavirus Disease-2019during the Public Health Emergency) issued on October 19, 2019.[facility] independent review of this validation is pending. This test isonly authorized for the duration of time the declaration thatcircumstances exist justifying the authorization of the emergency useof in vitro diagnostic tests for detection of SARS-CoV-2 virus and/ordiagnosis of COVID-19 infection under section 564(b)(1) of the Act, 21U.S.C. 360bbb-3(b)(1), unless the authorization is terminated orrevoked sooner. PATIENT NOT FASTINGP ERFORMED BY: [address] [id number] Information: NASAL 2019 Novel Coronavirus (COVID-19), MICHELLE ([id number]) Not detected Normal [facility]; [facility] Work Phone: Comment on above: This test was develo ped and its performance characteristics determinedby [facility]. This test has not been FDA cleared [...] orrevoked sooner. PATIENT NOT FASTINGP ERFORMED BY: [address] [id number] Information: NASAL Vital Signs Date Time Vital Sign Value Performing Clinician Facility 12-08-2024 09:17-0400 Body temperature 98 [degF] Dr. Yarelis Fitzpatrick DO Work Phone: [facility] 12-08-2024 09:17-0400 Diastolic blood pressure 96 mm[Hg] Dr. Yarelis Fitzpatrick DO Work Phone: [facility] 12-08-2024 09:17-0400 Heart rate 106 /min Dr. Yarelis Fitzpatrick DO Work Phone: [facility] 12-08-2024 09:17-0400 Respiratory rate 22 /min Dr. Yarelis Fitzpatrick DO Work Phone: [facility] 12-08-2024 09:17-0400 SaO2% (BldA) [Mass fraction] 97 % Dr. Yarelis Fitzpatrick DO Work Phone: [facility] 12-08-2024 09:17-0400 Systolic blood pressure 148 mm[Hg] Dr. Yarelis Fitzpatrick DO Work Phone: [facility] 12-08-2024 06:50-0400 Body height 167.[address] Yarelis Fitzpatrick DO Work Phone: [facility] 12-08-2024 06:50-0400 Body mass index (BMI) [Ratio] 22.6 kg/m2 Dr. Yarelis Fitzpatrick DO Work Phone: [facility] 12-08-2024 06:50-0400 Body weight 63.[address] Yarelis Fitzpatrick DO Work Phone: [facility] 11-06-2024 23:37-0400 Body temperature 98.5 [degF] Dr. Yarelis Fitzpatrick DO Work Phone: [facility] 11-06-2024 23:37-0400 Diastolic blood pressure 89 mm[Hg] Dr. Yarelis Fitzpatrick DO Work Phone: [facility] 11-06-2024 23:37-0400 Heart rate 98 /min Dr. Yarelis Fitzpatrick DO Work Phone: [facility] 11-06-2024 23:37-0400 Respiratory rate 18 /min Dr. Yarelis Fitzpatrick DO Work Phone: [facility] 11-06-2024 23:37-0400 SaO2% (BldA) [Mass fraction] 97 % Dr. Yarelis Fitzpatrick DO Work Phone: [facility] 11-06-2024 23:37-0400 Systolic blood pressure 163 mm[Hg] Dr. Yarelis Fitzpatrick DO Work Phone: [facility] 11-06-2024 21:19-0400 Body height 167.[address] Yarelis Fitzpatrick DO Work Phone: [facility] 11-06-2024 21:19-0400 Body mass index (BMI) [Ratio] 22.6 kg/m2 Dr. Yarelis Fitzpatrick DO Work Phone: [facility] 11-06-2024 21:19-0400 Body weight 63.[address] Yarelis Fitzpatrick DO Work Phone: [facility] 11-01-2024 09:28-0400 Body mass index (BMI) [Ratio] 22.2 kg/m2 Dr. Yarelis Fitzpatrick DO Work Phone: [facility] 11-01-2024 09:28-0400 Body temperature 97.6 [degF] Dr. Yarelis Fitzpatrick DO Work Phone: [facility] 11-01-2024 09:28-0400 Body weight 62.[address] Yarelis Fitzpatrick DO Work Phone: [facility] 11-01-2024 09:28-0400 Diastolic blood pressure 90 mm[Hg] Dr. Yarelis Fitzpatrick DO Work Phone: [facility] 11-01-2024 09:28-0400 Heart rate 73 /min Dr. Yarelis Fitzpatrick DO Work Phone: [facility] 11-01-2024 09:28-0400 Respiratory rate 20 /min Dr. Yarelis Fitzpatrick DO Work Phone: [facility] 11-01-2024 09:28-0400 SaO2% (BldA) [Mass fraction] 95 % Dr. Yarelis Fitzpatrick DO Work Phone: [facility] 11-01-2024 09:28-0400 Systolic blood pressure 144 mm[Hg] Dr. Yarelis Fitzpatrick DO Work Phone: [facility] 08-30-2024 08:09-0500 Body height 167.[address] Yarelis Fitzpatrick DO Work Phone: [facility] 08-30-2024 08:09-0500 Body mass index (BMI) [Ratio] 23.1 kg/m2 Dr. Yarelis Fitzpatrick DO Work Phone: [facility] 08-30-2024 08:09-0500 Body temperature 97.7 [degF] Dr. Yarelis Fitzpatrick DO Work Phone: [facility] 08-30-2024 08:09-0500 Body weight 64.[address] Yarelis Fitzpatrick DO Work Phone: [facility] 08-30-2024 08:09-0500 Diastolic blood pressure 86 mm[Hg] Dr. Yarelis Fitzpatrikc DO Work Phone: [facility] 08-30-2024 08:09-0500 Heart rate 92 /min Dr. Yarelis Fitzpatrick DO Work Phone: [facility] 08-30-2024 08:09-0500 Respiratory rate 14 /min Dr. Yarelis Fitzpatrick DO Work Phone: [facility] 08-30-2024 08:09-0500 SaO2% (BldA) [Mass fraction] 96 % Dr. Yarelis Fitzpatrick DO Work Phone: [facility] 08-30-2024 08:09-0500 Systolic blood pressure 161 mm[Hg] Dr. Yarelis Fitzpatrick DO Work Phone: [facility] 08-15-2023 08:44-0500 Body height 167.[address] aYrelis Fitzpatrick Work Phone: [facility] 08-15-2023 08:44-0500 Body mass index (BMI) [Ratio] 22.3 kg/m2 Dr. Yarelis Fitzpatrick Work Phone: [facility] 08-15-2023 08:44-0500 Body temperature 97.6 [degF] Dr. Yarelis Fitzpatrick Work Phone: [facility] 08-15-2023 08:44-0500 Body weight 62.[address] Yarelis Fitzpatrick Work Phone: [facility] 08-15-2023 08:44-0500 Diastolic blood pressure 91 mm[Hg] Dr. Yarelis Fitzpatrick Work Phone: [facility] 08-15-2023 08:44-0500 Heart rate 89 /min Dr. Yarelis Fitzpatrick Work Phone: [facility] 08-15-2023 08:44-0500 Respiratory rate 18 /min Dr. Yarelis Fitzpatrick Work Phone: [facility] 08-15-2023 08:44-0500 SaO2% (BldA) [Mass fraction] 98 % Dr. Yarelis Fitzpatrick Work Phone: [facility] 08-15-2023 08:44-0500 Systolic blood pressure 152 mm[Hg] Dr. Yarelis Fitzpatrick Work Phone: [facility] 01-24-2023 06:02-0400 Body height 167.[address] Yarelis Fitzpatrick Work Phone: [facility] 01-24-2023 06:02-0400 Body mass index (BMI) [Ratio] 21.4 kg/m2 Dr. Yarelis Fitzpatrick Work Phone: [facility] 01-24-2023 06:02-0400 Body temperature 98.2 [degF] Dr. Yarelis Fitzpatrick Work Phone: [facility] 01-24-2023 06:02-0400 Body weight 60.[address] Yarelis Fitzpatrick Work Phone: [facility] 01-24-2023 06:02-0400 Diastolic blood pressure 88 mm[Hg] Dr. Yarelis Fitzpatrick Work Phone: [facility] 01-24-2023 06:02-0400 Heart rate 107 /min Dr. Yarelis Fitzpatrick Work Phone: [facility] 01-24-2023 06:02-0400 Respiratory rate 18 /min Dr. Yarelis Fitzpatrick Work Phone: [facility] 01-24-2023 06:02-0400 SaO2% (BldA) [Mass fraction] 96 % Dr. Yarelis Fitzpatrick Work Phone: [facility] 01-24-2023 06:02-0400 Systolic blood pressure 144 mm[Hg] Dr. Yarelis Fitzpatrick Work Phone: [facility] 01-05-2023 09:46-0400 Body height 167.64 cm [...] 11:59-0400 Body height 167.64 cm Lyubov Lemon [facility]; [facility] Work Phone: Comment on above: VIRTUAL 12-30-2022 11:59-0400 Body mass index (BMI) [Ratio] 23.24 kg/m2 Lyubov Lemon [facility]; [facility] Work Phone: Comment on above: VIRTUAL 12-30-2022 11:59-0400 Body surface area Derived from formula 1.74 m2 Lyubov Lemon [facility]; [facility] Work Phone: Comment on above: VIRTUAL 12-30-2022 11:59-0400 Body weight 65.32 kg Lyubov Manhyun [facility]; [facility] Work Phone: Comment on above: VIRTUAL 12-16-2022 11:07-0400 Body height 167.64 cm Kiesha Slarb [employer]AT[employer] D[employer]ER OPERATOR [facility]; [facility] Work Phone: 12-16-2022 11:07-0400 Body mass index (BMI) [Ratio] 23.24 kg/m2 Kiesha Slarb [employer]AT[employer] D[employer]ER OPERATOR [facility]; [facility] Work Phone: 12-16-2022 11:07-0400 Body surface area Derived from formula 1.74 m2 Kiesha Larb [employer]AT[employer] DRIER OPERATOR [facility]; [facility] Work Phone: 12-16-2022 11:07-0400 Body temperature 97.9 [degF] Kiesha Slarb PLATEN DRIER OPERATOR [facility]; [facility] Work Phone: Comment on above: Method: Temporal 12-16-2022 11:07-0400 Body weight 65.32 kg Kiesha Tovarrb [employer]AT[employer] D[employer]ER OPERATOR [facility]; [facility] Work Phone: 12-16-2022 11:07-0400 Diastolic blood pressure 78 mm[Hg] Kiesha Slarb [employer]AT[employer] DRIER OPERATOR [facility]; [facility] Work Phone: Comment on above: Patient Position: Sitting; Cuff Location : Left Arm; Cuff Size: Standard 12-16-2022 11:07-0400 Heart rate 86 /min Kiesha Larb [employer]AT[employer] DRIER OPERATOR [facility]; [facility] Work Phone: Comment on above: Pattern: Regular 12-16-2022 11:07-0400 Respiratory rate 18 /min Kiesha Larb [employer]AT[employer] D[employer]ER OPERATOR [facility]; [facility] Work Phone: Comment on above: Pattern: Unlabored 12-16-2022 11:07-0400 SaO2% (BldA) [Mass fraction] 98 % Kiesha Slarb [employer]AT[employer] D[employer]ER OPERATOR [facility]; [facility] Work Phone: Comment on above: Room air 12-16-2022 11:07-0400 Systolic blood pressure 122 mm[Hg] Kiesha Slarb [employer]AT[employer] D[employer]ER OPERATOR [facility]; [facility] [...] 12-05-2022 12:10-0400 Heart rate 84 /min Yarelis Saezon DO Work Phone: [facility]; [facility] Work Phone: Comment on above: Pattern: Regular 12-05-2022 12:10-0400 Systolic blood pressure 130 mm[Hg] Yarelis Saezon DO Work Phone: [facility]; [facility] Work Phone: Comment on above: Patient Position: Sitting 11-07-2022 00:57-0400 Body temperature 98.4 [degF] [facility] 11-07-2022 00:57-0400 Diastolic blood pressure 88 mm[Hg] [facility] 11-07-2022 00:57-0400 Heart rate 88 /min [facility] 11-07-2022 00:57-0400 Respiratory rate 16 /min [facility] 11-07-2022 00:57-0400 Systolic blood pressure 168 mm[Hg] [facility] 11-07-2022 00:00-0400 SaO2% (BldA) [Mass fraction] 97 % [facility] 11-06-2022 22:01-0400 Body height 167.[address] [facility] 11-06-2022 22:01-0400 Body mass index (BMI) [Ratio] 23.3 kg/m2 [facility] 11-06-2022 22:01-0400 Body weight 65.[address] [facility] 11-06-2022 09:26-0400 Body temperature 99.3 [degF] Abrahan Nicholas FURS SALESPERSON.[employer] ETL DEVELOPER Work Phone: [facility] 11-06-2022 09:26-0400 Body weight 65.05 kg Abrahan Peterson FURS SALESPERSON.SSIS ETL DEVELOPER Work Phone: [facility] 11-06-2022 09:26-0400 Diastolic blood pressure 92 mm[Hg] Abrahan Peterson FURS SALESPERSON.SSIS ETL DEVELOPER Work Phone: [facility] 11-06-2022 09:26-0400 Heart rate 107 /min Abrahan Peterson FURS SALESPERSON.SSIS ETL DEVELOPER Work Phone: [facility] 11-06-2022 09:26-0400 Respiratory rate 18 /min Abrahan Peterson FURS SALESPERSON.SSIS ETL DEVELOPER Work Phone: [facility] 11-06-2022 09:26-0400 SaO2% (BldA) [Mass fraction] 96 % Abrahan Peterson FURS SALESPERSON.SSIS ETL DEVELOPER Work Phone: [facility] 11-06-2022 09:26-0400 Systolic blood pressure 142 mm[Hg] Abrahan Nicholas FURS SALESPERSON.SSIS ETL DEVELOPER Work Phone: [facility] 10-14-2022 10:24-0500 Body height 167.64 cm Yarelis Fitzpatrick DO Work Phone: [facility]; [facility] Work Phone: 10-14-2022 10:24-0500 Body mass index (BMI) [Ratio] 23.24 kg/m2 Yarelis Fitzpatrick DO Work Phone: [facility] [...] Sitting 10-07-2022 10:41-0500 Body height 167.64 cm [employer] [facility]; [facility] Work Phone: 10-07-2022 10:41-0500 Body mass index (BMI) [Ratio] 23.34 kg/m2 [employer] [facility]; [facility] Work Phone: 10-07-2022 10:41-0500 Body surface area Derived from formula 1.74 m2 [employer] [facility]; [facility] Work Phone: 10-07-2022 10:41-0500 Body temperature 98.5 [degF] [facility]; [facility] Work Phone: Comment on above: Method: Thermal Scan 10-07-2022 10:41-0500 Body weight 65.59 kg Lyubov Lemon [facility]; [facility] Work Phone: 10-07-2022 10:41-0500 Diastolic blood pressure 80 mm[Hg] Lyubov Lemon [facility]; [facility] Work Phone: Comment on above: Patient Position: Sitting; Cuff Location : Left Arm; Cuff Size: Standard 10-07-2022 10:41-0500 Heart rate 86 /min Lyubov Lemon [facility]; [facility] Work Phone: Comment on above: Pattern: Regular 10-07-2022 10:41-0500 Respiratory rate 16 /min Lyubov Lemon [facility]; [facility] Work Phone: Comment on above: Pattern: Unlabored 10-07-2022 10:41-0500 SaO2% (BldA) [Mass fraction] 97 % Lyubov Lemon [facility]; [facility] Work Phone: Comment on above: Room air 10-07-2022 10:41-0500 Systolic blood pressure 130 mm[Hg] Lyubov Lemon [facility]; [facility] [...] SaO2% (BldA) [Mass fraction] 96 % Erasmo Lino [employer] [facility]; [facility] Work Phone: Comment on above: Room air 2022 07:57-0400 Systolic blood pressure 122 mm[Hg] Erasmo Huynh LPN [facility]; [facility] Work Phone: Comment on above: Patient Position: Sitting; Cuff Location : Left Arm; Cuff Size: Standard 04-26-2022 08:41-0400 Body height 167.64 cm Kiesha Martinez LPN [facility]; [facility] Work Phone: Comment on above: pt did not report-virtual 04-26-2022 08:41-0400 Body mass index (BMI) [Ratio] 21.67 kg/m2 Kiesha Martinez [facility]; [facility] Work Phone: Comment on above: pt did not report-virtual 04-26-2022 08:41-0400 Body surface area Derived from formula 1.69 m2 Kiesha Martinez [facility]; [facility] Work Phone: Comment on above: pt did not report-virtual 04-26-2022 08:41-0400 Body weight 60.9 kg Kiesha Martinez [employer]ATEN DRIER OPERATOR [facility]; [facility] [...] 08:48-0400 Body temperature 99.39 [degF] Abrahan Peterson FURS SALESPERSON.SSIS ETL DEVELOPER Work Phone: [facility] 01-23-2022 08:48-0400 Body weight 62.32 kg Abrahan Peterson FURS SALESPERSON.SSIS ETL DEVELOPER Work Phone: [facility] 01-23-2022 08:48-0400 Diastolic blood pressure 88 mm[Hg] Abrahan Peterson FURS SALESPERSON.SSIS ETL DEVELOPER Work Phone: [facility] 01-23-2022 08:48-0400 Heart rate 89 /min Abrahan Peterson FURS SALESPERSON.SSIS ETL DEVELOPER Work Phone: [facility] 01-23-2022 08:48-0400 Respiratory rate 18 /min Abrahan Peterson FURS SALESPERSON.SSIS ETL DEVELOPER Work Phone: [facility] 01-23-2022 08:48-0400 SaO2% (BldA) [Mass fraction] 97 % Abrahan Peterson FURS SALESPERSON.SSIS ETL DEVELOPER Work Phone: [facility] 01-23-2022 08:48-0400 Systolic blood pressure 146 mm[Hg] Abrahan Peterson FURS SALESPERSON.SSIS ETL DEVELOPER Work Phone: [facility] 10-15-2021 08:33-0500 Body height 167.64 cm Haydee Sorensen [facility]; [facility] Work Phone: Comment on above: no vs taken as this is phone encounter d ue to covid 10-15-2021 08:33-0500 Body mass index (BMI) [Ratio] 21.67 kg/m2 Haydee Gravius [facility]; [facility] Work Phone: Comment on above: no vs taken as this is phone encounter d ue to covid 10-15-2021 08:33-0500 Body surface area Derived from formula 1.69 m2 Haydee Edu [facility]; [facility] Work Phone: Comment on above: no vs taken as this is phone encounter d ue to covid 10-15-2021 08:33-0500 Body weight 60.9 kg Haydee Sorensen [facility]; [facility] [...] Body mass index (BMI) [Ratio] 21.67 kg/m2 [facility]; [facility] Work Phone: 01-22-2021 08:56-0400 Body surface area Derived from formula 1.69 m2 [facility]; [facility] Work Phone: 01-22-2021 08:56-0400 Body weight 60.9 kg [facility]; [facility] Work Phone: 10-12-2020 09:15-0500 BMI (Body Mass Index) 21.67 kg/m2 Katia Desai SSIS ETL DEVELOPER Work Phone: [facility]; [facility] Work Phone: 10-12-2020 09:15-0500 Body Temperature 98.8 [degF] Katia Desai CNP Work Phone: [facility]; [facility] Work Phone: 10-12-2020 09:15-0500 Body weight 60.9 kg Katia Desai SSIS ETL DEVELOPER Work Phone: [facility]; [facility] Work Phone: 10-12-2020 09:15-0500 BSA (Body Surface Area) 1.69 m2 Katia Desai SSIS ETL DEVELOPER Work Phone: [facility]; [facility] Work Phone: 10-12-2020 09:15-0500 Height 167.64 cm Katia Desai SSIS ETL DEVELOPER Work Phone: [facility]; [facility] Work Phone: 10-12-2020 09:15-0500 Pulse (Heart Rate) 82 /min Katia Desai SSIS ETL DEVELOPER Work Phone: [facility]; [facility] Work Phone: Comment on above: Pattern: Regular 09-14-2020 08:56-0500 BMI (Body Mass Index) 21.67 kg/m2 Kiesha Martinez [facility] Comprehen [facility]; [facility] Work Phone: Comment on above: patient did not report 09-14-2020 08:56-0500 Body weight 60.9 kg Kiesha Tovarrb [employer]AT[employer] D[employer]ER OPERATOR [facility]; [facility] Work Phone: Comment on above: patient did not report 09-14-2020 08:56-0500 BSA (Body Surface Area) 1.69 m2 Kiesha Larb PLATEN DRIER OPERATOR [facility]; [facility] Work Phone: Comment on above: patient did not report 09-14-2020 08:56-0500 Height 167.64 cm Kiesha Slarb PLATEN DRIER OPERATOR [facility]; [facility] [...] (Body Mass Index) 20.98 kg/m2 MANUEL Voss LAURO [facility] Work Phone: 12-24-2019 08:07-0400 Body Temperature 98.2 [degF] MANUEL Voss PLATEN DRIER OPERATOR [facility] Work Phone: Comment on above: Method: Temporal 12-24-2019 08:07-0400 Body weight 58.97 kg MANUEL Bipin [employer] [facility] Work Phone: 12-24-2019 08:07-0400 BP Diastolic 84 mm[Hg] MANUEL Voss [facility] Work Phone: Comment on above: Patient Position: Sitting; Cuff Location : Left Arm; Cuff Size: Standard 12-24-2019 08:07-0400 BP Systolic 120 mm[Hg] MANUEL Voss PLATEN DRIER OPERATOR [facility] Work Phone: Comment on above: Patient Position: Sitting; Cuff Location : Left Arm; Cuff Size: Standard 12-24-2019 08:07-0400 BSA (Body Surface Area) 1.67 m2 MANUEL Voss PLAT[employer] DRIER OPERATOR [facility] Work Phone: 12-24-2019 08:07-0400 Height 167.64 cm MANUELLEIGH ANN Voss LPN [facility] Work Phone: 12-24-2019 08:07-0400 Pulse (Heart Rate) 94 /min MANUEL Voss [employer]AT[employer] DRIER OPERATOR [facility] Work Phone: Comment on above: Pattern: Regular 12-24-2019 08:07-0400 Pulse Oximetry 98 % Yarelis Fitzpatrick [facility] Work Phone: Comment on above: Room air 12-24-2019 08:07-0400 Respiratory Rate 20 /min MANUEL Bipin [employer] [facility] Work Phone: Comment on [...] Mass Index) 20.98 kg/m2 Erasmo Huynh LPN [facility] Work Phone: 12-11-2019 13:040 Body Temperature 98.4 [degF] Erasmo Huynh LPN [facility] Work Phone: Comment on above: Method: Temporal 12-11-2019 13: Body weight 58.97 kg Erasmo Huynh LPN [facility] Work Phone: 12-11-2019 13:040 BSA (Body Surface Area) 1.67 m2 Erasmo Huynh LPN [facility] Work Phone: 12-11-2019 13:040 Height 167.64 cm Erasmo Huynh LPN [facility] Work Phone: 02-27-2013 [...] Phone: Comment on above: Method: Oral 02-04-2013 13:040 Body weight 57.32 kg Lizbeth Rothman RN [...] 08:51-0400 Body weight 57.32 kg Yarelis Fitzpatrick [facility] Work Phone: 06-01-2010 08:51-0400 BP [...] 08:51-0400 Pulse Oximetry 98 % Yarelis Fitzpatrick [facility] Work Phone: Comment on above: Room air 06-01-2010 08:51-0400 Respiratory Rate 17 /min Yarelis Fitzpatrick [facility] Work Phone: Comment on above: Pattern: Unlabored 06-01-2010 08:51-0400 SaO2% (BldA) [Mass fraction] 98 % Yarelis Fitzpatrick DO Work Phone: [facility]; [facility] Work Phone: Comment on above: Room air 04-30-2010 09:02-0400 Body Temperature 98.4 [degF] MANUEL Voss PLATEN DRIER OPERATOR [facility] Work Phone: Comment on above: Method: Oral 04-30-2010 09:02-0400 Body weight 58.97 kg MANUEL Voss PLATEN DRIER OPERATOR [facility] Work Phone: 04-30-2010 09:02-0400 BP Diastolic 74 mm[Hg] MANUEL Voss [facility] Work Phone: Comment on above: Patient Position: Sitting; Cuff Location : Left Arm; Cuff Size: Standard 04-30-2010 09:02-0400 BP Systolic 116 mm[Hg] MANUEL Voss [facility] Work Phone: Comment on above: Patient Position: Sitting; Cuff Location : Left Arm; Cuff Size: Standard 04-30-2010 09:02-0400 Pulse (Heart Rate) 78 /min MANUEL Voss [facility] Work Phone: Comment on above: Pattern: Regular 04-30-2010 09:02-0400 Respiratory Rate 18 /min MANUEL Voss [facility] Work Phone: Comment on above: Pattern: Unlabored 12-01-2009 14:23-0400 BMI (Body Mass Index) 21.21 kg/m2 Yarelis Fitzpatrick [facility] Work Phone: 12-01-2009 14:23-0400 Body Temperature 97.3 [degF] Yarelis Fitzpatrick [facility] Work Phone: Comment on above: Method: Oral 12-01-2009 14:23-0400 Body weight 59.62 kg Yarelis Fitzpatrick [facility] Work Phone: 12-01-2009 [...] 10-02-2009 14:24-0500 Pulse Oximetry 97 % Yarelis Amari [facility] Work [...] Respiratory Rate 20 /min Lizbeth Rothman RN [facility] Work Phone: Comment on above: Pattern: Unlabored 12-31-2008 14:31-0400 BMI (Body Mass Index) 21.21 kg/m2 [facility] Work Phone: 12-31-2008 14:31-0400 Body Temperature 98.3 [degF] [facility] Work Phone: Comment on above: Method: Oral 12-31-2008 14:31-0400 Body weight 59.62 kg [facility] Work Phone: 12-31-2008 14:31-0400 BP Diastolic 66 mm[Hg] Maria Fareri [facility] Work Phone: Comment on above: Patient Position: Sitting; Cuff Location : Left Arm; Cuff Size: Standard 12-31-2008 14:31-0400 BP Systolic 108 mm[Hg] Maria Fareri [facility] Internal Medicine Work Phone: Comment on above: Patient Position: Sitting; Cuff Location : Left Arm; Cuff Size: Standard 12-31-2008 14:31-0400 BSA (Body Surface Area) 1.67 m2 [facility] Work Phone: 12-31-2008 14:31-0400 Head Circumference 0 cm Yarelis Fitzpatrick [facility] Work Phone: 12-31-2008 14:31-0400 Head Occipital-frontal circumference 0 cm [facility]; [facility] Work Phone: 12-31-2008 14:31-0400 Height 167.64 cm [facility] Work Phone: 12-31-2008 14:31-0400 Pulse (Heart Rate) 68 /min [facility] Work Phone: Comment on above: Pattern: Regular 12-31-2008 14:31-0400 Respiratory Rate 18 /min [facility] Work Phone: Comment on above: Pattern: Unlabored 08-27-2008 15:28-0500 BMI (Body Mass Index) 19.85 kg/m2 Bonnie Patel RN [facility] Internal Medicine Work Phone: 08-27-2008 15:28-0500 Body Temperature 97.2 [degF] Bonnie Patel RN [facility] Internal Medicine Work Phone: Comment on above: Method: Oral 08-27-2008 15:28-0500 Body weight 55.79 kg Bonnie Patel RN [facility] Work Phone: 08-27-2008 15:28-0500 BP Diastolic 62 mm[Hg] Bonnie Patel RN [facility] Work Phone: Comment on above: Patient Position: Sitting; Cuff Location : Left Arm; Cuff Size: Standard 08-27-2008 15:28-0500 BP Systolic 118 mm[Hg] Bonnie Patel RN [facility] Internal Medicine Work Phone: Comment [...] 11-30-2007 13:00-0400 Head Circumference 0 cm Yarelis Saezon [facility] Work Phone: 11-30-2007 13:00-0400 [...] Date Encounter Type Care Provider Facility Start: 06-09-2025 End: 06-09-2025 ambulatory Yarelis Fitzpatrick Facility:[facility] Start: 05-12-2025 End: 05-12-2025 ambulatory [facility] Start: 04-28-2025 End: 04-28-[address] Yarelis Fitzpatrick DO Work Phone: -Laboratory Start: 04-28-2025 End: 04-28-[address] Yarelis Fitzpatrick DO -Laboratory Work Phone: Start: 04-28-2025 End: 04-28-2025 ambulatory Yarelis Fitzpatrick Facility:[facility] Start: 03-04-2025 End: 03-04-[address] Yarelis Fitzpatrick DO Work Phone: -[facility] Start: 03-04-2025 End: 03-04-[address] Rajat Tarango MD -[facility] Start: 03-04-2025 End: 03-04-2025 ambulatory Yarelis Fitzpatrick Facility:[facility] Start: 02-07-2025 ambulatory Yarelis Fitzpatrick Facilit y:[facility] Start: 01-30-2025 End: 01-30-[address] Yarelis Fitzpatrick DO Work Phone: [facility] Work Phone: Start: 01-30-2025 End: 01-30-[address] Rajat Tarango MD -Laboratory Specimen Work Phone: Start: 01-30-2025 End: 01-30-2025 ambulatory Yarelis Fitzpatrick Facility:[facility] Start: 01-11-2025 End: 01-11-[address] Yarelis Fitzpatrick DO Work Phone: [facility] Work Phone: Start: 01-11-2025 End: 01-11-2025 Patient encounter procedure NAREN [place] [facility] -Laboratory Work Phone: Start: 01-11-2025 End: 01-11-2025 ambulatory Patience [facility] Real Facility:[facility] Start: 12-21-2024 End: 12-21-[address] Yarelis Fitzpatrick DO Work Phone: [facility] Work Phone: Start: 12-21-2024 End: 12-21-[address] Yarelis Fitzpatrick DO Work Phone: -Laboratory Work Phone: Start: 12-21-2024 End: 12-21-2024 ambulatory Yarelis Fitzpatrick Facility:[facility] Start: 12-09-2024 End: 12-09-[address] [facility] Start: 12-08-2024 End: 12-08-2024 Emergency department patient visit Dr. Yarelis Fitzpatrick DO Work Phone: -Emergency Department Work Phone: Start: 11-25-2024 End: 11-25-[address] Yarelis Fitzpatrick DO Work Phone: [facility] Work Phone: Start: 11-25-2024 End: 11-25-[address] Yordan Vanegas DO -Laboratory, Specimen Work Phone: Start: 11-25-2024 End: 11-25-2024 ambulatory Yordan Vanegas Facility:[facility] Start: 11-06-2024 End: 11-06-2024 Emergency department patient visit Dr. Yarelis Fitzpatrick DO Work Phone: -Emergency Department Work Phone: Start: 11-01-2024 End: 11-01-2024 Patient encounter procedure NAREN [place] -[facility] Work Phone: Start: 11-01-2024 End: 11-01-2024 ambulatory Yarelis Fitzpatrick Facility:[facility] Start: 10-15-2024 End: 10-15-[address] Yarelis Fitzpatrick DO Work Phone: [facility] Work Phone: Start: 10-15-2024 End: 10-15-2024 Patient encounter procedure NAREN Del [place] -Cat Scan, [facility] Work Phone: Start: 10-15-2024 End: 10-15-2024 ambulatory Patience Del Real Facility:[facility] Start: 09-27-2024 End: 09-27-2024 Patient encounter procedure NAREN [place] -Laboratory Work Phone: Start: 09-27-2024 End: 09-27-2024 ambulatory Patience Del Real Facility:[facility] Start: 09-04-2024 End: 09-04-[address] Yarelis Fitzpatrick DO -Laboratory, [facility] Start: 09-04-2024 End: 09-04-2024 ambulatory Yarelis Fitzpatrick Facility:[facility] Start: 09-03-2024 End: 09-03-2024 Patient encounter procedure NAREN [facility] -[facility] Start: 09-03-2024 End: 09-03-2024 ambulatory Patience Del Real Facility:[facility] Start: 08-30-2024 End: 08-30-2024 Patient encounter procedure NAREN [place] -[facility] Work Phone: Start: 08-30-2024 End: 08-30-2024 ambulatory Alis Mcclain RN NURSE DURAL MECHANIC Comment on above: Information Start: 08-28-2024 End: 08-28-2024 Patient encounter procedure Kimberly Jacobson FIGURE CLERK-C -Cat Scan, [facility] Work Phone: Start: 08-27-2024 End: 08-27-[address] Balta Whipple MD -[facility] Start: 08-27-2024 End: 08-28-2024 ambulatory Yarelis Fitzpatrick Facility:[facility] Start: 08-27-2024 End: 08-27-2024 ambulatory Yarelis Fitzpatrick Facility:[facility] Start: 2024 End: 2024 Subsequent hospital visit by physician Dylon Vazquez MD Work Phone: [facility] Comment on above: Common variable immu nodeficiency; Low serum IgG for age; Recurrent infections Start: 2024 End: 2024 ambulatory DYLON VAZQUEZ [facility] Start: 08-17-2023 End: 08-17-[address] Yarelis Fitzpatrick Work Phone: [facility] Work Phone: Start: 08-17-2023 End: 08-17-[address] Yarelis Fitzpatrick Work Phone: [facility]-Pulmonary Services/Neurology Work Phone: Start: 08-15-2023 End: 08-15-[address] Yarelis Fitzpatrick Work Phone: [facility]-Pulmonary Medicine [facility] Work Phone: Start: 07-17-2023 Non-patient / Non-visit Dr. Shannon Fitzpatrick Work Phone: [facility] Start: 07-14-2023 End: 07-14-[address] Yarelis Fitzpatrick Work Phone: [facility] Work Phone: Start: 07-14-2023 End: 07-14-[address] Yarelis Fitzpatrick Work Phone: [facility]-Pulmonary Services/Neurology Work Phone: Start: 02-13-2023 End: 02-13-2023 Subsequent hospital visit by physician Dylon Vazquez MD Work Phone: [facility] Comment on above: Recurrent infections ; Low serum IgG for age Start: 01-24-2023 End: 01-24-[address] Yarelis Fitzpatrick Work Phone: [facility] Work Phone: Start: 01-24-2023 End: 01-24-[address] Yarelis Fitzpatrick Work Phone: [facility]-Laboratory, Specimen Start: 01-24-2023 End: 01-24-[address] Yarelis Fitzpatrick Work Phone: [facility]-Pulmonary Medicine [facility] Start: 01-05-2023 End: 01-11-2023 Office outpatient visit 15 minutes Yarelis Amari DO Work Phone: [facility] Start: 01-04-2023 End: 01-04-2023 Phone Encounter Yarelis Amari DO Work Phone: [facility] Start: 01-02-2023 End: 01-02-[address] Yarelis Fitzpatrick Work Phone: [facility] Start: 12-30-2022 ambulatory Yarelis Amari DO [facility] Start: 12-30-2022 End: 12-30-2022 Office outpatient visit 15 minutes Yarelis Amari DO Work Phone: [facility] Start: 12-21-2022 End: 12-21-2022 Phone Encounter Yarelis Amari DO Work Phone: [facility] Start: 12-16-2022 End: 12-16-[address] Yarelis Fitzpatrick Work Phone: [facility] Radiology Start: 12-16-2022 End: 12-18-2022 Office outpatient visit 25 minutes Yarelis Amari DO Work Phone: [facility] Start: 12-05-2022 End: 12-05-2022 Office outpatient visit 10 minutes Yarelis Amari DO Work Phone: [facility] Start: 11-08-2022 End: 11-08-2022 Phone Encounter Yarelis Amari DO Work Phone: [facility] Start: 11-06-2022 End: 11-07-2022 Emergency department patient visit [facility]-Emergency Department Start: 11-06-2022 End: 11-06-2022 Patient encounter procedure Abrahan Peterson APRN.SSIS ETL DEVELOPER Work Phone: [facility] Comment on above: Sinobronchitis (Prim juliana [...] Internal Medicine Start: 04-26-2022 End: 04-26-2022 ambulatory [facility] Work Phone: Start: 04-26-2022 End: 04-26-2022 Patient encounter procedure [facility]-Radiology, [facility] Start: 04-26-2022 End: 05-03-2022 Office outpatient visit 15 minutes Yarelis Amari DO Work Phone: [facility] Start: 04-08-2022 End: 04-08-2022 ambulatory [facility] Work Phone: Start: 04-08-2022 End: 04-08-2022 Patient encounter procedure [facility]-Outpatient Breast Imaging Start: 02-22-2022 End: 02-22-2022 Office outpatient visit 10 minutes Yarelis Amari DO Work Phone: [facility] Start: 01-23-2022 End: 01-23-2022 Patient encounter procedure Abrahan Peterson APRNStephenSSIS ETL DEVELOPER Work Phone: [facility] Comment on above: Lower resp. tract in fection (Primary Dx); Conjunctivitis of both eyes, unspecified conjunctivitis type Start: 10-15-2021 End: 10-15-2021 Office outpatient visit 15 minutes Yarelis Amari DO Work Phone: [facility] Start: 08-11-2021 End: 08-11-2021 Subsequent hospital visit by physician Xr [facility] Work Phone: Radiology Comment on above: Cough [...] 03-04-2020 End: 03-04-2020 Annotation/Addendum Yarelis Amari [facility] Start: 02-28-2020 End: 02-28-2020 Annotation/Addendum Yarelis Amari [facility] Start: 01-10-2020 End: 01-10-2020 Office outpatient visit 15 minutes Yarelis Fitzaptrick [facility] Start: 01-07-2020 End: 01-07-2020 Annotation/Addendum Yarelis Amari [facility] Start: 12-30-2019 End: 12-30-2019 Office outpatient visit 15 minutes Yarelis Fitzpatrick [facility] Start: 12-24-2019 End: 12-24-2019 Office outpatient visit 15 minutes Yarelis Fitzpatrick [facility] Start: 12-23-2019 End: 12-23-2019 Annotation/Addendum Yarelis Amari [facility] Start: 12-18-2019 End: 12-24-2019 Office outpatient visit 40 minutes Yarelis Fitzpatrick [facility] Start: 12-16-2019 End: 12-16-2019 Annotation/Addendum Yarelis Amari [facility] Start: 12-16-2019 End: 12-16-2019 Office outpatient visit 15 minutes Yarelis Fitzpatrick [facility] Start: 12-12-2019 End: 12-12-2019 Office outpatient visit 5 minutes Yarelis Fitzpatrick [facility] Start: 12-11-2019 End: 12-11-2019 Office outpatient visit 25 minutes Yaerlis Fitzpatrick [facility] Start: 02-27-2013 End: 02-27-2013 Patient encounter procedure Yarelis Fitzpatrick [facility] Start: 02-04-2013 End: 02-04-2013 Patient encounter procedure Yarelis Fitzpatrick [facility] Start: 06-01-2010 End: 06-01-2010 Office outpatient visit 25 minutes Yarelis Fitzpatrick [facility] Start: 04-30-2010 End: 04-30-2010 Office outpatient visit 25 minutes Yarelis Fitzpatrick [facility] Start: 12-01-2009 End: 12-01-2009 Office outpatient visit 25 minutes Yarelis Fitzpatrick [facility] Start: 10-02-2009 End: 10-02-2009 Patient encounter procedure Yarelis Fitzpatrick [facility] Start: 10-02-2009 End: 10-02-2009 Office outpatient visit 15 minutes Yarelis Fitzpatrick [facility] Start: 01-27-2009 End: 01-27-2009 Patient encounter procedure Yarelis Amari [facility] Internal Medicine Start: 12-31-2008 End: 12-31-2008 Office outpatient visit 15 minutes Yarelis Morrison Internal Medicine Start: 08-27-2008 End: 08-27-2008 Patient encounter procedure Yarelis Amari [facility] Internal Medicine Start: 11-30-2007 End: 11-30-2007 Patient encounter procedure Yarelis Fitzpatrick [facility] Internal Medicine Start: 11-20-2007 End: 11-20-2007 Historical Summary Yarelis Morrison Business Initiatives Manager al Medicine Start: 11-19-2007 End: 11-19-2007 Patient encounter procedure Yarelis Fitzpatrick [facility] Internal Medicine Procedures Date Procedure Procedure Detail Performing Clinician Start: 04-28-[address] Yarelis Fitzpatrick DO Work Phone: Comment on above: Test Ordered: [id number] Apolipoprotein BApo lipoprotein B 83 mg/dL BN Reference Range: <90 Desirable < 90 Borderline High 90 - 99 High 100 - 130 Very High >130 ASCVD RISK THERAPEUTIC TARGET CATEGORY APO B (mg/dL) Very High Risk <80 (if extreme risk <70) High Risk <90 Moderate Risk <90Performed at: [facility] [address] [id number] Director: Kenney Andersen MD, Phone: [phone] at: [facility] [address] [id number] Director: Ramsey Oleary PhD, Phone: [phone] Test Ordered: [id number] Anti-MPO AntibodiesAnti-MPO Antibodies <0.2 units BN Reference Range: 0.0-0.9Performed at: [facility] [id number] Director: Kenney Andersen MD, Phone: [phone] at: [facility] [address] [id number] Director: Ramsey Oleary PhD, Phone: [phone] Start: 03-04-2025 Positron emission tomography with computed [...] Dajuan Fitzpatrick DO Work Phone: Start: 09-04-2024 Lvioz-[id number] measurement Dr. Briseida Fitzpatrick DO Work Phone: Comment on above: [facility] Electrochemiluminescen ce Immunoassay(ECLIA)Values obtained with different assay methods or kits cannotbe used interchangeably. Results cannot be interpreted asabsolute evidence of the presence or absence of malignantdisease.This test is not interpretable in females.Performed at: [address] [id number] Director: Ramsey Oleary PhD, Phone: [phone] Start: 09-04-[address] Bubba [...] Visit Report Procedure Note: See Note; NOTES: [facility] [address] [place] [address] OFFICE VISIT Date of Service: 01/24/23 MR#: [id number] Acct: [id number] Name: OFE GIEMNEZ Rep #: [id number] : 1975 Provider: Dr. Rakesh Meeks DO Age/Sex: 47/F Location: [facility] Status: Signed Assessment and Plan Assessment and Plan (1) Bronchiectasis: Status: Acute Plan: The patient presented today for the evaluation of a CT chest which demonstrated bilateral bronchiectasis and apical scarring. The patient has a history of frequent hospitalizations for pneumonia. Her PCP recently referred her to a local first aid instructor as she was noted to have an [...] after she has been evaluated by the punchboard assembler. The patient may require a prolonged antibiotic [...] referred to Dr. Vazquez of immunology in [place]. She is currently scheduled to see the [...] air Intake Visit Reasons: Abnormal CT scan Deep Tissue Massage Therapist Required: No DME Vendor: n/a Accompanied by: [...] WITH Contrast Procedure Note: See Note; NOTES: [facility] Imaging Services [address] [place] [address] Chest WITH Contrast MR#: [id number] Acct: [id number] Name: OFE GIMENEZ Rep #: [id number] : 1975 F 47 From: Ugo Oakes MD PCP: Dr. Yarelis Fitzpatrick, DO Status: REG CLI Study: Chest WITH Contrast Date of Exam: 01/02/23 Exam# [id number] Ordering Dr: Heydi Meier DO INDICATION: Cough. [...] THYROID: No thyroid lesions within the study [id number]. HEART AND PERICARDIUM: Heart size is normal. [...] Heydi Meier DO; Dr. Yarelis Fitzpatrick DO Account Liaison: Signed Heydi Meier DO Work Phone: Start: 01-02-2023 CT of thorax with contrast Dr. Yarelis Fitzpatrick Work Phone: Start: 12-16-2022 End: 12-17-2022 Chest PA and Lateral Procedure Note: See Note; NOTES: [facility] Radiology [address] [place] [address] Chest PA and Lateral MR#: [id number] Acct: [id number] Name: OFE GIMENEZ Rep #: [id number] : 1975 F 47 From: Yissel Caldwell MD PCP: Dr. Yarelis Fitzpatrick, DO Status: DEP AMB Study: Chest PA and Lateral Date of Exam: 12/16/22 Exam# [id number] Ordering Dr: Heydi Meier DO We are [...] Heydi Meier DO; Dr. Yarelis Fitzpatrick DO Account Liaison: Signed Heydi Meier DO Work Phone: Start: 12-16-2022 Plain chest X-ray Dr. Yarelis Fitzpatrick Work Phone: Start: 11-06-2022 End: 11-07-2022 Abdomen/Pelvis without Cont Procedure Note: See Note; NOTES: [facility] Imaging Services [address] [place] [address] Abdomen/Pelvis without Cont MR#: [id number] Acct: [id number] Name: OFE GIMENEZ Rep #: [id number] : 1975 F 47 From: Rao pinedo MD PCP: Dr. Yarelis Fitzpatrick DO Status: REG ER Study: Abdomen/Pelvis without Cont Date of Exam: 10/19 05/13 Exam# [id number] Ordering Dr: Adelfo Solis DO EXAM: CT [...] reconstruction technique. This report was created using [employer] report generation technology. RADIATION DOSE: Total DLP: [...] Adelfo Solis DO; Dr. Yarelis Fitzpatrick DO Account Liaison: Signed Yarelis Fitzpatrick DO Work Phone: Start: 11-06-2022 CT of abdomen and pelvis without contrast Start: 11-06-2022 End: 11-07-2022 Emergency Department Summary Procedure Note: See Note; NOTES: [facility] Medical Records Department [address] [place] [address] Emergency Department Summary 11/06/22 MR#: [id number] Acct: [id number] Name: OFE GIMENEZ Rep #: [id number] : 1975 47 From: Adelfo Solis DO [...] % (Auto) 66.8 Lymph % (Auto) 25.4 [place] % (Auto) 6.8 Eos % (Auto) 0.0 [...] Color Urine Clarity Urine pH Ur Specific [place] Urine Protein Urine Glucose (UA) Urine Ketones Urine Occult Blood Urine Nitrite Urine Bilirubin Urine Urobilinogen Ur Leukocyte Esterase Urine RBC Urine WBC Ur Squamous Epith Cells Amorphous Sediment Urine Bacteria Urine Mucus 11/06/22 22:27 WBC RBC Hgb Hct MCV MCH MCHC RDW Std Deviation RDW Coeff of Mendy Plt Count MPV Immature Gran % (Auto) Neut % (Auto) Lymph % (Auto) [place] % (Auto) Eos % (Auto) Baso % (Auto) Absolute Neuts (auto) Absolute Lymphs (auto) Nucleated RBC % Sodium Potassium Chloride Carbon Dioxide Anion Gap BUN Creatinine Estim Creat Clear Calc Est GFR (MDRD) Af Amer Est GFR (MDRD) Non-Af BUN/Creatinine Ratio Glucose Calcium Serum , Qual Urine Color Yellow Urine Clarity Sl. Cloudy Urine pH 6.5 Ur Specific [place] 1.020 Urine Protein 30 H Urine Glucose [...] 0:01 EDT Reading Location ID and State: [facility] / [place] Tel , Service support , Discharge Plan [...] problems, contact your Primary Care Provider. Call [facility] ([phone]) or report to the closest Emergency Room. Call 911 if necessary. 11/07/22 0041 <Electronically signed by Adelfo Solis DO> Cosigner Signature (if applicable): CC: Dr. Yarelis Fitzpatrick, Signed Yarelis Fitzpatrick DO Work Phone: Start: 04-26-2022 End: 04-28-2022 Chest PA and Lateral Procedure Note: See Note; NOTES: [facility] Imaging Services [address] [place] [address] Chest PA and Lateral MR#: [id number] Acct: [id number] Name: OFE GIMENEZ Rep #: [id number] : 1975 F 46 From: Mónica Werner MD PCP: Dr. Yarelis Fitzpatrick DO Status: REG CLI Study: Chest PA and Lateral Date of Exam: 04/26/22 Exam# [id number] Ordering Dr: Kimberly Jacobson STUDY: X-RAY CHEST [...] 4:43 EDT Reading Location ID and State: [facility] / [place] , Service support , CC: FIGURE CLERK-Sly Jacobson; Dr. Yarelis Fitzpatrick DO Account Liaison: Signed Yarelis Fitzpatrick DO Work Phone: Start: 04-26-2022 Plain chest X-ray Start: 04-08-2022 Screening mammography Start: 04-08-2022 End: 04-08-2022 SCRN MAMM (CAD)W/PIERCE BILAT Procedure Note: See Note; NOTES: [facility] Imaging Services [address] [place] [address] SCRN MAMM (CAD)W/PIERCE BILAT MR#: [id number] Acct: [id number] Name: OFE GIMENEZ Rep #: [id number] : 1975 F 46 From: Luis doherty MD PCP: Dr. Yarelis Fitzpatrick DO Status: REG CLI Study: SCRN MAMM (CAD)W/PIERCE BILAT Date of Exam: 03/21 05/12 Exam# [id number] Ordering Dr: Redd Boss MD MAMMOGRAPHY - [...] delay biopsy of a clinically suspicious abnormality. [id number] Electronically Signed: Luis Rossi MD at 9:29 EDT , CC: Dr. Redd Boss MD; Dr. Yarelis Fitzpatrick DO Account Liaison: Signed Yarelis Fitzpatrick DO Work Phone: Start: 08-11-2021 Radiologic exam chest 2 views Len Marinelli APRN.[employer]IS ETL DEVELOPER Work Phone: Start: 04-01-2021 End: 04-01-2021 Breast Limited Unilateral Comments: See Note; NOTES: [facility] Imaging Services [address] [place] [address] Breast Limited Unilateral MR#: [id number] Acct: [id number] Name: OFE GIMENEZ Rep #: [id number] : 1975 F 45 From: Luis doherty MD PCP: Dr. Yarelis Fitzpatrick DO Status: REG CLI Study: Breast Limited Unilateral Date of Exam: Exam# [id number] Ordering Dr: Redd Boss MD STUDY: ULTRASOUND [...] Redd Boss MD; Dr. Yarelis Fitzpatrick DO Account Liaison: Signed Yarelis Fitzpatrick DO Work Phone: Start: 03-30-2021 End: 03-31-2021 SCRN MAMM (CAD)W/PIERCE BILAT Comments: See Note; NOTES: [facility] Imaging Services [address] [place] [address] SCRN MAMM (CAD)W/PIERCE BILAT MR#: [id number] Acct: [id number] Name: OFE GIMENEZ Rep #: [id number] : 1975 F 45 From: Luis doherty MD PCP: Dr. Yarelis Fitzpatrick, Status: PRE CLI Study: SCRN MAMM (CAD)W/PIERCE BILAT Date of Exam: 03/21 Exam# [id number] Ordering Dr: Redd Boss MD MAMMOGRAPHY - [...] delay biopsy of a clinically suspicious abnormality. [id number] Electronically Signed: Luis Rossi MD at 8:20 EDT , Service support , CC: Dr. Redd Boss MD; Dr. Yarelis Fitzpatrick DO Account Liaison: Signed Yarelis Fitzpatrick DO Work Phone: Start: 09-12-2020 End: 09-12-2020 Discharge Instruction Comments: See Note; NOTES: [facility] Medical Records Department [address] [place] [address] Discharge Instruction 09/12/20 MR#: [id number] Acct: [id number] Name: OFE GIMENEZ Rep #: [id number] : 1975 45 From: Isac Middleton MD [...] problems, contact your Primary Care Provider. Call [facility] ([phone]) or report to the closest Emergency Room. Call 911 if necessary. 09/12/20 1704 <Electronically signed by Isac Middleton MD> Date Isac Middleton MD Cosigner Signature (If Indicated): Date CC: DO Yarelis Amor Start: 09-12-2020 End: 09-12-2020 Emergency Department Summary Comments: See Note; NOTES: [facility] Medical Records Department [address] [facility] [place] [address] Emergency Department Summary 09/12/20 MR#: [id number] Acct: [id number] Name: OFE GIMENEZ Rep #: [id number] : 1975 45 From: Isac Middleton MD [...] pneumonia Leukocytosis This note was generated with [employer] software. It may contain incorrect words, spelling, [...] problems, contact your Primary Care Provider. Call [facility] ([phone]) or report to the closest Emergency Room. Call 911 if necessary. 09/12/20 1704 <Electronically signed by Isac Middleton MD> Date Isac Middleton MD Cosigner Signature (If Indicated): Date CC: DO Yarelis Amor Start: 09-12-2020 End: 09-12-2020 Chest 1 View (Portable) Comments: See Note; NOTES: [facility] Imaging Services [address] [place] [address] Chest 1 View (Portable) MR#: [id number] Acct: [id number] Name: OFE GIMENEZ Rep #: [id number] : 1975 F 45 From: David Loyola DO PCP: Dr. Yarelis Fitzpatrick DO Status: PRE ER Study: Chest 1 View (Portable) Date of Exam: 09/12/20 Exam# [id number] Ordering Dr: Isac Middleton MD STUDY: X-RAY [...] David Loyola DO at 11:24 EST Tel [phone], Service support , CC: Dr. Isac Middleton MD; Dr. Yarelis Fitzpatrick DO Account Liaison: Signed Yarelis Fitzpatrick Start: 12-23-2019 End: 12-23-2019 Chest WITH Contrast Comments: See Note; NOTES: [facility] Imaging Services [address] [place] [address] Chest WITH Contrast MR#: [id number] Acct: [id number] Name: OFE GIMENEZ Rep #: [id number] : 1975 F 44 From: Luis doherty MD PCP: Yarelis Fitzpatrick DO Status: REG CLI Study: Chest WITH Contrast Date of Exam: 12/23/19 Exam# [id number] Ordering Dr: Katia Desai STUDY: CT CHEST [...] , CC: DARRYN Desai; Yarelis Fitzpatrick DO Account Liaison: Ethan Katia Desai Work Phone: H/O: section Section As scottdavon Cristhian PLATEN DRIER OPERATOR Comment on above: H/O: section Section Mo anna Huynh PLATEN DRIER OPERATOR Comment on above: H/O: section Section Eriberto Sorensen HEARING AID FITTER Comment on above: H/O: section Section Fermin Calderon MA Comment on above: H/O: section Section Mo anna Huynh PLATEN DRIER OPERATOR Comment on above: H/O: section Section Ka bijan Escobar HEARING AID FITTER Comment on above: H/O: section Section Ch natividad Lemon HEARING AID FITTER Comment on above: H/O: section Section Ch natividad Lemon HEARING AID FITTER Comment on above: H/O: section Section An martina Michelle PLATEN DRIER OPERATOR Comment on above: H/O: section Section Ch natividad Lemon HEARING AID FITTER Comment on above: H/O: section Section Radha Matute MA Comment on above: Investigation of tra nsfusion reaction Dr. Yarelis Fitzpatrick Work Phone: Respiratory microbial culture Dr. Yarelis Fitzpatrick Work Phone: Plan of Treatment Date Care Activity Detail Author Start: 01-30-2025 Respiratory microbial culture Respiratory Culture [facility] Start: 01-11-2025 Respiratory microbial culture Respiratory Culture [facility] Start: 12-09-2024 End: 12-09-2024 Patient encounter procedure 12/09/2024 10:40 AM EDT Office Visit [facility] [address] [place] [address] [place] [address] 6 month follow up [facility] Comment on above: 6 month follow up Start: 12-09-2024 Measurement of respiratory function [facility] Start: 12-08-2024 [facility] Start: 11-06-2024 End: 11-06-2024 [facility] Start: 11-06-2024 Streptococcus pneumoniae antigen assay [facility] Start: 11-06-2024 [facility] Start: 11-06-2024 Bacteria identified in Blood by Culture Blood Culture [facility] Start: 11-06-2024 Legionella Antigen Legionella Antigen [facility] Start: 11-06-2024 Microscopic observation [Identifier] in Unspecified specimen by Gram stain [facility] Start: 11-06-2024 Respiratory Culture Respiratory Culture [facility] Start: 11-06-2024 Streptococcus pneumoniae Antigen (M Streptococcus pneumoniae Antigen (M [facility] Start: 11-01-2024 Patient referral [facility] Work Phone: Start: 04-21-2024 Covid-19 Vaccine ( season) Covid-19 Vaccine ( season) [facility] Start: 04-21-2024 FLU (#1) FLU (#1) [facility] Start: 04-21-2024 Influenza vaccination Influenza Vaccine (#1) [facility] Start: 2023 Pneumococcal Vaccine: 50+ (2 of 2 - PCV) Pneumococcal Vaccine: 50+ (2 of 2 - PCV) [facility] Start: 2023 Shingrix Vaccine (1 of 2) Shingrix Vaccine (1 of 2) [facility] Start: 04-21-2023 FLU (Season Ended) FLU (Season Ended) [facility] Start: 01-05-2023 Procedure Education Eprescribed prescriptions [...] antb titer ea antibody P-ANCA & C-ANCA (06902) [facility]; [facility] Work Phone: Start: 12-16-2022 Blood count complete auto&auto difrntl wbc CBC W/AUTO DIFF WBC (86368) [facility]; [facility] Work Phone: Start: 12-16-2022 Comprehensive metabolic panel METABOLIC PANEL, COMPREHENSIVE (01849) [facility]; [facility] Work Phone: Start: 12-16-2022 Protein total xcpt refractometry urine UPEP (80729) [facility]; [facility] Work Phone: Start: 12-16-2022 Protein electrophoretic fractj&quantj serum SPEP (76462) [facility]; [facility] Work Phone: Start: 12-16-2022 Assay of gammaglobulin ige Immunoglobulins, Quantitative, IgA,IgE, IgG, IgM (46881) [facility]; [facility] Work Phone: Start: 12-16-2022 Lactate dehydrogenase ldh LDH (LD) (LACTATE DEHYDROGENASE) (81175) [facility]; [facility] Work Phone: Start: 12-16-2022 Blood count reticulocyte automated RETICULOCYTE COUNT (56230) [facility]; [facility] Work Phone: Start: 12-16-2022 Iron binding capacity Iron Binding Capacity (TIBC) (11542) [facility]; [facility] Work Phone: Start: 12-16-2022 Assay of ferritin Ferritin (89938) [facility]; [facility] Work Phone: Start: 12-16-2022 Assay of iron Iron (40157) [facility]; [facility] Work Phone: Start: 12-16-2022 Cyanocobalamin vitamin b-12 Vitamin B-12 (cyanocobalamin) (81702) [facility]; [facility] Work Phone: Start: 12-05-2022 Assay of gammaglobulin ige Immunoglobulins Iga/Ige/Igg/Igm (GAME) (96798) [facility]; [facility] Work Phone: Start: 11-07-2022 Patient discharge [facility] Start: 10-14-2022 Procedure Education Eprescribed prescriptions [...] Phone: Start: 08-21-2022 DEPRESSION ASSESSMENT DEPRESSION ASSESSMENT [facility] Start: 2022 Procedure Education Eprescribed prescriptions (G8553) [facility]; [facility] Work Phone: Start: 04-26-2022 Procedure Education Eprescribed prescriptions (G8553) [facility]; [facility] Work Phone: Start: 04-21-2022 Influenza vaccination [facility] Start: 02-22-2022 Procedure Education Eprescribed prescriptions [...] Iaadiadoo influenza 2019 Novel Coronavirus (COVID-19), MICHELLE (02117) [facility]; [facility] Work [...] gammaglobulin iga igd igg igm each IGA/IGD/IGG/IGM-EACH (62253) [facility] Work Phone: Comment on above: send all labs to Dr. oates Start: 12-30-2019 Fluorescent nonnfct agt antb screen ea antibody FLURESCNT ANTIB SCRN EA (82918) celiac profile [facility] Work Phone: Start: 12-30-2019 Immunoassay analyte qual/semiqual multiple step IMMUNOASSAY, ANALYTE (NON-INFECT) (75956) celiac profile [facility] Work Phone: Start: 12-24-2019 Assay of iron Iron (88525) [facility]; [facility] Work Phone: Start: 12-24-2019 Iron [Mass/Vol] Iron (15644) [facility] Work Phone: Start: 12-24-2019 Tb cell mediated antign respnse gamma interferon QuantiFERON-TB Gold Plus (QFT-Plus) (16195) [facility] Work Phone: Start: 12-16-2019 SARS-CoV-2 Antibody, IgG SARS-CoV-2 Antibody, IgG [facility] Work Phone: Start: 12-16-2019 Procedure Education Eprescribed prescriptions (G8553) [facility] Work Phone: Start: 12-11-2019 Procedure Education Eprescribed prescriptions (G8553) [facility] Work Phone: Start: 12-11-2019 Provider Instructions for Treatment [facility] Work Phone: Start: 2018 COLOGUARD (FIT-DNA) COLOGUARD (FIT-DNA) [facility] Start: 2018 Colonoscopy COLONOSCOPY [facility] Start: 2018 COLORECTAL CANCER SCREENING COLORECTAL CANCER SCREENING [facility] Start: [address] COLONOGRAPHY [facility] Start: 2018 DIABETES SCREEN DIABETES SCREEN [facility] Start: 2018 Diabetes Screening Diabetes Screening [facility] Start: 2018 FECAL OCCULT BLOOD FECAL OCCULT BLOOD [facility] Start: 2018 Lipid panel Lipid Screening [facility] Start: 2018 LIPID SCREEN LIPID SCREEN [facility] Start: 2018 Screening for malignant neoplasm of colon [facility] Start: 2018 SIGMOIDOSCOPY SIGMOIDOSCOPY [facility] Start: 2013 Mammography MAMMOGRAM [facility] Start: 2013 Screening for malignant neoplasm of breast Mammogram Screening [facility] Start: 02-04-2013 Provider Instructions for Treatment [facility] Work Phone: Start: 06-01-2010 Provider Instructions for Treatment [facility] Work Phone: Start: 06-01-2010 Cul bact xcpt urine blood/stool aerobic isol CULTURE, SPUTUM (78848) [facility] Work Phone: Start: 04-30-2010 [...] Start: 11-19-2007 Glucose [Mass/Vol] Glucose, PP/2 Hour (57637) [facility] Work Phone: Start: 11-19-2007 Glucose quantitative blood xcpt reagent strip Glucose, PP/2 Hour (89744) [facility]; [facility] Work Phone: Start: 11-19-2007 Lipid panel LIPID PANEL (01807) [facility] Work Phone: Start: 2003 HPV TESTING HPV TESTING [facility] Start: 1994 Microscopic observation [Identifier] in Cervix by Cyto stain Pap Smear [facility] Start: 1994 PAP TESTING PAP TESTING [facility] Start: 1994 Screening for malignant neoplasm of cervix Cervical Cancer Screening [facility] Start: 1992 Hepatitis B (1 of 3 - 19+ 3-dose series) Hepatitis B (1 of 3 - 19+ 3-dose series) [facility] Start: 1992 Hepatitis B Vaccine (1 of 3 - 19+ 3-dose series) Hepatitis B Vaccine (1 of 3 - 19+ 3-dose series) [facility] Start: 1992 Urine microalbumin profile [facility] Start: 1991 Anxiety Screening Anxiety Screening [facility] Start: 1991 Depression Screening Depression Screening [facility] Start: 1991 HEPATITIS C SCREENING HEPATITIS C SCREENING [facility] Start: 1991 Hepatitis C screening Hepatitis C Screening [facility] Start: 1991 HIV SCREENING HIV SCREENING [facility] Start: 1991 HIV screening HIV Screening [facility] Start: 1989 MenB (1 of 2 - MenB 2-Dose Series Bexsero) MenB (1 of 2 - MenB 2-Dose Series Bexsero) [facility] Start: 1986 Varicella (1 of 2 - 13+ 2-dose series) Varicella (1 of 2 - 13+ 2-dose series) [facility] Start: 1985 Adult depression screening assessment DEPRESSION SCREENING [facility] Start: 1980 Tetanus Diphtheria and Pertussis Vaccines (1 - Tdap) Tetanus Diphtheria and Pertussis Vaccines (1 - Tdap) [facility] Start: 1978 COVID-19 (#1) COVID-19 (#1) [facility] Start: 1978 COVID-19 VACCINE (#1) COVID-19 VACCINE (#1) [facility] Start: 1974 MMR (1 of 1 - Standard series) MMR (1 of 1 - Standard series) [facility] Start: 1974 Varicella (1 of 2 - 2-dose childhood series) Varicella (1 of 2 - 2-dose childhood series) [facility] Start: 1973 COVID-19 (#1) COVID-19 (#1) [facility] Start: 1973 COVID-19 VACCINE (#1) COVID-19 VACCINE (#1) [facility] Start: 1973 HEPATITIS B (1 of 3 - 3-dose series) HEPATITIS B (1 of 3 - 3-dose series) [facility] Bacteria identified in Sputum by Culture [facility] Bacteria identified in Sputum by Respiratory culture [facility] CT Chest WO contrast [facility] Legionella pneumophi la Ag [Presence] in Urine [facility] Lymphocyte Profile Lymphocyte Pr ofile Lab Routine Recurrent infections Low serum IgG for age 0602/13/2023 4:37 PM EDT [facility] Work Phone: Lymphocyte Proliferation, Mitogens Lymphocyte Proliferation, Mitogens Lab Routine Recurrent infections Low serum IgG for age 0602/13/2023 4:37 PM EDT [facility] Measurement of respiratory function [facility] Measurement of respiratory function [facility] Patient Education [facility] Work Phone: Patient referral [facility] Work Phone: S. Pneumo IGG ABS, 2 3 Serotypes S. Pneumo IGG ABS, 23 Serotypes Lab Routine Recurrent infections Low serum IgG for age 0602/13/2023 4:37 PM EDT [facility] Tetanus toxoid, IgG Abs Tetanus toxoid, IgG Abs Lab Routine Recurrent infections Low serum IgG for age 0602/13/2023 4:37 PM EDT [facility] Work Phone: Comprehensive [...] 23 valent Abrahan Peterson APRN.CNP Work Phone: [facility] Payers Date Payer Category Payer Self-pay [id number] [facility] 2022 Unknown [id number] 2021 Unknown [id number] 2020 Unknown [id number] 2019 Unknown 2019 Unknown [employer] PPO [id number] 2019-Present [phone] [address] [place] [address] PPO [id number] 2008 Unknown [id number] 2006 Unknown [id number] 1975 Unknown [id number] 2.16840.1.814425.3.579.2.716 1975 Unknown [id number] 2.840.1.795760.3.579.2.479 1975 Unknown [id number] 2.840.1.904108.3.579.2.479 1975 Unknown [id number] 2.840.1.132341.3.579.2.479 1975 Unknown [id number] 2.16.840.1.192556.3.579.2.479 Self-pay SELF PAY ER DEPOSIT [id number] Unknown [facility] [id number] Unknown 0 Unknown [id number] 2.16840.1.492155.3.579.2.462 Unknown [id number] 2.16840.1.837499.3.579.2.462 Unknown [id number] 2.16.840.1.146139.3.579.2.462 Unknown [id number] 2.16.840.1.804503.3.579.2.462 Unknown [id number] 2.16.840.1.701101.3.579.2.462 Unknown [id number] 2.16.840.1.259624.3.579.2.462 Unknown [id number] 2.16.840.1.825979.3.579.2.462 Unknown [id number] 2.16.840.1.495397.3.579.2.462 Unknown [id number] 2.16.840.1.238545.3.579.2.462 Unknown [id number] 2.16.840.1.133960.3.579.2.462 Unknown [id number] 2.16.840.1.773278.3.579.2.462 Unknown [id number] 2.16.840.1.363522.3.579.2.462 Unknown [id number] 2.16.840.1.569820.3.579.2.462 Unknown [id number] 2.16.840.1.245096.3.579.2.462 Unknown [id number] 2.16.840.1.993442.3.579.2.462 Unknown [id number] 2.16.840.1.887254.3.579.2.462 Unknown [id number] 2.16.840.1.127982.3.579.2.462 Unknown [id number] 2.16.840.1.042057.3.579.2.462 Unknown [id number] 2.16.840.1.647469.3.579.2.462 Unknown [id number] 2.16.840.1.979798.3.579.2.462 Social History Date Type Detail Facility Start: 07-25-2020 End: 08-11-2021 Caffeine Use Caffeine Use [facility] [employer] [facility] Work Phone: Comment on above: qd Light Lives with spouse 2 [employer] Start: 11-04-2011 End: 12-08-2024 Tobacco smoking status NHIS Never smoked tobacco [facility] Start: 01-23-2022 End: 11-06-2022 Alcohol intake Not Asked [facility] Start: 1975 Sex Assigned At Not on file [facility] Start: 01-13-2022 End: 01-23-2022 Exposure to SARS-CoV-2 (event) Not sure [facility] Work Phone: Start: 09-12-2020 End: 08-15-2023 Tobacco smoking status NHIS Unknown if ever smoked [facility] Start: 1975 Sex Assigned At Female [facility] Start: 11-04-2011 End: 07-07-2023 Tobacco use and exposure Smokeless tobacco non-user [facility] Work Phone: Start: 07-25-2020 End: 08-11-2021 Gender identity Not on file [facility] National Score (1-100), lower number is lower risk Not on file [facility] Start: 10-28-2024 End: 12-08-2024 Sex Female (finding) [facility] NEGATED: Highlighted row [facility] NEGATED: Highlighted rowStart: NINF History of tobacco use Passive smoker [facility] Mental Status Date Assessment Result Facility 12-08-2024 Cognitive function Awake;Alert;A ppropriate;Follow s Commands [facility] Work Phone: 11-06-2024 Cognitive function Level Of Cons ciousness Awake;Alert;Appropriate;Follow s Commands [facility] Work Phone: Clinical Notes 05-14-2021 to 12-08-2024 Note Date & Type Note Facility 12-08-2024 Discharge summary [facility] 12-08-2024 Radiology Diagnostic study note [facility] Imaging Services [address] [place], [place] [address] Chest PA and Lateral MR#: [id number] Acct: [id number] Name: OFE GIMENEZ Rep #: [id number] : 1975 F 49 From: Celena Blake MD PCP: Dr. Yarelis Fitzpatrick DO Status: FL E ER Study:Chest PA and Lateral Date of Exam: 12/08/24 Exam# [id number] Ordering Dr: Magy Mai MD PROCEDURE: CHEST [...] infiltrate or consolidation is seen. Reading Location: [facility] CC: Dr. Yarelis Fitzpatrick DO; Dr. Mike Mai MD ~ Account Liaison: Signed [facility] 12-08-2024 Hospital Discharge instructions Additional Instructions 1. Discontinue the azithromycin 2. Start the doxycycline once you fill the prescription 3. Take prednisone until gone 4. 2 puffs of your inhaler every 2-4 hours while awake for the next 3 days. [facility] Work Phone: 11-06-2024 Discharge summary [facility] 11-06-2024 Radiology Diagnostic study note [facility] Imaging Services [address] [place] [id number] CTA Chest W/WO Contrast MR#: [id number] Acct: [id number] Name: OFE GIMENEZ Rep #: [id number] : 1975 F 49 From: Margarette Gross MD PCP: Dr. Yarelis Fitzpatrick DO Status: RE G ER Study:CTA Chest W/WO Contrast Date of Exam: 11/06/24 Exam# [id number] Ordering Dr: Chico Vanegas DO PROCEDURE: CTA [...] lobe, concerning for multifocal pneumonia. [facility] CC: Dr. Yordan Vanegas DO; Dr. Yarelis Fitzpatrick DO ~ Account Liaison: Signed [facility] 11-06-2024 Discharge summary Note Date/Time November 06, 2024 11:30pm [facility] Medical Records Department [address] [place] [address] Emergency Department Summary 11/06/24 MR#: [id number] Acct: [id number] Name: OFE GIMENEZ Rep #:[id number] : 1975 49 From: Yordan Phillips PCP: Dr. Yarelis Fitzpatrick DO Status:RE G ER Location: ED ADDENDUM by Dr. Yordan Vanegas DO on 11/06/24 at 2330 Update: After prescriptions were sent plan discussed with patient she is concerned that doxycycline upsets her stomach. Therefore I will change her to azithromycin. 11/06/24 233<Electronically signed by Yordan Vanegas DO> Cosigner Signature [...] follows locally with pulmonology Dr. 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 In September of this [...] home oxygen. She is a lifelong non-smoker. [facility] Medical History (Updated 11/06/24 @ 23:10 [...] I would like for her to use [employer] device to help bring a good specimen. [...] 77.6 H Lymph % (Auto) 14.8 L [place] % (Auto) 6.4 Eos % (Auto) 0.2 [...] Clarity Clear Urine pH 8.0 Ur Specific [place] 1.010 Urine Protein Negative Urine Glucose (UA) [...] lobe, concerning for multifocal pneumonia. Reading Location: [facility] EKG Initial EKG: Attestation: I personally reviewed [...] Culture, Sputum (Routine) Timeframe: 1 Day Facility: [facility] - Location: Laboratory Ordered By: Dr. Yordan Vanegas Primary Care Provider: Yarelis Fitzpatrick Referrals: Yarelis Fitzpatrick DO [Primary Care Provider] - Rajat Velázquez MD [Med Staff - Active Staff] - As soon as possible (for infectious disease) Print Language: Turkish Disposition Disposition: Home, Self Care What to do if you have Problems For any increased pain, shortness of breath, bleeding, nausea or vomiting, chestpain, or any unexpected problems, contact your Primary Care Provider. Call [facility] ([phone]) or report to the closest Emergency Room. Call 911 if necessary. 11/06/242316 <Electronically signed by Yordan Vanegas DO> Cosigner Signature (if applicable): CC: Dr. Yarelis Fitzpatrick DO ~ Signed [facility] Work Phone: 1(221) 847-340503-14-2025 Evaluation note* Diagnosis Onset Date Resolution Status Admit Date Bronchiectasis inactive October 10:52am Immunoglobulin deficiency inactive November 01, 2024 10:52am Mass of upper lobe of right lung shawn ctive November 01, 2024 10:52am [facility] Work Phone: 1(265) 441-945902-26-2025 Radiology Diagnostic study note [facility] Imaging Services [address] [place], [place] [address] Chest WITH Contrast MR#: [id number] Acct: [id number] Name: OFE GIMENEZ Rep #: [id number] : 1975 F 49 From: Juan Rossi MD PCP: Dr. Yarelis Fitzpatrick DO Status: RE G CLI Study:Chest WITH Contrast Date of Exam: 10/15/24 Exam# [id number] Ordering Dr: Sly Jacobson PROCEDURE: CHEST WITH CONTRAST REASON FOR EXAM: [...] use of iterative reconstruction technique). Reading Location: [id number] CC: FIGURE CLERK-Sly Jacobson; Dr. Yarelis Fitzpatrick, DO ~ Account Liaison: Signed [facility]01-10-2025 Telephone encounter Note* Telephone Encounter - Alis Mcclain RN - 08/30/2024 1:42 PM EST Patient calling with health information: patient requesting health information about how to be seen, reviewed general nursing knowledge information. Patient verbalized understanding of information provided Patient denies any new or worsening symptoms of which a provider is not aware:Yes [facility]01-10-2025 Miscellaneous Notes* Telephone Encounter - Alis Mcclain RN - 08/30/2024 1:42 PM EST Patient calling with health information: patient requesting health information about how to be seen, reviewed general nursing knowledge information. Patient verbalized understanding of information provided Patient denies any new or worsening symptoms of which a provider is not aware:Yes [facility] Evaluation note* Diagnosis Onset Date Resolution Status Admit Date Mass of upper lobe of right lung acute August 30 8:47am Bronchiectasis chronic August 302024 8:47am Immunoglobulin deficiency chronic August 30, 2024 8:47am [facility] Work Phone: [phone]) 330-366501-10-2025 Evaluation note* Diagnosis Onset Date Resolution Status Admit Date Bronchiectasis inactive August 302024 8:47am Immunoglobulin deficiency inactive August 30, 2024 8:47am Mass of upper lobe of right lung inactive August 30 8:47am Bronchiectasis inactive October 10:52am Immunoglobulin deficiency inactive November 01, 2024 10:52am Mass of upper lobe of right lung inactive November 01, 2024 10:52am [facility] Work Phone: 1(684) 382-183711-27-2023 Procedure [facility] 11-07-[address] Solis [facility] November 07, 2022 12:41am Note Date/Time November 06, 2022 11: 09pm [facility] Medical Records Department [address] [place] [id number] Emergency Department Summary 11/06/22 MR#: [id number] Acct: [id number] Name: OFE GIMENEZ Rep #:[id number] : 1975 47 From: Adelfo Solis DO [...] % (Auto) 66.8 Lymph % (Auto) 25.4 [place] % (Auto) 6.8 Eos % (Auto) 0.0 [...] Color Urine Clarity Urine pH Ur Specific [place] Urine Protein Urine Glucose (UA) Urine Ketones Urine Occult Blood Urine Nitrite Urine Bilirubin Urine Urobilinogen Ur Leukocyte Esterase Urine RBC Urine WBC Ur Squamous Epith Cells Amorphous Sediment Urine Bacteria Urine Mucus 11/06/22 22:27 WBC RBC Hgb Hct MCV MCH MCHC RDW Std Deviation RDW Coeff of Mendy Plt Count MPV Immature Gran % (Auto) Neut % (Auto) Lymph % (Auto) [place] % (Auto) Eos % (Auto) Baso % (Auto) Absolute Neuts (auto) Absolute Lymphs (auto) Nucleated RBC % Sodium Potassium Chloride Carbon Dioxide Anion Gap BUN Creatinine Estim Creat Clear Calc Est GFR (MDRD) Af Amer Est GFR (MDRD) Non-Af BUN/Creatinine Ratio Glucose Calcium Serum , Qual Urine Color Yellow Urine Clarity Sl. Cloudy Urine pH 6.5 Ur Specific [place] 1.020 Urine Protein 30 H Urine Glucose [...] your Primary Care Provider. Call [facility] ([phone]) or report to the closest Emergency Room. Call 911 if necessary. 11/07/22 0041 <Electronically signed by Adelfo Solis DO> Cosigner Signature (if applicable): CC: Dr. Yarelis Fitzpatrick DO ~ Signed [facility] Work Phone: [phone]) 267-777903-19-2023 History of Present illness Narrative* Abrahan Peterson APRN.SSIS ETL DEVELOPER - 11/06/2022 10:00 AM EDT Subjective HPI [...] TABLET Abrahan Peterson APRN.ANGEL [facility]22 NoteHNO ID: [id number] Author: Abrahan Peterson APRN.ANGEL Service: ? Author Type: Nurse [...] Agrees to plan Declines avs [facility]rahan [facility] History of Present illness Narrative* Abrahan [...] avs Abrahan Peterson APRN.ANGEL documented in this encounterProm[facility]01-08-2022 NoteHNO ID: [id number] Author: Melva Reyna APRN.CNP Service: ? Author [...] have confirmed and edited as necessary, the [facility] Review of Systems Constitutional: Positive for malaise/fatigue. [...] in 24-48 hours with results, available on Latinda - COVID WITH FLUA+B, ROUTINE 4. Acute [...] detail warranting prompt ER evaluation. Melva Reyna APRN.[facility]12-22-2021 NoteHNO ID: [id number] Author: RT Samuel(R) Service: ? Author Type: [...] BY: RT Samuel(R) August 11, 2021 6:58 [facility]12-22-2021 NoteHNO ID: [id number] Author: Len Marinelli APRN.SSIS ETL DEVELOPER Service: ? Author Type: Nurse Practitioner Type: [...] Patient agreeable to treatment plan. Len Marinelli APRN.[facility]12-22-2021 History of Present illness Narrative* Ruy Torres [...] 11, 2021 6:58 PM documented in this encounterProm[facility]09-24-2021 NoteHNO ID: [id number] Author: Margarito Alston PA-C Service: ? Author Type: Physician Clinical Aide Type: Progress Notes Filed: 05/15/2021 9:13 AM [...] have confirmed and edited as necessary, the [facility] Review of Systems Constitutional: Positive for fever [...] testing ordered; Results will be released to [facility] in 24-48 hours Discussed quarantine, social distancing, hand washing/proper hygiene. Rest, fluids, OTC medications discussed -Reviewed red flags (ie chest pain, shortness of breath) with patient and when to seek care sooner. 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 She was prescribed azithromycin. Her fifth [...] Prior similar symptoms: Yes [facility] Medical History Immunoglobulin deficiency Mass of [...] % (Auto) 69.1 Lymph % (Auto) 21.5 [place] % (Auto) 7.8 Eos % (Auto) 0.7 [...] infiltrate or consolidation is seen. Reading Location: [id number] Treatment and Re-Evaluation :: Patient was reexamined [...] have an appointment with her doctor at [facility] tomorrow, Dr. Vazquez she was instructed to discontinue the azithromycin. Discharge Plan Triage Chief Complaint: Chest Other ED Provider: Mike Mai Dx/Rx/DC Orders Clinical Impression: Pneumonia, Acute bronchospasm, Sinus tachycardia seen on cardiac cath technologist, Immune deficiency disorder, Elevated blood-pressure reading without [...] Yarelis Fitzpatrick DO [Primary Care Provider] - 1 Week if not improving Activity Restrictions/Additional Instructions: 1. Discontinue the azithromycin 2. Start the doxycycline once you fill the prescription 3. Take prednisone until gone 4. 2 puffs of your inhaler every 2-4 hours while awake for the next 3 days. Print Language: Turkish Disposition Disposition: Home, Self Care What to do if you have Problems For any increased pain, shortness of breath, bleeding, nausea or vomiting, chestpain, or any unexpected problems, contact your Primary Care Provider. Call [facility] ([phone]) or report to the closest Emergency Room. Call 911 if necessary. 12/08/24 0854 <Electronically signed by Mike Mai MD> Cosigner Signature (if applicable): CC: Dr. Yarelis Fitzpatrick DO ~ Signed [facility] Work Phone: Evaluation note* Diagnosis Lower resp. tract infection- Primary Other diseases of respiratory system, not elsewhere classified Conjunctivitis of both eyes, unspecified conjunctivitis type documented in this encounter [facility] noteNo assessment information availableWEast [facility] Work Phone: Evaluation note* Diagnosis Sinobronchitis- Primary Unspecified sinusitis (chronic) Bacterial conjunctivitis Other conjunctivitis History of asthma Personal history of other diseases of respiratory system documented in this encounter [facility]* Diagnosis Onset Date Resolution Status Bronchiectasis acute Immunoglobulin deficiency ac noel [facility] Work Phone: Evaluation note* Diagnosis Recurrent infections Unspecified infectious and parasitic diseases Low serum IgG for age [facility] Diagnosis Onset Date Resolution Status Bronchiectasis chronic Immunoglobulin deficiency [facility] Work Phone: Evaluation note* Diagnosis Cough documented in this encounter [facility]* Diagnosis Common variable immunodeficiency Low serum IgG for age Recurrent infections Unspecified infectious and parasitic diseases [facility]* Name Dates Details How to Access Health Informa tion Online using Patient Portal and E[employer] Apps Indication:Nonsmoker Start:22-Jan-2021 Instruction Type:Patient Education Patient Instructions Indication:Nonsmoker Start:22-Jan-2021 Instruction Type:Provider Instructions for Treatment Patient Instructions Indication:Nonsmoker Start:12-Oct-2020 Instruction Type:Provider Instructions for Treatment How to Access Health Informa tion Online using Patient Portal and [employer] Apps Indication:Nonsmoker Start:12-Oct-2020 Instruction Type:Patient Education Patient Instructions Indication:BMI 21.0-21.9, adult Start:14-Sep-2020 Instruction Type:Provider Instructions for Treatment How to Access Health Informa tion Online using Patient Portal and [employer] Apps Indication:BMI 21.0-21.9, adult Start:14-Sep-2020 Instruction Type:Patient [...] Internal Medicine; [facility] Work Phone: insNoteleafions* Name Dates Details How to Access Health Informa tion Online using Patient Portal and Visual Realm Indication:Nonsmoker Start:22-Jan-2021 Instruction Type:Patient Education Patient Instructions Indication:Nonsmoker Start:22-Jan-2021 Instruction Type:Provider Instructions for Treatment Patient Instructions Indication:Nonsmoker Start:12-Oct-2020 Instruction Type:Provider Instructions for Treatment How to Access Health Informa tion Online using Patient Portal and [employer] Apps Indication:Nonsmoker Start:12-Oct-2020 Instruction Type:Patient Education Patient Instructions Indication:BMI 21.0-21.9, adult Start:14-Sep-2020 Instruction Type:Provider Instructions for Treatment How to Access Health Informa tion Online using Patient Portal and [employer] Apps Indication:BMI 21.0-21.9, adult Start:14-Sep-2020 Instruction Type:Patient [...] tion Online using Patient Portal and 3rd Alliance Party Apps Indication:Nonsmoker Start:05-Jul-2021 Instruction Type:Patient Education Patient Instructions Indication:Nonsmoker Start:02-Jul-2021 Instruction Type:Provider Instructions for Treatment How to Access Health Informa tion Online using Patient Portal and 3rd Alliance Party Apps Indication:Nonsmoker Start:02-Jul-2021 Instruction Type:Patient Education Patient Instructions Indication:Nonsmoker Start:09-Feb-2021 Instruction Type:Provider Instructions for Treatment How to Access Health Informa tion Online using Patient Portal and 3rd Alliance Party Apps Indication:Nonsmoker Start:09-Feb-2021 Instruction Type:Patient Education How to Access Health Informa tion Online using Patient Portal and 3rd Alliance Party Apps Indication:Nonsmoker Start:22-Jan-2021 Instruction Type:Patient Education Patient Instructions Indication:Nonsmoker Start:22-Jan-2021 Instruction Type:Provider Instructions for Treatment Patient Instructions Indication:Nonsmoker Start:12-Oct-2020 Instruction Type:Provider Instructions for Treatment How to Access Health Informa tion Online using Patient Portal and 3rd [employer] Party Apps Indication:Nonsmoker Start:12-Oct-2020 Instruction Type:Patient Education Patient Instructions Indication:BMI 21.0-21.9, adult Start:14-Sep-2020 Instruction Type:Provider Instructions for Treatment How to Access Health Informa tion Online using Patient Portal and 3rd [employer] Party Apps Indication:BMI 21.0-21.9, adult Start:14-Sep-2020 Instruction [...] tion Online using Patient Portal and 3rd [employer] Party Apps Indication:Nonsmoker Start:15-Oct-2021 Instruction Type:Patient Education Patient Instructions Indication:Nonsmoker Start:05-Jul-2021 Instruction Type:Provider Instructions for Treatment How to Access Health Informa tion Online using Patient Portal and 3rd [employer] Party Apps Indication:Nonsmoker Start:05-Jul-2021 Instruction Type:Patient Education Patient Instructions Indication:Nonsmoker Start:02-Jul-2021 Instruction Type:Provider Instructions for Treatment How to Access Health Informa tion Online using Patient Portal and 3rd Alliance Party Apps Indication:Nonsmoker Start:02-Jul-2021 Instruction Type:Patient Education Patient Instructions Indication:Nonsmoker Start:09-Feb-2021 Instruction Type:Provider Instructions for Treatment How to Access Health Informa tion Online using Patient Portal and 3rd Alliance Party Apps Indication:Nonsmoker Start:09-Feb-2021 Instruction Type:Patient Education How to Access Health Informa tion Online using Patient Portal and 3rd Alliance Party Apps Indication:Nonsmoker Start:22-Jan-2021 Instruction Type:Patient Education Patient Instructions Indication:Nonsmoker Start:22-Jan-2021 Instruction Type:Provider Instructions for Treatment Patient Instructions Indication:Nonsmoker Start:12-Oct-2020 Instruction Type:Provider Instructions for Treatment How to Access Health Informa tion Online using Patient Portal and 3rd Alliance Party Apps Indication:Nonsmoker Start:12-Oct-2020 Instruction Type:Patient Education Patient Instructions Indication:BMI 21.0-21.9, adult Start:14-Sep-2020 Instruction Type:Provider Instructions for Treatment How to Access Health Informa tion Online using Patient Portal and 3rd Alliance Party Apps Indication:BMI 21.0-21.9, adult Start:14-Sep-2020 Instruction [...] tion Online using Patient Portal and 3rd Alliance Party Apps Indication:Nonsmoker Start:22-Feb-2022 Instruction Type:Patient Education Patient Instructions Indication:Nonsmoker Start:15-Oct-2021 Instruction Type:Provider Instructions for Treatment How to Access Health Informa tion Online using Patient Portal and 3rd Alliance Party Apps Indication:Nonsmoker Start:15-Oct-2021 Instruction Type:Patient Education Patient Instructions Indication:Nonsmoker Start:05-Jul-2021 Instruction Type:Provider Instructions for Treatment How to Access Health Informa tion Online using Patient Portal and 3rd [employer] Party Apps Indication:Nonsmoker Start:05-Jul-2021 Instruction Type:Patient Education Patient Instructions Indication:Nonsmoker Start:02-Jul-2021 Instruction Type:Provider Instructions for Treatment How to Access Health Informa tion Online using Patient Portal and 3rd [employer] Party Apps Indication:Nonsmoker Start:02-Jul-2021 Instruction Type:Patient Education Patient Instructions Indication:Nonsmoker Start:09-Feb-2021 Instruction Type:Provider Instructions for Treatment How to Access Health Informa tion Online using Patient Portal and 3rd [employer] Party Apps Indication:Nonsmoker Start:09-Feb-2021 Instruction Type:Patient Education How to Access Health Informa tion Online using Patient Portal and 3rd Alliance Party Apps Indication:Nonsmoker Start:22-Jan-2021 Instruction Type:Patient Education Patient Instructions Indication:Nonsmoker Start:22-Jan-2021 Instruction Type:Provider Instructions for Treatment Patient Instructions Indication:Nonsmoker Start:12-Oct-2020 Instruction Type:Provider Instructions for Treatment How to Access Health Informa tion Online using Patient Portal and 3rd Alliance Party Apps Indication:Nonsmoker Start:12-Oct-2020 Instruction Type:Patient Education Patient Instructions Indication:BMI 21.0-21.9, adult Start:14-Sep-2020 Instruction Type:Provider Instructions for Treatment How to Access Health Informa tion Online using Patient Portal and 3rd [employer] Party Apps Indication:BMI 21.0-21.9, adult Start:14-Sep-2020 Instruction [...] tion Online using Patient Portal and 3rd [employer] Party Apps Indication:Nonsmoker Start:22-Feb-2022 Instruction Type:Patient Education Patient Instructions Indication:Nonsmoker Start:15-Oct-2021 Instruction Type:Provider Instructions for Treatment How to Access Health Informa tion Online using Patient Portal and 3rd [employer] Party Apps Indication:Nonsmoker Start:15-Oct-2021 Instruction Type:Patient Education Patient Instructions Indication:Nonsmoker Start:05-Jul-2021 Instruction Type:Provider Instructions for Treatment How to Access Health Informa tion Online using Patient Portal and 3rd [employer] Party Apps Indication:Nonsmoker Start:05-Jul-2021 Instruction Type:Patient Education Patient Instructions Indication:Nonsmoker Start:02-Jul-2021 Instruction Type:Provider Instructions for Treatment How to Access Health Informa tion Online using Patient Portal and 3rd [employer] Party Apps Indication:Nonsmoker Start:02-Jul-2021 Instruction Type:Patient Education Patient Instructions Indication:Nonsmoker Start:09-Feb-2021 Instruction Type:Provider Instructions for Treatment How to Access Health Informa tion Online using Patient Portal and 3rd [employer] Party Apps Indication:Nonsmoker Start:09-Feb-2021 Instruction Type:Patient Education How to Access Health Informa tion Online using Patient Portal and 3rd [employer] Party Apps Indication:Nonsmoker Start:22-Jan-2021 Instruction Type:Patient Education Patient Instructions Indication:Nonsmoker Start:22-Jan-2021 Instruction Type:Provider Instructions for Treatment Patient Instructions Indication:Nonsmoker Start:12-Oct-2020 Instruction Type:Provider Instructions for Treatment How to Access Health Informa tion Online using Patient Portal and 3rd [employer] Party Apps Indication:Nonsmoker Start:12-Oct-2020 Instruction Type:Patient Education Patient Instructions Indication:BMI 21.0-21.9, adult Start:14-Sep-2020 Instruction Type:Provider Instructions for Treatment How to Access Health Informa tion Online using Patient Portal and 3rd Alliance Party Apps Indication:BMI 21.0-21.9, adult Start:14-Sep-2020 Instruction [...] tion Online using Patient Portal and 3rd [employer] Party Apps Indication:BMI 23.0-23.9, adult Start:10-Jun-2022 Instruction Type:Patient Education Patient Instructions Indication:Nonsmoker Start:26-Apr-2022 Instruction Type:Provider Instructions for Treatment How to Access Health Informa tion Online using Patient Portal and 3rd [employer] Party Apps Indication:Nonsmoker Start:26-Apr-2022 Instruction Type:Patient Education Patient Instructions Indication:Nonsmoker Start:22-Feb-2022 Instruction Type:Provider Instructions for Treatment How to Access Health Informa tion Online using Patient Portal and 3rd Alliance Party Apps Indication:Nonsmoker Start:22-Feb-2022 Instruction Type:Patient Education Patient Instructions Indication:Nonsmoker Start:15-Oct-2021 Instruction Type:Provider Instructions for Treatment How to Access Health Informa tion Online using Patient Portal and 3rd [employer] Party Apps Indication:Nonsmoker Start:15-Oct-2021 Instruction Type:Patient Education Patient Instructions Indication:Nonsmoker Start:05-Jul-2021 Instruction Type:Provider Instructions for Treatment How to Access Health Informa tion Online using Patient Portal and 3rd [employer] Party Apps Indication:Nonsmoker Start:05-Jul-2021 Instruction Type:Patient Education Patient Instructions Indication:Nonsmoker Start:02-Jul-2021 Instruction Type:Provider Instructions for Treatment How to Access Health Informa tion Online using Patient Portal and 3rd Alliance Party Apps Indication:Nonsmoker Start:02-Jul-2021 Instruction Type:Patient Education Patient Instructions Indication:Nonsmoker Start:09-Feb-2021 Instruction Type:Provider Instructions for Treatment How to Access Health Informa tion Online using Patient Portal and 3rd Alliance Party Apps Indication:Nonsmoker Start:09-Feb-2021 Instruction Type:Patient Education How to Access Health Informa tion Online using Patient Portal and 3rd [employer] Party Apps Indication:Nonsmoker Start:22-Jan-2021 Instruction Type:Patient Education Patient Instructions Indication:Nonsmoker Start:22-Jan-2021 Instruction Type:Provider Instructions for Treatment Patient Instructions Indication:Nonsmoker Start:12-Oct-2020 Instruction Type:Provider Instructions for Treatment How to Access Health Informa tion Online using Patient Portal and 3rd Alliance Party Apps Indication:Nonsmoker Start:12-Oct-2020 Instruction Type:Patient Education Patient Instructions Indication:BMI 21.0-21.9, adult Start:14-Sep-2020 Instruction Type:Provider Instructions for Treatment How to Access Health Informa tion Online using Patient Portal and 3rd [employer] Party Apps Indication:BMI 21.0-21.9, adult Start:14-Sep-2020 Instruction [...] tion Online using Patient Portal and 3rd [employer] Party Apps Indication:BMI 23.0-23.9, adult Start:10-Jun-2022 Instruction Type:Patient Education Patient Instructions Indication:Nonsmoker Start:26-Apr-2022 Instruction Type:Provider Instructions for Treatment How to Access Health Informa tion Online using Patient Portal and 3rd [employer] Party Apps Indication:Nonsmoker Start:26-Apr-2022 Instruction Type:Patient Education Patient Instructions Indication:Nonsmoker Start:22-Feb-2022 Instruction Type:Provider Instructions for Treatment How to Access Health Informa tion Online using Patient Portal and 3rd Alliance Party Apps Indication:Nonsmoker Start:22-Feb-2022 Instruction Type:Patient Education Patient Instructions Indication:Nonsmoker Start:15-Oct-2021 Instruction Type:Provider Instructions for Treatment How to Access Health Informa tion Online using Patient Portal and 3rd [employer] Party Apps Indication:Nonsmoker Start:15-Oct-2021 Instruction Type:Patient Education Patient Instructions Indication:Nonsmoker Start:05-Jul-2021 Instruction Type:Provider Instructions for Treatment How to Access Health Informa tion Online using Patient Portal and 3rd Alliance Party Apps Indication:Nonsmoker Start:05-Jul-2021 Instruction Type:Patient Education Patient Instructions Indication:Nonsmoker Start:02-Jul-2021 Instruction Type:Provider Instructions for Treatment How to Access Health Informa tion Online using Patient Portal and 3rd Alliance Party Apps Indication:Nonsmoker Start:02-Jul-2021 Instruction Type:Patient Education Patient Instructions Indication:Nonsmoker Start:09-Feb-2021 Instruction Type:Provider Instructions for Treatment How to Access Health Informa tion Online using Patient Portal and 3rd [employer] Party Apps Indication:Nonsmoker Start:09-Feb-2021 Instruction Type:Patient Education How to Access Health Informa tion Online using Patient Portal and 3rd [employer] Party Apps Indication:Nonsmoker Start:22-Jan-2021 Instruction Type:Patient Education Patient Instructions Indication:Nonsmoker Start:22-Jan-2021 Instruction Type:Provider Instructions for Treatment Patient Instructions Indication:Nonsmoker Start:12-Oct-2020 Instruction Type:Provider Instructions for Treatment How to Access Health Informa tion Online using Patient Portal and 3rd [employer] Party Apps Indication:Nonsmoker Start:12-Oct-2020 Instruction Type:Patient Education Patient Instructions Indication:BMI 21.0-21.9, adult Start:14-Sep-2020 Instruction Type:Provider Instructions for Treatment How to Access Health Informa tion Online using Patient Portal and 3rd [employer] Party Apps Indication:BMI 21.0-21.9, adult Start:14-Sep-2020 Instruction [...] tion Online using Patient Portal and 3rd [employer] Party Apps Indication:BMI 23.0-23.9, adult Start:10-Jun-2022 Instruction Type:Patient Education Patient Instructions Indication:Nonsmoker Start:26-Apr-2022 Instruction Type:Provider Instructions for Treatment How to Access Health Informa tion Online using Patient Portal and 3rd [employer] Party Apps Indication:Nonsmoker Start:26-Apr-2022 Instruction Type:Patient Education Patient Instructions Indication:Nonsmoker Start:22-Feb-2022 Instruction Type:Provider Instructions for Treatment How to Access Health Informa tion Online using Patient Portal and 3rd [employer] Party Apps Indication:Nonsmoker Start:22-Feb-2022 Instruction Type:Patient Education Patient Instructions Indication:Nonsmoker Start:15-Oct-2021 Instruction Type:Provider Instructions for Treatment How to Access Health Informa tion Online using Patient Portal and 3rd [employer] Party Apps Indication:Nonsmoker Start:15-Oct-2021 Instruction Type:Patient Education Patient Instructions Indication:Nonsmoker Start:05-Jul-2021 Instruction Type:Provider Instructions for Treatment How to Access Health Informa tion Online using Patient Portal and 3rd [employer] Party Apps Indication:Nonsmoker Start:05-Jul-2021 Instruction Type:Patient Education Patient Instructions Indication:Nonsmoker Start:02-Jul-2021 Instruction Type:Provider Instructions for Treatment How to Access Health Informa tion Online using Patient Portal and [employer] Apps Indication:Nonsmoker Start:02-Jul-2021 Instruction Type:Patient Education Patient Instructions Indication:Nonsmoker Start:09-Feb-2021 Instruction Type:Provider Instructions for Treatment How to Access Health Informa tion Online using Patient Portal and [employer]rd [employer] Apps Indication:Nonsmoker Start:09-Feb-2021 Instruction Type:Patient Education How to Access Health Informa tion Online using Patient Portal and [employer]rd [employer] Apps Indication:Nonsmoker Start:22-Jan-2021 Instruction Type:Patient Education Patient Instructions Indication:Nonsmoker Start:22-Jan-2021 Instruction Type:Provider Instructions for Treatment Patient Instructions Indication:Nonsmoker Start:12-Oct-2020 Instruction Type:Provider Instructions for Treatment How to Access Health Informa tion Online using Patient Portal and [employer] Apps Indication:Nonsmoker Start:12-Oct-2020 Instruction Type:Patient Education Patient Instructions Indication:BMI 21.0-21.9, adult Start:14-Sep-2020 Instruction Type:Provider Instructions for Treatment How to Access Health Informa tion Online using Patient Portal and [employer] Apps Indication:BMI 21.0-21.9, adult Start:14-Sep-2020 Instruction [...] tion Online using Patient Portal and [employer] Apps Indication:BMI 23.0-23.9, adult Start:10-Jun-2022 Instruction Type:Patient Education Patient Instructions Indication:Nonsmoker Start:26-Apr-2022 Instruction Type:Provider Instructions for Treatment How to Access Health Informa tion Online using Patient Portal and [employer] Apps Indication:Nonsmoker Start:26-Apr-2022 Instruction Type:Patient Education Patient Instructions Indication:Nonsmoker Start:22-Feb-2022 Instruction Type:Provider Instructions for Treatment How to Access Health Informa tion Online using Patient Portal and [employer]rd [employer] Apps Indication:Nonsmoker Start:22-Feb-2022 Instruction Type:Patient Education Patient Instructions Indication:Nonsmoker Start:15-Oct-2021 Instruction Type:Provider Instructions for Treatment How to Access Health Informa tion Online using Patient Portal and [employer] Apps Indication:Nonsmoker Start:15-Oct-2021 Instruction Type:Patient Education Patient Instructions Indication:Nonsmoker Start:05-Jul-2021 Instruction Type:Provider Instructions for Treatment How to Access Health Informa tion Online using Patient Portal and [employer] Apps Indication:Nonsmoker Start:05-Jul-2021 Instruction Type:Patient Education Patient Instructions Indication:Nonsmoker Start:02-Jul-2021 Instruction Type:Provider Instructions for Treatment How to Access Health Informa tion Online using Patient Portal and [employer] Apps Indication:Nonsmoker Start:02-Jul-2021 Instruction Type:Patient Education Patient Instructions Indication:Nonsmoker Start:09-Feb-2021 Instruction Type:Provider Instructions for Treatment How to Access Health Informa tion Online using Patient Portal and [employer] Apps Indication:Nonsmoker Start:09-Feb-2021 Instruction Type:Patient Education How to Access Health Informa tion Online using Patient Portal and [employer] Apps Indication:Nonsmoker Start:22-Jan-2021 Instruction Type:Patient Education Patient Instructions Indication:Nonsmoker Start:22-Jan-2021 Instruction Type:Provider Instructions for Treatment Patient Instructions Indication:Nonsmoker Start:12-Oct-2020 Instruction Type:Provider Instructions for Treatment How to Access Health Informa tion Online using Patient Portal and [employer] Apps Indication:Nonsmoker Start:12-Oct-2020 Instruction Type:Patient Education Patient Instructions Indication:BMI 21.0-21.9, adult Start:14-Sep-2020 Instruction Type:Provider Instructions for Treatment How to Access Health Informa tion Online using Patient Portal and [employer] Apps Indication:BMI 21.0-21.9, adult Start:14-Sep-2020 Instruction [...] tion Online using Patient Portal and [employer] Apps Indication:BMI 23.0-23.9, adult Start:10-Jun-2022 Instruction Type:Patient Education Patient Instructions Indication:Nonsmoker Start:26-Apr-2022 Instruction Type:Provider Instructions for Treatment How to Access Health Informa tion Online using Patient Portal and [employer] Apps Indication:Nonsmoker Start:26-Apr-2022 Instruction Type:Patient Education Patient Instructions Indication:Nonsmoker Start:22-Feb-2022 Instruction Type:Provider Instructions for Treatment How to Access Health Informa tion Online using Patient Portal and [employer] Apps Indication:Nonsmoker Start:22-Feb-2022 Instruction Type:Patient Education Patient Instructions Indication:Nonsmoker Start:15-Oct-2021 Instruction Type:Provider Instructions for Treatment How to Access Health Informa tion Online using Patient Portal and [employer] Apps Indication:Nonsmoker Start:15-Oct-2021 Instruction Type:Patient Education Patient Instructions Indication:Nonsmoker Start:05-Jul-2021 Instruction Type:Provider Instructions for Treatment How to Access Health Informa tion Online using Patient Portal and [employer] Apps Indication:Nonsmoker Start:05-Jul-2021 Instruction Type:Patient Education Patient Instructions Indication:Nonsmoker Start:02-Jul-2021 Instruction Type:Provider Instructions for Treatment How to Access Health Informa tion Online using Patient Portal and [employer] Apps Indication:Nonsmoker Start:02-Jul-2021 Instruction Type:Patient Education Patient Instructions Indication:Nonsmoker Start:09-Feb-2021 Instruction Type:Provider Instructions for Treatment How to Access Health Informa tion Online using Patient Portal and [employer] Apps Indication:Nonsmoker Start:09-Feb-2021 Instruction Type:Patient Education How to Access Health Informa tion Online using Patient Portal and [employer] Apps Indication:Nonsmoker Start:22-Jan-2021 Instruction Type:Patient Education Patient Instructions Indication:Nonsmoker Start:22-Jan-2021 Instruction Type:Provider Instructions for Treatment Patient Instructions Indication:Nonsmoker Start:12-Oct-2020 Instruction Type:Provider Instructions for Treatment How to Access Health Informa tion Online using Patient Portal and [employer] Apps Indication:Nonsmoker Start:12-Oct-2020 Instruction Type:Patient Education Patient Instructions Indication:BMI 21.0-21.9, adult Start:14-Sep-2020 Instruction Type:Provider Instructions for Treatment How to Access Health Informa tion Online using Patient Portal and [employer] Apps Indication:BMI 21.0-21.9, adult Start:14-Sep-2020 Instruction [...] tion Online using Patient Portal and [employer] Apps Indication:Nonsmoker Start:12-Sep-2022 Instruction Type:Patient Education Patient Instructions Indication:BMI 23.0-23.9, adult Start:10-Jun-2022 Instruction Type:Provider Instructions for Treatment How to Access Health Informa tion Online using Patient Portal and [employer] Apps Indication:BMI 23.0-23.9, adult Start:10-Jun-2022 Instruction Type:Patient Education Patient Instructions Indication:Nonsmoker Start:26-Apr-2022 Instruction Type:Provider Instructions for Treatment How to Access Health Informa tion Online using Patient Portal and [employer] Apps Indication:Nonsmoker Start:26-Apr-2022 Instruction Type:Patient Education Patient Instructions Indication:Nonsmoker Start:22-Feb-2022 Instruction Type:Provider Instructions for Treatment How to Access Health Informa tion Online using Patient Portal and [employer] Apps Indication:Nonsmoker Start:22-Feb-2022 Instruction Type:Patient Education Patient Instructions Indication:Nonsmoker Start:15-Oct-2021 Instruction Type:Provider Instructions for Treatment How to Access Health Informa tion Online using Patient Portal and [employer] Apps Indication:Nonsmoker Start:15-Oct-2021 Instruction Type:Patient Education Patient Instructions Indication:Nonsmoker Start:05-Jul-2021 Instruction Type:Provider Instructions for Treatment How to Access Health Informa tion Online using Patient Portal and [employer] Apps Indication:Nonsmoker Start:05-Jul-2021 Instruction Type:Patient Education Patient Instructions Indication:Nonsmoker Start:02-Jul-2021 Instruction Type:Provider Instructions for Treatment How to Access Health Informa tion Online using Patient Portal and [employer] Apps Indication:Nonsmoker Start:02-Jul-2021 Instruction Type:Patient Education Patient Instructions Indication:Nonsmoker Start:09-Feb-2021 Instruction Type:Provider Instructions for Treatment How to Access Health Informa tion Online using Patient Portal and [employer] Apps Indication:Nonsmoker Start:09-Feb-2021 Instruction Type:Patient Education How to Access Health Informa tion Online using Patient Portal and [employer] Apps Indication:Nonsmoker Start:22-Jan-2021 Instruction Type:Patient Education Patient Instructions Indication:Nonsmoker Start:22-Jan-2021 Instruction Type:Provider Instructions for Treatment Patient Instructions Indication:Nonsmoker Start:12-Oct-2020 Instruction Type:Provider Instructions for Treatment How to Access Health Informa tion Online using Patient Portal and [employer] Apps Indication:Nonsmoker Start:12-Oct-2020 Instruction Type:Patient Education Patient Instructions Indication:BMI 21.0-21.9, adult Start:14-Sep-2020 Instruction Type:Provider Instructions for Treatment How to Access Health Informa tion Online using Patient Portal and [employer] Apps Indication:BMI 21.0-21.9, adult Start:14-Sep-2020 Instruction [...] tion Online using Patient Portal and [employer] Apps Indication:Nonsmoker Start:12-Sep-2022 Instruction Type:Patient Education Patient Instructions Indication:BMI 23.0-23.9, adult Start:10-Jun-2022 Instruction Type:Provider Instructions for Treatment How to Access Health Informa tion Online using Patient Portal and [employer] Apps Indication:BMI 23.0-23.9, adult Start:10-Jun-2022 Instruction Type:Patient Education Patient Instructions Indication:Nonsmoker Start:26-Apr-2022 Instruction Type:Provider Instructions for Treatment How to Access Health Informa tion Online using Patient Portal and [employer] Apps Indication:Nonsmoker Start:26-Apr-2022 Instruction Type:Patient Education Patient Instructions Indication:Nonsmoker Start:22-Feb-2022 Instruction Type:Provider Instructions for Treatment How to Access Health Informa tion Online using Patient Portal and [employer] Apps Indication:Nonsmoker Start:22-Feb-2022 Instruction Type:Patient Education Patient Instructions Indication:Nonsmoker Start:15-Oct-2021 Instruction Type:Provider Instructions for Treatment How to Access Health Informa tion Online using Patient Portal and [employer] Apps Indication:Nonsmoker Start:15-Oct-2021 Instruction Type:Patient Education Patient Instructions Indication:Nonsmoker Start:05-Jul-2021 Instruction Type:Provider Instructions for Treatment How to Access Health Informa tion Online using Patient Portal and [employer] Apps Indication:Nonsmoker Start:05-Jul-2021 Instruction Type:Patient Education Patient Instructions Indication:Nonsmoker Start:02-Jul-2021 Instruction Type:Provider Instructions for Treatment How to Access Health Informa tion Online using Patient Portal and [employer] Apps Indication:Nonsmoker Start:02-Jul-2021 Instruction Type:Patient Education Patient Instructions Indication:Nonsmoker Start:09-Feb-2021 Instruction Type:Provider Instructions for Treatment How to Access Health Informa tion Online using Patient Portal and [employer] Apps Indication:Nonsmoker Start:09-Feb-2021 Instruction Type:Patient Education How to Access Health Informa tion Online using Patient Portal and [employer] Apps Indication:Nonsmoker Start:22-Jan-2021 Instruction Type:Patient Education Patient Instructions Indication:Nonsmoker Start:22-Jan-2021 Instruction Type:Provider Instructions for Treatment Patient Instructions Indication:Nonsmoker Start:12-Oct-2020 Instruction Type:Provider Instructions for Treatment How to Access Health Informa tion Online using Patient Portal and [employer] Apps Indication:Nonsmoker Start:12-Oct-2020 Instruction Type:Patient Education Patient Instructions Indication:BMI 21.0-21.9, adult Start:14-Sep-2020 Instruction Type:Provider Instructions for Treatment How to Access Health Informa tion Online using Patient Portal and [employer] Apps Indication:BMI 21.0-21.9, adult Start:14-Sep-2020 Instruction [...] tion Online using Patient Portal and [employer] Apps Indication:Nonsmoker Start:12-Sep-2022 Instruction Type:Patient Education Patient Instructions Indication:BMI 23.0-23.9, adult Start:10-Jun-2022 Instruction Type:Provider Instructions for Treatment How to Access Health Informa tion Online using Patient Portal and [employer] Apps Indication:BMI 23.0-23.9, adult Start:10-Jun-2022 Instruction Type:Patient Education Patient Instructions Indication:Nonsmoker Start:26-Apr-2022 Instruction Type:Provider Instructions for Treatment How to Access Health Informa tion Online using Patient Portal and [employer] Apps Indication:Nonsmoker Start:26-Apr-2022 Instruction Type:Patient Education Patient Instructions Indication:Nonsmoker Start:22-Feb-2022 Instruction Type:Provider Instructions for Treatment How to Access Health Informa tion Online using Patient Portal and [employer] Apps Indication:Nonsmoker Start:22-Feb-2022 Instruction Type:Patient Education Patient Instructions Indication:Nonsmoker Start:15-Oct-2021 Instruction Type:Provider Instructions for Treatment How to Access Health Informa tion Online using Patient Portal and [employer] Apps Indication:Nonsmoker Start:15-Oct-2021 Instruction Type:Patient Education Patient Instructions Indication:Nonsmoker Start:05-Jul-2021 Instruction Type:Provider Instructions for Treatment How to Access Health Informa tion Online using Patient Portal and [employer] Apps Indication:Nonsmoker Start:05-Jul-2021 Instruction Type:Patient Education Patient Instructions Indication:Nonsmoker Start:02-Jul-2021 Instruction Type:Provider Instructions for Treatment How to Access Health Informa tion Online using Patient Portal and [employer] Apps Indication:Nonsmoker Start:02-Jul-2021 Instruction Type:Patient Education Patient Instructions Indication:Nonsmoker Start:09-Feb-2021 Instruction Type:Provider Instructions for Treatment How to Access Health Informa tion Online using Patient Portal and [employer] Apps Indication:Nonsmoker Start:09-Feb-2021 Instruction Type:Patient Education How to Access Health Informa tion Online using Patient Portal and [employer] Apps Indication:Nonsmoker Start:22-Jan-2021 Instruction Type:Patient Education Patient Instructions Indication:Nonsmoker Start:22-Jan-2021 Instruction Type:Provider Instructions for Treatment Patient Instructions Indication:Nonsmoker Start:12-Oct-2020 Instruction Type:Provider Instructions for Treatment How to Access Health Informa tion Online using Patient Portal and [employer] Apps Indication:Nonsmoker Start:12-Oct-2020 Instruction Type:Patient Education Patient Instructions Indication:BMI 21.0-21.9, adult Start:14-Sep-2020 Instruction Type:Provider Instructions for Treatment How to Access Health Informa tion Online using Patient Portal and [employer] Apps Indication:BMI 21.0-21.9, adult Start:14-Sep-2020 Instruction [...] Informa tion Online using Patient Portal and [employer] Apps Indication:BMI 23.0-23.9, adult Start:07-Oct-2022 Instruction Type:Patient Education Patient Instructions Indication:Nonsmoker Start:12-Sep-2022 Instruction Type:Provider Instructions for Treatment How to Access Health Informa tion Online using Patient Portal and [employer] Apps Indication:Nonsmoker Start:12-Sep-2022 Instruction Type:Patient Education Patient Instructions Indication:BMI 23.0-23.9, adult Start:10-Jun-2022 Instruction Type:Provider Instructions for Treatment How to Access Health Informa tion Online using Patient Portal and [employer] Apps Indication:BMI 23.0-23.9, adult Start:10-Jun-2022 Instruction Type:Patient Education Patient Instructions Indication:Nonsmoker Start:26-Apr-2022 Instruction Type:Provider Instructions for Treatment How to Access Health Informa tion Online using Patient Portal and [employer] Apps Indication:Nonsmoker Start:26-Apr-2022 Instruction Type:Patient Education Patient Instructions Indication:Nonsmoker Start:22-Feb-2022 Instruction Type:Provider Instructions for Treatment How to Access Health Informa tion Online using Patient Portal and [employer] Apps Indication:Nonsmoker Start:22-Feb-2022 Instruction Type:Patient Education Patient Instructions Indication:Nonsmoker Start:15-Oct-2021 Instruction Type:Provider Instructions for Treatment How to Access Health Informa tion Online using Patient Portal and [employer] Apps Indication:Nonsmoker Start:15-Oct-2021 Instruction Type:Patient Education Patient Instructions Indication:Nonsmoker Start:05-Jul-2021 Instruction Type:Provider Instructions for Treatment How to Access Health Informa tion Online using Patient Portal and [employer] Apps Indication:Nonsmoker Start:05-Jul-2021 Instruction Type:Patient Education Patient Instructions Indication:Nonsmoker Start:02-Jul-2021 Instruction Type:Provider Instructions for Treatment How to Access Health Informa tion Online using Patient Portal and [employer] Apps Indication:Nonsmoker Start:02-Jul-2021 Instruction Type:Patient Education Patient Instructions Indication:Nonsmoker Start:09-Feb-2021 Instruction Type:Provider Instructions for Treatment How to Access Health Informa tion Online using Patient Portal and [employer] Apps Indication:Nonsmoker Start:09-Feb-2021 Instruction Type:Patient Education How to Access Health Informa tion Online using Patient Portal and [employer] Apps Indication:Nonsmoker Start:22-Jan-2021 Instruction Type:Patient Education Patient Instructions Indication:Nonsmoker Start:22-Jan-2021 Instruction Type:Provider Instructions for Treatment Patient Instructions Indication:Nonsmoker Start:12-Oct-2020 Instruction Type:Provider Instructions for Treatment How to Access Health Informa tion Online using Patient Portal and [employer] Apps Indication:Nonsmoker Start:12-Oct-2020 Instruction Type:Patient Education Patient Instructions Indication:BMI 21.0-21.9, adult Start:14-Sep-2020 Instruction Type:Provider Instructions for Treatment How to Access Health Informa tion Online using Patient Portal and [employer] Apps Indication:BMI 21.0-21.9, adult Start:14-Sep-2020 Instruction [...] tion Online using Patient Portal and [employer] Apps Indication:BMI 23.0-23.9, adult Start:07-Oct-2022 Instruction Type:Patient Education Patient Instructions Indication:Nonsmoker Start:12-Sep-2022 Instruction Type:Provider Instructions for Treatment How to Access Health Informa tion Online using Patient Portal and [employer] Apps Indication:Nonsmoker Start:12-Sep-2022 Instruction Type:Patient Education Patient Instructions Indication:BMI 23.0-23.9, adult Start:10-Jun-2022 Instruction Type:Provider Instructions for Treatment How to Access Health Informa tion Online using Patient Portal and [employer] Apps Indication:BMI 23.0-23.9, adult Start:10-Jun-2022 Instruction Type:Patient Education Patient Instructions Indication:Nonsmoker Start:26-Apr-2022 Instruction Type:Provider Instructions for Treatment How to Access Health Informa tion Online using Patient Portal and [employer] Apps Indication:Nonsmoker Start:26-Apr-2022 Instruction Type:Patient Education Patient Instructions Indication:Nonsmoker Start:22-Feb-2022 Instruction Type:Provider Instructions for Treatment How to Access Health Informa tion Online using Patient Portal and [employer] Apps Indication:Nonsmoker Start:22-Feb-2022 Instruction Type:Patient Education Patient Instructions Indication:Nonsmoker Start:15-Oct-2021 Instruction Type:Provider Instructions for Treatment How to Access Health Informa tion Online using Patient Portal and [employer] Apps Indication:Nonsmoker Start:15-Oct-2021 Instruction Type:Patient Education Patient Instructions Indication:Nonsmoker Start:05-Jul-2021 Instruction Type:Provider Instructions for Treatment How to Access Health Informa tion Online using Patient Portal and [employer] Apps Indication:Nonsmoker Start:05-Jul-2021 Instruction Type:Patient Education Patient Instructions Indication:Nonsmoker Start:02-Jul-2021 Instruction Type:Provider Instructions for Treatment How to Access Health Informa tion Online using Patient Portal and [employer] Apps Indication:Nonsmoker Start:02-Jul-2021 Instruction Type:Patient Education Patient Instructions Indication:Nonsmoker Start:09-Feb-2021 Instruction Type:Provider Instructions for Treatment How to Access Health Informa tion Online using Patient Portal and [employer] Apps Indication:Nonsmoker Start:09-Feb-2021 Instruction Type:Patient Education How to Access Health Informa tion Online using Patient Portal and [employer] Apps Indication:Nonsmoker Start:22-Jan-2021 Instruction Type:Patient Education Patient Instructions Indication:Nonsmoker Start:22-Jan-2021 Instruction Type:Provider Instructions for Treatment Patient Instructions Indication:Nonsmoker Start:12-Oct-2020 Instruction Type:Provider Instructions for Treatment How to Access Health Informa tion Online using Patient Portal and [employer] Apps Indication:Nonsmoker Start:12-Oct-2020 Instruction Type:Patient Education Patient Instructions Indication:BMI 21.0-21.9, adult Start:14-Sep-2020 Instruction Type:Provider Instructions for Treatment How to Access Health Informa tion Online using Patient Portal and [employer] Apps Indication:BMI 21.0-21.9, adult Start:14-Sep-2020 Instruction [...] tion Online using Patient Portal and [employer] Apps Indication:Abnormal lung sounds Start:14-Oct-2022 Instruction Type:Patient Education Patient Instructions Indication:BMI 23.0-23.9, adult Start:07-Oct-2022 Instruction Type:Provider Instructions for Treatment How to Access Health Informa tion Online using Patient Portal and [employer] Apps Indication:BMI 23.0-23.9, adult Start:07-Oct-2022 Instruction Type:Patient Education Patient Instructions Indication:Nonsmoker Start:12-Sep-2022 Instruction Type:Provider Instructions for Treatment How to Access Health Informa tion Online using Patient Portal and [employer] Apps Indication:Nonsmoker Start:12-Sep-2022 Instruction Type:Patient Education Patient Instructions Indication:BMI 23.0-23.9, adult Start:10-Jun-2022 Instruction Type:Provider Instructions for Treatment How to Access Health Informa tion Online using Patient Portal and [employer] Apps Indication:BMI 23.0-23.9, adult Start:10-Jun-2022 Instruction Type:Patient Education Patient Instructions Indication:Nonsmoker Start:26-Apr-2022 Instruction Type:Provider Instructions for Treatment How to Access Health Informa tion Online using Patient Portal and [employer] Apps Indication:Nonsmoker Start:26-Apr-2022 Instruction Type:Patient Education Patient Instructions Indication:Nonsmoker Start:22-Feb-2022 Instruction Type:Provider Instructions for Treatment How to Access Health Informa tion Online using Patient Portal and [employer] Apps Indication:Nonsmoker Start:22-Feb-2022 Instruction Type:Patient Education Patient Instructions Indication:Nonsmoker Start:15-Oct-2021 Instruction Type:Provider Instructions for Treatment How to Access Health Informa tion Online using Patient Portal and [employer] Apps Indication:Nonsmoker Start:15-Oct-2021 Instruction Type:Patient Education Patient Instructions Indication:Nonsmoker Start:05-Jul-2021 Instruction Type:Provider Instructions for Treatment How to Access Health Informa tion Online using Patient Portal and [employer] Apps Indication:Nonsmoker Start:05-Jul-2021 Instruction Type:Patient Education Patient Instructions Indication:Nonsmoker Start:02-Jul-2021 Instruction Type:Provider Instructions for Treatment How to Access Health Informa tion Online using Patient Portal and [employer]rd [employer] Apps Indication:Nonsmoker Start:02-Jul-2021 Instruction Type:Patient Education Patient Instructions Indication:Nonsmoker Start:09-Feb-2021 Instruction Type:Provider Instructions for Treatment How to Access Health Informa tion Online using Patient Portal and [employer]rd [employer] Apps Indication:Nonsmoker Start:09-Feb-2021 Instruction Type:Patient Education How to Access Health Informa tion Online using Patient Portal and [employer]rd [employer] Apps Indication:Nonsmoker Start:22-Jan-2021 Instruction Type:Patient Education Patient Instructions Indication:Nonsmoker Start:22-Jan-2021 Instruction Type:Provider Instructions for Treatment Patient Instructions Indication:Nonsmoker Start:12-Oct-2020 Instruction Type:Provider Instructions for Treatment How to Access Health Informa tion Online using Patient Portal and [employer]rd [employer] Apps Indication:Nonsmoker Start:12-Oct-2020 Instruction Type:Patient Education Patient Instructions Indication:BMI 21.0-21.9, adult Start:14-Sep-2020 Instruction Type:Provider Instructions for Treatment How to Access Health Informa tion Online using Patient Portal and [employer]rd [employer] Apps Indication:BMI 21.0-21.9, adult Start:14-Sep-2020 Instruction [...] Informa tion Online using Patient Portal and [employer] Apps Indication:Abnormal lung sounds Start:14-Oct-2022 Instruction Type:Patient Education Patient Instructions Indication:BMI 23.0-23.9, adult Start:07-Oct-2022 Instruction Type:Provider Instructions for Treatment How to Access Health Informa tion Online using Patient Portal and [employer] Apps Indication:BMI 23.0-23.9, adult Start:07-Oct-2022 Instruction Type:Patient Education Patient Instructions Indication:Nonsmoker Start:12-Sep-2022 Instruction Type:Provider Instructions for Treatment How to Access Health Informa tion Online using Patient Portal and [employer] Apps Indication:Nonsmoker Start:12-Sep-2022 Instruction Type:Patient Education Patient Instructions Indication:BMI 23.0-23.9, adult Start:10-Jun-2022 Instruction Type:Provider Instructions for Treatment How to Access Health Informa tion Online using Patient Portal and [employer] Apps Indication:BMI 23.0-23.9, adult Start:10-Jun-2022 Instruction Type:Patient Education Patient Instructions Indication:Nonsmoker Start:26-Apr-2022 Instruction Type:Provider Instructions for Treatment How to Access Health Informa tion Online using Patient Portal and [employer]rd [employer] Apps Indication:Nonsmoker Start:26-Apr-2022 Instruction Type:Patient Education Patient Instructions Indication:Nonsmoker Start:22-Feb-2022 Instruction Type:Provider Instructions for Treatment How to Access Health Informa tion Online using Patient Portal and [employer]rd [employer] Apps Indication:Nonsmoker Start:22-Feb-2022 Instruction Type:Patient Education Patient Instructions Indication:Nonsmoker Start:15-Oct-2021 Instruction Type:Provider Instructions for Treatment How to Access Health Informa tion Online using Patient Portal and [employer]rd [employer] Apps Indication:Nonsmoker Start:15-Oct-2021 Instruction Type:Patient Education Patient Instructions Indication:Nonsmoker Start:05-Jul-2021 Instruction Type:Provider Instructions for Treatment How to Access Health Informa tion Online using Patient Portal and [employer] Apps Indication:Nonsmoker Start:05-Jul-2021 Instruction Type:Patient Education Patient Instructions Indication:Nonsmoker Start:02-Jul-2021 Instruction Type:Provider Instructions for Treatment How to Access Health Informa tion Online using Patient Portal and [employer] Apps Indication:Nonsmoker Start:02-Jul-2021 Instruction Type:Patient Education Patient Instructions Indication:Nonsmoker Start:09-Feb-2021 Instruction Type:Provider Instructions for Treatment How to Access Health Informa tion Online using Patient Portal and [employer] Apps Indication:Nonsmoker Start:09-Feb-2021 Instruction Type:Patient Education How to Access Health Informa tion Online using Patient Portal and [employer] Apps Indication:Nonsmoker Start:22-Jan-2021 Instruction Type:Patient Education Patient Instructions Indication:Nonsmoker Start:22-Jan-2021 Instruction Type:Provider Instructions for Treatment Patient Instructions Indication:Nonsmoker Start:12-Oct-2020 Instruction Type:Provider Instructions for Treatment How to Access Health Informa tion Online using Patient Portal and [employer] Apps Indication:Nonsmoker Start:12-Oct-2020 Instruction Type:Patient Education Patient Instructions Indication:BMI 21.0-21.9, adult Start:14-Sep-2020 Instruction Type:Provider Instructions for Treatment How to Access Health Informa tion Online using Patient Portal and [employer] Apps Indication:BMI 21.0-21.9, adult Start:14-Sep-2020 Instruction [...] tion Online using Patient Portal and [employer] Apps Indication:Abnormal lung sounds Start:14-Oct-2022 Instruction Type:Patient Education Patient Instructions Indication:BMI 23.0-23.9, adult Start:07-Oct-2022 Instruction Type:Provider Instructions for Treatment How to Access Health Informa tion Online using Patient Portal and [employer] Apps Indication:BMI 23.0-23.9, adult Start:07-Oct-2022 Instruction Type:Patient Education Patient Instructions Indication:Nonsmoker Start:12-Sep-2022 Instruction Type:Provider Instructions for Treatment How to Access Health Informa tion Online using Patient Portal and [employer] Apps Indication:Nonsmoker Start:12-Sep-2022 Instruction Type:Patient Education Patient Instructions Indication:BMI 23.0-23.9, adult Start:10-Jun-2022 Instruction Type:Provider Instructions for Treatment How to Access Health Informa tion Online using Patient Portal and [employer] Apps Indication:BMI 23.0-23.9, adult Start:10-Jun-2022 Instruction Type:Patient Education Patient Instructions Indication:Nonsmoker Start:26-Apr-2022 Instruction Type:Provider Instructions for Treatment How to Access Health Informa tion Online using Patient Portal and [employer] Apps Indication:Nonsmoker Start:26-Apr-2022 Instruction Type:Patient Education Patient Instructions Indication:Nonsmoker Start:22-Feb-2022 Instruction Type:Provider Instructions for Treatment How to Access Health Informa tion Online using Patient Portal and [employer] Apps Indication:Nonsmoker Start:22-Feb-2022 Instruction Type:Patient Education Patient Instructions Indication:Nonsmoker Start:15-Oct-2021 Instruction Type:Provider Instructions for Treatment How to Access Health Informa tion Online using Patient Portal and [employer] Apps Indication:Nonsmoker Start:15-Oct-2021 Instruction Type:Patient Education Patient Instructions Indication:Nonsmoker Start:05-Jul-2021 Instruction Type:Provider Instructions for Treatment How to Access Health Informa tion Online using Patient Portal and [employer] Apps Indication:Nonsmoker Start:05-Jul-2021 Instruction Type:Patient Education Patient Instructions Indication:Nonsmoker Start:02-Jul-2021 Instruction Type:Provider Instructions for Treatment How to Access Health Informa tion Online using Patient Portal and [employer] Apps Indication:Nonsmoker Start:02-Jul-2021 Instruction Type:Patient Education Patient Instructions Indication:Nonsmoker Start:09-Feb-2021 Instruction Type:Provider Instructions for Treatment How to Access Health Informa tion Online using Patient Portal and [employer] Apps Indication:Nonsmoker Start:09-Feb-2021 Instruction Type:Patient Education How to Access Health Informa tion Online using Patient Portal and [employer] Apps Indication:Nonsmoker Start:22-Jan-2021 Instruction Type:Patient Education Patient Instructions Indication:Nonsmoker Start:22-Jan-2021 Instruction Type:Provider Instructions for Treatment Patient Instructions Indication:Nonsmoker Start:12-Oct-2020 Instruction Type:Provider Instructions for Treatment How to Access Health Informa tion Online using Patient Portal and [employer] Apps Indication:Nonsmoker Start:12-Oct-2020 Instruction Type:Patient Education Patient Instructions Indication:BMI 21.0-21.9, adult Start:14-Sep-2020 Instruction Type:Provider Instructions for Treatment How to Access Health Informa tion Online using Patient Portal and [employer] Apps Indication:BMI 21.0-21.9, adult Start:14-Sep-2020 Instruction [...] Informa tion Online using Patient Portal and [employer] Apps Indication:Nonsmoker Start:16-Dec-2022 Instruction Type:Patient Education Patient Instructions Indication:Abnormal lung sounds Start:14-Oct-2022 Instruction Type:Provider Instructions for Treatment How to Access Health Informa tion Online using Patient Portal and [employer] Apps Indication:Abnormal lung sounds Start:14-Oct-2022 Instruction Type:Patient Education Patient Instructions Indication:BMI 23.0-23.9, adult Start:07-Oct-2022 Instruction Type:Provider Instructions for Treatment How to Access Health Informa tion Online using Patient Portal and [employer] Apps Indication:BMI 23.0-23.9, adult Start:07-Oct-2022 Instruction Type:Patient Education Patient Instructions Indication:Nonsmoker Start:12-Sep-2022 Instruction Type:Provider Instructions for Treatment How to Access Health Informa tion Online using Patient Portal and [employer] Apps Indication:Nonsmoker Start:12-Sep-2022 Instruction Type:Patient Education Patient Instructions Indication:BMI 23.0-23.9, adult Start:10-Jun-2022 Instruction Type:Provider Instructions for Treatment How to Access Health Informa tion Online using Patient Portal and [employer] Apps Indication:BMI 23.0-23.9, adult Start:10-Jun-2022 Instruction Type:Patient Education Patient Instructions Indication:Nonsmoker Start:26-Apr-2022 Instruction Type:Provider Instructions for Treatment How to Access Health Informa tion Online using Patient Portal and [employer] Apps Indication:Nonsmoker Start:26-Apr-2022 Instruction Type:Patient Education Patient Instructions Indication:Nonsmoker Start:22-Feb-2022 Instruction Type:Provider Instructions for Treatment How to Access Health Informa tion Online using Patient Portal and [employer] Apps Indication:Nonsmoker Start:22-Feb-2022 Instruction Type:Patient Education Patient Instructions Indication:Nonsmoker Start:15-Oct-2021 Instruction Type:Provider Instructions for Treatment How to Access Health Informa tion Online using Patient Portal and [employer] Apps Indication:Nonsmoker Start:15-Oct-2021 Instruction Type:Patient Education Patient Instructions Indication:Nonsmoker Start:05-Jul-2021 Instruction Type:Provider Instructions for Treatment How to Access Health Informa tion Online using Patient Portal and [employer] Apps Indication:Nonsmoker Start:05-Jul-2021 Instruction Type:Patient Education Patient Instructions Indication:Nonsmoker Start:02-Jul-2021 Instruction Type:Provider Instructions for Treatment How to Access Health Informa tion Online using Patient Portal and [employer] Apps Indication:Nonsmoker Start:02-Jul-2021 Instruction Type:Patient Education Patient Instructions Indication:Nonsmoker Start:09-Feb-2021 Instruction Type:Provider Instructions for Treatment How to Access Health Informa tion Online using Patient Portal and [employer] Apps Indication:Nonsmoker Start:09-Feb-2021 Instruction Type:Patient Education How to Access Health Informa tion Online using Patient Portal and [employer] Apps Indication:Nonsmoker Start:22-Jan-2021 Instruction Type:Patient Education Patient Instructions Indication:Nonsmoker Start:22-Jan-2021 Instruction Type:Provider Instructions for Treatment Patient Instructions Indication:Nonsmoker Start:12-Oct-2020 Instruction Type:Provider Instructions for Treatment How to Access Health Informa tion Online using Patient Portal and [employer] Apps Indication:Nonsmoker Start:12-Oct-2020 Instruction Type:Patient Education Patient Instructions Indication:BMI 21.0-21.9, adult Start:14-Sep-2020 Instruction Type:Provider Instructions for Treatment How to Access Health Informa tion Online using Patient Portal and [employer] Apps Indication:BMI 21.0-21.9, adult Start:14-Sep-2020 Instruction [...] tion Online using Patient Portal and [employer] Apps Indication:Nonsmoker Start:16-Dec-2022 Instruction Type:Patient Education Patient Instructions Indication:Abnormal lung sounds Start:14-Oct-2022 Instruction Type:Provider Instructions for Treatment How to Access Health Informa tion Online using Patient Portal and [employer] Apps Indication:Abnormal lung sounds Start:14-Oct-2022 Instruction Type:Patient Education Patient Instructions Indication:BMI 23.0-23.9, adult Start:07-Oct-2022 Instruction Type:Provider Instructions for Treatment How to Access Health Informa tion Online using Patient Portal and [employer] Apps Indication:BMI 23.0-23.9, adult Start:07-Oct-2022 Instruction Type:Patient Education Patient Instructions Indication:Nonsmoker Start:12-Sep-2022 Instruction Type:Provider Instructions for Treatment How to Access Health Informa tion Online using Patient Portal and [employer] Apps Indication:Nonsmoker Start:12-Sep-2022 Instruction Type:Patient Education Patient Instructions Indication:BMI 23.0-23.9, adult Start:10-Jun-2022 Instruction Type:Provider Instructions for Treatment How to Access Health Informa tion Online using Patient Portal and [employer] Apps Indication:BMI 23.0-23.9, adult Start:10-Jun-2022 Instruction Type:Patient Education Patient Instructions Indication:Nonsmoker Start:26-Apr-2022 Instruction Type:Provider Instructions for Treatment How to Access Health Informa tion Online using Patient Portal and [employer] Apps Indication:Nonsmoker Start:26-Apr-2022 Instruction Type:Patient Education Patient Instructions Indication:Nonsmoker Start:22-Feb-2022 Instruction Type:Provider Instructions for Treatment How to Access Health Informa tion Online using Patient Portal and [employer] Apps Indication:Nonsmoker Start:22-Feb-2022 Instruction Type:Patient Education Patient Instructions Indication:Nonsmoker Start:15-Oct-2021 Instruction Type:Provider Instructions for Treatment How to Access Health Informa tion Online using Patient Portal and [employer] Apps Indication:Nonsmoker Start:15-Oct-2021 Instruction Type:Patient Education Patient Instructions Indication:Nonsmoker Start:05-Jul-2021 Instruction Type:Provider Instructions for Treatment How to Access Health Informa tion Online using Patient Portal and [employer] Apps Indication:Nonsmoker Start:05-Jul-2021 Instruction Type:Patient Education Patient Instructions Indication:Nonsmoker Start:02-Jul-2021 Instruction Type:Provider Instructions for Treatment How to Access Health Informa tion Online using Patient Portal and [employer] Apps Indication:Nonsmoker Start:02-Jul-2021 Instruction Type:Patient Education Patient Instructions Indication:Nonsmoker Start:09-Feb-2021 Instruction Type:Provider Instructions for Treatment How to Access Health Informa tion Online using Patient Portal and [employer] Apps Indication:Nonsmoker Start:09-Feb-2021 Instruction Type:Patient Education How to Access Health Informa tion Online using Patient Portal and [employer] Apps Indication:Nonsmoker Start:22-Jan-2021 Instruction Type:Patient Education Patient Instructions Indication:Nonsmoker Start:22-Jan-2021 Instruction Type:Provider Instructions for Treatment Patient Instructions Indication:Nonsmoker Start:12-Oct-2020 Instruction Type:Provider Instructions for Treatment How to Access Health Informa tion Online using Patient Portal and [employer] Apps Indication:Nonsmoker Start:12-Oct-2020 Instruction Type:Patient Education Patient Instructions Indication:BMI 21.0-21.9, adult Start:14-Sep-2020 Instruction Type:Provider Instructions for Treatment How to Access Health Informa tion Online using Patient Portal and [employer] Apps Indication:BMI 21.0-21.9, adult Start:14-Sep-2020 Instruction [...] tion Online using Patient Portal and [employer] Apps Indication:Nonsmoker Start:16-Dec-2022 Instruction Type:Patient Education Patient Instructions Indication:Abnormal lung sounds Start:14-Oct-2022 Instruction Type:Provider Instructions for Treatment How to Access Health Informa tion Online using Patient Portal and [employer] Apps Indication:Abnormal lung sounds Start:14-Oct-2022 Instruction Type:Patient Education Patient Instructions Indication:BMI 23.0-23.9, adult Start:07-Oct-2022 Instruction Type:Provider Instructions for Treatment How to Access Health Informa tion Online using Patient Portal and [employer] Apps Indication:BMI 23.0-23.9, adult Start:07-Oct-2022 Instruction Type:Patient Education Patient Instructions Indication:Nonsmoker Start:12-Sep-2022 Instruction Type:Provider Instructions for Treatment How to Access Health Informa tion Online using Patient Portal and [employer] Apps Indication:Nonsmoker Start:12-Sep-2022 Instruction Type:Patient Education Patient Instructions Indication:BMI 23.0-23.9, adult Start:10-Jun-2022 Instruction Type:Provider Instructions for Treatment How to Access Health Informa tion Online using Patient Portal and [employer] Apps Indication:BMI 23.0-23.9, adult Start:10-Jun-2022 Instruction Type:Patient Education Patient Instructions Indication:Nonsmoker Start:26-Apr-2022 Instruction Type:Provider Instructions for Treatment How to Access Health Informa tion Online using Patient Portal and [employer] Apps Indication:Nonsmoker Start:26-Apr-2022 Instruction Type:Patient Education Patient Instructions Indication:Nonsmoker Start:22-Feb-2022 Instruction Type:Provider Instructions for Treatment How to Access Health Informa tion Online using Patient Portal and [employer] Apps Indication:Nonsmoker Start:22-Feb-2022 Instruction Type:Patient Education Patient Instructions Indication:Nonsmoker Start:15-Oct-2021 Instruction Type:Provider Instructions for Treatment How to Access Health Informa tion Online using Patient Portal and [employer] Apps Indication:Nonsmoker Start:15-Oct-2021 Instruction Type:Patient Education Patient Instructions Indication:Nonsmoker Start:05-Jul-2021 Instruction Type:Provider Instructions for Treatment How to Access Health Informa tion Online using Patient Portal and [employer] Apps Indication:Nonsmoker Start:05-Jul-2021 Instruction Type:Patient Education Patient Instructions Indication:Nonsmoker Start:02-Jul-2021 Instruction Type:Provider Instructions for Treatment How to Access Health Informa tion Online using Patient Portal and [employer] Apps Indication:Nonsmoker Start:02-Jul-2021 Instruction Type:Patient Education Patient Instructions Indication:Nonsmoker Start:09-Feb-2021 Instruction Type:Provider Instructions for Treatment How to Access Health Informa tion Online using Patient Portal and [employer] Apps Indication:Nonsmoker Start:09-Feb-2021 Instruction Type:Patient Education How to Access Health Informa tion Online using Patient Portal and [employer] Apps Indication:Nonsmoker Start:22-Jan-2021 Instruction Type:Patient Education Patient Instructions Indication:Nonsmoker Start:22-Jan-2021 Instruction Type:Provider Instructions for Treatment Patient Instructions Indication:Nonsmoker Start:12-Oct-2020 Instruction Type:Provider Instructions for Treatment How to Access Health Informa tion Online using Patient Portal and [employer] Apps Indication:Nonsmoker Start:12-Oct-2020 Instruction Type:Patient Education Patient Instructions Indication:BMI 21.0-21.9, adult Start:14-Sep-2020 Instruction Type:Provider Instructions for Treatment How to Access Health Informa tion Online using Patient Portal and [employer] Apps Indication:BMI 21.0-21.9, adult Start:14-Sep-2020 Instruction [...] tion Online using Patient Portal and [employer] Apps Indication:Recurrent infections Start:30-Dec-2022 Instruction Type:Patient Education Patient Instructions Indication:Nonsmoker Start:16-Dec-2022 Instruction Type:Provider Instructions for Treatment How to Access Health Informa tion Online using Patient Portal and [employer] Apps Indication:Nonsmoker Start:16-Dec-2022 Instruction Type:Patient Education Patient Instructions Indication:Abnormal lung sounds Start:14-Oct-2022 Instruction Type:Provider Instructions for Treatment How to Access Health Informa tion Online using Patient Portal and [employer] Apps Indication:Abnormal lung sounds Start:14-Oct-2022 Instruction Type:Patient Education Patient Instructions Indication:BMI 23.0-23.9, adult Start:07-Oct-2022 Instruction Type:Provider Instructions for Treatment How to Access Health Informa tion Online using Patient Portal and [employer] Apps Indication:BMI 23.0-23.9, adult Start:07-Oct-2022 Instruction Type:Patient Education Patient Instructions Indication:Nonsmoker Start:12-Sep-2022 Instruction Type:Provider Instructions for Treatment How to Access Health Informa tion Online using Patient Portal and [employer] Apps Indication:Nonsmoker Start:12-Sep-2022 Instruction Type:Patient Education Patient Instructions Indication:BMI 23.0-23.9, adult Start:10-Jun-2022 Instruction Type:Provider Instructions for Treatment How to Access Health Informa tion Online using Patient Portal and [employer] Apps Indication:BMI 23.0-23.9, adult Start:10-Jun-2022 Instruction Type:Patient Education Patient Instructions Indication:Nonsmoker Start:26-Apr-2022 Instruction Type:Provider Instructions for Treatment How to Access Health Informa tion Online using Patient Portal and [employer] Apps Indication:Nonsmoker Start:26-Apr-2022 Instruction Type:Patient Education Patient Instructions Indication:Nonsmoker Start:22-Feb-2022 Instruction Type:Provider Instructions for Treatment How to Access Health Informa tion Online using Patient Portal and [employer] Apps Indication:Nonsmoker Start:22-Feb-2022 Instruction Type:Patient Education Patient Instructions Indication:Nonsmoker Start:15-Oct-2021 Instruction Type:Provider Instructions for Treatment How to Access Health Informa tion Online using Patient Portal and [employer] Apps Indication:Nonsmoker Start:15-Oct-2021 Instruction Type:Patient Education Patient Instructions Indication:Nonsmoker Start:05-Jul-2021 Instruction Type:Provider Instructions for Treatment How to Access Health Informa tion Online using Patient Portal and [employer] Apps Indication:Nonsmoker Start:05-Jul-2021 Instruction Type:Patient Education Patient Instructions Indication:Nonsmoker Start:02-Jul-2021 Instruction Type:Provider Instructions for Treatment How to Access Health Informa tion Online using Patient Portal and [employer] Apps Indication:Nonsmoker Start:02-Jul-2021 Instruction Type:Patient Education Patient Instructions Indication:Nonsmoker Start:09-Feb-2021 Instruction Type:Provider Instructions for Treatment How to Access Health Informa tion Online using Patient Portal and [employer] Apps Indication:Nonsmoker Start:09-Feb-2021 Instruction Type:Patient Education How to Access Health Informa tion Online using Patient Portal and [employer] Apps Indication:Nonsmoker Start:22-Jan-2021 Instruction Type:Patient Education Patient Instructions Indication:Nonsmoker Start:22-Jan-2021 Instruction Type:Provider Instructions for Treatment Patient Instructions Indication:Nonsmoker Start:12-Oct-2020 Instruction Type:Provider Instructions for Treatment How to Access Health Informa tion Online using Patient Portal and [employer] Apps Indication:Nonsmoker Start:12-Oct-2020 Instruction Type:Patient Education Patient Instructions Indication:BMI 21.0-21.9, adult Start:14-Sep-2020 Instruction Type:Provider Instructions for Treatment How to Access Health Informa tion Online using Patient Portal and [employer] Apps Indication:BMI 21.0-21.9, adult Start:14-Sep-2020 Instruction [...] Informa tion Online using Patient Portal and [employer] Apps Indication:BMI 23.0-23.9, adult Start:05-Jan-2023 Instruction Type:Patient Education Patient Instructions Indication:Recurrent infections Start:30-Dec-2022 Instruction Type:Provider Instructions for Treatment How to Access Health Informa tion Online using Patient Portal and [employer] Apps Indication:Recurrent infections Start:30-Dec-2022 Instruction Type:Patient Education Patient Instructions Indication:Nonsmoker Start:16-Dec-2022 Instruction Type:Provider Instructions for Treatment How to Access Health Informa tion Online using Patient Portal and [employer] Apps Indication:Nonsmoker Start:16-Dec-2022 Instruction Type:Patient Education Patient Instructions Indication:Abnormal lung sounds Start:14-Oct-2022 Instruction Type:Provider Instructions for Treatment How to Access Health Informa tion Online using Patient Portal and [employer] Apps Indication:Abnormal lung sounds Start:14-Oct-2022 Instruction Type:Patient Education Patient Instructions Indication:BMI 23.0-23.9, adult Start:07-Oct-2022 Instruction Type:Provider Instructions for Treatment How to Access Health Informa tion Online using Patient Portal and [employer] Apps Indication:BMI 23.0-23.9, adult Start:07-Oct-2022 Instruction Type:Patient Education Patient Instructions Indication:Nonsmoker Start:12-Sep-2022 Instruction Type:Provider Instructions for Treatment How to Access Health Informa tion Online using Patient Portal and [employer] Apps Indication:Nonsmoker Start:12-Sep-2022 Instruction Type:Patient Education Patient Instructions Indication:BMI 23.0-23.9, adult Start:10-Jun-2022 Instruction Type:Provider Instructions for Treatment How to Access Health Informa tion Online using Patient Portal and [employer] Apps Indication:BMI 23.0-23.9, adult Start:10-Jun-2022 Instruction Type:Patient Education Patient Instructions Indication:Nonsmoker Start:26-Apr-2022 Instruction Type:Provider Instructions for Treatment How to Access Health Informa tion Online using Patient Portal and [employer] Apps Indication:Nonsmoker Start:26-Apr-2022 Instruction Type:Patient Education Patient Instructions Indication:Nonsmoker Start:22-Feb-2022 Instruction Type:Provider Instructions for Treatment How to Access Health Informa tion Online using Patient Portal and [employer] Apps Indication:Nonsmoker Start:22-Feb-2022 Instruction Type:Patient Education Patient Instructions Indication:Nonsmoker Start:15-Oct-2021 Instruction Type:Provider Instructions for Treatment How to Access Health Informa tion Online using Patient Portal and [employer] Apps Indication:Nonsmoker Start:15-Oct-2021 Instruction Type:Patient Education Patient Instructions Indication:Nonsmoker Start:05-Jul-2021 Instruction Type:Provider Instructions for Treatment How to Access Health Informa tion Online using Patient Portal and [employer] Apps Indication:Nonsmoker Start:05-Jul-2021 Instruction Type:Patient Education Patient Instructions Indication:Nonsmoker Start:02-Jul-2021 Instruction Type:Provider Instructions for Treatment How to Access Health Informa tion Online using Patient Portal and [employer] Apps Indication:Nonsmoker Start:02-Jul-2021 Instruction Type:Patient Education Patient Instructions Indication:Nonsmoker Start:09-Feb-2021 Instruction Type:Provider Instructions for Treatment How to Access Health Informa tion Online using Patient Portal and [employer] Apps Indication:Nonsmoker Start:09-Feb-2021 Instruction Type:Patient Education How to Access Health Informa tion Online using Patient Portal and [employer] Apps Indication:Nonsmoker Start:22-Jan-2021 Instruction Type:Patient Education Patient Instructions Indication:Nonsmoker Start:22-Jan-2021 Instruction Type:Provider Instructions for Treatment Patient Instructions Indication:Nonsmoker Start:12-Oct-2020 Instruction Type:Provider Instructions for Treatment How to Access Health Informa tion Online using Patient Portal and [employer] Apps Indication:Nonsmoker Start:12-Oct-2020 Instruction Type:Patient Education Patient Instructions Indication:BMI 21.0-21.9, adult Start:14-Sep-2020 Instruction Type:Provider Instructions for Treatment How to Access Health Informa tion Online using Patient Portal and [employer] Apps Indication:BMI 21.0-21.9, adult Start:14-Sep-2020 Instruction [...] tion Online using Patient Portal and [employer] Apps Indication:BMI 23.0-23.9, adult Start:05-Jan-2023 Instruction Type:Patient Education Patient Instructions Indication:Recurrent infections Start:30-Dec-2022 Instruction Type:Provider Instructions for Treatment How to Access Health Informa tion Online using Patient Portal and [employer] Apps Indication:Recurrent infections Start:30-Dec-2022 Instruction Type:Patient Education Patient Instructions Indication:Nonsmoker Start:16-Dec-2022 Instruction Type:Provider Instructions for Treatment How to Access Health Informa tion Online using Patient Portal and [employer] Apps Indication:Nonsmoker Start:16-Dec-2022 Instruction Type:Patient Education Patient Instructions Indication:Abnormal lung sounds Start:14-Oct-2022 Instruction Type:Provider Instructions for Treatment How to Access Health Informa tion Online using Patient Portal and [employer] Apps Indication:Abnormal lung sounds Start:14-Oct-2022 Instruction Type:Patient Education Patient Instructions Indication:BMI 23.0-23.9, adult Start:07-Oct-2022 Instruction Type:Provider Instructions for Treatment How to Access Health Informa tion Online using Patient Portal and [employer] Apps Indication:BMI 23.0-23.9, adult Start:07-Oct-2022 Instruction Type:Patient Education Patient Instructions Indication:Nonsmoker Start:12-Sep-2022 Instruction Type:Provider Instructions for Treatment How to Access Health Informa tion Online using Patient Portal and [employer] Apps Indication:Nonsmoker Start:12-Sep-2022 Instruction Type:Patient Education Patient Instructions Indication:BMI 23.0-23.9, adult Start:10-Jun-2022 Instruction Type:Provider Instructions for Treatment How to Access Health Informa tion Online using Patient Portal and [employer] Apps Indication:BMI 23.0-23.9, adult Start:10-Jun-2022 Instruction Type:Patient Education Patient Instructions Indication:Nonsmoker Start:26-Apr-2022 Instruction Type:Provider Instructions for Treatment How to Access Health Informa tion Online using Patient Portal and [employer] Apps Indication:Nonsmoker Start:26-Apr-2022 Instruction Type:Patient Education Patient Instructions Indication:Nonsmoker Start:22-Feb-2022 Instruction Type:Provider Instructions for Treatment How to Access Health Informa tion Online using Patient Portal and [employer] Apps Indication:Nonsmoker Start:22-Feb-2022 Instruction Type:Patient Education Patient Instructions Indication:Nonsmoker Start:15-Oct-2021 Instruction Type:Provider Instructions for Treatment How to Access Health Informa tion Online using Patient Portal and [employer] Apps Indication:Nonsmoker Start:15-Oct-2021 Instruction Type:Patient Education Patient Instructions Indication:Nonsmoker Start:05-Jul-2021 Instruction Type:Provider Instructions for Treatment How to Access Health Informa tion Online using Patient Portal and [employer] Apps Indication:Nonsmoker Start:05-Jul-2021 Instruction Type:Patient Education Patient Instructions Indication:Nonsmoker Start:02-Jul-2021 Instruction Type:Provider Instructions for Treatment How to Access Health Informa tion Online using Patient Portal and [employer] Apps Indication:Nonsmoker Start:02-Jul-2021 Instruction Type:Patient Education Patient Instructions Indication:Nonsmoker Start:09-Feb-2021 Instruction Type:Provider Instructions for Treatment How to Access Health Informa tion Online using Patient Portal and [employer] Apps Indication:Nonsmoker Start:09-Feb-2021 Instruction Type:Patient Education How to Access Health Informa tion Online using Patient Portal and [employer] Apps Indication:Nonsmoker Start:22-Jan-2021 Instruction Type:Patient Education Patient Instructions Indication:Nonsmoker Start:22-Jan-2021 Instruction Type:Provider Instructions for Treatment Patient Instructions Indication:Nonsmoker Start:12-Oct-2020 Instruction Type:Provider Instructions for Treatment How to Access Health Informa tion Online using Patient Portal and [employer] Apps Indication:Nonsmoker Start:12-Oct-2020 Instruction Type:Patient Education Patient Instructions Indication:BMI 21.0-21.9, adult Start:14-Sep-2020 Instruction Type:Provider Instructions for Treatment How to Access Health Informa tion Online using Patient Portal and [employer] Apps Indication:BMI 21.0-21.9, adult Start:14-Sep-2020 Instruction [...] for referral (narrative)No reason [facility]: Family History No [...] tion Online using Patient Portal and [employer]rd [employer] Apps Indication:Nonsmoker Start:12-Oct-2020 Instruction Type:Patient Education Patient Instructions Indication:BMI 21.0-21.9, adult Start:14-Sep-2020 Instruction Type:Provider Instructions for Treatment How to Access Health Informa tion Online using Patient Portal and [employer] Apps Indication:BMI 21.0-21.9, adult Start:14-Sep-2020 Instruction [...] Informa tion Online using Patient Portal and [employer] Apps Indication:Nonsmoker Start:12-Oct-2020 Instruction Type:Patient Education Patient Instructions Indication:BMI 21.0-21.9, adult Start:14-Sep-2020 Instruction Type:Provider Instructions for Treatment How to Access Health Informa tion Online using Patient Portal and [employer] Apps Indication:BMI 21.0-21.9, adult Start:14-Sep-2020 Instruction Type:Patient [...] Will No September 12 11:11am Power of Ambulatory Analyst No September 12, 2020 11:11am Advance Directive Response Recorded Date/ Time Living Will No November 06, 2022 10:32pm Power of Ambulatory Analyst No November 06 10:32pm Advance Directive Response Recorded Date/ Time Living Will No March 13, 2023 10:04pm Power of Ambulatory Analyst No March 13 10:04pm Advance Directive Response Recorded Date/ Time Living Will No November 06, 2024 9:38pm Do you have a Healthcare Power of Ambulatory Analyst? No November 06, 2024 9:38pm Advance Directive Response Recorded Date/ Time Living Will No November 06, 2024 9:38pm Do you have a Healthcare Power of Ambulatory Analyst? No November 06, 2024 9:38pm Living Will No December 08, 2024 6:50am Do you have a Healthcare Power of Ambulatory Analyst? No December 08, 2024 6:50am Advance Directive Response Recorded Date/ Time Living Will No December 08, 2024 6:50am Do you have a Healthcare Power of Ambulatory Analyst? No December 08, 2024 6:50am Chief [...] 7pm E ORDER/COPY RESULTS TO PCP November 25, 025 6:42am Chief Complaint Admit Date XRAY [...] 7pm E ORDER/COPY RESULTS TO PCP November 25, 2 025 6:42am chest pain December 08, 2024 [...] m LUNG March 04, 2025 7:13 am Chief Complaint Admit Date LUNG March 04, 2025 7:13 am Additional Source Comments INFORMATION SOURCE (unrecogn ized section and content) DATE CREATED AUTHOR 01/23/2022 [facility] DATE CREATED AUTHOR AUTHOR'S ORGANIZ ATION 01/01/2023 [facility] DATE CREATED AUTHOR AUTHOR'S ORGANIZ ATION 05/12/2025 [facility] DATE CREATED AUTHOR AUTHOR'S ORGANIZ ATION 06/20/2025 [facility] Source Comments (unrecognize d section and content) In the event this informatio n is protected by the Federal Confidentiality of Alcohol and Drug Abuse Patient Records regulations: The Federal rules restrict any use of the information to criminally investigate or prosecute any alcohol or drug abuse patient.[facility] the event this information is protected by the Federal Confidentiality of Alcohol and Drug Abuse Patient Records regulations: The Federal rules restrict any use of the information to criminally investigate or prosecute any alcohol or drug abuse patient.[facility] the event this information is protected by the Federal Confidentiality of Alcohol and Drug Abuse Patient Records regulations: The Federal rules restrict any use of the information to criminally investigate or prosecute any alcohol or drug abuse patient.[facility] the event this information is protected by the Federal Confidentiality of Alcohol and Drug Abuse Patient Records regulations: The Federal rules restrict any use of the information to criminally investigate or prosecute any alcohol or drug abuse patient.[facility] Reason for Visit (unrecogniz ed section and content) Reason Comments Cough cough, ST, and irrit ated eyes x 1.5 weeks Reason Comments Chest Congestion Cough, ST x7 daysCon junctivitis bilateral x7 days Reason Comments Information Care Teams (unrecognized sec tion and content) Dress Operator Relationship Specialty Start Date End Date Yarelis Fitzpatrick DO PCP - General Internal Medicine 04/29/13 Dress Operator Relationship Specialty Start Date End Date [...] DO Attending Provider, Referring Pro vider Active Dress Operator Relationship Specialty Start Date End Date No Primary Care[place] [address] PCP - General Pediatrics 02/09/23 Team Status: Active Member Role Status Dates Dr. Yarelis Fitzpatrick , DO Primary Care Provider Active Dr. Rakesh Meeks , DO Referring Provider, Other Provide r Active Dr. Adrien Millard MD Attending Provider Active Team Status: Inactive Member Role Status Dates Dr. Yarelis Fitzpatrick DO Primary Care Provider, Referr ing Provider Active Yesenia Hahn FIGURE CLERK, FIGURE CLERK-C Attending Provider Active Team Status: Inactive Member Role Status Dates Dr. Yarelis Fitzpatrick , DO Primary Care Provider Active Yesenia Hahn FIGURE CLERK, FIGURE CLERK-C Attending Provider, Referrin g Provider Active Dress Operator Relationship Specialty Start Date End Date Yarelis Fitzpatrick DO PCP - General Internal Medicine 04/29/13 Dress Operator Relationship Specialty Start Date End Date No Primary Care[place] [address] PCP - General Pediatrics 02/09/23 Dress Operator Relationship Specialty Start Date End Date [...] 2024 End: August 27, 2024 Kimberly Jacobson FIGURE CLERK-C Attending Provider Active Start: August 27, 2024 End: August 27, 2024 Kimberly Jacobson NP-C Referring Provider Active Start: August 27, 2024 End: August 27, 2024 Team Status: Inactive Member Role Status Dates Dr. Yarelis Fitzpatrick DO Primary Care Provider Active Start: August 28, 2024 End: August 28, 2024 Kimberly Jacobson FIGURE CLERK-C Attending Provider Active Start: August 28, 2024 [...] 04, 2024 End: September 04, 2024 Kimberly Jacobson FIGURE CLERK-C Other Provider Active Star t: September 04, 2024 End: September 04, 2024 Team Status: Inactive Member Role Status Dates Dr. Yarelis Fitzpatrick DO Primary Care Provider Active Start: September 27, 2024 End: September 27, 2024 Patience Dle Real FIGURE CLERK-C Attending Provider Active Start: September 27, 2024 End: September 27, 2024 Patience Del Real FIGURE CLERK-C Referring Provider Active Start: September 27, 2024 End: September 27, 2024 Team Status: Inactive Member Role Status Dates Dr. Yarelis Fitzpatrick DO Primary Care Provider Active Start: October 15, 2024 End: October 15, 2024 Patience Del Real FIGURE CLERK-C Attending Provider Active Start: October 15, 2024 End: October 15, 2024 Patience Del Real FIGURE CLERK-C Referring Provider Active Start: October 15, 2024 [...] Inactive Member Role/Relationship Status Dates Dr. Yarelis Fiztpatrick DO Primary Care Provider Active Start: December [...] March 04, 2025 End: March 04, 2025 Team Status: Active Member Role/Relationship Status Dates Dr. Yarelis Fitzpatrick DO Primary care physician Active Team Status: Inactive Member Role/Relationship Status Dates Dr. Yarelis Fitzpatrick DO Primary care physician Active Start: January 30, 2025 End: January 30, 2025 Dr. Rajat Tarango MD Attending physician Active Start: January 30, 2025 End: January 30, 2025 Dr. Rajat Tarango MD Referring Provider Active Start: January 30, 2025 End: January 30, 2025 Team Status: Inactive Member Role/Relationship Status Dates Dr. Yarelis Fitzpatrick DO Primary care physician Active Start: March 04, 2025 End: March 04, 2025 Dr. Rajat Tarango MD Attending physician Active Start: March 04, 2025 End: March 04, 2025 Dr. Rajat Tarango MD Referring Provider Active Start: March 04, 2025 End: March 04, 2025 Team Status: Inactive Member Role/Relationship Status Dates Dr. Yarelis Fitzpatrick DO Primary care physician Active Start: April 28, 2025 End: April 28, 2025 Dr. Yarelis Fitzpatrick DO Attending physician Active Start: April 28, 2025 End: April 28, 2025 Dr. Yarelis Fitzpatrick DO Referring Provider Active Start: April 28, 2025 End: April 28, 2025 Goals (unrecognized section and content) Goals [...] BE BASED ON THE PRIMARY CLINICAL RECORDS. [facility] [employer] provides no warranty or guarantee of the accuracy or completeness of information in this document.
[2025-08-09 12:04] LABS: BUN 11 mg/dL (4-19)
== END | disposition home or self-care (01) ==
LOC: LAB 11:09
PROVIDERS: PCP Internal Medicine
DX: D83.9 Common variable immunodeficiency, unspecified (principal)
CPT/HCPCS: 36415; 82565; 84520